=== PATIENT | male | born 1940 | race Caucasian/White ===

== ENCOUNTER 2016-10-14 10:30 | Outpatient (RCR) | payer MEDICARE ==
--- OUTSIDE RECORDS SUMMARY | 2016-07-22 11:11 | XMS REPORT | Continuity of Care Document ---
Author Author [facility] Organization [facility] Address Unknown Phone Unavailable Care Team Providers Care Rodding Anode Worker Name Role Phone Watts, Rosalinda PCP [phone] Source Comments Some departments are not documenting in the electronic medical record. If you do not see the information that you expected, contact Release of Information in the Health Information Management department at [phone] for further assistance in locating additional records.[facility] Active Allergies and Adverse Reactions No Known Allergies Current Medications Prescription Sig. Disp. Refills Start End Date Status Date ondansetron (ZOFRAN) 4 mg Take 1 Tab by mouth every 30 Tab 06/06/20 Active tablet 6 hours as needed for 15 Nausea. rosuvastatin (CRESTOR) 10 Take 1 Tab by mouth 90 Tab 3 06/06/20 Active mg tablet daily. 15 albuterol (VENTOLIN HFA, Inhale 2 Puffs by mouth 3 Inhaler 3 06/06/20 Active PROAIR HFA) 90 every 6 hours as needed 15 mcg/actuation inhaler for Wheezing. fluticasone-salmeterol Inhale 1 Puff by mouth 3 Inhaler 3 06/06/20 Active (ADVAIR DISKUS) 250-50 twice daily. 15 mcg inhalation disk docusate (COLACE) 100 mg Take 1 Cap by mouth daily 180 Cap 3 06/06/20 Active capsule as needed for 15 Constipation. insulin aspart (NOVOLOG) Inject 0-14 Units into 3 box 3 06/06/20 Active 100 unit/mL flexPEN area(s) as directed 15 before meals and at bedtime. melatonin 5 mg tab Take 1 Tab by mouth at 06/06/20 Active bedtime daily. 15 metoclopramide HCl 1 Tab before meals and at 60 Tab 3 08/20/20 Active (REGLAN) 5 mg tablet bedtime. Take 1-2 tabs 15 before meals and at bedtime milk of magnesia (CONC) Take 10 mL by mouth every 06/06/20 Active 2,400 mg/10 mL oral 6 hours as needed. [address](+) Take 1 Cap by mouth twice 90 Cap 3 06/06/20 Active (PRILOSEC) 20 mg capsule daily. 15 polyethylene glycol 3350 Take 17 g by mouth daily 3 Bottle 3 06/06/20 Active (GLYCOLAX; MIRALAX) 17 as needed. 15 gram/dose powder saliva, synthetic Take 1 [place] by mouth or 06/06/20 Active (MOUTHKOTE) spra throat as directed as 15 Needed. sertraline (ZOLOFT) 50 mg Take 1 Tab by mouth at 90 Tab 3 06/06/20 Active tablet bedtime daily. 15 0.9 % SODIUM CHLORIDE Administer 5-20 mL 90 Syringe 0 06/06/20 Active (SODIUM CHLORIDE PF 0.9%) through vein FLUSH TID. 15 0.9 % flush oxyCODONE-acetaminophen Take 1-2 Tabs by mouth 30 Tab 0 06/06/20 Active (PERCOCET; ENDOCET; every 4 hours as needed 15 ROXICET) 5-325 mg tablet for Pain Earliest Fill Date: 06/06/15 insulin lispro(+) Inject 8 Units into Active (HUMALOG) 100 unit/mL area(s) as directed three injection times daily before meals. carvedilol (COREG) 3.125 Take 3.125 mg by mouth Active mg tablet twice daily with meals. lisinopril (PRINIVIL; Take 5 mg by mouth daily. Active ZESTRIL) 5 mg tablet terbinafine(+) (LAMISIL Apply to top of skin as Active AT) 1 % topical cream directed twice daily. methylphenidate (RITALIN; Take 5 mg by mouth twice Active METHYLIN) 5 mg tablet daily before meals mirtazapine (REMERON) 15 Take 15 mg by mouth at Active mg tablet bedtime daily. dronabinol (MARINOL) 2.5 Take 2.5 mg by mouth Active mg capsule twice daily. trimethoprim-sulfamethoxa Take 1 Tab by mouth three 12 Tab 3 07/05/20 Active zole (BACTRIM DS) 160-800 times weekly. 15 mg tablet acyclovir (ZOVIRAX) 200 Take 1 Cap by mouth 30 Cap 2 07/05/20 Active mg capsule daily. 15 methotrexate 2.5 mg Take 7 Tabs by mouth 21 Tab 0 07/09/20 Active tablet every Wednesday. 15 mercaptopurine Take 1.5 Tabs by mouth 20 Tab 0 07/06/20 Active (PURINETHOL) 50 mg tablet every 48 hours. 15 CYTOTOXIC Take on an empty stomach, at least 1 hour before or 2 hours after food. insulin glargine (LANTUS Inject 10 Units into 3 box 3 07/06/20 Active SOLOSTAR) 100 unit/mL (3 area(s) as directed at 15 mL) injection PEN bedtime daily. Restart 10 units Lantus on 07/06 Active Problems Problem Noted Date Cardiomyopathy (HCC) 07/02/2015 CKD (chronic kidney disease) 07/02/2015 Essential hypertension 07/02/2015 COPD (chronic obstructive pulmonary disease) ([facility]) 07/02/2015 ALL (acute lymphoblastic leukemia) ([facility]) 07/01/2015 Hypokalemia 05/18/2015 DIC (disseminated intravascular coagulation) ([facility]) 05/15/2015 IDDM (insulin dependent diabetes mellitus) ([facility]) 05/15/2015 Hypomagnesemia 05/15/2015 GERD (gastroesophageal reflux disease) 05/15/2015 Constipation 05/15/2015 Admission for antineoplastic chemotherapy 05/15/2015 Bilateral edema of lower extremity 05/15/2015 Acute leukemia ([facility]) 05/09/2015 Anemia 05/09/2015 Resolved Problems Problem Noted Date Resolved Date Pancytopenia ([facility]) 05/09/2015 07/02/2015 Social History Tobacco Use Types Packs/Day Years Used Date Former Smoker Cigarettes Quit: 10/18/1974 Smokeless Tobacco: Never Used Alcohol Use Drinks/Week oz/Week Comments Yes moderate Last Filed Vital Signs Vital Sign Reading Time Taken Blood Pressure 108/58 07/05/2015 11:15 AM CDT Pulse 74 07/05/2015 11:15 AM CDT Temperature 36.6 C (97.8 F) 07/05/2015 11:15 AM CDT Respiratory Rate - - Height 1.803 m (5' 10.98") 07/01/2015 4:33 PM CDT Weight 64.411 kg (142 lb) 07/05/2015 3:00 AM CDT Body Mass Index 19.81 07/05/2015 3:00 AM CDT Oxygen Saturation 99% 07/05/2015 11:15 AM CDT Plan of Care Health Maintenance Due Date Last Done Comments Physical (Comprehensive) 1947 Exam Pertussis Vaccine 1951 Tetanus Vaccine 1957 Colorectal Cancer 1990 Screening Shingles Vaccine 2000 Prevnar/Pneumovax (#1) 2005 Influenza Vaccine 06/18/2016 Results from Last 3 Months Not on file
[2016-07-22 11:55] LABS: BASOPHILS % (AUTO) 0 % (0-10); EOSINOPHILS # (AUTO) 0.1 10^3/uL (0.0-0.3); EOSINOPHILS % (AUTO) 1 % (0-10); LYMPHOCYTES # (AUTO) 0.8 X 10^3 (1.0-4.0); LYMPHOCYTES % (AUTO) 15 % (12-44); MEAN CORPUSCULAR HEMOGLOBIN 34 PG (25-34); MEAN CORPUSCULAR HGB CONC 35 G/DL (32-36); MEAN CORPUSCULAR VOLUME 97 FL (80-99); MEAN PLATELET VOLUME 8.6 FL (7.4-10.4); MONOCYTES # (AUTO) 0.8 X 10^3 (0.0-1.0); MONOCYTES % (AUTO) 17 % (0-12); NEUTROPHILS # (AUTO) 3.3 X 10^3 (1.8-7.8); NEUTROPHILS % (AUTO) 66 % (42-75); PLATELET COUNT 151 10^3/uL (130-400); RED BLOOD COUNT 3.46 10^6/uL (4.35-5.85); RED CELL DISTRIBUTION WIDTH 15.2 % (10.0-14.5)
[2016-07-22 12:29] LABS: ANION GAP 12 MMOL/L (5-14); BLOOD UREA NITROGEN 17 MG/DL (7-18); BUN/CREATININE RATIO 16; CARBON DIOXIDE 21 MMOL/L (21-32); CHLORIDE 105 MMOL/L (98-107); CREATININE SERUM 1.07 MG/DL (0.60-1.30); GFR ESTIMATED > 60; GLUCOSE 175 MG/DL (70-105); POTASSIUM 4.4 MMOL/L (3.6-5.0); SODIUM 138 MMOL/L (135-145)
[2016-07-29 09:21] LABS: BASOPHILS % (AUTO) 0 % (0-10); EOSINOPHILS # (AUTO) 0.1 10^3/uL (0.0-0.3); EOSINOPHILS % (AUTO) 2 % (0-10); LYMPHOCYTES # (AUTO) 0.8 X 10^3 (1.0-4.0); LYMPHOCYTES % (AUTO) 21 % (12-44); MEAN CORPUSCULAR HEMOGLOBIN 34 PG (25-34); MEAN CORPUSCULAR HGB CONC 35 G/DL (32-36); MEAN CORPUSCULAR VOLUME 97 FL (80-99); MEAN PLATELET VOLUME 9.3 FL (7.4-10.4); MONOCYTES # (AUTO) 0.7 X 10^3 (0.0-1.0); MONOCYTES % (AUTO) 19 % (0-12); NEUTROPHILS # (AUTO) 2.2 X 10^3 (1.8-7.8); NEUTROPHILS % (AUTO) 58 % (42-75); PLATELET COUNT 156 10^3/uL (130-400); RED BLOOD COUNT 3.46 10^6/uL (4.35-5.85); RED CELL DISTRIBUTION WIDTH 14.9 % (10.0-14.5); WHITE BLOOD COUNT 3.8 10^3/uL (4.3-11.0)
[2016-07-29 09:38] LABS: ALANINE AMINOTRANSFERASE 18 U/L (0-55); ALBUMIN 3.9 G/DL (3.2-4.5); ANION GAP 13 MMOL/L (5-14); ASPARTATE AMINO TRANSFERASE 15 U/L (5-34); BILIRUBIN,TOTAL 0.5 MG/DL (0.1-1.0); BLOOD UREA NITROGEN 16 MG/DL (7-18); BUN/CREATININE RATIO 14; CALCIUM 8.8 MG/DL (8.5-10.1); CARBON DIOXIDE 19 MMOL/L (21-32); CHLORIDE 104 MMOL/L (98-107); CREATININE SERUM 1.12 MG/DL (0.60-1.30); GFR ESTIMATED > 60; GLUCOSE 279 MG/DL (70-105); LACTATE DEHYDROGENASE 178 U/L (125-220); POTASSIUM 4.2 MMOL/L (3.6-5.0); SODIUM 136 MMOL/L (135-145); TOTAL PROTEIN 5.8 G/DL (6.4-8.2)
[2016-08-05 10:11] LABS: BASOPHILS % (AUTO) 0 % (0-10); EOSINOPHILS # (AUTO) 0.1 10^3/uL (0.0-0.3); EOSINOPHILS % (AUTO) 2 % (0-10); LYMPHOCYTES # (AUTO) 0.8 X 10^3 (1.0-4.0); LYMPHOCYTES % (AUTO) 11 % (12-44); MEAN CORPUSCULAR HEMOGLOBIN 34 PG (25-34); MEAN CORPUSCULAR HGB CONC 35 G/DL (32-36); MEAN CORPUSCULAR VOLUME 97 FL (80-99); MEAN PLATELET VOLUME 9.2 FL (7.4-10.4); MONOCYTES # (AUTO) 1.2 X 10^3 (0.0-1.0); MONOCYTES % (AUTO) 17 % (0-12); NEUTROPHILS # (AUTO) 4.8 X 10^3 (1.8-7.8); NEUTROPHILS % (AUTO) 70 % (42-75); PLATELET COUNT 175 10^3/uL (130-400); RED BLOOD COUNT 3.49 10^6/uL (4.35-5.85); WHITE BLOOD COUNT 6.8 10^3/uL (4.3-11.0)
[2016-08-05 11:17] LABS: ANION GAP 4 MMOL/L (5-14); BLOOD UREA NITROGEN 21 MG/DL (7-18); BUN/CREATININE RATIO 19; CALCIUM 8.5 MG/DL (8.5-10.1); CARBON DIOXIDE 30 MMOL/L (21-32); CHLORIDE 102 MMOL/L (98-107); GFR ESTIMATED > 60; GLUCOSE 309 MG/DL (70-105); POTASSIUM 4.6 MMOL/L (3.6-5.0); SODIUM 136 MMOL/L (135-145)
[2016-08-12 10:15] LABS: BASOPHILS % (AUTO) 0 % (0-10); EOSINOPHILS # (AUTO) 0.1 10^3/uL (0.0-0.3); EOSINOPHILS % (AUTO) 1 % (0-10); LYMPHOCYTES # (AUTO) 0.9 X 10^3 (1.0-4.0); LYMPHOCYTES % (AUTO) 14 % (12-44); MEAN CORPUSCULAR HEMOGLOBIN 34 PG (25-34); MEAN CORPUSCULAR HGB CONC 35 G/DL (32-36); MEAN CORPUSCULAR VOLUME 97 FL (80-99); MONOCYTES % (AUTO) 16 % (0-12); NEUTROPHILS # (AUTO) 4.5 X 10^3 (1.8-7.8); NEUTROPHILS % (AUTO) 69 % (42-75); PLATELET COUNT 157 10^3/uL (130-400); RED BLOOD COUNT 3.49 10^6/uL (4.35-5.85); RED CELL DISTRIBUTION WIDTH 15.1 % (10.0-14.5); WHITE BLOOD COUNT 6.4 10^3/uL (4.3-11.0)
[2016-08-12 10:43] LABS: ANION GAP 9 MMOL/L (5-14); BLOOD UREA NITROGEN 16 MG/DL (7-18); BUN/CREATININE RATIO 15; CALCIUM 8.8 MG/DL (8.5-10.1); CARBON DIOXIDE 26 MMOL/L (21-32); CHLORIDE 104 MMOL/L (98-107); CREATININE SERUM 1.08 MG/DL (0.60-1.30); GFR ESTIMATED > 60; GLUCOSE 258 MG/DL (70-105); POTASSIUM 4.6 MMOL/L (3.6-5.0); SODIUM 139 MMOL/L (135-145)
[2016-08-19 10:46] LABS: BASOPHILS % (AUTO) 0 % (0-10); EOSINOPHILS # (AUTO) 0.1 10^3/uL (0.0-0.3); EOSINOPHILS % (AUTO) 1 % (0-10); LYMPHOCYTES % (AUTO) 18 % (12-44); MEAN CORPUSCULAR HEMOGLOBIN 34 PG (25-34); MEAN CORPUSCULAR HGB CONC 35 G/DL (32-36); MEAN CORPUSCULAR VOLUME 97 FL (80-99); MEAN PLATELET VOLUME 8.7 FL (7.4-10.4); MONOCYTES % (AUTO) 17 % (0-12); NEUTROPHILS # (AUTO) 3.6 X 10^3 (1.8-7.8); NEUTROPHILS % (AUTO) 64 % (42-75); PLATELET COUNT 163 10^3/uL (130-400); RED BLOOD COUNT 3.51 10^6/uL (4.35-5.85); RED CELL DISTRIBUTION WIDTH 15.1 % (10.0-14.5); WHITE BLOOD COUNT 5.6 10^3/uL (4.3-11.0)
[2016-08-19 11:19] LABS: ANION GAP 6 MMOL/L (5-14); BLOOD UREA NITROGEN 19 MG/DL (7-18); BUN/CREATININE RATIO 17; CALCIUM 8.8 MG/DL (8.5-10.1); CARBON DIOXIDE 27 MMOL/L (21-32); CHLORIDE 106 MMOL/L (98-107); GFR ESTIMATED > 60; GLUCOSE 151 MG/DL (70-105); POTASSIUM 4.6 MMOL/L (3.6-5.0); SODIUM 139 MMOL/L (135-145)
[2016-08-26 14:34] LABS: BASOPHILS % (AUTO) 0 % (0-10); EOSINOPHILS # (AUTO) 0.1 10^3/uL (0.0-0.3); EOSINOPHILS % (AUTO) 3 % (0-10); LYMPHOCYTES # (AUTO) 1.1 X 10^3 (1.0-4.0); LYMPHOCYTES % (AUTO) 19 % (12-44); MEAN CORPUSCULAR HEMOGLOBIN 34 PG (25-34); MEAN CORPUSCULAR HGB CONC 35 G/DL (32-36); MEAN CORPUSCULAR VOLUME 96 FL (80-99); MEAN PLATELET VOLUME 9.1 FL (7.4-10.4); MONOCYTES # (AUTO) 0.8 X 10^3 (0.0-1.0); MONOCYTES % (AUTO) 14 % (0-12); NEUTROPHILS # (AUTO) 3.4 X 10^3 (1.8-7.8); NEUTROPHILS % (AUTO) 64 % (42-75); PLATELET COUNT 174 10^3/uL (130-400); RED BLOOD COUNT 3.34 10^6/uL (4.35-5.85); WHITE BLOOD COUNT 5.4 10^3/uL (4.3-11.0)
[2016-08-26 15:08] LABS: ALANINE AMINOTRANSFERASE 21 U/L (0-55); ANION GAP 9 MMOL/L (5-14); ASPARTATE AMINO TRANSFERASE 19 U/L (5-34); BILIRUBIN,TOTAL 0.5 MG/DL (0.1-1.0); BLOOD UREA NITROGEN 17 MG/DL (7-18); BUN/CREATININE RATIO 17; CALCIUM 8.5 MG/DL (8.5-10.1); CARBON DIOXIDE 25 MMOL/L (21-32); CHLORIDE 105 MMOL/L (98-107); GFR ESTIMATED > 60; GLUCOSE 109 MG/DL (70-105); LACTATE DEHYDROGENASE 203 U/L (125-220); POTASSIUM 4.1 MMOL/L (3.6-5.0); SODIUM 139 MMOL/L (135-145); TOTAL PROTEIN 6.2 G/DL (6.4-8.2)
[2016-09-02 10:26] LABS: BASOPHILS % (AUTO) 0 % (0-10); EOSINOPHILS # (AUTO) 0.1 10^3/uL (0.0-0.3); EOSINOPHILS % (AUTO) 2 % (0-10); LYMPHOCYTES # (AUTO) 0.7 X 10^3 (1.0-4.0); LYMPHOCYTES % (AUTO) 9 % (12-44); MEAN CORPUSCULAR HEMOGLOBIN 34 PG (25-34); MEAN CORPUSCULAR HGB CONC 36 G/DL (32-36); MEAN CORPUSCULAR VOLUME 95 FL (80-99); MEAN PLATELET VOLUME 8.7 FL (7.4-10.4); MONOCYTES % (AUTO) 14 % (0-12); NEUTROPHILS # (AUTO) 5.2 X 10^3 (1.8-7.8); NEUTROPHILS % (AUTO) 75 % (42-75); PLATELET COUNT 196 10^3/uL (130-400); RED BLOOD COUNT 3.48 10^6/uL (4.35-5.85); RED CELL DISTRIBUTION WIDTH 14.7 % (10.0-14.5)
[2016-09-02 10:50] LABS: ANION GAP 11 MMOL/L (5-14); BLOOD UREA NITROGEN 14 MG/DL (7-18); BUN/CREATININE RATIO 14; CALCIUM 9.1 MG/DL (8.5-10.1); CARBON DIOXIDE 24 MMOL/L (21-32); CHLORIDE 103 MMOL/L (98-107); CREATININE SERUM 1.02 MG/DL (0.60-1.30); GFR ESTIMATED > 60; GLUCOSE 198 MG/DL (70-105); POTASSIUM 4.2 MMOL/L (3.6-5.0); SODIUM 138 MMOL/L (135-145)
[2016-09-09 10:15] LABS: BASOPHILS % (AUTO) 0 % (0-10); EOSINOPHILS % (AUTO) 1 % (0-10); LYMPHOCYTES # (AUTO) 0.6 X 10^3 (1.0-4.0); LYMPHOCYTES % (AUTO) 15 % (12-44); MEAN CORPUSCULAR HEMOGLOBIN 33 PG (25-34); MEAN CORPUSCULAR HGB CONC 34 G/DL (32-36); MEAN CORPUSCULAR VOLUME 97 FL (80-99); MEAN PLATELET VOLUME 8.6 FL (7.4-10.4); MONOCYTES # (AUTO) 0.8 X 10^3 (0.0-1.0); MONOCYTES % (AUTO) 21 % (0-12); NEUTROPHILS # (AUTO) 2.4 X 10^3 (1.8-7.8); NEUTROPHILS % (AUTO) 63 % (42-75); PLATELET COUNT 154 10^3/uL (130-400); RED BLOOD COUNT 3.37 10^6/uL (4.35-5.85); RED CELL DISTRIBUTION WIDTH 15.1 % (10.0-14.5); WHITE BLOOD COUNT 3.9 10^3/uL (4.3-11.0)
[2016-09-09 10:36] LABS: CALCIUM 8.9 MG/DL (8.5-10.1); CREATININE SERUM 1.18 MG/DL (0.60-1.30); POTASSIUM 3.9 MMOL/L (3.6-5.0)
[2016-09-23 11:11] LABS: BASOPHILS % (AUTO) 0 % (0-10); EOSINOPHILS # (AUTO) 0.1 10^3/uL (0.0-0.3); EOSINOPHILS % (AUTO) 2 % (0-10); LYMPHOCYTES # (AUTO) 0.5 X 10^3 (1.0-4.0); LYMPHOCYTES % (AUTO) 9 % (12-44); MEAN CORPUSCULAR HEMOGLOBIN 33 PG (25-34); MEAN CORPUSCULAR HGB CONC 35 G/DL (32-36); MEAN CORPUSCULAR VOLUME 96 FL (80-99); MEAN PLATELET VOLUME 8.5 FL (7.4-10.4); MONOCYTES # (AUTO) 0.7 X 10^3 (0.0-1.0); MONOCYTES % (AUTO) 12 % (0-12); NEUTROPHILS # (AUTO) 4.7 X 10^3 (1.8-7.8); NEUTROPHILS % (AUTO) 77 % (42-75); PLATELET COUNT 210 10^3/uL (130-400); RED BLOOD COUNT 3.19 10^6/uL (4.35-5.85); WHITE BLOOD COUNT 6.1 10^3/uL (4.3-11.0)
[2016-09-23 11:43] LABS: ALANINE AMINOTRANSFERASE 20 U/L (0-55); ALBUMIN 3.9 G/DL (3.2-4.5); ANION GAP 8 MMOL/L (5-14); ASPARTATE AMINO TRANSFERASE 17 U/L (5-34); BILIRUBIN,TOTAL 0.4 MG/DL (0.1-1.0); BLOOD UREA NITROGEN 11 MG/DL (7-18); BUN/CREATININE RATIO 12; CALCIUM 8.6 MG/DL (8.5-10.1); CARBON DIOXIDE 21 MMOL/L (21-32); CHLORIDE 107 MMOL/L (98-107); CREATININE SERUM 0.92 MG/DL (0.60-1.30); GFR ESTIMATED > 60; GLUCOSE 224 MG/DL (70-105); LACTATE DEHYDROGENASE 220 U/L (125-220); POTASSIUM 4.2 MMOL/L (3.6-5.0); SODIUM 136 MMOL/L (135-145); TOTAL PROTEIN 5.8 G/DL (6.4-8.2)
[2016-09-29 10:29] LABS: BASOPHILS % (AUTO) 0 % (0-10); EOSINOPHILS # (AUTO) 0.1 10^3/uL (0.0-0.3); EOSINOPHILS % (AUTO) 1 % (0-10); LYMPHOCYTES # (AUTO) 0.7 X 10^3 (1.0-4.0); LYMPHOCYTES % (AUTO) 10 % (12-44); MEAN CORPUSCULAR HEMOGLOBIN 33 PG (25-34); MEAN CORPUSCULAR HGB CONC 35 G/DL (32-36); MEAN CORPUSCULAR VOLUME 96 FL (80-99); MONOCYTES % (AUTO) 14 % (0-12); NEUTROPHILS # (AUTO) 5.5 X 10^3 (1.8-7.8); NEUTROPHILS % (AUTO) 75 % (42-75); PLATELET COUNT 198 10^3/uL (130-400); RED BLOOD COUNT 3.36 10^6/uL (4.35-5.85); RED CELL DISTRIBUTION WIDTH 14.5 % (10.0-14.5); WHITE BLOOD COUNT 7.3 10^3/uL (4.3-11.0)
[2016-09-29 11:43] LABS: ANION GAP 9 MMOL/L (5-14); BLOOD UREA NITROGEN 20 MG/DL (7-18); BUN/CREATININE RATIO 20; CALCIUM 8.6 MG/DL (8.5-10.1); CARBON DIOXIDE 24 MMOL/L (21-32); CHLORIDE 102 MMOL/L (98-107); GFR ESTIMATED > 60; GLUCOSE 306 MG/DL (70-105); POTASSIUM 4.3 MMOL/L (3.6-5.0); SODIUM 135 MMOL/L (135-145)
[2016-10-07 14:02] LABS: BASOPHILS % (AUTO) 0 % (0-10); EOSINOPHILS # (AUTO) 0.1 10^3/uL (0.0-0.3); EOSINOPHILS % (AUTO) 1 % (0-10); LYMPHOCYTES % (AUTO) 13 % (12-44); MEAN CORPUSCULAR HEMOGLOBIN 33 PG (25-34); MEAN CORPUSCULAR HGB CONC 34 G/DL (32-36); MEAN CORPUSCULAR VOLUME 97 FL (80-99); MONOCYTES # (AUTO) 0.8 X 10^3 (0.0-1.0); MONOCYTES % (AUTO) 10 % (0-12); NEUTROPHILS # (AUTO) 5.7 X 10^3 (1.8-7.8); NEUTROPHILS % (AUTO) 75 % (42-75); PLATELET COUNT 156 10^3/uL (130-400); RED BLOOD COUNT 3.43 10^6/uL (4.35-5.85); RED CELL DISTRIBUTION WIDTH 15.3 % (10.0-14.5); WHITE BLOOD COUNT 7.6 10^3/uL (4.3-11.0)
[2016-10-07 14:59] LABS: ANION GAP 9 MMOL/L (5-14); BLOOD UREA NITROGEN 15 MG/DL (7-18); BUN/CREATININE RATIO 14; CALCIUM 8.8 MG/DL (8.5-10.1); CARBON DIOXIDE 24 MMOL/L (21-32); CHLORIDE 104 MMOL/L (98-107); CREATININE SERUM 1.07 MG/DL (0.60-1.30); GFR ESTIMATED > 60; GLUCOSE 197 MG/DL (70-105); POTASSIUM 4.7 MMOL/L (3.6-5.0); SODIUM 137 MMOL/L (135-145)
[~2016-10-14] VITALS: Ht 180.3 cm; Wt 81.2 kg
[~2016-10-14 10:30] MED LIST: ACYC200C PO; ADV1DS IH; ALBU0.632 IH; ASP325TEC PO; ASP81TEC PO; ASPI-892 PO; ASPI-983 PO; ATOR10TA66 PO; CARV3.12 PO; CARV3.122 PO; CARV6.252 PO; CHOL10003 PO; DOCU-143 PO; DRON2.5C10 PO; FERR-57 PO; FERR256T PO; FEXO-46 PO; FLUT12AE4 IH; FLUT1DIS26 IH; FLUT1DIS3 IH; GABA-486 PO; GUAI473L8 PO; HYDR-34 PO; INSASP10V SQ; INSU100C7 SQ; INSU100I10 SQ; INSU100I14 SQ; INSU100I23 SQ; INSU100V16 SC; INSU100V6 SQ; IPRA3AMP IH; Insulin Human Lispro SC; LISI-556 PO; LOSA25TA21 PO; LYTE60SP MM; MAGN800O PO; MELA1TAB15 PO; MELO-195 PO; MENT71OI TOP; MERC50TA PO; METF-380 PO; METF1000 PO; METH2.5T PO; METH5TAB4 PO; METH5TAB86 PO; METO5TAB2 PO; METO5TAB79 PO; MIRT15TA8 PO; MONT10TA24 PO; MUPI22OI TP; MUPI22OI29 TOP; NF-METANX PO; NFIPRATRNS NSEACH; NORM2DIS3 IV; NORM2DIS3 IVF; NS (IVPB) CANCER CENTER 250 ML IV SCH; NS IV 1000 ML 1,000 ML ONE; NS IV SCH; OMEG1CAP PO; OMEP20CA12 PO; OMEP40CA36 PO; ONDA4TAB11 PO; ONDA4TAB8 PO; ONDN4T PO; OXYC-197 PO; Oxycodone Hcl/Acetaminophen PO; PANT40TA3 PO; POLY17PO6 PO; PRD20T PO; RAMI10CA PO; RMP5C PO; ROSU10TA PO; ROSU10TA12 PO; RT-ALBUINH IH; SERT100T8 PO; SERT50TA9 PO; SUCR1TAB PO; SULF-222 PO; Sertraline Hcl PO; TERB12CR3 TP; TICA90TA PO; Ticagrelor PO; VANCOMYCIN PO; VINCRISTINE SULFATE IV SCH; ZLP5T PO; Zolpidem Tartrate PO
[2016-10-14 11:12] LABS: BASOPHILS % (AUTO) 0 % (0-10); EOSINOPHILS # (AUTO) 0.1 10^3/uL (0.0-0.3); EOSINOPHILS % (AUTO) 2 % (0-10); LYMPHOCYTES # (AUTO) 0.7 X 10^3 (1.0-4.0); LYMPHOCYTES % (AUTO) 13 % (12-44); MEAN CORPUSCULAR HEMOGLOBIN 33 PG (25-34); MEAN CORPUSCULAR HGB CONC 34 G/DL (32-36); MEAN CORPUSCULAR VOLUME 98 FL (80-99); MEAN PLATELET VOLUME 8.4 FL (7.4-10.4); MONOCYTES % (AUTO) 17 % (0-12); NEUTROPHILS # (AUTO) 3.9 X 10^3 (1.8-7.8); NEUTROPHILS % (AUTO) 69 % (42-75); PLATELET COUNT 176 10^3/uL (130-400); RED BLOOD COUNT 3.36 10^6/uL (4.35-5.85); RED CELL DISTRIBUTION WIDTH 15.5 % (10.0-14.5); WHITE BLOOD COUNT 5.6 10^3/uL (4.3-11.0)
[2016-10-14 12:12] LABS: ANION GAP 10 MMOL/L (5-14); BLOOD UREA NITROGEN 12 MG/DL (7-18); BUN/CREATININE RATIO 12; CALCIUM 8.5 MG/DL (8.5-10.1); CARBON DIOXIDE 23 MMOL/L (21-32); CHLORIDE 102 MMOL/L (98-107); CREATININE SERUM 1.01 MG/DL (0.60-1.30); GFR ESTIMATED > 60; GLUCOSE 197 MG/DL (70-105); POTASSIUM 4.4 MMOL/L (3.6-5.0); SODIUM 135 MMOL/L (135-145)
[2016-12-10] MEDS ORDERED: CHOL4PAC3 PO (10:06)
[2016-12-10] MEDS ORDERED: CEFD300C3 PO (10:06)
== END 2016-10-20 | disposition home or self-care (01) ==
LOC: ONC 10:30
PROVIDERS: ATTEND Internal Medicine Hematology & Oncology
DX: Z51.11 Encounter for antineoplastic chemotherapy (principal); C91.00 Acute lymphoblastic leukemia not having achieved remission; D50.9 Iron deficiency anemia, unspecified; Z79.899 Other long term (current) drug therapy
CPT/HCPCS: 36415; 36591; 80048; 80053; 80061; 82043; 83036; 83615; 84439; 84443; 85025; 96409; 99213

== ENCOUNTER 2016-12-03 11:03 | Observation (INO) | payer MEDICARE ==
[~2016-12-03] VITALS: Ht 180.3 cm; Wt 77.1 kg
[~2016-12-03 11:03] MED LIST changes: -NS (IVPB) CANCER CENTER 250 ML IV SCH; -NS IV 1000 ML 1,000 ML ONE; -NS IV SCH; -VINCRISTINE SULFATE IV SCH
[2016-12-03 11:10] VITALS: BP 131/69
--- NOTE | 2016-12-03 11:11 | Short Stay Summary-Hospitalist ---
HPI History of Present Illness: HPI/Chief Complaint CC: Severe cough with wheezing HPI: This is a 76-year-old white male with past medical history of CAD previous bypass and 2004, acute leukemia managed by [facility] nava and Dr. Perez in remission since June 2016 and diabetes mellitus insulin-dependent with COPD the presents to the hospital as a direct admission due to severe coughing and fatigue from the constant cough along with wheezing. He began feeling an upper respiratory illness last Wednesday accompanied with low-grade fever and cough but overall was feeling well except for progressive weakness that resulted in a few falls at home without injury. He was assessed to have mild hypotension likely causing orthostasis along with slight wheezing on exam. He was placed on Advair twice daily along with nebulizer treatments 4 times a day and encouraged by mouth intake to prevent dehydration. He denies any shortness of breath and denied any chest pain. 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) Smoking Status: Former Smoker Former smoker/When Quit: Jul 26, 1985 Recent Hopitalizations: No Immunizations Up To Date Tetanus Booster (TDap): Less than 5yrs Date of Pneumonia Vaccine: Apr 18, 2013 Date of Influenza Vaccine: Jul 29, 2016 Seasonal Allergies Seasonal Allergies: No Surgeries HX Surgeries: Yes (TRIPLE BYPASS, HEART ABLATION, HERNIA REPAIR 05/01 strangulated, LYMPHECTOMY) Surgeries: Abdominal, CABG, Gallbladder, Open Heart Surgery Respiratory Hx Respiratory Disorders: Yes (COPD mild) Respiratory Disorders: COPD, Pneumonia Cardiovascular Hx Cardiovascular Disorders: Yes (CABG, ABLATION, TRPL BYPASS) Cardiac Disorders: Atrial Fibrillation, Coronary Artery Disease, Heart Attack, High Cholesterol, Hypertension Neurological Hx Neurological Disorders: Yes Neurological Disorders: Neuropathy Reproductive System Hx Reproductive Disorders: No Sexually Transmitted Disease: No HIV/AIDS: No Genitourinary Hx Genitourinary Disorders: Yes Genitourinary Disorders: Prostate Problems, Renal Failure Gastrointestinal Hx Gastrointestinal Disorders: Yes Gastrointestinal Disorders: Gastroesophageal Reflux, Gastrointestinal Bleed Musculoskeletal Hx Musculoskeletal Disorders: Yes Musculoskeletal Disorders: Degenerate Disk Disease, Arthritis Endocrine Hx Endocrine Disorders: Yes Endocrine Disorders: Diabetes, Insulin dep HEENT HX ENT Disorders: No Cancer Hx Cancer: Yes (ALL RECEIVED CHEMO AT [facility] -3 WEEKS AGO LAST ONE) Cancer: Leukemia, Skin Psychosocial Hx Psychiatric Problems: No Integumentary HX Skin/Integumentary Disorder: Yes (SKIN CANCER REMOVED) Blood Transfusions Hx Blood Disorders: Yes (LEUKEMIA) Adverse Reaction to a Blood Tr: No Family Medical History Significant Family History: Heart Disease, CAD Over 55 Years Old, Diabetes, Hypertension, Vascular Disease Family Hx: Cardiovascular disease G8 BROTHER Diabetes mellitus 19 MOTHER G8 BROTHER Hypertension 19 MOTHER Review of Systems Constitutional: see HPI malaise weakness EENTM: no symptoms reported Respiratory: cough wheezing Cardiovascular: no symptoms reported Gastrointestinal: no symptoms reported Genitourinary: no symptoms reported Musculoskeletal: no symptoms reported Skin: no symptoms reported Psychiatric/Neurological: No Symptoms Reported All Other Systems Reviewed Negative Unless Noted: Yes Physical Exam Physical Exam Vital Signs Vital Sign - Last 12Hours 12/03/16 11:46 Pulse Ox 92 O2 Flow Rate 1.00 Capillary Refill : General Appearance: No Apparent Distress WD/WN Chronically ill Thin Eyes: Bilateral Eye Normal Inspection, Bilateral Eye PERRL HEENT: PERRL/EOMI Normal ENT Inspection Pharynx Normal Neck: Full Range of Motion Normal Inspection Non Tender Supple Carotid Bruit Respiratory: Chest Non Tender No Accessory Muscle Use No Respiratory Distress Decreased Breath Sounds Wheezing (bilateral lower lobes) Cardiovascular: Regular Rate, Rhythm No Edema No Gallop No JVD No Murmur Normal Peripheral Pulses Gastrointestinal: Normal Bowel Sounds No Organomegaly No Pulsatile Mass Non Tender Soft Back: Normal Inspection No CVA Tenderness No Vertebral Tenderness Extremity: Normal Capillary Refill Normal Inspection Normal Range of Motion Non Tender No Calf Tenderness No Pedal Edema Neurologic/Psychiatric: Alert Oriented x3 No Motor/Sensory Deficits Normal Mood/Affect Skin: Normal Color Warm/Dry Lymphatic: No Adenopathy Short Stay Diagnosis Discharge Diagnosis-Short Stay Admission Diagnosis Assessment: Exacerbation of COPD with wheezing and constant cough with resultant fatigue and weakness Mild hypotension due to dehydration much improved today Acute leukemia in remission since June [address] Perez and [facility] CAD previous bypass and [address] Foreman Diabetes mellitus insulin-dependent out of control due to steroid use currently Hypertension Hyperlipidemia History of skin cancer Final Discharge Diagnosis Assessment: Exacerbation of COPD with wheezing and constant cough with resultant fatigue and weakness Mild hypotension due to dehydration much improved today Acute leukemia in remission since June [address] Perez and [facility] CAD previous bypass and [address] Foreman Diabetes mellitus insulin-dependent out of control due to steroid use currently Hypertension Hyperlipidemia History of skin cancer Conclusion Plan Check chest x-ray IV steroids Insulin Check labs including troponin and BNP Monitor closely Nebulizer treatments Oxygen supplementation ROSALINDA ARENAS DO Dec 03, 2016 11:11
[2016-12-03] MEDS: RT-BUDESONIDE NEBS 0.5 MG/2ML (PULMICORT) AMP INH SCH ×2 (11:15→19:01)
[2016-12-03] MEDS ORDERED: BENZONATATE 100 MG (TESSALON) CAPSULE PO SCH ×2 (11:15→13:00)
--- OUTSIDE RECORDS SUMMARY | 2016-12-03 11:21 | XMS REPORT | Continuity of Care Document ---
Author Author [facility] Organization [facility] Address Unknown Phone Unavailable Care Team Providers Care Breaker Machine Tender Name Role Phone Watts, Rosalinda PCP [phone] Source Comments Some departments are not documenting in the electronic medical record. If you do not see the information that you expected, contact Release of Information in the Health Information Management department at [phone] for further assistance in locating additional records.[facility] Active Allergies and Adverse Reactions No Known [...] 15 gram/dose powder saliva, synthetic Take 1 [place] by mouth or 06/06/20 Active (MOUTHKOTE) spra [...] hypertension 07/02/2015 COPD (chronic obstructive pulmonary disease) ([facility]) 07/02/2015 ALL (acute lymphoblastic leukemia) ([facility]) 07/01/2015 Hypokalemia 05/18/2015 DIC (disseminated intravascular coagulation) ([facility]) 05/15/2015 IDDM (insulin dependent diabetes mellitus) ([facility]) 05/15/2015 Hypomagnesemia 05/15/2015 GERD (gastroesophageal reflux disease) 05/15/2015 Constipation 05/15/2015 Admission for antineoplastic chemotherapy 05/15/2015 Bilateral edema of lower extremity 05/15/2015 Acute leukemia ([facility]) 05/09/2015 Anemia 05/09/2015 Resolved Problems Problem Noted Date Resolved Date Pancytopenia ([facility]) 05/09/2015 07/02/2015 Social History Tobacco Use [...]
[2016-12-03] MEDS: RT-ALBUTEROL/IPRATROPIUM 3 ML (DUONEB) VIAL INH SCH ×4 (11:41→22:47)
[2016-12-03] MEDS ORDERED: methylPREDNISolone 40 MG/ML (Solu-MEDROL) VIAL IV SCH (12:00)
[2016-12-03] MEDS: OSELTAMIVIR 75 MG (TAMIFLU) BOX OF 10 PO SCH ×2 (12:31→21:15)
[2016-12-03 12:42] LABS: BASOPHILS % (AUTO) 0 % (0-10); EOSINOPHILS % (AUTO) 0 % (0-10); LYMPHOCYTES # (AUTO) 0.5 X 10^3 (1.0-4.0); LYMPHOCYTES % (AUTO) 8 % (12-44); MEAN CORPUSCULAR HEMOGLOBIN 34 PG (25-34); MEAN CORPUSCULAR HGB CONC 35 G/DL (32-36); MEAN CORPUSCULAR VOLUME 96 FL (80-99); MEAN PLATELET VOLUME 9.5 FL (7.4-10.4); MONOCYTES # (AUTO) 0.2 X 10^3 (0.0-1.0); MONOCYTES % (AUTO) 3 % (0-12); NEUTROPHILS # (AUTO) 5.1 X 10^3 (1.8-7.8); NEUTROPHILS % (AUTO) 89 % (42-75); PLATELET COUNT 113 10^3/uL (130-400); RED BLOOD COUNT 3.15 10^6/uL (4.35-5.85); RED CELL DISTRIBUTION WIDTH 14.7 % (10.0-14.5); WHITE BLOOD COUNT 5.7 10^3/uL (4.3-11.0)
[2016-12-03] MEDS ORDERED: ONDANSETRON 4 MG (ZOFRAN) ORAL DISSOLVE TAB PO PRN (12:45)
[2016-12-03] MEDS ORDERED: methylPREDNISolone 125 MG (Solu-MEDROL) VIAL IV SCH (12:45)
[2016-12-03 12:59] LABS: ALANINE AMINOTRANSFERASE 40 U/L (0-55); ALBUMIN 3.7 G/DL (3.2-4.5); ANION GAP 13 MMOL/L (5-14); ASPARTATE AMINO TRANSFERASE 28 U/L (5-34); BILIRUBIN,TOTAL 0.8 MG/DL (0.1-1.0); BLOOD UREA NITROGEN 17 MG/DL (7-18); BUN/CREATININE RATIO 16; CALCIUM 8.2 MG/DL (8.5-10.1); CARBON DIOXIDE 20 MMOL/L (21-32); CHLORIDE 100 MMOL/L (98-107); CREATININE SERUM 1.08 MG/DL (0.60-1.30); GFR ESTIMATED > 60; POTASSIUM 4.2 MMOL/L (3.6-5.0); SODIUM 133 MMOL/L (135-145); TOTAL PROTEIN 5.8 G/DL (6.4-8.2)
[2016-12-03 13:00] LABS: ANISOCYTOSIS SLIGHT; BAND NEUTROPHILS 13 %; BASOPHILS % (MANUAL) 1 %; EOSINOPHILS % (MANUAL) 0 %; LYMPHOCYTES % (MANUAL) 5 %; NEUTROPHILS % (MANUAL) 79 %
[2016-12-03 13:02] LABS: GLUCOSE 415 MG/DL (70-105)
[2016-12-03 13:04] LABS: TROPONIN I < 0.30 NG/ML (<0.30)
[2016-12-03] MEDS: inSUlin ASPART (NovoLOG) 1 UNIT/0.01 ML (CHARGE PER UNIT) SC SCH ×2 (13:48→18:23)
--- NOTE | 2016-12-03 14:24 | Pulmonary Consultation ---
History of Present Illness History of Present Illness Date of Consultation 12/03/16 14:18 Date of Admission History of Present Illness 76yo with hx of CAD, acute leukemia (follows with Dr. Perez and [facility]) currently in remission since 07/03 presented as direct admission secondary to worsening, cough, fatigue, wheezing. He has had progressive weakness and did fall at home. After admission pt tested positive for influenza A Allergies and Home Medications Allergies Coded Allergies: No Known Drug Allergies (Verified , 09/19/08) Home Medications Acyclovir 200 Mg Capsule 200 MG PO DAILY (Reported) Aspirin 81 Mg Tablet.dr 30Days 81 MG PO DAILY Prescribed by: ADALBERTO ARENAS on 08/29/16 0624 Atorvastatin Calcium 10 Mg Tablet 10 MG PO DAILY (Reported) Carvedilol 3.125 Mg Tablet 3.125 MG PO BID (Reported) Dronabinol 2.5 Mg Capsule 2.5-5 MG PO BID (Reported) TAKES 1-2 (2.5 MG) CAPSULES Fexofenadine HCl 180 Mg Tablet 180 MG PO DAILY (Reported) Fluticasone/Salmeterol 1 Each Blst.w.dev 1 PUFF IH Q6H PRN PRN SHORTNESS OF BREATH (Reported) Gabapentin 100 Mg Capsule 200 MG PO DAILY (Reported) TAKES 2 (100 MG) CAPSULES Gabapentin 100 Mg Capsule 300 MG PO BID (Reported) TAKES 3 (100 MG) CAPSULES IN THE EVENING AND HS Guaifenesin/Codeine Phosphate 473 Ml Liquid 5 ML PO Q4H PRN PRN CONGESTION ( Reported) Insulin Glargine,Hum.rec.anlog 100 Unit/1 Ml Vial 25 UNITS SQ HS (Reported) Insulin Lispro 100 Unit/1 Ml Insuln.pen 25 UNITS SQ AC (Reported) Ipratropium Remlap 15 Ml Naspr 2 SPRAYS NSEACH TID PRN PRN ALLERGIC RHINITIS ( Reported) Ipratropium/Albuterol Sulfate 3 Ml Ampul.neb 3 ML IH TID PRN PRN SHORTNESS OF BREATH (Reported) Losartan Potassium 25 Mg Tablet 25 MG PO DAILY (Reported) Mercaptopurine 50 Mg Tablet 75 MG PO Q 48 HOURS (Reported) TAKE 1 & 1/2 OF A (50 MG) TABLET Methotrexate Sodium 2.5 Mg Tablet 17.5 MG PO Tu (Reported) TAKES 7 (2.5 MG) TABLETS Methylphenidate HCl 5 Mg Tablet 5 MG PO BID (Reported) Omeprazole 40 Mg Capsule.dr 40 MG PO BID (Reported) Ondansetron 4 Mg Tab.rapdis 4 MG PO Q8H PRN PRN NAUSEA/VOMITING (Reported) Prednisone 20 Mg Tab 100 MG PO UD (Reported) TAKES 5 (20 MG) TABLETS ONCE DAILY AFTER CHEMOTHERAPY Sertraline HCl 100 Mg Tablet 100 MG PO DAILY (Reported) Sucralfate 1 Gm Tablet 1 GM PO QID (Reported) Sulfamethoxazole/Trimethoprim 1 Each Tablet 1 TAB PO MoWeFr (Reported) Past Rjvzsor-Sdwqwf-Fsbswu Hx Patient Social History Smoking Status: Former Smoker Former Smoker/When Quit: Jul 26, 1985 Recent Hopitalizations: No Immunizations Up To Date Tetanus Booster (TDap): Less than 5yrs PED Vaccines UTD: No Date of Pneumonia Vaccine: Apr 18, 2013 Date of Influenza Vaccine: Jul 29, 2016 Seasonal Allergies Seasonal Allergies: No Surgeries HX Surgeries: Yes (TRIPLE BYPASS, HEART ABLATION, HERNIA REPAIR 05/01 strangulated, LYMPHECTOMY) Surgeries: Abdominal, CABG, Gallbladder, Open Heart Surgery Respiratory Hx Respiratory Disorders: Yes (COPD mild) Respiratory Disorders: COPD Cardiovascular Hx Cardiac Disorders: Yes (CABG, ABLATION, TRPL BYPASS) Cardiac Disorders: Atrial Fibrillation, Coronary Artery Disease, Heart Attack, High Cholesterol, Hypertension Neurological Hx Neurological Disorders: Yes Neurological Disorders: Neuropathy Reproductive System Hx Reproductive Disorders: No Sexually Transmitted Disease: No HIV/AIDS: No Genitourinary Hx Genitourinary Disorders: Yes Genitourinary Disorders: Prostate Problems, Renal Failure Gastrointestinal Hx Gastrointestinal Disorders: Yes Gastrointestinal Disorders: Gastroesophageal Reflux, Gastrointestinal Bleed Musculoskeletal Hx Musculoskeletal Disorders: Yes Musculoskeletal Disorders: Degenerate Disk Disease, Arthritis Endocrine Hx Endocrine Disorders: Yes Endocrine Disorders: Diabetes, Insulin dep HEENT HX ENT Disorders: No Cancer Hx Cancer: Yes (ALL RECEIVED CHEMO AT [facility] -3 WEEKS AGO LAST ONE) Cancer: Leukemia, Skin Psychosocial Hx Psychiatric Problems: No Integumentary HX Skin/Integumentary Disorder: Yes (SKIN CANCER REMOVED) Blood Transfusions Hx Blood Disorders: Yes (LEUKEMIA) Adverse Reaction to a Blood Tr: No Family Medical History Significant Family History: Heart Disease, CAD Over 55 Years Old, Diabetes, Hypertension, Vascular Disease Family Medial History: Cardiovascular disease G8 BROTHER Diabetes mellitus 19 MOTHER G8 BROTHER Hypertension 19 MOTHER Exam Exam Vital Signs Date Time Temp Pulse Resp B/P Pulse Ox O2 Delivery O2 Flow Rate FiO2 12/03/16 12:32 94 12/03/16 11:46 92 1.00 General Appearance: No Apparent Distress WD/WN Chronically ill Thin HEENT: PERRL/EOMI Normal ENT Inspection Pharynx Normal Neck: Full Range of Motion Normal Inspection Non Tender Supple Carotid Bruit Respiratory: Chest Non Tender No Accessory Muscle Use No Respiratory Distress Decreased Breath Sounds Wheezing (bilateral lower lobes) Cardiovascular: Regular Rate, Rhythm No Edema No Gallop No JVD No Murmur Normal Peripheral Pulses Extremity: Normal Capillary Refill Normal Inspection Normal Range of Motion Non Tender No Calf Tenderness No Pedal Edema Neurologic/Psychiatric: Alert Oriented x3 No Motor/Sensory Deficits Normal Mood/Affect Skin: Normal Color Warm/Dry Lymphatic: No Adenopathy Results Lab Laboratory Tests 12/03/16 12:31 Assessment/Plan Assessment/Plan Influenza A -Tamiflu COPDAE -Solumedrol, SVNS Dehydration with hypotension ELLE CORMIER DO Dec 03, 2016 14:24
--- NOTE | 2016-12-03 15:34 | Progress Note-Standard ---
Standard Progress Note Progress Notes/Assess & Plan Progress/Assessment & Plan 76-year-old male with history of ALL, status post chemotherapy with the course A of hyper CVAD regimen complicated by deconditioning and heart failure but with a complete response. Patient is on maintenance treatment with modified POMP regimen since the last 18 months. He is admitted to observation today with the increased cough, wheezing, shortness of breath and fatigue since the last few days. Admission screen was positive for influenza A. Patient was started on Tamiflu, inhaled beta agonist and steroids with improvement in his symptoms. No wheezing at the time of evaluation. Continue current therapy. May hold chemotherapy for a few days until his symptoms improve. CBC showing mild thrombocytopenia probably related to the viral infection. We will follow this on an outpatient basis. Keep the regularly scheduled appointment at the cancer center. We will follow patient with you. JORGE CARDENAS Dec 03, 2016 15:34
[2016-12-03] MEDS ORDERED: inSUlin ASPART (NovoLOG) 1 UNIT/0.01 ML (CHARGE PER UNIT) SC SCH (16:00)
--- NOTE | 2016-12-03 16:35 | Diagnostic Imaging Report ---
EXAM: PA and lateral views of the chest. INDICATION: Cough. FINDINGS: The lungs appear clear. The heart size is normal. There is no effusion or pneumothorax. The mediastinum and cornell appear unremarkable. There is an infusion port with the tip at the lower SVC level. The sternotomy wires and post-CABG changes are seen. IMPRESSION: No acute process. Dictated by: Dictated on workstation # [id number]
[2016-12-03 17:23] VITALS: BP 125/78
[2016-12-03] MEDS: methylPREDNISolone 125 MG (Solu-MEDROL) VIAL IV SCH (18:24)
[2016-12-03] MEDS ORDERED: guaiFENesin/CODEINE (ROBITUSSIN AC) 10ML UDC PO PRN (19:00)
[2016-12-03] MEDS ORDERED: inSUlin DETERMIR 1 UNIT/0.01 ML (LEVEMIR) CHARGE PER UNIT SQ SCH (21:00)
[2016-12-03 21:12] VITALS: BP 114/52
[2016-12-03] MEDS: BENZONATATE 100 MG (TESSALON) CAPSULE PO SCH (21:14)
[2016-12-03] MEDS: CARVEDILOL 3.125 MG (COREG) TABLET PO SCH (21:15)
[2016-12-03 23:58] VITALS: BP 139/82
[2016-12-04] MEDS: methylPREDNISolone 125 MG (Solu-MEDROL) VIAL IV SCH
[2016-12-04] MEDS: RT-ALBUTEROL/IPRATROPIUM 3 ML (DUONEB) VIAL INH SCH ×2 (02:14→06:19)
[2016-12-04 03:45] VITALS: BP 120/69
[2016-12-04 04:04] LABS: BASOPHILS % (AUTO) 0 % (0-10); EOSINOPHILS % (AUTO) 0 % (0-10); LYMPHOCYTES # (AUTO) 0.2 X 10^3 (1.0-4.0); LYMPHOCYTES % (AUTO) 5 % (12-44); MEAN CORPUSCULAR HEMOGLOBIN 33 PG (25-34); MEAN CORPUSCULAR HGB CONC 35 G/DL (32-36); MEAN CORPUSCULAR VOLUME 95 FL (80-99); MEAN PLATELET VOLUME 9.4 FL (7.4-10.4); MONOCYTES # (AUTO) 0.1 X 10^3 (0.0-1.0); MONOCYTES % (AUTO) 3 % (0-12); NEUTROPHILS # (AUTO) 3.2 X 10^3 (1.8-7.8); NEUTROPHILS % (AUTO) 92 % (42-75); PLATELET COUNT 125 10^3/uL (130-400); RED BLOOD COUNT 3.06 10^6/uL (4.35-5.85); RED CELL DISTRIBUTION WIDTH 14.4 % (10.0-14.5); WHITE BLOOD COUNT 3.5 10^3/uL (4.3-11.0)
[2016-12-04 04:52] LABS: ALANINE AMINOTRANSFERASE 37 U/L (0-55); ALBUMIN 3.6 G/DL (3.2-4.5); ANION GAP 13 MMOL/L (5-14); ASPARTATE AMINO TRANSFERASE 24 U/L (5-34); BILIRUBIN,TOTAL 0.7 MG/DL (0.1-1.0); BLOOD UREA NITROGEN 18 MG/DL (7-18); BUN/CREATININE RATIO 19; CALCIUM 8.4 MG/DL (8.5-10.1); CARBON DIOXIDE 21 MMOL/L (21-32); CHLORIDE 102 MMOL/L (98-107); CREATININE SERUM 0.97 MG/DL (0.60-1.30); GFR ESTIMATED > 60; GLUCOSE 295 MG/DL (70-105); SODIUM 136 MMOL/L (135-145); TOTAL PROTEIN 5.5 G/DL (6.4-8.2)
[2016-12-04] MEDS: RT-BUDESONIDE NEBS 0.5 MG/2ML (PULMICORT) AMP INH SCH (06:19)
--- NOTE | 2016-12-04 06:34 | Pulmonary Progress Note ---
Subjective Subjective/Events-last exam Pt is feeling much improved today. Exam Exam Vital Signs Date Time Temp Pulse Resp B/P Pulse Ox O2 Delivery O2 Flow Rate FiO2 12/04/16 04:00 1.00 12/04/16 03:45 97.7 85 18 120/69 97 Nasal Cannula 1.00 12/04/16 02:15 96 1.00 12/04/16 00:00 1.00 12/03/16 23:58 98.0 98 20 139/82 98 Nasal Cannula 1.00 12/03/16 22:47 100 1.00 12/03/16 21:12 95 20 114/52 95 Nasal Cannula 1.00 12/03/16 21:00 Nasal Cannula 1.00 12/03/16 20:00 1.00 12/03/16 19:12 100 1.00 12/03/16 19:01 97 1.00 12/03/16 17:23 97.9 71 18 125/78 97 Nasal Cannula 1.00 12/03/16 16:00 1.00 12/03/16 12:32 94 12/03/16 11:46 92 1.00 12/03/16 11:10 98.0 80 18 131/69 94 Room Air 12/03/16 11:10 94 Room Air I & O 12/04/16 07:00 Intake Total 490 ml Balance 490 ml General Appearance: No Apparent Distress WD/WN Chronically ill Thin HEENT: PERRL/EOMI Normal ENT Inspection Pharynx Normal Neck: Full Range of Motion Normal Inspection Non Tender Supple Carotid Bruit Respiratory: Chest Non Tender No Accessory Muscle Use No Respiratory Distress Decreased Breath Sounds Wheezing (bilateral lower lobes) Cardiovascular: Regular Rate, Rhythm No Edema No Gallop No JVD No Murmur Normal Peripheral Pulses Extremity: Normal Capillary Refill Normal Inspection Normal Range of Motion Non Tender No Calf Tenderness No Pedal Edema Neurologic/Psychiatric: Alert Oriented x3 No Motor/Sensory Deficits Normal Mood/Affect Skin: Normal Color Warm/Dry Lymphatic: No Adenopathy Results Lab Laboratory Tests 12/03/16 12:31 12/04/16 03:55 Assessment/Plan Assessment/Plan Influenza A -Tamiflu COPDAE -Solumedrol change to prednisone taper , SVNS Dehydration with hypotension Clinical Quality Measures DVT/VTE Risk/Contraindication: Risk Factor Score Per Nursin RFS Level Per Nursing on Admit: 2=Moderate ELLE CORMIER DO Dec 04, 2016 06:34
[2016-12-04] MEDS: inSUlin ASPART (NovoLOG) 1 UNIT/0.01 ML (CHARGE PER UNIT) SC SCH (06:39)
[2016-12-04] MEDS ORDERED: PANTOPRAZOLE 40 MG (PROTONIX) TAB PO SCH (07:00)
[2016-12-04] MEDS ORDERED: predniSONE 10 MG TAB PO SCH (07:00)
[2016-12-04 08:00] VITALS: BP 118/68
[2016-12-04] MEDS ORDERED: OSLT75C PO (08:06)
[2016-12-04] MEDS ORDERED: GFCD10B PO (08:06)
[2016-12-04] MEDS ORDERED: BENZ100C23 PO (08:06)
[2016-12-04] MEDS ORDERED: PRED10TA22 PO (08:08)
--- NOTE | 2016-12-04 08:14 | Discharge Instructions ---
Discharge Instructions Discharge Medications New, Converted or Re-Newed RX: Transmitted to Pharmacy New Medications: Prednisone (Prednisone) 10 Mg Tab.ds.pk 10 MG PO DAILY Take 6 tabs(60mg)daily,decrease by 1 tab(10MG)daily. #21 PKG Benzonatate (Benzonatate) 100 Mg Capsule 200 MG PO TID #30 CAP Guaifenesin/Codeine (Guaifenesin-Codeine Syrup) 10 Ml Syrp 10 ML PO Q4H PRN COUGH #6 TSP Oseltamivir Phosphate (Tamiflu) 75 Mg Cap 0 EACH PO BID Days 4 CAP Continued Medications: Acyclovir (Acyclovir) 200 Mg Capsule 200 MG PO DAILY CAP Aspirin (Aspirin EC) 81 Mg Tablet.dr 81 MG PO DAILY Days 30 TAB Atorvastatin Calcium (Atorvastatin Calcium) 10 Mg Tablet 10 MG PO DAILY Carvedilol (Carvedilol) 3.125 Mg Tablet 3.125 MG PO BID TAB Dronabinol (Dronabinol) 2.5 Mg Capsule 2.5-5 MG PO BID TAKES 1-2 (2.5 MG) CAPSULES CAP Fexofenadine HCl (Fexofenadine HCl) 180 Mg Tablet 180 MG PO DAILY TAB Fluticasone/Salmeterol (Advair 250-50 Diskus) 1 Each Blst.w.dev 1 PUFF IH Q6H PRN SHORTNESS OF BREATH Gabapentin (Gabapentin) 100 Mg Capsule 200 MG PO DAILY TAKES 2 (100 MG) CAPSULES Gabapentin (Gabapentin) 100 Mg Capsule 300 MG PO BID TAKES 3 (100 MG) CAPSULES IN THE EVENING AND HS CAP Guaifenesin/Codeine Phosphate (Iophen-C Nr Liquid) 473 Ml Liquid 5 ML PO Q4H PRN CONGESTION EA Insulin Glargine,Hum.rec.anlog (Lantus) 100 Unit/1 Ml Vial 25 UNITS SQ HS VIAL Insulin Lispro (Humalog Kwikpen) 100 Unit/1 Ml Insuln.pen 25 UNITS SQ AC EA Ipratropium [place] (Ipratropium [place]) 15 Ml Naspr 2 SPRAYS NSEACH TID PRN ALLERGIC RHINITIS Ipratropium/Albuterol Sulfate (Iprat-Albut 0.5-3(2.5) mg/3 ml) 3 Ml Ampul.neb 3 ML IH TID PRN SHORTNESS OF BREATH EACH Losartan Potassium (Losartan Potassium) 25 Mg Tablet 25 MG PO DAILY Mercaptopurine (Mercaptopurine) 50 Mg Tablet 75 MG PO Q 48 HOURS TAKE 1 & 1/2 OF A (50 MG) TABLET TAB Methotrexate Sodium (Methotrexate) 2.5 Mg Tablet 17.5 MG PO Tu TAKES 7 (2.5 MG) TABLETS TAB Methylphenidate HCl (Ritalin) 5 Mg Tablet 5 MG PO BID TAB Omeprazole (Omeprazole) 40 Mg Capsule.dr 40 MG PO BID Ondansetron (Ondansetron Odt) 4 Mg Tab.rapdis 4 MG PO Q8H PRN NAUSEA/VOMITING TAB Prednisone (Prednisone) 20 Mg Tab 100 MG PO UD TAKES 5 (20 MG) TABLETS ONCE DAILY AFTER CHEMOTHERAPY Sertraline HCl (Sertraline HCl) 100 Mg Tablet 100 MG PO DAILY TAB Sucralfate (Sucralfate) 1 Gm Tablet 1 GM PO QID TAB Sulfamethoxazole/Trimethoprim (Sulfamethoxazole-Tmp Ds Tablet) 1 Each Tablet 1 TAB PO MoWeFr TAB Patient Instructions Goal/Follow Up Appt: PCP in 1 week Activity & Diet Discharge Diet: ADA Diet Activity as Tolerated: Yes ADALBERTO ARENAS DO Dec 04, 2016 08:14
[2016-12-04] MEDS: CARVEDILOL 3.125 MG (COREG) TABLET PO SCH (08:41)
[2016-12-04] MEDS: BENZONATATE 100 MG (TESSALON) CAPSULE PO SCH (08:42)
[2016-12-04] MEDS: OSELTAMIVIR 75 MG (TAMIFLU) BOX OF 10 PO SCH (08:42)
[2016-12-04 08:55] VITALS: BP 118/68
[2016-12-04] MEDS ORDERED: SERTRALINE 100 MG (ZOLOFT) TAB PO SCH (09:00)
[2016-12-04] MEDS ORDERED: ATORVASTATIN 10 MG (LIPITOR) TABLET PO SCH (09:00)
[2016-12-04] MEDS ORDERED: ACYCLOVIR 200 MG CAP (ZOVIRAX) PO SCH (09:00)
[2016-12-04] MEDS ORDERED: ASPIRIN E.C. 81 MG (ECOTRIN) TAB PO SCH (09:00)
--- NOTE | 2016-12-04 10:22 | Discharge Summary-Hospitalist ---
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 Perez and ISRA nava CAD previous bypass and [address] 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 Perez and ISRA nava CAD previous bypass and [address] Foreman Diabetes mellitus insulin-dependent out of control due to steroid use currently Hypertension Hyperlipidemia History of skin cancer Check chest x-ray IV steroids Insulin Check labs including troponin and BNP Monitor closely Nebulizer treatments Oxygen supplementation Reason Hospital Visit/Course CC: Severe cough with wheezing HPI: This is a 76-year-old white male with past medical history of CAD previous bypass and 2003, acute leukemia managed by ISRA nava and Dr. Perez in remission since June 2016 and diabetes mellitus insulin-dependent with COPD the presents to the hospital as a direct admission due to severe coughing and fatigue from the constant cough along with wheezing. He began feeling an upper respiratory illness last Wednesday accompanied with low-grade fever and cough but overall was feeling well except for progressive weakness that resulted in a few falls at home without injury. He was assessed to have mild hypotension likely causing orthostasis along with slight wheezing on exam. He was placed on Advair twice daily along with nebulizer treatments 4 times a day and encouraged by mouth intake to prevent dehydration. He denies any shortness of breath and denied any chest pain. Hospital course: Patient had an uneventful hospital course he was placed in the ICU due to overflow bed shortage but he was started on Tamiflu when influenza a return back positive and he was maintain on IV steroids nebulizer treatments oxygen and cardiology, pulmonology, oncology consultations evaluate the case see no evidence of any more testing that was needed. He felt well enough to be discharged home on prednisone taper dose and he will have close follow-up with primary care provider. Discharge Summary Discharge Physical Examination Allergies: Coded Allergies: No Known Drug Allergies (Verified , 09/19/08) Vitals & I&Os Vital Signs Date Time Temp Pulse Resp B/P Pulse Ox O2 Delivery O2 Flow Rate FiO2 12/04/16 08:55 82 18 118/68 97 12/04/16 08:30 Room Air 12/04/16 08:00 97.2 12/04/16 04:00 1.00 Hospital Course Labs (last 24 hrs) Laboratory Tests 12/03/16 12:31: Alanine Aminotransferase (ALT/SGPT) 40, Albumin 3.7, Alkaline Phosphatase 65, Anion Gap 13, Anisocytosis SLIGHT, Aspartate Amino Transf (AST/SGOT) 28, B-Type Natriuretic Peptide 184.8H, BUN/Creatinine Ratio 16, Band Neutrophils 13, Basophils # (Auto) 0.0, Basophils % (Manual) 1, Basophils (%) (Auto) 0, Blood Urea Nitrogen 17, Calcium Level 8.2L, Carbon Dioxide Level 20L, Chloride Level 100, Creatinine 1.08, Elliptocytes SLIGHT, Eosinophils # (Auto) 0.0, Eosinophils % (Manual) 0, Eosinophils (%) (Auto) 0, Estimat Glomerular Filtration Rate > 60, Glucose Level 415*H, Hematocrit 30L, Hemoglobin 10.6L, Lymphocytes # (Auto) 0.5L, Lymphocytes % (Manual) 5, Lymphocytes (%) (Auto) 8L, Mean Corpuscular Hemoglobin 34, Mean Corpuscular Hemoglobin Concent 35, Mean Corpuscular Volume 96, Mean Platelet Volume 9.5, Monocytes # (Auto) 0.2, Monocytes % (Manual) 2, Monocytes (%) (Auto) 3, Neutrophils # (Auto) 5.1, Neutrophils % (Manual) 79, Neutrophils (%) (Auto) 89H, Platelet Count 113L, Potassium Level 4.2, Red Blood Count 3.15L, Red Cell Distribution Width 14.7H, Sodium Level 133L, Total Bilirubin 0.8, Total Protein 5.8L, Troponin I < 0.30, White Blood Count 5.7 12/03/16 21:10: Glucometer 351H 12/04/16 03:55: Alanine Aminotransferase (ALT/SGPT) 37, Albumin 3.6, Alkaline Phosphatase 60, Anion Gap 13, Aspartate Amino Transf (AST/SGOT) 24, BUN/Creatinine Ratio 19, Basophils # (Auto) 0.0, Basophils (%) (Auto) 0, Blood Urea Nitrogen 18, Calcium Level 8.4L, Carbon Dioxide Level 21, Chloride Level 102, Creatinine 0.97, Eosinophils # (Auto) 0.0, Eosinophils (%) (Auto) 0, Estimat Glomerular Filtration Rate > 60, Glucose Level 295H, Hematocrit 29L, Hemoglobin 10.2L, Lymphocytes # (Auto) 0.2L, Lymphocytes (%) (Auto) 5L, Mean Corpuscular Hemoglobin 33, Mean Corpuscular Hemoglobin Concent 35, Mean Corpuscular Volume 95, Mean Platelet Volume 9.4, Monocytes # (Auto) 0.1, Monocytes (%) (Auto) 3, Neutrophils # (Auto) 3.2, Neutrophils (%) (Auto) 92H, Platelet Count 125L, Potassium Level 4.0, Red Blood Count 3.06L, Red Cell Distribution Width 14.4, Sodium Level 136, Total Bilirubin 0.7, Total Protein 5.5L, White Blood Count 3.5L Microbiology 12/03/16 Influenza Types A,B Antigen (ROSENDA) - Final, Complete Pending Labs Laboratory Tests 12/04/16 03:55: Alanine Aminotransferase (ALT/SGPT) 37, Albumin 3.6, Alkaline Phosphatase 60, Anion Gap 13, Aspartate Amino Transf (AST/SGOT) 24, BUN/Creatinine Ratio 19, Basophils # (Auto) 0.0, Basophils (%) (Auto) 0, Blood Urea Nitrogen 18, Calcium Level 8.4, Carbon Dioxide Level 21, Chloride Level 102, Creatinine 0.97, Eosinophils # (Auto) 0.0, Eosinophils (%) (Auto) 0, Estimat Glomerular Filtration Rate > 60, Glucose Level 295, Hematocrit 29, Hemoglobin 10.2, Lymphocytes # (Auto) 0.2, Lymphocytes (%) (Auto) 5, Mean Corpuscular Hemoglobin 33, Mean Corpuscular Hemoglobin Concent 35, Mean Corpuscular Volume 95, Mean Platelet Volume 9.4, Monocytes # (Auto) 0.1, Monocytes (%) (Auto) 3, Neutrophils # (Auto) 3.2, Neutrophils (%) (Auto) 92, Platelet Count 125, Potassium Level 4.0, Red Blood Count 3.06, Red Cell Distribution Width 14.4, Sodium Level 136, Total Bilirubin 0.7, Total Protein 5.5, White Blood Count 3.5 Discharge Home Medications: Active Scripts Active Prednisone 10 Mg Tab.ds.pk 10 Mg PO DAILY Take 6 tabs(60mg)daily,decrease by 1 tab(10MG)daily. Guaifenesin-Codeine Syrup (Guaifenesin/Codeine) 10 Ml Syrp 10 Ml PO Q4H PRN Benzonatate 100 Mg Capsule 200 Mg PO TID Tamiflu (Oseltamivir Phosphate) 75 Mg Cap 0 Each PO BID 4 Days Aspirin EC (Aspirin) 81 Mg Tablet.dr 81 Mg PO DAILY 30 Days Reported Losartan Potassium 25 Mg Tablet 25 Mg PO DAILY Gabapentin 100 Mg Capsule 300 Mg PO BID TAKES 3 (100 MG) CAPSULES IN THE EVENING AND HS Sucralfate 1 Gm Tablet 1 Gm PO QID Iprat-Albut 0.5-3(2.5) mg/3 ml (Ipratropium/Albuterol Sulfate) 3 Ml Ampul.neb 3 Ml IH TID PRN Ondansetron Odt (Ondansetron) 4 Mg Tab.rapdis 4 Mg PO Q8H PRN Fexofenadine HCl 180 Mg Tablet 180 Mg PO DAILY Iophen-C Nr Liquid (Guaifenesin/Codeine Phosphate) 473 Ml Liquid 5 Ml PO Q4H PRN Ipratropium [place] 15 Ml Naspr 2 Sprays NSEACH TID PRN Advair 250-50 Diskus (Fluticasone/Salmeterol) 1 Each Blst.w.dev 1 Puff IH Q6H PRN Atorvastatin Calcium 10 Mg Tablet 10 Mg PO DAILY Prednisone 20 Mg Tab 100 Mg PO UD TAKES 5 (20 MG) TABLETS ONCE DAILY AFTER CHEMOTHERAPY Omeprazole 40 Mg Capsule.dr 40 Mg PO BID Gabapentin 100 Mg Capsule 200 Mg PO DAILY TAKES 2 (100 MG) CAPSULES Sertraline HCl 100 Mg Tablet 100 Mg PO DAILY Carvedilol 3.125 Mg Tablet 3.125 Mg PO BID Dronabinol 2.5 Mg Capsule 2.5-5 Mg PO BID TAKES 1-2 (2.5 MG) CAPSULES Sulfamethoxazole-Tmp Ds Tablet (Sulfamethoxazole/Trimethoprim) 1 Each Tablet 1 Tab PO MOWEFR Ritalin (Methylphenidate HCl) 5 Mg Tablet 5 Mg PO BID Mercaptopurine 50 Mg Tablet 75 Mg PO Q 48 HOURS TAKE 1 & 1/2 OF A (50 MG) TABLET Methotrexate (Methotrexate Sodium) 2.5 Mg Tablet 17.5 Mg PO TU TAKES 7 (2.5 MG) TABLETS Acyclovir 200 Mg Capsule 200 Mg PO DAILY Lantus (Insulin Glargine,Hum.rec.anlog) 100 Unit/1 Ml Vial 25 Units SQ HS Humalog Kwikpen (Insulin Lispro) 100 Unit/1 Ml Insuln.pen 25 Units SQ AC Instructions to patient/family Please see electonic discharge instructions given to patient. Clinical Quality Measures DVT/VTE Risk/Contraindication: Risk Factor Score Per Nursin RFS Level Per Nursing on Admit: 2=Moderate ADALBERTO ARENAS DO Dec 04, 2016 10:21
[2016-12-10] MEDS ORDERED: CHOL4PAC3 PO (10:06)
[2016-12-10] MEDS ORDERED: CEFD300C3 PO (10:06)
== END 2016-12-04 08:07 | disposition home or self-care (01) ==
LOC: ICU 11:10 → INTOOBSV 11:11 → UNDOADMOB 11:11 → ICU 11:11 → UNDODISOB 12-04 08:55
PROVIDERS: ADMIT Internal Medicine; ATTEND Internal Medicine
DX: J11.1 Influenza due to unidentified influenza virus with other respiratory manifestations (principal); J44.1 Chronic obstructive pulmonary disease with (acute) exacerbation; E86.0 Dehydration; I95.9 Hypotension, unspecified; E11.65 Type 2 diabetes mellitus with hyperglycemia; I25.10 Atherosclerotic heart disease of native coronary artery without angina pectoris; I10 Essential (primary) hypertension; C95.01 Acute leukemia of unspecified cell type, in remission; E78.5 Hyperlipidemia, unspecified; Z79.4 Long term (current) use of insulin; Z95.1 Presence of aortocoronary bypass graft; T38.0X5A Adverse effect of glucocorticoids and synthetic analogues, initial encounter
CPT/HCPCS: 36415; 71020; 80053; 82962; 83880; 84484; 85007; 85025; 85027; 87804; 94640; 94760; 99211; G0378

== ENCOUNTER 2016-12-07 12:39 | Inpatient (IN) | payer MEDICARE ==
[~2016-12-07] VITALS: Ht 180.3 cm; Wt 75.3 kg
[~2016-12-07 12:39] MED LIST changes: +BENZ100C23 PO; +GFCD10B PO; +OSLT75C PO; +PRED10TA22 PO
[2016-12-07] MEDS ORDERED: NS IV 1000 ML 1,000 ML IV SCH (12:46)
[2016-12-07] MEDS ORDERED: RT-LEVALBUTEROL (XOPENEX) 1.25 MG/3 ML NEB NON-FORMULARY INH PRN (13:00)
[2016-12-07] MEDS ORDERED: guaiFENesin/CODEINE (ROBITUSSIN AC) 10ML UDC PO PRN ×2 (13:00→18:15)
[2016-12-07 13:30] VITALS: BP 113/66
--- OUTSIDE RECORDS SUMMARY | 2016-12-07 13:39 | XMS REPORT | Continuity of Care Document ---
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 If you do not see the information that you expected, contact Release of Information in the Health Information Management department at [phone] for further assistance in locating additional records.[facility] Active Allergies and Adverse Reactions No [...] 15 gram/dose powder saliva, synthetic Take 1 [place] by mouth or 06/06/20 Active ([place]) spra [...] hypertension 07/02/2015 COPD (chronic obstructive pulmonary disease) ([facility]) 07/02/2015 ALL (acute lymphoblastic leukemia) ([facility]) 07/01/2015 Hypokalemia 05/18/2015 DIC (disseminated intravascular coagulation) ([facility]) 05/15/2015 IDDM (insulin dependent diabetes mellitus) ([facility]) 05/15/2015 Hypomagnesemia 05/15/2015 GERD (gastroesophageal reflux disease) 05/15/2015 Constipation 05/15/2015 Admission for antineoplastic chemotherapy 05/15/2015 Bilateral edema of lower extremity 05/15/2015 Acute leukemia ([facility]) 05/09/2015 Anemia 05/09/2015 Resolved Problems Problem Noted Date Resolved Date Pancytopenia ([facility]) 05/09/2015 07/02/2015 Social History Tobacco Use Types [...]
[2016-12-07] MEDS ORDERED: RT-ALBUTEROL SULF 2.5 MG/3 ML PRE-MIX VIAL INH PRN (13:45)
[2016-12-07 14:47] LABS: BASOPHILS % (AUTO) 0 % (0-10); EOSINOPHILS % (AUTO) 0 % (0-10); LYMPHOCYTES # (AUTO) 0.3 X 10^3 (1.0-4.0); LYMPHOCYTES % (AUTO) 3 % (12-44); MEAN CORPUSCULAR HEMOGLOBIN 33 PG (25-34); MEAN CORPUSCULAR HGB CONC 35 G/DL (32-36); MEAN CORPUSCULAR VOLUME 96 FL (80-99); MEAN PLATELET VOLUME 9.6 FL (7.4-10.4); MONOCYTES # (AUTO) 0.4 X 10^3 (0.0-1.0); MONOCYTES % (AUTO) 4 % (0-12); NEUTROPHILS # (AUTO) 8.1 X 10^3 (1.8-7.8); NEUTROPHILS % (AUTO) 93 % (42-75); PLATELET COUNT 149 10^3/uL (130-400); RED BLOOD COUNT 3.13 10^6/uL (4.35-5.85); RED CELL DISTRIBUTION WIDTH 14.8 % (10.0-14.5); WHITE BLOOD COUNT 8.7 10^3/uL (4.3-11.0)
[2016-12-07] MEDS: AA 4.25% W/LYTES IN D5W IV SOL 1,000 ML IV SCH ×2 (14:58→23:00)
[2016-12-07 15:17] LABS: ALANINE AMINOTRANSFERASE 30 U/L (0-55); ALBUMIN 3.3 G/DL (3.2-4.5); ANION GAP 13 MMOL/L (5-14); ASPARTATE AMINO TRANSFERASE 13 U/L (5-34); BILIRUBIN,TOTAL 1.3 MG/DL (0.1-1.0); BLOOD UREA NITROGEN 18 MG/DL (7-18); BUN/CREATININE RATIO 16; CALCIUM 8.2 MG/DL (8.5-10.1); CARBON DIOXIDE 23 MMOL/L (21-32); CHLORIDE 96 MMOL/L (98-107); CREATININE SERUM 1.11 MG/DL (0.60-1.30); GFR ESTIMATED > 60; POTASSIUM 3.8 MMOL/L (3.6-5.0); SODIUM 132 MMOL/L (135-145); TOTAL PROTEIN 5.1 G/DL (6.4-8.2)
[2016-12-07 15:19] LABS: GLUCOSE 429 MG/DL (70-105)
[2016-12-07 15:20] LABS: BAND NEUTROPHILS 3 %; LYMPHOCYTES % (MANUAL) 4 %; NEUTROPHILS % (MANUAL) 90 %
[2016-12-07 15:30] LABS: TROPONIN I < 0.30 NG/ML (<0.30)
[2016-12-07] MEDS ORDERED: NS IV 1000 ML 1,000 ML IV ONE (15:45)
--- NOTE | 2016-12-07 16:05 | Diagnostic Imaging Report ---
INDICATION: Cough and dyspnea. PA and lateral views of the chest are obtained with comparison made to study of 12/03/2016. FINDINGS: Heart size and pulmonary vascularity are within normal limits. There has been development of increased density in left parahilar and left basilar regions. There is also probable infiltrate in the right lung base. No pneumothorax identified. Right anterior chest wall port is in stable position. There is no pneumothorax. IMPRESSION: Bilateral airspace disease, greater on the left. This is likely due to bronchopneumonia or pneumonitis. Clinical correlation and radiographic followup are suggested. Dictated by: Dictated on workstation # [id number]
--- NOTE | 2016-12-07 16:16 | Consultation-Cardiology ---
HPI-Cardiology Cardiology Consultation Date of Consultation 12/07/16 Date of Admission Indication: shortness of breath HPI 76-year-old gentleman with history of coronary artery disease, leukemia. Patient presented last week for increasing shortness of breath and cough, diagnosed with influenza A, treated and had mild improvement, discharged to continue his treatment as an outpatient. Return to the hospital at this time for persistent shortness of breath and cough, generalized weakness, fatigue and loss of energy. Denied any chest pain. Denied any palpitation, syncope or near syncopal episodes. Had low-grade fever Home Medications & Allergies Allergies: Coded Allergies: No Known Drug Allergies (Verified , 09/19/08) Home Medication List Reviewed: Yes [id number] Hx Patient Social History Marital Status: Employed/Student: employed Former smoker/When Quit: Jul 26, 1985 Recent Hopitalizations: No Immunizations Up To Date Tetanus Booster (TDap): Less than 5yrs Date of Pneumonia Vaccine: Apr 18, 2013 Date of Influenza Vaccine: Jul 29, 2016 Past Medical History past medical history as discussed below Family Medical History Significant Family History: Heart Disease, CAD Over 55 Years Old, Diabetes, Hypertension, Vascular Disease Family History: 19 MOTHER Diabetes mellitus Hypertension G8 BROTHER Cardiovascular disease Diabetes mellitus Constitutional: see HPI fever malaise weakness EENTM: no symptoms reported see HPI Respiratory: see HPI cough dyspnea on exertionNo hemoptysis, No orthopnea, phlegm short of breathNo stridor, No wheezing, No other Cardiovascular: see HPINo chest pain, edemaNo Hx of Intervention, No palpitations, No syncope, No vascular heart diseas, No other Gastrointestinal: no symptoms reported see HPI Genitourinary: no symptoms reported see HPI Musculoskeletal: no symptoms reported see HPI Skin: no symptoms reported see HPI Psychiatric/Neurological: No Symptoms Reported See HPI Reviewed Test Results Reviewed Test Results Lab Laboratory Tests Test 12/07/16 14:36 Range/Units Alanine Aminotransferase (ALT/SGPT) 30 0-55 U/L Albumin 3.3 3.2-4.5 G/DL Alkaline Phosphatase 59 40-136 U/L Anion Gap 13 5-14 MMOL/L Aspartate Amino Transf (AST/SGOT) 13 5-34 U/L B-Type Natriuretic Peptide 383.0 H <100.0 PG/ML BUN/Creatinine Ratio 16 Band Neutrophils 3 % Basophils # (Auto) 0.0 0.0-0.1 10^3/uL Basophils (%) (Auto) 0 0-10 % Blood Morphology Comment NORMAL Blood Urea Nitrogen 18 7-18 MG/DL Calcium Level 8.2 L 8.5-10.1 MG/DL Carbon Dioxide Level 23 21-32 MMOL/L Chloride Level 96 L 98-107 MMOL/L Creatinine 1.11 0.60-1.30 MG/DL Eosinophils # (Auto) 0.0 0.0-0.3 10^3/uL Eosinophils (%) (Auto) 0 0-10 % Estimat Glomerular Filtration Rate > 60 Glucose Level 429 *H 70-105 MG/DL Hematocrit 30 L 40-54 % Hemoglobin 10.4 L 13.3-17.7 G/DL Lactic Acid Level 4.2 *H 0.5-2.0 MMOL/L Lymphocytes # (Auto) 0.3 L 1.0-4.0 X 10^3 Lymphocytes % (Manual) 4 % Lymphocytes (%) (Auto) 3 L 12-44 % Mean Corpuscular Hemoglobin 33 25-34 PG Mean Corpuscular Hemoglobin Concent 35 32-36 G/DL Mean Corpuscular Volume 96 80-99 FL Mean Platelet Volume 9.6 7.4-10.4 FL Monocytes # (Auto) 0.4 0.0-1.0 X 10^3 Monocytes % (Manual) 3 % Monocytes (%) (Auto) 4 0-12 % Neutrophils # (Auto) 8.1 H 1.8-7.8 X 10^3 Neutrophils % (Manual) 90 % Neutrophils (%) (Auto) 93 H 42-75 % Platelet Count 149 130-400 10^3/uL Potassium Level 3.8 3.6-5.0 MMOL/L Red Blood Count 3.13 L 4.35-5.85 10^6/uL Red Cell Distribution Width 14.8 H 10.0-14.5 % Sodium Level 132 L 135-145 MMOL/L Total Bilirubin 1.3 H 0.1-1.0 MG/DL Total Protein 5.1 L 6.4-8.2 G/DL Troponin I < 0.30 <0.30 NG/ML White Blood Count 8.7 4.3-11.0 10^3/uL Physical Exam Vital Signs Capillary Refill : General Appearance: No Apparent Distress WD/WN Eyes: Bilateral Eye EOMI, Bilateral Eye Normal Inspection, Bilateral Eye PERRL HEENT: PERRL/EOMI TMs Normal Normal ENT Inspection Pharynx Normal Neck: Full Range of Motion Normal Inspection Non Tender Supple Carotid Bruit Respiratory: Chest Non Tender Normal Breath Sounds No Accessory Muscle Use No Respiratory Distress Crackles Cardiovascular: No Edema No Gallop No JVD Normal Peripheral Pulses Systolic Murmur Tachycardia Gastrointestinal: Normal Bowel Sounds No Organomegaly No Pulsatile Mass Non Tender Soft Back: Normal Inspection No CVA Tenderness No Vertebral Tenderness Extremity: Normal Capillary Refill Normal Inspection Normal Range of Motion Non Tender No Calf Tenderness No Pedal Edema Neurologic/Psychiatric: Alert Oriented x3 No Motor/Sensory Deficits Normal Mood/Affect Skin: Normal Color Warm/Dry Lymphatic: No Adenopathy A/P-Cardiology Admission Diagnosis Shortness of breath Coronary artery disease Congestive heart failure, chronic left ventricular systolic dysfunction, ejection fraction 30 percent, ischemic cardiomyopathy Anemia Acute leukemia Assessment/Plan Shortness of breath, cough, worsening, treated for influenza A last week, readmitted for worsening symptoms at this time, managed by primary care physician Dr. Alvarado. Coronary artery disease status post CABG x3 in 2004, patient was hospitalized in April 2014 with non-ST elevation myocardial infarction, underwent cardiac catheterization which showed patent bypass grafts with small vessel disease distally mainly in the LAD system that was receiving retrograde collateral, treated conservatively. Cardiac catheterization was done on November 07, 2014 showing small vessel disease, patent MAHONEY to LAD, vein graft to the circumflex artery and vein graft to the right coronary artery, repeat cardiac catheterization was done in August 2016 showing patent MAHONEY to LAD, vein graft to the obtuse marginal branch with sluggish flow in the [place] circumflex artery, patent vein graft to the right coronary artery, the proximal [place] coronary arteries appear slightly worse with occlusion of the left main, the LAD and diagonal artery are getting collaterals from the right system, EKG showed sinus rhythm with right bundle branch block, small Q wave in V1 and V2, nonspecific T wave abnormality, no significant changes compared to the EKG of August 2016. Continue to monitor at this time. 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 Manzanares , reporting improvement. 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 Congestive heart failure, chronic compensated left ventricle systolic dysfunction, ejection fraction 30 percent. Secondary to coronary artery disease and chemotherapy, mildly elevated BMP, restart home medication and monitor blood pressure closely. Monitor intake and output. Generalized weakness, had influenza A, managed by Dr. Watts Anemia, followed by Dr. Watts and Dr. Perez. 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 Nettles. Hypertension, continue on current medication monitor blood pressure Hyperlipidemia, continue to monitor lipids. Managed by Dr. Watts. Diabetes mellitus, managed and followed by primary care physician. History of atrial flutter status post ablation in 2004, currently in sinus rhythm. Continue to monitor Mild bilateral carotid artery stenosis-most recent carotid duplex done April 2016. Continue to monitor. CHRISTOPHER TANG MD Dec 07, 2016 16:16
[2016-12-07 16:29] VITALS: BP 113/69
[2016-12-07] MEDS: inSUlin ASPART (NovoLOG) 1 UNIT/0.01 ML (CHARGE PER UNIT) SC SCH ×2 (16:30→21:54)
[2016-12-07 16:36] LABS: BILIRUBIN,URINE NEGATIVE (NEGATIVE); KETONES,URINE NEGATIVE (NEGATIVE); LEUKOCYTE ESTERASE ,URINE NEGATIVE (NEGATIVE); NITRITE,URINE NEGATIVE (NEGATIVE); PH,URINE 6.5 (5-9); PROTEIN,URINE 2+ (NEGATIVE); UROBILINOGEN,URINE NORMAL (NORMAL)
--- NOTE | 2016-12-07 16:58 | Pulmonary Consultation ---
History of Present Illness History of Present Illness Date of Consultation 12/07/16 16:56 Date of Admission Reason for Visit: shortness of breath History of Present Illness 76yo presented secondary to CAD, leukemia, and worsening SOB. He was diagnosed with influenza A while in hospital and discharged however he returned to hospital secondary to worsening SOB, weakness, and loss of energy. I am consulted for pulmonary management. Allergies and Home Medications Allergies Coded Allergies: No Known Drug Allergies (Verified , 09/19/08) Home Medications Acyclovir 200 Mg Capsule, 200 MG PO DAILY, (Reported) Aspirin 81 Mg Tablet.dr, 81 MG PO DAILY for 30 Days Prescribed by: ADALBERTO ARENAS on 08/29/16 0624 Atorvastatin Calcium 10 Mg Tablet, 10 MG PO DAILY, (Reported) Benzonatate 100 Mg Capsule, 200 MG PO TID, #30 Prescribed by: ADALBERTO ARENAS on 12/04/16 0806 Carvedilol 3.125 Mg Tablet, 3.125 MG PO BID, (Reported) Cefdinir 300 Mg Capsule, 300 MG PO BID, #12 Prescribed by: ADALBERTO ARENAS on 12/10/16 1006 Cholestyramine/Aspartame 4 Gm Powd.pack, 4 GM PO QID@08,11,16,22, #60 Prescribed by: ADALBERTO ARENAS on 12/10/16 1006 Dronabinol 2.5 Mg Capsule, 2.5-5 MG PO BID, (Reported) TAKES 1-2 (2.5 MG) CAPSULES Fexofenadine HCl 180 Mg Tablet, 180 MG PO DAILY, (Reported) Fluticasone/Salmeterol 1 Each Blst.w.dev, 1 PUFF IH Q6H PRN for SHORTNESS OF BREATH, (Reported) Guaifenesin/Codeine 10 Ml Syrp, 10 ML PO Q4H PRN for COUGH, #6 Prescribed by: ADALBERTO ARENAS on 12/04/16 0806 Insulin Glargine,Hum.rec.anlog 100 Unit/1 Ml Vial, 25 UNITS SQ HS, (Reported) Insulin Lispro 100 Unit/1 Ml Insuln.pen, 25 UNITS SQ AC, (Reported) Ipratropium [place] 15 Ml Naspr, 2 SPRAYS NSEACH TID PRN for ALLERGIC RHINITIS, (Reported) Ipratropium/Albuterol Sulfate 3 Ml Ampul.neb, 3 ML IH TID PRN for SHORTNESS OF BREATH, (Reported) Methylphenidate HCl 5 Mg Tablet, 5 MG PO BID, (Reported) Omeprazole 40 Mg Capsule.dr, 40 MG PO BID, (Reported) Ondansetron 4 Mg Tab.rapdis, 4 MG PO Q8H PRN for NAUSEA/VOMITING, (Reported) Sertraline HCl 100 Mg Tablet, 100 MG PO DAILY, (Reported) Sucralfate 1 Gm Tablet, 1 GM PO QID, (Reported) Past Wxypuus-Btovjk-Aefixz Hx Patient Social History Former Smoker/When Quit: Jul 26, 1985 Recent Hopitalizations: No Immunizations Up To Date Tetanus Booster (TDap): Less than 5yrs PED Vaccines UTD: No Date of Pneumonia Vaccine: Apr 18, 2013 Date of Influenza Vaccine: Jul 29, 2016 Seasonal Allergies Seasonal Allergies: No Surgeries HX Surgeries: Yes (TRIPLE BYPASS, HEART ABLATION, HERNIA REPAIR 05/01 strangulated, LYMPHECTOMY) Surgeries: Abdominal, CABG, Gallbladder, Open Heart Surgery Respiratory Hx Respiratory Disorders: Yes (COPD mild) Respiratory Disorders: COPD Cardiovascular Hx Cardiac Disorders: Yes (CABG, ABLATION, TRPL BYPASS) Cardiac Disorders: Atrial Fibrillation, Coronary Artery Disease, Heart Attack, High Cholesterol, Hypertension Neurological Hx Neurological Disorders: Yes Neurological Disorders: Neuropathy Reproductive System Hx Reproductive Disorders: No Sexually Transmitted Disease: No HIV/AIDS: No Genitourinary Hx Genitourinary Disorders: Yes Genitourinary Disorders: Renal Failure Gastrointestinal Hx Gastrointestinal Disorders: Yes Gastrointestinal Disorders: Gastroesophageal Reflux, Gastrointestinal Bleed Musculoskeletal Hx Musculoskeletal Disorders: Yes Musculoskeletal Disorders: Arthritis Endocrine Hx Endocrine Disorders: Yes Endocrine Disorders: Diabetes, Insulin dep HEENT HX ENT Disorders: No HEENT Disorders: Cataract Cancer Hx Cancer: Yes (ALL RECEIVED CHEMO AT [facility] -3 WEEKS AGO LAST ONE) Cancer: Leukemia, Skin Psychosocial Hx Psychiatric Problems: No Integumentary HX Skin/Integumentary Disorder: Yes (SKIN CANCER REMOVED) Blood Transfusions Hx Blood Disorders: Yes (LEUKEMIA) Adverse Reaction to a Blood Tr: No Family Medical History Significant Family History: Heart Disease, CAD Over 55 Years Old, Diabetes, Hypertension, Vascular Disease Family Medial History: Cardiovascular disease G8 BROTHER Diabetes mellitus 19 MOTHER G8 BROTHER Hypertension 19 MOTHER Review of Systems Constitutional: Chills, Fever, Malaise, Sweats, Weakness Eyes: No: Conjunctivae inflammation, Eyelid inflammation, Other, Pain, Redness , Vision change ENT: No: Ear discharge, Ear pain, Mouth pain, Mouth swelling, Nose congestion, Nose discharge, Nose pain, Other, Throat pain, Throat swelling Respiratory: Cough, Dry, Shortness of breath, Wheezing Cardiovascular: Lt Headedness Neurological: Weakness Exam Exam Vital Signs Date Time Temp Pulse Resp B/P Pulse Ox O2 Delivery O2 Flow Rate FiO2 12/07/16 16:29 99.5 90 22 113/69 95 Nasal Cannula 2.00 General Appearance: No Apparent Distress, WD/WN HEENT: PERRL/EOMI, TMs Normal, Normal ENT Inspection, Pharynx Normal Neck: Full Range of Motion, Normal Inspection, Non Tender, Supple, Carotid Bruit Respiratory: Chest Non Tender, Normal Breath Sounds, No Accessory Muscle Use, No Respiratory Distress, Crackles Cardiovascular: No Edema, No Gallop, No JVD, Normal Peripheral Pulses, Systolic Murmur, Tachycardia Extremity: Normal Capillary Refill, Normal Inspection, Normal Range of Motion, Non Tender, No Calf Tenderness, No Pedal Edema Neurologic/Psychiatric: Alert, Oriented x3, No Motor/Sensory Deficits, Normal Mood/Affect Skin: Normal Color, Warm/Dry Lymphatic: No Adenopathy Results Lab Laboratory Tests 12/07/16 14:36 Assessment/Plan Assessment/Plan -PNA -Add Vanco and zosyn -Summers culture recent influenza -S/P tamiflu Chronic loose stools/diarrhea with hx of Cdiff -Check Cdiff toxin Metabolic acidosis -IVF -monitor ELLE CORMIER DO Dec 07, 2016 16:58
[2016-12-07] MEDS ORDERED: PHARMACY TO DOSE IV SCH (17:00)
[2016-12-07] MEDS ORDERED: PIPERACILLIN/TAZOBACTAM 4.5 GM/NS 100 ML IV NR ×2 (17:00)
[2016-12-07] MEDS ORDERED: PIPERACILLIN/TAZO 4.5 GM VIAL (ZOSYN) IV ONE (17:24)
[2016-12-07] MEDS ORDERED: NS (IVPB) 100 ML ONE (17:24)
[2016-12-07] MEDS ORDERED: VANCOMYCIN 1500 MG/NS 500 ML IVPB IV NR ×2 (17:30)
[2016-12-07] MEDS: methylPREDNISolone 40 MG/ML (Solu-MEDROL) VIAL IV SCH ×2 (17:42→23:55)
[2016-12-07] MEDS: RT-ADVAIR HFA 115/21 MCG PER PUFF IH SCH ×2 (18:04→20:50)
--- NOTE | 2016-12-07 18:11 | History & Physical-Hospitalist ---
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 Molina weir, coronary artery disease previous bypass under Dr. Foreman's care, COPD, diabetes mellitus insulin requiring and recent influenza diagnosis that prompted an observation stay last week on the presents to the stepdown unit with complaints of continuous cough and overall fatigue. He reports these having more diarrhea today and just overall feeling weaker and weaker by the day. He reports appetite loss and low-grade fever. 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 He had almost completed Tamiflu regimen and had been on Advair twice a day along with prednisone taper for wheezing on lung exam noted with the influenza illness. He is currently running a fever and chest x-ray shows bilateral airspace disease consistent with pneumonia with elevated lactic acid of 4.2. He does have a history of multiple outs of C. difficile colitis any time he hasn't antibiotic so antibiotics have been judiciously managed and has not had requirement for the last year and a half. He does have C. difficile colitis history that required vancomycin long taper in May 2015. Cardiology, pulmonology, oncology assistance is much appreciated. 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 smoker/When Quit: Jul 26, 1985 Recent Hopitalizations: No Immunizations Up To Date Tetanus Booster (TDap): Less than 5yrs Date of Pneumonia Vaccine: Apr 18, 2013 Date of Influenza Vaccine: Jul 29, 2016 Seasonal Allergies Seasonal Allergies: No Surgeries HX Surgeries: Yes (TRIPLE BYPASS, HEART ABLATION, HERNIA REPAIR 05/01 strangulated, LYMPHECTOMY) Surgeries: Abdominal, CABG, Gallbladder, Open Heart Surgery Respiratory Hx Respiratory Disorders: Yes (COPD mild) Respiratory Disorders: COPD, Pneumonia Cardiovascular Hx Cardiovascular Disorders: Yes (CABG, ABLATION, TRPL BYPASS) Cardiac Disorders: Atrial Fibrillation, Coronary Artery Disease, Heart Attack, High Cholesterol, Hypertension Neurological Hx Neurological Disorders: Yes Neurological Disorders: Neuropathy Reproductive System Hx Reproductive Disorders: No Sexually Transmitted Disease: No HIV/AIDS: No Genitourinary Hx Genitourinary Disorders: Yes Genitourinary Disorders: Renal Failure Gastrointestinal Hx Gastrointestinal Disorders: Yes Gastrointestinal Disorders: Gastroesophageal Reflux, Gastrointestinal Bleed Musculoskeletal Hx Musculoskeletal Disorders: Yes Musculoskeletal Disorders: Arthritis Endocrine Hx Endocrine Disorders: Yes Endocrine Disorders: Diabetes, Insulin dep HEENT HX ENT Disorders: No HEENT Disorders: Cataract Cancer Hx Cancer: Yes (ALL RECEIVED CHEMO AT [facility] -3 WEEKS AGO LAST ONE) Cancer: Leukemia, Skin Psychosocial Hx Psychiatric Problems: No Integumentary HX Skin/Integumentary Disorder: Yes (SKIN CANCER REMOVED) Blood Transfusions Hx Blood Disorders: Yes (LEUKEMIA) Adverse Reaction to a Blood Tr: No Family Medical History Significant Family History: Heart Disease, CAD Over 55 Years Old, Diabetes, Hypertension, Vascular Disease Family Hx: Cardiovascular disease G8 BROTHER Diabetes mellitus 19 MOTHER G8 BROTHER Hypertension 19 MOTHER Review of Systems Constitutional: see HPI chills dizziness fever malaise weight loss EENTM: no symptoms reported Respiratory: cough dyspnea on exertion short of breath Cardiovascular: no symptoms reported Gastrointestinal: diarrhea loss of appetite nausea vomiting Genitourinary: no symptoms reported Musculoskeletal: no symptoms reported Skin: no symptoms reported Psychiatric/Neurological: No Symptoms Reported All Other Systems Reviewed Negative Unless Noted: Yes Physical Exam Physical Exam Vital Signs Vital Sign - Last 12Hours 12/07/16 12/07/16 13:30 16:00 Temp 100.7 Pulse 65 Resp 18 B/P 113/66 Pulse Ox 92 O2 Delivery Room Air O2 Flow Rate 2.00 Capillary Refill : General Appearance: No Apparent Distress WD/WN Chronically ill Thin Eyes: Bilateral Eye Normal Inspection, Bilateral Eye PERRL HEENT: PERRL/EOMI Normal ENT Inspection Pharynx Normal Neck: Full Range of Motion Normal Inspection Non Tender Supple Carotid Bruit Respiratory: Chest Non Tender No Accessory Muscle Use No Respiratory Distress Crackles Decreased Breath Sounds Wheezing Cardiovascular: Regular Rate, Rhythm No Edema No Gallop No JVD No Murmur Normal Peripheral Pulses Gastrointestinal: Normal Bowel Sounds No Organomegaly No Pulsatile Mass Non Tender Soft Back: Normal Inspection No CVA Tenderness No Vertebral Tenderness Extremity: Normal Capillary Refill Normal Inspection Normal Range of Motion Non Tender No Calf Tenderness No Pedal Edema Neurologic/Psychiatric: Alert Oriented x3 No Motor/Sensory Deficits Normal Mood/Affect Skin: Normal Color Warm/Dry Lymphatic: No Adenopathy Results Results/Procedures Lab Laboratory Tests 12/07/16 14:36 Assessment/Plan Admission Diagnosis Assessment: Bilateral pneumonia in acute leukemia patient with recent influenza infection a with sepsis and elevated lactic acid of 4.2 with fever Overall weakness and debility CAD previous bypass History of atrial flutter status post ablation History of duodenal ulcer bleed Diabetes mellitus insulin requiring chronic anemia GERD History of C. difficile colitis life threatening requiring vancomycin by mouth Neuropathy due to diabetes Hypertension Hyperlipidemia COPD with recent exacerbation requiring steroids Assessment and Plan Antibiotics per Dr. Alvarado Nebulizer treatments Steroids Gentle IV fluids Cardiology consult Luminary consult Oncology consult SCDs Hold chemotherapy Monitor closely due to frail status ROSALINDA ARENAS DO Dec 07, 2016 18:11
[2016-12-07] MEDS ORDERED: NON-FORMULARY MEDICATION 1 EA EA (Fluticasone/Salmeterol (Advair 250-50 Diskus) 1 PUFF) IH PRN (18:15)
[2016-12-07] MEDS ORDERED: ONDANSETRON 4 MG (ZOFRAN) ORAL DISSOLVE TAB PO PRN (18:15)
[2016-12-07] MEDS ORDERED: RT-ADVAIR HFA 115/21 MCG PER PUFF IH PRN (18:45)
[2016-12-07 20:00] VITALS: BP 117/74
[2016-12-07] MEDS ORDERED: NON-FORMULARY MEDICATION 1 EA EA (Omeprazole 40 MG) PO SCH (21:00)
[2016-12-07] MEDS ORDERED: INSULIN GLARGINE HUM REC ANLOG 25 UNIT SQ SCH (21:00)
[2016-12-07] MEDS: BENZONATATE 100 MG (TESSALON) CAPSULE PO SCH (21:53)
[2016-12-07] MEDS: SUCRALFATE 1 GM (CARAFATE) TAB PO SCH (21:53)
[2016-12-07] MEDS: DRONABINOL 2.5 MG (MARINOL) CAP PO SCH (21:54)
[2016-12-07] MEDS: CARVEDILOL 3.125 MG (COREG) TABLET PO SCH (21:54)
[2016-12-07] MEDS: inSUlin DETERMIR 1 UNIT/0.01 ML (LEVEMIR) CHARGE PER UNIT SQ SCH (21:54)
[2016-12-07] MEDS: OSELTAMIVIR 75 MG (TAMIFLU) BOX OF 10 PO SCH (21:54)
[2016-12-07] MEDS: PANTOPRAZOLE 40 MG (PROTONIX) TAB PO SCH (21:54)
[2016-12-07] MEDS: PIPERACILLIN SODIUM/TAZOBACTAM 4.5 GM in NS (IVPB) 100 ML IV SCH (23:55)
[2016-12-08] VITALS (7 sets, daily range): BP systolic 105–124; BP diastolic 46–78
[2016-12-08] MEDS: methylPREDNISolone 40 MG/ML (Solu-MEDROL) VIAL IV SCH ×3 (05:30→21:10)
[2016-12-08] MEDS: VANCOMYCIN 1 GM/NS 250 ML IVPB IV SCH ×4 (05:30→18:40)
[2016-12-08 05:45] LABS: BASOPHILS % (AUTO) 0 % (0-10); EOSINOPHILS % (AUTO) 0 % (0-10); LYMPHOCYTES # (AUTO) 0.2 X 10^3 (1.0-4.0); LYMPHOCYTES % (AUTO) 3 % (12-44); MEAN CORPUSCULAR HEMOGLOBIN 34 PG (25-34); MEAN CORPUSCULAR HGB CONC 36 G/DL (32-36); MEAN CORPUSCULAR VOLUME 96 FL (80-99); MEAN PLATELET VOLUME 9.9 FL (7.4-10.4); MONOCYTES # (AUTO) 0.3 X 10^3 (0.0-1.0); MONOCYTES % (AUTO) 4 % (0-12); NEUTROPHILS % (AUTO) 93 % (42-75); PLATELET COUNT 119 10^3/uL (130-400); RED BLOOD COUNT 2.92 10^6/uL (4.35-5.85); RED CELL DISTRIBUTION WIDTH 14.4 % (10.0-14.5); WHITE BLOOD COUNT 6.4 10^3/uL (4.3-11.0)
[2016-12-08] MEDS ORDERED: INSULIN LISPRO 25 UNIT SQ SCH (06:00)
[2016-12-08 06:05] LABS: ALANINE AMINOTRANSFERASE 28 U/L (0-55); ALBUMIN 2.8 G/DL (3.2-4.5); ANION GAP 9 MMOL/L (5-14); ASPARTATE AMINO TRANSFERASE 14 U/L (5-34); BILIRUBIN,TOTAL 1.1 MG/DL (0.1-1.0); BLOOD UREA NITROGEN 19 MG/DL (7-18); BUN/CREATININE RATIO 21; CALCIUM 8.3 MG/DL (8.5-10.1); CARBON DIOXIDE 25 MMOL/L (21-32); CHLORIDE 101 MMOL/L (98-107); GFR ESTIMATED > 60; GLUCOSE 365 MG/DL (70-105); POTASSIUM 4.3 MMOL/L (3.6-5.0); SODIUM 135 MMOL/L (135-145); TOTAL PROTEIN 4.9 G/DL (6.4-8.2)
[2016-12-08] MEDS: PIPERACILLIN SODIUM/TAZOBACTAM 4.5 GM in NS (IVPB) 100 ML IV SCH ×3 (06:45→23:07)
[2016-12-08] MEDS: PANTOPRAZOLE 40 MG (PROTONIX) TAB PO SCH ×2 (06:52→21:04)
[2016-12-08] MEDS: AA 4.25% W/LYTES IN D5W IV SOL 1,000 ML IV SCH (06:52)
[2016-12-08] MEDS: METHYLPHENIDATE 5 MG (RITALIN) TAB PO SCH ×2 (06:52→15:07)
[2016-12-08] MEDS: LACTOBACILLUS Acidoph/Bulgar (LACTINEX/FLORANEX) TAB PO SCH ×3 (06:53→15:07)
[2016-12-08] MEDS ORDERED: ADVAIR HFA 115/21 MCG INHALER 8 GM IH PRN ×2 (07:30)
--- NOTE | 2016-12-08 07:55 | Pulmonary Progress Note ---
Subjective Subjective/Events-last exam Pt is doing well. No complications noted. Exam Exam Vital Signs Date Time Temp Pulse Resp B/P Pulse Ox O2 Delivery O2 Flow Rate FiO2 12/08/16 07:00 69 12/08/16 04:00 97.0 69 120/68 93 Nasal Cannula 2.00 12/08/16 04:00 95 2.00 12/08/16 01:00 70 12/08/16 00:00 95 2.00 12/08/16 00:00 98.1 79 105/46 97 Nasal Cannula 2.00 12/07/16 21:00 95 Nasal Cannula 2.00 12/07/16 20:52 92 2.00 12/07/16 20:00 99.7 12/07/16 20:00 95 117/74 93 Nasal Cannula 2.00 12/07/16 20:00 95 2.00 12/07/16 19:00 95 12/07/16 16:29 99.5 90 22 113/69 95 Nasal Cannula 2.00 12/07/16 16:00 2.00 12/07/16 13:30 100.7 65 18 113/66 92 Room Air 12/07/16 13:30 Room Air I & O 12/08/16 07:00 Intake Total 3665 ml Output Total 1800 ml Balance 1865 ml General Appearance: No Apparent Distress WD/WN Chronically ill Thin HEENT: PERRL/EOMI Normal ENT Inspection Pharynx Normal Neck: Full Range of Motion Normal Inspection Non Tender Supple Carotid Bruit Respiratory: Chest Non Tender No Accessory Muscle Use No Respiratory Distress Crackles Decreased Breath Sounds Wheezing Cardiovascular: Regular Rate, Rhythm No Edema No Gallop No JVD No Murmur Normal Peripheral Pulses Extremity: Normal Capillary Refill Normal Inspection Normal Range of Motion Non Tender No Calf Tenderness No Pedal Edema Neurologic/Psychiatric: Alert Oriented x3 No Motor/Sensory Deficits Normal Mood/Affect Skin: Normal Color Warm/Dry Lymphatic: No Adenopathy Results Lab Laboratory Tests 12/07/16 14:36 12/08/16 05:30 Assessment/Plan Assessment/Plan -PNA -Vanco and zosyn -Summers culture recent influenza -S/P tamiflu Chronic loose stools/diarrhea with hx of Cdiff -Check Cdiff toxin Metabolic acidosis -IVF -monitor Pt is ok for transfer to 4th floor. Clinical Quality Measures DVT/VTE Risk/Contraindication: Risk Factor Score Per Nursin RFS Level Per Nursing on Admit: 4+=Very High ELLE CORMIER DO Dec 08, 2016 07:55
[2016-12-08] MEDS: ACYCLOVIR 200 MG CAP (ZOVIRAX) PO SCH (09:23)
[2016-12-08] MEDS: ASPIRIN E.C. 81 MG (ECOTRIN) TAB PO SCH (09:23)
[2016-12-08] MEDS: DRONABINOL 2.5 MG (MARINOL) CAP PO SCH ×2 (09:23→21:04)
[2016-12-08] MEDS: BENZONATATE 100 MG (TESSALON) CAPSULE PO SCH ×3 (09:23→21:04)
[2016-12-08] MEDS: CARVEDILOL 3.125 MG (COREG) TABLET PO SCH ×2 (09:23→21:04)
[2016-12-08] MEDS: ATORVASTATIN 10 MG (LIPITOR) TABLET PO SCH (09:23)
[2016-12-08] MEDS: SUCRALFATE 1 GM (CARAFATE) TAB PO SCH ×4 (09:24→21:04)
[2016-12-08] MEDS: inSUlin ASPART (NovoLOG) 1 UNIT/0.01 ML (CHARGE PER UNIT) SC SCH ×7 (09:24→21:00)
[2016-12-08] MEDS: SERTRALINE 100 MG (ZOLOFT) TAB PO SCH (09:24)
[2016-12-08] MEDS: OSELTAMIVIR 75 MG (TAMIFLU) BOX OF 10 PO SCH (09:25)
[2016-12-08] MEDS: ADVAIR HFA 115/21 MCG INHALER 8 GM IH SCH ×2 (09:47→19:49)
--- NOTE | 2016-12-08 10:08 | Progress Note-Hospitalist ---
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 Molina weir, coronary artery disease previous bypass under Dr. Foreman's care, COPD, diabetes mellitus insulin requiring and recent influenza diagnosis that prompted an observation stay last week on the presents to the stepdown unit with complaints of continuous cough and overall fatigue. He reports these having more diarrhea today and just overall feeling weaker and weaker by the day. He reports appetite loss and low-grade fever. 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 He had almost completed Tamiflu regimen and had been on Advair twice a day along with prednisone taper for wheezing on lung exam noted with the influenza illness. He is currently running a fever and chest x-ray shows bilateral airspace disease consistent with pneumonia with elevated lactic acid of 4.2. He does have a history of multiple outs of C. difficile colitis any time he hasn't antibiotic so antibiotics have been judiciously managed and has not had requirement for the last year and a half. He does have C. difficile colitis history that required vancomycin long taper in May 2015. Cardiology, pulmonology, oncology assistance is much appreciated. Progress Notes/Assess & Plan Date Seen 12/08/16 Admission Dx/Process Assessment: Bilateral pneumonia in acute leukemia patient with recent influenza infection a with sepsis and elevated lactic acid of 4.2 with fever Overall weakness and debility CAD previous bypass History of atrial flutter status post ablation History of duodenal ulcer bleed Diabetes mellitus insulin requiring chronic anemia GERD History of C. difficile colitis life threatening requiring vancomycin by mouth Neuropathy due to diabetes Hypertension Hyperlipidemia COPD with recent exacerbation requiring steroids Diagonsis/Assessment & Plan Patient doing much better and breathing better Minimal cough Lactic acid now normal after IV fluids Will help lock fluids completely since he is eating and drinking better Will initiate physical therapy to get out of bed Will have home O2 evaluation Blood sugars high due to steroids Nebulizer treatments tolerated Micro called me about strep in blood cultures No fever, vitals stable, pleasant, oriented 3 Regular rate and rhythm, clear to auscultation bilaterally but mild wheezing is noted in the end expiratory phase in the bases but no tachypnea No edema and normal ROM Laboratory Tests 12/07/16 14:36 12/08/16 05:30 Assessment: Bilateral pneumonia in acute leukemia patient with recent influenza infection a with sepsis and elevated lactic acid of 4.2 with fever now with Strep in BCx Overall weakness and debility CAD previous bypass History of atrial flutter status post ablation History of duodenal ulcer bleed Diabetes mellitus insulin requiring chronic anemia GERD History of C. difficile colitis life threatening requiring vancomycin by mouth Neuropathy due to diabetes Hypertension Hyperlipidemia COPD with recent exacerbation requiring steroids Plan: Antibiotics per Dr. Alvarado Nebulizer treatments Steroids HLIV fluids Cardiology consult Pulmonary consult Oncology consult SCDs Hold chemotherapy Monitor closely due to frail status PT/OT ADALBERTO ARENAS DO Dec 08, 2016 10:08
--- NOTE | 2016-12-08 10:54 | CONSULTATION REPORT ---
DATE OF CONSULTATION: 12/07/2016 The patient is admitted to ICU bed one. PHYSICIAN REQUESTING CONSULTATION: Rosalinda Watts D.O. IMPRESSION: 1. Increasing cough, shortness of breath and fatigue. 2. Bilateral pneumonia by chest x-ray. 3. Recent history of influenza A which was being treated on an outpatient basis. 4. 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 Currently on maintenance treatment with POMP regimen since the last 19 months. 5. History of coronary artery disease and congestive heart failure in the past. RECOMMENDATIONS: 1. Agree with morris cultures including sputum prior to starting antibiotics. 2. Agree with broad spectrum antibiotic coverage because secondary pneumonia and immunocompromised status. 3. Hold chemotherapy until the patient has recovered from the pneumonia. 4. Agree with pulmonary and cardiology consultation for concurrent follow-up. 5. I will follow the patient with you. BRIEF HISTORY: Mr. Watts was admitted to the hospital with worsening cough, shortness of breath and fatigue over the last few days. Last week he was in the hospital under observation for a day and diagnosed with influenza A. He was started on treatment with Tamiflu and discharged home. As his symptoms continued to worsen he was admitted to the hospital today for further evaluation and management. Admission chest x-ray showed new bilateral infiltrates consistent with bronchopneumonia. PAST MEDICAL HISTORY: 1. Significant for recent diagnosis of influenza A as mentioned above. 2. He has a history of acute lymphoblastic leukemia diagnosed in 04/2015 and treated with course A of CVAD regimen. This was complicated by significant deconditioning and heart failure as well as decline in cardiac function. A follow-up bone marrow showed a complete response and he did not proceed with course B but was started on maintenance regimen POMP regimen with 50% dose reduction and has been continuing this for the last 19 months. 3. Other significant medical history includes: Diabetes melitis type II. 4. Coronary artery disease with CABG in 2004. 5. Congestive heart failure with ejection fraction of 30% level. 6. History of thrombosis of the right subclavian vein and unable to tolerate anticoagulation at that time and on observation. 7. Hyperlipidemia. 8. Mild peripheral arterial disease. SOCIAL HISTORY: The patient is and lives in [place], [place]. 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 He has a remote history of tobacco use and quit in 1984. Does not use alcohol now but used alcohol socially. No history of recreational drug use. FAMILY HISTORY: Family history is significant for coronary artery disease in his brother, diabetes mellitus and hypertension in his mother and coronary artery disease in his father. PHYSICAL EXAMINATION: Today showed an elderly male, weak appearing, awake, and oriented and in mild respiratory distress at the time of evaluation. His temperature was 99.5, pulse rate of 90, respirations 22, blood pressure 113/69 with a 95% oxygen saturation on 2 liters of oxygen by nasal cannula. HEENT: Normocephalic, with the slight male pattern baldness. Extraocular muscles intact. Conjunctivae pink, oral mucosa is moist. NECK: Supple with no JVD. No cervical, supraclavicular, or axillary lymphadenopathy palpable. CHEST: Chest who was symmetrical. LUNGS: With fair scattered wheezes bilaterally. No rales heard. CARDIOVASCULAR EXAM: Regular in rate and rhythm. No murmurs or gallops heard. ABDOMEN: Soft, nontender, with no hepatosplenomegaly or other masses palpable. EXTREMITIES: Showed no edema or petechiae. NEUROLOGICAL EXAM: Showed no focal motor deficits. LABORATORY: CBC done today showed WBC 8.7, hemoglobin 10.4 with platelet count of 149,000 and neutrophil count of 8.1 with a lymphocyte count of 0.3. Chemistry panel showed sodium level of 132. The rest of the electrolytes were relatively normal. BUN was 18 and creatinine 1.11 with GFR more than 60 mL per minute. Nonfasting glucose was 429. Total bilirubin was 1.3, with the rest of the liver function studies were within normal limits. BNP was slightly elevated at 383. Lactic acid level was elevated at 4.2. Urinalysis was unremarkable, except for 4+ glucose, 2+ RBC, and 2+ protein. Chest x-ray done today showed bilateral air space disease, greater on the left likely due to bronchopneumonia pneumonitis. Thank you for allowing me to participate in this patient's care. I will follow the patient with you and make appropriate recommendations. Job ID: [id number] Dictated Date: 12/07/2016 17:19:47 Manager Export Date: 12/08/2016 10:31:26/maxim KOROMA
--- NOTE | 2016-12-08 11:36 | Physical Therapy Evaluation ---
PT Evaluation-General Medical Diagnosis Admission Date Dec 07, 2016 at 13:30 Medical Diagnosis: pneumonia Onset Date: Dec 07, 2016 Therapy Diagnosis Therapy Diagnosis: debility Height/Weight Height (Feet): 5 Height (Inches): 11.00 Weight (Pounds): 174 Weight (Ounces): 0.0 Precautions Precautions/Isolations: Standard Precautions, Contact/Enteric Isolation Referral Physician: Mac Reason for Referral: Evaluation/Treatment Medical History Pertinent Medical History: Arthritis, CABG, CAD, COPD, DM, GERD, HTN, ND Additional Medical History pacemaker Current History recent influenza A Reviewed History: Yes Social History Home: Single Level Current Living Status: Spouse Prior/Core FIM Prior Level of Function Functional [place] Measure 0=Not Assessed/NA 4=Minimal Assistance 1=Total Assistance 5=Supervision or Setup 2=Maximal Assistance 6=Modified [place] 3=Moderate Assistance 7=Complete [place] Bed Mobility: 7 Transfers (B,C,W/C) (FIM): 7 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 Pain Numeric Pain Scale: 0-No Pain Location: No Pain Reported Objective Patient Orientation: Normal For Age ROM/Strength ROM Lower Extremities bilateral LE WFL Strenght Lower Extremities right knee flexion/extension 4+/5; hip flexion 4+/5 left knee flexion/extension 4+/5; hip flexion 4+/5 Integumentary/Posture Integumentary refer to nursing notes Bowel Incontinence: No Bladder Incontinence: No Posture WNL Neuromuscular (Tone, Coordination, Reflexes) grossly intact Sensory Vision: Wears Glasses Hearing: Functional Sensation Right Lower Extremit: Impaired Sensation Left Lower Extremity: Impaired Transfers Functional [place] Measure 0=Not Assessed/NA 4=Minimal Assistance 1=Total Assistance 5=Supervision or Setup 2=Maximal Assistance 6=Modified [place] 3=Moderate Assistance 7=Complete [place] Transfers (B, C, W/C) (FIM): 6 Scootin Rollin Supine to/from Sit: 6 Sit to/from Stand: 6 Gait Mode of Locomotion: Walk Anticipated Mode of Locomotion: Walk Gait (FIM): 6 Distance (FIM): 3=150 ft Distance: >600' Gait Level of Assist: 6 Gait Assistive Device: FWW Comments/Gait Description safe and functional Balance Sitting Static: Normal Sitting Dynamic: Normal Standing Static: Normal Standing Dynamic: Normal Assessment/Needs 76 y.o. male, will be seen x 2-3 sessions to assess functional mobility. Patient has had a recent hospital stay, return to home and readmit due to influenza A. Rehab Potential: Good PT Short Term Goals Short Term Goals Time Frame: Dec 11, 2016 Transfers (B,C,W/C) (FIM): 7 Gait (FIM): 7 Distance (FIM): 3=150 ft Gait Level of Assist: 7 Gait Assistive Device: None, FWW PT Plan Treatment/Plan Treatment Plan: Continue Plan of Care Treatment Plan: Education, Functional Activity Tessie, Gait, Therapeutic Exercise Treatment Duration: Dec 11, 2016 # of days/week 4 Visits Per Week: 2-4 Pt/Family Agrees w/Plan: Yes Time/GCodes Time In: 1051 Time Out: 1111 Total Billed Treatment Time: 20 Total Billed Treatment 1 visit EVModC 20 min LUIS CHAPPELL PT Dec 08, 2016 11:36
--- NOTE | 2016-12-08 11:57 | Occupational Therapy Eval ---
OT Evaluation-General/PLF Medical Diagnosis Admission Date Dec 07, 2016 at 13:30 Medical Diagnosis: pneumonia Onset Date: Dec 07, 2016 Therapy Diagnosis Therapy Diagnosis: decreased self care Height/Weight Height (Feet): 5 Height (Inches): 11.00 Weight (Pounds): 174 Weight (Ounces): 0.0 Precautions Precautions/Isolations: Standard Precautions, Contact/Enteric Isolation Safety Interventions: None Referral Physician: Mac Referral Reason: Evaluation/Treatment Medical History Pertinent Medical History: Atrial Fib, Arthritis, CABG, CAD, COPD, DM, GERD, HTN, [place], Neuropathy, Renal Insufficiency Additional Medical History 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 Diarrhea, weakness Reviewed History: Yes Social History Home: Single Level Current Living Status: Spouse ADL-Prior Level of Function ADL PLOF Comments Pt reported he is able to manage all of his basic ADLs at home. 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 No pain mentioned. Appearance Alert, cooperative Mental Status/Objective Patient Orientation: Person, Place, Time, Situation Attachments: IV, Telemetry Current Glasses/Contacts: Yes Upper Extremity ROM Grossly WFL bilat Upper Extremity Strength grossly 5/5 bilat ADL-Treatment Functional [place] Measure 0=Not Assessed/NA 4=Minimal Assistance 1=Total Assistance 5=Supervision or Setup 2=Maximal Assistance 6=Modified [place] 3=Moderate Assistance 7=Complete IndependenceIRFPAI Quality Coding Scale 6 Independent with activity with or without an assistive device 5 Patient requires set up or clean up by helper. Patient completes activity by themselves 4 Supervision or touching assist (CGA). [place] provide cues , steadying assist 3 The helper provides less than half the effort to complete the activity 2 The helper provides more than half the effort to complete the activity 1 Dependent. The helper does all the effort to complete an activity 7 Patient refused to complete or attempt activity 9 The patient did not perform the activity before the current illness or injury 88 Not attempted due to Medical conditions or safety concerns Eating (FIM): 6 (Pt report) Lower Body Dressing (FIM): 6 (Able to doff and don socks and tennis shoes, including tying laces) Toileting (FIM): 6 (Pt reported he has been toileting himself in his room) Toilet/Commode Transfer (FIM): 6 (Pt report) Education OT Patient Education: Purpose of tx/functional activities, Rehab process OT Short Term Goals Short Term Goals Transfers (B,C,W/C) (FIM): 7 OT Education/Plan Problem List/Assessment Assessment: No Skilled OT Needs ID'd Pt has full bila UE strength and is up ad cceilia in his room, managing his basic ADLs. No skilled OT needs identified Discharge Recommendations Plan/Recommendations: Discontinue OT Treatment Plan/Plan of Care No skilled OT needs identified. DC OT. Rehab Potential: Good Time/GCodes Start Time: 11:30 Stop Time: 11:40 Total Time Billed (hr/min): 10 Billed Treatment Time visit, 10 minutes RICHY Tracy OT Dec 08, 2016 11:56
[2016-12-08] MEDS ORDERED: TROUGH ORDER-PHARMACY XX NR (17:00)
--- NOTE | 2016-12-08 17:10 | Progress Note-Standard ---
Standard Progress Note Progress Notes/Assess & Plan Progress/Assessment & Plan 76 year old male admitted with cough and fatigue and diagnosed with bilateral pneumonia. Blood cultures growing G+ cocci probably strep. Pt is on Vancomycin and Zosyn. He is feeling better today. No diarrhea. Eating slightly better. Blood sugars elevated due to steroids. On sliding scale insulin. Vital Sign - Last 12Hours Date Time Temp Pulse Resp B/P Pulse Ox O2 Delivery O2 Flow Rate FiO2 12/08/16 14:00 96.8 78 20 117/58 97 Room Air 12/08/16 11:17 2.00 No JVD. Lungs with better aeration. No wheezes or rales. Rest of the exam stable. Laboratory Tests 12/08/16 05:30 A/P: 1. G+ sepsis probably strep. Currently on Vancomycin and Zosyn. Continue until final culture and sensitivity results available. 2. ALL in remission, Currently on maintanence chemotherapy with POMP regimen. Hold treatment until recovered from sepsis. 3. Thrombocytopenia most likely due to sepsis and treatment. Monitor serially. 4. Continue rest of care as you are doing. JORGE CARDENAS Dec 08, 2016 17:10
[2016-12-08] MEDS: inSUlin DETERMIR 1 UNIT/0.01 ML (LEVEMIR) CHARGE PER UNIT SQ SCH (21:00)
[2016-12-09 00:40] VITALS: BP 102/61
[2016-12-09 04:30] VITALS: BP 119/81
[2016-12-09] MEDS: methylPREDNISolone 40 MG/ML (Solu-MEDROL) VIAL IV SCH ×3 (05:29→21:03)
[2016-12-09] MEDS: VANCOMYCIN 1 GM/NS 250 ML IVPB IV SCH ×2 (05:29)
[2016-12-09 06:00] LABS: BASOPHILS % (AUTO) 0 % (0-10); EOSINOPHILS % (AUTO) 0 % (0-10); LYMPHOCYTES # (AUTO) 0.2 X 10^3 (1.0-4.0); LYMPHOCYTES % (AUTO) 3 % (12-44); MEAN CORPUSCULAR HEMOGLOBIN 33 PG (25-34); MEAN CORPUSCULAR HGB CONC 35 G/DL (32-36); MEAN CORPUSCULAR VOLUME 95 FL (80-99); MEAN PLATELET VOLUME 9.8 FL (7.4-10.4); MONOCYTES # (AUTO) 0.4 X 10^3 (0.0-1.0); MONOCYTES % (AUTO) 4 % (0-12); NEUTROPHILS # (AUTO) 8.1 X 10^3 (1.8-7.8); NEUTROPHILS % (AUTO) 93 % (42-75); PLATELET COUNT 167 10^3/uL (130-400); RED BLOOD COUNT 2.91 10^6/uL (4.35-5.85); RED CELL DISTRIBUTION WIDTH 14.5 % (10.0-14.5); WHITE BLOOD COUNT 8.7 10^3/uL (4.3-11.0)
[2016-12-09] MEDS: inSUlin ASPART (NovoLOG) 1 UNIT/0.01 ML (CHARGE PER UNIT) SC SCH ×6 (06:00→21:05)
[2016-12-09 06:28] LABS: ALANINE AMINOTRANSFERASE 33 U/L (0-55); ALBUMIN 2.8 G/DL (3.2-4.5); ANION GAP 12 MMOL/L (5-14); ASPARTATE AMINO TRANSFERASE 22 U/L (5-34); BILIRUBIN,TOTAL 0.6 MG/DL (0.1-1.0); BLOOD UREA NITROGEN 25 MG/DL (7-18); BUN/CREATININE RATIO 30; CALCIUM 8.2 MG/DL (8.5-10.1); CARBON DIOXIDE 22 MMOL/L (21-32); CHLORIDE 104 MMOL/L (98-107); CREATININE SERUM 0.82 MG/DL (0.60-1.30); GFR ESTIMATED > 60; GLUCOSE 202 MG/DL (70-105); POTASSIUM 3.4 MMOL/L (3.6-5.0); SODIUM 138 MMOL/L (135-145); TOTAL PROTEIN 4.9 G/DL (6.4-8.2)
[2016-12-09] MEDS: METHYLPHENIDATE 5 MG (RITALIN) TAB PO SCH ×2 (06:43→14:32)
[2016-12-09] MEDS: PIPERACILLIN SODIUM/TAZOBACTAM 4.5 GM in NS (IVPB) 100 ML IV SCH (06:44)
[2016-12-09] MEDS: LACTOBACILLUS Acidoph/Bulgar (LACTINEX/FLORANEX) TAB PO SCH ×3 (06:44→16:37)
[2016-12-09] MEDS: PANTOPRAZOLE 40 MG (PROTONIX) TAB PO SCH ×2 (06:44→21:03)
[2016-12-09] MEDS: ADVAIR HFA 115/21 MCG INHALER 8 GM IH SCH ×2 (06:57→19:27)
[2016-12-09 07:55] VITALS: BP 112/61
[2016-12-09] MEDS: ASPIRIN E.C. 81 MG (ECOTRIN) TAB PO SCH (08:22)
[2016-12-09] MEDS: SUCRALFATE 1 GM (CARAFATE) TAB PO SCH ×4 (08:22→21:04)
[2016-12-09] MEDS: CARVEDILOL 3.125 MG (COREG) TABLET PO SCH ×2 (08:22→21:04)
[2016-12-09] MEDS: ACYCLOVIR 200 MG CAP (ZOVIRAX) PO SCH (08:22)
[2016-12-09] MEDS: SERTRALINE 100 MG (ZOLOFT) TAB PO SCH (08:22)
[2016-12-09] MEDS: DRONABINOL 2.5 MG (MARINOL) CAP PO SCH ×2 (08:22→21:04)
[2016-12-09] MEDS: BENZONATATE 100 MG (TESSALON) CAPSULE PO SCH ×3 (08:22→21:03)
[2016-12-09] MEDS: ATORVASTATIN 10 MG (LIPITOR) TABLET PO SCH (08:22)
--- NOTE | 2016-12-09 09:25 | Physical Therapy Daily Note ---
PT Daily Note-Current Subjective Pt visited x 2 this am. Pt in BR upon arrival 1st visit and says "not today". Revisited to encourage participation. Pt agreeable to ther ex in bed. Pt denies pain but says he has diarrhea and does not want to have an accident in the hallway. Mental Status Patient Orientation: Person, Place, Situation Transfers Functional [place] Measure 0=Not Assessed/NA 4=Minimal Assistance 1=Total Assistance 5=Supervision or Setup 2=Maximal Assistance 6=Modified [place] 3=Moderate Assistance 7=Complete IndependenceIRFPAI Quality Coding Scale 6 Independent with activity with or without an assistive device 5 Patient requires set up or clean up by helper. Patient completes activity by themselves 4 Supervision or touching assist (CGA). [place] provide cues , steadying assist 3 The helper provides less than half the effort to complete the activity 2 The helper provides more than half the effort to complete the activity 1 Dependent. The helper does all the effort to complete an activity 7 Patient refused to complete or attempt activity 9 The patient did not perform the activity before the current illness or injury 88 Not attempted due to Medical conditions or safety concerns Exercises Supine Ex: Ankle pumps, Quad Set, Heel Slides, Short Arc Quads, Hip abd/add Supine Reps: 20 Treatments Pt seen for LE ther ex in bed. Assessment Current Status: Fair Progress Pt matthias ther ex well. Pt unable to walk in hallway due to diarrhea at this time. Pt in bed with breakfast and all needs met. Call light in reach. Will increase pt activity level as he tolerates. PT Short Term Goals Short Term Goals Time Frame: Dec 11, 2016 Transfers (B,C,W/C) (FIM): 7 Gait (FIM): 7 Distance (FIM): 3=150 ft Gait Level of Assist: 7 Gait Assistive Device: None, FWW PT Plan Treatment/Plan Treatment Plan: Continue Plan of Care Treatment Plan: Education, Functional Activity Tessie, Gait, Therapeutic Exercise Treatment Duration: Dec 11, 2016 Visits Per Week: 2-4 Time/GCodes Time In: 845 Time Out: 905 Total Billed Treatment Time: 20 Total Billed Treatment 1, ther ex 20 min CHARLETTE GORDILLO CPTA Dec 09, 2016 09:25
--- NOTE | 2016-12-09 10:28 | Cardiology Progress Note ---
Subjective Subjective/Events-last exam Patient is sitting in bed reading. NAD. Denies any CP or dyspnea at this time. Review of Systems General: No Night Sweats, No Fatigue, No Malaise HEENT: No Visual Changes, No Dysphasia, No Sore Throat Pulmonary: Dyspnea Cough Cardiovascular: No: Chest Pain, Palpitations Gastrointestinal: No: Abdominal Pain, Nausea, Vomiting Genitourinary: No Dysuria, No Frequency Musculoskeletal: No: back pain, neck pain Neurological: No: Change in speech, Confusion, Numbness, Weakness Objective-Cardiology Exam Last Set of Vital Signs Vital Signs 12/08/16 12/09/16 12/09/16 12/09/16 11:17 04:30 06:58 08:12 Temp 97.5 Pulse 71 Resp 20 B/P 119/81 Pulse Ox 92 O2 Delivery Room Air O2 Flow Rate 2.00 Capillary Refill : I&O Intake and Output 12/09/16 00:00 Intake Total 3925 ml Output Total 1150 ml Balance 2775 ml Intake Oral 1325 ml IV Total 2600 ml Output Urine Total 1150 ml # Voids 3 # Bowel Movements 3 General: Alert, Oriented X3, Cooperative HEENT: Atraumatic, PERRLA Neck: Supple, No JVD, No Thyromegaly Lungs: Other (exp. wheezing) Heart: Regular Rate, Normal S1, Normal S2 Abdomen: Normal Bowel Sounds, Soft Extremities: No Clubbing, No Cyanosis, No Edema Neuro: Normal Speech, Cranial Nerves 3-12 NL Psych/Mental Status: Mental Status NL, Mood NL Results Lab Laboratory Tests 12/09/16 05:38 A/P-Cardiology Admission Diagnosis Shortness of breath Coronary artery disease Congestive heart failure, chronic left ventricular systolic dysfunction, ejection fraction 30 percent, ischemic cardiomyopathy Anemia Acute leukemia Assessment/Plan Shortness of breath, cough, treated for influenza A last week, readmitted for worsening symptoms at this time, managed by primary care physician Dr. Alvarado. Patient is reporting some improvement at this time. Coronary artery disease status post CABG x3 in 2004, patient was hospitalized in April 2014 with non-ST elevation myocardial infarction, underwent cardiac catheterization which showed patent bypass grafts with small vessel disease distally mainly in the LAD system that was receiving retrograde collateral, treated conservatively. Cardiac catheterization was done on November 07, 2014 showing small vessel disease, patent MAHONEY to LAD, vein graft to the circumflex artery and vein graft to the right coronary artery, repeat cardiac catheterization was done in August 2016 showing patent MAHONEY to LAD, vein graft to the obtuse marginal branch with sluggish flow in the [place] circumflex artery, patent vein graft to the right coronary artery, the proximal [place] coronary arteries appear slightly worse with occlusion of the left main, the LAD and diagonal artery are getting collaterals from the right system, EKG showed sinus rhythm with right bundle branch block, small Q wave in V1 and V2, nonspecific T wave abnormality, no significant changes compared to the EKG of August 2016. Continue to monitor at this time. 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 Manzanares , reporting improvement. 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 Congestive heart failure, chronic compensated left ventricle systolic dysfunction, ejection fraction 30 percent. Secondary to coronary artery disease and chemotherapy, mildly elevated BNP,continue current medications and continue to monitor. Generalized weakness, had influenza A, managed by Dr. Watts Anemia, followed by Dr. Watts and Dr. Perez. 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 Nettles. Hypertension, continue on current medication monitor blood pressure Hyperlipidemia, continue to monitor lipids. Managed by Dr. Watts. Diabetes mellitus, managed and followed by primary care physician. History of atrial flutter status post ablation in 2004, currently in sinus rhythm. Continue to monitor Mild bilateral carotid artery stenosis-most recent carotid duplex done April 2016. Continue to monitor. Clinical Quality Measures DVT/VTE Risk/Contraindication: Risk Factor Score Per Nursin RFS Level Per Nursing on Admit: 4+=Very High BASSAM GRECO Dec 09, 2016 10:28
[2016-12-09] MEDS: cefTRIAXone INJECTION 1,000 MG in NS (IVPB) 50 ML IV SCH (10:39)
--- NOTE | 2016-12-09 11:15 | Progress Note-Hospitalist ---
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 Molina weir, coronary artery disease previous bypass under Dr. Foreman's care, COPD, diabetes mellitus insulin requiring and recent influenza diagnosis that prompted an observation stay last week on the presents to the stepdown unit with complaints of continuous cough and overall fatigue. He reports these having more diarrhea today and just overall feeling weaker and weaker by the day. He reports appetite loss and low-grade fever. 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 He had almost completed Tamiflu regimen and had been on Advair twice a day along with prednisone taper for wheezing on lung exam noted with the influenza illness. He is currently running a fever and chest x-ray shows bilateral airspace disease consistent with pneumonia with elevated lactic acid of 4.2. He does have a history of multiple outs of C. difficile colitis any time he hasn't antibiotic so antibiotics have been judiciously managed and has not had requirement for the last year and a half. He does have C. difficile colitis history that required vancomycin long taper in May 2015. Cardiology, pulmonology, oncology assistance is much appreciated. Progress Notes/Assess & Plan Date Seen 12/09/16 Admission Dx/Process Assessment: Bilateral pneumonia in acute leukemia patient with recent influenza infection a with sepsis and elevated lactic acid of 4.2 with fever Overall weakness and debility CAD previous bypass History of atrial flutter status post ablation History of duodenal ulcer bleed Diabetes mellitus insulin requiring chronic anemia GERD History of C. 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 Pt has little appetite. Pt received 6 units on sliding scale this morning. Patient Interview: Pt states that he has had diarrhea. Dr. Arenas informs pt that his antibiotics have been adjusted. Physical exam stable. Dr. Arenas informs pt that bloodwork is improved. Pt took a shower this morning, and will begin ambulating today. No fever, vitals stable, pleasant, oriented 3 Regular rate and rhythm, clear to auscultation bilaterally but mild wheezing is noted in the end expiratory phase in the bases but no tachypnea No edema and normal ROM Laboratory Tests 12/09/16 05:38 Assessment: Bilateral pneumonia in acute leukemia patient with recent influenza infection a with sepsis and elevated lactic acid of 4.2 with fever now with Strep in BCx now on Rocephin Overall weakness and debility ordered walker use CAD previous bypass History of atrial flutter status post ablation History of duodenal ulcer bleed Diabetes mellitus insulin requiring chronic anemia GERD History of C. difficile colitis life threatening requiring vancomycin by mouth Neuropathy due to diabetes Hypertension Hyperlipidemia COPD with recent exacerbation requiring steroids Plan: Adjust Levemir to 8 units at night with sliding scale Maintain Rocephin Home O2 eval Lactinex Questran 4g QID Nebulizer treatments Steroids HLIV fluids Cardiology consult Pulmonary consult Oncology consult SCDs Hold chemotherapy Monitor closely due to frail status PT/OT Scribed by Maximino Szymanski under the direct supervision of Dr. Arenas. ADALBERTO ARENAS DO Dec 09, 2016 11:15 ADALBERTO ARENAS DO Dec 09, 2016 11:15
--- NOTE | 2016-12-09 11:22 | Pulmonary Progress Note ---
Subjective Subjective/Events-last exam No complications noted. Exam Exam Vital Signs Date Time Temp Pulse Resp B/P Pulse Ox O2 Delivery O2 Flow Rate FiO2 12/09/16 08:12 Room Air 12/09/16 06:58 92 12/09/16 04:30 97.5 71 20 119/81 94 Room Air 12/09/16 00:40 97.8 64 18 102/61 93 Room Air 12/08/16 19:50 97.6 69 19 123/68 93 Room Air 12/08/16 19:49 92 12/08/16 19:40 Room Air 12/08/16 19:00 77 12/08/16 16:15 98.2 73 20 109/63 92 Room Air 12/08/16 14:00 96.8 78 20 117/58 97 Room Air 12/08/16 13:00 74 12/08/16 12:00 97.9 76 20 120/78 94 Room Air I & O 12/09/16 07:00 Intake Total 2975 ml Balance 2975 ml General Appearance: No Apparent Distress WD/WN Chronically ill Thin HEENT: PERRL/EOMI Normal ENT Inspection Pharynx Normal Neck: Full Range of Motion Normal Inspection Non Tender Supple Carotid Bruit Respiratory: Chest Non Tender No Accessory Muscle Use No Respiratory Distress Crackles Decreased Breath Sounds Wheezing Cardiovascular: Regular Rate, Rhythm No Edema No Gallop No JVD No Murmur Normal Peripheral Pulses Extremity: Normal Capillary Refill Normal Inspection Normal Range of Motion Non Tender No Calf Tenderness No Pedal Edema Neurologic/Psychiatric: Alert Oriented x3 No Motor/Sensory Deficits Normal Mood/Affect Skin: Normal Color Warm/Dry Lymphatic: No Adenopathy Results Lab Laboratory Tests 12/07/16 14:36 12/08/16 05:30 12/09/16 05:38 Assessment/Plan Assessment/Plan -PNA- with strep bacteremia -agree with rocephin recent influenza -S/P tamiflu Chronic loose stools/diarrhea with hx of Cdiff -Check Cdiff toxin Metabolic acidosis -IVF -monitor Clinical Quality Measures DVT/VTE Risk/Contraindication: Risk Factor Score Per Nursin RFS Level Per Nursing on Admit: 4+=Very High ELLE CORMIER DO Dec 09, 2016 11:22
[2016-12-09] MEDS: CHOLESTYRAMINE 4 GM (QUESTRAN LITE, PREVALITE) PKT PO SCH ×3 (11:51→21:03)
--- NOTE | 2016-12-09 11:57 | Cardiology Progress Note ---
Subjective Subjective/Events-last exam patient is in bed, feeling better, no chest pain, recovering slowly Review of Systems General: No Chills, No Night Sweats, No Fatigue, No Malaise, No Appetite, No Other HEENT: No Head Aches, No Visual Changes, No Eye Pain, No Ear Pain, No Dysphasia , No Sinus Congestion, No Post Nasal Drip, No Sore Throat, No Other Pulmonary: DyspneaNo Cough, No Pleuritic Chest Pain, No Other Cardiovascular: No: Chest Pain, Edema, Lt Headedness, Orthopnea, Other, Palpitations, Paroxysmal Noc. Dyspnea Objective-Cardiology Exam Last Set of Vital Signs Vital Signs 12/08/16 12/09/16 12/09/16 12/09/16 11:17 04:30 06:58 08:12 Temp 97.5 Pulse 71 Resp 20 B/P 119/81 Pulse Ox 92 O2 Delivery Room Air O2 Flow Rate 2.00 Capillary Refill : I&O Intake and Output 12/09/16 00:00 Intake Total 3925 ml Output Total 1150 ml Balance 2775 ml Intake Oral 1325 ml IV Total 2600 ml Output Urine Total 1150 ml # Voids 3 # Bowel Movements 3 General: Alert, Oriented X3, Cooperative HEENT: Atraumatic, PERRLA Neck: Supple, No JVD, No Thyromegaly Lungs: Other (exp. wheezing) Heart: Regular Rate, Normal S1, Normal S2 Abdomen: Normal Bowel Sounds, Soft Extremities: No Clubbing, No Cyanosis, No Edema Neuro: Normal Speech, Cranial Nerves 3-12 NL Psych/Mental Status: Mental Status NL, Mood NL Results Lab Laboratory Tests 12/09/16 05:38 A/P-Cardiology Admission Diagnosis Shortness of breath Coronary artery disease Congestive heart failure, chronic left ventricular systolic dysfunction, ejection fraction 30 percent, ischemic cardiomyopathy Anemia Acute leukemia Assessment/Plan Shortness of breath, cough, treated for influenza A last week, being treated for pneumonia, improving, managed by Dr Alvarado Coronary artery disease status post CABG x3 in 2004, patient was hospitalized in April 2014 with non-ST elevation myocardial infarction, underwent cardiac catheterization which showed patent bypass grafts with small vessel disease distally mainly in the LAD system that was receiving retrograde collateral, treated conservatively. Cardiac catheterization was done on November 07, 2014 showing small vessel disease, patent MAHONEY to LAD, vein graft to the circumflex artery and vein graft to the right coronary artery, repeat cardiac catheterization was done in August 2016 showing patent MAHONEY to LAD, vein graft to the obtuse marginal branch with sluggish flow in the [place] circumflex artery, patent vein graft to the right coronary artery, the proximal [place] coronary arteries appear slightly worse with occlusion of the left main, the LAD and diagonal artery are getting collaterals from the right system, EKG showed sinus rhythm with right bundle branch block, small Q wave in V1 and V2, nonspecific T wave abnormality, no significant changes compared to the EKG of August 2016. Continue to monitor at this time. 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 Manzanares , reporting improvement. 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 Congestive heart failure, chronic compensated left ventricle systolic dysfunction, ejection fraction 30 percent. Secondary to coronary artery disease and chemotherapy, mildly elevated BNP,continue current medications and continue to monitor. Generalized weakness, had influenza A, managed by Dr. Watts Anemia, followed by Dr. Watts and Dr. Perez. 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 Nettles. Hypertension, continue on current medication monitor blood pressure Hyperlipidemia, continue to monitor lipids. Managed by Dr. Watts. Diabetes mellitus, managed and followed by primary care physician. History of atrial flutter status post ablation in 2004, currently in sinus rhythm. Continue to monitor Mild bilateral carotid artery stenosis-most recent carotid duplex done April 2016. Continue to monitor. Clinical Quality Measures DVT/VTE Risk/Contraindication: Risk Factor Score Per Nursin RFS Level Per Nursing on Admit: 4+=Very High CHRISTOPHER TANG MD Dec 09, 2016 11:57
[2016-12-09 12:00] VITALS: BP 102/64
[2016-12-09 16:00] VITALS: BP 120/67
[2016-12-09 20:00] VITALS: BP 133/61
[2016-12-09] MEDS ORDERED: inSUlin DETERMIR 1 UNIT/0.01 ML (LEVEMIR) CHARGE PER UNIT SQ ONE (20:45)
[2016-12-09] MEDS ORDERED: inSUlin DETERMIR 1 UNIT/0.01 ML (LEVEMIR) CHARGE PER UNIT SQ SCH (21:00)
[2016-12-10] VITALS: BP 126/58
[2016-12-10 04:00] VITALS: BP 131/65
[2016-12-10] MEDS: CARVEDILOL 3.125 MG (COREG) TABLET PO SCH (06:30)
[2016-12-10] MEDS: METHYLPHENIDATE 5 MG (RITALIN) TAB PO SCH (06:30)
[2016-12-10] MEDS: PANTOPRAZOLE 40 MG (PROTONIX) TAB PO SCH (06:30)
[2016-12-10] MEDS: DRONABINOL 2.5 MG (MARINOL) CAP PO SCH (06:30)
[2016-12-10] MEDS: LACTOBACILLUS Acidoph/Bulgar (LACTINEX/FLORANEX) TAB PO SCH ×2 (06:30→11:18)
[2016-12-10] MEDS: SUCRALFATE 1 GM (CARAFATE) TAB PO SCH ×2 (06:30→11:18)
[2016-12-10] MEDS: methylPREDNISolone 40 MG/ML (Solu-MEDROL) VIAL IV SCH (06:31)
[2016-12-10] MEDS: BENZONATATE 100 MG (TESSALON) CAPSULE PO SCH (06:31)
[2016-12-10] MEDS: inSUlin ASPART (NovoLOG) 1 UNIT/0.01 ML (CHARGE PER UNIT) SC SCH ×2 (06:31→11:14)
[2016-12-10] MEDS ORDERED: SERTRALINE 100 MG (ZOLOFT) TAB PO SCH (07:00)
[2016-12-10] MEDS ORDERED: ASPIRIN E.C. 81 MG (ECOTRIN) TAB PO SCH (07:00)
[2016-12-10] MEDS ORDERED: ACYCLOVIR 200 MG CAP (ZOVIRAX) PO SCH (07:00)
[2016-12-10] MEDS ORDERED: ATORVASTATIN 10 MG (LIPITOR) TABLET PO SCH (07:00)
--- NOTE | 2016-12-10 07:17 | Cardiology Progress Note ---
Subjective Subjective/Events-last exam Patient is sitting in a chair, feeling better, no new complaint Review of Systems General: No Chills, No Night Sweats, No Fatigue, No Malaise, No Appetite, No Other HEENT: No Head Aches, No Visual Changes, No Eye Pain, No Ear Pain, No Dysphasia , No Sinus Congestion, No Post Nasal Drip, No Sore Throat, No Other Pulmonary: No Dyspnea, No Cough, No Pleuritic Chest Pain, No Other Cardiovascular: No: Chest Pain, Edema, Lt Headedness, Orthopnea, Other, Palpitations, Paroxysmal Noc. Dyspnea Objective-Cardiology Exam Last Set of Vital Signs Vital Signs 12/08/16 12/10/16 11:17 04:00 Temp 97.7 Pulse 66 Resp 18 B/P 131/65 Pulse Ox 94 O2 Delivery Room Air O2 Flow Rate 2.00 Capillary Refill : I&O Intake and Output 12/10/16 00:00 Intake Total 1810 ml Balance 1810 ml Intake Oral 1310 ml IV Total 500 ml # Voids 4 # Bowel Movements 3 General: Alert, Oriented X3, Cooperative HEENT: Atraumatic, PERRLA Neck: Supple, No JVD, No Thyromegaly Lungs: Other (exp. wheezing) Heart: Regular Rate, Normal S1, Normal S2 Abdomen: Normal Bowel Sounds, Soft Extremities: No Clubbing, No Cyanosis, No Edema Neuro: Normal Speech, Cranial Nerves 3-12 NL Psych/Mental Status: Mental Status NL, Mood NL Results Lab Laboratory Tests Test 12/09/16 08:36 12/09/16 11:28 12/09/16 16:39 12/09/16 20:26 Range/Units Glucometer 217 H 282 H 365 H 438 *H 70-110 MG/DL Test 12/10/16 05:47 Range/Units Glucometer 279 H 70-110 MG/DL A/P-Cardiology Admission Diagnosis Shortness of breath Coronary artery disease Congestive heart failure, chronic left ventricular systolic dysfunction, ejection fraction 30 percent, ischemic cardiomyopathy Anemia Acute leukemia Assessment/Plan Shortness of breath, cough, treated for influenza A last week, being treated for pneumonia, improving, managed by Dr Alvarado Coronary artery disease status post CABG x3 in 2004, patient was hospitalized in April 2014 with non-ST elevation myocardial infarction, underwent cardiac catheterization which showed patent bypass grafts with small vessel disease distally mainly in the LAD system that was receiving retrograde collateral, treated conservatively. Cardiac catheterization was done on November 07, 2014 showing small vessel disease, patent MAHONEY to LAD, vein graft to the circumflex artery and vein graft to the right coronary artery, repeat cardiac catheterization was done in August 2016 showing patent MAHONEY to LAD, vein graft to the obtuse marginal branch with sluggish flow in the [place] circumflex artery, patent vein graft to the right coronary artery, the proximal [place] coronary arteries appear slightly worse with occlusion of the left main, the LAD and diagonal artery are getting collaterals from the right system, EKG showed sinus rhythm with right bundle branch block, small Q wave in V1 and V2, nonspecific T wave abnormality, no significant changes compared to the EKG of August 2016. Continue to monitor at this time. 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 Manzanares , reporting improvement. 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 Congestive heart failure, chronic compensated left ventricle systolic dysfunction, ejection fraction 30 percent. Secondary to coronary artery disease and chemotherapy, mildly elevated BNP,continue current medications and continue to monitor. Generalized weakness, had influenza A, managed by Dr. Watts Anemia, followed by Dr. Watts and Dr. Perez. 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 Nettles. Hypertension, continue on current medication monitor blood pressure Hyperlipidemia, continue to monitor lipids. Managed by Dr. Watts. Diabetes mellitus, hyperglycemia, managed and followed by primary care physician. History of atrial flutter status post ablation in 2004, currently in sinus rhythm. Continue to monitor Mild bilateral carotid artery stenosis-most recent carotid duplex done April 2016. Continue to monitor. Clinical Quality Measures DVT/VTE Risk/Contraindication: Risk Factor Score Per Nursin RFS Level Per Nursing on Admit: 4+=Very High CHRISTOPHER TANG MD Dec 10, 2016 07:17
[2016-12-10 07:31] LABS: BASOPHILS % (AUTO) 0 % (0-10); EOSINOPHILS % (AUTO) 0 % (0-10); LYMPHOCYTES # (AUTO) 0.3 X 10^3 (1.0-4.0); LYMPHOCYTES % (AUTO) 4 % (12-44); MEAN CORPUSCULAR HEMOGLOBIN 33 PG (25-34); MEAN CORPUSCULAR HGB CONC 34 G/DL (32-36); MEAN CORPUSCULAR VOLUME 95 FL (80-99); MEAN PLATELET VOLUME 9.7 FL (7.4-10.4); MONOCYTES # (AUTO) 0.5 X 10^3 (0.0-1.0); MONOCYTES % (AUTO) 7 % (0-12); NEUTROPHILS # (AUTO) 6.5 X 10^3 (1.8-7.8); NEUTROPHILS % (AUTO) 89 % (42-75); PLATELET COUNT 205 10^3/uL (130-400); RED CELL DISTRIBUTION WIDTH 14.5 % (10.0-14.5); WHITE BLOOD COUNT 7.3 10^3/uL (4.3-11.0)
[2016-12-10 07:56] LABS: ALANINE AMINOTRANSFERASE 38 U/L (0-55); ALBUMIN 2.7 G/DL (3.2-4.5); ANION GAP 9 MMOL/L (5-14); ASPARTATE AMINO TRANSFERASE 15 U/L (5-34); BILIRUBIN,TOTAL 0.4 MG/DL (0.1-1.0); BLOOD UREA NITROGEN 25 MG/DL (7-18); BUN/CREATININE RATIO 29; CALCIUM 8.3 MG/DL (8.5-10.1); CARBON DIOXIDE 23 MMOL/L (21-32); CHLORIDE 106 MMOL/L (98-107); CREATININE SERUM 0.87 MG/DL (0.60-1.30); GFR ESTIMATED > 60; GLUCOSE 282 MG/DL (70-105); POTASSIUM 3.9 MMOL/L (3.6-5.0); SODIUM 138 MMOL/L (135-145); TOTAL PROTEIN 4.9 G/DL (6.4-8.2)
[2016-12-10 08:00] VITALS: BP 119/61
[2016-12-10] MEDS: cefTRIAXone INJECTION 1,000 MG in NS (IVPB) 50 ML IV SCH (08:20)
[2016-12-10] MEDS: CHOLESTYRAMINE 4 GM (QUESTRAN LITE, PREVALITE) PKT PO SCH ×2 (08:27→11:18)
--- NOTE | 2016-12-10 08:34 | Pulmonary Progress Note ---
Subjective Subjective/Events-last exam Pt is doing well. No complications noted. Exam Exam Vital Signs Date Time Temp Pulse Resp B/P Pulse Ox O2 Delivery O2 Flow Rate FiO2 12/10/16 04:00 97.7 66 18 131/65 94 Room Air 12/10/16 00:00 96.7 70 18 126/58 95 Room Air 12/09/16 20:00 96.9 81 16 133/61 95 Room Air 12/09/16 20:00 Room Air 12/09/16 16:00 97.4 76 20 120/67 93 Room Air 12/09/16 12:00 98.2 71 20 102/64 92 Room Air I & O 12/10/16 07:00 Intake Total 1410 ml Balance 1410 ml General Appearance: No Apparent Distress WD/WN Chronically ill Thin HEENT: PERRL/EOMI Normal ENT Inspection Pharynx Normal Neck: Full Range of Motion Normal Inspection Non Tender Supple Carotid Bruit Respiratory: Chest Non Tender No Accessory Muscle Use No Respiratory Distress Crackles Decreased Breath Sounds Wheezing Cardiovascular: Regular Rate, Rhythm No Edema No Gallop No JVD No Murmur Normal Peripheral Pulses Extremity: Normal Capillary Refill Normal Inspection Normal Range of Motion Non Tender No Calf Tenderness No Pedal Edema Neurologic/Psychiatric: Alert Oriented x3 No Motor/Sensory Deficits Normal Mood/Affect Skin: Normal Color Warm/Dry Lymphatic: No Adenopathy Results Lab Laboratory Tests 12/09/16 05:38 12/10/16 05:50 Assessment/Plan Assessment/Plan -PNA- with strep bacteremia -change rocephin to omnicef x 6-7days recent influenza -S/P tamiflu Metabolic acidosis -IVF -monitor Pt is ok for discharge from pulm standpoint Clinical Quality Measures DVT/VTE Risk/Contraindication: Risk Factor Score Per Nursin RFS Level Per Nursing on Admit: 4+=Very High ELLE CORMIER DO Dec 10, 2016 08:34
[2016-12-10] MEDS: ADVAIR HFA 115/21 MCG INHALER 8 GM IH SCH (08:56)
[2016-12-10] MEDS ORDERED: CEFD300C3 PO (10:06)
[2016-12-10] MEDS ORDERED: CHOL4PAC3 PO (10:06)
--- NOTE | 2016-12-10 10:52 | Physical Therapy Progress Note ---
Therapy Progress Note Patient is up ad cecilia in [facility] with [facility] ambulating. PT consulted with Dr. Watts and agrees to dismiss patient from services at this time due to patient at [facility]. LUIS CHAPPELL PT Dec 10, 2016 10:52
--- NOTE | 2016-12-10 11:36 | Discharge Summary-Hospitalist ---
Diagnosis/Chief Complaint Date of Admission Dec 07, 2016 at 13:30 Date of Discharge Discharge Date: Dec 10, 2016 Admission Diagnosis Assessment: Bilateral pneumonia in acute leukemia patient with recent influenza infection a with sepsis and elevated lactic acid of 4.2 with fever Overall weakness and debility CAD previous bypass History of atrial flutter status post ablation History of duodenal ulcer bleed Diabetes mellitus insulin requiring chronic anemia GERD History of C. difficile colitis life threatening requiring vancomycin by mouth Neuropathy due to diabetes Hypertension Hyperlipidemia COPD with recent exacerbation requiring steroids Discharge Diagnosis Assessment: Bilateral pneumonia in acute leukemia patient with recent influenza infection a with sepsis and elevated lactic acid of 4.2 with fever now with Strep in BCx now on Rocephin Overall weakness and debility ordered walker use CAD previous bypass History of atrial flutter status post ablation History of duodenal ulcer bleed Diabetes mellitus insulin requiring chronic anemia GERD History of C. 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 Pt has little appetite. Pt received 6 units on sliding scale this morning. Patient Interview: Pt states that he has had diarrhea. Dr. Arenas informs pt that his antibiotics have been adjusted. Physical exam stable. Dr. Arenas informs pt that bloodwork is improved. Pt took a shower this morning, and will begin ambulating today. No fever, vitals stable, pleasant, oriented 3 Regular rate and rhythm, clear to auscultation bilaterally but mild wheezing is noted in the end expiratory phase in the bases but no tachypnea No edema and normal ROM Laboratory Tests 12/09/16 05:38 Assessment: Bilateral pneumonia in acute leukemia patient with recent influenza infection a with sepsis and elevated lactic acid of 4.2 with fever now with Strep in BCx now on Rocephin Overall weakness and debility ordered walker use CAD previous bypass History of atrial flutter status post ablation History of duodenal ulcer bleed Diabetes mellitus insulin requiring chronic anemia GERD History of C. difficile colitis life threatening requiring vancomycin by mouth Neuropathy due to diabetes Hypertension Hyperlipidemia COPD with recent exacerbation requiring steroids Plan: Adjust Levemir to 8 units at night with sliding scale Maintain Rocephin Home O2 eval Lactinex Questran 4g QID Nebulizer treatments Steroids HLIV fluids Cardiology consult Pulmonary consult Oncology consult SCDs Hold chemotherapy Monitor closely due to frail status PT/OT Scribed by Maximino Szymanski under the direct supervision of Dr. Arenas. Reason Hospital Visit/Course CC: cough with fatigue HPI: This is a 76-year-old white male known to me with a history of acute leukemia in remission since June [address] Molina weir, coronary artery disease previous bypass under Dr. Foreman's care, COPD, diabetes mellitus insulin requiring and recent influenza diagnosis that prompted an observation stay last week on the presents to the stepdown unit with complaints of continuous cough and overall fatigue. He reports these having more diarrhea today and just overall feeling weaker and weaker by the day. He reports appetite loss and low-grade fever. 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 He had almost completed Tamiflu regimen and had been on Advair twice a day along with prednisone taper for wheezing on lung exam noted with the influenza illness. He is currently running a fever and chest x-ray shows bilateral airspace disease consistent with pneumonia with elevated lactic acid of 4.2. He does have a history of multiple outs of C. difficile colitis any time he hasn't antibiotic so antibiotics have been judiciously managed and has not had requirement for the last year and a half. He does have C. difficile colitis history that required vancomycin long taper in May 2015. Cardiology, pulmonology, oncology assistance is much appreciated. Notes from 12/10/2016: Chart Review: No fever O2 94% on room air did not qualify for home O2 WBC 7.3 Hgb 9.8 Platelets 205 K+ 3.9 Creat 0.87 Ua normal Patient Interview: Dr. Arenas informs pt that he will be stable for DC today, and will DC with antibiotics and Questran. Dr. Arenas informs pt that he will not take the Vanc unless he acquires C. diff. AFVSS, pleasant, O x 3, improved RRR, CTAB except mild wheezing at the bases, much improved Plan: DC with 6 more days of Omnicef BID for a total of 10 days Vanc po Questran continued upon DC Scribed by Maximino Szymanski under the direct supervision of Dr. Arenas. Hospital course: Patient was admitted directly for shortness of breath and wheezing workup ensued revealing bilateral pneumonia with elevated lactic acid of 4.2 dehydration. Pulmonary and cardiology and oncology services were consulted who provided additional input and management which was greatly appreciated. Overall his labs return back to normal with gentle IV fluids and nebulizer treatments and oxygen supplementation along with antibiotic empiric treatment. Overall he improved enough for discharge to home and did not even require home oxygen supplementation but he will have close follow-up and monitor closely and resuming chemotherapy for leukemia Dr. Auguste direction. Discharge Summary Discharge Physical Examination Allergies: Coded Allergies: No Known Drug Allergies (Verified , 09/19/08) Vitals & I&Os Vital Signs Date Time Temp Pulse Resp B/P Pulse Ox O2 Delivery O2 Flow Rate FiO2 12/10/16 11:46 63 16 119/61 94 2.00 12/10/16 08:00 Room Air 12/10/16 08:00 96.5 Hospital Course Labs (last 24 hrs) Microbiology 12/07/16 Blood Culture - Preliminary, Resulted No growth 12/07/16 C. difficile [facility]DH Antigen & Toxins - Final, Complete Pending Labs Discharge Home Medications: Active Scripts Active Cefdinir 300 Mg Capsule 300 Mg PO BID Prevalite Packet (Cholestyramine/Aspartame) 4 Gm Powd.pack 4 Gm PO QID@08,11,16, 22 Prednisone 10 Mg Tab.ds.pk 10 Mg PO DAILY Take 6 tabs(60mg)daily,decrease by 1 tab(10MG)daily. Guaifenesin-Codeine Syrup (Guaifenesin/Codeine) 10 Ml Syrp 10 Ml PO Q4H PRN Benzonatate 100 Mg Capsule 200 Mg PO TID Aspirin EC (Aspirin) 81 Mg Tablet.dr 81 Mg PO DAILY 30 Days Reported Sucralfate 1 Gm Tablet 1 Gm PO QID Iprat-Albut 0.5-3(2.5) mg/3 ml (Ipratropium/Albuterol Sulfate) 3 Ml Ampul.neb 3 Ml IH TID PRN Ondansetron Odt (Ondansetron) 4 Mg Tab.rapdis 4 Mg PO Q8H PRN Fexofenadine HCl 180 Mg Tablet 180 Mg PO DAILY Ipratropium Pinch 15 Ml Naspr 2 Sprays NSEACH TID PRN Advair 250-50 Diskus (Fluticasone/Salmeterol) 1 Each Blst.w.dev 1 Puff IH Q6H PRN Atorvastatin Calcium 10 Mg Tablet 10 Mg PO DAILY Omeprazole 40 Mg Capsule.dr 40 Mg PO BID Sertraline HCl 100 Mg Tablet 100 Mg PO DAILY Carvedilol 3.125 Mg Tablet 3.125 Mg PO BID Dronabinol 2.5 Mg Capsule 2.5-5 Mg PO BID TAKES 1-2 (2.5 MG) CAPSULES Ritalin (Methylphenidate HCl) 5 Mg Tablet 5 Mg PO BID Acyclovir 200 Mg Capsule 200 Mg PO DAILY Lantus (Insulin Glargine,Hum.rec.anlog) 100 Unit/1 Ml Vial 25 Units SQ HS Humalog Kwikpen (Insulin Lispro) 100 Unit/1 Ml Insuln.pen 25 Units SQ AC Instructions to patient/family Please see electonic discharge instructions given to patient. Clinical Quality Measures DVT/VTE Risk/Contraindication: Risk Factor Score Per Nursin RFS Level Per Nursing on Admit: 4+=Very High ADALBERTO ARENAS DO Dec 10, 2016 11:36 Risk Factor Score Per Nursin RFS Level Per Nursing on Admit: 4+=Very High ADALBERTO ARENAS DO Dec 10, 2016 11:36
[2016-12-10 11:46] VITALS: BP 119/61
[2016-12-10] MEDS ORDERED: VANCOMYCIN ORAL 250 MG/5 ML 60 ML PO SCH ×2 (12:00)
== END 2016-12-10 11:41 | disposition home or self-care (01) | DRG 871 ==
LOC: ICU 13:30 → 4TH 12-08 13:55
PROVIDERS: ADMIT Internal Medicine; ATTEND Internal Medicine
DX: A40.9 Streptococcal sepsis, unspecified (principal); J44.0 Chronic obstructive pulmonary disease with (acute) lower respiratory infection; J15.4 Pneumonia due to other streptococci; C91.01 Acute lymphoblastic leukemia, in remission; I11.0 Hypertensive heart disease with heart failure; I50.22 Chronic systolic (congestive) heart failure; E87.2 Acidosis; T45.1X5A Adverse effect of antineoplastic and immunosuppressive drugs, initial encounter; I25.5 Ischemic cardiomyopathy; I25.10 Atherosclerotic heart disease of native coronary artery without angina pectoris; E11.40 Type 2 diabetes mellitus with diabetic neuropathy, unspecified; R19.7 Diarrhea, unspecified; R63.0 Anorexia; I48.91 Unspecified atrial fibrillation; I25.2 Old myocardial infarction; E78.00 Pure hypercholesterolemia, unspecified; K21.9 Gastro-esophageal reflux disease without esophagitis; D64.9 Anemia, unspecified; Z79.4 Long term (current) use of insulin; Z95.1 Presence of aortocoronary bypass graft; Z87.891 Personal history of nicotine dependence; Z86.19 Personal history of other infectious and parasitic diseases; Z86.73 Personal history of transient ischemic attack (TIA), and cerebral infarction without residual deficits; Z86.718 Personal history of other venous thrombosis and embolism; E78.5 Hyperlipidemia, unspecified; D69.6 Thrombocytopenia, unspecified
CPT/HCPCS: 36415; 71020; 80053; 80202; 81000; 82962; 83605; 83880; 84484; 85007; 85025; 85027; 87040; 87324; 87449; 93005; 94640; 94760; 94761

== ENCOUNTER 2017-01-14 14:14 | Outpatient (RCR) | payer MEDICARE ==
--- OUTSIDE RECORDS SUMMARY | 2016-10-21 14:57 | XMS REPORT | Continuity of Care Document ---
Author Author [facility] Organization [facility] Address Unknown Phone Unavailable Care Team Providers Care Microsoft Dynamics Ax Consultant Name Role Phone Watts, Rosalinda PCP [phone] Source Comments Some departments are not documenting in the electronic medical record. If you do not see the information that you expected, contact Release of Information in the Health Information Management department at [phone] for further assistance in locating additional records.[facility] Active Allergies and Adverse Reactions No Known [...] 15 gram/dose powder saliva, synthetic Take 1 [place] by mouth or 06/06/20 Active (MOUTHKOTE) spra [...] hypertension 07/02/2015 COPD (chronic obstructive pulmonary disease) ([facility]) 07/02/2015 ALL (acute lymphoblastic leukemia) ([facility]) 07/01/2015 Hypokalemia 05/18/2015 DIC (disseminated intravascular coagulation) ([facility]) 05/15/2015 IDDM (insulin dependent diabetes mellitus) ([facility]) 05/15/2015 Hypomagnesemia 05/15/2015 GERD (gastroesophageal reflux disease) 05/15/2015 Constipation 05/15/2015 Admission for antineoplastic chemotherapy 05/15/2015 Bilateral edema of lower extremity 05/15/2015 Acute leukemia ([facility]) 05/09/2015 Anemia 05/09/2015 Resolved Problems Problem Noted Date Resolved Date Pancytopenia ([facility]) 05/09/2015 07/02/2015 Social History Tobacco Use Types [...]
[2016-10-21 15:34] LABS: BASOPHILS % (AUTO) 0 % (0-10); EOSINOPHILS % (AUTO) 1 % (0-10); LYMPHOCYTES # (AUTO) 0.4 X 10^3 (1.0-4.0); LYMPHOCYTES % (AUTO) 10 % (12-44); MEAN CORPUSCULAR HEMOGLOBIN 34 PG (25-34); MEAN CORPUSCULAR HGB CONC 35 G/DL (32-36); MEAN CORPUSCULAR VOLUME 97 FL (80-99); MEAN PLATELET VOLUME 9.4 FL (7.4-10.4); MONOCYTES # (AUTO) 0.2 X 10^3 (0.0-1.0); MONOCYTES % (AUTO) 5 % (0-12); NEUTROPHILS # (AUTO) 3.4 X 10^3 (1.8-7.8); NEUTROPHILS % (AUTO) 85 % (42-75); PLATELET COUNT 174 10^3/uL (130-400); RED BLOOD COUNT 3.34 10^6/uL (4.35-5.85)
[2016-10-21 15:50] LABS: ALBUMIN 4.1 G/DL (3.2-4.5); BILIRUBIN,TOTAL 0.4 MG/DL (0.1-1.0); CALCIUM 8.8 MG/DL (8.5-10.1); CREATININE SERUM 1.33 MG/DL (0.60-1.30); POTASSIUM 4.5 MMOL/L (3.6-5.0); TOTAL PROTEIN 6.3 G/DL (6.4-8.2)
[2016-10-28 10:38] LABS: BASOPHILS % (AUTO) 0 % (0-10); EOSINOPHILS # (AUTO) 0.1 10^3/uL (0.0-0.3); EOSINOPHILS % (AUTO) 1 % (0-10); LYMPHOCYTES # (AUTO) 0.7 X 10^3 (1.0-4.0); LYMPHOCYTES % (AUTO) 9 % (12-44); MEAN CORPUSCULAR HEMOGLOBIN 34 PG (25-34); MEAN CORPUSCULAR HGB CONC 35 G/DL (32-36); MEAN CORPUSCULAR VOLUME 97 FL (80-99); MEAN PLATELET VOLUME 9.1 FL (7.4-10.4); MONOCYTES # (AUTO) 1.1 X 10^3 (0.0-1.0); MONOCYTES % (AUTO) 15 % (0-12); NEUTROPHILS # (AUTO) 5.6 X 10^3 (1.8-7.8); NEUTROPHILS % (AUTO) 75 % (42-75); PLATELET COUNT 190 10^3/uL (130-400); RED BLOOD COUNT 3.26 10^6/uL (4.35-5.85); RED CELL DISTRIBUTION WIDTH 15.2 % (10.0-14.5); WHITE BLOOD COUNT 7.5 10^3/uL (4.3-11.0)
[2016-10-28 12:07] LABS: ANION GAP 8 MMOL/L (5-14); BLOOD UREA NITROGEN 20 MG/DL (7-18); BUN/CREATININE RATIO 20; CALCIUM 8.3 MG/DL (8.5-10.1); CARBON DIOXIDE 24 MMOL/L (21-32); CHLORIDE 103 MMOL/L (98-107); GFR ESTIMATED > 60; GLUCOSE 275 MG/DL (70-105); POTASSIUM 4.1 MMOL/L (3.6-5.0); SODIUM 135 MMOL/L (135-145)
[2016-11-04 10:54] LABS: BASOPHILS % (AUTO) 0 % (0-10); EOSINOPHILS % (AUTO) 0 % (0-10); LYMPHOCYTES # (AUTO) 0.6 X 10^3 (1.0-4.0); LYMPHOCYTES % (AUTO) 10 % (12-44); MEAN CORPUSCULAR HEMOGLOBIN 34 PG (25-34); MEAN CORPUSCULAR HGB CONC 34 G/DL (32-36); MEAN CORPUSCULAR VOLUME 98 FL (80-99); MONOCYTES # (AUTO) 1.2 X 10^3 (0.0-1.0); MONOCYTES % (AUTO) 18 % (0-12); NEUTROPHILS # (AUTO) 4.7 X 10^3 (1.8-7.8); NEUTROPHILS % (AUTO) 72 % (42-75); PLATELET COUNT 156 10^3/uL (130-400); RED BLOOD COUNT 3.34 10^6/uL (4.35-5.85); RED CELL DISTRIBUTION WIDTH 15.3 % (10.0-14.5); WHITE BLOOD COUNT 6.5 10^3/uL (4.3-11.0)
[2016-11-04 11:20] LABS: ANION GAP 10 MMOL/L (5-14); BLOOD UREA NITROGEN 16 MG/DL (7-18); BUN/CREATININE RATIO 15; CALCIUM 9.1 MG/DL (8.5-10.1); CARBON DIOXIDE 25 MMOL/L (21-32); CHLORIDE 105 MMOL/L (98-107); GFR ESTIMATED > 60; GLUCOSE 268 MG/DL (70-105); POTASSIUM 4.7 MMOL/L (3.6-5.0); SODIUM 140 MMOL/L (135-145)
[2016-11-11 10:36] LABS: BASOPHILS % (AUTO) 0 % (0-10); EOSINOPHILS # (AUTO) 0.1 10^3/uL (0.0-0.3); EOSINOPHILS % (AUTO) 1 % (0-10); LYMPHOCYTES # (AUTO) 0.9 X 10^3 (1.0-4.0); LYMPHOCYTES % (AUTO) 17 % (12-44); MEAN CORPUSCULAR HEMOGLOBIN 34 PG (25-34); MEAN CORPUSCULAR HGB CONC 35 G/DL (32-36); MEAN CORPUSCULAR VOLUME 97 FL (80-99); MEAN PLATELET VOLUME 8.6 FL (7.4-10.4); MONOCYTES # (AUTO) 0.9 X 10^3 (0.0-1.0); MONOCYTES % (AUTO) 17 % (0-12); NEUTROPHILS # (AUTO) 3.5 X 10^3 (1.8-7.8); NEUTROPHILS % (AUTO) 65 % (42-75); PLATELET COUNT 171 10^3/uL (130-400); RED BLOOD COUNT 3.27 10^6/uL (4.35-5.85); RED CELL DISTRIBUTION WIDTH 15.2 % (10.0-14.5); WHITE BLOOD COUNT 5.4 10^3/uL (4.3-11.0)
[2016-11-11 11:19] LABS: ANION GAP 8 MMOL/L (5-14); BLOOD UREA NITROGEN 21 MG/DL (7-18); BUN/CREATININE RATIO 22; CARBON DIOXIDE 25 MMOL/L (21-32); CHLORIDE 105 MMOL/L (98-107); CREATININE SERUM 0.94 MG/DL (0.60-1.30); GFR ESTIMATED > 60; GLUCOSE 137 MG/DL (70-105); POTASSIUM 4.4 MMOL/L (3.6-5.0); SODIUM 138 MMOL/L (135-145)
[2016-11-19 12:54] LABS: BASOPHILS % (AUTO) 0 % (0-10); EOSINOPHILS # (AUTO) 0.1 10^3/uL (0.0-0.3); EOSINOPHILS % (AUTO) 2 % (0-10); LYMPHOCYTES # (AUTO) 0.8 X 10^3 (1.0-4.0); LYMPHOCYTES % (AUTO) 17 % (12-44); MEAN CORPUSCULAR HEMOGLOBIN 34 PG (25-34); MEAN CORPUSCULAR HGB CONC 34 G/DL (32-36); MEAN CORPUSCULAR VOLUME 98 FL (80-99); MEAN PLATELET VOLUME 9.3 FL (7.4-10.4); MONOCYTES # (AUTO) 0.6 X 10^3 (0.0-1.0); MONOCYTES % (AUTO) 14 % (0-12); NEUTROPHILS % (AUTO) 67 % (42-75); PLATELET COUNT 163 10^3/uL (130-400); RED BLOOD COUNT 3.37 10^6/uL (4.35-5.85); RED CELL DISTRIBUTION WIDTH 14.9 % (10.0-14.5); WHITE BLOOD COUNT 4.4 10^3/uL (4.3-11.0)
[2016-11-19 13:13] LABS: ALANINE AMINOTRANSFERASE 26 U/L (0-55); ANION GAP 9 MMOL/L (5-14); ASPARTATE AMINO TRANSFERASE 19 U/L (5-34); BILIRUBIN,TOTAL 0.6 MG/DL (0.1-1.0); BLOOD UREA NITROGEN 17 MG/DL (7-18); BUN/CREATININE RATIO 17; CALCIUM 8.5 MG/DL (8.5-10.1); CARBON DIOXIDE 24 MMOL/L (21-32); CHLORIDE 103 MMOL/L (98-107); CREATININE SERUM 0.99 MG/DL (0.60-1.30); GFR ESTIMATED > 60; GLUCOSE 237 MG/DL (70-105); LACTATE DEHYDROGENASE 208 U/L (125-220); SODIUM 136 MMOL/L (135-145)
[2016-12-17 14:10] LABS: BASOPHILS % (AUTO) 0 % (0-10); EOSINOPHILS % (AUTO) 1 % (0-10); LYMPHOCYTES # (AUTO) 0.5 X 10^3 (1.0-4.0); LYMPHOCYTES % (AUTO) 9 % (12-44); MEAN CORPUSCULAR HEMOGLOBIN 33 PG (25-34); MEAN CORPUSCULAR HGB CONC 34 G/DL (32-36); MEAN CORPUSCULAR VOLUME 96 FL (80-99); MEAN PLATELET VOLUME 8.8 FL (7.4-10.4); MONOCYTES # (AUTO) 0.5 X 10^3 (0.0-1.0); MONOCYTES % (AUTO) 8 % (0-12); NEUTROPHILS # (AUTO) 4.6 X 10^3 (1.8-7.8); NEUTROPHILS % (AUTO) 82 % (42-75); PLATELET COUNT 269 10^3/uL (130-400); RED BLOOD COUNT 3.39 10^6/uL (4.35-5.85); RED CELL DISTRIBUTION WIDTH 15.1 % (10.0-14.5); WHITE BLOOD COUNT 5.7 10^3/uL (4.3-11.0)
[2016-12-17 14:44] LABS: ALANINE AMINOTRANSFERASE 47 U/L (0-55); ALBUMIN 3.4 G/DL (3.2-4.5); ANION GAP 11 MMOL/L (5-14); ASPARTATE AMINO TRANSFERASE 34 U/L (5-34); BILIRUBIN,TOTAL 0.7 MG/DL (0.1-1.0); BLOOD UREA NITROGEN 20 MG/DL (7-18); BUN/CREATININE RATIO 19; CALCIUM 8.5 MG/DL (8.5-10.1); CARBON DIOXIDE 21 MMOL/L (21-32); CHLORIDE 104 MMOL/L (98-107); CREATININE SERUM 1.08 MG/DL (0.60-1.30); GFR ESTIMATED > 60; GLUCOSE 165 MG/DL (70-105); LACTATE DEHYDROGENASE 251 U/L (125-220); POTASSIUM 4.3 MMOL/L (3.6-5.0); SODIUM 136 MMOL/L (135-145); TOTAL PROTEIN 5.7 G/DL (6.4-8.2)
[~2017-01-14 14:14] MED LIST changes: +CEFD300C3 PO; +CHOL4PAC3 PO; +NS (IVPB) CANCER CENTER 250 ML IV SCH; +NS IV SCH; +VINCRISTINE SULFATE IV SCH
[2017-01-14 14:38] LABS: BASOPHILS % (AUTO) 1 % (0-10); EOSINOPHILS % (AUTO) 1 % (0-10); LYMPHOCYTES # (AUTO) 0.7 X 10^3 (1.0-4.0); LYMPHOCYTES % (AUTO) 24 % (12-44); MEAN CORPUSCULAR HGB CONC 34 G/DL (32-36); MEAN CORPUSCULAR VOLUME 97 FL (80-99); MEAN PLATELET VOLUME 8.6 FL (7.4-10.4); MONOCYTES # (AUTO) 0.7 X 10^3 (0.0-1.0); MONOCYTES % (AUTO) 22 % (0-12); NEUTROPHILS # (AUTO) 1.7 X 10^3 (1.8-7.8); NEUTROPHILS % (AUTO) 53 % (42-75); PLATELET COUNT 162 10^3/uL (130-400); RED BLOOD COUNT 3.02 10^6/uL (4.35-5.85); RED CELL DISTRIBUTION WIDTH 17.3 % (10.0-14.5); WHITE BLOOD COUNT 3.1 10^3/uL (4.3-11.0)
[2017-01-14 14:39] LABS: MEAN CORPUSCULAR HEMOGLOBIN 32 PG (25-34)
[2017-01-14 15:01] LABS: ALANINE AMINOTRANSFERASE 25 U/L (0-55); ALBUMIN 3.7 G/DL (3.2-4.5); ANION GAP 10 MMOL/L (5-14); ASPARTATE AMINO TRANSFERASE 21 U/L (5-34); BILIRUBIN,TOTAL 0.6 MG/DL (0.1-1.0); BLOOD UREA NITROGEN 12 MG/DL (7-18); BUN/CREATININE RATIO 13; CALCIUM 8.3 MG/DL (8.5-10.1); CARBON DIOXIDE 22 MMOL/L (21-32); CHLORIDE 106 MMOL/L (98-107); CREATININE SERUM 0.95 MG/DL (0.60-1.30); GFR ESTIMATED > 60; GLUCOSE 266 MG/DL (70-105); LACTATE DEHYDROGENASE 248 U/L (125-220); POTASSIUM 3.9 MMOL/L (3.6-5.0); SODIUM 138 MMOL/L (135-145); TOTAL PROTEIN 5.7 G/DL (6.4-8.2)
[2017-01-14] MEDS ORDERED: NS IV SCH (15:30)
[2017-01-14] MEDS ORDERED: VINCRISTINE SULFATE IV SCH (15:30)
== END 2017-01-19 | disposition home or self-care (01) ==
LOC: ONC 14:14
PROVIDERS: ATTEND Internal Medicine Hematology & Oncology
DX: Z51.11 Encounter for antineoplastic chemotherapy (principal); C91.00 Acute lymphoblastic leukemia not having achieved remission; D50.9 Iron deficiency anemia, unspecified; Z79.899 Other long term (current) drug therapy
CPT/HCPCS: 36415; 36591; 80048; 80053; 83615; 85025; 96409; 99213

== ENCOUNTER 2017-04-08 14:56 | Outpatient (RCR) | payer MEDICARE ==
[2017-01-21 10:30] LABS: BASOPHILS % (AUTO) 0 % (0-10); EOSINOPHILS % (AUTO) 0 % (0-10); LYMPHOCYTES # (AUTO) 0.7 X 10^3 (1.0-4.0); LYMPHOCYTES % (AUTO) 10 % (12-44); MEAN CORPUSCULAR HEMOGLOBIN 33 PG (25-34); MEAN CORPUSCULAR HGB CONC 35 G/DL (32-36); MEAN CORPUSCULAR VOLUME 96 FL (80-99); MEAN PLATELET VOLUME 9.1 FL (7.4-10.4); MONOCYTES # (AUTO) 0.9 X 10^3 (0.0-1.0); MONOCYTES % (AUTO) 13 % (0-12); NEUTROPHILS # (AUTO) 4.9 X 10^3 (1.8-7.8); NEUTROPHILS % (AUTO) 76 % (42-75); PLATELET COUNT 174 10^3/uL (130-400); RED BLOOD COUNT 3.44 10^6/uL (4.35-5.85); RED CELL DISTRIBUTION WIDTH 17.4 % (10.0-14.5); WHITE BLOOD COUNT 6.5 10^3/uL (4.3-11.0)
[2017-01-21 11:02] LABS: ANION GAP 7 MMOL/L (5-14); BLOOD UREA NITROGEN 18 MG/DL (7-18); BUN/CREATININE RATIO 19; CALCIUM 8.7 MG/DL (8.5-10.1); CARBON DIOXIDE 28 MMOL/L (21-32); CHLORIDE 102 MMOL/L (98-107); CREATININE SERUM 0.95 MG/DL (0.60-1.30); GFR ESTIMATED > 60; GLUCOSE 198 MG/DL (70-105); POTASSIUM 4.5 MMOL/L (3.6-5.0); SODIUM 137 MMOL/L (135-145)
[2017-01-28 10:36] LABS: BASOPHILS % (AUTO) 0 % (0-10); EOSINOPHILS % (AUTO) 0 % (0-10); LYMPHOCYTES # (AUTO) 0.8 X 10^3 (1.0-4.0); LYMPHOCYTES % (AUTO) 10 % (12-44); MEAN CORPUSCULAR HEMOGLOBIN 33 PG (25-34); MEAN CORPUSCULAR HGB CONC 34 G/DL (32-36); MEAN CORPUSCULAR VOLUME 98 FL (80-99); MEAN PLATELET VOLUME 8.6 FL (7.4-10.4); MONOCYTES % (AUTO) 12 % (0-12); NEUTROPHILS # (AUTO) 6.1 X 10^3 (1.8-7.8); NEUTROPHILS % (AUTO) 77 % (42-75); PLATELET COUNT 149 10^3/uL (130-400); RED BLOOD COUNT 3.31 10^6/uL (4.35-5.85); WHITE BLOOD COUNT 7.9 10^3/uL (4.3-11.0)
[2017-01-28 11:05] LABS: ANION GAP 9 MMOL/L (5-14); BLOOD UREA NITROGEN 15 MG/DL (7-18); BUN/CREATININE RATIO 15; CARBON DIOXIDE 27 MMOL/L (21-32); CHLORIDE 103 MMOL/L (98-107); CREATININE SERUM 0.99 MG/DL (0.60-1.30); GFR ESTIMATED > 60; GLUCOSE 114 MG/DL (70-105); POTASSIUM 4.6 MMOL/L (3.6-5.0); SODIUM 139 MMOL/L (135-145)
[2017-02-04 09:56] LABS: BASOPHILS % (AUTO) 0 % (0-10); EOSINOPHILS # (AUTO) 0.1 10^3/uL (0.0-0.3); EOSINOPHILS % (AUTO) 1 % (0-10); LYMPHOCYTES # (AUTO) 0.7 X 10^3 (1.0-4.0); LYMPHOCYTES % (AUTO) 15 % (12-44); MEAN CORPUSCULAR HEMOGLOBIN 33 PG (25-34); MEAN CORPUSCULAR HGB CONC 34 G/DL (32-36); MEAN CORPUSCULAR VOLUME 98 FL (80-99); MEAN PLATELET VOLUME 8.6 FL (7.4-10.4); MONOCYTES # (AUTO) 0.6 X 10^3 (0.0-1.0); MONOCYTES % (AUTO) 13 % (0-12); NEUTROPHILS # (AUTO) 3.2 X 10^3 (1.8-7.8); NEUTROPHILS % (AUTO) 71 % (42-75); PLATELET COUNT 150 10^3/uL (130-400); RED BLOOD COUNT 3.13 10^6/uL (4.35-5.85); RED CELL DISTRIBUTION WIDTH 16.8 % (10.0-14.5); WHITE BLOOD COUNT 4.5 10^3/uL (4.3-11.0)
[2017-02-04 10:59] LABS: ANION GAP 7 MMOL/L (5-14); BLOOD UREA NITROGEN 20 MG/DL (7-18); BUN/CREATININE RATIO 18; CALCIUM 8.3 MG/DL (8.5-10.1); CARBON DIOXIDE 25 MMOL/L (21-32); CHLORIDE 103 MMOL/L (98-107); GFR ESTIMATED > 60; GLUCOSE 349 MG/DL (70-105); POTASSIUM 4.4 MMOL/L (3.6-5.0); SODIUM 135 MMOL/L (135-145)
[2017-02-11 15:13] LABS: BASOPHILS % (AUTO) 0 % (0-10); EOSINOPHILS # (AUTO) 0.1 10^3/uL (0.0-0.3); EOSINOPHILS % (AUTO) 2 % (0-10); LYMPHOCYTES # (AUTO) 0.8 X 10^3 (1.0-4.0); LYMPHOCYTES % (AUTO) 19 % (12-44); MEAN CORPUSCULAR HEMOGLOBIN 33 PG (25-34); MEAN CORPUSCULAR HGB CONC 34 G/DL (32-36); MEAN CORPUSCULAR VOLUME 98 FL (80-99); MEAN PLATELET VOLUME 9.6 FL (7.4-10.4); MONOCYTES # (AUTO) 0.6 X 10^3 (0.0-1.0); MONOCYTES % (AUTO) 16 % (0-12); NEUTROPHILS # (AUTO) 2.4 X 10^3 (1.8-7.8); NEUTROPHILS % (AUTO) 62 % (42-75); PLATELET COUNT 141 10^3/uL (130-400); RED BLOOD COUNT 3.17 10^6/uL (4.35-5.85); RED CELL DISTRIBUTION WIDTH 16.2 % (10.0-14.5); WHITE BLOOD COUNT 3.9 10^3/uL (4.3-11.0)
[2017-02-11 15:27] LABS: ALANINE AMINOTRANSFERASE 28 U/L (0-55); ALBUMIN 3.6 G/DL (3.2-4.5); ANION GAP 10 MMOL/L (5-14); ASPARTATE AMINO TRANSFERASE 20 U/L (5-34); BILIRUBIN,TOTAL 0.5 MG/DL (0.1-1.0); BLOOD UREA NITROGEN 14 MG/DL (7-18); BUN/CREATININE RATIO 18; CALCIUM 8.1 MG/DL (8.5-10.1); CARBON DIOXIDE 22 MMOL/L (21-32); CHLORIDE 107 MMOL/L (98-107); CREATININE SERUM 0.78 MG/DL (0.60-1.30); GFR ESTIMATED > 60; GLUCOSE 196 MG/DL (70-105); POTASSIUM 3.7 MMOL/L (3.6-5.0); SODIUM 139 MMOL/L (135-145); TOTAL PROTEIN 5.2 G/DL (6.4-8.2)
[2017-02-25 11:06] LABS: BASOPHILS % (AUTO) 0 % (0-10); EOSINOPHILS # (AUTO) 0.1 10^3/uL (0.0-0.3); EOSINOPHILS % (AUTO) 1 % (0-10); LYMPHOCYTES # (AUTO) 0.7 X 10^3 (1.0-4.0); LYMPHOCYTES % (AUTO) 12 % (12-44); MEAN CORPUSCULAR HEMOGLOBIN 33 PG (25-34); MEAN CORPUSCULAR HGB CONC 34 G/DL (32-36); MEAN CORPUSCULAR VOLUME 98 FL (80-99); MEAN PLATELET VOLUME 8.9 FL (7.4-10.4); MONOCYTES # (AUTO) 0.8 X 10^3 (0.0-1.0); MONOCYTES % (AUTO) 14 % (0-12); NEUTROPHILS # (AUTO) 4.2 X 10^3 (1.8-7.8); NEUTROPHILS % (AUTO) 72 % (42-75); PLATELET COUNT 148 10^3/uL (130-400); RED BLOOD COUNT 3.26 10^6/uL (4.35-5.85); RED CELL DISTRIBUTION WIDTH 16.1 % (10.0-14.5); WHITE BLOOD COUNT 5.8 10^3/uL (4.3-11.0)
[2017-02-25 12:08] LABS: ANION GAP 8 MMOL/L (5-14); BLOOD UREA NITROGEN 11 MG/DL (7-18); BUN/CREATININE RATIO 11; CALCIUM 8.9 MG/DL (8.5-10.1); CARBON DIOXIDE 26 MMOL/L (21-32); CHLORIDE 103 MMOL/L (98-107); CREATININE SERUM 1.03 MG/DL (0.60-1.30); GFR ESTIMATED > 60; GLUCOSE 264 MG/DL (70-105); POTASSIUM 4.2 MMOL/L (3.6-5.0); SODIUM 137 MMOL/L (135-145)
[2017-03-11 15:14] LABS: BASOPHILS % (AUTO) 0 % (0-10); EOSINOPHILS # (AUTO) 0.1 10^3/uL (0.0-0.3); EOSINOPHILS % (AUTO) 2 % (0-10); LYMPHOCYTES # (AUTO) 0.8 X 10^3 (1.0-4.0); LYMPHOCYTES % (AUTO) 21 % (12-44); MEAN CORPUSCULAR HEMOGLOBIN 33 PG (25-34); MEAN CORPUSCULAR HGB CONC 34 G/DL (32-36); MEAN CORPUSCULAR VOLUME 98 FL (80-99); MEAN PLATELET VOLUME 9.4 FL (7.4-10.4); MONOCYTES # (AUTO) 0.6 X 10^3 (0.0-1.0); MONOCYTES % (AUTO) 14 % (0-12); NEUTROPHILS # (AUTO) 2.6 X 10^3 (1.8-7.8); NEUTROPHILS % (AUTO) 64 % (42-75); PLATELET COUNT 145 10^3/uL (130-400); RED CELL DISTRIBUTION WIDTH 15.4 % (10.0-14.5)
[2017-03-11 15:36] LABS: ALANINE AMINOTRANSFERASE 34 U/L (0-55); ANION GAP 9 MMOL/L (5-14); ASPARTATE AMINO TRANSFERASE 28 U/L (5-34); BILIRUBIN,TOTAL 0.6 MG/DL (0.1-1.0); BLOOD UREA NITROGEN 15 MG/DL (7-18); BUN/CREATININE RATIO 14; CALCIUM 8.9 MG/DL (8.5-10.1); CARBON DIOXIDE 24 MMOL/L (21-32); CHLORIDE 105 MMOL/L (98-107); CREATININE SERUM 1.07 MG/DL (0.60-1.30); GFR ESTIMATED > 60; GLUCOSE 230 MG/DL (70-105); LACTATE DEHYDROGENASE 254 U/L (125-220); POTASSIUM 4.1 MMOL/L (3.6-5.0); SODIUM 138 MMOL/L (135-145)
[2017-03-25 10:10] LABS: BASOPHILS % (AUTO) 0 % (0-10); EOSINOPHILS % (AUTO) 1 % (0-10); LYMPHOCYTES # (AUTO) 0.6 X 10^3 (1.0-4.0); LYMPHOCYTES % (AUTO) 11 % (12-44); MEAN CORPUSCULAR HEMOGLOBIN 34 PG (25-34); MEAN CORPUSCULAR HGB CONC 35 G/DL (32-36); MEAN CORPUSCULAR VOLUME 98 FL (80-99); MONOCYTES # (AUTO) 0.8 X 10^3 (0.0-1.0); MONOCYTES % (AUTO) 16 % (0-12); NEUTROPHILS # (AUTO) 3.9 X 10^3 (1.8-7.8); NEUTROPHILS % (AUTO) 73 % (42-75); PLATELET COUNT 135 10^3/uL (130-400); RED BLOOD COUNT 3.36 10^6/uL (4.35-5.85); RED CELL DISTRIBUTION WIDTH 15.6 % (10.0-14.5); WHITE BLOOD COUNT 5.4 10^3/uL (4.3-11.0)
[2017-04-08 15:16] LABS: BASOPHILS % (AUTO) 0 % (0-10); EOSINOPHILS # (AUTO) 0.1 10^3/uL (0.0-0.3); EOSINOPHILS % (AUTO) 1 % (0-10); LYMPHOCYTES # (AUTO) 0.5 X 10^3 (1.0-4.0); LYMPHOCYTES % (AUTO) 14 % (12-44); MEAN CORPUSCULAR HEMOGLOBIN 33 PG (25-34); MEAN CORPUSCULAR HGB CONC 34 G/DL (32-36); MEAN CORPUSCULAR VOLUME 97 FL (80-99); MEAN PLATELET VOLUME 9.2 FL (7.4-10.4); MONOCYTES # (AUTO) 0.2 X 10^3 (0.0-1.0); MONOCYTES % (AUTO) 6 % (0-12); NEUTROPHILS # (AUTO) 2.9 X 10^3 (1.8-7.8); NEUTROPHILS % (AUTO) 78 % (42-75); PLATELET COUNT 150 10^3/uL (130-400); RED BLOOD COUNT 3.45 10^6/uL (4.35-5.85); RED CELL DISTRIBUTION WIDTH 15.1 % (10.0-14.5); WHITE BLOOD COUNT 3.7 10^3/uL (4.3-11.0)
[2017-04-08 15:45] LABS: ALANINE AMINOTRANSFERASE 27 U/L (0-55); ANION GAP 9 MMOL/L (5-14); ASPARTATE AMINO TRANSFERASE 20 U/L (5-34); BILIRUBIN,TOTAL 0.6 MG/DL (0.1-1.0); BLOOD UREA NITROGEN 15 MG/DL (7-18); BUN/CREATININE RATIO 15 (0-20); CALCIUM 9.1 MG/DL (8.5-10.1); CARBON DIOXIDE 26 MMOL/L (21-32); CHLORIDE 101 MMOL/L (98-107); CREATININE SERUM 0.99 MG/DL (0.60-1.30); GFR ESTIMATED > 60; GLUCOSE 267 MG/DL (70-105); HEMOLYSIS 25 (-100-29); ICTERUS 1.1 (-100-1.9); LACTATE DEHYDROGENASE 222 U/L (125-220); LIPEMIA 9 (-100-49); POTASSIUM 4.2 MMOL/L (3.6-5.0); SODIUM 136 MMOL/L (135-145); TOTAL PROTEIN 6.3 GM/DL (6.4-8.2)
[2017-04-16] MEDS ORDERED: ATOR10TA66 PO (15:31)
[2017-04-16] MEDS ORDERED: ACYC200C PO (15:31)
[2017-04-17] MEDS ORDERED: CEFD300C3 PO ×2 (12:12→12:42)
[2017-04-17] MEDS ORDERED: PRED10TA22 PO ×2 (12:13→12:42)
== END 2017-04-21 | disposition home or self-care (01) ==
LOC: ONC 14:56
PROVIDERS: ATTEND Internal Medicine Hematology & Oncology
DX: C91.00 Acute lymphoblastic leukemia not having achieved remission (principal); D50.9 Iron deficiency anemia, unspecified; Z79.899 Other long term (current) drug therapy
CPT/HCPCS: 36415; 36591; 80048; 80053; 83615; 85025; 96409; 99213

== ENCOUNTER 2017-04-16 11:57 | Observation (INO) | payer MEDICARE ==
[~2017-04-16] VITALS: Ht 180.3 cm; Wt 75.6 kg
[~2017-04-16 11:57] MED LIST changes: -NS (IVPB) CANCER CENTER 250 ML IV SCH; -NS IV SCH; -VINCRISTINE SULFATE IV SCH
--- OUTSIDE RECORDS SUMMARY | 2017-04-16 12:42 | XMS REPORT | Continuity of Care Document ---
Author Author [facility] Organization [facility] Address Unknown Phone Unavailable Care Team Providers Care Women'S Activities Adviser Name Role Phone Watts, Rosalinda PCP [phone] Source Comments Some departments are not documenting in the electronic medical record. If you do not see the information that you expected, contact Release of Information in the Health Information Management department at [phone] for further assistance in locating additional records.[facility] Active Allergies and Adverse Reactions No Known [...] 15 gram/dose powder saliva, synthetic Take 1 [place] by mouth or 06/06/20 Active ([place]) spra [...] hypertension 07/02/2015 COPD (chronic obstructive pulmonary disease) ([facility]) 07/02/2015 ALL (acute lymphoblastic leukemia) ([facility]) 07/01/2015 Hypokalemia 05/18/2015 DIC (disseminated intravascular coagulation) ([facility]) 05/15/2015 IDDM (insulin dependent diabetes mellitus) ([facility]) 05/15/2015 Hypomagnesemia 05/15/2015 GERD (gastroesophageal reflux disease) 05/15/2015 Constipation 05/15/2015 Admission for antineoplastic chemotherapy 05/15/2015 Bilateral edema of lower extremity 05/15/2015 Acute leukemia ([facility]) 05/09/2015 Anemia 05/09/2015 Resolved Problems Problem Noted Date Resolved Date Pancytopenia ([facility]) 05/09/2015 07/02/2015 Social History Tobacco Use Types [...] Exam Pertussis Vaccine 1951 Tetanus Vaccine 1957 Shingles Vaccine 2000 Prevnar/Pneumovax (#1) 2005 Influenza Vaccine 06/18/2017 Results from Last 3 Months Not on file
[2017-04-16] MEDS ORDERED: NS IV 1000 ML 1,000 ML ONE (12:43)
[2017-04-16] MEDS ORDERED: NS IV 1000 ML 1,000 ML IV SCH (12:45)
[2017-04-16 13:01] LABS: BASOPHILS % (AUTO) 0 % (0-10); EOSINOPHILS # (AUTO) 0.1 10^3/uL (0.0-0.3); EOSINOPHILS % (AUTO) 1 % (0-10); LYMPHOCYTES # (AUTO) 0.6 X 10^3 (1.0-4.0); LYMPHOCYTES % (AUTO) 6 % (12-44); MEAN CORPUSCULAR HEMOGLOBIN 34 PG (25-34); MEAN CORPUSCULAR HGB CONC 35 G/DL (32-36); MEAN CORPUSCULAR VOLUME 97 FL (80-99); MEAN PLATELET VOLUME 9.3 FL (7.4-10.4); MONOCYTES # (AUTO) 1.5 X 10^3 (0.0-1.0); MONOCYTES % (AUTO) 15 % (0-12); NEUTROPHILS # (AUTO) 7.6 X 10^3 (1.8-7.8); NEUTROPHILS % (AUTO) 78 % (42-75); PLATELET COUNT 140 10^3/uL (130-400); RED BLOOD COUNT 3.37 10^6/uL (4.35-5.85); RED CELL DISTRIBUTION WIDTH 15.3 % (10.0-14.5); WHITE BLOOD COUNT 9.8 10^3/uL (4.3-11.0)
--- OUTSIDE RECORDS SUMMARY | 2017-04-16 13:10 | XMS REPORT | Clinical Summary ---
Author Author User, [employer] Organization [facility] [place] Address Unknown Phone Unavailable Allergies, Adverse Reactions, Alerts Allergy Name Reaction Description Start Date Severity Status Provider No Known Allergies Ciera Main Conditions or Problems Problem Name Problem Code Onset Date Status Entry Date Provider Comment Standard Description Annotate DIABETES MELLITUS, TYPE II, ON INSULIN 250.00 1988 Active Rosalinda Watts Diabetes mellitus without mention of complication, type II or unspecified type, not stated as uncontrolled HYPERTENSION, BENIGN ESSENTIAL 401.1 Inactive Rosailnda Watts Benign essential hypertension HYPERLIPIDEMIA, MILD 272.4 Active Rosalinda Watts Other and unspecified hyperlipidemia 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 Rosalinda Watts Displacement of lumbar intervertebral disc without myelopathy DERMATITIS, SEBORRHEIC 690.10 Resolved Rosalinda Watts Seborheic dermatitis, unspecified History of DIARRHEA, ANTIBIOTIC ASSOCIATED 008.45 Correction Rosalinda Watts Intestinal infection due to clostridium difficile GASTROESOPHAGEAL REFLUX DISEASE, CHRONIC 530.81 Active Rosalinda Watts Esophageal reflux HEMORRHOIDS 455.6 Active Rosalinda Watts Unspecified hemorrhoids without mention of complication TINEA PEDIS 110.4 Resolved Rosalinda Watts Dermatophytosis of foot History of HYPOGLYCEMIA, HX OF V12.2 Correction Rosalinda Watts Personal history of endocrine, metabolic, and immunity disorders HYPERTENSION, BENIGN ESSENTIAL, UNCONTROLLED 401.1 Correction Rosalinda Watts Benign essential hypertension HYPERTENSION, BENIGN ESSENTIAL, CONTROLLED 401.1 Active Rosalinda Watts Benign essential hypertension POSTNASAL DRIP SYNDROME 473.9 Resolved Rosalinda Watts Unspecified sinusitis (chronic) HOARSENESS 784.49 Resolved Rosalinda Watts Other voice and resonance disorders COUGH 786.2 Resolved Rosalinda Watts Cough INGROWING NAIL 703.0 Resolved Rosalinda Watts Ingrowing nail b/l 2nd toes CERUMEN IMPACTION, BILATERAL 380.4 Resolved Rosalinda Watts Impacted cerumen PHARYNGITIS, ACUTE 462 Resolved Rosalinda Watts Acute pharyngitis SINUS CONGESTION 478.1 Resolved Rosalinda Watts Other diseases of nasal cavity and sinuses ACTINIC KERATOSIS 702.0 Active Rosalinda Watts Actinic keratosis left side of face DERMATOPHYTOSIS, FOOT 110.4 Resolved Rosalinda Watts Dermatophytosis of foot COUGH 786.2 Resolved Rosalinda Watts Cough DERMATOPHYTOSIS, BODY 110.5 Resolved Rosalinda Watts Dermatophytosis of the body CORONARY ARTERY DISEASE 414.00 Active Rosalinda Watts Coronary atherosclerosis of unspecified type of vessel, hoopa or graft DUODENAL ULCER, ACUTE, HEMORRHAGE 532.00 Resolved Rosalinda Watts Acute duodenal ulcer with hemorrhage, without mention of obstruction ATRIAL FLUTTER, PAROXYSMAL 427.32 Resolved Rosalinda Watts Atrial flutter ATRIAL FIBRILLATION, PAROXYSMAL 427.31 Resolved Rosalinda Watts Atrial fibrillation PROSTATITIS, ACUTE 601.0 Resolved Rosalinda Watts Acute prostatitis EDEMA 782.3 Resolved Rosalinda Watts Edema ABDOMINAL PAIN, EPIGASTRIC 789.06 Resolved Rosalinda Watts Abdominal pain, epigastric CERUMEN IMPACTION, LEFT 380.4 Resolved Rosalinda Watts Impacted cerumen NAUSEA AND VOMITING 787.01 Resolved Rosalinda Watts Nausea with vomiting ANEMIA, IRON DEFICIENCY NEC 280.8 Active Rosalinda Watts Other specified iron deficiency anemias ABDOMINAL PAIN, ACUTE 789.00 Resolved Rosalinda Watts Abdominal pain, unspecified site DIARRHEA, ACUTE 787.91 Resolved Rosalinda Watts Diarrhea ORCHITIS 604.90 Resolved Rosalinda Watts Orchitis and epididymitis, unspecified PHARYNGITIS, ACUTE 462 Resolved Rosalinda Watts Acute pharyngitis URI 465.9 Resolved Rosalinda Watts Acute upper respiratory infections of unspecified site WHEEZING 786.07 Resolved Rosalinda Watts Wheezing DERMATITIS, CONTACT, DUE TO PLANTS 692.6 Resolved Rosalinda Watts Contact dermatitis and other eczema due to plants [ except food] VACCINE AGAINST INFLUENZA V04.81 Resolved Rosalinda Watts Need for prophylactic vaccination and inoculation against influenza NAUSEA AND VOMITING 787.01 Resolved Rosalinda Watts Nausea with vomiting 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 Rosalinda Watts Other testicular hypofunction VACCINE AGAINST STREPTOCOCCUS PNEUMONIAE V03.82 Resolved Rosalinda Watts Need for prophylactic vaccination against Streptococcus pneumoniae [pneumococcus] OTHER SYMPTOMS INVOLVING DIGESTIVE SYSTEM OTHER 787.99 Resolved Rosalinda Watts Other symptoms involving digestive system ENCOUNTER FOR LONG-TERM USE OF OTHER MEDICATIONS V58.69 Resolved Rosalinda Watts Long-term (current) use of other medications COUGH 786.2 Active Rosalinda Watts Cough SINUSITIS, SPHENOIDAL, ACUTE 461.3 Inactive Rosalinda Watts Acute sphenoidal sinusitis Medication List Medication Instructions Start Date Stop Date Generic Name NDC Status Provider Patient Instruction DOXYCYCLINE HYCLATE 100 MG CAP 1 PO BID X 14 DAYS DOXYCYCLINE HYCLATE 77184095584 Active Florina Zambrano ALBUTEROL SULFATE 0.083 % NEBU SOLN 1 treatment QID prn wheezing ALBUTEROL SULFATE 74918042788 No Longer Active Rosalinda Watts SINGULAIR 10 MG TABS 1 PO AT HS MONTELUKAST SODIUM 78214998489 No Longer Active Rosalinda Watts VITAMIN D 1000 UNIT TABS 1 PO Daily CHOLECALCIFEROL 91744039725 No Longer Active Rosalinda Watts ADVAIR DISKUS 250-50 MCG/DOSE AEPB 1 puff BID FLUTICASONE- SALMETEROL 63438951701 Active Rosalinda Watts OXYCODONE-ACETAMINOPHEN 5-325 MG TABS 1 PO Q 4 HRS PRN PAIN 05/06 OXYCODONE-ACETAMINOPHEN 26594760210 No Longer Active Rosalinda Watts METANX 3-90.314-2-35 MG CAPS 1 PO BID L-METHYLFOLATE- [id number] 18529253604 No Longer Active Rosalinda Watts MOBIC 15 MG TABS 1 PO daily MELOXICAM 10616891611 No Longer Active Rosalinda Watts FERROUS SULFATE CR 325 MG TBCR 1 PO QAM w/meals FERROUS SULFATE No Longer Active Rosalinda Estella Watts REGLAN 5 MG TABS 1-2 PO 30 minutes before meals and QHS METOCLOPRAMIDE HCL 68134141511 No Longer Active Rosalinda Estella Watts CRESTOR 10 MG TABS 1 PO daily ROSUVASTATIN CALCIUM 98395964632 No Longer Active Rosalinda Estella Watts ALTACE 10 MG CAP 1 PO daily RAMIPRIL 53597457924 No Longer Active Rosalinda Estella Watts COREG 6.25 MG TABS 1 PO BID CARVEDILOL 57669085358 No Longer Active Rosalinda Estella Watts METFORMIN HCL 1000 MG TABS 1 PO BID METFORMIN HCL 98966834010 No Longer Active Rosalinda Estella Watts HUMALOG 100 U/ML SOLN 15 units before meals INSULIN LISPRO (HUMAN) 86865998064 Active Rosalinda Estella Watts LANTUS 100 UNIT/ML SOLN 20 units at HS INSULIN GLARGINE 16710631639 Active Rosalinda Estella Watts BACTROBAN 2 % CREAM apply to affected area BID for 7 days MUPIROCIN CALCIUM 17182732142 No Longer Active Rosalinda Estella Watts AMBIEN 5 MG TABS 1 PO Q HS ZOLPIDEM TARTRATE 04927147332 Active Rosalinda Estella Watts ZOLOFT 50 MG TABS 1 PO DAILY SERTRALINE HCL 16678097572 Active Rosalinda Estella Watts BRILINTA 90 MG TABS 1 po BID TICAGRELOR 98533746383 No Longer Active Rosalinda Estella Watts LEVSIN 0.125 MG TAB 1 PO before meals HYOSCYAMINE SULFATE 97920489949 No Longer Active Rosalinda Estella Watts TESSALON PERLES 100 MG CAPS 1 PO TID prn cough BENZONATATE 49151979579 No Longer Active Rosalinda Estella Watts MUCINEX 600 MG TB12 1 PO BID as directed GUAIFENESIN 74704046811 No Longer Active Rosalinda Estella Watts ROBITUSSIN A-C 10-100 MG/5ML SYRUP 1 teaspoon PO Q 4-6 hr prn ROBITUSSIN A-C 10-100 MG/5ML SYRUP No Longer Active Rosalinda Estella Watts PREDNISONE 10 MG TAB 6 PO AT ONE TIME DIRECTED UNTIL FURTHER NOTICE 01/22 PREDNISONE 25027358977 No Longer Active Rosalinda Estella Watts IMODIUM A-D 2 MG TABS 1 po after first diarrheal stool then 1 PO after every subsequent loose stool till max 8 pills a day LOPERAMIDE HCL 07940144640 No Longer Active Rosalinda Estella Watts PREDNISONE 20 MG TABS 2 PO DAILY X 2 DAYS, 1 PO DAILY X 2 DAYS PREDNISONE 39747591659 No Longer Active Rosalinda Estella Watts PREDNISONE 10 MG TAB 4 pills at once one time daily for 2 days then decrease by one pill every two days PREDNISONE 40228223818 No Longer Active Rosalinda Estella Watts CEFDINIR 300 MG CAPS 1 PO BID CEFDINIR 49277494501 No Longer Active Rosalinda Estella Watts LEVAQUIN 500 MG TAB 1 PO QD LEVOFLOXACIN 20819976717 No Longer Active Rosalinda Estella Watts CEFDINIR 300 MG CAPS 1 PO BID CEFDINIR 60564986219 No Longer Active Rosalinda Estella Watts PREDNISONE 10 MG TAB 3 po at one time for 2 days then 2 po at one time for 2 days then 1 po daily for 2 days PREDNISONE 12053957040 No Longer Active Rosalinda Estella Watts BRILINTA 90 MG TABS 1 PO BID TICAGRELOR 07792574653 No Longer Active Rosalinda Estella Watts IMDUR 30 MG TAB CR 1 PO daily ISOSORBIDE MONONITRATE 69604827097 No Longer Active Rosalinda Estella Watts MOBIC 15 MG TABS 1 PO daily MELOXICAM 60505176485 No Longer Active Rosalinda Estella Watts IMDUR 30 MG [id number] 1 PO daily ISOSORBIDE MONONITRATE 56529959240 No Longer Active Rosalinda Estella Watts RANEXA 500 MG [id number] 1 PO daily for 1 week then increase to 2 PO daily RANOLAZINE 77042104416 No Longer Active Rosalinda Estella Watts LOVAZA 1 GM CAPS 1 po daily [id number] ETHYL ESTERS 01848624501 No Longer Active Rosalinda Estella Watts FERROUS GLUCONATE IRON 246 (28 FE) MG TABS 1 PO daily FERROUS GLUCONATE 52311403210 No Longer Active Rosalinda Estella Watts FLETCHER 180 MG TABS 1 PO BID FEXOFENADINE HCL No Longer Active Rosalinda Estella Watts IBUPROFEN 200 MG TAB 2 PO TID prn IBUPROFEN 15162834024 No Longer Active Rosalinda Estella Watts SUDAFED 30 MG TAB 1 PO TID PSEUDOEPHEDRINE HCL 72467087763 No Longer Active Rosalinda Estella Watts NITROSTAT 0.4 MG SL TAB 1 pill under tongue at onset of pain 2013 NITROGLYCERIN 31648100240 No Longer Active Rosalinda Estella Watts LEVAQUIN 750 MG TABS 1 PO daily LEVOFLOXACIN 73747587572 No Longer Active Rosalinda Estella Watts ATROVENT 0.06 % SOLN 2 puffs each nostril TID prn runny nose 2013 IPRATROPIUM BROMIDE 31025397167 No Longer Active Rosalinda Estella Watts ROBITUSSIN A-C 10-100 MG/5ML SYRUP 1 teaspoon PO Q 4-6 hr prn ROBITUSSIN A-C 10-100 MG/5ML SYRUP No Longer Active Rosalindacayden Watts OMEPRAZOLE 20 MG CPDR 1 PO twice daily OMEPRAZOLE 76685620127 Active Rosalinda Estella Watts BIAXIN 500 MG TAB 1 PO BID CLARITHROMYCIN 87928397800 No Longer Active Rosalinda Estella Watts HUMALOG KWIKPEN 100 UNIT/ML SOLN 6-10 units before meals INSULIN LISPRO (HUMAN) 24240116152 No Longer Active Rosalinda Estella Watts PROMETHAZINE-CODEINE 6.25-10 MG/5ML SYRP 1 tsp po q4hrs prn 05/04 PROMETHAZINE-CODEINE 85590121059 No Longer Active Rosalinda Estella Watts CEFTIN 250 MG TABS 1 po BID CEFUROXIME AXETIL 97654560483 No Longer Active Rosalinda Estella Watts PREDNISONE 10 MG TAB 2 po daily for 3 days then 1 po daily for 5 days PREDNISONE 04300034552 No Longer Active Rosalinda Watts ASPIRIN 81 MG TAB 1 PO daily ASPIRIN 41066331491 Active Rosalinda Estella Watts ROBITUSSIN A-C 10-100 MG/5ML SYRUP 1 teaspoon PO Q 4-6 hr prn ROBITUSSIN A-C 10-100 MG/5ML SYRUP No Longer Active Florina Zambrano ATROVENT 0.06 % SOLN 2 puffs each nostril TID prn runny nose 2013 IPRATROPIUM BROMIDE 39352987563 No Longer Active Rosalinda Estella Watts PREDNISONE 10 MG TAB 2 PO BID for 2 days then 1 PO BID for 2 days, then one PO daily for 5 days PREDNISONE 19031807894 No Longer Active Rosalindacayden Watts ITRACONAZOLE 100 MG SOLUTION IRRIGATE 20 ML EACH NOSTRIL DAILY FOR 3 WEEKS ITRACONAZOLE 100 MG SOLUTION No Longer Active Rosalinda Watts ROBITUSSIN A-C 10-100 MG/5ML SYRUP 1 teaspoon PO Q 4-6 hr prn ROBITUSSIN A-C 10-100 MG/5ML SYRUP No Longer Active Florina WANG'Juliette NASAL SPRAY (DEXAMETHASONE, GENTAMICIN, SALINE) 2 puffs each nostril TID for [address] BASURTO NASAL SPRAY ( DEXAMETHASONE, GENTAMICIN, SALINE) No Longer Active Rosalinda Watts CEFTIN 250 MG TABS 1 PO BID for ten days CEFUROXIME AXETIL 06077626427 No Longer Active Rosalinda Watts PEN NEEDLES /16" 31G X 8 MM MISC as directed INSULIN PEN NEEDLE 67596915545 No Longer Active Rosalinda Watts IMIQUIMOD 5 % CREA apply to affected area daily as directed 12/19 IMIQUIMOD 81968042127 No Longer Active Rosalinda Watts VALTREX 1 GM TAB 1 PO BID VALACYCLOVIR HCL 15703093160 No Longer Active Rosalinda Watts CEFTIN 250 MG TABS 1 PO BID for 7 days CEFUROXIME AXETIL 16401396492 No Longer Active Rosalinda Watts METANX 2.8-25-2 MG TABS 1 PO BID [id number] No Longer Active Florina Zambrano SOLARAZE 3 % GEL apply to face BID DICLOFENAC SODIUM 16967190993 No Longer Active Rosalinda Watts HUMALOG 100 U/ML SOLN 10 units before meals INSULIN LISPRO (HUMAN) 95919119339 No Longer Active Rosalinda Watts CLINDAMYCIN HCL 150 MG CAPS 1 po TID for 3 weeks CLINDAMYCIN HCL 65184329418 No Longer Active Rosalinda Watts ITRACONAZOLE 100 MG IRRIGATE 20 ML EACH NOSTRIL DAILY FOR 3 WEEKS ITRACONAZOLE 100 MG No Longer Active Rosalinda Watts LACTINEX CHEW 2 chews PO TID LACTOBACILLUS 11920021601 No Longer Active Rosalindacayden Watts SPORANOX SOLN Irrigate 20ml each nostril daily for 3 weeks 01/24 ITRACONAZOLE SOLN 94133261266 No Longer Active Rosalinda Watts ROBITUSSIN A-C 10-100 MG/5ML SYRUP 1 teaspoon PO Q 4-6 hr prn ROBITUSSIN A-C 10-100 MG/5ML SYRUP No Longer Active Rosalinda Watts FLETCHER 180 MG TABS 1 PO BID FEXOFENADINE HCL No Longer Active Florina Zambrano MUCINEX 600 MG TB12 1 PO BID for 5 days GUAIFENESIN 34703777118 No Longer Active Florina Zambrano TESSALON 200 MG CAPS 1 PO TID prn cough BENZONATATE 67596680276 No Longer Active Rosalinda Watts ROBITUSSIN A-C 10-100 MG/5ML SYRUP 1 teaspoon PO Q 4-6 hr prn ROBITUSSIN A-C 10-100 MG/5ML SYRUP No Longer Active Rosalinda WANG'Juliette NASAL SPRAY (DEXAMETHASONE, GENTAMICIN, SALINE) 2 puffs each nostril TID for [address] WANG'S NASAL SPRAY ( DEXAMETHASONE, GENTAMICIN, SALINE) No Longer Active Rosalinda Watts CEFTIN 500 MG TABS 1 PO BID CEFUROXIME AXETIL 55151914826 No Longer Active Rosalinda Watts ATROVENT 0.06 % SOLN 2 puffs each nostril TID prn runny nose 2011 IPRATROPIUM BROMIDE 75992796545 No Longer Active Loan Fantasma ATROVENT 0.06 % SOLN 2 puffs each nostril TID prn runny nose 2010 IPRATROPIUM BROMIDE 90087010987 No Longer Active Rosalinda Estella Watts CICLOPIROX 0.77 % GEL apply to affected areas BID CICLOPIROX 02914348013 No Longer Active Rosalinda Estella Watts GENTAK 0.3 % OINT Apply BID x 10 days GENTAMICIN SULFATE 26119513872 No Longer Active Rosalinda Estella Watts BACTROBAN 2 % OINT apply to affected areas BID MUPIROCIN 14563785626 No Longer Active Rosalinda Estella Watts DIFFERIN 0.3 % GEL apply to affected areas BID ADAPALENE 18483016250 No Longer Active Rosalindacayden Watts DOXYCYCLINE HYCLATE 100 MG CAP 1 po BID DOXYCYCLINE HYCLATE 59023105993 No Longer Active Rosalinda Estella Watts TESSALON 200 MG CAPS 1 PO TID prn cough BENZONATATE 65760179688 No Longer Active Rosalindacayden Watts ROBITUSSIN A-C 10-100 MG/5ML SYRUP 1 teaspoon PO Q 4-6 hr prn ROBITUSSIN A-C 10-100 MG/5ML SYRUP No Longer Active Rosalindacayden Watts CEFTIN 500 MG TABS 1 PO BID for 10 days CEFUROXIME AXETIL 48013125580 No Longer Active Rosalindacayden WANG'S NASAL SPRAY (DEXAMETHASONE, GENTAMICIN, SALINE) 2 puffs each nostril TID for [address] WANG'S NASAL SPRAY ( DEXAMETHASONE, GENTAMICIN, SALINE) No Longer Active Rosalinda Estella Watts TESSALON 200 MG CAPS 1 PO TID prn cough BENZONATATE 05700989759 No Longer Active Rosalinda Estella Watts ROBITUSSIN A-C 10-100 MG/5ML SYRUP 1 teaspoon PO Q 4-6 hr prn ROBITUSSIN A-C 10-100 MG/5ML SYRUP No Longer Active Rosalinda Estella Watts FLETCHER 180 MG TABS 1 PO BID FEXOFENADINE HCL 32116054397 No Longer Active Rosalinda Estella Watts FLETCHER 180 MG TABS 1 PO BID for 2 weeks FEXOFENADINE HCL 41740884769 No Longer Active Rosalinda Estella Watts ROBITUSSIN A-C 10-100 MG/5ML SYRUP 1 teaspoon PO Q 4-6 hr prn ROBITUSSIN A-C 10-100 MG/5ML SYRUP No Longer Active Rosalinda Estella Watts ATROVENT 0.06 % SOLN 2 puffs each nostril TID runny nose IPRATROPIUM BROMIDE 55133257429 No Longer Active Rosalinda Estella Watts HUMALOG 100 UNIT/ML SOLN 5 units before lunch and dinner INSULIN LISPRO (HUMAN) 72772931803 No Longer Active Rosalinda Estella Watts CIPRO 250 MG TABS 1 PO BID CIPROFLOXACIN HCL 21086546242 No Longer Active Rosalinda Estella Watts KENALOG 0.1 % CREA apply to affected areas BID prn rash TRIAMCINOLONE ACETONIDE No Longer Active Rosalinda Estella Watts BACTROBAN 2 % CREA as directed MUPIROCIN CALCIUM 27629467329 No Longer Active Rosalinda Estella Watts ERTACZO 2 % CREA as directed SERTACONAZOLE NITRATE 36130913493 No Longer Active Rosalinda Estella Watts ALUMINUM ACETATE SOLN apply wet dressings to affected areas TID ALUMINUM ACETATE 76815759837 No Longer Active Rosalinda Estella Watts NITROSTAT 0.4 MG SL TAB 1 pill under tongue prn chest pain 03/07 NITROGLYCERIN 52144319426 No Longer Active Rosalinda Estella Watts FERROUS GLUCONATE IRON 246 (28 FE) MG TABS 1 PO Daily FERROUS GLUCONATE 94511609806 No Longer Active Rosalinda Estella Watts ROBITUSSIN A-C 10-100 MG/5ML SYRUP 1 teaspoon PO Q 4-6 hr prn ROBITUSSIN A-C 10-100 MG/5ML SYRUP No Longer Active Rosalinda Estella Watts TESSALON 200 MG CAPS 1 PO TID prn cough BENZONATATE 92824086747 No Longer Active Rosalinda Estella Watts AUGMENTIN 500-125 MG TAB 1 PO BID AMOXICILLIN-POT CLAVULANATE 42332619887 No Longer Active Rosalinda WANG'S NASAL SPRAY (DEXAMETHASONE, GENTAMICIN, SALINE) 2 puffs each nostril TID for [address] WANG'S NASAL SPRAY ( DEXAMETHASONE, GENTAMICIN, SALINE) No Longer Active Rosalinda Watts ZITHROMAX 250 MG TAB 2 PO once then 1 PO daily AZITHROMYCIN 26228073919 No Longer Active Rosalindacayden Watts ROBITUSSIN A-C 10-100 MG/5ML SYRUP 1 teaspoon PO Q 4-6 hr prn ROBITUSSIN A-C 10-100 MG/5ML SYRUP No Longer Active Florina Zambrano TESSALON 200 MG CAPS 1 PO TID prn cough BENZONATATE 02046234144 No Longer Active Florina Zambrano DOXYCYCLINE HYCLATE 100 MG CAP 1 po BID x 2 weeks DOXYCYCLINE HYCLATE 32885365467 No Longer Active Rosalinda Estella Watts LAMISIL 250 MG TAB 1 PO daily TERBINAFINE HCL 43364759254 No Longer Active Rosalinda Estella Watts DIFFERIN 0.3 % GEL apply to affected area daily ADAPALENE 38154175037 No Longer Active Rosalinda Estella Watts VIAGRA 50 MG TABS DIRECTED SILDENAFIL CITRATE 44659784034 No Longer Active Rosalinda Estella Watts ZOCOR 20 MG TABS 1 PO daily SIMVASTATIN 45748619511 No Longer Active Florina Paul [place]s VYTORIN 10-20 MG TABS 1 po daily EZETIMIBE-SIMVASTATIN 80664939265 No Longer Active Florina Paul [place] ZOCOR 20 MG TAB 1 PO daily SIMVASTATIN 17221194937 No Longer Active Rosalinda Estella Watts KEFLEX 500 MG CAP 1 PO TID for 7 days for nose CEPHALEXIN 29209369640 No Longer Active Rosalinda Estella Watts TESSALON 200 MG CAPS 1 PO TID prn BENZONATATE 26375382588 No Longer Active Rosalinda Estella Watts ROBITUSSIN A-C 10-100 MG/5ML SYRUP 1 teaspoon PO Q 4-6 hr prn ROBITUSSIN A-C 10-100 MG/5ML SYRUP 84732128789 No Longer Active Rosalinda Estella Watts BIAXIN XL PAC 500 MG TB24 2 pills at same time daily for 7 days CLARITHROMYCIN 38636495236 No Longer Active Rosalinda Estella Watts PROMETHEGAN 12.5 MG SUPP 1 KS Q6hrs prn PROMETHAZINE HCL 78924149220 No Longer Active Rosalinda Estella Watts FLETCHER 180 MG TABS 1 PO QD FEXOFENADINE HCL 82114737645 No Longer Active Rosalinda Estella Watts ROBITUSSIN A-C 10-100 MG/5ML SYRUP 5cc PO Q 4-6 hr prn ROBITUSSIN A-C 10-100 MG/5ML SYRUP 41847169307 No Longer Active Rosalindacayden Watts ATROVENT 0.06 % SOLN 2 puffs each nostril TID prn runny nose 2006 IPRATROPIUM BROMIDE 01892061681 No Longer Active Rosalinda Estella Watts LORTAB 5 5-500 MG TABS 1 to 2 PO Q6hrs prn ACETAMINOPHEN-HYDROCODONE 39012148118 No Longer Active Rosalinda Estella Watts TRIAMCINOLONE ACETONIDE 0.5 % OINT Apply to affected areas BID for 7 days TRIAMCINOLONE ACETONIDE 85517548440 No Longer Active Rosalindacayden Watts DOXY-CAPS 100 MG CAPS 1 PO BID for 3 weeks DOXYCYCLINE HYCLATE 66640808606 No Longer Active Rosalindacayden Watts FLETCHER-D TB12 1 PO BID prn FEXOFENADINE- PSEUDOEPHEDRINE TB12 58685645694 No Longer Active Rosalindacayden Watts AUGMENTIN 500-125 MG TABS 1 po BID x 7 days AMOXICILLIN-POT CLAVULANATE 82965437610 No Longer Active Rosalinda WANG'Juliette NASAL SPRAY 2 puffs each nostril TID x [address] WANG'S NASAL SPRAY No Longer Active Rosalinda Watts FERROUS GLUCONATE 27 MG. 1 po BID FERROUS GLUCONATE 27 MG. No Longer Active Rosalinda Watts NEXIUM 40 MG CPDR 1 po daily ESOMEPRAZOLE MAGNESIUM 88242571327 No Longer Active Rosalinda Estella Watts AMOXICILLIN 500 MG CAPS 1 po BID x 7 days AMOXICILLIN 36258945215 No Longer Active Rosalindacayden Watts PREDNISONE 20 MG TAB 3 PO daily for 1 day then 2 PO daily for 2 days, 12/13 PREDNISONE 65704562881 No Longer Active Rosalindacayden Watts ALBUTEROL SULFATE 0.083 % NEBU SOLN 1 treatment 4 times daily ALBUTEROL SULFATE 42667564889 No Longer Active Rosalinda Estella Watts AFRIN NASAL SPRAY 0.05 % SOLN 2 puffs each nostril TID for 2 days only 12/06 OXYMETAZOLINE HCL 65498608191 No Longer Active Rosalinda Estella Watts BIAXIN 500 MG TABS 1 PO BID for 7 days. Do not take Vytorin while on this medication. CLARITHROMYCIN 92913285667 No Longer Active Rosalinda Estella Watts MUCINEX 600 MG TB12 1 po BID GUAIFENESIN 86425401985 No Longer Active Rosalinda Estella Watts TESSALON 200 MG CAPS 1 PO TID prn cough BENZONATATE 23408490111 No Longer Active Rosalinda Estella Watts NOVOLOG FLEXPEN 100 UNIT/ML SOLN Take 3 units before lunch 10/04 INSULIN ASPART 32438499720 No Longer Active Rosalinda Estella Watts CHLORPHENIRAMINE MALEATE 4 MG TABS 1 PO Q6hrs prn for cold 09/21 CHLORPHENIRAMINE MALEATE 24636651734 No Longer Active Rosalinda Estella Watts ATROVENT 0.06 % SOLN 2 puffs each nostril BID for 7 days IPRATROPIUM BROMIDE 05261747396 No Longer Active Rosalinda Estella Watts ROBITUSSIN A-C 10-100 MG/5ML SYRUP 5cc PO Q 4-6 hr prn ROBITUSSIN A-C 10-100 MG/5ML SYRUP 21922065231 No Longer Active Rosalinda Estella Watts CHLORPHENIRAMINE MALEATE 4 MG TABS 1 PO Q6hrs prn for cold 08/27 CHLORPHENIRAMINE MALEATE 33101701266 No Longer Active Rosalinda Estella Watts AUGMENTIN 500-125 MG TAB 1 PO BID for 7 days AMOXICILLIN-POT CLAVULANATE 34619907629 No Longer Active Rosalinda Estella Watts HUMALOG PEN 100 UNIT/ML SOLN 3 units SQ before lunch INSULIN LISPRO ( HUMAN) 08238025985 No Longer Active Rosalinda Estella Watts CENTRUM SILVER TABS 1 PO daily MULTIPLE VITAMINS- MINERALS 79939187943 No Longer Active Rosalinda Estella Watts LANTUS 100 U/ML SOLN 21 units SQ QHS INSULIN GLARGINE 82326753230 No Longer Active Rosalinda Estella Watts AVANDAMET 4-1000 MG TABS 1 po BID ROSIGLITAZONE-METFORMIN 66104027218 No Longer Active Rosalinda Estella Watts METFORMIN HCL 1000 MG TABS 1 po BID METFORMIN HCL 20438706200 No Longer Active Florina Zambrano AVANDIA 4 MG TABS 1 po BID ROSIGLITAZONE MALEATE 38524938621 No Longer Active Florina Zambrano LANTUS PEN 21 units QHS LANTUS PEN No Longer Active Rosalinda Estella Watts LORTAB 5 5-500 MG TABS 1 to 2 PO Q6hrs prn ACETAMINOPHEN-HYDROCODONE 37154754789 No Longer Active Rosalinda Estella Watts CIPRO 500 MG TAB 1 PO BID CIPROFLOXACIN HCL 64534127164 No Longer Active Rosalinda Estella Watts LEVSIN 0.125 MG TAB 1 PO Q6hrs prn cramping HYOSCYAMINE SULFATE 76649992801 No Longer Active Rosalinda Estella Watts OMEGA-3 1000 MG CAPS 1 PO QD OMEGA-3 FATTY ACIDS 18597061484 No Longer Active Rosalinda Estella Watts QUESTRAN LIGHT 4 GM PACK 1 packet in water TID CHOLESTYRAMINE LIGHT 15844885425 No Longer Active Rosalinda Estella Watts PRILOSEC OTC 20 MG TBEC 1 PO daily OMEPRAZOLE MAGNESIUM 43162763934 No Longer Active Rosalinda Estella Watts DOCUSATE SODIUM 50 MG/15ML SYRP 3 drops left ear. Let stand for 15 min. then rinse out with ball suction. Repeat daily. DOCUSATE SODIUM 15069817700 No Longer Active Rosalinda Estella Watts BENICAR 20 MG TABS [address] of Altace while cough is assessed 2005 OLMESARTAN MEDOXOMIL 68950914054 No Longer Active Rosalinda Estella Watts VYTORIN 10-20 MG TABS 1 PO daily EZETIMIBE-SIMVASTATIN 75125652762 No Longer Active Rosalinda Estella Watts PROTONIX 40 MG SOLR 1 po daily PANTOPRAZOLE SODIUM 08378068137 No Longer Active Rosalinda Estella Watts AVANDAMET 4-1000 MG TABS 1 po BID ROSIGLITAZONE-METFORMIN [id number] No Longer Active Warner Moreno FERROUS GLUCONATE 325 MG TABS 1 PO daily FERROUS GLUCONATE [id number] No Longer Active Rosalinda Estella Watts PROTONIX 20 MG TBEC 1 po daily PANTOPRAZOLE SODIUM 55700507990 No Longer Active Rosalinda Estella Watts CARDIZEM CD 180 MG CP24 1 daily DILTIAZEM HCL COATED BEADS 15598257117 No Longer Active Rosalinda Estella Watts PREVACID SOLUTAB 30 MG TBDP 1 PO QD LANSOPRAZOLE 15245154291 No Longer Active Rosalinda Estella Watts DIGOXIN 0.25 MG TABS 1 po daily DIGOXIN [id number] No Longer Active Rosalinda Estella Watts COREG 3.125 MG TABS 2 PO BID CARVEDILOL 52251826805 No Longer Active Rosalinda Estella Watts NOVOLOG FLEXPEN 100 U/ML SOLN INSULIN ASPART 92937468435 No Longer Active Rosalinda Estella Watts COUMADIN 3 MG TABS 1 PO odd days and 2 PO even days at 6pm 07/01 WARFARIN SODIUM [id number] No Longer Active Rosalinda Estella Watts CODICLEAR DH 5-100 MG/5ML SYRP 5 cc Po Q4-6prn HYDROCODONE-GUAIFENESIN [id number] No Longer Active Rosalinda Estella Watts ATROVENT 0.06 % SOLN 2 puffs BID IPRATROPIUM BROMIDE 18518695105 No Longer Active Rosalinda Estella Watts AMOXIL 875 MG TABS 1 PO BID AMOXICILLIN 37551612326 No Longer Active Rosalinda Estella Watts LORTAB 5 5-500 MG TABS 1 PO Q4-6hrs prn ACETAMINOPHEN -HYDROCODONE 85424165956 No Longer Active Rosalinda Estella Watts ACETAMINOPHEN 650 MG SUPP 1 KS Q6hrs prn ACETAMINOPHEN 17959470936 No Longer Active Rosalinda Estella Watts TYLENOL 325 MG TABS 2 PO Q6hrs prn ACETAMINOPHEN 18110404986 No Longer Active Rosalinda Estella Watts PHENERGAN 12.5 MG SUPP 1 [place] Q6hrs prn PROMETHAZINE HCL 83589026385 No Longer Active Rosalinda Estella Watts AMIODARONE HCL 200 MG TABS 1 tab po TID x one week, then 1 tab po daily 04/17 AMIODARONE HCL 97229485951 No Longer Active Rosalinda Estella Watts CIPRO XR 500 MG TB24 2 PO QD CIPROFLOX HCL-CIPRO BETAINE 69142258353 No Longer Active Rosalinda Estella Watts NIFEREX-150 FORTE CAPS 1 daily (Dr Avalos) FE BISGLY- FE [id number] No Longer Active Rosalinda Estella Watts NEXIUM 40 MG CPDR 1 PO QD ESOMEPRAZOLE MAGNESIUM 08788804470 No Longer Active Rosalinda Estella Watts AVANDIA 4 MG TABS 1 daily ROSIGLITAZONE MALEATE 84084529888 No Longer Active Rosalinda Estella Watts DARVOCET-N 100 650-100 MG TABS 1 Q3-4 hrs prn (Dr vAalos) PROPOXYPHENE N-APAP 74031470226 No Longer Active Rosalinda Estella Watts PLAVIX 75 MG TABS 1 daily (Dr Avalos) CLOPIDOGREL BISULFATE 88728644205 No Longer Active Rosalinda Estella Watts ASPIRIN 325 MG TAB 1 PO QAM ASPIRIN 61091881180 No Longer Active Rosalinda Estella Watts PROTONIX 40 MG TBEC 1 PO BID PANTOPRAZOLE SODIUM 53775576121 No Longer Active Rosalinda Estella Watts ALCORTIN 1-2-1 % GEL apply 3-4 times a day to affected areas 2004 [id number] POLYSACCH [id number] No Longer Active Rosalinda Estella Watts LIPITOR 20 MG TAB 1 PO QD ATORVASTATIN CALCIUM 39188775400 No Longer Active Rosalinda Estella Watts MULTIVITAMINS TABS 1 daily (Dr Avalso) MULTIPLE VITAMIN 15116004171 No Longer Active Rosalinda Estella Watts LOTREL 5-20 MG CAPS 1 daily AMLODIPINE BESY- BENAZEPRIL HCL 26678721894 No Longer Active Rosalinda Estella Watts HYCODAN 1.5-5 MG TABS 1 every 6hrs as needed HYDROCODONE-HOMATROPINE 36527037806 No Longer Active Rosalinda Estella Watts ZITHROMAX 500 MG TABS 1 daily for 6 days AZITHROMYCIN 88396075079 No Longer Active Rosalinda Estella Watts FLETCHER 180 MG TABS 1 daily FEXOFENADINE HCL 57357453210 No Longer Active Rosalinda Estella Watts ASTELIN 137 MCG/SPRAY SOLN 1 puff each nostril twice daily 09/19 AZELASTINE HCL 27384676065 No Longer Active Rosalinda Estella Watts PROTONIX 40 MG TBEC 1 po qd PANTOPRAZOLE SODIUM 11661074659 No Longer Active Rosalinda Estella Watts ATROVENT 0.06 % SOLN 2 puffs q nostril TID IPRATROPIUM BROMIDE 42018904038 No Longer Active Rosalinda Estella Watts FLONASE 50 MCG/DOSE INHALANT 1 puff each nostril BID FLONASE 50 MCG/DOSE INHALANT 00918634420 No Longer Active Rosalinda Estella Watts ZYRTEC 10 MG TAB 1 PO QD CETIRIZINE HCL 63606674796 No Longer Active Rosalinda Estella Watts OXISTAT 1 % CREA Apply BID x 7 days OXICONAZOLE NITRATE 58053626940 No Longer Active Rosalinda Esetlla Watts TESSALON 200 MG CAPS 1 PO TID prn BENZONATATE 86923978047 No Longer Active Rosalinda Estella Watts PNEUMOVAX 23 25 MCG/0.5ML INJ Received from [facility] [id number] PNEUMOCOCCAL VAC POLYVALENT [id number] No Longer Active Rosalinda Estella Watts AVANDAMET 4-1000 MG TABS 1 PO BID ROSIGLITAZONE-METFORMIN 64000949768 No Longer Active Rosalinda Estella Watts LIPITOR 20 MG TAB 1 PO QD ATORVASTATIN CALCIUM 72296684549 No Longer Active Rosalinda Estella Watts LIPITOR 20 MG TAB 1 PO QD ATORVASTATIN CALCIUM 72378332429 No Longer Active Rosalinda Estella Watts AVANDIA 4 MG TABS 1 tab po BID ROSIGLITAZONE MALEATE 68444685233 No Longer Active Rosalinda Estella Watts AVANDAMET 4-1000 MG TABS 1 PO BID ROSIGLITAZONE- METFORMIN 57907108885 No Longer Active Rosalinda Estella Mac ATROVENT 0.06 % SOLUTION 2 puffs q nostril Q6hrs prn IPRATROPIUM BROMIDE 52511361349 No Longer Active Rosalinda Estella Watts CLARINEX 5 MG TABS 1 PO QD DESLORATADINE 26901272090 No Longer Active Rosalinda Estella Watts ROBITUSSIN A-C 10-100 MG/5ML SYRUP 5cc. q 4-6 hrs. prn ROBITUSSIN A-C 10-100 MG/5ML SYRUP 70347927804 No Longer Active Rosalinda Estella Watts COZAAR 25 MG TAB 1 tab qd LOSARTAN POTASSIUM 17445344578 No Longer Active Rosalinda Estella Watts LANTUS 100 U/ML SOLN 20 units QHS INSULIN GLARGINE 58903836390 No Longer Active Rosalinda Estella Watts METFORMIN HCL 1000 MG TABS 1 tab po BID METFORMIN HCL 87697035003 No Longer Active Rosalinda Watts Immunizations Vaccine Administration Date Value Standard Description Influenza vaccine given done influenza virus vaccine, unspecified formulation Influenza vaccine given Done influenza virus vaccine, unspecified formulation pneumococcal immunization administered Given by Dr. Watts pneumococcal polysaccharide vaccine, 23 valent Comvax, combined Hemophilus influenza B and Hepatitis B virus vaccine 07/21 Haemophilus influenzae type b conjugate and Hepatitis B vaccine Vital Signs Date Name Value Unit Range Description pulse rate E&M - 8867-4 72 /min Heart rate respiratory rate E&M - 9279-1 16 /min Resp rate weight E&M - 3141-9 175 [lb_av] Weight Measured blood pressure, diastolic - 8462-4 78 mm[Hg] BP rehman blood pressure, systolic - 8480-6 120 mm[Hg] BP sys pulse rate E&M - 8867-4 80 /min Heart rate respiratory rate E&M - 9279-1 14 /min Resp rate temperature E&M 97.6 [degF] Body temperature blood pressure, diastolic - 8462-4 72 mm[Hg] BP rehman blood pressure, systolic - 8480-6 118 mm[Hg] BP sys pulse rate E&M - 8867-4 60 /min Heart rate respiratory rate E&M - 9279-1 14 /min Resp rate temperature E&M 97.6 [degF] Body temperature Diagnostic Results Date Name Value Unit Range Description Clinical Lists Update: CBC - Chemistry bilirubin, serum, total 1.0 mg/dL alkaline phosphatase, serum 60 U/L urea nitrogen, blood 23 mg/dL calcium, serum 9.0 mg/dL chloride, serum 97 mmol/L carbon dioxide, venous blood 23 mmol/L creatinine, serum 0.69 mg/dL Estimated Glomerular Filtration Rate (calc) >60 mL/min/1.73m2 glucose, plasma fasting 171 mg/dL anion gap, serum 8 sodium, serum 128 mmol/L albumin, serum 3.9 g/dL alanine aminotransferase (SGPT), serum 57 U/L aspartate aminotransferase (SGOT), serum 23 U/L protein, total, serum 6.3 g/dL potassium, serum 4.3 mmol/L Clinical Lists Update: CBC - Hematology hematocrit, blood 27.9 % hemoglobin, blood 10.5 g/dL platelet count 177 10*3/mm3 erythrocyte (RBC) count 3.14 10*6/mm3 leukocyte count, blood 3.1 10*3/mm3 mean corpuscular volume, RBC 88.9 fL red blood cell distribution width 15.6 % Clinical Lists Update: CBC,CMP - Chemistry Estimated Glomerular Filtration Rate (calc) >60 mL/min/1.73m2 glucose, plasma fasting 251 mg/dL albumin, serum 3.2 g/dL alkaline phosphatase, serum 107 U/L urea nitrogen, blood 11 mg/dL calcium, serum 8.4 mg/dL chloride, serum 101 mmol/L carbon dioxide, venous blood 26 mmol/L sodium, serum 135 mmol/L bilirubin, serum, total 0.9 mg/dL alanine aminotransferase (SGPT), serum 46 U/L aspartate aminotransferase (SGOT), serum 27 U/L protein, total, serum 6.1 g/dL potassium, serum 3.9 mmol/L creatinine, serum 0.75 mg/dL Clinical Lists Update: CBC,[facility] - Hematology platelet count 174 10*3/mm3 erythrocyte (RBC) count 2.92 10*6/mm3 leukocyte count, blood 1.0 10*3/mm3 mean corpuscular volume, RBC 88 fL red blood cell distribution width 14.0 % hemoglobin, blood 8.8 g/dL hematocrit, blood 26 % Clinical Lists Update: CBC,CMP,CHOL,TRIG,FERRITIN,HGA1C - Chemistry aspartate aminotransferase (SGOT), serum 19 U/L Estimated Glomerular Filtration Rate (calc) >60 mL/min/1.73m2 potassium, serum 3.7 mmol/L hemoglobin A1C, blood, as % of total hemoglobin 8.5 % ferritin, serum 178 ng/mL creatinine, serum 0.70 mg/dL carbon dioxide, venous blood 26 mmol/L cholesterol, serum 136 mg/dL chloride, serum 102 mmol/L calcium, serum 9.0 mg/dL urea nitrogen, blood 13 mg/dL alkaline phosphatase, serum 59 U/L albumin, serum 4.2 g/dL alanine aminotransferase (SGPT), serum 27 U/L bilirubin, serum, total 0.9 mg/dL triglyceride, serum, fasting 94 mg/dL sodium, serum 138 mmol/L anion gap, serum 10 glucose, plasma fasting 153 mg/dL protein, total, serum 6.6 g/dL Clinical Lists Update: CBC,CMP,CHOL,TRIG,FERRITIN,HGA1C - Hematology red blood cell distribution width 14.8 % hematocrit, blood 36.3 % hemoglobin, blood 13.2 g/dL platelet count 148 10*3/mm3 erythrocyte (RBC) count 4.06 10*6/mm3 leukocyte count, blood 4.0 10*3/mm3 mean corpuscular volume, RBC 89.4 fL Clinical Lists Update: CBC,CMP,ESR - Chemistry albumin, serum 3.5 g/dL potassium, serum 4.1 mmol/L Estimated Glomerular Filtration Rate (calc) >60 mL/min/1.73m2 alkaline phosphatase, serum 81 U/L chloride, serum 109 mmol/L calcium, serum 9.0 mg/dL urea nitrogen, blood 10 mg/dL Estimated Glomerular Filtration Rate (calc) >60 mL/min/1.73m2 glucose, plasma fasting 203 mg/dL sodium, serum 138 mmol/L bilirubin, serum, total 0.8 mg/dL alanine aminotransferase (SGPT), serum 37 U/L aspartate aminotransferase (SGOT), serum 29 U/L protein, total, serum 6.5 g/dL potassium, serum 4.0 mmol/L creatinine, serum 0.81 mg/dL carbon dioxide, venous blood 20 mmol/L protein, total, serum 6.1 g/dL aspartate aminotransferase (SGOT), serum 17 U/L alanine aminotransferase (SGPT), serum 27 U/L bilirubin, serum, total 1.2 mg/dL sodium, serum 132 mmol/L glucose, plasma fasting 289 mg/dL alkaline phosphatase, serum 81 U/L urea nitrogen, blood 10 mg/dL calcium, serum 8.9 mg/dL chloride, serum 100 mmol/L carbon dioxide, venous blood 25 mmol/L creatinine, serum 0.82 mg/dL albumin, serum 3.8 g/dL Clinical Lists Update: CBC,CMP,ESR - Hematology red blood cell distribution width 13.8 % mean corpuscular volume, RBC 91 fL leukocyte count, blood 6.6 10*3/mm3 erythrocyte (RBC) count 4.11 10*6/mm3 platelet count 160 10*3/mm3 hemoglobin, blood 13.4 g/dL hematocrit, blood 37 % erythrocyte sedimentation rate 10 mm/h red blood cell distribution width 15.2 % mean corpuscular volume, RBC 93 fL leukocyte count, blood 3.4 10*3/mm3 erythrocyte (RBC) count 3.22 10*6/mm3 platelet count 190 10*3/mm3 hemoglobin, blood 10.4 g/dL hematocrit, blood 30 % erythrocyte sedimentation rate 33 mm/h Clinical Lists Update: CBC,CMP,ESR,UA - Chemistry alkaline phosphatase, serum 76 U/L carbon dioxide, venous blood 25 mmol/L calcium, serum 8.5 mg/dL chloride, serum 96 mmol/L carbon dioxide, venous blood 23 mmol/L creatinine, serum 1.13 mg/dL potassium, serum 4.5 mmol/L protein, total, serum 6.6 g/dL aspartate aminotransferase (SGOT), serum 23 U/L alanine aminotransferase (SGPT), serum 46 U/L bilirubin, serum, total 2.0 mg/dL sodium, serum 129 mmol/L glucose, plasma fasting 450 mg/dL Estimated Glomerular Filtration Rate (calc) >60 mL/min/1.73m2 chloride, serum 104 mmol/L calcium, serum 7.9 mg/dL urea nitrogen, blood 8 mg/dL alkaline phosphatase, serum 61 U/L albumin, serum 3.0 g/dL albumin, serum 3.9 g/dL Estimated Glomerular Filtration Rate (calc) >60 mL/min/1.73m2 glucose, plasma fasting 259 mg/dL sodium, serum 135 mmol/L bilirubin, serum, total 0.8 mg/dL alanine aminotransferase (SGPT), serum 27 U/L aspartate aminotransferase (SGOT), serum 16 U/L protein, total, serum 5.2 g/dL potassium, serum 3.8 mmol/L creatinine, serum 0.71 mg/dL urea nitrogen, blood 24 mg/dL Clinical Lists Update: CBC,CMP,ESR,UA - Hematology erythrocyte sedimentation rate 35 mm/h hematocrit, blood 34 % hemoglobin, blood 12.5 g/dL platelet count 119 10*3/mm3 erythrocyte (RBC) count 3.71 10*6/mm3 leukocyte count, blood 5.6 10*3/mm3 mean corpuscular volume, RBC 91 fL red blood cell distribution width 16.9 % erythrocyte sedimentation rate 45 mm/h hematocrit, blood 21 % hemoglobin, blood 7.1 g/dL platelet count 278 10*3/mm3 erythrocyte (RBC) count 2.18 10*6/mm3 leukocyte count, blood 2.3 10*3/mm3 red blood cell distribution width 15.1 % mean corpuscular volume, RBC 94 fL Clinical Lists Update: CBC,CMP,ESR,UA - Urinalysis appearance, urine Clear Yellow urobilinogen, urine, semiquantitative (dipstick) 4 specific gravity, urine 1.020 pH, urine, semiquantitative 5 nitrite, urine, semiquantitative neg ketones, urine, by test strip 1+ bilirubin, urine neg glucose, urine, semiquantitative 3+ protein, urine, semiquantitative (dipstick) 1+ blood in urine (hemoglobin) by dipstick 2+ mucus on urinalysis neg epithelial cells, urine 2-5 /[LPF] hyaline casts, urine none /[LPF] bacteria, urine microscopy neg RBC urine by microscopy none WBC urine on microscopy 0-2 {Cells}/[HPF] appearance, urine Clear Yellow urobilinogen, urine, semiquantitative (dipstick) 1 specific gravity, urine 1.010 pH, urine, semiquantitative 5 nitrite, urine, semiquantitative neg ketones, urine, by test strip neg bilirubin, urine neg glucose, urine, semiquantitative 4+ protein, urine, semiquantitative (dipstick) 1+ blood in urine (hemoglobin) by dipstick neg mucus on urinalysis neg hyaline casts, urine present /[LPF] bacteria, urine microscopy moderate RBC urine by microscopy none WBC urine on microscopy none {Cells}/[HPF] Clinical Lists Update: CBC,CMP,FERRITIN DR [facility] - Chemistry Estimated Glomerular Filtration Rate (calc) >60 mL/min/1.73m2 albumin, serum 4.0 g/dL sodium, serum 140 mmol/L bilirubin, serum, total 0.7 mg/dL alanine aminotransferase (SGPT), serum 20 U/L aspartate aminotransferase (SGOT), serum 22 U/L protein, total, serum 7.0 g/dL potassium, serum 3.9 mmol/L ferritin, serum 72 ng/mL creatinine, serum 0.75 mg/dL carbon dioxide, venous blood 24 mmol/L chloride, serum 107 mmol/L calcium, serum 9.5 mg/dL urea nitrogen, blood 11 mg/dL alkaline phosphatase, serum 73 U/L glucose, plasma fasting 79 mg/dL Clinical Lists Update: CBC,CMP,FLP,FERRITIN,HGA1C,TSH - Chemistry Estimated Glomerular Filtration Rate (calc) >60 mL/min/1.73m2 glucose, plasma fasting 122 mg/dL cholesterol/HDL ratio, serum, percent 2.65 anion gap, serum 6 sodium, serum 137 mmol/L triglyceride, serum, fasting 98 mg/dL bilirubin, serum, total 1.0 mg/dL alanine aminotransferase (SGPT), serum 18 U/L aspartate aminotransferase (SGOT), serum 17 U/L protein, total, serum 7.1 g/dL potassium, serum 3.4 mmol/L LDL cholesterol, serum 52 mg/dL thyroid stimulating hormone, serum 1.513 u[iU]/mL hemoglobin A1C, blood, as % of total hemoglobin 7.7 % HDL cholesterol, serum 44 mg/dL ferritin, serum 255 ng/mL creatinine, serum 0.80 mg/dL carbon dioxide, venous blood 28 mmol/L cholesterol, serum 116 mg/dL chloride, serum 103 mmol/L calcium, serum 9.3 mg/dL urea nitrogen, blood 7 mg/dL alkaline phosphatase, serum 54 U/L albumin, serum 4.3 g/dL Clinical Lists Update: CBC,CMP,FLP,FERRITIN,HGA1C,TSH - Hematology red blood cell distribution width 13.7 % mean corpuscular volume, RBC 90.6 fL leukocyte count, blood 5.5 10*3/mm3 erythrocyte (RBC) count 3.82 10*6/mm3 platelet count 196 10*3/mm3 hemoglobin, blood 12.2 g/dL hematocrit, blood 34.6 % Clinical Lists Update: CBC,CMP,FLP,HgA1c,ESR - Chemistry Estimated Glomerular Filtration Rate (calc) >60 mL/min/1.73m2 alkaline phosphatase, serum 73 U/L urea nitrogen, blood 9 mg/dL calcium, serum 9.2 mg/dL chloride, serum 106 mmol/L carbon dioxide, venous blood 24 mmol/L creatinine, serum 0.82 mg/dL hemoglobin A1C, blood, as % of total hemoglobin 7.6 % albumin, serum 4.1 g/dL glucose, plasma fasting 166 mg/dL sodium, serum 140 mmol/L bilirubin, serum, total 1.0 mg/dL alanine aminotransferase (SGPT), serum 31 U/L aspartate aminotransferase (SGOT), serum 27 U/L protein, total, serum 6.8 g/dL potassium, serum 4.1 mmol/L Clinical Lists Update: CBC,CMP,FLP,HgA1c,ESR - Hematology erythrocyte sedimentation rate 7 mm/h hematocrit, blood 40 % hemoglobin, blood 14.3 g/dL platelet count 173 10*3/mm3 erythrocyte (RBC) count 4.44 10*6/mm3 leukocyte count, blood 5.5 10*3/mm3 mean corpuscular volume, RBC 89 fL red blood cell distribution width 13.0 % Clinical Lists Update: CBC,CMP,UA - Chemistry protein, total, serum 6.1 g/dL potassium, serum 4.3 mmol/L creatinine, serum 0.98 mg/dL carbon dioxide, venous blood 23 mmol/L chloride, serum 98 mmol/L calcium, serum 8.6 mg/dL urea nitrogen, blood 14 mg/dL alkaline phosphatase, serum 78 U/L albumin, serum 3.4 g/dL Estimated Glomerular Filtration Rate (calc) >60 mL/min/1.73m2 glucose, plasma fasting 239 mg/dL sodium, serum 132 mmol/L bilirubin, serum, total 1.2 mg/dL alanine aminotransferase (SGPT), serum 54 U/L aspartate aminotransferase (SGOT), serum 21 U/L protein, total, serum 6.4 g/dL potassium, serum 4.2 mmol/L creatinine, serum 0.86 mg/dL carbon dioxide, venous blood 25 mmol/L chloride, serum 98 mmol/L calcium, serum 8.7 mg/dL urea nitrogen, blood 19 mg/dL alkaline phosphatase, serum 68 U/L albumin, serum 3.8 g/dL Estimated Glomerular Filtration Rate (calc) >60 mL/min/1.73m2 glucose, plasma fasting 431 mg/dL sodium, serum 130 mmol/L bilirubin, serum, total 1.0 mg/dL alanine aminotransferase (SGPT), serum 40 U/L aspartate aminotransferase (SGOT), serum 27 U/L Clinical Lists Update: CBC,CMP,UA - Hematology hemoglobin, blood 10.8 g/dL hematocrit, blood 29 % erythrocyte (RBC) count 3.31 10*6/mm3 leukocyte count, blood 2.3 10*3/mm3 mean corpuscular volume, RBC 86 fL red blood cell distribution width 15.4 % erythrocyte sedimentation rate 36 mm/h hematocrit, blood 25 % hemoglobin, blood 8.8 g/dL platelet count 129 10*3/mm3 erythrocyte (RBC) count 2.74 10*6/mm3 leukocyte count, blood 1.9 10*3/mm3 mean corpuscular volume, RBC 92 fL red blood cell distribution width 14.0 % platelet count 230 10*3/mm3 Clinical Lists Update: CBC,CMP,UA - Urinalysis specific gravity, urine 1.010 pH, urine, semiquantitative 5 nitrite, urine, semiquantitative neg ketones, urine, by test strip neg bilirubin, urine neg glucose, urine, semiquantitative 4+ protein, urine, semiquantitative (dipstick) neg blood in urine (hemoglobin) by dipstick 1+ mucus on urinalysis small epithelial cells, urine rare /[LPF] hyaline casts, urine none /[LPF] bacteria, urine microscopy neg RBC urine by microscopy rare WBC urine on microscopy none {Cells}/[HPF] appearance, urine Clear Yellow urobilinogen, urine, semiquantitative (dipstick) 4 urobilinogen, urine, semiquantitative (dipstick) normal appearance, urine Clear Yellow WBC urine on microscopy rare {Cells}/[HPF] RBC urine by microscopy rare bacteria, urine microscopy neg hyaline casts, urine none /[LPF] epithelial cells, urine rare /[LPF] mucus on urinalysis neg blood in urine (hemoglobin) by dipstick neg protein, urine, semiquantitative (dipstick) 1+ glucose, urine, semiquantitative 4+ bilirubin, urine 1+ ketones, urine, by test strip 2+ nitrite, urine, semiquantitative neg specific gravity, urine 1.020 pH, urine, semiquantitative 5 Clinical Lists Update: Ferritin - Chemistry ferritin, serum 100 ng/mL Clinical Lists Update: Ferritin, Microalbumin - Chemistry ferritin, serum 118 ng/mL Clinical Lists Update: Ferritin, Microalbumin - Urinalysis microalbumin, urine, semiquantitative 9.1 mg/dL Clinical Lists Update: [facility] - Chemistry Estimated Glomerular Filtration Rate (calc) >60 mL/min/1.73m2 glucose, plasma fasting 264 mg/dL sodium, serum 130 mmol/L bilirubin, serum, total 1.2 mg/dL alanine aminotransferase (SGPT), serum 63 U/L aspartate aminotransferase (SGOT), serum 24 U/L protein, total, serum 5.9 g/dL potassium, serum 4.3 mmol/L bilirubin, serum, direct 0.6 mg/dL creatinine, serum 0.79 mg/dL carbon dioxide, venous blood 22 mmol/L chloride, serum 99 mmol/L calcium, serum 8.5 mg/dL urea nitrogen, blood 28 mg/dL alkaline phosphatase, serum 56 U/L albumin, serum 3.5 g/dL very low density lipoproteins 27 mg/dL triglyceride, serum, fasting 133 mg/dL LDL cholesterol, serum 50 mg/dL HDL cholesterol, serum 16 mg/dL cholesterol, serum 89 mg/dL Clinical Lists Update: [facility] - Coagulation international normalized ratio (INR) 1.1 PTT patient 33 s prothrombin time (patient) 13.5 s Clinical Lists Update: [facility] - Hematology hemoglobin, blood 11.0 g/dL platelet count 126 10*3/mm3 erythrocyte (RBC) count 3.31 10*6/mm3 leukocyte count, blood 4.3 10*3/mm3 mean corpuscular volume, RBC 89 fL erythrocyte sedimentation rate 30 mm/h red blood cell distribution width 15.8 % hematocrit, blood 30 % Clinical Lists Update: [facility] - Urinalysis nitrite, urine, semiquantitative neg ketones, urine, by test strip neg bilirubin, urine neg glucose, urine, semiquantitative 4+ pH, urine, semiquantitative 5 specific gravity, urine 1.020 urobilinogen, urine, semiquantitative (dipstick) 1 appearance, urine Clear Loan WBC urine on microscopy rare {Cells}/[HPF] RBC urine by microscopy none bacteria, urine microscopy neg hyaline casts, urine none /[LPF] protein, urine, semiquantitative (dipstick) 1+ mucus on urinalysis moderate blood in urine (hemoglobin) by dipstick 1+ epithelial cells, urine 5-10 /[LPF] Lab Report: A1C HPLC - Chemistry hemoglobin A1C, blood, as % of total hemoglobin 8.5 % 4.0-5.6 hemoglobin A1C, blood, as % of total hemoglobin 7.7 % 4.0-5.6 Lab Report: CBC - Chemistry lymphocytes, absolute, manual 1.58 10E9/L {Cells}/uL 1.00-4.00 polymorphonuclear neutrophils, absolute, manual 2.83 10E9/L { Cells}/uL 1.80-7.80 mean corpuscular hemoglobin concentration, rbc 35.3 g/dL 31.6- 35.5 monocytes, absolute, manual 0.68 10E9/L {Cells}/uL 0.20-1.00 basophils, absolute, manual 0.02 10E9/L {Cells}/uL 0.00-0.20 eosinophils, absolute, manual 0.39 10E9/L {Cells}/uL 0.00-0.45 mean corpuscular hemoglobin concentration, rbc 36.4 g/dL 31.6- 35.5 polymorphonuclear neutrophils, absolute, manual 1.66 10E9/L { Cells}/uL 1.80-7.80 lymphocytes, absolute, manual 2.18 10E9/L {Cells}/uL 1.00-4.00 monocytes, absolute, manual 0.12 10E9/L {Cells}/uL 0.20-1.00 eosinophils, absolute, manual 0.03 10E9/L {Cells}/uL 0.00-0.45 basophils, absolute, manual 0.01 10E9/L {Cells}/uL 0.00-0.20 mean corpuscular hemoglobin concentration, rbc 37.6 g/dL 31.6- 35.5 polymorphonuclear neutrophils, absolute, manual 0.58 10E9/L { Cells}/uL 1.80-7.80 lymphocytes, absolute, manual 2.34 10E9/L {Cells}/uL 1.00-4.00 monocytes, absolute, manual 0.14 10E9/L {Cells}/uL 0.20-1.00 eosinophils, absolute, manual 0.03 10E9/L {Cells}/uL 0.00-0.45 basophils, absolute, manual 0.01 10E9/L {Cells}/uL 0.00-0.20 Lab Report: CBC - Hematology lymphocytes as percent of blood leukocytes, manual count 54.6 % basophils as percent of blood leukocytes, automated count 0.3 % monocytes as percent of blood leukocytes 3.0 % mean corpuscular hemoglobin, RBC 32.5 pg 27.6-33.8 eosinophils as percent of blood leukocytes 0.7 % mean corpuscular volume, RBC 89.4 fL 83.7-99.8 hemoglobin, blood 13.2 g/dL 12.5-17.3 hematocrit, blood 36.3 % 38.3-51.2 platelet count 196 520-066 7110/01/23 basophils as percent of blood leukocytes, automated count 0.4 % neutrophil count, CSF 51.5 % lymphocytes as percent of blood leukocytes, manual count 28.7 % mean platelet volume 9.5 fL 9.5-12.8 monocytes as percent of blood leukocytes 12.3 % mean corpuscular hemoglobin, RBC 31.9 pg 27.6-33.8 eosinophils as percent of blood leukocytes 7.1 % mean corpuscular volume, RBC 90.6 fL 83.7-99.8 hemoglobin, blood 12.2 g/dL 12.5-17.3 hematocrit, blood 34.6 % 38.3-51.2 platelet count [phone] 2648/05/14 neutrophil count, CSF 41.5 % basophils as percent of blood leukocytes, automated count 0.2 % platelet count [phone] 0810/06/25 hematocrit, blood 27.9 % 38.3-51.2 hemoglobin, blood 10.5 g/dL 12.5-17.3 mean corpuscular volume, RBC 88.9 fL 83.7-99.8 eosinophils as percent of blood leukocytes 1.0 % mean corpuscular hemoglobin, RBC 33.4 pg 27.6-33.8 monocytes as percent of blood leukocytes 4.5 % mean platelet volume 9.0 fL 9.5-12.8 lymphocytes as percent of blood leukocytes, manual count 75.6 % neutrophil count, CSF 18.6 % mean platelet volume 9.2 fL 9.5-12.8 Lab Report: CHEM 14 - Chemistry protein total, urine 6.3 GM/DL 6.4-8.1 bicarbonate, serum 23 mmol/L 18-30 chloride, blood 97 mmol/L 96-108 sodium, serum 128 mmol/L [phone]/06/25 bilirubin, serum, total 1.0 mg/dL 0.1-1.3 alanine aminotransferase (SGPT), serum 57 U/L 0-40 aspartate aminotransferase (SGOT), serum 23 U/L 0-40 potassium, serum 4.3 mmol/L 3.5-5.5 calcium, serum 9.0 mg/dL 8.5-10.5 urea nitrogen, blood 23 mg/dL 5-26 blood glucose, random 171 mg/dL 70-100 alkaline phosphatase, serum 60 U/L 43-123 albumin, serum 3.9 g/dL 3.9-4.9 protein total, urine 6.6 GM/DL 6.4-8.1 bicarbonate, serum 26 mmol/L 18-30 chloride, blood 102 mmol/L 96-108 sodium, serum 138 mmol/L 520-044 4900/05/14 bilirubin, serum, total 0.9 mg/dL 0.1-1.3 alanine aminotransferase (SGPT), serum 27 U/L 0-40 aspartate aminotransferase (SGOT), serum 19 U/L 0-40 potassium, serum 3.7 mmol/L 3.5-5.5 calcium, serum 9.0 mg/dL 8.5-10.5 urea nitrogen, blood 13 mg/dL 5- blood glucose, random 153 mg/dL 70-100 alkaline phosphatase, serum 59 U/L 43-123 albumin, serum 4.2 g/dL 3.9-4.9 protein total, urine 7.1 GM/DL 6.4-8.1 bicarbonate, serum 28 mmol/L 18-30 chloride, blood 103 mmol/L 96-108 sodium, serum 137 mmol/L [phone]/01/23 bilirubin, serum, total 1.0 mg/dL 0.1-1.3 alanine aminotransferase (SGPT), serum 18 U/L 0-40 aspartate aminotransferase (SGOT), serum 17 U/L 0-40 potassium, serum 3.4 mmol/L 3.5-5.5 calcium, serum 9.3 mg/dL 8.5-10.5 urea nitrogen, blood 7 mg/dL 5- blood glucose, random 122 mg/dL 70-100 alkaline phosphatase, serum 54 U/L 43-123 albumin, serum 4.3 g/dL 3.9-4.9 Lab Report: CHEM 14 - Lab CREATININE 0.69 0.50-1.70 CREATININE 0.70 0.50-1.70 CREATININE 0.80 0.50-1.70 Lab Report: CHOL - Chemistry cholesterol, serum 136 mg/dL 100-200 Lab Report: FERRITIN - Chemistry ferritin, serum 255 ng/mL 25-300 ferritin, serum 178 ng/mL 25-300 Lab Report: LIPID GRP - Chemistry cholesterol, serum 116 mg/dL [phone]/01/23 triglyceride, serum, random 98 mg/dL 30-150 HDL cholesterol, serum 44 mg/dL 40-125 Lab Report: TRIG - Chemistry triglyceride, serum, random 94 mg/dL 30-150 Lab Report: TSH - Chemistry thyroid stimulating hormone, serum 1.513 u[iU]/mL 0.300-5.000 Encounters Code Encounter Date Provider Facility CPT-08068 Ofc Vst, Est Level II 16:41:43 SAP [employer]OBJ DEVELOPER Rosalinda Watts [facility] CPT-80197 Ofc Vst, Est Level IV 12:42:00 SAP [employer] DEVELOPER Rosalinda Watts [facility] CPT-26543 Ofc Vst, Est Level IV 10:07:46 SAP [employer] DEVELOPER Rosalinda Watts [facility] CPT-03345 Ofc Vst, Est Level IV 19:10:41 CDT Rosalinda Watts [facility] CPT-23616 Ofc Vst, Est Level III 12:37:04 CDT Rosalinda Watts [facility] [place] CPT-23293 Ofc Vst, Est Level III 13:35:40 CDT Rosalinda Watts [facility] [place] CPT-15208 Ofc Vst, Est Level II 08:58:03 SAP [employer] DEVELOPER Rosalinda Watts [facility] [place] CPT-02216 Ofc Vst, Est Level II 08:52:54 SAP [employer] DEVELOPER Rosalinda Watts [facility] [place] CPT-95947 Ofc Vst, Est Level II 14:13:36 SAP BOBJ DEVELOPER Rosalinda aWtts [facility] [place] CPT-02692 Ofc Vst, New Level IV 15:17:35 SAP [employer] DEVELOPER Rosalinda Watts [facility] [place] Procedures Code Procedure Name Date Entry Date Standard Description CPT-91878 Injection 10:49:38 SAP [employer] DEVELOPER CPT-14837 Injection, Pneumovax 10:49:38 SAP [employer] DEVELOPER CPT-14780 Influenza Vaccine 17:07:07 CDT CPT-G0008 Administration Influenza Vaccine 17:07:07 CDT CPT-23805 Cryopathy Skin 19:10:41 CDT CPT-64979 Ear Wax Removal 18:14:22 CDT
--- OUTSIDE RECORDS SUMMARY | 2017-04-16 13:15 | XMS REPORT | Clinical Summary ---
Author Author User, [employer] Organization [facility] [place] Address Unknown Phone Unavailable Allergies, Adverse Reactions, [...] as uncontrolled HYPERTENSION, BENIGN ESSENTIAL 401.1 Inactive Rosalinda Watts Benign essential hypertension HYPERLIPIDEMIA, MILD 272.4 [...] Coronary atherosclerosis of unspecified type of vessel, [place] or graft DUODENAL ULCER, ACUTE, HEMORRHAGE 532.00 [...] PO BID X 14 DAYS DOXYCYCLINE HYCLATE 14083667332 No Longer Active Florina Zambrano ALBUTEROL SULFATE 0.083 % NEBU SOLN 1 treatment QID prn wheezing ALBUTEROL SULFATE 07166524037 No Longer Active Rosalinda Watts SINGULAIR 10 MG TABS 1 PO AT HS MONTELUKAST SODIUM 13829824364 No Longer Active Rosalinda Watts VITAMIN D 1000 UNIT TABS 1 PO Daily CHOLECALCIFEROL 43705053694 No Longer Active Rosalinda Watts ADVAIR DISKUS 250-50 MCG/DOSE AEPB 1 puff BID FLUTICASONE- SALMETEROL 33424097727 Active Rosalinda Watts OXYCODONE-ACETAMINOPHEN 5-325 MG TABS 1 PO Q 4 HRS PRN PAIN 05/06 OXYCODONE-ACETAMINOPHEN 54452244153 No Longer Active Rosalinda Watts METANX 3-90.314-2-35 MG CAPS 1 PO BID L-METHYLFOLATE- [id number] 63414563763 No Longer Active Rosalinda Watts MOBIC 15 MG TABS 1 PO daily MELOXICAM 29571125530 No Longer Active Rosalinda aWtts FERROUS SULFATE CR 325 MG TBCR 1 PO QAM w/meals FERROUS SULFATE No Longer Active Rosalinda Estella Watts REGLAN 5 MG TABS 1-2 PO 30 minutes before meals and QHS METOCLOPRAMIDE HCL 02401354595 No Longer Active Rosalinda Estella Watts CRESTOR 10 MG TABS 1 PO daily ROSUVASTATIN CALCIUM 00554469154 No Longer Active Rosalinda Estella Watts ALTACE 10 MG CAP 1 PO daily RAMIPRIL 71082273729 No Longer Active Rosalinda Estella Watts COREG 6.25 MG TABS 1 PO BID CARVEDILOL 79147024048 No Longer Active Rosalinda Estella Watts METFORMIN HCL 1000 MG TABS 1 PO BID METFORMIN HCL 93061166647 No Longer Active Rosalinda Estella Watts HUMALOG 100 U/ML SOLN 15 units before meals INSULIN LISPRO (HUMAN) 03503358162 Active Rosalinda Estella Watts LANTUS 100 UNIT/ML SOLN 20 units at HS INSULIN GLARGINE 95348078677 Active Rosalinda Estella Watts BACTROBAN 2 % CREAM apply to affected area BID for 7 days MUPIROCIN CALCIUM 21422137304 No Longer Active Rosalinda Estella Watts AMBIEN 5 MG TABS 1 PO Q HS ZOLPIDEM TARTRATE 22295896996 Active Rosalinda Estella Watts ZOLOFT 50 MG TABS 1 PO DAILY SERTRALINE HCL 21083646854 Active Rosalinda Estella Watts BRILINTA 90 MG TABS 1 po BID TICAGRELOR 62951400626 No Longer Active Rosalinda Estella Watts LEVSIN 0.125 MG TAB 1 PO before meals HYOSCYAMINE SULFATE 80323355551 No Longer Active Rosalinda Estella Watts TESSALON PERLES 100 MG CAPS 1 PO TID prn cough BENZONATATE 55686379062 No Longer Active Rosalinda Estella Watts MUCINEX 600 MG TB12 1 PO BID as directed GUAIFENESIN 07737285655 No Longer Active Rosalinda Estella Watts ROBITUSSIN A-C 10-100 MG/5ML SYRUP 1 teaspoon PO Q 4-6 hr prn ROBITUSSIN A-C 10-100 MG/5ML SYRUP No Longer Active Rosalinda Estella Watts PREDNISONE 10 MG TAB 6 PO AT ONE TIME DIRECTED UNTIL FURTHER NOTICE 01/22 PREDNISONE 25694938558 No Longer Active Rosalinda Estella Watts IMODIUM A-D 2 MG TABS 1 po after first diarrheal stool then 1 PO after every subsequent loose stool till max 8 pills a day LOPERAMIDE HCL 63850354217 No Longer Active Rosalinda Estella Watts PREDNISONE 20 MG TABS 2 PO DAILY X 2 DAYS, 1 PO DAILY X 2 DAYS PREDNISONE 83343441168 No Longer Active Rosalinda Estella Watts PREDNISONE 10 MG TAB 4 pills at once one time daily for 2 days then decrease by one pill every two days PREDNISONE 08944457846 No Longer Active Rosalinda Estella Watts CEFDINIR 300 MG CAPS 1 PO BID CEFDINIR 16643661116 No Longer Active Rosalinda Estella Watts LEVAQUIN 500 MG TAB 1 PO QD LEVOFLOXACIN 80650070893 No Longer Active Rosalinda Estlela Watts CEFDINIR 300 MG CAPS 1 PO BID CEFDINIR 52306010761 No Longer Active Rosalinda Estella Watst PREDNISONE 10 MG TAB 3 po at one time for 2 days then 2 po at one time for 2 days then 1 po daily for 2 days PREDNISONE 25701956531 No Longer Active Rosalinda Estella Watts BRILINTA 90 MG TABS 1 PO BID TICAGRELOR 07849881697 No Longer Active Rosalinda Estella Watts IMDUR 30 MG TAB CR 1 PO daily ISOSORBIDE MONONITRATE 04884633021 No Longer Active Rosalinda Estella Watts MOBIC 15 MG TABS 1 PO daily MELOXICAM 51714658325 No Longer Active Rosalinda Estella Watts IMDUR 30 MG [id number] 1 PO daily ISOSORBIDE MONONITRATE 48930009713 No Longer Active Rosalinda Estella Watts RANEXA 500 MG [id number]-CGL 1 PO daily for 1 week then increase to 2 PO daily RANOLAZINE 40161165815 No Longer Active Rosalinda Estella Watts LOVAZA 1 GM CAPS 1 po daily [id number] ETHYL ESTERS 69362716659 No Longer Active Rosalinda Estella Watts FERROUS GLUCONATE IRON 246 (28 FE) MG TABS 1 PO daily FERROUS GLUCONATE 97640854981 No Longer Active Rosalinda Estella Watts FLETCHER 180 MG TABS 1 PO BID FEXOFENADINE HCL No Longer Active Rosalinda Estella Watts IBUPROFEN 200 MG TAB 2 PO TID prn IBUPROFEN 19207443033 No Longer Active Rosalinda Estella Watts SUDAFED 30 MG TAB 1 PO TID PSEUDOEPHEDRINE HCL 73714628809 No Longer Active Rosalinda Estella Watts NITROSTAT 0.4 MG SL TAB 1 pill under tongue at onset of pain 2013 NITROGLYCERIN 46092685558 No Longer Active Rosalinda Estella Watts LEVAQUIN 750 MG TABS 1 PO daily LEVOFLOXACIN 48858857819 No Longer Active Rosalinda Estella Watts ATROVENT 0.06 % SOLN 2 puffs each nostril TID prn runny nose 2013 IPRATROPIUM BROMIDE 99898804109 No Longer Active Rosalinda Estella Watts ROBITUSSIN A-C 10-100 MG/5ML SYRUP 1 teaspoon PO Q 4-6 hr prn ROBITUSSIN A-C 10-100 MG/5ML SYRUP No Longer Active Rosalindacayden Watts OMEPRAZOLE 20 MG CPDR 1 PO twice daily OMEPRAZOLE 58580456226 Active Rosalinda Estella Watts BIAXIN 500 MG TAB 1 PO BID CLARITHROMYCIN 67178783932 No Longer Active Rosalinda Estella Watts HUMALOG KWIKPEN 100 UNIT/ML SOLN 6-10 units before meals INSULIN LISPRO (HUMAN) 16858565802 No Longer Active Rosalinda Estella Watts PROMETHAZINE-CODEINE 6.25-10 MG/5ML SYRP 1 tsp po q4hrs prn 05/04 PROMETHAZINE-CODEINE 10942785051 No Longer Active Rosalinda Estella Watts CEFTIN 250 MG TABS 1 po BID CEFUROXIME AXETIL 71679064033 No Longer Active Rosalinda Estella Watts PREDNISONE 10 MG TAB 2 po daily for 3 days then 1 po daily for 5 days PREDNISONE 97278760081 No Longer Active Rosalinda Watts ASPIRIN 81 MG TAB 1 PO daily ASPIRIN 09096980671 Active Rosalinda Estella Watts ROBITUSSIN A-C 10-100 MG/5ML SYRUP 1 teaspoon PO Q 4-6 hr prn ROBITUSSIN A-C 10-100 MG/5ML SYRUP No Longer Active Florina Zambrano ATROVENT 0.06 % SOLN 2 puffs each nostril TID prn runny nose 2013 IPRATROPIUM BROMIDE 46482609134 No Longer Active Rosalinda Estella Watts PREDNISONE 10 MG TAB 2 PO BID for 2 days then 1 PO BID for 2 days, then one PO daily for 5 days PREDNISONE 33820094871 No Longer Active Rosalindacayden Watts ITRACONAZOLE 100 [...] PO BID for ten days CEFUROXIME AXETIL 72612751837 No Longer Active Rosalinda Watts PEN NEEDLES /16" 31G X 8 MM MISC as directed INSULIN PEN NEEDLE 62827331449 No Longer Active Rosalinda Watts IMIQUIMOD 5 % CREA apply to affected area daily as directed 12/19 IMIQUIMOD 10555977284 No Longer Active Rosalinda Watts VALTREX 1 GM TAB 1 PO BID VALACYCLOVIR HCL 50399156692 No Longer Active Rosalinda Watts CEFTIN 250 MG TABS 1 PO BID for 7 days CEFUROXIME AXETIL 57086223120 No Longer Active Rosalinda Watts METANX 2.8-25-2 MG TABS 1 PO BID [id number] No Longer Active Florina Zambrano SOLARAZE 3 % GEL apply to face BID DICLOFENAC SODIUM 52511341899 No Longer Active Rosalinda Watts HUMALOG 100 U/ML SOLN 10 units before meals INSULIN LISPRO (HUMAN) 42859965945 No Longer Active Rosalinda Watts CLINDAMYCIN HCL 150 MG CAPS 1 po TID for 3 weeks CLINDAMYCIN HCL 22783209110 No Longer Active Rosalinda Watts ITRACONAZOLE 100 MG IRRIGATE 20 ML EACH NOSTRIL DAILY FOR 3 WEEKS ITRACONAZOLE 100 MG No Longer Active Rosalinda Watts LACTINEX CHEW 2 chews PO TID LACTOBACILLUS 68541075924 No Longer Active Rosalindacayden Watts SPORANOX SOLN Irrigate 20ml each nostril daily for 3 weeks 01/24 ITRACONAZOLE SOLN 73315374531 No Longer Active Rosalinda Watts ROBITUSSIN A-C 10-100 MG/5ML SYRUP 1 teaspoon PO Q 4-6 hr prn ROBITUSSIN A-C 10-100 MG/5ML SYRUP No Longer Active Rosalinda Watts FLETCHER 180 MG TABS 1 PO BID FEXOFENADINE HCL No Longer Active Florina Zambrano MUCINEX 600 MG TB12 1 PO BID for 5 days GUAIFENESIN 00370594317 No Longer Active Florina Zambrano TESSALON 200 MG CAPS 1 PO TID prn cough BENZONATATE 65816477985 No Longer Active Rosalinda Watts ROBITUSSIN A-C 10-100 MG/5ML SYRUP 1 teaspoon PO Q 4-6 hr prn ROBITUSSIN A-C 10-100 MG/5ML SYRUP No Longer Active Rosalinda WANG'Juliette NASAL SPRAY (DEXAMETHASONE, GENTAMICIN, SALINE) 2 puffs each nostril TID for [address] WANG'S NASAL SPRAY ( DEXAMETHASONE, GENTAMICIN, SALINE) No Longer Active Rosalinda Watts CEFTIN 500 MG TABS 1 PO BID CEFUROXIME AXETIL 79155640168 No Longer Active Rosalinda Watts ATROVENT 0.06 % SOLN 2 puffs each nostril TID prn runny nose 2011 IPRATROPIUM BROMIDE 40895424542 No Longer Active Loan Fantasma ATROVENT 0.06 % SOLN 2 puffs each nostril TID prn runny nose 2010 IPRATROPIUM BROMIDE 07976993328 No Longer Active Rosalinda Estella Watts CICLOPIROX 0.77 % GEL apply to affected areas BID CICLOPIROX 60131061858 No Longer Active Rosalinda Estella Watts GENTAK 0.3 % OINT Apply BID x 10 days GENTAMICIN SULFATE 40748387926 No Longer Active Rosalinda Estella Watts BACTROBAN 2 % OINT apply to affected areas BID MUPIROCIN 76877407836 No Longer Active Rosalinda Estella Watts DIFFERIN 0.3 % GEL apply to affected areas BID ADAPALENE 38701220538 No Longer Active Rosalindacayden Watts DOXYCYCLINE HYCLATE 100 MG CAP 1 po BID DOXYCYCLINE HYCLATE 67268187877 No Longer Active Rosalinda Estella Watts TESSALON 200 MG CAPS 1 PO TID prn cough BENZONATATE 09216266694 No Longer Active Rosalindacayden Watts ROBITUSSIN A-C 10-100 MG/5ML SYRUP 1 teaspoon PO Q 4-6 hr prn ROBITUSSIN A-C 10-100 MG/5ML SYRUP No Longer Active Rosalindacayden Watts CEFTIN 500 MG TABS 1 PO BID for 10 days CEFUROXIME AXETIL 12609764629 No Longer Active Rosalindacayden WANG'S NASAL SPRAY (DEXAMETHASONE, GENTAMICIN, SALINE) 2 puffs each nostril TID for [address] WANG'S NASAL SPRAY ( DEXAMETHASONE, GENTAMICIN, SALINE) No Longer Active Rosalinda Estella Watts TESSALON 200 MG CAPS 1 PO TID prn cough BENZONATATE 01901158840 No Longer Active Rosalinda Estella Watts ROBITUSSIN A-C 10-100 MG/5ML SYRUP 1 teaspoon PO Q 4-6 hr prn ROBITUSSIN A-C 10-100 MG/5ML SYRUP No Longer Active Rosalinda Estella Watts FLETCHER 180 MG TABS 1 PO BID FEXOFENADINE HCL 90499294221 No Longer Active Rosalinda Estella Watts FLETCHER 180 MG TABS 1 PO BID for 2 weeks FEXOFENADINE HCL 18822274716 No Longer Active Rosalinda Estella Watts ROBITUSSIN A-C 10-100 MG/5ML SYRUP 1 teaspoon PO Q 4-6 hr prn ROBITUSSIN A-C 10-100 MG/5ML SYRUP No Longer Active Rosalinda Estella Watts ATROVENT 0.06 % SOLN 2 puffs each nostril TID runny nose IPRATROPIUM BROMIDE 16620109608 No Longer Active Rosalinda Estella Watts HUMALOG 100 UNIT/ML SOLN 5 units before lunch and dinner INSULIN LISPRO (HUMAN) 78460221453 No Longer Active Rosalinda Estella Watts CIPRO 250 MG TABS 1 PO BID CIPROFLOXACIN HCL 29487274102 No Longer Active Rosalinda Estella Watts KENALOG 0.1 % CREA apply to affected areas BID prn rash TRIAMCINOLONE ACETONIDE No Longer Active Rosalinda Estella Watts BACTROBAN 2 % CREA as directed MUPIROCIN CALCIUM 07022107029 No Longer Active Rosalinda Estella Watts ERTACZO 2 % CREA as directed SERTACONAZOLE NITRATE 97225298849 No Longer Active Rosalinda Estella Watts ALUMINUM ACETATE SOLN apply wet dressings to affected areas TID ALUMINUM ACETATE 19491279024 No Longer Active Rosalinda Estella Watts NITROSTAT 0.4 MG SL TAB 1 pill under tongue prn chest pain 03/07 NITROGLYCERIN 50042564671 No Longer Active Rosalinda Estella Watts FERROUS GLUCONATE IRON 246 (28 FE) MG TABS 1 PO Daily FERROUS GLUCONATE 03630154039 No Longer Active Rosalinda Estella Watts ROBITUSSIN A-C 10-100 MG/5ML SYRUP 1 teaspoon PO Q 4-6 hr prn ROBITUSSIN A-C 10-100 MG/5ML SYRUP No Longer Active Rosalinda Estella Watts TESSALON 200 MG CAPS 1 PO TID prn cough BENZONATATE 03747171334 No Longer Active Rosalinda Estella Watts AUGMENTIN 500-125 MG TAB 1 PO BID AMOXICILLIN-POT CLAVULANATE 10427051843 No Longer Active Rosalinda WANG'S NASAL SPRAY (DEXAMETHASONE, GENTAMICIN, SALINE) 2 puffs each nostril TID for [address] WANG'S NASAL SPRAY ( DEXAMETHASONE, GENTAMICIN, SALINE) No Longer Active Rosalinda Watts ZITHROMAX 250 MG TAB 2 PO once then 1 PO daily AZITHROMYCIN 56342084899 No Longer Active Rosalindacayden Watts ROBITUSSIN A-C 10-100 MG/5ML SYRUP 1 teaspoon PO Q 4-6 hr prn ROBITUSSIN A-C 10-100 MG/5ML SYRUP No Longer Active Florina Zambrano TESSALON 200 MG CAPS 1 PO TID prn cough BENZONATATE 16009188730 No Longer Active Florina Zambrano DOXYCYCLINE HYCLATE 100 MG CAP 1 po BID x 2 weeks DOXYCYCLINE HYCLATE 19327869679 No Longer Active Rosalinda Estella Watts LAMISIL 250 MG TAB 1 PO daily TERBINAFINE HCL 42995504912 No Longer Active Rosalinda Estella Watts DIFFERIN 0.3 % GEL apply to affected area daily ADAPALENE 18804446721 No Longer Active Rosalinda Estella Watts VIAGRA 50 MG TABS DIRECTED SILDENAFIL CITRATE 26278723106 No Longer Active Rosalinda Estella Watts ZOCOR 20 MG TABS 1 PO daily SIMVASTATIN 17324136718 No Longer Active Florina [place] VYTORIN 10-20 MG TABS 1 po daily EZETIMIBE-SIMVASTATIN 50729202147 No Longer Active Florina [place] ZOCOR 20 MG TAB 1 PO daily SIMVASTATIN 22312478641 No Longer Active Rosalinda Estella Watts KEFLEX 500 MG CAP 1 PO TID for 7 days for nose CEPHALEXIN 76271903667 No Longer Active Rosalinda Estella Watts TESSALON 200 MG CAPS 1 PO TID prn BENZONATATE 15750710225 No Longer Active Rosalinda Estella Watts ROBITUSSIN A-C 10-100 MG/5ML SYRUP 1 teaspoon PO Q 4-6 hr prn ROBITUSSIN A-C 10-100 MG/5ML SYRUP 37927269938 No Longer Active Rosalinda Estella Watts BIAXIN XL PAC 500 MG TB24 2 pills at same time daily for 7 days CLARITHROMYCIN 36926262056 No Longer Active Rosalinda Estella Watts PROMETHEGAN 12.5 MG SUPP 1 VA Q6hrs prn PROMETHAZINE HCL 67578501080 No Longer Active Rosalinda Estella Watts FLETCHER 180 MG TABS 1 PO QD FEXOFENADINE HCL 19353667848 No Longer Active Rosalinda Estella Watts ROBITUSSIN A-C 10-100 MG/5ML SYRUP 5cc PO Q 4-6 hr prn ROBITUSSIN A-C 10-100 MG/5ML SYRUP 65036120815 No Longer Active Rosalindacayden Watts ATROVENT 0.06 % SOLN 2 puffs each nostril TID prn runny nose 2006 IPRATROPIUM BROMIDE 02372720249 No Longer Active Rosalinda Estella Watts LORTAB 5 5-500 MG TABS 1 to 2 PO Q6hrs prn ACETAMINOPHEN-HYDROCODONE 74388144716 No Longer Active Rosalinda Estella Watts TRIAMCINOLONE ACETONIDE 0.5 % OINT Apply to affected areas BID for 7 days TRIAMCINOLONE ACETONIDE 42560328356 No Longer Active Rosalindacayden Watts DOXY-CAPS 100 MG CAPS 1 PO BID for 3 weeks DOXYCYCLINE HYCLATE 98564916413 No Longer Active Rosalindacayden Watts FLETCHER-D TB12 1 PO BID prn FEXOFENADINE- PSEUDOEPHEDRINE TB12 97045303047 No Longer Active Rosalindacayden Watts AUGMENTIN 500-125 MG TABS 1 po BID x 7 days AMOXICILLIN-POT CLAVULANATE 00527910834 No Longer Active Rosalinda WANG'Juliette NASAL SPRAY 2 puffs each nostril TID x [address] WANG'S NASAL SPRAY No Longer Active Rosalinda Watts FERROUS GLUCONATE 27 MG. 1 po BID FERROUS GLUCONATE 27 MG. No Longer Active Rosalinda Watts NEXIUM 40 MG CPDR 1 po daily ESOMEPRAZOLE MAGNESIUM 70150226934 No Longer Active Rosalinda Estella Watts AMOXICILLIN 500 MG CAPS 1 po BID x 7 days AMOXICILLIN 91712088691 No Longer Active Rosalindacayden Watts PREDNISONE 20 MG TAB 3 PO daily for 1 day then 2 PO daily for 2 days, 12/13 PREDNISONE 54068826386 No Longer Active Rosalindacayden Watts ALBUTEROL SULFATE 0.083 % NEBU SOLN 1 treatment 4 times daily ALBUTEROL SULFATE 37045133599 No Longer Active Rosalinda Estella Watts AFRIN NASAL SPRAY 0.05 % SOLN 2 puffs each nostril TID for 2 days only 12/06 OXYMETAZOLINE HCL 41397653915 No Longer Active Rosalinda Estella Watts BIAXIN 500 MG TABS 1 PO BID for 7 days. Do not take Vytorin while on this medication. CLARITHROMYCIN 13589718953 No Longer Active Rosalinda Estella Watts MUCINEX 600 MG TB12 1 po BID GUAIFENESIN 91825409178 No Longer Active Rosalinda Estella Watts TESSALON 200 MG CAPS 1 PO TID prn cough BENZONATATE 75809744280 No Longer Active Rosalinda Estella Watts NOVOLOG FLEXPEN 100 UNIT/ML SOLN Take 3 units before lunch 10/04 INSULIN ASPART 61933909354 No Longer Active Rosalinda Estella Watts CHLORPHENIRAMINE MALEATE 4 MG TABS 1 PO Q6hrs prn for cold 09/21 CHLORPHENIRAMINE MALEATE 81386805744 No Longer Active Rosalinda Estella Watts ATROVENT 0.06 % SOLN 2 puffs each nostril BID for 7 days IPRATROPIUM BROMIDE 57111340180 No Longer Active Rosalinda Estella Watts ROBITUSSIN A-C 10-100 MG/5ML SYRUP 5cc PO Q 4-6 hr prn ROBITUSSIN A-C 10-100 MG/5ML SYRUP 48782975760 No Longer Active Rosalinda Estella Watts CHLORPHENIRAMINE MALEATE 4 MG TABS 1 PO Q6hrs prn for cold 08/27 CHLORPHENIRAMINE MALEATE 95478949101 No Longer Active Rosalinda Estella Watts AUGMENTIN 500-125 MG TAB 1 PO BID for 7 days AMOXICILLIN-POT CLAVULANATE 54813339690 No Longer Active Rosalinda Estella Watts HUMALOG PEN 100 UNIT/ML SOLN 3 units SQ before lunch INSULIN LISPRO ( HUMAN) 56505335963 No Longer Active Rosalinda Estella Watts CENTRUM SILVER TABS 1 PO daily MULTIPLE VITAMINS- MINERALS 05269122882 No Longer Active Rosalinda Estella Watts LANTUS 100 U/ML SOLN 21 units SQ QHS INSULIN GLARGINE 20160381594 No Longer Active Rosalinda Estella Watts AVANDAMET 4-1000 MG TABS 1 po BID ROSIGLITAZONE-METFORMIN 76676718646 No Longer Active Rosalinda Estella Watts METFORMIN HCL 1000 MG TABS 1 po BID METFORMIN HCL 89421824082 No Longer Active Florina Zambrano AVANDIA 4 MG TABS 1 po BID ROSIGLITAZONE MALEATE 15623118509 No Longer Active Florina Zambrano LANTUS PEN 21 units QHS LANTUS PEN No Longer Active Rosalinda Estella Watts LORTAB 5 5-500 MG TABS 1 to 2 PO Q6hrs prn ACETAMINOPHEN-HYDROCODONE 98149757696 No Longer Active Rosalinda Estella Watts CIPRO 500 MG TAB 1 PO BID CIPROFLOXACIN HCL 42355965144 No Longer Active Rosalinda Estella Watts LEVSIN 0.125 MG TAB 1 PO Q6hrs prn cramping HYOSCYAMINE SULFATE 60768847923 No Longer Active Rosalinda Estella Watts OMEGA-3 1000 MG CAPS 1 PO QD OMEGA-3 FATTY ACIDS 88126876927 No Longer Active Rosalinda Estella Watts QUESTRAN LIGHT 4 GM PACK 1 packet in water TID CHOLESTYRAMINE LIGHT 03532534716 No Longer Active Rosalinda Estella Watts PRILOSEC OTC 20 MG TBEC 1 PO daily OMEPRAZOLE MAGNESIUM 27954934180 No Longer Active Rosalinda Estella Watts DOCUSATE SODIUM 50 MG/15ML SYRP 3 drops left ear. Let stand for 15 min. then rinse out with ball suction. Repeat daily. DOCUSATE SODIUM 81081918550 No Longer Active Rosalinda Estella Watts BENICAR 20 MG TABS [address] of Altace while cough is assessed 2005 OLMESARTAN MEDOXOMIL 50292918389 No Longer Active Rosalinda Estella Watts VYTORIN 10-20 MG TABS 1 PO daily EZETIMIBE-SIMVASTATIN 24649463863 No Longer Active Rosalinda Estella Watts PROTONIX 40 MG SOLR 1 po daily PANTOPRAZOLE SODIUM 57389430219 No Longer Active Rosalinda Estella Watts AVANDAMET 4-1000 MG TABS 1 po BID ROSIGLITAZONE-METFORMIN 07882187462 No Longer Active Warner Moreno FERROUS GLUCONATE 325 MG TABS 1 PO daily FERROUS GLUCONATE 45785774174 No Longer Active Rosalinda Estella Watts PROTONIX 20 MG TBEC 1 po daily PANTOPRAZOLE SODIUM 48674363108 No Longer Active Rosalinda Estella Watts CARDIZEM CD 180 MG CP24 1 daily DILTIAZEM HCL COATED BEADS 27722875749 No Longer Active Rosalinda Estella Watts PREVACID SOLUTAB 30 MG TBDP 1 PO QD LANSOPRAZOLE 80697957613 No Longer Active Rosalinda Estella Watts DIGOXIN 0.25 MG TABS 1 po daily DIGOXIN 10923207342 No Longer Active Rosalinda Estella Watts COREG 3.125 MG TABS 2 PO BID CARVEDILOL 25013168414 No Longer Active Rosalinda Estella Watts NOVOLOG FLEXPEN 100 U/ML SOLN INSULIN ASPART 56646911390 No Longer Active Rosalinda Estella Watts COUMADIN 3 MG TABS 1 PO odd days and 2 PO even days at 6pm 07/01 WARFARIN SODIUM 88552148751 No Longer Active Rosalinda Estella Watts CODICLEAR DH 5-100 MG/5ML SYRP 5 cc Po Q4-6prn HYDROCODONE-GUAIFENESIN 39644756180 No Longer Active Rosalinda Estella Watts ATROVENT 0.06 % SOLN 2 puffs BID IPRATROPIUM BROMIDE 50361297938 No Longer Active Rosalinda Estella Watts AMOXIL 875 MG TABS 1 PO BID AMOXICILLIN 97172329094 No Longer Active Rosalinda Estella Watts LORTAB 5 5-500 MG TABS 1 PO Q4-6hrs prn ACETAMINOPHEN -HYDROCODONE 65640508631 No Longer Active Rosalinda Estella Watts ACETAMINOPHEN 650 MG SUPP 1 VA Q6hrs prn ACETAMINOPHEN 42867021607 No Longer Active Rosalinda Estella Watts TYLENOL 325 MG TABS 2 PO Q6hrs prn ACETAMINOPHEN 69746202790 No Longer Active Rosalinda Estella Watts PHENERGAN 12.5 MG SUPP 1 VA Q6hrs prn PROMETHAZINE HCL 59517471516 No Longer Active Rosalinda Estella Watts AMIODARONE HCL 200 MG TABS 1 tab po TID x one week, then 1 tab po daily 04/17 AMIODARONE HCL 07922239051 No Longer Active Rosalinda Estella Watts CIPRO XR 500 MG TB24 2 PO QD CIPROFLOX HCL-CIPRO BETAINE 47106715471 No Longer Active Rosalinda Estella Watts NIFEREX-150 FORTE CAPS 1 daily (Dr Avalos) FE BISGLY- FE [id number] 29794777335 No Longer Active Rosalinda Estella Watts NEXIUM 40 MG CPDR 1 PO QD ESOMEPRAZOLE MAGNESIUM 99055950065 No Longer Active Rosalinda Estella Watts AVANDIA 4 MG TABS 1 daily ROSIGLITAZONE MALEATE 56804764867 No Longer Active Rosalinda Estella Watts DARVOCET-N 100 650-100 MG TABS 1 Q3-4 hrs prn (Dr Avalos) PROPOXYPHENE N-APAP 28676226258 No Longer Active Rosalinda Estella Watts PLAVIX 75 MG TABS 1 daily (Dr Avalos) CLOPIDOGREL BISULFATE 57580640334 No Longer Active Rosalinda Estella Watts ASPIRIN 325 MG TAB 1 PO QAM ASPIRIN 14414864614 No Longer Active Rosalinda Estella Watts PROTONIX 40 MG TBEC 1 PO BID PANTOPRAZOLE SODIUM 69469462304 No Longer Active Rosalinda Estella Watts ALCORTIN 1-2-1 % GEL apply 3-4 times a day to affected areas 2004 [id number] POLYSACCH 91231197600 No Longer Active Rosalinda Estella Watts LIPITOR 20 MG TAB 1 PO QD ATORVASTATIN CALCIUM 91653025971 No Longer Active Rosalinda Estella Watts MULTIVITAMINS TABS 1 daily (Dr Avalos) MULTIPLE VITAMIN 73241376753 No Longer Active Rosalinda Estella Watts LOTREL 5-20 MG CAPS 1 daily AMLODIPINE BESY- BENAZEPRIL HCL 32387838704 No Longer Active Rosalinda Estella Watts HYCODAN 1.5-5 MG TABS 1 every 6hrs as needed HYDROCODONE-HOMATROPINE 76751611095 No Longer Active Rosalinda Estella Watts ZITHROMAX 500 MG TABS 1 daily for 6 days AZITHROMYCIN 02175906871 No Longer Active Roslainda Estella Watts FLETCHER 180 MG TABS 1 daily FEXOFENADINE HCL 60122324398 No Longer Active Rosalinda Estella Watts ASTELIN 137 MCG/SPRAY SOLN 1 puff each nostril twice daily 09/19 AZELASTINE HCL 28747996231 No Longer Active Rosalinda Estella Watts PROTONIX 40 MG TBEC 1 po qd PANTOPRAZOLE SODIUM 65330092475 No Longer Active Rosalinda Estella Watts ATROVENT 0.06 % SOLN 2 puffs q nostril TID IPRATROPIUM BROMIDE 00213693326 No Longer Active Rosalinda Estella Watts FLONASE 50 MCG/DOSE INHALANT 1 puff each nostril BID FLONASE 50 MCG/DOSE INHALANT 28710891785 No Longer Active Rosalinda Estella Watts ZYRTEC 10 MG TAB 1 PO QD CETIRIZINE HCL [id number] No Longer Active Rosalinda Estella Wtats OXISTAT 1 % CREA Apply BID x 7 days OXICONAZOLE NITRATE [id number] No Longer Active Rosalinda Estella Watts TESSALON 200 MG CAPS 1 PO TID prn BENZONATATE [id number] No Longer Active Rosalinda Estella Watts PNEUMOVAX 23 25 MCG/0.5ML INJ Received from [facility] [id number] PNEUMOCOCCAL VAC POLYVALENT [id number] No Longer Active Rosalinda Estella Watts AVANDAMET 4-1000 MG TABS 1 PO BID ROSIGLITAZONE-METFORMIN [id number] No Longer Active Rosalinda Estella Watts LIPITOR 20 MG TAB 1 PO QD ATORVASTATIN CALCIUM [id number] No Longer Active Rosalinda Estella Watts LIPITOR 20 MG TAB 1 PO QD ATORVASTATIN CALCIUM [id number] No Longer Active Rosalinda Estella Watts AVANDIA 4 MG TABS 1 tab po BID ROSIGLITAZONE MALEATE [id number] No Longer Active Rosalinda Estella Watts AVANDAMET 4-1000 MG TABS 1 PO BID ROSIGLITAZONE- METFORMIN [id number] No Longer Active Rosalinda Estella Mac ATROVENT 0.06 % SOLUTION 2 puffs q nostril Q6hrs prn IPRATROPIUM BROMIDE [id number] No Longer Active Rosalinda Estella Watts CLARINEX 5 MG TABS 1 PO QD DESLORATADINE [id number] No Longer Active Rosalinda Estella Watts ROBITUSSIN A-C 10-100 MG/5ML SYRUP 5cc. q 4-6 hrs. prn ROBITUSSIN A-C 10-100 MG/5ML SYRUP [id number] No Longer Active Rosalinda Estella Watts COZAAR 25 MG TAB 1 tab qd LOSARTAN POTASSIUM [id number] No Longer Active Rosalinda Estella Watts LANTUS 100 U/ML SOLN 20 units QHS INSULIN GLARGINE [id number] No Longer Active Rosalinda Estella Watts METFORMIN HCL 1000 MG TABS 1 tab po BID METFORMIN HCL [id number] No Longer Active Rosalinda Watts Immunizations Vaccine [...] Description Clinical Lists Update: CBC - Chemistry Estimated Glomerular Filtration Rate (calc) >60 mL/min/1.73m2 glucose, plasma fasting 171 mg/dL albumin, serum 3.9 g/dL alkaline phosphatase, serum 60 U/L urea nitrogen, blood 23 mg/dL calcium, serum 9.0 mg/dL chloride, serum 97 mmol/L carbon dioxide, venous blood 23 mmol/L anion gap, serum 8 sodium, serum 128 mmol/L bilirubin, serum, total 1.0 mg/dL alanine aminotransferase (SGPT), serum 57 U/L aspartate aminotransferase (SGOT), serum 23 U/L protein, total, serum 6.3 g/dL potassium, serum 4.3 mmol/L creatinine, serum 0.69 mg/dL Clinical Lists Update: CBC - Hematology erythrocyte (RBC) count 3.14 10*6/mm3 leukocyte count, blood 3.1 10*3/mm3 mean corpuscular volume, RBC 88.9 fL red blood cell distribution width 15.6 % hemoglobin, blood 10.5 g/dL platelet count 177 10*3/mm3 hematocrit, blood 27.9 % Clinical Lists Update: CBC,CMP - Chemistry albumin, serum 3.2 g/dL carbon dioxide, venous blood 26 mmol/L aspartate aminotransferase (SGOT), serum 27 U/L alanine aminotransferase (SGPT), serum 46 U/L bilirubin, serum, total 0.9 mg/dL sodium, serum 135 mmol/L glucose, plasma fasting 251 mg/dL Estimated Glomerular Filtration Rate (calc) >60 mL/min/1.73m2 potassium, serum 3.9 mmol/L creatinine, serum 0.75 mg/dL protein, total, serum 6.1 g/dL chloride, serum 101 mmol/L calcium, serum 8.4 mg/dL urea nitrogen, blood 11 mg/dL alkaline phosphatase, serum 107 U/L Clinical Lists Update: CBC,CMP - Hematology hematocrit, blood 26 % hemoglobin, blood 8.8 g/dL platelet count 174 10*3/mm3 erythrocyte (RBC) count 2.92 10*6/mm3 leukocyte count, blood 1.0 10*3/mm3 mean corpuscular volume, RBC 88 fL red blood cell distribution width 14.0 % Clinical Lists Update: CBC,CMP,CHOL,TRIG,FERRITIN,HGA1C - Chemistry hemoglobin A1C, blood, as % of total hemoglobin 8.5 % chloride, serum 102 mmol/L potassium, serum 3.7 mmol/L ferritin, serum 178 ng/mL creatinine, serum 0.70 mg/dL bilirubin, serum, total 0.9 mg/dL calcium, serum 9.0 mg/dL urea nitrogen, blood 13 mg/dL alkaline phosphatase, serum 59 U/L triglyceride, serum, fasting 94 mg/dL albumin, serum 4.2 g/dL glucose, plasma fasting 153 mg/dL carbon dioxide, venous blood 26 mmol/L cholesterol, serum 136 mg/dL Estimated Glomerular Filtration Rate (calc) >60 mL/min/1.73m2 alanine aminotransferase (SGPT), serum 27 U/L anion gap, serum 10 aspartate aminotransferase (SGOT), serum 19 U/L sodium, serum 138 mmol/L protein, total, serum 6.6 g/dL Clinical Lists Update: CBC,CMP,CHOL,TRIG,FERRITIN,HGA1C - Hematology red blood cell distribution width 14.8 % erythrocyte (RBC) count 4.06 10*6/mm3 platelet count 148 10*3/mm3 mean corpuscular volume, RBC 89.4 fL hemoglobin, blood 13.2 g/dL leukocyte count, blood 4.0 10*3/mm3 hematocrit, blood 36.3 % Clinical Lists Update: CBC,CMP,ESR - Chemistry potassium, serum 4.1 mmol/L albumin, serum 3.5 g/dL protein, total, serum 6.1 g/dL aspartate aminotransferase (SGOT), serum 17 U/L alanine aminotransferase (SGPT), serum 27 U/L bilirubin, serum, total 1.2 mg/dL sodium, serum 132 mmol/L glucose, plasma fasting 289 mg/dL Estimated Glomerular Filtration Rate (calc) >60 mL/min/1.73m2 alkaline phosphatase, serum 81 U/L urea nitrogen, blood 10 mg/dL calcium, serum 8.9 mg/dL chloride, serum 100 mmol/L carbon dioxide, venous blood 25 mmol/L creatinine, serum 0.82 mg/dL Clinical Lists Update: CBC,CMP,ESR - Hematology platelet count 190 10*3/mm3 erythrocyte (RBC) count 3.22 10*6/mm3 mean corpuscular volume, RBC 93 fL red blood cell distribution width 15.2 % hemoglobin, blood 10.4 g/dL leukocyte count, blood 3.4 10*3/mm3 hematocrit, blood 30 % erythrocyte sedimentation rate 33 mm/h Clinical Lists Update: CBC,CMP,ESR,UA - Chemistry alkaline phosphatase, serum 61 U/L Estimated Glomerular Filtration Rate (calc) >60 mL/min/1.73m2 Estimated Glomerular Filtration Rate (calc) >60 mL/min/1.73m2 glucose, plasma fasting 450 mg/dL glucose, plasma fasting 259 mg/dL sodium, serum 129 mmol/L sodium, serum 135 mmol/L bilirubin, serum, total 2.0 mg/dL bilirubin, serum, total 0.8 mg/dL alanine aminotransferase (SGPT), serum 46 U/L alanine aminotransferase (SGPT), serum 27 U/L aspartate aminotransferase (SGOT), serum 23 U/L aspartate aminotransferase (SGOT), serum 16 U/L protein, total, serum 6.6 g/dL protein, total, serum 5.2 g/dL albumin, serum 3.9 g/dL albumin, serum 3.0 g/dL potassium, serum 4.5 mmol/L potassium, serum 3.8 mmol/L creatinine, serum 1.13 mg/dL creatinine, serum 0.71 mg/dL carbon dioxide, venous blood 23 mmol/L carbon dioxide, venous blood 25 mmol/L chloride, serum 96 mmol/L chloride, serum 104 mmol/L calcium, serum 8.5 mg/dL calcium, serum 7.9 mg/dL urea nitrogen, blood 24 mg/dL urea nitrogen, blood 8 mg/dL alkaline phosphatase, serum 76 U/L Clinical Lists Update: CBC,CMP,ESR,UA - Hematology red blood cell distribution width 16.9 % erythrocyte sedimentation rate 45 mm/h mean corpuscular volume, RBC 91 fL mean corpuscular volume, RBC 94 fL leukocyte count, blood 5.6 10*3/mm3 leukocyte count, blood 2.3 10*3/mm3 erythrocyte (RBC) count 3.71 10*6/mm3 erythrocyte (RBC) count 2.18 10*6/mm3 platelet count 119 10*3/mm3 platelet count 278 10*3/mm3 hemoglobin, blood 12.5 g/dL hemoglobin, blood 7.1 g/dL hematocrit, blood 34 % hematocrit, blood 21 % erythrocyte sedimentation rate 35 mm/h red blood cell distribution width 15.1 % Clinical Lists Update: CBC,CMP,ESR,UA - Urinalysis mucus on urinalysis neg epithelial cells, urine 2-5 /[LPF] hyaline casts, urine none /[LPF] hyaline casts, urine present /[LPF] bacteria, urine microscopy neg bacteria, urine microscopy moderate RBC urine by microscopy none RBC urine by microscopy none WBC urine on microscopy 0-2 {Cells}/[HPF] WBC urine on microscopy none {Cells}/[HPF] appearance, urine Clear Yellow appearance, urine Clear Yellow urobilinogen, urine, semiquantitative (dipstick) 1 urobilinogen, urine, semiquantitative (dipstick) 4 specific gravity, urine 1.010 specific gravity, urine 1.020 pH, urine, semiquantitative 5 pH, urine, semiquantitative 5 nitrite, urine, semiquantitative neg nitrite, urine, semiquantitative neg ketones, urine, by test strip neg ketones, urine, by test strip 1+ bilirubin, urine neg bilirubin, urine neg glucose, urine, semiquantitative 4+ glucose, urine, semiquantitative 3+ protein, urine, semiquantitative (dipstick) 1+ protein, urine, semiquantitative (dipstick) 1+ blood in urine (hemoglobin) by dipstick 2+ blood in urine (hemoglobin) by dipstick neg mucus on urinalysis neg Clinical Lists Update: CBC,CMP,FERRITIN DR LI LABS - Chemistry aspartate aminotransferase (SGOT), serum 22 U/L alanine aminotransferase (SGPT), serum 20 U/L potassium, serum 3.9 mmol/L albumin, serum 4.0 g/dL ferritin, serum 72 ng/mL creatinine, serum 0.75 mg/dL carbon dioxide, venous blood 24 mmol/L chloride, serum 107 mmol/L calcium, serum 9.5 mg/dL urea nitrogen, blood 11 mg/dL alkaline phosphatase, serum 73 U/L Estimated Glomerular Filtration Rate (calc) >60 mL/min/1.73m2 glucose, plasma fasting 79 mg/dL sodium, serum 140 mmol/L bilirubin, serum, total 0.7 mg/dL protein, total, serum 7.0 g/dL Clinical Lists Update: CBC,CMP,FLP,FERRITIN,HGA1C,TSH - Chemistry protein, total, serum 7.1 g/dL potassium, serum 3.4 mmol/L albumin, serum 4.3 g/dL LDL cholesterol, serum 52 mg/dL thyroid stimulating hormone, serum 1.513 u[iU]/mL hemoglobin A1C, blood, as % of total hemoglobin 7.7 % HDL cholesterol, serum 44 mg/dL ferritin, serum 255 ng/mL creatinine, serum 0.80 mg/dL carbon dioxide, venous blood 28 mmol/L cholesterol, serum 116 mg/dL chloride, serum 103 mmol/L calcium, serum 9.3 mg/dL urea nitrogen, blood 7 mg/dL alkaline phosphatase, serum 54 U/L Estimated Glomerular Filtration Rate (calc) >60 mL/min/1.73m2 glucose, plasma fasting 122 mg/dL cholesterol/HDL ratio, serum, percent 2.65 anion gap, serum 6 sodium, serum 137 mmol/L triglyceride, serum, fasting 98 mg/dL bilirubin, serum, total 1.0 mg/dL alanine aminotransferase (SGPT), serum 18 U/L aspartate aminotransferase (SGOT), serum 17 U/L Clinical Lists Update: CBC,CMP,FLP,FERRITIN,HGA1C,TSH - Hematology erythrocyte (RBC) count 3.82 10*6/mm3 leukocyte count, blood 5.5 10*3/mm3 platelet count 196 10*3/mm3 hematocrit, blood 34.6 % red blood cell distribution width 13.7 % hemoglobin, blood 12.2 g/dL mean corpuscular volume, RBC 90.6 fL Clinical Lists Update: CBC,CMP,FLP,HgA1c,ESR - Chemistry albumin, serum 4.1 g/dL aspartate aminotransferase (SGOT), serum 27 U/L protein, total, serum 6.8 g/dL potassium, serum 4.1 mmol/L alanine aminotransferase (SGPT), serum 31 U/L bilirubin, serum, total 1.0 mg/dL sodium, serum 140 mmol/L glucose, plasma fasting 166 mg/dL Estimated Glomerular Filtration Rate (calc) >60 mL/min/1.73m2 alkaline phosphatase, serum 73 U/L urea nitrogen, blood 9 mg/dL hemoglobin A1C, blood, as % of total hemoglobin 7.6 % creatinine, serum 0.82 mg/dL carbon dioxide, venous blood 24 mmol/L chloride, serum 106 mmol/L calcium, serum 9.2 mg/dL Clinical Lists Update: CBC,CMP,FLP,HgA1c,ESR - Hematology erythrocyte sedimentation rate 7 mm/h red blood cell distribution width 13.0 % hematocrit, blood 40 % mean corpuscular volume, RBC 89 fL hemoglobin, blood 14.3 g/dL leukocyte count, blood 5.5 10*3/mm3 platelet count 173 10*3/mm3 erythrocyte (RBC) count 4.44 10*6/mm3 Clinical Lists Update: CBC,CMP,UA - Chemistry Estimated Glomerular Filtration Rate (calc) >60 mL/min/1.73m2 Estimated Glomerular Filtration Rate (calc) >60 mL/min/1.73m2 glucose, plasma fasting 239 mg/dL glucose, plasma fasting 431 mg/dL sodium, serum 132 mmol/L sodium, serum 130 mmol/L bilirubin, serum, total 1.2 mg/dL bilirubin, serum, total 1.0 mg/dL alanine aminotransferase (SGPT), serum 54 U/L alanine aminotransferase (SGPT), serum 40 U/L aspartate aminotransferase (SGOT), serum 21 U/L aspartate aminotransferase (SGOT), serum 27 U/L protein, total, serum 6.4 g/dL protein, total, serum 6.1 g/dL potassium, serum 4.2 mmol/L potassium, serum 4.3 mmol/L creatinine, serum 0.86 mg/dL creatinine, serum 0.98 mg/dL carbon dioxide, venous blood 25 mmol/L carbon dioxide, venous blood 23 mmol/L chloride, serum 98 mmol/L chloride, serum 98 mmol/L calcium, serum 8.7 mg/dL calcium, serum 8.6 mg/dL urea nitrogen, blood 19 mg/dL urea nitrogen, blood 14 mg/dL alkaline phosphatase, serum 68 U/L alkaline phosphatase, serum 78 U/L albumin, serum 3.8 g/dL albumin, serum 3.4 g/dL Clinical Lists Update: CBC,CMP,UA - Hematology red blood cell distribution width 15.4 % hemoglobin, blood 10.8 g/dL platelet count 230 10*3/mm3 erythrocyte (RBC) count 2.74 10*6/mm3 erythrocyte (RBC) count 3.31 10*6/mm3 red blood cell distribution width 14.0 % leukocyte count, blood 1.9 10*3/mm3 leukocyte count, blood 2.3 10*3/mm3 mean corpuscular volume, RBC 92 fL mean corpuscular volume, RBC 86 fL erythrocyte sedimentation rate 36 mm/h hematocrit, blood 25 % hematocrit, blood 29 % hemoglobin, blood 8.8 g/dL platelet count 129 10*3/mm3 Clinical Lists Update: CBC,CMP,UA - Urinalysis hyaline casts, urine none /[LPF] hyaline casts, urine none /[LPF] bacteria, urine microscopy neg bacteria, urine microscopy neg RBC urine by microscopy rare RBC urine by microscopy rare WBC urine on microscopy none {Cells}/[HPF] WBC urine on microscopy rare {Cells}/[HPF] appearance, urine Clear Yellow appearance, urine Clear Yellow urobilinogen, urine, semiquantitative (dipstick) 4 urobilinogen, urine, semiquantitative (dipstick) normal specific gravity, urine 1.020 specific gravity, urine 1.010 pH, urine, semiquantitative 5 pH, urine, semiquantitative 5 epithelial cells, urine rare /[LPF] epithelial cells, urine rare /[LPF] mucus on urinalysis neg mucus on urinalysis small blood in urine (hemoglobin) by dipstick neg blood in urine (hemoglobin) by dipstick 1+ protein, urine, semiquantitative (dipstick) neg protein, urine, semiquantitative (dipstick) 1+ glucose, urine, semiquantitative 4+ glucose, urine, semiquantitative 4+ bilirubin, urine neg bilirubin, urine 1+ ketones, urine, by test strip neg ketones, urine, by test strip 2+ nitrite, urine, semiquantitative neg nitrite, urine, semiquantitative neg Clinical Lists Update: Ferritin, Microalbumin - Chemistry ferritin, serum 118 ng/mL Clinical Lists Update: Ferritin, Microalbumin - Urinalysis microalbumin, urine, semiquantitative 9.1 mg/dL Clinical Lists Update: IN PT LABS - Chemistry Estimated Glomerular Filtration Rate (calc) >60 mL/min/1.73m2 Estimated Glomerular Filtration Rate (calc) 38 mL/min/1.73m2 Estimated Glomerular Filtration Rate (calc) 59 mL/min/1.73m2 glucose, plasma fasting 264 mg/dL glucose, plasma fasting 213 mg/dL glucose, plasma fasting 250 mg/dL very low density lipoproteins 27 mg/dL anion gap, serum 8 anion gap, serum 30 sodium, serum 130 mmol/L sodium, serum 140 mmol/L sodium, serum 136 mmol/L triglyceride, serum, fasting 133 mg/dL bilirubin, serum, total 1.2 mg/dL bilirubin, serum, total 0.9 mg/dL bilirubin, serum, total 0.7 mg/dL alanine aminotransferase (SGPT), serum 63 U/L alanine aminotransferase (SGPT), serum 92 U/L alanine aminotransferase (SGPT), serum 53 U/L aspartate aminotransferase (SGOT), serum 24 U/L aspartate aminotransferase (SGOT), serum 44 U/L aspartate aminotransferase (SGOT), serum 23 U/L protein, total, serum 5.9 g/dL protein, total, serum 4.3 g/dL protein, total, serum 4.8 g/dL potassium, serum 4.3 mmol/L potassium, serum 4.1 mmol/L potassium, serum 3.7 mmol/L LDL cholesterol, serum 50 mg/dL HDL cholesterol, serum 16 mg/dL bilirubin, serum, direct 0.6 mg/dL creatinine, serum 0.79 mg/dL creatinine, serum 1.77 mg/dL creatinine, serum 1.21 mg/dL carbon dioxide, venous blood 22 mmol/L carbon dioxide, venous blood 29 mmol/L carbon dioxide, venous blood 30 mmol/L cholesterol, serum 89 mg/dL chloride, serum 99 mmol/L chloride, serum 103 mmol/L chloride, serum 98 mmol/L calcium, serum 8.5 mg/dL calcium, serum 7.8 mg/dL calcium, serum 8.0 mg/dL urea nitrogen, blood 28 mg/dL urea nitrogen, blood 44 mg/dL urea nitrogen, blood 22 mg/dL alkaline phosphatase, serum 56 U/L alkaline phosphatase, serum 298 U/L alkaline phosphatase, serum 213 U/L albumin, serum 3.5 g/dL albumin, serum 2.1 g/dL albumin, serum 2.5 g/dL Clinical Lists Update: IN PT LABS - Coagulation prothrombin time (patient) 13.5 s PTT patient 33 s international normalized ratio (INR) 1.1 Clinical Lists Update: IN PT LABS - Hematology hematocrit, blood 25 % red blood cell distribution width 14.9 % red blood cell distribution width 14.3 % red blood cell distribution width 15.8 % erythrocyte sedimentation rate 30 mm/h hematocrit, blood 27 % mean corpuscular volume, RBC 89 fL hematocrit, blood 30 % hemoglobin, blood 8.8 g/dL hemoglobin, blood 8.4 g/dL hemoglobin, blood 11.0 g/dL platelet count 220 10*3/mm3 platelet count 161 10*3/mm3 platelet count 126 10*3/mm3 erythrocyte (RBC) count 3.07 10*6/mm3 erythrocyte (RBC) count 2.97 10*6/mm3 mean corpuscular volume, RBC 85 fL mean corpuscular volume, RBC 88 fL leukocyte count, blood 4.3 10*3/mm3 leukocyte count, blood 9.0 10*3/mm3 leukocyte count, blood 12.8 10*3/mm3 erythrocyte (RBC) count 3.31 10*6/mm3 Clinical Lists Update: IN PT LABS - Urinalysis specific gravity, urine 1.020 glucose, urine, semiquantitative 4+ appearance, urine Clear Loan WBC urine on microscopy rare {Cells}/[HPF] RBC urine by microscopy none bacteria, urine microscopy neg hyaline casts, urine none /[LPF] epithelial cells, urine 5-10 /[LPF] mucus on urinalysis moderate blood in urine (hemoglobin) by dipstick 1+ nitrite, urine, semiquantitative neg ketones, urine, by test strip neg bilirubin, urine neg pH, urine, semiquantitative 5 protein, urine, semiquantitative (dipstick) 1+ urobilinogen, urine, semiquantitative (dipstick) 1 Lab Report: A1C HPLC - Chemistry hemoglobin A1C, blood, as % of total hemoglobin 7.7 % 4.0-5.6 hemoglobin A1C, blood, as % of total hemoglobin 8.5 % 4.0-5.6 Lab Report: CBC - Chemistry polymorphonuclear neutrophils, absolute, manual 1.66 10E9/L { Cells}/uL 1.80-7.80 polymorphonuclear neutrophils, absolute, manual 0.58 10E9/L { Cells}/uL 1.80-7.80 polymorphonuclear neutrophils, absolute, manual 2.83 10E9/L { Cells}/uL 1.80-7.80 mean corpuscular hemoglobin concentration, rbc 37.6 g/dL 31.6- 35.5 mean corpuscular hemoglobin concentration, rbc 36.4 g/dL 31.6- 35.5 mean corpuscular hemoglobin concentration, rbc 35.3 g/dL 31.6- 35.5 basophils, absolute, manual 0.01 10E9/L {Cells}/uL 0.00-0.20 basophils, absolute, manual 0.01 10E9/L {Cells}/uL 0.00-0.20 basophils, absolute, manual 0.02 10E9/L {Cells}/uL 0.00-0.20 monocytes, absolute, manual 0.14 10E9/L {Cells}/uL 0.20-1.00 monocytes, absolute, manual 0.12 10E9/L {Cells}/uL 0.20-1.00 monocytes, absolute, manual 0.68 10E9/L {Cells}/uL 0.20-1.00 eosinophils, absolute, manual 0.03 10E9/L {Cells}/uL 0.00-0.45 eosinophils, absolute, manual 0.03 10E9/L {Cells}/uL 0.00-0.45 eosinophils, absolute, manual 0.39 10E9/L {Cells}/uL 0.00-0.45 lymphocytes, absolute, manual 2.34 10E9/L {Cells}/uL 1.00-4.00 lymphocytes, absolute, manual 2.18 10E9/L {Cells}/uL 1.00-4.00 lymphocytes, absolute, manual 1.58 10E9/L {Cells}/uL 1.00-4.00 Lab Report: CBC - Hematology mean platelet volume 9.5 fL 9.5-12.8 basophils as percent of blood leukocytes, automated count 0.4 % mean platelet volume 9.0 fL 9.5-12.8 mean corpuscular volume, RBC 90.6 fL 83.7-99.8 mean corpuscular volume, RBC 89.4 fL 83.7-99.8 mean corpuscular volume, RBC 88.9 fL 83.7-99.8 lymphocytes as percent of blood leukocytes, manual count 28.7 % lymphocytes as percent of blood leukocytes, manual count 54.6 % lymphocytes as percent of blood leukocytes, manual count 75.6 % eosinophils as percent of blood leukocytes 7.1 % eosinophils as percent of blood leukocytes 0.7 % eosinophils as percent of blood leukocytes 1.0 % monocytes as percent of blood leukocytes 12.3 % monocytes as percent of blood leukocytes 3.0 % monocytes as percent of blood leukocytes 4.5 % hemoglobin, blood 10.5 g/dL 12.5-17.3 hemoglobin, blood 13.2 g/dL 12.5-17.3 hemoglobin, blood 12.2 g/dL 12.5-17.3 neutrophil count, CSF 18.6 % neutrophil count, CSF 41.5 % neutrophil count, CSF 51.5 % hematocrit, blood 27.9 % 38.3-51.2 hematocrit, blood 36.3 % 38.3-51.2 hematocrit, blood 34.6 % 38.3-51.2 platelet count 177 922-738 7337/05/14 platelet count 145 100-398 8376/01/23 platelet count 196 740-898 4426/06/25 mean corpuscular hemoglobin, RBC 33.4 pg 27.6-33.8 mean corpuscular hemoglobin, RBC 32.5 pg 27.6-33.8 mean corpuscular hemoglobin, RBC 31.9 pg 27.6-33.8 basophils as percent of blood leukocytes, automated count 0.3 % basophils as percent of blood leukocytes, automated count 0.2 % mean platelet volume 9.2 fL 9.5-12.8 Lab Report: CHEM 14 - Chemistry urea nitrogen, blood 23 mg/dL 5- blood glucose, random 122 mg/dL 70-100 blood glucose, random 153 mg/dL 70-100 blood glucose, random 171 mg/dL 70-100 protein total, urine 7.1 GM/DL 6.4-8.1 protein total, urine 6.6 GM/DL 6.4-8.1 protein total, urine 6.3 GM/DL 6.4-8.1 potassium, serum 3.4 mmol/L 3.5-5.5 potassium, serum 3.7 mmol/L 3.5-5.5 potassium, serum 4.3 mmol/L 3.5-5.5 chloride, blood 103 mmol/L 96-108 chloride, blood 102 mmol/L 96-108 chloride, blood 97 mmol/L 96-108 sodium, serum 137 mmol/L 813-902 2392/05/14 sodium, serum 138 mmol/L 252-247 7766/06/25 sodium, serum 128 mmol/L 802-173 8586/01/23 alanine aminotransferase (SGPT), serum 18 U/L 0-40 alanine aminotransferase (SGPT), serum 27 U/L 0-40 alanine aminotransferase (SGPT), serum 57 U/L 0-40 calcium, serum 9.3 mg/dL 8.5-10.5 calcium, serum 9.0 mg/dL 8.5-10.5 calcium, serum 9.0 mg/dL 8.5-10.5 bilirubin, serum, total 1.0 mg/dL 0.1-1.3 bilirubin, serum, total 0.9 mg/dL 0.1-1.3 bilirubin, serum, total 1.0 mg/dL 0.1-1.3 albumin, serum 4.3 g/dL 3.9-4.9 albumin, serum 4.2 g/dL 3.9-4.9 albumin, serum 3.9 g/dL 3.9-4.9 bicarbonate, serum 28 mmol/L 18-30 bicarbonate, serum 26 mmol/L 18-30 bicarbonate, serum 23 mmol/L 18-30 alkaline phosphatase, serum 54 U/L 43-123 alkaline phosphatase, serum 59 U/L 43-123 alkaline phosphatase, serum 60 U/L 43-123 aspartate aminotransferase (SGOT), serum 17 U/L 0-40 aspartate aminotransferase (SGOT), serum 19 U/L 0-40 aspartate aminotransferase (SGOT), serum 23 U/L 0-40 urea nitrogen, blood 7 mg/dL 5-26 urea nitrogen, blood 13 mg/dL 5- Lab Report: CHEM 14 - Lab CREATININE 0.69 0.50-1.70 CREATININE 0.70 0.50-1.70 CREATININE 0.80 0.50-1.70 Lab Report: CHOL - Chemistry cholesterol, serum 136 mg/dL 100-200 Lab Report: FERRITIN - Chemistry ferritin, serum 255 ng/mL 25-300 ferritin, serum 178 ng/mL 25-300 Lab Report: LIPID GRP - Chemistry HDL cholesterol, serum 44 mg/dL 40-125 triglyceride, serum, random 98 mg/dL 30-150 cholesterol, serum 116 mg/dL 100-200 Lab Report: TRIG - Chemistry triglyceride, serum, random 94 mg/dL 30-150 Lab Report: TSH - Chemistry thyroid stimulating hormone, serum 1.513 u[iU]/mL 0.300-5.000 Encounters Code Encounter Date Provider Facility CPT-10730 Ofc Vst, Est Level II 16:41:43 [employer] Rosalinda Watts [facility] [place] CPT-52391 Ofc Vst, Est Level IV 12:42:00 [employer] Rosalinda Watts [facility] [place] CPT-01499 Ofc Vst, Est Level IV 10:07:46 [employer] Ros[facility]inda [facility] [place] CPT-66663 Ofc Vst, Est Level IV 19:10:41 CDT Rosalinda [facility] [place] CPT-67776 Ofc Vst, Est Level III 12:37:04 CDT Rosalinda Estella Watts [facility] [place] CPT-77374 Ofc Vst, Est Level III 13:35:40 CDT Rosalinda Estella Watts [facility] [place] CPT-41049 Ofc Vst, Est Level II 08:58:03 [employer] Rosalinda [facility] [place] CPT-52541 Ofc Vst, Est Level II 08:52:54 [employer] Rosalinda Watts [facility] [place] CPT-63691 Ofc Vst, Est Level II 14:13:36 [employer] Rosalinda Watts [facility] [place] CPT-97082 Ofc Vst, New Level IV 15:17:35 [employer] Rosalinda Watts [facility] [place] Procedures Code Procedure Name Date Entry Date Standard Description CPT-35270 Injection 10:49:38 [employer] CPT-93697 Injection, Pneumovax 10:49:38 [employer] CPT-14363 Influenza Vaccine 17:07:07 CDT CPT-G0008 Administration Influenza Vaccine 17:07:07 CDT CPT-28057 Cryopathy Skin 19:10:41 CDT CPT-32659 Ear Wax Removal 18:14:22 CDT
[2017-04-16 13:24] LABS: ALANINE AMINOTRANSFERASE 25 U/L (0-55); ALBUMIN 3.7 GM/DL (3.2-4.5); ANION GAP 9 MMOL/L (5-14); ASPARTATE AMINO TRANSFERASE 18 U/L (5-34); BILIRUBIN,TOTAL 1.5 MG/DL (0.1-1.0); BLOOD UREA NITROGEN 12 MG/DL (7-18); BUN/CREATININE RATIO 16; CALCIUM 8.8 MG/DL (8.5-10.1); CARBON DIOXIDE 27 MMOL/L (21-32); CHLORIDE 99 MMOL/L (98-107); CREATININE SERUM 0.77 MG/DL (0.60-1.30); GFR ESTIMATED > 60; GLUCOSE 83 MG/DL (70-105); POTASSIUM 3.5 MMOL/L (3.6-5.0); SODIUM 135 MMOL/L (135-145); TOTAL PROTEIN 5.9 GM/DL (6.4-8.2)
--- OUTSIDE RECORDS SUMMARY | 2017-04-16 13:28 | XMS REPORT | Clinical Summary ---
Author Author User, Ntractive Organization [facility] [place] Address Unknown Phone Unavailable Allergies, Adverse Reactions, [...] Coronary atherosclerosis of unspecified type of vessel, little river or graft DUODENAL ULCER, ACUTE, HEMORRHAGE 532.00 [...] PO BID X 14 DAYS DOXYCYCLINE HYCLATE [id number] No Longer Active Florina Zambrano ALBUTEROL SULFATE 0.083 % NEBU SOLN 1 treatment QID prn wheezing ALBUTEROL SULFATE 35025958622 No Longer Active Rosalinda Watts SINGULAIR 10 MG TABS 1 PO AT HS MONTELUKAST SODIUM 76953288364 No Longer Active Rosalinda Watts VITAMIN D 1000 UNIT TABS 1 PO Daily CHOLECALCIFEROL 80203680220 No Longer Active Rosalinda Watts ADVAIR DISKUS 250-50 MCG/DOSE AEPB 1 puff BID FLUTICASONE- SALMETEROL 17801699423 Active Rosalinda Watts OXYCODONE-ACETAMINOPHEN 5-325 MG TABS 1 PO Q 4 HRS PRN PAIN 05/06 OXYCODONE-ACETAMINOPHEN 61676490570 No Longer Active Rosalinda Watts METANX 3-90.314-2-35 MG CAPS 1 PO BID L-METHYLFOLATE- [id number] 71801558056 No Longer Active Rosalinda Watts MOBIC 15 MG TABS 1 PO daily MELOXICAM 15392763434 No Longer Active Rosalinda Watts FERROUS SULFATE CR 325 MG TBCR 1 PO QAM w/meals FERROUS SULFATE No Longer Active Rosalinda Estella Watts REGLAN 5 MG TABS 1-2 PO 30 minutes before meals and QHS METOCLOPRAMIDE HCL 26470822961 No Longer Active Rosalinda Estella Watts CRESTOR 10 MG TABS 1 PO daily ROSUVASTATIN CALCIUM 89169628701 No Longer Active Rosalinda Estella Watts ALTACE 10 MG CAP 1 PO daily RAMIPRIL 91260352376 No Longer Active Rosalinda Estella Watts COREG 6.25 MG TABS 1 PO BID CARVEDILOL 80497387451 No Longer Active Rosalinda Estella Watts METFORMIN HCL 1000 MG TABS 1 PO BID METFORMIN HCL 20612181121 No Longer Active Rosalinda Estella Watts HUMALOG 100 U/ML SOLN 15 units before meals INSULIN LISPRO (HUMAN) 30226094244 Active Rosalinda Estella Watts LANTUS 100 UNIT/ML SOLN 20 units at HS INSULIN GLARGINE 67989854622 Active Rosalinda Estella Watts BACTROBAN 2 % CREAM apply to affected area BID for 7 days MUPIROCIN CALCIUM 67120097834 No Longer Active Rosalinda Estella Watts AMBIEN 5 MG TABS 1 PO Q HS ZOLPIDEM TARTRATE 75347720711 Active Rosalinda Estella Watts ZOLOFT 50 MG TABS 1 PO DAILY SERTRALINE HCL 36261641749 Active Rosalinda Estella Watts BRILINTA 90 MG TABS 1 po BID TICAGRELOR 57686824079 No Longer Active Rosalinda Estella Watts LEVSIN 0.125 MG TAB 1 PO before meals HYOSCYAMINE SULFATE 56316376856 No Longer Active Rosalinda Estella Watts TESSALON PERLES 100 MG CAPS 1 PO TID prn cough BENZONATATE 72789089301 No Longer Active Rosalinda Estella Watts MUCINEX 600 MG TB12 1 PO BID as directed GUAIFENESIN 87494612947 No Longer Active Rosalinda Estella Watts ROBITUSSIN A-C 10-100 MG/5ML SYRUP 1 teaspoon PO Q 4-6 hr prn ROBITUSSIN A-C 10-100 MG/5ML SYRUP No Longer Active Rosalinda Estella Watts PREDNISONE 10 MG TAB 6 PO AT ONE TIME DIRECTED UNTIL FURTHER NOTICE 01/22 PREDNISONE 04605944645 No Longer Active Rosalinda Estella Watts IMODIUM A-D 2 MG TABS 1 po after first diarrheal stool then 1 PO after every subsequent loose stool till max 8 pills a day LOPERAMIDE HCL 92573227465 No Longer Active Rosalinda Estella Watts PREDNISONE 20 MG TABS 2 PO DAILY X 2 DAYS, 1 PO DAILY X 2 DAYS PREDNISONE 72383307751 No Longer Active Rosalinda Estella Watts PREDNISONE 10 MG TAB 4 pills at once one time daily for 2 days then decrease by one pill every two days PREDNISONE 19638061073 No Longer Active Rosalinda Estella Watts CEFDINIR 300 MG CAPS 1 PO BID CEFDINIR 35028202444 No Longer Active Rosalinda Estella Watts LEVAQUIN 500 MG TAB 1 PO QD LEVOFLOXACIN 95002549092 No Longer Active Rosalinda Estella Watts CEFDINIR 300 MG CAPS 1 PO BID CEFDINIR 74089318468 No Longer Active Rosalinda Estella Watts PREDNISONE 10 MG TAB 3 po at one time for 2 days then 2 po at one time for 2 days then 1 po daily for 2 days PREDNISONE 33429920469 No Longer Active Rosalinda Estella Watts BRILINTA 90 MG TABS 1 PO BID TICAGRELOR 97870846838 No Longer Active Rosalinda Estella Watts IMDUR 30 MG TAB CR 1 PO daily ISOSORBIDE MONONITRATE 58439720516 No Longer Active Rosalinda Estella Watts MOBIC 15 MG TABS 1 PO daily MELOXICAM 43733336392 No Longer Active Rosalinda Estella Watts IMDUR 30 MG [id number] 1 PO daily ISOSORBIDE MONONITRATE 32462540262 No Longer Active Rosalinda Estella Watts RANEXA 500 MG [id number] 1 PO daily for 1 week then increase to 2 PO daily RANOLAZINE 09565453800 No Longer Active Rosalinda Estella Watts LOVAZA 1 GM CAPS 1 po daily [id number] ETHYL ESTERS 85581325001 No Longer Active Rosalinda Estella Watts FERROUS GLUCONATE IRON 246 (28 FE) MG TABS 1 PO daily FERROUS GLUCONATE 83422372390 No Longer Active Rosalinda Estella Watts FLETCHER 180 MG TABS 1 PO BID FEXOFENADINE HCL No Longer Active Rosalinda Estella Watts IBUPROFEN 200 MG TAB 2 PO TID prn IBUPROFEN 97627703070 No Longer Active Rosalinda Estella Watts SUDAFED 30 MG TAB 1 PO TID PSEUDOEPHEDRINE HCL 56201434488 No Longer Active Rosalinda Estella Watts NITROSTAT 0.4 MG SL TAB 1 pill under tongue at onset of pain 2013 NITROGLYCERIN 47402693596 No Longer Active Rosalinda Estella Watts LEVAQUIN 750 MG TABS 1 PO daily LEVOFLOXACIN 07960090099 No Longer Active Rosalinda Estella Watts ATROVENT 0.06 % SOLN 2 puffs each nostril TID prn runny nose 2013 IPRATROPIUM BROMIDE 74470903941 No Longer Active Rosalinda Estella Watts ROBITUSSIN A-C 10-100 MG/5ML SYRUP 1 teaspoon PO Q 4-6 hr prn ROBITUSSIN A-C 10-100 MG/5ML SYRUP No Longer Active Rosalinda Watts OMEPRAZOLE 20 MG CPDR 1 PO twice daily OMEPRAZOLE 10129140129 Active Rosalinda Estella Watts BIAXIN 500 MG TAB 1 PO BID CLARITHROMYCIN 63080832338 No Longer Active Rosalinda Estella Watts HUMALOG KWIKPEN 100 UNIT/ML SOLN 6-10 units before meals INSULIN LISPRO (HUMAN) 89613889828 No Longer Active Rosalinda Estella Watts PROMETHAZINE-CODEINE 6.25-10 MG/5ML SYRP 1 tsp po q4hrs prn 05/04 PROMETHAZINE-CODEINE 53622849212 No Longer Active Rosalindacayden Watts CEFTIN 250 MG TABS 1 po BID CEFUROXIME AXETIL 19417681972 No Longer Active Rosalinda Estella Watts PREDNISONE 10 MG TAB 2 po daily for 3 days then 1 po daily for 5 days PREDNISONE 26124586425 No Longer Active Rosalinda Watts ASPIRIN 81 MG TAB 1 PO daily ASPIRIN 53894708953 Active Rosalinda Estella Watts ROBITUSSIN A-C 10-100 MG/5ML SYRUP 1 teaspoon PO Q 4-6 hr prn ROBITUSSIN A-C 10-100 MG/5ML SYRUP No Longer Active Florina Zambrano ATROVENT 0.06 % SOLN 2 puffs each nostril TID prn runny nose 2013 IPRATROPIUM BROMIDE 56776040656 No Longer Active Rosalindacayden Watts PREDNISONE 10 MG TAB 2 PO BID for 2 days then 1 PO BID for 2 days, then one PO daily for 5 days PREDNISONE 53082513831 No Longer Active Rosalinda Watts ITRACONAZOLE 100 MG SOLUTION IRRIGATE 20 [...] PO BID for ten days CEFUROXIME AXETIL 50834183363 No Longer Active Rosalinda Watts PEN NEEDLES /16" 31G X 8 MM MISC as directed INSULIN PEN NEEDLE 52645627801 No Longer Active Rosalinda Watts IMIQUIMOD 5 % CREA apply to affected area daily as directed 12/19 IMIQUIMOD 21996031891 No Longer Active Rosalinda Watts VALTREX 1 GM TAB 1 PO BID VALACYCLOVIR HCL 20449847549 No Longer Active Rosalinda Watts CEFTIN 250 MG TABS 1 PO BID for 7 days CEFUROXIME AXETIL 13471909202 No Longer Active Rosalinda Watts METANX 2.8-25-2 MG TABS 1 PO BID [id number] No Longer Active Florina Zambrano SOLARAZE 3 % GEL apply to face BID DICLOFENAC SODIUM 32565765469 No Longer Active Rosalinda Watts HUMALOG 100 U/ML SOLN 10 units before meals INSULIN LISPRO (HUMAN) 76528166556 No Longer Active Rosalinda Watts CLINDAMYCIN HCL 150 MG CAPS 1 po TID for 3 weeks CLINDAMYCIN HCL 95057936225 No Longer Active Rosalinda Watts ITRACONAZOLE 100 MG IRRIGATE 20 ML EACH NOSTRIL DAILY FOR 3 WEEKS ITRACONAZOLE 100 MG No Longer Active Rosalinda Estella Watts LACTINEX CHEW 2 chews PO TID LACTOBACILLUS 17296852047 No Longer Active Rosalinda Estella Watts SPORANOX SOLN Irrigate 20ml each nostril daily for 3 weeks 01/24 ITRACONAZOLE SOLN 41181672125 No Longer Active Rosalinda Estella Watts ROBITUSSIN A-C 10-100 MG/5ML SYRUP 1 teaspoon PO Q 4-6 hr prn ROBITUSSIN A-C 10-100 MG/5ML SYRUP No Longer Active Rosalinda Estella Watts FLETCHER 180 MG TABS 1 PO BID FEXOFENADINE HCL No Longer Active Florina Zambrano MUCINEX 600 MG TB12 1 PO BID for 5 days GUAIFENESIN 05544022406 No Longer Active Florina Zambrano TESSALON 200 MG CAPS 1 PO TID prn cough BENZONATATE 50201123699 No Longer Active Rosalinda Estella Watts ROBITUSSIN A-C 10-100 MG/5ML SYRUP 1 teaspoon PO Q 4-6 hr prn ROBITUSSIN A-C 10-100 MG/5ML SYRUP No Longer Active Rosalindacayden WANG'S NASAL SPRAY (DEXAMETHASONE, GENTAMICIN, SALINE) 2 puffs each nostril TID for [address] WANG'S NASAL SPRAY ( DEXAMETHASONE, GENTAMICIN, SALINE) No Longer Active Rosalinda Watts CEFTIN 500 MG TABS 1 PO BID CEFUROXIME AXETIL 18106889605 No Longer Active Rosalinda Estella Watts ATROVENT 0.06 % SOLN 2 puffs each nostril TID prn runny nose 2011 IPRATROPIUM BROMIDE 83250422833 No Longer Active Loan Fantasma ATROVENT 0.06 % SOLN 2 puffs each nostril TID prn runny nose 2010 IPRATROPIUM BROMIDE 88466652047 No Longer Active Rosalindacayden Watts CICLOPIROX 0.77 % GEL apply to affected areas BID CICLOPIROX 53908154042 No Longer Active Rosalinda Estella Watts GENTAK 0.3 % OINT Apply BID x 10 days GENTAMICIN SULFATE 77481044164 No Longer Active Rosalinda Estella Watts BACTROBAN 2 % OINT apply to affected areas BID MUPIROCIN 46778182316 No Longer Active Rosalindacayden Watts DIFFERIN 0.3 % GEL apply to affected areas BID ADAPALENE 97821638733 No Longer Active Rosalindacayden Watts DOXYCYCLINE HYCLATE 100 MG CAP 1 po BID DOXYCYCLINE HYCLATE 91188870077 No Longer Active Rosalinda Estella Watts TESSALON 200 MG CAPS 1 PO TID prn cough BENZONATATE 69965577615 No Longer Active Rosalindacayden Watts ROBITUSSIN A-C 10-100 MG/5ML SYRUP 1 teaspoon PO Q 4-6 hr prn ROBITUSSIN A-C 10-100 MG/5ML SYRUP No Longer Active Rosalindacayden Watts CEFTIN 500 MG TABS 1 PO BID for 10 days CEFUROXIME AXETIL 75296609137 No Longer Active Rosalindacayden WANG'S NASAL SPRAY (DEXAMETHASONE, GENTAMICIN, SALINE) 2 puffs each nostril TID for [address] WANG'S NASAL SPRAY ( DEXAMETHASONE, GENTAMICIN, SALINE) No Longer Active Rosalinda Estella Watts TESSALON 200 MG CAPS 1 PO TID prn cough BENZONATATE 03290652540 No Longer Active Rosalindacayden Watts ROBITUSSIN A-C 10-100 MG/5ML SYRUP 1 teaspoon PO Q 4-6 hr prn ROBITUSSIN A-C 10-100 MG/5ML SYRUP No Longer Active Rosalinda Estella Watts FLETCHER 180 MG TABS 1 PO BID FEXOFENADINE HCL 86972835979 No Longer Active Rosalinda Estella Watts FLETCHER 180 MG TABS 1 PO BID for 2 weeks FEXOFENADINE HCL 48847229561 No Longer Active Rosalinda Estella Watts ROBITUSSIN A-C 10-100 MG/5ML SYRUP 1 teaspoon PO Q 4-6 hr prn ROBITUSSIN A-C 10-100 MG/5ML SYRUP No Longer Active Rosalinda Estella Watts ATROVENT 0.06 % SOLN 2 puffs each nostril TID runny nose IPRATROPIUM BROMIDE 86886206070 No Longer Active Rosalinda Estella Watts HUMALOG 100 UNIT/ML SOLN 5 units before lunch and dinner INSULIN LISPRO (HUMAN) 56879590802 No Longer Active Rosalinda Estella Watts CIPRO 250 MG TABS 1 PO BID CIPROFLOXACIN HCL 51996111073 No Longer Active Rosalinda Estella Watts KENALOG 0.1 % CREA apply to affected areas BID prn rash TRIAMCINOLONE ACETONIDE No Longer Active Rosalinda Estella Watts BACTROBAN 2 % CREA as directed MUPIROCIN CALCIUM 46427075632 No Longer Active Rosalinda Estella Watts ERTACZO 2 % CREA as directed SERTACONAZOLE NITRATE 46591592651 No Longer Active Rosalinda Estella Watts ALUMINUM ACETATE SOLN apply wet dressings to affected areas TID ALUMINUM ACETATE 46412544021 No Longer Active Rosalinda Estella Watts NITROSTAT 0.4 MG SL TAB 1 pill under tongue prn chest pain 03/07 NITROGLYCERIN 32191433337 No Longer Active Rosalindacayden Watts FERROUS GLUCONATE IRON 246 (28 FE) MG TABS 1 PO Daily FERROUS GLUCONATE 58002007682 No Longer Active Rosalinda Estella Watts ROBITUSSIN A-C 10-100 MG/5ML SYRUP 1 teaspoon PO Q 4-6 hr prn ROBITUSSIN A-C 10-100 MG/5ML SYRUP No Longer Active Rosalinda Estella Watts TESSALON 200 MG CAPS 1 PO TID prn cough BENZONATATE 53062133711 No Longer Active Rosalinda Estella Watts AUGMENTIN 500-125 MG TAB 1 PO BID AMOXICILLIN-POT CLAVULANATE 04154861053 No Longer Active Rosalinda WANG'S NASAL SPRAY (DEXAMETHASONE, GENTAMICIN, SALINE) 2 puffs each nostril TID for [address] WANG'S NASAL SPRAY ( DEXAMETHASONE, GENTAMICIN, SALINE) No Longer Active Rosalinda Watts ZITHROMAX 250 MG TAB 2 PO once then 1 PO daily AZITHROMYCIN 44582837218 No Longer Active Rosalindacayden Watts ROBITUSSIN A-C 10-100 MG/5ML SYRUP 1 teaspoon PO Q 4-6 hr prn ROBITUSSIN A-C 10-100 MG/5ML SYRUP No Longer Active Florina Zambrano TESSALON 200 MG CAPS 1 PO TID prn cough BENZONATATE 66341951003 No Longer Active Florina Zambrano DOXYCYCLINE HYCLATE 100 MG CAP 1 po BID x 2 weeks DOXYCYCLINE HYCLATE 94725961230 No Longer Active Rosalinda Estella Watts LAMISIL 250 MG TAB 1 PO daily TERBINAFINE HCL 51268322121 No Longer Active Rosalinda Estella Watts DIFFERIN 0.3 % GEL apply to affected area daily ADAPALENE 23356910000 No Longer Active Rosalinda Estella Watts VIAGRA 50 MG TABS DIRECTED SILDENAFIL CITRATE 78621575099 No Longer Active Rosalinda Estella Watts ZOCOR 20 MG TABS 1 PO daily SIMVASTATIN 40655581121 No Longer Active Florina Vinton VYTORIN 10-20 MG TABS 1 po daily EZETIMIBE-SIMVASTATIN 27335874319 No Longer Active Florina Vinton ZOCOR 20 MG TAB 1 PO daily SIMVASTATIN 44284462312 No Longer Active Rosalinda Estella Watts KEFLEX 500 MG CAP 1 PO TID for 7 days for nose CEPHALEXIN 71994114356 No Longer Active Rosalinda Estella Watts TESSALON 200 MG CAPS 1 PO TID prn BENZONATATE 18580674394 No Longer Active Rosalinda Estella Watts ROBITUSSIN A-C 10-100 MG/5ML SYRUP 1 teaspoon PO Q 4-6 hr prn ROBITUSSIN A-C 10-100 MG/5ML SYRUP 30760558054 No Longer Active Rosalinda Estella Watts BIAXIN XL PAC 500 MG TB24 2 pills at same time daily for 7 days CLARITHROMYCIN 94689072263 No Longer Active Rosalinda Estella Watts PROMETHEGAN 12.5 MG SUPP 1 MA Q6hrs prn PROMETHAZINE HCL 24470849150 No Longer Active Rosalinda Estella Watts FLETCHER 180 MG TABS 1 PO QD FEXOFENADINE HCL 07244442155 No Longer Active Rosalinda Estella Watts ROBITUSSIN A-C 10-100 MG/5ML SYRUP 5cc PO Q 4-6 hr prn ROBITUSSIN A-C 10-100 MG/5ML SYRUP 80429145953 No Longer Active Rosalindacayden Watts ATROVENT 0.06 % SOLN 2 puffs each nostril TID prn runny nose 2006 IPRATROPIUM BROMIDE 50647353641 No Longer Active Rosalinda Estella Watts LORTAB 5 5-500 MG TABS 1 to 2 PO Q6hrs prn ACETAMINOPHEN-HYDROCODONE 83495137802 No Longer Active Rosalinda Estella Watts TRIAMCINOLONE ACETONIDE 0.5 % OINT Apply to affected areas BID for 7 days TRIAMCINOLONE ACETONIDE 03159642501 No Longer Active Rosalindacayden Watts DOXY-CAPS 100 MG CAPS 1 PO BID for 3 weeks DOXYCYCLINE HYCLATE 61402241406 No Longer Active Rosalindacayden Watts FLETCHER-D TB12 1 PO BID prn FEXOFENADINE- PSEUDOEPHEDRINE TB12 38685886932 No Longer Active Rosalindacayden Watts AUGMENTIN 500-125 MG TABS 1 po BID x 7 days AMOXICILLIN-POT CLAVULANATE 44771203067 No Longer Active Rosalinda WANG'Juliette NASAL SPRAY 2 puffs each nostril TID x [address] WANG'S NASAL SPRAY No Longer Active Rosalinda Watts FERROUS GLUCONATE 27 MG. 1 po BID FERROUS GLUCONATE 27 MG. No Longer Active Rosalinda Watts NEXIUM 40 MG CPDR 1 po daily ESOMEPRAZOLE MAGNESIUM 31766903058 No Longer Active Rosalindacayden Watts AMOXICILLIN 500 MG CAPS 1 po BID x 7 days AMOXICILLIN 40798322131 No Longer Active Rosalindacayden Watts PREDNISONE 20 MG TAB 3 PO daily for 1 day then 2 PO daily for 2 days, 12/13 PREDNISONE 66951848325 No Longer Active Rosalindacayden Watts ALBUTEROL SULFATE 0.083 % NEBU SOLN 1 treatment 4 times daily ALBUTEROL SULFATE 17283650687 No Longer Active Rosalinda Estella Watts AFRIN NASAL SPRAY 0.05 % SOLN 2 puffs each nostril TID for 2 days only 12/06 OXYMETAZOLINE HCL 90748363571 No Longer Active Rosalinda Estella Watts BIAXIN 500 MG TABS 1 PO BID for 7 days. Do not take Vytorin while on this medication. CLARITHROMYCIN 27737792094 No Longer Active Rosalinda Estella Watts MUCINEX 600 MG TB12 1 po BID GUAIFENESIN 72353842212 No Longer Active Rosalinda Estella Watts TESSALON 200 MG CAPS 1 PO TID prn cough BENZONATATE 40652449019 No Longer Active Rosalinda Estella Watts NOVOLOG FLEXPEN 100 UNIT/ML SOLN Take 3 units before lunch 10/04 INSULIN ASPART 74849033544 No Longer Active Rosalinda Estella Watts CHLORPHENIRAMINE MALEATE 4 MG TABS 1 PO Q6hrs prn for cold 09/21 CHLORPHENIRAMINE MALEATE 30585763220 No Longer Active Rosalinda Estella Watts ATROVENT 0.06 % SOLN 2 puffs each nostril BID for 7 days IPRATROPIUM BROMIDE 27022573244 No Longer Active Rosalinda Estella Watts ROBITUSSIN A-C 10-100 MG/5ML SYRUP 5cc PO Q 4-6 hr prn ROBITUSSIN A-C 10-100 MG/5ML SYRUP 81843027244 No Longer Active Rosalinda Estella Watts CHLORPHENIRAMINE MALEATE 4 MG TABS 1 PO Q6hrs prn for cold 08/27 CHLORPHENIRAMINE MALEATE 47520771429 No Longer Active Rosalinda Estella Watts AUGMENTIN 500-125 MG TAB 1 PO BID for 7 days AMOXICILLIN-POT CLAVULANATE 12654412804 No Longer Active Rosalinda Estella Watts HUMALOG PEN 100 UNIT/ML SOLN 3 units SQ before lunch INSULIN LISPRO ( HUMAN) 06248790392 No Longer Active Rosalinda Estella Watts CENTRUM SILVER TABS 1 PO daily MULTIPLE VITAMINS- MINERALS 74119708825 No Longer Active Rosalinda Estella Watts LANTUS 100 U/ML SOLN 21 units SQ QHS INSULIN GLARGINE 28624645967 No Longer Active Rosalinda Estella Watts AVANDAMET 4-1000 MG TABS 1 po BID ROSIGLITAZONE-METFORMIN 67941861643 No Longer Active Rosalinda Estella Watts METFORMIN HCL 1000 MG TABS 1 po BID METFORMIN HCL 97854292029 No Longer Active Florina Zambrano AVANDIA 4 MG TABS 1 po BID ROSIGLITAZONE MALEATE 73080178981 No Longer Active Florina Zambrano LANTUS PEN 21 units QHS LANTUS PEN No Longer Active Rosalinda Estella Watts LORTAB 5 5-500 MG TABS 1 to 2 PO Q6hrs prn ACETAMINOPHEN-HYDROCODONE 10992659266 No Longer Active Rosalinda Estella Watts CIPRO 500 MG TAB 1 PO BID CIPROFLOXACIN HCL 77335242412 No Longer Active Rosalinda Estella Watts LEVSIN 0.125 MG TAB 1 PO Q6hrs prn cramping HYOSCYAMINE SULFATE 84047787802 No Longer Active Rosalinda Estella Watts OMEGA-3 1000 MG CAPS 1 PO QD OMEGA-3 FATTY ACIDS 19168864540 No Longer Active Rosalinda Estella Watts QUESTRAN LIGHT 4 GM PACK 1 packet in water TID CHOLESTYRAMINE LIGHT 16767239051 No Longer Active Rosalinda Estella Watts PRILOSEC OTC 20 MG TBEC 1 PO daily OMEPRAZOLE MAGNESIUM 78988868751 No Longer Active Rosalinda Estella Watts DOCUSATE SODIUM 50 MG/15ML SYRP 3 drops left ear. Let stand for 15 min. then rinse out with ball suction. Repeat daily. DOCUSATE SODIUM 08134569571 No Longer Active Rosalinda Estella Watts BENICAR 20 MG TABS [address] of Altace while cough is assessed 2005 OLMESARTAN MEDOXOMIL 01405178784 No Longer Active Rosalinda Estella Watts VYTORIN 10-20 MG TABS 1 PO daily EZETIMIBE-SIMVASTATIN 90950722514 No Longer Active Rosalinda Estella Watts PROTONIX 40 MG SOLR 1 po daily PANTOPRAZOLE SODIUM 06132154360 No Longer Active Rosalinda Estella Watts AVANDAMET 4-1000 MG TABS 1 po BID ROSIGLITAZONE-METFORMIN 68379465546 No Longer Active Warner Moreno FERROUS GLUCONATE 325 MG TABS 1 PO daily FERROUS GLUCONATE 15886565975 No Longer Active Rosalinda Estella Watts PROTONIX 20 MG TBEC 1 po daily PANTOPRAZOLE SODIUM 15252312119 No Longer Active Rosalinda Estella Watts CARDIZEM CD 180 MG CP24 1 daily DILTIAZEM HCL COATED BEADS 81636193327 No Longer Active Rosalinda Estella Watts PREVACID SOLUTAB 30 MG TBDP 1 PO QD LANSOPRAZOLE 26887728290 No Longer Active Rosalinda Estella Watts DIGOXIN 0.25 MG TABS 1 po daily DIGOXIN 42138439626 No Longer Active Rosalinda Estella Watts COREG 3.125 MG TABS 2 PO BID CARVEDILOL 07839050954 No Longer Active Rosalinda Estella Watts NOVOLOG FLEXPEN 100 U/ML SOLN INSULIN ASPART 33674955981 No Longer Active Rosalinda Estella Watts COUMADIN 3 MG TABS 1 PO odd days and 2 PO even days at 6pm 07/01 WARFARIN SODIUM 63557746824 No Longer Active Rosalinda Estella Wtats CODICLEAR DH 5-100 MG/5ML SYRP 5 cc Po Q4-6prn HYDROCODONE-GUAIFENESIN 06469528493 No Longer Active Rosalinda Estella Watts ATROVENT 0.06 % SOLN 2 puffs BID IPRATROPIUM BROMIDE 14290182534 No Longer Active Rosalinda Estella Watts AMOXIL 875 MG TABS 1 PO BID AMOXICILLIN 72122650005 No Longer Active Rosalinda Estella Watts LORTAB 5 5-500 MG TABS 1 PO Q4-6hrs prn ACETAMINOPHEN -HYDROCODONE 49570045773 No Longer Active Rosalinda Estella Watts ACETAMINOPHEN 650 MG SUPP 1 MA Q6hrs prn ACETAMINOPHEN 28735643008 No Longer Active Rosalinda Estella Watts TYLENOL 325 MG TABS 2 PO Q6hrs prn ACETAMINOPHEN 53950874767 No Longer Active Rosalinda Estella Watts PHENERGAN 12.5 MG SUPP 1 MA Q6hrs prn PROMETHAZINE HCL 49501813008 No Longer Active Rosalinda Estella Watts AMIODARONE HCL 200 MG TABS 1 tab po TID x one week, then 1 tab po daily 04/17 AMIODARONE HCL 23298447357 No Longer Active Rosalinda Estella Watts CIPRO XR 500 MG TB24 2 PO QD CIPROFLOX HCL-CIPRO BETAINE 28228235219 No Longer Active Rosalinda Estella Watts NIFEREX-150 FORTE CAPS 1 daily (Dr Avalos) FE BISGLY- FE [id number] 86251011464 No Longer Active Rosalinda Estella Watts NEXIUM 40 MG CPDR 1 PO QD ESOMEPRAZOLE MAGNESIUM 45547840465 No Longer Active Rosalinda Estella Watts AVANDIA 4 MG TABS 1 daily ROSIGLITAZONE MALEATE 24204325530 No Longer Active Rosalinda Estella Watts DARVOCET-N 100 650-100 MG TABS 1 Q3-4 hrs prn (Dr Avalos) PROPOXYPHENE N-APAP 77640625675 No Longer Active Rosalinda Estella Watts PLAVIX 75 MG TABS 1 daily (Dr Avalos) CLOPIDOGREL BISULFATE 55801774980 No Longer Active Rosalinda Estella Watts ASPIRIN 325 MG TAB 1 PO QAM ASPIRIN 43263413943 No Longer Active Rosalinda Estella Watts PROTONIX 40 MG TBEC 1 PO BID PANTOPRAZOLE SODIUM 78565915069 No Longer Active Rosalinda Estella Watts ALCORTIN 1-2-1 % GEL apply 3-4 times a day to affected areas 2004 [id number] POLYSACCH 40101797938 No Longer Active Rosalinda Estella Watts LIPITOR 20 MG TAB 1 PO QD ATORVASTATIN CALCIUM 46010106618 No Longer Active Rosalinda Estella Watts MULTIVITAMINS TABS 1 daily (Dr Avalos) MULTIPLE VITAMIN 31715252206 No Longer Active Rosalinda Estella Watts LOTREL 5-20 MG CAPS 1 daily AMLODIPINE BESY- BENAZEPRIL HCL 25475887067 No Longer Active Rosalinda Estella Watts HYCODAN 1.5-5 MG TABS 1 every 6hrs as needed HYDROCODONE-HOMATROPINE 91689038018 No Longer Active Rosalinda Estella Watts ZITHROMAX 500 MG TABS 1 daily for 6 days AZITHROMYCIN 22212722078 No Longer Active Rosalinda Estella Watts FLETCHER 180 MG TABS 1 daily FEXOFENADINE HCL 71053706720 No Longer Active Rosalinda Estella Watts ASTELIN 137 MCG/SPRAY SOLN 1 puff each nostril twice daily 09/19 AZELASTINE HCL 49610163125 No Longer Active Rosalinda Estella Watts PROTONIX 40 MG TBEC 1 po qd PANTOPRAZOLE SODIUM 29623027953 No Longer Active Rosalinda Estella Watts ATROVENT 0.06 % SOLN 2 puffs q nostril TID IPRATROPIUM BROMIDE 54629703284 No Longer Active Rosalinda Estella Watts FLONASE 50 MCG/DOSE INHALANT 1 puff each nostril BID FLONASE 50 MCG/DOSE INHALANT 56662252981 No Longer Active Rosalinda Estella Watts ZYRTEC 10 MG TAB 1 PO QD CETIRIZINE HCL 47803118361 No Longer Active Rosalinda Estella Watts OXISTAT 1 % CREA Apply BID x 7 days OXICONAZOLE NITRATE [id number] No Longer Active Rosalinda Estella Watts TESSALON 200 MG CAPS 1 PO TID prn BENZONATATE [id number] No Longer Active Rosalinda Estella Watts PNEUMOVAX 23 25 MCG/0.5ML INJ Received from [facility] [id number] PNEUMOCOCCAL VAC POLYVALENT [id number] No Longer Active Rosalinda Estella Watts AVANDAMET 4-1000 MG TABS 1 PO BID ROSIGLITAZONE-METFORMIN [id number] No Longer Active Rosalinda Estella Watts LIPITOR 20 MG TAB 1 PO QD ATORVASTATIN CALCIUM [id number] No Longer Active Rosalinda Estella Watts LIPITOR 20 MG TAB 1 PO QD ATORVASTATIN CALCIUM [id number] No Longer Active Rosalinda Estella Watts AVANDIA 4 MG TABS 1 tab po BID ROSIGLITAZONE MALEATE [id number] No Longer Active Rosalinda Estella Watts AVANDAMET 4-1000 MG TABS 1 PO BID ROSIGLITAZONE- METFORMIN [id number] No Longer Active Rosalinda Estella Watts ATROVENT 0.06 % SOLUTION 2 puffs q nostril Q6hrs prn IPRATROPIUM BROMIDE [id number] No Longer Active Rosalinda Estella Watts CLARINEX 5 MG TABS 1 PO QD DESLORATADINE [id number] No Longer Active Rosalinda Estella Watts ROBITUSSIN A-C 10-100 MG/5ML SYRUP 5cc. q 4-6 hrs. prn ROBITUSSIN A-C 10-100 MG/5ML SYRUP [id number] No Longer Active Rosalinda Estella Watts COZAAR 25 MG TAB 1 tab qd LOSARTAN POTASSIUM [id number] No Longer Active Rosalinda Estella Watts LANTUS 100 U/ML SOLN 20 units QHS INSULIN GLARGINE [id number] No Longer Active Rosalinda Estella Watts METFORMIN HCL 1000 MG TABS 1 tab po BID METFORMIN HCL [id number] No Longer Active Rosalinda Watts Immunizations Vaccine [...] % Clinical Lists Update: CBC,CMP - Chemistry urea nitrogen, blood 11 mg/dL protein, total, serum 6.1 g/dL aspartate aminotransferase (SGOT), serum 27 U/L alanine aminotransferase (SGPT), serum 46 U/L bilirubin, serum, total 0.9 mg/dL sodium, serum 135 mmol/L glucose, plasma fasting 251 mg/dL creatinine, serum 0.75 mg/dL carbon dioxide, venous blood 26 mmol/L chloride, serum 101 mmol/L calcium, serum 8.4 mg/dL potassium, serum 3.9 mmol/L alkaline phosphatase, serum 107 U/L albumin, serum 3.2 g/dL Estimated Glomerular Filtration Rate (calc) >60 mL/min/1.73m2 Clinical Lists Update: CBC,[facility] - Hematology red blood cell distribution width 14.0 % hematocrit, blood 26 % hemoglobin, blood 8.8 g/dL platelet count 174 10*3/mm3 erythrocyte (RBC) count 2.92 10*6/mm3 leukocyte count, blood 1.0 10*3/mm3 mean corpuscular volume, RBC 88 fL Clinical Lists Update: CBC,CMP,CHOL,TRIG,FERRITIN,HGA1C - Chemistry alkaline phosphatase, serum 59 U/L hemoglobin A1C, blood, as % of total hemoglobin 8.5 % glucose, plasma fasting 153 mg/dL anion gap, serum 10 sodium, serum 138 mmol/L urea nitrogen, blood 13 mg/dL triglyceride, serum, fasting 94 mg/dL bilirubin, serum, total 0.9 mg/dL calcium, serum 9.0 mg/dL alanine aminotransferase (SGPT), serum 27 U/L chloride, serum 102 mmol/L aspartate aminotransferase (SGOT), serum 19 U/L cholesterol, serum 136 mg/dL protein, total, serum 6.6 g/dL carbon dioxide, venous blood 26 mmol/L potassium, serum 3.7 mmol/L creatinine, serum 0.70 mg/dL ferritin, serum 178 ng/mL albumin, serum 4.2 g/dL Estimated Glomerular Filtration Rate (calc) >60 mL/min/1.73m2 Clinical Lists Update: CBC,CMP,CHOL,TRIG,FERRITIN,HGA1C - Hematology platelet count 148 10*3/mm3 erythrocyte (RBC) count 4.06 10*6/mm3 leukocyte count, blood 4.0 10*3/mm3 hemoglobin, blood 13.2 g/dL mean corpuscular volume, RBC 89.4 fL red blood cell distribution width 14.8 % hematocrit, blood 36.3 % Clinical Lists Update: CBC,CMP,ESR - Chemistry protein, total, serum 6.1 g/dL urea nitrogen, blood 10 mg/dL potassium, serum 4.1 mmol/L albumin, serum 3.5 g/dL Estimated Glomerular Filtration Rate (calc) >60 mL/min/1.73m2 alkaline phosphatase, serum 81 U/L glucose, plasma fasting 289 mg/dL carbon dioxide, venous blood 25 mmol/L aspartate aminotransferase (SGOT), serum 17 U/L alanine aminotransferase (SGPT), serum 27 U/L chloride, serum 100 mmol/L bilirubin, serum, total 1.2 mg/dL calcium, serum 8.9 mg/dL sodium, serum 132 mmol/L creatinine, serum 0.82 mg/dL Clinical Lists Update: CBC,CMP,ESR - Hematology erythrocyte (RBC) count 3.22 10*6/mm3 hemoglobin, blood 10.4 g/dL red blood cell distribution width 15.2 % mean corpuscular volume, RBC 93 fL leukocyte count, blood 3.4 10*3/mm3 platelet count 190 10*3/mm3 hematocrit, blood 30 % erythrocyte sedimentation rate 33 mm/h Clinical Lists Update: CBC,CMP,ESR,UA - Chemistry Estimated Glomerular Filtration Rate (calc) [...] 6.6 g/dL protein, total, serum 5.2 g/dL potassium, serum 4.5 mmol/L potassium, serum 3.8 mmol/L creatinine, serum 1.13 mg/dL creatinine, serum 0.71 mg/dL carbon dioxide, venous blood 23 mmol/L carbon dioxide, venous blood 25 mmol/L chloride, serum 96 mmol/L chloride, serum 104 mmol/L calcium, serum 8.5 mg/dL calcium, serum 7.9 mg/dL urea nitrogen, blood 24 mg/dL urea nitrogen, blood 8 mg/dL alkaline phosphatase, serum 76 U/L alkaline phosphatase, serum 61 U/L albumin, serum 3.9 g/dL albumin, serum 3.0 g/dL Estimated Glomerular Filtration Rate (calc) >60 mL/min/1.73m2 Clinical Lists Update: CBC,CMP,ESR,UA - Hematology mean corpuscular volume, RBC 91 fL red blood cell distribution width 15.1 % leukocyte count, blood 5.6 10*3/mm3 leukocyte count, blood 2.3 10*3/mm3 erythrocyte (RBC) count 3.71 10*6/mm3 erythrocyte (RBC) count 2.18 10*6/mm3 platelet count 119 10*3/mm3 platelet count 278 10*3/mm3 hemoglobin, blood 12.5 g/dL hemoglobin, blood 7.1 g/dL hematocrit, blood 34 % hematocrit, blood 21 % erythrocyte sedimentation rate 35 mm/h erythrocyte sedimentation rate 45 mm/h red blood cell distribution width 16.9 % mean corpuscular volume, RBC 94 fL Clinical Lists Update: CBC,CMP,ESR,UA - Urinalysis glucose, urine, semiquantitative 4+ glucose, urine, semiquantitative 3+ protein, urine, semiquantitative (dipstick) 1+ protein, urine, semiquantitative (dipstick) 1+ blood in urine (hemoglobin) by dipstick 2+ blood in urine (hemoglobin) by dipstick neg mucus on urinalysis neg mucus on urinalysis neg epithelial cells, urine [...] 1+ bilirubin, urine neg bilirubin, urine neg Clinical Lists Update: CBC,CMP,FERRITIN [facility] - Chemistry albumin, serum 4.0 g/dL aspartate aminotransferase (SGOT), serum 22 U/L carbon dioxide, venous blood 24 mmol/L bilirubin, serum, total 0.7 mg/dL alkaline phosphatase, serum 73 U/L potassium, serum 3.9 mmol/L sodium, serum 140 mmol/L urea nitrogen, blood 11 mg/dL creatinine, serum 0.75 mg/dL calcium, serum 9.5 mg/dL glucose, plasma fasting 79 mg/dL protein, total, serum 7.0 g/dL Estimated Glomerular Filtration Rate (calc) >60 mL/min/1.73m2 chloride, serum 107 mmol/L ferritin, serum 72 ng/mL alanine aminotransferase (SGPT), serum 20 U/L Clinical Lists Update: CBC,CMP,FLP,FERRITIN,HGA1C,TSH - Chemistry cholesterol/HDL ratio, serum, percent 2.65 anion gap, serum 6 sodium, serum 137 mmol/L triglyceride, serum, fasting 98 mg/dL bilirubin, serum, total 1.0 mg/dL alanine aminotransferase (SGPT), serum 18 U/L aspartate aminotransferase (SGOT), serum 17 U/L glucose, plasma fasting 122 mg/dL Estimated Glomerular Filtration Rate (calc) >60 mL/min/1.73m2 HDL cholesterol, serum 44 mg/dL hemoglobin A1C, blood, as % of total hemoglobin 7.7 % albumin, serum 4.3 g/dL alkaline phosphatase, serum 54 U/L urea nitrogen, blood 7 mg/dL calcium, serum 9.3 mg/dL chloride, serum 103 mmol/L cholesterol, serum 116 mg/dL carbon dioxide, venous blood 28 mmol/L creatinine, serum 0.80 mg/dL ferritin, serum 255 ng/mL protein, total, serum 7.1 g/dL potassium, serum 3.4 mmol/L thyroid stimulating hormone, serum 1.513 u[iU]/mL LDL cholesterol, serum 52 mg/dL Clinical Lists Update: CBC,CMP,FLP,FERRITIN,HGA1C,TSH - Hematology mean corpuscular volume, RBC 90.6 fL red blood cell distribution width 13.7 % hematocrit, blood 34.6 % hemoglobin, blood 12.2 g/dL platelet count 196 10*3/mm3 leukocyte count, blood 5.5 10*3/mm3 erythrocyte (RBC) count 3.82 10*6/mm3 Clinical Lists Update: CBC,CMP,FLP,HgA1c,ESR - Chemistry Estimated Glomerular Filtration Rate (calc) >60 mL/min/1.73m2 glucose, plasma fasting 166 mg/dL sodium, serum 140 mmol/L bilirubin, serum, total 1.0 mg/dL alanine aminotransferase (SGPT), serum 31 U/L aspartate aminotransferase (SGOT), serum 27 U/L protein, total, serum 6.8 g/dL potassium, serum 4.1 mmol/L hemoglobin A1C, blood, as % of total hemoglobin 7.6 % creatinine, serum 0.82 mg/dL carbon dioxide, venous blood 24 mmol/L chloride, serum 106 mmol/L calcium, serum 9.2 mg/dL urea nitrogen, blood 9 mg/dL alkaline phosphatase, serum 73 U/L albumin, serum 4.1 g/dL Clinical Lists Update: CBC,CMP,FLP,HgA1c,ESR - Hematology red blood cell distribution width 13.0 % mean corpuscular volume, RBC 89 fL leukocyte count, blood 5.5 10*3/mm3 erythrocyte sedimentation rate 7 mm/h platelet count 173 10*3/mm3 hemoglobin, blood 14.3 g/dL hematocrit, blood 40 % erythrocyte (RBC) count 4.44 10*6/mm3 Clinical Lists Update: CBC,CMP,UA - Chemistry bilirubin, serum, total 1.0 mg/dL alanine aminotransferase [...] serum 3.8 g/dL albumin, serum 3.4 g/dL Estimated Glomerular Filtration Rate (calc) >60 mL/min/1.73m2 Estimated Glomerular Filtration Rate (calc) >60 mL/min/1.73m2 glucose, plasma fasting 239 mg/dL glucose, plasma fasting 431 mg/dL sodium, serum 132 mmol/L sodium, serum 130 mmol/L bilirubin, serum, total 1.2 mg/dL Clinical Lists Update: CBC,CMP,UA - Hematology hemoglobin, blood 10.8 g/dL hemoglobin, blood 8.8 g/dL platelet count 230 10*3/mm3 erythrocyte (RBC) count 2.74 10*6/mm3 erythrocyte (RBC) count 3.31 10*6/mm3 leukocyte count, blood 1.9 10*3/mm3 leukocyte count, blood 2.3 10*3/mm3 mean corpuscular volume, RBC 92 fL mean corpuscular volume, RBC 86 fL red blood cell distribution width 14.0 % red blood cell distribution width 15.4 % erythrocyte sedimentation rate 36 mm/h hematocrit, blood 25 % hematocrit, blood 29 % platelet count 129 10*3/mm3 Clinical Lists Update: CBC,CMP,UA - Urinalysis bilirubin, urine neg glucose, urine, semiquantitative 4+ glucose, urine, semiquantitative 4+ protein, urine, semiquantitative (dipstick) 1+ protein, urine, semiquantitative (dipstick) neg blood in urine (hemoglobin) by dipstick 1+ blood in urine (hemoglobin) by dipstick neg mucus on urinalysis small mucus on urinalysis neg epithelial cells, urine rare /[LPF] epithelial cells, urine rare /[LPF] hyaline casts, urine none /[LPF] hyaline casts, urine none /[LPF] bacteria, urine microscopy neg bacteria, urine microscopy neg RBC urine by microscopy rare bilirubin, urine 1+ ketones, urine, by test strip neg ketones, urine, by test strip 2+ nitrite, urine, semiquantitative neg nitrite, urine, semiquantitative neg pH, urine, semiquantitative 5 pH, urine, semiquantitative 5 specific gravity, urine 1.010 specific gravity, urine 1.020 urobilinogen, urine, semiquantitative (dipstick) normal urobilinogen, urine, semiquantitative (dipstick) 4 appearance, urine Clear Yellow appearance, urine Clear Yellow RBC urine by microscopy rare WBC urine on microscopy none {Cells}/[HPF] WBC urine on microscopy rare {Cells}/[HPF] Clinical Lists Update: Ferritin, Microalbumin - Chemistry ferritin, serum 118 ng/mL Clinical Lists Update: Ferritin, Microalbumin - Urinalysis microalbumin, urine, semiquantitative 9.1 mg/dL Clinical Lists Update: [facility] - Chemistry albumin, serum 3.5 g/dL albumin, serum 2.1 g/dL Estimated Glomerular Filtration Rate (calc) >60 mL/min/1.73m2 Estimated Glomerular Filtration Rate (calc) 38 mL/min/1.73m2 glucose, plasma fasting 264 mg/dL glucose, plasma fasting 213 mg/dL very low density lipoproteins 27 mg/dL anion gap, serum 8 sodium, serum 130 mmol/L sodium, serum 140 mmol/L triglyceride, serum, fasting 133 mg/dL bilirubin, serum, total 1.2 mg/dL bilirubin, serum, total 0.9 mg/dL alanine aminotransferase (SGPT), serum 63 U/L alanine aminotransferase (SGPT), serum 92 U/L aspartate aminotransferase (SGOT), serum 24 U/L aspartate aminotransferase (SGOT), serum 44 U/L protein, total, serum 5.9 g/dL protein, total, serum 4.3 g/dL potassium, serum 4.3 mmol/L potassium, serum 4.1 mmol/L LDL cholesterol, serum 50 mg/dL HDL cholesterol, serum 16 mg/dL bilirubin, serum, direct 0.6 mg/dL creatinine, serum 0.79 mg/dL creatinine, serum 1.77 mg/dL carbon dioxide, venous blood 22 mmol/L carbon dioxide, venous blood 29 mmol/L cholesterol, serum 89 mg/dL chloride, serum 99 mmol/L chloride, serum 103 mmol/L calcium, serum 8.5 mg/dL calcium, serum 7.8 mg/dL urea nitrogen, blood 28 mg/dL urea nitrogen, blood 44 mg/dL alkaline phosphatase, serum 56 U/L alkaline phosphatase, serum 298 U/L Clinical Lists Update: [facility] - Coagulation international normalized ratio (INR) 1.1 PTT patient 33 s prothrombin time (patient) 13.5 s Clinical Lists Update: [facility] - Hematology hematocrit, blood 25 % hematocrit, blood 30 % hemoglobin, blood 8.4 g/dL hemoglobin, blood 11.0 g/dL platelet count 161 10*3/mm3 platelet count 126 10*3/mm3 erythrocyte (RBC) count 2.97 10*6/mm3 erythrocyte (RBC) count 3.31 10*6/mm3 leukocyte count, blood 9.0 10*3/mm3 mean corpuscular volume, RBC 89 fL mean corpuscular volume, RBC 85 fL erythrocyte sedimentation rate 30 mm/h leukocyte count, blood 4.3 10*3/mm3 red blood cell distribution width 14.3 % red blood cell distribution width 15.8 % Clinical Lists Update: [facility] - Urinalysis bacteria, urine microscopy neg hyaline casts, urine none /[LPF] epithelial cells, urine 5-10 /[LPF] mucus on urinalysis moderate blood in urine (hemoglobin) by dipstick 1+ protein, urine, semiquantitative (dipstick) 1+ glucose, urine, semiquantitative 4+ bilirubin, urine neg ketones, urine, by test strip neg nitrite, urine, semiquantitative neg pH, urine, semiquantitative 5 specific gravity, urine 1.020 urobilinogen, urine, semiquantitative (dipstick) 1 RBC urine by microscopy none WBC urine on microscopy rare {Cells}/[HPF] appearance, urine Clear [place] Lab Report: A1C HPLC - Chemistry hemoglobin [...] blood 34.6 % 38.3-51.2 platelet count 177 525-151 2636/05/14 platelet count 145 316-090 2301/01/23 platelet count 196 792-148 7040/06/25 mean corpuscular hemoglobin, RBC 33.4 pg 27.6-33.8 mean corpuscular hemoglobin, RBC 32.5 pg 27.6-33.8 mean corpuscular hemoglobin, RBC 31.9 pg 27.6-33.8 basophils as percent of blood leukocytes, automated count 0.3 % basophils as percent of blood leukocytes, automated count 0.2 % mean platelet volume 9.2 fL 9.5-12.8 Lab Report: CHEM 14 - Chemistry urea nitrogen, blood 23 mg/dL 5-26 blood glucose, random 122 mg/dL 70-100 blood [...] 97 mmol/L 96-108 sodium, serum 137 mmol/L 035-506 0442/05/14 sodium, serum 138 mmol/L 829-692 4413/06/25 sodium, serum 128 mmol/L 414-420 1347/01/23 alanine aminotransferase (SGPT), serum 18 U/L 0-40 [...] mg/dL 5-26 urea nitrogen, blood 13 mg/dL 5-26 Lab Report: CHEM 14 - Lab CREATININE [...] 0.300-5.000 Encounters Code Encounter Date Provider Facility CPT-26349 Ofc Vst, Est Level II 16:41:43 PROJECT BUILDER Rosalinda Watts [facility] [place] CPT-79899 Ofc Vst, Est Level IV 12:42:00 PROJECT BUILDER Rosalinda Watts [facility] [place] CPT-05416 Ofc Vst, Est Level IV 10:07:46 PROJECT BUILDER Rosalinda Watts [facility] [place] CPT-71028 Ofc Vst, Est Level IV 19:10:41 CDT Rosalinda Watts [facility] [place] CPT-09554 Ofc Vst, Est Level III 12:37:[address] [facility] [place] CPT-14284 Ofc Vst, Est Level III 13:35:40 CDT Rosalinda Watts [facility] [place] CPT-99137 Ofc Vst, Est Level II 08:58:03 PRO[employer] [address] [facility] [place] CPT-79858 Ofc Vst, Est Level II 08:52:54 PROJECT BUILDER Rosalinda Watts [facility] [place] CPT-47089 Ofc Vst, Est Level II 14:13:36 PROJECT BUILDER Rosalinda Watts [facility] [place] CPT-53259 Ofc Vst, New Level IV 15:17:35 PROJECT BUILDER Rosalinda Watts [facility] [place] Procedures Code Procedure Name Date Entry Date Standard Description CPT-85024 Injection 10:49:38 PROJECT BUILDER CPT-66036 Injection, Pneumovax 10:49:38 PROJECT BUILDER CPT-86653 Influenza Vaccine 17:07:07 CDT CPT-G0008 Administration Influenza Vaccine 17:07:07 CDT CPT-27082 Cryopathy Skin 19:10:41 CDT CPT-17546 Ear Wax Removal 18:14:22 CDT
[2017-04-16 13:42] LABS: BAND NEUTROPHILS 0 %; BASOPHILS % (MANUAL) 0 %; EOSINOPHILS % (MANUAL) 0 %; LYMPHOCYTES % (MANUAL) 8 %; NEUTROPHILS % (MANUAL) 80 %
--- OUTSIDE RECORDS SUMMARY | 2017-04-16 13:49 | XMS REPORT | Continuity of Care Document ---
Author Author [facility] Organization [facility] Address Unknown Phone Unavailable Allergies Active Description Code Type Severity Reaction Onset Reported/Identified Relationship to Patient Clinical Status Yes No Known Drug Allergies [id number] Drug Allergy Unknown N/ A 09/19/2008 Medications Problems Date Dx Coded Attending Type Code Diagnosis Diagnosed By 09/16/1027 JORGE CARDENAS Ot C91.00 ACUTE LYMPHOBLASTIC LEUKEMIA NOT HAVING 09/16/1027 JORGE CARDENAS Ot D50.9 IRON DEFICIENCY ANEMIA, UNSPECIFIED 09/16/1027 JORGE CARDENAS Ot 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 09/16/1044 DAGOBERTO AMOR ADALBERTO Ot E11.9 TYPE 2 DIABETES MELLITUS WITHOUT COMPLIC 09/16/1044 ADALBERTO WATTS DO Ot E78.5 HYPERLIPIDEMIA, UNSPECIFIED 09/16/1044 DAGOBERTO AMOR ADALBERTO Ot R53.83 OTHER FATIGUE 11/23/2013 DEAN JEAN, AILEEN S Ot 530.11 REFLUX ESOPHAGITIS 11/23/2013 DEAN JEAN, AILEEN S Ot V12.72 PERSONAL HISTORY OF COLONIC POLYPS 11/23/2013 DEAN JEAN, AILEEN S Ot V76.51 SCREEN MAL NEOP-COLON 04/02/2014 JORGE CARDENAS Ot 280.9 IRON DEFIC ANEMIA NOS 05/04/2014 LUCY JEAN, Murphy ROOT Ot 250.00 DIAB MILLIE WO COMPL, TYPE II OR UNSPEC TY 05/04/2014 LUCY JEAN, Murphy ROOT Ot 272.4 HYPERLIPIDEMIA NEC/NOS 05/04/2014 Murphy AYALA MD Ot 275.2 DIS MAGNESIUM METABOLISM 05/04/2014 Murphy AYALA MD Ot 401.9 HYPERTENSION NOS 05/04/2014 Murphy AYALA MD Ot 410.71 AC MYOCARDIAL INFARCT,SUBENDO INFARCT,IN 05/04/2014 Murphy AYALA MD Ot 414.00 CORON ATHEROSCLER NOS TYPE VESSEL, NATIV 05/04/2014 Murphy AYALA MD Ot 491.22 OBSTRUCTIVE CHRONIC BRONCHITIS WITH ACUT 05/04/2014 Murphy AYALA MD Ot 530.81 ESOPHAGEAL REFLUX 05/04/2014 Murphy AYALA MD Ot V45.81 AORTOCORONARY BYPASS 05/04/2014 Murphy AYALA MD Ot V58.67 LONG-TERM (CURRENT) USE OF INSULIN 09/03/2014 ELLE CORMIER DO Ot 496 09/24/2014 ELLE CORMIER DO Ot 496 09/25/2014 ELLE CORMIER DO Ot 496 10/02/2014 ELLE CORMIER DO Ot 496 10/31/2014 ELLE CORMIER DO Ot 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 11/07/2014 CHRISTOPHER TANG MD Ot 250.00 DIAB MILLIE WO COMPL, TYPE II OR UNSPEC TY 11/07/2014 CHRISTOPHER TANG MD Ot 272.4 HYPERLIPIDEMIA NEC/NOS 11/07/2014 CHRISTOPHER TANG MD Ot 401.9 HYPERTENSION NOS 11/07/2014 CHRISTOPHER TANG MD Ot 411.1 INTERMED CORONARY SYND 11/07/2014 CHRISTOPHER TANG MD Ot 414.01 CORONARY ATHEROSCLEROSIS OF [place] CORON 11/07/2014 CHRISTOPHER TANG MD Ot 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 11/07/2014 CHRISTOPHER TANG MD Ot 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 11/07/2014 CHRISTOPHER TANG MD Ot V15.82 HISTORY OF TOBACCO USE 11/07/2014 CHRISTOPHER TANG MD Ot V45.81 AORTOCORONARY BYPASS 11/07/2014 CHRISTOPHER TANG MD Ot V58.69 [facility],CURRENT USE 11/26/2014 WATTS DO, ADALBERTO Ot 250.00 11/26/2014 WATTS DO, ADALBERTO Ot 272.4 11/26/2014 WATTS DO, ADALBERTO Ot 280.8 11/26/2014 WATTS DO, ADALBERTO Ot 401.1 11/26/2014 WATTS DO, ADALBERTO Ot V58.69 11/28/2014 WATTS DO, ADALBERTO Ot 250.00 11/28/2014 WATTS DO, ADALBERTO Ot 272.4 11/28/2014 WATTS DO, ADALBERTO Ot 280.8 11/28/2014 WATTS DO, ADALBERTO Ot 401.1 11/28/2014 WATTS DO, ADALBERTO Ot V58.69 12/06/2014 CLYDE JEAN, CHRISTOPHER [place] Ot 272.4 12/06/2014 CLYDE JEAN, CHRISTOPHER [place] Ot 401.9 12/06/2014 CLYDE JEAN, CHRISTOPHER [place] Ot 414.00 12/06/2014 CLYDE JEAN, CHRISTOPHER [place] Ot 786.50 12/13/2014 CLYDE JEAN, CHRISTOPHER [place] Ot 272.4 12/13/2014 CLYDE JEAN, CHRISTOPHER [place] Ot 401.9 12/13/2014 CLYDE JEAN, CHRISTOPHER [place] Ot 414.00 12/13/2014 CLYDE JEAN, CHRISTOPHER [place] Ot 786.50 01/07/2015 JORGE CARDENAS N Ot 280.9 01/07/2015 JORGE CARDENAS N Ot 280.9 01/08/2015 THERESAJORGE BERNAL N Ot 280.9 01/10/2015 Ot 272.4 01/10/2015 Ot 401.9 01/10/2015 Ot 414.00 01/10/2015 Ot 557.9 01/24/2015 WATTS DO, ADALBERTO Ot 786.2 02/13/2015 THERESAJORGE BERNAL N Ot 280.9 02/19/2015 WATTS DO, ADALBERTO Ot 786.2 03/08/2015 JORGE CARDENAS N Ot 280.9 04/05/2015 WATTS DO, ADALBERTO Ot 786.2 04/07/2015 THERESAJORGE BERNAL N Ot 280.9 IRON DEFIC ANEMIA NOS 04/09/2015 WATTS DO, ADALBERTO Ot 250.02 DIAB MILLIE WO COMPL, TYPE II OR UNSPEC TY 04/09/2015 WATTS DO, ADALBERTO Ot 272.4 HYPERLIPIDEMIA NEC/NOS 04/09/2015 WATTS DO, ADALBERTO Ot 276.51 DEHYDRATION 04/09/2015 WATTS DO, ADALBERTO Ot 280.9 IRON DEFIC ANEMIA NOS 04/09/2015 WATTS DO, ADALBERTO Ot 287.5 THROMBOCYTOPENIA NOS 04/09/2015 WATTS DO, ADALBERTO Ot 401.9 HYPERTENSION NOS 04/09/2015 WATTS DO ADALBERTO Ot 412 OLD MYOCARDIAL INFARCT 04/09/2015 DAGOBERTO DO ADALBERTO Ot 414.01 CORONARY ATHEROSCLEROSIS OF [place] CORON 04/09/2015 DAGOBERTO AMOR ADALBERTO Ot 427.31 ATRIAL FIBRILLATION 04/09/2015 DAGOBERTO AMOR ADALBERTO Ot 443.9 PERIPH VASCULAR DIS NOS 04/09/2015 DAGOBERTO AMOR ADALBERTO Ot 447.4 CELIAC ART COMPRESS SYN 04/09/2015 DAGOBERTO AMOR ADALBERTO Ot 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 04/09/2015 DAGOBERTO AMOR ADALBERTO Ot 530.81 ESOPHAGEAL REFLUX 04/09/2015 DAGOBERTO AMOR ADALBERTO Ot 553.1 UMBILICAL HERNIA 04/09/2015 DAGOBERTO AMOR ADALBERTO Ot 557.1 CHR VASC INSUFF INTEST 04/09/2015 DAGOBERTO AMOR ADALBERTO Ot 786.59 CHEST PAIN NEC 04/09/2015 DAGOBERTO AMOR ADALBERTO Ot 787.91 DIARRHEA 04/09/2015 DAGOBERTO AMOR ADALBERTO Ot 789.06 ABDOMINAL PAIN, EPIGASTRIC 04/09/2015 DAGOBERTO AMOR ADALBERTO Ot V12.61 PERSONAL HISTORY, PNEUMONIA (RECURRENT) 04/09/2015 RACHAEL WATTS DOI Ot V45.81 AORTOCORONARY BYPASS 04/11/2015 DAGOBERTO AMOR ADALBERTO Ot 250.00 04/11/2015 DAGOBERTO AMOR ADALBERTO Ot 272.4 04/11/2015 DAGOBERTO AMOR ADALBERTO Ot 298.9 04/11/2015 DAGOBERTO AMOR ADALBERTO Ot 401.9 04/11/2015 DAGOBERTO AMOR ADALBERTO Ot 414.00 04/11/2015 DAGOBERTO AMOR ADALBERTO Ot 443.9 04/11/2015 DAGOBERTO AMOR ADALBERTO Ot 536.8 04/11/2015 RACHAEL WATTS DOI Ot 789.09 04/12/2015 Ot 280.9 04/12/2015 Ot 414.00 04/12/2015 Ot V45.81 04/12/2015 Ot V58.66 04/12/2015 Ot V58.67 04/12/2015 Ot V58.69 04/12/2015 Ot 397.0 04/12/2015 Ot 401.9 04/12/2015 Ot 414.00 04/12/2015 Ot 424.0 04/12/2015 Ot 401.9 04/12/2015 Ot 414.01 04/12/2015 Ot 426.4 04/12/2015 Ot 280.9 04/12/2015 Ot 414.00 04/12/2015 Ot V45.81 04/12/2015 Ot V58.67 04/12/2015 Ot V58.69 04/12/2015 Ot 786.2 04/12/2015 Ot 473.9 04/12/2015 Ot 786.07 04/12/2015 Ot 272.4 04/12/2015 Ot 401.9 04/12/2015 Ot 414.00 04/12/2015 Ot 280.9 04/12/2015 Ot 414.00 04/12/2015 Ot V45.81 04/12/2015 Ot V58.69 04/12/2015 Ot 280.9 04/12/2015 Ot 414.00 04/12/2015 Ot V12.71 04/12/2015 Ot V45.81 04/12/2015 Ot V58.66 04/12/2015 Ot V58.67 04/12/2015 Ot V58.69 04/12/2015 Ot 250.00 04/12/2015 Ot 280.9 04/12/2015 Ot 414.00 04/12/2015 Ot V12.71 04/12/2015 Ot V45.81 04/12/2015 Ot V58.66 04/12/2015 Ot V58.67 04/12/2015 Ot V58.69 04/12/2015 KAYLEEN LUCAS 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 Ot 250.00 04/12/2015 KAYLEEN LUCAS 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 Ot 280.9 04/12/2015 KAYLEEN LUCAS 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 Ot 414.00 04/12/2015 KAYLEEN LUCAS 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 Ot V12.71 04/12/2015 KAYLEEN LUCAS 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 Ot V45.81 04/12/2015 KAYLEEN LUCAS 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 Ot V58.66 04/12/2015 KAYLEEN LUCAS 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 Ot V58.67 04/12/2015 KAYLEEN LUCAS 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 Ot V58.69 04/12/2015 JORGE CARDENAS Ot 280.9 04/12/2015 DAGOBERTO AOMR ADALBERTO Ot 496 04/12/2015 JORGE CARDENAS Ot 280.9 04/12/2015 AILEEN MORAN MD Ot V72.84 04/12/2015 DAGOBERTO DO, ADALBERTO Ot 250.00 04/12/2015 DAGOBERTO AMOR ADALBERTO Ot 285.9 04/12/2015 DAGOBERTO AMOR ADALBERTO Ot 786.05 04/12/2015 WATTS DO, ADALBERTO Ot 786.50 04/12/2015 WATTS DO, ADALBERTO Ot V58.69 04/12/2015 WATTS DO, ADALBERTO Ot V58.83 04/12/2015 ELLE CORMEIR DO Ot 786.05 04/12/2015 CASA AMOR ELLE M Ot V45.81 04/12/2015 WATTS DO, ADALBERTO Ot 250.00 04/12/2015 WATTS DO, ADALBERTO Ot 272.4 04/12/2015 WATTS DO, ADALBERTO Ot 280.8 04/12/2015 WATTS DO, ADALBERTO Ot 401.1 04/12/2015 WATTS DO, ADALBERTO Ot V58.69 04/12/2015 WATTS DO, ADALBERTO Ot 250.00 04/12/2015 WATTS DO, ADALBERTO Ot 272.4 04/12/2015 WATTS DO, ADALBERTO Ot 280.8 04/12/2015 WATTS DO, ADALBERTO Ot 401.1 04/12/2015 WATTS DO, ADALBERTO Ot 414.00 04/12/2015 ELLE CORMIER DO Ot 496 04/12/2015 ELLE CORMIER DO Ot 496 04/12/2015 CLYDE JEAN, CHRISTOPHER [place] Ot 272.4 04/12/2015 CLYDE JEAN, CHRISTOPHER [place] Ot 401.9 04/12/2015 CLYDE JEAN, CHRISTOPHER [place] Ot 414.00 04/12/2015 CLYDE JEAN, CHRISTOPHER [place] Ot 786.50 04/12/2015 Ot 272.4 04/12/2015 Ot 401.9 04/12/2015 Ot 414.00 04/12/2015 Ot 557.9 04/12/2015 WATTS DO, ADALBERTO Ot 786.2 04/12/2015 WATTS DO, ADALBERTO Ot 250.00 04/12/2015 WATTS DO, ADALBERTO Ot 272.4 04/12/2015 WATTS DO, ADALBERTO Ot 298.9 04/12/2015 WATTS DO, ADALBERTO Ot 401.9 04/12/2015 WATTS DO, ADALBERTO Ot 414.00 04/12/2015 WATTS DO, ADALBERTO Ot 443.9 04/12/2015 WATTS DO, ADALBERTO Ot 536.8 04/12/2015 WATTS DO, ADALBERTO Ot 789.09 04/12/2015 JORGE CARDENAS N Ot 280.9 04/16/2015 DAGOBERTO AMOR, ADALBERTO Ot 250.00 04/16/2015 RACHAEL WATTS DOI Ot 786.2 04/20/2015 DEAN JEAN, AILEEN [place] Ot 250.00 DIAB MILLIE WO COMPL, TYPE II OR UNSPEC TY 04/20/2015 DEAN JEAN, AILEEN [place] Ot 272.4 HYPERLIPIDEMIA NEC/NOS 04/20/2015 AILEEN MORAN MD Ot 276.51 DEHYDRATION 04/20/2015 DEAN JEAN, AILEEN [place] Ot 285.9 ANEMIA NOS 04/20/2015 DEAN JEAN, AILEEN [place] Ot 288.50 LEUKOCYTOPENIA, UNSPECIFIED 04/20/2015 AILEEN MORAN MD Ot 401.9 HYPERTENSION NOS 04/20/2015 DEAN JEAN, AILEEN [place] Ot 412 OLD MYOCARDIAL INFARCT 04/20/2015 DEAN JEAN, AILEEN [place] Ot 414.00 CORON ATHEROSCLER NOS TYPE VESSEL, NATIV 04/20/2015 AILEEN MORAN MD Ot 426.3 LEFT BB BLOCK NEC 04/20/2015 DEAN JEAN, AILEEN [place] Ot 427.31 ATRIAL FIBRILLATION 04/20/2015 DEAN JEAN, AILEEN [place] Ot 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 04/20/2015 AILEEN MORAN MD Ot 530.11 REFLUX ESOPHAGITIS 04/20/2015 AILEEN MORAN MD Ot 553.1 UMBILICAL HERNIA 04/20/2015 DEAN JEAN, AILEEN [place] Ot 716.90 ARTHROPATHY NOS-UNSPEC 04/20/2015 AILEEN MORAN MD Ot 722.6 DISC DEGENERATION NOS 04/20/2015 AILEEN MORAN MD Ot 787.91 DIARRHEA 04/20/2015 AILEEN MORAN MD Ot 790.6 ABN BLOOD CHEMISTRY NEC 04/20/2015 AILEEN MORAN MD Ot V10.83 HX-SKIN MALIGNANCY NEC 04/20/2015 AILEEN MORAN MD Ot V15.1 HX-MAJOR CARDIOVASC SURG 04/20/2015 AILEEN MORAN MD Ot V15.82 HISTORY OF TOBACCO USE 04/20/2015 AILEEN MORAN MD Ot V45.81 AORTOCORONARY BYPASS 04/20/2015 AILEEN MORAN MD Ot V45.86 BARIATRIC SURGERY STATUS 04/20/2015 AILEEN MORAN MD Ot V58.66 LONG-TERM (CURRENT) USE OF ASPIRIN 04/20/2015 AILEEN MORAN MD Ot V58.67 LONG-TERM (CURRENT) USE OF INSULIN 04/24/2015 DEAN JEAN, AILEEN [place] Ot 250.00 DIAB MILLIE WO COMPL, TYPE II OR UNSPEC TY 04/24/2015 DEAN JEAN, AILEEN [place] Ot 552.1 UMBILICAL HERNIA W OBSTR 04/30/2015 DEAN JEAN, AILEEN [place] Ot 553.1 04/30/2015 DEAN JEAN, AILEEN [place] Ot V72.84 04/30/2015 DEAN JEAN, AILEEN [place] Ot V72.84 04/30/2015 DEAN JEAN, AILEEN [place] Ot 553.1 04/30/2015 DEAN JEAN, AILEEN [place] Ot V72.84 04/30/2015 DEAN JEAN, AILEEN [place] Ot V72.84 04/30/2015 WATTS DO, ADALBERTO Ot 250.00 04/30/2015 WATTS DO, ADALBERTO Ot 272.4 04/30/2015 WATTS DO, ADALBERTO Ot 298.9 04/30/2015 WATTS DO, ADALBERTO Ot 401.9 04/30/2015 WATTS DO, ADALBERTO Ot 414.00 04/30/2015 WATTS DO, ADALBERTO Ot 443.9 04/30/2015 WATTS DO, ADALBERTO Ot 536.8 04/30/2015 WATTS DO, ADALBERTO Ot 789.09 05/03/2015 WATTS DO, ADALBERTO Ot 250.00 05/03/2015 WATTS DO, ADALBERTO Ot 272.4 05/03/2015 WATTS DO, ADALBERTO Ot 298.9 05/03/2015 WATTS DO, ADALBERTO Ot 401.9 05/03/2015 WATTS DO, ADALBERTO Ot 414.00 05/03/2015 WATTS DO, ADALBERTO Ot 443.9 05/03/2015 WATTS DO, ADALBERTO Ot 536.8 05/03/2015 WATTS DO, ADALBERTO Ot 789.09 05/06/2015 WATTS DO, ADALBERTO Ot 250.00 DIAB MILLIE WO COMPL, TYPE II OR UNSPEC TY 05/06/2015 WATTS DO, ADALBERTO Ot 272.4 HYPERLIPIDEMIA NEC/NOS 05/06/2015 WATTS DO, ADALBERTO Ot 275.2 DIS MAGNESIUM METABOLISM 05/06/2015 DAGOBERTO AMOR ADALBERTO Ot 276.1 HYPOSMOLALITY 05/06/2015 DAGOBERTO AMOR ADALBERTO Ot 284.19 OTHER PANCYTOPENIA 05/06/2015 DAGOBERTO AMOR ADALBERTO Ot 311 DEPRESSIVE DISORDER NEC 05/06/2015 DAGOBERTO AMOR ADALBERTO Ot 338.18 OTHER ACUTE POSTOPERATIVE PAIN 05/06/2015 DAGOBERTO AMOR ADALBERTO Ot 401.9 HYPERTENSION NOS 05/06/2015 DAGOBERTO AMOR ADALBERTO Ot 414.01 CORONARY ATHEROSCLEROSIS OF [place] CORON 05/06/2015 DAGOBERTO AMOR ADALBERTO Ot 427.31 ATRIAL FIBRILLATION 05/06/2015 DAGOBERTO AMOR ADALBERTO Ot 433.10 CAROTID ARTERY OCCLUSION W O CEREBRAL IN 05/06/2015 DAGOBERTO AMOR ADALBERTO Ot 433.30 MULT BILTRAL ARTERY OCCLUSION WO CEREBRA 05/06/2015 DAGOBERTO AMOR ADALBERTO Ot 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 05/06/2015 DAGOBERTO AMOR ADALBERTO Ot 530.81 ESOPHAGEAL REFLUX 05/06/2015 DAGOBERTO AMOR ADALBERTO Ot 607.2 INFLAM DIS, PENIS NEC 05/06/2015 DAGOBERTO AMOR ADALBERTO Ot 790.6 ABN BLOOD CHEMISTRY NEC 05/06/2015 DAGOBERTO AMOR ADALBERTO Ot 790.99 BLOOD EXAM - OTH NONSPECIFIC FINDINGS 05/06/2015 DAGOBERTO AMOR ADALBERTO Ot V15.82 HISTORY OF TOBACCO USE 05/06/2015 DAGOBERTO AMOR ADALBERTO Ot V45.81 AORTOCORONARY BYPASS 05/06/2015 DAGOBERTO AMOR ADALBERTO Ot V58.67 LONG-TERM (CURRENT) USE OF INSULIN 05/10/2015 DAGOBERTO AMOR ADALBERTO Ot 250.00 05/10/2015 DAGOBEROT AMOR ADALBERTO Ot 786.2 05/16/2015 WATTS DO, ADALBERTO Ot 250.00 05/16/2015 WATTS DO, ADALBERTO Ot 786.2 05/22/2015 WATTS DO, ADALBERTO Ot 250.00 05/22/2015 DAGOBERTO DO ADALBERTO Ot 272.4 05/22/2015 WATTS DO ADALBERTO Ot 280.8 05/22/2015 DAGOBERTO AMOR ADALBERTO Ot 401.1 05/22/2015 DAGOBERTO AMOR ADALBERTO Ot 414.00 05/22/2015 DAGOBERTO AMOR ADALBERTO Ot 455.6 05/22/2015 WATTS DO, ADALBERTO Ot 530.81 05/22/2015 WATTS DO, ADALBERTO Ot 702.0 05/22/2015 WATTS DO, ADALBERTO Ot 722.10 05/22/2015 WATTS DO, ADALBERTO Ot V58.67 05/27/2015 WATTS DO, ADALBERTO Ot 250.00 05/27/2015 WATTS DO, ADALBERTO Ot 272.4 05/27/2015 WATTS DO, ADALBERTO Ot 280.8 05/27/2015 WATTS DO, ADALBERTO Ot 401.1 05/27/2015 WATTS DO, ADALBERTO Ot 414.00 05/27/2015 WATTS DO, ADALBERTO Ot 455.3 05/27/2015 WATTS DO, ADALBERTO Ot 530.81 05/27/2015 WATTS DO, ADALBERTO Ot 702.0 05/27/2015 WATTS DO, ADALBERTO Ot 722.10 05/27/2015 WATTS DO, ADALBERTO Ot 786.2 05/31/2015 WATTS DO, ADALBERTO Ot 250.00 05/31/2015 WATTS DO, ADALBERTO Ot 272.4 05/31/2015 WATTS DO, ADALBERTO Ot 280.8 05/31/2015 WATTS DO, ADALBERTO Ot 401.1 05/31/2015 WATTS DO, ADALBERTO Ot 414.00 05/31/2015 WATTS DO, ADALBERTO Ot 455.6 05/31/2015 WATTS DO, ADALBERTO Ot 530.81 05/31/2015 WATTS DO, ADALBERTO Ot 702.0 05/31/2015 WATTS DO, ADALBERTO Ot 722.10 05/31/2015 WATTS DO, ADALBERTO Ot 786.2 05/31/2015 WATTS DO, ADALBERTO Ot 919.4 05/31/2015 WATTS DO, ADALBERTO Ot E000.8 05/31/2015 WATTS DO, ADALBERTO Ot E906.4 05/31/2015 WATTS DO, ADALBERTO Ot V58.67 06/10/2015 WATTS DO, ADALBERTO Ot 250.00 06/10/2015 WATTS DO, ADALBERTO Ot 272.4 06/10/2015 WATTS DO, ADALBERTO Ot 280.8 06/10/2015 WATTS DO, ADALBERTO Ot 401.1 06/10/2015 WATTS DO, ADALBERTO Ot 414.00 06/10/2015 WATTS DO, ADALBERTO Ot 455.3 06/10/2015 WATTS DO, ADALBERTO Ot 530.81 06/10/2015 WATTS DO, ADALBERTO Ot 702.0 06/10/2015 WATTS DO, ADALBERTO Ot 722.10 06/10/2015 WATTS DO, ADALBERTO Ot 786.2 06/11/2015 WATTS DO, ADALBERTO Ot 204.00 ACUTE LYMPHOID LEUKEMIA W/O MENTION ACHI 06/11/2015 WATTS DO, ADALBERTO Ot 250.82 DIAB W OTH SPEC MANIFEST, TYPE II OR UNS 06/11/2015 WATTS DO, ADALBERTO Ot 263.9 PROTEIN-ALVA MALNUTR NOS 06/11/2015 WATTS DO, ADALBERTO Ot 272.4 HYPERLIPIDEMIA NEC/NOS 06/11/2015 WATTS DO, ADALBERTO Ot 275.2 DIS MAGNESIUM METABOLISM 06/11/2015 WATTS DO, ADALBERTO Ot 276.1 HYPOSMOLALITY 06/11/2015 WATTS DO, ADALBERTO Ot 285.9 ANEMIA NOS 06/11/2015 WATTS DO, ADALBERTO Ot 287.5 THROMBOCYTOPENIA NOS 06/11/2015 WATTS DO, ADALBERTO Ot 401.9 HYPERTENSION NOS 06/11/2015 WATTS DO, ADALBERTO Ot 414.01 CORONARY ATHEROSCLEROSIS OF [place] CORON 06/11/2015 WATTS DO, ADALBERTO Ot 425.4 PRIM CARDIOMYOPATHY NEC 06/11/2015 DAGOBERTO DO, ADALBERTO Ot 427.31 ATRIAL FIBRILLATION 06/11/2015 WATTS DO, ADALBERTO Ot 428.0 CONGESTIVE HEART FAILURE NOS 06/11/2015 WATTS DO, ADALBERTO Ot 428.21 ACUTE SYSTOLIC HEART FAILURE 06/11/2015 DAGOBERTO DO ADALBERTO Ot 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 06/11/2015 WATTS DO, ADALBERTO Ot 530.81 ESOPHAGEAL REFLUX 06/11/2015 WATTS DO, ADALBERTO Ot 584.9 ACUTE RENAL FAILURE, UNSPECIFIED 06/11/2015 WATTS DO, ADALBERTO Ot 707.8 CHRONIC SKIN ULCER NEC 06/11/2015 WATTS DO, ADLABERTO Ot 780.79 OTH MALAISE FATIGUE 06/11/2015 WATTS DO, ADALBERTO Ot 783.21 LOSS OF WEIGHT 06/11/2015 DAGOBERTO DO ADALBERTO Ot 790.6 ABN BLOOD CHEMISTRY NEC 06/11/2015 DAGOBERTO DO ADALBERTO Ot E932.0 ADV EFF CORTICOSTEROIDS 06/11/2015 ADALBERTO WATTS DO Ot V12.51 HX-VENOUS THROMBOSIS EMBOLISM 06/11/2015 ADALBERTO WATTS DO Ot V45.81 AORTOCORONARY BYPASS 06/11/2015 ADALBERTO WATTS DO Ot V57.89 REHABILITATION PROC NEC 06/11/2015 ADALBERTO WATTS DO Ot V58.67 LONG-TERM (CURRENT) USE OF INSULIN 06/14/2015 EDWIN JEAN, ROBERT E Ot 204.00 06/14/2015 EDWIN JEAN, ROBERT E Ot 250.00 06/14/2015 EDWIN JEAN, ROBERT E Ot 263.9 06/14/2015 EDWIN JEAN, ROBERT E Ot 272.4 06/14/2015 EDWIN JEAN, ROBERT E Ot 285.9 06/14/2015 EDWIN JEAN, ROBERT E Ot 287.5 06/14/2015 EDWIN JEAN, ROBERT E Ot 401.9 06/14/2015 EDWIN JEAN, ROBERT E Ot 414.00 06/14/2015 EDWIN JEAN, ROBERT E Ot 425.9 06/14/2015 EDWIN JEAN, ROBERT E Ot 496 06/14/2015 EDWIN JEAN, ROBERT E Ot 584.9 06/14/2015 EDWIN JEAN, ROBERT E Ot 783.21 06/14/2015 EDWIN JEAN, ROBERT E Ot E930.7 06/14/2015 EDWIN JEAN, ROBERT E Ot V45.81 06/14/2015 EDWIN JEAN, ROBERT E Ot V58.69 06/14/2015 EDWIN JEAN, ROBERT E Ot 204.00 ACUTE LYMPHOID LEUKEMIA W/O MENTION ACHI 06/14/2015 EDWIN JEAN, ROBERT E Ot 250.00 DIAB MILLIE WO COMPL, TYPE II OR UNSPEC TY 06/14/2015 EDWIN JEAN, ROBERT E Ot 263.9 PROTEIN-ALVA MALNUTR NOS 06/14/2015 EDWIN JEAN, ROBERT E Ot 272.4 HYPERLIPIDEMIA NEC/NOS 06/14/2015 EDWIN JEAN, ROBERT E Ot 285.9 ANEMIA NOS 06/14/2015 EDWIN JEAN, ROBERT E Ot 287.5 THROMBOCYTOPENIA NOS 06/14/2015 EDWIN JEAN, ROBERT E Ot 401.9 HYPERTENSION NOS 06/14/2015 EDWIN JEAN, ROBERT E Ot 414.00 CORON ATHEROSCLER NOS TYPE VESSEL, NATIV 06/14/2015 EDWIN JEAN, ROBERT E Ot 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 06/14/2015 ROBERT PINEDA MD E Ot 428.0 CONGESTIVE HEART FAILURE NOS 06/14/2015 ROBERT PINEDA MD E Ot 428.20 UNSPEC SYSTOLIC HRT FAILURE 06/14/2015 ROBERT PINEDA MD Ot 433.10 CAROTID ARTERY OCCLUSION W O CEREBRAL IN 06/14/2015 ROBERT PINEDA MD E Ot 433.30 MULT BILTRAL ARTERY OCCLUSION WO CEREBRA 06/14/2015 ROBERT PINEDA MD Ot 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 06/14/2015 ROBERT PINEDA MD E Ot 584.9 ACUTE RENAL FAILURE, UNSPECIFIED 06/14/2015 ROBERT PINEDA MD E Ot 783.21 LOSS OF WEIGHT 06/14/2015 ROBERT PINEDA MD Ot E930.7 06/14/2015 ROBERT PINEDA MD Ot E933.1 ADV EFF ANTINEOPLASTIC 06/14/2015 ROBERT PINEDA MD E Ot V45.81 AORTOCORONARY BYPASS 06/14/2015 ROBERT PINEDA MD E Ot V57.89 REHABILITATION PROC NEC 06/14/2015 ROBERT PINEDA MD E Ot V58.69 06/17/2015 DAGOBERTO AMOR ADALBERTO Ot 204.00 ACUTE LYMPHOID LEUKEMIA W/O MENTION ACHI 06/17/2015 DAGOBERTO AMOR ADALBERTO Ot 250.02 DIAB MILLIE WO COMPL, TYPE II OR UNSPEC TY 06/17/2015 DAGOBERTO AMOR ADALBERTO Ot 262 OTH SEVERE MALNUTRITION 06/17/2015 DAGOBERTO AMOR ADALBERTO Ot 272.0 PURE HYPERCHOLESTEROLEM 06/17/2015 DAGOBERTO AMOR ADALBERTO Ot 311 DEPRESSIVE DISORDER NEC 06/17/2015 DAGOBERTO AMOR ADALBERTO Ot 401.9 HYPERTENSION NOS 06/17/2015 DAGOBERTO AMOR ADALBERTO Ot 412 OLD MYOCARDIAL INFARCT 06/17/2015 DAGOBERTO AMOR ADALBERTO Ot 414.00 CORON ATHEROSCLER NOS TYPE VESSEL, NATIV 06/17/2015 DAGOBERTO AMOR ADALBERTO Ot 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 06/17/2015 DAGOBERTO AMOR ADALBERTO Ot 427.31 ATRIAL FIBRILLATION 06/17/2015 DAGOBERTO AMOR ADALBERTO Ot 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 06/17/2015 DAGOBERTO AMOR ADALBERTO Ot 530.81 ESOPHAGEAL REFLUX 06/17/2015 DAGOBERTO AMOR ADALBERTO Ot 780.79 OTH MALAISE FATIGUE 06/17/2015 DAGOBERTO AMOR ADALBERTO Ot 783.0 ANOREXIA 06/17/2015 ADALBERTO WATTS DO Ot 783.21 LOSS OF WEIGHT 06/17/2015 ADALBERTO WATTS DO Ot 788.41 URINARY FREQUENCY 06/17/2015 ADALBERTO WATTS DO Ot E933.1 ADV EFF ANTINEOPLASTIC 06/17/2015 ADALBERTO WATTS DO Ot V45.81 AORTOCORONARY BYPASS 06/17/2015 ADALBERTO WATTS DO Ot V58.67 LONG-TERM (CURRENT) USE OF INSULIN 06/17/2015 Ot 280.9 06/17/2015 Ot 414.00 06/17/2015 Ot V45.81 06/17/2015 Ot V58.66 06/17/2015 Ot V58.67 06/17/2015 Ot V58.69 06/17/2015 Ot 397.0 06/17/2015 Ot 401.9 06/17/2015 Ot 414.00 06/17/2015 Ot 424.0 06/17/2015 Ot 401.9 06/17/2015 Ot 414.01 06/17/2015 Ot 426.4 06/17/2015 Ot 280.9 06/17/2015 Ot 414.00 06/17/2015 Ot V45.81 06/17/2015 Ot V58.67 06/17/2015 Ot V58.69 06/17/2015 Ot 786.2 06/17/2015 Ot 473.9 06/17/2015 Ot 786.07 06/17/2015 Ot 272.4 06/17/2015 Ot 401.9 06/17/2015 Ot 414.00 06/17/2015 Ot 280.9 06/17/2015 Ot 414.00 06/17/2015 Ot V45.81 06/17/2015 Ot V58.69 06/17/2015 Ot 280.9 06/17/2015 Ot 414.00 06/17/2015 Ot V12.71 06/17/2015 Ot V45.81 06/17/2015 Ot V58.66 06/17/2015 Ot V58.67 06/17/2015 Ot V58.69 06/17/2015 Ot 250.00 06/17/2015 Ot 280.9 06/17/2015 Ot 414.00 06/17/2015 Ot V12.71 06/17/2015 Ot V45.81 06/17/2015 Ot V58.66 06/17/2015 Ot V58.67 06/17/2015 Ot V58.69 06/17/2015 KAYLEEN LUCAS 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 Ot 250.00 06/17/2015 KAYLEEN LUCAS 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 Ot 280.9 06/17/2015 KAYLEEN LUCAS 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 Ot 414.00 06/17/2015 KAYLEEN LUCAS 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 Ot V12.71 06/17/2015 KAYLEEN LUCAS 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 Ot V45.81 06/17/2015 KAYLEEN LUCAS 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 Ot V58.66 06/17/2015 KAYLEEN LUCAS 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 Ot V58.67 06/17/2015 KAYLEEN LUACS 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 Ot V58.69 06/17/2015 JORGE CARDENAS Ot 280.9 06/17/2015 WATTS DO, ADALBERTO Ot 496 06/17/2015 JORGE CARDENAS Ot 280.9 06/17/2015 AILEEN MORAN MD Ot V72.84 06/17/2015 WATTS DO, ADALBERTO Ot 250.00 06/17/2015 WATTS DO, ADALBERTO Ot 285.9 06/17/2015 WATTS DO, ADALBERTO Ot 786.05 06/17/2015 WATTS DO, ADALBERTO Ot 786.50 06/17/2015 WATTS DO, ADALBERTO Ot V58.69 06/17/2015 WATTS DO, ADALBERTO Ot V58.83 06/17/2015 ELLE CORMIER DO Ot 786.05 06/17/2015 ELLE CORMIER DO Ot V45.81 06/17/2015 WATTS DO, ADALBERTO Ot 250.00 06/17/2015 WATTS DO, ADALBERTO Ot 272.4 06/17/2015 WATTS DO, ADALBERTO Ot 280.8 06/17/2015 WATTS DO, ADALBERTO Ot 401.1 06/17/2015 WATTS DO, ADALBERTO Ot V58.69 06/17/2015 WATTS DO, ADALBERTO Ot 250.00 06/17/2015 WATTS DO, ADALBERTO Ot 272.4 06/17/2015 WATTS DO, ADALBERTO Ot 280.8 06/17/2015 WATTS DO, ADALBERTO Ot 401.1 06/17/2015 WATTS DO, ADALBERTO Ot 414.00 06/17/2015 ELLE CORMIER DO Ot 496 06/17/2015 ELLE CORMIER DO M Ot 496 06/17/2015 CLYDE JEAN, CHRISTOPHER Buchanan Ot 272.4 06/17/2015 CLYDE JEAN, CHRISTOPHER Buchanan Ot 401.9 06/17/2015 CLYDE JEAN, CHRISTOPHER J Ot 414.00 06/17/2015 CLYDE JEAN, CHRISTOPHER Buchanan Ot 786.50 06/17/2015 Ot 272.4 06/17/2015 Ot 401.9 06/17/2015 Ot 414.00 06/17/2015 Ot 557.9 06/17/2015 WATTS DO, ADALBERTO Ot 786.2 06/17/2015 WATTS DO, ADALBERTO Ot 250.00 06/17/2015 WATTS DO, ADALBERTO Ot 272.4 06/17/2015 WATTS DO, ADALBERTO Ot 298.9 06/17/2015 WATTS DO, ADALBERTO Ot 401.9 06/17/2015 WATTS DO, ADALBERTO Ot 414.00 06/17/2015 WATTS DO, ADALBERTO Ot 443.9 06/17/2015 WATTS DO, ADALBERTO Ot 536.8 06/17/2015 WATTS DO, ADALBERTO Ot 789.09 06/17/2015 THERESAJORGE BERNAL Fernandez Ot 280.9 06/17/2015 WATTS DO, ADALBERTO Ot 250.00 06/17/2015 WATTS DO, ADALBERTO Ot 786.2 06/17/2015 DEAN JEAN, AILEEN Segovia Ot V72.84 06/17/2015 DEAN JEAN, AILEEN S Ot 553.1 06/17/2015 DEAN JEAN, AILEEN Segovia Ot V72.84 06/17/2015 WATTS DO, ADALBERTO Ot 250.00 06/17/2015 WATTS DO, ADALBERTO Ot 272.4 06/17/2015 WATTS DO, ADALBERTO Ot 280.8 06/17/2015 WATTS DO, ADALBERTO Ot 401.1 06/17/2015 WATTS DO, ADALBERTO Ot 414.00 06/17/2015 WATTS DO, AADLBERTO Ot 455.6 06/17/2015 WATTS DO, ADALBERTO Ot 530.81 06/17/2015 WATTS DO, ADALBERTO Ot 702.0 06/17/2015 WATTS DO, ADALBERTO Ot 722.10 06/17/2015 WATTS DO, ADALBERTO Ot V58.67 06/17/2015 WATTS DO, ADALBERTO Ot 250.00 06/17/2015 WATTS DO, ADALBERTO Ot 272.4 06/17/2015 WATTS DO, ADALBERTO Ot 280.8 06/17/2015 WATTS DO, ADALBERTO Ot 401.1 06/17/2015 WATTS DO, ADALBERTO Ot 414.00 06/17/2015 WATTS DO, ADALBERTO Ot 455.3 06/17/2015 WATTS DO, ADALBERTO Ot 530.81 06/17/2015 WATTS DO, ADALBERTO Ot 702.0 06/17/2015 WATTS DO, ADALBERTO Ot 722.10 06/17/2015 WATTS DO, ADALBERTO Ot 786.2 06/17/2015 WATTS DO, ADALBERTO Ot 250.00 06/17/2015 WATTS DO, ADALBERTO Ot 272.4 06/17/2015 WATTS DO, ADALBERTO Ot 280.8 06/17/2015 WATTS DO, ADALBERTO Ot 401.1 06/17/2015 WATTS DO, ADALBERTO Ot 414.00 06/17/2015 WATTS DO, ADALBERTO Ot 455.6 06/17/2015 WATTS DO, ADALBERTO Ot 530.81 06/17/2015 WATTS DO, ADALBERTO Ot 702.0 06/17/2015 WATTS DO, ADALBERTO Ot 722.10 06/17/2015 WATTS DO, ADALBERTO Ot 786.2 06/17/2015 WATTS DO, ADALBERTO Ot 919.4 06/17/2015 WATTS DO, ADALBERTO Ot E000.8 06/17/2015 WATTS DO, ADALBERTO Ot E906.4 06/17/2015 WATTS DO, ADALBERTO Ot V58.67 06/28/2015 EDWIN JEAN, ROBERT E Ot 200.10 LYMPHOSARCOMA, EXTRANODAL SOLID ORGAN 06/28/2015 EDWIN JEAN, ROBERT E Ot 250.00 DIAB MILLIE WO COMPL, TYPE II OR UNSPEC TY 06/28/2015 EDWIN JEAN, ROBERT E Ot 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 06/28/2015 EDWIN JEAN, ROBERT E Ot 300.4 DYSTHYMIC DISORDER 06/28/2015 EDWIN JEAN, ROBERT E Ot 401.9 HYPERTENSION NOS 06/28/2015 EDWIN JEAN, ROBERT E Ot 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,SUBENDO INFARCT,SUBSE 06/28/2015 ROBERT PINEDA MD E Ot 414.00 CORON ATHEROSCLER NOS TYPE VESSEL, NATIV 06/28/2015 ROBERT PINEDA MD E Ot 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 06/28/2015 ROBERT PINEDA MD E Ot 428.0 CONGESTIVE HEART FAILURE NOS 06/28/2015 ROBERT PINEDA MD E Ot 428.20 UNSPEC SYSTOLIC HRT FAILURE 06/28/2015 ROBERT PINEDA MD Ot 433.10 CAROTID ARTERY OCCLUSION W O CEREBRAL IN 06/28/2015 ROBERT PINEDA MD E Ot 433.30 MULT BILTRAL ARTERY OCCLUSION WO CEREBRA 06/28/2015 ROBERT PINEDA MD E Ot 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 06/28/2015 ROBERT PINEDA MD Ot 453.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 O 06/28/2015 SHREYAS PINEDA MDIC E Ot 481 PNEUMOCOCCAL PNEUMONIA [STREPTOCOCCUS PN 06/28/2015 ROBERT PINEDA MD E Ot 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 06/28/2015 ROBERT PINEDA MD E Ot 593.9 RENAL URETERAL DIS NOS 06/28/2015 ROBERT PINEDA MD E Ot 599.0 URIN TRACT INFECTION NOS 06/28/2015 ROBERT PINEDA MD E Ot 780.79 OTH MALAISE FATIGUE 06/28/2015 ROBERT PINEDA MD E Ot 787.91 DIARRHEA 06/28/2015 ROBERT PINEDA MD E Ot 788.20 RETENTION OF URINE NOS 06/28/2015 ROBERT PINEDA MD E Ot 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 06/28/2015 ROBERT PINEDA MD E Ot E11.9 TYPE 2 DIABETES MELLITUS WITHOUT COMPLIC 06/28/2015 ROBERT PINEDA MD E Ot E933.1 ADV EFF ANTINEOPLASTIC 06/28/2015 ROBERT PINEDA MD E Ot F34.1 DYSTHYMIC DISORDER 06/28/2015 ROBERT PINEDA MD E Ot I10 ESSENTIAL (PRIMARY) HYPERTENSION 06/28/2015 ROBERT PINEDA MD Ot I21.4 NON-ST ELEVATION (NSTEMI) MYOCARDIAL INF 06/28/2015 ROBERT PINEDA MD E Ot I25.10 ATHSCL HEART DISEASE OF [place] CORONARY 06/28/2015 ROBERT PINEDA MD E Ot 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 06/28/2015 ROBERT PINEDA MD E Ot I50.20 UNSPECIFIED SYSTOLIC (CONGESTIVE) HEART 06/28/2015 ROBERT PINEDA MD Ot I50.9 HEART FAILURE, UNSPECIFIED 06/28/2015 ROBERT PINEDA MD Ot I65.29 OCCLUSION AND STENOSIS OF UNSPECIFIED CA 06/28/2015 ROBERT PINEDA MD Ot I65.8 OCCLUSION AND STENOSIS OF OTHER PRECEREB 06/28/2015 ROBERT PINEDA MD Ot I82.A29 CHRONIC EMBOLISM AND THROMBOSIS OF UNSPE 06/28/2015 ROBERT PINEDA MD Ot I82.B29 CHRONIC EMBOLISM AND THROMBOSIS OF UNSP 06/28/2015 ROBERT PINEDA MD Ot J44.9 CHRONIC OBSTRUCTIVE PULMONARY DISEASE, U 06/28/2015 ROBERT PINEDA MD Ot N28.9 DISORDER OF KIDNEY AND URETER, UNSPECIFI 06/28/2015 ROBERT PINEDA MD Ot N39.0 URINARY TRACT INFECTION, SITE NOT SPECIF 06/28/2015 ROBERT PINEDA MD, Ot NoDx 06/28/2015 ROBERT PINEDA MD Ot R33.9 RETENTION OF URINE, UNSPECIFIED 06/28/2015 ROBERT PINEDA MD Ot V09.81 INFECT RES TO DRUGS NEC, W RES TO MULT D 06/28/2015 ROBERT PINEDA MD Ot V45.81 AORTOCORONARY BYPASS 06/28/2015 ROBERT PINEDA MD Ot V57.89 REHABILITATION PROC NEC 06/28/2015 ROBERT PINEDA MD Ot Z16.35 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 06/28/2015 ROBERT PINEDA MD Ot Z51.89 ENCOUNTER FOR OTHER SPECIFIED AFTERCARE 06/28/2015 ROBERT PINEDA MD Ot Z95.1 PRESENCE OF AORTOCORONARY BYPASS GRAFT 07/05/2015 JORGE CARDENAS Ot 280.9 07/09/2015 JORGE CARDENAS Ot 280.9 07/09/2015 JORGE CARDENAS Ot D50.9 07/11/2015 ADALBERTO WATTS DO Ot 250.00 DIAB MILLIE WO COMPL, TYPE II OR UNSPEC TY 07/11/2015 RACHAEL WATTS DOI Ot 786.2 COUGH 07/11/2015 ADALBERTO WATTS DO Ot E11.9 TYPE 2 DIABETES MELLITUS WITHOUT COMPLIC 07/11/2015 ADALBERTO WATTS DO Ot R05 COUGH 07/17/2015 JORGE CARDENAS Ot 280.9 IRON DEFIC ANEMIA NOS 07/26/2015 AILEEN MORAN MD Ot C95.90 LEUKEMIA, UNSPECIFIED NOT HAVING ACHIEVE 07/26/2015 AILEEN MORAN MD Ot E11.9 TYPE 2 DIABETES MELLITUS WITHOUT COMPLIC 07/26/2015 AILEEN MORAN MD Ot E78.5 HYPERLIPIDEMIA, UNSPECIFIED 07/26/2015 AILEEN MORAN MD Ot I10 ESSENTIAL (PRIMARY) HYPERTENSION 07/26/2015 AILEEN MORAN MD Ot K21.9 GASTRO-ESOPHAGEAL REFLUX DISEASE WITHOUT 07/26/2015 AILEEN MORAN MD Ot Z79.4 TANK TRUCK OPERATOR (CURRENT) USE OF INSULIN 07/26/2015 AILEEN MORAN MD Ot Z79.82 SENIOR CARE (CURRENT) USE OF ASPIRIN 07/31/2015 JORGE CARDENAS Ot 280.9 07/31/2015 JORGE CARDENAS Ot D50.9 08/12/2015 NISSA CASTAÑEDA MD Ot L03.114 08/12/2015 NISSA CASTAÑEDA MD Ot L72.3 08/15/2015 CHRISTOPHER TANG MD Ot I10 08/15/2015 CHRISTOPHER TANG MD Ot I25.10 08/15/2015 CHRISTOPHER TANG MD Ot I48.0 08/15/2015 CHRISTOPHER TANG MD Ot I65.23 08/15/2015 DAGOBERTO AMOR, ADALBERTO Ot K75.2 08/20/2015 KAYLEEN LUCASP Ot D50.9 08/23/2015 NISSA CASTAÑEDA MD Ot L03.114 CELLULITIS OF LEFT UPPER LIMB 08/23/2015 NISSA CASTAÑEDA MD Ot L72.3 SEBACEOUS CYST 08/29/2015 AKYLEEN LUCAS 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 Ot D50.9 08/30/2015 WATTS DO, ADALBERTO Ot N39.0 08/30/2015 WATTS DO, ADALBERTO Ot R19.7 09/05/2015 DAGOBERTO DO, ADALBERTO Ot N39.0 09/09/2015 CHRISTOPHER TANG MD Ot I10 09/09/2015 CHRISTOPHER TANG MD Ot I25.10 09/09/2015 CHRISTOPHER TANG MD Ot I48.0 09/09/2015 CHRISTOPHER TANG MD Ot I65.23 09/16/2015 WATTS DO, ADALBERTO Ot N39.0 09/17/2015 CLYDE JEAN, CHRISTOPHER Buchanan Ot I10 09/17/2015 CLYDE JEAN, CHRISTOPHER Buchanan Ot I25.10 09/17/2015 CLYDE JEAN, CHRISTOPHER Buchanan Ot I48.0 09/17/2015 CLYDE JEAN, CHRISTOPHER Buchanan Ot I65.23 09/17/2015 JORGE CARDENAS Ot 280.9 09/17/2015 THERESAJORGE BERNAL Ot D50.9 09/18/2015 WATTS DO, ADALBERTO Ot N39.0 09/18/2015 KAYLEEN LUCAS 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 Ot D50.9 09/19/2015 KAYLEEN LUCAS 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 Ot D50.9 10/22/2015 JORGE CARDENAS Ot D50.9 IRON DEFICIENCY ANEMIA, UNSPECIFIED 10/22/2015 JORGE CARDENAS Ot Z23 ENCOUNTER FOR IMMUNIZATION 10/24/2015 JORGE CARDENAS Ot 280.9 10/24/2015 JORGE CARDENAS Ot D50.9 10/24/2015 THERESAJORGE Ot V05.9 10/24/2015 THERESAJORGE BERNAL Ot Z23 10/25/2015 WATTS DO, ADALBERTO Ot I70.0 10/25/2015 WATTS DO, ADALBERTO Ot I70.209 10/25/2015 WATTS DO, ADALBERTO Ot I71.9 12/11/2015 WATTS DO, ADALBERTO Ot I70.0 12/11/2015 WATTS DO, ADALBERTO Ot I70.209 12/11/2015 WATTS DO, ADALBERTO Ot I71.9 12/13/2015 WATTS DO, ADALBERTO Ot I70.0 12/13/2015 WATTS DO, ADALBERTO Ot I70.209 12/13/2015 WATTS DO, ADALBERTO Ot I71.9 12/13/2015 CLYDE JEAN, CHRISTOPHER Buchanan Ot E78.2 12/13/2015 CLYDE JEAN, CHRISTOPHER Buchanan Ot I10 12/13/2015 CLYDE JEAN, CHRISTOPHER Buchanan Ot I25.10 12/13/2015 CLYDE JEAN, CHRISTOPHER Buchanan Ot I65.23 12/18/2015 JORGE CARDENAS Ot 280.9 12/18/2015 JORGE CARDENAS Fernandez Ot C91.00 12/18/2015 JORGE CARDENAS Fernandez Ot D50.9 12/18/2015 JORGE CARDENAS Fernandez Ot V05.9 12/18/2015 JORGE CARDENAS Fernandez Ot Z79.899 12/19/2015 CLYDE JEAN, CHRISTOPHER Buchanan Ot E78.2 12/19/2015 CLYDE JEAN, CHRISTOPHER Buchanan Ot I10 12/19/2015 CLYDE JEAN, CHRISTOPHER Buchanan Ot I25.10 12/19/2015 CLYDE JEAN, CHRISTOPHER Buchanan Ot I65.23 12/23/2015 ADALBERTO WATTS DO Ot C91.01 ACUTE LYMPHOBLASTIC LEUKEMIA, IN REMISSI 12/23/2015 ADALBERTO WATTS DO Ot E11.65 TYPE 2 DIABETES MELLITUS WITH HYPERGLYCE 12/23/2015 ADALBERTO WATTS DO Ot E78.5 HYPERLIPIDEMIA, UNSPECIFIED 12/23/2015 ADALBERTO WATTS DO Ot E86.0 DEHYDRATION 12/23/2015 ADALBERTO WATTS DO Ot I10 ESSENTIAL (PRIMARY) HYPERTENSION 12/23/2015 ADALBERTO WATTS DO Ot I25.10 ATHSCL HEART DISEASE OF [place] CORONARY 12/23/2015 ADALBERTO WATTS DO Ot I51.9 HEART DISEASE, UNSPECIFIED 12/23/2015 ADALBERTO WATTS DO Ot J44.9 CHRONIC OBSTRUCTIVE PULMONARY DISEASE, U 12/23/2015 ADALBERTO WATTS DO Ot K52.9 NONINFECTIVE GASTROENTERITIS AND COLITIS 12/23/2015 ADALBERTO WATTS DO Ot T38.0X5A ADVERSE EFFECT OF GLUCOCORT/SYNTH ANALOG 12/23/2015 ADALBERTO WATTS DO Ot T45.1X5A ADVERSE EFFECT OF ANTINEOPLASTIC AND IMM 12/23/2015 ADALBERTO WATTS DO Ot Z79.4 SENIOR CARE (CURRENT) USE OF INSULIN 12/23/2015 ADALBERTO WATTS DO Ot Z95.1 PRESENCE OF AORTOCORONARY BYPASS GRAFT 12/23/2015 ADALBERTO WATTS DO Ot C91.01 12/23/2015 ADALBERTO WATTS DO Ot E11.65 12/23/2015 ADALBERTO WATTS DO Ot E78.5 12/23/2015 ADALBERTO WATTS DO Ot E86.0 12/23/2015 ADALBERTO WATTS DO Ot I10 12/23/2015 WATTS DO, ADALBERTO Ot I25.10 12/23/2015 WATTS DO, ADALBERTO Ot I51.9 12/23/2015 WATTS DO, ADALBERTO Ot J44.9 12/23/2015 WATTS DO, ADALBERTO Ot K52.9 12/23/2015 WATTS DO, ADALBERTO Ot T38.0X5A 12/23/2015 WATTS DO, ADALBERTO Ot T45.1X5A 12/23/2015 WATTS DO, ADALBERTO Ot Z79.4 12/23/2015 WATTS DO, ADALBERTO Ot Z95.1 01/03/2016 THERESA, BOBAN N Ot 280.9 01/03/2016 THERESA, BOBAN N Ot C91.00 01/03/2016 THERESA, BOBAN N Ot D50.9 01/03/2016 THERESA, BOBAN N Ot V05.9 01/03/2016 THERESA, BOBAN N Ot Z79.899 01/13/2016 THERESA, BOBAN N Ot 280.9 01/13/2016 THERESA, BOBAN N Ot C91.00 01/13/2016 THERESA, BOBAN N Ot D50.9 01/13/2016 THERESA, BOBAN N Ot V05.9 01/13/2016 THERESA, BOBAN N Ot Z79.899 01/21/2016 THERESA, BOBAN N Ot C91.00 ACUTE LYMPHOBLASTIC LEUKEMIA NOT HAVING 01/21/2016 THERESA, BOBAN N Ot D50.9 IRON DEFICIENCY ANEMIA, UNSPECIFIED 01/21/2016 THERESA, BOBAN N Ot Z79.899 OTHER SENIOR CARE (CURRENT) DRUG THERAPY 01/23/2016 THERESA, BOBAN N Ot C91.00 01/23/2016 THERESA, BOBAN N Ot D50.9 01/23/2016 THERESA, BOBAN N Ot Z79.899 01/24/2016 THERESA, BOBAN N Ot C91.00 01/24/2016 THERESA, BOBAN N Ot D50.9 01/24/2016 THERESA, BOBAN N Ot Z79.899 02/18/2016 KAYLEEN LUCAS 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 Ot C91.00 ACUTE LYMPHOBLASTIC LEUKEMIA NOT HAVING 02/18/2016 KAYLEEN LUCAS 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 Ot Z79.899 OTHER SENIOR CARE (CURRENT) DRUG THERAPY 02/18/2016 KAYLEEN LUCAS 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 Ot C91.00 ACUTE LYMPHOBLASTIC LEUKEMIA NOT HAVING 02/18/2016 KAYLEEN LUCAS 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 Ot Z79.899 OTHER SENIOR CARE (CURRENT) DRUG THERAPY 04/03/2016 THERESA, BOBAN N Ot C91.00 ACUTE LYMPHOBLASTIC LEUKEMIA NOT HAVING 04/03/2016 THERESA, BOBAN N Ot D50.9 IRON DEFICIENCY ANEMIA, UNSPECIFIED 04/03/2016 THERESA, BOBAN N Ot Z79.899 OTHER SENIOR CARE (CURRENT) DRUG THERAPY 04/08/2016 THERESA, BOBAN N Ot C91.00 ACUTE LYMPHOBLASTIC LEUKEMIA NOT HAVING 04/08/2016 THERESA, BOBAN N Ot D50.9 IRON DEFICIENCY ANEMIA, UNSPECIFIED 04/08/2016 THERESA, BOBAN N Ot 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 04/10/2016 KAYLEEN LUCAS 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 Ot C91.00 ACUTE LYMPHOBLASTIC LEUKEMIA NOT HAVING 04/10/2016 KAYLEEN LUCAS 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 Ot D50.9 IRON DEFICIENCY ANEMIA, UNSPECIFIED 04/10/2016 KAYLEEN LUCAS 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 Ot 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 04/22/2016 THERESA, BOBAN N Ot C91.00 ACUTE LYMPHOBLASTIC LEUKEMIA NOT HAVING 04/22/2016 THERESA, BOBAN N Ot D50.9 IRON DEFICIENCY ANEMIA, UNSPECIFIED 04/22/2016 THERESA, BOBAN N Ot 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 04/23/2016 THERESA, BOBAN N Ot C91.00 ACUTE LYMPHOBLASTIC LEUKEMIA NOT HAVING 04/23/2016 THERESA, BOBAN N Ot D50.9 IRON DEFICIENCY ANEMIA, UNSPECIFIED 04/23/2016 THERESA, BOBAN N Ot 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 04/24/2016 THERESA, BOBAN N Ot C91.00 ACUTE LYMPHOBLASTIC LEUKEMIA NOT HAVING 04/24/2016 THERESA, BOBAN N Ot D50.9 IRON DEFICIENCY ANEMIA, UNSPECIFIED 04/24/2016 THERESA, BOBAN N Ot Z79.899 OTHER SENIOR CARE (CURRENT) DRUG THERAPY 04/29/2016 KAYLEEN LUCAS S 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 Ot C91.00 ACUTE LYMPHOBLASTIC LEUKEMIA NOT HAVING 04/29/2016 KAYLEEN LUCAS S 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 Ot D50.9 IRON DEFICIENCY ANEMIA, UNSPECIFIED 04/29/2016 KAYLEEN LUCAS 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 Ot Z79.899 OTHER SENIOR CARE (CURRENT) DRUG THERAPY 05/19/2016 KAYLEEN LUCAS Ot C91.00 ACUTE LYMPHOBLASTIC LEUKEMIA NOT HAVING 05/19/2016 KAYLEEN LUCAS Ot D50.9 IRON DEFICIENCY ANEMIA, UNSPECIFIED 05/19/2016 KAYLEEN LUCASP Ot 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 05/20/2016 BASSAM FISCHER Ot I25.10 ATHSCL HEART DISEASE OF [place] CORONARY 05/20/2016 BASSAM FISCHER Ot I25.10 ATHSCL HEART DISEASE OF [place] CORONARY 05/20/2016 BASSAM FISCHER Ot I25.10 ATHSCL HEART DISEASE OF [place] CORONARY 05/21/2016 BASSAM FISCHER K Ot E78.2 MIXED HYPERLIPIDEMIA 05/21/2016 BASSAM FISCHER K Ot I10 ESSENTIAL (PRIMARY) HYPERTENSION 05/21/2016 BASSAM FISCHER K Ot I25.10 ATHSCL HEART DISEASE OF [place] CORONARY 05/21/2016 BASSAM FISCHER Ot I65.23 OCCLUSION AND STENOSIS OF BILATERAL [place] 05/21/2016 BASSAM FISCHER Ot E78.2 MIXED HYPERLIPIDEMIA 05/21/2016 BRANDI FISCHERTH K Ot I10 ESSENTIAL (PRIMARY) HYPERTENSION 05/21/2016 BASSAM FISCHER K Ot I25.10 ATHSCL HEART DISEASE OF [place] CORONARY 05/21/2016 BASSAM FISCHER K Ot I65.23 OCCLUSION AND STENOSIS OF BILATERAL [place] 06/02/2016 KAYLEEN LUCASP Ot C91.00 ACUTE LYMPHOBLASTIC LEUKEMIA NOT HAVING 06/02/2016 KAYLEEN LUCAS Ot D50.9 IRON DEFICIENCY ANEMIA, UNSPECIFIED 06/02/2016 KAYLEEN LUCASP Ot Z79.899 OTHER SENIOR CARE (CURRENT) DRUG THERAPY 06/04/2016 KAYLEEN LUCASP Ot C91.00 ACUTE LYMPHOBLASTIC LEUKEMIA NOT HAVING 06/04/2016 KAYLEEN LUCAS Ot D50.9 IRON DEFICIENCY ANEMIA, UNSPECIFIED 06/04/2016 KAYLEEN LUCAS Ot Z79.899 OTHER SENIOR CARE (CURRENT) DRUG THERAPY 06/12/2016 THERESA, JORGE Presley Ot C91.00 ACUTE LYMPHOBLASTIC LEUKEMIA NOT HAVING 06/12/2016 JORGE CARDENAS Ot D50.9 IRON DEFICIENCY ANEMIA, UNSPECIFIED 06/12/2016 JORGE CARDENAS Ot Z79.899 OTHER SENIOR CARE (CURRENT) DRUG THERAPY 06/12/2016 BASSAM FISCHER Ot E78.2 MIXED HYPERLIPIDEMIA 06/12/2016 BASSAM FISCHER Ot I10 ESSENTIAL (PRIMARY) HYPERTENSION 06/12/2016 BASSAM FISCHER Ot I25.10 ATHSCL HEART DISEASE OF [place] CORONARY 06/12/2016 BASSAM FISCHER Ot I65.23 OCCLUSION AND STENOSIS OF BILATERAL [place] 06/15/2016 AILEEN MORAN MD Ot C95.90 LEUKEMIA, UNSPECIFIED NOT HAVING ACHIEVE 06/15/2016 AILEEN MORAN MD Ot E11.9 TYPE 2 DIABETES MELLITUS WITHOUT COMPLIC 06/15/2016 AILEEN MORAN MD Ot E78.5 HYPERLIPIDEMIA, UNSPECIFIED 06/15/2016 AILEEN MORAN MD Ot I10 ESSENTIAL (PRIMARY) HYPERTENSION 06/15/2016 AILEEN MORAN MD Ot K21.9 GASTRO-ESOPHAGEAL REFLUX DISEASE WITHOUT 06/15/2016 AILEEN MORAN MD Ot Z79.4 TANK TRUCK OPERATOR (CURRENT) USE OF INSULIN 06/15/2016 AILEEN MORAN MD Ot Z79.82 TANK TRUCK OPERATOR (CURRENT) USE OF ASPIRIN 06/18/2016 JORGE CARDENAS Ot C91.00 ACUTE LYMPHOBLASTIC LEUKEMIA NOT HAVING 06/18/2016 JORGE CARDENAS Ot D50.9 IRON DEFICIENCY ANEMIA, UNSPECIFIED 06/18/2016 JORGE CARDENAS Ot Z79.899 OTHER SENIOR CARE (CURRENT) DRUG THERAPY 06/26/2016 KAYLEEN LUCAS Ot C91.00 ACUTE LYMPHOBLASTIC LEUKEMIA NOT HAVING 06/26/2016 KAYLEEN LUCAS Ot D50.9 IRON DEFICIENCY ANEMIA, UNSPECIFIED 06/26/2016 KAYLEEN LUCAS Ot Z79.899 OTHER SENIOR CARE (CURRENT) DRUG THERAPY 07/07/2016 KAYLEEN LUCAS Ot C91.00 ACUTE LYMPHOBLASTIC LEUKEMIA NOT HAVING 07/07/2016 KAYLEEN LUCAS Ot D50.9 IRON DEFICIENCY ANEMIA, UNSPECIFIED 07/07/2016 KAYLEEN LUCAS Ot 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 07/13/2016 ANGUS DEJESUS, BASSAM Camacho Ot I25.10 ATHSCL HEART DISEASE OF [place] CORONARY 07/13/2016 Ot 786.07 WHEEZING 07/13/2016 Ot 272.4 HYPERLIPIDEMIA NEC/NOS 07/13/2016 Ot 401.9 HYPERTENSION NOS 07/13/2016 Ot 414.00 CORON ATHEROSCLER NOS TYPE VESSEL, NATIV 07/13/2016 Ot 280.9 IRON DEFIC ANEMIA NOS 07/13/2016 Ot 414.00 CORON ATHEROSCLER NOS TYPE VESSEL, NATIV 07/13/2016 Ot V45.81 AORTOCORONARY BYPASS 07/13/2016 Ot V58.69 OTH MED,LT,CURRENT USE 07/13/2016 Ot 280.9 IRON DEFIC ANEMIA NOS 07/13/2016 Ot 414.00 CORON ATHEROSCLER NOS TYPE VESSEL, NATIV 07/13/2016 Ot V12.71 PERSONAL HISTORY OF PEPTIC ULCER DISEASE 07/13/2016 Ot V45.81 AORTOCORONARY BYPASS 07/13/2016 Ot V58.66 LONG-TERM (CURRENT) USE OF ASPIRIN 07/13/2016 Ot V58.67 LONG-TERM (CURRENT) USE OF INSULIN 07/13/2016 Ot V58.69 OTH MED,LT,CURRENT USE 07/13/2016 Ot 250.00 DIAB MILLIE WO COMPL, TYPE II OR UNSPEC TY 07/13/2016 Ot 280.9 IRON DEFIC ANEMIA NOS 07/13/2016 Ot 414.00 CORON ATHEROSCLER NOS TYPE VESSEL, NATIV 07/13/2016 Ot V12.71 PERSONAL HISTORY OF PEPTIC ULCER DISEASE 07/13/2016 Ot V45.81 AORTOCORONARY BYPASS 07/13/2016 Ot V58.66 LONG-TERM (CURRENT) USE OF ASPIRIN 07/13/2016 Ot V58.67 LONG-TERM (CURRENT) USE OF INSULIN 07/13/2016 Ot V58.69 OTH MED,LT,CURRENT USE 07/13/2016 KAYLEEN LUCAS Ot 250.00 DIAB MILLIE WO COMPL, TYPE II OR UNSPEC TY 07/13/2016 KAYLEEN LUCAS 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 Ot 280.9 IRON DEFIC ANEMIA NOS 07/13/2016 KAYLEEN LUCAS 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 Ot 414.00 CORON ATHEROSCLER NOS TYPE VESSEL, NATIV 07/13/2016 KAYLEEN LUCAS 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 Ot V12.71 PERSONAL HISTORY OF PEPTIC ULCER DISEASE 07/13/2016 KAYLEEN LUCAS 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 Ot V45.81 AORTOCORONARY BYPASS 07/13/2016 KAYLEEN LUCAS 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 Ot V58.66 LONG-TERM (CURRENT) USE OF ASPIRIN 07/13/2016 KAYLEEN LUCAS 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 Ot V58.67 LONG-TERM (CURRENT) USE OF INSULIN 07/13/2016 KAYLEEN LUCAS 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 Ot V58.69 OTH MED,LT,CURRENT USE 07/13/2016 JORGE CARDENAS Ot 280.9 IRON DEFIC ANEMIA NOS 07/13/2016 DAGOBERTO AMOR ADALBERTO Ot 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 07/13/2016 JORGE CARDENAS Ot 280.9 IRON DEFIC ANEMIA NOS 07/13/2016 DEAN JEAN, AILEEN S Ot V72.84 EXAM PRE-OPERATIVE NOS 07/13/2016 DAGOBERTO AMOR ADALBERTO Ot 250.00 DIAB MILLIE WO COMPL, TYPE II OR UNSPEC TY 07/13/2016 DAGOBERTO AMOR ADALBERTO Ot 285.9 ANEMIA NOS 07/13/2016 DAGOBERTO AMOR ADALBERTO Ot 786.05 SHORTNESS OF BREATH 07/13/2016 DAGOBERTO AMOR ADALBERTO Ot 786.50 CHEST PAIN NOS 07/13/2016 DAGOBERTO AMOR ADALBERTO Ot V58.69 OTH MED,LT,CURRENT USE 07/13/2016 DAGOBERTO AMOR ADALBERTO Ot V58.83 ENCOUNTER FOR THERAPEUTIC DRUG MONITORIN 07/13/2016 ELLE CORMIER DO Ot 786.05 SHORTNESS OF BREATH 07/13/2016 ELLE CORMIER DO Ot V45.81 AORTOCORONARY BYPASS 07/13/2016 DAGOBERTO AMOR ADALBERTO Ot 250.00 DIAB MILLIE WO COMPL, TYPE II OR UNSPEC TY 07/13/2016 DAGOBERTO DO, ADALBERTO Ot 272.4 HYPERLIPIDEMIA NEC/NOS 07/13/2016 DAGOBERTO AMOR ADALBERTO Ot 280.8 IRON DEFIC ANEMIA NEC 07/13/2016 WATTS DO, ADALBERTO Ot 401.1 BENIGN HYPERTENSION 07/13/2016 WATTS DO, ADALBERTO Ot V58.69 OTH MED,LT,CURRENT USE 07/13/2016 WATTS DO, ADALBERTO Ot 250.00 DIAB MILLIE WO COMPL, TYPE II OR UNSPEC TY 07/13/2016 WATTS DO, ADALBERTO Ot 272.4 HYPERLIPIDEMIA NEC/NOS 07/13/2016 WATTS DO, ADALBERTO Ot 280.8 IRON DEFIC ANEMIA NEC 07/13/2016 WATTS DO, ADALBERTO Ot 401.1 BENIGN HYPERTENSION 07/13/2016 WATTS DO, ADALBERTO Ot 414.00 CORON ATHEROSCLER NOS TYPE VESSEL, NATIV 07/13/2016 ELLE CORMIER DO Ot 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 07/13/2016 ELLE CORMIER DO Ot 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 07/13/2016 CLYDE JEAN, CHRISTOPHER Buchanan Ot 272.4 HYPERLIPIDEMIA NEC/NOS 07/13/2016 CLYDE JEAN, CHRISTOPHER Buchanan Ot 401.9 HYPERTENSION NOS 07/13/2016 CLYDE JEAN, CHRISTOPHER Buchanan Ot 414.00 CORON ATHEROSCLER NOS TYPE VESSEL, NATIV 07/13/2016 CLYDE JEAN, CHRISTOPHER Buchanan Ot 786.50 CHEST PAIN NOS 07/13/2016 Ot 272.4 HYPERLIPIDEMIA NEC/NOS 07/13/2016 Ot 401.9 HYPERTENSION NOS 07/13/2016 Ot 414.00 CORON ATHEROSCLER NOS TYPE VESSEL, NATIV 07/13/2016 Ot 557.9 VASC INSUFF INTEST NOS 07/13/2016 WATTS DO, ADALBERTO Ot 786.2 COUGH 07/13/2016 WATTS DO, ADALBERTO Ot 250.00 DIAB MILLIE WO COMPL, TYPE II OR UNSPEC TY 07/13/2016 WATTS DO, ADALBERTO Ot 272.4 HYPERLIPIDEMIA NEC/NOS 07/13/2016 WATTS DO, ADALBERTO Ot 298.9 PSYCHOSIS NOS 07/13/2016 WATTS DO, ADALBERTO Ot 401.9 HYPERTENSION NOS 07/13/2016 WATTS DO, ADALBERTO Ot 414.00 CORON ATHEROSCLER NOS TYPE VESSEL, NATIV 07/13/2016 WATTS DO, ADALBERTO Ot 443.9 PERIPH VASCULAR DIS NOS 07/13/2016 WATTS DO, ADALBERTO Ot 536.8 STOMACH FUNCTION DIS NEC 07/13/2016 WATTS DO, ADALBERTO Ot 789.09 ABDOMINAL PAIN, OTHER SPECIFIED SITE 07/13/2016 DEAN JEAN, AILEEN [place] Ot V72.84 EXAM PRE-OPERATIVE NOS 07/13/2016 DEAN JEAN, AILEEN [place] Ot 553.1 UMBILICAL HERNIA 07/13/2016 DEAN JEAN, AILEEN [place] Ot V72.84 EXAM PRE-OPERATIVE NOS 07/13/2016 DAGOBERTO AMOR ADALBERTO Ot 250.00 DIAB MILLIE WO COMPL, TYPE II OR UNSPEC TY 07/13/2016 WATTS DO ADALBERTO Ot 272.4 HYPERLIPIDEMIA NEC/NOS 07/13/2016 DAGOBERTO DO ADALBERTO Ot 280.8 IRON DEFIC ANEMIA NEC 07/13/2016 DAGOBERTO DO ADALBERTO Ot 401.1 BENIGN HYPERTENSION 07/13/2016 WATTS DO ADALBERTO Ot 414.00 CORON ATHEROSCLER NOS TYPE VESSEL, NATIV 07/13/2016 DAGOBERTO AMOR ADALBERTO Ot 455.6 HEMORRHOIDS NOS 07/13/2016 DAGOBERTO DO ADALBERTO Ot 530.81 ESOPHAGEAL REFLUX 07/13/2016 DAGOBERTO DO, ADALBERTO Ot 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 07/13/2016 DAGOBERTO AMOR ADALBERTO Ot 722.10 LUMBAR DISC DISPLACEMENT 07/13/2016 DAGOBERTO AMOR ADALBERTO Ot V58.67 LONG-TERM (CURRENT) USE OF INSULIN 07/13/2016 DAGOBERTO DO ADALBERTO Ot 250.00 DIAB MILLIE WO COMPL, TYPE II OR UNSPEC TY 07/13/2016 DAGOBERTO DO ADALBERTO Ot 272.4 HYPERLIPIDEMIA NEC/NOS 07/13/2016 DAGOBERTO DO ADALBERTO Ot 280.8 IRON DEFIC ANEMIA NEC 07/13/2016 DAGOBERTO DO ADALBERTO Ot 401.1 BENIGN HYPERTENSION 07/13/2016 DAGOBERTO DO ADALBERTO Ot 414.00 CORON ATHEROSCLER NOS TYPE VESSEL, NATIV 07/13/2016 DAGOBERTO AMOR ADALBERTO Ot 455.3 EXT HEMORRHOID W/O COMPL 07/13/2016 DAGOBERTO DO ADALBERTO Ot 530.81 ESOPHAGEAL REFLUX 07/13/2016 DAGOBERTO DO ADALBERTO Ot 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 07/13/2016 DAGOBERTO AMOR ADALBERTO Ot 722.10 LUMBAR DISC DISPLACEMENT 07/13/2016 DAGOBERTO AMOR ADALBERTO Ot 786.2 COUGH 07/13/2016 WATTS DO, ADALBERTO Ot 250.00 DIAB MILLIE WO COMPL, TYPE II OR UNSPEC TY 07/13/2016 DAGOBERTO DO ADALBERTO Ot 272.4 HYPERLIPIDEMIA NEC/NOS 07/13/2016 RACHAEL WATTS DOI Ot 280.8 IRON DEFIC ANEMIA NEC 07/13/2016 ADALBERTO WATTS DO Ot 401.1 BENIGN HYPERTENSION 07/13/2016 ADALBERTO WATTS DO Ot 414.00 CORON ATHEROSCLER NOS TYPE VESSEL, NATIV 07/13/2016 RACHAEL WATTS DOI Ot 455.6 HEMORRHOIDS NOS 07/13/2016 RACHAEL WATTS DOI Ot 530.81 ESOPHAGEAL REFLUX 07/13/2016 RACHAEL WATTS DOI Ot 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 07/13/2016 DAGOBERTO AMOR ADALBERTO Ot 722.10 LUMBAR DISC DISPLACEMENT 07/13/2016 RACHAEL WATTS DOI Ot 786.2 COUGH 07/13/2016 ADALBERTO WATTS DO Ot 919.4 INSECT BITE NEC 07/13/2016 ADALBERTO WATTS DO Ot E000.8 OTHER EXTERNAL CAUSE STATUS 07/13/2016 ADALBERTO WATTS DO Ot E906.4 NONVENOM ARTHROPOD BITE 07/13/2016 ADALBERTO WATTS DO Ot V58.67 LONG-TERM (CURRENT) USE OF INSULIN 07/13/2016 AILEEN MORAN MD Ot C95.90 LEUKEMIA, UNSPECIFIED NOT HAVING ACHIEVE 07/13/2016 AILEEN MORAN MD Ot Z01.818 ENCOUNTER FOR OTHER PREPROCEDURAL EXAMIN 07/13/2016 AILEEN MORAN MD Ot Z11.2 ENCOUNTER FOR SCREENING FOR OTHER BACTER 07/13/2016 ADALBERTO WATTS DO Ot 250.00 07/13/2016 ADALBERTO WATTS DO Ot 786.2 07/13/2016 KAYLEEN LUCAS [facility] Ot D50.9 IRON DEFICIENCY ANEMIA, UNSPECIFIED 07/13/2016 ADALBERTO WATTS DO Ot K75.2 NONSPECIFIC REACTIVE HEPATITIS 07/13/2016 CLYDE JEAN, CHRISTOPHER Buchanan Ot I10 ESSENTIAL (PRIMARY) HYPERTENSION 07/13/2016 CHRISTOPHER TANG MD Ot I25.10 ATHSCL HEART DISEASE OF [place] CORONARY 07/13/2016 CHRISTOPHER TANG MD Ot I48.0 PAROXYSMAL ATRIAL FIBRILLATION 07/13/2016 CHRISTOPHER TANG MD Ot I65.23 OCCLUSION AND STENOSIS OF [place]ILATERAL [place] 07/13/2016 ADALBERTO WATTS DO Ot R19.7 DIARRHEA, UNSPECIFIED 07/13/2016 WATTS DO, ADALBERTO Ot N39.0 URINARY TRACT INFECTION, SITE NOT SPECIF 07/13/2016 WATTS DO, ADALBERTO Ot N39.0 URINARY TRACT INFECTION, SITE NOT SPECIF 07/13/2016 KAYLEEN LUCAS 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 Ot D50.9 IRON DEFICIENCY ANEMIA, UNSPECIFIED 07/13/2016 WATTS DO, ADALBERTO Ot N39.0 URINARY TRACT INFECTION, SITE NOT SPECIF 07/13/2016 WATTS DO ADALBERTO Ot I70.0 ATHEROSCLEROSIS OF [place] 07/13/2016 WATTS DO ADALBERTO Ot 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 07/13/2016 WATTS DO ADALBERTO Ot I71.9 AORTIC ANEURYSM OF UNSPECIFIED SITE, WIT 07/13/2016 CLYDE JEAN, CHRISTOPHER Buchanan Ot E78.2 MIXED HYPERLIPIDEMIA 07/13/2016 CHRISTOPHER TANG MD Ot I10 ESSENTIAL (PRIMARY) HYPERTENSION 07/13/2016 CLYDE JEAN, CHRISTOPHER Buchanan Ot I25.10 ATHSCL HEART DISEASE OF [place] CORONARY 07/13/2016 CLYDE JEAN, CHRISTOPHER Buchanan Ot I65.23 OCCLUSION AND STENOSIS OF [place] 07/13/2016 KAYLEEN LUCAS 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 Ot C91.00 ACUTE LYMPHOBLASTIC LEUKEMIA NOT HAVING 07/13/2016 KAYLEEN LUCAS 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 Ot Z79.899 OTHER SENIOR CARE (CURRENT) DRUG THERAPY 07/13/2016 KAYLEEN LUCAS 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 Ot C91.00 ACUTE LYMPHOBLASTIC LEUKEMIA NOT HAVING 07/13/2016 KAYLEEN LUCASP Ot D50.9 IRON DEFICIENCY ANEMIA, UNSPECIFIED 07/13/2016 KAYLEEN LUCAS 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 Ot Z79.899 OTHER SENIOR CARE (CURRENT) DRUG THERAPY 07/13/2016 JORGE CARDENAS Ot C91.00 ACUTE LYMPHOBLASTIC LEUKEMIA NOT HAVING 07/13/2016 JORGE CARDENAS Ot D50.9 IRON DEFICIENCY ANEMIA, UNSPECIFIED 07/13/2016 JORGE CARDENAS Ot Z79.899 OTHER SENIOR CARE (CURRENT) DRUG THERAPY 07/13/2016 BASSAM FISCHER Ot I25.10 ATHSCL HEART DISEASE OF [place] CORONARY 07/13/2016 BASSAM FISCHER Ot E78.2 MIXED HYPERLIPIDEMIA 07/13/2016 FERNANDEZ-DOV PA, BASSAM K Ot I10 ESSENTIAL (PRIMARY) HYPERTENSION 07/13/2016 BASSAM FISCHER Ot I25.10 ATHSCL HEART DISEASE OF [place] CORONARY 07/13/2016 BASSAM FISCHER Ot I65.23 OCCLUSION AND STENOSIS OF [place]AL [place] 07/13/2016 KAYLEEN LUCAS Ot C91.00 ACUTE LYMPHOBLASTIC LEUKEMIA NOT HAVING 07/13/2016 KAYLEEN LUCASP Ot D50.9 IRON DEFICIENCY ANEMIA, UNSPECIFIED 07/13/2016 KAYLEEN LUCAS Ot Z79.899 OTHER SENIOR CARE (CURRENT) DRUG THERAPY 07/14/2016 BASSAM FISCHER Ot E78.2 MIXED HYPERLIPIDEMIA 07/14/2016 BASSAM FISCHER Ot I10 ESSENTIAL (PRIMARY) HYPERTENSION 07/14/2016 BASSAM FISCHER Ot I25.10 ATHSCL HEART DISEASE OF [place] CORONARY 07/14/2016 BASSAM FISCHER Ot I65.23 OCCLUSION AND STENOSIS OF [place] 07/14/2016 Ot 786.07 WHEEZING 07/14/2016 Ot 272.4 HYPERLIPIDEMIA NEC/NOS 07/14/2016 Ot 401.9 HYPERTENSION NOS 07/14/2016 Ot 414.00 CORON ATHEROSCLER NOS TYPE VESSEL, NATIV 07/14/2016 Ot 280.9 IRON DEFIC ANEMIA NOS 07/14/2016 Ot 414.00 CORON ATHEROSCLER NOS TYPE VESSEL, NATIV 07/14/2016 Ot V45.81 AORTOCORONARY BYPASS 07/14/2016 Ot V58.69 OTH MED,LT,CURRENT USE 07/14/2016 Ot 280.9 IRON DEFIC ANEMIA NOS 07/14/2016 Ot 414.00 CORON ATHEROSCLER NOS TYPE VESSEL, NATIV 07/14/2016 Ot V12.71 PERSONAL HISTORY OF PEPTIC ULCER DISEASE 07/14/2016 Ot V45.81 AORTOCORONARY BYPASS 07/14/2016 Ot V58.66 LONG-TERM (CURRENT) USE OF ASPIRIN 07/14/2016 Ot V58.67 LONG-TERM (CURRENT) USE OF INSULIN 07/14/2016 Ot V58.69 OTH MED,LT,CURRENT USE 07/14/2016 Ot 250.00 DIAB MILLIE WO COMPL, TYPE II OR UNSPEC TY 07/14/2016 Ot 280.9 IRON DEFIC ANEMIA NOS 07/14/2016 Ot 414.00 CORON ATHEROSCLER NOS TYPE VESSEL, NATIV 07/14/2016 Ot V12.71 PERSONAL HISTORY OF PEPTIC ULCER DISEASE 07/14/2016 Ot V45.81 AORTOCORONARY BYPASS 07/14/2016 Ot V58.66 LONG-TERM (CURRENT) USE OF ASPIRIN 07/14/2016 Ot V58.67 LONG-TERM (CURRENT) USE OF INSULIN 07/14/2016 Ot V58.69 OTH MED,LT,CURRENT USE 07/14/2016 LUCASKAYLEEN Segovia 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 Ot 250.00 DIAB MILLIE WO COMPL, TYPE II OR UNSPEC TY 07/14/2016 LUCASKAYLEEN Segovia 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 Ot 280.9 IRON DEFIC ANEMIA NOS 07/14/2016 LUCASKAYLEEN Segovia 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 Ot 414.00 CORON ATHEROSCLER NOS TYPE VESSEL, NATIV 07/14/2016 LUCASKAYLEEN Segovia 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 Ot V12.71 PERSONAL HISTORY OF PEPTIC ULCER DISEASE 07/14/2016 LUCASKAYLEEN Segovia 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 Ot V45.81 AORTOCORONARY BYPASS 07/14/2016 LUCASKAYLEEN Segovia 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 Ot V58.66 LONG-TERM (CURRENT) USE OF ASPIRIN 07/14/2016 LUCASKAYLEEN Segovia 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 Ot V58.67 LONG-TERM (CURRENT) USE OF INSULIN 07/14/2016 LUCASKAYLEEN Segovia 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 Ot V58.69 OTH MED,LT,CURRENT USE 07/14/2016 JORGE CARDENAS Ot 280.9 IRON DEFIC ANEMIA NOS 07/14/2016 RACHAEL WATTS DOI Ot 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 07/14/2016 JORGE CARDENAS Ot 280.9 IRON DEFIC ANEMIA NOS 07/14/2016 DEAN JEAN, AILEEN S Ot V72.84 EXAM PRE-OPERATIVE NOS 07/14/2016 DAGOBERTO AMOR ADALBERTO Ot 250.00 DIAB MILLIE WO COMPL, TYPE II OR UNSPEC TY 07/14/2016 RACHAEL WATTS DOI Ot 285.9 ANEMIA NOS 07/14/2016 DAGOBERTO AMOR ADALBERTO Ot 786.05 SHORTNESS OF BREATH 07/14/2016 DAGOBERTO AMOR ADALBERTO Ot 786.50 CHEST PAIN NOS 07/14/2016 RACHAEL WATTS DOI Ot V58.69 OTH MED,LT,CURRENT USE 07/14/2016 ADALBERTO WATTS DO Ot V58.83 ENCOUNTER FOR THERAPEUTIC DRUG MONITORIN 07/14/2016 ELLE CORMIER DO Ot 786.05 SHORTNESS OF BREATH 07/14/2016 ELLE CORMIER DO Ot V45.81 AORTOCORONARY BYPASS 07/14/2016 WATTS DO, ADALBERTO Ot 250.00 DIAB MILLIE WO COMPL, TYPE II OR UNSPEC TY 07/14/2016 WATTS DO, ADALBERTO Ot 272.4 HYPERLIPIDEMIA NEC/NOS 07/14/2016 WATTS DO, ADALBERTO Ot 280.8 IRON DEFIC ANEMIA NEC 07/14/2016 WATTS DO, ADALBERTO Ot 401.1 BENIGN HYPERTENSION 07/14/2016 DAGOBERTO DO ADALBERTO Ot V58.69 OT MED,LT,CURRENT USE 07/14/2016 WATTS DO, ADALBERTO Ot 250.00 DIAB MILLIE WO COMPL, TYPE II OR UNSPEC TY 07/14/2016 WATTS DO, ADALBERTO Ot 272.4 HYPERLIPIDEMIA NEC/NOS 07/14/2016 WATTS DO, ADALBERTO Ot 280.8 IRON DEFIC ANEMIA NEC 07/14/2016 WATTS DO ADALBERTO Ot 401.1 BENIGN HYPERTENSION 07/14/2016 DAGOBERTO AMOR ADALBERTO Ot 414.00 CORON ATHEROSCLER NOS TYPE VESSEL, NATIV 07/14/2016 ELLE CORMIER DO Ot 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 07/14/2016 ELLE CORMIER DO Ot 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 07/14/2016 CLYDE JEAN, CHRISTOPHER Buchanan Ot 272.4 HYPERLIPIDEMIA NEC/NOS 07/14/2016 CHRISTOPHER TANG MD Ot 401.9 HYPERTENSION NOS 07/14/2016 CHRISTOPHER TANG MD Ot 414.00 CORON ATHEROSCLER NOS TYPE VESSEL, NATIV 07/14/2016 CHRISTOPHER TANG MD Ot 786.50 CHEST PAIN NOS 07/14/2016 Ot 272.4 HYPERLIPIDEMIA NEC/NOS 07/14/2016 Ot 401.9 HYPERTENSION NOS 07/14/2016 Ot 414.00 CORON ATHEROSCLER NOS TYPE VESSEL, NATIV 07/14/2016 Ot 557.9 VASC INSUFF INTEST NOS 07/14/2016 DAGOBERTO DO, ADALBERTO Ot 786.2 COUGH 07/14/2016 WATTS DO, ADALBERTO Ot 250.00 DIAB MILLIE WO COMPL, TYPE II OR UNSPEC TY 07/14/2016 WATTS DO, ADALBERTO Ot 272.4 HYPERLIPIDEMIA NEC/NOS 07/14/2016 DAGOBERTO AMOR ADALBERTO Ot 298.9 PSYCHOSIS NOS 07/14/2016 DAGOBERTO AMOR ADALBERTO Ot 401.9 HYPERTENSION NOS 07/14/2016 RACHAEL WATTS DOI Ot 414.00 CORON ATHEROSCLER NOS TYPE VESSEL, NATIV 07/14/2016 RACHAEL WATTS DOI Ot 443.9 PERIPH VASCULAR DIS NOS 07/14/2016 DAGOBERTO AMOR ADALBERTO Ot 536.8 STOMACH FUNCTION DIS NEC 07/14/2016 RACHAEL WATTS DOI Ot 789.09 ABDOMINAL PAIN, OTHER SPECIFIED SITE 07/14/2016 DEAN JEAN, AILEEN S Ot V72.84 EXAM PRE-OPERATIVE NOS 07/14/2016 DEAN JEAN, AILEEN S Ot 553.1 UMBILICAL HERNIA 07/14/2016 DEAN JEAN, AILEEN S Ot V72.84 EXAM PRE-OPERATIVE NOS 07/14/2016 DAGOBERTO AMOR ADALBERTO Ot 250.00 DIAB MILLIE WO COMPL, TYPE II OR UNSPEC TY 07/14/2016 DAGOBERTO AMOR ADALBERTO Ot 272.4 HYPERLIPIDEMIA NEC/NOS 07/14/2016 DAGOBERTO AMOR ADALBERTO Ot 280.8 IRON DEFIC ANEMIA NEC 07/14/2016 DAGOBERTO AMOR ADALBERTO Ot 401.1 BENIGN HYPERTENSION 07/14/2016 DAGOBERTO AMOR ADALBERTO Ot 414.00 CORON ATHEROSCLER NOS TYPE VESSEL, NATIV 07/14/2016 DAGOBERTO AMOR ADALBERTO Ot 455.6 HEMORRHOIDS NOS 07/14/2016 DAGOBERTO AMOR ADALBERTO Ot 530.81 ESOPHAGEAL REFLUX 07/14/2016 DAGOBERTO AMOR ADALBERTO Ot 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 07/14/2016 RACHAEL WATTS DOI Ot 722.10 LUMBAR DISC DISPLACEMENT 07/14/2016 RACHAEL WATTS DOI Ot V58.67 LONG-TERM (CURRENT) USE OF INSULIN 07/14/2016 DAGOBERTO AMOR ADALBERTO Ot 250.00 DIAB MILLIE WO COMPL, TYPE II OR UNSPEC TY 07/14/2016 DAGOBERTO AMOR ADALBERTO Ot 272.4 HYPERLIPIDEMIA NEC/NOS 07/14/2016 DAGOBERTO AMOR ADALBERTO Ot 280.8 IRON DEFIC ANEMIA NEC 07/14/2016 DAGOBERTO AMOR ADALBERTO Ot 401.1 BENIGN HYPERTENSION 07/14/2016 DAGOBERTO AMOR ADALBERTO Ot 414.00 CORON ATHEROSCLER NOS TYPE VESSEL, NATIV 07/14/2016 DAGOBERTO AMOR ADALBERTO Ot 455.3 EXT HEMORRHOID W/O COMPL 07/14/2016 DAGOBERTO DO ADALBERTO Ot 530.81 ESOPHAGEAL REFLUX 07/14/2016 DAGOBERTO DO ADALBERTO Ot 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 07/14/2016 DAGOBERTO DO ADALBERTO Ot 722.10 LUMBAR DISC DISPLACEMENT 07/14/2016 DAGOBERTO DO ADALBERTO Ot 786.2 COUGH 07/14/2016 WATTS DO ADALBERTO Ot 250.00 DIAB MILLIE WO COMPL, TYPE II OR UNSPEC TY 07/14/2016 DAGOBERTO DO ADALBERTO Ot 272.4 HYPERLIPIDEMIA NEC/NOS 07/14/2016 DAGOBERTO DO ADALBERTO Ot 280.8 IRON DEFIC ANEMIA NEC 07/14/2016 DAGOBERTO DO ADALBERTO Ot 401.1 BENIGN HYPERTENSION 07/14/2016 DAGOBERTO AMOR ADALBERTO Ot 414.00 CORON ATHEROSCLER NOS TYPE VESSEL, NATIV 07/14/2016 DAGOBERTO DO ADALBERTO Ot 455.6 HEMORRHOIDS NOS 07/14/2016 DAGOBERTO DO ADALBERTO Ot 530.81 ESOPHAGEAL REFLUX 07/14/2016 DAGOBERTO AMOR ADALBERTO Ot 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2 ENCOUNTER FOR SCREENING FOR OTHER BACTER 07/14/2016 DAGOBERTO AMOR ADALBERTO Ot 250.00 07/14/2016 DAGOBERTO AMOR ADALBERTO Ot 786.2 07/14/2016 KAYLEEN LUCAS Ot D50.9 IRON DEFICIENCY ANEMIA, UNSPECIFIED 07/14/2016 DAGOBERTO AMOR ADALBERTO Ot K75.2 NONSPECIFIC REACTIVE HEPATITIS 07/14/2016 CHRISTOPHER TANG MD Ot I10 ESSENTIAL (PRIMARY) HYPERTENSION 07/14/2016 CHRISTOPHER TANG MD Ot I25.10 ATHSCL HEART DISEASE OF [place] CORONARY 07/14/2016 CHRISTOPHER TANG MD Ot I48.0 PAROXYSMAL ATRIAL FIBRILLATION 07/14/2016 CHRISTOPHER TANG MD Ot I65.23 OCCLUSION AND STENOSIS OF [place] 07/14/2016 WATTS DO, ADALBERTO Ot R19.7 DIARRHEA, UNSPECIFIED 07/14/2016 WATTS DO, ADALBERTO Ot N39.0 URINARY TRACT INFECTION, SITE NOT SPECIF 07/14/2016 WATTS DO, ADALBERTO Ot N39.0 URINARY TRACT INFECTION, SITE NOT SPECIF 07/14/2016 KAYLEEN LUCASP Ot D50.9 IRON DEFICIENCY ANEMIA, UNSPECIFIED 07/14/2016 WATTS DO, ADALBERTO Ot N39.0 URINARY TRACT INFECTION, SITE NOT SPECIF 07/14/2016 WATTS DO, ADALBERTO Ot I70.0 ATHEROSCLEROSIS OF [place] 07/14/2016 WATTS DO, ADALBERTO Ot 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 07/14/2016 WATTS DO, ADALBERTO Ot I71.9 AORTIC ANEURYSM OF UNSPECIFIED SITE, WIT 07/14/2016 CHRISTOPHER TANG MD Ot E78.2 MIXED HYPERLIPIDEMIA 07/14/2016 CHRISTOPHER TANG MD Ot I10 ESSENTIAL (PRIMARY) HYPERTENSION 07/14/2016 CHRISTOPHER TANG MD Ot I25.10 ATHSCL HEART DISEASE OF [place] CORONARY 07/14/2016 CHRISTOPHER TANG MD Ot I65.23 OCCLUSION AND STENOSIS OF [place] 07/14/2016 KAYLEEN LUCASP Ot C91.00 ACUTE LYMPHOBLASTIC LEUKEMIA NOT HAVING 07/14/2016 AKYLEEN LUCASP Ot 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 07/14/2016 KAYLEEN LUCAS Ot C91.00 ACUTE LYMPHOBLASTIC LEUKEMIA NOT HAVING 07/14/2016 KAYLEEN LUCAS 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 Ot D50.9 IRON DEFICIENCY ANEMIA, UNSPECIFIED 07/14/2016 KAYLEEN LUCAS 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 Ot 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 07/14/2016 JORGE CARDENAS Ot C91.00 ACUTE LYMPHOBLASTIC LEUKEMIA NOT HAVING 07/14/2016 JORGE CARDENAS Ot D50.9 IRON DEFICIENCY ANEMIA, UNSPECIFIED 07/14/2016 JORGE CARDENAS Ot Z79.899 OTHER SENIOR CARE (CURRENT) DRUG THERAPY 07/14/2016 BASSAM FISCHER Ot E78.2 MIXED HYPERLIPIDEMIA 07/14/2016 BASSAM FISCHER Ot I10 ESSENTIAL (PRIMARY) HYPERTENSION 07/14/2016 BASSAM FISCHER Ot I25.10 ATHSCL HEART DISEASE OF [place] CORONARY 07/14/2016 BASSAM FISCHER Ot I65.23 OCCLUSION AND STENOSIS OF [place] 07/14/2016 BASSAM FISCHER Ot E78.2 MIXED HYPERLIPIDEMIA 07/14/2016 BASSAM FISCHER Ot I10 ESSENTIAL (PRIMARY) HYPERTENSION 07/14/2016 BASSAM FISCHER Ot I25.10 ATHSCL HEART DISEASE OF [place] CORONARY 07/14/2016 BASSAM FISCHER Ot I65.23 OCCLUSION AND STENOSIS OF [place] 07/14/2016 KAYLEEN LUCAS Ot C91.00 ACUTE LYMPHOBLASTIC LEUKEMIA NOT HAVING 07/14/2016 KAYLEEN LUCAS Ot D50.9 IRON DEFICIENCY ANEMIA, UNSPECIFIED 07/14/2016 KAYLEEN LUCAS Ot Z79.899 OTHER SENIOR CARE (CURRENT) DRUG THERAPY 07/14/2016 BASSAM FISCHER Ot E78.2 MIXED HYPERLIPIDEMIA 07/14/2016 BASSAM FISCHER Ot I10 ESSENTIAL (PRIMARY) HYPERTENSION 07/14/2016 BASSAM FISCHER Ot I25.10 ATHSCL HEART DISEASE OF [place] CORONARY 07/14/2016 BASSAM FISCHER Ot I65.23 OCCLUSION AND STENOSIS OF [place] 07/15/2016 Ot 786.07 WHEEZING 07/15/2016 Ot 272.4 HYPERLIPIDEMIA NEC/NOS 07/15/2016 Ot 401.9 HYPERTENSION NOS 07/15/2016 Ot 414.00 CORON ATHEROSCLER NOS TYPE VESSEL, NATIV 07/15/2016 Ot 280.9 IRON DEFIC ANEMIA NOS 07/15/2016 Ot 414.00 CORON ATHEROSCLER NOS TYPE VESSEL, NATIV 07/15/2016 Ot V45.81 AORTOCORONARY BYPASS 07/15/2016 Ot V58.69 OTH MED,LT,CURRENT USE 07/15/2016 Ot 280.9 IRON DEFIC ANEMIA NOS 07/15/2016 Ot 414.00 CORON ATHEROSCLER NOS TYPE VESSEL, NATIV 07/15/2016 Ot V12.71 PERSONAL HISTORY OF PEPTIC ULCER DISEASE 07/15/2016 Ot V45.81 AORTOCORONARY BYPASS 07/15/2016 Ot V58.66 LONG-TERM (CURRENT) USE OF ASPIRIN 07/15/2016 Ot V58.67 LONG-TERM (CURRENT) USE OF INSULIN 07/15/2016 Ot V58.69 OTH MED,LT,CURRENT USE 07/15/2016 Ot 250.00 DIAB MILLIE WO COMPL, TYPE II OR UNSPEC TY 07/15/2016 Ot 280.9 IRON DEFIC ANEMIA NOS 07/15/2016 Ot 414.00 CORON ATHEROSCLER NOS TYPE VESSEL, NATIV 07/15/2016 Ot V12.71 PERSONAL HISTORY OF PEPTIC ULCER DISEASE 07/15/2016 Ot V45.81 AORTOCORONARY BYPASS 07/15/2016 Ot V58.66 LONG-TERM (CURRENT) USE OF ASPIRIN 07/15/2016 Ot V58.67 LONG-TERM (CURRENT) USE OF INSULIN 07/15/2016 Ot V58.69 OTH MED,LT,CURRENT USE 07/15/2016 KAYLEEN LUCAS 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 Ot 250.00 DIAB MILLIE WO COMPL, TYPE II OR UNSPEC TY 07/15/2016 KAYLEEN LUCAS 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 Ot 280.9 IRON DEFIC ANEMIA NOS 07/15/2016 KAYLEEN LUCAS 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 Ot 414.00 CORON ATHEROSCLER NOS TYPE VESSEL, NATIV 07/15/2016 KAYLEEN LUCAS 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 Ot V12.71 PERSONAL HISTORY OF PEPTIC ULCER DISEASE 07/15/2016 KAYLEEN LUCAS 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 Ot V45.81 AORTOCORONARY BYPASS 07/15/2016 KAYLEEN LUCAS 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 Ot V58.66 LONG-TERM (CURRENT) USE OF ASPIRIN 07/15/2016 KAYLEEN LUCAS 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 Ot V58.67 LONG-TERM (CURRENT) USE OF INSULIN 07/15/2016 KAYLEEN LUCASP Ot V58.69 OTH MED,LT,CURRENT USE 07/15/2016 THERESA, BOBAN N Ot 280.9 IRON DEFIC ANEMIA NOS 07/15/2016 WATTS DO, ADALBERTO Ot 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 07/15/2016 JORGE CARDENAS N Ot 280.9 IRON DEFIC ANEMIA NOS 07/15/2016 DEAN JEAN, AILEEN Segovia Ot V72.84 EXAM PRE-OPERATIVE NOS 07/15/2016 WATTS DO, ADALBERTO Ot 250.00 DIAB MILLIE WO COMPL, TYPE II OR UNSPEC TY 07/15/2016 WATTS DO, ADALBERTO Ot 285.9 ANEMIA NOS 07/15/2016 WATTS DO, ADALBERTO Ot 786.05 SHORTNESS OF BREATH 07/15/2016 WATTS DO, ADALBERTO Ot 786.50 CHEST PAIN NOS 07/15/2016 WATTS DO, ADALBERTO Ot V58.69 OTH MED,LT,CURRENT USE 07/15/2016 WATTS DO, ADALBERTO Ot V58.83 ENCOUNTER FOR THERAPEUTIC DRUG MONITORIN 07/15/2016 ELLE CORMIER DO Ot 786.05 SHORTNESS OF BREATH 07/15/2016 ELLE COMRIER DO Ot V45.81 AORTOCORONARY BYPASS 07/15/2016 WATTS DO, ADALBERTO Ot 250.00 DIAB MILLIE WO COMPL, TYPE II OR UNSPEC TY 07/15/2016 WATTS DO, ADALBERTO Ot 272.4 HYPERLIPIDEMIA NEC/NOS 07/15/2016 WATTS DO, ADALBERTO Ot 280.8 IRON DEFIC ANEMIA NEC 07/15/2016 WATTS DO, ADALBERTO Ot 401.1 BENIGN HYPERTENSION 07/15/2016 WATTS DO, ADALBERTO Ot V58.69 OTH MED,LT,CURRENT USE 07/15/2016 WATTS DO, ADALBERTO Ot 250.00 DIAB MILLIE WO COMPL, TYPE II OR UNSPEC TY 07/15/2016 WATTS DO, ADALBERTO Ot 272.4 HYPERLIPIDEMIA NEC/NOS 07/15/2016 WATTS DO, ADALBERTO Ot 280.8 IRON DEFIC ANEMIA NEC 07/15/2016 WATTS DO, ADALBERTO Ot 401.1 BENIGN HYPERTENSION 07/15/2016 WATTS DO, ADALBERTO Ot 414.00 CORON ATHEROSCLER NOS TYPE VESSEL, NATIV 07/15/2016 ELLE CORMIER DO Ot 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 07/15/2016 ELLE CORMIER DO Ot 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 07/15/2016 CLYDE JEAN, CHRISTOPHER Buchanan Ot 272.4 HYPERLIPIDEMIA NEC/NOS 07/15/2016 CLYDE JEAN, CHRISTOPHER Buchanan Ot 401.9 HYPERTENSION NOS 07/15/2016 CLYDE JEAN, CHRISTOPHER Buchanan Ot 414.00 CORON ATHEROSCLER NOS TYPE VESSEL, NATIV 07/15/2016 CLYDE JEAN, CHRISTOPHER Buchanan Ot 786.50 CHEST PAIN NOS 07/15/2016 Ot 272.4 HYPERLIPIDEMIA NEC/NOS 07/15/2016 Ot 401.9 HYPERTENSION NOS 07/15/2016 Ot 414.00 CORON ATHEROSCLER NOS TYPE VESSEL, NATIV 07/15/2016 Ot 557.9 VASC INSUFF INTEST NOS 07/15/2016 DAGOBERTO DO, ADALBERTO Ot 786.2 COUGH 07/15/2016 WATTS DO, ADALBERTO Ot 250.00 DIAB MILLIE WO COMPL, TYPE II OR UNSPEC TY 07/15/2016 DAGOBERTO DO ADALBERTO Ot 272.4 HYPERLIPIDEMIA NEC/NOS 07/15/2016 DAGOBERTO DO ADALBERTO Ot 298.9 PSYCHOSIS NOS 07/15/2016 WATTS DO, ADALBERTO Ot 401.9 HYPERTENSION NOS 07/15/2016 DAGOBERTO AMOR ADALBERTO Ot 414.00 CORON ATHEROSCLER NOS TYPE VESSEL, NATIV 07/15/2016 DAGOBERTO AMOR ADALBERTO Ot 443.9 PERIPH VASCULAR DIS NOS 07/15/2016 DAGOBERTO DO ADALBERTO Ot 536.8 STOMACH FUNCTION DIS NEC 07/15/2016 DAGOBERTO AMOR ADALBERTO Ot 789.09 ABDOMINAL PAIN, OTHER SPECIFIED SITE 07/15/2016 DEAN JEAN, AILEEN Segovia Ot V72.84 EXAM PRE-OPERATIVE NOS 07/15/2016 DEAN JEAN, AILEEN [place] Ot 553.1 UMBILICAL HERNIA 07/15/2016 DEAN JEAN, AILEEN Segovia Ot V72.84 EXAM PRE-OPERATIVE NOS 07/15/2016 DAGOBERTO AMOR ADALBERTO Ot 250.00 DIAB MILLIE WO COMPL, TYPE II OR UNSPEC TY 07/15/2016 DAGOBERTO DO, ADALBERTO Ot 272.4 HYPERLIPIDEMIA NEC/NOS 07/15/2016 DAGOBERTO AMOR ADALBERTO Ot 280.8 IRON DEFIC ANEMIA NEC 07/15/2016 DAGOBERTO AMOR ADALBERTO Ot 401.1 BENIGN HYPERTENSION 07/15/2016 DAGOBERTO AMOR ADALBERTO Ot 414.00 CORON ATHEROSCLER NOS TYPE VESSEL, NATIV 07/15/2016 DAGOBERTO AMOR ADALBERTO Ot 455.6 HEMORRHOIDS NOS 07/15/2016 DAGOBERTO AMOR ADALBERTO Ot 530.81 ESOPHAGEAL REFLUX 07/15/2016 WATTS DO, ADALBERTO Ot 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 07/15/2016 WATTS DO, ADALBERTO Ot 722.10 LUMBAR DISC DISPLACEMENT 07/15/2016 DAGOBERTO DO ADALBERTO Ot V58.67 LONG-TERM (CURRENT) USE OF INSULIN 07/15/2016 WATTS DO, ADALBERTO Ot 250.00 DIAB MILLIE WO COMPL, TYPE II OR UNSPEC TY 07/15/2016 WATTS DO, ADALBERTO Ot 272.4 HYPERLIPIDEMIA NEC/NOS 07/15/2016 WATTS DO, ADALBERTO Ot 280.8 IRON DEFIC ANEMIA NEC 07/15/2016 WATTS DO, ADALBERTO Ot 401.1 BENIGN HYPERTENSION 07/15/2016 WATTS DO, ADALBERTO Ot 414.00 CORON ATHEROSCLER NOS TYPE VESSEL, NATIV 07/15/2016 WATTS DO ADALBERTO Ot 455.3 EXT HEMORRHOID W/O COMPL 07/15/2016 WATTS DO, ADALBERTO Ot 530.81 ESOPHAGEAL REFLUX 07/15/2016 WATTS DO, ADALBERTO Ot 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 07/15/2016 WATTS DO, ADALBERTO Ot 722.10 LUMBAR DISC DISPLACEMENT 07/15/2016 WATTS DO, ADALBERTO Ot 786.2 COUGH 07/15/2016 WATTS DO, ADALBERTO Ot 250.00 DIAB MILLIE WO COMPL, TYPE II OR UNSPEC TY 07/15/2016 WATTS DO, ADALBERTO Ot 272.4 HYPERLIPIDEMIA NEC/NOS 07/15/2016 WATTS DO, ADALBERTO Ot 280.8 IRON DEFIC ANEMIA NEC 07/15/2016 WATTS DO, ADALBERTO Ot 401.1 BENIGN HYPERTENSION 07/15/2016 WATTS DO, ADALBERTO Ot 414.00 CORON ATHEROSCLER NOS TYPE VESSEL, NATIV 07/15/2016 WATTS DO, ADALBERTO Ot 455.6 HEMORRHOIDS NOS 07/15/2016 WATTS DO, ADALBERTO Ot 530.81 ESOPHAGEAL REFLUX 07/15/2016 WATTS DO, ADALBERTO Ot 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 07/15/2016 WATTS DO, ADALBERTO Ot 722.10 LUMBAR DISC DISPLACEMENT 07/15/2016 WATTS DO, ADALBERTO Ot 786.2 COUGH 07/15/2016 WATTS DO, ADALBERTO Ot 919.4 INSECT BITE NEC 07/15/2016 DAGOBERTO DO ADALBERTO Ot E000.8 OTHER EXTERNAL CAUSE STATUS 07/15/2016 ADALBERTO WATTS DO Ot E906.4 NONVENOM ARTHROPOD BITE 07/15/2016 ADALBERTO WATTS DO Ot V58.67 LONG-TERM (CURRENT) USE OF INSULIN 07/15/2016 AILEEN MORAN MD Ot C95.90 LEUKEMIA, UNSPECIFIED NOT HAVING ACHIEVE 07/15/2016 AILEEN MORAN MD Ot Z01.818 ENCOUNTER FOR OTHER PREPROCEDURAL EXAMIN 07/15/2016 AILEEN MORAN MD Ot Z11.2 ENCOUNTER FOR SCREENING FOR OTHER BACTER 07/15/2016 ADALBERTO WATTS DO Ot 250.00 07/15/2016 ADALBERTO WATTS DO Ot 786.2 07/15/2016 KAYLEEN LUCAS Ot D50.9 IRON DEFICIENCY ANEMIA, UNSPECIFIED 07/15/2016 ADALBERTO WATTS DO Ot K75.2 NONSPECIFIC REACTIVE HEPATITIS 07/15/2016 CHRISTOPHER TANG MD Ot I10 ESSENTIAL (PRIMARY) HYPERTENSION 07/15/2016 CHRISTOPHER TANG MD Ot I25.10 ATHSCL HEART DISEASE OF [place] CORONARY 07/15/2016 CHRISTOPHER TANG MD Ot I48.0 PAROXYSMAL ATRIAL FIBRILLATION 07/15/2016 CHRISTOPHER TANG MD Ot I65.23 OCCLUSION AND STENOSIS OF [place]IL[place]AL [place] 07/15/2016 ADALBERTO WATTS DO Ot R19.7 DIARRHEA, UNSPECIFIED 07/15/2016 DAGOBERTO AMOR ADALBERTO Ot N39.0 URINARY TRACT INFECTION, SITE NOT SPECIF 07/15/2016 RACHAEL WATTS DOI Ot N39.0 URINARY TRACT INFECTION, SITE NOT SPECIF 07/15/2016 KAYLEEN LUCAS Ot D50.9 IRON DEFICIENCY ANEMIA, UNSPECIFIED 07/15/2016 RACHAEL WATTS DOI Ot N39.0 URINARY TRACT INFECTION, SITE NOT SPECIF 07/15/2016 RACHAEL WATTS DOI Ot I70.0 ATHEROSCLEROSIS OF [place] 07/15/2016 ADALBERTO WATTS DO Ot 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 07/15/2016 RACHAEL WATTS DOI Ot I71.9 AORTIC ANEURYSM OF UNSPECIFIED SITE, WIT 07/15/2016 CHRISTOPHER TANG MD Ot E78.2 MIXED HYPERLIPIDEMIA 07/15/2016 CHRISTOPHER TANG MD Ot I10 ESSENTIAL (PRIMARY) HYPERTENSION 07/15/2016 CHRISTOPHER TANG MD Ot I25.10 ATHSCL HEART DISEASE OF [place] CORONARY 07/15/2016 CHRISTOPHER TANG MD Ot I65.23 OCCLUSION AND STENOSIS OF [place] 07/15/2016 KAYLEEN LUCAS 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 Ot C91.00 ACUTE LYMPHOBLASTIC LEUKEMIA NOT HAVING 07/15/2016 LUCASKAYLEEN Segovia S 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 Ot 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 07/15/2016 KAYLEEN LUCAS 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 Ot C91.00 ACUTE LYMPHOBLASTIC LEUKEMIA NOT HAVING 07/15/2016 LUCASKAYLEEN Segovia S 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 Ot D50.9 IRON DEFICIENCY ANEMIA, UNSPECIFIED 07/15/2016 LUCASCORINEAH S 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 Ot Z79.899 OTHER SENIOR CARE (CURRENT) DRUG THERAPY 07/15/2016 JORGE CARDENAS Ot C91.00 ACUTE LYMPHOBLASTIC LEUKEMIA NOT HAVING 07/15/2016 JORGE CARDENAS Ot D50.9 IRON DEFICIENCY ANEMIA, UNSPECIFIED 07/15/2016 JORGE CARDENAS Ot 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 07/15/2016 BASSAM FISCHER Ot E78.2 MIXED HYPERLIPIDEMIA 07/15/2016 BASSAM FISCHER Ot I10 ESSENTIAL (PRIMARY) HYPERTENSION 07/15/2016 BASSAM FISCHER Ot I25.10 ATHSCL HEART DISEASE OF [place] CORONARY 07/15/2016 BASSAM FISCHER Ot I65.23 OCCLUSION AND STENOSIS OF [place] 07/15/2016 BASSAM FISCHER Ot E78.2 MIXED HYPERLIPIDEMIA 07/15/2016 BASSAM FISCHER Ot I10 ESSENTIAL (PRIMARY) HYPERTENSION 07/15/2016 BASSAM FISCHER Ot I25.10 ATHSCL HEART DISEASE OF [place] CORONARY 07/15/2016 BASSAM FISCHER Ot I65.23 OCCLUSION AND STENOSIS OF [place] 07/15/2016 KAYLEEN LUCAS 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 Ot C91.00 ACUTE LYMPHOBLASTIC LEUKEMIA NOT HAVING 07/15/2016 KAYLEEN LUCAS 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 Ot D50.9 IRON DEFICIENCY ANEMIA, UNSPECIFIED 07/15/2016 KAYLEEN LUCAS S 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 Ot 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 07/15/2016 BASSAM FISCHER Ot E78.2 MIXED HYPERLIPIDEMIA 07/15/2016 BASSAM FISCHER Ot I10 ESSENTIAL (PRIMARY) HYPERTENSION 07/15/2016 BASSAM FISCHER Ot I25.10 ATHSCL HEART DISEASE OF [place] CORONARY 07/15/2016 BASSAM FISCHER Ot I65.23 OCCLUSION AND STENOSIS OF [place] 07/20/2016 THERESA, BOBAN N Ot C91.00 ACUTE LYMPHOBLASTIC LEUKEMIA NOT HAVING 07/20/2016 THERESA, BOBAN N Ot D50.9 IRON DEFICIENCY ANEMIA, UNSPECIFIED 07/20/2016 THERESA, BOBAN N Ot Z79.899 OTHER SENIOR CARE (CURRENT) DRUG THERAPY 07/23/2016 THERESA, BOBAN N Ot C91.00 ACUTE LYMPHOBLASTIC LEUKEMIA NOT HAVING 07/23/2016 THERESA, BOBAN N Ot D50.9 IRON DEFICIENCY ANEMIA, UNSPECIFIED 07/23/2016 THERESA, BOBAN N Ot 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 07/29/2016 THERESA, BOBAN N Ot C91.00 ACUTE LYMPHOBLASTIC LEUKEMIA NOT HAVING 07/29/2016 THERESA, BOBAN N Ot D50.9 IRON DEFICIENCY ANEMIA, UNSPECIFIED 07/29/2016 THERESA, BOBAN N Ot Z79.899 OTHER SENIOR CARE (CURRENT) DRUG THERAPY 08/04/2016 BASSAM FISCHER Ot E78.2 MIXED HYPERLIPIDEMIA 08/04/2016 BASSAM FISCHER Ot I10 ESSENTIAL (PRIMARY) HYPERTENSION 08/04/2016 BASSAM FISCHER Ot I25.10 ATHSCL HEART DISEASE OF [place] CORONARY 08/04/2016 BASSAM FISCHER Ot I65.23 OCCLUSION AND STENOSIS OF [place] 08/04/2016 BASSAM FISCHER Ot E78.2 MIXED HYPERLIPIDEMIA 08/04/2016 BASSAM FISCHER Ot I10 ESSENTIAL (PRIMARY) HYPERTENSION 08/04/2016 BASSAM FISCHER Ot I25.10 ATHSCL HEART DISEASE OF [place] CORONARY 08/04/2016 BASSAM FISCHER Ot I65.23 OCCLUSION AND STENOSIS OF BILATERAL [place] 08/12/2016 DAGOBERTO AMOR ADALBERTO Ot E11.9 TYPE 2 DIABETES MELLITUS WITHOUT COMPLIC 08/12/2016 DAGOBERTO AMOR ADALBERTO Ot E78.5 HYPERLIPIDEMIA, UNSPECIFIED 08/13/2016 BASSAM FISCHER Ot E78.2 MIXED HYPERLIPIDEMIA 08/13/2016 BASSAM FISCHER Ot I10 ESSENTIAL (PRIMARY) HYPERTENSION 08/13/2016 BASSAM FISCHER Ot I25.10 ATHSCL HEART DISEASE OF [place] CORONARY 08/13/2016 BASSAM FISCHER Ot I65.23 OCCLUSION AND STENOSIS OF [place]IL[place]AL [place] 08/13/2016 BASSAM FISCHER Ot E78.2 MIXED HYPERLIPIDEMIA 08/13/2016 BASSAM FISCHER Ot I10 ESSENTIAL (PRIMARY) HYPERTENSION 08/13/2016 BASSAM FISCHER Ot I25.10 ATHSCL HEART DISEASE OF [place] CORONARY 08/13/2016 BASSAM FISCHER Ot I65.23 OCCLUSION AND STENOSIS OF [place]IL[place]AL [place] 08/28/2016 DAGOBERTO AMOR ADALBERTO Ot E11.9 TYPE 2 DIABETES MELLITUS WITHOUT COMPLIC 08/28/2016 DAGOBERTO AMOR ADALBERTO Ot E78.5 HYPERLIPIDEMIA, UNSPECIFIED 08/28/2016 DAGOBERTO AMOR ADALBERTO Ot E11.9 TYPE 2 DIABETES MELLITUS WITHOUT COMPLIC 08/28/2016 DAGOBERTO AMOR ADALBERTO Ot E78.5 HYPERLIPIDEMIA, UNSPECIFIED 08/28/2016 DAGOBERTO AMOR ADALBERTO Ot R53.83 OTHER FATIGUE 08/29/2016 DAGOBERTO AMOR ADALBERTO Ot C91.01 ACUTE LYMPHOBLASTIC LEUKEMIA, IN REMISSI 08/29/2016 DAGOBERTO AMOR ADALBERTO Ot E11.42 TYPE 2 DIABETES MELLITUS WITH DIABETIC P 08/29/2016 DAGOBERTO AMOR ADALBERTO Ot E11.65 TYPE 2 DIABETES MELLITUS WITH HYPERGLYCE 08/29/2016 DAGOBERTO AMOR ADALBERTO Ot 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 08/29/2016 DAGOBERTO AMOR ADALBERTO Ot I11.0 HYPERTENSIVE HEART DISEASE WITH HEART FA 08/29/2016 DAGOBERTO AMOR ADALBERTO Ot I21.4 NON-ST ELEVATION (NSTEMI) MYOCARDIAL INF 08/29/2016 DAGOBERTO AMOR ADALBERTO Ot I25.10 ATHSCL HEART DISEASE OF [place] CORONARY 08/29/2016 ADALBERTO WATTS DO Ot I25.2 OLD MYOCARDIAL INFARCTION 08/29/2016 ADALBERTO WATTS DO Ot I25.5 ISCHEMIC CARDIOMYOPATHY 08/29/2016 ADALBERTO WATTS DO Ot I42.9 CARDIOMYOPATHY, UNSPECIFIED 08/29/2016 ADALBERTO WATTS DO Ot I50.22 CHRONIC SYSTOLIC (CONGESTIVE) HEART FAIL 08/29/2016 ADALBERTO WATTS DO Ot I65.23 OCCLUSION AND STENOSIS OF BILATERAL [place] 08/29/2016 ADALBERTO WATTS DO Ot J44.9 CHRONIC OBSTRUCTIVE PULMONARY DISEASE, U 08/29/2016 ADALBERTO WATTS DO Ot K21.9 GASTRO-ESOPHAGEAL REFLUX DISEASE WITHOUT 08/29/2016 ADALBERTO WATTS DO Ot T38.0X5A ADVERSE EFFECT OF GLUCOCORT/SYNTH ANALOG 08/29/2016 ADALBERTO WATTS DO Ot T45.1X5A ADVERSE EFFECT OF ANTINEOPLASTIC AND IMM 08/29/2016 ADALBERTO WATTS DO Ot Z79.4 TANK TRUCK OPERATOR (CURRENT) USE OF INSULIN 08/29/2016 ADALBERTO WATTS DO Ot Z85.828 PERSONAL HISTORY OF OTHER MALIGNANT NEOP 08/29/2016 ADALBERTO WATTS DO Ot Z86.718 PERSONAL HISTORY OF OTHER VENOUS THROMBO 08/29/2016 ADALBERTO WATTS DO Ot Z87.891 PERSONAL HISTORY OF NICOTINE DEPENDENCE 08/29/2016 ADALBERTO WATTS DO Ot Z95.1 PRESENCE OF AORTOCORONARY BYPASS GRAFT 08/29/2016 ADALBERTO WATTS DO Ot C91.01 ACUTE LYMPHOBLASTIC LEUKEMIA, IN REMISSI 08/29/2016 ADALBERTO WATTS DO Ot E11.42 TYPE 2 DIABETES MELLITUS WITH DIABETIC P 08/29/2016 ADALBERTO WATTS DO Ot E11.65 TYPE 2 DIABETES MELLITUS WITH HYPERGLYCE 08/29/2016 ADALBERTO WATTS DO Ot 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 08/29/2016 ADALBERTO WATTS DO Ot I11.0 HYPERTENSIVE HEART DISEASE WITH HEART FA 08/29/2016 ADALBERTO WATTS DO Ot I21.4 NON-ST ELEVATION (NSTEMI) MYOCARDIAL INF 08/29/2016 ADALBERTO WATTS DO Ot I25.10 ATHSCL HEART DISEASE OF [place] CORONARY 08/29/2016 ADALBERTO WATTS DO Ot I25.2 OLD MYOCARDIAL INFARCTION 08/29/2016 ADALBERTO WATTS DO Ot I25.5 ISCHEMIC CARDIOMYOPATHY 08/29/2016 ADALBERTO WATTS DO Ot I42.9 CARDIOMYOPATHY, UNSPECIFIED 08/29/2016 RACHAEL WATTS DOI Ot I50.22 CHRONIC SYSTOLIC (CONGESTIVE) HEART FAIL 08/29/2016 ADALBERTO WATTS DO Ot I65.23 OCCLUSION AND STENOSIS OF BILATERAL [place] 08/29/2016 ADALBERTO WATTS DO Ot J44.9 CHRONIC OBSTRUCTIVE PULMONARY DISEASE, U 08/29/2016 ADALBERTO WATTS DO Ot K21.9 GASTRO-ESOPHAGEAL REFLUX DISEASE WITHOUT 08/29/2016 ADALBERTO WATTS DO Ot T38.0X5A ADVERSE EFFECT OF GLUCOCORT/SYNTH ANALOG 08/29/2016 ADALBERTO WATTS DO Ot T45.1X5A ADVERSE EFFECT OF ANTINEOPLASTIC AND IMM 08/29/2016 ADALBERTO WATTS DO Ot Z79.4 TANK TRUCK OPERATOR (CURRENT) USE OF INSULIN 08/29/2016 ADALBERTO WATTS DO Ot Z85.828 PERSONAL HISTORY OF OTHER MALIGNANT NEOP 08/29/2016 RACHAEL WATTS DOI Ot Z86.718 PERSONAL HISTORY OF OTHER VENOUS THROMBO 08/29/2016 RACHAEL WATTS DOI Ot Z87.891 PERSONAL HISTORY OF NICOTINE DEPENDENCE 08/29/2016 ADALBERTO WATTS DO Ot Z95.1 PRESENCE OF AORTOCORONARY BYPASS GRAFT 09/08/2016 ADALBERTO WATTS DO Ot E11.9 TYPE 2 DIABETES MELLITUS WITHOUT COMPLIC 09/08/2016 RACHAEL WATTS DOI Ot E78.5 HYPERLIPIDEMIA, UNSPECIFIED 09/08/2016 RACHAEL WATTS DOI Ot R53.83 OTHER FATIGUE 09/08/2016 RACHAEL WATTS DOI Ot E11.9 TYPE 2 DIABETES MELLITUS WITHOUT COMPLIC 09/08/2016 RACHAEL WATTS DOI Ot E78.5 HYPERLIPIDEMIA, UNSPECIFIED 09/08/2016 DAGOBERTO AMOR ADALBERTO Ot R53.83 OTHER FATIGUE 09/08/2016 RACHAEL WATTS DOI Ot E11.9 TYPE 2 DIABETES MELLITUS WITHOUT COMPLIC 09/08/2016 RACHAEL WATTS DOI Ot E78.5 HYPERLIPIDEMIA, UNSPECIFIED 09/08/2016 RACHAEL WATTS DOI Ot R53.83 OTHER FATIGUE 09/08/2016 RACHAEL WATTS DOI Ot E11.9 TYPE 2 DIABETES MELLITUS WITHOUT COMPLIC 09/08/2016 WATTS DO, ADALBERTO Ot E78.5 HYPERLIPIDEMIA, UNSPECIFIED 09/08/2016 WATTS DO, ADALBERTO Ot R53.83 OTHER FATIGUE 09/09/2016 WATTS DO, ADALBERTO Ot E11.9 TYPE 2 DIABETES MELLITUS WITHOUT COMPLIC 09/09/2016 WATTS DO, ADALBERTO Ot E78.5 HYPERLIPIDEMIA, UNSPECIFIED 09/09/2016 WATTS DO, ADALBERTO Ot R53.83 OTHER FATIGUE 09/09/2016 WATTS DO ADALBERTO Ot E11.9 TYPE 2 DIABETES MELLITUS WITHOUT COMPLIC 09/09/2016 WATTS DO, ADALBERTO Ot E78.5 HYPERLIPIDEMIA, UNSPECIFIED 09/09/2016 WATTS DO, ADALBERTO Ot R53.83 OTHER FATIGUE 09/16/2016 WATTS DO ADALBERTO Ot C95.91 LEUKEMIA, UNSPECIFIED, IN REMISSION 09/16/2016 WATTS DO ADALBERTO Ot E11.9 TYPE 2 DIABETES MELLITUS WITHOUT COMPLIC 09/16/2016 WATTS DO ADALBERTO Ot E78.5 HYPERLIPIDEMIA, UNSPECIFIED 09/16/2016 DAGOBERTO AMOR ADALBERTO Ot E86.0 DEHYDRATION 09/16/2016 DAGOBERTO DO ADALBERTO Ot I21.4 NON-ST ELEVATION (NSTEMI) MYOCARDIAL INF 09/16/2016 DAGOBERTO AMOR ADALBERTO Ot I25.10 ATHSCL HEART DISEASE OF [place] CORONARY 09/16/2016 DAGOBERTO DO ADALBERTO Ot I48.91 UNSPECIFIED ATRIAL FIBRILLATION 09/16/2016 DAGOBERTO AMOR ADALBERTO Ot J44.9 CHRONIC OBSTRUCTIVE PULMONARY DISEASE, U 09/16/2016 DAGOBERTO AMOR ADALBERTO Ot K21.9 GASTRO-ESOPHAGEAL REFLUX DISEASE WITHOUT 09/16/2016 DAGOBERTO DO ADALBERTO Ot K26.9 DUODENAL ULCER, UNSP ACUTE OR CHRONIC 09/16/2016 DAGOBERTO AMOR ADALBERTO Ot K52.9 NONINFECTIVE GASTROENTERITIS AND COLITIS 09/16/2016 RACHAEL WATTS DOI Ot Z79.4 TANK TRUCK OPERATOR (CURRENT) 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 OF INSULIN 09/16/2016 DAGOBERTO AMOR ADALBERTO Ot Z95.1 PRESENCE OF AORTOCORONARY BYPASS GRAFT 09/16/2016 JORGE CARDENAS Ot C91.00 ACUTE LYMPHOBLASTIC LEUKEMIA NOT HAVING 09/16/2016 JORGE CARDENAS Ot D50.9 IRON DEFICIENCY ANEMIA, UNSPECIFIED 09/16/2016 JORGE CARDENAS Fernandez Ot Z79.899 OTHER SENIOR CARE (CURRENT) DRUG THERAPY 09/16/2016 JORGE CARDENAS Fernandez Ot C91.00 ACUTE LYMPHOBLASTIC LEUKEMIA NOT HAVING 09/16/2016 THERESA, TABBYDUSTIN Fernandez Ot D50.9 IRON DEFICIENCY ANEMIA, UNSPECIFIED 09/16/2016 JORGE CARDENAS Fernandez Ot Z79.899 OTHER SENIOR CARE (CURRENT) DRUG THERAPY 09/16/2016 CHRISTOPHER TANG MD Ot E11.9 TYPE 2 DIABETES MELLITUS WITHOUT COMPLIC 09/16/2016 CHRISTOPHER TANG MD Ot E78.5 HYPERLIPIDEMIA, UNSPECIFIED 09/16/2016 CHRISTOPHER TANG MD Ot I10 ESSENTIAL (PRIMARY) HYPERTENSION 09/16/2016 CHRISTOPHER TANG MD Ot I25.10 ATHSCL HEART DISEASE OF [place] CORONARY 09/16/2016 CHRISTOPHER TANG MD Ot I25.2 OLD MYOCARDIAL INFARCTION 09/16/2016 CHRISTOPHER TANG MD Ot I25.82 CHRONIC TOTAL OCCLUSION OF CORONARY LU[place] A 09/16/2016 CHRISTOPHER TANG MD Ot I50.22 CHRONIC SYSTOLIC (CONGESTIVE) HEART FAIL 09/16/2016 CHRISTOPHER TANG MD Ot 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 09/16/2016 CHRISTOPHER TANG MD Ot Z87.891 PERSONAL HISTORY OF NICOTINE DEPENDENCE 09/16/2016 CHRISTOPHER TANG MD Ot Z92.21 PERSONAL HISTORY OF ANTINEOPLASTIC CHEMO 09/16/2016 CHRISTOPHER TANG MD Ot Z95.1 PRESENCE OF AORTOCORONARY BYPASS GRAFT 10/01/2016 CHRISTOPHER TANG MD Ot E11.9 TYPE 2 DIABETES MELLITUS WITHOUT COMPLIC 10/01/2016 CHRISTOPHER TANG MD Ot E78.5 HYPERLIPIDEMIA, UNSPECIFIED 10/01/2016 CHRISTOPHER TANG MD Ot I10 ESSENTIAL (PRIMARY) HYPERTENSION 10/01/2016 CHRISTOPHER TANG MD Ot I25.10 ATHSCL HEART DISEASE OF [place] CORONARY 10/01/2016 CHRISTOPHER TANG MD Ot I25.2 OLD MYOCARDIAL INFARCTION 10/01/2016 CHRISTOPHER TANG MD Ot I25.82 CHRONIC TOTAL OCCLUSION OF CORONARY [place] A 10/01/2016 CHRISOTPHER TANG MD Ot I50.22 CHRONIC SYSTOLIC (CONGESTIVE) HEART FAIL 10/01/2016 CLYDE JEAN, CHRISTOPHER Buchanan Ot 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 10/01/2016 CHRISTOPHER TANG MD Ot Z87.891 PERSONAL HISTORY OF NICOTINE DEPENDENCE 10/01/2016 CHRISTOPHER TANG MD Ot Z92.21 PERSONAL HISTORY OF ANTINEOPLASTIC CHEMO 10/01/2016 CHRISTOPHER TANG MD Ot Z95.1 PRESENCE OF AORTOCORONARY BYPASS GRAFT 10/20/2016 THERESA TABBYAN N Ot C91.00 ACUTE LYMPHOBLASTIC LEUKEMIA NOT HAVING 10/20/2016 THERESA, BOBAN N Ot D50.9 IRON DEFICIENCY ANEMIA, UNSPECIFIED 10/20/2016 THERESA, BOBAN N Ot 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 10/21/2016 THERESA BOBAN N Ot C91.00 ACUTE LYMPHOBLASTIC LEUKEMIA NOT HAVING 10/21/2016 THERESA, BOBAN N Ot D50.9 IRON DEFICIENCY ANEMIA, UNSPECIFIED 10/21/2016 THERESA, BOBAN N Ot 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 10/22/2016 THERESA, BOBAN N Ot C91.00 ACUTE LYMPHOBLASTIC LEUKEMIA NOT HAVING 10/22/2016 THERESA, BOBAN N Ot D50.9 IRON DEFICIENCY ANEMIA, UNSPECIFIED 10/22/2016 THERESA, BOBAN N Ot Z79.899 OTHER SENIOR CARE (CURRENT) DRUG THERAPY 12/04/2016 ADALBERTO WATTS DO Ot C95.01 ACUTE LEUKEMIA OF UNSPECIFIED CELL TYPE, 12/04/2016 ADALBERTO WATTS DO Ot E11.65 TYPE 2 DIABETES MELLITUS WITH HYPERGLYCE 12/04/2016 ADALBERTO WATTS DO Ot E78.5 HYPERLIPIDEMIA, UNSPECIFIED 12/04/2016 ADALBERTO WATTS DO Ot E86.0 DEHYDRATION 12/04/2016 ADALBERTO WATTS DO Ot I10 ESSENTIAL (PRIMARY) HYPERTENSION 12/04/2016 ADALBERTO WATTS DO Ot I25.10 ATHSCL HEART DISEASE OF [place] CORONARY 12/04/2016 ADALBERTO WATTS DO Ot I95.9 HYPOTENSION, UNSPECIFIED 12/04/2016 ADALBERTO WATTS DO Ot J11.1 FLU DUE TO UNIDENTIFIED INFLUENZA VIRUS 12/04/2016 ADALBERTO WATTS DO Ot J44.1 CHRONIC OBSTRUCTIVE PULMONARY DISEASE W 12/04/2016 ADALBERTO WATTS DO Ot T38.0X5A ADVERSE EFFECT OF GLUCOCORT/SYNTH ANALOG 12/04/2016 ADALBERTO WATTS DO Ot Z79.4 SENIOR CARE (CURRENT) USE OF INSULIN 12/04/2016 ADALBERTO WATTS DO Ot Z95.1 PRESENCE OF AORTOCORONARY BYPASS GRAFT 12/10/2016 ADALBERTO WATTS DO Ot A41.9 SEPSIS, UNSPECIFIED ORGANISM 12/10/2016 ADALBERTO WATTS DO Ot C91.01 ACUTE LYMPHOBLASTIC LEUKEMIA, IN REMISSI 12/10/2016 ADALBERTO WATTS DO Ot D64.9 ANEMIA, UNSPECIFIED 12/10/2016 ADALBERTO WATTS DO Ot E11.40 TYPE 2 DIABETES MELLITUS WITH DIABETIC N 12/10/2016 ADALBERTO WATTS DO Ot E78.00 PURE HYPERCHOLESTEROLEMIA, UNSPECIFIED 12/10/2016 ADALBERTO WATTS DO Ot I11.0 HYPERTENSIVE HEART DISEASE WITH HEART FA 12/10/2016 ADALBERTO WATTS DO Ot I25.10 ATHSCL HEART DISEASE OF [place] CORONARY 12/10/2016 ADALBERTO WATTS DO Ot I25.2 OLD MYOCARDIAL INFARCTION 12/10/2016 ADALBERTO WATTS DO Ot I25.5 ISCHEMIC CARDIOMYOPATHY 12/10/2016 ADALBERTO WATTS DO Ot I48.91 UNSPECIFIED ATRIAL FIBRILLATION 12/10/2016 ADALBERTO WATTS DO Ot I50.22 CHRONIC SYSTOLIC (CONGESTIVE) HEART FAIL 12/10/2016 ADALBERTO WATTS DO Ot J18.9 PNEUMONIA, UNSPECIFIED ORGANISM 12/10/2016 ADALBERTO WATTS DO Ot J44.0 CHRONIC OBSTRUCTIVE PULMON DISEASE W ACU 12/10/2016 ADALBERTO WATTS DO Ot K21.9 GASTRO-ESOPHAGEAL REFLUX DISEASE WITHOUT 12/10/2016 ADALBERTO WATTS DO Ot R19.7 DIARRHEA, UNSPECIFIED 12/10/2016 ADALBERTO WATTS DO Ot R63.0 ANOREXIA 12/10/2016 ADALBERTO WATTS DO Ot T45.1X5A ADVERSE EFFECT OF ANTINEOPLASTIC AND IMM 12/10/2016 ADALBERTO WATTS DO Ot Z79.4 SENIOR CARE (CURRENT) USE OF INSULIN 12/10/2016 ADALBERTO WATTS DO Ot Z86.19 PERSONAL HISTORY OF OTHER INFECTIOUS AND 12/10/2016 ADALBERTO WATTS DO Ot Z87.891 PERSONAL HISTORY OF NICOTINE DEPENDENCE 12/10/2016 ADALBERTO WATTS DO Ot Z95.1 PRESENCE OF AORTOCORONARY BYPASS GRAFT 12/10/2016 ADALBERTO WATTS DO Ot A41.9 SEPSIS, UNSPECIFIED ORGANISM 12/10/2016 ADALBERTO WATTS DO Ot C91.01 ACUTE LYMPHOBLASTIC LEUKEMIA, IN REMISSI 12/10/2016 ADALBERTO WATTS DO Ot D64.9 ANEMIA, UNSPECIFIED 12/10/2016 ADALBERTO WATTS DO Ot E11.40 TYPE 2 DIABETES MELLITUS WITH DIABETIC N 12/10/2016 ADALBERTO WATTS DO Ot E78.00 PURE HYPERCHOLESTEROLEMIA, UNSPECIFIED 12/10/2016 ADALBERTO WATTS DO Ot I11.0 HYPERTENSIVE HEART DISEASE WITH HEART FA 12/10/2016 ADALBERTO WATTS DO Ot I25.10 ATHSCL HEART DISEASE OF [place] CORONARY 12/10/2016 ADALBERTO WATTS DO Ot I25.2 OLD MYOCARDIAL INFARCTION 12/10/2016 ADALBERTO WATTS DO Ot I25.5 ISCHEMIC CARDIOMYOPATHY 12/10/2016 ADALBERTO WATTS DO Ot I48.91 UNSPECIFIED ATRIAL FIBRILLATION 12/10/2016 ADALBERTO WATTS DO Ot I50.22 CHRONIC SYSTOLIC (CONGESTIVE) HEART FAIL 12/10/2016 ADALBERTO WATTS DO Ot J18.9 PNEUMONIA, UNSPECIFIED ORGANISM 12/10/2016 ADALBERTO WATTS DO Ot J44.0 CHRONIC OBSTRUCTIVE PULMON DISEASE W ACU 12/10/2016 ADALBERTO WATTS DO Ot K21.9 GASTRO-ESOPHAGEAL REFLUX DISEASE WITHOUT 12/10/2016 ADALBERTO WATTS DO Ot R19.7 DIARRHEA, UNSPECIFIED 12/10/2016 ADALBERTO WATTS DO Ot R63.0 ANOREXIA 12/10/2016 ADALBERTO WATTS DO Ot T45.1X5A ADVERSE EFFECT OF ANTINEOPLASTIC AND IMM 12/10/2016 ADALBERTO WATTS DO Ot Z79.4 TANK TRUCK OPERATOR (CURRENT) USE OF INSULIN 12/10/2016 ADALBERTO WATTS DO Ot Z86.19 PERSONAL HISTORY OF OTHER INFECTIOUS AND 12/10/2016 ADALBERTO WATTS DO Ot Z87.891 PERSONAL HISTORY OF NICOTINE DEPENDENCE 12/10/2016 ADALBERTO WATTS DO Ot Z95.1 PRESENCE OF AORTOCORONARY BYPASS GRAFT 12/10/2016 ADALBERTO WATTS DO Ot A41.9 SEPSIS, UNSPECIFIED ORGANISM 12/10/2016 ADALBERTO WATTS DO Ot C91.01 ACUTE LYMPHOBLASTIC LEUKEMIA, IN REMISSI 12/10/2016 ADALBERTO WATTS DO Ot D64.9 ANEMIA, UNSPECIFIED 12/10/2016 ADALBERTO WATTS DO Ot E11.40 TYPE 2 DIABETES MELLITUS WITH DIABETIC N 12/10/2016 ADALBERTO WATTS DO Ot E78.00 PURE HYPERCHOLESTEROLEMIA, UNSPECIFIED 12/10/2016 ADALBERTO WATTS DO Ot I11.0 HYPERTENSIVE HEART DISEASE WITH HEART FA 12/10/2016 ADALBERTO WATTS DO Ot I25.10 ATHSCL HEART DISEASE OF [place] CORONARY 12/10/2016 ADALBERTO WATTS DO Ot I25.2 OLD MYOCARDIAL INFARCTION 12/10/2016 ADALBERTO WATTS DO Ot I25.5 ISCHEMIC CARDIOMYOPATHY 12/10/2016 ADALBERTO WATTS DO Ot I48.91 UNSPECIFIED ATRIAL FIBRILLATION 12/10/2016 ADALBERTO WATTS DO Ot I50.22 CHRONIC SYSTOLIC (CONGESTIVE) HEART FAIL 12/10/2016 ADALBERTO WATTS DO Ot J18.9 PNEUMONIA, UNSPECIFIED ORGANISM 12/10/2016 ADALBERTO WATTS DO Ot J44.0 CHRONIC OBSTRUCTIVE PULMON DISEASE W ACU 12/10/2016 ADALBERTO WATTS DO Ot K21.9 GASTRO-ESOPHAGEAL REFLUX DISEASE WITHOUT 12/10/2016 ADALBERTO WATTS DO Ot R19.7 DIARRHEA, UNSPECIFIED 12/10/2016 ADALBERTO WATTS DO Ot R63.0 ANOREXIA 12/10/2016 ADALBERTO WATTS DO Ot T45.1X5A ADVERSE EFFECT OF ANTINEOPLASTIC AND IMM 12/10/2016 ADALBERTO WATTS DO Ot Z79.4 SENIOR CARE (CURRENT) USE OF INSULIN 12/10/2016 ADALBERTO WATTS DO Ot Z86.19 PERSONAL HISTORY OF OTHER INFECTIOUS AND 12/10/2016 ADALBERTO WATTS DO Ot Z87.891 PERSONAL HISTORY OF NICOTINE DEPENDENCE 12/10/2016 ADALBERTO WATTS DO Ot Z95.1 PRESENCE OF AORTOCORONARY BYPASS GRAFT 12/10/2016 ADALBERTO WATTS DO Ot A40.9 STREPTOCOCCAL SEPSIS, UNSPECIFIED 12/10/2016 ADALBERTO WATTS DO Ot A41.9 SEPSIS, UNSPECIFIED ORGANISM 12/10/2016 ADALBERTO WATTS DO Ot C91.01 ACUTE LYMPHOBLASTIC LEUKEMIA, IN REMISSI 12/10/2016 ADALBERTO WATTS DO Ot D64.9 ANEMIA, UNSPECIFIED 12/10/2016 RACHAEL WATTS DOI Ot D69.6 THROMBOCYTOPENIA, UNSPECIFIED 12/10/2016 ADALBERTO WATTS DO Ot E11.40 TYPE 2 DIABETES MELLITUS WITH DIABETIC N 12/10/2016 ADALBERTO WATTS DO Ot E78.00 PURE HYPERCHOLESTEROLEMIA, UNSPECIFIED 12/10/2016 RACHAEL WATTS DOI Ot E78.5 HYPERLIPIDEMIA, UNSPECIFIED 12/10/2016 RACHAEL WATTS DOI Ot E87.2 ACIDOSIS 12/10/2016 RACHAEL WATTS DOI Ot I11.0 HYPERTENSIVE HEART DISEASE WITH HEART FA 12/10/2016 RACHAEL WATTS DOI Ot I25.10 ATHSCL HEART DISEASE OF [place] CORONARY 12/10/2016 ADALBERTO WATTS DO Ot I25.2 OLD MYOCARDIAL INFARCTION 12/10/2016 RACHAEL WATTS DOI Ot I25.5 ISCHEMIC CARDIOMYOPATHY 12/10/2016 RACHAEL WATTS DOI Ot I48.91 UNSPECIFIED ATRIAL FIBRILLATION 12/10/2016 ADALBERTO WATTS DO Ot I50.22 CHRONIC SYSTOLIC (CONGESTIVE) HEART FAIL 12/10/2016 ADALBERTO WATTS DO Ot J15.4 PNEUMONIA DUE TO OTHER STREPTOCOCCI 12/10/2016 RACHAEL WATTS DOI Ot J18.9 PNEUMONIA, UNSPECIFIED ORGANISM 12/10/2016 ADALBERTO WATTS DO Ot J44.0 CHRONIC OBSTRUCTIVE PULMON DISEASE W ACU 12/10/2016 ADALBERTO WATTS DO Ot K21.9 GASTRO-ESOPHAGEAL REFLUX DISEASE WITHOUT 12/10/2016 ADALBERTO WATTS DO Ot R19.7 DIARRHEA, UNSPECIFIED 12/10/2016 ADALBERTO WATTS DO Ot R63.0 ANOREXIA 12/10/2016 ADALBERTO WATTS DO Ot T45.1X5A ADVERSE EFFECT OF ANTINEOPLASTIC AND IMM 12/10/2016 ADALBERTO WATTS DO Ot Z79.4 TANK TRUCK OPERATOR (CURRENT) USE OF INSULIN 12/10/2016 ADALBERTO WATTS DO Ot Z86.19 PERSONAL HISTORY OF OTHER INFECTIOUS AND 12/10/2016 ADALBERTO WATTS DO Ot Z86.718 PERSONAL HISTORY OF OTHER VENOUS THROMBO 12/10/2016 ADALBERTO WATTS DO Ot Z86.73 PRSNL HX OF TIA (TIA), AND CEREB INFRC W 12/10/2016 ADALBERTO WATTS DO Ot Z87.891 PERSONAL HISTORY OF NICOTINE DEPENDENCE 12/10/2016 ADALBERTO WATTS DO Ot Z95.1 PRESENCE OF AORTOCORONARY BYPASS GRAFT 12/10/2016 THERESA, BOBAN N Ot C91.00 ACUTE LYMPHOBLASTIC LEUKEMIA NOT HAVING 12/10/2016 THERESA, BOBAN N Ot D50.9 IRON DEFICIENCY ANEMIA, UNSPECIFIED 12/10/2016 THERESA, BOBAN N Ot Z51.11 ENCOUNTER FOR ANTINEOPLASTIC CHEMOTHERAP 12/10/2016 THERESA, BOBAN N Ot 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 12/17/2016 THERESA, BOBAN N Ot C91.00 ACUTE LYMPHOBLASTIC LEUKEMIA NOT HAVING 12/17/2016 THERESA, BOBAN N Ot D50.9 IRON DEFICIENCY ANEMIA, UNSPECIFIED 12/17/2016 THERESA, BOBAN N Ot Z51.11 ENCOUNTER FOR ANTINEOPLASTIC CHEMOTHERAP 12/17/2016 THERESA, BOBAN N Ot 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 01/19/2017 THERESA, BOBAN N Ot C91.00 ACUTE LYMPHOBLASTIC LEUKEMIA NOT HAVING 01/19/2017 THERESA, BOBAN N Ot D50.9 IRON DEFICIENCY ANEMIA, UNSPECIFIED 01/19/2017 THERESA, BOBAN N Ot Z51.11 ENCOUNTER FOR ANTINEOPLASTIC CHEMOTHERAP 01/19/2017 THERESA, BOBAN N Ot 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 01/22/2017 THERESA, BOBAN N Ot C91.00 ACUTE LYMPHOBLASTIC LEUKEMIA NOT HAVING 01/22/2017 THERESA, BOBAN N Ot D50.9 IRON DEFICIENCY ANEMIA, UNSPECIFIED 01/22/2017 THERESA, BOBAN N Ot Z51.11 ENCOUNTER FOR ANTINEOPLASTIC CHEMOTHERAP 01/22/2017 THERESA, BOBAN N Ot Z79.899 OTHER SENIOR CARE (CURRENT) DRUG THERAPY 02/22/2017 THERESA, BOBAN N Ot C91.00 ACUTE LYMPHOBLASTIC LEUKEMIA NOT HAVING 02/22/2017 THERESA, BOBAN N Ot D50.9 IRON DEFICIENCY ANEMIA, UNSPECIFIED 02/22/2017 THERESA, BOBAN N Ot Z79.899 OTHER SENIOR CARE (CURRENT) DRUG THERAPY 03/12/2017 THERESA, BOBAN N Ot C91.00 ACUTE LYMPHOBLASTIC LEUKEMIA NOT HAVING 03/12/2017 THERESA, BOBAN N Ot D50.9 IRON DEFICIENCY ANEMIA, UNSPECIFIED 03/12/2017 JORGE CARDENAS Ot 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 03/17/2017 JORGE CARDENAS Ot C91.00 ACUTE LYMPHOBLASTIC LEUKEMIA NOT HAVING 03/17/2017 JORGE CARDENAS Ot D50.9 IRON DEFICIENCY ANEMIA, UNSPECIFIED 03/17/2017 JORGE CARDENAS Ot Z79.899 OTHER SENIOR CARE (CURRENT) DRUG THERAPY Procedures Code Description Performed By Performed On 37.22 05/04/2014 88.49 05/04/2014 88.53 05/04/2014 88.56 05/04/2014 45.16 04/18/2015 41.31 05/03/2015 Results Test Result Range Hemoglobin A1c - 08/12/16 10:11 Hemoglobin A1c 8.0 % 4.5-6.2 Lipid 1996 panel - 08/12/16 10:14 Serum or plasma triglyceride measurement (mass/volume) 244 mg/dL <150 Serum or plasma cholesterol measurement (mass/volume) 181 mg /dL < 200 Serum or plasma cholesterol in HDL measurement (mass/volume) 53 mg/dL 40-60 Cholesterol in LDL [mass/volume] in serum or plasma by direct assay 97 mg/dL 1-129 Serum or plasma cholesterol in VLDL measurement (mass/volume) 49 mg/dL 5-40 THYROID STIMULATING HORMONE - 08/12/16 10:14 THYROID STIMULATING HORMONE 1.14 u[iU]/mL 0.35-4.94 Serum or plasma thyroxine (T4) free measurement (mass/volume) - 08/12/16 10:14 Serum or plasma thyroxine (T4) free measurement (mass/volume) 0.94 ng/dL 0.70-1.48 Urine microalbumin measurement by test strip (mass/volume) - 08/12/16 10:14 Urine creatinine measurement (mass/volume) 170 % NRG Microalbumin [mass/volume] in urine 11.1 % 0.0-20.0 Microalbumin/creatinine [ratio] in urine 6.5 mg/g{Cre} 0.0-30.0 Complete blood count (CBC) with automated white blood cell (WBC) differential - 08/28/16 09:21 Blood leukocytes automated count (number/volume) 7.5 10*3/ uL 4.3-11.0 Blood erythrocytes automated count (number/volume) 3.51 10*6 /uL 4.35-5.85 Venous blood hemoglobin measurement (mass/volume) 11.7 g/dL 13.3-17.7 Blood hematocrit (volume fraction) 34 % 40-54 Automated erythrocyte mean corpuscular volume 96 [foz_us] 80-99 Automated erythrocyte mean corpuscular hemoglobin (mass per erythrocyte) 33 pg 25-34 Automated erythrocyte mean corpuscular hemoglobin concentration measurement ( mass/volume) 35 g/dL 32-36 Automated erythrocyte distribution width ratio 14.7 % 10.0-14.5 Automated blood platelet count (count/volume) 187 10*3/uL 130-400 Automated blood platelet mean volume measurement 9.5 [foz_us ] 7.4-10.4 Automated blood neutrophils/100 leukocytes 82 % 42-75 Automated blood lymphocytes/100 leukocytes 10 % 12-44 Blood monocytes/100 leukocytes 8 % 0-12 Automated blood eosinophils/100 leukocytes 0 % 0-10 Automated blood basophils/100 leukocytes 0 % 0-10 Blood neutrophils automated count (number/volume) 6.1 10*3 1.8-7.8 Blood lymphocytes automated count (number/volume) 0.7 10*3 1.0-4.0 Blood monocytes automated count (number/volume) 0.6 10*3 0.0-1.0 Automated eosinophil count 0.0 10*3/uL 0.0-0.3 Automated blood basophil count (count/volume) 0.0 10*3/uL 0.0-0.1 Comprehensive metabolic panel - 08/28/16 09:21 Serum or plasma sodium measurement (moles/volume) 137 mmol/ L 135-145 Serum or plasma potassium measurement (moles/volume) 4.2 mmol/L 3.6-5.0 Serum or plasma chloride measurement (moles/volume) 101 mmol /L 98-107 Carbon dioxide 25 mmol/L 21-32 Serum or plasma anion gap determination (moles/volume) 11 mmol/L 5-14 Serum or plasma urea nitrogen measurement (mass/volume) 26 mg/dL 7-18 Serum or plasma creatinine measurement (mass/volume) 1.15 mg /dL 0.60-1.30 Serum or plasma urea nitrogen/creatinine mass ratio 23 NRG Serum or plasma creatinine measurement with calculation of estimated glomerular filtration rate > NRG Serum or plasma glucose measurement (mass/volume) 338 mg/dL 70-105 Serum or plasma calcium measurement (mass/volume) 9.0 mg/dL 8.5-10.1 Serum or plasma total bilirubin measurement (mass/volume) 0.7 mg/dL 0.1-1.0 Serum or plasma alkaline phosphatase measurement (enzymatic activity/volume) 123 U/L 40-136 Serum or plasma aspartate aminotransferase measurement (enzymatic activity/ volume) 27 U/L 5-34 Serum or plasma alanine aminotransferase measurement (enzymatic activity/volume ) 29 U/L 0-55 Serum or plasma protein measurement (mass/volume) 6.1 g/dL 6.4-8.2 Serum or plasma albumin measurement (mass/volume) 4.3 g/dL 3.2-4.5 Serum or plasma creatine kinase measurement (enzymatic activity/volume) - 08/28 09:21 Serum or plasma creatine kinase measurement (enzymatic activity/volume) 164 U/L 30-200 Serum or plasma troponin i.cardiac measurement (mass/volume) - 08/28/16 09:21 Serum or plasma troponin i.cardiac measurement (mass/volume) 2.71 ng/mL <0.30 Serum or plasma amylase measurement (enzymatic activity/volume) - 08/28/16 09: 21 Serum or plasma amylase measurement (enzymatic activity/volume) 106 U/L 25-125 Serum or plasma lithium measurement (moles/volume) - 08/28/16 09:21 BNP level 409.3 pg/mL <100.0 Lipase - 08/28/16 09:21 Lipase 16 U/L 8-78 Capillary blood glucose measurement by glucometer (mass/volume) - 08/28/16 12: 13 Capillary blood glucose measurement by glucometer (mass/volume) 193 mg/dL 70-110 Capillary blood glucose measurement by glucometer (mass/volume) - 08/28/16 17: 08 Capillary blood glucose measurement by glucometer (mass/volume) 69 mg/dL 70-110 Capillary blood glucose measurement by glucometer (mass/volume) - 08/28/16 21: 02 Capillary blood glucose measurement by glucometer (mass/volume) 206 mg/dL 70-110 Automated blood complete blood count (hemogram) panel - 08/29/16 05:00 Blood leukocytes automated count (number/volume) 4.1 10*3/ uL 4.3-11.0 Blood erythrocytes automated count (number/volume) 3.24 10*6 /uL 4.35-5.85 Venous blood hemoglobin measurement (mass/volume) 10.8 g/dL 13.3-17.7 Blood hematocrit (volume fraction) 31 % 40-54 Automated erythrocyte mean corpuscular volume 96 [foz_us] 80-99 Automated erythrocyte mean corpuscular hemoglobin (mass per erythrocyte) 33 pg 25-34 Automated erythrocyte mean corpuscular hemoglobin concentration measurement ( mass/volume) 35 g/dL 32-36 Automated erythrocyte distribution width ratio 14.6 % 10.0-14.5 Automated blood platelet count (count/volume) 157 10*3/uL 130-400 Automated blood platelet mean volume measurement 9.2 [foz_us ] 7.4-10.4 Comprehensive metabolic panel - 08/29/16 05:00 Serum or plasma sodium measurement (moles/volume) 140 mmol/ L 135-145 Serum or plasma potassium measurement (moles/volume) 3.8 mmol/L 3.6-5.0 Serum or plasma chloride measurement (moles/volume) 104 mmol /L 98-107 Carbon dioxide 25 mmol/L 21-32 Serum or plasma anion gap determination (moles/volume) 11 mmol/L 5-14 Serum or plasma urea nitrogen measurement (mass/volume) 18 mg/dL 7-18 Serum or plasma creatinine measurement (mass/volume) 0.87 mg /dL 0.60-1.30 Serum or plasma urea nitrogen/creatinine mass ratio 21 NRG Serum or plasma creatinine measurement with calculation of estimated glomerular filtration rate > NRG Serum or plasma glucose measurement (mass/volume) 170 mg/dL 70-105 Serum or plasma calcium measurement (mass/volume) 8.7 mg/dL 8.5-10.1 Serum or plasma total bilirubin measurement (mass/volume) 0.7 mg/dL 0.1-1.0 Serum or plasma alkaline phosphatase measurement (enzymatic activity/volume) 76 U/L 40-136 Serum or plasma aspartate aminotransferase measurement (enzymatic activity/ volume) 25 U/L 5-34 Serum or plasma alanine aminotransferase measurement (enzymatic activity/volume ) 21 U/L 0-55 Serum or plasma protein measurement (mass/volume) 5.2 g/dL 6.4-8.2 Serum or plasma albumin measurement (mass/volume) 3.6 g/dL 3.2-4.5 Serum or plasma troponin i.cardiac measurement (mass/volume) - 08/29/16 05:00 Serum or plasma troponin i.cardiac measurement (mass/volume) 3.08 ng/mL <0.30 Serum or plasma lithium measurement (moles/volume) - 08/29/16 05:00 BNP level 281.6 pg/mL <100.0 Lipid 1996 panel - 08/29/16 05:00 Serum or plasma triglyceride measurement (mass/volume) 148 mg/dL <150 Serum or plasma cholesterol measurement (mass/volume) 145 mg /dL < 200 Serum or plasma cholesterol in HDL measurement (mass/volume) 45 mg/dL 40-60 Cholesterol in LDL [mass/volume] in serum or plasma by direct assay 72 mg/dL 1-129 Serum or plasma cholesterol in VLDL measurement (mass/volume) 30 mg/dL 5-40 Complete blood count (CBC) with automated white blood cell (WBC) differential - 09/15/16 12:55 Blood leukocytes automated count (number/volume) 4.7 10*3/ uL 4.3-11.0 Blood erythrocytes automated count (number/volume) 3.48 10*6 /uL 4.35-5.85 Venous blood hemoglobin measurement (mass/volume) 11.6 g/dL 13.3-17.7 Blood hematocrit (volume fraction) 33 % 40-54 Automated erythrocyte mean corpuscular volume 95 [foz_us] 80-99 Automated erythrocyte mean corpuscular hemoglobin (mass per erythrocyte) 33 pg 25-34 Automated erythrocyte mean corpuscular hemoglobin concentration measurement ( mass/volume) 35 g/dL 32-36 Automated erythrocyte distribution width ratio 14.5 % 10.0-14.5 Automated blood platelet count (count/volume) 169 10*3/uL 130-400 Automated blood platelet mean volume measurement 9.3 [foz_us ] 7.4-10.4 Automated blood neutrophils/100 leukocytes 60 % 42-75 Automated blood lymphocytes/100 leukocytes 22 % 12-44 Blood monocytes/100 leukocytes 17 % 0-12 Automated blood eosinophils/100 leukocytes 1 % 0-10 Automated blood basophils/100 leukocytes 0 % 0-10 Blood neutrophils automated count (number/volume) 2.8 10*3 1.8-7.8 Blood lymphocytes automated count (number/volume) 1.0 10*3 1.0-4.0 Blood monocytes automated count (number/volume) 0.8 10*3 0.0-1.0 Automated eosinophil count 0.0 10*3/uL 0.0-0.3 Automated blood basophil count (count/volume) 0.0 10*3/uL 0.0-0.1 Comprehensive metabolic panel - 09/15/16 12:55 Serum or plasma sodium measurement (moles/volume) 138 mmol/ L 135-145 Serum or plasma potassium measurement (moles/volume) 3.6 mmol/L 3.6-5.0 Serum or plasma chloride measurement (moles/volume) 104 mmol /L 98-107 Carbon dioxide 25 mmol/L 21-32 Serum or plasma anion gap determination (moles/volume) 9 mmol/L 5-14 Serum or plasma urea nitrogen measurement (mass/volume) 14 mg/dL 7-18 Serum or plasma creatinine measurement (mass/volume) 1.01 mg /dL 0.60-1.30 Serum or plasma urea nitrogen/creatinine mass ratio 14 NRG Serum or plasma creatinine measurement with calculation of estimated glomerular filtration rate > NRG Serum or plasma glucose measurement (mass/volume) 68 mg/dL 70-105 Serum or plasma calcium measurement (mass/volume) 9.2 mg/dL 8.5-10.1 Serum or plasma total bilirubin measurement (mass/volume) 0.7 mg/dL 0.1-1.0 Serum or plasma alkaline phosphatase measurement (enzymatic activity/volume) 71 U/L 40-136 Serum or plasma aspartate aminotransferase measurement (enzymatic activity/ volume) 21 U/L 5-34 Serum or plasma alanine aminotransferase measurement (enzymatic activity/volume ) 21 U/L 0-55 Serum or plasma protein measurement (mass/volume) 5.9 g/dL 6.4-8.2 Serum or plasma albumin measurement (mass/volume) 4.1 g/dL 3.2-4.5 Serum or plasma troponin i.cardiac measurement (mass/volume) - 09/15/16 12:55 Serum or plasma troponin i.cardiac measurement (mass/volume) < ng/mL <0.30 Serum or plasma lithium measurement (moles/volume) - 09/15/16 12:55 BNP level 189.6 pg/mL <100.0 Capillary blood glucose measurement by glucometer (mass/volume) - 11/29/16 15: 55 Capillary blood glucose measurement by glucometer (mass/volume) 129 mg/dL 70-110 Complete urinalysis with reflex to culture - 09/15/16 17:25 Urine color determination YELLOW NRG Urine clarity determination SLIGHTLY CLOUDY NRG Urine pH measurement by test strip 6 5- 9 Specific gravity of urine by test strip 1.005 1.016-1.022 Urine protein assay by test strip, semi-quantitative NEGATIVE NEGATIVE Urine glucose detection by automated test strip NEGATIVE NEGATIVE Erythrocytes detection in urine sediment by light microscopy NEGATIVE NEGATIVE Urine ketones detection by automated test strip NEGATIVE NEGATIVE Urine nitrite detection by test strip NEGATIVE NEGATIVE Urine total bilirubin detection by test strip NEGATIVE NEGATIVE Urine urobilinogen measurement by automated test strip (mass/volume) NORMAL NORMAL Urine leukocyte esterase detection by dipstick NEGATIVE NEGATIVE Automated urine sediment erythrocyte count by microscopy (number/high power field) RARE NRG Automated urine sediment leukocyte count by microscopy (number/high power field ) [HPF] NRG Bacteria detection in urine sediment by light microscopy NEGATIVE NRG Crystals detection in urine sediment by light microscopy NONE NRG Casts detection in urine sediment by light microscopy NONE NRG Mucus detection in urine sediment by light microscopy NEGATIVE NRG Complete urinalysis with reflex to culture NO NRG Capillary blood glucose measurement by glucometer (mass/volume) - 09/15/16 20: 10 Capillary blood glucose measurement by glucometer (mass/volume) 153 mg/dL 70-110 Capillary blood glucose measurement by glucometer (mass/volume) - 09/16/16 04: 43 Capillary blood glucose measurement by glucometer (mass/volume) 101 mg/dL 70-110 Complete blood count (CBC) with automated white blood cell (WBC) differential - 09/16/16 05:26 Blood leukocytes automated count (number/volume) 4.7 10*3/ uL 4.3-11.0 Blood erythrocytes automated count (number/volume) 3.22 10*6 /uL 4.35-5.85 Venous blood hemoglobin measurement (mass/volume) 10.8 g/dL 13.3-17.7 Blood hematocrit (volume fraction) 31 % 40-54 Automated erythrocyte mean corpuscular volume 96 [foz_us] 80-99 Automated erythrocyte mean corpuscular hemoglobin (mass per erythrocyte) 34 pg 25-34 Automated erythrocyte mean corpuscular hemoglobin concentration measurement ( mass/volume) 35 g/dL 32-36 Automated erythrocyte distribution width ratio 14.5 % 10.0-14.5 Automated blood platelet count (count/volume) 153 10*3/uL 130-400 Automated blood platelet mean volume measurement 9.1 [foz_us ] 7.4-10.4 Automated blood neutrophils/100 leukocytes 63 % 42-75 Automated blood lymphocytes/100 leukocytes 19 % 12-44 Blood monocytes/100 leukocytes 17 % 0-12 Automated blood eosinophils/100 leukocytes 2 % 0-10 Automated blood basophils/100 leukocytes 0 % 0-10 Blood neutrophils automated count (number/volume) 2.9 10*3 1.8-7.8 Blood lymphocytes automated count (number/volume) 0.9 10*3 1.0-4.0 Blood monocytes automated count (number/volume) 0.8 10*3 0.0-1.0 Automated eosinophil count 0.1 10*3/uL 0.0-0.3 Automated blood basophil count (count/volume) 0.0 10*3/uL 0.0-0.1 PT panel in platelet poor plasma by coagulation assay - 09/16/16 05:26 Prothrombin time (PT) in platelet poor plasma by coagulation assay 14.2 s 12.2-14.7 INR in platelet poor plasma or blood by coagulation assay 1.1 0.8-1.4 Activated partial thromboplastin time (aPTT) in platelet poor plasma bycoagulation assay - 09/16/16 05:26 Activated partial thromboplastin time (aPTT) in platelet poor plasma bycoagulation assay 28 s 24-35 Comprehensive metabolic panel - 09/16/16 05:26 Serum or plasma sodium measurement (moles/volume) 141 mmol/ L 135-145 Serum or plasma potassium measurement (moles/volume) 3.8 mmol/L 3.6-5.0 Serum or plasma chloride measurement (moles/volume) 110 mmol /L 98-107 Carbon dioxide 23 mmol/L 21-32 Serum or plasma anion gap determination (moles/volume) 8 mmol/L 5-14 Serum or plasma urea nitrogen measurement (mass/volume) 11 mg/dL 7-18 Serum or plasma creatinine measurement (mass/volume) 0.87 mg /dL 0.60-1.30 Serum or plasma urea nitrogen/creatinine mass ratio 13 NRG Serum or plasma creatinine measurement with calculation of estimated glomerular filtration rate > NRG Serum or plasma glucose measurement (mass/volume) 98 mg/dL 70-105 Serum or plasma calcium measurement (mass/volume) 8.6 mg/dL 8.5-10.1 Serum or plasma total bilirubin measurement (mass/volume) 0.5 mg/dL 0.1-1.0 Serum or plasma alkaline phosphatase measurement (enzymatic activity/volume) 68 U/L 40-136 Serum or plasma aspartate aminotransferase measurement (enzymatic activity/ volume) 18 U/L 5-34 Serum or plasma alanine aminotransferase measurement (enzymatic activity/volume ) 18 U/L 0-55 Serum or plasma protein measurement (mass/volume) 5.4 g/dL 6.4-8.2 Serum or plasma albumin measurement (mass/volume) 3.7 g/dL 3.2-4.5 Lipid 1996 panel - 09/16/16 05:26 Serum or plasma triglyceride measurement (mass/volume) 109 mg/dL <150 Serum or plasma cholesterol measurement (mass/volume) 129 mg /dL < 200 Serum or plasma cholesterol in HDL measurement (mass/volume) 36 mg/dL 40-60 Cholesterol in LDL [mass/volume] in serum or plasma by direct assay 74 mg/dL 1-129 Serum or plasma cholesterol in VLDL measurement (mass/volume) 22 mg/dL 5-40 Influenza virus A and B antigen detection - 12/03/16 11:50 CALL POSITIVES (F1 HELP) CALLED TO NAYA IN ICU AT [address] [facility] FLU RESULT POSITIVE FOR INFLUENZA A ANTIGEN, NEG FOR B ANTIGEN, BY [facility] Complete blood count (CBC) with automated white blood cell (WBC) differential - 12/03/16 12:31 Blood leukocytes automated count (number/volume) 5.7 10*3/ uL 4.3-11.0 Blood erythrocytes automated count (number/volume) 3.15 10*6 /uL 4.35-5.85 Venous blood hemoglobin measurement (mass/volume) 10.6 g/dL 13.3-17.7 Blood hematocrit (volume fraction) 30 % 40-54 Automated erythrocyte mean corpuscular volume 96 [foz_us] 80-99 Automated erythrocyte mean corpuscular hemoglobin (mass per erythrocyte) 34 pg 25-34 Automated erythrocyte mean corpuscular hemoglobin concentration measurement ( mass/volume) 35 g/dL 32-36 Automated erythrocyte distribution width ratio 14.7 % 10.0-14.5 Automated blood platelet count (count/volume) 113 10*3/uL 130-400 Automated blood platelet mean volume measurement 9.5 [foz_us ] 7.4-10.4 Automated blood neutrophils/100 leukocytes 89 % 42-75 Automated blood lymphocytes/100 leukocytes 8 % 12-44 Blood monocytes/100 leukocytes 3 % 0-12 Automated blood eosinophils/100 leukocytes 0 % 0-10 Automated blood basophils/100 leukocytes 0 % 0-10 Blood neutrophils automated count (number/volume) 5.1 10*3 1.8-7.8 Blood lymphocytes automated count (number/volume) 0.5 10*3 1.0-4.0 Blood monocytes automated count (number/volume) 0.2 10*3 0.0-1.0 Automated eosinophil count 0.0 10*3/uL 0.0-0.3 Automated blood basophil count (count/volume) 0.0 10*3/uL 0.0-0.1 Blood manual differential performed detection - 12/03/16 12:31 Blood monocytes/100 leukocytes 2 % NRG Manual blood segmented neutrophils/100 leukocytes 79 % NRG Blood band neutrophils/100 leukocytes 13 % NRG Manual blood lymphocytes/100 leukocytes 5 % NRG Manual eosinophils/100 leukocytes in nose 0 % NRG Manual blood basophils/100 leukocytes 1 % NRG Blood anisocytosis detection by light microscopy SLIGHT NRG Blood ovalocytes detection by light microscopy SLIGHT NRG Comprehensive metabolic panel - 12/03/16 12:31 Serum or plasma sodium measurement (moles/volume) 133 mmol/ L 135-145 Serum or plasma potassium measurement (moles/volume) 4.2 mmol/L 3.6-5.0 Serum or plasma chloride measurement (moles/volume) 100 mmol /L 98-107 Carbon dioxide 20 mmol/L 21-32 Serum or plasma anion gap determination (moles/volume) 13 mmol/L 5-14 Serum or plasma urea nitrogen measurement (mass/volume) 17 mg/dL 7-18 Serum or plasma creatinine measurement (mass/volume) 1.08 mg /dL 0.60-1.30 Serum or plasma urea nitrogen/creatinine mass ratio 16 NRG Serum or plasma creatinine measurement with calculation of estimated glomerular filtration rate > NRG Serum or plasma glucose measurement (mass/volume) 415 mg/dL 70-105 Serum or plasma calcium measurement (mass/volume) 8.2 mg/dL 8.5-10.1 Serum or plasma total bilirubin measurement (mass/volume) 0.8 mg/dL 0.1-1.0 Serum or plasma alkaline phosphatase measurement (enzymatic activity/volume) 65 U/L 40-136 Serum or plasma aspartate aminotransferase measurement (enzymatic activity/ volume) 28 U/L 5-34 Serum or plasma alanine aminotransferase measurement (enzymatic activity/volume ) 40 U/L 0-55 Serum or plasma protein measurement (mass/volume) 5.8 g/dL 6.4-8.2 Serum or plasma albumin measurement (mass/volume) 3.7 g/dL 3.2-4.5 Serum or plasma troponin i.cardiac measurement (mass/volume) - 12/03/16 12:31 Serum or plasma troponin i.cardiac measurement (mass/volume) < ng/mL <0.30 Serum or plasma lithium measurement (moles/volume) - 12/03/16 12:31 BNP level 184.8 pg/mL <100.0 Capillary blood glucose measurement by glucometer (mass/volume) - 12/03/16 21: 10 Capillary blood glucose measurement by glucometer (mass/volume) 351 mg/dL 70-110 Complete blood count (CBC) with automated white blood cell (WBC) differential - 12/04/16 03:55 Blood leukocytes automated count (number/volume) 3.5 10*3/ uL 4.3-11.0 Blood erythrocytes automated count (number/volume) 3.06 10*6 /uL 4.35-5.85 Venous blood hemoglobin measurement (mass/volume) 10.2 g/dL 13.3-17.7 Blood hematocrit (volume fraction) 29 % 40-54 Automated erythrocyte mean corpuscular volume 95 [foz_us] 80-99 Automated erythrocyte mean corpuscular hemoglobin (mass per erythrocyte) 33 pg 25-34 Automated erythrocyte mean corpuscular hemoglobin concentration measurement ( mass/volume) 35 g/dL 32-36 Automated erythrocyte distribution width ratio 14.4 % 10.0-14.5 Automated blood platelet count (count/volume) 125 10*3/uL 130-400 Automated blood platelet mean volume measurement 9.4 [foz_us ] 7.4-10.4 Automated blood neutrophils/100 leukocytes 92 % 42-75 Automated blood lymphocytes/100 leukocytes 5 % 12-44 Blood monocytes/100 leukocytes 3 % 0-12 Automated blood eosinophils/100 leukocytes 0 % 0-10 Automated blood basophils/100 leukocytes 0 % 0-10 Blood neutrophils automated count (number/volume) 3.2 10*3 1.8-7.8 Blood lymphocytes automated count (number/volume) 0.2 10*3 1.0-4.0 Blood monocytes automated count (number/volume) 0.1 10*3 0.0-1.0 Automated eosinophil count 0.0 10*3/uL 0.0-0.3 Automated blood basophil count (count/volume) 0.0 10*3/uL 0.0-0.1 Comprehensive metabolic panel - 12/04/16 03:55 Serum or plasma sodium measurement (moles/volume) 136 mmol/ L 135-145 Serum or plasma potassium measurement (moles/volume) 4.0 mmol/L 3.6-5.0 Serum or plasma chloride measurement (moles/volume) 102 mmol /L 98-107 Carbon dioxide 21 mmol/L 21-32 Serum or plasma anion gap determination (moles/volume) 13 mmol/L 5-14 Serum or plasma urea nitrogen measurement (mass/volume) 18 mg/dL 7-18 Serum or plasma creatinine measurement (mass/volume) 0.97 mg /dL 0.60-1.30 Serum or plasma urea nitrogen/creatinine mass ratio 19 NRG Serum or plasma creatinine measurement with calculation of estimated glomerular filtration rate > NRG Serum or plasma glucose measurement (mass/volume) 295 mg/dL 70-105 Serum or plasma calcium measurement (mass/volume) 8.4 mg/dL 8.5-10.1 Serum or plasma total bilirubin measurement (mass/volume) 0.7 mg/dL 0.1-1.0 Serum or plasma alkaline phosphatase measurement (enzymatic activity/volume) 60 U/L 40-136 Serum or plasma aspartate aminotransferase measurement (enzymatic activity/ volume) 24 U/L 5-34 Serum or plasma alanine aminotransferase measurement (enzymatic activity/volume ) 37 U/L 0-55 Serum or plasma protein measurement (mass/volume) 5.5 g/dL 6.4-8.2 Serum or plasma albumin measurement (mass/volume) 3.6 g/dL 3.2-4.5 Bacterial blood culture - 12/07/16 14:35 FREE TEXT EXTERNAL SEE COMMENTS FOR RML SENSITIVITY NRG QUANTITY OF GROWTH Isolated NRG Bacterial blood culture [id number] NRG Complete blood count (CBC) with automated white blood cell (WBC) differential - 12/07/16 14:36 Blood leukocytes automated count (number/volume) 8.7 10*3/ uL 4.3-11.0 Blood erythrocytes automated count (number/volume) 3.13 10*6 /uL 4.35-5.85 Venous blood hemoglobin measurement (mass/volume) 10.4 g/dL 13.3-17.7 Blood hematocrit (volume fraction) 30 % 40-54 Automated erythrocyte mean corpuscular volume 96 [foz_us] 80-99 Automated erythrocyte mean corpuscular hemoglobin (mass per erythrocyte) 33 pg 25-34 Automated erythrocyte mean corpuscular hemoglobin concentration measurement ( mass/volume) 35 g/dL 32-36 Automated erythrocyte distribution width ratio 14.8 % 10.0-14.5 Automated blood platelet count (count/volume) 149 10*3/uL 130-400 Automated blood platelet mean volume measurement 9.6 [foz_us ] 7.4-10.4 Automated blood neutrophils/100 leukocytes 93 % 42-75 Automated blood lymphocytes/100 leukocytes 3 % 12-44 Blood monocytes/100 leukocytes 4 % 0-12 Automated blood eosinophils/100 leukocytes 0 % 0-10 Automated blood basophils/100 leukocytes 0 % 0-10 Blood neutrophils automated count (number/volume) 8.1 10*3 1.8-7.8 Blood lymphocytes automated count (number/volume) 0.3 10*3 1.0-4.0 Blood monocytes automated count (number/volume) 0.4 10*3 0.0-1.0 Automated eosinophil count 0.0 10*3/uL 0.0-0.3 Automated blood basophil count (count/volume) 0.0 10*3/uL 0.0-0.1 Blood lactic acid measurement (moles/volume) - 12/07/16 14:36 Blood lactic acid measurement (moles/volume) 4.2 mmol/L 0.5-2.0 Comprehensive metabolic panel - 12/07/16 14:36 Serum or plasma sodium measurement (moles/volume) 132 mmol/ L 135-145 Serum or plasma potassium measurement (moles/volume) 3.8 mmol/L 3.6-5.0 Serum or plasma chloride measurement (moles/volume) 96 mmol/ L 98-107 Carbon dioxide 23 mmol/L 21-32 Serum or plasma anion gap determination (moles/volume) 13 mmol/L 5-14 Serum or plasma urea nitrogen measurement (mass/volume) 18 mg/dL 7-18 Serum or plasma creatinine measurement (mass/volume) 1.11 mg /dL 0.60-1.30 Serum or plasma urea nitrogen/creatinine mass ratio 16 NRG Serum or plasma creatinine measurement with calculation of estimated glomerular filtration rate > NRG Serum or plasma glucose measurement (mass/volume) 429 mg/dL 70-105 Serum or plasma calcium measurement (mass/volume) 8.2 mg/dL 8.5-10.1 Serum or plasma total bilirubin measurement (mass/volume) 1.3 mg/dL 0.1-1.0 Serum or plasma alkaline phosphatase measurement (enzymatic activity/volume) 59 U/L 40-136 Serum or plasma aspartate aminotransferase measurement (enzymatic activity/ volume) 13 U/L 5-34 Serum or plasma alanine aminotransferase measurement (enzymatic activity/volume ) 30 U/L 0-55 Serum or plasma protein measurement (mass/volume) 5.1 g/dL 6.4-8.2 Serum or plasma albumin measurement (mass/volume) 3.3 g/dL 3.2-4.5 Blood manual differential performed detection - 12/07/16 14:36 Blood monocytes/100 leukocytes 3 % NRG Manual blood segmented neutrophils/100 leukocytes 90 % NRG Blood band neutrophils/100 leukocytes 3 % NRG Manual blood lymphocytes/100 leukocytes 4 % NRG Blood erythrocyte morphology finding identification NORMAL NRG Serum or plasma lithium measurement (moles/volume) - 12/07/16 14:36 BNP level 383.0 pg/mL <100.0 Serum or plasma troponin i.cardiac measurement (mass/volume) - 12/07/16 14:36 Serum or plasma troponin i.cardiac measurement (mass/volume) < ng/mL <0.30 Bacterial blood culture - 12/07/16 14:36 Bacterial blood culture NG NRG Complete urinalysis with reflex to culture - 12/07/16 16:20 Urine color determination YELLOW NRG Urine clarity determination CLEAR NRG Urine pH measurement by test strip 6.5 5 -9 Specific gravity of urine by test strip 1.010 1.016-1.022 Urine protein assay by test strip, semi-quantitative 2+ NEGATIVE Urine glucose detection by automated test strip 4+ NEGATIVE Erythrocytes detection in urine sediment by light microscopy 2+ NEGATIVE Urine ketones detection by automated test strip NEGATIVE NEGATIVE Urine nitrite detection by test strip NEGATIVE NEGATIVE Urine total bilirubin detection by test strip NEGATIVE NEGATIVE Urine urobilinogen measurement by automated test strip (mass/volume) NORMAL NORMAL Urine leukocyte esterase detection by dipstick NEGATIVE NEGATIVE Automated urine sediment erythrocyte count by microscopy (number/high power field) NONE NRG Automated urine sediment leukocyte count by microscopy (number/high power field ) NONE NRG Bacteria detection in urine sediment by light microscopy NEGATIVE NRG Squamous epithelial cells detection in urine sediment by light microscopy 2-5 NRG Crystals detection in urine sediment by light microscopy NONE NRG Casts detection in urine sediment by light microscopy NONE NRG Mucus detection in urine sediment by light microscopy NEGATIVE NRG Complete urinalysis with reflex to culture NO NRG C DIFFICILE AG + TOXIN A/B. - 12/07/16 21:15 RESULTS NEGATIVE FOR ANTIGEN AND TOXIN A/B NRG Capillary blood glucose measurement by glucometer (mass/volume) - 12/07/16 21: 24 Capillary blood glucose measurement by glucometer (mass/volume) 347 mg/dL 70-110 Serum or plasma lactate measurement (moles/volume) - 12/07/16 22:05 Serum or plasma lactate measurement (moles/volume) 1.6 mmol/ L 0.5-2.0 Complete blood count (CBC) with automated white blood cell (WBC) differential - 12/08/16 05:30 Blood leukocytes automated count (number/volume) 6.4 10*3/ uL 4.3-11.0 Blood erythrocytes automated count (number/volume) 2.92 10*6 /uL 4.35-5.85 Venous blood hemoglobin measurement (mass/volume) 10.0 g/dL 13.3-17.7 Blood hematocrit (volume fraction) 28 % 40-54 Automated erythrocyte mean corpuscular volume 96 [foz_us] 80-99 Automated erythrocyte mean corpuscular hemoglobin (mass per erythrocyte) 34 pg 25-34 Automated erythrocyte mean corpuscular hemoglobin concentration measurement ( mass/volume) 36 g/dL 32-36 Automated erythrocyte distribution width ratio 14.4 % 10.0-14.5 Automated blood platelet count (count/volume) 119 10*3/uL 130-400 Automated blood platelet mean volume measurement 9.9 [foz_us ] 7.4-10.4 Automated blood neutrophils/100 leukocytes 93 % 42-75 Automated blood lymphocytes/100 leukocytes 3 % 12-44 Blood monocytes/100 leukocytes 4 % 0-12 Automated blood eosinophils/100 leukocytes 0 % 0-10 Automated blood basophils/100 leukocytes 0 % 0-10 Blood neutrophils automated count (number/volume) 6.0 10*3 1.8-7.8 Blood lymphocytes automated count (number/volume) 0.2 10*3 1.0-4.0 Blood monocytes automated count (number/volume) 0.3 10*3 0.0-1.0 Automated eosinophil count 0.0 10*3/uL 0.0-0.3 Automated blood basophil count (count/volume) 0.0 10*3/uL 0.0-0.1 Comprehensive metabolic panel - 12/08/16 05:30 Serum or plasma sodium measurement (moles/volume) 135 mmol/ L 135-145 Serum or plasma potassium measurement (moles/volume) 4.3 mmol/L 3.6-5.0 Serum or plasma chloride measurement (moles/volume) 101 mmol /L 98-107 Carbon dioxide 25 mmol/L 21-32 Serum or plasma anion gap determination (moles/volume) 9 mmol/L 5-14 Serum or plasma urea nitrogen measurement (mass/volume) 19 mg/dL 7-18 Serum or plasma creatinine measurement (mass/volume) 0.90 mg /dL 0.60-1.30 Serum or plasma urea nitrogen/creatinine mass ratio 21 NRG Serum or plasma creatinine measurement with calculation of estimated glomerular filtration rate > NRG Serum or plasma glucose measurement (mass/volume) 365 mg/dL 70-105 Serum or plasma calcium measurement (mass/volume) 8.3 mg/dL 8.5-10.1 Serum or plasma total bilirubin measurement (mass/volume) 1.1 mg/dL 0.1-1.0 Serum or plasma alkaline phosphatase measurement (enzymatic activity/volume) 52 U/L 40-136 Serum or plasma aspartate aminotransferase measurement (enzymatic activity/ volume) 14 U/L 5-34 Serum or plasma alanine aminotransferase measurement (enzymatic activity/volume ) 28 U/L 0-55 Serum or plasma protein measurement (mass/volume) 4.9 g/dL 6.4-8.2 Serum or plasma albumin measurement (mass/volume) 2.8 g/dL 3.2-4.5 Capillary blood glucose measurement by glucometer (mass/volume) - 12/08/16 05: 41 Capillary blood glucose measurement by glucometer (mass/volume) 380 mg/dL 70-110 Capillary blood glucose measurement by glucometer (mass/volume) - 12/08/16 10: 51 Capillary blood glucose measurement by glucometer (mass/volume) 397 mg/dL 70-110 Capillary blood glucose measurement by glucometer (mass/volume) - 12/08/16 12: 07 Capillary blood glucose measurement by glucometer (mass/volume) 365 mg/dL 70-110 Capillary blood glucose measurement by glucometer (mass/volume) - 12/08/16 16: 16 Capillary blood glucose measurement by glucometer (mass/volume) 226 mg/dL 70-110 Vancomycin trough - 12/08/16 17:15 Vancomycin trough 12.1 ug/mL 10.0-20.0 Capillary blood glucose measurement by glucometer (mass/volume) - 12/08/16 18: 33 Capillary blood glucose measurement by glucometer (mass/volume) 78 mg/dL 70-110 Capillary blood glucose measurement by glucometer (mass/volume) - 12/08/16 20: 35 Capillary blood glucose measurement by glucometer (mass/volume) 114 mg/dL 70-110 Complete blood count (CBC) with automated white blood cell (WBC) differential - 12/09/16 05:38 Blood leukocytes automated count (number/volume) 8.7 10*3/ uL 4.3-11.0 Blood erythrocytes automated count (number/volume) 2.91 10*6 /uL 4.35-5.85 Venous blood hemoglobin measurement (mass/volume) 9.6 g/dL 13.3-17.7 Blood hematocrit (volume fraction) 28 % 40-54 Automated erythrocyte mean corpuscular volume 95 [foz_us] 80-99 Automated erythrocyte mean corpuscular hemoglobin (mass per erythrocyte) 33 pg 25-34 Automated erythrocyte mean corpuscular hemoglobin concentration measurement ( mass/volume) 35 g/dL 32-36 Automated erythrocyte distribution width ratio 14.5 % 10.0-14.5 Automated blood platelet count (count/volume) 167 10*3/uL 130-400 Automated blood platelet mean volume measurement 9.8 [foz_us ] 7.4-10.4 Automated blood neutrophils/100 leukocytes 93 % 42-75 Automated blood lymphocytes/100 leukocytes 3 % 12-44 Blood monocytes/100 leukocytes 4 % 0-12 Automated blood eosinophils/100 leukocytes 0 % 0-10 Automated blood basophils/100 leukocytes 0 % 0-10 Blood neutrophils automated count (number/volume) 8.1 10*3 1.8-7.8 Blood lymphocytes automated count (number/volume) 0.2 10*3 1.0-4.0 Blood monocytes automated count (number/volume) 0.4 10*3 0.0-1.0 Automated eosinophil count 0.0 10*3/uL 0.0-0.3 Automated blood basophil count (count/volume) 0.0 10*3/uL 0.0-0.1 Comprehensive metabolic panel - 12/09/16 05:38 Serum or plasma sodium measurement (moles/volume) 138 mmol/ L 135-145 Serum or plasma potassium measurement (moles/volume) 3.4 mmol/L 3.6-5.0 Serum or plasma chloride measurement (moles/volume) 104 mmol /L 98-107 Carbon dioxide 22 mmol/L 21-32 Serum or plasma anion gap determination (moles/volume) 12 mmol/L 5-14 Serum or plasma urea nitrogen measurement (mass/volume) 25 mg/dL 7-18 Serum or plasma creatinine measurement (mass/volume) 0.82 mg /dL 0.60-1.30 Serum or plasma urea nitrogen/creatinine mass ratio 30 NRG Serum or plasma creatinine measurement with calculation of estimated glomerular filtration rate > NRG Serum or plasma glucose measurement (mass/volume) 202 mg/dL 70-105 Serum or plasma calcium measurement (mass/volume) 8.2 mg/dL 8.5-10.1 Serum or plasma total bilirubin measurement (mass/volume) 0.6 mg/dL 0.1-1.0 Serum or plasma alkaline phosphatase measurement (enzymatic activity/volume) 47 U/L 40-136 Serum or plasma aspartate aminotransferase measurement (enzymatic activity/ volume) 22 U/L 5-34 Serum or plasma alanine aminotransferase measurement (enzymatic activity/volume ) 33 U/L 0-55 Serum or plasma protein measurement (mass/volume) 4.9 g/dL 6.4-8.2 Serum or plasma albumin measurement (mass/volume) 2.8 g/dL 3.2-4.5 Capillary blood glucose measurement by glucometer (mass/volume) - 12/09/16 08: 36 Capillary blood glucose measurement by glucometer (mass/volume) 217 mg/dL 70-110 Capillary blood glucose measurement by glucometer (mass/volume) - 12/09/16 11: 28 Capillary blood glucose measurement by glucometer (mass/volume) 282 mg/dL 70-110 Capillary blood glucose measurement by glucometer (mass/volume) - 12/09/16 16: 39 Capillary blood glucose measurement by glucometer (mass/volume) 365 mg/dL 70-110 Capillary blood glucose measurement by glucometer (mass/volume) - 12/09/16 20: 26 Capillary blood glucose measurement by glucometer (mass/volume) 438 mg/dL 70-110 Capillary blood glucose measurement by glucometer (mass/volume) - 12/10/16 05: 47 Capillary blood glucose measurement by glucometer (mass/volume) 279 mg/dL 70-110 Complete blood count (CBC) with automated white blood cell (WBC) differential - 12/10/16 05:50 Blood leukocytes automated count (number/volume) 7.3 10*3/ uL 4.3-11.0 Blood erythrocytes automated count (number/volume) 3.00 10*6 /uL 4.35-5.85 Venous blood hemoglobin measurement (mass/volume) 9.8 g/dL 13.3-17.7 Blood hematocrit (volume fraction) 29 % 40-54 Automated erythrocyte mean corpuscular volume 95 [foz_us] 80-99 Automated erythrocyte mean corpuscular hemoglobin (mass per erythrocyte) 33 pg 25-34 Automated erythrocyte mean corpuscular hemoglobin concentration measurement ( mass/volume) 34 g/dL 32-36 Automated erythrocyte distribution width ratio 14.5 % 10.0-14.5 Automated blood platelet count (count/volume) 205 10*3/uL 130-400 Automated blood platelet mean volume measurement 9.7 [foz_us ] 7.4-10.4 Automated blood neutrophils/100 leukocytes 89 % 42-75 Automated blood lymphocytes/100 leukocytes 4 % 12-44 Blood monocytes/100 leukocytes 7 % 0-12 Automated blood eosinophils/100 leukocytes 0 % 0-10 Automated blood basophils/100 leukocytes 0 % 0-10 Blood neutrophils automated count (number/volume) 6.5 10*3 1.8-7.8 Blood lymphocytes automated count (number/volume) 0.3 10*3 1.0-4.0 Blood monocytes automated count (number/volume) 0.5 10*3 0.0-1.0 Automated eosinophil count 0.0 10*3/uL 0.0-0.3 Automated blood basophil count (count/volume) 0.0 10*3/uL 0.0-0.1 Comprehensive metabolic panel - 12/10/16 05:50 Serum or plasma sodium measurement (moles/volume) 138 mmol/ L 135-145 Serum or plasma potassium measurement (moles/volume) 3.9 mmol/L 3.6-5.0 Serum or plasma chloride measurement (moles/volume) 106 mmol /L 98-107 Carbon dioxide 23 mmol/L 21-32 Serum or plasma anion gap determination (moles/volume) 9 mmol/L 5-14 Serum or plasma urea nitrogen measurement (mass/volume) 25 mg/dL 7-18 Serum or plasma creatinine measurement (mass/volume) 0.87 mg /dL 0.60-1.30 Serum or plasma urea nitrogen/creatinine mass ratio 29 NRG Serum or plasma creatinine measurement with calculation of estimated glomerular filtration rate > NRG Serum or plasma glucose measurement (mass/volume) 282 mg/dL 70-105 Serum or plasma calcium measurement (mass/volume) 8.3 mg/dL 8.5-10.1 Serum or plasma total bilirubin measurement (mass/volume) 0.4 mg/dL 0.1-1.0 Serum or plasma alkaline phosphatase measurement (enzymatic activity/volume) 56 U/L 40-136 Serum or plasma aspartate aminotransferase measurement (enzymatic activity/ volume) 15 U/L 5-34 Serum or plasma alanine aminotransferase measurement (enzymatic activity/volume ) 38 U/L 0-55 Serum or plasma protein measurement (mass/volume) 4.9 g/dL 6.4-8.2 Serum or plasma albumin measurement (mass/volume) 2.7 g/dL 3.2-4.5 Capillary blood glucose measurement by glucometer (mass/volume) - 12/10/16 11: 10 Capillary blood glucose measurement by glucometer (mass/volume) 318 mg/dL 70-110 Complete blood count (CBC) with automated white blood cell (WBC) differential - 04/16/17 12:55 Blood leukocytes automated count (number/volume) 9.8 10*3/ uL 4.3-11.0 Blood erythrocytes automated count (number/volume) 3.37 10*6 /uL 4.35-5.85 Venous blood hemoglobin measurement (mass/volume) 11.4 g/dL 13.3-17.7 Blood hematocrit (volume fraction) 33 % 40-54 Automated erythrocyte mean corpuscular volume 97 [foz_us] 80-99 Automated erythrocyte mean corpuscular hemoglobin (mass per erythrocyte) 34 pg 25-34 Automated erythrocyte mean corpuscular hemoglobin concentration measurement ( mass/volume) 35 g/dL 32-36 Automated erythrocyte distribution width ratio 15.3 % 10.0-14.5 Automated blood platelet count (count/volume) 140 10*3/uL 130-400 Automated blood platelet mean volume measurement 9.3 [foz_us ] 7.4-10.4 Automated blood neutrophils/100 leukocytes 78 % 42-75 Automated blood lymphocytes/100 leukocytes 6 % 12-44 Blood monocytes/100 leukocytes 15 % 0-12 Automated blood eosinophils/100 leukocytes 1 % 0-10 Automated blood basophils/100 leukocytes 0 % 0-10 Blood neutrophils automated count (number/volume) 7.6 10*3 1.8-7.8 Blood lymphocytes automated count (number/volume) 0.6 10*3 1.0-4.0 Blood monocytes automated count (number/volume) 1.5 10*3 0.0-1.0 Automated eosinophil count 0.1 10*3/uL 0.0-0.3 Automated blood basophil count (count/volume) 0.0 10*3/uL 0.0-0.1 Encounters ACCT No. Visit Date/Time Discharge Status Pt. Type Provider Facility Loc./Unit Complaint [id number] 06/26/2014 15:09:36 06/26/2014 23: 59:59 [facility] Outpatient Darius Mcmillan
[2017-04-16 14:18] VITALS: BP 136/62
--- NOTE | 2017-04-16 14:37 | Diagnostic Imaging Report ---
INDICATION: Productive cough and dehydration. PA and lateral chest obtained at 1:17 p.m. and compared to 12/07/16. FINDINGS: Heart and mediastinal silhouette appear unremarkable. Patient has had previous sternotomy. Port-A-Cath is unchanged. There are COPD changes with hyperinflation. There is no focal infiltrate or pneumothorax or pleural fluid. IMPRESSION: COPD changes. No focal infiltrate or pneumothorax or pleural fluid. Evidence of previous sternotomy. Dictated by: Dictated on workstation # [id number]
[2017-04-16] MEDS ORDERED: PIPERACILLIN SODIUM/TAZOBACTAM 4.5 GM in NS (IVPB) 100 ML IV NR (14:44)
[2017-04-16] MEDS ORDERED: RT-ALBUTEROL/IPRATROPIUM 3 ML (DUONEB) VIAL INH SCH (14:45)
[2017-04-16] MEDS ORDERED: guaiFENesin/CODEINE (ROBITUSSIN AC) 10ML UDC PO PRN (14:45)
[2017-04-16] MEDS ORDERED: ONDANSETRON 4 MG/2 ML (SDV) Z0FRAN IVP PRN (14:45)
[2017-04-16] MEDS ORDERED: ACETAMINOPHEN 500 MG TAB (TYLENOL) PO PRN (14:45)
--- NOTE | 2017-04-16 14:46 | History & Physical-Hospitalist ---
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 Observation orders were placed and noted fever of 100.2. Pneumonia protocol has been followed in case dehydration is precluding infiltrate appearance on CXR. 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 Currently he reports a cough that is very productive of yellow sputum raising my suspicion for infection of lungs so abx will be started. Source: patient Exam Limitations: no limitations Date Seen 04/16/17 Time Seen by Provider: 14:00 Attending Physician Rosalinda Watts DO PCP Rosalinda Watts DO Referring Physician Date of Admission Apr 16, 2017 at 12:37 Home Medications & Allergies Home Medications Reviewed patient Home Medication Reconciliation Form Allergies Allergies Coded Allergies No Known Drug Allergies (Uoiyuruo15/3/08) Past Kheknto-Ztpefs-Bpmwdr Hx Patient Social History Marrital Status: Employed/Student: employed ([employer] second time worker independent practice) Smoking Status: Former Smoker Former smoker/When Quit: Jul 26, 1985 Recent Hopitalizations: No Immunizations Up To Date Tetanus Booster (TDap): Less than 5yrs Date of Pneumonia Vaccine: Apr 18, 2013 Date of Influenza Vaccine: Jul 29, 2016 Seasonal Allergies Seasonal Allergies: No Surgeries HX Surgeries: Yes (TRIPLE BYPASS, HEART ABLATION, HERNIA REPAIR 05/01 strangulated, LYMPHECTOMY) Surgeries: Abdominal, CABG, Gallbladder, Open Heart Surgery Respiratory Hx Respiratory Disorders: Yes (COPD mild) Respiratory Disorders: COPD, Pneumonia Cardiovascular Hx Cardiovascular Disorders: Yes (CABG, ABLATION, TRPL BYPASS) Cardiac Disorders: Atrial Fibrillation, Coronary Artery Disease, Heart Attack, High Cholesterol, Hypertension Neurological Hx Neurological Disorders: Yes Neurological Disorders: Neuropathy Reproductive System Hx Reproductive Disorders: No Sexually Transmitted Disease: No HIV/AIDS: No Genitourinary Hx Genitourinary Disorders: Yes Genitourinary Disorders: Renal Failure Gastrointestinal Hx Gastrointestinal Disorders: Yes Gastrointestinal Disorders: Gastroesophageal Reflux, Gastrointestinal Bleed Musculoskeletal Hx Musculoskeletal Disorders: Yes Musculoskeletal Disorders: Arthritis Endocrine Hx Endocrine Disorders: Yes Endocrine Disorders: Diabetes, Insulin dep HEENT HX ENT Disorders: No HEENT Disorders: Cataract Cancer Hx Cancer: Yes (ALL RECEIVED CHEMO AT [facility] -3 WEEKS AGO LAST ONE) Cancer: Leukemia, Skin Psychosocial Hx Psychiatric Problems: No Integumentary HX Skin/Integumentary Disorder: Yes (SKIN CANCER REMOVED) Blood Transfusions Hx Blood Disorders: Yes (LEUKEMIA) Adverse Reaction to a Blood Tr: No Family Medical History Significant Family History: Heart Disease, CAD Over 55 Years Old, Diabetes, Hypertension, Vascular Disease Family Hx: Cardiovascular disease G8 BROTHER Diabetes mellitus 19 MOTHER G8 BROTHER Hypertension 19 MOTHER Review of Systems Constitutional: see HPI, dizziness, malaise, weakness, weight loss EENTM: no symptoms reported Respiratory: cough, wheezing Cardiovascular: no symptoms reported Gastrointestinal: loss of appetite, nausea, vomiting Genitourinary: decreased output Musculoskeletal: no symptoms reported Skin: no symptoms reported Psychiatric/Neurological: No Symptoms Reported All Other Systems Reviewed Negative Unless Noted: Yes Physical Exam Physical Exam Vital Signs Vital Sign - Last 12Hours 04/16/17 14:18 Temp 100.2 Pulse 89 Resp 20 B/P (MAP) 136/62 Pulse Ox 96 O2 Delivery Room Air Capillary Refill : General Appearance: No Apparent Distress, WD/WN, Chronically ill Eyes: Bilateral Eye Normal Inspection, Bilateral Eye PERRL HEENT: PERRL/EOMI, Normal ENT Inspection, Pharynx Normal Neck: Full Range of Motion, Normal Inspection, Non Tender, Supple, Carotid Bruit Respiratory: Chest Non Tender, Normal Breath Sounds, No Accessory Muscle Use, No Respiratory Distress, Decreased Breath Sounds, Wheezing (subtle noted LLL) Cardiovascular: Regular Rate, Rhythm, No Edema, No Gallop, No JVD, No Murmur, Normal Peripheral Pulses Gastrointestinal: Normal Bowel Sounds, No Organomegaly, No Pulsatile Mass, Non Tender, Soft Back: Normal Inspection, No CVA Tenderness, No Vertebral Tenderness Extremity: Normal Capillary Refill, Normal Inspection, Normal Range of Motion, Non Tender, No Calf Tenderness, No Pedal Edema Neurologic/Psychiatric: Alert, Oriented x3, No Motor/Sensory Deficits, Normal Mood/Affect Skin: Normal Color, Warm/Dry Lymphatic: No Adenopathy Results Results/Procedures Lab Laboratory Tests 04/16/17 12:55 Assessment/Plan Admission Diagnosis Assessment: Fever w/N/V and crackles on lung exam CXR pending at time of this note Previous bilateral pneumonia 12/04 w/influenza CAD previous bypass History of atrial flutter status post ablation History of duodenal ulcer bleed Diabetes mellitus insulin requiring Chronic anemia GERD History of C. difficile colitis life threatening requiring vancomycin by mouth 2014 Neuropathy due to diabetes Hypertension Hyperlipidemia COPD with exacerbation requiring steroids 12/04 Assessment and Plan Plan: Pneumonia protocol Abx IVF 100cc/hr gentle due to volume overload in the past Hold chemotherapy Accuchecks Check lactic acid and BCx Nebs O2 SCD's Anti-tussives APAP ROSALINDA WATTS DO Apr 16, 2017 14:46
[2017-04-16] MEDS ORDERED: MAGNESIUM 1 GM/100 ML IVPB 100 ML IV NR (15:00)
[2017-04-16] MEDS: POTASSIUM CL 10MEQ/50ML IVPB 50 ML IV SCH ×4 (15:22→18:45)
[2017-04-16] MEDS ORDERED: ACYC200C PO (15:31)
[2017-04-16] MEDS ORDERED: ATOR10TA66 PO (15:31)
[2017-04-16] MEDS ORDERED: PATIENT MAY USE OWN MEDS, ALL MC SCH (15:45)
[2017-04-16] MEDS ORDERED: ONDANSETRON 4 MG (ZOFRAN) ORAL DISSOLVE TAB PO PRN (15:45)
[2017-04-16 15:50] VITALS: BP 119/59
[2017-04-16] MEDS: POTASSIUM CHLORIDE INJ 10 MEQ in NS IV 1000 ML 1,000 ML IV SCH (15:57)
[2017-04-16] MEDS: inSUlin ASPART (NovoLOG) 1 UNIT/0.01 ML (CHARGE PER UNIT) SC SCH ×2 (16:00→22:02)
[2017-04-16] MEDS ORDERED: RT-ALBUTEROL SULF 2.5 MG/3 ML PRE-MIX VIAL IH PRN (17:15)
[2017-04-16] MEDS: methylPREDNISolone 40 MG/ML (Solu-MEDROL) VIAL IV SCH (17:33)
[2017-04-16 18:03] LABS: BILIRUBIN,URINE NEGATIVE (NEGATIVE); KETONES,URINE 1+ (NEGATIVE); LEUKOCYTE ESTERASE ,URINE NEGATIVE (NEGATIVE); NITRITE,URINE NEGATIVE (NEGATIVE); PH,URINE 7 (5-9); PROTEIN,URINE 1+ (NEGATIVE); UROBILINOGEN,URINE NORMAL (NORMAL)
[2017-04-16 18:19] LABS: WBC,URINE RARE /HPF
[2017-04-16] MEDS: Omeprazole 40 MG CAPSULE PO SCH (18:49)
[2017-04-16] MEDS: INSULIN LISPRO SQ SCH (18:55)
[2017-04-16 19:47] VITALS: BP 101/57
[2017-04-16] MEDS: RT-ALBUTEROL SULF 2.5 MG/3 ML PRE-MIX VIAL IH SCH (20:04)
[2017-04-16] MEDS ORDERED: ATORVASTATIN 10 MG (LIPITOR) TABLET PO SCH (21:00)
[2017-04-16] MEDS ORDERED: BENZONATATE 100 MG (TESSALON) CAPSULE PO SCH (21:00)
[2017-04-16] MEDS ORDERED: INSULIN GLARGINE SQ SCH (21:00)
[2017-04-16] MEDS: SUCRALFATE 1 GM (CARAFATE) TAB PO SCH (21:47)
[2017-04-16] MEDS: ACYCLOVIR 200 MG CAP (ZOVIRAX) PO SCH (21:49)
[2017-04-16] MEDS: BENZONATATE 100 MG (TESSALON) CAPSULE PO SCH (21:49)
[2017-04-16 21:51] VITALS: BP 126/66
[2017-04-16] MEDS: CARVEDILOL 3.125 MG (COREG) TABLET PO SCH (21:54)
[2017-04-16] MEDS: PIPERACILLIN SODIUM/TAZOBACTAM 4.5 GM in NS (IVPB) 100 ML IV SCH (22:05)
[2017-04-17] VITALS: BP 105/54
[2017-04-17] MEDS: methylPREDNISolone 40 MG/ML (Solu-MEDROL) VIAL IV SCH ×3 (00:39→13:22)
[2017-04-17] MEDS: POTASSIUM CHLORIDE INJ 10 MEQ in NS IV 1000 ML 1,000 ML IV SCH ×2 (03:14→06:05)
[2017-04-17 04:15] VITALS: BP 110/64
[2017-04-17] MEDS: PIPERACILLIN SODIUM/TAZOBACTAM 4.5 GM in NS (IVPB) 100 ML IV SCH ×2 (06:04→13:22)
[2017-04-17] MEDS: SUCRALFATE 1 GM (CARAFATE) TAB PO SCH ×2 (06:12→10:51)
[2017-04-17] MEDS: Omeprazole 40 MG CAPSULE PO SCH (06:13)
[2017-04-17 06:20] LABS: BASOPHILS % (AUTO) 0 % (0-10); EOSINOPHILS % (AUTO) 0 % (0-10); LYMPHOCYTES # (AUTO) 0.3 X 10^3 (1.0-4.0); LYMPHOCYTES % (AUTO) 3 % (12-44); MEAN CORPUSCULAR HEMOGLOBIN 33 PG (25-34); MEAN CORPUSCULAR HGB CONC 34 G/DL (32-36); MEAN CORPUSCULAR VOLUME 97 FL (80-99); MEAN PLATELET VOLUME 9.7 FL (7.4-10.4); MONOCYTES # (AUTO) 0.3 X 10^3 (0.0-1.0); MONOCYTES % (AUTO) 3 % (0-12); NEUTROPHILS # (AUTO) 8.4 X 10^3 (1.8-7.8); NEUTROPHILS % (AUTO) 94 % (42-75); PLATELET COUNT 132 10^3/uL (130-400); RED BLOOD COUNT 3.44 10^6/uL (4.35-5.85); RED CELL DISTRIBUTION WIDTH 15.2 % (10.0-14.5)
[2017-04-17] MEDS: RT-ALBUTEROL SULF 2.5 MG/3 ML PRE-MIX VIAL IH SCH ×2 (06:24→10:40)
[2017-04-17 06:31] LABS: ALANINE AMINOTRANSFERASE 24 U/L (0-55); ALBUMIN 3.6 GM/DL (3.2-4.5); ANION GAP 13 MMOL/L (5-14); ASPARTATE AMINO TRANSFERASE 16 U/L (5-34); BILIRUBIN,TOTAL 1.2 MG/DL (0.1-1.0); BLOOD UREA NITROGEN 16 MG/DL (7-18); BUN/CREATININE RATIO 17; CALCIUM 8.8 MG/DL (8.5-10.1); CARBON DIOXIDE 21 MMOL/L (21-32); CHLORIDE 103 MMOL/L (98-107); CREATININE SERUM 0.94 MG/DL (0.60-1.30); GFR ESTIMATED > 60; GLUCOSE 310 MG/DL (70-105); POTASSIUM 4.3 MMOL/L (3.6-5.0); SODIUM 137 MMOL/L (135-145); TOTAL PROTEIN 5.9 GM/DL (6.4-8.2)
[2017-04-17] MEDS: INSULIN LISPRO SQ SCH ×2 (06:40→13:22)
[2017-04-17] MEDS: inSUlin ASPART (NovoLOG) 1 UNIT/0.01 ML (CHARGE PER UNIT) SC SCH ×2 (06:52→10:52)
[2017-04-17] MEDS ORDERED: inSUlin ASPART (NovoLOG) 1 UNIT/0.01 ML (CHARGE PER UNIT) SC ONE (07:00)
[2017-04-17] MEDS ORDERED: UMECLIDINIUM BROMIDE (INCRUSE ELLIPTA) 7'S IH SCH (08:00)
[2017-04-17 08:30] VITALS: BP 127/68
[2017-04-17] MEDS ORDERED: SERTRALINE 100 MG (ZOLOFT) TAB PO SCH (09:00)
[2017-04-17] MEDS ORDERED: ASPIRIN E.C. 81 MG (ECOTRIN) TAB PO SCH (09:00)
[2017-04-17] MEDS: CARVEDILOL 3.125 MG (COREG) TABLET PO SCH (09:41)
[2017-04-17] MEDS: ACYCLOVIR 200 MG CAP (ZOVIRAX) PO SCH (09:41)
[2017-04-17] MEDS: BENZONATATE 100 MG (TESSALON) CAPSULE PO SCH ×2 (09:42→13:22)
--- NOTE | 2017-04-17 09:51 | Diagnostic Imaging Report ---
INDICATION: Shortness of breath, COPD. Compared 04/16 FINDINGS: There is no focal infiltrate, effusion, pneumothorax or failure pattern. No acute appearing pathology. Post interventional changes chronic. Clavicular deformity and support apparatus stable. IMPRESSION: Stable chest Dictated by: Dictated on workstation # [id number]
[2017-04-17] MEDS ORDERED: CEFD300C3 PO ×2 (12:12→12:42)
[2017-04-17] MEDS ORDERED: PRED10TA22 PO ×2 (12:13→12:42)
--- NOTE | 2017-04-17 12:28 | Discharge Summary-Hospitalist ---
Diagnosis/Chief Complaint Date of Admission Apr 16, 2017 at 12:37 Date of Discharge Discharge Date: Apr 17, 2017 Admission Diagnosis Assessment: Fever w/N/V and crackles on lung exam CXR pending at time of this note Previous bilateral pneumonia 12/04 w/influenza CAD previous bypass History of atrial flutter status post ablation History of duodenal ulcer bleed Diabetes mellitus insulin requiring Chronic anemia GERD History of C. difficile colitis life threatening requiring vancomycin by mouth 2014 Neuropathy due to diabetes Hypertension Hyperlipidemia COPD with exacerbation requiring steroids 12/04 Discharge Diagnosis Assessment: Fever w/N/V and crackles on lung exam but no infiltrate on CXR initial and repeat day of DC sputum culture pending Previous bilateral pneumonia 12/04 w/influenza CAD previous bypass History of atrial flutter status post ablation History of duodenal ulcer bleed Diabetes mellitus insulin requiring Chronic anemia GERD History of C. 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 Observation orders were placed and noted fever of 100.2. Pneumonia protocol has been followed in case dehydration is precluding infiltrate appearance on CXR. 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 Currently he reports a cough that is very productive of yellow sputum raising my suspicion for infection of lungs so abx will be started. Note from 04/17/17: Patient is doing much better and no infiltrate has appeared since IV fluids were given while on repeat chest x-ray. Patient eating well cough is minimal and ready to go home Blood cultures all no growth to date and sputum cultures pending Blood sugars are elevated due to steroids No fever but MAXIMUM TEMPERATURE was 101, vital signs stable, improved Regular rate and rhythm, clear to all sedation bilaterally except for very subtle crackles in the bases cleared with deep breaths No edema Will proceed on with discharge Diagnosis of bacterial bronchitis with fever so will go home on abx and steroids for AECOPD Discharge Summary Discharge Physical Examination Allergies: Coded Allergies: No Known Drug Allergies (Verified , 09/19/08) Vitals & I&Os Vital Signs Date Time Temp Pulse Resp B/P (MAP) Pulse Ox O2 Delivery O2 Flow Rate FiO2 04/17/17 10:40 94 Room Air 04/17/17 08:30 98.0 83 20 127/68 Hospital Course Labs (last 24 hrs) Laboratory Tests 04/16/17 12:55: White Blood Count 9.8, Red Blood Count 3.37L, Hemoglobin 11.4L, Hematocrit 33L, Mean Corpuscular Volume 97, Mean Corpuscular Hemoglobin 34, Mean Corpuscular Hemoglobin Concent 35, Red Cell Distribution Width 15.3H, Platelet Count 140, Mean Platelet Volume 9.3, Neutrophils (%) (Auto) 78H, Lymphocytes (%) (Auto) 6L , Monocytes (%) (Auto) 15H, Eosinophils (%) (Auto) 1, Basophils (%) (Auto) 0, Neutrophils # (Auto) 7.6, Lymphocytes # (Auto) 0.6L, Monocytes # (Auto) 1.5H, Eosinophils # (Auto) 0.1, Basophils # (Auto) 0.0, Neutrophils % (Manual) 80, Lymphocytes % (Manual) 8, Monocytes % (Manual) 12, Eosinophils % (Manual) 0, Basophils % (Manual) 0, Band Neutrophils 0, Blood Morphology Comment NORMAL, Sodium Level 135, Potassium Level 3.5L, Chloride Level 99, Carbon Dioxide Level 27, Anion Gap 9, Blood Urea Nitrogen 12, Creatinine 0.77, Estimat Glomerular Filtration Rate > 60, BUN/Creatinine Ratio 16, Glucose Level 83, Calcium Level 8.8, Total Bilirubin 1.5H, Aspartate Amino Transf (AST/SGOT) 18, Alanine Aminotransferase (ALT/SGPT) 25, Alkaline Phosphatase 62, Total Protein 5.9L, Albumin 3.7 04/16/17 15:00: Lactic Acid Level 1.09 04/16/17 15:57: Glucometer 211H 04/16/17 17:26: Urine Color YELLOW, Urine Clarity CLEAR, Urine pH 7, Urine Specific [place] 1.010L, Urine Protein 1+H, Urine Glucose (UA) 2+H, Urine Ketones 1+H, Urine Nitrite NEGATIVE, Urine Bilirubin NEGATIVE, Urine Urobilinogen NORMAL, Urine Leukocyte Esterase NEGATIVE, Urine RBC (Auto) NEGATIVE, Urine RBC NONE, Urine WBC RARE, Urine Squamous Epithelial Cells NONE, Urine Crystals NONE, Urine Bacteria NEGATIVE, Urine Casts NONE, Urine Mucus NEGATIVE, Urine Culture Indicated NO 04/16/17 21:27: Glucometer 221H 04/17/17 00:45: Glucometer 242H 04/17/17 05:50: Glucometer 298H 04/17/17 06:00: White Blood Count 9.0, Red Blood Count 3.44L, Hemoglobin 11.5L, Hematocrit 34L, Mean Corpuscular Volume 97, Mean Corpuscular Hemoglobin 33, Mean Corpuscular Hemoglobin Concent 34, Red Cell Distribution Width 15.2H, Platelet Count 132, Mean Platelet Volume 9.7, Neutrophils (%) (Auto) 94H, Lymphocytes (%) (Auto) 3L , Monocytes (%) (Auto) 3, Eosinophils (%) (Auto) 0, Basophils (%) (Auto) 0, Neutrophils # (Auto) 8.4H, Lymphocytes # (Auto) 0.3L, Monocytes # (Auto) 0.3, Eosinophils # (Auto) 0.0, Basophils # (Auto) 0.0, Sodium Level 137, Potassium Level 4.3, Chloride Level 103, Carbon Dioxide Level 21, Anion Gap 13, Blood Urea Nitrogen 16, Creatinine 0.94, Estimat Glomerular Filtration Rate > 60, BUN/ Creatinine Ratio 17, Glucose Level 310H, Calcium Level 8.8, Total Bilirubin 1.2H , Aspartate Amino Transf (AST/SGOT) 16, Alanine Aminotransferase (ALT/SGPT) 24, Alkaline Phosphatase 73, Total Protein 5.9L, Albumin 3.6 04/17/17 10:43: Glucometer 341H Microbiology 04/16/17 Gram Stain - Final, Resulted 04/16/17 Sputum Culture - Preliminary, Resulted Results To Follow Pending Labs Laboratory Tests 04/17/17 05:50: Glucometer 298 04/17/17 06:00: White Blood Count 9.0, Red Blood Count 3.44, Hemoglobin 11.5, Hematocrit 34, Mean Corpuscular Volume 97, Mean Corpuscular Hemoglobin 33, Mean Corpuscular Hemoglobin Concent 34, Red Cell Distribution Width 15.2, Platelet Count 132, Mean Platelet Volume 9.7, Neutrophils (%) (Auto) 94, Lymphocytes (%) (Auto) 3, Monocytes (%) (Auto) 3, Eosinophils (%) (Auto) 0, Basophils (%) (Auto) 0, Neutrophils # (Auto) 8.4, Lymphocytes # (Auto) 0.3, Monocytes # (Auto) 0.3, Eosinophils # (Auto) 0.0, Basophils # (Auto) 0.0, Sodium Level 137, Potassium Level 4.3, Chloride Level 103, Carbon Dioxide Level 21, Anion Gap 13, Blood Urea Nitrogen 16, Creatinine 0.94, Estimat Glomerular Filtration Rate > 60, BUN/ Creatinine Ratio 17, Glucose Level 310, Calcium Level 8.8, Total Bilirubin 1.2, Aspartate Amino Transf (AST/SGOT) 16, Alanine Aminotransferase (ALT/SGPT) 24, Alkaline Phosphatase 73, Total Protein 5.9, Albumin 3.6 04/17/17 10:43: Glucometer 341 Discharge Home Medications: Active Scripts Active Prednisone 10 Mg Tab.ds.pk 20 Mg PO DAILY 5 Days Cefdinir 300 Mg Capsule 300 Mg PO BID Atorvastatin Calcium 10 Mg Tablet 10 Mg PO HS 30 Days Acyclovir 200 Mg Capsule 200 Mg PO BID 30 Days Guaifenesin-Codeine Syrup (Guaifenesin/Codeine) 10 Ml Syrp 10 Ml PO Q4H PRN Benzonatate 100 Mg Capsule 200 Mg PO TID Aspirin EC (Aspirin) 81 Mg Tablet.dr 81 Mg PO DAILY 30 Days Reported Sucralfate 1 Gm Tablet 1 Gm PO QID Iprat-Albut 0.5-3(2.5) mg/3 ml (Ipratropium/Albuterol Sulfate) 3 Ml Ampul.neb 3 Ml IH TID PRN Ondansetron Odt (Ondansetron) 4 Mg Tab.rapdis 4 Mg PO Q8H PRN Fexofenadine HCl 180 Mg Tablet 180 Mg PO DAILY Ipratropium [place] 15 Ml Naspr 2 Sprays NSEACH TID PRN Advair 250-50 Diskus (Fluticasone/Salmeterol) 1 Each Blst.w.dev 1 Puff IH Q6H PRN Omeprazole 40 Mg Capsule.dr 40 Mg PO BID Sertraline HCl 100 Mg Tablet 100 Mg PO DAILY Carvedilol 3.125 Mg Tablet 3.125 Mg PO BID Dronabinol 2.5 Mg Capsule 2.5-5 Mg PO BID TAKES 1-2 (2.5 MG) CAPSULES Ritalin (Methylphenidate HCl) 5 Mg Tablet 5 Mg PO BID Lantus (Insulin Glargine,Hum.rec.anlog) 100 Unit/1 Ml Vial 25 Units SQ HS Humalog Kwikpen (Insulin Lispro) 100 Unit/1 Ml Insuln.pen 25 Units SQ AC Instructions to patient/family Please see electonic discharge instructions given to patient. Clinical Quality Measures DVT/VTE Risk/Contraindication: Risk Factor Score Per Nursin RFS Level Per Nursing on Admit: 4+=Very High ADALBERTO ARENAS DO Apr 17, 2017 12:28
== END 2017-04-17 12:13 | disposition home or self-care (01) ==
LOC: 4TH 12:37 → UNDOADMOB 12:37 → 4TH 13:00 → UNDODISOB 04-17 13:50
PROVIDERS: ADMIT Internal Medicine; ATTEND Internal Medicine
DX: R11.2 Nausea with vomiting, unspecified (principal); R50.9 Fever, unspecified; C91.00 Acute lymphoblastic leukemia not having achieved remission; E11.40 Type 2 diabetes mellitus with diabetic neuropathy, unspecified; I25.10 Atherosclerotic heart disease of native coronary artery without angina pectoris; I10 Essential (primary) hypertension; E78.5 Hyperlipidemia, unspecified; K21.9 Gastro-esophageal reflux disease without esophagitis; D64.9 Anemia, unspecified; J44.9 Chronic obstructive pulmonary disease, unspecified; Z79.4 Long term (current) use of insulin; Z79.899 Other long term (current) drug therapy; Z95.1 Presence of aortocoronary bypass graft; Z87.01 Personal history of pneumonia (recurrent); Z87.891 Personal history of nicotine dependence; Z87.19 Personal history of other diseases of the digestive system
CPT/HCPCS: 36415; 71020; 80053; 81000; 82962; 83605; 85007; 85025; 85027; 87040; 87070; 87205; 94640; 94760

== ENCOUNTER 2017-05-21 12:16 | Observation (INO) | payer MEDICARE ==
[~2017-05-21] VITALS: Ht 180.3 cm; Wt 77.8 kg
[2017-05-21] MEDS ORDERED: OMEP40CA36 PO (12:45)
[2017-05-21] MEDS ORDERED: ONDANSETRON 4 MG/2 ML (SDV) Z0FRAN IVP PRN (12:45)
[2017-05-21] MEDS ORDERED: fentaNYL INJECTION 100 MCG/2 ML AMP IVP PRN (12:45)
[2017-05-21] MEDS ORDERED: LORazepam INJ 2 MG/ML (ATIVAN) VIAL IVP PRN (12:45)
[2017-05-21 13:06] VITALS: BP 125/60
--- NOTE | 2017-05-21 13:58 | Short Stay Summary-Hospitalist ---
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 Sunday Avalos at [facility], diabetes mellitus insulin-dependent for the past 20 years, and COPD that presents to the hospital as a direct admission due to incapacitating sciatica causing radiculopathy and severe pain. He reports that he was trimming bushes but sitting down but somehow became incapacitated the following day initially responded to very low dose Valium for muscle relaxants but today was once again incapacitated so he was admitted for MRI evaluation and spine surgery consultation. He denies any bowel or bladder dysfunction and he did take prednisone 40 mg a couple of hours before admission to see if that would help as an anti-inflammatory. 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) Alcohol Use: Occasionally Uses Smoking Status: Former Smoker (quit 1975) Former smoker/When Quit: Jul 26, 1985 Recent Foreign Travel: No Contact w/other who traveled: No Recent Hopitalizations: No Recent Infectious Disease Expo: No Immunizations Up To Date Tetanus Booster (TDap): Less than 5yrs Date of Pneumonia Vaccine: Apr 18, 2013 Date of Influenza Vaccine: Jul 29, 2016 Seasonal Allergies Seasonal Allergies: No Surgeries HX Surgeries: Yes (TRIPLE BYPASS, HEART ABLATION, HERNIA REPAIR 05/01 strangulated, LYMPHECTOMY) Surgeries: Abdominal (hernia 04/01 Dr Brady umbilical), CABG (2004), Gallbladder, Open Heart Surgery Respiratory Hx Respiratory Disorders: Yes (COPD mild) Respiratory Disorders: COPD, Pneumonia Cardiovascular Hx Cardiovascular Disorders: Yes (CABG, ABLATION, TRPL BYPASS) Cardiac Disorders: Atrial Fibrillation, Coronary Artery Disease, Heart Attack, High Cholesterol, Hypertension Neurological Hx Neurological Disorders: Yes Neurological Disorders: Neuropathy Reproductive System Hx Reproductive Disorders: No Sexually Transmitted Disease: No HIV/AIDS: No Genitourinary Hx Genitourinary Disorders: Yes Genitourinary Disorders: Renal Failure Gastrointestinal Hx Gastrointestinal Disorders: Yes Gastrointestinal Disorders: Gastroesophageal Reflux, Gastrointestinal Bleed Musculoskeletal Hx Musculoskeletal Disorders: Yes Musculoskeletal Disorders: Arthritis Endocrine Hx Endocrine Disorders: Yes Endocrine Disorders: Diabetes, Insulin dep HEENT HX ENT Disorders: No HEENT Disorders: Cataract Cancer Hx Cancer: Yes (ALL RECEIVED CHEMO AT [facility] -3 WEEKS AGO LAST ONE) 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), Skin Psychosocial Hx Psychiatric Problems: No Integumentary HX Skin/Integumentary Disorder: Yes (SKIN CANCER REMOVED) Blood Transfusions Hx Blood Disorders: Yes (LEUKEMIA) Adverse Reaction to a Blood Tr: No Family Medical History Significant Family History: Heart Disease, CAD Over 55 Years Old, Diabetes, Hypertension, Vascular Disease Family Hx: Cardiovascular disease G8 BROTHER Diabetes mellitus 19 MOTHER G8 BROTHER Hypertension 19 MOTHER Review of Systems Constitutional: see HPI EENTM: no symptoms reported Respiratory: no symptoms reported Cardiovascular: no symptoms reported Gastrointestinal: no symptoms reported Genitourinary: no symptoms reported Musculoskeletal: back pain Skin: no symptoms reported Psychiatric/Neurological: No Symptoms Reported All Other Systems Reviewed Negative Unless Noted: Yes Physical Exam Physical Exam Vital Signs Vital Sign - Last 12Hours 05/21/17 13:06 Temp 97.6 Pulse 59 Resp 20 B/P (MAP) 125/60 Pulse Ox 98 O2 Delivery Room Air Capillary Refill : General Appearance: No Apparent Distress, WD/WN, Chronically ill, Thin Eyes: Bilateral Eye Normal Inspection, Bilateral Eye PERRL HEENT: PERRL/EOMI, Normal ENT Inspection, Pharynx Normal Neck: Full Range of Motion, Normal Inspection, Non Tender, Supple, Carotid Bruit Respiratory: Chest Non Tender, Lungs Clear, Normal Breath Sounds, No Accessory Muscle Use, No Respiratory Distress Cardiovascular: Regular Rate, Rhythm, No Edema, No Gallop, No JVD, No Murmur, Normal Peripheral Pulses Gastrointestinal: Normal Bowel Sounds, No Organomegaly, No Pulsatile Mass, Non Tender, Soft Back: Normal Inspection, No CVA Tenderness, No Vertebral Tenderness, Decreased Range of Motion Extremity: Normal Capillary Refill, Normal Inspection, Normal Range of Motion, Non Tender, No Calf Tenderness, No Pedal Edema Neurologic/Psychiatric: Alert, Oriented x3, No Motor/Sensory Deficits, Normal Mood/Affect Skin: Normal Color, Warm/Dry Lymphatic: No Adenopathy Short Stay Diagnosis Discharge Diagnosis-Short Stay Admission Diagnosis Assessment: Severe sciatica radiculopathy difficult to ascertain which side is worse causing incapacity due to pain unrelieved with prednisone 40mg and Valium 0.5mg PO TID ALL 05/[address] Nettles's care Previous bilateral pneumonia 12/04 w/influenza CAD previous bypass History of atrial flutter status post ablation History of duodenal ulcer bleed Diabetes mellitus insulin requiring Chronic anemia GERD History of C. difficile colitis life threatening requiring vancomycin PO 2014 Neuropathy due to diabetes Hypertension Hyperlipidemia COPD with exacerbation requiring steroids 12/04 Final Discharge Diagnosis Assessment: Severe sciatica radiculopathy difficult to ascertain which side is worse causing incapacity due to pain unrelieved with prednisone 40mg and Valium 0.5mg PO TID MRI pending consulting Dr Avalos ALL 05/[address] Nettles's care Previous bilateral pneumonia 12/04 w/influenza CAD previous bypass History of atrial flutter status post ablation History of duodenal ulcer bleed Diabetes mellitus insulin requiring Chronic anemia GERD History of C. difficile colitis life threatening requiring vancomycin PO 2014 Neuropathy due to diabetes Hypertension Hyperlipidemia COPD with exacerbation requiring steroids 12/04 Conclusion Plan Plan: MRI lumbar spine Confer with Dr Avalos whom I appreciate his expertise Reconciled home meds Steroids empirically Ativan for muscle relaxant if needed Clinical Quality Measures DVT/VTE Risk/Contraindication: Other: may need surgery ROSALINDA ARENAS DO May 21, 2017 13:58
[2017-05-21] MEDS ORDERED: PATIENT MAY USE OWN MEDS, ALL MC SCH (14:15)
--- NOTE | 2017-05-21 14:32 | Diagnostic Imaging Report ---
PROCEDURE: MRI lumbar spine. TECHNIQUE: Multiplanar, multisequence MRI of the lumbar spine was performed without contrast. INDICATION: Back pain. COMPARISON: There are no prior studies available for comparison. FINDINGS: The T2 parasagittal images reveal that there is desiccation of the disc at every level and that there is narrowing of the disc spaces at each level with the exception of L2-3. At the L1-2 level, there is a focal disc protrusion eccentric to the right. The disc compresses the right ventral aspect of the thecal sac and does produce spinal stenosis. The disc material is also in close proximity to the exiting right nerve root at this level and may encroach upon the nerve root. At the L1-2 level, there is a slight disc bulge centrally. The disc compresses the ventral aspect of the thecal sac and narrows the AP diameter to 10.7 mm. There is no significant neural foraminal narrowing at this level. At the L3-4 level, there is a disc bulge eccentric to the left. The disc flattens the left ventral aspect of the thecal sac and narrows the AP diameter to 10.5 mm. There is also moderate narrowing of the neural foramen on the left and mild narrowing of the neural foramen on the right at this level. At the L4-5 level, there is also a disc bulge eccentric to the left. The AP diameter of the thecal sac is narrowed to 10.7 mm. There is moderate narrowing of the neural foramen on the left at this level and mild narrowing on the right. At the L5-S1 level, there is no evidence for spinal stenosis or nerve root encroachment. There is no abnormal signal arising from the cord or the vertebral bodies to indicate an acute abnormality. There is no sign of a paraspinal mass. IMPRESSION: 1. There is a prominent disc protrusion to the right at L1-2. This compresses the right ventral aspect of the thecal sac resulting in spinal stenosis. The disc material is also in close proximity to the exiting right nerve root at this level, and there may be encroachment of the nerve root. 2. There is borderline trefoil stenosis at L2-3, L3-4, and L4-5 with narrowing of the neural foramina bilaterally at these levels. 3. There is no evidence for spinal stenosis or nerve root encroachment at L5-S1. 4. There is no sign of an acute bony abnormality or of a cord lesion. Dictated by: Dictated on workstation # [id number]
[2017-05-21 15:26] VITALS: BP 112/57
[2017-05-21] MEDS ORDERED: SUCRALFATE 1 GM (CARAFATE) TAB PO SCH (16:00)
[2017-05-21] MEDS ORDERED: inSUlin ASPART (NovoLOG) 1 UNIT/0.01 ML (CHARGE PER UNIT) SC SCH (16:00)
--- NOTE | 2017-05-21 17:16 | Consultation ---
History of Present Illness History of Present Illness Patient Consulted On(vivien/time) 05/21/17 17:10 Date Seen by Provider: May 21, 2017 Time Seen by Provider: 17:10 Reason for Visit: R leg pain History of Present Illness Mr Watts is a very pleasant and sharp 76 yr old gentleman with a long history of recurrent episodes of sciatica. He presented today to [facility] for pain control for his back and RLE radiating pain. He was placed on IV steroids and within hours his pain is much improved. He did get an MRI that shows multilevel mild foraminal stenosis with a right L1-2 paracentral disc protrusion causing moderate/severe stenosis at that level. the pain currently is located in the right buttock and anterolateral proximal thigh. He denies any bowel or bladder involvement. Allergies and Home Medications Allergies Coded Allergies: No Known Drug Allergies (Verified , 09/19/08) Home Medications Acyclovir 200 Mg Capsule, 200 MG PO BID for 30 Days Prescribed by: ADALBERTO WATTS on 04/16/17 1531 Aspirin 81 Mg Tablet., 81 MG PO DAILY for 30 Days Prescribed by: ADALBERTO WATTS on 08/29/16 0624 Atorvastatin Calcium 10 Mg Tablet, 10 MG PO HS for 30 Days Prescribed by: ADALBERTO WATTS on 04/16/17 1531 Carvedilol 3.125 Mg Tablet, 3.125 MG PO BID, (Reported) Dronabinol 2.5 Mg Capsule, 2.5-5 MG PO BID, (Reported) TAKES 1-2 (2.5 MG) CAPSULES Fluticasone/Salmeterol 1 Each Blst.w.dev, 1 PUFF IH Q6H PRN for SHORTNESS OF BREATH, (Reported) Insulin Glargine,Hum.rec.anlog 100 Unit/1 Ml Vial, 25 UNITS SQ HS, (Reported) Insulin Lispro 100 Unit/1 Ml Insuln.pen, 25 UNITS SQ AC, (Reported) Ipratropium/Albuterol Sulfate 3 Ml Ampul.neb, 3 ML IH TID PRN for SHORTNESS OF BREATH, (Reported) Methylphenidate HCl 5 Mg Tablet, 5 MG PO BID, (Reported) Omeprazole 40 Mg Capsule., 40 MG PO BID, (Reported) Omeprazole 40 Mg Capsule.dr, 40 MG PO BID for 30 Days Prescribed by: ADALBERTO WATTS on 05/21/17 1245 Ondansetron 4 Mg Tab.rapdis, 4 MG PO Q8H PRN for NAUSEA/VOMITING, (Reported) Sertraline HCl 100 Mg Tablet, 100 MG PO DAILY, (Reported) Sucralfate 1 Gm Tablet, 1 GM PO QID, (Reported) Past Rvbponr-Wapkji-Cmhunf Hx Patient Social History Alcohol Use: Occasionally Uses Recreational Drug Use: No Smoking Status: Former Smoker (quit 1975) Former Smoker/When Quit: Jul 26, 1985 Recent Foreign Travel: No Contact w/Someone Who Travel: No Recent Infectious Disease Expo: No Recent Hopitalizations: No Physical Abuse Screen: No Sexual Abuse: No Immunizations Up To Date Tetanus Booster (TDap): Less than 5yrs PED Vaccines UTD: No Date of Pneumonia Vaccine: Apr 18, 2013 Date of Influenza Vaccine: Jul 29, 2016 Seasonal Allergies Seasonal Allergies: No Surgeries HX Surgeries: Yes (TRIPLE BYPASS, HEART ABLATION, HERNIA REPAIR 05/01 strangulated, LYMPHECTOMY) Surgeries: Abdominal (hernia 04/01 Dr Brady umbilical), CABG (2004), Gallbladder, Open Heart Surgery Respiratory Hx Respiratory Disorders: Yes (COPD mild) Respiratory Disorders: COPD Cardiovascular Hx Cardiac Disorders: Yes (CABG, ABLATION, TRPL BYPASS) Cardiac Disorders: Atrial Fibrillation, Coronary Artery Disease, Heart Attack, High Cholesterol, Hypertension Neurological Hx Neurological Disorders: Yes Neurological Disorders: Neuropathy Reproductive System Hx Reproductive Disorders: No Sexually Transmitted Disease: No HIV/AIDS: No Genitourinary Hx Genitourinary Disorders: Yes Genitourinary Disorders: Renal Failure Gastrointestinal Hx Gastrointestinal Disorders: Yes Gastrointestinal Disorders: Gastroesophageal Reflux, Gastrointestinal Bleed Musculoskeletal Hx Musculoskeletal Disorders: Yes Musculoskeletal Disorders: Arthritis Endocrine Hx Endocrine Disorders: Yes Endocrine Disorders: Diabetes, Insulin dep HEENT HX ENT Disorders: No HEENT Disorders: Cataract Cancer Hx Cancer: Yes (ALL RECEIVED CHEMO AT [facility] -3 WEEKS AGO LAST ONE) Cancer: Leukemia, Skin Psychosocial Hx Psychiatric Problems: No Integumentary HX Skin/Integumentary Disorder: Yes (SKIN CANCER REMOVED) Blood Transfusions Hx Blood Disorders: Yes (LEUKEMIA) Adverse Reaction to a Blood Tr: No Family Medical History Significant Family History: Heart Disease, CAD Over 55 Years Old, Diabetes, Hypertension, Vascular Disease Family Medial History: Cardiovascular disease G8 BROTHER Diabetes mellitus 19 MOTHER G8 BROTHER Hypertension 19 MOTHER Review of Systems-General Constitutional: no symptoms reported Physical Exam-General Problems Physical Exam Vital Signs Vital Sign - Last 12Hours 05/21/17 13:06 Temp 97.6 Pulse 59 Resp 20 B/P (MAP) 125/60 Pulse Ox 98 O2 Delivery Room Air Capillary Refill : Extremities: other (5/5 motor marcial LE including DF, HS, quads, hip flexors, neg SLR bilaterally, SILT all dermatomes) Assessment/Plan Assessment/Plan Admission Diagnosis/Plan ASSESSMENT: R L1-2 paracentral HNP lumbar radiculopathy PLAN: pain management activity modification avoid neurontin and lyrica due to side affects NSAIDs consider Right L1-2 TESI should pain return Clinical Quality Measures DVT/VTE Risk/Contraindication: Risk Factor Score Per Nursin RFS Level Per Nursing on Admit: 2=Moderate Other: may need surgery JACKSON ANTONY DO May 21, 2017 17:16
[2017-05-21] MEDS ORDERED: methylPREDNISolone 40 MG/ML (Solu-MEDROL) VIAL IV SCH (18:00)
[2017-05-21] MEDS ORDERED: NON-FORMULARY MEDICATION 1 EA EA (Omeprazole 40 MG) PO SCH (21:00)
[2017-05-21] MEDS ORDERED: ATORVASTATIN 10 MG (LIPITOR) TABLET PO SCH (21:00)
[2017-05-21] MEDS ORDERED: OMEPRAZOLE 40 MG CAP PO SCH (21:00)
[2017-05-21] MEDS ORDERED: CARVEDILOL 3.125 MG (COREG) TABLET PO SCH (21:00)
[2017-05-21] MEDS ORDERED: ACYCLOVIR 200 MG CAP (ZOVIRAX) PO SCH (21:00)
[2017-05-22] MEDS ORDERED: SERTRALINE 100 MG (ZOLOFT) TAB PO SCH (09:00)
== END 2017-05-21 16:50 | disposition home or self-care (01) ==
LOC: 4TH 12:40
PROVIDERS: ADMIT Internal Medicine; ATTEND Internal Medicine
DX: M51.26 Other intervertebral disc displacement, lumbar region (principal); M48.06 Spinal stenosis, lumbar region; I25.10 Atherosclerotic heart disease of native coronary artery without angina pectoris; E11.40 Type 2 diabetes mellitus with diabetic neuropathy, unspecified; J44.9 Chronic obstructive pulmonary disease, unspecified; I10 Essential (primary) hypertension; I25.2 Old myocardial infarction; E78.5 Hyperlipidemia, unspecified; K21.9 Gastro-esophageal reflux disease without esophagitis; Z79.82 Long term (current) use of aspirin; Z79.4 Long term (current) use of insulin; Z79.899 Other long term (current) drug therapy; Z95.1 Presence of aortocoronary bypass graft; Z87.891 Personal history of nicotine dependence; Z85.831 Personal history of malignant neoplasm of soft tissue
CPT/HCPCS: 72148; 82962; 99211; G0378

== ENCOUNTER 2017-07-08 14:28 | Outpatient (RCR) | payer MEDICARE ==
[2017-04-22 11:59] LABS: BASOPHILS % (AUTO) 0 % (0-10); EOSINOPHILS % (AUTO) 0 % (0-10); LYMPHOCYTES # (AUTO) 0.5 X 10^3 (1.0-4.0); LYMPHOCYTES % (AUTO) 5 % (12-44); MEAN CORPUSCULAR HEMOGLOBIN 34 PG (25-34); MEAN CORPUSCULAR HGB CONC 35 G/DL (32-36); MEAN CORPUSCULAR VOLUME 99 FL (80-99); MEAN PLATELET VOLUME 8.7 FL (7.4-10.4); MONOCYTES # (AUTO) 0.6 X 10^3 (0.0-1.0); MONOCYTES % (AUTO) 7 % (0-12); NEUTROPHILS % (AUTO) 87 % (42-75); PLATELET COUNT 204 10^3/uL (130-400); RED CELL DISTRIBUTION WIDTH 15.7 % (10.0-14.5); WHITE BLOOD COUNT 9.2 10^3/uL (4.3-11.0)
[2017-04-22 12:27] LABS: ANION GAP 8 MMOL/L (5-14); BLOOD UREA NITROGEN 17 MG/DL (7-18); BUN/CREATININE RATIO 17; CALCIUM 9.2 MG/DL (8.5-10.1); CARBON DIOXIDE 25 MMOL/L (21-32); CHLORIDE 101 MMOL/L (98-107); CREATININE SERUM 1.03 MG/DL (0.60-1.30); GFR ESTIMATED > 60; GLUCOSE 388 MG/DL (70-105); POTASSIUM 5.3 MMOL/L (3.6-5.0); SODIUM 134 MMOL/L (135-145)
[2017-05-06 15:55] LABS: BASOPHILS % (AUTO) 0 % (0-10); EOSINOPHILS # (AUTO) 0.1 10^3/uL (0.0-0.3); EOSINOPHILS % (AUTO) 2 % (0-10); LYMPHOCYTES # (AUTO) 0.7 X 10^3 (1.0-4.0); LYMPHOCYTES % (AUTO) 16 % (12-44); MEAN CORPUSCULAR HEMOGLOBIN 34 PG (25-34); MEAN CORPUSCULAR HGB CONC 34 G/DL (32-36); MEAN CORPUSCULAR VOLUME 98 FL (80-99); MEAN PLATELET VOLUME 8.9 FL (7.4-10.4); MONOCYTES # (AUTO) 0.5 X 10^3 (0.0-1.0); MONOCYTES % (AUTO) 11 % (0-12); NEUTROPHILS # (AUTO) 3.2 X 10^3 (1.8-7.8); NEUTROPHILS % (AUTO) 71 % (42-75); PLATELET COUNT 144 10^3/uL (130-400); RED BLOOD COUNT 3.23 10^6/uL (4.35-5.85); RED CELL DISTRIBUTION WIDTH 15.5 % (10.0-14.5); WHITE BLOOD COUNT 4.5 10^3/uL (4.3-11.0)
[2017-05-06 16:17] LABS: ALANINE AMINOTRANSFERASE 26 U/L (0-55); ALBUMIN 3.7 GM/DL (3.2-4.5); ANION GAP 10 MMOL/L (5-14); ASPARTATE AMINO TRANSFERASE 20 U/L (5-34); BILIRUBIN,TOTAL 0.9 MG/DL (0.1-1.0); BLOOD UREA NITROGEN 16 MG/DL (7-18); BUN/CREATININE RATIO 16; CALCIUM 8.4 MG/DL (8.5-10.1); CARBON DIOXIDE 23 MMOL/L (21-32); CHLORIDE 104 MMOL/L (98-107); CREATININE SERUM 0.99 MG/DL (0.60-1.30); GFR ESTIMATED > 60; GLUCOSE 239 MG/DL (70-105); LACTATE DEHYDROGENASE 222 U/L (125-220); POTASSIUM 4.1 MMOL/L (3.6-5.0); SODIUM 137 MMOL/L (135-145); TOTAL PROTEIN 6.1 GM/DL (6.4-8.2)
[2017-06-02 15:48] LABS: BASOPHILS % (AUTO) 0 % (0-10); EOSINOPHILS % (AUTO) 1 % (0-10); LYMPHOCYTES # (AUTO) 0.3 X 10^3 (1.0-4.0); LYMPHOCYTES % (AUTO) 8 % (12-44); MEAN CORPUSCULAR HEMOGLOBIN 34 PG (25-34); MEAN CORPUSCULAR HGB CONC 34 G/DL (32-36); MEAN CORPUSCULAR VOLUME 99 FL (80-99); MEAN PLATELET VOLUME 9.1 FL (7.4-10.4); MONOCYTES # (AUTO) 0.2 X 10^3 (0.0-1.0); MONOCYTES % (AUTO) 4 % (0-12); NEUTROPHILS # (AUTO) 3.5 X 10^3 (1.8-7.8); NEUTROPHILS % (AUTO) 88 % (42-75); PLATELET COUNT 133 10^3/uL (130-400); RED BLOOD COUNT 3.14 10^6/uL (4.35-5.85); RED CELL DISTRIBUTION WIDTH 16.2 % (10.0-14.5)
[2017-06-02 16:17] LABS: ALANINE AMINOTRANSFERASE 29 U/L (0-55); ALBUMIN 3.9 GM/DL (3.2-4.5); ANION GAP 8 MMOL/L (5-14); ASPARTATE AMINO TRANSFERASE 19 U/L (5-34); BILIRUBIN,TOTAL 0.8 MG/DL (0.1-1.0); BLOOD UREA NITROGEN 16 MG/DL (7-18); BUN/CREATININE RATIO 15; CALCIUM 8.8 MG/DL (8.5-10.1); CARBON DIOXIDE 23 MMOL/L (21-32); CHLORIDE 103 MMOL/L (98-107); CREATININE SERUM 1.05 MG/DL (0.60-1.30); GFR ESTIMATED > 60; LACTATE DEHYDROGENASE 276 U/L (125-220); POTASSIUM 4.2 MMOL/L (3.6-5.0); SODIUM 134 MMOL/L (135-145); TOTAL PROTEIN 6.1 GM/DL (6.4-8.2)
[2017-06-02 16:24] LABS: GLUCOSE 430 MG/DL (70-105)
[2017-06-22 11:13] LABS: BASOPHILS % (AUTO) 1 % (0-10); EOSINOPHILS # (AUTO) 0.1 10^3/uL (0.0-0.3); EOSINOPHILS % (AUTO) 1 % (0-10); LYMPHOCYTES # (AUTO) 2.2 X 10^3 (1.0-4.0); LYMPHOCYTES % (AUTO) 36 % (12-44); MEAN CORPUSCULAR HEMOGLOBIN 34 PG (25-34); MEAN CORPUSCULAR HGB CONC 35 G/DL (32-36); MEAN CORPUSCULAR VOLUME 98 FL (80-99); MEAN PLATELET VOLUME 9.4 FL (7.4-10.4); MONOCYTES % (AUTO) 16 % (0-12); NEUTROPHILS # (AUTO) 2.9 X 10^3 (1.8-7.8); NEUTROPHILS % (AUTO) 47 % (42-75); PLATELET COUNT 170 10^3/uL (130-400); RED BLOOD COUNT 3.61 10^6/uL (4.35-5.85); RED CELL DISTRIBUTION WIDTH 14.3 % (10.0-14.5); WHITE BLOOD COUNT 6.3 10^3/uL (4.3-11.0)
[2017-06-22 11:36] LABS: ALANINE AMINOTRANSFERASE 19 U/L (0-55); ALBUMIN 3.9 GM/DL (3.2-4.5); ANION GAP 11 MMOL/L (5-14); ASPARTATE AMINO TRANSFERASE 21 U/L (5-34); BILIRUBIN,TOTAL 0.7 MG/DL (0.1-1.0); BLOOD UREA NITROGEN 13 MG/DL (7-18); BUN/CREATININE RATIO 13; CALCIUM 8.8 MG/DL (8.5-10.1); CARBON DIOXIDE 23 MMOL/L (21-32); CHLORIDE 102 MMOL/L (98-107); CREATININE SERUM 1.04 MG/DL (0.60-1.30); GFR ESTIMATED > 60; GLUCOSE 330 MG/DL (70-105); LACTATE DEHYDROGENASE 277 U/L (125-220); POTASSIUM 4.7 MMOL/L (3.6-5.0); SODIUM 136 MMOL/L (135-145); TOTAL PROTEIN 6.5 GM/DL (6.4-8.2)
[2017-06-22 12:10] LABS: RETICULOCYTE % 2.68 % (0.50-2.40)
[2017-06-22 12:29] LABS: NEUTROPHILS % (MANUAL) 46 %
[2017-06-22 12:30] LABS: LYMPHOCYTES % (MANUAL) 28 %; REACTIVE LYMPHOCYTES 12 %
[~2017-07-08 14:28] MED LIST changes: +NS (IVPB) CANCER CENTER 250 ML IV SCH; +NS IV SCH; +VINCRISTINE SULFATE IV SCH
[2017-07-08 14:56] LABS: BASOPHILS % (AUTO) 0 % (0-10); EOSINOPHILS # (AUTO) 0.1 10^3/uL (0.0-0.3); EOSINOPHILS % (AUTO) 1 % (0-10); LYMPHOCYTES # (AUTO) 2.5 X 10^3 (1.0-4.0); LYMPHOCYTES % (AUTO) 37 % (12-44); MEAN CORPUSCULAR HEMOGLOBIN 32 PG (25-34); MEAN CORPUSCULAR HGB CONC 34 G/DL (32-36); MEAN CORPUSCULAR VOLUME 96 FL (80-99); MEAN PLATELET VOLUME 9.2 FL (7.4-10.4); MONOCYTES % (AUTO) 14 % (0-12); NEUTROPHILS # (AUTO) 3.3 X 10^3 (1.8-7.8); NEUTROPHILS % (AUTO) 48 % (42-75); PLATELET COUNT 149 10^3/uL (130-400); RED BLOOD COUNT 3.62 10^6/uL (4.35-5.85); RED CELL DISTRIBUTION WIDTH 13.3 % (10.0-14.5); WHITE BLOOD COUNT 6.9 10^3/uL (4.3-11.0)
[2017-07-08 15:12] LABS: ALANINE AMINOTRANSFERASE 15 U/L (0-55); ALBUMIN 3.6 GM/DL (3.2-4.5); ANION GAP 9 MMOL/L (5-14); ASPARTATE AMINO TRANSFERASE 14 U/L (5-34); BILIRUBIN,TOTAL 0.5 MG/DL (0.1-1.0); BLOOD UREA NITROGEN 20 MG/DL (7-18); BUN/CREATININE RATIO 23; CALCIUM 8.4 MG/DL (8.5-10.1); CARBON DIOXIDE 24 MMOL/L (21-32); CHLORIDE 105 MMOL/L (98-107); CREATININE SERUM 0.87 MG/DL (0.60-1.30); GFR ESTIMATED > 60; GLUCOSE 257 MG/DL (70-105); LACTATE DEHYDROGENASE 192 U/L (125-220); POTASSIUM 3.9 MMOL/L (3.6-5.0); SODIUM 138 MMOL/L (135-145)
== END 2017-07-17 | disposition home or self-care (01) ==
LOC: ONC 14:28
PROVIDERS: ATTEND Internal Medicine Hematology & Oncology
DX: C91.00 Acute lymphoblastic leukemia not having achieved remission (principal); D50.9 Iron deficiency anemia, unspecified; R29.898 Other symptoms and signs involving the musculoskeletal system; I25.10 Atherosclerotic heart disease of native coronary artery without angina pectoris; I10 Essential (primary) hypertension; E11.43 Type 2 diabetes mellitus with diabetic autonomic (poly)neuropathy; E78.5 Hyperlipidemia, unspecified; E83.42 Hypomagnesemia; K12.30 Oral mucositis (ulcerative), unspecified; Z79.4 Long term (current) use of insulin; Z79.899 Other long term (current) drug therapy
CPT/HCPCS: 36415; 36591; 38221; 80048; 80053; 83615; 85007; 85025; 85027; 85045; 88184; 88185; 88237; 88264; 88280; 88305; 88311; 88313; 88368; 88369; 96409

== ENCOUNTER → 2017-07-30 | Outpatient (CLI) | payer MEDICARE ==
[~2017-07-30] MED LIST changes: -NS (IVPB) CANCER CENTER 250 ML IV SCH; -NS IV SCH; -VINCRISTINE SULFATE IV SCH
== END ==
LOC: CARD 10:39
PROVIDERS: ATTEND Internal Medicine Cardiovascular Disease
DX: I25.10 Atherosclerotic heart disease of native coronary artery without angina pectoris (principal); R07.9 Chest pain, unspecified; I48.91 Unspecified atrial fibrillation; I10 Essential (primary) hypertension; E78.2 Mixed hyperlipidemia
CPT/HCPCS: 93306

== ENCOUNTER 2017-09-14 14:12 | Outpatient (RCR) | payer MEDICARE ==
[~2017-09-14 14:12] MED LIST changes: +BENZ-36 PO; -BENZ100C23 PO
[2017-09-14 14:33] LABS: BASOPHILS % (AUTO) 0 % (0-10); EOSINOPHILS # (AUTO) 0.3 10^3/uL (0.0-0.3); EOSINOPHILS % (AUTO) 4 % (0-10); HEMATOCRIT 34 % (40-54); HEMOGLOBIN 11.8 G/DL (13.3-17.7); LYMPHOCYTES # (AUTO) 1.6 X 10^3 (1.0-4.0); LYMPHOCYTES % (AUTO) 23 % (12-44); MEAN CORPUSCULAR HEMOGLOBIN 31 PG (25-34); MEAN CORPUSCULAR HGB CONC 35 G/DL (32-36); MEAN CORPUSCULAR VOLUME 89 FL (80-99); MONOCYTES # (AUTO) 0.7 X 10^3 (0.0-1.0); MONOCYTES % (AUTO) 10 % (0-12); NEUTROPHILS # (AUTO) 4.3 X 10^3 (1.8-7.8); NEUTROPHILS % (AUTO) 62 % (42-75); PLATELET COUNT 192 10^3/uL (130-400); RED BLOOD COUNT 3.78 10^6/uL (4.35-5.85); RED CELL DISTRIBUTION WIDTH 13.8 % (10.0-14.5)
[2017-09-14 14:53] LABS: ALANINE AMINOTRANSFERASE 22 U/L (0-55); ALBUMIN 3.4 GM/DL (3.2-4.5); ALKALINE PHOSPHATASE 113 U/L (40-136); BILIRUBIN,TOTAL 0.4 MG/DL (0.1-1.0); BUN/CREATININE RATIO 17; CALCIUM 8.7 MG/DL (8.5-10.1); CARBON DIOXIDE 25 MMOL/L (21-32); CHLORIDE 103 MMOL/L (98-107); CREATININE SERUM 1.02 MG/DL (0.60-1.30); GFR ESTIMATED > 60; GLUCOSE 215 MG/DL (70-105); POTASSIUM 3.7 MMOL/L (3.6-5.0); SODIUM 137 MMOL/L (135-145); TOTAL PROTEIN 6.9 GM/DL (6.4-8.2)
== END 2017-11-08 11:44 | disposition home or self-care (01) ==
LOC: ONC 14:12
PROVIDERS: ATTEND Internal Medicine Hematology & Oncology
DX: C91.00 Acute lymphoblastic leukemia not having achieved remission (principal); D50.9 Iron deficiency anemia, unspecified; Z79.899 Other long term (current) drug therapy; Z45.2 Encounter for adjustment and management of vascular access device
CPT/HCPCS: 36415; 36591; 80053; 83615; 85025; 96523

== ENCOUNTER → 2017-10-28 | Outpatient (CLI) | payer MEDICARE ==
--- NOTE | 2017-10-28 12:44 | Diagnostic Imaging Report ---
EXAMINATION: Left foot at 12:04 p.m. INDICATION: Foot pain. FINDINGS: Three views were obtained. There are no prior studies available for comparison. There is no fracture, dislocation, or acute bony abnormality evident. There is at least moderate degenerative disease of the PIP and DIP joints of the digits. Vascular calcifications are also seen. The soft tissues are otherwise unremarkable. IMPRESSION: There is no evidence for an acute bony abnormality. Dictated by: Dictated on workstation # [id number]
== END ==
LOC: RAD 11:32
PROVIDERS: ATTEND Internal Medicine
DX: M79.672 Pain in left foot (principal)
CPT/HCPCS: 73630

== ENCOUNTER → 2017-11-02 | Outpatient (CLI) | payer MEDICARE | LOC: WOUNDCARE 13:00 | PROVIDERS: ATTEND Surgery | DX: E11.621 Type 2 diabetes mellitus with foot ulcer (principal); E11.42 Type 2 diabetes mellitus with diabetic polyneuropathy; L97.521 Non-pressure chronic ulcer of other part of left foot limited to breakdown of skin; L03.115 Cellulitis of right lower limb | CPT/HCPCS: 97597 ==

== ENCOUNTER → 2017-11-08 | Outpatient (CLI) | payer MEDICARE | LOC: WOUNDCARE 14:29 | PROVIDERS: ATTEND Surgery | DX: E11.621 Type 2 diabetes mellitus with foot ulcer (principal); L97.521 Non-pressure chronic ulcer of other part of left foot limited to breakdown of skin; L03.115 Cellulitis of right lower limb; E11.42 Type 2 diabetes mellitus with diabetic polyneuropathy | CPT/HCPCS: 99212 ==

== ENCOUNTER → 2018-02-16 | Outpatient (RCR) | payer MEDICARE | END | disposition home or self-care (01) | LOC: CR3 01-17 06:00 | PROVIDERS: ATTEND Internal Medicine | DX: Z29.8 Encounter for other specified prophylactic measures (principal) ==

== ENCOUNTER 2018-03-18 06:12 | Outpatient (RCR) | payer MEDICARE | END 2018-03-19 | disposition home or self-care (01) | LOC: CR3 06:12 | PROVIDERS: ATTEND Internal Medicine | DX: Z29.8 Encounter for other specified prophylactic measures (principal) ==

== ENCOUNTER 2018-04-15 06:10 | Outpatient (RCR) | payer MEDICARE ==
[~2018-04-15 06:10] MED LIST changes: -IPRA3AMP IH; +IPRA3AMP31 IH; -METH2.5T PO; +MTX2.5T PO
== END 2018-04-20 | disposition home or self-care (01) ==
LOC: CR3 06:10
PROVIDERS: ATTEND Internal Medicine
DX: Z29.8 Encounter for other specified prophylactic measures (principal)

== ENCOUNTER → 2018-05-17 | Outpatient (CLI) | payer MEDICARE | LOC: LAB 08:39 | PROVIDERS: ATTEND Internal Medicine | DX: R53.83 Other fatigue (principal); E08.621 Diabetes mellitus due to underlying condition with foot ulcer; R73.9 Hyperglycemia, unspecified | CPT/HCPCS: 80061; 82043; 83036; 84443 ==

== ENCOUNTER 2018-05-20 06:23 | Outpatient (RCR) | payer MEDICARE | END 2018-05-22 | disposition home or self-care (01) | LOC: CR3 06:23 | PROVIDERS: ATTEND Internal Medicine | DX: Z29.8 Encounter for other specified prophylactic measures (principal) ==

== ENCOUNTER 2018-06-14 10:06 | Outpatient (RCR) | payer MEDICARE ==
[~2018-06-14 10:06] MED LIST changes: -LOSA25TA21 PO; +LOSA25TA6 PO; -OXYC-197 PO; +OXYC1TAB87 PO
== END 2018-07-07 16:19 | disposition home or self-care (01) ==
LOC: ONC 10:06
PROVIDERS: ATTEND Internal Medicine Hematology & Oncology
DX: C91.00 Acute lymphoblastic leukemia not having achieved remission (principal); D50.9 Iron deficiency anemia, unspecified; I25.10 Atherosclerotic heart disease of native coronary artery without angina pectoris; I10 Essential (primary) hypertension; E11.43 Type 2 diabetes mellitus with diabetic autonomic (poly)neuropathy; E78.5 Hyperlipidemia, unspecified; Z79.4 Long term (current) use of insulin; Z79.899 Other long term (current) drug therapy; Z45.2 Encounter for adjustment and management of vascular access device
CPT/HCPCS: 96523

== ENCOUNTER → 2018-06-22 | Outpatient (RCR) | payer MEDICARE | END | disposition home or self-care (01) | LOC: CR3 05-23 06:51 | PROVIDERS: ATTEND Internal Medicine | DX: Z29.8 Encounter for other specified prophylactic measures (principal) ==

== ENCOUNTER 2018-07-08 11:25 | Outpatient (RCR) | payer MEDICARE ==
[2018-07-08 11:46] LABS: BASOPHILS % (AUTO) 0 % (0-10); EOSINOPHILS # (AUTO) 0.2 10^3/uL (0.0-0.3); EOSINOPHILS % (AUTO) 3 % (0-10); HEMATOCRIT 34 % (40-54); HEMOGLOBIN 11.8 G/DL (13.3-17.7); LYMPHOCYTES # (AUTO) 1.6 X 10^3 (1.0-4.0); LYMPHOCYTES % (AUTO) 24 % (12-44); MEAN CORPUSCULAR HEMOGLOBIN 33 PG (25-34); MEAN CORPUSCULAR HGB CONC 35 G/DL (32-36); MEAN CORPUSCULAR VOLUME 96 FL (80-99); MEAN PLATELET VOLUME 8.6 FL (7.4-10.4); MONOCYTES # (AUTO) 0.9 X 10^3 (0.0-1.0); MONOCYTES % (AUTO) 14 % (0-12); NEUTROPHILS % (AUTO) 60 % (42-75); PLATELET COUNT 145 10^3/uL (130-400); RED BLOOD COUNT 3.53 10^6/uL (4.35-5.85); RED CELL DISTRIBUTION WIDTH 14.2 % (10.0-14.5); WHITE BLOOD COUNT 6.7 10^3/uL (4.3-11.0)
[2018-07-08 12:05] LABS: ALANINE AMINOTRANSFERASE 15 U/L (0-55); ALKALINE PHOSPHATASE 84 U/L (40-136); BILIRUBIN,TOTAL 0.6 MG/DL (0.1-1.0); BUN/CREATININE RATIO 17; CALCIUM 9.1 MG/DL (8.5-10.1); CARBON DIOXIDE 24 MMOL/L (21-32); CHLORIDE 105 MMOL/L (98-107); CREATININE SERUM 0.94 MG/DL (0.60-1.30); GFR ESTIMATED > 60; GLUCOSE 158 MG/DL (70-105); SODIUM 137 MMOL/L (135-145); TOTAL PROTEIN 6.6 GM/DL (6.4-8.2)
== END 2018-07-17 | disposition home or self-care (01) ==
LOC: ONC 11:25
PROVIDERS: ATTEND Internal Medicine Hematology & Oncology
DX: C91.00 Acute lymphoblastic leukemia not having achieved remission (principal); D50.9 Iron deficiency anemia, unspecified; I25.10 Atherosclerotic heart disease of native coronary artery without angina pectoris; I10 Essential (primary) hypertension; E11.43 Type 2 diabetes mellitus with diabetic autonomic (poly)neuropathy; E78.5 Hyperlipidemia, unspecified; Z79.4 Long term (current) use of insulin; Z79.899 Other long term (current) drug therapy; Z45.2 Encounter for adjustment and management of vascular access device
CPT/HCPCS: 36591; 80053; 83615; 85025

== ENCOUNTER → 2018-07-29 | Outpatient (RCR) | payer MEDICARE | END | disposition home or self-care (01) | LOC: CR3 06-29 06:00 | PROVIDERS: ATTEND Internal Medicine | DX: Z29.8 Encounter for other specified prophylactic measures (principal) ==

== ENCOUNTER → 2018-08-22 | Outpatient (CLI) | payer MEDICARE | LOC: CARD 08:56 | PROVIDERS: ATTEND Internal Medicine Cardiovascular Disease | DX: I25.10 Atherosclerotic heart disease of native coronary artery without angina pectoris (principal); I10 Essential (primary) hypertension; E78.5 Hyperlipidemia, unspecified; I34.0 Nonrheumatic mitral (valve) insufficiency | CPT/HCPCS: 93306 ==

== ENCOUNTER → 2018-09-02 | Outpatient (RCR) | payer MEDICARE | END | disposition home or self-care (01) | LOC: CR3 08-03 06:00 | PROVIDERS: ATTEND Internal Medicine | DX: Z29.8 Encounter for other specified prophylactic measures (principal) ==

== ENCOUNTER → 2018-10-05 | Outpatient (RCR) | payer MEDICARE | END | disposition home or self-care (01) | LOC: CR3 09-05 06:00 | PROVIDERS: ATTEND Internal Medicine | DX: Z29.8 Encounter for other specified prophylactic measures (principal) ==

== ENCOUNTER 2018-10-16 21:26 | Inpatient (IN) | payer MEDICARE | END 2018-10-19 14:00 | disposition home or self-care (01) | LOC: 4TH 10-18 11:35 → ICU 21:26 | DX: J44.1 Chronic obstructive pulmonary disease with (acute) exacerbation (principal); J44.0 Chronic obstructive pulmonary disease with (acute) lower respiratory infection; J20.9 Acute bronchitis, unspecified; C91.01 Acute lymphoblastic leukemia, in remission; I42.9 Cardiomyopathy, unspecified; Z95.1 Presence of aortocoronary bypass graft; J32.9 Chronic sinusitis, unspecified; E86.0 Dehydration; D64.9 Anemia, unspecified; I25.10 Atherosclerotic heart disease of native coronary artery without angina pectoris; I25.2 Old myocardial infarction; E78.00 Pure hypercholesterolemia, unspecified; I10 Essential (primary) hypertension; E11.40 Type 2 diabetes mellitus with diabetic neuropathy, unspecified; K21.9 Gastro-esophageal reflux disease without esophagitis; I65.23 Occlusion and stenosis of bilateral carotid arteries; D69.6 Thrombocytopenia, unspecified; K22.4 Dyskinesia of esophagus; M19.91 Primary osteoarthritis, unspecified site; Z87.891 Personal history of nicotine dependence; Z79.4 Long term (current) use of insulin; Z92.21 Personal history of antineoplastic chemotherapy; Z87.11 Personal history of peptic ulcer disease; Z86.79 Personal history of other diseases of the circulatory system; Z86.19 Personal history of other infectious and parasitic diseases; Z86.718 Personal history of other venous thrombosis and embolism; Z85.828 Personal history of other malignant neoplasm of skin ==

== ENCOUNTER → 2018-10-26 | Outpatient (CLI) | payer MEDICARE ==
[~2018-10-26] MED LIST changes: +ACID1GRA2 PO; +ALBU2.5V4 INH; +ATOR10TA PO; +AZIT250T12 PO; +FLUT16SP22 NS; +GALA8TAB PO; +GUAI473L PO; +LORA10TA7 PO; +METF-397 PO; +PRD10T PO; +SACU1TAB PO
--- NOTE | 2018-10-26 14:32 | Diagnostic Imaging Report ---
INDICATION: Cough, lower respiratory infection. PA and lateral chest. FINDINGS: There are postop changes from CABG surgery. Right subclavian Port-A-Cath tip projects over the SVC. Lungs are clear. There are no effusions or pneumothoraces. IMPRESSION: Postsurgical changes. No acute abnormality seen. Dictated by: Dictated on workstation # [id number]
== END ==
LOC: RAD 14:11
PROVIDERS: ATTEND Internal Medicine
DX: J22 Unspecified acute lower respiratory infection (principal); Z95.1 Presence of aortocoronary bypass graft
CPT/HCPCS: 71046

== ENCOUNTER 2018-10-31 09:15 | Outpatient (RCR) | payer MEDICARE ==
[~2018-10-31] VITALS: Ht 180.3 cm; Wt 74.8 kg
[~2018-10-31 09:15] MED LIST changes: +LOSA25TA41 PO; -LOSA25TA6 PO; +MIRT-47 PO; -MIRT15TA8 PO; -ROSU10TA PO; +ROSU10TA22 PO
[2018-10-31 09:21] VITALS: BP 115/55
--- NOTE | 2018-10-31 09:52 | Pulmonary Rehab Eval/Txmt Plan ---
Pulmonary Rehab Initial Eval Information Paper Evaluation Completed: Yes Date: Oct 31, 2018 Therapist: DALLAS LOZA Pulmonary Rehab Treatment Plan Treatment P Treatment Periord: Initial Diagnosis Diagnosis: J44.9 COPD Date: Oct 31, 2018 Assessment/Problems Exercise: Deconditioning Type: AEROBIC Frequency: 2 X WEEK Duration: 1 HR CLASS; EXERCISE PER PT'S TOLERANCE Barriers to Exercise: NONE Aerobic Exercise/Goals Freq: time per week minus HI: 2 MET Level=: 2 Type: Arm Ergometry, Bike, Scifi/Nustep, Treadmill ANITA PINO DO Oct 31, 2018 09:52
== END 2019-01-29 | disposition home or self-care (01) ==
LOC: PULM 09:15
PROVIDERS: ATTEND Internal Medicine
DX: J44.0 Chronic obstructive pulmonary disease with (acute) lower respiratory infection (principal); J20.9 Acute bronchitis, unspecified; J01.10 Acute frontal sinusitis, unspecified

== ENCOUNTER 2018-11-01 14:56 | Outpatient (RCR) | payer MEDICARE ==
[2018-09-01 15:07] LABS: BASOPHILS % (AUTO) 0 % (0-10); EOSINOPHILS # (AUTO) 0.2 10^3/uL (0.0-0.3); EOSINOPHILS % (AUTO) 3 % (0-10); HEMATOCRIT 35 % (40-54); LYMPHOCYTES % (AUTO) 31 % (12-44); MEAN CORPUSCULAR HEMOGLOBIN 32 PG (25-34); MEAN CORPUSCULAR HGB CONC 34 G/DL (32-36); MEAN CORPUSCULAR VOLUME 94 FL (80-99); MONOCYTES # (AUTO) 0.7 X 10^3 (0.0-1.0); MONOCYTES % (AUTO) 10 % (0-12); NEUTROPHILS # (AUTO) 3.7 X 10^3 (1.8-7.8); NEUTROPHILS % (AUTO) 56 % (42-75); PLATELET COUNT 163 10^3/uL (130-400); RED BLOOD COUNT 3.74 10^6/uL (4.35-5.85); RED CELL DISTRIBUTION WIDTH 13.5 % (10.0-14.5); WHITE BLOOD COUNT 6.5 10^3/uL (4.3-11.0)
[2018-09-01 15:26] LABS: ALANINE AMINOTRANSFERASE 15 U/L (0-55); ALBUMIN 4.1 GM/DL (3.2-4.5); ALKALINE PHOSPHATASE 91 U/L (40-136); BILIRUBIN,TOTAL 0.5 MG/DL (0.1-1.0); BUN/CREATININE RATIO 20; CALCIUM 9.1 MG/DL (8.5-10.1); CARBON DIOXIDE 21 MMOL/L (21-32); CHLORIDE 108 MMOL/L (98-107); CREATININE SERUM 0.98 MG/DL (0.60-1.30); GFR ESTIMATED > 60; GLUCOSE 175 MG/DL (70-105); POTASSIUM 4.1 MMOL/L (3.6-5.0); SODIUM 140 MMOL/L (135-145); TOTAL PROTEIN 7.2 GM/DL (6.4-8.2)
[~2018-11-01 14:56] MED LIST changes: -LOSA25TA41 PO; +LOSA25TA6 PO; -MIRT-47 PO; +MIRT15TA8 PO; +ROSU10TA PO; -ROSU10TA22 PO
[2018-11-01 15:22] LABS: BASOPHILS % (AUTO) 0 % (0-10); EOSINOPHILS % (AUTO) 0 % (0-10); HEMATOCRIT 36 % (40-54); HEMOGLOBIN 12.1 G/DL (13.3-17.7); LYMPHOCYTES # (AUTO) 1.6 X 10^3 (1.0-4.0); LYMPHOCYTES % (AUTO) 19 % (12-44); MEAN CORPUSCULAR HEMOGLOBIN 32 PG (25-34); MEAN CORPUSCULAR HGB CONC 34 G/DL (32-36); MEAN CORPUSCULAR VOLUME 94 FL (80-99); MONOCYTES # (AUTO) 0.5 X 10^3 (0.0-1.0); MONOCYTES % (AUTO) 6 % (0-12); NEUTROPHILS # (AUTO) 6.2 X 10^3 (1.8-7.8); NEUTROPHILS % (AUTO) 75 % (42-75); PLATELET COUNT 172 10^3/uL (130-400); RED BLOOD COUNT 3.81 10^6/uL (4.35-5.85); RED CELL DISTRIBUTION WIDTH 14.2 % (10.0-14.5); WHITE BLOOD COUNT 8.2 10^3/uL (4.3-11.0)
[2018-11-01 15:42] LABS: ALANINE AMINOTRANSFERASE 20 U/L (0-55); ALBUMIN 3.8 GM/DL (3.2-4.5); ALKALINE PHOSPHATASE 114 U/L (40-136); BILIRUBIN,TOTAL 0.5 MG/DL (0.1-1.0); BUN/CREATININE RATIO 24; CALCIUM 8.7 MG/DL (8.5-10.1); CARBON DIOXIDE 19 MMOL/L (21-32); CHLORIDE 107 MMOL/L (98-107); CREATININE SERUM 1.15 MG/DL (0.60-1.30); GFR ESTIMATED > 60; GLUCOSE 321 MG/DL (70-105); SODIUM 137 MMOL/L (135-145); TOTAL PROTEIN 6.6 GM/DL (6.4-8.2)
== END 2018-11-02 | disposition home or self-care (01) ==
LOC: ONC 14:56
PROVIDERS: ATTEND Internal Medicine Hematology & Oncology
DX: Z45.2 Encounter for adjustment and management of vascular access device (principal); C91.00 Acute lymphoblastic leukemia not having achieved remission
CPT/HCPCS: 36591; 80053; 83615; 85025; 96523

== ENCOUNTER 2018-11-04 06:27 | Outpatient (RCR) | payer MEDICARE | END 2018-11-06 | disposition home or self-care (01) | LOC: CR3 06:27 | PROVIDERS: ATTEND Internal Medicine | DX: Z29.8 Encounter for other specified prophylactic measures (principal) ==

== ENCOUNTER → 2018-11-29 | Outpatient (CLI) | payer MEDICARE ==
[~2018-11-29] MED LIST changes: +LOSA25TA41 PO; -LOSA25TA6 PO
[2018-11-29 10:04] LABS: BASOPHILS % (AUTO) 0 % (0-10); EOSINOPHILS % (AUTO) 1 % (0-10); HEMATOCRIT 33 % (40-54); HEMOGLOBIN 11.4 G/DL (13.3-17.7); LYMPHOCYTES # (AUTO) 1.5 X 10^3 (1.0-4.0); LYMPHOCYTES % (AUTO) 41 % (12-44); MEAN CORPUSCULAR HEMOGLOBIN 32 PG (25-34); MEAN CORPUSCULAR HGB CONC 35 G/DL (32-36); MEAN CORPUSCULAR VOLUME 91 FL (80-99); MEAN PLATELET VOLUME 9.4 FL (7.4-10.4); MONOCYTES # (AUTO) 0.4 X 10^3 (0.0-1.0); MONOCYTES % (AUTO) 11 % (0-12); NEUTROPHILS # (AUTO) 1.7 X 10^3 (1.8-7.8); NEUTROPHILS % (AUTO) 47 % (42-75); PLATELET COUNT 111 10^3/uL (130-400); WHITE BLOOD COUNT 3.6 10^3/uL (4.3-11.0)
== END ==
LOC: LAB 09:33
PROVIDERS: ATTEND Internal Medicine
DX: E11.9 Type 2 diabetes mellitus without complications (principal); R53.83 Other fatigue; I10 Essential (primary) hypertension
CPT/HCPCS: 36415; 84439; 85025

== ENCOUNTER → 2018-12-09 | Outpatient (RCR) | payer MEDICARE | END | disposition home or self-care (01) | LOC: CR3 11-09 06:00 | PROVIDERS: ATTEND Internal Medicine | DX: Z29.8 Encounter for other specified prophylactic measures (principal) ==

== ENCOUNTER → 2019-01-11 | Outpatient (RCR) | payer MEDICARE ==
[~2019-01-11] MED LIST changes: +MIRT-47 PO; -MIRT15TA8 PO; -ROSU10TA PO; +ROSU10TA22 PO
== END | disposition home or self-care (01) ==
LOC: CR3 12-12 06:00
PROVIDERS: ATTEND Internal Medicine
DX: Z29.8 Encounter for other specified prophylactic measures (principal)

== ENCOUNTER 2019-01-31 12:20 | Outpatient (RCR) | payer MEDICARE ==
[2018-12-13 09:28] LABS: BASOPHILS % (AUTO) 0 % (0-10); EOSINOPHILS # (AUTO) 0.1 10^3/uL (0.0-0.3); EOSINOPHILS % (AUTO) 2 % (0-10); HEMATOCRIT 33 % (40-54); HEMOGLOBIN 11.6 G/DL (13.3-17.7); LYMPHOCYTES # (AUTO) 1.4 X 10^3 (1.0-4.0); LYMPHOCYTES % (AUTO) 31 % (12-44); MEAN CORPUSCULAR HEMOGLOBIN 32 PG (25-34); MEAN CORPUSCULAR HGB CONC 35 G/DL (32-36); MEAN CORPUSCULAR VOLUME 93 FL (80-99); MEAN PLATELET VOLUME 9.1 FL (7.4-10.4); MONOCYTES # (AUTO) 0.5 X 10^3 (0.0-1.0); MONOCYTES % (AUTO) 10 % (0-12); NEUTROPHILS # (AUTO) 2.5 X 10^3 (1.8-7.8); NEUTROPHILS % (AUTO) 57 % (42-75); PLATELET COUNT 176 10^3/uL (130-400); RED CELL DISTRIBUTION WIDTH 14.5 % (10.0-14.5); WHITE BLOOD COUNT 4.5 10^3/uL (4.3-11.0)
[2018-12-13 09:42] LABS: CALCIUM 9.2 MG/DL (8.5-10.1); CREATININE SERUM 1.25 MG/DL (0.60-1.30); POTASSIUM 4.7 MMOL/L (3.6-5.0)
[2019-01-03 15:28] LABS: BASOPHILS % (AUTO) 0 % (0-10); EOSINOPHILS # (AUTO) 0.2 10^3/uL (0.0-0.3); EOSINOPHILS % (AUTO) 3 % (0-10); HEMATOCRIT 35 % (40-54); LYMPHOCYTES # (AUTO) 1.8 X 10^3 (1.0-4.0); LYMPHOCYTES % (AUTO) 30 % (12-44); MEAN CORPUSCULAR HEMOGLOBIN 32 PG (25-34); MEAN CORPUSCULAR HGB CONC 34 G/DL (32-36); MEAN CORPUSCULAR VOLUME 94 FL (80-99); MEAN PLATELET VOLUME 9.1 FL (7.4-10.4); MONOCYTES # (AUTO) 0.7 X 10^3 (0.0-1.0); MONOCYTES % (AUTO) 12 % (0-12); NEUTROPHILS # (AUTO) 3.4 X 10^3 (1.8-7.8); NEUTROPHILS % (AUTO) 56 % (42-75); PLATELET COUNT 168 10^3/uL (130-400); RED CELL DISTRIBUTION WIDTH 13.7 % (10.0-14.5); WHITE BLOOD COUNT 6.2 10^3/uL (4.3-11.0)
[2019-01-03 15:39] LABS: ALANINE AMINOTRANSFERASE 13 U/L (0-55); ALBUMIN 4.1 GM/DL (3.2-4.5); ALKALINE PHOSPHATASE 93 U/L (40-136); BILIRUBIN,TOTAL 0.5 MG/DL (0.1-1.0); BUN/CREATININE RATIO 21; CALCIUM 8.9 MG/DL (8.5-10.1); CARBON DIOXIDE 23 MMOL/L (21-32); CHLORIDE 105 MMOL/L (98-107); CREATININE SERUM 1.15 MG/DL (0.60-1.30); GFR ESTIMATED > 60; GLUCOSE 260 MG/DL (70-105); POTASSIUM 4.3 MMOL/L (3.6-5.0); SODIUM 139 MMOL/L (135-145); TOTAL PROTEIN 6.7 GM/DL (6.4-8.2)
[2019-02-24] MEDS ORDERED: INSU100I10 SC (09:09)
[2019-02-24] MEDS ORDERED: DEXT-319 PO (09:09)
== END 2019-02-27 | disposition home or self-care (01) ==
LOC: ONC 12:20
PROVIDERS: ATTEND Internal Medicine Hematology & Oncology
DX: C91.00 Acute lymphoblastic leukemia not having achieved remission (principal); Z45.2 Encounter for adjustment and management of vascular access device
CPT/HCPCS: 36415; 36591; 80048; 80053; 82784; 83036; 83615; 84439; 84443; 85025; 96523

== ENCOUNTER 2019-02-10 06:23 | Outpatient (RCR) | payer MEDICARE | END 2019-02-12 | disposition home or self-care (01) | LOC: CR3 06:23 | PROVIDERS: ATTEND Internal Medicine | DX: Z29.8 Encounter for other specified prophylactic measures (principal) ==

== ENCOUNTER 2019-02-24 07:03 | Observation (INO) | payer MEDICARE ==
[2019-02-24] MEDS ORDERED: NS IV 1000 ML 1,000 ML IV SCH (07:09)
[2019-02-24] MEDS ORDERED: NS IV 1000 ML 500 ML IV SCH (07:15)
--- OUTSIDE RECORDS SUMMARY | 2019-02-24 07:31 | XMS REPORT | Clinical Summary ---
Author Author [facility] Organization [facility] Address Unknown Phone Unavailable Care Team Providers Care Installation Engineer Name Role Phone Faina Lan RN Unavailable Unavailable Brigid Briggs RN Unavailable Unavailable Primo Ruiz MD Unavailable Priscilla Heaton PHARMD Unavailable Unavailable MauricioSandraPerry DO Unavailable Mac Rosalinda DO PCP Unavailable Kyra Pimentel PHARMD Unavailable Unavailable Source Comments Some departments are not documenting in the electronic medical record. If you do not see the information that you expected, contact Release of Information in the Health Information Management department at [phone] for further assistance in locating additional records.[facility] Allergies No Known Allergies Medications End Date Status Medication Sig Dispensed Refills Start Date Active ondansetron (ZOFRAN) 4 mg Take 1 Tab by 30 Tab 0 tablet mouth every 6 5 hours as needed for Nausea. Active rosuvastatin (CRESTOR) 10 Take 1 Tab by 90 Tab 3 mg tablet mouth daily. 5 Active albuterol (VENTOLIN HFA, Inhale 2 3 Inhaler 3 PROAIR HFA) 90 Puffs by 5 mcg/actuation inhaler mouth every 6 hours as needed for Wheezing. Active fluticasone-salmeterol Inhale 1 Puff 3 Inhaler 3 (ADVAIR DISKUS) 250-50 by mouth 5 mcg inhalation disk twice daily. Active docusate (COLACE) 100 mg Take 1 Cap by 180 Cap 3 capsule mouth daily 5 as needed for Constipation. Active insulin aspart (NOVOLOG) Inject 0-14 3 box 3 100 unit/mL flexPEN Units into 5 area(s) as directed before meals and at bedtime. Active melatonin 5 mg tab Take 1 Tab by 0 mouth at 5 bedtime daily. Active metoclopramide HCl 1 Tab before 60 Tab 3 (REGLAN) 5 mg tablet meals and at 5 bedtime. Take 1-2 tabs before meals and at bedtime Active milk of magnesia (CONC) Take 10 mL by 0 2,400 mg/10 mL oral mouth every 6 5 suspension hours as needed. Active omeprazole DR(+) Take 1 Cap by 90 Cap 3 (PRILOSEC) 20 mg capsule mouth twice 5 daily. Active polyethylene glycol 3350 Take 17 g by 3 Bottle 3 (GLYCOLAX; MIRALAX) 17 mouth daily 5 gram/dose powder as needed. Active saliva, synthetic Take 1 [place] 0 (MOUTHKOTE) spra by mouth or 5 throat as directed as Needed. Active sertraline (ZOLOFT) 50 mg Take 1 Tab by 90 Tab 3 tablet mouth at 5 bedtime daily. Active 0.9 % SODIUM CHLORIDE Administer 90 Syringe 0 (SODIUM CHLORIDE PF 0.9%) 5-20 mL 5 0.9 % flush through vein FLUSH TID. Active oxyCODONE-acetaminophen Take 1-2 Tabs 30 Tab 0 (PERCOCET; ENDOCET; by mouth 5 ROXICET) 5-325 mg tablet every 4 hours as needed for Pain Earliest Fill Date: 06/06/15 Active insulin lispro(+) Inject 8 0 (HUMALOG) 100 unit/mL Units into injection area(s) as directed three times daily before meals. Active carvedilol (COREG) 3.125 Take 3.125 mg 0 mg tablet by mouth twice daily with meals. Active lisinopril (PRINIVIL; Take 5 mg by 0 ZESTRIL) 5 mg tablet mouth daily. Active terbinafine(+) (LAMISIL Apply to top 0 AT) 1 % topical cream of skin as directed twice daily. Active methylphenidate (RITALIN; Take 5 mg by 0 METHYLIN) 5 mg tablet mouth twice daily before meals Active mirtazapine (REMERON) 15 Take 15 mg by 0 mg tablet mouth at bedtime daily. Active dronabinol (MARINOL) 2.5 Take 2.5 mg 0 mg capsule by mouth twice daily. Active trimethoprim-sulfamethoxa Take 1 Tab by 12 Tab 3 zole (BACTRIM DS) 160-800 mouth three 5 mg tablet times weekly. Active acyclovir (ZOVIRAX) 200 Take 1 Cap by 30 Cap 2 mg capsule mouth daily. 5 Active methotrexate 2.5 mg Take 7 Tabs 21 Tab 0 tabletIndications: ALL by mouth 5 (acute lymphoblastic every leukemia) (HCC), Acute Wednesday. leukemia (HCC) Active mercaptopurine Take 1.5 Tabs 20 Tab 0 (PURINETHOL) 50 mg tablet by mouth 5 every 48 hours. CYTOTOXIC Take on an empty stomach, at least 1 hour before or 2 hours after food. Active insulin glargine (LANTUS Inject 10 3 box 3 SOLOSTAR) 100 unit/mL (3 Units into 5 mL) injection PEN area(s) as directed at bedtime daily. 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 Hypokalemia 05/18/2015 DIC (disseminated intravascular coagulation) 05/15/2015 IDDM (insulin dependent diabetes mellitus) 05/15/2015 Hypomagnesemia 05/15/2015 GERD (gastroesophageal reflux disease) 05/15/2015 Constipation 05/15/2015 Admission for antineoplastic chemotherapy 05/15/2015 Bilateral edema of lower extremity 05/15/2015 Acute leukemia 05/09/2015 Anemia 05/09/2015 Resolved Problems Problem Noted Date Resolved Date Pancytopenia 05/09/2015 07/02/2015 Family History Medical History Relation Name Comments Hypertension Father Relation Name Status Comments Father Social History Date Tobacco Use Types Packs/Day Years Used Quit: 10/18/1974 Former Smoker Cigarettes Smokeless Tobacco: Never Used Alcohol Use Drinks/Week oz/Week Comments Yes moderate Sex Assigned at Date Recorded Not on file Industry Job Start Date Occupation Not on file Not on file Not on file Travel End Travel History Travel Start No recent travel history available. Last Filed Vital Signs Time Taken Vital Sign Reading 07/05/2015 11:15 AM CDT Blood Pressure 108/58 07/05/2015 11:15 AM CDT Pulse 74 07/05/2015 11:15 AM CDT Temperature 36.6 C (97.8 F) - Respiratory Rate - 07/05/2015 11:15 AM CDT Oxygen Saturation 99% - Inhaled Oxygen - Concentration 07/05/2015 3:00 AM CDT Weight 64.4 kg (142 lb) 07/01/2015 4:33 PM CDT Height 180.3 cm (5' 10.98") 07/01/2015 4:33 PM CDT Body Mass Index 19.81 Plan of Treatment Health Maintenance Due Date Last Done Comments PHYSICAL (COMPREHENSIVE) 1947 EXAM DTAP/TDAP VACCINES (1 - 1958 Tdap) SHINGLES RECOMBINANT 1990 VACCINE (1 of 2) PNEUMONIA (PCV13/PPSV23) 2005 VACCINES (1 of 2 - PCV13) INFLUENZA VACCINE 07/18/2019 Results Not on filefrom Last 3 Months Insurance Type Payer Benefit Subscriber ID Effective Phone Address Plan / Dates Group Medicare MEDICARE MEDICARE xxxxxxxxxx 2005- PART A AND Present B [id number] SUPPLEMENT resent Advance Directives Patient has advance care planning documents, and code status on file. For more information, please contact: [facility] [address] [place] [address] Date Inactivated Comments Code Status Date Activated 07/05/2015 3:33 PM Full Code 07/01/2015 12:03 PM Provider has discussed Code Status No, more discussion w/Patient or Family? needed 06/06/2015 4:49 PM Full Code 05/10/2015 6:29 AM Provider has discussed Code Status Yes w/Patient or Family? 05/10/2015 6:29 AM Full Code 05/09/2015 4:57 PM Provider has discussed Code Status No, more discussion w/Patient or Family? needed
--- NOTE | 2019-02-24 09:06 | Consultation-Cardiology ---
HPI-Cardiology Cardiology Consultation Date of Consultation 02/24/19 Date of Admission Time Seen by Provider: 09:04 Indication: near syncope HPI 78 years old gentleman with history of coronary artery disease, has been doing well until this morning, went to cardiac rehabilitation, during exercise he became hypotensive, became lethargic, lightheaded, no full syncope was reported , reported to have blood pressure in the 80s systolic. Patient was admitted for observation and started on IV fluid. Upper my evaluation he was feeling better. Denied any chest pain, no dizziness, blood pressure is better. Home Medications & Allergies Allergies: Coded Allergies: No Known Drug Allergies (Verified , 09/19/08) Home Medication List Reviewed: Yes medication list reviewed from office records, did not take his morning medicine yet [id number]-[id number]-[id number] Hx Patient Social History Marital Status: Employed/Student: retired Former smoker/When Quit: Jul 26, 1985 Recent Hopitalizations: No Immunizations Up To Date Tetanus Booster (TDap): Less than 5yrs Date of Pneumonia Vaccine: Aug 29, 2018 Date of Influenza Vaccine: Aug 29, 2018 Past Medical History discussed below Family Medical History Significant Family History: Heart Disease, CAD Over 55 Years Old, Diabetes, Hypertension, Vascular Disease Family History: Cardiovascular disease G8 BROTHER Diabetes mellitus 19 MOTHER G8 BROTHER Hypertension 19 MOTHER Review of Systems Constitutional: see HPI, malaise, weakness EENTM: see HPI, no symptoms reported Respiratory: no symptoms reported, see HPI Cardiovascular: no symptoms reported, see HPI Gastrointestinal: no symptoms reported, see HPI Genitourinary: no symptoms reported, see HPI Musculoskeletal: no symptoms reported, see HPI Skin: no symptoms reported, see HPI Psychiatric/Neurological: No Symptoms Reported, See HPI Physical Exam Vital Signs Capillary Refill : Height, Weight, BMI Height: 5'11.00" Weight: 165lbs. 5.0oz. 74.993418bi; 23.0 BMI Method:Stated General Appearance: No Apparent Distress, WD/WN Eyes: Bilateral Eye Normal Inspection, Bilateral Eye PERRL, Bilateral Eye EOMI HEENT: PERRL/EOMI, TMs Normal, Normal ENT Inspection, Pharynx Normal Neck: Full Range of Motion, Normal Inspection, Non Tender, Supple, Carotid Bruit Respiratory: Chest Non Tender, Lungs Clear, Normal Breath Sounds, No Accessory Muscle Use, No Respiratory Distress Cardiovascular: Regular Rate, Rhythm, No Edema, No Gallop, No JVD, Normal Peripheral Pulses, Systolic Murmur Gastrointestinal: Normal Bowel Sounds, No Organomegaly, No Pulsatile Mass, Non Tender, Soft Back: Normal Inspection, No CVA Tenderness, No Vertebral Tenderness Extremity: Normal Capillary Refill, Normal Inspection, Normal Range of Motion, Non Tender, No Calf Tenderness, No Pedal Edema Neurologic/Psychiatric: Alert, Oriented x3, No Motor/Sensory Deficits, Normal Mood/Affect Skin: Normal Color, Warm/Dry Lymphatic: No Adenopathy A/P-Cardiology Admission Diagnosis Near-syncope Orthostatic hypotension Coronary artery disease Diabetes mellitus Assessment/Plan Orthostatic dizziness, near syncope and hypotension. Admitted to the hospital and started on IV fluid, evaluate CBC and CMP. Monitor blood pressure, currently feeling better. History of mild bilateral carotid stenosis, last ultrasound was done in March 2018. Continue to monitor. Coronary artery disease status post CABG x3 in 2004, cardiac catheterization in April 2014 which showed patent bypass grafts with small vessel disease distally mainly in the LAD system that was receiving retrograde collateral, treated conservatively. Cardiac catheterization was done on November 07, 2014 showing small vessel disease, patent MAHONEY to LAD, vein graft to the circumflex artery and vein graft to the right coronary artery, repeat cardiac catheterization was done in August 2016 showing patent MAHONEY to LAD, vein graft to the obtuse marginal branch with sluggish flow in the [place] circumflex artery, patent vein graft to the right coronary artery, the proximal [place] coronary arteries appear slightly worse with occlusion of the left main, the LAD and diagonal artery are getting collaterals from the right system. He has been asymptomatic. Continue to monitor. History of esophageal spasm, EGD by Dr. Manzanares , reporting improvement. 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 Nettles, continue to monitor. No changes are recommended Congestive heart failure, chronic compensated left ventricle systolic dysfunction, ejection fraction 30 percent. Secondary to coronary artery disease and chemotherapy. Maintained on Entresto. Most recent 2-D echocardiogram done August 2018 showed improvement of EF to 50-55 percent. Continue current medication. Anemia, followed by Dr. Watts and Dr. Perez. 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 Nettles. Hypertension, controlled on current medication, continue to monitor Hyperlipidemia, continue to monitor lipids. Managed by Dr. Watts. Diabetes mellitus, managed and followed by primary care physician. History of atrial flutter status post ablation in 2004, currently in sinus rhythm. Continue to monitor CHRISTOPHER TANG MD February 24, 2019 09:06
[2019-02-24] MEDS ORDERED: INSU100I10 SC (09:09)
[2019-02-24] MEDS ORDERED: DEXT-319 PO (09:09)
[2019-02-24 09:39] LABS: BASOPHILS % (AUTO) 0 % (0-10); EOSINOPHILS # (AUTO) 0.2 10^3/uL (0.0-0.3); EOSINOPHILS % (AUTO) 4 % (0-10); HEMATOCRIT 36 % (40-54); HEMOGLOBIN 12.4 G/DL (13.3-17.7); LYMPHOCYTES # (AUTO) 1.8 X 10^3 (1.0-4.0); LYMPHOCYTES % (AUTO) 37 % (12-44); MEAN CORPUSCULAR HEMOGLOBIN 32 PG (25-34); MEAN CORPUSCULAR HGB CONC 35 G/DL (32-36); MEAN CORPUSCULAR VOLUME 92 FL (80-99); MONOCYTES # (AUTO) 0.6 X 10^3 (0.0-1.0); MONOCYTES % (AUTO) 13 % (0-12); NEUTROPHILS # (AUTO) 2.2 X 10^3 (1.8-7.8); NEUTROPHILS % (AUTO) 46 % (42-75); PLATELET COUNT 146 10^3/uL (130-400); RED CELL DISTRIBUTION WIDTH 13.1 % (10.0-14.5); WHITE BLOOD COUNT 4.8 10^3/uL (4.3-11.0)
[2019-02-24 09:58] LABS: ALANINE AMINOTRANSFERASE 15 U/L (0-55); ALKALINE PHOSPHATASE 87 U/L (40-136); BILIRUBIN,TOTAL 0.5 MG/DL (0.1-1.0); BUN/CREATININE RATIO 19; CALCIUM 9.4 MG/DL (8.5-10.1); CARBON DIOXIDE 22 MMOL/L (21-32); CHLORIDE 108 MMOL/L (98-107); CREATININE SERUM 0.93 MG/DL (0.60-1.30); GFR ESTIMATED > 60; GLUCOSE 208 MG/DL (70-105); MAGNESIUM 1.6 MG/DL (1.8-2.4); POTASSIUM 4.6 MMOL/L (3.6-5.0); SODIUM 139 MMOL/L (135-145); TOTAL PROTEIN 6.5 GM/DL (6.4-8.2)
--- NOTE | 2019-02-24 11:00 | Short Stay Summary-Hospitalist ---
History of Present Illness HPI/Chief Complaint CC: Hypotension HPI: This is a very medically complex 78yoWM who presented to room 422 as a direct admit due to hypotension with dizziness which occurred at cardiac rehab. Patient was admitted and given IVF gently with good results. Dr Foreman was consulted and all labs reviewed revealing no significant finding. Patient was feeling well at time of DC and he was DC 4 hours after admitted. Source: patient Exam Limitations: no limitations Date Seen 02/24/19 Time Seen by a Provider: 09:00 Attending Physician Rosalinda Watts DO PCP Rosalinda Watts DO Referring Physician Date of Admission February 24, 2019 at 07:20 Home Medications & Allergies Home Medications Reviewed patient Home Medication Reconciliation performed by pharmacy medication reconciliations respiratory support technician and/or nursing. Patients Allergies have been reviewed. 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 Alcohol Beverage of Choice: Beer Smoking Status: Former Smoker Former Smoker, Quit: Jul 26, 1985 Recent Hopitalizations: No Immunizations Up To Date Tetanus Booster (TDap): Less than 5yrs Pediatric: No Date of Pneumonia Vaccine: Aug 29, 2018 Date of Influenza Vaccine: Aug 29, 2018 Seasonal Allergies Seasonal Allergies: No Past Medical History Surgeries: Abdominal, CABG, Gallbladder, Open Heart Surgery Respiratory: COPD, Pneumonia Currently Using CPAP: No Currently Using BIPAP: No Cardiac: Atrial Fibrillation, Coronary Artery Disease, Heart Attack, High Cholesterol, Hypertension Neurological: Neuropathy Reproductive: No Sexually Transmitted Disease: No HIV/AIDS: No Genitourinary: Prostate Problems, Renal Failure Gastrointestinal: Gastroesophageal Reflux, Gastrointestinal Bleed Musculoskeletal: Arthritis Endocrine: Diabetes, Insulin dep HEENT: Cataract Cancer: Leukemia, Skin Did You Recieve Any Treatments: Yes What Type of Treatment Did You: Chemotherapy History of Blood Disorders: Yes (LEUKEMIA) Adverse Reaction to Blood Vargas: No Family History Cardiovascular disease G8 BROTHER Diabetes mellitus 19 MOTHER G8 BROTHER Hypertension 19 MOTHER Heart Disease, CAD Over 55 Years Old, Diabetes, Hypertension, Vascular Disease Review of Systems Constitutional: dizziness, malaise, weakness EENTM: no symptoms reported Respiratory: no symptoms reported Cardiovascular: no symptoms reported Gastrointestinal: no symptoms reported Genitourinary: no symptoms reported Musculoskeletal: no symptoms reported Skin: no symptoms reported Psychiatric/Neurological: No Symptoms Reported All Other Systems Reviewed Negative Unless Noted: Yes Physical Exam Physical Exam Vital Signs Vital Signs - First Documented Capillary Refill : Height, Weight, BMI Height: 5'11.00" Weight: 165lbs. 5.0oz. 74.186445dn; 23.0 BMI Method:Stated General Appearance: No Apparent Distress, WD/WN Eyes: Bilateral Eye Normal Inspection, Bilateral Eye PERRL, Bilateral Eye EOMI HEENT: PERRL/EOMI, TMs Normal, Normal ENT Inspection, Pharynx Normal Neck: Full Range of Motion, Normal Inspection, Non Tender, Supple, Carotid Bruit Respiratory: Chest Non Tender, Lungs Clear, Normal Breath Sounds, No Accessory Muscle Use, No Respiratory Distress Cardiovascular: Regular Rate, Rhythm, No Edema, No Gallop, No JVD, Normal Peripheral Pulses, Systolic Murmur Gastrointestinal: Normal Bowel Sounds, No Organomegaly, No Pulsatile Mass, Non Tender, Soft Back: Normal Inspection, No CVA Tenderness, No Vertebral Tenderness Extremity: Normal Capillary Refill, Normal Inspection, Normal Range of Motion, Non Tender, No Calf Tenderness, No Pedal Edema Neurologic/Psychiatric: Alert, Oriented x3, No Motor/Sensory Deficits, Normal Mood/Affect Skin: Normal Color, Warm/Dry Lymphatic: No Adenopathy Results Results/Procedures Labs Laboratory Tests 02/24/19 09:15 Patient resulted labs reviewed. Short Stay Diagnosis Discharge Diagnosis-Short Stay Admission Diagnosis Hypotension Dizziness CAD CABG hx HTN HLP ALL remission Final Discharge Diagnosis Hypotension Dizziness CAD CABG hx HTN HLP ALL remission Elevated BNP in h/o cardiomyopathy Conclusion Plan DC home Monitor BP Diagnosis/Problems Diagnosis/Problems (1) Dehydration, moderate Status: Resolved Resolution Date/Time: 10/18/18 @ 12:41 ROSALINDA WATTS DO February 24, 2019 11:00
== END 2019-02-24 11:22 | disposition home or self-care (01) ==
LOC: 4TH 07:20
PROVIDERS: ADMIT Internal Medicine; ATTEND Internal Medicine
DX: I95.1 Orthostatic hypotension (principal); R42 Dizziness and giddiness; E86.0 Dehydration; I25.10 Atherosclerotic heart disease of native coronary artery without angina pectoris; C91.91 Lymphoid leukemia, unspecified, in remission; I11.0 Hypertensive heart disease with heart failure; I50.22 Chronic systolic (congestive) heart failure; E78.5 Hyperlipidemia, unspecified; J44.9 Chronic obstructive pulmonary disease, unspecified; I48.91 Unspecified atrial fibrillation; E78.00 Pure hypercholesterolemia, unspecified; I25.2 Old myocardial infarction; K21.9 Gastro-esophageal reflux disease without esophagitis; E11.40 Type 2 diabetes mellitus with diabetic neuropathy, unspecified; I65.23 Occlusion and stenosis of bilateral carotid arteries; D64.9 Anemia, unspecified; Z86.718 Personal history of other venous thrombosis and embolism; Z79.4 Long term (current) use of insulin; Z85.828 Personal history of other malignant neoplasm of skin; Z95.1 Presence of aortocoronary bypass graft; Z87.891 Personal history of nicotine dependence; Z92.21 Personal history of antineoplastic chemotherapy; Z87.01 Personal history of pneumonia (recurrent)
CPT/HCPCS: 36415; 80053; 83605; 83735; 83880; 84484; 85025; 87040; 99211; G0378

== ENCOUNTER → 2019-03-15 | Outpatient (RCR) | payer MEDICARE ==
[~2019-03-15] MED LIST changes: +DEXT-319 PO; +INSU100I10 SC
== END | disposition home or self-care (01) ==
LOC: CR3 02-13 06:00
PROVIDERS: ATTEND Internal Medicine
DX: Z29.8 Encounter for other specified prophylactic measures (principal)

== ENCOUNTER 2019-04-12 06:25 | Outpatient (RCR) | payer MEDICARE | END 2019-04-16 | disposition home or self-care (01) | LOC: CR3 06:25 | PROVIDERS: ATTEND Internal Medicine | DX: Z29.8 Encounter for other specified prophylactic measures (principal) ==

== ENCOUNTER 2019-04-26 09:54 | Outpatient (RCR) | payer MEDICARE ==
[2019-03-01 11:12] LABS: BASOPHILS % (AUTO) 0 % (0-10); EOSINOPHILS # (AUTO) 0.2 10^3/uL (0.0-0.3); EOSINOPHILS % (AUTO) 3 % (0-10); HEMATOCRIT 34 % (40-54); HEMOGLOBIN 11.8 G/DL (13.3-17.7); LYMPHOCYTES # (AUTO) 1.9 X 10^3 (1.0-4.0); LYMPHOCYTES % (AUTO) 31 % (12-44); MEAN CORPUSCULAR HEMOGLOBIN 32 PG (25-34); MEAN CORPUSCULAR HGB CONC 35 G/DL (32-36); MEAN CORPUSCULAR VOLUME 92 FL (80-99); MEAN PLATELET VOLUME 8.6 FL (7.4-10.4); MONOCYTES # (AUTO) 0.8 X 10^3 (0.0-1.0); MONOCYTES % (AUTO) 13 % (0-12); NEUTROPHILS # (AUTO) 3.4 X 10^3 (1.8-7.8); NEUTROPHILS % (AUTO) 54 % (42-75); PLATELET COUNT 160 10^3/uL (130-400); RED CELL DISTRIBUTION WIDTH 13.4 % (10.0-14.5); WHITE BLOOD COUNT 6.2 10^3/uL (4.3-11.0)
[2019-03-01 11:35] LABS: ALANINE AMINOTRANSFERASE 17 U/L (0-55); ALKALINE PHOSPHATASE 85 U/L (40-136); BILIRUBIN,TOTAL 0.4 MG/DL (0.1-1.0); BUN/CREATININE RATIO 21; CALCIUM 8.9 MG/DL (8.5-10.1); CARBON DIOXIDE 22 MMOL/L (21-32); CHLORIDE 105 MMOL/L (98-107); CREATININE SERUM 1.03 MG/DL (0.60-1.30); GFR ESTIMATED > 60; GLUCOSE 262 MG/DL (70-105); POTASSIUM 4.5 MMOL/L (3.6-5.0); SODIUM 135 MMOL/L (135-145); TOTAL PROTEIN 6.5 GM/DL (6.4-8.2)
[~2019-04-26 09:54] MED LIST changes: +OMEP20CA13 PO
[2019-04-26 10:10] LABS: BASOPHILS % (AUTO) 0 % (0-10); EOSINOPHILS # (AUTO) 0.3 10^3/uL (0.0-0.3); EOSINOPHILS % (AUTO) 5 % (0-10); HEMATOCRIT 34 % (40-54); HEMOGLOBIN 11.6 G/DL (13.3-17.7); LYMPHOCYTES # (AUTO) 1.7 X 10^3 (1.0-4.0); LYMPHOCYTES % (AUTO) 31 % (12-44); MEAN CORPUSCULAR HEMOGLOBIN 32 PG (25-34); MEAN CORPUSCULAR HGB CONC 34 G/DL (32-36); MEAN CORPUSCULAR VOLUME 93 FL (80-99); MEAN PLATELET VOLUME 8.5 FL (7.4-10.4); MONOCYTES # (AUTO) 0.7 X 10^3 (0.0-1.0); MONOCYTES % (AUTO) 12 % (0-12); NEUTROPHILS # (AUTO) 2.9 X 10^3 (1.8-7.8); NEUTROPHILS % (AUTO) 52 % (42-75); PLATELET COUNT 164 10^3/uL (130-400); RED CELL DISTRIBUTION WIDTH 13.7 % (10.0-14.5); WHITE BLOOD COUNT 5.6 10^3/uL (4.3-11.0)
[2019-04-26 10:31] LABS: ALANINE AMINOTRANSFERASE 13 U/L (0-55); ALBUMIN 4.1 GM/DL (3.2-4.5); ALKALINE PHOSPHATASE 83 U/L (40-136); BILIRUBIN,TOTAL 0.6 MG/DL (0.1-1.0); BUN/CREATININE RATIO 20; CALCIUM 9.1 MG/DL (8.5-10.1); CARBON DIOXIDE 23 MMOL/L (21-32); CHLORIDE 103 MMOL/L (98-107); CREATININE SERUM 1.11 MG/DL (0.60-1.30); GFR ESTIMATED > 60; GLUCOSE 202 MG/DL (70-105); POTASSIUM 4.4 MMOL/L (3.6-5.0); SODIUM 136 MMOL/L (135-145); TOTAL PROTEIN 6.7 GM/DL (6.4-8.2)
== END 2019-05-30 | disposition home or self-care (01) ==
LOC: ONC 09:54
PROVIDERS: ATTEND Internal Medicine Hematology & Oncology
DX: C91.00 Acute lymphoblastic leukemia not having achieved remission (principal); D50.9 Iron deficiency anemia, unspecified; I25.10 Atherosclerotic heart disease of native coronary artery without angina pectoris; I10 Essential (primary) hypertension; E11.43 Type 2 diabetes mellitus with diabetic autonomic (poly)neuropathy; E78.5 Hyperlipidemia, unspecified; Z79.4 Long term (current) use of insulin; Z79.899 Other long term (current) drug therapy
CPT/HCPCS: 36591; 80053; 83615; 85025; 96523

== ENCOUNTER → 2019-05-17 | Outpatient (RCR) | payer MEDICARE ==
[~2019-05-17] MED LIST changes: -OMEP20CA13 PO
== END | disposition home or self-care (01) ==
LOC: CR3 04-17 06:00
PROVIDERS: ATTEND Internal Medicine
DX: Z29.8 Encounter for other specified prophylactic measures (principal)

== ENCOUNTER 2019-06-16 06:37 | Outpatient (RCR) | payer MEDICARE | END 2019-06-18 | disposition home or self-care (01) | LOC: CR3 06:37 | PROVIDERS: ATTEND Internal Medicine | DX: Z29.8 Encounter for other specified prophylactic measures (principal) ==

== ENCOUNTER → 2019-06-16 | Outpatient (CLI) | payer MEDICARE ==
[~2019-06-16] MED LIST changes: +OMEP20CA13 PO
[2019-06-16 08:54] LABS: BASOPHILS % (AUTO) 0 % (0-10); EOSINOPHILS # (AUTO) 0.2 10^3/uL (0.0-0.3); EOSINOPHILS % (AUTO) 3 % (0-10); HEMATOCRIT 35 % (40-54); LYMPHOCYTES # (AUTO) 1.9 X 10^3 (1.0-4.0); LYMPHOCYTES % (AUTO) 35 % (12-44); MEAN CORPUSCULAR HEMOGLOBIN 32 PG (25-34); MEAN CORPUSCULAR HGB CONC 34 G/DL (32-36); MEAN CORPUSCULAR VOLUME 94 FL (80-99); MEAN PLATELET VOLUME 8.9 FL (7.4-10.4); MONOCYTES # (AUTO) 0.6 X 10^3 (0.0-1.0); MONOCYTES % (AUTO) 11 % (0-12); NEUTROPHILS # (AUTO) 2.7 X 10^3 (1.8-7.8); NEUTROPHILS % (AUTO) 50 % (42-75); PLATELET COUNT 154 10^3/uL (130-400); RED CELL DISTRIBUTION WIDTH 13.5 % (10.0-14.5); WHITE BLOOD COUNT 5.5 10^3/uL (4.3-11.0)
[2019-06-16 09:16] LABS: ALANINE AMINOTRANSFERASE 12 U/L (0-55); ALKALINE PHOSPHATASE 76 U/L (40-136); BILIRUBIN,TOTAL 0.5 MG/DL (0.1-1.0); BUN/CREATININE RATIO 17; CALCIUM 8.8 MG/DL (8.5-10.1); CARBON DIOXIDE 20 MMOL/L (21-32); CHLORIDE 105 MMOL/L (98-107); CREATININE SERUM 1.07 MG/DL (0.60-1.30); GFR ESTIMATED > 60; GLUCOSE 177 MG/DL (70-105); POTASSIUM 4.7 MMOL/L (3.6-5.0); SODIUM 138 MMOL/L (135-145); TOTAL PROTEIN 6.7 GM/DL (6.4-8.2)
== END ==
LOC: LAB 08:38
PROVIDERS: ATTEND Internal Medicine
DX: Z00.00 Encounter for general adult medical examination without abnormal findings (principal); N39.0 Urinary tract infection, site not specified; E78.1 Pure hyperglyceridemia; R53.83 Other fatigue
CPT/HCPCS: 36415; 80053; 85025

== ENCOUNTER 2019-06-18 15:52 | Inpatient (IN) | payer MEDICARE ==
[~2019-06-18] VITALS: Ht 180.3 cm; Wt 78.0 kg
[2019-06-18] MEDS ORDERED: NS IV 500 ML 500 ML IV ONE (15:59)
--- NOTE | 2019-06-18 16:11 | ED Fall/Injury ---
General Chief Complaint: Hip/Pelvic Problems Stated Complaint: FALL/L HIP PAIN Source: patient, family (daughter), EMS Exam Limitations: no limitations History of Present Illness Date Seen by Provider: Jun 18, 2019 Time Seen by Provider: 15:50 Initial Comments Patient presents from home by EMS with chief complaint of a fall from the bottom stair of a stairway. He denies striking his head or loss of consciousness. Landed on his left hip and has pain and debility. Not having any pain in his neck or head, chest pain, shortness of breath cough fevers chills nausea vomiting dysuria abdominal pain patient. He has diabetic neuropathy in his feet, his blood sugar is in the 160s this morning which is good for him. He has a history of 3 cardiac bypasses on aspirin but no blood thinner. Allergies and Home Medications Allergies Coded Allergies: No Known Drug Allergies (Verified , 09/19/08) Home Medications Albuterol Sulfate 2.5 Mg/3 Ml Vial.neb, 2.5 MG INH TID Prescribed by: ADALBERTO ARENAS on 10/19/18920 Aspirin 81 Mg Tablet.dr, 81 MG PO DAILY, (Reported) Atorvastatin Calcium 10 Mg Tablet, 10 MG PO DAILY, (Reported) Carvedilol 3.125 Mg Tablet, 3.125 MG PO BID, (Reported) Dextrose 4 Gm Tab.chew, 4 GM PO UD PRN for BS<120, (Reported) Dronabinol 2.5 Mg Capsule, 2.5 MG PO BID, (Reported) Fluticasone Propionate 16 Gm Howard.susp, 2 SPRAY NS DAILY Prescribed by: ADALBERTO ARENAS on 10/19/18920 Fluticasone/Salmeterol 1 Each Blst.w.dev, 1 PUFF IH BID, (Reported) Galantamine HBr 8 Mg Tablet, 4 MG PO BID, (Reported) TAKES 1/2 (8MG) TABLET Insulin Glargine,Hum.rec.anlog 100 Unit/1 Ml Insuln.pen, 15-20 UNITS SC HS, (Reported) Insulin Lispro 100 Unit/1 Ml Insuln.pen, 15-25 UNITS SQ AC, (Reported) L. Acidophilus/Bulgaricus 1 Each Gran.pack, 1 GM PO ACHS Prescribed by: ADALBERTO ARENAS on 10/19/18920 Loratadine 10 Mg Tablet, 10 MG PO DAILY Prescribed by: ADALBERTO ARENAS on 10/19/18920 Metformin HCl 500 Mg Tablet, 500 MG PO DAILY, (Reported) Methylphenidate HCl 5 Mg Tablet, 5 MG PO BID, (Reported) Montelukast Sodium 10 Mg Tablet, 10 MG PO HS Prescribed by: ADALBERTO ARENAS on 10/19/18920 Pantoprazole Sodium 40 Mg Tablet.dr, 40 MG PO DAILY Prescribed by: ADALBERTO ARENAS on 10/19/18920 Sacubitril/Valsartan 1 Each Tablet, 1 TAB PO BID, (Reported) Sertraline HCl 100 Mg Tablet, 100 MG PO DAILY, (Reported) Patient Home Medication List Home Medication List Reviewed: Yes Review of Systems Review of Systems Constitutional: No chills, No diaphoresis Eyes: Denies Blindness, Denies Blurred Vision Ears, Nose, Mouth, Throat: denies ear pain, denies ear discharge, denies nose pain Respiratory: No cough, No hemoptysis Cardiovascular: No chest pain, No edema Gastrointestinal: No abdominal pain, No constipation, No diarrhea Genitourinary: No discharge, No dysuria Musculoskeletal: see HPI; No back pain; joint pain Past Pibhfnf-Vgnpfm-Agwipg Hx Patient Social History Alcohol Beverage of Choice: Beer Former Smoker, Quit: Jul 26, 1985 Recent Hopitalizations: No Immunizations Up To Date Tetanus Booster (TDap): Less than 5yrs PED Vaccines UTD: No Date of Pneumonia Vaccine: Aug 29, 2018 Date of Influenza Vaccine: Aug 29, 2018 Seasonal Allergies Seasonal Allergies: No Past Medical History Surgeries: Yes (TRIPLE BYPASS, HEART ABLATION, HERNIA REPAIR 05/01 strangulated, LYMPHECTOMY) Abdominal, CABG, Gallbladder, Open Heart Surgery Respiratory: Yes (COPD mild) COPD Currently Using CPAP: No Currently Using BIPAP: No Cardiac: Yes (CABG, ABLATION, TRPL BYPASS) Atrial Fibrillation, Coronary Artery Disease, Heart Attack, High Cholesterol, Hypertension Neurological: No Neuropathy Reproductive Disorders: No Sexually Transmitted Disease: No HIV/AIDS: No Genitourinary: Yes Prostate Problems, Renal Failure Gastrointestinal: Yes Gastroesophageal Reflux, Gastrointestinal Bleed Musculoskeletal: Yes Arthritis Endocrine: Yes Diabetes, Insulin dep HEENT: Yes (SMALL CATARACT) Cataract Cancer: Yes Leukemia, Skin Did You Recieve Any Treatments: Yes What Type of Treatment Did You: Chemotherapy Psychosocial: No Integumentary: Yes (SKIN CANCER REMOVED) Blood Disorders: Yes (LEUKEMIA) Adverse Reaction/Blood Tranf: No Family Medical History Cardiovascular disease G8 BROTHER Diabetes mellitus 19 MOTHER G8 BROTHER Hypertension 19 MOTHER Heart Disease, CAD Over 55 Years Old, Diabetes, Hypertension, Vascular Disease Physical Exam Vital Signs Vital Signs - First Documented 06/18/19 16:01 Temp 97.6 Pulse 58 Resp 15 B/P (MAP) 161/74 (103) Pulse Ox 95 O2 Delivery Room Air Capillary Refill : Height, Weight, BMI Height: 5'11.00" Weight: 165lbs. 5.0oz. 74.277630uq; 23.0 BMI Method:Stated General Appearance: WD/WN, no apparent distress HEENT: PERRL/EOMI, normal ENT inspection, pharynx normal Neck: non-tender, full range of motion, normal inspection Cardiovascular: normal peripheral pulses, regular rate, rhythm Respiratory: chest non-tender, lungs clear, normal breath sounds, no respiratory distress, no accessory muscle use Peripheral Pulses: 2+ Radial Pulses (R), 2+ Radial Pulses (L) Gastrointestinal: normal bowel sounds, non tender, soft Extremities: normal range of motion, normal capillary refill, other (left femur tenderness on palpation or movement) Neurologic/Psychiatric: alert, normal mood/affect, oriented x 3 Progress/Results/Core Measures Results/Orders Lab Results Laboratory Tests Test 06/18/19 15:57 Range/Units White Blood Count 6.7 4.3-11.0 10^3/uL Red Blood Count 3.75 L 4.35-5.85 10^6/uL Hemoglobin 12.1 L 13.3-17.7 G/DL Hematocrit 35 L 40-54 % Mean Corpuscular Volume 92 80-99 FL Mean Corpuscular Hemoglobin 32 25-34 PG Mean Corpuscular Hemoglobin Concent 35 32-36 G/DL Red Cell Distribution Width 13.3 10.0-14.5 % Platelet Count 155 130-400 10^3/uL Mean Platelet Volume 9.2 7.4-10.4 FL Neutrophils (%) (Auto) 55 42-75 % Lymphocytes (%) (Auto) 29 12-44 % Monocytes (%) (Auto) 12 0-12 % Eosinophils (%) (Auto) 4 0-10 % Basophils (%) (Auto) 0 0-10 % Neutrophils # (Auto) 3.7 1.8-7.8 X 10^3 Lymphocytes # (Auto) 2.0 1.0-4.0 X 10^3 Monocytes # (Auto) 0.8 0.0-1.0 X 10^3 Eosinophils # (Auto) 0.2 0.0-0.3 10^3/uL Basophils # (Auto) 0.0 0.0-0.1 10^3/uL Prothrombin Time 13.4 12.2-14.7 SEC INR Comment 1.0 0.8-1.4 Activated Partial Thromboplast Time 28 24-35 SEC Sodium Level 140 135-145 MMOL/L Potassium Level 4.8 3.6-5.0 MMOL/L Chloride Level 105 98-107 MMOL/L Carbon Dioxide Level 22 21-32 MMOL/L Anion Gap 13 5-14 MMOL/L Blood Urea Nitrogen 20 H 7-18 MG/DL Creatinine 1.10 0.60-1.30 MG/DL Estimat Glomerular Filtration Rate > 60 BUN/Creatinine Ratio 18 Glucose Level 175 H 70-105 MG/DL Calcium Level 9.4 8.5-10.1 MG/DL Corrected Calcium 9.3 8.5-10.1 MG/DL Total Bilirubin 0.5 0.1-1.0 MG/DL Aspartate Amino Transf (AST/SGOT) 17 5-34 U/L Alanine Aminotransferase (ALT/SGPT) 13 0-55 U/L Alkaline Phosphatase 83 40-136 U/L Troponin I < 0.028 <0.028 NG/ML Total Protein 7.1 6.4-8.2 GM/DL Albumin 4.1 3.2-4.5 GM/DL My Orders Orders - MARCELINO NICHOLS Chest 1 View, Ap/Pa Only (06/18/19 15:59) Hip, Left, 2 Views (06/18/19 15:59) Cbc With Automated Diff (06/18/19 15:59) Comprehensive Metabolic Panel (06/18/19 15:59) Protime With Inr (06/18/19 15:59) Partial Thromboplastin Time (06/18/19 15:59) Ua Culture If Indicated (06/18/19 15:59) Troponin I (06/18/19 15:59) Ed Iv/Invasive Line Start (06/18/19 15:59) Ns Iv 500 Ml (Sodium Chloride 0.9%) (06/18/19 15:59) Ekg Tracing (06/18/19 15:59) Continuous Ekg Monitoring (06/18/19 15:59) Catheter(Urinary) Insert & Ass 03,15 (06/18/19 15:59) Ct Head/Cervical Spine Wo (06/18/19 16:02) Medications Given in ED Current Medications Medications Dose Ordered Sig/[place] Route Start Time Stop Time Status Last Admin Dose Admin Sodium Chloride 500 ml @ 0 mls/hr Q0M ONCE IV 06/18/19 15:59 06/18/19 16:03 DC 06/18/19 16:31 999 MLS/HR Vital Signs/I&O 06/18/19 16:01 Temp 97.6 Pulse 58 Resp 15 B/P (MAP) 161/74 (103) Pulse Ox 95 O2 Delivery Room Air Progress Progress Note #1: Time: 16:[address] head neck, x-ray left hip, chest x-ray EKG labs urinalysis and Garcia catheter. Patient rates his pain as a 7 out of 10 presently but declines anything further for pain. Ultrasound in March 2018 of the carotids shows mild bilateral carotid stenosis. Status post CABG [address] Foreman: cardiac catheterization was done in August 2016 showing patent MAHONEY to LAD, vein graft to the obtuse marginal branch with sluggish flow in the eyak circumflex artery, patent vein graft to the right coronary artery, the proximal ey[place] coronary arteries appear slightly worse with occlusion of the left main, the LAD and diagonal artery are getting collaterals from the right system. ALL with a right port followed by Dr. Auguste Congestive heart failure with a recovered EF of 30%. Last echo in August 2018 showing EF of 50-55% History of atrial flutter status post ablation in 2004. Unable to tolerate anticoagulation due to low platelets Progress Note #2: Time: 18:04 Progress Note Telephone order to nurse Lucila on the floor for a one-time dose of Lovenox 90 mg subcutaneous Initial ECG Impression Date: Jun 18, 2019 Initial ECG Impression Time: 16:36 Initial ECG Rate: 58 Initial ECG Rhythm: Normal Sinus Initial ECG Intervals: QT (460) Initial ECG Impression: Normal, Nonspecific Changes Comment Right bundle-branch block without clinically acute ST elevation or depression. Diagnostic Imaging Diagonstic Imaging: Xray Plain Films/CT/US/NM/MRI: chest (1v) Comments NAME: JUDE ARENAS [facility] REC#: [id number] PT STATUS: REG ER : 1940 PHYSICIAN: MARCELINO NICHOLS MD ADMIT DATE: 06/18/19/ER Signed Date of Exam:06/18/19 CHEST 1 VIEW, AP/PA ONLY INDICATION: Fall. EXAMINATION: Single view of the chest was obtained. FINDINGS: There is cardiomegaly. There has been previous median sternotomy and carotid artery bypass graft. Lungs are clear. There is no pleural effusion or pneumothorax. The mediastinum is unremarkable. IMPRESSION: 1. No acute cardiopulmonary abnormality. 2. Cardiomegaly and coronary artery bypass graft. Dictated by: Dictated on workstation # [id number] Dict: 06/18/19 1630 Trans: 06/18/19 1655 E [id number] Interpreted by: FELECIA ANTONY MD Electronically signed by: FELECIA ANTONY MD 06/18/19 1655 Reviewed: Reviewed by [place] Diagonstic Imaging: CT Plain Films/CT/US/NM/MRI: c-spine, head Comments NAME: JUDE ARENAS [facility] REC#: [id number] PT STATUS: REG ER : 1940 PHYSICIAN: MARCELINO NICHOLS MD ADMIT DATE: 06/18/19/ER Draft Date of Exam:06/18/19 CT HEAD/CERVICAL SPINE WO PROCEDURE: CT head and CT cervical spine without contrast. TECHNIQUE: Multiple contiguous axial images were obtained through the brain and cervical spine without the use of intravenous contrast. Sagittal and coronal reformations through the cervical spine were then performed. Auto Exposure Controls were utilized during the CT exam to meet ALARA standards for radiation dose reduction. DATE: June 18, 2019. COMPARISON: None. INDICATION: 78-year-old male, fall. Head and neck pain. FINDINGS: There is mild proportional prominence of the ventricles and CSF spaces compatible with mild cerebral volume loss. There is no mass effect or midline shift. There is no acute intracranial hemorrhage. There is no abnormal extra-axial fluid collection. The visualized portions of the paranasal sinuses, mastoid air cells and middle ears are well aerated. There is no identified facet joint subluxation or dislocation. There are mild facet degenerative changes of the cervical spine. There is no asymmetric widening of the cervical disc spaces. There is no prominent prevertebral soft tissue swelling. There is chondrocalcinosis. There are multilevel advanced disc degenerative changes of the cervical spine. There are posterior disc osteophyte complexes at C2-C3, C3-C4, C4-C5, C5-C6 and C6-C7. CT is limited for assessment of disc pathology as well as additional non-bony causes of pathology within the spinal canal. There are median sternotomy wires. The visualized portions of the lung apices are clear. There is a right thyroid nodule, measuring 15 mm in size. IMPRESSION: 1. No identified acute intracranial abnormality. 2. No identified acute posttraumatic abnormality of the cervical spine. 3. Multilevel advanced disc and mild facet degenerative changes of the cervical spine. Dictated on workstation # [id number] Dict: 06/18/19 1619 Trans: 06/18/19 163 PJE [id number] Interpreted by: LILLIAN BYERS MD Electronically signed by: Reviewed: Reviewed by [place] Diagonstic Imaging: Xray Plain Films/CT/US/NM/MRI: hip (Left) Comments NAME: JUDE ARENAS [facility] REC#: [id number] PT STATUS: REG ER : 1940 PHYSICIAN: MARCELINO NICHOLS MD ADMIT DATE: 06/18/19/ER Draft Date of Exam:06/18/19 HIP, LEFT, 2 VIEWS EXAMINATION: Left hip radiographs, 2 views. 3 images. COMPARISON: None. HISTORY: 78-year-old male, fall. FINDINGS: There is a comminuted displaced left intertrochanteric femur fracture. The left hip is not dislocated. There are prominent vascular calcifications. There is no pronounced joint space loss of the left hip. IMPRESSION: Comminuted displaced left intertrochanteric femur fracture. Dictated on workstation # [id number] Dict: 06/18/19 1630 Trans: 06/18/19 163 PJE [id number] Interpreted by: LILLIAN BYERS MD Electronically signed by: Reviewed: Reviewed by Me Consults : Consulting Physician: TORI EATON MD Consults Notes Advised trauma surgeon of the situation but as it is an isolated fracture this is an orthopedic case and does not require a admit. He agrees with the plan. Departure Communication (Admissions) Time/Spoke to Admitting Phy: 16:38 Discussed case lab imaging findings with Dr. Arenas and she agrees to admit the patient. Consult cardiology, orthopedic surgery. Time/Spoke to Consulting Phy: 16:50 Discussed the case with Dr. Richards, orthopedic surgery and he would like the patient nothing by mouth at midnight plan to operate possibly tomorrow. Ryan's traction 5 pounds. He would like another view of the pelvis AP times one. Discussed with Dr. Foreman at 1655 and he agrees to consult on the patient. Impression Primary Impression: Fall Qualified Codes: W19.XXXA - Unspecified fall, initial encounter Additional Impression: Fracture of femur, intertrochanteric, left, closed Qualified Codes: S72.145A - Nondisplaced intertrochanteric fracture of left femur, initial encounter for closed fracture Disposition: ADMITTED INPATIENT Condition: Stable Admissions Decision to Admit Reason: Admit from ER (General) Decision to Admit/Date: Jun 18, 2019 Time/Decision to Admit Time: 16:45 Departure-Patient Inst. Referrals: ADALBERTO ARENAS DO (PCP/Family) Primary Care Physician MARCELINO NICHOLS Jun 18, 2019 16:11
[2019-06-18 16:23] LABS: PROTHROMBIN TIME PATIENT 13.4 SEC (12.2-14.7)
[2019-06-18 16:30] LABS: BASOPHILS % (AUTO) 0 % (0-10); EOSINOPHILS % (AUTO) 4 % (0-10); HEMATOCRIT 35 % (40-54); HEMOGLOBIN 12.1 G/DL (13.3-17.7); LYMPHOCYTES % (AUTO) 29 % (12-44); MEAN CORPUSCULAR HEMOGLOBIN 32 PG (25-34); MEAN CORPUSCULAR HGB CONC 35 G/DL (32-36); MEAN CORPUSCULAR VOLUME 92 FL (80-99); MEAN PLATELET VOLUME 9.2 FL (7.4-10.4); MONOCYTES % (AUTO) 12 % (0-12); NEUTROPHILS # (AUTO) 3.7 X 10^3 (1.8-7.8); NEUTROPHILS % (AUTO) 55 % (42-75); PLATELET COUNT 155 10^3/uL (130-400); RED CELL DISTRIBUTION WIDTH 13.3 % (10.0-14.5); WHITE BLOOD COUNT 6.7 10^3/uL (4.3-11.0)
[2019-06-18 16:31] LABS: EOSINOPHILS # (AUTO) 0.2 10^3/uL (0.0-0.3); MONOCYTES # (AUTO) 0.8 X 10^3 (0.0-1.0)
[2019-06-18 16:32] LABS: ALANINE AMINOTRANSFERASE 13 U/L (0-55); ALBUMIN 4.1 GM/DL (3.2-4.5); ALKALINE PHOSPHATASE 83 U/L (40-136); BILIRUBIN,TOTAL 0.5 MG/DL (0.1-1.0); BUN/CREATININE RATIO 18; CALCIUM 9.4 MG/DL (8.5-10.1); CARBON DIOXIDE 22 MMOL/L (21-32); CHLORIDE 105 MMOL/L (98-107); GFR ESTIMATED > 60; GLUCOSE 175 MG/DL (70-105); POTASSIUM 4.8 MMOL/L (3.6-5.0); SODIUM 140 MMOL/L (135-145); TOTAL PROTEIN 7.1 GM/DL (6.4-8.2)
--- NOTE | 2019-06-18 16:32 | Diagnostic Imaging Report ---
PROCEDURE: CT head and CT cervical spine without contrast. TECHNIQUE: Multiple contiguous axial images were obtained through the brain and cervical spine without the use of intravenous contrast. Sagittal and coronal reformations through the cervical spine were then performed. Auto Exposure Controls were utilized during the CT exam to meet ALARA standards for radiation dose reduction. DATE: June 18, 2019. COMPARISON: None. INDICATION: 78-year-old male, fall. Head and neck pain. FINDINGS: There is mild proportional prominence of the ventricles and CSF spaces compatible with mild cerebral volume loss. There is no mass effect or midline shift. There is no acute intracranial hemorrhage. There is no abnormal extra-axial fluid collection. The visualized portions of the paranasal sinuses, mastoid air cells and middle ears are well aerated. There is no identified facet joint subluxation or dislocation. There are mild facet degenerative changes of the cervical spine. There is no asymmetric widening of the cervical disc spaces. There is no prominent prevertebral soft tissue swelling. There is chondrocalcinosis. There are multilevel advanced disc degenerative changes of the cervical spine. There are posterior disc osteophyte complexes at C2-C3, C3-C4, C4-C5, C5-C6 and C6-C7. CT is limited for assessment of disc pathology as well as additional non-bony causes of pathology within the spinal canal. There are median sternotomy wires. The visualized portions of the lung apices are clear. There is a right thyroid nodule, measuring 15 mm in size. IMPRESSION: 1. No identified acute intracranial abnormality. 2. No identified acute posttraumatic abnormality of the cervical spine. 3. Multilevel advanced disc and mild facet degenerative changes of the cervical spine. Dictated by: Dictated on workstation # [id number]
--- NOTE | 2019-06-18 16:34 | Diagnostic Imaging Report ---
INDICATION: Fall. EXAMINATION: Single view of the chest was obtained. FINDINGS: There is cardiomegaly. There has been previous median sternotomy and carotid artery bypass graft. Lungs are clear. There is no pleural effusion or pneumothorax. The mediastinum is unremarkable. IMPRESSION: 1. No acute cardiopulmonary abnormality. 2. Cardiomegaly and coronary artery bypass graft. Dictated by: Dictated on workstation # [id number]
--- NOTE | 2019-06-18 16:35 | Diagnostic Imaging Report ---
EXAMINATION: Left hip radiographs, 2 views. 3 images. COMPARISON: None. HISTORY: 78-year-old male, fall. FINDINGS: There is a comminuted displaced left intertrochanteric femur fracture. The left hip is not dislocated. There are prominent vascular calcifications. There is no pronounced joint space loss of the left hip. IMPRESSION: Comminuted displaced left intertrochanteric femur fracture. Dictated by: Dictated on workstation # [id number]
[2019-06-18 17:12] LABS: BILIRUBIN,URINE NEGATIVE (NEGATIVE); CLARITY,URINE CLEAR; COLOR,URINE YELLOW; GLUCOSE, URINE (UA) NEGATIVE (NEGATIVE); KETONES,URINE NEGATIVE (NEGATIVE); LEUKOCYTE ESTERASE ,URINE NEGATIVE (NEGATIVE); NITRITE,URINE NEGATIVE (NEGATIVE); PH,URINE 6 (5-9); PROTEIN,URINE 1+ (NEGATIVE); UROBILINOGEN,URINE NORMAL (NORMAL)
--- NOTE | 2019-06-18 17:16 | Diagnostic Imaging Report ---
INDICATION: Fall, left hip pain. FINDINGS: Single view of the pelvis shows a lucency through the intertrochanteric region of left hip consistent with an intertrochanteric fracture with no displacement evident on this view. There may be mild impaction. The trochanters are nondisplaced. There is no dislocation. IMPRESSION: There is an intertrochanteric fracture of the left hip. Dictated by: Dictated on workstation # [id number]
[2019-06-18 17:35] VITALS: BP 130/64
[2019-06-18 17:38] LABS: BACTERIA,URINE NEGATIVE /HPF; RBC,URINE RARE /HPF
[2019-06-18 17:39] LABS: SQUAMOUS EPITHELIAL CELL,UR 0-2 /HPF
--- NOTE | 2019-06-18 17:40 | NUR ---
JUDE ARENAS admitted to room 429-1, with an admitting diagnosis of FALL, L FEMUR FX, on 06/18/19 from ER via CART, accompanied by AND FRIENDS.JUDE ARENAS introduced to surroundings, call light, bed controls, phone, TV, temperature control, lights, meal times, smoking policy, visitor policy, side rail policy, bathrooms and showers. Patient Rights given to patient in the handbook. JUDE ARENAS verbalizes understanding that [facility] is not responsible for the loss or damage to any personal effects or valuables that are kept in the patients posession during their hospitalization. The following Patient Care Plans were discussed with the PT: Discharge Planning,PAIN, IMP IMMOBILTY, HIGH RISK INFECTION. JUDE ARENAS verbalizes understanding of Interdisciplinary Patient Education. Patient and/or family were informed about the Rapid Response Team and its purpose. PT CAME TO FLOOR WITH SL IN L HAND FROM ER
--- NOTE | 2019-06-18 17:55 | Consultation-Cardiology ---
HPI-Cardiology Cardiology Consultation Date of Consultation 06/18/19 Date of Admission Time Seen by Provider: 17:53 Indication: Hip fracture HPI 78 years old gentleman with history of coronary artery disease and history of dizziness, sustained a fall on the stairs and landed on his left hip, had left hip fracture, admitted to the hospital and scheduled for surgery. He denied any dizziness, syncope or near syncopal episode, having hip pain. Denied any chest pain, no shortness of breath. No palpitation. Home Medications & Allergies Allergies: Coded Allergies: No Known Drug Allergies (Verified , 09/19/08) Home Medication List Reviewed: Yes HBW-Ixsngp-Ippxuu Hx Patient Social History Marital Status: Employed/Student: retired Alcohol Use: Occasionally Uses Recreational Drug Use: No Smoking Status: Former Smoker Former smoker/When Quit: Jul 26, 1985 2nd Hand Smoke Exposure: No Recent Foreign Travel: No Recent Infectious Disease Expo: No Recent Hopitalizations: No Immunizations Up To Date Tetanus Booster (TDap): Less than 5yrs Date of Pneumonia Vaccine: Aug 29, 2018 Date of Influenza Vaccine: Aug 29, 2018 Past Medical History Discussed below Family Medical History Significant Family History: Heart Disease, CAD Over 55 Years Old, Diabetes, Hypertension, Vascular Disease Family History: Cardiovascular disease G8 BROTHER Diabetes mellitus 19 MOTHER G8 BROTHER Hypertension 19 MOTHER Review of Systems-General Review of Systems Constitutional: No chills, No diaphoresis; malaise EENTM: see HPI Respiratory: see HPI; No cough, No dyspnea on exertion, No hemoptysis, No orthopnea, No phlegm, No short of breath, No stridor, No wheezing, No other Cardiovascular: see HPI; No chest pain, No edema, No Hx of Intervention, No palpitations, No syncope, No vascular heart diseas, No other Gastrointestinal: see HPI; No abdominal pain, No constipation, No diarrhea Genitourinary: No discharge, No dysuria Musculoskeletal: see HPI; No back pain; joint pain, other (Hip fracture) Skin: see HPI Psychiatric/Neurological: See HPI Reviewed Test Results Reviewed Test Results Lab Laboratory Tests Test 06/18/19 15:57 06/18/19 16:58 Range/Units White Blood Count 6.7 4.3-11.0 10^3/uL Red Blood Count 3.75 L 4.35-5.85 10^6/uL Hemoglobin 12.1 L 13.3-17.7 G/DL Hematocrit 35 L 40-54 % Mean Corpuscular Volume 92 80-99 FL Mean Corpuscular Hemoglobin 32 25-34 PG Mean Corpuscular Hemoglobin Concent 35 32-36 G/DL Red Cell Distribution Width 13.3 10.0-14.5 % Platelet Count 155 130-400 10^3/uL Mean Platelet Volume 9.2 7.4-10.4 FL Neutrophils (%) (Auto) 55 42-75 % Lymphocytes (%) (Auto) 29 12-44 % Monocytes (%) (Auto) 12 0-12 % Eosinophils (%) (Auto) 4 0-10 % Basophils (%) (Auto) 0 0-10 % Neutrophils # (Auto) 3.7 1.8-7.8 X 10^3 Lymphocytes # (Auto) 2.0 1.0-4.0 X 10^3 Monocytes # (Auto) 0.8 0.0-1.0 X 10^3 Eosinophils # (Auto) 0.2 0.0-0.3 10^3/uL Basophils # (Auto) 0.0 0.0-0.1 10^3/uL Prothrombin Time 13.4 12.2-14.7 SEC INR Comment 1.0 0.8-1.4 Activated Partial Thromboplast Time 28 24-35 SEC Sodium Level 140 135-145 MMOL/L Potassium Level 4.8 3.6-5.0 MMOL/L Chloride Level 105 98-107 MMOL/L Carbon Dioxide Level 22 21-32 MMOL/L Anion Gap 13 5-14 MMOL/L Blood Urea Nitrogen 20 H 7-18 MG/DL Creatinine 1.10 0.60-1.30 MG/DL Estimat Glomerular Filtration Rate > 60 BUN/Creatinine Ratio 18 Glucose Level 175 H 70-105 MG/DL Calcium Level 9.4 8.5-10.1 MG/DL Corrected Calcium 9.3 8.5-10.1 MG/DL Total Bilirubin 0.5 0.1-1.0 MG/DL Aspartate Amino Transf (AST/SGOT) 17 5-34 U/L Alanine Aminotransferase (ALT/SGPT) 13 0-55 U/L Alkaline Phosphatase 83 40-136 U/L Troponin I < 0.028 <0.028 NG/ML Total Protein 7.1 6.4-8.2 GM/DL Albumin 4.1 3.2-4.5 GM/DL Urine Color YELLOW Urine Clarity CLEAR Urine pH 6 5-9 Urine Specific [place] 1.015 L 1.016-1.022 Urine Protein 1+ H NEGATIVE Urine Glucose (UA) NEGATIVE NEGATIVE Urine Ketones NEGATIVE NEGATIVE Urine Nitrite NEGATIVE NEGATIVE Urine Bilirubin NEGATIVE NEGATIVE Urine Urobilinogen NORMAL NORMAL MG/DL Urine Leukocyte Esterase NEGATIVE NEGATIVE Urine RBC (Auto) NEGATIVE NEGATIVE Urine RBC RARE /HPF Urine WBC NONE /HPF Urine Squamous Epithelial Cells 0-2 /HPF Urine Crystals NONE /LPF Urine Bacteria NEGATIVE /HPF Urine Casts NONE /LPF Urine Mucus NEGATIVE /LPF Urine Culture Indicated NO Physical Exam Physical Exam Vital Signs Vital Signs - First Documented 06/18/19 16:01 Temp 97.6 Pulse 58 Resp 15 B/P (MAP) 161/74 (103) Pulse Ox 95 O2 Delivery Room Air Capillary Refill : Less Than 3 Seconds Height, Weight, BMI Height: 5'11.00" Weight: 172lbs. 5.0oz. [id number]; 23.0 BMI Method:Stated General Appearance: No Apparent Distress, WD/WN Eyes: Bilateral Eye Normal Inspection, Bilateral Eye PERRL, Bilateral Eye EOMI HEENT: PERRL/EOMI, TMs Normal, Normal ENT Inspection, Pharynx Normal, Moist Mucous Membranes Neck: Full Range of Motion, Normal Inspection, Non Tender, Supple, Carotid Bruit Respiratory: Chest Non Tender, Normal Breath Sounds, No Accessory Muscle Use, No Respiratory Distress Cardiovascular: Regular Rate, Rhythm, No Edema, No Gallop, No JVD, No Murmur, Normal Peripheral Pulses Gastrointestinal: Normal Bowel Sounds, No Organomegaly, No Pulsatile Mass, Non Tender, Soft Back: Normal Inspection, No CVA Tenderness, No Vertebral Tenderness Extremity: Normal Capillary Refill, Normal Inspection, No Pedal Edema, Other (Left hip fracture) Neurologic/Psychiatric: Alert, Oriented x3, No Motor/Sensory Deficits, Normal Mood/Affect Skin: Normal Color, Warm/Dry Lymphatic: No Adenopathy A/P-Cardiology Admission Diagnosis Hip fracture Coronary artery disease Carotid stenosis ALL Assessment/Plan Left femur fracture, possible surgical repair tomorrow. History of orthostatic dizziness and hypotension, near-syncope, no current syncopal episodes or dizziness reported. Coronary artery disease status post CABG x3 in 2004, cardiac catheterization in April 2014 which showed patent bypass grafts with small vessel disease distally mainly in the LAD system that was receiving retrograde collateral, treated conservatively. Cardiac catheterization was done on November 07, 2014 showing small vessel disease, patent MAHONEY to LAD, vein graft to the circumflex artery and vein graft to the right coronary artery, repeat cardiac catheterization was done in August 2016 showing patent MAHONEY to LAD, vein graft to the obtuse marginal branch with sluggish flow in the [place] circumflex artery, patent vein graft to the right coronary artery, the proximal [place] coronary arteries appear slightly worse with occlusion of the left main, the LAD and diagonal artery are getting collaterals from the right system. He has been asymptomatic. Continue to monitor. X Mild bilateral carotid stenosis, ultrasound was done in March 2018. Continue to monitor History of esophageal spasm, EGD by Dr. Manzanares , reporting improvement. 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 Nettles, continue to monitor. No changes are recommended Congestive heart failure, resolved. Secondary to coronary artery disease and chemotherapy. Most recent 2-D echocardiogram done August 2018 showed improvement of EF to 50-55 percent. Continue current medication. Anemia, followed by Dr. Watts and Dr. Perez. 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 Nettles. Hypertension, controlled on current medication, continue to monitor Hyperlipidemia, continue to monitor lipids. Managed by Dr. Watts. Diabetes mellitus, managed and followed by primary care physician. History of atrial flutter status post ablation in 2004, currently in sinus rhythm. Continue to monitor Preoperative cardiac evaluation, patient is considered at intermediate to high risk for perioperative cardiovascular complications, decision regarding the surgery, risks versus benefit is deferred to the surgeon CHRISTOPHER TANG MD Jun 18, 2019 17:55
--- NOTE | 2019-06-18 18:00 | NUR ---
PT PLACED IN SNOW TRACTION W/ 5LBS -- AND GRAHAM CATHETER 6 FR TO [place] WAS PLACED -- PT KNOCKED OUT HIS SL AND STAFF SAW HE HAD A POWER PORT --- GOT ORDERS FROM DR ARENAS TO USE THE POWER PORT --
[2019-06-18] MEDS ORDERED: ENOXAPARIN 100 MG/1 ML (LOVENOX) SYR SC ONE (18:15)
[2019-06-18] MEDS ORDERED: ENOXAPARIN 100 MG/1 ML (LOVENOX) SYR ONE (18:26)
--- NOTE | 2019-06-18 19:37 | History & Physical-Hospitalist ---
History of Present Illness HPI/Chief Complaint Chief complaint: Left hip pain after fall History of present illness: This is a 78-year-old white male clinic patient of mine who has a past medical history of ischemic cardiomyopathy maintained on Entresto with impressive recovery of systolic function, CAD previous bypass managed by Dr Dr Foreman, acute lymphocytic leukemia in remission for the past [address] Perez, and diabetes mellitus insulin-dependent who presents to [facility] ER following a fall after he missed the last step down a spiral staircase at his daughter's house without any head injury or loss of consciousness or chest pain. He immediately felt hip pain could not move the leg or straighten the leg and ambulance was called. At this current time patient is received some pain medication and in the process of undergoing labs and x-rays to confirm suspected left femur fracture. Source: patient, family, RN/, old records Exam Limitations: no limitations Date Seen 06/18/19 Time Seen by a Provider: 18:00 Attending Physician Keith Foreman MD PCP Rosalinda Arenas DO Referring Physician TORI EATON MD Date of Admission Jun 18, 2019 at 16:50 Home Medications & Allergies Home Medications Reviewed patient Home Medication Reconciliation performed by pharmacy medication reconciliations medical delivery technician and/or nursing. Patients Allergies have been reviewed. 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 Alcohol Use: Occasionally Uses Number of Drinks Today: AA Alcohol Beverage of Choice: Beer Recreational Drug Use: No Smoking Status: Former Smoker Former Smoker, Quit: Jul 26, 1985 2nd Hand Smoke Exposure: No Physical Abuse Screen: No Sexual Abuse: No Recent Foreign Travel: No Contact w/other who traveled: No Recent Hopitalizations: No Recent Infectious Disease Expo: No Immunizations Up To Date Tetanus Booster (TDap): Less than 5yrs Pediatric: No Date of Pneumonia Vaccine: Aug 29, 2018 Date of Influenza Vaccine: Aug 29, 2018 Seasonal Allergies Seasonal Allergies: No Past Medical History Surgeries: Abdominal, CABG, Gallbladder, Open Heart Surgery Respiratory: COPD, Pneumonia Currently Using CPAP: No Currently Using BIPAP: No Cardiac: Atrial Fibrillation, Coronary Artery Disease, Heart Attack, High Cho lesterol, Hypertension Neurological: Neuropathy Reproductive: No Sexually Transmitted Disease: No HIV/AIDS: No Genitourinary: Prostate Problems, Renal Failure Gastrointestinal: Gastroesophageal Reflux, Gastrointestinal Bleed Musculoskeletal: Arthritis Endocrine: Diabetes, Insulin dep HEENT: Cataract Cancer: Leukemia, Skin Did You Recieve Any Treatments: Yes What Type of Treatment Did You: Chemotherapy History of Blood Disorders: Yes (LEUKEMIA) Adverse Reaction to Blood Vargas: No Family History Cardiovascular disease G8 BROTHER Diabetes mellitus 19 MOTHER G8 BROTHER Hypertension 19 MOTHER Heart Disease, CAD Over 55 Years Old, Diabetes, Hypertension, Vascular Disease Review of Systems Constitutional: see HPI EENTM: no symptoms reported Respiratory: no symptoms reported Cardiovascular: no symptoms reported Gastrointestinal: no symptoms reported Genitourinary: no symptoms reported Musculoskeletal: joint pain (left leg) Psychiatric/Neurological: No Symptoms Reported All Other Systems Reviewed Negative Unless Noted: Yes Physical Exam Physical Exam Vital Signs Vital Signs - First Documented 06/18/19 16:01 Temp 97.6 Pulse 58 Resp 15 B/P (MAP) 161/74 (103) Pulse Ox 95 O2 Delivery Room Air Capillary Refill : Less Than 3 Seconds Height, Weight, BMI Height: 5'11.00" Weight: 172lbs. 0.0oz. [id number]; 24.0 BMI Method:Stated General Appearance: No Apparent Distress, WD/WN, Chronically ill, Thin Eyes: Right Eye Normal Inspection, Right Eye PERRL HEENT: PERRL/EOMI, Normal ENT Inspection, Pharynx Normal, Moist Mucous Membrane s Neck: Full Range of Motion, Normal Inspection, Non Tender Respiratory: Chest Non Tender, Lungs Clear, Normal Breath Sounds, No Accessory Muscle Use, No Respiratory Distress Cardiovascular: Regular Rate, Rhythm, No Edema, No Gallop, No JVD, No Murmur, Normal Peripheral Pulses Gastrointestinal: Normal Bowel Sounds, No Organomegaly, No Pulsatile Mass, Non Tender, Soft Back: Normal Inspection, No CVA Tenderness, No Vertebral Tenderness Extremity: Normal Capillary Refill, Normal Inspection, Normal Range of Motion (except left leg), Non Tender, No Calf Tenderness, No Pedal Edema Neurologic/Psychiatric: Alert, Oriented x3, No Motor/Sensory Deficits, Normal Mood/Affect Skin: Normal Color, Warm/Dry Lymphatic: No Adenopathy Results Results/Procedures Labs Laboratory Tests 9/1/19 15:57 Patient resulted labs reviewed. 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 diff history h/o ARF while at [facility] for ALL induction PUD Remission for acute lymphocytic leukemia for [address] Perez Ischemic cardiomyopathy with improvement in ejection fraction from 30 percent to 55 percent due to Entresto management Plan: Benefits outweigh medical risks and left hip fracture repair should proceed on as planned DVT PPx Monitor for ACS and CHF Appreciate Dr Foreman and Dr Richards Admission Status: Inpatient Order (span 2 midnights) Reason for Inpatient Admission: Left femur fracture Diagnosis/Problems Diagnosis/Problems (1) Fracture of femur, intertrochanteric, left, closed Status: Acute Qualifiers: Encounter type: initial encounter Fracture alignment: nondisplaced Qualified Codes: S72.145A - Nondisplaced intertrochanteric fracture of left femur, initial encounter for closed fracture (2) Fall Status: Acute Qualifiers: Encounter type: initial encounter Qualified Codes: W19.XXXA - Unspecified fall, initial encounter (3) Ischemic cardiomyopathy Status: Chronic (4) Renal insufficiency Status: Chronic (5) Neuropathy Status: Chronic (6) Hx of CABG Status: Chronic (7) COPD (chronic obstructive pulmonary disease) (8) History of Clostridium difficile infection Status: Chronic (9) Hypertension Status: Chronic Qualifiers: Hypertension type: essential hypertension Qualified Codes: I10 - Essential (primary) hypertension (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 (11) CAD (coronary artery disease) Status: Chronic Qualifiers: Coronary Disease-Associated Artery/Lesion type: [place] artery [place] vs. transplanted heart: [place] heart Associated angina: without angina Qualified Codes: I25.10 - Atherosclerotic heart disease of [place] coronary artery without angina pectoris (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 Qualifiers: Laterality: left Qualified Codes: G57.02 - Lesion of sciatic nerve, left lower limb Clinical Quality Measures DVT/VTE Risk/Contraindication: Risk Factor Score Per Nursin RFS Level Per Nursing on Admit: 4+=Very High ROSALINDA ARENAS DO Jun 18, 2019 19:37
--- NOTE | 2019-06-18 19:40 | Consultation - Ortho ---
Consult - Ortho Subjective Date of Exam 06/18/19 Chief Complaint Left hip fracture HPI/Events since last exam The patient is a 78-year-old white male who fell this afternoon coming down some steps landing directly on his left hip. He is the father of Dr. Watts. She was with him at that time. He is brought to the emergency room where he was evaluated and x-rayed and noted to have an intertrochanteric fracture of the left hip. He denied any previous problems with the left hip prior to the fall. He states he has no other injuries. He has no history of back pain. No pain or problems with the right hip. Does not ambulate with a walker or a cane. Medical, Surgical History Reviewed and no additions or changes Social History Reviewed and no additions or changes Family History Reviewed and no additions or changes Review of Systems Reviewed and no additions or changes Allergies: Coded Allergies: No Known Drug Allergies (Verified , 09/19/08) Home Meds Active Scripts Albuterol Sulfate (Albuterol Sulfate) 2.5 Mg/3 Ml Vial.neb, 2.5 MG INH TID, #60 EA Prov:ROSALINDA WATTS DO 10/19/18 L. Acidophilus/Bulgaricus (Floranex Granules Packet) 1 Each Gran.pack, 1 GM PO ACHS, #60 EA Prov:ROSALINDA WATTS DO 10/19/18 Pantoprazole Sodium (Pantoprazole Sodium) 40 Mg Tablet.dr, 40 MG PO DAILY, #30 TAB Prov:ROSALINDA WATTS DO 10/19/18 Fluticasone Propionate (Fluticasone Propionate) 16 Gm [place].susp, 2 SPRAY NS DAILY, #1 SPRAY Prov:ROSALINDA WATTS DO 10/19/18 Montelukast Sodium (Montelukast Sodium) 10 Mg Tablet, 10 MG PO HS, #30 TAB Prov:ROSALINDA WATTS DO 10/19/18 Loratadine (Loratadine) 10 Mg Tablet, 10 MG PO DAILY, #30 TAB Prov:ROSALINDA WATTS DO 10/19/18 Reported Medications Dextrose (Glucose) 4 Gm Tab.chew, 4 GM PO UD PRN for BS<120, TAB 02/24/19 Insulin Glargine,Hum.rec.anlog (Lantus Solostar) 100 Unit/1 Ml Insuln.pen, 15-20 UNITS SC HS, EA 02/24/19 Atorvastatin Calcium (Lipitor) 10 Mg Tablet, 10 MG PO DAILY, TAB 10/17/18 Aspirin (Aspirin EC) 81 Mg Tablet.dr, 81 MG PO DAILY, TAB 10/17/18 Galantamine HBr (Galantamine HBr) 8 Mg Tablet, 4 MG PO BID, TAB TAKES 1/2 (8MG) TABLET 10/17/18 Sacubitril/Valsartan (Entresto 24 mg-26 mg Tablet) 1 Each Tablet, 1 TAB PO BID, TAB 10/17/18 Metformin HCl (Metformin HCl) 500 Mg Tablet, 500 MG PO DAILY, TAB 10/17/18 Fluticasone/Salmeterol (Advair 250-50 Diskus) 1 Each Blst.w.dev, 1 PUFF IH BID, INHALER 08/28/16 Sertraline HCl (Sertraline HCl) 100 Mg Tablet, 100 MG PO DAILY, TAB 08/28/16 Carvedilol (Carvedilol) 3.125 Mg Tablet, 3.125 MG PO BID, TAB 08/28/16 Dronabinol (Dronabinol) 2.5 Mg Capsule, 2.5 MG PO BID, CAP 08/28/16 Methylphenidate HCl (Ritalin) 5 Mg Tablet, 5 MG PO BID, TAB 07/22/15 Insulin Lispro (Humalog Kwikpen) 100 Unit/1 Ml Insuln.pen, 15-25 UNITS SQ AC, EA 07/22/15 Objective Exam Constitutional: [] HEENT: [] Neck: [No pain with palpation or range of motion. He is able to lift his head up off the bed without any pain. No muscle spasms and no pain going out to the shoulders.] Cardiovascular: [] Respiratory: [] Gastrointestinal: [] Genitourinary: [] Skin: [] Back/Spine: [No pain with palpation that thoracic or lumbar spine] Extremities: [Upper extremities have full range of motion with no crepitation or deformity. No pain at the shoulder, elbow, forearm, wrist or hand both upper extremities. Normal sensation to the fingers and thumb with good cap refill and good radial pulse. Lower extremities is pain with palpation and a motion of the left hip. No pain right hip with range of motion. No pain in either knee. No effusion. No skin changes. No calf tenderness and negative Homans. No pain with range of motion of either ankle. No pain in the feet. Normal sensation to the foot and toes with good capillary refill. Symmetrical pulses are noted. Any motion of the left lower extremity causes left hip pain.] Neurologic: [Grossly intact] Psychiatric: [] Hematologic/lymphatic/immunologic: [] Vital Signs Vital Signs Date Time Temp Pulse Resp B/P (MAP) Pulse Ox O2 Delivery O2 Flow Rate FiO2 06/18/19 17:25 66 16 161/74 (103) 99 Room Air 06/18/19 16:01 97.6 58 15 161/74 (103) 95 Room Air Lab Results Laboratory Tests 06/18/19 15:57: White Blood Count 6.7, Red Blood Count 3.75L, Hemoglobin 12.1L, Hematocrit 35L, Mean Corpuscular Volume 92, Mean Corpuscular Hemoglobin 32, Mean Corpuscular Hemoglobin Concent 35, Red Cell Distribution Width 13.3, Platelet Count 155, Mean Platelet Volume 9.2, Neutrophils (%) (Auto) 55, Lymphocytes (%) (Auto) 29, Monocytes (%) (Auto) 12, Eosinophils (%) (Auto) 4, Basophils (%) (Auto) 0, Neutrophils # (Auto) 3.7, Lymphocytes # (Auto) 2.0, Monocytes # (Auto) 0.8, Eosinophils # (Auto) 0.2, Basophils # (Auto) 0.0, Prothrombin Time 13.4, INR Comment 1.0, Activated Partial Thromboplast Time 28, Sodium Level 140, Potassium Level 4.8, Chloride Level 105, Carbon Dioxide Level 22, Anion Gap 13, Blood Urea Nitrogen 20H, Creatinine 1.10, Estimat Glomerular Filtration Rate > 60, BUN/Creatinine Ratio 18, Glucose Level 175H, Calcium Level 9.4, Corrected Calcium 9.3, Total Bilirubin 0.5, Aspartate Amino Transf (AST/SGOT) 17, Alanine Aminotransferase (ALT/SGPT) 13, Alkaline Phosphatase 83, Troponin I < 0.028, Total Protein 7.1, Albumin 4.1 06/18/19 16:58: Urine Color YELLOW, Urine Clarity CLEAR, Urine pH 6, Urine Specific [place] 1.015L, Urine Protein 1+H, Urine Glucose (UA) NEGATIVE, Urine Ketones NEGATIVE, Urine Nitrite NEGATIVE, Urine Bilirubin NEGATIVE, Urine Urobilinogen NORMAL, Urine Leukocyte Esterase NEGATIVE, Urine RBC (Auto) NEGATIVE, Urine RBC RARE, Urine WBC NONE, Urine Squamous Epithelial Cells 0-2, Urine Crystals NONE, Urine Bacteria NEGATIVE, Urine Casts NONE, Urine Mucus NEGATIVE, Urine Culture Indicated NO Assessment and Plan Assessment Intertrochanteric fracture left hip Problem List Reviewed and no additions or changes Plan Treatment options were discussed with the patient and his . I also talked to his daughter Rosalinda. I recommended surgical treatment. Non-operative treatment would require prolonged bed rest with increased risk of skin breakdown and pulmonary issues. He wants proceed with surgical treatment. I recommended a long TFN. I discussed the procedure risk complications and he would like to proceed. We have him scheduled for tomorrow a.m. at approximately 0900. We will treat him pre-and postop with Ancef for antibiotic and also treated him postop with Lovenox for DVT prophylaxis Final Diagonsis Intertrochanteric fracture left hip Level of the visit: Level 3 DAX YOUNG MD Jun 18, 2019 19:40
[2019-06-18 20:00] VITALS: BP 119/62
[2019-06-18] MEDS ORDERED: CALCIUM CARBONATE 500 MG (TUMS) TAB.CHEW PO PRN (20:00)
[2019-06-18] MEDS ORDERED: ONDANSETRON 4 MG (ZOFRAN) ORAL DISSOLVE TAB PO PRN (20:00)
[2019-06-18] MEDS ORDERED: LOPERAMIDE 2 MG (IMODIUM) TABLET PO PRN (20:00)
[2019-06-18] MEDS ORDERED: diphenhydrAMINE 25 MG TAB (BENADRYL) PO PRN (20:00)
[2019-06-18] MEDS ORDERED: ACETAMINOPHEN 500 MG TAB (TYLENOL) PO PRN (20:00)
[2019-06-18] MEDS ORDERED: DOCUSATE SODIUM 100 MG (COLACE) CAP PO PRN (20:00)
[2019-06-18] MEDS: HYDROcodone/APAP 10 MG/325 MG (LORTAB) TAB PO PRN (20:35)
[2019-06-18] MEDS: SENNA W/DOCUSATE (SENOKOT S) TABLET PO SCH (20:35)
[2019-06-18] MEDS: inSUlin ASPART (NovoLOG) 1 UNIT/0.01 ML (CHARGE PER UNIT) SC SCH (22:16)
[2019-06-18] MEDS: fentaNYL INJECTION 100 MCG/2 ML AMP IVP PRN (22:17)
[2019-06-19] VITALS (12 sets, daily range): BP systolic 108–144; BP diastolic 57–98
[2019-06-19] MEDS: MELATONIN 3 MG TABLET PO PRN (00:20)
[2019-06-19] MEDS: ALPRAZolam 0.25 MG (XANAX) TAB PO PRN ×2 (00:23→20:10)
[2019-06-19] MEDS: HYDROcodone/APAP 10 MG/325 MG (LORTAB) TAB PO PRN ×3 (00:24→20:11)
[2019-06-19] MEDS: fentaNYL INJECTION 100 MCG/2 ML AMP IVP PRN ×2 (05:30→13:32)
[2019-06-19 05:51] LABS: BASOPHILS % (AUTO) 0 % (0-10); EOSINOPHILS # (AUTO) 0.2 10^3/uL (0.0-0.3); EOSINOPHILS % (AUTO) 2 % (0-10); HEMATOCRIT 32 % (40-54); HEMOGLOBIN 11.2 G/DL (13.3-17.7); LYMPHOCYTES # (AUTO) 1.4 X 10^3 (1.0-4.0); LYMPHOCYTES % (AUTO) 17 % (12-44); MEAN CORPUSCULAR HEMOGLOBIN 32 PG (25-34); MEAN CORPUSCULAR HGB CONC 35 G/DL (32-36); MEAN CORPUSCULAR VOLUME 92 FL (80-99); MONOCYTES % (AUTO) 12 % (0-12); NEUTROPHILS # (AUTO) 5.7 X 10^3 (1.8-7.8); NEUTROPHILS % (AUTO) 68 % (42-75); PLATELET COUNT 144 10^3/uL (130-400); RED CELL DISTRIBUTION WIDTH 13.3 % (10.0-14.5); WHITE BLOOD COUNT 8.3 10^3/uL (4.3-11.0)
[2019-06-19 06:08] LABS: ALANINE AMINOTRANSFERASE 12 U/L (0-55); ALBUMIN 3.7 GM/DL (3.2-4.5); ALKALINE PHOSPHATASE 79 U/L (40-136); BILIRUBIN,TOTAL 0.7 MG/DL (0.1-1.0); BUN/CREATININE RATIO 16; CALCIUM 8.5 MG/DL (8.5-10.1); CARBON DIOXIDE 24 MMOL/L (21-32); CHLORIDE 105 MMOL/L (98-107); CREATININE SERUM 1.03 MG/DL (0.60-1.30); GFR ESTIMATED > 60; GLUCOSE 245 MG/DL (70-105); POTASSIUM 4.2 MMOL/L (3.6-5.0); SODIUM 138 MMOL/L (135-145); TOTAL PROTEIN 6.3 GM/DL (6.4-8.2)
[2019-06-19] MEDS: inSUlin ASPART (NovoLOG) 1 UNIT/0.01 ML (CHARGE PER UNIT) SC SCH ×4 (06:20→20:00)
--- NOTE | 2019-06-19 07:01 | Pulmonary Consultation ---
History of Present Illness History of Present Illness Date of Consultation 06/19/19 06:56 Time Seen by Provider: 06:56 Date of Admission Reason for Visit: Hip fracture History of Present Illness 78yo with hx of ischemic cardiomyopathy, CAD, ALL (currently in remission), IDDM presented to ED via EMS after falling. Pt complained of hip pain and could not move leg and was found to have a left femur fracture. Pt was admitted to 4th floor with ortho consult. Allergies and Home Medications Allergies Coded Allergies: No Known Drug Allergies (Verified , 09/19/08) Home Medications Albuterol Sulfate 2.5 Mg/3 Ml Vial.neb, 2.5 MG INH TID Prescribed by: ADALBERTO ARENAS on 10/19/18920 Aspirin 81 Mg Tablet.dr, 81 MG PO DAILY, (Reported) Atorvastatin Calcium 10 Mg Tablet, 10 MG PO DAILY, (Reported) Carvedilol 3.125 Mg Tablet, 3.125 MG PO BID, (Reported) Dextrose 4 Gm Tab.chew, 4 GM PO UD PRN for BS<120, (Reported) Dronabinol 2.5 Mg Capsule, 2.5 MG PO BID, (Reported) Fluticasone Propionate 16 Gm Arroyo.susp, 2 SPRAY NS DAILY Prescribed by: ADALBERTO ARENAS on 10/19/18920 Fluticasone/Salmeterol 1 Each Blst.w.dev, 1 PUFF IH BID, (Reported) Galantamine HBr 8 Mg Tablet, 4 MG PO BID, (Reported) TAKES 1/2 (8MG) TABLET Insulin Glargine,Hum.rec.anlog 100 Unit/1 Ml Insuln.pen, 15-20 UNITS SC HS, (Reported) Insulin Lispro 100 Unit/1 Ml Insuln.pen, 15-25 UNITS SQ AC, (Reported) L. Acidophilus/Bulgaricus 1 Each Gran.pack, 1 GM PO ACHS Prescribed by: ADALBERTO ARENAS on 10/19/18920 Loratadine 10 Mg Tablet, 10 MG PO DAILY Prescribed by: ADALBERTO ARENAS on 10/19/18920 Metformin HCl 500 Mg Tablet, 500 MG PO DAILY, (Reported) Methylphenidate HCl 5 Mg Tablet, 5 MG PO BID, (Reported) Montelukast Sodium 10 Mg Tablet, 10 MG PO HS Prescribed by: ADALBERTO ARENAS on 10/19/18920 Pantoprazole Sodium 40 Mg Tablet., 40 MG PO DAILY Prescribed by: ADALBERTO ARENAS on 10/19/18920 Sacubitril/Valsartan 1 Each Tablet, 1 TAB PO BID, (Reported) Sertraline HCl 100 Mg Tablet, 100 MG PO DAILY, (Reported) Past Gsiuehq-Kuenmy-Lwsnzo Hx Past Med/Social Hx: Reviewed Nursing Past Med/Soc Hx, Reviewed and Corrections made Patient Social History Alcohol Use: Occasionally Uses Number of Drinks Today: AA Alcohol Beverage of Choice: Beer Recreational Drug Use: No Smoking Status: Former Smoker Former Smoker, Quit: Jul 26, 1985 2nd Hand Smoke Exposure: No Recent Foreign Travel: No Contact w/Someone Who Travel: No Recent Infectious Disease Expo: No Recent Hopitalizations: No Immunizations Up To Date Tetanus Booster (TDap): Less than 5yrs PED Vaccines UTD: No Date of Pneumonia Vaccine: Aug 29, 2018 Date of Influenza Vaccine: Aug 29, 2018 Seasonal Allergies Seasonal Allergies: No Past Medical History Surgeries: Yes (TRIPLE BYPASS, HEART ABLATION, HERNIA REPAIR 05/01 strangulated, LYMPHECTOMY) Abdominal, CABG, Gallbladder, Open Heart Surgery Respiratory: Yes (COPD mild) COPD Currently Using CPAP: No Currently Using BIPAP: No Cardiac: Yes (CABG, ABLATION, TRPL BYPASS) Atrial Fibrillation, Coronary Artery Disease, Heart Attack, High Cholesterol, Hypertension Neurological: No Neuropathy Reproductive Disorders: No Sexually Transmitted Disease: No HIV/AIDS: No Genitourinary: Yes Prostate Problems, Renal Failure Gastrointestinal: Yes Gastroesophageal Reflux, Gastrointestinal Bleed Musculoskeletal: Yes Arthritis Endocrine: Yes Diabetes, Insulin dep HEENT: Yes (SMALL CATARACT) Cataract Cancer: Yes Leukemia, Skin Did You Recieve Any Treatments: Yes What Type of Treatment Did You: Chemotherapy Psychosocial: No Integumentary: Yes (SKIN CANCER REMOVED) Blood Disorders: Yes (LEUKEMIA) Adverse Reaction/Blood Tranf: No Family Medical History Cardiovascular disease G8 BROTHER Diabetes mellitus 19 MOTHER G8 BROTHER Hypertension 19 MOTHER Heart Disease, CAD Over 55 Years Old, Diabetes, Hypertension, Vascular Disease Review of Systems Time Seen by Provider: 06:58 Sepsis Event Evaluation Height, Weight, BMI Height: 5'11.00" Weight: 172lbs. 0.0oz. 78.098111rl; 24.0 BMI Method:Stated Exam Exam Vital Signs Date Time Temp Pulse Resp B/P (MAP) Pulse Ox O2 Delivery O2 Flow Rate FiO2 06/19/19 03:46 98.6 72 19 110/58 (75) 94 Room Air 06/19/19 00:25 98.2 85 19 110/57 (74) 93 Room Air 06/18/19 20:39 Room Air 06/18/19 20:00 Room Air 06/18/19 20:00 97.7 69 20 119/62 (81) 97 Room Air 06/18/19 17:55 99 Room Air 06/18/19 17:35 98.5 74 20 130/64 (86) 96 Room Air 06/18/19 17:25 66 16 161/74 (103) 99 Room Air 06/18/19 16:01 97.6 58 15 161/74 (103) 95 Room Air I & O 06/19/19 07:00 Intake Total 600 ml Output Total 550 ml Balance 50 ml Height & Weight Height: 5'11.00" Weight: 172lbs. 0.0oz. 78.512248vc; 24.0 BMI Method:Stated General Appearance: No Apparent Distress, WD/WN, Chronically ill, Thin HEENT: PERRL/EOMI, Normal ENT Inspection, Pharynx Normal, Moist Mucous Membranes Neck: Full Range of Motion, Normal Inspection, Non Tender Respiratory: Chest Non Tender, Lungs Clear, Normal Breath Sounds, No Accessory Muscle Use, No Respiratory Distress Cardiovascular: Regular Rate, Rhythm, No Edema, No Gallop, No JVD, No Murmur, Normal Peripheral Pulses Capillary Refill: Less Than 3 Seconds Peripheral Pulses: 2+ Radial Pulses (R), 2+ Radial Pulses (L) Gastrointestinal: normal bowel sounds, non tender, soft Extremity: Normal Capillary Refill, Normal Inspection, Normal Range of Motion (except left leg), Non Tender, No Calf Tenderness, No Pedal Edema Neurologic/Psychiatric: Alert, Oriented x3, No Motor/Sensory Deficits, Normal Mood/Affect Skin: Normal Color, Warm/Dry Lymphatic: No Adenopathy Results Lab Laboratory Tests 06/18/19 15:57 06/19/19 05:45 Assessment/Plan Assessment/Plan Left femur fracture s/p mechanical fall -Plan is for surgical repair today COPD -SVNs -Singulair, claritin DM Neuropathy HTN hx of ALL Ischemic cardiomyopathy hx ELLE CORMIER DO Jun 19, 2019 07:01
[2019-06-19] MEDS ORDERED: proPOfol 200 MG/20 ML (DIPRIVAN) VIAL IV ONE (08:18)
[2019-06-19] MEDS ORDERED: LIDOCAINE PF 2% 5 ML (XYLOCAINE) VIAL ONE (08:18)
[2019-06-19] MEDS ORDERED: ONDANSETRON 4 MG/2 ML (SDV) Z0FRAN ONE (08:18)
[2019-06-19] MEDS ORDERED: ROCURONIUM 10 MG/ML 5 ML SYRINGE IV ONE (08:18)
[2019-06-19] MEDS ORDERED: MIDAZOLAM 2 MG/2 ML (VERSED) VIAL ONE (08:19)
[2019-06-19] MEDS ORDERED: fentaNYL INJECTION 100 MCG/2 ML AMP ONE (08:19)
[2019-06-19] MEDS ORDERED: SEVOFLURANE (ULTANE) 15 ML INHAL SOLN ONE ×4 (08:21→10:06)
[2019-06-19] MEDS ORDERED: NEO/POLY/BAC (NEOSPORIN) OINT 15 GM TUBE ONE (08:29)
[2019-06-19] MEDS ORDERED: ceFAZolin 2 GM/50 ML NS 50 ML IV ONE (08:30)
[2019-06-19] MEDS: SENNA W/DOCUSATE (SENOKOT S) TABLET PO SCH ×2 (09:00→20:09)
--- NOTE | 2019-06-19 09:15 | NUR ---
TAKEN DOWN TO PRE OP W/ PREOP RN -- IV ANCEF 2GM WS SENT DOWN WITH PT
--- NOTE | 2019-06-19 09:38 | Progress Note - Hospitalist ---
Subjective HPI/CC On Admission Date Seen by Provider: Jun 19, 2019 Time Seen by Provider: 09:00 Chief complaint: Left hip pain after fall History of present illness: This is a 78-year-old white male clinic patient of mine who has a past medical history of ischemic cardiomyopathy maintained on Entresto with impressive recovery of systolic function, CAD previous bypass managed by Dr Dr Foreman, acute lymphocytic leukemia in remission for the past [address] Perez, and diabetes mellitus insulin-dependent who pres ents to [facility] ER following a fall after he missed the last step down a spiral staircase at his daughter's house without any head injury or loss of consciousness or chest pain. He immediately felt hip pain could not move the leg or straighten the leg and ambulance was called. At this current time pat ient is received some pain medication and in the process of undergoing labs and x-rays to confirm suspected left femur fracture. Subjective/Events-last exam Patient was seen before surgery and was prepared to undergo the procedure Spoke with Dr. Richards before and after surgery Patient drowsy since he did not sleep at all last night Labs remained stable Blood sugars in the low 200s No concern at this point Check meds and labs Conferred with Dr. Foreman Review of Systems General: Fatigue Musculoskeletal: leg pain Objective Exam Vital Signs Vital Signs Date Time Temp Pulse Resp B/P (MAP) Pulse Ox O2 Delivery O2 Flow Rate FiO2 06/19/19 15:54 99.2 106 20 129/73 (91) 90 Room Air 06/19/19 11:20 1 Capillary Refill : Less Than 3 SecondsLess Than 3 Seconds General Appearance: No Apparent Distress, WD/WN, Chronically ill, Thin, Other (frail) Respiratory: Chest Non Tender, Lungs Clear, Normal Breath Sounds, No Accessory Muscle Use, No Respiratory Distress Cardiovascular: Regular Rate, Rhythm, No Edema, No Gallop, No JVD, No Murmur, Normal Peripheral Pulses Neurologic/Psychiatric: Alert, Oriented x3, No Motor/Sensory Deficits, Normal Mood/Affect Results/Procedures Lab Laboratory Tests 06/19/19 05:45 Patient resulted labs reviewed. 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 diff history h/o ARF while at [facility] for ALL induction PUD Remission for acute lymphocytic leukemia for [address] Perez Ischemic cardiomyopathy with improvement in ejection fraction from 30 percent to 55 percent due to Entresto management Plan: Monitor labs and respiratory status DVT PPx Monitor for ACS and CHF Appreciate Dr Foreman and Dr Richards and Dr Nettles and Dr Alvarado PT/OT IRF Garcia cath DC in future Lovenox Diagnosis/Problems Diagnosis/Problems (1) Fracture of femur, intertrochanteric, left, closed Status: Acute Qualifiers: Encounter type: initial encounter Fracture alignment: nondisplaced Qualified Codes: S72.145A - Nondisplaced intertrochanteric fracture of left femur, initial encounter for closed fracture (2) Fall Status: Acute Qualifiers: Encounter type: initial encounter Qualified Codes: W19.XXXA - Unspecified fall, initial encounter (3) Ischemic cardiomyopathy Status: Chronic (4) Renal insufficiency Status: Chronic (5) Neuropathy Status: Chronic (6) Hx of CABG Status: Chronic (7) COPD (chronic obstructive pulmonary disease) (8) History of Clostridium difficile infection Status: Chronic (9) Hypertension Status: Chronic Qualifiers: Hypertension type: essential hypertension Qualified Codes: I10 - Essential (primary) hypertension (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 (11) CAD (coronary artery disease) Status: Chronic Qualifiers: Coronary Disease-Associated Artery/Lesion type: [place] artery [place] vs. transplanted heart: [place] heart Associated angina: without angina Qualified Codes: I25.10 - Atherosclerotic heart disease of [place] coronary artery without angina pectoris (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 Qualifiers: Laterality: left Qualified Codes: G57.02 - Lesion of sciatic nerve, left lower limb Clinical Quality Measures DVT/VTE Risk/Contraindication: Risk Factor Score Per Nursin RFS Level Per Nursing on Admit: 4+=Very High ADALBERTO ARENAS DO Jun 19, 2019 09:38
[2019-06-19] MEDS ORDERED: GLYCOPYRROLATE 0.2 MG/ML (ROBINUL) 2 ML VIAL ONE (10:18)
[2019-06-19] MEDS ORDERED: NEOSTIGMINE 3 MG/3 ML VIAL ONE (10:18)
[2019-06-19] MEDS ORDERED: LACTATED RINGERS 1,000 ML IV PRN (10:54)
[2019-06-19] MEDS ORDERED: morphine INJ 10 MG/ML 1ML (SYR OR VIAL) IVP ONE (11:00)
[2019-06-19] MEDS ORDERED: MEPERIDINE (DEMEROL) INJ 50 MG/ML IVP ONE (11:00)
[2019-06-19] MEDS ORDERED: ONDANSETRON 4 MG/2 ML (SDV) Z0FRAN IVP PRN (11:00)
--- NOTE | 2019-06-19 11:05 | Operative Report - Ortho ---
Operative Report Surgeon (s)/Load Out Supervisor (s) Surgeon DAX YOUNG MD Load Out Supervisor n/a Pre-Operative Diagnosis two-part intertrochanteric fracture left hip Post-Operative Diagnosis same Operative Report Date of Procedure: Jun 19, 2019 Name of Procedure Performed: Long TFN for two-part intertrochanteric fracture left hip. The IM jeffrey measured 400 mm x 11 mm. The helical blade measured 95 mm Description & Findings The patient was seen in the preoperative area and the left leg was marked. He had no questions or concerns. No change in his history and physical. He was taken to the operating room and after administration of general anesthesia in his hospital bed was placed on the fracture table. The right leg was placed in the well leg rhoades with flexion and adduction of the hip. The left leg was placed in the traction boot with the leg in adduction and internal rotation. The patient was also given 2 g Ancef IV preoperatively. Fluoroscopy was used to visualize the hip and the hip was reduced with traction countertraction in positioning of the leg. This point the left hip and thigh were prepped and draped in the usual sterile manner. An incision was made just proximal to the tip of the greater trochanter. This was taken down through subcutaneous tissue, gluteal fascia to the tip of the greater trochanter. The initial guidewire was inserted at the medial aspect of the tip of the greater trochanter on the AP view and on the lateral view in line with the central portion of the canal. This was verified with image. The proximal femurs and overreamed with the initial reamer using tissue protector. Initial guidewire was removed and a beaded guidewire was placed to the knee. This was measured and a 400 millimeter jeffrey was selected. The 12 mm reamer was placed over the guidewire and no reaming was obtained on advancement. This point the 40 mm x 11 mm long jeffrey was inserted over the guidewire and the guidewire was removed. The jeffrey was positioned for insertion of the guidewire for the helical blade. A guidewire was placed into the central aspect of the neck and head on both AP and lateral views. This was measured and a 95 mm helical blade was selected. The lateral cortex was opened with the cortical reamer and the helical blade was inserted over the guidewire to within approximately 6-8 mm of the articular surface on both AP and lateral views. This was locked into place and compression was applied at the fracture site. Good position was noted on both AP and lateral views and maximum internal and external rotation with no penetration of the femoral head. Good position was noted the jeffrey distally at approximately the proximal pole of the patella. It was felt due to the orientation of the fracture and the stability of the fracture that no locking screw was needed distally. This point the guide was removed. The wounds were irrigated with normal saline. The fascia and iliotibial band were closed with 0 Vicryl. The subjacent tissue with 2-0 Vicryl and the skin with skin clips. The wounds are dressed with antibiotic ointment, Adaptic and 4 x 4's and ABDs which were taped in position. Patient was then transferred to his hospital bed and then to recovery room in good condition he tolerated the procedure well. Approximate blood loss was 150 mL's. No transfusion. No complications. n/a Anesthesia Type Gen. Estimated Blood Loss 150 mL's Packing none. Specimen(s) collected/removed None DAX YOUNG MD Jun 19, 2019 11:05
--- NOTE | 2019-06-19 11:26 | Occ Therapy Progress Note ---
Therapy Progress Note pt scheduled for surgery this date secondary to Intertrochanteric fracture left hip. OT will follow 06/20/19. FATEMEH UP OT Jun 19, 2019 11:26
--- NOTE | 2019-06-19 11:40 | NUR ---
PT BROUGHT BACK TO FLOOR PER PERSONNEL ASSISTANT NORIS -- AND REPORT GIVEN TO THIS RN BY PERSONNEL ASSISTANT -- PT DENIED ANY PAIN OR DISCOMFORT -- FAMILY AT BEDSIDE
--- NOTE | 2019-06-19 11:41 | Diagnostic Imaging Report ---
Indication: Hip nailing Comparison: Imaging from 06/18/2019 Findings: 4 intraoperative images of the left hip and femurs submitted dated 06/19/2019 Intraoperative imaging demonstrates placement of a longstem gamma nail transfixing previously noted left intertrochanteric fracture. Findings and alignment appear slightly improved since the prior examination. No hip dislocation. No new fracture. Scattered vascular calcifications. Impression: Intraoperative imaging demonstrating placement of a longstem gamma nail transfixing previously noted left intertrochanteric femoral fracture with alignment appearing improved. See surgical note for further details. Fluoroscopy time: 83 seconds. Dictated by: Dictated on workstation # [id number]
[2019-06-19] MEDS: LACTATED RINGERS 1,000 ML IV SCH ×2 (12:15→20:09)
--- NOTE | 2019-06-19 13:37 | Cardiology Progress Note ---
Subjective Date Seen by Provider: Jun 19, 2019 Time Seen by Provider: 13:36 Subjective/Events-last exam patient is laying down in bed, had surgery done earlier today and recovering well. Review of Systems General: No Chills, No Night Sweats, No Fatigue, No Malaise, No Appetite, No Other HEENT: No Head Aches, No Visual Changes, No Eye Pain, No Ear Pain, No Dysphasia, No Sinus Congestion, No Post Nasal Drip, No Sore Throat, No Other Pulmonary: No Dyspnea, No Cough, No Pleuritic Chest Pain, No Other Cardiovascular: No: Chest Pain, Palpitations, Orthopnea, Paroxysmal Noc. Dyspnea, Edema, Lt Headedness, Other Objective-Cardiology Exam Last Set of Vital Signs Vital Signs 06/19/19 06/19/19 06/19/19 11:20 11:47 13:32 Temp 97.6 Pulse 77 Resp 20 B/P (MAP) 124/60 (81) Pulse Ox 94 O2 Delivery Room Air O2 Flow Rate 1 Capillary Refill : Less Than 3 SecondsLess Than 3 Seconds I&O Intake and Output 06/19/19 00:00 Intake Total 600 ml Output Total 300 ml Balance 300 ml Intake Oral 100 ml IV Total 500 ml Output Urine Total 300 ml Daily Weight Change No General: Alert, Oriented X3, Cooperative HEENT: Atraumatic, PERRLA Neck: Supple, No JVD, No Thyromegaly Lungs: Clear to Auscultation, Normal Air Movement Heart: Regular Rate, Normal S1, Normal S2, No Murmurs Abdomen: Normal Bowel Sounds, Soft, No Tenderness, No Hepatosplenomegaly, No Masses Extremities: No Clubbing, No Cyanosis, No Edema, Normal Pulses, No Tenderness/Swelling Skin: No Rashes, No Breakdown, No Significant Lesion Neuro: Normal Speech, Normal Tone, Sensation Intact Psych/Mental Status: Mental Status NL, Mood NL Results Lab Laboratory Tests 06/18/19 15:57 06/19/19 05:45 A/P-Cardiology Admission Diagnosis Hip fracture Coronary artery disease Carotid stenosis ALL Assessment/Plan Left femur fracture, post surgical repair done earlier today on June 19, 2019. Continue to monitor History of orthostatic dizziness and hypotension, near-syncope, no current syncopal episodes or dizziness reported. Coronary artery disease status post CABG x3 in 2004, cardiac catheterization in April 2014 which showed patent bypass grafts with small vessel disease distally mainly in the LAD system that was receiving retrograde collateral, treated conservatively. Cardiac catheterization was done on November 07, 2014 showing small vessel disease, patent MAHONEY to LAD, vein graft to the circumflex artery and vein graft to the right coronary artery, repeat cardiac catheterization was done in August 2016 showing patent MAHONEY to LAD, vein graft to the obtuse marginal branch with sluggish flow in the teller circumflex artery, patent vein graft to the right coronary artery, the proximal teller coronary arteries appear slightly worse with occlusion of the left main, the LAD and diagonal artery are getting collaterals from the right system. He has been asymptomatic. Continue to monitor. Mild bilateral carotid stenosis, ultrasound was done in March 2018. Continue to monitor History of esophageal spasm, EGD by Dr. Manzanares , reporting improvement. 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 Nettles, continue to monitor. No changes are recommended Congestive heart failure, resolved. Secondary to coronary artery disease and chemotherapy. Most recent 2-D echocardiogram done August 2018 showed improvement of EF to 50-55 percent. Continue current medication. Anemia, followed by Dr. Watts and Dr. Perez. 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 Nettles. Hypertension, controlled on current medication, continue to monitor Hyperlipidemia, continue to monitor lipids. Managed by Dr. Watts. Diabetes mellitus, managed and followed by primary care physician. History of atrial flutter status post ablation in 2004, currently in sinus rhythm. Continue to monitor Preoperative cardiac evaluation, patient is considered at intermediate to high risk for perioperative cardiovascular complications, decision regarding the surgery, risks versus benefit is deferred to the surgeon Clinical Quality Measures DVT/VTE Risk/Contraindication: Risk Factor Score Per Nursin RFS Level Per Nursing on Admit: 4+=Very High CHRISTOPHER TANG MD Jun 19, 2019 13:37
--- NOTE | 2019-06-19 14:17 | NUR ---
PT TOLERATED CLR LIQ'S -- ON REG DIET FOR DINNER --
[2019-06-19] MEDS: ceFAZolin 2 GM IV Premixed 50 ML IV SCH ×2 (16:32→22:42)
--- NOTE | 2019-06-19 18:14 | NUR ---
PT C/O SORE THROAT CALLED DR ARENAS AND LEFT MESSAGE FOR
[2019-06-19] MEDS ORDERED: CHLORASEPTIC SPRAY 177 ML LIQUID MC PRN (18:30)
[2019-06-19] MEDS ORDERED: CHLORASEPTIC SPRAY 177 ML LIQUID MC ONE (18:35)
[2019-06-19] MEDS: ENOXAPARIN 40 MG/0.4 ML (LOVENOX) SYR SC SCH (22:41)
[2019-06-20] VITALS: BP 132/78
[2019-06-20 03:59] VITALS: BP 106/58
[2019-06-20 05:20] LABS: BASOPHILS % (AUTO) 0 % (0-10); EOSINOPHILS # (AUTO) 0.4 10^3/uL (0.0-0.3); EOSINOPHILS % (AUTO) 4 % (0-10); HEMATOCRIT 27 % (40-54); HEMOGLOBIN 9.3 G/DL (13.3-17.7); LYMPHOCYTES # (AUTO) 1.3 X 10^3 (1.0-4.0); LYMPHOCYTES % (AUTO) 14 % (12-44); MEAN CORPUSCULAR HEMOGLOBIN 32 PG (25-34); MEAN CORPUSCULAR HGB CONC 34 G/DL (32-36); MEAN CORPUSCULAR VOLUME 94 FL (80-99); MEAN PLATELET VOLUME 9.3 FL (7.4-10.4); MONOCYTES # (AUTO) 0.9 X 10^3 (0.0-1.0); MONOCYTES % (AUTO) 10 % (0-12); NEUTROPHILS # (AUTO) 6.4 X 10^3 (1.8-7.8); NEUTROPHILS % (AUTO) 71 % (42-75); PLATELET COUNT 126 10^3/uL (130-400); RED CELL DISTRIBUTION WIDTH 13.4 % (10.0-14.5); WHITE BLOOD COUNT 8.9 10^3/uL (4.3-11.0)
[2019-06-20 05:46] LABS: ALBUMIN 3.5 GM/DL (3.2-4.5); BILIRUBIN,TOTAL 0.6 MG/DL (0.1-1.0); CALCIUM 8.1 MG/DL (8.5-10.1); CREATININE SERUM 1.24 MG/DL (0.60-1.30); POTASSIUM 4.4 MMOL/L (3.6-5.0); TOTAL PROTEIN 5.9 GM/DL (6.4-8.2)
[2019-06-20] MEDS: inSUlin ASPART (NovoLOG) 1 UNIT/0.01 ML (CHARGE PER UNIT) SC SCH ×4 (05:53→20:21)
[2019-06-20] MEDS: ceFAZolin 2 GM IV Premixed 50 ML IV SCH (05:53)
[2019-06-20 08:00] VITALS: BP 112/56
[2019-06-20] MEDS ORDERED: SALINE NASAL SPRAY (OCEAN) 45 ML BTL PRN (08:30)
--- NOTE | 2019-06-20 08:35 | Cardiology Progress Note ---
Subjective Date Seen by Provider: Jun 20, 2019 Time Seen by Provider: 08:33 Subjective/Events-last exam patient is laying down in bed, feeling better today. No new complaint Review of Systems General: No Chills, No Night Sweats, No Fatigue, No Malaise, No Appetite, No Other HEENT: No Head Aches, No Visual Changes, No Eye Pain, No Ear Pain, No Dysphasia, No Sinus Congestion, No Post Nasal Drip, No Sore Throat, No Other Pulmonary: No Dyspnea, No Cough, No Pleuritic Chest Pain, No Other Cardiovascular: No: Chest Pain, Palpitations, Orthopnea, Paroxysmal Noc. Dyspnea, Edema, Lt Headedness, Other Objective-Cardiology Exam Last Set of Vital Signs Vital Signs 06/19/19 06/20/19 20:30 03:59 Temp 98.9 Pulse 77 Resp 18 B/P (MAP) 106/58 (74) Pulse Ox 94 O2 Delivery Room Air O2 Flow Rate 1.00 Capillary Refill : Less Than 3 SecondsLess Than 3 Seconds I&O Intake and Output 06/20/19 00:00 Intake Total 1810 ml Output Total 1165 ml Balance 645 ml Intake Oral 710 ml IV Total 1100 ml Output Urine Total 1165 ml General: Alert, Oriented X3, Cooperative HEENT: Atraumatic, PERRLA Neck: Supple, No JVD, No Thyromegaly Lungs: Clear to Auscultation, Normal Air Movement Heart: Regular Rate, Normal S1, Normal S2, No Murmurs Abdomen: Normal Bowel Sounds, Soft, No Tenderness, No Hepatosplenomegaly, No Masses Extremities: No Clubbing, No Cyanosis, No Edema, Normal Pulses, No Tenderness/Swelling Skin: No Rashes, No Breakdown, No Significant Lesion Neuro: Normal Speech, Normal Tone, Sensation Intact Psych/Mental Status: Mental Status NL, Mood NL Results Lab Laboratory Tests 06/20/19 05:05 A/P-Cardiology Admission Diagnosis Hip fracture Coronary artery disease Carotid stenosis ALL Assessment/Plan Left femur fracture, post surgical repair done on June 19, 2019. Continue to monitor Anemia, mild thrombocytopenia, has been followed by Dr. Watts and Chris. Continue to monitor History of orthostatic dizziness and hypotension, near-syncope, no current syncopal episodes or dizziness reported. Coronary artery disease status post CABG x3 in 2004, cardiac catheterization in April 2014 which showed patent bypass grafts with small vessel disease distally mainly in the LAD system that was receiving retrograde collateral, treated conservatively. Cardiac catheterization was done on November 07, 2014 showing small vessel disease, patent MAHONEY to LAD, vein graft to the circumflex artery and vein graft to the right coronary artery, repeat cardiac catheterization was done in August 2016 showing patent MAHONEY to LAD, vein graft to the obtuse marginal branch with sluggish flow in the [place] circumflex artery, patent vein graft to the right coronary artery, the proximal [place] coronary arteries appear slightly worse with occlusion of the left main, the LAD and diagonal artery are getting collaterals from the right system. He has been asymptomatic. Continue to monitor. Mild bilateral carotid stenosis, ultrasound was done in March 2018. Continue to monitor History of esophageal spasm, EGD by Dr. Manzanares , reporting improvement. 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 Nettles, continue to monitor. No changes are recommended Congestive heart failure, resolved. Secondary to coronary artery disease and chemotherapy. Most recent 2-D echocardiogram done August 2018 showed improvement of EF to 50-55 percent. Continue current medication. 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 Nettles. Hypertension, controlled on current medication, continue to monitor Hyperlipidemia, continue to monitor lipids. Managed by Dr. Watts. Diabetes mellitus, managed and followed by primary care physician. History of atrial flutter status post ablation in 2004, currently in sinus rhythm. Continue to monitor Clinical Quality Measures DVT/VTE Risk/Contraindication: Risk Factor Score Per Nursin RFS Level Per Nursing on Admit: 4+=Very High CHRISTOPHER TANG MD Jun 20, 2019 08:35
--- NOTE | 2019-06-20 08:40 | Occupational Therapy Eval ---
OT Evaluation-General/PLF Medical Diagnosis Admission Date Jun 18, 2019 at 16:50 Medical Diagnosis: FALL, L FEMUR FX, Onset Date: Jun 20, 2019 Therapy Diagnosis Therapy Diagnosis: impaired ADLs and mobility Height/Weight Height (Feet): 5 Height (Inches): 11.00 Weight (Pounds): 172 Weight (Ounces): 0.0 Precautions Precautions/Isolations: Fall Prevention, Standard Precautions Safety Interventions: None Weight Bear Status Weight Bearing Restriction: Weight Bearing/Tolerated Location Restriction: BLANQUITA FEET Referral Referral Reason: Activity Tolerance, Self Care, Evaluation/Treatment, Strengthening/ROM Medical History Pertinent Medical History: Atrial Fib, Arthritis, CABG, CAD, COPD, DM, GERD, HTN, RI, Neuropathy, Renal Insufficiency Additional Medical History per H&P "History of present illness: This is a 78-year-old white male clinic patient of [facility] who has a past medical history of ischemic cardiomyopathy maintained on Entresto with impressive recovery of systolic function, CAD previous bypass managed by Dr Dr Foreman, acute lymphocytic leukemia in remission for the past [address] Perez, and diabetes mellitus insulin- dependent who presents to [facility] ER following a fall after he missed the last step down a spiral staircase at his daughter's house without any head injury or loss of consciousness or chest pain. He immediately felt hip pain could not move the leg or straighten the leg and ambulance was called. At this current time patient is received some pain medication and in the process of undergoing labs and x-rays to confirm suspected left femur fracture." Reviewed History: Yes Social History Home: Single Level Current Living Status: Significant Other Steps Into Home: 2 ADL-Prior Level of Function Therapy Code Descriptions/Definitions Functional Paul Measure: 0=Not Assessed/NA 4=Minimal Assistance 1=Total Assistance 5=Supervision or Setup 2=Maximal Assistance 6=Modified Paul 3=Moderate Assistance 7=Complete Paul Therapy Quality Codes: 6 Independent with activity with or without an assistive device 5 Patient requires set up or clean up by helper. Patient completes activity by themselves 4 Supervision or touching assist (CGA). [place] provide cues , steadying assist 3 The helper provides less than half the effort to complete the activity 2 The helper provides more than half the effort to complete the activity 1 Dependent. The helper does all the effort to complete an activity 7 Patient refused to complete or attempt activity 9 The patient did not perform the activity before the current illness or injury 88 Not attempted due to Medical conditions or safety concerns Functional Abilities and Goals: Independent: Patient completed the activities by him/herself, with or without an assistive device, with no assistance from a helper. Needed Some Help: Patient needed partial assistance from another person to complete activities. Dependent: A helper completed the activities for the patient. Unknown: Not Applicable: ADL PLOF Comments pt stated indep PLOF using no AD Self Care: Independent Functional Cognition: Independent DME/Equipment: Bath Chair, Tub/Shower Drive Self: Yes OT Current Status Subjective pt sitting in recliner chair upon OT arrival. pt agreed to OT session. pt reports no pain. pt pleasant and cooperative to work with Pain Numeric Pain Scale: 0-No Pain Mental Status/Objective Patient Orientation: Person, Confused, Time, Situation, Normal For Age Attachments: IV Current Glasses/Contacts: Yes Hearing Aids: No Dentures/Partials: Yes Hand Dominance: Right Upper Extremity ROM WNL Upper Extremity Coordination WNL finger to nose WNL opposition Upper Extremity Sensation light touch: WNL Upper Extremity Strength 4+/5 MMT ADL-Treatment Therapy Code Descriptions/Definitions Functional Paul Measure: 0=Not Assessed/NA 4=Minimal Assistance 1=Total Assistance 5=Supervision or Setup 2=Maximal Assistance 6=Modified Paul 3=Moderate Assistance 7=Complete Paul Therapy Quality Codes: 6 Independent with activity with or without an assistive device 5 Patient requires set up or clean up by helper. Patient completes activity by themselves 4 Supervision or touching assist (CGA). [place] provide cues , steadying assist 3 The helper provides less than half the effort to complete the activity 2 The helper provides more than half the effort to complete the activity 1 Dependent. The helper does all the effort to complete an activity 7 Patient refused to complete or attempt activity 9 The patient did not perform the activity before the current illness or injury 88 Not attempted due to Medical conditions or safety concerns Eating (FIM): 6 Grooming (FIM): 5 (seated setup ) Lower Body Dressing (FIM): 1 (blanquita socks ) Transfers (B, C, W/C) (FIM): 3 (use of RW sit to stand. ) OT Short Term Goals Short Term Goals Time Frame: Jun 27, 2019 Bathing(FIM): 4 1=Demonstrate adherence to instructed precautions during ADL tasks. 2=Patient will verbalize/demonstrate understanding of assistive devices/modifications for ADL. 3=Patient will improve strength/tolerance for activity to enable patient to perform ADL's. OT Continuous Improvement Coordinator Goals Continuous Improvement Coordinator Goals Time Frame: Jul 04, 2019 Eating (FIM): 6 Grooming(FIM): 6 Bathing(FIM): 6 Upper Body Dressing(FIM): 6 Lower Body Dressing(FIM): 6 Toileting(FIM): 6 Transfers (B,C,W/C) (FIM): 6 Toilet/Commode Transfer(FIM): 6 1=Demonstrate adherence to instructed precautions during ADL tasks. 2=Patient will verbalize/demonstrate understanding of assistive devices/modifications for ADL. 3=Patient will improve strength/tolerance for activity to enable patient to perform ADL's. OT Education/Plan Problem List/Assessment Assessment: Decreased Activ Tolerance, Decreased Safety Aware, Decreased UE Strength, Dependent Transfers, Impaired Bed Mobility, Impaired Coordination, Impaired Funct Balance, Impaired I ADL's, Impaired Self-Care Skills Discharge Recommendations Plan/Recommendations: Continue POC Therapy Discharge Recommendati: Post Acute OT Treatment Plan/Plan of Care Treatment,Training & Education: Yes Patient would benefit from OT for education, treatment and training to promote independence in ADL's, mobility, safety and/or upper extremity function for ADL's. Plan of Care: ADL Retraining, Caregiver Training, Functional Mobility, Group Exercise/Act as Ind, UE Funct Exercise/Act Treatment Duration: Jul 04, 2019 Frequency: 5 times per week Agreement: Yes Rehab Potential: Fair Time/GCodes Start Time: 08:30 Stop Time: 08:40 Billed Treatment Time 10 minutes FATEMEH DOBBINS OT Jun 20, 2019 08:39
--- NOTE | 2019-06-20 09:20 | Anesthesia-General Post-Op ---
General Patient Condition Mental Status/LOC: Same as Preop Cardiovascular: Satisfactory Nausea/Vomiting: Absent Respiratory: Satisfactory Pain: Controlled Complications: Absent Post Op Complications Complications None Follow Up Care/Instructions Patient Instructions None needed. Anesthesia/Patient Condition Patient Condition Patient is doing well, no complaints, stable vital signs, no apparent adverse anesthesia problems. No complications reported per nursing. DEYANIRA CERDA CRNA Jun 20, 2019 09:20
--- NOTE | 2019-06-20 09:26 | Progress Note - Ortho ---
Progress Note Subjective Date of Exam 06/20/19 Chief Complaint Postoperative day number 1-long TFN left hip for two-part intertrochanteric fracture HPI/Events since last exam The patient is up sitting in the chair. He's been up ambulating with a walker taking a few steps. He states he's putting about half his weight on his left leg with moderate amount of pain. He states he was a little lightheaded when up. Other than that no other problems or complaints Review of Systems Reviewed and no additions or changes Allergies: Coded Allergies: No Known Drug Allergies (Verified , 09/19/08) Home Meds Active Scripts Albuterol Sulfate (Albuterol Sulfate) 2.5 Mg/3 Ml Vial.neb, 2.5 MG INH TID, #60 EA Prov:ADALBERTO ARENAS DO 10/19/18 L. Acidophilus/Bulgaricus (Floranex Granules Packet) 1 Each Gran.pack, 1 GM PO ACHS, #60 EA Prov:ADALBERTO ARENAS DO 10/19/18 Pantoprazole Sodium (Pantoprazole Sodium) 40 Mg Tablet.dr, 40 MG PO DAILY, #30 TAB Prov:ADALBERTO ARENAS DO 10/19/18 Fluticasone Propionate (Fluticasone Propionate) 16 Gm [place].susp, 2 SPRAY NS DAILY, #1 SPRAY Prov:ADALBERTO ARENAS DO 10/19/18 Montelukast Sodium (Montelukast Sodium) 10 Mg Tablet, 10 MG PO HS, #30 TAB Prov:ADALBERTO ARENAS DO 10/19/18 Loratadine (Loratadine) 10 Mg Tablet, 10 MG PO DAILY, #30 TAB Prov:ADALBERTO ARENAS DO 10/19/18 Reported Medications Dextrose (Glucose) 4 Gm Tab.chew, 4 GM PO UD PRN for BS<120, TAB 02/24/19 Insulin Glargine,Hum.rec.anlog (Lantus Solostar) 100 Unit/1 Ml Insuln.pen, 15-20 UNITS SC HS, EA 02/24/19 Atorvastatin Calcium (Lipitor) 10 Mg Tablet, 10 MG PO DAILY, TAB 10/17/18 Aspirin (Aspirin EC) 81 Mg Tablet.dr, 81 MG PO DAILY, TAB 10/17/18 Galantamine HBr (Galantamine HBr) 8 Mg Tablet, 4 MG PO BID, TAB TAKES 10/19 (8MG) TABLET 10/17/18 Sacubitril/Valsartan (Entresto 24 mg-26 mg Tablet) 1 Each Tablet, 1 TAB PO BID, TAB 10/17/18 Metformin HCl (Metformin HCl) 500 Mg Tablet, 500 MG PO DAILY, TAB 10/17/18 Fluticasone/Salmeterol (Advair 250-50 Diskus) 1 Each Blst.w.dev, 1 PUFF IH BID, INHALER 08/28/16 Sertraline HCl (Sertraline HCl) 100 Mg Tablet, 100 MG PO DAILY, TAB 08/28/16 Carvedilol (Carvedilol) 3.125 Mg Tablet, 3.125 MG PO BID, TAB 08/28/16 Dronabinol (Dronabinol) 2.5 Mg Capsule, 2.5 MG PO BID, CAP 08/28/16 Methylphenidate HCl (Ritalin) 5 Mg Tablet, 5 MG PO BID, TAB 07/22/15 Insulin Lispro (Humalog Kwikpen) 100 Unit/1 Ml Insuln.pen, 15-25 UNITS SQ AC, EA 07/22/15 Objective Exam Constitutional: [] HEENT: [] Neck: [] Cardiovascular: [] Respiratory: [] Gastrointestinal: [] Genitourinary: [] Skin: [] Back/Spine: [] Extremities: [Dressing is intact. No thigh swelling. No calf tenderness and negative Homans. Normal sensation to the foot and toes with good pulses. No weakness is noted on dorsiflexion or plantarflexion of the foot or toes] Neurologic: [] Psychiatric: [] Hematologic/lymphatic/immunologic: [] Vital Signs Vital Signs Date Time Temp Pulse Resp B/P (MAP) Pulse Ox O2 Delivery O2 Flow Rate FiO2 06/20/19 03:59 98.9 77 18 106/58 (74) 94 06/20/19 00:00 99.0 98 20 132/78 (96) 95 06/19/19 20:40 100.0 06/19/19 20:30 90 Room Air 1.00 06/19/19 20:10 102.0 06/19/19 19:56 102.2 108 20 113/67 (82) 90 Room Air 06/19/19 18:00 Room Air 06/19/19 15:54 99.2 106 20 129/73 (91) 90 Room Air 06/19/19 14:05 97.6 06/19/19 14:05 97.6 06/19/19 13:32 97.6 06/19/19 11:47 97.6 77 20 124/60 (81) 94 Room Air 06/19/19 11:30 Room Air 06/19/19 11:30 98.8 12 93 Room Air 06/19/19 11:20 12 94 OxyMask 1 06/19/19 11:20 OxyMask 1 06/19/19 11:10 OxyMask 3 06/19/19 11:10 12 98 OxyMask 2 06/19/19 11:00 12 99 OxyMask 3 06/19/19 10:55 OxyMask 5 06/19/19 10:50 12 99 OxyMask 5 06/19/19 10:41 97.8 12 98 OxyMask 5 06/19/19 10:41 OxyMask 5 I & O 06/20/19 07:00 Intake Total 2110 ml Output Total 1315 ml Balance 795 ml Lab Results Laboratory Tests 06/19/19 11:04: Glucometer 202H 06/19/19 12:13: Glucometer 218H 06/19/19 15:54: Glucometer 220H 06/19/19 19:54: Glucometer 187H 06/20/19 05:05: White Blood Count 8.9, Red Blood Count 2.87L, Hemoglobin 9.3L, Hematocrit 27L, Mean Corpuscular Volume 94, Mean Corpuscular Hemoglobin 32, Mean Corpuscular Hemoglobin Concent 34, Red Cell Distribution Width 13.4, Platelet Count 126L, Me an Platelet Volume 9.3, Neutrophils (%) (Auto) 71, Lymphocytes (%) (Auto) 14, Monocytes (%) (Auto) 10, Eosinophils (%) (Auto) 4, Basophils (%) (Auto) 0, Neutrophils # (Auto) 6.4, Lymphocytes # (Auto) 1.3, Monocytes # (Auto) 0.9, Eosinophils # (Auto) 0.4H, Basophils # (Auto) 0.0, Sodium Level 135, Potassium Level 4.4, Chloride Level 102, Carbon Dioxide Level 21, Anion Gap 12, Blood Urea Nitrogen 14, Creatinine 1.24, Estimat Glomerular Filtration Rate 56, BUN/Creatinine Ratio 11, Glucose Level 269H, Calcium Level 8.1L, Corrected Calcium 8.5, Total Bilirubin 0.6, Aspartate Amino Transf (AST/SGOT) 15, Alanine Aminotransferase (ALT/SGPT) 9, Alkaline Phosphatase 50, Total Protein 5.9L, Albumin 3.5 Assessment and Plan Assessment POD#1 long TFN left hip for two-part intertrochanteric fracture Problem List No changes Plan Continue out of bed as tolerated. Walker ambulation weightbearing as tolerated on the left Final Diagonsis Status post long TFN left hip for 2 part intertrochanteric fracture Level of the visit: Level 3 Clinical Quality Measures DVT/VTE Risk/Contraindication: Risk Factor Score Per Nursin RFS Level Per Nursing on Admit: 4+=Very High DAX YOUNG MD Jun 20, 2019 09:26
--- NOTE | 2019-06-20 09:54 | Progress Note ---
Subjective Date Seen by a Provider: Jun 20, 2019 Time Seen by a Provider: 10:00 Subjective/Events-last exam Pt had a pretty good night, did sleep a lot better. Having a lot of congestion and flem so Claritin and Singulair were restarted by Dr. Alvarado. Nausea medicine Zofran will be given. Fever of 102 overnight as expected. Using IS. Working with PT but really unable to lift his left leg which is expected. No BM yet. Garcia catheter will be discontinued tomorrow. Dr. Richards thought he was doing very well. Appreciate Dr. Foreman and Dr. Alvarado. Updated Dr. Perez of Hgb of 9.2 and PLT count of 126. Lovenox maintained for DVT prophylaxis. Review of Systems General: Fatigue Gastrointestinal: Nausea Musculoskeletal: leg pain Objective Exam Last Set of Vital Signs Vital Signs Date Time Temp Pulse Resp B/P (MAP) Pulse Ox O2 Delivery O2 Flow Rate FiO2 06/20/19 08:00 95 Room Air 06/20/19 03:59 98.9 77 18 106/58 (74) 06/19/19 20:30 1.00 Capillary Refill : Less Than 3 SecondsLess Than 3 Seconds I&O Intake and Output 06/20/19 00:00 Intake Total 1810 ml Output Total 1165 ml Balance 645 ml Intake Oral 710 ml IV Total 1100 ml Output Urine Total 1165 ml General: Alert, Oriented X3, Cooperative, No Acute Distress HEENT: Atraumatic, PERRLA Lungs: Clear to Auscultation, Normal Air Movement Heart: Regular Rate, Normal S1, Normal S2, No Murmurs Abdomen: Normal Bowel Sounds, Soft, No Tenderness, No Hepatosplenomegaly, No Masses Neuro: Normal Speech, Strength at 5/5 X4 Ext Psych/Mental Status: Mental Status NL, Mood NL Results Lab Laboratory Tests 06/19/19 11:04: Glucometer 202H 06/19/19 12:13: Glucometer 218H 06/19/19 15:54: Glucometer 220H 06/19/19 19:54: Glucometer 187H 06/20/19 05:05: White Blood Count 8.9, Red Blood Count 2.87L, Hemoglobin 9.3L, Hematocrit 27L, Mean Corpuscular Volume 94, Mean Corpuscular Hemoglobin 32, Mean Corpuscular Hemoglobin Concent 34, Red Cell Distribution Width 13.4, Platelet Count 126L, Mean Platelet Volume 9.3, Neutrophils (%) (Auto) 71, Lymphocytes (%) (Auto) 14, Monocytes (%) (Auto) 10, Eosinophils (%) (Auto) 4, Basophils (%) (Auto) 0, Neutrophils # (Auto) 6.4, Lymphocytes # (Auto) 1.3, Monocytes # (Auto) 0.9, Eosinophils # (Auto) 0.4H, Basophils # (Auto) 0.0, Sodium Level 135, Potassium Level 4.4, Chloride Level 102, Carbon Dioxide Level 21, Anion Gap 12, Blood Urea Nitrogen 14, Creatinine 1.24, Estimat Glomerular Filtration Rate 56, BUN/Creatinine Ratio 11, Glucose Level 269H, Calcium Level 8.1L, Corrected Calcium 8.5, Total Bilirubin 0.6, Aspartate Amino Transf (AST/SGOT) 15, Alanine Aminotransferase (ALT/SGPT) 9, Alkaline Phosphatase 50, Total Protein 5.9L, Albumin 3.5 Assessment/Plan Assessment/Plan Assess & Plan/Chief Complaint Assessment: Left femur fracture s/p fall after missed 1 step on stairs Wednesday at 1445 s/p uncomplicated repair POD # [address] Richards COPD on Singulair and Claritin and ICS prn 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 diff history h/o ARF while at [facility] for ALL induction PUD Remission for acute lymphocytic leukemia for [address] Perez Ischemic cardiomyopathy with improvement in ejection fraction from 30 percent to 55 percent due to Entresto management Plan: Monitor labs and respiratory status DVT PPx Monitor for ACS and CHF Appreciate Dr Foreman and Dr Richards and Dr Nettles and Dr Alvarado PT/OT IRF [facility] DC in future Lovenox Diagnosis/Problems Diagnosis/Problems (1) Fracture of femur, intertrochanteric, left, closed Status: Acute Qualifiers: Qualified Codes: S72.145A - Nondisplaced intertrochanteric fracture of left femur, initial encounter for closed fracture (2) Fall Status: Acute Qualifiers: Qualified Codes: W19.XXXA - Unspecified fall, initial encounter (3) Ischemic cardiomyopathy Status: Chronic (4) Renal insufficiency Status: Chronic (5) Neuropathy Status: Chronic (6) Hx of CABG Status: Chronic (7) COPD (chronic obstructive pulmonary disease) (8) History of Clostridium difficile infection Status: Chronic (9) Hypertension Status: Chronic Qualifiers: Qualified Codes: I10 - Essential (primary) hypertension (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 (11) CAD (coronary artery disease) Status: Chronic Qualifiers: Qualified Codes: I25.10 - Atherosclerotic heart disease of [place] coronary artery without angina pectoris (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 Qualifiers: Qualified Codes: G57.02 - Lesion of sciatic nerve, left lower limb Clinical Quality Measures DVT/VTE Risk/Contraindication: Risk Factor Score Per Nursin RFS Level Per Nursing on Admit: 4+=Very High ADALBERTO ARENAS DO Jun 20, 2019 09:54
--- NOTE | 2019-06-20 10:07 | Physical Therapy Evaluation ---
PT Evaluation-General Medical Diagnosis Admission Date Jun 18, 2019 at 16:50 Medical Diagnosis: FALL, L FEMUR FX, Onset Date: Jun 20, 2019 Therapy Diagnosis Therapy Diagnosis: generalized weakness/debility Height/Weight Height (Feet): 5 Height (Inches): 11.00 Weight (Pounds): 172 Weight (Ounces): 0.0 Precautions Precautions/Isolations: Fall Prevention, Standard Precautions Weight Bear Status Right Lower Extremity: Right Weight Bearing/Tolerated Left Lower Extremity: Left Non Weight Bearing Referral Physician: Susie Reason for Referral: Evaluation/Treatment Medical History Pertinent Medical History: Atrial Fib, Arthritis, CABG, CAD, COPD, DM, GERD, HTN, CT, Neuropathy, Renal Insufficiency Current History EMS secondary to missed last step in home landing on left hip resulting in fracture Reviewed History: Yes Social History Home: Single Level Current Living Status: Significant Other PT Steps Into Home: 2 Prior/Core FIM Prior Level of Function Therapy Code Descriptions/Definitions Functional Rapides Measure: 0=Not Assessed/NA 4=Minimal Assistance 1=Total Assistance 5=Supervision or Setup 2=Maximal Assistance 6=Modified Rapides 3=Moderate Assistance 7=Complete Rapides Therapy Quality Codes: 6 Independent with activity with or without an assistive device 5 Patient requires set up or clean up by helper. Patient completes activity by themselves 4 Supervision or touching assist (CGA). [place] provide cues , steadying assist 3 The helper provides less than half the effort to complete the activity 2 The helper provides more than half the effort to complete the activity 1 Dependent. The helper does all the effort to complete an activity 7 Patient refused to complete or attempt activity 9 The patient did not perform the activity before the current illness or injury 88 Not attempted due to Medical conditions or safety concerns Functional Abilities and Goals: Independent: Patient completed the activities by him/herself, with or without an assistive device, with no assistance from a helper. Needed Some Help: Patient needed partial assistance from another person to complete activities. Dependent: A helper completed the activities for the patient. Unknown: Not Applicable: Bed Mobility: 7 Transfers (B,C,W/C) (FIM): 7 Gait: 7 Stairs: 7 Indoor Mobility (Ambulation): Independent Stairs: Independent Prior Devices Use: None PT Evaluation-Current Subjective Patient agrees to PT. No c/o. Pain Numeric Pain Scale: 5-Moderate Pain Location: Left Location Body Site: Hip Pain Description: Acute Objective Patient Orientation: Normal For Age Problem Solving: Fair Attachments: Garcia Catheter, IV ROM/Strength ROM Lower Extremities left LE limited due to pain/right LE WFL Strength Lower Extremities left LE 3-/5 grossly/right LE 4-/5 grossly Integumentary/Posture Integumentary refer to nursing notes Bowel Incontinence: No Bladder Incontinence: Garcia Cath Posture WFL Neuromuscular (Tone, Coordination, Reflexes) grossly intact Sensory Vision: Functional Hearing: Functional Hand Dominance: Right Sensation Right Lower Extremit: Intact Sensation Left Lower Extremity: Intact Transfers Therapy Code Descriptions/Definitions Functional Rapides Measure: 0=Not Assessed/NA 4=Minimal Assistance 1=Total Assistance 5=Supervision or Setup 2=Maximal Assistance 6=Modified Rapides 3=Moderate Assistance 7=Complete Rapides Transfers (B, C, W/C) (FIM): 3 Scootin Rollin Supine to/from Sit: 3 Sit to/from Stand: 3 Gait Mode of Locomotion: Walk Anticipated Mode of Locomotion: Walk Gait (FIM): 1 Distance (FIM): 1=up to 49 ft Distance: 5' Gait Level of Assist: 3 Gait Persons Needed: 1 Gait Assistive Device: FWW Comments/Gait Description slow, antalgic Balance Sitting Static: Normal Sitting Dynamic: Normal Standing Static: Fair Standing Dynamic: Fair Assessment/Needs 78 y.o. male, will benefit from skilled PT to address functional strength and mobility to improve current LOF to safely return to home at maximum LOF. 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 Goals Ch[facility] Goals PT Ch[facility] Goals Time Frame: Jul 15, 2019 Transfers (B,C,W/C) (FIM): 6 Gait (FIM): 6 Gait distance (FIM): 3=150 ft Distance: 175' Gait Level of Assist: 6 Gait Assistive Device: FWW Stairs (FIM): 5 # of Steps: 12 Stairs Level Of Assist: 5 PT Plan Problem List Problem List: Activity Tolerance, Functional Strength, Gait, Bed Mobility Treatment/Plan Treatment Plan: Continue Plan of Care Treatment Plan: Bed Mobility, Education, Functional Activity Tessie, Functional Strength, Gait, Safety, Therapeutic Exercise, Transfers Treatment Duration: Jul 15, 2019 Frequency: 11 times per week Estimated Hrs Per Day: .5 hour per day Patient and/or Family Agrees t: Yes Time/GCodes Time In: 810 Time Out: 829 Total Billed Treatment Time: 19 [facility]PE[facility] PT Jun 20, 2019 10:07
[2019-06-20] MEDS: ONDANSETRON 4 MG/2 ML (SDV) Z0FRAN IVP PRN ×2 (10:11→17:22)
[2019-06-20] MEDS: LACTATED RINGERS 1,000 ML IV SCH ×2 (10:16→23:40)
[2019-06-20 12:00] VITALS: BP 110/58
[2019-06-20] MEDS: FLUTICASONE NASAL SPRAY (FLONASE) 16 GM BTL NS SCH (13:00)
[2019-06-20] MEDS: LORATADINE (CLARITIN) 10 MG TAB PO SCH (13:01)
[2019-06-20] MEDS: SENNA W/DOCUSATE (SENOKOT S) TABLET PO SCH ×2 (13:01→20:20)
--- NOTE | 2019-06-20 13:52 | Physical Therapy Daily Note ---
PT Daily Note-Current Subjective Patient agrees to PT. Pain Numeric Pain Scale: 8 Location: Left Location Body Site: Hip Pain Description: Acute Mental Status Patient Orientation: Normal For Age Attachments: Oxygen, Garcia Catheter, IV Transfers Therapy Code Descriptions/Definitions Functional Jenkins Measure: 0=Not Assessed/NA 4=Minimal Assistance 1=Total Assistance 5=Supervision or Setup 2=Maximal Assistance 6=Modified Jenkins 3=Moderate Assistance 7=Complete Jenkins Therapy Quality Codes: 6 Independent with activity with or without an assistive device 5 Patient requires set up or clean up by helper. Patient completes activity by themselves 4 Supervision or touching assist (CGA). [place] provide cues , steadying assist 3 The helper provides less than half the effort to complete the activity 2 The helper provides more than half the effort to complete the activity 1 Dependent. The helper does all the effort to complete an activity 7 Patient refused to complete or attempt activity 9 The patient did not perform the activity before the current illness or injury 88 Not attempted due to Medical conditions or safety concerns Transfers (B, C, W/C) (FIM): 3 Scootin Supine to/from Sit: 3 Sit to/from Stand: 3 Weight Bearing Right Lower Extremity: Right Weight Bearing/Tolerated Left Lower Extremity: Left Non Weight Bearing Gait Training Gait (FIM): 1 Distance (FIM): 1=up to 49 ft Distance: 25' Gait Level of Assist: 3 Gait Persons Needed: 1 Gait Assistive Device: FWW slow, antalgic gait sequence (impulsive to sit due to pain and weakness) Exercises Supine Ex: Ankle pumps, Quad Set, Heel Slides, Hip abd/add Supine Reps: 15 (AAROM left LE) Seated Therapy Exercises: Long arc quads Seated Reps: 15 Assessment Patient returned to bed after treatment. PT to increase activity as tolerated by patient. PT Fpc Goals Fpc Goals PT Fpc Goals Time Frame: Jul 15, 2019 Transfers (B,C,W/C) (FIM): 6 Gait (FIM): 6 Gait distance (FIM): 3=150 ft Distance: 175' Gait Level of Assist: 6 Gait Assistive Device: FWW Stairs (FIM): 5 # of Steps: 12 Stairs Level Of Assist: 5 PT Plan Treatment/Plan Treatment Plan: Continue Plan of Care Treatment Plan: Bed Mobility, Education, Functional Activity Tessie, Functional Strength, Gait, Safety, Therapeutic Exercise, Transfers Treatment Duration: Jul 15, 2019 Frequency: 11 times per week Estimated Hrs Per Day: .5 hour per day Patient and/or Family Agrees t: Yes Time/GCodes Time In: 1300 Time Out: 1323 Total Billed Treatment Time: 23 Total Billed Treatment 1 visit EX 15 min GT 8 min LUIS CHAPPELL PT Jun 20, 2019 13:52
--- NOTE | 2019-06-20 14:39 | Pulmonary Progress Note ---
Subjective Time Seen by a Provider: 14:38 Subjective/Events-last exam Complains of upper respiratory congestion Sepsis Event Evaluation Height, Weight, BMI Height: 5'11.00" Weight: 172lbs. 0.0oz. 78.587933za; 24.0 BMI Method:Stated Exam Exam Vital Signs Date Time Temp Pulse Resp B/P (MAP) Pulse Ox O2 Delivery O2 Flow Rate FiO2 06/20/19 12:00 98.3 100 20 110/58 (75) 94 Nasal Cannula 2.00 06/20/19 08:00 98.8 100 18 112/56 (74) 93 Room Air 06/20/19 08:00 95 Room Air 06/20/19 03:59 98.9 77 18 106/58 (74) 94 06/20/19 00:00 99.0 98 20 132/78 (96) 95 06/19/19 20:40 100.0 06/19/19 20:30 90 Room Air 1.00 06/19/19 20:10 102.0 06/19/19 19:56 102.2 108 20 113/67 (82) 90 Room Air 06/19/19 18:00 Room Air 06/19/19 15:54 99.2 106 20 129/73 (91) 90 Room Air I & O 06/20/19 07:00 Intake Total 2110 ml Output Total 1315 ml Balance 795 ml Height & Weight Height: 5'11.00" Weight: 172lbs. 0.0oz. 78.940615si; 24.0 BMI Method:Stated General Appearance: No Apparent Distress, WD/WN, Chronically ill, Thin, Other (frail) HEENT: PERRL/EOMI, Normal ENT Inspection, Pharynx Normal, Moist Mucous Membra celestino Neck: Full Range of Motion, Normal Inspection, Non Tender Respiratory: Chest Non Tender, Lungs Clear, Normal Breath Sounds, No Accessory Muscle Use, No Respiratory Distress Cardiovascular: Regular Rate, Rhythm, No Edema, No Gallop, No JVD, No Murmur, Normal Peripheral Pulses Capillary Refill: Less Than 3 Seconds Peripheral Pulses: 2+ Radial Pulses (R), 2+ Radial Pulses (L) Gastrointestinal: normal bowel sounds, non tender, soft Extremity: Normal Capillary Refill, Normal Inspection, Normal Range of Motion (except left leg), Non Tender, No Calf Tenderness, No Pedal Edema Neurologic/Psychiatric: Alert, Oriented x3, No Motor/Sensory Deficits, Normal Mood/Affect Skin: Normal Color, Warm/Dry Lymphatic: No Adenopathy Results Lab Laboratory Tests 06/18/19 15:57 06/19/19 05:45 06/20/19 05:05 Assessment/Plan Assessment/Plan Left femur fracture s/p mechanical fall -Plan is for surgical repair today COPD/Allergic rhinitis -SVNs -Singulair, claritin DM Neuropathy HTN hx of ALL Ischemic cardiomyopathy hx ELLE CORMIER DO Jun 20, 2019 14:39
--- NOTE | 2019-06-20 15:24 | NUR ---
IRF Evaluation Order received to evaluate patient for ARU. Chart review complete and findings discussed with Dr. Watts - patient accepted for admission. Anticipate admission, 06/21. Met with patient to discuss details specific to rehabilitation program. Patient is familiar with program as he has previously been a patient. Patient agreeable to required therapy regimen and admission. Thank you for this referral.
[2019-06-20 15:30] VITALS: BP 116/68
--- NOTE | 2019-06-20 18:48 | CONSULTATION REPORT ---
DATE OF SERVICE: The patient is admitted to room 429. PHYSICIAN REQUESTING CONSULTATION: Rosalinda Watts DO IMPRESSION: 1. 78-year-old male with history of fall and left intertrochanteric fracture, status post surgical repair on 06/19/2019. 2. 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 This was complicated by cardiomyopathy and renal failure. A bone marrow biopsy showed a complete response and he was started on maintenance chemotherapy with POMP regimen for two years and stopped in 06/2017. He has been on surveillance since then without evidence of residual or recurrent ALL. 3. Borderline thrombocytopenia probably related to surgery and/or medications. Continue to monitor serially. 4. History of coronary artery disease with CABG and stent placements in the past. RECOMMENDATIONS: 1. Continue postoperative care as you are doing. 2. Monitor CBC serially and if the thrombocytopenia is worsening or any evidence of bleeding, stop prophylactic Lovenox. Currently, there is no contraindication for Lovenox therapy. 3. Continue with rehabilitation as tolerated and early ambulation. 4. We will follow the patient with you. BRIEF HISTORY: The patient is a 78-year-old male, who had a fall at home and was brought to the emergency room. He was noted to have left intertrochanteric fracture and was admitted to the hospital for further management. He underwent orthopedic surgery with nail placement on 06/19/2019. Today, he complained of postoperative discomfort and moderate pain on weightbearing. He has a previous history of ALL. It was treated as mentioned above and has been in complete remission. He has baseline borderline thrombocytopenia. Because of this, a Hematology consultation was requested. PAST MEDICAL HISTORY: Significant for ALL diagnosed in 04/2015. It was treated with hyper-CVAD cycle A at [facility]. This was complicated by cardiomyopathy, renal failure and significant deconditioning. Because of this, further chemotherapy was discontinued and a followup bone marrow aspiration showed a complete response. He was then started on maintenance treatment with POMP regimen with a dose reduction for his renal function and continued for two years and stopped in 06/2017. He had required dose reduction because of peripheral neuropathy. He has not had any evidence of recurrent ALL and is on surveillance. The patient has had significant thrombocytopenia with any minor infection, but has recovered from this without any intervention other than treatment of the infection and supportive care. Other significant medical history include hypertension and hyperlipidemia. Coronary artery disease requiring CABG x3 in 2004 as well as bilateral mild carotid artery disease. The patient developed congestive heart failure due to cardiomyopathy following chemotherapy as mentioned above. This has improved over time with the most recent echocardiogram from late 2018 showing ejection fraction in the 50 to 55% range. He has diabetes mellitus type 2, which is fairly controlled with medications. Previous history of atrial flutter requiring ablation in 2004. SOCIAL HISTORY: The patient is and lives in [place], [place]. 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 No significant history of tobacco, alcohol or other recreational drug use. PHYSICAL EXAMINATION: GENERAL: Today showed an elderly male, well-developed, well-nourished, awake and oriented, in mild discomfort due to postoperative pain. VITAL SIGNS: His temperature was 99.2, pulse rate of 100, respirations 20, blood pressure 116/68, oxygen saturation of 96% on 2 liters of oxygen by nasal cannula. HEENT: Normocephalic, extraocular muscles intact, conjunctivae pink, oral mucosa moist. NECK: Supple, with no JVD. No cervical, supraclavicular or axillary lymphadenopathy palpable. CHEST: Symmetrical. LUNGS: Fairly clear to auscultation without wheezes or rales. CARDIOVASCULAR: Regular in rate and rhythm. No murmurs or gallops heard. ABDOMEN: Soft, nontender with no hepatosplenomegaly or other masses palpable. EXTREMITIES: Showed postoperative changes of the left hip. No edema of the lower extremities. SCDs present. LABORATORY DATA: CBC done today showed white count of 8.9, hemoglobin 9.3 and platelet count of 126,000 with neutrophil count of 6.4, lymphocyte count 1.3 and monocyte count of 0.9. CBC done at the time of admission had shown white count of 6.7, hemoglobin 12.1 and platelet count of 155,000. Chemistry panel today showed normal electrolytes. BUN was 14 and creatinine 1.24 with GFR 56 mL per minute. Blood sugar was 269. Liver function studies were within normal limits. X-ray of the left hip done on 06/18/2019 at the emergency room showed a comminuted displaced left intertrochanteric femur fracture. Thank you for allowing me to participate in this patient's care. I will follow the patient with you and make appropriate recommendations. Job ID: [id number] DocumentID: [id number] Dictated Date: 06/20/2019 18:03:51 Loss Prevention And Safety Manager Date: 06/20/2019 18:46:35 Dictated By: JORGE CARDENAS MD MTDD
[2019-06-20 19:48] VITALS: BP 112/64
[2019-06-20] MEDS: MELATONIN 3 MG TABLET PO PRN (20:19)
[2019-06-20] MEDS: MONTELUKAST 10 MG (SINGULAIR) TAB PO SCH (20:19)
[2019-06-20] MEDS: ALPRAZolam 0.25 MG (XANAX) TAB PO PRN (20:19)
[2019-06-20] MEDS: HYDROcodone/APAP 10 MG/325 MG (LORTAB) TAB PO PRN (20:21)
[2019-06-20] MEDS: ENOXAPARIN 40 MG/0.4 ML (LOVENOX) SYR SC SCH (20:23)
[2019-06-21] VITALS (22 sets, daily range): BP systolic 68–147; BP diastolic 51–109
[2019-06-21] MEDS: LACTATED RINGERS 1,000 ML IV SCH ×2 (01:58→21:06)
[2019-06-21 05:23] LABS: BASOPHILS % (AUTO) 0 % (0-10); EOSINOPHILS # (AUTO) 0.2 10^3/uL (0.0-0.3); EOSINOPHILS % (AUTO) 3 % (0-10); HEMATOCRIT 22 % (40-54); HEMOGLOBIN 7.5 G/DL (13.3-17.7); LYMPHOCYTES # (AUTO) 1.1 X 10^3 (1.0-4.0); LYMPHOCYTES % (AUTO) 17 % (12-44); MEAN CORPUSCULAR HEMOGLOBIN 32 PG (25-34); MEAN CORPUSCULAR HGB CONC 34 G/DL (32-36); MEAN CORPUSCULAR VOLUME 96 FL (80-99); MEAN PLATELET VOLUME 8.7 FL (7.4-10.4); MONOCYTES # (AUTO) 0.7 X 10^3 (0.0-1.0); MONOCYTES % (AUTO) 11 % (0-12); NEUTROPHILS # (AUTO) 4.3 X 10^3 (1.8-7.8); NEUTROPHILS % (AUTO) 69 % (42-75); PLATELET COUNT 91 10^3/uL (130-400); RED CELL DISTRIBUTION WIDTH 13.5 % (10.0-14.5); WHITE BLOOD COUNT 6.3 10^3/uL (4.3-11.0)
[2019-06-21] MEDS: inSUlin ASPART (NovoLOG) 1 UNIT/0.01 ML (CHARGE PER UNIT) SC SCH ×6 (05:46→21:13)
[2019-06-21 05:56] LABS: ALANINE AMINOTRANSFERASE 9 U/L (0-55); ALBUMIN 3.1 GM/DL (3.2-4.5); ALKALINE PHOSPHATASE 46 U/L (40-136); BILIRUBIN,TOTAL 0.6 MG/DL (0.1-1.0); BUN/CREATININE RATIO 15; CARBON DIOXIDE 23 MMOL/L (21-32); CHLORIDE 104 MMOL/L (98-107); CREATININE SERUM 1.03 MG/DL (0.60-1.30); GFR ESTIMATED > 60; GLUCOSE 194 MG/DL (70-105); SODIUM 138 MMOL/L (135-145); TOTAL PROTEIN 5.5 GM/DL (6.4-8.2)
--- NOTE | 2019-06-21 07:45 | NUR ---
SITTING UP ON SIDE OF BED. SKIN CLAMMY. C/O OF SOA. RESP-20 NW=795/60 AP-130. COLOR PALE. DR. ARENAS NOIFIED. DR. RASHID NOTIFIED. DR. TANG NOTIFIED.
--- NOTE | 2019-06-21 08:00 | NUR ---
TELEMETRY APPLIED. SKIN W/D. PT. STATES FEELING BETTER. BC=744. DRY COUGH AT TIMES. IV FLUIDS SALINE LOCKED PER DR. OSBORN ORDERS.
--- NOTE | 2019-06-21 09:03 | Diagnostic Imaging Report ---
INDICATION: Dyspnea. Upright portable AP view of the chest is obtained with comparison made study of 06/18/2019. FINDINGS: There is bilateral air trapping. Prominent interstitial markings are seen throughout the lungs. There is no evidence of pneumothorax. No consolidation or significant pleural fluid is detected. Right anterior chest wall port remains in stable position. IMPRESSION: Air trapping likely related to emphysema and background COPD. No definite acute abnormality is identified. Dictated by: Dictated on workstation # [id number]
--- NOTE | 2019-06-21 09:09 | Progress Note - Ortho ---
Progress Note Subjective Date of Exam 06/21/19 Chief Complaint POD#2 long TFN intertrochanteric fracture left hip HPI/Events since last exam Mr. Watts is 2 days postop. His temp is 98.8. When I went into the room his daughter Dr. Watts was there. She thought he was little diaphoretic and short of breath. His hemoglobin was 7.5. She talked to Dr. Nettles and a recommend discontinuing Lovenox in transfusing with 2 units of packed red blood cells. He states his hip is doing fairly well with less pain. Review of Systems Reviewed and no additions or changes Allergies: Coded Allergies: No Known Drug Allergies (Verified , 09/19/08) Home Meds Active Scripts Albuterol Sulfate (Albuterol Sulfate) 2.5 Mg/3 Ml Vial.neb, 2.5 MG INH TID, #60 EA Prov:ADALBERTO WATTS DO 10/19/18 L. Acidophilus/Bulgaricus (Floranex Granules Packet) 1 Each Gran.pack, 1 GM PO ACHS, #60 EA Prov:ADALBERTO WATTS DO 10/19/18 Pantoprazole Sodium (Pantoprazole Sodium) 40 Mg Tablet.dr, 40 MG PO DAILY, #30 TAB Prov:ADALBERTO WATTS DO 10/19/18 Fluticasone Propionate (Fluticasone Propionate) 16 Gm [place].susp, 2 SPRAY NS DAILY, #1 SPRAY Prov:ADALBERTO WATTS DO 10/19/18 Montelukast Sodium (Montelukast Sodium) 10 Mg Tablet, 10 MG PO HS, #30 TAB Prov:ADALBERTO WATTS DO 10/19/18 Loratadine (Loratadine) 10 Mg Tablet, 10 MG PO DAILY, #30 TAB Prov:ADALBERTO WATTS DO 10/19/18 Reported Medications Dextrose (Glucose) 4 Gm Tab.chew, 4 GM PO UD PRN for BS<120, TAB 02/24/19 Insulin Glargine,Hum.rec.anlog (Lantus Solostar) 100 Unit/1 Ml Insuln.pen, 15-20 UNITS SC HS, EA 02/24/19 Atorvastatin Calcium (Lipitor) 10 Mg Tablet, 10 MG PO DAILY, TAB 10/17/18 Aspirin (Aspirin EC) 81 Mg Tablet.dr, 81 MG PO DAILY, TAB 10/17/18 Galantamine HBr (Galantamine HBr) 8 Mg Tablet, 4 MG PO BID, TAB TAKES 1/2 (8MG) TABLET 10/17/18 Sacubitril/Valsartan (Entresto 24 mg-26 mg Tablet) 1 Each Tablet, 1 TAB PO BID, TAB 10/17/18 Metformin HCl (Metformin HCl) 500 Mg Tablet, 500 MG PO DAILY, TAB 10/17/18 Fluticasone/Salmeterol (Advair 250-50 Diskus) 1 Each Blst.w.dev, 1 PUFF IH BID, INHALER 08/28/16 Sertraline HCl (Sertraline HCl) 100 Mg Tablet, 100 MG PO DAILY, TAB 08/28/16 Carvedilol (Carvedilol) 3.125 Mg Tablet, 3.125 MG PO BID, TAB 08/28/16 Dronabinol (Dronabinol) 2.5 Mg Capsule, 2.5 MG PO BID, CAP 08/28/16 Methylphenidate HCl (Ritalin) 5 Mg Tablet, 5 MG PO BID, TAB 07/22/15 Insulin Lispro (Humalog Kwikpen) 100 Unit/1 Ml Insuln.pen, 15-25 UNITS SQ AC, EA 07/22/15 Objective Exam Constitutional: [] HEENT: [] Neck: [] Cardiovascular: [] Respiratory: [] Gastrointestinal: [] Genitourinary: [] Skin: [] Back/Spine: [] Extremities: [He has some mild swelling and bruising left proximal thigh. His dressing was removed and his incisions are healing well without redness or drainage. He has no pain at the knee. No calf tenderness and negative Homans. He has good strength on dorsiflexion and plantarflexion of the foot and ankle as well as toes. Normal sensation with good capillary refill and good pulses] Neurologic: [] Psychiatric: [] Hematologic/lymphatic/immunologic: [] Vital Signs Vital Signs Date Time Temp Pulse Resp B/P (MAP) Pulse Ox O2 Delivery O2 Flow Rate FiO2 06/21/19 04:00 98.8 109 16 102/60 (74) 95 Nasal Cannula 2.00 06/21/19 00:00 99.3 112 16 105/59 (74) 91 Nasal Cannula 2.00 06/20/19 20:00 95 Nasal Cannula 2.00 06/20/19 19:48 100.3 106 22 112/64 (80) 95 Nasal Cannula 2.00 06/20/19 15:30 99.2 0 2 116/68 (84) 96 Nasal Cannula 2.00 06/20/19 12:00 98.3 100 20 110/58 (75) 94 Nasal Cannula 2.00 I & O 06/21/19 07:00 Intake Total 1060 ml Output Total 1600 ml Balance -540 ml Lab Results Laboratory Tests 06/20/19 11:05: Glucometer 301H 06/20/19 15:27: Glucometer 237H 06/20/19 19:46: Glucometer 222H 06/21/19 05:14: White Blood Count 6.3, Red Blood Count 2.34L, Hemoglobin 7.5L, Hematocrit 22L, Mean Corpuscular Volume 96, Mean Corpuscular Hemoglobin 32, Mean Corpuscular Hemoglobin Concent 34, Red Cell Distribution Width 13.5, Platelet Count 91L, Mean Platelet Volume 8.7, Neutrophils (%) (Auto) 69, Lymphocytes (%) (Auto) 17, Monocytes (%) (Auto) 11, Eosinophils (%) (Auto) 3, Basophils (%) (Auto) 0, Neutrophils # (Auto) 4.3, Lymphocytes # (Auto) 1.1, Monocytes # (Auto) 0.7, Eosinophils # (Auto) 0.2, Basophils # (Auto) 0.0, Sodium Level 138, Potassium Level 4.0, Chloride Level 104, Carbon Dioxide Level 23, Anion Gap 11, Blood Urea Nitrogen 15, Creatinine 1.03, Estimat Glomerular Filtration Rate > 60, BUN/Creatinine Ratio 15, Glucose Level 194H, Calcium Level 8.0L, Corrected Calcium 8.7, Total Bilirubin 0.6, Aspartate Amino Transf (AST/SGOT) 21, Alanine Aminotransferase (ALT/SGPT) 9, Alkaline Phosphatase 46, Total Protein 5.5L, Albumin 3.1L 06/21/19 05:39: Glucometer 205H 06/21/19 08:21: Glucometer 358H Microbiology 06/18/19 MRSA Screen - Final, Complete MRSA not isolated Assessment and Plan Assessment 2 days postop long TFN left hip Problem List Unchanged except acute blood loss anemia secondary to the hip fracture/surgery and Lovenox pre-and postop Plan For transfusion today, 2 units of packed red blood cells. Hold on therapy. Again the dressing was changed and we'll change every other day. Final Diagonsis Status post long TFN for two-part intertrochanteric fracture left hip Acute blood loss anemia secondary to left hip fracture, surgery and use of Lovenox pre-and postop Level of the visit: Level 3 Clinical Quality Measures DVT/VTE Risk/Contraindication: Risk Factor Score Per Nursin RFS Level Per Nursing on Admit: 4+=Very High DAX YOUNG MD Jun 21, 2019 09:09
[2019-06-21] MEDS: SENNA W/DOCUSATE (SENOKOT S) TABLET PO SCH ×2 (09:42→21:14)
[2019-06-21] MEDS: LORATADINE (CLARITIN) 10 MG TAB PO SCH (09:42)
[2019-06-21] MEDS: FLUTICASONE NASAL SPRAY (FLONASE) 16 GM BTL NS SCH (09:43)
--- NOTE | 2019-06-21 09:44 | PM&R Progress Note ---
Subjective HPI/CC On Admission Date Seen by Provider: Jun 21, 2019 Time Seen by Provider: 09:00 Chief complaint: Left hip pain after fall History of present illness: This is a 78-year-old white male clinic patient of mine who has a past medical history of ischemic cardiomyopathy maintained on Entresto with impressive recovery of systolic function, CAD previous bypass managed by Dr Dr Foreman, acute lymphocytic leukemia in remission for the past [address] Perez, and diabetes mellitus insulin-dependent who pres ents to [facility] ER following a fall after he missed the last step down a spiral staircase at his daughter's house without any head injury or loss of consciousness or chest pain. He immediately felt hip pain could not move the leg or straighten the leg and ambulance was called. At this current time pat ient is received some pain medication and in the process of undergoing labs and x-rays to confirm suspected left femur fracture. Subjective/Events-last exam Pt had an uneventful night but became tachycardic in 130s and desat a bit requiring oxygen Repeat hgb was 7.5 and platelet counts 91 Dr. Nettles updated an he recommended giving two units of blood and stopping the Lovenox Elevated BNP and lactic acid prompted transfer to the ICU Dr. Alvarado consulted and he will start Zosyn, swab him for influenza and Dr. Foreman has been updated on elevated troponin and elevated BNP Ate a good breakfast before all this happened Will initiate PT to atleast not get too far behind Checked meds and labs Conferred with RN Appreciate all consultants help in this very complex medical pt He has become slightly delirious and will monitor closely Review of Systems General: Fatigue Pulmonary: Dyspnea, Cough Musculoskeletal: leg pain Neurological: Confusion Focused Exam Lactate Level 06/21/19 09:20: Lactic Acid Level 2.69*H 06/21/19 14:54: Lactic Acid Level 1.36 Lactic Acid Level Objective Exam Vital Signs Vital Signs Date Time Temp Pulse Resp B/P (MAP) Pulse Ox O2 Delivery O2 Flow Rate FiO2 06/21/19 17:00 108 12 119/78 (92) Room Air 06/21/19 16:08 98.4 06/21/19 16:06 95 2.00 Capillary Refill : Less Than 3 SecondsLess Than 3 Seconds General Appearance: WD/WN, Chronically ill, Mild Distress, Thin, Other (frail) HEENT: PERRL/EOMI, Normal ENT Inspection, Pharynx Normal, Moist Mucous Membranes Neck: Full Range of Motion, Normal Inspection, Non Tender Respiratory: Chest Non Tender, No Accessory Muscle Use, No Respiratory Distress, Decreased Breath Sounds Cardiovascular: Regular Rate, Rhythm, No Edema, No Gallop, No JVD, No Murmur, N ormal Peripheral Pulses Gastrointestinal: Normal Bowel Sounds, No Organomegaly, No Pulsatile Mass, Non Tender, Soft Back: Normal Inspection, No CVA Tenderness, No Vertebral Tenderness Extremity: Normal Capillary Refill, Normal Inspection, Normal Range of Motion (except left leg), Non Tender, No Calf Tenderness, No Pedal Edema Neurologic/Psychiatric: Alert, Oriented x3, No Motor/Sensory Deficits, Normal Mood/Affect, Disoriented Skin: Normal Color, Warm/Dry Lymphatic: No Adenopathy Results/Procedures Lab Laboratory Tests 06/21/19 05:14 Patient resulted labs reviewed. FIM Transfers Therapy Code Descriptions/Definitions Functional [place] Measure: 0=Not Assessed/NA 4=Minimal Assistance 1=Total Assistance 5=Supervision or Setup 2=Maximal Assistance 6=Modified [place] 3=Moderate Assistance 7=Complete [place] Therapy Quality Codes: 6 Independent with activity with or without an assistive device 5 Patient requires set up or clean up by helper. Patient completes activity by themselves 4 Supervision or touching assist (CGA). [place] provide cues , steadying assist 3 The helper provides less than half the effort to complete the activity 2 The helper provides more than half the effort to complete the activity 1 Dependent. The helper does all the effort to complete an activity 7 Patient refused to complete or attempt activity 9 The patient did not perform the activity before the current illness or injury 88 Not attempted due to Medical conditions or safety concerns Transfers (B, C, W/C) (FIM): 3 Scootin Rollin Supine to/from Sit: 3 Sit to/from Stand: 3 Gait Training Gait (FIM): 1 Distance (FIM): 1=up to 49 ft Distance: 25' Gait Level of Assist: 3 Gait Persons Needed: 1 Gait Assistive Device: FWW ADL-Treatment Feedin Groomin (seated setup ) Lower Extremity Dressin (marcial socks ) Assessment/Plan Assessment and Plan Assess & Plan/Chief Complaint Assessment: Left femur fracture s/p fall after missed 1 step on stairs Wednesday at 1445 s/p uncomplicated repair POD # [address] Richards Acute pulmonary edema with elevated BNP, lactic acid and troponin COPD on Singulair and Claritin and ICS prn 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 diff history h/o ARF while at [facility] for ALL induction PUD Remission for acute lymphocytic leukemia for [address] Perez Ischemic cardiomyopathy with improvement in ejection fraction from 30 percent to 55 percent due to Entresto management Plan: Monitor labs and respiratory status Transfer to ICU DVT PPx Monitor for ACS and CHF Appreciate Dr Foreman and Dr Richards and Dr Nettles and Dr Alvarado PT/OT IRF Garcia cath DC in future Lovenox held Give 2 units of blood (1) Fracture of femur, intertrochanteric, left, closed Status: Acute Qualifiers: Encounter type: initial encounter Fracture alignment: nondisplaced Qualified Codes: S72.145A - Nondisplaced intertrochanteric fracture of left femur, initial encounter for closed fracture (2) Fall Status: Acute Qualifiers: Encounter type: initial encounter Qualified Codes: W19.XXXA - Unspecified fall, initial encounter (3) Ischemic cardiomyopathy Status: Chronic (4) Renal insufficiency Status: Chronic (5) Neuropathy Status: Chronic (6) Hx of CABG Status: Chronic (7) COPD (chronic obstructive pulmonary disease) (8) History of Clostridium difficile infection Status: Chronic (9) Hypertension Status: Chronic Qualifiers: Hypertension type: essential hypertension Qualified Codes: I10 - Essential (primary) hypertension (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 (11) CAD (coronary artery disease) Status: Chronic Qualifiers: Coronary Disease-Associated Artery/Lesion type: [place] artery [place] vs. transplanted heart: [place] heart Associated angina: without angina Qualified Codes: I25.10 - Atherosclerotic heart disease of [place] coronary artery without angina pectoris (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 Qualifiers: Laterality: left Qualified Codes: G57.02 - Lesion of sciatic nerve, left lower limb (13) Flash pulmonary edema (14) Sepsis Status: Acute Qualifiers: Sepsis type: sepsis due to unspecified organism Sepsis acute organ d ysfunction status: unspecified Qualified Codes: A41.9 - Sepsis, unspecified organism (15) Elevated lactic acid level Status: Acute (16) Transfusion of blood during current hospitalization Status: Acute (17) Postoperative anemia Status: Acute (18) Troponin level elevated Status: Acute (19) Elevated brain natriuretic peptide (BNP) level Status: Acute ADALBERTO ARENAS DO Jun 21, 2019 09:44
[2019-06-21] MEDS ORDERED: NS IV 500 ML 500 ML IV SCH (09:45)
[2019-06-21 09:56] LABS: MAGNESIUM 1.3 MG/DL (1.6-2.4); PHOSPHORUS 2.8 MG/DL (2.3-4.7)
--- NOTE | 2019-06-21 10:00 | NUR ---
IN BED RESTING QUIETLY. NO DISTRESS NOTED AT THIS TIME
--- NOTE | 2019-06-21 10:08 | Cardiology Progress Note ---
Subjective Date Seen by Provider: Jun 21, 2019 Time Seen by Provider: 10:06 Subjective/Events-last exam patient is laying down in bed, feeling slightly better, had an episode of diaphoresis and shortness of breath earlier. Denied chest pain. Review of Systems General: No Chills, No Night Sweats; Fatigue, Malaise; No Appetite, No Other HEENT: No Head Aches, No Visual Changes, No Eye Pain, No Ear Pain, No Dysphasia, No Sinus Congestion, No Post Nasal Drip, No Sore Throat, No Other Pulmonary: Dyspnea; No Cough, No Pleuritic Chest Pain, No Other Cardiovascular: No: Chest Pain, Palpitations, Orthopnea, Paroxysmal Noc. Dys pnea, Edema, Lt Headedness, Other Focused Exam Lactate Level 06/21/19 09:20: Lactic Acid Level 2.69*H 06/21/19 14:54: Lactic Acid Level Laboratory Tests Test 06/21/19 14:54 Objective-Cardiology Exam Last Set of Vital Signs Vital Signs 06/21/19 14:08 Temp 98.9 Pulse 107 Resp 13 B/P (MAP) 129/109 Pulse Ox 99 O2 Delivery Nasal Cannula O2 Flow Rate 2.00 Capillary Refill : Less Than 3 SecondsLess Than 3 Seconds I&O Intake and Output 06/21/19 00:00 Intake Total 1160 ml Output Total 1600 ml Balance -440 ml Intake Oral 1160 ml Output Urine Total 1600 ml General: Alert, Oriented X3, Cooperative, Moderate Distress HEENT: Atraumatic, PERRLA Neck: Supple, No JVD, No Thyromegaly Lungs: Normal Air Movement, Other (rhonchi) Heart: Regular Rate, Normal S1, Normal S2, No Murmurs Abdomen: Normal Bowel Sounds, Soft, No Tenderness, No Hepatosplenomegaly, No Masses Extremities: No Clubbing, No Cyanosis, No Edema, Normal Pulses, No Tenderness/Swelling Skin: No Rashes, No Breakdown, No Significant Lesion Neuro: Normal Speech, Strength at 5/5 X4 Ext Psych/Mental Status: Mental Status NL, Mood NL Results Lab Laboratory Tests 06/21/19 05:14 A/P-Cardiology Admission Diagnosis Hip fracture Coronary artery disease Carotid stenosis ALL Assessment/Plan Left femur fracture, post surgical repair done on June 19, 2019. Continue to monitor Anemia, mild thrombocytopenia, worse today, receiving blood transfusion, managed by Dr. Perez and Dr. Watts. 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 Coronary artery disease status post CABG x3 in 2004, cardiac catheterization in April 2014 which showed patent bypass grafts with small vessel disease distally mainly in the LAD system that was receiving retrograde collateral, treated conservatively. Cardiac catheterization was done on November 07, 2014 showing small vessel disease, patent MAHONEY to LAD, vein graft to the circumflex artery and vein graft to the right coronary artery, repeat cardiac catheterization was done in August 2016 showing patent MAHONEY to LAD, vein graft to the obtuse marginal branch with sluggish flow in the [place] circumflex artery, patent vein graft to the right coronary artery, the proximal [place] coronary arteries appear slightly worse with occlusion of the left main, the LAD and diagonal artery are getting collaterals from the right system. He has been asymptomatic. Continue to monitor. Mild bilateral carotid stenosis, ultrasound was done in March 2018. Continue to monitor History of esophageal spasm, EGD by Dr. Manzanares , reporting improvement. 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 Nettles, continue to monitor. 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 Nettles. Hypertension, controlled on current medication, continue to monitor Hyperlipidemia, continue to monitor lipids. Managed by Dr. Watts. Diabetes mellitus, managed and followed by primary care physician. History of atrial flutter status post ablation in 2004, currently in sinus rhythm. Continue to monitor Clinical Quality Measures DVT/VTE Risk/Contraindication: Risk Factor Score Per Nursin RFS Level Per Nursing on Admit: 4+=Very High CHRISTOPHER TANG MD Jun 21, 2019 10:08
--- NOTE | 2019-06-21 10:19 | NUR ---
TRANSFERRED FROM 429 TO ICU 9 REPORT GIVEN TO MARTINA BREWSTER.
--- NOTE | 2019-06-21 13:26 | Occ Therapy Progress Note ---
Therapy Progress Note d/c pt at this time due to pt transferring to ICU, secondary to decline in medical status. New orders will be required secondary to pt transferring to ICU. BROOKS PATEL OT Jun 21, 2019 13:25
[2019-06-21] MEDS ORDERED: RT-ALBUTEROL/IPRATROPIUM 3 ML (DUONEB) VIAL ONE (14:24)
[2019-06-21] MEDS ORDERED: RT-ALBUTEROL/IPRATROPIUM 3 ML (DUONEB) VIAL INH PRN (14:30)
[2019-06-21] MEDS ORDERED: PIPERACILLIN/TAZOBACTAM (BULK) 4.5 GM in NS (IVPB) 100 ML IV SCH (14:30)
[2019-06-21] MEDS ORDERED: PIPERACILLIN/TAZO 4.5 GM/NS 100 ML IV NR ×2 (15:00)
[2019-06-21] MEDS ORDERED: FUROSEMIDE 40 MG/4 ML INJ (LASIX) IVP NR (15:15)
--- NOTE | 2019-06-21 15:26 | Occupational Therapy Eval ---
OT Evaluation-General/PLF Medical Diagnosis Admission Date Jun 18, 2019 at 16:50 Medical Diagnosis: FALL, L FEMUR FX, Onset Date: Jun 20, 2019 Therapy Diagnosis Therapy Diagnosis: impaired ADLs and mobility Height/Weight Height (Feet): 5 Height (Inches): 11.00 Weight (Pounds): 172 Weight (Ounces): 0.0 Precautions Precautions/Isolations: Fall Prevention, Standard Precautions Safety Interventions: Bed Exit Alarm Weight Bear Status Weight Bearing Restriction: Weight Bearing/Tolerated Location Restriction: L LE Referral Physician: Susie Referral Reason: Activity Tolerance, Self Care, Evaluation/Treatment, Strengthening/ROM Medical History Pertinent Medical History: Atrial Fib, Arthritis, CABG, CAD, COPD, DM, GERD, HTN, [place], Neuropathy, Renal Insufficiency Current History Per H&P: "This is a 78-[facility] who has a past medical history of ischemic cardiomyopathy maintained on Entresto with impressive recovery of systolic function, CAD previous bypass managed by Dr Dr Foreman, acute lymphocytic leukemia in remission for the past [address] Perez, and diabetes mellitus insulin-dependent who presents to [facility] ER following a fall after he missed the last step down a spiral staircase at his daughter's house without any head injury or loss of consciousness or chest pain. He immediately felt hip pain could not move the leg or straighten the leg and ambulance was called. At this current time patient is received some pain m edication and in the process of undergoing labs and x-rays to confirm suspected left femur fracture." Pt underwent surgery on 06/19/19. Status post long TFN left hip for 2 part intertrochanteric fracture. Pt transferred to ICU on 06/21/19, being re-evaled by OT secondary to transfer to ICU and decline in medical status. Reviewed History: Yes Social History Home: Single Level Current Living Status: Significant Other Entry Into Home: Stairs With Railing Steps Into Home: 2 ADL-Prior Level of Function Therapy Code Descriptions/Definitions Functional [place] Measure: 0=Not Assessed/NA 4=Minimal Assistance 1=Total Assistance 5=Supervision or Setup 2=Maximal Assistance 6=Modified [place] 3=Moderate Assistance 7=Complete [place] Therapy Quality Codes: 6 Independent with activity with or without an assistive device 5 Patient requires set up or clean up by helper. Patient completes activity by themselves 4 Supervision or touching assist (CGA). [place] provide cues , steadying assist 3 The helper provides less than half the effort to complete the activity 2 The helper provides more than half the effort to complete the activity 1 Dependent. The helper does all the effort to complete an activity 7 Patient refused to complete or attempt activity 9 The patient did not perform the activity before the current illness or injury 88 Not attempted due to Medical conditions or safety concerns Functional Abilities and Goals: Independent: Patient completed the activities by him/herself, with or without an assistive device, with no assistance from a helper. Needed Some Help: Patient needed partial assistance from another person to complete activities. Dependent: A helper completed the activities for the patient. Unknown: Not Applicable: ADL PLOF Comments Pt reported he was independent with ADLs prior to hospitalization including bathing, dressing, functional mobility. Self Care: Independent Functional Cognition: Independent DME/Equipment: Bath Chair, Tub/Shower DME/Equipment Comments walker Drive Self: Yes OT Current Status Subjective Pt laying in bed at start of session. Agreed to OT/PT co-evaluation. Pt denies pain while laying in bed. Mental Status/Objective Patient Orientation: Person, Place, Time, Situation Attachments: Garcia Catheter, IV, Oxygen, Telemetry Current Glasses/Contacts: Yes Hearing Aids: No Dentures/Partials: Yes Hand Dominance: Right Upper Extremity ROM WFL, pt able to reach hands behind head. Upper Extremity Coordination WFL finger to nose test and thumb opposition to each finger. Upper Extremity Sensation WNL light touch Upper Extremity Strength 4-/5 MMT ADL-Treatment Therapy Code Descriptions/Definitions Functional [place] Measure: 0=Not Assessed/NA 4=Minimal Assistance 1=Total Assistance 5=Supervision or Setup 2=Maximal Assistance 6=Modified [place] 3=Moderate Assistance 7=Complete [place] Therapy Quality Codes: 6 Independent with activity with or without an assistive device 5 Patient requires set up or clean up by helper. Patient completes activity by themselves 4 Supervision or touching assist (CGA). [place] provide cues , steadying assist 3 The helper provides less than half the effort to complete the activity 2 The helper provides more than half the effort to complete the activity 1 Dependent. The helper does all the effort to complete an activity 7 Patient refused to complete or attempt activity 9 The patient did not perform the activity before the current illness or injury 88 Not attempted due to Medical conditions or safety concerns Grooming (FIM): 5 Lower Body Dressing (FIM): 1 Transfers (B, C, W/C) (FIM): 3 Other Treatments OT co-eval with PT secondary to pt's decline in overall function requiring the skill of 2 disciplines that a rn cardiac rehab could not complete. Pt laying in bed at start of session, pt performed supine to sit with assist of LLE and trunk (max A) transferred to recliner sit to stand with Mod A stand pivot transfer with FWW, noted pt was confused. Post OT session, pt upright in recliner, call light in reach and all needs met. Education OT Patient Education: Correct positioning, Energy conservation, Progress toward Goal/Update tx plan, Purpose of tx/functional activities, Transfer techniques Teaching Recipient: Patient Teaching Methods: Demonstration Response to Teaching: Verbalize Understanding OT Short Term Goals Short Term Goals Time Frame: Jun 28, 2019 Bathing(FIM): 4 1=Demonstrate adherence to instructed precautions during ADL tasks. 2=Patient will verbalize/demonstrate understanding of assistive devices/modifications for ADL. 3=Patient will improve strength/tolerance for activity to enable patient to perform ADL's. OT Qc Chemist Goals Custodial Goals Time Frame: Jul 12, 2019 Eating (FIM): 6 Grooming(FIM): 6 Bathing(FIM): 5 Upper Body Dressing(FIM): 5 Lower Body Dressing(FIM): 5 Toileting(FIM): 5 Transfers (B,C,W/C) (FIM): 5 Toilet/Commode Transfer(FIM): 5 Additional Goals: 1-Demonstrate ADL Tasks, 2-Verbalize Understanding, 3- ImproveStrength/[place] 1=Demonstrate adherence to instructed precautions during ADL tasks. 2=Patient will verbalize/demonstrate understanding of assistive devices /modifications for ADL. 3=Patient will improve strength/tolerance for activity to enable patient to perform ADL's. OT Education/Plan Problem List/Assessment Assessment: Decreased Activ Tolerance, Decreased UE Strength, Impaired Bed Mobility, Impaired Funct Balance, Impaired I ADL's, Impaired Self-Care Skills Pt presents with confusion and impaired ADLs/functional mobility. OT services are appropriate and recommended to increase pt's independence in ADLs and func tional mobility. Pt is not safe to return home at this time secondary to above mentioned deficits. SNF vs Acute rehab Discharge Recommendations Plan/Recommendations: Continue POC Therapy Discharge Recommendati: Post Acute OT Treatment Plan/Plan of Care Treatment,Training & Education: Yes Patient would benefit from OT for education, treatment and training to promote independence in ADL's, mobility, safety and/or upper extremity function for ADL's. Plan of Care: ADL Retraining, Caregiver Training, Functional Mobility, Group Exercise/Act as Ind, UE Funct Exercise/Act Treatment Duration: Jul 12, 2019 Frequency: 5 times per week Estimated Hrs Per Day: .25 hour per day Agreement: Yes Rehab Potential: Fair Time/GCodes Start Time: 14:55 Stop Time: 15:14 Total Time Billed (hr/min): 19 Billed Treatment Time 1, BROOKS DOZIER OT Jun 21, 2019 15:26
--- NOTE | 2019-06-21 15:40 | Physical Therapy Evaluation ---
PT Evaluation-General Medical Diagnosis Admission Date Jun 18, 2019 at 16:50 Medical Diagnosis: FALL, L FEMUR FX, Onset Date: Jun 20, 2019 Therapy Diagnosis Therapy Diagnosis: impaired mobility, strength, endurance, balance Height/Weight Height (Feet): 5 Height (Inches): 11.00 Weight (Pounds): 172 Weight (Ounces): 0.0 Precautions Precautions/Isolations: Fall Prevention, Standard Precautions Weight Bear Status Right Lower Extremity: Right Weight Bearing/Tolerated Left Lower Extremity: Left Weight Bearing/Tolerated Referral Physician: Rosalinda Watts DO Reason for Referral: Evaluation/Treatment Medical History Pertinent Medical History: Atrial Fib, Arthritis, CABG, CAD, COPD, DM, GERD, HTN, [place], Neuropathy, Renal Insufficiency Reviewed History: Yes Social History Home: Single Level Current Living Status: Significant Other Entry Into Home: Stairs With Railing PT Steps Into Home: 2 Prior/Core FIM Prior Level of Function Therapy Code Descriptions/Definitions Functional [place] Measure: 0=Not Assessed/NA 4=Minimal Assistance 1=Total Assistance 5=Supervision or Setup 2=Maximal Assistance 6=Modified [place] 3=Moderate Assistance 7=Complete [place] Therapy Quality Codes: 6 Independent with activity with or without an assistive device 5 Patient requires set up or clean up by helper. Patient completes activity by themselves 4 Supervision or touching assist (CGA). [place] provide cues , steadying assist 3 The helper provides less than half the effort to complete the activity 2 The helper provides more than half the effort to complete the activity 1 Dependent. The helper does all the effort to complete an activity 7 Patient refused to complete or attempt activity 9 The patient did not perform the activity before the current illness or injury 88 Not attempted due to Medical conditions or safety concerns Functional Abilities and Goals: Independent: Patient completed the activities by him/herself, with or without an assistive device, with no assistance from a helper. Needed Some Help: Patient needed partial assistance from another person to com plete activities. Dependent: A helper completed the activities for the patient. Unknown: Not Applicable: Bed Mobility: 7 Transfers (B,C,W/C) (FIM): 7 Gait: 7 Stairs: 7 Indoor Mobility (Ambulation): Independent Stairs: Independent Prior Devices Use: None PT Evaluation-Current Subjective Patient in bed pre tx, agrees to PT, has no complaints of pain at rest. Will be co-treating with OT due to poor patient mobility, strength, endurance, confusion, the need to coordinate UE and LE activity, decline in medical status. Pt/Family Goals to be independent at home Objective Patient Orientation: Person, Confused Attachments: Oxygen, Garcia Catheter, IV Integumentary/Posture Bowel Incontinence: No Bladder Incontinence: Garcia Cath Sensory Vision: Functional Hearing: Functional Hand Dominance: Right Sensation Right Lower Extremit: Intact Sensation Left Lower Extremity: Intact Transfers Therapy Code Descriptions/Definitions Functional [place] Measure: 0=Not Assessed/NA 4=Minimal Assistance 1=Total Assistance 5=Supervision or Setup 2=Maximal Assistance 6=Modified [place] 3=Moderate Assistance 7=Complete [place] Transfers (B, C, W/C) (FIM): 3 Scootin Rollin Supine to/from Sit: 3 Sit to/from Stand: 3 Gait Mode of Locomotion: Both Anticipated Mode of Locomotion: Walk Gait (FIM): 1 Distance: 2' Gait Level of Assist: 3 Gait Persons Needed: 2 Gait Assistive Device: FWW Comments/Gait Description Patient did not bear any weight on his left leg. He took a few steps toward the recliner and sat. Patient needs cues for hand placement and positioning. Balance Sitting Static: Fair Sitting Dynamic: Fair Standing Static: Poor Standing Dynamic: Poor Treatment seated BLE exercises x15 (AP, LAQ) Assessment/Needs Patient has impaired mobility, strength, endurance, balance. He is in recliner post tx with nurse call, in room, has tray and chair alarm on. PT worked on LE exercise, transfers, ambulation, OT worked on UE positioning, safety, assist with transfers. Rehab Potential: Fair PT Short Term Goals Short Term Goals Time Frame: Jun 28, 2019 Transfers (B,C,W/C) (FIM): 4 Gait (FIM): 1 Gait Distance Comment: 20' Gait Level of Assist: 4 Gait Assistive Device: FWW PT Senior Care Goals Senior Care Goals PT Senior Care Goals Time Frame: Jul 15, 2019 Transfers (B,C,W/C) (FIM): 6 Gait (FIM): 6 Gait distance (FIM): 3=150 ft Distance: 175' Gait Level of Assist: 6 Gait Assistive Device: FWW Stairs (FIM): 5 # of Steps: 12 Stairs Level Of Assist: 5 PT Plan Problem List Problem List: Activity Tolerance, Functional Strength, Safety, Balance, Gait, Transfer, Bed Mobility, ROM Treatment/Plan Treatment Plan: Continue Plan of Care Treatment Plan: Bed Mobility, Education, Functional Activity Tessie, Functional Strength, Gait, Safety, Therapeutic Exercise, Transfers Treatment Duration: Jul 15, 2019 Frequency: 11 times per week Estimated Hrs Per Day: .25 hour per day Patient and/or Family Agrees t: Yes Safety Risks/Education Patient Education: Gait Training, Transfer Techniques, Correct Positioning, Safety Issues Teaching Recipient: Patient Teaching Methods: Demonstration, Discussion Response to Teaching: Reinforcement Needed Discharge Recommendations Plan Patient will perform bed mobility and transfer training, balance and endurance training, functional strengthening, stair training, gait training, and education, to improve functional mobility and independence at home. Therapy Discharge Recommendati: Other, See Comments (rehab) Time/GCodes Time In: 1455 Time Out: 1514 Total Billed Treatment Time: 19 Total Billed Treatment 1 visit EVM 19' Co-treated with OT for 19' EMPERATRIZ VERGARA PT Jun 21, 2019 15:40
[2019-06-21] MEDS: RT-ALBUTEROL/IPRATROPIUM 3 ML (DUONEB) VIAL INH SCH (20:30)
[2019-06-21] MEDS ORDERED: NON-FORMULARY MEDICATION 1 EA EA (Carvedilol 3.125 MG) PO SCH (21:00)
[2019-06-21] MEDS: CARVEDILOL 3.125 MG (COREG) TABLET PO SCH (21:06)
[2019-06-21] MEDS: MELATONIN 3 MG TABLET PO PRN (21:06)
[2019-06-21] MEDS: MONTELUKAST 10 MG (SINGULAIR) TAB PO SCH (21:06)
[2019-06-21] MEDS: SACUBITRIL/VALSARTAN 24/26 MG (ENTRESTO) TABLET PO SCH (21:06)
[2019-06-21] MEDS: PIPERACILLIN/TAZO 4.5 GM/NS 100 ML IV SCH ×2 (21:14)
[2019-06-22] VITALS (25 sets, daily range): BP systolic 82–143; BP diastolic 40–102
[2019-06-22] MEDS: HYDROcodone/APAP 10 MG/325 MG (LORTAB) TAB PO PRN ×2 (02:58→07:47)
--- NOTE | 2019-06-22 04:03 | Pulmonary Progress Note ---
Subjective Time Seen by a Provider: 06:39 Subjective/Events-last exam Sitting up in chair. Appears a little confused. RN states patient was having hallucinations last night. Sepsis Event Evaluation Height, Weight, BMI Height: 5'11.00" Weight: 172lbs. 0.0oz. 78.530198kk; 24.0 BMI Method:Stated Focused Exam Lactate Level 06/21/19 09:20: Lactic Acid Level 2.69*H 06/21/19 14:54: Lactic Acid Level 1.36 Exam Exam Vital Signs Date Time Temp Pulse Resp B/P (MAP) Pulse Ox O2 Delivery O2 Flow Rate FiO2 06/22/19 03:07 98.3 105 18 133/71 (91) 91 Room Air 06/22/19 02:13 98.3 98 18 108/74 (85) 100 Room Air 06/22/19 02:00 106 10 143/83 (103) 100 Room Air 06/22/19 01:29 98.3 102 14 111/102 (105) 98 Room Air 06/22/19 01:00 98 06/22/19 00:28 97 Nasal Cannula 2.00 06/21/19 23:52 98.3 98 18 105/56 (72) 100 Room Air 06/21/19 23:00 99 12 104/60 (75) Room Air 06/21/19 22:00 106 10 104/62 (76) Room Air 06/21/19 21:00 123 20 121/72 (88) Room Air 06/21/19 20:35 97 Nasal Cannula 2.00 06/21/19 20:30 98 Room Air 06/21/19 20:00 105 12 142/70 (94) Room Air 06/21/19 19:00 112 06/21/19 19:00 111 20 93/68 (76) Room Air 06/21/19 17:00 108 12 119/78 (92) Room Air 06/21/19 16:08 98.4 06/21/19 16:06 95 Nasal Cannula 2.00 06/21/19 16:00 105 9 147/62 (90) 100 Room Air 06/21/19 15:54 98 Nasal Cannula 1.50 06/21/19 15:46 98.4 99 46 145/69 Nasal Cannula 2.00 06/21/19 15:00 107 10 119/77 (91) 99 Nasal Cannula 3.00 9/4/19 14:08 98.9 107 13 129/109 99 Nasal Cannula 2.00 06/21/19 14:00 103 21 68/51 (57) 97 Nasal Cannula 3.00 06/21/19 13:58 99.1 105 16 132/78 99 Nasal Cannula 2.00 06/21/19 13:22 97.1 99 19 116/53 99 Nasal Cannula 2.00 06/21/19 13:00 100 51 121/69 (86) 99 Nasal Cannula 3.00 06/21/19 13:00 101 06/21/19 12:00 95 Nasal Cannula 2.00 06/21/19 12:00 97 22 116/57 (76) 100 Nasal Cannula 3.00 06/21/19 12:00 99.1 06/21/19 11:37 98.9 96 18 128/60 100 Room Air 06/21/19 11:22 98.0 106 14 126/65 100 Room Air 06/21/19 11:00 101 133/67 (89) 100 Nasal Cannula 3.00 06/21/19 08:44 110 06/21/19 08:00 95 Room Air 3.00 06/21/19 08:00 97.6 130 20 106/60 (75) 99 Nasal Cannula 3.00 I & O 06/22/19 07:00 Intake Total 1140 ml Output Total 2025 ml Balance -885 ml Height & Weight Height: 5'11.00" Weight: 172lbs. 0.0oz. 78.449908kw; 24.0 BMI Method:Stated General Appearance: No Apparent Distress, WD/WN, Chronically ill, Thin, Other (frail) HEENT: PERRL/EOMI, Normal ENT Inspection, Pharynx Normal, Moist Mucous Membranes Neck: Full Range of Motion, Normal Inspection, Non Tender Respiratory: Chest Non Tender, No Accessory Muscle Use, No Respiratory Distress, Decreased Breath Sounds Cardiovascular: Regular Rate, Rhythm, No Edema, No Gallop, No JVD, No Murmur, Normal Peripheral Pulses Capillary Refill: Less Than 3 Seconds Peripheral Pulses: 2+ Radial Pulses (R), 2+ Radial Pulses (L) Gastrointestinal: normal bowel sounds, non tender, soft Extremity: Normal Capillary Refill, Normal Inspection, Normal Range of Motion (except left leg), Non Tender, No Calf Tenderness, No Pedal Edema Neurologic/Psychiatric: Alert, Oriented x3, No Motor/Sensory Deficits, Normal Mood/Affect, Disoriented Skin: Normal Color, Warm/Dry Lymphatic: No Adenopathy Results Lab Laboratory Tests 06/20/19 05:05 06/21/19 05:14 Assessment/Plan Assessment/Plan Left femur fracture s/p mechanical fall -s/p surgical repair COPD/Allergic rhinitis -SVNs -Singulair, claritin Mild ICU psychosis -Will start Risperdal 0.5mg QHS and give 1 dose now. Metabolic lactic acidosis- improved -May need IVF bolus -monitor Sinusitis - zosyn -Continue Flonase, Claritin, Singulair DM -Start Levemir 15 units QHS secondary to hyperglycemia Neuropathy HTN hx of ALL Ischemic cardiomyopathy hx ELLE CORMIER DO Jun 22, 2019 04:03
--- NOTE | 2019-06-22 04:03 | Pulmonary Progress Note ---
Subjective Date Seen by a Provider: Jun 21, 2019 (late note) Time Seen by a Provider: 04:02 Subjective/Events-last exam Complains of productive cough of yellow sputum and sinus congestion. Sepsis Event Evaluation Height, Weight, BMI Height: 5'11.00" Weight: 172lbs. 0.0oz. 78.834309sv; 24.0 BMI Method:Stated Focused Exam Lactate Level 06/21/19 09:20: Lactic Acid Level 2.69*H 06/21/19 14:54: Lactic Acid Level 1.36 Exam Exam Vital Signs Date Time Temp Pulse Resp B/P (MAP) Pulse Ox O2 Delivery O2 Flow Rate FiO2 06/22/19 03:07 98.3 105 18 133/71 (91) 91 Room Air 06/22/19 02:13 98.3 98 18 108/74 (85) 100 Room Air 06/22/19 02:00 106 10 143/83 (103) 100 Room Air 06/22/19 01:29 98.3 102 14 111/102 (105) 98 Room Air 06/22/19 01:00 98 06/22/19 00:28 97 Nasal Cannula 2.00 06/21/19 23:52 98.3 98 18 105/56 (72) 100 Room Air 06/21/19 23:00 99 12 104/60 (75) Room Air 06/21/19 22:00 106 10 104/62 (76) Room Air 06/21/19 21:00 123 20 121/72 (88) Room Air 06/21/19 20:35 97 Nasal Cannula 2.00 06/21/19 20:30 98 Room Air 06/21/19 20:00 105 12 142/70 (94) Room Air 06/21/19 19:00 112 06/21/19 19:00 111 20 93/68 (76) Room Air 06/21/19 17:00 108 12 119/78 (92) Room Air 06/21/19 16:08 98.4 06/21/19 16:06 95 Nasal Cannula 2.00 06/21/19 16:00 105 9 147/62 (90) 100 Room Air 06/21/19 15:54 98 Nasal Cannula 1.50 06/21/19 15:46 98.4 99 46 145/69 Nasal Cannula 2.00 06/21/19 15:00 107 10 119/77 (91) 99 Nasal Cannula 3.00 06/21/19 14:08 98.9 107 13 129/109 99 Nasal Cannula 2.00 06/21/19 14:00 103 21 68/51 (57) 97 Nasal Cannula 3.00 06/21/19 13:58 99.1 105 16 132/78 99 Nasal Cannula 2.00 06/21/19 13:22 97.1 99 19 116/53 99 Nasal Cannula 2.00 06/21/19 13:00 100 51 121/69 (86) 99 Nasal Cannula 3.00 06/21/19 13:00 101 06/21/19 12:00 95 Nasal Cannula 2.00 06/21/19 12:00 97 22 116/57 (76) 100 Nasal Cannula 3.00 06/21/19 12:00 99.1 06/21/19 11:37 98.9 96 18 128/60 100 Room Air 06/21/19 11:22 98.0 106 14 126/65 100 Room Air 06/21/19 11:00 101 133/67 (89) 100 Nasal Cannula 3.00 06/21/19 08:44 110 06/21/19 08:00 95 Room Air 3.00 06/21/19 08:00 97.6 130 20 106/60 (75) 99 Nasal Cannula 3.00 06/21/19 04:00 98.8 109 16 102/60 (74) 95 Nasal Cannula 2.00 I & O 06/22/19 07:00 Intake Total 1140 ml Output Total 2025 ml Balance -885 ml Height & Weight Height: 5'11.00" Weight: 172lbs. 0.0oz. 78.534092os; 24.0 BMI Method:Stated General Appearance: WD/WN, Chronically ill, Mild Distress, Thin, Other (frail) HEENT: PERRL/EOMI, Normal ENT Inspection, Pharynx Normal, Moist Mucous Membranes Neck: Full Range of Motion, Normal Inspection, Non Tender Respiratory: Chest Non Tender, No Accessory Muscle Use, No Respiratory Distress, Decreased Breath Sounds Cardiovascular: Regular Rate, Rhythm, No Edema, No Gallop, No JVD, No Murmur, Normal Peripheral Pulses Capillary Refill: Less Than 3 Seconds Peripheral Pulses: 2+ Radial Pulses (R), 2+ Radial Pulses (L) Gastrointestinal: normal bowel sounds, non tender, soft Extremity: Normal Capillary Refill, Normal Inspection, Normal Range of Motion (except left leg), Non Tender, No Calf Tenderness, No Pedal Edema Neurologic/Psychiatric: Alert, Oriented x3, No Motor/Sensory Deficits, Normal Mood/Affect, Disoriented Skin: Normal Color, Warm/Dry Lymphatic: No Adenopathy Results Lab Laboratory Tests 06/20/19 05:05 06/21/19 05:14 Assessment/Plan Assessment/Plan Left femur fracture s/p mechanical fall -s/p surgical repair COPD/Allergic rhinitis -SVNs -Singulair, claritin Metabolic lactic acidosis -May need IVF bolus -monitor -Transfer to ICU for close monitoring Sinusitis -Start zosyn -Continue Flonase, Claritin, Singulair DM Neuropathy HTN hx of ALL Ischemic cardiomyopathy hx ELLE CORMIER DO Jun 22, 2019 04:03
[2019-06-22] MEDS ORDERED: risperiDONE 0.25 MG (RisperDAL) TAB PO ONE (04:30)
[2019-06-22 04:31] LABS: ALANINE AMINOTRANSFERASE 14 U/L (0-55); ALBUMIN 3.4 GM/DL (3.2-4.5); ALKALINE PHOSPHATASE 48 U/L (40-136); BILIRUBIN,TOTAL 1.3 MG/DL (0.1-1.0); BUN/CREATININE RATIO 18; CARBON DIOXIDE 24 MMOL/L (21-32); CHLORIDE 100 MMOL/L (98-107); CREATININE SERUM 1.06 MG/DL (0.60-1.30); GFR ESTIMATED > 60; GLUCOSE 236 MG/DL (70-105); MAGNESIUM 1.5 MG/DL (1.6-2.4); PHOSPHORUS 2.8 MG/DL (2.3-4.7); POTASSIUM 3.6 MMOL/L (3.6-5.0); SODIUM 136 MMOL/L (135-145); TOTAL PROTEIN 5.8 GM/DL (6.4-8.2)
[2019-06-22] MEDS ORDERED: risperiDONE 0.25 MG (RisperDAL) TAB ONE (04:45)
[2019-06-22] MEDS: KCL 20 MEQ TAB (K-DUR) PO SCH (05:00)
[2019-06-22] MEDS: MAGNESIUM 1 GM/100 ML IVPB 100 ML IV SCH ×3 (05:00→05:43)
[2019-06-22] MEDS: POTASSIUM CL 10MEQ/50ML IVPB 50 ML IV SCH ×5 (05:00→06:07)
[2019-06-22] MEDS: PIPERACILLIN/TAZO 4.5 GM/NS 100 ML IV SCH ×6 (05:00→20:39)
[2019-06-22] MEDS: inSUlin ASPART (NovoLOG) 1 UNIT/0.01 ML (CHARGE PER UNIT) SC SCH ×4 (05:01→20:38)
[2019-06-22 05:03] LABS: BASOPHILS % (AUTO) 0 % (0-10); EOSINOPHILS % (AUTO) 1 % (0-10); HEMATOCRIT 26 % (40-54); HEMOGLOBIN 9.2 G/DL (13.3-17.7); LYMPHOCYTES # (AUTO) 0.9 X 10^3 (1.0-4.0); LYMPHOCYTES % (AUTO) 12 % (12-44); MEAN CORPUSCULAR HEMOGLOBIN 32 PG (25-34); MEAN CORPUSCULAR HGB CONC 35 G/DL (32-36); MEAN CORPUSCULAR VOLUME 92 FL (80-99); MEAN PLATELET VOLUME 9.7 FL (7.4-10.4); MONOCYTES # (AUTO) 0.8 X 10^3 (0.0-1.0); MONOCYTES % (AUTO) 11 % (0-12); NEUTROPHILS # (AUTO) 5.5 X 10^3 (1.8-7.8); NEUTROPHILS % (AUTO) 76 % (42-75); PLATELET COUNT 102 10^3/uL (130-400); RED CELL DISTRIBUTION WIDTH 14.3 % (10.0-14.5); WHITE BLOOD COUNT 7.3 10^3/uL (4.3-11.0)
[2019-06-22 05:04] LABS: EOSINOPHILS # (AUTO) 0.1 10^3/uL (0.0-0.3)
[2019-06-22] MEDS: SENNA W/DOCUSATE (SENOKOT S) TABLET PO SCH ×2 (07:46→20:39)
[2019-06-22] MEDS: SACUBITRIL/VALSARTAN 24/26 MG (ENTRESTO) TABLET PO SCH ×2 (07:46→20:41)
[2019-06-22] MEDS: LORATADINE (CLARITIN) 10 MG TAB PO SCH (07:46)
[2019-06-22] MEDS: CARVEDILOL 3.125 MG (COREG) TABLET PO SCH ×2 (07:46→20:39)
[2019-06-22] MEDS: FUROSEMIDE 40 MG/4 ML INJ (LASIX) IVP SCH (07:46)
[2019-06-22] MEDS: FLUTICASONE NASAL SPRAY (FLONASE) 16 GM BTL NS SCH (07:47)
[2019-06-22] MEDS: RT-ALBUTEROL/IPRATROPIUM 3 ML (DUONEB) VIAL INH SCH ×3 (07:56→23:02)
--- NOTE | 2019-06-22 08:43 | Diagnostic Imaging Report ---
INDICATION: Fluid overload Portable chest 3:23 AM Right subclavian Port-A-Cath tip projects over the SVC. There are postop changes from CABG surgery. Heart size and pulmonary vascularity are normal. There is minimal left basilar atelectasis. Lungs otherwise clear. IMPRESSION: Minimal left basilar atelectasis. Dictated by: Dictated on workstation # [id number]
--- NOTE | 2019-06-22 09:30 | Progress Note - Ortho ---
Progress Note Subjective Date of Exam 06/22/19 Chief Complaint POD#3 long TFN left hip for two-part intertrochanteric fracture HPI/Events since last exam The patient is now in ICU. He was unable to participate in physical or occupational therapy yesterday. He is having some therapy today. He continues with hip pain although it is decreasing. Hemoglobin this morning is 9.2 after transfusion yesterday Review of Systems Reviewed and no additions or changes Allergies: Coded Allergies: No Known Drug Allergies (Verified , 09/19/08) Home Meds Active Scripts Albuterol Sulfate (Albuterol Sulfate) 2.5 Mg/3 Ml Vial.neb, 2.5 MG INH TID, #60 EA Prov:ADALBERTO ARENAS DO 10/19/18 L. Acidophilus/Bulgaricus (Floranex Granules Packet) 1 Each Gran.pack, 1 GM PO ACHS, #60 EA Prov:ADALBERTO ARENAS DO 10/19/18 Pantoprazole Sodium (Pantoprazole Sodium) 40 Mg Tablet.dr, 40 MG PO DAILY, #30 TAB Prov:ADALBERTO ARENAS DO 10/19/18 Fluticasone Propionate (Fluticasone Propionate) 16 Gm [place].susp, 2 SPRAY NS DAILY, #1 SPRAY Prov:ADALBERTO ARENAS DO 10/19/18 Montelukast Sodium (Montelukast Sodium) 10 Mg Tablet, 10 MG PO HS, #30 TAB Prov:ADALBERTO ARENAS DO 10/19/18 Loratadine (Loratadine) 10 Mg Tablet, 10 MG PO DAILY, #30 TAB Prov:ADALBERTO ARENAS DO 10/19/18 Reported Medications Dextrose (Glucose) 4 Gm Tab.chew, 4 GM PO UD PRN for BS<120, TAB 02/24/19 Insulin Glargine,Hum.rec.anlog (Lantus Solostar) 100 Unit/1 Ml Insuln.pen, 15-20 UNITS SC HS, EA 02/24/19 Atorvastatin Calcium (Lipitor) 10 Mg Tablet, 10 MG PO DAILY, TAB 10/17/18 Aspirin (Aspirin EC) 81 Mg Tablet.dr, 81 MG PO DAILY, TAB 10/17/18 Galantamine HBr (Galantamine HBr) 8 Mg Tablet, 4 MG PO BID, TAB TAKES 1/2 (8MG) TABLET 10/17/18 Sacubitril/Valsartan (Entresto 24 mg-26 mg Tablet) 1 Each Tablet, 1 TAB PO BID, TAB 10/17/18 Metformin HCl (Metformin HCl) 500 Mg Tablet, 500 MG PO DAILY, TAB 10/17/18 Fluticasone/Salmeterol (Advair 250-50 Diskus) 1 Each Blst.w.dev, 1 PUFF IH BID, INHALER 08/28/16 Sertraline HCl (Sertraline HCl) 100 Mg Tablet, 100 MG PO DAILY, TAB 08/28/16 Carvedilol (Carvedilol) 3.125 Mg Tablet, 3.125 MG PO BID, TAB 08/28/16 Dronabinol (Dronabinol) 2.5 Mg Capsule, 2.5 MG PO BID, CAP 08/28/16 Methylphenidate HCl (Ritalin) 5 Mg Tablet, 5 MG PO BID, TAB 07/22/15 Insulin Lispro (Humalog Kwikpen) 100 Unit/1 Ml Insuln.pen, 15-25 UNITS SQ AC, EA 07/22/15 Objective Exam Constitutional: [] HEENT: [] Neck: [] Cardiovascular: [] Respiratory: [] Gastrointestinal: [] Genitourinary: [] Skin: [] Back/Spine: [] Extremities: [Dressing is coming off. His incisions are healing well without redness or drainage. He has some increased bruising around the hip as well as some mild swelling. No effusion of the knee. He has good motion knee without pain. With motion and knee has some pain over the distal thigh in the musculature. No calf tenderness and negative Homans. He has good strength on dorsiflexion plantar flexion of foot and ankle as well as her toes. Normal sensation with good capillary refill. Good pulses.] Neurologic: [] Psychiatric: [] Hematologic/lymphatic/immunologic: [] Vital Signs Vital Signs Date Time Temp Pulse Resp B/P (MAP) Pulse Ox O2 Delivery O2 Flow Rate FiO2 06/22/19 07:56 95 Room Air 06/22/19 06:07 100 20 96/59 (71) 96 Room Air 06/22/19 04:42 98 12 113/65 (81) 94 Room Air 06/22/19 04:20 97 Nasal Cannula 2.00 06/22/19 04:00 98 12 113/65 (81) 94 Room Air 06/22/19 03:07 98.3 105 18 133/71 (91) 91 Room Air 06/22/19 02:13 98.3 98 18 108/74 (85) 100 Room Air 06/22/19 02:00 106 10 143/83 (103) 100 Room Air 06/22/19 01:29 98.3 102 14 111/102 (105) 98 Room Air 06/22/19 01:00 98 06/22/19 00:28 97 Nasal Cannula 2.00 06/21/19 23:52 98.3 98 18 105/56 (72) 100 Room Air 06/21/19 23:00 99 12 104/60 (75) Room Air 06/21/19 22:00 106 10 104/62 (76) Room Air 06/21/19 21:00 123 20 121/72 (88) Room Air 06/21/19 20:35 97 Nasal Cannula 2.00 06/21/19 20:30 98 Room Air 06/21/19 20:00 105 12 142/70 (94) Room Air 06/21/19 19:00 112 06/21/19 19:00 111 20 93/68 (76) Room Air 06/21/19 17:00 108 12 119/78 (92) Room Air 06/21/19 16:08 98.4 06/21/19 16:06 95 Nasal Cannula 2.00 06/21/19 16:00 105 9 147/62 (90) 100 Room Air 06/21/19 15:54 98 Nasal Cannula 1.50 06/21/19 15:46 98.4 99 46 145/69 Nasal Cannula 2.00 06/21/19 15:00 107 10 119/77 (91) 99 Nasal Cannula 3.00 06/21/19 14:08 98.9 107 13 129/109 99 Nasal Cannula 2.00 06/21/19 14:00 103 21 68/51 (57) 97 Nasal Cannula 3.00 06/21/19 13:58 99.1 105 16 132/78 99 Nasal Cannula 2.00 06/21/19 13:22 97.1 99 19 116/53 99 Nasal Cannula 2.00 06/21/19 13:00 100 51 121/69 (86) 99 Nasal Cannula 3.00 06/21/19 13:00 101 06/21/19 12:00 95 Nasal Cannula 2.00 06/21/19 12:00 97 22 116/57 (76) 100 Nasal Cannula 3.00 06/21/19 12:00 99.1 06/21/19 11:37 98.9 96 18 128/60 100 Room Air 06/21/19 11:22 98.0 106 14 126/65 100 Room Air 06/21/19 11:00 101 133/67 (89) 100 Nasal Cannula 3.00 I & O 06/22/19 07:00 Intake Total 1550 ml Output Total 2475 ml Balance -925 ml Lab Results Laboratory Tests 06/21/19 12:32: Glucometer 231H 06/21/19 14:54: Lactic Acid Level 1.36 06/21/19 15:51: Glucometer 247H 06/21/19 20:56: Glucometer 291H 06/22/19 04:03: White Blood Count 7.3, Red Blood Count 2.84L, Hemoglobin 9.2L, Hematocrit 26L, Mean Corpuscular Volume 92, Mean Corpuscular Hemoglobin 32, Mean Corpuscular Hemoglobin Concent 35, Red Cell Distribution Width 14.3, Platelet Count 102L, Mean Platelet Volume 9.7, Neutrophils (%) (Auto) 76H, Lymphocytes (%) (Auto) 12, Monocytes (%) (Auto) 11, Eosinophils (%) (Auto) 1, Basophils (%) (Auto) 0, August trophils # (Auto) 5.5, Lymphocytes # (Auto) 0.9L, Monocytes # (Auto) 0.8, Eosinophils # (Auto) 0.1, Basophils # (Auto) 0.0, Sodium Level 136, Potassium Level 3.6, Chloride Level 100, Carbon Dioxide Level 24, Anion Gap 12, Blood Urea Nitrogen 19H, Creatinine 1.06, Estimat Glomerular Filtration Rate > 60, BUN/Creatinine Ratio 18, Glucose Level 236H, Calcium Level 8.0L, Corrected Calcium 8.5, Phosphorus Level 2.8, Magnesium Level 1.5L, Total Bilirubin 1.3H, Aspartate Amino Transf (AST/SGOT) 27, Alanine Aminotransferase (ALT/SGPT) 14, Alkaline Phosphatase 48, Lactate Dehydrogenase 296H, Total Protein 5.8L, Albumin 3.4 06/22/19 04:57: Glucometer 256H Microbiology 06/21/19 Influenza Types A,B Antigen (ROSENDA) - Final, Complete Assessment and Plan Assessment Status post long TFN left hip Hemoglobin 9.2 after 2 units of packed red blood cell for acute blood loss anemia Problem List No additions or changes Plan Continue walker ambulation weightbearing as tolerated on the left. Dressing change as needed Final Diagonsis 3 days postop long TFN left hip for two-part intertrochanteric fracture Level of the visit: Level 3 Focused Exam Lactate Level 06/21/19 09:20: Lactic Acid Level 2.69*H 06/21/19 14:54: Lactic Acid Level 1.36 Clinical Quality Measures DVT/VTE Risk/Contraindication: Risk Factor Score Per Nursin RFS Level Per Nursing on Admit: 4+=Very High DAX YOUNG MD Jun 22, 2019 09:30
--- NOTE | 2019-06-22 09:34 | Progress Note ---
Subjective Date Seen by a Provider: Jun 22, 2019 Time Seen by a Provider: 09:00 Subjective/Events-last exam Pt had a live sitter one-on-one because of the fall risk. Had a lot of hallucinations last night. ICU psychosis will be managed with Risperdal of 0.5 Mg now and 1 Mg at night. No fever. Lungs are crackly and coarse at the bases now, that were not present before because of the pulmonary edema. Blood count looks much better, Hgb 9.7, Platelet count of 101. Pt dramatically improved. Lovenox decision will be made by Dr. Nettles. Dr. Foreman restarted Coreg and Entresto but holding due to hypotension Dr. Alvarado is managing the upper respiratory infection, placed on Zosyn empirically. Nebulizer treatments maintained. Using IS. Confused a bit and talking slowly but this happens every time he is in the hosp ital and ill. No BM yet Senna was given. Eating a lot better. Review of Systems General: Fatigue Musculoskeletal: leg pain Neurological: Confusion Focused Exam Lactate Level 06/21/19 09:20: Lactic Acid Level 2.69*H 06/21/19 14:54: Lactic Acid Level 1.36 Objective Exam Last Set of Vital Signs Vital Signs Date Time Temp Pulse Resp B/P (MAP) Pulse Ox O2 Delivery O2 Flow Rate FiO2 06/22/19 07:56 95 Room Air 06/22/19 06:07 100 20 96/59 (71) 06/22/19 04:20 2.00 06/22/19 03:07 98.3 Capillary Refill : Less Than 3 SecondsLess Than 3 Seconds I&O Intake and Output 06/22/19 00:00 Intake Total 1340 ml Output Total 2425 ml Balance -1085 ml Intake Oral 800 ml Other 540 ml Output Urine Total 2425 ml General: Alert, Oriented X3, Cooperative, No Acute Distress HEENT: Atraumatic, PERRLA Neck: Supple, No JVD, No Thyromegaly Lungs: Other (crackles base) Heart: Regular Rate, Normal S1, Normal S2, No Murmurs Abdomen: Normal Bowel Sounds, Soft, No Tenderness, No Hepatosplenomegaly, No Masses Psych/Mental Status: Other (confused, pleasnt) Results Lab Laboratory Tests 06/21/19 12:32: Glucometer 231H 06/21/19 14:54: Lactic Acid Level 1.36 06/21/19 15:51: Glucometer 247H 06/21/19 20:56: Glucometer 291H 06/22/19 04:03: White Blood Count 7.3, Red Blood Count 2.84L, Hemoglobin 9.2L, Hematocrit 26L, Mean Corpuscular Volume 92, Mean Corpuscular Hemoglobin 32, Mean Corpuscular Hemoglobin Concent 35, Red Cell Distribution Width 14.3, Platelet Count 102L, Mean Platelet Volume 9.7, Neutrophils (%) (Auto) 76H, Lymphocytes (%) (Auto) 12, Monocytes (%) (Auto) 11, Eosinophils (%) (Auto) 1, Basophils (%) (Auto) 0, August trophils # (Auto) 5.5, Lymphocytes # (Auto) 0.9L, Monocytes # (Auto) 0.8, Eosinophils # (Auto) 0.1, Basophils # (Auto) 0.0, Sodium Level 136, Potassium Level 3.6, Chloride Level 100, Carbon Dioxide Level 24, Anion Gap 12, Blood Urea Nitrogen 19H, Creatinine 1.06, Estimat Glomerular Filtration Rate > 60, BUN/Creatinine Ratio 18, Glucose Level 236H, Calcium Level 8.0L, Corrected Calcium 8.5, Phosphorus Level 2.8, Magnesium Level 1.5L, Total Bilirubin 1.3H, Aspartate Amino Transf (AST/SGOT) 27, Alanine Aminotransferase (ALT/SGPT) 14, Alkaline Phosphatase 48, Lactate Dehydrogenase 296H, Total Protein 5.8L, Albumin 3.4 06/22/19 04:57: Glucometer 256H Microbiology 06/21/19 Influenza Types A,B Antigen (ROSENDA) - Final, Complete Assessment/Plan Assessment/Plan Assess & Plan/Chief Complaint Assessment: Left femur fracture s/p fall after missed 1 step on stairs Wednesday at 1445 s/p uncomplicated repair POD # [address] Richards Acute sinusitis with bacterial bronchitis with left sided ATX on CXR COPD on Singulair and Claritin and ICS prn 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 diff history h/o ARF while at [facility] for ALL induction PUD Remission for acute lymphocytic leukemia for [address] Perez Ischemic cardiomyopathy with improvement in ejection fraction from 30 percent to 55 percent due to Entresto management Plan: Monitor labs and respiratory status in ICU DVT PPx Monitor for ACS and CHF Appreciate Dr Foreman and Dr Richards and Dr Nettles and Dr Alvarado PT/OT IRF tomorrow [facility] DC Lovenox held Delirium noted Diagnosis/Problems Diagnosis/Problems (1) Fracture of femur, intertrochanteric, left, closed Status: Acute Qualifiers: Qualified Codes: S72.145A - Nondisplaced intertrochanteric fracture of left femur, initial encounter for closed fracture (2) Fall Status: Acute Qualifiers: Qualified Codes: W19.XXXA - Unspecified fall, initial encounter (3) Ischemic cardiomyopathy Status: Chronic (4) Renal insufficiency Status: Chronic (5) Neuropathy Status: Chronic (6) Hx of CABG Status: Chronic (7) COPD (chronic obstructive pulmonary disease) (8) History of Clostridium difficile infection Status: Chronic (9) Hypertension Status: Chronic Qualifiers: Qualified Codes: I10 - Essential (primary) hypertension (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 (11) CAD (coronary artery disease) Status: Chronic Qualifiers: Qualified Codes: I25.10 - Atherosclerotic heart disease of [place] coronary artery without angina pectoris (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 Qualifiers: Qualified Codes: G57.02 - Lesion of sciatic nerve, left lower limb (13) Flash pulmonary edema (14) Sepsis Status: Acute Qualifiers: Qualified Codes: A41.9 - Sepsis, unspecified organism (15) Elevated lactic acid level Status: Acute (16) Transfusion of blood during current hospitalization Status: Acute (17) Postoperative anemia Status: Acute (18) Troponin level elevated Status: Acute (19) Elevated brain natriuretic peptide (BNP) level Status: Acute (20) Acute delirium Clinical Quality Measures DVT/VTE Risk/Contraindication: Risk Factor Score Per Nursin RFS Level Per Nursing on Admit: 4+=Very High ADALBERTO ARENAS DO Jun 22, 2019 09:34
--- NOTE | 2019-06-22 09:46 | Physical Therapy Daily Note ---
PT Daily Note-Current Subjective Patient is in bed and is pulling on his catheter stating he needed to pee. PT educated patient on catheter use. Pain Numeric Pain Scale: 8 Location: Left Location Body Site: Hip Pain Description: Acute Comment: FLACC Mental Status Patient Orientation: Confused Transfers Therapy Code Descriptions/Definitions Functional [place] Measure: 0=Not Assessed/NA 4=Minimal Assistance 1=Total Assistance 5=Supervision or Setup 2=Maximal Assistance 6=Modified [place] 3=Moderate Assistance 7=Complete [place] Therapy Quality Codes: 6 Independent with activity with or without an assistive device 5 Patient requires set up or clean up by helper. Patient completes activity by themselves 4 Supervision or touching assist (CGA). [place] provide cues , steadying assist 3 The helper provides less than half the effort to complete the activity 2 The helper provides more than half the effort to complete the activity 1 Dependent. The helper does all the effort to complete an activity 7 Patient refused to complete or attempt activity 9 The patient did not perform the activity before the current illness or injury 88 Not attempted due to Medical conditions or safety concerns Transfers (B, C, W/C) (FIM): 2 Scootin Supine to/from Sit: 2 Sit to/from Stand: 2 Bed to/from Chair: 2 patient unable to stand to FWW for transfer bed to recliner requiring PT assist with patient minimally assisting with this task. Weight Bearing Right Lower Extremity: Right Weight Bearing/Tolerated Left Lower Extremity: Left Weight Bearing/Tolerated Exercises Supine Ex: Ankle pumps, Heel Slides Supine Reps: 12 (AAROM) Seated Therapy Exercises: Ankle pumps, Long arc quads Seated Reps: 15 (2 sets AAROM) Assessment Patient having difficulty with following direction for transfers and exercise on this date. PT to increase activity as tolerated by patient. Patient continues to pull at catheter. RN notified. PT Short Term Goals Short Term Goals Time Frame: Jun 28, 2019 Transfers (B,C,W/C) (FIM): 4 Gait (FIM): 1 Gait Distance Comment: 20' Gait Level of Assist: 4 Gait Assistive Device: FWW PT Longterm Goals Distribution Agent Goals PT Distribution Agent Goals Time Frame: Jul 15, 2019 Transfers (B,C,W/C) (FIM): 6 Gait (FIM): 6 Gait distance (FIM): 3=150 ft Distance: 175' Gait Level of Assist: 6 Gait Assistive Device: FWW Stairs (FIM): 5 # of Steps: 12 Stairs Level Of Assist: 5 PT Plan Treatment/Plan Treatment Plan: Continue Plan of Care Treatment Plan: Bed Mobility, Education, Functional Activity Tessie, Functional Strength, Gait, Safety, Therapeutic Exercise, Transfers Treatment Duration: Jul 15, 2019 Frequency: 11 times per week Estimated Hrs Per Day: .25 hour per day Patient and/or Family Agrees t: Yes Time/GCodes Time In: 835 Time Out: 856 Total Billed Treatment Time: 23 Total Billed Treatment 1 visit EX 15 min FA 8 min LUIS CHAPPELL PT Jun 22, 2019 09:46
[2019-06-22] MEDS: HYDROcodone/APAP 5 MG/325 MG (LORTAB) TAB PO PRN ×2 (12:29→19:55)
[2019-06-22] MEDS: LACTATED RINGERS 1,000 ML IV SCH (12:30)
--- NOTE | 2019-06-22 13:01 | Cardiology Progress Note ---
Subjective Date Seen by Provider: Jun 22, 2019 Time Seen by Provider: 12:59 Subjective/Events-last exam Patient is laying down in bed, feeling slightly better. No new complaint Review of Systems General: No Chills, No Night Sweats; Fatigue, Malaise; No Appetite, No Other HEENT: No Head Aches, No Visual Changes, No Eye Pain, No Ear Pain, No Dysphasia, No Sinus Congestion, No Post Nasal Drip, No Sore Throat, No Other Pulmonary: Dyspnea, Cough; No Pleuritic Chest Pain, No Other Cardiovascular: No: Chest Pain, Palpitations, Orthopnea, Paroxysmal Noc. Dyspnea, Edema, Lt Headedness, Other Focused Exam Lactate Level 06/21/19 09:20: Lactic Acid Level 2.69*H 06/21/19 14:54: Lactic Acid Level 1.36 Objective-Cardiology Exam Last Set of Vital Signs Vital Signs 06/22/19 06/22/19 06/22/19 04:20 12:00 12:29 Temp 98.3 Pulse Ox 92 O2 Flow Rate 2.00 Capillary Refill : Less Than 3 SecondsLess Than 3 Seconds I&O Intake and Output 06/22/19 00:00 Intake Total 1340 ml Output Total 2425 ml Balance -1085 ml Intake Oral 800 ml Other 540 ml Output Urine Total 2425 ml General: Alert, Oriented X3, Cooperative, Moderate Distress HEENT: Atraumatic, PERRLA Neck: Supple, No JVD, No Thyromegaly Lungs: Normal Air Movement, Other (rhonchi) Heart: Regular Rate, Normal S1, Normal S2, No Murmurs Abdomen: Normal Bowel Sounds, Soft, No Tenderness, No Hepatosplenomegaly, No Masses Extremities: No Clubbing, No Cyanosis, No Edema, Normal Pulses, No Tenderness/Swelling Skin: No Rashes, No Breakdown, No Significant Lesion Neuro: Normal Speech, Strength at 5/5 X4 Ext Psych/Mental Status: Mental Status NL, Mood NL Results Lab Laboratory Tests 06/22/19 04:03 A/P-Cardiology Admission Diagnosis Hip fracture Coronary artery disease Carotid stenosis ALL Assessment/Plan Left femur fracture, post surgical repair done on June 19, 2019. Continue to monitor Anemia, mild thrombocytopenia, save blood transfusion, managed by Dr. Perez Status post respiratory failure, better, responded to diuretics. Congestive heart failure, acute on chronic left ventricular systolic dysfunction, secondary to chemotherapy and coronary artery disease, ischemic and nonischemic cardiomyopathy, echocardiogram showed ejection fraction 25-30 percent, restarted on Coreg and Entresto. Monitor tolerance and response closely History of orthostatic dizziness and hypotension, near-syncope, no current syncopal episodes or dizziness reported. Coronary artery disease status post CABG x3 in 2004, cardiac catheterization in April 2014 which showed patent bypass grafts with small vessel disease distally mainly in the LAD system that was receiving retrograde collateral, treated conservatively. Cardiac catheterization was done on November 07, 2014 showing small vessel disease, patent MAHONEY to LAD, vein graft to the circumflex artery and vein graft to the right coronary artery, repeat cardiac catheterization was done in August 2016 showing patent MAHONEY to LAD, vein graft to the obtuse marginal branch with sluggish flow in the [place] circumflex artery, patent vein graft to the right coronary artery, the proximal [place] coronary arteries appear slightly worse with occlusion of the left main, the LAD and diagonal artery are getting collaterals from the right system. He has been asymptomatic. Continue to monitor. Mild bilateral carotid stenosis, ultrasound was done in March 2018. Continue to monitor History of esophageal spasm, EGD by Dr. Manzanares , reporting improvement. 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 Nettles, continue to monitor. 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 Nettles. Hypertension, controlled on current medication, continue to monitor Hyperlipidemia, continue to monitor lipids. Managed by Dr. Watts. Diabetes mellitus, managed and followed by primary care physician. History of atrial flutter status post ablation in 2004, currently in sinus rhythm. Continue to monitor Clinical Quality Measures DVT/VTE Risk/Contraindication: Risk Factor Score Per Nursin RFS Level Per Nursing on Admit: 4+=Very High CHRISTOPHER TANG MD Jun 22, 2019 13:01
--- NOTE | 2019-06-22 14:01 | Physical Therapy Daily Note ---
PT Daily Note-Current Subjective Patient continues to be very confused. RN present during treatment session. Mental Status Patient Orientation: Confused Attachments: IV Transfers Therapy Code Descriptions/Definitions Functional [place] Measure: 0=Not Assessed/NA 4=Minimal Assistance 1=Total Assistance 5=Supervision or Setup 2=Maximal Assistance 6=Modified [place] 3=Moderate Assistance 7=Complete [place] Therapy Quality Codes: 6 Independent with activity with or without an assistive device 5 Patient requires set up or clean up by helper. Patient completes activity by themselves 4 Supervision or touching assist (CGA). [place] provide cues , steadying assist 3 The helper provides less than half the effort to complete the activity 2 The helper provides more than half the effort to complete the activity 1 Dependent. The helper does all the effort to complete an activity 7 Patient refused to complete or attempt activity 9 The patient did not perform the activity before the current illness or injury 88 Not attempted due to Medical conditions or safety concerns Transfers (B, C, W/C) (FIM): 2 Scootin Rollin Supine to/from Sit: 2 Sit to/from Stand: 2 Bed to/from Chair: 2 patient was able to take 4 steps with max assist x 2 and FWW use recliner to bed Weight Bearing Right Lower Extremity: Right Weight Bearing/Tolerated Left Lower Extremity: Left Weight Bearing/Tolerated Exercises Supine Ex: Ankle pumps, Heel Slides, Straight leg raise Supine Reps: 15 (AAROM) Seated Therapy Exercises: Long arc quads Seated Reps: 15 Assessment Patient in bed with rails up, bed alarm activated and sitter present for safety. PT to increase activity as tolerated by patient. He is currently unable to tolerate extensive therapies. PT to continue to address goals. PT Short Term Goals Short Term Goals Time Frame: Jun 28, 2019 Transfers (B,C,W/C) (FIM): 4 Gait (FIM): 1 Gait Distance Comment: 20' Gait Level of Assist: 4 Gait Assistive Device: FWW PT Lead Scientist Goals Lead Scientist Goals PT Lead Scientist Goals Time Frame: Jul 15, 2019 Transfers (B,C,W/C) (FIM): 6 Gait (FIM): 6 Gait distance (FIM): 3=150 ft Distance: 175' Gait Level of Assist: 6 Gait Assistive Device: FWW Stairs (FIM): 5 # of Steps: 12 Stairs Level Of Assist: 5 PT Plan Treatment/Plan Treatment Plan: Continue Plan of Care Treatment Plan: Bed Mobility, Education, Functional Activity Tessie, Functional Strength, Gait, Safety, Therapeutic Exercise, Transfers Treatment Duration: Jul 15, 2019 Frequency: 11 times per week Estimated Hrs Per Day: .25 hour per day Patient and/or Family Agrees t: Yes Time/GCodes Time In: 1235 Time Out: 1358 Total Billed Treatment Time: 23 Total Billed Treatment 1 visit EX 13 min FA 10 min LUIS CHAPPELL PT Jun 22, 2019 14:01
[2019-06-22] MEDS: ALPRAZolam 0.25 MG (XANAX) TAB PO PRN (15:32)
--- NOTE | 2019-06-22 16:21 | Occupational Ther Daily Note ---
OT Current Status-Daily Note Subjective No pain reported. Appearance Pt. in general good spirits and alert when therapy entered room. Nursing reports that pt. had just got back to bed via PT. Mental Status/Objective Patient Orientation: Person Therapy Code Descriptions/Definitions Functional [place] Measure: 0=Not Assessed/NA 4=Minimal Assistance 1=Total Assistance 5=Supervision or Setup 2=Maximal Assistance 6=Modified [place] 3=Moderate Assistance 7=Complete [place] Attachments: IV, Oxygen ADL-Treatment Grooming (FIM): 5 (SBA to brush hair and wash face.) Pt. had just returned to bed when therapist entered room. Pt. verbalized warm greeting to this therapist. Agreed to wash face and brush hair. Completed 4 bilateral UE exercises x 15 reps each in all planes to increase overall endurance. Pt. encouraged to not get out of bed on own without notifying nurse. Pt. verbalizes understanding and bed alarm in place. As OT is walking out of room, pt. begins to take off blankets to get up. Pt. reminded to call someone. Pt. smiles and verbalizes understanding. OT offers to assist pt. back out of bed. Pt. declines and reports that he is comfortable. All needs met. Nursing outside of room. Education OT Patient Education: Correct positioning, Exercise program, Modified ADL techniques, Progress toward Goal/Update tx plan, Purpose of tx/functional activities, Reviewed precautions, Rehab process, Transfer techniques Teaching Recipient: Patient Teaching Methods: Demonstration, Discussion Response to Teaching: Verbalize Understanding, Return Demonstration OT Short Term Goals Short Term Goals Time Frame: Jun 28, 2019 Bathing(FIM): 4 Transfers (B,C,W/C) (FIM): 4 1=Demonstrate adherence to instructed precautions during ADL tasks. 2=Patient will verbalize/demonstrate understanding of assistive devices/modifications for ADL. 3=Patient will improve strength/tolerance for activity to enable patient to perform ADL's. OT Front Of House Manager Goals [facility] Goals Time Frame: Jul 12, 2019 Eating (FIM): 6 Grooming(FIM): 6 Bathing(FIM): 5 Upper Body Dressing(FIM): 5 Lower Body Dressing(FIM): 5 Toileting(FIM): 5 Transfers (B,C,W/C) (FIM): 5 Toilet/Commode Transfer(FIM): 5 Additional Goals: 1-Demonstrate ADL Tasks, 2-Verbalize Understanding, 3-ImproveStrength/Tessie 1=Demonstrate adherence to instructed precautions during ADL tasks. 2=Patient will verbalize/demonstrate understanding of assistive devices/modifications for ADL. 3=Patient will improve strength/tolerance for activity to enable patient to perform ADL's. OT Education/Plan Problem List/Assessment Assessment: Decreased Activ Tolerance, Decreased UE Strength, Impaired I ADL's, Impaired Self-Care Skills Discharge Recommendations Plan/Recommendations: Continue POC Treatment Plan/Plan of Care Treatment,Training & Education: Yes Patient would benefit from OT for education, treatment and training to promote independence in ADL's, mobility, safety and/or upper extremity function for ADL's. Plan of Care: ADL Retraining, Caregiver Training, Functional Mobility, Group Exercise/Act as Ind, UE Funct Exercise/Act Treatment Duration: Jul 12, 2019 Frequency: 5 times per week Estimated Hrs Per Day: .25 hour per day Agreement: Yes Rehab Potential: Fair Time/GCodes Start Time: 13:40 Stop Time: 13:55 Total Time Billed (hr/min): 15 Billed Treatment Time 1, EX SO MALONE OT Jun 22, 2019 16:21
--- NOTE | 2019-06-22 17:00 | NUR ---
Dr Auguste here to see pt. request to continue hold on Lovenox at this time. Also is concerned with pt's confusion.
--- NOTE | 2019-06-22 17:51 | Progress Note ---
Standard Progress Note Progress Notes/Assess & Plan Date Seen by a Provider: Jun 22, 2019 Time Seen by a Provider: 17:46 Progress/Assessment & Plan 78 year old male admitted with history of fall and left intertrochanteric fracture, status post surgical fixation on 06/19/2019. Postoperatively he had drop in hemoglobin along with shortness of breath. He was moved to ICU and received 2 units of PRBC transfusion. Hemoglobin 9.2 today. Breathing better. Having significant delirium and not oriented to place or person. No fevers or chills. Probably related to medications. Currently on pain medications, benzodiazepines, Risperdal, melatonin etc. which could worsen his condition. Gradually wean and titrate dose. Platelets improved to 102,000. Continue to hold Lovenox and use SCDs for DVT prophylaxis. Will follow patient with you. Focused Exam Lactate Level 06/21/19 09:20: Lactic Acid Level 2.69*H 06/21/19 14:54: Lactic Acid Level 1.36 JORGE CARDENAS Jun 22, 2019 17:51
[2019-06-22] MEDS: MONTELUKAST 10 MG (SINGULAIR) TAB PO SCH (20:39)
[2019-06-22] MEDS ORDERED: [UNRECOGNIZED DRUG - MIXTURE] PO SCH (21:00)
[2019-06-22] MEDS ORDERED: risperiDONE 1 MG (RisperDAL) TAB PO SCH (21:00)
[2019-06-22] MEDS ORDERED: NON-FORMULARY MEDICATION 1 EA EA (Insulin Glargine,Hum.rec.anlog (Lantus Solostar) 20 UNIT SC SCH (21:00)
[2019-06-22] MEDS ORDERED: NON-FORMULARY MEDICATION 1 EA EA (Fluticasone/Salmeterol (Advair 250-50 Diskus) 1 PUFF) IH SCH (21:00)
[2019-06-22] MEDS ORDERED: RT-ADVAIR HFA 115/21 MCG PER PUFF IH ONE (22:50)
[2019-06-23] VITALS (8 sets, daily range): BP systolic 91–150; BP diastolic 49–75
[2019-06-23 03:29] LABS: BASOPHILS % (AUTO) 0 % (0-10); EOSINOPHILS # (AUTO) 0.3 10^3/uL (0.0-0.3); EOSINOPHILS % (AUTO) 6 % (0-10); HEMATOCRIT 25 % (40-54); HEMOGLOBIN 8.5 G/DL (13.3-17.7); LYMPHOCYTES # (AUTO) 1.2 X 10^3 (1.0-4.0); LYMPHOCYTES % (AUTO) 24 % (12-44); MEAN CORPUSCULAR HEMOGLOBIN 31 PG (25-34); MEAN CORPUSCULAR HGB CONC 34 G/DL (32-36); MEAN CORPUSCULAR VOLUME 93 FL (80-99); MEAN PLATELET VOLUME 8.9 FL (7.4-10.4); MONOCYTES # (AUTO) 0.8 X 10^3 (0.0-1.0); MONOCYTES % (AUTO) 15 % (0-12); NEUTROPHILS # (AUTO) 2.8 X 10^3 (1.8-7.8); NEUTROPHILS % (AUTO) 55 % (42-75); PLATELET COUNT 113 10^3/uL (130-400); WHITE BLOOD COUNT 5.1 10^3/uL (4.3-11.0)
[2019-06-23 03:48] LABS: BUN/CREATININE RATIO 22; CALCIUM 8.1 MG/DL (8.5-10.1); CARBON DIOXIDE 25 MMOL/L (21-32); CHLORIDE 103 MMOL/L (98-107); CREATININE SERUM 1.02 MG/DL (0.60-1.30); GFR ESTIMATED > 60; GLUCOSE 146 MG/DL (70-105); MAGNESIUM 1.9 MG/DL (1.6-2.4); PHOSPHORUS 3.4 MG/DL (2.3-4.7); POTASSIUM 3.5 MMOL/L (3.6-5.0); SODIUM 139 MMOL/L (135-145)
[2019-06-23] MEDS: PIPERACILLIN/TAZO 4.5 GM/NS 100 ML IV SCH ×2 (04:20)
[2019-06-23] MEDS: POTASSIUM CL 10MEQ/50ML IVPB 50 ML IV SCH ×3 (04:20→05:17)
[2019-06-23] MEDS: MAGNESIUM 1 GM/100 ML IVPB 100 ML IV SCH (04:27)
[2019-06-23] MEDS: KCL 20 MEQ TAB (K-DUR) PO SCH (04:27)
[2019-06-23] MEDS: inSUlin ASPART (NovoLOG) 1 UNIT/0.01 ML (CHARGE PER UNIT) SC SCH (04:28)
[2019-06-23] MEDS ORDERED: LACTOBACILLUS Acidoph/Bulgar 1 GM (LACTINEX) PACKET PO SCH (06:00)
--- NOTE | 2019-06-23 06:28 | Pulmonary Progress Note ---
Subjective Time Seen by a Provider: 06:27 Subjective/Events-last exam Pt was confused and having hallucinations last night. Sepsis Event Evaluation Height, Weight, BMI Height: 5'11.00" Weight: 172lbs. 0.0oz. [id number]; 24.0 BMI Method:Stated Focused Exam Lactate Level 06/21/19 09:20: Lactic Acid Level 2.69*H 06/21/19 14:54: Lactic Acid Level 1.36 Exam Exam Vital Signs Date Time Temp Pulse Resp B/P (MAP) Pulse Ox O2 Delivery O2 Flow Rate FiO2 06/23/19 06:00 89 18 150/75 (100) 100 Room Air 06/23/19 05:00 87 19 135/67 (89) 100 Room Air 06/23/19 04:00 88 18 133/67 (89) 96 Room Air 06/23/19 03:10 99 Room Air 06/23/19 03:05 98.6 92 19 131/73 (92) 100 Room Air 06/23/19 03:00 95 19 131/73 (92) 95 Room Air 06/23/19 02:00 90 16 93/49 (64) 99 Room Air 06/23/19 01:00 97 18 109/60 (76) 94 Room Air 06/23/19 00:59 99 06/23/19 00:00 99.0 86 18 91/49 (63) 95 Room Air 06/23/19 00:00 95 Room Air 06/22/19 23:02 96 Room Air 06/22/19 23:00 96 22 100/47 (64) 92 Room Air 06/22/19 22:00 101 16 111/68 (82) 95 Room Air 06/22/19 21:00 105 20 100/54 (69) 100 Room Air 06/22/19 20:00 94 Room Air 06/22/19 20:00 102 16 100/54 (69) 92 Room Air 06/22/19 19:48 98.7 106 18 115/66 (82) 06/22/19 19:40 99.4 107 12 Room Air 06/22/19 19:00 102 22 115/71 (86) 96 Room Air 06/22/19 19:00 108 06/22/19 18:09 94 16 106/40 (62) 92 Room Air 06/22/19 17:00 96 21 104/52 (69) 98 Room Air 06/22/19 16:39 98.9 96 16 114/47 (69) 99 06/22/19 16:13 90 12 114/47 (69) 100 Room Air 06/22/19 16:00 98 Room Air 06/22/19 15:52 99 Room Air 06/22/19 15:08 86 20 99 Room Air 06/22/19 14:00 87 25 99/41 (60) 99 Room Air 06/22/19 13:16 94 06/22/19 13:00 89 31 102/47 (65) 99 Room Air 06/22/19 12:29 98.3 06/22/19 12:00 100 26 98/47 (64) Room Air 06/22/19 12:00 98.3 06/22/19 12:00 92 Room Air 06/22/19 11:00 97 19 111/67 (82) 97 Room Air 06/22/19 10:00 80 12 82/44 (57) 94 Room Air 06/22/19 09:00 106 116/68 (84) 95 Room Air 06/22/19 08:00 89 10 100/56 (71) 100 Room Air 06/22/19 08:00 92 Room Air 06/22/19 07:56 95 Room Air 06/22/19 07:00 97 21 108/57 (74) 95 Room Air 06/22/19 07:00 99.6 98 19 108/64 (79) 91 Room Air 06/22/19 07:00 101 I & O 06/23/19 07:00 Intake Total 2185 ml Output Total 2280 ml Balance -95 ml Height & Weight Height: 5'11.00" Weight: 172lbs. 0.0oz. [id number]; 24.0 BMI Method:Stated General Appearance: No Apparent Distress, WD/WN, Chronically ill, Thin, Other (frail) HEENT: PERRL/EOMI, Normal ENT Inspection, Pharynx Normal, Moist Mucous Membranes Neck: Full Range of Motion, Normal Inspection, Non Tender Respiratory: Chest Non Tender, No Accessory Muscle Use, No Respiratory Distress , Decreased Breath Sounds Cardiovascular: Regular Rate, Rhythm, No Edema, No Gallop, No JVD, No Murmur, Normal Peripheral Pulses Capillary Refill: Less Than 3 Seconds Peripheral Pulses: 2+ Radial Pulses (R), 2+ Radial Pulses (L) Gastrointestinal: normal bowel sounds, non tender, soft Extremity: Normal Capillary Refill, Normal Inspection, Normal Range of Motion (except left leg), Non Tender, No Calf Tenderness, No Pedal Edema Neurologic/Psychiatric: Alert, Oriented x3, No Motor/Sensory Deficits, Normal Mood/Affect, Disoriented Skin: Normal Color, Warm/Dry Lymphatic: No Adenopathy Results Lab Laboratory Tests 06/22/19 04:03 06/23/19 03:20 Assessment/Plan Assessment/Plan Left femur fracture s/p mechanical fall -s/p surgical repair COPD/Allergic rhinitis -SVNs -Singulair, claritin Mild ICU psychosis -RN states pt was still getting confused last night and was wanting to go home. -Increase Risperdal to 1 mg QHS Metabolic lactic acidosis- improved -monitor Sinusitis - zosyn -Continue Flonase, Claritin, Singulair Hypokalemia -replace DM -Monitor Neuropathy HTN hx of ALL Ischemic cardiomyopathy hx To 4th floor when ok with Dr. Watts. ELLE CORMIER DO Jun 23, 2019 06:28
[2019-06-23] MEDS ORDERED: RT-ADVAIR HFA 115/21 MCG PER PUFF IH SCH (08:00)
--- NOTE | 2019-06-23 08:04 | Diagnostic Imaging Report ---
EXAM: CHEST 1 VIEW, AP/PA ONLY INDICATION: Fluid overload. COMPARISON: Chest radiograph 06/22/2019. FINDINGS: Normal heart size and central pulmonary vascularity. Sternotomy. Right subclavian tunneled port CVC tip low SVC. Mild prominence of the interstitium appears chronic in a similar to prior exam. No dense consolidation. No pleural effusion or pneumothorax. No acute osseous findings. IMPRESSION: No acute cardiopulmonary findings. Chronic findings as above. Dictated by: Dictated on workstation # [id number]
--- NOTE | 2019-06-23 08:25 | Discharge Summary ---
Diagnosis/Chief Complaint Date of Admission Jun 18, 2019 at 16:50 Date of Discharge Discharge Date: Jun 23, 2019 Discharge Diagnosis Left hip fracture Delirium Sepsis Pulmonary edema Volume overload CHF systolic type Elevated troponin DM Discharge Summary Discharge Physical Examination Allergies: Coded Allergies: No Known Drug Allergies (Verified , 09/19/08) Vitals & I&Os Vital Signs Date Time Temp Pulse Resp B/P (MAP) Pulse Ox O2 Delivery O2 Flow Rate FiO2 06/23/19 09:05 06/23/19 08:07 99 Room Air 06/23/19 07:59 98.6 06/23/19 06:00 89 18 06/22/19 04:20 2.00 General Appearance: Alert, Oriented X3, Cooperative Respiratory: Other (crackles bases) Neuro: Strength at 5/5 X4 Ext Psych/Mental Status: Mood NL, Other (confused) Hospital Course Was the Problem List Reviewed?: Yes This is a 78[facility]WM clinic pt of [facility] with sever comorbidities who had an uncomplicated left hip fracture repair by Dr. Richards on Wednesday after sustaining a fall at his daughter's house after missing a step on the stairs an subsequently was repaired but had some flash pulmonary edema requiring transfer to the ICU and lactic acid elevation with acute sinusitis requiring Zosyn antibiotics empirically along with IV Lasix with close monitoring and severe delirium requiring a live sitter since he was such a fall risk and received two units of blood with good improvement in Hgb of 7.5 and decreased platelet counts so Dr. Alvarado, Dr Nettles, Dr. Foreman and Dr. Richards agreed with plan to transfer to ICU and he was improving significantly so and delirium was improved to the point to where he was able to DC to inpatient rehab and continue his intensive therapies which may require 15/7 intensity because of the delirium but will try our best to initiate. Weight bearing is tolerated per Dr. Richards and we will monitor bowel function, and bladder function and monitor labs in the meantime. 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 Labs (last 24 hrs) Laboratory Tests 06/18/19 15:57: White Blood Count 6.7, Red Blood Count 3.75L, Hemoglobin 12.1L, Hematocrit 35L, Mean Corpuscular Volume 92, Mean Corpuscular Hemoglobin 32, Mean Corpuscular Hemoglobin Concent 35, Red Cell Distribution Width 13.3, Platelet Count 155, Mean Platelet Volume 9.2, Neutrophils (%) (Auto) 55, Lymphocytes (%) (Auto) 29, Monocytes (%) (Auto) 12, Eosinophils (%) (Auto) 4, Basophils (%) (Auto) 0, Neutrophils # (Auto) 3.7, Lymphocytes # (Auto) 2.0, Monocytes # (Auto) 0.8, Eosinophils # (Auto) 0.2, Basophils # (Auto) 0.0, Prothrombin Time 13.4, INR Comment 1.0, Activated Partial Thromboplast Time 28, Sodium Level 140, Potassium Level 4.8, Chloride Level 105, Carbon Dioxide Level 22, Anion Gap 13, Blood Urea Nitrogen 20H, Creatinine 1.10, Estimat Glomerular Filtration Rate > 60, BUN/Creatinine Ratio 18, Glucose Level 175H, Calcium Level 9.4, Corrected Calcium 9.3, Total Bilirubin 0.5, Aspartate Amino Transf (AST/SGOT) 17, Alanine Aminotransferase (ALT/SGPT) 13, Alkaline Phosphatase 83, Troponin I < 0.028, Total Protein 7.1, Albumin 4.1 06/18/19 16:58: Urine Color YELLOW, Urine Clarity CLEAR, Urine pH 6, Urine Specific [place] 1.015L, Urine Protein 1+H, Urine Glucose (UA) NEGATIVE, Urine Ketones NEGATIVE, Urine Nitrite NEGATIVE, Urine Bilirubin NEGATIVE, Urine Urobilinogen NORMAL, Urine Leukocyte Esterase NEGATIVE, Urine RBC (Auto) NEGATIVE, Urine RBC RARE, Urine WBC NONE, Urine Squamous Epithelial Cells 0-2, Urine Crystals NONE, Urine Bacteria NEGATIVE, Urine Casts NONE, Urine Mucus NEGATIVE, Urine Culture Indicated NO 06/18/19 22:04: Glucometer 214H 06/19/19 05:45: White Blood Count 8.3, Red Blood Count 3.51L, Hemoglobin 11.2L, Hematocrit 32L, Mean Corpuscular Volume 92, Mean Corpuscular Hemoglobin 32, Mean Corpuscular Hemoglobin Concent 35, Red Cell Distribution Width 13.3, Platelet Count 144, Mean Platelet Volume 9.0, Neutrophils (%) (Auto) 68, Lymphocytes (%) (Auto) 17, Monocytes (%) (Auto) 12, Eosinophils (%) (Auto) 2, Basophils (%) (Auto) 0, Neutrophils # (Auto) 5.7, Lymphocytes # (Auto) 1.4, Monocytes # (Auto) 1.0, Eosinophils # (Auto) 0.2, Basophils # (Auto) 0.0, Sodium Level 138, Potassium Level 4.2, Chloride Level 105, Carbon Dioxide Level 24, Anion Gap 9, Blood Urea Nitrogen 16, Creatinine 1.03, Estimat Glomerular Filtration Rate > 60, BUN/Creatinine Ratio 16, Glucose Level 245H, Calcium Level 8.5, Corrected Calcium 8.7, Total Bilirubin 0.7, Aspartate Amino Transf (AST/SGOT) 19, Alanine Aminotransferase (ALT/SGPT) 12, Alkaline Phosphatase 79, Total Protein 6.3L, Alb umin 3.7 06/19/19 11:04: Glucometer 202H 06/19/19 12:13: Glucometer 218H 06/19/19 15:54: Glucometer 220H 06/19/19 19:54: Glucometer 187H 06/20/19 05:05: White Blood Count 8.9, Red Blood Count 2.87L, Hemoglobin 9.3L, Hematocrit 27L, Mean Corpuscular Volume 94, Mean Corpuscular Hemoglobin 32, Mean Corpuscular Hemoglobin Concent 34, Red Cell Distribution Width 13.4, Platelet Count 126L, Mean Platelet Volume 9.3, Neutrophils (%) (Auto) 71, Lymphocytes (%) (Auto) 14, Monocytes (%) (Auto) 10, Eosinophils (%) (Auto) 4, Basophils (%) (Auto) 0, Ne utrophils # (Auto) 6.4, Lymphocytes # (Auto) 1.3, Monocytes # (Auto) 0.9, Eosinophils # (Auto) 0.4H, Basophils # (Auto) 0.0, Sodium Level 135, Potassium Level 4.4, Chloride Level 102, Carbon Dioxide Level 21, Anion Gap 12, Blood Urea Nitrogen 14, Creatinine 1.24, Estimat Glomerular Filtration Rate 56, BUN/Creatinine Ratio 11, Glucose Level 269H, Calcium Level 8.1L, Corrected Calcium 8.5, Total Bilirubin 0.6, Aspartate Amino Transf (AST/SGOT) 15, Alanine Aminotransferase (ALT/SGPT) 9, Alkaline Phosphatase 50, Total Protein 5.9L, Albumin 3.5 06/20/19 11:05: Glucometer 301H 06/20/19 15:27: Glucometer 237H 06/20/19 19:46: Glucometer 222H 06/21/19 05:14: White Blood Count 6.3, Red Blood Count 2.34L, Hemoglobin 7.5L, Hematocrit 22L, Mean Corpuscular Volume 96, Mean Corpuscular Hemoglobin 32, Mean Corpuscular Hemoglobin Concent 34, Red Cell Distribution Width 13.5, Platelet Count 91L, Mean Platelet Volume 8.7, Neutrophils (%) (Auto) 69, Lymphocytes (%) (Auto) 17, Monocytes (%) (Auto) 11, Eosinophils (%) (Auto) 3, Basophils (%) (Auto) 0, Neutrophils # (Auto) 4.3, Lymphocytes # (Auto) 1.1, Monocytes # (Auto) 0.7, Eosinophils # (Auto) 0.2, Basophils # (Auto) 0.0, Sodium Level 138, Potassium Level 4.0, Chloride Level 104, Carbon Dioxide Level 23, Anion Gap 11, Blood Urea Nitrogen 15, Creatinine 1.03, Estimat Glomerular Filtration Rate > 60, BU N/Creatinine Ratio 15, Glucose Level 194H, Calcium Level 8.0L, Corrected Calcium 8.7, Total Bilirubin 0.6, Aspartate Amino Transf (AST/SGOT) 21, Alanine Aminotransferase (ALT/SGPT) 9, Alkaline Phosphatase 46, Total Protein 5.5L, Albumin 3.1L 06/21/19 05:39: Glucometer 205H 06/21/19 08:21: Glucometer 358H 06/21/19 09:20: Lactic Acid Level 2.69*H, Phosphorus Level 2.8, Magnesium Level 1.3L, Troponin I 0.955*H, B-Type Natriuretic Peptide 1011.5H 06/21/19 12:32: Glucometer 231H 06/21/19 14:54: Lactic Acid Level 1.36 06/21/19 15:51: Glucometer 247H 06/21/19 20:56: Glucometer 291H 06/22/19 04:03: White Blood Count 7.3, Red Blood Count 2.84L, Hemoglobin 9.2L, Hematocrit 26L, Mean Corpuscular Volume 92, Mean Corpuscular Hemoglobin 32, Mean Corpuscular Hemoglobin Concent 35, Red Cell Distribution Width 14.3, Platelet Count 102L, Mean Platelet Volume 9.7, Neutrophils (%) (Auto) 76H, Lymphocytes (%) (Auto) 12, Monocytes (%) (Auto) 11, Eosinophils (%) (Auto) 1, Basophils (%) (Auto) 0, Neutrophils # (Auto) 5.5, Lymphocytes # (Auto) 0.9L, Monocytes # (Auto) 0.8, Eosinophils # (Auto) 0.1, Basophils # (Auto) 0.0, Sodium Level 136, Potassium Level 3.6, Chloride Level 100, Carbon Dioxide Level 24, Anion Gap 12, Blood Urea Nitrogen 19H, Creatinine 1.06, Estimat Glomerular Filtration Rate > 60, BUN/Creatinine Ratio 18, Glucose Level 236H, Calcium Level 8.0L, Corrected Calcium 8.5, Phosphorus Level 2.8, Magnesium Level 1.5L, Total Bilirubin 1.3H, Aspartate Amino Transf (AST/SGOT) 27, Alanine Aminotransferase (ALT/SGPT) 14, Alkaline Phosphatase 48, Lactate Dehydrogenase 296H, Total Protein 5.8L, Albumin 3.4 06/22/19 04:57: Glucometer 256H 06/22/19 11:10: Glucometer 349H 06/22/19 14:15: Lab Scanned Report Transfusion Reaction Form 06/22/19 15:23: Glucometer 202H 06/22/19 20:37: Glucometer 155H 06/23/19 03:20: White Blood Count 5.1, Red Blood Count 2.71L, Hemoglobin 8.5L, Hematocrit 25L, Mean Corpuscular Volume 93, Mean Corpuscular Hemoglobin 31, Mean Corpuscular Hemoglobin Concent 34, Red Cell Distribution Width 14.0, Platelet Count 113L, Mean Platelet Volume 8.9, Neutrophils (%) (Auto) 55, Lymphocytes (%) (Auto) 24, Monocytes (%) (Auto) 15H, Eosinophils (%) (Auto) 6, Basophils (%) (Auto) 0, Neutrophils # (Auto) 2.8, Lymphocytes # (Auto) 1.2, Monocytes # (Auto) 0.8, Eosinophils # (Auto) 0.3, Basophils # (Auto) 0.0, Sodium Level 139, Potassium Level 3.5L, Chloride Level 103, Carbon Dioxide Level 25, Anion Gap 11, Blood Urea Nitrogen 22H, Creatinine 1.02, Estimat Glomerular Filtration Rate > 60, BUN/Creatinine Ratio 22, Glucose Level 146H, Calcium Level 8.1L, Phosphorus Level 3.4, Magnesium Level 1.9 06/23/19 11:06: Glucometer 247H Microbiology 06/21/19 Blood Culture - Preliminary, Resulted No growth 06/21/19 MRSA Screen - Final, Complete MRSA not isolated 06/21/19 Urine Culture - Final, Complete NO GROWTH Pending Labs Microbiology Date/Time Source Procedure Growth Status 06/21/19 09:37 Peripheral Rt Ac Blood Culture - Preliminary No growth Resulted 06/21/19 09:20 [place], Nos Blood Culture - Preliminary No growth Resulted 06/21/19 14:22 Nasal MRSA Screen - Final MRSA not isolated Complete 06/21/19 14:20 Nasal Aspirate Influenza Types A,B Antigen (ROSENDA) - Final Complete 06/18/19 20:30 Nasal MRSA Screen - Final MRSA not isolated Complete 06/21/19 14:18 Urine Indwelling Cath (Usp) Urine Culture - Final NO GROWTH Complete Laboratory Tests 06/18/19 15:57: White Blood Count 6.7, Red Blood Count 3.75, Hemoglobin 12.1, Hematocrit 35, Mean Corpuscular Volume 92, Mean Corpuscular Hemoglobin 32, Mean Corpuscular Hemoglobin Concent 35, Red Cell Distribution Width 13.3, Platelet Count 155, Mean Platelet Volume 9.2, Neutrophils (%) (Auto) 55, Lymphocytes (%) (Auto) 29, Monocytes (%) (Auto) 12, Eosinophils (%) (Auto) 4, Basophils (%) (Auto) 0, Neutrophils # (Auto) 3.7, Lymphocytes # (Auto) 2.0, Monocytes # (Auto) 0.8, Eosinophils # (Auto) 0.2, Basophils # (Auto) 0.0, Prothrombin Time 13.4, INR Comment 1.0, Activated Partial Thromboplast Time 28, Sodium Level 140, Potassium Level 4.8, Chloride Level 105, Carbon Dioxide Level 22, Anion Gap 13, Blood Urea Nitrogen 20, Creatinine 1.10, Estimat Glomerular Filtration Rate > 60, BUN/Creatinine Ratio 18, Glucose Level 175, Calcium Level 9.4, Corrected Calcium 9.3, Total Bilirubin 0.5, Aspartate Amino Transf (AST/SGOT) 17, Alanine Aminotransferase (ALT/SGPT) 13, Alkaline Phosphatase 83, Troponin I < 0.028, Total Protein 7.1, Albumin 4.1 06/18/19 16:58: Urine Color YELLOW, Urine Clarity CLEAR, Urine pH 6, Urine Specific [place] 1.015, Urine Protein 1+, Urine Glucose (UA) NEGATIVE, Urine Ketones NEGATIVE, Urine Nitrite NEGATIVE, Urine Bilirubin NEGATIVE, Urine Urobilinogen NORMAL, Urine Leukocyte Esterase NEGATIVE, Urine RBC (Auto) NEGATIVE, Urine RBC RARE, Urine WBC NONE, Urine Squamous Epithelial Cells 0-2, Urine Crystals NONE, Urine Bacteria NEGATIVE, Urine Casts NONE, Urine Mucus NEGATIVE, Urine Culture Indicated NO 06/18/19 22:04: Glucometer 214 06/19/19 05:45: White Blood Count 8.3, Red Blood Count 3.51, Hemoglobin 11.2, Hematocrit 32, M [place] Corpuscular Volume 92, Mean Corpuscular Hemoglobin 32, Mean Corpuscular Hemoglobin Concent 35, Red Cell Distribution Width 13.3, Platelet Count 144, Mean Platelet Volume 9.0, Neutrophils (%) (Auto) 68, Lymphocytes (%) (Auto) 17, Monocytes (%) (Auto) 12, Eosinophils (%) (Auto) 2, Basophils (%) (Auto) 0, Neutrophils # (Auto) 5.7, Lymphocytes # (Auto) 1.4, Monocytes # (Auto) 1.0, Eosinophils # (Auto) 0.2, Basophils # (Auto) 0.0, Sodium Level 138, Potassium Level 4.2, Chloride Level 105, Carbon Dioxide Level 24, Anion Gap 9, Blood Urea Nitrogen 16, Creatinine 1.03, Estimat Glomerular Filtration Rate > 60, BUN/Creatinine Ratio 16, Glucose Level 245, Calcium Level 8.5, Corrected Calcium 8.7, Total Bilirubin 0.7, Aspartate Amino Transf (AST/SGOT) 19, Alanine Am inotransferase (ALT/SGPT) 12, Alkaline Phosphatase 79, Total Protein 6.3, Albumin 3.7 06/19/19 11:04: Glucometer 202 06/19/19 12:13: Glucometer 218 06/19/19 15:54: Glucometer 220 06/19/19 19:54: Glucometer 187 06/20/19 05:05: White Blood Count 8.9, Red Blood Count 2.87, Hemoglobin 9.3, Hematocrit 27, Mean Corpuscular Volume 94, Mean Corpuscular Hemoglobin 32, Mean Corpuscular Hemoglobin Concent 34, Red Cell Distribution Width 13.4, Platelet Count 126, Mean Platelet Volume 9.3, Neutrophils (%) (Auto) 71, Lymphocytes (%) (Auto) 14, Monocytes (%) (Auto) 10, Eosinophils (%) (Auto) 4, Basophils (%) (Auto) 0, Neutrophils # (Auto) 6.4, Lymphocytes # (Auto) 1.3, Monocytes # (Auto) 0.9, Eosinophils # (Auto) 0.4, Basophils # (Auto) 0.0, Sodium Level 135, Potassium Level 4.4, Chloride Level 102, Carbon Dioxide Level 21, Anion Gap 12, Blood Urea Nitrogen 14, Creatinine 1.24, Estimat Glomerular Filtration Rate 56, BUN/Creatinine Ratio 11, Glucose Level 269, Calcium Level 8.1, Corrected Calcium 8.5, Total Bilirubin 0.6, Aspartate Amino Transf (AST/SGOT) 15, Alanine Aminotransferase (ALT/SGPT) 9, Alkaline Phosphatase 50, Total Protein 5.9, Albumin 3.5 06/20/19 11:05: Glucometer 301 06/20/19 15:27: Glucometer 237 06/20/19 19:46: Glucometer 222 06/21/19 05:14: White Blood Count 6.3, Red Blood Count 2.34, Hemoglobin 7.5, Hematocrit 22, Mean Corpuscular Volume 96, Mean Corpuscular Hemoglobin 32, Mean Corpuscular Hemoglobin Concent 34, Red Cell Distribution Width 13.5, Platelet Count 91, Mean Platelet Volume 8.7, Neutrophils (%) (Auto) 69, Lymphocytes (%) (Auto) 17, Monocytes (%) (Auto) 11, Eosinophils (%) (Auto) 3, Basophils (%) (Auto) 0, Neutrophils # (Auto) 4.3, Lymphocytes # (Auto) 1.1, Monocytes # (Auto) 0.7, Eosinophils # (Auto) 0.2, Basophils # (Auto) 0.0, Sodium Level 138, Potassium Level 4.0, Chloride Level 104, Carbon Dioxide Level 23, Anion Gap 11, Blood Urea Nitrogen 15, Creatinine 1.03, Estimat Glomerular Filtration Rate > 60, BUN/Creatinine Ratio 15, Glucose Level 194, Calcium Level 8.0, Corrected Calcium 8.7, Total Bilirubin 0.6, Aspartate Amino Transf (AST/SGOT) 21, Alanine Aminotransferase (ALT/SGPT) 9, Alkaline Phosphatase 46, Total Protein 5.5, Albumin 3.1 06/21/19 05:39: Glucometer 205 06/21/19 08:21: Glucometer 358 06/21/19 09:20: Lactic Acid Level 2.69, Phosphorus Level 2.8, Magnesium Level 1.3, Troponin I 0.955, B-Type Natriuretic Peptide 1011.5 06/21/19 12:32: Glucometer 231 06/21/19 14:54: Lactic Acid Level 1.36 06/21/19 15:51: Glucometer 247 06/21/19 20:56: Glucometer 291 06/22/19 04:03: White Blood Count 7.3, Red Blood Count 2.84, Hemoglobin 9.2, Hematocrit 26, Mean Corpuscular Volume 92, Mean Corpuscular Hemoglobin 32, Mean Corpuscular Hemoglobin Concent 35, Red Cell Distribution Width 14.3, Platelet Count 102, Mean Platelet Volume 9.7, Neutrophils (%) (Auto) 76, Lymphocytes (%) (Auto) 12, Monocytes (%) (Auto) 11, Eosinophils (%) (Auto) 1, Basophils (%) (Auto) 0, Neutrophils # (Auto) 5.5, Lymphocytes # (Auto) 0.9, Monocytes # (Auto) 0.8, E osinophils # (Auto) 0.1, Basophils # (Auto) 0.0, Sodium Level 136, Potassium Level 3.6, Chloride Level 100, Carbon Dioxide Level 24, Anion Gap 12, Blood Urea Nitrogen 19, Creatinine 1.06, Estimat Glomerular Filtration Rate > 60, BUN/Creatinine Ratio 18, Glucose Level 236, Calcium Level 8.0, Corrected Calcium 8.5, Phosphorus Level 2.8, Magnesium Level 1.5, Total Bilirubin 1.3, Aspartate Amino Transf (AST/SGOT) 27, Alanine Aminotransferase (ALT/SGPT) 14, Alkaline Phosphatase 48, Lactate Dehydrogenase 296, Total Protein 5.8, Albumin 3.4 06/22/19 04:57: Glucometer 256 06/22/19 11:10: Glucometer 349 06/22/19 14:15: Lab Scanned Report Transfusion Reaction Form 06/22/19 15:23: Glucometer 202 06/22/19 20:37: Glucometer 155 06/23/19 03:20: White Blood Count 5.1, Red Blood Count 2.71, Hemoglobin 8.5, Hematocrit 25, Mean Corpuscular Volume 93, Mean Corpuscular Hemoglobin 31, Mean Corpuscular Hemoglobin Concent 34, Red Cell Distribution Width 14.0, Platelet Count 113, Mean Platelet Volume 8.9, Neutrophils (%) (Auto) 55, Lymphocytes (%) (Auto) 24, Monocytes (%) (Auto) 15, Eosinophils (%) (Auto) 6, Basophils (%) (Auto) 0, Neutrophils # (Auto) 2.8, Lymphocytes # (Auto) 1.2, Monocytes # (Auto) 0.8, Eosinophils # (Auto) 0.3, Basophils # (Auto) 0.0, Sodium Level 139, Potassium Level 3.5, Chloride Level 103, Carbon Dioxide Level 25, Anion Gap 11, Blood Urea Nitrogen 22, Creatinine 1.02, Estimat Glomerular Filtration Rate > 60, BUN/Creatinine Ratio 22, Glucose Level 146, Calcium Level 8.1, Phosphorus Level 3.4, Magnesium Level 1.9 06/23/19 11:06: Glucometer 247 Discharge Home Medications: Active Scripts Active Albuterol Sulfate 2.5 Mg/3 Ml Vial.neb 2.5 Mg INH TID Floranex Granules Packet (L. Acidophilus/[place]) 1 Each Gran.pack 1 Gm PO ACHS Pantoprazole Sodium 40 Mg Tablet.dr 40 Mg PO DAILY Fluticasone Propionate 16 Gm [place].susp 2 [place] NS DAILY Montelukast Sodium 10 Mg Tablet 10 Mg PO HS Loratadine 10 Mg Tablet 10 Mg PO DAILY Reported Glucose (Dextrose) 4 Gm Tab.chew 4 Gm PO UD PRN Lantus Solostar (Insulin Glargine,Hum.rec.anlog) 100 Unit/1 Ml Insuln.pen 15-20 Units SC HS Lipitor (Atorvastatin Calcium) 10 Mg Tablet 10 Mg PO DAILY Aspirin EC (Aspirin) 81 Mg Tablet.dr 81 Mg PO DAILY Galantamine HBr 8 Mg Tablet 4 Mg PO BID TAKES 1/2 (8MG) TABLET Entresto 24 mg-26 mg Tablet (Sacubitril/Valsartan) 1 Each Tablet 1 Tab PO BID Metformin HCl 500 Mg Tablet 500 Mg PO DAILY Advair 250-50 Diskus (Fluticasone/Salmeterol) 1 Each Blst.w.dev 1 Puff IH BID Sertraline HCl 100 Mg Tablet 100 Mg PO DAILY Carvedilol 3.125 Mg Tablet 3.125 Mg PO BID Dronabinol 2.5 Mg Capsule 2.5 Mg PO BID Ritalin (Methylphenidate HCl) 5 Mg Tablet 5 Mg PO BID Humalog Kwikpen (Insulin Lispro) 100 Unit/1 Ml Insuln.pen 15-25 Units SQ AC Instructions to patient/family Please see electronic discharge instructions given to patient. Diagnosis/Problems Diagnosis/Problems (1) Fracture of femur, intertrochanteric, left, closed Status: Acute Qualifiers: Qualified Codes: S72.145A - Nondisplaced intertrochanteric fracture of left femur, initial encounter for closed fracture (2) Fall Status: Acute Qualifiers: Qualified Codes: W19.XXXA - Unspecified fall, initial encounter (3) Ischemic cardiomyopathy Status: Chronic (4) Renal insufficiency Status: Chronic (5) Neuropathy Status: Chronic (6) Hx of CABG Status: Chronic (7) COPD (chronic obstructive pulmonary disease) (8) History of Clostridium difficile infection Status: Chronic (9) Hypertension Status: Chronic Qualifiers: Qualified Codes: I10 - Essential (primary) hypertension (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 (11) CAD (coronary artery disease) Status: Chronic Qualifiers: Qualified Codes: I25.10 - Atherosclerotic heart disease of [place] coronary artery without angina pectoris (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 Qualifiers: Qualified Codes: G57.02 - Lesion of sciatic nerve, left lower limb (13) Flash pulmonary edema (14) Sepsis Status: Acute Qualifiers: Qualified Codes: A41.9 - Sepsis, unspecified organism (15) Elevated lactic acid level Status: Acute (16) Transfusion of blood during current hospitalization Status: Acute (17) Postoperative anemia Status: Acute (18) Troponin level elevated Status: Acute (19) Elevated brain natriuretic peptide (BNP) level Status: Acute (20) Acute delirium Clinical Quality Measures DVT/VTE Risk/Contraindication: Risk Factor Score Per Nursin RFS Level Per Nursing on Admit: 4+=Very High ADALBERTO ARENAS DO Jun 23, 2019 08:24
[2019-06-23] MEDS: FUROSEMIDE 40 MG/4 ML INJ (LASIX) IVP SCH (08:52)
[2019-06-23] MEDS: SACUBITRIL/VALSARTAN 24/26 MG (ENTRESTO) TABLET PO SCH (08:52)
[2019-06-23] MEDS: SENNA W/DOCUSATE (SENOKOT S) TABLET PO SCH (08:52)
[2019-06-23] MEDS: CARVEDILOL 3.125 MG (COREG) TABLET PO SCH (08:53)
[2019-06-23] MEDS ORDERED: KCL 20 MEQ TAB (K-DUR) PO ONE (09:00)
[2019-06-23] MEDS ORDERED: SERTRALINE 100 MG (ZOLOFT) TAB PO SCH (09:00)
[2019-06-23] MEDS ORDERED: FLUTICASONE NASAL SPRAY (FLONASE) 16 GM BTL NS SCH (09:00)
[2019-06-23] MEDS ORDERED: PANTOPRAZOLE 40 MG (PROTONIX) VIAL IV SCH (09:00)
[2019-06-23] MEDS ORDERED: PANTOPRAZOLE 40 MG (PROTONIX) TAB PO SCH (09:00)
--- NOTE | 2019-06-23 09:05 | NUR ---
Pt transferred with PT via W/C to room 230. Report given to Kari BREWSTER. Personal belongings transported with pt.
--- NOTE | 2019-06-23 09:12 | Progress Note - Ortho ---
Progress Note Subjective Date of Exam 06/23/19 Chief Complaint POD#4 long TFN left hip for 2 part intratrochanteric fracture HPI/Events since last exam The patient continues in ICU. He is doing better. Left hip pain is decreasing. It is rehabilitation has been a little limited due to his medical conditions but he is getting up with a walker still not full weightbearing on the left. The patient remains afebrile Hemoglobin 8.5 this a.m. Review of Systems Reviewed and no additions or changes Allergies: Coded Allergies: No Known Drug Allergies (Verified , 09/19/08) Home Meds Active Scripts Albuterol Sulfate (Albuterol Sulfate) 2.5 Mg/3 Ml Vial.neb, 2.5 MG INH TID, #60 EA Prov:ADALBERTO ARENAS DO 10/19/18 L. Acidophilus/Bulgaricus (Floranex Granules Packet) 1 Each Gran.pack, 1 GM PO ACHS, #60 EA Prov:ADALBERTO ARENAS DO 10/19/18 Pantoprazole Sodium (Pantoprazole Sodium) 40 Mg Tablet.dr, 40 MG PO DAILY, #30 TAB Prov:ADALBERTO ARENAS DO 10/19/18 Fluticasone Propionate (Fluticasone Propionate) 16 Gm [place].susp, 2 SPRAY NS DAILY, #1 SPRAY Prov:ADALBERTO ARENAS DO 10/19/18 Montelukast Sodium (Montelukast Sodium) 10 Mg Tablet, 10 MG PO HS, #30 TAB Prov:ADALBERTO ARENAS DO 10/19/18 Loratadine (Loratadine) 10 Mg Tablet, 10 MG PO DAILY, #30 TAB Prov:ADALBERTO ARENAS DO 10/19/18 Reported Medications Dextrose (Glucose) 4 Gm Tab.chew, 4 GM PO UD PRN for BS<120, TAB 02/24/19 Insulin Glargine,Hum.rec.anlog (Lantus Solostar) 100 Unit/1 Ml Insuln.pen, 15-20 UNITS SC HS, EA 02/24/19 Atorvastatin Calcium (Lipitor) 10 Mg Tablet, 10 MG PO DAILY, TAB 10/17/18 Aspirin (Aspirin EC) 81 Mg Tablet.dr, 81 MG PO DAILY, TAB 10/17/18 Galantamine HBr (Galantamine HBr) 8 Mg Tablet, 4 MG PO BID, TAB TAKES 1/2 (8MG) TABLET 10/17/18 Sacubitril/Valsartan (Entresto 24 mg-26 mg Tablet) 1 Each Tablet, 1 TAB PO BID, TAB 10/17/18 Metformin HCl (Metformin HCl) 500 Mg Tablet, 500 MG PO DAILY, TAB 10/17/18 Fluticasone/Salmeterol (Advair 250-50 Diskus) 1 Each Blst.w.dev, 1 PUFF IH BID, INHALER 08/28/16 Sertraline HCl (Sertraline HCl) 100 Mg Tablet, 100 MG PO DAILY, TAB 08/28/16 Carvedilol (Carvedilol) 3.125 Mg Tablet, 3.125 MG PO BID, TAB 08/28/16 Dronabinol (Dronabinol) 2.5 Mg Capsule, 2.5 MG PO BID, CAP 08/28/16 Methylphenidate HCl (Ritalin) 5 Mg Tablet, 5 MG PO BID, TAB 07/22/15 Insulin Lispro (Humalog Kwikpen) 100 Unit/1 Ml Insuln.pen, 15-25 UNITS SQ AC, EA 07/22/15 Objective Exam Constitutional: [] HEENT: [] Neck: [] Cardiovascular: [] Respiratory: [] Gastrointestinal: [] Genitourinary: [] Skin: [] Back/Spine: [] Extremities: [Bruising left hip. Incisions are healing well without redness or drainage. No calf tenderness and negative Homans. Good strength on dorsiflexion plantar flexes the foot and ankle. Normal sensation his foot and toes with good capillary refill and good pulses. Mild pain with range of motion left hip] Neurologic: [] Psychiatric: [] Hematologic/lymphatic/immunologic: [] Vital Signs Vital Signs Date Time Temp Pulse Resp B/P (MAP) Pulse Ox O2 Delivery O2 Flow Rate FiO2 06/23/19 08:07 99 Room Air 06/23/19 07:59 98.6 06/23/19 06:00 89 18 150/75 (100) 100 Room Air 06/23/19 05:00 87 19 135/67 (89) 100 Room Air 06/23/19 04:00 88 18 133/67 (89) 96 Room Air 06/23/19 03:10 99 Room Air 06/23/19 03:05 98.6 92 19 131/73 (92) 100 Room Air 06/23/19 03:00 95 19 131/73 (92) 95 Room Air 06/23/19 02:00 90 16 93/49 (64) 99 Room Air 06/23/19 01:00 97 18 109/60 (76) 94 Room Air 06/23/19 00:59 99 06/23/19 00:00 99.0 86 18 91/49 (63) 95 Room Air 06/23/19 00:00 95 Room Air 06/22/19 23:02 96 Room Air 06/22/19 23:00 96 22 100/47 (64) 92 Room Air 06/22/19 22:00 101 16 111/68 (82) 95 Room Air 06/22/19 21:00 105 20 100/54 (69) 100 Room Air 06/22/19 20:00 94 Room Air 06/22/19 20:00 102 16 100/54 (69) 92 Room Air 06/22/19 19:48 98.7 106 18 115/66 (82) 06/22/19 19:40 99.4 107 12 Room Air 06/22/19 19:00 102 22 115/71 (86) 96 Room Air 06/22/19 19:00 108 06/22/19 18:09 94 16 106/40 (62) 92 Room Air 06/22/19 17:00 96 21 104/52 (69) 98 Room Air 06/22/19 16:39 98.9 96 16 114/47 (69) 99 06/22/19 16:13 90 12 114/47 (69) 100 Room Air 06/22/19 16:00 98 Room Air 06/22/19 15:52 99 Room Air 06/22/19 15:08 86 20 99 Room Air 06/22/19 14:00 87 25 99/41 (60) 99 Room Air 06/22/19 13:16 94 06/22/19 13:00 89 31 102/47 (65) 99 Room Air 06/22/19 12:29 98.3 06/22/19 12:00 100 26 98/47 (64) Room Air 06/22/19 12:00 98.3 06/22/19 12:00 92 Room Air 06/22/19 11:00 97 19 111/67 (82) 97 Room Air 06/22/19 10:00 80 12 82/44 (57) 94 Room Air I & O 06/23/19 07:00 Intake Total 2235 ml Output Total 2280 ml Balance -45 ml Lab Results Laboratory Tests 06/22/19 11:10: Glucometer 349H 06/22/19 14:15: Lab Scanned Report Transfusion Reaction Form 06/22/19 15:23: Glucometer 202H 06/22/19 20:37: Glucometer 155H 06/23/19 03:20: White Blood Count 5.1, Red Blood Count 2.71L, Hemoglobin 8.5L, Hematocrit 25L, Mean Corpuscular Volume 93, Mean Corpuscular Hemoglobin 31, Mean Corpuscular Hemoglobin Concent 34, Red Cell Distribution Width 14.0, Platelet Count 113L, Mean Platelet Volume 8.9, Neutrophils (%) (Auto) 55, Lymphocytes (%) (Auto) 24, Monocytes (%) (Auto) 15H, Eosinophils (%) (Auto) 6, Basophils (%) (Auto) 0, Neutrophils # (Auto) 2.8, Lymphocytes # (Auto) 1.2, Monocytes # (Auto) 0.8, E osinophils # (Auto) 0.3, Basophils # (Auto) 0.0, Sodium Level 139, Potassium Level 3.5L, Chloride Level 103, Carbon Dioxide Level 25, Anion Gap 11, Blood Urea Nitrogen 22H, Creatinine 1.02, Estimat Glomerular Filtration Rate > 60, BUN/Creatinine Ratio 22, Glucose Level 146H, Calcium Level 8.1L, Phosphorus Level 3.4, Magnesium Level 1.9 Microbiology 06/21/19 Blood Culture - Preliminary, Resulted No growth 06/21/19 MRSA Screen - Final, Complete MRSA not isolated 06/21/19 Urine Culture - Final, Complete NO GROWTH Assessment and Plan Assessment Doing well status post long TFN left hip. Postop day number 4 Problem List Unchanged Plan Continued with physical therapy walker ambulation weightbearing as tolerated on the left. Plan for transfer to rehabilitation today per Dr. Arenas Final Diagonsis Status post long TFN left hip for two-part intertrochanteric fracture Level of the visit: Level 3 Focused Exam Lactate Level 06/21/19 09:20: Lactic Acid Level 2.69*H 06/21/19 14:54: Lactic Acid Level 1.36 Clinical Quality Measures DVT/VTE Risk/Contraindication: Risk Factor Score Per Nursin RFS Level Per Nursing on Admit: 4+=Very High DAX YOUNG MD Jun 23, 2019 09:11
[2019-06-23] MEDS ORDERED: risperiDONE 1 MG (RisperDAL) TAB PO SCH (21:00)
== END 2019-06-23 09:00 | DRG 480 ==
LOC: EDUNIT# 15:52 → ER 15:53 → 4TH 16:50 → ICU 06-21 10:10
PROVIDERS: ADMIT Internal Medicine; ATTEND Internal Medicine Cardiovascular Disease
PROC: 0QS736Z Reposition Left Upper Femur with Intramedullary Internal Fixation Device, Percutaneous Approach (ICD-10-PCS; principal; 2019-06-19 09:22)
DX: S72.145A Nondisplaced intertrochanteric fracture of left femur, initial encounter for closed fracture (principal); E11.42 Type 2 diabetes mellitus with diabetic polyneuropathy; I42.7 Cardiomyopathy due to drug and external agent; C91.01 Acute lymphoblastic leukemia, in remission; I50.23 Acute on chronic systolic (congestive) heart failure; A41.9 Sepsis, unspecified organism; D62 Acute posthemorrhagic anemia; I25.5 Ischemic cardiomyopathy; J40 Bronchitis, not specified as acute or chronic; J01.90 Acute sinusitis, unspecified; I12.9 Hypertensive chronic kidney disease with stage 1 through stage 4 chronic kidney disease, or unspecified chronic kidney disease; N18.9 Chronic kidney disease, unspecified; I25.10 Atherosclerotic heart disease of native coronary artery without angina pectoris; J43.9 Emphysema, unspecified; G57.02 Lesion of sciatic nerve, left lower limb; R41.0 Disorientation, unspecified; I48.91 Unspecified atrial fibrillation; I25.2 Old myocardial infarction; E78.00 Pure hypercholesterolemia, unspecified; K27.9 Peptic ulcer, site unspecified, unspecified as acute or chronic, without hemorrhage or perforation; K21.9 Gastro-esophageal reflux disease without esophagitis; M19.91 Primary osteoarthritis, unspecified site; I65.23 Occlusion and stenosis of bilateral carotid arteries; Z95.1 Presence of aortocoronary bypass graft; Z79.4 Long term (current) use of insulin; Z79.82 Long term (current) use of aspirin; Z87.891 Personal history of nicotine dependence; Z86.718 Personal history of other venous thrombosis and embolism; Y92.009 Unspecified place in unspecified non-institutional (private) residence as the place of occurrence of the external cause; W10.8XXA Fall (on) (from) other stairs and steps, initial encounter
CPT/HCPCS: 36415; 70450; 71045; 72125; 72170; 73502; 80048; 80053; 81000; 82962; 83605; 83615; 83735; 83880; 84100; 84484; 85025; 85610; 85730; 86850; 86900; 86901; 86920; 87040; 87081; 87088; 87804; 93005; 93306; 94640; 94664; 96360

== ENCOUNTER 2019-06-21 15:28 | Inpatient (IN) | payer MEDICARE ==
[~2019-06-21] VITALS: Ht 180.3 cm; Wt 74.1 kg
--- NOTE | 2019-06-21 14:32 | Progress Note ---
Standard Progress Note Progress Notes/Assess & Plan Date Seen by a Provider: Jun 21, 2019 Time Seen by a Provider: 14:25 Progress/Assessment & Plan 78-year-old male admitted with left intertrochanteric fracture following a fall, status post surgical fixation on 06/19/2019. Patient has history of ALL, status post chemotherapy with course A of hyper CVAD regimen complicated by cardiomyopathy, CHF as well as renal failure and further chemotherapy held. Patient went into complete remission with this and was treated with maintenance chemotherapy using POMP regimen 2 years and stopped in June 2017. He has been on surveillance without evidence of recurrence. Patient had increased shortness of breath and tachycardia today morning with a hemoglobin level of 7.5. No obvious bleeding other than bruising in the left thigh. Patient was moved to cardiac stepdown unit and is receiving PRBC transfusion. He is feeling better with pulse rate of 105 and oxygen saturation of 96-98 percent. Platelet count dropped further today. I would recommend discontinuing Lovenox and to use SCDs for DVT prophylaxis. Monitor lab work serially. Will follow patient with you. JORGE CARDENAS Jun 21, 2019 14:32
[2019-06-23 09:15] VITALS: BP 109/67
--- NOTE | 2019-06-23 09:35 | NUR ---
REVIEWED MED REC IT WAS REPORTED UPON ADMISSION TO 4TH FLOOR.
[2019-06-23] MEDS ORDERED: diphenhydrAMINE 25 MG TAB (BENADRYL) PO PRN (09:45)
[2019-06-23] MEDS ORDERED: LOPERAMIDE 2 MG (IMODIUM) TABLET PO PRN (09:45)
[2019-06-23] MEDS ORDERED: ALPRAZolam 0.25 MG (XANAX) TAB PO PRN (09:45)
[2019-06-23] MEDS ORDERED: DOCUSATE SODIUM 100 MG (COLACE) CAP PO PRN (09:45)
[2019-06-23] MEDS ORDERED: fentaNYL INJECTION 100 MCG/2 ML AMP IVP PRN (09:45)
[2019-06-23] MEDS ORDERED: CHLORASEPTIC SPRAY 177 ML LIQUID MC PRN (09:45)
[2019-06-23] MEDS ORDERED: SALINE NASAL SPRAY (OCEAN) 45 ML BTL PRN (09:45)
[2019-06-23] MEDS ORDERED: ONDANSETRON 4 MG/2 ML (SDV) Z0FRAN IVP PRN (09:45)
[2019-06-23] MEDS ORDERED: ONDANSETRON 4 MG (ZOFRAN) ORAL DISSOLVE TAB PO PRN (09:45)
[2019-06-23] MEDS ORDERED: CALCIUM CARBONATE 500 MG (TUMS) TAB.CHEW PO PRN (09:45)
[2019-06-23] MEDS ORDERED: HYDROcodone/APAP 5 MG/325 MG (LORTAB) TAB PO PRN (09:45)
[2019-06-23] MEDS ORDERED: RT-ADVAIR HFA 115/21 MCG PER PUFF IH ONE (09:51)
--- NOTE | 2019-06-23 09:54 | PM&R H&P / Post Admit Assess ---
History of Present Illness HPI/Chief Complaint CC: Debility following left hip fracture HPI: This is a 78yoWM clinic pt of [facility] with sever comorbidities who had an uncomplicated left hip fracture repair by Dr. Richards on Wednesday after sustaining a fall at his daughters office after missing a step on the stairs an subsequently was repaired but had some flash pulmonary edema requiring transfer to the ICU and lactic acid elevation with acute sinusitis requiring Zosyn antibiotics empirically along with IV Lasix with close monitoring and severe delirium requiring a live sitter since he was such a fall risk and received two units of blood with good improvement in Hgb of 7.5 and decreased platelet counts so Dr. Alvarado, Dr Nettles, Dr. Foreman and Dr. Richards agreed with plan to transfer to ICU and he was improving significantly so and delirium was improved to the po int to where he was able to DC to inpatient rehab and continue his intensive therapies which may require 15/7 intensity because of the delirium but will try our best to initiate. Weight bearing is tolerated per Dr. Richards and we will monitor bowel function, and bladder function and monitor labs in the meantime. 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 Source: patient, family, RN/MD, old records Exam Limitations: no limitations Date Seen 06/23/19 Time Seen by a Provider: 10:00 Attending Physician Rosalinda Arenas DO PCP Rosalinda Arenas DO Referring Physician Date of Admission Jun 23, 2019 at 09:22 Home Medications & Allergies Home Medications Reviewed patient Home Medication Reconciliation performed by pharmacy medication reconciliations compliance technician and/or nursing. Patients Allergies have been reviewed. Allergies Allergies Coded Allergies No Known Drug Allergies (Koxtxmfc06/3/08) Past Ztofuzu-Tauuip-Lnowiy Hx Past Med/Social Hx: Reviewed Nursing Past Med/Soc Hx, Reviewed and Corrections made Patient Social History Marrital Status: Employed/Student: employed ([employer]) Alcohol Beverage of Choice: Beer Smoking Status: Former Smoker (quit 1973) Former Smoker, Quit: Jul 26, 1985 2nd Hand Smoke Exposure: No Recent Hopitalizations: No Immunizations Up To Date Tetanus Booster (TDap): Less than 5yrs Pediatric: No Date of Pneumonia Vaccine: Aug 29, 2018 Date of Influenza Vaccine: Aug 29, 2018 Seasonal Allergies Seasonal Allergies: No Past Medical History Surgeries: Abdominal, CABG, Gallbladder, Open Heart Surgery Respiratory: COPD, Pneumonia Currently Using CPAP: No Currently Using BIPAP: No Cardiac: Atrial Fibrillation, Coronary Artery Disease, Heart Attack, High Cholesterol, Hypertension Neurological: Dementia, Neuropathy Reproductive: No Sexually Transmitted Disease: No HIV/AIDS: No Genitourinary: Prostate Problems, Renal Failure Gastrointestinal: Gastroesophageal Reflux, Gastrointestinal Bleed Musculoskeletal: Arthritis Endocrine: Diabetes, Insulin dep HEENT: Cataract Cancer: Leukemia, Skin Did You Recieve Any Treatments: Yes What Type of Treatment Did You: Chemotherapy History of Blood Disorders: Yes (LEUKEMIA) Adverse Reaction to Blood Vargas: No Family History Cardiovascular disease G8 BROTHER Diabetes mellitus 19 MOTHER G8 BROTHER Hypertension 19 MOTHER Heart Disease, CAD Over 55 Years Old, Diabetes, Hypertension, Vascular Disease Review of Systems Constitutional: see HPI, dizziness, malaise, weakness EENTM: no symptoms reported Respiratory: cough, dyspnea on exertion, short of breath Cardiovascular: no symptoms reported Gastrointestinal: no symptoms reported Musculoskeletal: joint pain (left hip) Skin: no symptoms reported Psychiatric/Neurological: Other (confused) Physical Exam Exam Vital Signs Vital Signs Date Time Temp Pulse Resp B/P (MAP) Pulse Ox O2 Delivery O2 Flow Rate FiO2 06/24/19 06:33 Room Air 06/24/19 06:26 92 06/23/19 22:00 101 118/68 (85) 06/23/19 16:05 99.9 16 Capillary Refill : General Appearance: No Apparent Distress, WD/WN, Chronically ill, Thin HEENT: PERRL/EOMI, Normal ENT Inspection, Pharynx Normal, Moist Mucous Membranes Neck: Full Range of Motion, Normal Inspection, Non Tender, Supple Respiratory: Chest Non Tender, Lungs Clear, Normal Breath Sounds, No Accessory Muscle Use, No Respiratory Distress Cardiovascular: Regular Rate, Rhythm, No Edema, No Gallop, No JVD, No Murmur Gastrointestinal: Normal Bowel Sounds, No Organomegaly, No Pulsatile Mass, Non Tender, Soft Back: Normal Inspection, No CVA Tenderness, No Vertebral Tenderness Extremity: Normal Capillary Refill, Normal Inspection, Normal Range of Motion (except left leg), Non Tender, No Calf Tenderness, No Pedal Edema Neurologic/Psychiatric: Alert, Oriented x3, No Motor/Sensory Deficits, Normal Mood/Affect, 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 diff history h/o ARF while at [facility] for ALL induction PUD Remission for acute lymphocytic leukemia for [address] Perez Ischemic cardiomyopathy with improvement in ejection fraction from 30 percent to 55 percent due to Entresto management Plan: IRF DVT PPx per Dr Nettles Monitor for ACS and CHF Appreciate Dr Foreman and Dr Richards and Dr Alvarado and Dr Nettles (1) Fracture of femur, intertrochanteric, left, closed Status: Acute Qualifiers: Encounter type: subsequent encounter (2) Fall Status: Acute Qualifiers: Encounter type: subsequent encounter Qualified Codes: W19.XXXD - Unspecified fall, subsequent encounter (3) Acute delirium Status: Acute (4) Elevated lactic acid level Status: Resolved Resolution Date/Time: 06/24/19 @ 07:04 (5) Transfusion of blood during current hospitalization Status: Resolved Resolution Date/Time: 06/24/19 @ 07:04 (6) Elevated brain natriuretic peptide (BNP) level Status: Resolved Resolution Date/Time: 06/24/19 @ 07:04 (7) Troponin level elevated Status: Resolved Resolution Date/Time: 06/24/19 @ 07:04 (8) Postoperative anemia Status: Acute (9) Sepsis Status: Resolved Resolution Date/Time: 06/24/19 @ 07:04 (10) Flash pulmonary edema Status: Resolved Resolution Date/Time: 06/24/19 @ 07:04 (11) History of Clostridium difficile infection Status: Chronic (12) Ischemic cardiomyopathy Status: Chronic (13) Sciatic neuropathy Status: Chronic (14) Hypertension Status: Chronic Qualifiers: Hypertension type: essential hypertension Qualified Codes: I10 - Essential (primary) hypertension (15) Renal insufficiency Status: Chronic (16) Hx of CABG Status: Chronic (17) Neuropathy Status: Chronic (18) CAD (coronary artery disease) Status: Chronic Qualifiers: Coronary Disease-Associated Artery/Lesion type: [place] artery [place] vs. transplanted heart: [place] heart Associated angina: without angina Qualified Codes: I25.10 - Atherosclerotic heart disease of [place] coronary artery without angina pectoris (19) COPD (chronic obstructive pulmonary disease) Status: Chronic Qualifiers: COPD type: unspecified COPD Qualified Codes: J44.9 - Chronic obstructive pulmonary disease, unspecified (20) ALL (acute lymphocytic leukemia) Status: Chronic (21) COPD with acute exacerbation Status: Resolved Resolution Date/Time: 06/24/19 @ 07:04 (22) Orthostasis Status: Chronic (23) Postoperative pain Status: Acute Post Admission Physician Asses Date seen by provider: Jun 23, 2019 Time seen by provider: 10:00 Admisison Dx: (1) Fracture of femur, intertrochanteric, left, closed Status: Acute The preadmission screen agrees with the post admission assessment that the patient is a good candidate for inpatient rehabilitation. The patient will have a comprehensive program of inpatient rehabilitation with a goal of maximizing level of functional independence prior to discharge home with family. The patient will have PT/OT ninety minutes per day, each discipline, five days a week for gait, strengthening, conditioning, balance, ADLs, any patient/family/caregiver training as necessary. Speech therapy to do cognitive assessment and treat as indicated. Rehabilitation nursing to assist with bowel, bladder, skin, wound care, medication administration, pain management. Food Service Director to assist with discharge planning, community reentry. SCD's for DVT prophylaxis. He appears to be well motivated to participate in three hours of therapy a day. He should be able to tolerate three hours of therapy a day from a medical standpoint. He should benefit from the three hours of therapy a day. He has a reasonable discharge plan, reasonable discharge rehabilitation goals and a supportive family. He has various comorbidities that need to be closely monitored with medications and treatments adjusted on a daily basis as needed. These include: see list Barriers to discharge for this patient who had been independent prior to this are for him to be modified independent to supervision for ADLs and mobility skills prior to discharge home with family, so as to lessen the burden of the caregivers. Risks for this patient include: 1. Fall 2. Fracture 3. DVT 4. Pulmonary embolism 5. Wound infection 6. Skin breakdown 7. Contractures 8. Poorly controlled pain 9. Urinary retention 10. UTI 11. Respiratory infection 12. Aspiration Estimated Length of Stay: 14 days Prognosis: Rehab prognosis appears good for goal of discharge home with family modified independent to supervision for ADLs and mobility skills. ROSALINDA ARENAS DO Jun 23, 2019 09:54
[2019-06-23] MEDS: RT-ALBUTEROL/IPRATROPIUM 3 ML (DUONEB) VIAL INH PRN ×2 (10:00→15:22)
--- NOTE | 2019-06-23 10:11 | Physical Therapy Daily Note ---
PT Daily Note-Current Subjective Agrees to PT. Reports he is tired. Reports his mobility is primarily limited by pain but also weakness. Pain Numeric Pain Scale: 6 Location: Left Location Body Site: Hip Pain Description: Ache (sore) Mental Status Patient Orientation: Person, Place, Time, Situation Transfers Therapy Code Descriptions/Definitions Functional Nobles Measure: 0=Not Assessed/NA 4=Minimal Assistance 1=Total Assistance 5=Supervision or Setup 2=Maximal Assistance 6=Modified Nobles 3=Moderate Assistance 7=Complete Nobles Therapy Quality Codes: 6 Independent with activity with or without an assistive device 5 Patient requires set up or clean up by helper. Patient completes activity by themselves 4 Supervision or touching assist (CGA). [place] provide cues , steadying assist 3 The helper provides less than half the effort to complete the activity 2 The helper provides more than half the effort to complete the activity 1 Dependent. The helper does all the effort to complete an activity 7 Patient refused to complete or attempt activity 9 The patient did not perform the activity before the current illness or injury 88 Not attempted due to Medical conditions or safety concerns Transfers (B, C, W/C) (FIM): 3 Supine to/from Sit: 3 (assist with both legs; pt had poor control of his trunk as he laid down.) Sit to Lying (QC): 3 Sit to Stand (QC): 3 Mod assist to stand up with heavy cues for sequencing, leaning forward and pushing up from the chair. Pt tends to push back during transition, making it more difficult to stand up. Weight Bearing Right Lower Extremity: Right Weight Bearing/Tolerated Left Lower Extremity: Left Non Weight Bearing Gait Training Does the Patient Walk?: Yes Gait (FIM): 2 Distance (FIM): 8=534-12 ft Distance: 50 ft x 4 Gait Level of Assist: 4 Gait Assistive Device: FWW Slow gait; pt is WBAT but limits WB through L LE due to pain; decreased step lauren gth and tends to stay on his toes left. Slow gait and slightly unsteady; requires close CGA for safety. Treatments Functional gait training, bed mobility training and transitional sit to/from stand training. Pt requires cues 75% of the time with bed mobility as well as with sit to/from stand transfers. Pt in recliner post treatment with needs met. Assessment Pt is motivated and cooperative. Fatigued this date. Follows cues well. PT Plan Problem List Problem List: Activity Tolerance, Functional Strength, Safety, Balance, Gait, Transfer, Bed Mobility Treatment/Plan Treatment Plan: Continue Plan of Care Treatment Plan: Bed Mobility, Education, Functional Activity Tessie, Functional Strength, Group Therapy, Gait, Safety, Therapeutic Exercise, Transfers Treatment Duration: Jul 21, 2019 Frequency: At least 5 of 7 days/Wk (IRF) Estimated Hrs Per Day: 1.5 hours per day Patient and/or Family Agrees t: Yes Safety Risks/Education Patient Education: Transfer Techniques, Safety Issues Teaching Recipient: Patient Teaching Methods: Demonstration, Discussion Response to Teaching: Reinforcement Needed Discharge Recommendations Plan Progress functional transfers and gait as patient able. Therapy Discharge Recommendati: Post Acute PT Time/GCodes Time In: 915 Time Out: 1000 Total Billed Treatment Time: 45 Total Billed Treatment visit FA 30 GT 15 DANNA QUESADA PT Jun 23, 2019 10:10
--- NOTE | 2019-06-23 10:44 | NUR ---
Weight bearing status clarified with Dr. Richards. Patient is weight bearing as tolerated BLEs.
--- NOTE | 2019-06-23 11:09 | Physical Therapy Evaluation ---
PT Evaluation-General Medical Diagnosis Admission Date Jun 23, 2019 at 09:22 Medical Diagnosis: left femur fracture Onset Date: Jun 18, 2019 Therapy Diagnosis Therapy Diagnosis: generalized weakness/debility Height/Weight Height (Feet): 5 Height (Inches): 11.00 Weight (Pounds): 179 Weight (Ounces): 10.0 Precautions Precautions/Isolations: Fall Prevention, Standard Precautions Weight Bear Status Right Lower Extremity: Right Weight Bearing/Tolerated Left Lower Extremity: Left Weight Bearing/Tolerated Referral Physician: Mac Reason for Referral: Evaluation/Treatment Medical History Pertinent Medical History: Atrial Fib, Arthritis, CABG, CAD, COPD, DM, GERD, HTN, [place], Neuropathy, Renal Insufficiency Current History fall down last step in home Reviewed History: Yes Social History Home: Single Level Current Living Status: Spouse Prior/Core FIM Prior Level of Function Therapy Code Descriptions/Definitions Functional [place] Measure: 0=Not Assessed/NA 4=Minimal Assistance 1=Total Assistance 5=Supervision or Setup 2=Maximal Assistance 6=Modified [place] 3=Moderate Assistance 7=Complete [place] Therapy Quality Codes: 6 Independent with activity with or without an assistive device 5 Patient requires set up or clean up by helper. Patient completes activity by themselves 4 Supervision or touching assist (CGA). [place] provide cues , steadying assist 3 The helper provides less than half the effort to complete the activity 2 The helper provides more than half the effort to complete the activity 1 Dependent. The helper does all the effort to complete an activity 7 Patient refused to complete or attempt activity 9 The patient did not perform the activity before the current illness or injury 88 Not attempted due to Medical conditions or safety concerns Functional Abilities and Goals: Independent: Patient completed the activities by him/herself, with or without an assistive device, with no assistance from a helper. Needed Some Help: Patient needed partial assistance from another person to complete activities. Dependent: A helper completed the activities for the patient. Unknown: Not Applicable: Bed Mobility: 7 Transfers (B,C,W/C) (FIM): 7 Gait: 7 Stairs: 7 Indoor Mobility (Ambulation): Independent Stairs: Independent Prior Devices Use: None PT Evaluation-Current Subjective Patient is mildly confused, however, answers questions appropriately. Pain Numeric Pain Scale: 5-Moderate Pain Location: Left Location Body Site: Hip Pain Description: Acute Objective Patient Orientation: Person, Time, Situation Problem Solving: Fair ROM/Strength ROM Lower Extremities bilateral LE WFL (left LE slightly limited due to pain) Strenght Lower Extremities left LE 3-/5 grossly/right LE 3+/5 grossly Integumentary/Posture Integumentary refer to nursing notes Bowel Incontinence: No Bladder Incontinence: No Posture slightly kyphotic Neuromuscular (Tone, Coordination, Reflexes) grossly intact Sensory Vision: Wears Glasses Hearing: Impaired Sensation Right Lower Extremit: Intact Sensation Left Lower Extremity: Intact Transfers Therapy Code Descriptions/Definitions Functional [place] Measure: 0=Not Assessed/NA 4=Minimal Assistance 1=Total Assistance 5=Supervision or Setup 2=Maximal Assistance 6=Modified [place] 3=Moderate Assistance 7=Complete [place] Therapy Quality Codes: 6 Independent with activity with or without an assistive device 5 Patient requires set up or clean up by helper. Patient completes activity by themselves 4 Supervision or touching assist (CGA). [place] provide cues , steadying assist 3 The helper provides less than half the effort to complete the activity 2 The helper provides more than half the effort to complete the activity 1 Dependent. The helper does all the effort to complete an activity 7 Patient refused to complete or attempt activity 9 The patient did not perform the activity before the current illness or injury 88 Not attempted due to Medical conditions or safety concerns Transfers (B, C, W/C) (FIM): 3 Scootin Rollin Roll Left to Right (QC): 3 Supine to/from Sit: 3 Sit to/from Stand: 3 bed t/f WC(FIM only if WC use): 3 Sit to Lying (QC): 3 Lying to Sitting/Side of Bed(Q: 3 Sit to Stand (QC): 3 Chair/Onf-di-Fuwpz Xfer(QC): 3 Car Transfer (QC): 3 Gait Does the Patient Walk?: Yes Mode of Locomotion: Both Anticipated Mode of Locomotion: Walk Gait (FIM): 1 Distance (FIM): 1=up to 49 ft Walk 10 feet (QC): 4 Walk 50 ft with 2 Turns(QC): 88 Walk 150 ft (QC): 88 Walking 10ft/uneven surface-QC: 4 Distance: 25' x 3 Gait Level of Assist: 4 Gait Persons Needed: 1 Gait Assistive Device: FWW Comments/Gait Description antalgic, with minimal weight bearing through left LE due to pain Stairs Stairs (FIM): 1 #of Steps: 1 Level of Assist: 3 1 Step (curb) (QC): 3 4 Steps (QC): 88 Assistive Device: Walker 12 Steps (QC): 88 Balance Sitting Static: Normal Sitting Dynamic: Normal Standing Static: Fair Standing Dynamic: Fair Assessment/Needs 78 y.o. male, will benefit from skilled PT to address functional strength and mobility to improve current LOF to safely return to home at maximum LOF. Rehab Potential: Fair PT Short Term Goals Short Term Goals Time Frame: Jul 07, 2019 Transfers (B,C,W/C) (FIM): 4 Gait (FIM): 4 Distance (FIM): 3=150 ft Gait Distance Comment: 150' Gait Level of Assist: 4 Gait Assistive Device: FWW Stairs (FIM): 2 # of Steps: 4 Stairs Level of Assist: 4 PT Wildfire Prevention Specialist Goals Mcfp Goals PT Mcfp Goals Time Frame: Jul 21, 2019 Transfers (B,C,W/C) (FIM): 6 Sit to Lying (QC): 6 Lying-Sitting on Side/Bed(QC): 6 Sit to Stand (QC): 6 Rollin Roll Left to Right (QC): 6 Chair/Wss-eh-Nsmvr Xfer(QC): 6 Car Transfer (QC): 6 Does the Patient Walk: Yes Gait (FIM): 6 Gait distance (FIM): 3=150 ft Distance: 250' Walk 10 feet (QC): 6 Walk 10ft-Uneven Surface(QC): 6 Walk 50ft with 2 Turns (QC): 6 Walk 150 ft (QC): 6 Gait Level of Assist: 6 Gait Assistive Device: FWW Stairs (FIM): 6 # of Steps: 12 1 Step (curb) (QC): 6 4 Steps (QC): 6 12 Steps (QC): 6 Stairs Level Of Assist: 6 Picking up an Object (QC): 6 PT Plan Problem List Problem List: Activity Tolerance, Functional Strength, Safety, Balance, Gait, Transfer, Bed Mobility, ROM Treatment/Plan Treatment Plan: Continue Plan of Care Treatment Plan: Bed Mobility, Education, Functional Activity Tessie, Functional Strength, Group Therapy, Gait, Safety, Therapeutic Exercise, Transfers Treatment Duration: Jul 21, 2019 Frequency: At least 5 of 7 days/Wk (IRF) Estimated Hrs Per Day: 1.5 hours per day Patient and/or Family Agrees t: Yes Time/GCodes Time In: 900 Time Out: 915 Total Billed Treatment Time: 15 Total Billed Treatment 1 visit EVModC 15 min LUIS CHAPPELL PT Jun 23, 2019 11:09
--- NOTE | 2019-06-23 11:13 | Cardiology Progress Note ---
Cardiology SOAP Progress Note Subjective: No cardiac complaints. Sitting very comfortably on the chair. Objective: I&O/Vital Signs 06/23/19 06/23/19 06/23/19 09:15 10:00 10:06 Temp 98.1 Pulse 102 Resp 22 B/P (MAP) 109/67 (81) Pulse Ox 97 92 94 O2 Delivery Room Air Room Air Room Air Weight (Pounds): 179 Weight (Ounces): 10.0 Weight (Calculated Kilograms): 81.596599 Constitutional: No appears stated age; AAO x 3; No apparent distress, No PERRL; well-developed, well-nourished; No other Respiratory: No accessory muscle use, No respiratory distress, No chest tender, No chest expansion is symmetric; chest is bilaterally symmetric; No lungs clear to percussion; lungs clear to auscultation; No crackles, No rhonchi, No rales, No stridor, No wheezing, No pleural rub, No other Cardiovascular: regular rate-rhythm; No irregularly irregular, No extra beats, No parasternal heave is noted, No JVD, No edema, No bradycardia, No tachycardia, No point of maximal impulse, No cardiac thrills are palpable; S1 and S2; No gallop/S3, No gallop/S4, No diastolic murmur, No systolic murmur, No friction rub, No click, No other Gastrointestional: No tender; soft, round; No distended, No pulsatile mass, No organomegaly, No guarding, No rebound, No tenderness, No hernia, No mass; audible bowel sounds; No abnormal bowel sounds, No abdominal bruits, No spleenomegaly, No other Extremities: normal range of motion, non-tender, normal inspection; No pedal edema, No calf tenderness, No normal capillary refill, No pelvis stable, No calf tenderness, No inflammation, No pedal edema, No slow capillary refill, No swelling, No other, No abrasion, No clubbing, No cyanosis, No ecchymosis, No laceration; no lower extremity edema bilateral; No significant edema, No tenderness, No wound Neurologic/Psychiatric: no motor/sensory deficits, alert, normal mood/affect, oriented x 3 Skin: warm/dry A/P: Assessment/Dx: Admission Diagnosis Hip fracture Coronary artery disease Carotid stenosis ALL Plan: Left femur fracture, post surgical repair done on June 19, 2019. Continue to monitor Anemia, mild thrombocytopenia, save blood transfusion, managed by Dr. Perez Status post respiratory failure, better, responded to diuretics. Congestive heart failure, acute on chronic left ventricular systolic dysfunction, secondary to chemotherapy and coronary artery disease, ischemic and nonischemic cardiomyopathy, echocardiogram showed ejection fraction 25-30 percent, restarted on Coreg and Entresto. Monitor tolerance and response closely. May consider life vest for primary prevention of sudden cardiac . History of orthostatic dizziness and hypotension, near-syncope, no current syncopal episodes or dizziness reported. Coronary artery disease status post CABG x3 in 2004, cardiac catheterization in April 2014 which showed patent bypass grafts with small vessel disease distally mainly in the LAD system that was receiving retrograde collateral, treated conservatively. Cardiac catheterization was done on November 07, 2014 showing small vessel disease, patent MAHONEY to LAD, vein graft to the circumflex artery and vein graft to the right coronary artery, repeat cardiac catheterization was done in August 2016 showing patent MAHONEY to LAD, vein graft to the obtuse marginal branch with sluggish flow in the [place] circumflex artery, patent vein graft to the right coronary artery, the proximal [place] coronary arteries appear slightly worse with occlusion of the left main, the LAD and diagonal artery are getting collaterals from the right system. He has been asymptomatic. Continue to monitor. Mild bilateral carotid stenosis, ultrasound was done in March 2018. Continue to monitor History of esophageal spasm, EGD by Dr. Manzanares , reporting improvement. 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 Nettles, continue to monitor. 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 Nettles. Hypertension, controlled on current medication, continue to monitor Hyperlipidemia, continue to monitor lipids. Managed by Dr. Watts. Diabetes mellitus, managed and followed by primary care physician. History of atrial flutter status post ablation in 2004, currently in sinus rhythm. Continue to monitor Thank you for your consultation. Please call me if you have any questions. Bobby Crawford MD, FACP, FACC, FSCAI, FHRS, CCDS Interventional Cardiology Cardiac Electrophysiology Vascular Medicine and Endovascular Interventions Murphy CRAWFORD MD Jun 23, 2019 11:13
[2019-06-23] MEDS: SACUBITRIL/VALSARTAN 24/26 MG (ENTRESTO) TABLET PO SCH ×2 (11:26→22:22)
--- NOTE | 2019-06-23 11:27 | Progress Note ---
Standard Progress Note Progress Notes/Assess & Plan Date Seen by a Provider: Jun 23, 2019 Time Seen by a Provider: 11:23 Progress/Assessment & Plan 78-year-old male admitted with left intertrochanteric fracture following a fall, status post surgical fixation on 06/19/2019. Patient has history of ALL, status post chemotherapy with course A of hyper CVAD regimen complicated by cardiomyopathy, CHF as well as renal failure and further chemotherapy held. Patient went into complete remission with this and was treated with maintenance chemotherapy using POMP regimen 2 years and stopped in June 2017. He has been on surveillance without evidence of recurrence. Patient more alert and oriented this morning. Pain medications have been discontinued. Patient was moved to rehabilitation unit today morning. Hemoglobin 8.5 g/dL today. Maintain more than 8 g/dL and transfuse as needed. Platelets improving to 130,000 range today. Monitor serially. Continue postoperative care and rehabilitation as you're doing. Avoid heparin products and antiplatelet agents because of the risk of bleeding. Continue using SCDs for DVT prophylaxis. Dr. Costa is covering this weekend for any problems. JORGE CARDENAS Jun 23, 2019 11:27
[2019-06-23] MEDS: LACTOBACILLUS Acidoph/Bulgar 1 GM (LACTINEX) PACKET PO SCH ×3 (11:33→22:22)
[2019-06-23] MEDS: PIPERACILLIN/TAZO 4.5 GM/NS 100 ML IV NR ×4 (11:33→12:45)
[2019-06-23] MEDS: inSUlin ASPART (NovoLOG) 1 UNIT/0.01 ML (CHARGE PER UNIT) SC SCH ×3 (11:34→22:23)
--- NOTE | 2019-06-23 12:59 | Occupational Therapy Eval ---
OT Evaluation-General/PLF Medical Diagnosis Admission Date Jun 23, 2019 at 09:22 Medical Diagnosis: left femur fracture Onset Date: Jun 18, 2019 Therapy Diagnosis Therapy Diagnosis: Decreased self care skills Height/Weight Height (Feet): 5 Height (Inches): 11.00 Weight (Pounds): 179 Weight (Ounces): 10.0 Precautions Precautions/Isolations: Fall Prevention, Standard Precautions Weight Bear Status Weight Bearing Restriction: Weight Bearing/Tolerated Referral Physician: Mac Medical History Pertinent Medical History: Atrial Fib, Arthritis, CABG, CAD, COPD, DM, GERD, HTN, [place], Neuropathy, Renal Insufficiency Current History Pt had a fall resulting in left hip fracture. Reviewed History: Yes Social History Home: Single Level Current Living Status: Spouse Entry Into Home: Stairs Without Railing Steps Into Home: 2 ADL-Prior Level of Function Therapy Code Descriptions/Definitions Functional [place] Measure: 0=Not Assessed/NA 4=Minimal Assistance 1=Total Assistance 5=Supervision or Setup 2=Maximal Assistance 6=Modified [place] 3=Moderate Assistance 7=Complete [place] Therapy Quality Codes: 6 Independent with activity with or without an assistive device 5 Patient requires set up or clean up by helper. Patient completes activity by themselves 4 Supervision or touching assist (CGA). [place] provide cues , steadying assist 3 The helper provides less than half the effort to complete the activity 2 The helper provides more than half the effort to complete the activity 1 Dependent. The helper does all the effort to complete an activity 7 Patient refused to complete or attempt activity 9 The patient did not perform the activity before the current illness or injury 88 Not attempted due to Medical conditions or safety concerns Functional Abilities and Goals: Independent: Patient completed the activities by him/herself, with or without an assistive device, with no assistance from a helper. Needed Some Help: Patient needed partial assistance from another person to complete activities. Dependent: A helper completed the activities for the patient. Unknown: Not Applicable: ADL PLOF Comments Pt reports being independent with self care and mobility prior to hospitalization. Self Care: Independent Drive Self: Yes OT Current Status Subjective Pt sitting in chair, agrees to therapy. Pt reports 6/10 pain in left hip. Pt also states he is tired. Mental Status/Objective Patient Orientation: Person, Place Current Glasses/Contacts: Yes Hearing Aids: No Dentures/Partials: Yes (upper ) Hand Dominance: Right Upper Extremity ROM Grossly WFL Upper Extremity Coordination Intact Upper Extremity Sensation Intact per pt report Upper Extremity Strength Grossly 4/5 ADL-Treatment ADL-Current Pt declined shower at this time secondary to fatigue. Agrees to sponge bath. Upper body bathing completed with set up. Pt able to wash bilateral upper legs and can area. Assist to wash lower legs/feet and buttocks. Pt donned pullover shirt with min assist. Pt required assist to thread bilateral LE into pant legs. Sit to stand with mod assist. Pt leans back when standing and requires assist to correct. Pt then requires mod assist to pull pants up over hips. Total assist required to don socks. Grooming tasks completed while seated in chair. Pt combed hair with set up. Oral care completed with SBA. Pt demonstrates ability to perform transfer with mod assist using FWW. Assist to manage walker and cues for safety. Pt requests to sit in commons area after session. Transfer to w/c with mod assist. Pt sitting in commons area with needs met after session. Eating (FIM): 5 Grooming (FIM): 5 Oral Hygiene (QC): 4 Bathing (FIM): 3 Shower/Bathe Self (QC): 3 Upper Body Dressing (FIM): 4 Upper Body Dressing (QC): 3 Lower Body Dressing (FIM): 2 Lower Body Dressing (QC): 2 On/Off Footwear (QC): 1 Toilet/Commode Transfer (FIM): 3 Toilet Transfer (QC): 3 Shower Transfer (FIM): 0 Education OT Patient Education: Rehab process Teaching Recipient: Patient Teaching Methods: Discussion Response to Teaching: Verbalize Understanding OT Short Term Goals Short Term Goals Time Frame: Jul 07, 2019 Bathing(FIM): 4 Upper Body Dressing(FIM): 5 Lower Body Dressing(FIM): 4 Toileting(FIM): 4 Toilet/Commode Transfer(FIM): 4 Additional Short Term Goals: 1-Demonstrate ADL Tasks, 2-Verbalize Understanding, 3-ImproveStrength/Tessie 1=Demonstrate adherence to instructed precautions during ADL tasks. 2=Patient will verbalize/demonstrate understanding of assistive devices/modifications for ADL. 3=Patient will improve strength/tolerance for activity to enable patient to perform ADL's. OT Detention Goals Reformatory Attendant Goals Time Frame: Jul 21, 2019 Eating (FIM): 6 Eating (QC): 6 Groomin Oral Hygiene (QC): 6 Bathing(FIM): 5 Shower/Bathe Self (QC): 5 Upper Body Dressing(FIM): 6 Upper Body Dressing (QC): 6 Lower Body Dressing(FIM): 6 Lower Body Dressing (QC): 6 On/Off Footwear (QC): 6 Toileting(FIM): 6 Toileting Hygiene (QC): 6 Toilet/Commode Transfer(FIM): 6 Toilet/Commode Transfer (QC): 6 Shower Transfer(FIM): 5 Additional Goals: 1-Demonstrate ADL Tasks, 2-Verbalize Understanding, 3- ImproveStrength/Tessie 1=Demonstrate adherence to instructed precautions during ADL tasks. 2=Patient will verbalize/demonstrate understanding of assistive devices/modific ations for ADL. 3=Patient will improve strength/tolerance for activity to enable patient to perform ADL's. Goals established to promote increased functional independence and allow safe discharge home. OT Education/Plan Problem List/Assessment Assessment: Decreased Activ Tolerance, Decreased UE Strength, Dependent Transfers, Impaired Funct Balance, Impaired I ADL's, Impaired Self-Care Skills Pt to benefit from skilled OT intervention for ADL training, transfers, strengthening, and home safety education to increase level of independence and allow safe discharge home. Discharge Recommendations Plan/Recommendations: Continue POC Treatment Plan/Plan of Care Treatment,Training & Education: Yes Patient would benefit from OT for education, treatment and training to promote independence in ADL's, mobility, safety and/or upper extremity function for ADL's. Plan of Care: ADL Retraining, Functional Mobility, Group Exercise/Act as Ind, UE Funct Exercise/Act Treatment Duration: Jul 21, 2019 Frequency: At least 5 of 7 days/Wk (IRF) Estimated Hrs Per Day: 1.5 hours per day Rehab Potential: Fair Time/GCodes Start Time: 10:30 Stop Time: 11:30 Total Time Billed (hr/min): 60 Billed Treatment Time 1 visit, EVM(15minutes), ADLx3(45minutes) CHEYANNE CHACON OT Jun 23, 2019 12:59
--- NOTE | 2019-06-23 14:42 | ST Cognitive Linguistic Eval ---
Speech Evaluation-General Medical Diagnosis left femur fracture Onset Date: Jun 18, 2019 Therapy Diagnosis Therapy Diagnosis: Cognitive-communication Precautions Precautions: Fall Precautions/Isolations: Fall Prevention, Standard Precautions Referral Referring Physician: Dr. Watts Reason for Referral: Evaluation/Treatment Medical History Pertinent Medical History: Atrial Fib, Arthritis, CABG, CAD, COPD, DM, GERD, HTN, [place], Neuropathy, Renal Insufficiency A-Fib, Arthritis, CABG, CAD, GERD, COPD, HTN, DM, [place], Renal Insufficiency, Neuropathy Current History Left Femur Fracture Reviewed History: Yes Social History Home: Single Level Current Living Status: Spouse Speech PLF-Current Status Prior Level of Function The patient lives at home with his and was independent for most of his daily tasks. Subjective The patient was very pleasant and cooperative with the cognitive assessment. Language Eval: Auditory Comprehends Simple Yes/No Ques: Functional Indent/Objects Multiple [place]: Functional Ident/Pics in Multiple [place]: Functional Follows 1-Step Commands: Functional Follows Complex Directions: Mild Follows General Conversations: Functional Language Eval: Verbal Language Completes Spontaneous Greeting: Functional Produces Auto, Serial Info: Functional Imitates Simple Words/Phrases: Functional Word Finding: Mild Requests Basic Needs: Functional States Basic Personal Info: Functional Expresses Complex Ideas: Mild Objective Cognitive Domain Attention: WNL Memory: Moderate Problem Solving: Mild Executive Functions: Mild Visuospatial Skills: WNL Composite Severity Rating: Mild Clock Drawing Severity Rating: WNL Objective Formal/Standardized Tests [facility] Mental Status ([facility]) Results which falls in the dementia range of function Oral Motor/Speech Production Within Functional Limits Impression The patient is a pleasant 78 year old gentleman who was admitted to the ARU s/p fractured hip. The patient was given the SLUMS at bedside with results . His score indicates a range of dementia. The patient will receive skilled cognitive therapy with focus on memory, problem solving and safety awareness. Communication/Social Cognition Comprehension: 6 Expression: 6 Social Interaction: 7 Problem Solvin Memory: 4 Speech Patient Assess Expression of Ideas/Wants: Expression (4) Understanding Verbal Content: Understands (4) Brief Interview-Mental Status: Yes Repetition of Three Words: Three (3) Temporal Orientation: Year: Missed by 1 year (2) Temporal Orientation: Month: Accurate within 5 days(2) Temporal Orientation: Day: Correct (1) Recall : Wear to say "Sock": Yes,after cueing (1) Recall : Color: Yes, after cueing (1) Recall : Bed: No, could not recall (0) Memory/Recall Ability: Current season, That he or she is in a hsp/hsp unit Speech Short Term Goals Short Term Goals Short Term Goals 1) The patient will complete memory tasks with 90% or greater accuracy given minimal cues. 2) The patient will complete problem solving tasks with 90% or greater accuracy given minimal cues. 3) The patient will complete safety awareness tasks with 90% or greater accuracy given minimal cues. Speech Employee Placement Specialist Goals Employee Placement Specialist Goals The patient will improve cognitive function in order to return to his prior living situation safely. Speech-Plan Patient/Family Goals Patient/Family Goals: The patient plans on returning home with his post rehab. Treatment Plan Speech Therapy Treatment Plan: Continue Plan of Care The patient will receive skilled ST services. Treatment Duration: Jun 30, 2019 Frequency: 5 times per week Estimated Hrs Per Day: .5 hour per day Rehab Potential: Fair Barriers to Learning: Patient has dementia range of function Pt/Family Agrees to Plan: Yes Safety Risks/Education Teaching Recipient: Patient Teaching Methods: Discussion Response to Teaching: Verbalize Understanding Education Topics Provided: Safety within his room and communication of wants/needs Time Speech Therapy Time In: 14:15 Speech Therapy Time Out: 14:30 Total Billed Time: 15 Billed Treatment Time 1, CARMEN Strauss Jun 23, 2019 14:42
--- NOTE | 2019-06-23 14:43 | Therapy Group Daily Note ---
Therapy Daily Group Note Patient Education Topic Exercises, Other List Below (benefits of exercise, ARU practices and policies) Exercises LE Seated Exercise, Sit to/from Stand, UE Exercise Session Ratio (pt:therapist): 4:1 Goal of Session: Education on ARU Expectations, UE/LE Strengthing Goal Met for this Session: Yes Pt Benefit of Group: Increased Functional Strength, Socialization, Other Other/Notes Pt. participated in group PT session. Pt. was active participant, pt. is somewhat confused and needed guidance through all of the process Pt. came and went via w/c and required mod assist for TRFs. Pt. shared name, hometown and when asked his favorite fall activity pt. responded " cauliflower". Pts. were educated in ARU practices, requirements, scheduling etc. Education regarding benefits of exercise and activity as well as exercise they can do any time, ie in bed or seated etc. Pts read and demonstrated exercises from illustrations and instructions on cards and lead others in group exercise for U&L extremities. Scooting forward and sit to stand TRFs were focus of TRF education with each participant progressing through to stance with good technique. Pt. to room after with Mod assist TRF to bed, alarm insitu on bed, jeffery at hand all needs met Start Time: 13:00 Stop Time: 14:15 Total Billed Treatment Time: 75 Total Billed Treatment 1,GRP [employer] Jun 23, 2019 14:43
[2019-06-23 16:05] VITALS: BP 116/66
[2019-06-23] MEDS ORDERED: PIPERACILLIN/TAZOBACTAM (BULK) 4.5 GM in NS (IVPB) 100 ML IV SCH (17:00)
[2019-06-23] MEDS ORDERED: risperiDONE 1 MG (RisperDAL) TAB ONE (17:16)
[2019-06-23] MEDS ORDERED: hydrOXYzine (ATARAX) 10 MG TAB PO PRN (17:30)
[2019-06-23] MEDS ORDERED: hydrOXYzine (ATARAX) 10 MG TAB PO NR (17:30)
[2019-06-23] MEDS ORDERED: risperiDONE 1 MG (RisperDAL) TAB PO SCH ×2 (17:30→21:00)
[2019-06-23] MEDS ORDERED: HALOPERIDOL 2 MG (HALDOL) TABLET PO PRN (17:30)
[2019-06-23] MEDS ORDERED: HALOPERIDOL 5 MG/ML (HALDOL) AMP IM PRN (17:45)
[2019-06-23] MEDS: ACETAMINOPHEN 500 MG TAB (TYLENOL) PO PRN (17:49)
[2019-06-23] MEDS ORDERED: OLANZapine 5 MG ODT (ZyPREXA ZYDIS) PO PRN (18:00)
[2019-06-23] MEDS ORDERED: HALOPERIDOL 0.5 MG (HALDOL) TAB PO PRN (18:15)
[2019-06-23] MEDS: PIPERACILLIN/TAZOBACTAM (BULK) 4.5 GM in NS (IVPB) 100 ML IV SCH (18:32)
[2019-06-23] MEDS: RT-ADVAIR HFA 115/21 MCG PER PUFF IH SCH (19:19)
[2019-06-23] MEDS: RT-ALBUTEROL/IPRATROPIUM 3 ML (DUONEB) VIAL INH SCH (19:19)
[2019-06-23] MEDS ORDERED: OLANZapine 5 MG ODT (ZyPREXA ZYDIS) PO SCH (21:00)
[2019-06-23 22:00] VITALS: BP 118/68
[2019-06-23] MEDS: OLANZapine 5 MG ODT (ZyPREXA ZYDIS) PO SCH (22:21)
[2019-06-23] MEDS: MELATONIN 3 MG TABLET PO PRN (22:21)
[2019-06-23] MEDS: SENNA W/DOCUSATE (SENOKOT S) TABLET PO SCH (22:21)
[2019-06-23] MEDS: MONTELUKAST 10 MG (SINGULAIR) TAB PO SCH (22:22)
[2019-06-23] MEDS: CARVEDILOL 3.125 MG (COREG) TABLET PO SCH (22:22)
[2019-06-24] MEDS: PIPERACILLIN/TAZOBACTAM (BULK) 4.5 GM in NS (IVPB) 100 ML IV SCH ×3 (02:52→18:36)
[2019-06-24 05:30] VITALS: BP 117/72
[2019-06-24] MEDS ORDERED: MAGNESIUM 1 GM/100 ML IVPB 100 ML IV SCH (06:00)
[2019-06-24] MEDS: inSUlin ASPART (NovoLOG) 1 UNIT/0.01 ML (CHARGE PER UNIT) SC SCH ×4 (06:19→21:10)
[2019-06-24] MEDS: LACTOBACILLUS Acidoph/Bulgar 1 GM (LACTINEX) PACKET PO SCH ×4 (06:19→21:11)
[2019-06-24] MEDS: RT-ALBUTEROL/IPRATROPIUM 3 ML (DUONEB) VIAL INH SCH ×3 (06:25→19:08)
[2019-06-24] MEDS: RT-ADVAIR HFA 115/21 MCG PER PUFF IH SCH ×2 (06:26→19:08)
[2019-06-24 07:10] LABS: BASOPHILS % (AUTO) 0 % (0-10); EOSINOPHILS # (AUTO) 0.2 10^3/uL (0.0-0.3); EOSINOPHILS % (AUTO) 5 % (0-10); HEMATOCRIT 25 % (40-54); HEMOGLOBIN 8.4 G/DL (13.3-17.7); LYMPHOCYTES # (AUTO) 1.2 X 10^3 (1.0-4.0); LYMPHOCYTES % (AUTO) 27 % (12-44); MEAN CORPUSCULAR HEMOGLOBIN 32 PG (25-34); MEAN CORPUSCULAR HGB CONC 34 G/DL (32-36); MEAN CORPUSCULAR VOLUME 95 FL (80-99); MEAN PLATELET VOLUME 9.1 FL (7.4-10.4); MONOCYTES # (AUTO) 0.6 X 10^3 (0.0-1.0); MONOCYTES % (AUTO) 12 % (0-12); NEUTROPHILS # (AUTO) 2.5 X 10^3 (1.8-7.8); NEUTROPHILS % (AUTO) 56 % (42-75); PLATELET COUNT 132 10^3/uL (130-400); RED CELL DISTRIBUTION WIDTH 13.9 % (10.0-14.5); WHITE BLOOD COUNT 4.5 10^3/uL (4.3-11.0)
[2019-06-24 07:35] LABS: ALANINE AMINOTRANSFERASE 32 U/L (0-55); ALBUMIN 3.1 GM/DL (3.2-4.5); ALKALINE PHOSPHATASE 39 U/L (40-136); BILIRUBIN,TOTAL 1.1 MG/DL (0.1-1.0); BUN/CREATININE RATIO 21; CALCIUM 8.1 MG/DL (8.5-10.1); CARBON DIOXIDE 26 MMOL/L (21-32); CHLORIDE 106 MMOL/L (98-107); CREATININE SERUM 1.06 MG/DL (0.60-1.30); GFR ESTIMATED > 60; GLUCOSE 157 MG/DL (70-105); POTASSIUM 3.6 MMOL/L (3.6-5.0); SODIUM 142 MMOL/L (135-145); TOTAL PROTEIN 5.7 GM/DL (6.4-8.2)
--- NOTE | 2019-06-24 07:44 | NUR ---
magnesium protocol not administered d/t no magnesium lab draw ordered to check level.
--- NOTE | 2019-06-24 08:10 | Individualized Plan of Care ---
Individualized Plan of Care Rehab Nursing IPOC Order Admission Date Jun 23, 2019 at 09:22 Current Orders Orders Admission Order(Inpt,Obs,Sdc) (06/22/19 20:39) Vital Signs: Per Unit Policy ( 08,16,00 (06/22/19 20:39) Business Transformation Manager-Inpt Rehab Con (06/22/19 20:39) Rehab Nursing Orders-Ipoc (06/22/19 20:39) Physical Therapy Rehab Orders (06/22/19 20:39) Occupational Therapy Rehab Ord (06/22/19 20:39) Speech Therapy Rehab Orders (06/22/19 20:39) Intake & Output 06,14,22 (06/22/19 20:39) Precautions (Aru) (06/22/19 20:39) Weekly Weight (Lbs) WEEK (06/22/19 20:39) Rehab-Intensity Of Therapy (06/22/19 20:39) Cho 60g/M 3snack (16-2000 Alfred) (06/23/19 Breakfast) Initiate Admission Nursing Pro .admission (06/22/19 20:39) Initiate Admission Nursing Pro .admission (06/22/19 20:39) Code/Resuscitation (06/23/19 09:43) Accucheck Achs ACHS (06/23/19 09:43) Ambulate 08,12,20 (06/23/19 09:43) Incentive Spirometry (Nursing) Q2H (06/23/19 09:43) Initiate Admission Nursing Pro .admission (06/23/19 09:43) Initiate/Follow Protocol (06/23/19 09:43) Nursing Communication (Order) (06/23/19 09:43) Sequential Compression Device (06/23/19 09:43) General/Regular (06/23/19 Lunch) Alprazolam Tablet (Xanax Tablet) (06/23/19 09:45) Acetaminophen Tablet (Tylenol Tablet) (06/23/19 09:45) Albuterol/Ipra Inhalation Soln (Duoneb I (06/23/19 09:45) Calcium Carbonate Chew Tablet (Antacid C (06/23/19 09:45) Carvedilol Tablet (Coreg Tablet) (06/23/19 21:00) Docusate Sodium Capsule (Colace Capsule) (06/23/19 09:45) Fluticasone Nasal Joy (Flonase Nasal S (06/24/19 09:00) Fluticasone/Salmeterol Common (Advair 11 (06/23/19 20:00) Furosemide Injection (Lasix Injection) (06/24/19 09:00) Hydrocodone/Apap 5/325 Tablet (Lortab 5 (06/23/19 09:45) Lactobacillus/Bulgaricus Granu (Lactinex (06/23/19 11:00) Loperamide Tablet (Imodium Tablet) (06/23/19 09:45) Loratadine Tablet (Claritin Tablet) (06/24/19 09:00) Magnesium 1 Gm/100 Ml Ivpb (Magnesium Diaz (06/24/19 06:00) Melatonin Tablet (Melatonin Tablet) (06/23/19 09:45) Montelukast Tablet (Singulair Tablet) (06/23/19 21:00) Insulin Aspart (Novolog) (Novolog (Charg (06/23/19 11:00) Ondansetron Injection (Zofran Injectio (06/23/19 09:45) Ondansetron Oral Dissolve Tab (Zofran (06/23/19 09:45) Pantoprazole Tablet (Protonix Tablet) (06/24/19 09:00) Phenol Throat Joy (Chloraseptic Joy) (06/23/19 09:45) Piperacillin/Tazobactam (Bulk) (Zosyn In (06/23/19 17:00) Sacubitril/Valsartan 24/26 Mg (Entresto (06/23/19 10:15) Saline Nasal Joy ([place] Nasal Joy) (06/23/19 09:45) Senna S Tablet (Senokot S Tablet) (06/23/19 21:00) Sertraline Tablet (Zoloft Tablet) (06/24/19 09:00) Diphenhydramine Tablet (Benadryl Tablet) (06/23/19 09:45) Fentanyl Injection (Sublimaze Injection (06/23/19 09:45) Insulin Determir (Per Unit) (Levemir (Pe (06/23/19 21:00) Communication For Respiratory (06/23/19 09:43) Consult Cardiology (06/23/19 09:43) Consult Oncology/Hematology (06/23/19 09:43) Consult Orthopedic Surgery (06/23/19 09:43) Consult Pulmonology (06/23/19 09:43) Incentive Spirometry Initial (06/23/19 09:43) Mdi Treatment (06/23/19 09:43) Rt Request For Service (06/23/19 09:43) Request Pt Additional Orders (06/23/19 09:43) Svn Small Volume Nebulizer (06/23/19 09:43) Mdi Treatment (06/23/19 09:43) Incentive Spirometry (Nursing) Q2H (06/23/19 09:43) Fluticasone/Salmeterol Common (Advair 11 (06/23/19 09:51) Piperacillin/Tazobactam (Bulk) (Zosyn In (06/23/19 10:23) Weight Bearing Status (06/23/19 10:40) Ambulate 08,12,20 (06/23/19 11:23) Sequential Compression Device .once (06/23/19 11:23) Dvt/Vte Risk - Notifiy Physici .ONCE (06/23/19 11:23) Patient Visit (06/23/19 ) Pt Eval Moderate Complexity (06/23/19 ) Patient Visit (06/23/19 ) Functional Activities, Ea 15 (06/23/19 ) Gait Training, Ea 15 Min (06/23/19 ) Patient Visit (06/23/19 ) Therapeutic, Group (06/23/19 ) Albuterol/Ipra Inhalation Soln (Duoneb I (06/23/19 21:00) Svn Small Volume Nebulizer (06/23/19 15:19) Patient Visit (06/23/19 ) Speech Sound Lang Comp (06/23/19 ) Piperacillin/Tazobactam (Bulk) (Zosyn In (06/23/19 19:30) Risperidone Tablet (Risperdal Tablet) (06/23/19 17:30) Risperidone Tablet (Risperdal Tablet) (06/23/19 17:16) Haloperidol Tablet (Haldol Tablet) (06/23/19 17:30) Olanzapine Orally Dissolve Tab (Zyprexa (06/23/19 21:00) Hydroxyzine Oral (Atarax Tablet) (06/23/19 17:30) Hydroxyzine Oral (Atarax Tablet) (06/23/19 17:30) Olanzapine Orally Dissolve Tab (Zyprexa (06/23/19 21:00) Haloperidol Injection (Haldol Injectio (06/23/19 17:45) Cbc With Automated Diff (06/24/19 06:00) Comprehensive Metabolic Panel (06/24/19 06:00) Olanzapine Orally Dissolve Tab (Zyprexa (06/23/19 18:00) Haloperidol Tablet (Haldol Tablet) (06/23/19 18:15) Bisacodyl Suppository (Dulcolax Supposit (06/24/19 08:14) Bisacodyl Suppository (Dulcolax Supposit (06/25/19 09:00) Patient Visit (06/24/19 ) Exercise Therap, Ea 15 Min (06/24/19 ) Gait Training, Ea 15 Min (06/24/19 ) Furosemide Tablet (Lasix Tablet) (06/25/19 09:00) Olanzapine Orally Dissolve Tab (Zyprexa (06/25/19 21:00) Cefdinir Capsule (Omnicef Capsule) (06/25/19 21:00) Cbc With Automated Diff (06/26/19 06:00) Comprehensive Metabolic Panel (06/26/19 06:00) Rehab Nursing Orders: Ongoing Assess. of Cognitive Status, Ongoing Assess. of Function Status, Bladder Training, Bowel Management, Disease Management & Educaiton, DVT Prophylaxis, Fall Prevention, Fluid/Electrolyte/Nutrition Mgmt, Infection Prevention, Medication Management & Education, Management of Risks & Complications, Nutrition Management, Pain Management, Patient/Family Support, Safety Management Intensity of Therapy to be met Patient to be seen: Min.3h per day/5 of 7d PT IPOC Problem List: Activity Tolerance, Functional Strength, Safety, Balance, Gait, Transfer, Bed Mobility, ROM Treatment Plan: Continue Plan of Care Bed Mobility, Education, Functional Activity Tessie, Functional Strength, Group Therapy, Gait, Safety, Therapeutic Exercise, Transfers Treatment Duration: Jul 21, 2019 Frequency: At least 5 of 7 days/Wk (IRF) Estimated Hrs Per Day: 1.5 hours per day OT IPOC Problems: Decreased Activ Tolerance, Decreased UE Strength, Dependent Transfers, Impaired Funct Balance, Impaired I ADL's, Impaired Self-Care Skills OT Treatment, Training and Edu: Yes OT Problems Pt to benefit from skilled OT intervention for ADL training, transfers, strengthening, and home safety education to increase level of independence and allow safe discharge home. Plan of Care: ADL Retraining, Functional Mobility, Group Exercise/Act as Ind, UE Funct Exercise/Act Treatment Duration: Jul 21, 2019 Frequency: At least 5 of 7 days/Wk (IRF) Estimated Hrs Per Day: 1.5 hours per day [facility] Speech Therapy Treatment Plan: Continue Plan of Care Treatment Duration: Jun 30, 2019 Frequency: 5 times per week Estimated Hrs Per Day: .5 hour per day Business Transformation Manager/Case Mgmt Business Transformation Manager/Case Managemen: Discharge Planning Dietitian/Correspondence School Teacher Dietitian/Correspondence School Teacher to monitor nutritional status and make changes and/or recommendations as needed and work with speech pathology on dietary upgrades as the occur. Physician IP Medical Issues being managed closely and that require the 24 hour availability of a physician: Recent sepsis and pulmonary edema and decreased systolic function requires close monitoring and IV abx and nebs Brief Synthesis of Preadmission Screen, Post-Admission Evaluation, and Therapy Evaluations: PT will focus on regaining ambulatory skills with use of walker OT will focus on regaining of ADL independence Medical Prognosis: Good Anticipated Length of Stay: 12 days ADALBERTO ARENAS DO Jun 24, 2019 08:10
[2019-06-24] MEDS ORDERED: BISACODYL 10 MG SUPP (DULCOLAX) PR NR (08:14)
[2019-06-24 08:38] VITALS: BP 105/62
[2019-06-24] MEDS: SENNA W/DOCUSATE (SENOKOT S) TABLET PO SCH ×2 (08:39→21:11)
[2019-06-24] MEDS: SACUBITRIL/VALSARTAN 24/26 MG (ENTRESTO) TABLET PO SCH ×2 (08:39→21:11)
[2019-06-24] MEDS: SERTRALINE 100 MG (ZOLOFT) TAB PO SCH (08:39)
[2019-06-24] MEDS: PANTOPRAZOLE 40 MG (PROTONIX) TAB PO SCH (08:39)
[2019-06-24] MEDS: LORATADINE (CLARITIN) 10 MG TAB PO SCH (08:39)
[2019-06-24] MEDS: FLUTICASONE NASAL SPRAY (FLONASE) 16 GM BTL NS SCH (08:42)
--- NOTE | 2019-06-24 08:59 | Progress Note - Ortho ---
Progress Note Subjective Date of Exam 06/24/19 Chief Complaint 5 days postop long TFN left hip for an intertrochanteric fracture HPI/Events since last exam The patient is now in rehabilitation and has no complaints Review of Systems Reviewed and no additions or changes Allergies: Coded Allergies: No Known Drug Allergies (Verified , 09/19/08) Home Meds Active Scripts Albuterol Sulfate (Albuterol Sulfate) 2.5 Mg/3 Ml Vial.neb, 2.5 MG INH TID, #60 EA Prov:ADALBERTO ARENAS DO 10/19/18 L. Acidophilus/Bulgaricus (Floranex Granules Packet) 1 Each Gran.pack, 1 GM PO ACHS, #60 EA Prov:ADALBERTO ARENAS DO 10/19/18 Pantoprazole Sodium (Pantoprazole Sodium) 40 Mg Tablet.dr, 40 MG PO DAILY, #30 TAB Prov:ADALBERTO ARENAS DO 10/19/18 Fluticasone Propionate (Fluticasone Propionate) 16 Gm [place].susp, 2 SPRAY NS DAILY, #1 SPRAY Prov:ADALBERTO ARENAS DO 10/19/18 Montelukast Sodium (Montelukast Sodium) 10 Mg Tablet, 10 MG PO HS, #30 TAB Prov:ADALBERTO ARENAS DO 10/19/18 Loratadine (Loratadine) 10 Mg Tablet, 10 MG PO DAILY, #30 TAB Prov:ADALBERTO ARENAS DO 10/19/18 Reported Medications Dextrose (Glucose) 4 Gm Tab.chew, 4 GM PO UD PRN for BS<120, TAB 02/24/19 Insulin Glargine,Hum.rec.anlog (Lantus Solostar) 100 Unit/1 Ml Insuln.pen, 15-20 UNITS SC HS, EA 02/24/19 Atorvastatin Calcium (Lipitor) 10 Mg Tablet, 10 MG PO DAILY, TAB 10/17/18 Aspirin (Aspirin EC) 81 Mg Tablet.dr, 81 MG PO DAILY, TAB 10/17/18 Galantamine HBr (Galantamine HBr) 8 Mg Tablet, 4 MG PO BID, TAB TAKES 1/2 (8MG) TABLET 10/17/18 Sacubitril/Valsartan (Entresto 24 mg-26 mg Tablet) 1 Each Tablet, 1 TAB PO BID, TAB 10/17/18 Metformin HCl (Metformin HCl) 500 Mg Tablet, 500 MG PO DAILY, TAB 10/17/18 Fluticasone/Salmeterol (Advair 250-50 Diskus) 1 Each Blst.w.dev, 1 PUFF IH BID, INHALER 08/28/16 Sertraline HCl (Sertraline HCl) 100 Mg Tablet, 100 MG PO DAILY, TAB 08/28/16 Carvedilol (Carvedilol) 3.125 Mg Tablet, 3.125 MG PO BID, TAB 08/28/16 Dronabinol (Dronabinol) 2.5 Mg Capsule, 2.5 MG PO BID, CAP 08/28/16 Methylphenidate HCl (Ritalin) 5 Mg Tablet, 5 MG PO BID, TAB 07/22/15 Insulin Lispro (Humalog Kwikpen) 100 Unit/1 Ml Insuln.pen, 15-25 UNITS SQ AC, EA 07/22/15 Objective Exam Constitutional: [] HEENT: [] Neck: [] Cardiovascular: [] Respiratory: [] Gastrointestinal: [] Genitourinary: [] Skin: [] Back/Spine: [] Extremities: [Has a little serous drainage from a left upper wound. No redness. Continues with bruising left hip. No calf tenderness negative Homans. Neurovascularly intact left lower extremity. Good strength on dorsiflexion and plantar flexes foot and ankle.] Neurologic: [] Psychiatric: [] Hematologic/lymphatic/immunologic: [] Vital Signs Vital Signs Date Time Temp Pulse Resp B/P (MAP) Pulse Ox O2 Delivery O2 Flow Rate FiO2 06/24/19 08:38 74 16 105/62 (76) 96 Room Air 06/24/19 06:33 Room Air 06/24/19 06:26 92 Room Air 06/24/19 05:30 97.6 74 14 117/72 (87) 95 Room Air 06/23/19 22:00 101 118/68 (85) 06/23/19 21:00 Room Air 06/23/19 19:26 95 Room Air 06/23/19 19:19 91 Room Air 06/23/19 16:05 99.9 93 16 116/66 (83) 93 Room Air 06/23/19 15:22 93 Room Air 06/23/19 10:06 94 Room Air 06/23/19 10:00 92 Room Air 06/23/19 09:15 98.1 102 22 109/67 (81) 97 Room Air 06/23/19 09:15 Room Air I & O 06/24/19 06:59 Intake Total 1110 ml Output Total 300 ml Balance 810 ml Lab Results Laboratory Tests 06/23/19 16:03: Glucometer 253H 06/23/19 20:51: Glucometer 293H 06/24/19 05:53: Glucometer 185H 06/24/19 07:00: White Blood Count 4.5, Red Blood Count 2.64L, Hemoglobin 8.4L, Hematocrit 25L, Mean Corpuscular Volume 95, Mean Corpuscular Hemoglobin 32, Mean Corpuscular Hemoglobin Concent 34, Red Cell Distribution Width 13.9, Platelet Count 132, Mean Platelet Volume 9.1, Neutrophils (%) (Auto) 56, Lymphocytes (%) (Auto) 27, Monocytes (%) (Auto) 12, Eosinophils (%) (Auto) 5, Basophils (%) (Auto) 0, Neutrophils # (Auto) 2.5, Lymphocytes # (Auto) 1.2, Monocytes # (Auto) 0.6, Eosinophils # (Auto) 0.2, Basophils # (Auto) 0.0, Sodium Level 142, Potassium Level 3.6, Chloride Level 106, Carbon Dioxide Level 26, Anion Gap 10, Blood Urea Nitrogen 22H, Creatinine 1.06, Estimat Glomerular Filtration Rate > 60, BUN/Creatinine Ratio 21, Glucose Level 157H, Calcium Level 8.1L, Corrected Calcium 8.8, Total Bilirubin 1.1H, Aspartate Amino Transf (AST/SGOT) 35H, Alanine Aminotransferase (ALT/SGPT) 32, Alkaline Phosphatase 39L, Total Protein 5.7L, Albumin 3.1L Assessment and Plan Assessment Doing well 5 days postop long TFN left hip for intertrochanteric fracture Problem List No change Plan Continue with physical therapy, walker ambulation weightbearing as tolerated on the left Final Diagonsis 5 days status post long TFN left hip for two-part intertrochanteric fracture Level of the visit: Level 3 Clinical Quality Measures DVT/VTE Risk/Contraindication: Risk Factor Score Per Nursin RFS Level Per Nursing on Admit: 4+=Very High DAX YOUNG MD Jun 24, 2019 08:59
[2019-06-24] MEDS ORDERED: FUROSEMIDE 40 MG/4 ML INJ (LASIX) IVP SCH (09:00)
[2019-06-24 10:06] VITALS: BP 94/54
[2019-06-24] MEDS: CARVEDILOL 3.125 MG (COREG) TABLET PO SCH ×3 (10:16→21:11)
--- NOTE | 2019-06-24 11:59 | NUR ---
Dr. Crawford here to see patient. Informed of BP 94/54 after giving Entresto and Lasix. Ok to give Coreg.
--- NOTE | 2019-06-24 12:11 | Cardiology Progress Note ---
Cardiology SOAP Progress Note Subjective: Improved shortness of breath. However the patient still feels short of breath. Objective: I&O/Vital Signs 06/24/19 06/24/19 06/24/19 06/24/19 05:30 06:26 06:33 08:38 Temp 97.6 Pulse 74 74 Resp 14 16 B/P (MAP) 117/72 (87) 105/62 (76) Pulse Ox 95 92 96 O2 Delivery Room Air Room Air Room Air Room Air 06/24/19 06/24/19 09:59 10:06 Pulse 78 B/P (MAP) 94/54 (67) O2 Delivery Room Air 06/24/19 00:00 Intake Total 790 ml Output Total 300 ml Balance 490 ml Weight (Pounds): 179 Weight (Ounces): 10.0 Weight (Calculated Kilograms): 81.481227 Constitutional: No appears stated age; AAO x 3; No apparent distress, No PERRL; well-developed, well-nourished; No other Respiratory: No accessory muscle use, No respiratory distress, No chest tender, No chest expansion is symmetric; chest is bilaterally symmetric; No lungs clear to percussion; lungs clear to auscultation; No crackles, No rhonchi, No rales, No stridor, No wheezing, No pleural rub, No other Cardiovascular: regular rate-rhythm; No irregularly irregular, No extra beats, No parasternal heave is noted, No JVD, No edema, No bradycardia, No tachycardia, No point of maximal impulse, No cardiac thrills are palpable; S1 and S2; No gallop/S3, No gallop/S4, No diastolic murmur, No systolic murmur, No friction rub, No click, No other Gastrointestional: No tender; soft, round; No distended, No pulsatile mass, No organomegaly, No guarding, No rebound, No tenderness, No hernia, No mass; audible bowel sounds; No abnormal bowel sounds, No abdominal bruits, No spleenomegaly, No other Extremities: normal range of motion, non-tender, normal inspection; No pedal edema, No calf tenderness, No normal capillary refill, No pelvis stable, No calf tenderness, No inflammation, No pedal edema, No slow capillary refill, No swelling, No other, No abrasion, No clubbing, No cyanosis, No ecchymosis, No laceration; no lower extremity edema bilateral; No significant edema, No tenderness, No wound Neurologic/Psychiatric: no motor/sensory deficits, alert, normal mood/affect, oriented x 3 Skin: warm/dry Results/Procedures: Labs Laboratory Tests 06/23/19 16:03: Glucometer 253H 06/23/19 20:51: Glucometer 293H 06/24/19 05:53: Glucometer 185H 06/24/19 07:00: White Blood Count 4.5, Red Blood Count 2.64L, Hemoglobin 8.4L, Hematocrit 25L, Mean Corpuscular Volume 95, Mean Corpuscular Hemoglobin 32, Mean Corpuscular Hemoglobin Concent 34, Red Cell Distribution Width 13.9, Platelet Count 132, Mean Platelet Volume 9.1, Neutrophils (%) (Auto) 56, Lymphocytes (%) (Auto) 27, Monocytes (%) (Auto) 12, Eosinophils (%) (Auto) 5, Basophils (%) (Auto) 0, Neutrophils # (Auto) 2.5, Lymphocytes # (Auto) 1.2, Monocytes # (Auto) 0.6, Eosinophils # (Auto) 0.2, Basophils # (Auto) 0.0, Sodium Level 142, Potassium Level 3.6, Chloride Level 106, Carbon Dioxide Level 26, Anion Gap 10, Blood Urea Nitrogen 22H, Creatinine 1.06, Estimat Glomerular Filtration Rate > 60, BUN/Creatinine Ratio 21, Glucose Level 157H, Calcium Level 8.1L, Corrected Calcium 8.8, Total Bilirubin 1.1H, Aspartate Amino Transf (AST/SGOT) 35H, Alanine Aminotransferase (ALT/SGPT) 32, Alkaline Phosphatase 39L, Total Protein 5.7L, Albumin 3.1L 06/24/19 11:38: Glucometer 192H A/P: Assessment/Dx: Hip fracture Coronary artery disease Carotid stenosis ALL Ischemic cardiomyopathy Plan: Left femur fracture, post surgical repair done on June 19, 2019. Undergoing rehabilitation. Continue to monitor Anemia, mild thrombocytopenia, save blood transfusion, managed by Dr. Perez Status post respiratory failure, better, responded to diuretics. Congestive heart failure, acute on chronic left ventricular systolic dysfunction, secondary to chemotherapy and coronary artery disease, ischemic and nonischemic cardiomyopathy, echocardiogram showed ejection fraction 25-30 perce nt, continue on Coreg and Entresto. Monitor tolerance and response closely. May consider life vest for primary prevention of sudden cardiac . I discussed with the patient today. Defer to Dr. Foreman and Dr. Watts for Wednesday. History of orthostatic dizziness and hypotension, near-syncope, no current syncopal episodes or dizziness reported. Coronary artery disease status post CABG x3 in 2004, cardiac catheterization in April 2014 which showed patent bypass grafts with small vessel disease distally mainly in the LAD system that was receiving retrograde collateral, treated co nservatively. Cardiac catheterization was done on November 07, 2014 showing small vessel disease, patent MAHONEY to LAD, vein graft to the circumflex artery and vein graft to the right coronary artery, repeat cardiac catheterization was done in August 2016 showing patent MAHONEY to LAD, vein graft to the obtuse marginal branch with sluggish flow in the [place] circumflex artery, patent vein graft to the right coronary artery, the proximal [place] coronary arteries appear slightly worse with occlusion of the left main, the LAD and diagonal artery are getting collaterals from the right system. He has been asymptomatic. Continue to monitor. Mild bilateral carotid stenosis, ultrasound was done in March 2018. Continue to monitor History of esophageal spasm, EGD by Dr. Manzanares , reporting improvement. 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 Nettles, continue to monitor. 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 Nettles. Hypertension, controlled on current medication, continue to monitor Hyperlipidemia, continue to monitor lipids. Managed by Dr. Watts. Diabetes mellitus, managed and followed by primary care physician. History of atrial flutter status post ablation in 2004, currently in sinus rhythm. Continue to monitor Thank you for your consultation. Please call me if you have any questions. Bobby Crawford MD, FACP, FACC, FSCAI, FHRS, CCDS Interventional Cardiology Cardiac Electrophysiology Vascular Medicine and Endovascular Interventions Murphy CRAWFORD MD Jun 24, 2019 12:11
--- NOTE | 2019-06-24 12:14 | Physical Therapy Daily Note ---
PT Daily Note-Current Subjective Pt in good spirits. Initially tries to refuse therapy but agrees to participate after therapist explains the importance of activity. Transfers Therapy Code Descriptions/Definitions Functional [place]borne Measure: 0=Not Assessed/NA 4=Minimal Assistance 1=Total Assistance 5=Supervision or Setup 2=Maximal Assistance 6=Modified [place] 3=Moderate Assistance 7=Complete [place]borne Therapy Quality Codes: 6 Independent with activity with or without an assistive device 5 Patient requires set up or clean up by helper. Patient completes activity by themselves 4 Supervision or touching assist (CGA). [place] provide cues , steadying assist 3 The helper provides less than half the effort to complete the activity 2 The helper provides more than half the effort to complete the activity 1 Dependent. The helper does all the effort to complete an activity 7 Patient refused to complete or attempt activity 9 The patient did not perform the activity before the current illness or injury 88 Not attempted due to Medical conditions or safety concerns Sit to/from Stand: 4 Able to stand with CGA and verbal cues for safety. Weight Bearing Right Lower Extremity: Right Weight Bearing/Tolerated Left Lower Extremity: Left Weight Bearing/Tolerated Gait Training Gait (FIM): 2 Gait Assistive Device: FWW Ambulate in parallel bars 5 rounds x 4 trials CGA with intermittent cues for sequence of (L) leg first. Pt reports he feels much more secure in the parallel bars as compared to a walker. Exercises Seated Therapy Exercises: Ankle pumps, Long arc quads, Hip flexion, Kicking activity, Hip abd/add Seated Reps: 15 Assessment Pt showed good stability while standing in parallel bars. He reports it is primarily due to confidence as the bars felt more secure than the walker. Pt progressing and will benefit from continued therapy. PT Short Term Goals Short Term Goals Time Frame: Jul 07, 2019 Gait (FIM): 4 Distance (FIM): 3=150 ft Gait Distance Comment: 150' Gait Level of Assist: 4 Gait Assistive Device: FWW Stairs (FIM): 2 # of Steps: 4 Stairs Level of Assist: 4 PT Alf Goals Alf Goals PT Golf Sales Manager Goals Time Frame: Jul 21, 2019 Transfers (B,C,W/C) (FIM): 6 Sit to Lying (QC): 6 Lying-Sitting on Side/Bed(QC): 6 Sit to Stand (QC): 6 Rollin Roll Left to Right (QC): 6 Chair/Zbb-gu-Wlohm Xfer(QC): 6 Car Transfer (QC): 6 Does the Patient Walk: Yes Gait (FIM): 6 Gait distance (FIM): 3=150 ft Distance: 250' Walk 10 feet (QC): 6 Walk 10ft-Uneven Surface(QC): 6 Walk 50ft with 2 Turns (QC): 6 Walk 150 ft (QC): 6 Gait Level of Assist: 6 Gait Assistive Device: FWW Stairs (FIM): 6 # of Steps: 12 1 Step (curb) (QC): 6 4 Steps (QC): 6 12 Steps (QC): 6 Stairs Level Of Assist: 6 Picking up an Object (QC): 6 PT Plan Treatment/Plan Treatment Plan: Continue Plan of Care (15) Treatment Plan: Bed Mobility, Education, Functional Activity Tessie, Functional Strength, Group Therapy, Gait, Safety, Therapeutic Exercise, Transfers Treatment Duration: Jul 21, 2019 Frequency: At least 5 of 7 days/Wk (IRF) Estimated Hrs Per Day: 1.5 hours per day Patient and/or Family Agrees t: Yes Time/GCodes Time In: 1130 Time Out: 1200 Total Billed Treatment Time: 30 Total Billed Treatment visit, gait 15 min, ex 15 min DAKSHA PARKER PT Jun 24, 2019 12:14
--- NOTE | 2019-06-24 13:40 | NUR ---
Incision X2 to left hip. Cleansed with alcohol pads and covered with 2 Large BAND-AIDS. Incisions are well approximated with stapes intact. Minimal amount of yellow drainage noted.
--- NOTE | 2019-06-24 15:01 | NUR ---
VANE Mag Sulfate replacement protocol per Dr. Watts... And OK to switch to PO Lasix per Dr. Crawford.
--- NOTE | 2019-06-24 15:40 | PM&R Progress Note ---
Subjective HPI/CC On Admission Date Seen by Provider: Jun 24, 2019 Time Seen by Provider: 12:30 CC: Debility following left hip fracture HPI: This is a 78yoWM clinic pt of [facility] with sever comorbidities who had an uncomplicated left hip fracture repair by Dr. Richards on Wednesday after sustaining a fall at his daughters office after missing a step on the stairs an subsequently was repaired but had some flash pulmonary edema requiring transfer to the ICU and lactic acid elevation with acute sinusitis requiring Zosyn antibiotics empirically along with IV Lasix with close monitoring and severe delirium requiring a live sitter since he was such a fall risk and received two units of blood with good improvement in Hgb of 7.5 and decreased platelet counts so Dr. Alvarado, Dr Nettles, Dr. Foreman and Dr. Richards agreed with plan to transfer to ICU and he was improving significantly so and delirium was improved to the point to where he was able to DC to inpatient rehab and continue his intensive therapies which may require 15/7 intensity because of the delirium but will try our best to initiate. Weight bearing is tolerated per Dr. Richards and we will monitor bowel function, and bladder function and monitor labs in the meantime. 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 Subjective/Events-last exam Had a bowel movement after suppository Improved overall LifeVest was discussed by cardiology due to decreased systolic function could pose a risk for arrhythmia Oral Lasix will likely be changed from IV Lasix Blood sugars reviewed Conferred with RN Reviewed therapy notes Check meds and labs Nebulizer treatments are tolerated Pain is controlled Delirium much improved Review of Systems General: Fatigue Pulmonary: Cough Musculoskeletal: leg pain Objective Exam Vital Signs Vital Signs Date Time Temp Pulse Resp B/P (MAP) Pulse Ox O2 Delivery O2 Flow Rate FiO2 06/25/19 14:13 94 Room Air 06/25/19 05:45 98.8 84 18 118/67 (84) Capillary Refill : General Appearance: No Apparent Distress, WD/WN, Chronically ill, Thin HEENT: PERRL/EOMI, Normal ENT Inspection, Pharynx Normal, Moist Mucous Membranes Neck: Full Range of Motion, Normal Inspection, Non Tender, Supple Respiratory: Chest Non Tender, Lungs Clear, Normal Breath Sounds, No Accessory Muscle Use, No Respiratory Distress Cardiovascular: Regular Rate, Rhythm, No Edema, No Gallop, No JVD, No Murmur Gastrointestinal: Normal Bowel Sounds, No Organomegaly, No Pulsatile Mass, Non Tender, Soft Back: Normal Inspection, No CVA Tenderness, No Vertebral Tenderness Extremity: Normal Capillary Refill, Normal Inspection, Normal Range of Motion (except left leg), Non Tender, No Calf Tenderness, No Pedal Edema Neurologic/Psychiatric: Alert, Oriented x3, No Motor/Sensory Deficits, Normal 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 FIM Transfers Therapy Code Descriptions/Definitions Functional [place] Measure: 0=Not Assessed/NA 4=Minimal Assistance 1=Total Assistance 5=Supervision or Setup 2=Maximal Assistance 6=Modified [place] 3=Moderate Assistance 7=Complete [place] Therapy Quality Codes: 6 Independent with activity with or without an assistive device 5 Patient requires set up or clean up by helper. Patient completes activity by themselves 4 Supervision or touching assist (CGA). [place] provide cues , steadying assist 3 The helper provides less than half the effort to complete the activity 2 The helper provides more than half the effort to complete the activity 1 Dependent. The helper does all the effort to complete an activity 7 Patient refused to complete or attempt activity 9 The patient did not perform the activity before the current illness or injury 88 Not attempted due to Medical conditions or safety concerns Transfers (B, C, W/C) (FIM): 3 Scootin Rollin Roll Left to Right (QC): 3 Supine to/from Sit: 3 Sit to/from Stand: 4 Sit to Lying (QC): 3 Sit to Stand (QC): 3 Chair/Wsa-ed-Bpbmv Xfer(QC): 3 Bed to/from Chair: 3 Car Transfer (QC): 3 Gait Training Does the Patient Walk?: Yes Gait (FIM): 2 Distance (FIM): 1=up to 49 ft Distance: 50 ft x 4 Walk 10 feet (QC): 4 Walk 50 ft with 2 Turns(QC): 88 Walk 150 ft (QC): 88 Walking 10ft/uneven surface-QC: 4 Gait Level of Assist: 4 Gait Persons Needed: 1 Gait Assistive Device: FWW Stair Training Stairs (FIM): 1 #of Steps: 1 1 Step (curb) (QC): 3 4 Steps (QC): 88 12 Steps (QC): 88 Level of Assist: 3 Mental Status/Objective Comprehension: 6 Expression: 6 Social Interaction: 7 Problem Solvin Memory: 4 ADL-Treatment Feedin Groomin Oral Hygiene (QC): 4 Bathin Shower/Bathe Self (QC): 3 Upper Extremity Dressin Upper Body Dressing (QC): 3 Lower Extremity Dressin Lower Body Dressing (QC): 2 On/Off Footwear (QC): 1 Toilet/Commode Transfer: 3 Toilet Transfer (QC): 3 Shower: 0 Assessment/Plan Assessment and Plan Assess & Plan/Chief Complaint Assessment: Left femur fracture s/p fall after missed 1 step on stairs s/p repair POD # 6 Acute and severe delirium with severe insomnia x 5 days now resolved with Zyprexa at night Sepsis due to URI and acute sinusitis and bronchitis placed on Zosyn Flash pulmonary edema s/p Lasix IV may need to change to PO CHF EF 30% decreased from 50% on ECHO may need Life vest vs defib s/p post op anemia s/p 2 units of blood in ICU COPD on Singulair and Claritin and ICS prn restarted on home meds and Nebs 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 diff history h/o ARF while at [facility] for ALL induction PUD Remission for acute lymphocytic leukemia for [address] Perez Ischemic cardiomyopathy with improvement in ejection fraction from 30 percent to 55 percent due to Entresto management but now decreased since acute illness so may need life vest and defib Plan: IRF DVT PPx per Dr Nettles Monitor for ACS and CHF Appreciate Dr Foreman and Dr Richards and Dr Alvarado and Dr Nettles Change to PO abx soon (1) Fracture of femur, intertrochanteric, left, closed Status: Acute Qualifiers: Encounter type: subsequent encounter (2) Non-ST elevation myocardial infarction (NSTEMI) Status: Acute (3) Severe anemia Status: Acute (4) Cough Status: Acute (5) Fever Status: Resolved Resolution Date/Time: 10/18/18 @ 12:40 (6) Shortness of breath Status: Resolved Resolution Date/Time: 10/18/18 @ 12:40 (7) Dehydration, moderate Status: Resolved Resolution Date/Time: 10/18/18 @ 12:41 (8) CAD (coronary artery disease) Status: Chronic Qualifiers: Coronary Disease-Associated Artery/Lesion type: [place] artery [place] vs. transplanted heart: [place] heart Associated angina: without angina Qualified Codes: I25.10 - Atherosclerotic heart disease of [place] coronary artery without angina pectoris (9) ALL (acute lymphocytic leukemia) Status: Chronic (10) Neuropathy Status: Chronic (11) Renal insufficiency Status: Chronic (12) Hypertension Status: Chronic Qualifiers: Hypertension type: essential hypertension Qualified Codes: I10 - Essential (primary) hypertension (13) Sciatic neuropathy Status: Chronic (14) Ischemic cardiomyopathy Status: Chronic (15) Postoperative pain Status: Acute (16) Postoperative anemia Status: Acute (17) History of Clostridium difficile infection Status: Chronic (18) COPD (chronic obstructive pulmonary disease) Status: Chronic Qualifiers: COPD type: unspecified COPD Qualified Codes: J44.9 - Chronic obstructive pulmonary disease, unspecified (19) Acute delirium Status: Acute (20) Sepsis Status: Resolved Resolution Date/Time: 06/24/19 @ 07:04 (21) Orthostasis Status: Chronic (22) Flash pulmonary edema Status: Resolved Resolution Date/Time: 06/24/19 @ 07:04 (23) Troponin level elevated Status: Resolved Resolution Date/Time: 06/24/19 @ 07:04 (24) COPD with acute exacerbation Status: Resolved Resolution Date/Time: 06/24/19 @ 07:04 (25) Elevated brain natriuretic peptide (BNP) level Status: Resolved Resolution Date/Time: 06/24/19 @ 07:04 (26) Transfusion of blood during current hospitalization Status: Resolved Resolution Date/Time: 06/24/19 @ 07:04 (27) Elevated lactic acid level Status: Resolved Resolution Date/Time: 06/24/19 @ 07:04 (28) Hx of CABG Status: Chronic ADALBERTO ARENAS DO Jun 24, 2019 15:40
[2019-06-24 17:32] VITALS: BP 110/64
[2019-06-24 21:08] VITALS: BP 113/68
[2019-06-24] MEDS: MONTELUKAST 10 MG (SINGULAIR) TAB PO SCH (21:11)
[2019-06-24] MEDS: OLANZapine 5 MG ODT (ZyPREXA ZYDIS) PO SCH (21:12)
[2019-06-24] MEDS: MELATONIN 3 MG TABLET PO PRN (21:19)
[2019-06-25] MEDS: ACETAMINOPHEN 500 MG TAB (TYLENOL) PO PRN ×3 (01:41→22:25)
[2019-06-25] MEDS: PIPERACILLIN/TAZOBACTAM (BULK) 4.5 GM in NS (IVPB) 100 ML IV SCH ×2 (03:16→12:12)
[2019-06-25 05:45] VITALS: BP 118/67
[2019-06-25] MEDS: inSUlin ASPART (NovoLOG) 1 UNIT/0.01 ML (CHARGE PER UNIT) SC SCH ×4 (06:43→20:41)
[2019-06-25] MEDS: LACTOBACILLUS Acidoph/Bulgar 1 GM (LACTINEX) PACKET PO SCH ×4 (06:44→20:42)
[2019-06-25] MEDS: RT-ADVAIR HFA 115/21 MCG PER PUFF IH SCH ×2 (07:28→20:39)
[2019-06-25] MEDS: RT-ALBUTEROL/IPRATROPIUM 3 ML (DUONEB) VIAL INH SCH ×3 (07:28→20:39)
[2019-06-25 08:00] VITALS: BP 114/62
[2019-06-25] MEDS ORDERED: BISACODYL 10 MG SUPP (DULCOLAX) PR PRN (09:00)
--- NOTE | 2019-06-25 09:07 | Progress Note - Ortho ---
Progress Note Subjective Date of Exam 06/25/19 Chief Complaint 6 days postop long TFN left hip for two-part intertrochanteric fracture HPI/Events since last exam Doing well in rehabilitation with no complaints Review of Systems No additions or changes Allergies: Coded Allergies: No Known Drug Allergies (Verified , 09/19/08) Home Meds Active Scripts Albuterol Sulfate (Albuterol Sulfate) 2.5 Mg/3 Ml Vial.neb, 2.5 MG INH TID, #60 EA Prov:ADALBERTO ARENAS DO 10/19/18 L. Acidophilus/Bulgaricus (Floranex Granules Packet) 1 Each Gran.pack, 1 GM PO ACHS, #60 EA Prov:ADALBERTO ARENAS DO 10/19/18 Pantoprazole Sodium (Pantoprazole Sodium) 40 Mg Tablet.dr, 40 MG PO DAILY, #30 TAB Prov:ADALBERTO ARENAS DO 10/19/18 Fluticasone Propionate (Fluticasone Propionate) 16 Gm [place].susp, 2 SPRAY NS DAILY, #1 SPRAY Prov:ADALBERTO ARENAS DO 10/19/18 Montelukast Sodium (Montelukast Sodium) 10 Mg Tablet, 10 MG PO HS, #30 TAB Prov:ADALBERTO ARENAS DO 10/19/18 Loratadine (Loratadine) 10 Mg Tablet, 10 MG PO DAILY, #30 TAB Prov:ADALBERTO ARENAS DO 10/19/18 Reported Medications Dextrose (Glucose) 4 Gm Tab.chew, 4 GM PO UD PRN for BS<120, TAB 02/24/19 Insulin Glargine,Hum.rec.anlog (Lantus Solostar) 100 Unit/1 Ml Insuln.pen, 15-20 UNITS SC HS, EA 02/24/19 Atorvastatin Calcium (Lipitor) 10 Mg Tablet, 10 MG PO DAILY, TAB 10/17/18 Aspirin (Aspirin EC) 81 Mg Tablet.dr, 81 MG PO DAILY, TAB 10/17/18 Galantamine HBr (Galantamine HBr) 8 Mg Tablet, 4 MG PO BID, TAB TAKES 1/2 (8MG) TABLET 10/17/18 Sacubitril/Valsartan (Entresto 24 mg-26 mg Tablet) 1 Each Tablet, 1 TAB PO BID, TAB 10/17/18 Metformin HCl (Metformin HCl) 500 Mg Tablet, 500 MG PO DAILY, TAB 10/17/18 Fluticasone/Salmeterol (Advair 250-50 Diskus) 1 Each Blst.w.dev, 1 PUFF IH BID, INHALER 08/28/16 Sertraline HCl (Sertraline HCl) 100 Mg Tablet, 100 MG PO DAILY, TAB 08/28/16 Carvedilol (Carvedilol) 3.125 Mg Tablet, 3.125 MG PO BID, TAB 08/28/16 Dronabinol (Dronabinol) 2.5 Mg Capsule, 2.5 MG PO BID, CAP 08/28/16 Methylphenidate HCl (Ritalin) 5 Mg Tablet, 5 MG PO BID, TAB 07/22/15 Insulin Lispro (Humalog Kwikpen) 100 Unit/1 Ml Insuln.pen, 15-25 UNITS SQ AC, EA 07/22/15 Objective Exam Constitutional: [] HEENT: [] Neck: [] Cardiovascular: [] Respiratory: [] Gastrointestinal: [] Genitourinary: [] Skin: [] Back/Spine: [] Extremities: [Bruising unchanged left hip. Band-Aids over wounds. No calf tenderness negative Homans. Neurovascular status intact.] Neurologic: [] Psychiatric: [] Hematologic/lymphatic/immunologic: [] Vital Signs Vital Signs Date Time Temp Pulse Resp B/P (MAP) Pulse Ox O2 Delivery O2 Flow Rate FiO2 06/25/19 07:31 Room Air 06/25/19 07:30 95 Room Air 06/25/19 05:45 98.8 84 18 118/67 (84) 95 Room Air 06/24/19 21:08 93 113/68 (83) 06/24/19 21:00 Room Air 06/24/19 19:08 93 Room Air 06/24/19 19:08 93 Room Air 06/24/19 17:32 98.3 83 20 110/64 (79) 94 Room Air 06/24/19 15:02 92 Room Air 06/24/19 10:06 78 94/54 (67) 06/24/19 09:59 Room Air I & O 06/25/19 07:00 Intake Total 1630 ml Output Total 2200 ml Balance -570 ml Lab Results Laboratory Tests 06/24/19 11:38: Glucometer 192H 06/24/19 15:46: Glucometer 170H 06/24/19 20:26: Glucometer 210H 06/25/19 05:19: Glucometer 196H Assessment and Plan Assessment Doing well postop 6 days since long TFN left hip Problem List No additions or changes Plan Continue with rehabilitation walker ambulation weightbearing as tolerated on the left Final Diagonsis 6 days postop long TFN left hip for two-part intertrochanteric fracture Level of the visit: Level 3 Clinical Quality Measures DVT/VTE Risk/Contraindication: Risk Factor Score Per Nursin RFS Level Per Nursing on Admit: 4+=Very High DAX YOUNG MD Jun 25, 2019 09:07
[2019-06-25] MEDS: FUROSEMIDE 20 MG (LASIX) TAB PO SCH (09:38)
[2019-06-25] MEDS: SACUBITRIL/VALSARTAN 24/26 MG (ENTRESTO) TABLET PO SCH ×2 (09:38→20:42)
[2019-06-25] MEDS: SERTRALINE 100 MG (ZOLOFT) TAB PO SCH (09:38)
[2019-06-25] MEDS: CARVEDILOL 3.125 MG (COREG) TABLET PO SCH ×2 (09:38→20:42)
[2019-06-25] MEDS: LORATADINE (CLARITIN) 10 MG TAB PO SCH (09:39)
[2019-06-25] MEDS: PANTOPRAZOLE 40 MG (PROTONIX) TAB PO SCH (09:39)
[2019-06-25] MEDS: SENNA W/DOCUSATE (SENOKOT S) TABLET PO SCH ×2 (09:40→20:42)
[2019-06-25] MEDS: FLUTICASONE NASAL SPRAY (FLONASE) 16 GM BTL NS SCH (09:40)
--- NOTE | 2019-06-25 11:11 | Cardiology Progress Note ---
Cardiology SOAP Progress Note Subjective: improved symptomatically. Objective: I&O/Vital Signs 06/25/19 06/25/19 06/25/19 05:45 07:30 07:31 Temp 98.8 Pulse 84 Resp 18 B/P (MAP) 118/67 (84) Pulse Ox 95 95 O2 Delivery Room Air Room Air Room Air 06/25/19 00:00 Intake Total 1380 ml Output Total 1400 ml Balance -20 ml Weight (Pounds): 179 Weight (Ounces): 10.0 Weight (Calculated Kilograms): 81.602556 Constitutional: No appears stated age; AAO x 3; No apparent distress, No PERRL; well-developed, well-nourished; No other Respiratory: No accessory muscle use, No respiratory distress, No chest tender, No chest expansion is symmetric; chest is bilaterally symmetric; No lungs clear to percussion; lungs clear to auscultation; No crackles, No rhonchi, No rales, No stridor, No wheezing, No pleural rub, No other Cardiovascular: regular rate-rhythm; No irregularly irregular, No extra beats, No parasternal heave is noted, No JVD, No edema, No bradycardia, No tachycardia, No point of maximal impulse, No cardiac thrills are palpable; S1 and S2; No gal lop/S3, No gallop/S4, No diastolic murmur, No systolic murmur, No friction rub, No click, No other Gastrointestional: No tender; soft, round; No distended, No pulsatile mass, No organomegaly, No guarding, No rebound, No tenderness, No hernia, No mass; audible bowel sounds; No abnormal bowel sounds, No abdominal bruits, No spleenomegaly, No other Extremities: normal range of motion, non-tender, normal inspection; No pedal edema, No calf tenderness, No normal capillary refill, No pelvis stable, No calf tenderness, No inflammation, No pedal edema, No slow capillary refill, No swelling, No other, No abrasion, No clubbing, No cyanosis, No ecchymosis, No laceration; no lower extremity edema bilateral; No significant edema, No tenderness, No wound Neurologic/Psychiatric: no motor/sensory deficits, alert, normal mood/affect, o riented x 3 Skin: warm/dry Results/Procedures: Labs Laboratory Tests 06/24/19 11:38: Glucometer 192H 06/24/19 15:46: Glucometer 170H 06/24/19 20:26: Glucometer 210H 06/25/19 05:19: Glucometer 196H A/P: Assessment/Dx: Hip fracture Coronary artery disease Carotid stenosis ALL Ischemic cardiomyopathy Plan: Left femur fracture, post surgical repair done on June 19, 2019. Undergoing rehabilitation. Continue to monitor Anemia, mild thrombocytopenia, save blood transfusion, managed by Dr. Perez Status post respiratory failure, better, responded to diuretics. Congestive heart failure, acute on chronic left ventricular systolic dysfunction, secondary to chemotherapy and coronary artery disease, ischemic and nonischemic cardiomyopathy, echocardiogram showed ejection fraction 25-30 percent, continue on Coreg and Entresto. Monitor tolerance and response closely. May consider life vest for primary prevention of sudden cardiac . I discussed with the patient on 06/25/2019. Defer to Dr. Foreman and Dr. Watts for Wednesday. History of orthostatic dizziness and hypotension, near-syncope, no current syncopal episodes or dizziness reported. Coronary artery disease status post CABG x3 in 2004, cardiac catheterization in April 2014 which showed patent bypass grafts with small vessel disease distally mainly in the LAD system that was receiving retrograde collateral, treated conservatively. Cardiac catheterization was done on November 07, 2014 showing small vessel disease, patent MAHONEY to LAD, vein graft to the circumflex artery and vein graft to the right coronary artery, repeat cardiac catheterization was done in August 2016 showing patent MAHONEY to LAD, vein graft to the obtuse marginal branch with sluggish flow in the [place] circumflex artery, patent vein graft to the right coronary artery, the proximal [place] coronary arteries appear slightly worse with occlusion of the left main, the LAD and diagonal artery are getting collaterals from the right system. He has been asymptomatic. Continue to monitor. Mild bilateral carotid stenosis, ultrasound was done in March 2018. Continue to monitor History of esophageal spasm, EGD by Dr. Manzanares , reporting improvement. 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 Nettles, continue to monitor. 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 Nettles. Hypertension, controlled on current medication, continue to monitor Hyperlipidemia, continue to monitor lipids. Managed by Dr. Watts. Diabetes mellitus, managed and followed by primary care physician. History of atrial flutter status post ablation in 2004, currently in sinus rhythm. Continue to monitor Thank you for your consultation. Please call me if you have any questions. Bobby Crawford MD, FACP, FACC, FSCAI, FHRS, CCDS Interventional Cardiology Cardiac Electrophysiology Vascular Medicine and Endovascular Interventions Murphy CRAWFORD MD Jun 25, 2019 11:10
--- NOTE | 2019-06-25 12:26 | PM&R Progress Note ---
Subjective HPI/CC On Admission Date Seen by Provider: Jun 25, 2019 Time Seen by Provider: 12:15 CC: Debility following left hip fracture HPI: This is a 78yoWM clinic pt of [facility] with sever comorbidities who had an uncomplicated left hip fracture repair by Dr. Richards on Wednesday after sustaining a fall at his daughters office after missing a step on the stairs an subsequently was repaired but had some flash pulmonary edema requiring transfer to the ICU and lactic acid elevation with acute sinusitis requiring Zosyn antibiotics empirically along with IV Lasix with close monitoring and severe delirium requiring a live sitter since he was such a fall risk and received two units of blood with good improvement in Hgb of 7.5 and decreased platelet counts so Dr. Alvarado, Dr Nettles, Dr. Foreman and Dr. Richards agreed with plan to transfer to ICU and he was improving significantly so and delirium was improved to the point to where he was able to DC to inpatient rehab and continue his intensive therapies which may require 15/7 intensity because of the delirium but will try our best to initiate. Weight bearing is tolerated per Dr. Richards and we will monitor bowel function, and bladder function and monitor labs in the meantime. 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 Objective Exam Vital Signs Vital Signs Date Time Temp Pulse Resp B/P (MAP) Pulse Ox O2 Delivery O2 Flow Rate FiO2 06/25/19 14:13 94 Room Air 06/25/19 05:45 98.8 84 18 118/67 (84) Capillary Refill : General Appearance: No Apparent Distress, WD/WN, Chronically ill, Thin HEENT: PERRL/EOMI, Normal ENT Inspection, Pharynx Normal, Moist Mucous Membranes Neck: Full Range of Motion, Normal Inspection, Non Tender, Supple Respiratory: Chest Non Tender, Lungs Clear, Normal Breath Sounds, No Accessory Muscle Use, No Respiratory Distress Cardiovascular: Regular Rate, Rhythm, No Edema, No Gallop, No JVD, No Murmur Gastrointestinal: Normal Bowel Sounds, No Organomegaly, No Pulsatile Mass, Non Tender, Soft Back: Normal Inspection, No CVA Tenderness, No Vertebral Tenderness Extremity: Normal Capillary Refill, Normal Inspection, Normal Range of Motion (except left leg), Non Tender, No Calf Tenderness, No Pedal Edema Neurologic/Psychiatric: Alert, Oriented x3, No Motor/Sensory Deficits, Normal 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 FIM Transfers Therapy Code Descriptions/Definitions Functional [place] Measure: 0=Not Assessed/NA 4=Minimal Assistance 1=Total Assistance 5=Supervision or Setup 2=Maximal Assistance 6=Modified [place] 3=Moderate Assistance 7=Complete [place] Therapy Quality Codes: 6 Independent with activity with or without an assistive device 5 Patient requires set up or clean up by helper. Patient completes activity by themselves 4 Supervision or touching assist (CGA). [place] provide cues , steadying assist 3 The helper provides less than half the effort to complete the activity 2 The helper provides more than half the effort to complete the activity 1 Dependent. The helper does all the effort to complete an activity 7 Patient refused to complete or attempt activity 9 The patient did not perform the activity before the current illness or injury 88 Not attempted due to Medical conditions or safety concerns Transfers (B, C, W/C) (FIM): 3 Scootin Rollin Roll Left to Right (QC): 3 Supine to/from Sit: 3 Sit to/from Stand: 4 Sit to Lying (QC): 3 Sit to Stand (QC): 3 Chair/Oan-wy-Vmnxb Xfer(QC): 3 Bed to/from Chair: 3 Car Transfer (QC): 3 Gait Training Does the Patient Walk?: Yes Gait (FIM): 2 Distance (FIM): 1=up to 49 ft Distance: 50 ft x 4 Walk 10 feet (QC): 4 Walk 50 ft with 2 Turns(QC): 88 Walk 150 ft (QC): 88 Walking 10ft/uneven surface-QC: 4 Gait Level of Assist: 4 Gait Persons Needed: 1 Gait Assistive Device: FWW Stair Training Stairs (FIM): 1 #of Steps: 1 1 Step (curb) (QC): 3 4 Steps (QC): 88 12 Steps (QC): 88 Level of Assist: 3 Mental Status/Objective Comprehension: 6 Expression: 6 Social Interaction: 7 Problem Solvin Memory: 4 ADL-Treatment Feedin Groomin Oral Hygiene (QC): 4 Bathin Shower/Bathe Self (QC): 3 Upper Extremity Dressin Upper Body Dressing (QC): 3 Lower Extremity Dressin Lower Body Dressing (QC): 2 On/Off Footwear (QC): 1 Toilet/Commode Transfer: 3 Toilet Transfer (QC): 3 Shower: 0 Assessment/Plan Assessment and Plan Assess & Plan/Chief Complaint Assessment: Left femur fracture s/p fall after missed 1 step on stairs s/p repair POD # 7 Acute and severe delirium with severe insomnia x 5 days now resolved with Zyprexa at night will decrease from 5mg at night to 2.5mg to wean off Sepsis due to URI and acute sinusitis and bronchitis placed on Zosyn and changed to PO abx today Flash pulmonary edema s/p Lasix IV may need to change to PO? 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 diff history h/o ARF while at [facility] for ALL induction PUD Remission for acute lymphocytic leukemia for [address] Perez Ischemic cardiomyopathy with improvement in ejection fraction from 30 percent to 55 percent due to Entresto management but now decreased since acute illness so may need life vest and defib Plan: IRF DVT PPx per Dr Nettles Monitor for ACS and CHF Appreciate Dr Foreman and Dr Richards and Dr Alvarado and Dr Nettles Change to PO abx soon Check labs in am (1) Fracture of femur, intertrochanteric, left, closed Status: Acute Qualifiers: Encounter type: subsequent encounter (2) Non-ST elevation myocardial infarction (NSTEMI) Status: Acute (3) CAD (coronary artery disease) Status: Chronic Qualifiers: Coronary Disease-Associated Artery/Lesion type: [place] artery [place] vs. transplanted heart: [place] heart Associated angina: without angina Qualified Codes: I25.10 - Atherosclerotic heart disease of [place] coronary artery without angina pectoris (4) ALL (acute lymphocytic leukemia) Status: Chronic (5) Neuropathy Status: Chronic (6) Renal insufficiency Status: Chronic (7) Hypertension Status: Chronic Qualifiers: Hypertension type: essential hypertension Qualified Codes: I10 - Essential (primary) hypertension (8) Sciatic neuropathy Status: Chronic (9) Ischemic cardiomyopathy Status: Chronic (10) Postoperative pain Status: Acute (11) Postoperative anemia Status: Acute (12) History of Clostridium difficile infection Status: Chronic (13) COPD (chronic obstructive pulmonary disease) Status: Chronic Qualifiers: COPD type: unspecified COPD Qualified Codes: J44.9 - Chronic obstructive pulmonary disease, unspecified (14) Acute delirium Status: Acute (15) Sepsis Status: Resolved Resolution Date/Time: 06/24/19 @ 07:04 (16) Orthostasis Status: Chronic (17) Flash pulmonary edema Status: Resolved Resolution Date/Time: 06/24/19 @ 07:04 (18) Troponin level elevated Status: Resolved Resolution Date/Time: 06/24/19 @ 07:04 (19) COPD with acute exacerbation Status: Resolved Resolution Date/Time: 06/24/19 @ 07:04 (20) Elevated brain natriuretic peptide (BNP) level Status: Resolved Resolution Date/Time: 06/24/19 @ 07:04 (21) Transfusion of blood during current hospitalization Status: Resolved Resolution Date/Time: 06/24/19 @ 07:04 (22) Elevated lactic acid level Status: Resolved Resolution Date/Time: 06/24/19 @ 07:04 (23) Fever Status: Resolved Resolution Date/Time: 10/18/18 @ 12:40 (24) Shortness of breath Status: Resolved Resolution Date/Time: 10/18/18 @ 12:40 (25) Cough Status: Acute (26) Pneumonia Status: Acute (27) Non-ST elevation myocardial infarction (NSTEMI) Status: Acute (28) Dehydration, moderate Status: Resolved Resolution Date/Time: 10/18/18 @ 12:41 (29) Severe anemia Status: Acute ADALBERTO ARENAS DO Jun 25, 2019 12:26
--- NOTE | 2019-06-25 13:00 | NUR ---
STATES COUGHING UP GREEN SPUTUM AND DR. ARENAS AWARE. HAS FELT LAZY THIS MORNING AND NOW AGREEABLE TO GETTING UP IN CHAIR.
--- NOTE | 2019-06-25 13:08 | History & Physical ---
[facility] 06/25/19 1308: History of Present Illness History of Present Illness Reason for visit/HPI Pt is a 78 y.o WM w/ PMH of CAD/CHF, HTN, DM and mild COPD, here s/p repair of uncomplicated L hip fracture by Dr. Richards on 06/19/19 after pt missed and fell down a few stairs at her daughters home. Pts recovery was complicated by an episode of flash pulmonary edema, lactic acidosis, and acute sinusitis for which he was admitted to ICU. Pt was also delirious at the time which required close monitoring. Pts delirium has improved since initial onset; pt is able to answer questions coherently and interact with others. Pt also received 2 units of blood for thrombocytopenia and HgB of 7.5 which has improved to 8.4 on (06/24/19). Doctors Jenny Richards, Kellen, Ty, Mac, and Tho are all aware of pt and coordinate care. Pt tolerates wt bearing on injured extremity and ambulates using a walker and help from PT, though movement is accompanied by pain and exacerbates with increased activity. Pt denies any new problems with urination at this time but denies having BMs at this time. Prior to hospitalization pt ambulated w/o assistance of a walker, cane, wheelchair or person. He was also able to maintain ADLs independently. 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 Pts current EF is 24-35% pt is to be tx with Coreg and Yaakov per Dr. Crawford. No further c.o/ sx reported at this time. Date of Admission Jun 23, 2019 at 09:22 Date Seen by a Provider: Jun 23, 2019 I consulted on this patient on 06/23/19 1400 Attending Physician Rosalinda Arenas DO Admitting Physician Rosalinda Arenas DO Consult Allergies and Home Medications Allergies Coded Allergies: No Known Drug Allergies (Verified , 09/19/08) Home Medications Albuterol Sulfate 2.5 Mg/3 Ml Vial.neb, 2.5 MG INH TID Prescribed by: ROSALINDA ARENAS on 10/19/18 0921 Aspirin 81 Mg Tablet., 81 MG PO DAILY, (Reported) Atorvastatin Calcium 10 Mg Tablet, 10 MG PO DAILY, (Reported) Carvedilol 3.125 Mg Tablet, 3.125 MG PO BID, (Reported) Dextrose 4 Gm Tab.chew, 4 GM PO UD PRN for BS<120, (Reported) Dronabinol 2.5 Mg Capsule, 2.5 MG PO BID, (Reported) Fluticasone Propionate 16 Gm [place].susp, 2 SPRAY NS DAILY Prescribed by: ROSALINDA ARENAS on 10/19/18920 Fluticasone/Salmeterol 1 Each Blst.w.dev, 1 PUFF IH BID, (Reported) Galantamine HBr 8 Mg Tablet, 4 MG PO BID, (Reported) TAKES 1/2 (8MG) TABLET Insulin Glargine,Hum.rec.anlog 100 Unit/1 Ml Insuln.pen, 15-20 UNITS SC HS, (Reported) Insulin Lispro 100 Unit/1 Ml Insuln.pen, 15-25 UNITS SQ AC, (Reported) L. Acidophilus/Bulgaricus 1 Each Gran.pack, 1 GM PO ACHS Prescribed by: ROSALINDA ARENAS on 10/19/18920 Loratadine 10 Mg Tablet, 10 MG PO DAILY Prescribed by: ROSALINDA ARENAS on 10/19/18920 Metformin HCl 500 Mg Tablet, 500 MG PO DAILY, (Reported) Methylphenidate HCl 5 Mg Tablet, 5 MG PO BID, (Reported) Montelukast Sodium 10 Mg Tablet, 10 MG PO HS Prescribed by: ROSALINDA ARENAS on 10/19/18920 Pantoprazole Sodium 40 Mg Tablet.dr, 40 MG PO DAILY Prescribed by: ROSALINDA ARENAS on 10/19/18920 Sacubitril/Valsartan 1 Each Tablet, 1 TAB PO BID, (Reported) Sertraline HCl 100 Mg Tablet, 100 MG PO DAILY, (Reported) Patient Home Medication List Home Medication List Reviewed: Yes Past Bvfxlsj-Lzvsqh-Ikfbkn Hx Patient Social History Marrital Status: 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) Alcohol Use: Occasionally Uses Alcohol Beverage of Choice: Beer Recreational Drug Use: No Smoking Status: Former Smoker (quit 1973) Former Smoker, Quit: Jul 26, 1985 2nd Hand Smoke Exposure: No Physical Abuse Screen: No Sexual Abuse: No Recent Foreign Travel: No Contact w/other who traveled: No Recent Hopitalizations: Yes Recent Infectious Disease Expo: No Immunizations Up To Date Tetanus Booster (TDap): Less than 5yrs Pediatric: No Date of Pneumonia Vaccine: Aug 29, 2018 Date of Influenza Vaccine: Aug 29, 2018 Seasonal Allergies Seasonal Allergies: No Surgeries Yes (TRIPLE BYPASS, HEART ABLATION, HERNIA REPAIR 05/01 strangulated, LYMPHECTOMY) Abdominal, CABG, Gallbladder, Open Heart Surgery Respiratory Yes (COPD mild) COPD, Pneumonia Currently Using CPAP: No Currently Using BIPAP: No Cardiovascular Yes (CABG, ABLATION, TRPL BYPASS) Atrial Fibrillation, Coronary Artery Disease, Heart Attack, High Cholesterol, Hypertension Neurological No Dementia, Neuropathy Reproductive System Hx Reproductive Disorders: No Sexually Transmitted Disease: No HIV/AIDS: No Genitourinary Yes Prostate Problems, Renal Failure Gastrointestinal Yes Gastroesophageal Reflux, Gastrointestinal Bleed Musculoskeletal Yes Arthritis Endocrine History of Endocrine Disorders: Yes Endocrine Disorders: Diabetes, Insulin dep HEENT History of HEENT Disorders: Yes (SMALL CATARACT) HEENT Disorders: Cataract Cancer Yes Leukemia, Skin Did You Recieve Any Treatments: Yes Type of Treatment: Chemotherapy Psychosocial History of Psychiatric Problem: No Integumentary History of Skin or Integumenta: Yes (SKIN CANCER REMOVED) Blood Transfusions History of Blood Disorders: Yes (LEUKEMIA) Adverse Reaction to a Blood Tr: No Family Medical History Significant Family History: Heart Disease, CAD Over 55 Years Old, Diabetes, Hypertension, Vascular Disease Family Hx: Cardiovascular disease G8 BROTHER Diabetes mellitus 19 MOTHER G8 BROTHER Hypertension 19 MOTHER Review of Systems Constitutional: weakness EENTM: no symptoms reported Respiratory: see HPI Cardiovascular: no symptoms reported Gastrointestinal: other (pt is currently to having any BMs) Genitourinary: see HPI Musculoskeletal: other (L hip pain s/p Fx) Skin: no symptoms reported Psychiatric/Neurological: See HPI All Other Systems Reviewed Negative Unless Noted: Yes Physical Exam Vital Signs Vital Signs - First Documented 06/23/19 09:15 Temp 98.1 Pulse 102 Resp 22 B/P (MAP) 109/67 (81) Pulse Ox 97 O2 Delivery Room Air Capillary Refill : Height, Weight, BMI Height: 5'11.00" Weight: 179lbs. 10.0oz. 81.598531mr; 25.1 BMI Method:Stated General Appearance: No Apparent Distress, Thin Eyes: Bilateral Eye Normal Inspection, Bilateral Eye PERRL, Bilateral Eye EOMI HEENT: Moist Mucous Membranes, Pale Conjunctivae (L), Pale Conjunctivae (R) Neck: Normal Inspection Respiratory: Chest Non Tender, Lungs Clear, Normal Breath Sounds, No Accessory Muscle Use, No Respiratory Distress Cardiovascular: Regular Rate, Rhythm, No Edema, No Gallop, No JVD, No Murmur, Normal Peripheral Pulses Extremity: Other (L hip TTP) Neurologic/Psychiatric: Motor Weakness (LLE) Skin: Normal Color, Warm/Dry Lymphatic: No Adenopathy Assessment/Plan Assessment and Plan Uncomplicated L hip fracture with repair Delirium Anemia Constipation General Weakness Hx of CAD and CHF Hx of DM Hx of hyperlipidemia Hx of HTN Hx of Leukemia Continue PT/OT Continue Olanzapine PO @ bedtime and Monitor closely for improvement of delirium Maintain BM regimen Monitor Bowel and bladder function, and labs for improvement Monitor Hgb and platelet count Maintain HTN, DM regimen/meds Continue to use Sequential Compression Device for DVT prophylaxis & monitor lab work serially Continue with diuretics Continue with Carvedilol and Sacubitril-Valsartan and Monitor for tolerance and response closely Problems: (1) Fracture of femur, intertrochanteric, left, closed Status: Acute Qualifiers: Clinical Quality Measures DVT/VTE Risk/Contraindication: Risk Factor Score Per Nursin RFS Level Per Nursing on Admit: 4+=Very High ROSALINDA ARENAS DO 06/25/19 1612: History of Present Illness History of Present Illness Reason for visit/HPI See above Date of Admission 06/23/19 Time Seen by a Provider: 09:00 Allergies and Home Medications Allergies Coded Allergies: No Known Drug Allergies (Verified , 09/19/08) Home Medications Albuterol Sulfate 2.5 Mg/3 Ml Vial.neb, 2.5 MG INH TID Prescribed by: ROSALINDA ARENAS on 10/19/18920 Aspirin 81 Mg Tablet.dr, 81 MG PO DAILY, (Reported) Atorvastatin Calcium 10 Mg Tablet, 10 MG PO DAILY, (Reported) Carvedilol 3.125 Mg Tablet, 3.125 MG PO BID, (Reported) Dextrose 4 Gm Tab.chew, 4 GM PO UD PRN for BS<120, (Reported) Dronabinol 2.5 Mg Capsule, 2.5 MG PO BID, (Reported) Fluticasone Propionate 16 Gm [place].susp, 2 SPRAY NS DAILY Prescribed by: ROSALINDA ARENAS on 10/19/18920 Fluticasone/Salmeterol 1 Each Blst.w.dev, 1 PUFF IH BID, (Reported) Galantamine HBr 8 Mg Tablet, 4 MG PO BID, (Reported) TAKES 1/2 (8MG) TABLET Insulin Glargine,Hum.rec.anlog 100 Unit/1 Ml Insuln.pen, 15-20 UNITS SC HS, (Reported) Insulin Lispro 100 Unit/1 Ml Insuln.pen, 15-25 UNITS SQ AC, (Reported) L. Acidophilus/[place] 1 Each Gran.pack, 1 GM PO ACHS Prescribed by: ROSALINDA ARENAS on 10/19/18920 Loratadine 10 Mg Tablet, 10 MG PO DAILY Prescribed by: ROSALINDA ARENAS on 10/19/18920 Metformin HCl 500 Mg Tablet, 500 MG PO DAILY, (Reported) Methylphenidate HCl 5 Mg Tablet, 5 MG PO BID, (Reported) Montelukast Sodium 10 Mg Tablet, 10 MG PO HS Prescribed by: ROSALINDA ARENAS on 10/19/18920 Pantoprazole Sodium 40 Mg Tablet.dr, 40 MG PO DAILY Prescribed by: ROSALINDA ARENAS on 10/19/18920 Sacubitril/Valsartan 1 Each Tablet, 1 TAB PO BID, (Reported) Sertraline HCl 100 Mg Tablet, 100 MG PO DAILY, (Reported) Patient Home Medication List Home Medication List Reviewed: Yes Past Vbhbxvc-Mfugnq-Qsllep Hx Family Medical History Family Hx: Cardiovascular disease G8 BROTHER Diabetes mellitus 19 MOTHER G8 BROTHER Hypertension 19 MOTHER Review of Systems Constitutional: see HPI Physical Exam General Appearance: Chronically ill Assessment/Plan Admission Diagnosis Admission Status: Inpatient Order (span 2 midnights) Reason for Inpatient Admission: IRF Supervisory-Addendum Brief Verification & Attestation Participated in pt care: history, MDM, physical Personally performed: exam, history, MDM, supervision of care Care discussed with: Medical Student Procedures: n/a Results interpretation: Verified all documentation Verification and Attestation of Medical Student E/M Service A medical student performed and documented this service in my presence. I reviewed and verified all information documented by the medical student and made modifications to such information, when appropriate. I personally performed the physical exam and medical decision making. Rosalinda Arenas Jun 25, 2019,16:12 [facility] Jun 25, 2019 13:08 ROSALINDA ARENAS DO Jun 25, 2019 16:12
[2019-06-25 18:00] VITALS: BP 113/60
--- NOTE | 2019-06-25 18:00 | NUR ---
SHOWERED THIS AFTERNOON. HAS HAD A GOOD DAY AND NO CONFUSION NOTED.
[2019-06-25 20:21] VITALS: BP 130/70
[2019-06-25] MEDS: OLANZapine 5 MG ODT (ZyPREXA ZYDIS) PO SCH (20:42)
[2019-06-25] MEDS: MONTELUKAST 10 MG (SINGULAIR) TAB PO SCH (20:42)
[2019-06-25] MEDS: CEFDINIR 300 MG (OMNICEF) CAP PO SCH (20:42)
[2019-06-25] MEDS: MELATONIN 3 MG TABLET PO PRN (22:26)
[2019-06-26] MEDS: inSUlin ASPART (NovoLOG) 1 UNIT/0.01 ML (CHARGE PER UNIT) SC SCH ×4 (05:47→21:16)
[2019-06-26 06:08] LABS: BASOPHILS % (AUTO) 0 % (0-10); EOSINOPHILS # (AUTO) 0.3 10^3/uL (0.0-0.3); EOSINOPHILS % (AUTO) 5 % (0-10); HEMATOCRIT 27 % (40-54); HEMOGLOBIN 8.9 G/DL (13.3-17.7); LYMPHOCYTES # (AUTO) 1.5 X 10^3 (1.0-4.0); LYMPHOCYTES % (AUTO) 24 % (12-44); MEAN CORPUSCULAR HEMOGLOBIN 32 PG (25-34); MEAN CORPUSCULAR HGB CONC 34 G/DL (32-36); MEAN CORPUSCULAR VOLUME 95 FL (80-99); MEAN PLATELET VOLUME 8.7 FL (7.4-10.4); MONOCYTES # (AUTO) 0.7 X 10^3 (0.0-1.0); MONOCYTES % (AUTO) 10 % (0-12); NEUTROPHILS # (AUTO) 3.8 X 10^3 (1.8-7.8); NEUTROPHILS % (AUTO) 61 % (42-75); PLATELET COUNT 201 10^3/uL (130-400); RED CELL DISTRIBUTION WIDTH 13.8 % (10.0-14.5); WHITE BLOOD COUNT 6.3 10^3/uL (4.3-11.0)
[2019-06-26 06:10] VITALS: BP 133/72
--- NOTE | 2019-06-26 06:17 | Progress Note ---
[facility] 06/26/19 0617: Subjective Date Seen by a Provider: Jun 26, 2019 Time Seen by a Provider: 06:30 Subjective/Events-last exam According to Nurse pt has been falling asleep easily and is easy to arouse, Alert and oriented, improved from 06/23/19 Improved Hgb 8.9 accompanied by improved dizziness Nl chemistry panel this AM Serum Glucose 114 Has been ambulating and participating in PT/OT Improved LE weakness Dr. Crawford discussed CV findings with pt Dr. Crawford discussed considering life vest for primary prevention of sudden card iac on 06/25/2019 Review of Systems General: No Chills, No Night Sweats HEENT: No Head Aches Pulmonary: No Dyspnea, No Cough, No Pleuritic Chest Pain Cardiovascular: No: Chest Pain, Edema Gastrointestinal: No: Nausea, Vomiting Genitourinary: No Dysuria Musculoskeletal: leg pain (Left) Objective Exam Last Set of Vital Signs Vital Signs Date Time Temp Pulse Resp B/P (MAP) Pulse Ox O2 Delivery O2 Flow Rate FiO2 06/25/19 21:00 Room Air 06/25/19 20:39 91 06/25/19 20:21 80 130/70 (90) 06/25/19 18:00 98.2 18 Capillary Refill : I&O Intake and Output 06/26/19 00:00 Intake Total 1370 ml Output Total 1250 ml Balance 120 ml Intake Oral 1250 ml IV Total 120 ml Output Urine Total 1250 ml # Voids 2 # Bowel Movements 1 General: Alert, Oriented X3, Cooperative, No Acute Distress HEENT: Atraumatic Neck: Supple Lungs: Clear to Auscultation, Normal Air Movement Heart: Regular Rate, Normal S1, Normal S2, No Murmurs Extremities: No Clubbing, No Cyanosis, No Edema, Normal Pulses Skin: No Rashes, No Breakdown, No Significant Lesion Neuro: Normal Speech, Sensation Intact Results Lab Laboratory Tests 06/25/19 11:28: Glucometer 201H 06/25/19 16:17: Glucometer 192H 06/25/19 20:30: Glucometer 211H 06/26/19 05:44: Glucometer 119H 06/26/19 05:45: White Blood Count 6.3, Red Blood Count 2.80L, Hemoglobin 8.9L, Hematocrit 27L, Mean Corpuscular Volume 95, Mean Corpuscular Hemoglobin 32, Mean Corpuscular Hemoglobin Concent 34, Red Cell Distribution Width 13.8, Platelet Count 201, Mean Platelet Volume 8.7, Neutrophils (%) (Auto) 61, Lymphocytes (%) (Auto) 24, Monocytes (%) (Auto) 10, Eosinophils (%) (Auto) 5, Basophils (%) (Auto) 0, Neutrophils # (Auto) 3.8, Lymphocytes # (Auto) 1.5, Monocytes # (Auto) 0.7, Eosinophils # (Auto) 0.3, Basophils # (Auto) 0.0 Assessment/Plan Assessment/Plan Assess & Plan/Chief Complaint Continue Coreg and Entresto. Monitor tolerance and response closely. Dr. Foreman and Dr. Arenas to perhaps discuss life vest for primary prevention of sudden cardiac per Dr. Crawford Left femur fracture s/p fall after missed 1 step on stairs s/p repair POD # 7 Acute and severe delirium with severe insomnia x 5 days now resolved with Zyprexa at night will decrease from 5mg at night to 2.5mg to wean off Sepsis due to URI and acute sinusitis and bronchitis placed on Zosyn and changed to PO abx today Flash pulmonary edema s/p Lasix IV may need to change to PO? 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 diff history h/o ARF while at [facility] for ALL induction PUD Remission for acute lymphocytic leukemia for [address] Perez Ischemic cardiomyopathy with improvement in ejection fraction from 30 percent to 55 percent due to Entresto management but now decreased since acute illness so may need life vest and defib Plan: IRF DVT PPx per Dr Nettles Monitor for ACS and CHF Continue to monitor Labs Continue with PT Diagnosis/Problems Diagnosis/Problems (1) Fracture of femur, intertrochanteric, left, closed Status: Acute Qualifiers: Clinical Quality Measures Admission Status Admission Dx Uncomplicated L hip fracture with repair Delirium Anemia Constipation General Weakness Hx of CAD and CHF Hx of DM Hx of hyperlipidemia Hx of HTN Hx of Leukemia Continue PT/OT Continue Olanzapine PO @ bedtime and Monitor closely for improvement of delirium Maintain BM regimen Monitor Bowel and bladder function, and labs for improvement Monitor Hgb and platelet count Maintain HTN, DM regimen/meds Continue to use Sequential Compression Device for DVT prophylaxis & monitor lab work serially Continue with diuretics Continue with Carvedilol and Sacubitril-Valsartan and Monitor for tolerance and response closely DVT/VTE Risk/Contraindication: Risk Factor Score Per Nursin RFS Level Per Nursing on Admit: 4+=Very High ROSALINDA ARENAS DO 06/26/19 2016: Supervisory-Addendum Brief Verification & Attestation Participated in pt care: history, MDM, physical Personally performed: exam, history, MDM, supervision of care Care discussed with: Medical Student Procedures: n/a Results interpretation: Verified all documentation Verification and Attestation of Medical Student E/M Service A medical student performed and documented this service in my presence. I reviewed and verified all information documented by the medical student and made modifications to such information, when appropriate. I personally performed the physical exam and medical decision making. Rosalinda Arenas, Jun 26, 2019,20:16 [facility] Jun 26, 2019 06:17 ROSALINDA ARENAS DO Jun 26, 2019 20:16
[2019-06-26 06:30] LABS: ALANINE AMINOTRANSFERASE 34 U/L (0-55); ALBUMIN 3.2 GM/DL (3.2-4.5); ALKALINE PHOSPHATASE 58 U/L (40-136); BUN/CREATININE RATIO 18; CALCIUM 8.7 MG/DL (8.5-10.1); CARBON DIOXIDE 25 MMOL/L (21-32); CHLORIDE 106 MMOL/L (98-107); CREATININE SERUM 0.84 MG/DL (0.60-1.30); GFR ESTIMATED > 60; GLUCOSE 114 MG/DL (70-105); POTASSIUM 3.5 MMOL/L (3.6-5.0); SODIUM 142 MMOL/L (135-145); TOTAL PROTEIN 5.9 GM/DL (6.4-8.2)
[2019-06-26] MEDS: RT-ALBUTEROL/IPRATROPIUM 3 ML (DUONEB) VIAL INH SCH ×3 (06:43→18:39)
[2019-06-26] MEDS: RT-ADVAIR HFA 115/21 MCG PER PUFF IH SCH ×2 (06:44→18:39)
[2019-06-26] MEDS: LACTOBACILLUS Acidoph/Bulgar 1 GM (LACTINEX) PACKET PO SCH ×4 (07:00→21:00)
--- NOTE | 2019-06-26 09:14 | Progress Note - Ortho ---
Progress Note Subjective Date of Exam 06/26/19 Chief Complaint 7 days postop long TFN left hip for intertrochanteric fracture HPI/Events since last exam The patient is 7 days since his surgery. He has no complaints. He's doing well in rehabilitation. Review of Systems No changes Allergies: Coded Allergies: No Known Drug Allergies (Verified , 09/19/08) Home Meds Active Scripts Albuterol Sulfate (Albuterol Sulfate) 2.5 Mg/3 Ml Vial.neb, 2.5 MG INH TID, #60 EA Prov:ADALBERTO ARENAS DO 10/19/18 L. Acidophilus/Bulgaricus (Floranex Granules Packet) 1 Each Gran.pack, 1 GM PO ACHS, #60 EA Prov:ADALBERTO ARENAS DO 10/19/18 Pantoprazole Sodium (Pantoprazole Sodium) 40 Mg Tablet.dr, 40 MG PO DAILY, #30 TAB Prov:ADALBERTO ARENAS DO 10/19/18 Fluticasone Propionate (Fluticasone Propionate) 16 Gm [place].susp, 2 SPRAY NS DAILY, #1 SPRAY Prov:ADALBERTO ARENAS DO 10/19/18 Montelukast Sodium (Montelukast Sodium) 10 Mg Tablet, 10 MG PO HS, #30 TAB Prov:ADALBERTO ARENAS DO 10/19/18 Loratadine (Loratadine) 10 Mg Tablet, 10 MG PO DAILY, #30 TAB Prov:ADALBERTO ARENAS DO 10/19/18 Reported Medications Dextrose (Glucose) 4 Gm Tab.chew, 4 GM PO UD PRN for BS<120, TAB 02/24/19 Insulin Glargine,Hum.rec.anlog (Lantus Solostar) 100 Unit/1 Ml Insuln.pen, 15-20 UNITS SC HS, EA 02/24/19 Atorvastatin Calcium (Lipitor) 10 Mg Tablet, 10 MG PO DAILY, TAB 10/17/18 Aspirin (Aspirin EC) 81 Mg Tablet.dr, 81 MG PO DAILY, TAB 10/17/18 Galantamine HBr (Galantamine HBr) 8 Mg Tablet, 4 MG PO BID, TAB TAKES 1/2 (8MG) TABLET 10/17/18 Sacubitril/Valsartan (Entresto 24 mg-26 mg Tablet) 1 Each Tablet, 1 TAB PO BID, TAB 10/17/18 Metformin HCl (Metformin HCl) 500 Mg Tablet, 500 MG PO DAILY, TAB 10/17/18 Fluticasone/Salmeterol (Advair 250-50 Diskus) 1 Each Blst.w.dev, 1 PUFF IH BID, INHALER 08/28/16 Sertraline HCl (Sertraline HCl) 100 Mg Tablet, 100 MG PO DAILY, TAB 08/28/16 Carvedilol (Carvedilol) 3.125 Mg Tablet, 3.125 MG PO BID, TAB 08/28/16 Dronabinol (Dronabinol) 2.5 Mg Capsule, 2.5 MG PO BID, CAP 08/28/16 Methylphenidate HCl (Ritalin) 5 Mg Tablet, 5 MG PO BID, TAB 07/22/15 Insulin Lispro (Humalog Kwikpen) 100 Unit/1 Ml Insuln.pen, 15-25 UNITS SQ AC, EA 07/22/15 Objective Exam Constitutional: [] HEENT: [] Neck: [] Cardiovascular: [] Respiratory: [] Gastrointestinal: [] Genitourinary: [] Skin: [] Back/Spine: [] Extremities: [] Neurologic: [] Psychiatric: [] Hematologic/lymphatic/immunologic: [] I was unable to evaluate the patient's left hip as he was in the bathroom at the time that I saw him. I talked to him about his hip and he states he's doing well. He is ambulating with his walker weightbearing as tolerated on the left. I will be leaving town tomorrow morning and if there is any concerns or problems Dr. Warner is available to see my patient's. Otherwise if he is doing well we'll have his fredi removed next Wednesday on 07/03. We'll have him follow- up in the office when I return sometime in the week of 07/10 for reevaluation and re-x-rays of the left hip Vital Signs Vital Signs Date Time Temp Pulse Resp B/P (MAP) Pulse Ox O2 Delivery O2 Flow Rate FiO2 06/26/19 06:44 93 Room Air 06/26/19 06:10 98.3 83 16 133/72 (92) 96 Room Air 06/25/19 21:00 Room Air 06/25/19 20:39 91 Room Air 06/25/19 20:21 80 130/70 (90) 9/8/19 18:00 98.2 87 18 113/60 (77) 95 Room Air 06/25/19 14:13 94 Room Air I & O 06/26/19 06:59 Intake Total 1620 ml Output Total 1650 ml Balance -30 ml Lab Results Laboratory Tests 06/25/19 11:28: Glucometer 201H 06/25/19 16:17: Glucometer 192H 06/25/19 20:30: Glucometer 211H 06/26/19 05:44: Glucometer 119H 06/26/19 05:45: White Blood Count 6.3, Red Blood Count 2.80L, Hemoglobin 8.9L, Hematocrit 27L, Mean Corpuscular Volume 95, Mean Corpuscular Hemoglobin 32, Mean Corpuscular Hemoglobin Concent 34, Red Cell Distribution Width 13.8, Platelet Count 201, Mean Platelet Volume 8.7, Neutrophils (%) (Auto) 61, Lymphocytes (%) (Auto) 24, Monocytes (%) (Auto) 10, Eosinophils (%) (Auto) 5, Basophils (%) (Auto) 0, Neutrophils # (Auto) 3.8, Lymphocytes # (Auto) 1.5, Monocytes # (Auto) 0.7, Eosinophils # (Auto) 0.3, Basophils # (Auto) 0.0, Sodium Level 142, Potassium L evel 3.5L, Chloride Level 106, Carbon Dioxide Level 25, Anion Gap 11, Blood Urea Nitrogen 15, Creatinine 0.84, Estimat Glomerular Filtration Rate > 60, BUN/Creatinine Ratio 18, Glucose Level 114H, Calcium Level 8.7, Corrected Calcium 9.3, Total Bilirubin 1.0, Aspartate Amino Transf (AST/SGOT) 28, Alanine Aminotransferase (ALT/SGPT) 34, Alkaline Phosphatase 58, Total Protein 5.9L, Albumin 3.2 Assessment and Plan Assessment Doing well postop Problem List No changes Plan Continue with rehabilitation walker ambulation weightbearing as tolerated on the left. Suture removal in 07/03. Follow-up in the office sometime the week of Nereyda patient is still in rehabilitation Final Diagonsis Long TFN left hip for two-part instructor fracture Level of the visit: Level 3 Clinical Quality Measures DVT/VTE Risk/Contraindication: Risk Factor Score Per Nursin RFS Level Per Nursing on Admit: 4+=Very High DAX YOUNG MD Jun 26, 2019 09:14
[2019-06-26 10:07] VITALS: BP 132/73
[2019-06-26] MEDS: LORATADINE (CLARITIN) 10 MG TAB PO SCH (10:11)
[2019-06-26] MEDS: SERTRALINE 100 MG (ZOLOFT) TAB PO SCH (10:11)
[2019-06-26] MEDS: PANTOPRAZOLE 40 MG (PROTONIX) TAB PO SCH (10:11)
[2019-06-26] MEDS: CARVEDILOL 3.125 MG (COREG) TABLET PO SCH ×2 (10:11→21:01)
[2019-06-26] MEDS: SACUBITRIL/VALSARTAN 24/26 MG (ENTRESTO) TABLET PO SCH ×2 (10:11→21:00)
[2019-06-26] MEDS: CEFDINIR 300 MG (OMNICEF) CAP PO SCH ×2 (10:12→21:01)
[2019-06-26] MEDS: FUROSEMIDE 20 MG (LASIX) TAB PO SCH (10:12)
[2019-06-26] MEDS: SENNA W/DOCUSATE (SENOKOT S) TABLET PO SCH ×2 (10:12→21:01)
--- NOTE | 2019-06-26 10:13 | Physical Therapy Daily Note ---
PT Daily Note-Current Subjective Patient in therapy gym pre tx, agrees to PT, has 6/10 pain in left leg, states he doesn't need pain meds yet. Appearance Patient BTB post tx with nurse call, phone, tray, bed alarm on. Mental Status Patient Orientation: Person, Confused, Place, Situation Transfers Therapy Code Descriptions/Definitions Functional Angelina Measure: 0=Not Assessed/NA 4=Minimal Assistance 1=Total Assistance 5=Supervision or Setup 2=Maximal Assistance 6=Modified Angelina 3=Moderate Assistance 7=Complete Angelina Therapy Quality Codes: 6 Independent with activity with or without an assistive device 5 Patient requires set up or clean up by helper. Patient completes activity by themselves 4 Supervision or touching assist (CGA). [place] provide cues , steadying assist 3 The helper provides less than half the effort to complete the activity 2 The helper provides more than half the effort to complete the activity 1 Dependent. The helper does all the effort to complete an activity 7 Patient refused to complete or attempt activity 9 The patient did not perform the activity before the current illness or injury 88 Not attempted due to Medical conditions or safety concerns Transfers (B, C, W/C) (FIM): 4 Scootin Rollin Supine to/from Sit: 4 Sit to/from Stand: 4 Bed to/from Chair: 4 Min assist for supine <-> sit, CGA for sit to stand and transfers, cues for hand placement and positioning Weight Bearing Right Lower Extremity: Right Weight Bearing/Tolerated Left Lower Extremity: Left Weight Bearing/Tolerated Gait Training Gait (FIM): 4 Distance: 150', 75'x2 Gait Level of Assist: 4 Gait Persons Needed: 1 Gait Assistive Device: FWW slow, antalgic, CGA, has a step-to gait pattern, cues for step through Exercises LAQ alternating for 5 min NuStep Minutes: 15 NuStep Workload: 4 Treatments bed mobility and transfers, ambulation, LE exercise Assessment Current Status: Fair Progress improving endurance PT Short Term Goals Short Term Goals Time Frame: Jul 07, 2019 Gait (FIM): 4 Distance (FIM): 3=150 ft Gait Distance Comment: 150' Gait Level of Assist: 4 Gait Assistive Device: FWW Stairs (FIM): 2 # of Steps: 4 Stairs Level of Assist: 4 PT Skidder Driver Goals Skidder Driver Goals PT Fdc Goals Time Frame: Jul 21, 2019 Transfers (B,C,W/C) (FIM): 6 Sit to Lying (QC): 6 Lying-Sitting on Side/Bed(QC): 6 Sit to Stand (QC): 6 Rollin Roll Left to Right (QC): 6 Chair/Wrd-ri-Tquyn Xfer(QC): 6 Car Transfer (QC): 6 Does the Patient Walk: Yes Gait (FIM): 6 Gait distance (FIM): 3=150 ft Distance: 250' Walk 10 feet (QC): 6 Walk 10ft-Uneven Surface(QC): 6 Walk 50ft with 2 Turns (QC): 6 Walk 150 ft (QC): 6 Gait Level of Assist: 6 Gait Assistive Device: FWW Stairs (FIM): 6 # of Steps: 12 1 Step (curb) (QC): 6 4 Steps (QC): 6 12 Steps (QC): 6 Stairs Level Of Assist: 6 Picking up an Object (QC): 6 PT Plan Problem List Problem List: Activity Tolerance, Functional Strength, Safety, Balance, Gait, Transfer, Bed Mobility, ROM Treatment/Plan Treatment Plan: Continue Plan of Care Treatment Plan: Bed Mobility, Education, Functional Activity Tessie, Functional Strength, Group Therapy, Gait, Safety, Therapeutic Exercise, Transfers Treatment Duration: Jul 21, 2019 Frequency: At least 5 of 7 days/Wk (IRF) Estimated Hrs Per Day: 1.5 hours per day Patient and/or Family Agrees t: Yes Safety Risks/Education Patient Education: Gait Training, Transfer Techniques, Correct Positioning, Safety Issues Teaching Recipient: Patient Teaching Methods: Demonstration, Discussion Response to Teaching: Reinforcement Needed Time/GCodes Time In: 0930 Time Out: 1015 Total Billed Treatment Time: 45 Total Billed Treatment 1 visit EX 20' FA 10' GT 15' EMPERATRIZ VERGARA PT Jun 26, 2019 10:13
[2019-06-26] MEDS: FLUTICASONE NASAL SPRAY (FLONASE) 16 GM BTL NS SCH (10:14)
[2019-06-26] MEDS: ACETAMINOPHEN 500 MG TAB (TYLENOL) PO PRN ×3 (10:21→23:34)
--- NOTE | 2019-06-26 11:27 | Cardiology Progress Note ---
Cardiology SOAP Progress Note Subjective: no cardiac complaints. Objective: I&O/Vital Signs 06/26/19 06/26/19 06/26/19 06:10 06:44 10:07 Temp 36.33393 36.8 Pulse 83 83 Resp 16 20 B/P (MAP) 133/72 (92) 132/73 Pulse Ox 96 93 97 O2 Delivery Room Air Room Air Room Air 06/26/19 00:00 Intake Total 1000 ml Output Total 450 ml Balance 550 ml Weight (Pounds): 179 Weight (Ounces): 10.0 Weight (Calculated Kilograms): 81.956365 Constitutional: No appears stated age; AAO x 3; No apparent distress, No PERRL; well-developed, well-nourished; No other Respiratory: No accessory muscle use, No respiratory distress, No chest tender, No chest expansion is symmetric; chest is bilaterally symmetric; No lungs clear to percussion; lungs clear to auscultation; No crackles, No rhonchi, No rales, No stridor, No wheezing, No pleural rub, No other Cardiovascular: regular rate-rhythm; No irregularly irregular, No extra beats, No parasternal heave is noted, No JVD, No edema, No bradycardia, No tachycardia, No point of maximal impulse, No cardiac thrills are palpable; S1 and S2; No gallop/S3, No gallop/S4, No diastolic murmur, No systolic murmur, No friction rub, No click, No other Gastrointestional: No tender; soft, round; No distended, No pulsatile mass, No organomegaly, No guarding, No rebound, No tenderness, No hernia, No mass; audible bowel sounds; No abnormal bowel sounds, No abdominal bruits, No spleenomegaly, No other Extremities: normal range of motion, non-tender, normal inspection; No pedal edema, No calf tenderness, No normal capillary refill, No pelvis stable, No calf tenderness, No inflammation, No pedal edema, No slow capillary refill, No swelling, No other, No abrasion, No clubbing, No cyanosis, No ecchymosis, No laceration; no lower extremity edema bilateral; No significant edema, No tenderness, No wound Neurologic/Psychiatric: no motor/sensory deficits, alert, normal mood/affect, oriented x 3 Skin: warm/dry Results/Procedures: Labs Laboratory Tests 06/25/19 11:28: Glucometer 201H 06/25/19 16:17: Glucometer 192H 06/25/19 20:30: Glucometer 211H 06/26/19 05:44: Glucometer 119H 06/26/19 05:45: White Blood Count 6.3, Red Blood Count 2.80L, Hemoglobin 8.9L, Hematocrit 27L, Mean Corpuscular Volume 95, Mean Corpuscular Hemoglobin 32, Mean Corpuscular Hemoglobin Concent 34, Red Cell Distribution Width 13.8, Platelet Count 201, Mean Platelet Volume 8.7, Neutrophils (%) (Auto) 61, Lymphocytes (%) (Auto) 24, Monocytes (%) (Auto) 10, Eosinophils (%) (Auto) 5, Basophils (%) (Auto) 0, Neutrophils # (Auto) 3.8, Lymphocytes # (Auto) 1.5, Monocytes # (Auto) 0.7, Eosinophils # (Auto) 0.3, Basophils # (Auto) 0.0, Sodium Level 142, Potassium Level 3.5L, Chloride Level 106, Carbon Dioxide Level 25, Anion Gap 11, Blood Urea Nitrogen 15, Creatinine 0.84, Estimat Glomerular Filtration Rate > 60, BUN/Creatinine Ratio 18, Glucose Level 114H, Calcium Level 8.7, Corrected Alfred cium 9.3, Total Bilirubin 1.0, Aspartate Amino Transf (AST/SGOT) 28, Alanine Aminotransferase (ALT/SGPT) 34, Alkaline Phosphatase 58, Total Protein 5.9L, Albumin 3.2 06/26/19 10:57: Glucometer 207H A/P: Assessment/Dx: Hip fracture Coronary artery disease Carotid stenosis ALL Ischemic cardiomyopathy Plan: Left femur fracture, post surgical repair done on June 19, 2019. Undergoing rehabilitation. Continue to monitor Anemia, mild thrombocytopenia, save blood transfusion, managed by Dr. Perez Status post respiratory failure, better, responded to diuretics. Congestive heart failure, acute on chronic left ventricular systolic dysfunction, secondary to chemotherapy and coronary artery disease, ischemic and nonischemic cardiomyopathy, echocardiogram showed ejection fraction 25-30 percent, continue on Coreg and Entresto. Monitor tolerance and response closely. May consider life vest for primary prevention of sudden cardiac . I discussed with the patient on 06/25/2019. Defer to Dr. Foreman and Dr. Watts for Wednesday. History of orthostatic dizziness and hypotension, near-syncope, no current syncopal episodes or dizziness reported. Coronary artery disease status post CABG x3 in 2004, cardiac catheterization in April 2014 which showed patent bypass grafts with small vessel disease distally mainly in the LAD system that was receiving retrograde collateral, treated conservatively. Cardiac catheterization was done on November 07, 2014 showing small vessel disease, patent MAHONEY to LAD, vein graft to the circumflex artery and vein graft to the right coronary artery, repeat cardiac catheterization was done in August 2016 showing patent MAHONEY to LAD, vein graft to the obtuse marginal branch with sluggish flow in the [place] circumflex artery, patent vein graft to the right coronary artery, the proximal [place] coronary arteries appear slightly worse with occlusion of the left main, the LAD and diagonal artery are getting collaterals from the right system. He has been asymptomatic. Continue to monitor. Mild bilateral carotid stenosis, ultrasound was done in March 2018. Continue to monitor History of esophageal spasm, EGD by Dr. Manzanares , reporting improvement. 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 Nettles, continue to monitor. 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 Nettles. Hypertension, controlled on current medication, continue to monitor Hyperlipidemia, continue to monitor lipids. Managed by Dr. Watts. Diabetes mellitus, managed and followed by primary care physician. History of atrial flutter status post ablation in 2004, currently in sinus rhythm. Continue to monitor Thank you for your consultation. Please call me if you have any questions. Bobby Crawford MD, FACP, FACC, FSCAI, FHRS, CCDS Interventional Cardiology Cardiac Electrophysiology Vascular Medicine and Endovascular Interventions Murphy CRAWFORD MD Jun 26, 2019 11:27
--- NOTE | 2019-06-26 14:08 | Occupational Ther Daily Note ---
OT Current Status-Daily Note Subjective Pt. reports 5/10 pain in hip but declines pain medication at this time. Appearance Pt. in bed. Agrees to work with therapist. Mental Status/Objective Patient Orientation: Person, Place, Time, Situation Therapy Code Descriptions/Definitions Functional [place] Measure: 0=Not Assessed/NA 4=Minimal Assistance 1=Total Assistance 5=Supervision or Setup 2=Maximal Assistance 6=Modified [place] 3=Moderate Assistance 7=Complete [place] ADL-Treatment Therapy Code Descriptions/Definitions Functional [place] Measure: 0=Not Assessed/NA 4=Minimal Assistance 1=Total Assistance 5=Supervision or Setup 2=Maximal Assistance 6=Modified [place] 3=Moderate Assistance 7=Complete [place] Therapy Quality Codes: 6 Independent with activity with or without an assistive device 5 Patient requires set up or clean up by helper. Patient completes activity by themselves 4 Supervision or touching assist (CGA). [place] provide cues , steadying assist 3 The helper provides less than half the effort to complete the activity 2 The helper provides more than half the effort to complete the activity 1 Dependent. The helper does all the effort to complete an activity 7 Patient refused to complete or attempt activity 9 The patient did not perform the activity before the current illness or injury 88 Not attempted due to Medical conditions or safety concerns Grooming (FIM): 5 Oral Hygiene (QC): 5 Upper Body (FIM): 5 Upper Body Dressing (QC): 5 Lower Body Dressing (FIM): 4 Lower Body Dressing (QC): 4 On/Off Footwear (QC): 4 Toileting (FIM): 4 (CGA in stance.) Toileting Hygiene (QC): 4 Transfers (B, C, W/C) (FIM): 4 Toilet/Commode Transfer (FIM): 4 Toilet Transfer (QC): 4 Pt. agrees to treatment. Declines showering as he had already showered last night. Agrees to ambulate to bathroom and toilet, and then transfer to chair at sink to perform grooming and dressing tasks. Pt. educated and issued AE while in rehab. Able to thread pants with min assist using DS, and able to don socks using sock aide with min assist. Ambulated with CGA and walker to therapy gym. Required several brief rest breaks during treatment. Completed bilateral UE exercises x 15 reps each x 2 lb. dumbbells x 5 exercises in all planes to increase overall strength. All needs met and PT took over after this in therapy gym. Tolerated treatment well. Education OT Patient Education: Correct positioning, Exercise program, Modified ADL techniques, Progress toward Goal/Update tx plan, Purpose of tx/functional activities, Reviewed precautions, Rehab process, Transfer techniques, Use of adapted equipment Teaching Recipient: Patient Teaching Methods: Demonstration, Discussion Response to Teaching: Verbalize Understanding, Return Demonstration OT Short Term Goals Short Term Goals Time Frame: Jul 07, 2019 Bathing(FIM): 4 Upper Body Dressing(FIM): 5 Lower Body Dressing(FIM): 4 Toileting(FIM): 4 Toilet/Commode Transfer(FIM): 4 Additional Short Term Goals: 1-Demonstrate ADL Tasks, 2-Verbalize Understanding, 3-ImproveStrength/Tessie 1=Demonstrate adherence to instructed precautions during ADL tasks. 2=Patient will verbalize/demonstrate understanding of assistive devices/modifications for ADL. 3=Patient will improve strength/tolerance for activity to enable patient to perform ADL's. OT Senior Media Buyer Goals Senior Media Buyer Goals Time Frame: Jul 21, 2019 Eating (FIM): 6 Eating (QC): 6 Groomin Oral Hygiene (QC): 6 Bathing(FIM): 5 Shower/Bathe Self (QC): 5 Upper Body Dressing(FIM): 6 Upper Body Dressing (QC): 6 Lower Body Dressing(FIM): 6 Lower Body Dressing (QC): 6 On/Off Footwear (QC): 6 Toileting(FIM): 6 Toileting Hygiene (QC): 6 Toilet/Commode Transfer(FIM): 6 Toilet/Commode Transfer (QC): 6 Shower Transfer(FIM): 5 Additional Goals: 1-Demonstrate ADL Tasks, 2-Verbalize Understanding, 3-I mproveStrength/Tessie 1=Demonstrate adherence to instructed precautions during ADL tasks. 2=Patient will verbalize/demonstrate understanding of assistive devices/modifications for ADL. 3=Patient will improve strength/tolerance for activity to enable patient to perform ADL's. OT Education/Plan Problem List/Assessment Assessment: Decreased Activ Tolerance, Decreased UE Strength, Dependent Transfers, Impaired Funct Balance, Impaired I ADL's, Impaired Self-Care Skills Pt to benefit from skilled OT intervention for ADL training, transfers, strengthening, and home safety education to increase level of independence and allow safe discharge home. Discharge Recommendations Plan/Recommendations: Continue POC Therapy Discharge Recommendati: Post Acute OT Equpiment Recommendations-D/C: Hip Kit Treatment Plan/Plan of Care Treatment,Training & Education: Yes Patient would benefit from OT for education, treatment and training to promote independence in ADL's, mobility, safety and/or upper extremity function for ADL's. Plan of Care: ADL Retraining, Functional Mobility, Group Exercise/Act as Ind, UE Funct Exercise/Act Treatment Duration: Jul 21, 2019 Frequency: At least 5 of 7 days/Wk (IRF) Estimated Hrs Per Day: 1.5 hours per day Rehab Potential: Good Time/GCodes Start Time: 08:30 Stop Time: 09:30 Total Time Billed (hr/min): 60 Billed Treatment Time 1, ADL x 45minutes, Ex x 15minutes SO MALONE OT Jun 26, 2019 14:08
--- NOTE | 2019-06-26 14:12 | Speech Therapy Daily Note ---
Speech Daily Progress Note Subjective Date Seen by Provider: Jun 26, 2019 Time Seen by Provider: 00:30 The patient was resting in bed when I entered his room. He was awake and alert. Objective The patient completed a series of memory questions of general information with 80% accuracy given min to mod verbal cues. Assessment Assessment Current Status: Good Progress Treatment Plan Continue Plan of Care Communication Comprehension: 6 Expression: 6 Social Cognition Social Interaction: 7 Problem Solvin Memory: 4 Speech Short Term Goals Short Term Goals Short Term Goals 1) The patient will complete memory tasks with 90% or greater accuracy given minimal cues. 2) The patient will complete problem solving tasks with 90% or greater accuracy given minimal cues. 3) The patient will complete safety awareness tasks with 90% or greater accuracy given minimal cues. Speech Commercial Lines Account Executive Goals Commercial Lines Account Executive Goals The patient will improve cognitive function in order to return to his prior living situation safely. Speech-Plan Patient/Family Goals Patient/Family Goals: The patient plans on returning home post rehab. Treatment Plan Speech Therapy Treatment Plan: Continue Plan of Care The patient exhibited improved clarity this date. Treatment Duration: Jun 30, 2019 Frequency: 5 times per week Estimated Hrs Per Day: .5 hour per day Rehab Potential: Fair Barriers to Learning: Patient's SLUMS within the moderate dementia level on 06/23/19. Pt/Family Agrees to Plan: Yes Safety Risks/Education Teaching Recipient: Patient Teaching Methods: Discussion Response to Teaching: Verbalize Understanding Education Topics Provided: Safety within his room and utilization of the call light as needed. Time Speech Therapy Time In: 11:30 Speech Therapy Time Out: 12:00 Total Billed Time: 30 Billed Treatment Time [address] Jun 26, 2019 14:12
--- NOTE | 2019-06-26 14:36 | Occupational Ther Daily Note ---
OT Current Status-Daily Note Subjective Pt. reports 7/10 pain in right hip. Nursing notified. Appearance Pt. up in chair. Agrees to treatment. Mental Status/Objective Patient Orientation: Person, Place Therapy Code Descriptions/Definitions Functional [place] Measure: 0=Not Assessed/NA 4=Minimal Assistance 1=Total Assistance 5=Supervision or Setup 2=Maximal Assistance 6=Modified [place] 3=Moderate Assistance 7=Complete [place] ADL-Treatment Therapy Code Descriptions/Definitions Functional [place] Measure: 0=Not Assessed/NA 4=Minimal Assistance 1=Total Assistance 5=Supervision or Setup 2=Maximal Assistance 6=Modified [place] 3=Moderate Assistance 7=Complete [place] Therapy Quality Codes: 6 Independent with activity with or without an assistive device 5 Patient requires set up or clean up by helper. Patient completes activity by themselves 4 Supervision or touching assist (CGA). [place] provide cues , steadying assist 3 The helper provides less than half the effort to complete the activity 2 The helper provides more than half the effort to complete the activity 1 Dependent. The helper does all the effort to complete an activity 7 Patient refused to complete or attempt activity 9 The patient did not perform the activity before the current illness or injury 88 Not attempted due to Medical conditions or safety concerns Toileting (FIM): 4 (CGA in stance.) Toileting Hygiene (QC): 4 Transfers (B, C, W/C) (FIM): 4 Toilet/Commode Transfer (FIM): 4 Toilet Transfer (QC): 4 Other Treatment Pt. toileted in room and then ambulated to dining area. Requests rest break in chair in dining area, approximately 5 minutes. After rest break, ambulated further to therapy gym. Talked with pt. about goals for discharge home. Pt. verbalizes that he will need to be independent with daily skills using AE. Pt. also encouraged that if he would like to sit in chair at night, to ask nursing assist and they will assist him to chair. Pt. verbalizes that when he lays in bed too long, his pain increases. At this time, PT took over for pt. All needs met. Education OT Patient Education: Correct positioning, Modified ADL techniques, Progress toward Goal/Update tx plan, Purpose of tx/functional activities, Reviewed precautions, Rehab process, Transfer techniques Teaching Recipient: Patient Teaching Methods: Demonstration, Discussion Response to Teaching: Verbalize Understanding, Return Demonstration OT Short Term Goals Short Term Goals Time Frame: Jul 07, 2019 Bathing(FIM): 4 Upper Body Dressing(FIM): 5 Lower Body Dressing(FIM): 4 Toileting(FIM): 4 Toilet/Commode Transfer(FIM): 4 Additional Short Term Goals: 1-Demonstrate ADL Tasks, 2-Verbalize Understanding, 3-ImproveStrength/Tessie 1=Demonstrate adherence to instructed precautions during ADL tasks. 2=Patient will verbalize/demonstrate understanding of assistive devices/modifications for ADL. 3=Patient will improve strength/tolerance for activity to enable patient to perf orm ADL's. OT Dominatrix Goals Snf Goals Time Frame: Jul 21, 2019 Eating (FIM): 6 Eating (QC): 6 Groomin Oral Hygiene (QC): 6 Bathing(FIM): 5 Shower/Bathe Self (QC): 5 Upper Body Dressing(FIM): 6 Upper Body Dressing (QC): 6 Lower Body Dressing(FIM): 6 Lower Body Dressing (QC): 6 On/Off Footwear (QC): 6 Toileting(FIM): 6 Toileting Hygiene (QC): 6 Toilet/Commode Transfer(FIM): 6 Toilet/Commode Transfer (QC): 6 Shower Transfer(FIM): 5 Additional Goals: 1-Demonstrate ADL Tasks, 2-Verbalize Understanding, 3- ImproveStrength/Tessie 1=Demonstrate adherence to instructed precautions during ADL tasks. 2=Patient will verbalize/demonstrate understanding of assistive devices/modifications for ADL. 3=Patient will improve strength/tolerance for activity to enable patient to perform ADL's. OT Education/Plan Problem List/Assessment Assessment: Decreased Activ Tolerance, Impaired I ADL's, Impaired Self-Care Skills Pt to benefit from skilled OT intervention for ADL training, transfers, strengthening, and home safety education to increase level of independence and allow safe discharge home. Discharge Recommendations Plan/Recommendations: Continue POC Equpiment Recommendations-D/C: Hip Kit Treatment Plan/Plan of Care Treatment,Training & Education: Yes Patient would benefit from OT for education, treatment and training to promote independence in ADL's, mobility, safety and/or upper extremity function for ADL's. Plan of Care: ADL Retraining, Functional Mobility, Group Exercise/Act as Ind, UE Funct Exercise/Act Treatment Duration: Jul 21, 2019 Frequency: At least 5 of 7 days/Wk (IRF) Estimated Hrs Per Day: 1.5 hours per day Agreement: Yes Rehab Potential: Good Time/GCodes Start Time: 13:00 Stop Time: 13:30 Total Time Billed (hr/min): 30 Billed Treatment Time 1, ADL x 15minutes, FA x 15minutes SO MALONE OT Jun 26, 2019 14:36
--- NOTE | 2019-06-26 14:43 | Physical Therapy Daily Note ---
PT Daily Note-Current Subjective Agreeable toPT. Reports he is tired this afternoon. Transfers Therapy Code Descriptions/Definitions Functional [place] Measure: 0=Not Assessed/NA 4=Minimal Assistance 1=Total Assistance 5=Supervision or Setup 2=Maximal Assistance 6=Modified [place] 3=Moderate Assistance 7=Complete [place] Therapy Quality Codes: 6 Independent with activity with or without an assistive device 5 Patient requires set up or clean up by helper. Patient completes activity by themselves 4 Supervision or touching assist (CGA). [place] provide cues , steadying a ssist 3 The helper provides less than half the effort to complete the activity 2 The helper provides more than half the effort to complete the activity 1 Dependent. The helper does all the effort to complete an activity 7 Patient refused to complete or attempt activity 9 The patient did not perform the activity before the current illness or injury 88 Not attempted due to Medical conditions or safety concerns Sit to/from Stand: 4 (Cues for sequencing andhand placement. ) Sit to stand x 5 reps to ensure consistency with sequencing. Weight Bearing Right Lower Extremity: Right Weight Bearing/Tolerated Left Lower Extremity: Left Weight Bearing/Tolerated Gait Training Does the Patient Walk?: Yes Gait (FIM): 2 Distance (FIM): 4=820-14 ft Distance: 100 ft x 4 Gait Assistive Device: FWW short, choppy steps with difficulty bearing weight through the left LE; tends to walk on his toes on the left due to painful WB Exercises Seated Therapy Exercises: Ankle pumps, Sit to stand, Long arc quads, Shoulder Abd, Hip abd/add Seated Reps: 12 (To promote LE strength for functional transfer and gait progression) Assessment Current Status: Good Progress Sit to stand transfers have improved since last seen by this therapist. Gait p attern still altered with need for cues for safety. PT Short Term Goals Short Term Goals Time Frame: Jul 07, 2019 Gait (FIM): 4 Distance (FIM): 3=150 ft Gait Distance Comment: 150' Gait Level of Assist: 4 Gait Assistive Device: FWW Stairs (FIM): 2 # of Steps: 4 Stairs Level of Assist: 4 PT Bible Reader Goals Bible Reader Goals PT Bible Reader Goals Time Frame: Jul 21, 2019 Transfers (B,C,W/C) (FIM): 6 Sit to Lying (QC): 6 Lying-Sitting on Side/Bed(QC): 6 Sit to Stand (QC): 6 Rollin Roll Left to Right (QC): 6 Chair/[id number]-Ifhhl Xfer(QC): 6 Car Transfer (QC): 6 Does the Patient Walk: Yes Gait (FIM): 6 Gait distance (FIM): 3=150 ft Distance: 250' Walk 10 feet (QC): 6 Walk 10ft-Uneven Surface(QC): 6 Walk 50ft with 2 Turns (QC): 6 Walk 150 ft (QC): 6 Gait Level of Assist: 6 Gait Assistive Device: FWW Stairs (FIM): 6 # of Steps: 12 1 Step (curb) (QC): 6 4 Steps (QC): 6 12 Steps (QC): 6 Stairs Level Of Assist: 6 Picking up an Object (QC): 6 PT Plan Problem List Problem List: Activity Tolerance, Functional Strength, Safety, Balance, Gait, Transfer, Bed Mobility Treatment/Plan Treatment Plan: Continue Plan of Care Treatment Plan: Bed Mobility, Education, Functional Activity Tessie, Functional Strength, Group Therapy, Gait, Safety, Therapeutic Exercise, Transfers Treatment Duration: Jul 21, 2019 Frequency: At least 5 of 7 days/Wk (IRF) Estimated Hrs Per Day: 1.5 hours per day Patient and/or Family Agrees t: Yes Safety Risks/Education Patient Education: Transfer Techniques, Safety Issues Teaching Recipient: Patient Teaching Methods: Demonstration, Discussion Response to Teaching: Reinforcement Needed Discharge Recommendations Therapy Discharge Recommendati: Post Acute PT Time/GCodes Time In: 1330 Time Out: 1400 Total Billed Treatment Time: 30 Total Billed Treatment visit EX 15 GT 15 DANNA QUESADA PT Jun 26, 2019 14:43
--- NOTE | 2019-06-26 14:52 | NUR ---
Patient sitting in the chair during his SVN BT and tolerated it well; no distress was noted at this time; patient is on RA
[2019-06-26 15:38] VITALS: BP 99/61
--- NOTE | 2019-06-26 16:19 | NUR ---
Initial assessment This worker met with patient to complete initial assessment. Patient admitted to ARU on 06/23/19 with a diagnosis of left hip fracture s/p intramedullary nail by Dr. Richards. Prior to hospitalization the patient was living with his spouse in [place], [place]. Patient reports they live in a single story home with 2 entry steps. He was independent with ADLs and functional mobility. He reports he has a walker at home but was not using it. Patient identifies Laurence Watts (spouse) as he primary contact; phone number is . Patient reports PCP is Dr. Rosalinda Watts. Patient confirmed his primary insurance provider as Medicare with [employer] supplement. Preferred pharmacy is [facility] in [place], [place]. The purpose of the weekly team conference and average LOS on the rehab unit were discussed and patient verbalized understanding. Patient's discharge goal is to return home with his spouse.
--- NOTE | 2019-06-26 20:18 | PM&R Progress Note ---
Subjective HPI/CC On Admission Date Seen by Provider: Jun 26, 2019 Time Seen by Provider: 09:00 CC: Debility following left hip fracture HPI: This is a 78yoWM clinic pt of [facility] with sever comorbidities who had an uncomplicated left hip fracture repair by Dr. Richards on Wednesday after sustaining a fall at his daughters office after missing a step on the stairs an subsequently was repaired but had some flash pulmonary edema requiring transfer to the ICU and lactic acid elevation with acute sinusitis requiring Zosyn antibiotics empirically along with IV Lasix with close monitoring and severe delirium requiring a live sitter since he was such a fall risk and received two units of blood with good improvement in Hgb of 7.5 and decreased platelet counts so Dr. Alvarado, Dr Nettles, Dr. Foreman and Dr. Richards agreed with plan to transfer to ICU and he was improving significantly so and delirium was improved to the point to where he was able to DC to inpatient rehab and continue his intensive therapies which may require 15/7 intensity because of the delirium but will try our best to initiate. Weight bearing is tolerated per Dr. Richards and we will monitor bowel function, and bladder function and monitor labs in the meantime. 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 Subjective/Events-last exam Hgb 8.9 Potassium 3.5 Had a loose BM this morning Bedchair alarm maintain Life vest may be initiated for 90 days and may end up requiring a defibrillator Tylenol given for pain Confused at night a bit more Dizziness is improved Weakness is improved Confusion is clearing Blood sugars reviewed Conferred with RN Reviewed therapy notes Check meds and labs Nebulizer treatments are tolerated Pain is controlled Delirium much improved Review of Systems General: Fatigue Pulmonary: Cough Objective Exam Vital Signs Vital Signs Date Time Temp Pulse Resp B/P (MAP) Pulse Ox O2 Delivery O2 Flow Rate FiO2 06/26/19 18:44 Room Air 06/26/19 18:39 91 06/26/19 15:38 36.2 74 14 99/61 Capillary Refill : General Appearance: No Apparent Distress, WD/WN, Chronically ill HEENT: PERRL/EOMI, Normal ENT Inspection, Pharynx Normal, Moist Mucous Membranes Neck: Full Range of Motion, Normal Inspection, Non Tender, Supple Respiratory: Chest Non Tender, No Accessory Muscle Use, No Respiratory Distress, Crackles (bases), Decreased Breath Sounds Cardiovascular: Regular Rate, Rhythm, No Edema, No Gallop, No JVD, No Murmur Gastrointestinal: Normal Bowel Sounds, No Organomegaly, No Pulsatile Mass, Non Tender, Soft Back: Normal Inspection, No CVA Tenderness, No Vertebral Tenderness Extremity: Normal Capillary Refill, Normal Inspection, Normal Range of Motion (except left leg), Non Tender, No Calf Tenderness, No Pedal Edema Neurologic/Psychiatric: Alert, Oriented x3, No Motor/Sensory Deficits, Normal 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 FIM Transfers Therapy Code Descriptions/Definitions Functional [place] Measure: 0=Not Assessed/NA 4=Minimal Assistance 1=Total Assistance 5=Supervision or Setup 2=Maximal Assistance 6=Modified [place] 3=Moderate Assistance 7=Complete [place] Therapy Quality Codes: 6 Independent with activity with or without an assistive device 5 Patient requires set up or clean up by helper. Patient completes activity by themselves 4 Supervision or touching assist (CGA). [place] provide cues , steadying assist 3 The helper provides less than half the effort to complete the activity 2 The helper provides more than half the effort to complete the activity 1 Dependent. The helper does all the effort to complete an activity 7 Patient refused to complete or attempt activity 9 The patient did not perform the activity before the current illness or injury 88 Not attempted due to Medical conditions or safety concerns Transfers (B, C, W/C) (FIM): 4 Scootin Rollin Roll Left to Right (QC): 3 Supine to/from Sit: 4 Sit to/from Stand: 4 (Cues for sequencing andhand placement. ) Sit to Lying (QC): 3 Sit to Stand (QC): 3 Chair/[id number] Xfer(QC): 3 Bed to/from Chair: 4 Car Transfer (QC): 3 Gait Training Does the Patient Walk?: Yes Gait (FIM): 2 Distance (FIM): 0=502-97 ft Distance: 100 ft x 4 Walk 10 feet (QC): 4 Walk 50 ft with 2 Turns(QC): 88 Walk 150 ft (QC): 88 Walking 10ft/uneven surface-QC: 4 Gait Level of Assist: 4 Gait Persons Needed: 1 Gait Assistive Device: FWW Stair Training Stairs (FIM): 1 #of Steps: 1 1 Step (curb) (QC): 3 4 Steps (QC): 88 12 Steps (QC): 88 Level of Assist: 3 Mental Status/Objective Comprehension: 6 Expression: 6 Social Interaction: 7 Problem Solvin Memory: 4 ADL-Treatment Feedin Groomin Oral Hygiene (QC): 5 Bathin Shower/Bathe Self (QC): 3 Upper Extremity Dressin Upper Body Dressing (QC): 5 Lower Extremity Dressin Lower Body Dressing (QC): 4 On/Off Footwear (QC): 4 Toiletin (CGA in stance.) Toileting Hygiene (QC): 4 Toilet/Commode Transfer: 4 Toilet Transfer (QC): 4 Shower: 0 Assessment/Plan Assessment and Plan Assess & Plan/Chief Complaint Assessment: Left femur fracture s/p fall after missed 1 step on stairs s/p repair POD # 8 Acute and severe delirium with severe insomnia x 5 days now resolved with Zyprexa at night will decrease from 5mg at night to 2.5mg to wean off Sepsis due to URI and acute sinusitis and bronchitis placed on Zosyn and changed to PO abx yesterday Flash pulmonary edema s/p Lasix IV may need to change to PO? 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 diff history h/o ARF while at [facility] for ALL induction PUD Remission for acute lymphocytic leukemia for [address] Perez Ischemic cardiomyopathy with improvement in ejection fraction from 30 percent to 55 percent due to Entresto management but now decreased since acute illness so may need life vest and defib Plan: IRF DVT PPx per Dr Nettles Monitor for ACS and CHF Appreciate Dr Foreman and Dr Richards and Dr Alvarado and Dr Nettles Change to PO abx soon Staple removal next Wednesday (1) Fracture of femur, intertrochanteric, left, closed Status: Acute Qualifiers: Encounter type: subsequent encounter (2) Non-ST elevation myocardial infarction (NSTEMI) Status: Acute (3) CAD (coronary artery disease) Status: Chronic Qualifiers: Coronary Disease-Associated Artery/Lesion type: [place] artery [place] vs. transplanted heart: [place] heart Associated angina: without angina Qualified Codes: I25.10 - Atherosclerotic heart disease of [place] coronary artery without angina pectoris (4) ALL (acute lymphocytic leukemia) Status: Chronic (5) Neuropathy Status: Chronic (6) Renal insufficiency Status: Chronic (7) Hypertension Status: Chronic Qualifiers: Hypertension type: essential hypertension Qualified Codes: I10 - Essential (primary) hypertension (8) Sciatic neuropathy Status: Chronic (9) Ischemic cardiomyopathy Status: Chronic (10) Postoperative pain Status: Acute (11) Postoperative anemia Status: Acute (12) History of Clostridium difficile infection Status: Chronic (13) COPD (chronic obstructive pulmonary disease) Status: Chronic Qualifiers: COPD type: unspecified COPD Qualified Codes: J44.9 - Chronic obstructive pulmonary disease, unspecified (14) Acute delirium Status: Acute (15) Sepsis Status: Resolved Resolution Date/Time: 06/24/19 @ 07:04 (16) Orthostasis Status: Chronic (17) Flash pulmonary edema Status: Resolved Resolution Date/Time: 06/24/19 @ 07:04 (18) Troponin level elevated Status: Resolved Resolution Date/Time: 06/24/19 @ 07:04 (19) COPD with acute exacerbation Status: Resolved Resolution Date/Time: 06/24/19 @ 07:04 (20) Elevated brain natriuretic peptide (BNP) level Status: Resolved Resolution Date/Time: 06/24/19 @ 07:04 (21) Transfusion of blood during current hospitalization Status: Resolved Resolution Date/Time: 06/24/19 @ 07:04 (22) Elevated lactic acid level Status: Resolved Resolution Date/Time: 06/24/19 @ 07:04 (23) Fever Status: Resolved Resolution Date/Time: 10/18/18 @ 12:40 (24) Shortness of breath Status: Resolved Resolution Date/Time: 10/18/18 @ 12:40 (25) Cough Status: Acute (26) Pneumonia Status: Acute (27) Non-ST elevation myocardial infarction (NSTEMI) Status: Acute (28) Dehydration, moderate Status: Resolved Resolution Date/Time: 10/18/18 @ 12:41 (29) Severe anemia Status: Acute ADALBERTO ARENAS DO Jun 26, 2019 20:18
[2019-06-26] MEDS: MONTELUKAST 10 MG (SINGULAIR) TAB PO SCH (21:01)
[2019-06-26] MEDS: MELATONIN 3 MG TABLET PO PRN (21:01)
[2019-06-26] MEDS: OLANZapine 5 MG ODT (ZyPREXA ZYDIS) PO SCH (21:06)
[2019-06-27] MEDS: inSUlin ASPART (NovoLOG) 1 UNIT/0.01 ML (CHARGE PER UNIT) SC SCH ×4 (05:42→22:38)
[2019-06-27 06:17] VITALS: BP 99/61
[2019-06-27] MEDS: LACTOBACILLUS Acidoph/Bulgar 1 GM (LACTINEX) PACKET PO SCH ×4 (06:36→22:39)
[2019-06-27] MEDS: RT-ALBUTEROL/IPRATROPIUM 3 ML (DUONEB) VIAL INH SCH (07:29)
[2019-06-27] MEDS: RT-ADVAIR HFA 115/21 MCG PER PUFF IH SCH ×2 (07:30→21:28)
--- NOTE | 2019-06-27 09:03 | Cardiology Progress Note ---
Subjective Date Seen by Provider: Jun 27, 2019 Time Seen by Provider: 08:20 Subjective/Events-last exam Patient is sitting up in bed, no new complaints. Denies any chest pain or palpitations. Review of Systems General: No Chills, No Night Sweats, No Fatigue, No Malaise, No Appetite, No Other HEENT: No Head Aches, No Visual Changes, No Eye Pain, No Ear Pain, No Dysph trinh, No Sinus Congestion, No Post Nasal Drip, No Sore Throat, No Other Pulmonary: No Dyspnea, No Cough, No Pleuritic Chest Pain, No Other Cardiovascular: No: Chest Pain, Palpitations, Orthopnea, Paroxysmal Noc. Dyspnea, Edema, Lt Headedness, Other Objective-Cardiology Exam Last Set of Vital Signs Vital Signs 06/28/19 06/28/19 05:58 09:30 Temp 36.6 Pulse 87 Resp 20 B/P (MAP) 119/64 Pulse Ox 97 O2 Delivery Room Air Capillary Refill : I&O Intake and Output 06/28/19 00:00 Intake Total 1675 ml Output Total 1750 ml Balance -75 ml Intake Oral 1675 ml Output Urine Total 1750 ml # Voids 1 # Bowel Movements 1 General: Alert, Oriented X3, Cooperative, No Acute Distress HEENT: Atraumatic Neck: Supple Lungs: Clear to Auscultation, Normal Air Movement Heart: Regular Rate, Normal S1, Normal S2, No Murmurs Extremities: No Clubbing, No Cyanosis, No Edema, Normal Pulses Skin: No Rashes, No Breakdown, No Significant Lesion Neuro: Normal Speech, Sensation Intact Results Lab Laboratory Tests 06/28/19 10:26 A/P-Cardiology Admission Diagnosis Left femur fx Anemia CAD CHF Assessment/Plan Left femur fracture, post surgical repair done on June 19, 2019. Undergoing rehabilitation. Continue to monitor Anemia, mild thrombocytopenia, managed by Dr. Perez Status post respiratory failure, better, responded to diuretics. Congestive heart failure, acute on chronic left ventricular systolic dysfunction, secondary to chemotherapy and coronary artery disease, ischemic and nonischemic cardiomyopathy, echocardiogram showed ejection fraction 25-30 percent, continue on Coreg and Entresto. Monitor tolerance and response closely. May consider life vest for primary prevention of sudden cardiac . History of orthostatic dizziness and hypotension, near-syncope, no current syncopal episodes or dizziness reported. Coronary artery disease status post CABG x3 in 2004, cardiac catheterization in April 2014 which showed patent bypass grafts with small vessel disease distally mainly in the LAD system that was receiving retrograde collateral, treated conservatively. Cardiac catheterization was done on November 07, 2014 showing small vessel disease, patent MAHONEY to LAD, vein graft to the circumflex artery and vein graft to the right coronary artery, repeat cardiac catheterization was done in August 2016 showing patent MAHONEY to LAD, vein graft to the obtuse marginal branch with sluggish flow in the [place] circumflex artery, patent vein graft to the right coronary artery, the proximal [place] coronary arteries appear slightly worse with occlusion of the left main, the LAD and diagonal artery are getting collaterals from the right system. He has been asymptomatic. Continue to monitor. Mild bilateral carotid stenosis, ultrasound was done in March 2018. Continue to monitor History of esophageal spasm, EGD by Dr. Manzanares , reporting improvement. 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 Nettles, continue to monitor. 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 Nettles. Hypertension, controlled on current medication, continue to monitor Hyperlipidemia, continue to monitor lipids. Managed by Dr. Watts. Diabetes mellitus, managed and followed by primary care physician. History of atrial flutter status post ablation in 2004, currently in sinus rhythm. Continue to monitor Clinical Quality Measures DVT/VTE Risk/Contraindication: Risk Factor Score Per Nursin RFS Level Per Nursing on Admit: 4+=Very High Supervisory-Addendum Brief Supervisory Addendum Participated in pt care: history, MDM, physical Personally performed: exam, history, MDM Care discussed with: BASSAM OAKES Jun 27, 2019 09:03 CHRISTOPHER TANG MD Jun 28, 2019 11:29
[2019-06-27] MEDS: SENNA W/DOCUSATE (SENOKOT S) TABLET PO SCH ×2 (09:19→22:42)
[2019-06-27 09:22] VITALS: BP_SYST 106; BP_SYST 116; BP_DIAS 57
[2019-06-27] MEDS: ACETAMINOPHEN 500 MG TAB (TYLENOL) PO PRN (09:23)
[2019-06-27] MEDS: SERTRALINE 100 MG (ZOLOFT) TAB PO SCH (09:24)
[2019-06-27] MEDS: LORATADINE (CLARITIN) 10 MG TAB PO SCH (09:24)
[2019-06-27] MEDS: CEFDINIR 300 MG (OMNICEF) CAP PO SCH ×2 (09:24→22:38)
[2019-06-27] MEDS: SACUBITRIL/VALSARTAN 24/26 MG (ENTRESTO) TABLET PO SCH ×2 (09:24→22:38)
[2019-06-27] MEDS: FUROSEMIDE 20 MG (LASIX) TAB PO SCH (09:24)
[2019-06-27] MEDS: CARVEDILOL 3.125 MG (COREG) TABLET PO SCH ×3 (09:24→22:38)
[2019-06-27] MEDS: FLUTICASONE NASAL SPRAY (FLONASE) 16 GM BTL NS SCH (09:25)
[2019-06-27] MEDS: PANTOPRAZOLE 40 MG (PROTONIX) TAB PO SCH (09:25)
--- NOTE | 2019-06-27 09:41 | PM&R Progress Note ---
Subjective HPI/CC On Admission Date Seen by Provider: Jun 27, 2019 Time Seen by Provider: 09:00 CC: Debility following left hip fracture HPI: This is a 78yoWM clinic pt of [facility] with sever comorbidities who had an uncomplicated left hip fracture repair by Dr. Richards on Wednesday after sustaining a fall at his daughters office after missing a step on the stairs an subsequently was repaired but had some flash pulmonary edema requiring transfer to the ICU and lactic acid elevation with acute sinusitis requiring Zosyn antibiotics empirically along with IV Lasix with close monitoring and severe delirium requiring a live sitter since he was such a fall risk and received two units of blood with good improvement in Hgb of 7.5 and decreased platelet counts so Dr. Alvarado, Dr Nettles, Dr. Foreman and Dr. Richards agreed with plan to transfer to ICU and he was improving significantly so and delirium was improved to the point to where he was able to DC to inpatient rehab and continue his intensive therapies which may require 15/7 intensity because of the delirium but will try our best to initiate. Weight bearing is tolerated per Dr. Richards and we will monitor bowel function, and bladder function and monitor labs in the meantime. 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 Subjective/Events-last exam Restless at night and the bed alarm kept going off so we changed that to only have a very low setting instead of the high setting to decrease the interruptions. Set off the alarm a few times last night. Tylenol along with Lortab for pain. BP 99/61 Coreg is set to be given so will touch base with cardiology. Crackles in the lungs still remain, IS maintained. Cefdinir maintained to complete antibiotics for sinusitis and bronchitis. Overall participating pretty well. Dizziness is improved Weakness is improved Confusion is clearing Blood sugars reviewed Conferred with RN Reviewed therapy notes Check meds and labs Nebulizer treatments are tolerated Pain is controlled Delirium much improved Review of Systems General: Fatigue Musculoskeletal: leg pain Objective Exam Vital Signs Vital Signs Date Time Temp Pulse Resp B/P (MAP) Pulse Ox O2 Delivery O2 Flow Rate FiO2 06/27/19 14:42 36.3 73 20 115/65 97 Room Air Capillary Refill : General Appearance: No Apparent Distress, WD/WN, Chronically ill HEENT: PERRL/EOMI, Normal ENT Inspection, Pharynx Normal, Moist Mucous Membranes Neck: Full Range of Motion, Normal Inspection, Non Tender, Supple Respiratory: Chest Non Tender, No Accessory Muscle Use, No Respiratory Distress, Crackles (bases), Decreased Breath Sounds Cardiovascular: Regular Rate, Rhythm, No Edema, No Gallop, No JVD, No Murmur Gastrointestinal: Normal Bowel Sounds, No Organomegaly, No Pulsatile Mass, Non Tender, Soft Back: Normal Inspection, No CVA Tenderness, No Vertebral Tenderness Extremity: Normal Capillary Refill, Normal Inspection, Normal Range of Motion (except left leg), Non Tender, No Calf Tenderness, No Pedal Edema Neurologic/Psychiatric: Alert, Oriented x3, No Motor/Sensory Deficits, Normal 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 FIM Transfers Therapy Code Descriptions/Definitions Functional [place] Measure: 0=Not Assessed/NA 4=Minimal Assistance 1=Total Assistance 5=Supervision or Setup 2=Maximal Assistance 6=Modified [place] 3=Moderate Assistance 7=Complete [place] Therapy Quality Codes: 6 Independent with activity with or without an assistive device 5 Patient requires set up or clean up by helper. Patient completes activity by themselves 4 Supervision or touching assist (CGA). [place] provide cues , steadying assist 3 The helper provides less than half the effort to complete the activity 2 The helper provides more than half the effort to complete the activity 1 Dependent. The helper does all the effort to complete an activity 7 Patient refused to complete or attempt activity 9 The patient did not perform the activity before the current illness or injury 88 Not attempted due to Medical conditions or safety concerns Transfers (B, C, W/C) (FIM): 4 Scootin Rollin Roll Left to Right (QC): 3 Supine to/from Sit: 4 Sit to/from Stand: 4 (Cues for sequencing andhand placement. ) Sit to Lying (QC): 3 Sit to Stand (QC): 3 Chair/[id number]-[id number] Xfer(QC): 3 Bed to/from Chair: 4 Car Transfer (QC): 3 Gait Training Does the Patient Walk?: Yes Gait (FIM): 2 Distance (FIM): 5=541-01 ft Distance: 100 ft x 4 Walk 10 feet (QC): 4 Walk 50 ft with 2 Turns(QC): 88 Walk 150 ft (QC): 88 Walking 10ft/uneven surface-QC: 4 Gait Level of Assist: 4 Gait Persons Needed: 1 Gait Assistive Device: FWW Stair Training Stairs (FIM): 1 #of Steps: 1 1 Step (curb) (QC): 3 4 Steps (QC): 88 12 Steps (QC): 88 Level of Assist: 3 Mental Status/Objective Comprehension: 6 Expression: 6 Social Interaction: 7 Problem Solvin Memory: 4 ADL-Treatment Feedin Groomin Oral Hygiene (QC): 5 Bathin Shower/Bathe Self (QC): 3 Upper Extremity Dressin Upper Body Dressing (QC): 5 Lower Extremity Dressin Lower Body Dressing (QC): 4 On/Off Footwear (QC): 4 Toiletin (CGA in stance.) Toileting Hygiene (QC): 4 Toilet/Commode Transfer: 4 Toilet Transfer (QC): 4 Shower: 0 Assessment/Plan Assessment and Plan Assess & Plan/Chief Complaint Assessment: Left femur fracture s/p fall after missed 1 step on stairs s/p repair POD # 9 Acute and severe delirium with severe insomnia x 5 days now resolved with Zyprexa at night will decrease from 5mg at night to 2.5mg to wean off Sepsis due to URI and acute sinusitis and bronchitis placed on Zosyn and changed to PO abx yesterday Flash pulmonary edema s/p Lasix IV may need to change to PO? 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 diff history h/o ARF while at [facility] for ALL induction PUD Remission for acute lymphocytic leukemia for [address] Perez Ischemic cardiomyopathy with improvement in ejection fraction from 30 percent to 55 percent due to Entresto management but now decreased since acute illness so may need life vest and defib Plan: IRF DVT PPx per Dr Nettles Monitor for ACS and CHF Appreciate Dr Foreman and Dr Richards and Dr Alvarado and Dr Nettles Change to PO abx soon Staple removal next Wednesday Minimize bed alarm interruptions Change Nebs to Albuterol only (1) Fracture of femur, intertrochanteric, left, closed Status: Acute Qualifiers: Encounter type: subsequent encounter (2) Non-ST elevation myocardial infarction (NSTEMI) Status: Acute (3) CAD (coronary artery disease) Status: Chronic Qualifiers: Coronary Disease-Associated Artery/Lesion type: [place] artery [place] vs. transplanted heart: [place] heart Associated angina: without angina Qualified Codes: I25.10 - Atherosclerotic heart disease of [place] coronary artery without angina pectoris (4) ALL (acute lymphocytic leukemia) Status: Chronic (5) Neuropathy Status: Chronic (6) Renal insufficiency Status: Chronic (7) Hypertension Status: Chronic Qualifiers: Hypertension type: essential hypertension Qualified Codes: I10 - Essential (primary) hypertension (8) Sciatic neuropathy Status: Chronic (9) Ischemic cardiomyopathy Status: Chronic (10) Postoperative pain Status: Acute (11) Postoperative anemia Status: Acute (12) History of Clostridium difficile infection Status: Chronic (13) COPD (chronic obstructive pulmonary disease) Status: Chronic Qualifiers: COPD type: unspecified COPD Qualified Codes: J44.9 - Chronic obstructive pulmonary disease, unspecified (14) Acute delirium Status: Acute (15) Sepsis Status: Resolved Resolution Date/Time: 06/24/19 @ 07:04 (16) Orthostasis Status: Chronic (17) Flash pulmonary edema Status: Resolved Resolution Date/Time: 06/24/19 @ 07:04 (18) Troponin level elevated Status: Resolved Resolution Date/Time: 06/24/19 @ 07:04 (19) COPD with acute exacerbation Status: Resolved Resolution Date/Time: 06/24/19 @ 07:04 (20) Elevated brain natriuretic peptide (BNP) level Status: Resolved Resolution Date/Time: 06/24/19 @ 07:04 (21) Transfusion of blood during current hospitalization Status: Resolved Resolution Date/Time: 06/24/19 @ 07:04 (22) Elevated lactic acid level Status: Resolved Resolution Date/Time: 06/24/19 @ 07:04 (23) Fever Status: Resolved Resolution Date/Time: 10/18/18 @ 12:40 (24) Shortness of breath Status: Resolved Resolution Date/Time: 10/18/18 @ 12:40 (25) Cough Status: Acute (26) Pneumonia Status: Acute (27) Non-ST elevation myocardial infarction (NSTEMI) Status: Acute (28) Dehydration, moderate Status: Resolved Resolution Date/Time: 10/18/18 @ 12:41 (29) Severe anemia Status: Acute ADALBERTO ARENAS DO Jun 27, 2019 09:41
--- NOTE | 2019-06-27 10:40 | NUR ---
Pastoral care visit.
[2019-06-27 10:54] VITALS: BP 129/67
--- NOTE | 2019-06-27 10:58 | Physical Therapy Daily Note ---
PT Daily Note-Current Subjective Patient in recliner pre tx, agrees to PT, has 5/10 pain in left leg. Appearance Patient in bed post tx with nurse call, phone, tray, bed alarm on. Mental Status Patient Orientation: Person, Place, Situation Transfers Therapy Code Descriptions/Definitions Functional [place] Measure: 0=Not Assessed/NA 4=Minimal Assistance 1=Total Assistance 5=Supervision or Setup 2=Maximal Assistance 6=Modified [place] 3=Moderate Assistance 7=Complete [place] Therapy Quality Codes: 6 Independent with activity with or without an assistive device 5 Patient requires set up or clean up by helper. Patient completes activity by themselves 4 Supervision or touching assist (CGA). Rule provide cues , steadying assist 3 The helper provides less than half the effort to complete the activity 2 The helper provides more than half the effort to complete the activity 1 Dependent. The helper does all the effort to complete an activity 7 Patient refused to complete or attempt activity 9 The patient did not perform the activity before the current illness or injury 88 Not attempted due to Medical conditions or safety concerns Transfers (B, C, W/C) (FIM): 4 Scootin Rollin Supine to/from Sit: 4 Sit to/from Stand: 5 Bed to/from Chair: 5 min assist for supine <-> sit, cues for hand placement and positioning Weight Bearing Right Lower Extremity: Right Weight Bearing/Tolerated Left Lower Extremity: Left Weight Bearing/Tolerated Gait Training Gait (FIM): 5 Distance: 150'x2 Gait Level of Assist: 5 Gait Persons Needed: 1 Gait Assistive Device: FWW cues for improved step-through, slow, antalgic Exercises Supine Ex: Ankle pumps, Quad Set, Glut sets, Heel Slides Supine Reps: 20 (LLE) NuStep Minutes: 15 NuStep Workload: 4 Treatments LE exercise, ambulation, bed mobility and transfers Assessment Current Status: Fair Progress improving endurance and stability during ambulation PT Short Term Goals Short Term Goals Time Frame: Jul 07, 2019 Gait (FIM): 4 Distance (FIM): 3=150 ft Gait Distance Comment: 150' Gait Level of Assist: 4 Gait Assistive Device: FWW Stairs (FIM): 2 # of Steps: 4 Stairs Level of Assist: 4 PT Assistant Account Manager Goals Assistant Account Manager Goals PT Assistant Account Manager Goals Time Frame: Jul 21, 2019 Transfers (B,C,W/C) (FIM): 6 Sit to Lying (QC): 6 Lying-Sitting on Side/Bed(QC): 6 Sit to Stand (QC): 6 Rollin Roll Left to Right (QC): 6 Chair/Ivr-we-Vtlnv Xfer(QC): 6 Car Transfer (QC): 6 Does the Patient Walk: Yes Gait (FIM): 6 Gait distance (FIM): 3=150 ft Distance: 250' Walk 10 feet (QC): 6 Walk 10ft-Uneven Surface(QC): 6 Walk 50ft with 2 Turns (QC): 6 Walk 150 ft (QC): 6 Gait Level of Assist: 6 Gait Assistive Device: FWW Stairs (FIM): 6 # of Steps: 12 1 Step (curb) (QC): 6 4 Steps (QC): 6 12 Steps (QC): 6 Stairs Level Of Assist: 6 Picking up an Object (QC): 6 PT Plan Problem List Problem List: Activity Tolerance, Functional Strength, Safety, Balance, Gait, Transfer, Bed Mobility, ROM Treatment/Plan Treatment Plan: Continue Plan of Care Treatment Plan: Bed Mobility, Education, Functional Activity Tessie, Functional Strength, Group Therapy, Gait, Safety, Therapeutic Exercise, Transfers Treatment Duration: Jul 21, 2019 Frequency: At least 5 of 7 days/Wk (IRF) Estimated Hrs Per Day: 1.5 hours per day Patient and/or Family Agrees t: Yes Safety Risks/Education Patient Education: Gait Training, Transfer Techniques, Correct Positioning, Safety Issues Teaching Recipient: Patient Teaching Methods: Demonstration, Discussion Response to Teaching: Reinforcement Needed Time/GCodes Time In: 0930 Time Out: 1015 Total Billed Treatment Time: 45 Total Billed Treatment 1 visit EX 25' GT 20' EMPERATRIZ VERGARA PT Jun 27, 2019 10:58
--- NOTE | 2019-06-27 12:26 | Occupational Ther Daily Note ---
OT Current Status-Daily Note Subjective No pain reported. Appearance Pt. in bed. Had just finished breakfast. Agrees to shower. Mental Status/Objective Patient Orientation: Person, Place Therapy Code Descriptions/Definitions Functional [place] Measure: 0=Not Assessed/NA 4=Minimal Assistance 1=Total Assistance 5=Supervision or Setup 2=Maximal Assistance 6=Modified [place] 3=Moderate Assistance 7=Complete [place] ADL-Treatment Therapy Code Descriptions/Definitions Functional [place] Measure: 0=Not Assessed/NA 4=Minimal Assistance 1=Total Assistance 5=Supervision or Setup 2=Maximal Assistance 6=Modified [place] 3=Moderate Assistance 7=Complete [place] Therapy Quality Codes: 6 Independent with activity with or without an assistive device 5 Patient requires set up or clean up by helper. Patient completes activity by themselves 4 Supervision or touching assist (CGA). Happy provide cues , steadying assist 3 The helper provides less than half the effort to complete the activity 2 The helper provides more than half the effort to complete the activity 1 Dependent. The helper does all the effort to complete an activity 7 Patient refused to complete or attempt activity 9 The patient did not perform the activity before the current illness or injury 88 Not attempted due to Medical conditions or safety concerns Eating (FIM): 6 Eating (QC): 6 Grooming (FIM): 5 (SBA at sink.) Oral Hygiene (QC): 4 Bathing (FIM): 5 (SBA in shower. Pt. utilized dressing stick with towel to dry feet thoroughly.) Shower/Bathe Self (QC): 4 Upper Body (FIM): 5 Upper Body Dressing (QC): 4 Lower Body Dressing (FIM): 4 (Min assist to thread pants over feet using DS. SBA in stance to don over hips. Cues to remember how to use sock aide.) Lower Body Dressing (QC): 4 On/Off Footwear (QC): 4 Toileting (FIM): 5 Toileting Hygiene (QC): 4 Transfers (B, C, W/C) (FIM): 5 Toilet/Commode Transfer (FIM): 5 Toilet Transfer (QC): 4 Shower Transfer(FIM): 5 Other Treatment After all ADLs complete in shower, pt. ambulated to therapy dining area. Pt. educated on use of walker basket to increase safety when transporting items from kitchen or other places. OT put a basket for trial use on walker and pt. practiced getting coffee at counter. Pt. put coffee in basket. Due to tello of gait, coffee spilled out while pt. ambulating. Will continue to trial this to see if pt. likes for one at home. Ambulated back to room and all needs met. Education OT Patient Education: Correct positioning, Modified ADL techniques, Progress toward Goal/Update tx plan, Purpose of tx/functional activities, Reviewed precautions, Rehab process, Transfer techniques, Use of adapted equipment Teaching Recipient: Patient Teaching Methods: Demonstration, Discussion Response to Teaching: Verbalize Understanding, Return Demonstration OT Short Term Goals Short Term Goals Time Frame: Jul 07, 2019 Bathing(FIM): 4 Upper Body Dressing(FIM): 5 Lower Body Dressing(FIM): 4 Toileting(FIM): 4 Toilet/Commode Transfer(FIM): 4 Additional Short Term Goals: 1-Demonstrate ADL Tasks, 2-Verbalize Understand ing, 3-ImproveStrength/Tessie 1=Demonstrate adherence to instructed precautions during ADL tasks. 2=Patient will verbalize/demonstrate understanding of assistive devices/modifications for ADL. 3=Patient will improve strength/tolerance for activity to enable patient to perform ADL's. OT Sporting Goods Sales Associate Goals Sporting Goods Sales Associate Goals Time Frame: Jul 21, 2019 Eating (FIM): 6 Eating (QC): 6 Groomin Oral Hygiene (QC): 6 Bathing(FIM): 5 Shower/Bathe Self (QC): 5 Upper Body Dressing(FIM): 6 Upper Body Dressing (QC): 6 Lower Body Dressing(FIM): 6 Lower Body Dressing (QC): 6 On/Off Footwear (QC): 6 Toileting(FIM): 6 Toileting Hygiene (QC): 6 Toilet/Commode Transfer(FIM): 6 Toilet/Commode Transfer (QC): 6 Shower Transfer(FIM): 5 Additional Goals: 1-Demonstrate ADL Tasks, 2-Verbalize Understanding, 3- ImproveStrength/Tessie 1=Demonstrate adherence to instructed precautions during ADL tasks. 2=Patient will verbalize/demonstrate understanding of assistive devices/modifications for ADL. 3=Patient will improve strength/tolerance for activity to enable patient to perform ADL's. OT Education/Plan Problem List/Assessment Assessment: Decreased Activ Tolerance, Dependent Transfers, Impaired Funct Balance, Impaired I ADL's, Impaired Self-Care Skills Pt to benefit from skilled OT intervention for ADL training, transfers, strengthening, and home safety education to increase level of independence and allow safe discharge home. Discharge Recommendations Plan/Recommendations: Continue POC Equpiment Recommendations-D/C: Extended Bath Bench, Hip Kit Comment Pt.educated on use of tub transfer bench for safety when transferring into his shower, as he has tub/shower at home. Pt. verbalizes understanding. Treatment Plan/Plan of Care Treatment,Training & Education: Yes Patient would benefit from OT for education, treatment and training to promote independence in ADL's, mobility, safety and/or upper extremity function for ADL's. Plan of Care: ADL Retraining, Functional Mobility, Group Exercise/Act as Ind, UE Funct Exercise/Act Treatment Duration: Jul 21, 2019 Frequency: At least 5 of 7 days/Wk (IRF) Estimated Hrs Per Day: 1.5 hours per day Agreement: Yes Rehab Potential: Good Time/GCodes Start Time: 08:15 Stop Time: 09:00 Total Time Billed (hr/min): 45 Billed Treatment Time 1, ADL x 3 SO MALONE OT Jun 27, 2019 12:26
--- NOTE | 2019-06-27 14:01 | Speech Therapy Daily Note ---
Speech Daily Progress Note Subjective Date Seen by Provider: Jun 27, 2019 Time Seen by Provider: 00:30 The patient was resting in his bed watching television when I entered his room. He was alert and pleasant during the speech session. Objective The patient completed a series of memory questions of general information: places and people at 75% with moderate verbal cues. Patient completed conversational tasks at 90%. Assessment Assessment Current Status: Good Progress Treatment Plan Continue Plan of Care Communication Comprehension: 6 Expression: 6 Social Cognition Social Interaction: 7 Problem Solvin Memory: 4 Speech Short Term Goals Short Term Goals Short Term Goals 1) The patient will complete memory tasks with 90% or greater accuracy given minimal cues. 2) The patient will complete problem solving tasks with 90% or greater accuracy given minimal cues. 3) The patient will complete safety awareness tasks with 90% or greater accuracy given minimal cues. Speech Fire Technology Instructor Goals Senior Care Goals The patient will improve cognitive function in order to return to his prior living situation safely. Speech-Plan Patient/Family Goals Patient/Family Goals: Patient plans on returning home where he lives with his with other family support as needed. Treatment Plan Speech Therapy Treatment Plan: Continue Plan of Care The patient is progressing well toward cognitive goals. Treatment Duration: Jul 05, 2019 Frequency: 5 times per week Estimated Hrs Per Day: .5 hour per day Rehab Potential: Good Barriers to Learning: Patient has some cognitive deficits, however they appear to be improving. Pt/Family Agrees to Plan: Yes Safety Risks/Education Teaching Recipient: Patient Teaching Methods: Discussion Response to Teaching: Verbalize Understanding Education Topics Provided: Continued safety and communication of wants/needs Time Speech Therapy Time In: 10:15 Speech Therapy Time Out: 10:45 Total Billed Time: 30 Billed Treatment Time 1[address] Jun 27, 2019 14:01
[2019-06-27 14:42] VITALS: BP 115/65
--- NOTE | 2019-06-27 14:50 | Progress Note ---
[facility] 06/27/19 1450: Subjective Date Seen by a Provider: Jun 27, 2019 Time Seen by a Provider: 14:47 Subjective/Events-last exam Hgb 8.9 Potassium 3.5 Had a loose BM this morning Experienced some confusion last night Dizziness is improved Weakness is improved Confusion & delirium have greatly improved Reviewed labs Nebulizer treatments are tolerated Pain is controlled Progressing well with PT/OT/ST Review of Systems General: No Chills, No Night Sweats, No Fatigue HEENT: No Head Aches Pulmonary: No Dyspnea, No Cough, No Pleuritic Chest Pain Cardiovascular: No: Chest Pain, Palpitations Gastrointestinal: No: Nausea, Vomiting Genitourinary: No Dysuria Objective Exam Last Set of Vital Signs Vital Signs Date Time Temp Pulse Resp B/P (MAP) Pulse Ox O2 Delivery O2 Flow Rate FiO2 06/27/19 14:42 36.3 73 20 115/65 97 Room Air Capillary Refill : I&O Intake and Output 06/27/19 00:00 Intake Total 1550 ml Output Total 2300 ml Balance -750 ml Intake Oral 1550 ml Output Urine Total 2300 ml # Voids 2 # Bowel Movements 3 General: Alert, Oriented X3, Cooperative, No Acute Distress HEENT: Atraumatic Neck: Supple Lungs: Clear to Auscultation, Normal Air Movement Heart: Regular Rate, Normal S1, Normal S2, No Murmurs Extremities: No Clubbing, No Cyanosis, No Edema, Normal Pulses, No Tenderness/Swelling Skin: No Rashes Neuro: Normal Speech Results Lab Laboratory Tests 06/26/19 15:35: Glucometer 211H 06/26/19 20:27: Glucometer 216H 06/27/19 05:35: Glucometer 130H 06/27/19 11:55: Glucometer 187H Assessment/Plan Assessment/Plan Assess & Plan/Chief Complaint Continue Coreg and Entresto. Monitor tolerance and response closely. Dr. Foreman and Dr. Arenas to perhaps discuss life vest for primary prevention of sudden cardiac per Dr. Crawford Left femur fracture s/p fall after missed 1 step on stairs s/p repair POD # 7 Acute and severe delirium with severe insomnia x 5 days now resolved with Zyprexa at night will decrease from 5mg at night to 2.5mg to wean off Sepsis due to URI and acute sinusitis and bronchitis placed on Zosyn and changed to PO abx today Flash pulmonary edema s/p Lasix IV may need to change to PO? 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 diff history h/o ARF while at [facility] for ALL induction PUD Remission for acute lymphocytic leukemia for [address] Perez Ischemic cardiomyopathy with improvement in ejection fraction from 30 percent to 55 percent due to Entresto management but now decreased since acute illness so may need life vest and defib Plan: IRF Monitor for ACS and CHF DVT PPx per Dr Nettles Continue on Coreg and Entresto Life vest and later defibrillator may be needed per cardiology Tylenol for pain Monitor Hgb Monitor chemistry Diagnosis/Problems Diagnosis/Problems (1) Fracture of femur, intertrochanteric, left, closed Status: Acute Qualifiers: Clinical Quality Measures Admission Status Admission Dx Uncomplicated L hip fracture with repair Delirium Anemia Constipation General Weakness Hx of CAD and CHF Hx of DM Hx of hyperlipidemia Hx of HTN Hx of Leukemia Continue PT/OT Continue Olanzapine PO @ bedtime and Monitor closely for improvement of delirium Maintain BM regimen Monitor Bowel and bladder function, and labs for improvement Monitor Hgb and platelet count Maintain HTN, DM regimen/meds Continue to use Sequential Compression Device for DVT prophylaxis & monitor lab work serially Continue with diuretics Continue with Carvedilol and Sacubitril-Valsartan and Monitor for tolerance and response closely DVT/VTE Risk/Contraindication: Risk Factor Score Per Nursin RFS Level Per Nursing on Admit: 4+=Very High ROSALINDA ARENAS DO 06/27/19 0075: Supervisory-Addendum Brief Verification & Attestation Participated in pt care: history, MDM, physical Personally performed: exam, history, MDM, supervision of care Care discussed with: Medical Student Procedures: n/a Results interpretation: Verified all documentation Verification and Attestation of Medical Student E/M Service A medical student performed and documented this service in my presence. I reviewed and verified all information documented by the medical student and made modifications to such information, when appropriate. I personally performed the physical exam and medical decision making. Rosalinda Arenas, Jun 27, 2019,16:44 [facility] Jun 27, 2019 14:50 ROSALINDA ARENAS DO Jun 27, 2019 16:45
--- NOTE | 2019-06-27 15:40 | Therapy Group Daily Note ---
Therapy Daily Group Note Patient Education Topic Home Safety Session Ratio (pt:therapist): 4:1 Goal of Session: Home Safety Strategies, Memory Strategies Goal Met for this Session: Yes Pt Benefit of Group: Contributions to Others, F/U Use of Strategies @Home, Increased Functional Safety, Improved Cognition, Recognition of Peers, Socialization Other/Notes Pt ambulated to Group via FWW. Group consisted of introduction (name, where you're from, and home safety question). Pt shared appropriate and was activity listening and engaging with peers. Group therapy with focused on home safety and cognitive trivia. Then participated collectively with group for education regarding home safety strategies, adaptive equipment, and further education on discharge planning. This group also contained trivia pertaining to history, thus engaging in memory and knowledge. Pt ambulated back to room to rest and laying supine in bed post session. call light within reach, all needs met. Start Time: 13:00 Stop Time: 14:15 Total Billed Treatment Time: 75 Total Billed Treatment 1, GRP ANTONIO CASE HEEL PRICKER Jun 27, 2019 15:40
[2019-06-27] MEDS: RT-ALBUTEROL SULF 2.5 MG/3 ML PRE-MIX VIAL INH SCH (21:28)
--- NOTE | 2019-06-27 21:50 | Progress Note - Hospitalist ---
[facility]150: Progress Note Pt is making great progress at this time, however he still has an average FIM score of 4 on most OT and PT criteria. The residential FIM score for PT/OT criteria for this pt is 6; as such, I do not believe pt is a good candidate for d/c at this time. ROSALINDA ARENAS DO 06/28/19 1529: Supervisory-Addendum Brief Verification & Attestation Participated in pt care: history, MDM, physical Personally performed: exam, history, MDM, supervision of care Care discussed with: Medical Student Procedures: n/a Results interpretation: Verified all documentation Verification and Attestation of Medical Student E/M Service A medical student performed and documented this service in my presence. I reviewed and verified all information documented by the medical student and made modifications to such information, when appropriate. I personally performed the physical exam and medical decision making. Rosalinda Arenas, Jun 28, 2019,15:29 [facility] Jun 27, 2019 21:50 ROSALINDA ARENAS DO Jun 28, 2019 15:29
[2019-06-27] MEDS: MONTELUKAST 10 MG (SINGULAIR) TAB PO SCH (22:38)
[2019-06-27] MEDS: OLANZapine 5 MG ODT (ZyPREXA ZYDIS) PO SCH (22:43)
[2019-06-28 05:58] VITALS: BP 131/70
[2019-06-28] MEDS: inSUlin ASPART (NovoLOG) 1 UNIT/0.01 ML (CHARGE PER UNIT) SC SCH ×4 (06:04→21:12)
[2019-06-28] MEDS: LACTOBACILLUS Acidoph/Bulgar 1 GM (LACTINEX) PACKET PO SCH ×4 (06:53→21:13)
[2019-06-28] MEDS: RT-ALBUTEROL SULF 2.5 MG/3 ML PRE-MIX VIAL INH SCH ×2 (07:12→19:16)
[2019-06-28] MEDS: RT-ADVAIR HFA 115/21 MCG PER PUFF IH SCH ×2 (07:14→19:16)
--- NOTE | 2019-06-28 09:02 | Cardiology Progress Note ---
Subjective Date Seen by Provider: Jun 28, 2019 Time Seen by Provider: 09:01 Subjective/Events-last exam Patient with PT, no new complaints. Denies any chest pain or palpitations. Had an episode of hypotension and dizziness this morning Review of Systems General: No Chills, No Night Sweats; Fatigue, Malaise; No Appetite, No Other HEENT: No Head Aches, No Visual Changes, No Eye Pain, No Ear Pain, No Dysphasia, No Sinus Congestion, No Post Nasal Drip, No Sore Throat, No Other Pulmonary: Dyspnea; No Cough, No Pleuritic Chest Pain, No Other Cardiovascular: No: Chest Pain, Palpitations, Orthopnea, Paroxysmal Noc. Dyspnea, Edema, Lt Headedness, Other Objective-Cardiology Exam Last Set of Vital Signs Vital Signs 06/28/19 06/28/19 05:58 09:30 Temp 36.6 Pulse 87 Resp 20 B/P (MAP) 119/64 Pulse Ox 97 O2 Delivery Room Air Capillary Refill : I&O Intake and Output 06/28/19 00:00 Intake Total 1675 ml Output Total 1750 ml Balance -75 ml Intake Oral 1675 ml Output Urine Total 1750 ml # Voids 1 # Bowel Movements 1 General: Alert, Oriented X3, Cooperative, No Acute Distress HEENT: Atraumatic Neck: Supple Lungs: Clear to Auscultation, Normal Air Movement Heart: Regular Rate, Normal S1, Normal S2, No Murmurs Extremities: No Clubbing, No Cyanosis, No Edema, Normal Pulses, No Tenderness/Swelling Skin: No Rashes Neuro: Normal Speech Results Lab Laboratory Tests 06/28/19 10:26 A/P-Cardiology Admission Diagnosis Left femur fx Anemia CAD CHF Assessment/Plan Left femur fracture, post surgical repair done on June 19, 2019. Undergoing rehabilitation. Continue to monitor Anemia, mild thrombocytopenia, managed by Dr. Perez Status post respiratory failure, better, responded to diuretics. Congestive heart failure, acute on chronic left ventricular systolic dysfunc tion, secondary to chemotherapy and coronary artery disease, ischemic and nonischemic cardiomyopathy, echocardiogram showed ejection fraction 25-30 percent, continue on Coreg and Entresto. Monitor tolerance and response closely. Will order a LifeVest Transient hypotension, history of hypertension, I will hold Lasix, continue on Coreg and Entresto and monitor blood pressure History of orthostatic dizziness and hypotension, near-syncope, no current syncopal episodes or dizziness reported. Coronary artery disease status post CABG x3 in 2004, cardiac catheterization in April 2014 which showed patent bypass grafts with small vessel disease distally mainly in the LAD system that was receiving retrograde collateral, treated conservatively. Cardiac catheterization was done on November 07, 2014 showing small vessel disease, patent MAHONEY to LAD, vein graft to the circumflex artery and vein graft to the right coronary artery, repeat cardiac catheterization was done in August 2016 showing patent MAHONEY to LAD, vein graft to the obtuse marginal branch with sluggish flow in the [place] circumflex artery, patent vein graft to the right coronary artery, the proximal [place] coronary arteries appear slightly worse with occlusion of the left main, the LAD and diagonal artery are getting collaterals from the right system. He has been asymptomatic. Continue to monitor. Mild bilateral carotid stenosis, ultrasound was done in March 2018. Continue to monitor History of esophageal spasm, EGD by Dr. Manzanares , reporting improvement. 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 Nettles, continue to monitor. 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 Nettles. Hyperlipidemia, continue to monitor lipids. Managed by Dr. Watts. Diabetes mellitus, managed and followed by primary care physician. History of atrial flutter status post ablation in 2004, currently in sinus rhythm. Continue to monitor Clinical Quality Measures DVT/VTE Risk/Contraindication: Risk Factor Score Per Nursin RFS Level Per Nursing on Admit: 4+=Very High Supervisory-Addendum Brief Supervisory Addendum Participated in pt care: history, MDM, physical Personally performed: exam, history, MDM Care discussed with: OLEG Notes: Patient was seen and evaluated Had transient episode of hypotension, I will hold Lasix for now, continue on Coreg and Entresto and monitor tolerance and response BASASM GRECO Jun 28, 2019 09:02 CHRISTOPHER TANG MD Jun 28, 2019 11:32
[2019-06-28 09:15] VITALS: BP 97/53
[2019-06-28 09:18] VITALS: BP 73/47
[2019-06-28 09:30] VITALS: BP 119/64
--- NOTE | 2019-06-28 09:31 | PM&R Progress Note ---
Subjective HPI/CC On Admission Date Seen by Provider: Jun 28, 2019 Time Seen by Provider: 09:30 CC: Debility following left hip fracture HPI: This is a 78[facility]WM clinic pt of [facility] with sever comorbidities who had an uncomplicated left hip fracture repair by Dr. Richards on Wednesday after sustaining a fall at his daughters office after missing a step on the stairs an subsequently was repaired but had some flash pulmonary edema requiring transfer to the ICU and lactic acid elevation with acute sinusitis requiring Zosyn antibiotics empirically along with IV Lasix with close monitoring and severe delirium requiring a live sitter since he was such a fall risk and received two units of blood with good improvement in Hgb of 7.5 and decreased platelet counts so Dr. Alvarado, Dr Nettles, Dr. Foreman and Dr. Richards agreed with plan to transfer to ICU and he was improving significantly so and delirium was improved to the point to where he was able to DC to inpatient rehab and continue his intensive therapies which may require 15/7 intensity because of the delirium but will try our best to initiate. Weight bearing is tolerated per Dr. Richards and we will monitor bowel function, and bladder function and monitor labs in the meantime. 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 Subjective/Events-last exam Did not set off the alarm last night Awake at 3:00 in the morning, did not sleep well Ate well for breakfast Blood sugar was 103 now 197 when recheck because his BP was 70/40 He is dizzy when he gets up or coughs a lot Will order STAT labs to check Hgb, and BNP and I did update Dr. Foreman SOB when he is exerting himself but John remains stable and that may be related to declined systolic function too Had some loose stools this morning Weakness is improved Confusion is clearing Blood sugars reviewed Conferred with RN Reviewed therapy notes Check meds and labs Nebulizer treatments are tolerated Pain is controlled Delirium much improved Review of Systems General: Fatigue Pulmonary: Dyspnea Musculoskeletal: leg pain Objective Exam Vital Signs Vital Signs Date Time Temp Pulse Resp B/P (MAP) Pulse Ox O2 Delivery O2 Flow Rate FiO2 06/28/19 19:16 92 Room Air 06/28/19 17:06 37.2 87 18 123/69 Capillary Refill : General Appearance: No Apparent Distress, WD/WN, Chronically ill HEENT: PERRL/EOMI, Normal ENT Inspection, Pharynx Normal, Moist Mucous Membranes Neck: Full Range of Motion, Normal Inspection, Non Tender, Supple Respiratory: Chest Non Tender, No Accessory Muscle Use, No Respiratory Distress, Crackles (L>R improved today only subtle finding) Cardiovascular: Regular Rate, Rhythm, No Edema, No Gallop, No JVD, No Murmur Gastrointestinal: Normal Bowel Sounds, No Organomegaly, No Pulsatile Mass, Non Tender, Soft Back: Normal Inspection, No CVA Tenderness, No Vertebral Tenderness Extremity: Normal Capillary Refill, Normal Inspection, Normal Range of Motion (except left leg), Non Tender, No Calf Tenderness, No Pedal Edema Neurologic/Psychiatric: Alert, Oriented x3, No Motor/Sensory Deficits, Normal Mood/Affect, knotter II-XII Norm as Tested, Disoriented Skin: Normal Color, Warm/Dry Lymphatic: No Adenopathy Results/Procedures Lab Laboratory Tests 06/28/19 10:26 Patient resulted labs reviewed. FIM Transfers Therapy Code Descriptions/Definitions Functional [place] Measure: 0=Not Assessed/NA 4=Minimal Assistance 1=Total Assistance 5=Supervision or Setup 2=Maximal Assistance 6=Modified [place] 3=Moderate Assistance 7=Complete [place] Therapy Quality Codes: 6 Independent with activity with or without an assistive device 5 Patient requires set up or clean up by helper. Patient completes activity by themselves 4 Supervision or touching assist (CGA). [place] provide cues , steadying assist 3 The helper provides less than half the effort to complete the activity 2 The helper provides more than half the effort to complete the activity 1 Dependent. The helper does all the effort to complete an activity 7 Patient refused to complete or attempt activity 9 The patient did not perform the activity before the current illness or injury 88 Not attempted due to Medical conditions or safety concerns Transfers (B, C, W/C) (FIM): 5 Scootin Rollin Roll Left to Right (QC): 3 Supine to/from Sit: 4 Sit to/from Stand: 5 Sit to Lying (QC): 3 Sit to Stand (QC): 3 Chair/Nkx-qa-Zcuuo Xfer(QC): 3 Bed to/from Chair: 5 Car Transfer (QC): 3 Gait Training Does the Patient Walk?: Yes Gait (FIM): 5 Distance (FIM): 3=639-10 ft Distance: 150'x2 Walk 10 feet (QC): 4 Walk 50 ft with 2 Turns(QC): 88 Walk 150 ft (QC): 88 Walking 10ft/uneven surface-QC: 4 Gait Level of Assist: 5 Gait Persons Needed: 1 Gait Assistive Device: FWW Stair Training Stairs (FIM): 1 #of Steps: 1 1 Step (curb) (QC): 3 4 Steps (QC): 88 12 Steps (QC): 88 Level of Assist: 3 Mental Status/Objective Comprehension: 6 Expression: 6 Social Interaction: 7 Problem Solvin Memory: 4 ADL-Treatment Feedin Eating (QC): 6 Groomin (SBA at sink.) Oral Hygiene (QC): 4 Bathin (SBA in shower. Pt. utilized dressing stick with towel to dry feet thoroughly.) Shower/Bathe Self (QC): 4 Upper Extremity Dressin Upper Body Dressing (QC): 4 Lower Extremity Dressin (Min assist to thread pants over feet using DS. SBA in stance to don over hips. Cues to remember how to use sock aide.) Lower Body Dressing (QC): 4 On/Off Footwear (QC): 4 Toiletin Toileting Hygiene (QC): 4 Toilet/Commode Transfer: 5 Toilet Transfer (QC): 4 Shower: 5 Assessment/Plan Assessment and Plan Assess & Plan/Chief Complaint Assessment: Left femur fracture s/p fall after missed 1 step on stairs s/p repair POD # 10 Acute and severe delirium with severe insomnia x 5 days now resolved with Zyprexa at night will decrease from 5mg at night to 2.5mg to wean off Sepsis due to URI and acute sinusitis and bronchitis placed on Zosyn and changed to PO abx Flash pulmonary edema s/p Lasix CHF EF 30% decreased from 50% on ECHO will need Life vest for 90 days then possible defib s/p post op anemia s/p 2 units of blood in ICU improved hgb 11 today COPD on Singulair and Claritin and ICS prn restarted on home meds and Nebs 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 diff history h/o ARF while at [facility] for ALL induction PUD Remission for acute lymphocytic leukemia for [address] Perez Ischemic cardiomyopathy with improvement in ejection fraction from 30 percent to 55 percent due to Entresto management but now decreased since acute illness so needs life vest then defib Plan: IRF DVT PPx per Dr Nettles if needed with Lovenox Monitor for ACS and CHF Appreciate Dr Foreman and Dr Richards and Dr Alvarado and Dr Nettles Change to PO abx soon Staple removal next Wednesday Minimize bed alarm interruptions Change Nebs to Albuterol only (1) Fracture of femur, intertrochanteric, left, closed Status: Acute Qualifiers: Encounter type: subsequent encounter (2) Non-ST elevation myocardial infarction (NSTEMI) Status: Acute (3) CAD (coronary artery disease) Status: Chronic Qualifiers: Coronary Disease-Associated Artery/Lesion type: [place] artery [place] vs. transplanted heart: [place] heart Associated angina: without angina Qualified Codes: I25.10 - Atherosclerotic heart disease of [place] coronary artery without angina pectoris (4) ALL (acute lymphocytic leukemia) Status: Chronic (5) Neuropathy Status: Chronic (6) Renal insufficiency Status: Chronic (7) Hypertension Status: Chronic Qualifiers: Hypertension type: essential hypertension Qualified Codes: I10 - Essential (primary) hypertension (8) Sciatic neuropathy Status: Chronic (9) Ischemic cardiomyopathy Status: Chronic (10) Postoperative pain Status: Acute (11) Postoperative anemia Status: Acute (12) History of Clostridium difficile infection Status: Chronic (13) COPD (chronic obstructive pulmonary disease) Status: Chronic Qualifiers: COPD type: unspecified COPD Qualified Codes: J44.9 - Chronic obstructive pulmonary disease, unspecified (14) Acute delirium Status: Acute (15) Sepsis Status: Resolved Resolution Date/Time: 06/24/19 @ 07:04 (16) Orthostasis Status: Chronic (17) Flash pulmonary edema Status: Resolved Resolution Date/Time: 06/24/19 @ 07:04 (18) Troponin level elevated Status: Resolved Resolution Date/Time: 06/24/19 @ 07:04 (19) COPD with acute exacerbation Status: Resolved Resolution Date/Time: 06/24/19 @ 07:04 (20) Elevated brain natriuretic peptide (BNP) level Status: Resolved Resolution Date/Time: 06/24/19 @ 07:04 (21) Transfusion of blood during current hospitalization Status: Resolved Resolution Date/Time: 06/24/19 @ 07:04 (22) Elevated lactic acid level Status: Resolved Resolution Date/Time: 06/24/19 @ 07:04 (23) Fever Status: Resolved Resolution Date/Time: 10/18/18 @ 12:40 (24) Shortness of breath Status: Resolved Resolution Date/Time: 10/18/18 @ 12:40 (25) Cough Status: Acute (26) Pneumonia Status: Acute (27) Non-ST elevation myocardial infarction (NSTEMI) Status: Acute (28) Dehydration, moderate Status: Resolved Resolution Date/Time: 10/18/18 @ 12:41 (29) Severe anemia Status: Acute ADALBERTO ARENAS DO Jun 28, 2019 09:31
[2019-06-28] MEDS: CEFDINIR 300 MG (OMNICEF) CAP PO SCH ×2 (09:36→21:13)
[2019-06-28] MEDS: LORATADINE (CLARITIN) 10 MG TAB PO SCH (09:36)
[2019-06-28] MEDS: PANTOPRAZOLE 40 MG (PROTONIX) TAB PO SCH (09:36)
[2019-06-28] MEDS: FUROSEMIDE 20 MG (LASIX) TAB PO SCH (09:36)
[2019-06-28] MEDS: SERTRALINE 100 MG (ZOLOFT) TAB PO SCH (09:36)
[2019-06-28] MEDS: ACETAMINOPHEN 500 MG TAB (TYLENOL) PO PRN (09:37)
[2019-06-28] MEDS: SENNA W/DOCUSATE (SENOKOT S) TABLET PO SCH ×2 (09:41→21:17)
[2019-06-28] MEDS: FLUTICASONE NASAL SPRAY (FLONASE) 16 GM BTL NS SCH (09:41)
--- NOTE | 2019-06-28 09:46 | NUR ---
Dr. Watts aware of hypotensive episode w therapy this morning, B/P improved now, see v/s. pt resting in bed, working w PT in bed. Notified Dr. Foreman also. Addendum: 06/28/19 at 1140 by BEAN SEARS RN Coreg & Entresto not given d/t hypotension, Dr. Watts aware, & Dr. Foreman notified.
--- NOTE | 2019-06-28 10:13 | Physical Therapy Daily Note ---
PT Daily Note-Current Subjective Pt nurse states pt's BP's have been low this morning, so to "take it easy" with him. Pt reports he does have some lightheadedness sx's with low BP's. Pt agreeable to PT session. Pain Numeric Pain Scale: 6 Comment: left hip, nursing aware Appearance Pt in bed with nursing present upon arrival. nurse present during parts of session, lab present during part of session. Pt sitting up in recliner at end of session, phone, call light and bedside table within reach Mental Status Patient Orientation: Person, Place, Time, Eyes Open, Situation Attachments: Saline Lock Transfers Therapy Code Descriptions/Definitions Functional [place] Measure: 0=Not Assessed/NA 4=Minimal Assistance 1=Total Assistance 5=Supervision or Setup 2=Maximal Assistance 6=Modified [place] 3=Moderate Assistance 7=Complete [place] Therapy Quality Codes: 6 Independent with activity with or without an assistive device 5 Patient requires set up or clean up by helper. Patient completes activity by themselves 4 Supervision or touching assist (CGA). [place] provide cues , steadying assist 3 The helper provides less than half the effort to complete the activity 2 The helper provides more than half the effort to complete the activity 1 Dependent. The helper does all the effort to complete an activity 7 Patient refused to complete or attempt activity 9 The patient did not perform the activity before the current illness or i njury 88 Not attempted due to Medical conditions or safety concerns Transfers (B, C, W/C) (FIM): 4 Scootin Rollin Supine to/from Sit: 4 Sit to/from Stand: 4 Pt able to follow skilled instruction for technique to ease pain and improve safety during transitions Weight Bearing Right Lower Extremity: Right Weight Bearing/Tolerated Left Lower Extremity: Left Weight Bearing/Tolerated Gait Training Does the Patient Walk?: Yes Gait (FIM): 2 Distance (FIM): 8=805-53 ft Distance: 142, 44 Gait Level of Assist: 4 (CGA provided due to reported low blood pressures by OT and nursing as well as pt report of lightheadedness, although did dissipate) Gait Persons Needed: 1 Gait Assistive Device: FWW Decreased step length, height, uneven step lengths, slow pace, antalgic. Pt able to follow skilled instruction to improve normalized gait pattern and decrease feeling of strain in LE Exercises Supine Ex: Ankle pumps (to fatigue), Quad Set, Rolling, Glut sets, Heel Slides, Knee to chest, Short Arc Quads, Scooting, Straight leg raise, Hip abd/add Supine Reps: 20 (LLE began with AAROM with pt improving with ability to perform AROM) Seated Therapy Exercises: Sit to stand, Long arc quads, Hip flexion, Hip abd/add Seated Reps: 20 Treatments Per nsg, earlier BP at 73/47 and just before beginning PT session was 119/64. During PT session was 120/70. Bed mobility, safety, education, transfers, functional mobility, activity tolerance, gait, strength, ROM, balance Assessment Current Status: Good Progress PT Short Term Goals Short Term Goals Time Frame: Jul 07, 2019 Gait (FIM): 4 Distance (FIM): 3=150 ft Gait Distance Comment: 150' Gait Level of Assist: 4 Gait Assistive Device: FWW Stairs (FIM): 2 # of Steps: 4 Stairs Level of Assist: 4 PT Retirement Goals Cement Side Laster Goals PT Cement Side Laster Goals Time Frame: Jul 21, 2019 Transfers (B,C,W/C) (FIM): 6 Sit to Lying (QC): 6 Lying-Sitting on Side/Bed(QC): 6 Sit to Stand (QC): 6 Rollin Roll Left to Right (QC): 6 Chair/Nse-pw-Jifkg Xfer(QC): 6 Car Transfer (QC): 6 Does the Patient Walk: Yes Gait (FIM): 6 Gait distance (FIM): 3=150 ft Distance: 250' Walk 10 feet (QC): 6 Walk 10ft-Uneven Surface(QC): 6 Walk 50ft with 2 Turns (QC): 6 Walk 150 ft (QC): 6 Gait Level of Assist: 6 Gait Assistive Device: FWW Stairs (FIM): 6 # of Steps: 12 1 Step (curb) (QC): 6 4 Steps (QC): 6 12 Steps (QC): 6 Stairs Level Of Assist: 6 Picking up an Object (QC): 6 PT Plan Treatment/Plan Treatment Plan: Continue Plan of Care Treatment Plan: Bed Mobility, Education, Functional Activity Tessie, Functional Strength, Group Therapy, Gait, Safety, Therapeutic Exercise, Transfers Treatment Duration: Jul 21, 2019 Frequency: At least 5 of 7 days/Wk (IRF) Estimated Hrs Per Day: 1.5 hours per day Patient and/or Family Agrees t: Yes Safety Risks/Education Patient Education: Gait Training, Transfer Techniques, Correct Positioning, Saf ety Issues Teaching Recipient: Patient Teaching Methods: Demonstration, Discussion Response to Teaching: Verbalize Understanding, Return Demonstration Time/GCodes Time In: 930 Time Out: 1030 Total Billed Treatment Time: 60 Total Billed Treatment 1 visit, EX x30 min, FA x15 min, GT x15 min WALT FERRIS UPSETTER SETTER UP Jun 28, 2019 10:13
[2019-06-28 10:34] LABS: BASOPHILS % (AUTO) 0 % (0-10); EOSINOPHILS # (AUTO) 0.3 10^3/uL (0.0-0.3); EOSINOPHILS % (AUTO) 3 % (0-10); HEMATOCRIT 33 % (40-54); LYMPHOCYTES # (AUTO) 1.6 X 10^3 (1.0-4.0); LYMPHOCYTES % (AUTO) 17 % (12-44); MEAN CORPUSCULAR HEMOGLOBIN 32 PG (25-34); MEAN CORPUSCULAR HGB CONC 33 G/DL (32-36); MEAN CORPUSCULAR VOLUME 95 FL (80-99); MEAN PLATELET VOLUME 8.3 FL (7.4-10.4); MONOCYTES % (AUTO) 10 % (0-12); NEUTROPHILS # (AUTO) 6.5 X 10^3 (1.8-7.8); NEUTROPHILS % (AUTO) 69 % (42-75); PLATELET COUNT 347 10^3/uL (130-400); RED CELL DISTRIBUTION WIDTH 14.3 % (10.0-14.5); WHITE BLOOD COUNT 9.4 10^3/uL (4.3-11.0)
[2019-06-28 10:51] LABS: ALBUMIN 3.9 GM/DL (3.2-4.5); BILIRUBIN,TOTAL 1.3 MG/DL (0.1-1.0); CALCIUM 9.9 MG/DL (8.5-10.1); CREATININE SERUM 1.26 MG/DL (0.60-1.30); POTASSIUM 3.9 MMOL/L (3.6-5.0); TOTAL PROTEIN 7.4 GM/DL (6.4-8.2)
[2019-06-28] MEDS: CARVEDILOL 3.125 MG (COREG) TABLET PO SCH ×2 (11:35→21:13)
[2019-06-28] MEDS: SACUBITRIL/VALSARTAN 24/26 MG (ENTRESTO) TABLET PO SCH ×2 (11:37→21:13)
--- NOTE | 2019-06-28 12:49 | Speech Therapy Daily Note ---
Speech Daily Progress Note Subjective Date Seen by Provider: Jun 28, 2019 Time Seen by Provider: 00:30 The patient was resting in bed after all of his other therapies. Objective The patient completed general information questions at the intermediate level with 80% accuracy given minimal cues and/or repetitions. Assessment Assessment Current Status: Good Progress Treatment Plan Continue Plan of Care Communication Comprehension: 6 Expression: 6 Social Cognition Social Interaction: 7 Problem Solvin Memory: 4 Speech Short Term Goals Short Term Goals Short Term Goals 1) The patient will complete memory tasks with 90% or greater accuracy given minimal cues. 2) The patient will complete problem solving tasks with 90% or greater accuracy given minimal cues. 3) The patient will complete safety awareness tasks with 90% or greater accuracy given minimal cues. Speech Shelter Goals Fur Polisher Goals The patient will improve cognitive function in order to return to his prior living situation safely. Speech-Plan Patient/Family Goals Patient/Family Goals: The patient plans on returning home with his post rehab. Treatment Plan Speech Therapy Treatment Plan: Continue Plan of Care The patient is exhibiting much more clarity. Treatment Duration: Jul 05, 2019 Frequency: 5 times per week Estimated Hrs Per Day: .5 hour per day Rehab Potential: Good Barriers to Learning: Patient has cognitive deficits, however these appear to be resolving Pt/Family Agrees to Plan: Yes Safety Risks/Education Teaching Recipient: Patient Teaching Methods: Demonstration, Discussion Response to Teaching: Verbalize Understanding, Return Demonstration Education Topics Provided: Safety within his room and communication of his wants and needs. Time Speech Therapy Time In: 11:30 Speech Therapy Time Out: 12:00 Total Billed Time: 30 Billed Treatment Time [address] Jun 28, 2019 12:49
[2019-06-28 13:07] VITALS: BP 125/72
--- NOTE | 2019-06-28 13:10 | Occupational Ther Daily Note ---
OT Current Status-Daily Note Subjective No pain reported. Appearance Pt. in bed this a.m. Agrees to work with OT. Mental Status/Objective Patient Orientation: Person, Place Therapy Code Descriptions/Definitions Functional [place] Measure: 0=Not Assessed/NA 4=Minimal Assistance 1=Total Assistance 5=Supervision or Setup 2=Maximal Assistance 6=Modified [place] 3=Moderate Assistance 7=Complete [place] ADL-Treatment Therapy Code Descriptions/Definitions Functional [place] Measure: 0=Not Assessed/NA 4=Minimal Assistance 1=Total Assistance 5=Supervision or Setup 2=Maximal Assistance 6=Modified [place] 3=Moderate Assistance 7=Complete [place] Therapy Quality Codes: 6 Independent with activity with or without an assistive device 5 Patient requires set up or clean up by helper. Patient completes activity by themselves 4 Supervision or touching assist (CGA). [place] provide cues , steadying assist 3 The helper provides less than half the effort to complete the activity 2 The helper provides more than half the effort to complete the activity 1 Dependent. The helper does all the effort to complete an activity 7 Patient refused to complete or attempt activity 9 The patient did not perform the activity before the current illness or injury 88 Not attempted due to Medical conditions or safety concerns Grooming (FIM): 5 (Set up at sink seated to brush teeth and comb hair.) Oral Hygiene (QC): 5 Bathing (FIM): 4 (CGA in stance in shower. Pt. able to use LH sponge to wash feet.) Shower/Bathe Self (QC): 4 Upper Body (FIM): 5 Upper Body Dressing (QC): 4 Lower Body Dressing (FIM): 4 (Min assist to thread pants over feet. Min assist to rubber covering machine operator hips. Pt. utilizes DS.) Lower Body Dressing (QC): 4 On/Off Footwear (QC): 4 Transfers (B, C, W/C) (FIM): 4 Shower Transfer(FIM): 4 Other Treatment After ADLs, pt. ambulated with CGA to therapy gym. OT took 02 sats before performing arm bike. Sats at 99%. Pt. completed 8 minutes on arm bike at min resistance. Pt. took break and sats at 98%. Completed another 7 minutes. Sats at 97%. Pt. reported that he felt dizzy. Nursing notified and BP taken. BP at 97/53. Pt. rested and BP taken again. It was 73/47. Physician notified and pt. rested for another 5-10minutes. BP taken again and is 90/56. Pt. taken back to room via wheelchair. Transferred to bed with CGA. All needs met. Pt. resting and nursing assessing. Education OT Patient Education: Correct positioning, Exercise program, Modified ADL techniques, Progress toward Goal/Update tx plan, Purpose of tx/functional act ivities, Reviewed precautions, Rehab process, Transfer techniques, Use of adapted equipment Teaching Recipient: Patient Teaching Methods: Demonstration, Discussion Response to Teaching: Verbalize Understanding, Return Demonstration OT Short Term Goals Short Term Goals Time Frame: Jul 07, 2019 Bathing(FIM): 4 Upper Body Dressing(FIM): 5 Lower Body Dressing(FIM): 4 Toileting(FIM): 4 Toilet/Commode Transfer(FIM): 4 Additional Short Term Goals: 1-Demonstrate ADL Tasks, 2-Verbalize Understanding, 3-ImproveStrength/Tessie 1=Demonstrate adherence to instructed precautions during ADL tasks. 2=Patient will verbalize/demonstrate understanding of assistive devices/modifications for ADL. 3=Patient will improve strength/tolerance for activity to enable patient to perform ADL's. OT Sheet Manufacturing Supervisor Goals Sheet Manufacturing Supervisor Goals Time Frame: Jul 21, 2019 Eating (FIM): 6 Eating (QC): 6 Groomin Oral Hygiene (QC): 6 Bathing(FIM): 5 Shower/Bathe Self (QC): 5 Upper Body Dressing(FIM): 6 Upper Body Dressing (QC): 6 Lower Body Dressing(FIM): 6 Lower Body Dressing (QC): 6 On/Off Footwear (QC): 6 Toileting(FIM): 6 Toileting Hygiene (QC): 6 Toilet/Commode Transfer(FIM): 6 Toilet/Commode Transfer (QC): 6 Shower Transfer(FIM): 5 Additional Goals: 1-Demonstrate ADL Tasks, 2-Verbalize Understanding, 3- ImproveStrength/Tessie 1=Demonstrate adherence to instructed precautions during ADL tasks. 2=Patient will verbalize/demonstrate understanding of assistive devices/modifications for ADL. 3=Patient will improve strength/tolerance for activity to enable patient to perform ADL's. OT Education/Plan Problem List/Assessment Assessment: Decreased Activ Tolerance, Impaired Funct Balance, Impaired I ADL's, Impaired Self-Care Skills Pt to benefit from skilled OT intervention for ADL training, transfers, strengthening, and home safety education to increase level of independence and allow safe discharge home. Discharge Recommendations Plan/Recommendations: Continue POC Therapy Discharge Recommendati: Post Acute OT Equpiment Recommendations-D/C: Extended Bath Bench, Hip Kit Treatment Plan/Plan of Care Treatment,Training & Education: Yes Patient would benefit from OT for education, treatment and training to promote independence in ADL's, mobility, safety and/or upper extremity function for ADL's. Plan of Care: ADL Retraining, Functional Mobility, Group Exercise/Act as Ind, UE Funct Exercise/Act Treatment Duration: Jul 21, 2019 Frequency: At least 5 of 7 days/Wk (IRF) Estimated Hrs Per Day: 1.5 hours per day Agreement: Yes Rehab Potential: Good Time/GCodes Start Time: 08:15 Stop Time: 09:30 Total Time Billed (hr/min): 75 Billed Treatment Time 1, ADL x 45minutes, FA x 15minutes, Ex x 15minutes SO MALONE OT Jun 28, 2019 13:09
--- NOTE | 2019-06-28 13:45 | Physical Therapy Daily Note ---
PT Daily Note-Current Subjective Patient in bed pre tx, agrees to PT, has 4/10 pain in left leg. Appearance Patient in bed post tx with nurse call, phone, tray, bed alarm on. Mental Status Patient Orientation: Person, Place, Situation Transfers Therapy Code Descriptions/Definitions Functional [place] Measure: 0=Not Assessed/NA 4=Minimal Assistance 1=Total Assistance 5=Supervision or Setup 2=Maximal Assistance 6=Modified [place] 3=Moderate Assistance 7=Complete [place] Therapy Quality Codes: 6 Independent with activity with or without an assistive device 5 Patient requires set up or clean up by helper. Patient completes activity by themselves 4 Supervision or touching assist (CGA). [place] provide cues , steadying assist 3 The helper provides less than half the effort to complete the activity 2 The helper provides more than half the effort to complete the activity 1 Dependent. The helper does all the effort to complete an activity 7 Patient refused to complete or attempt activity 9 The patient did not perform the activity before the current illness or injury 88 Not attempted due to Medical conditions or safety concerns Transfers (B, C, W/C) (FIM): 4 Scootin Rollin Supine to/from Sit: 4 Sit to/from Stand: 5 Bed to/from Chair: 5 Patient needs min assist getting left leg into and out of bed. Weight Bearing Right Lower Extremity: Right Weight Bearing/Tolerated Left Lower Extremity: Left Weight Bearing/Tolerated Gait Training Gait (FIM): 5 Distance: 150'x2 Gait Level of Assist: 5 Gait Persons Needed: 1 Gait Assistive Device: FWW Decreased stance time on the left leg but improved, improved step-through. Treatments bed mobility and transfers, ambulation Assessment Current Status: Fair Progress improving ambulation PT Short Term Goals Short Term Goals Time Frame: Jul 07, 2019 Gait (FIM): 4 Distance (FIM): 3=150 ft Gait Distance Comment: 150' Gait Level of Assist: 4 Gait Assistive Device: FWW Stairs (FIM): 2 # of Steps: 4 Stairs Level of Assist: 4 PT Assisted Goals Recycling Program Manager Goals PT Assisted Goals Time Frame: Jul 21, 2019 Transfers (B,C,W/C) (FIM): 6 Sit to Lying (QC): 6 Lying-Sitting on Side/Bed(QC): 6 Sit to Stand (QC): 6 Rollin Roll Left to Right (QC): 6 Chair/Mvn-lu-Mplyk Xfer(QC): 6 Car Transfer (QC): 6 Does the Patient Walk: Yes Gait (FIM): 6 Gait distance (FIM): 3=150 ft Distance: 250' Walk 10 feet (QC): 6 Walk 10ft-Uneven Surface(QC): 6 Walk 50ft with 2 Turns (QC): 6 Walk 150 ft (QC): 6 Gait Level of Assist: 6 Gait Assistive Device: FWW Stairs (FIM): 6 # of Steps: 12 1 Step (curb) (QC): 6 4 Steps (QC): 6 12 Steps (QC): 6 Stairs Level Of Assist: 6 Picking up an Object (QC): 6 PT Plan Problem List Problem List: Activity Tolerance, Functional Strength, Safety, Balance, Gait, Transfer, Bed Mobility, ROM Treatment/Plan Treatment Plan: Continue Plan of Care Treatment Plan: Bed Mobility, Education, Functional Activity Tessie, Functional Strength, Group Therapy, Gait, Safety, Therapeutic Exercise, Transfers Treatment Duration: Jul 21, 2019 Frequency: At least 5 of 7 days/Wk (IRF) Estimated Hrs Per Day: 1.5 hours per day Patient and/or Family Agrees t: Yes Safety Risks/Education Patient Education: Gait Training, Transfer Techniques, Correct Positioning, Safety Issues Teaching Recipient: Patient Teaching Methods: Demonstration, Discussion Response to Teaching: Reinforcement Needed Time/GCodes Time In: 1330 Time Out: 1345 Total Billed Treatment Time: 15 Total Billed Treatment 1 visit GT 15' EMPERATRIZ VERGARA PT Jun 28, 2019 13:45
[2019-06-28 17:06] VITALS: BP 123/69
[2019-06-28] MEDS: MONTELUKAST 10 MG (SINGULAIR) TAB PO SCH (21:13)
[2019-06-28] MEDS: MELATONIN 3 MG TABLET PO PRN (21:14)
[2019-06-28] MEDS: OLANZapine 5 MG ODT (ZyPREXA ZYDIS) PO SCH (21:14)
[2019-06-29 05:31] LABS: HEMOGLOBIN 10.2 G/DL (13.3-17.7); MEAN PLATELET VOLUME 8.2 FL (7.4-10.4); RED CELL DISTRIBUTION WIDTH 14.3 % (10.0-14.5); WHITE BLOOD COUNT 8.3 10^3/uL (4.3-11.0)
[2019-06-29] MEDS: inSUlin ASPART (NovoLOG) 1 UNIT/0.01 ML (CHARGE PER UNIT) SC SCH ×4 (05:52→21:48)
[2019-06-29] MEDS: LACTOBACILLUS Acidoph/Bulgar 1 GM (LACTINEX) PACKET PO SCH ×4 (05:55→21:50)
[2019-06-29 06:01] LABS: ALANINE AMINOTRANSFERASE 33 U/L (0-55); ALBUMIN 3.6 GM/DL (3.2-4.5); ALKALINE PHOSPHATASE 74 U/L (40-136); BILIRUBIN,TOTAL 1.1 MG/DL (0.1-1.0); BUN/CREATININE RATIO 22; CALCIUM 9.5 MG/DL (8.5-10.1); CARBON DIOXIDE 24 MMOL/L (21-32); CHLORIDE 104 MMOL/L (98-107); CREATININE SERUM 1.04 MG/DL (0.60-1.30); GFR ESTIMATED > 60; GLUCOSE 102 MG/DL (70-105); MAGNESIUM 1.6 MG/DL (1.6-2.4); POTASSIUM 3.8 MMOL/L (3.6-5.0); SODIUM 141 MMOL/L (135-145); TOTAL PROTEIN 7.1 GM/DL (6.4-8.2)
[2019-06-29 06:30] VITALS: BP 149/69
--- NOTE | 2019-06-29 07:07 | Progress Note ---
[facility] 06/29/19 0707: Subjective Date Seen by a Provider: Jun 29, 2019 Time Seen by a Provider: 07:02 Subjective/Events-last exam did not sleep well last night States he had low blood sugar last night and thats why he couldnt sleep BP high this AM (149/69) Hgb down from 11 yesterday to 10.2 today Still experiencing some dizziness when he rises from seating position Weakness and confusion is improved Pain is controlled Reviewed labs, meds, and notes Review of Systems General: No Chills, No Night Sweats, No Fatigue, No Malaise HEENT: No Head Aches Cardiovascular: No: Chest Pain, Palpitations Gastrointestinal: No: Nausea, Vomiting Objective Exam Last Set of Vital Signs Vital Signs Date Time Temp Pulse Resp B/P (MAP) Pulse Ox O2 Delivery O2 Flow Rate FiO2 06/29/19 06:30 36.8 84 20 149/69 96 Room Air Capillary Refill : I&O Intake and Output 06/29/19 00:00 Intake Total 1050 ml Output Total 2700 ml Balance -1650 ml Intake Oral 1050 ml Output Urine Total 2700 ml # Voids 2 # Bowel Movements 2 General: Alert, No Acute Distress HEENT: Atraumatic Lungs: Clear to Auscultation, Normal Air Movement Heart: Regular Rate, Normal S1, Normal S2, No Murmurs Extremities: No Clubbing, No Cyanosis, No Edema, Normal Pulses Skin: No Rashes Results Lab Laboratory Tests 06/28/19 09:21: Glucometer 197H 06/28/19 10:26: White Blood Count 9.4, Red Blood Count 3.45L, Hemoglobin 11.0#L, Hematocrit 33L, Mean Corpuscular Volume 95, Mean Corpuscular Hemoglobin 32, Mean Corpuscular He moglobin Concent 33, Red Cell Distribution Width 14.3, Platelet Count 347, Mean Platelet Volume 8.3, Neutrophils (%) (Auto) 69, Lymphocytes (%) (Auto) 17, Monocytes (%) (Auto) 10, Eosinophils (%) (Auto) 3, Basophils (%) (Auto) 0, Neutrophils # (Auto) 6.5, Lymphocytes # (Auto) 1.6, Monocytes # (Auto) 1.0, Eosinophils # (Auto) 0.3, Basophils # (Auto) 0.0, Sodium Level 139, Potassium Level 3.9, Chloride Level 101, Carbon Dioxide Level 22, Anion Gap 16H, Blood Urea Nitrogen 20H, Creatinine 1.26, Estimat Glomerular Filtration Rate 55, BUN/Creatinine Ratio 16, Glucose Level 163H, Calcium Level 9.9, Corrected Calcium 10.0, Iron Level 72, Total Bilirubin 1.3H, Aspartate Amino Transf (AST/SGOT) 25, Alanine Aminotransferase (ALT/SGPT) 33, Alkaline Phosphatase 63, B-Type Natriuretic Peptide 421.4H, Total Protein 7.4, Albumin 3.9 06/28/19 10:58: Glucometer 172H 06/29/19 05:25: White Blood Count 8.3, Red Blood Count 3.23L, Hemoglobin 10.2L, Hematocrit 31L, Mean Corpuscular Volume 94, Mean Corpuscular Hemoglobin 32, Mean Corpuscular Hemoglobin Concent 33, Red Cell Distribution Width 14.3, Platelet Count 326, Mean Platelet Volume 8.2, Sodium Level 141, Potassium Level 3.8, Chloride Level 104, Carbon Dioxide Level 24, Anion Gap 13, Blood Urea Nitrogen 23H, Creatinine 1.04, Estimat Glomerular Filtration Rate > 60, BUN/Creatinine Ratio 22, Glucose Level 102, Calcium Level 9.5, Corrected Calcium 9.8, Total Bilirubin 1.1H, Aspartate Amino Transf (AST/SGOT) 30, Alanine Aminotransferase (ALT/SGPT) 33, Alkaline Phosphatase 74, Total Protein 7.1, Albumin 3.6, Magnesium Level 1.6 Assessment/Plan Assessment/Plan Assess & Plan/Chief Complaint Left femur fracture s/p fall after missed 1 step on stairs s/p repair POD # 7 Acute and severe delirium with severe insomnia x 5 days now resolved with Zyprexa at night will decrease from 5mg at night to 2.5mg to wean off Sepsis due to URI and acute sinusitis and bronchitis placed on Zosyn and changed to PO abx today Flash pulmonary edema s/p Lasix IV may need to change to PO? 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 diff history h/o ARF while at [facility] for ALL induction PUD Remission for acute lymphocytic leukemia for [address] Perez Ischemic cardiomyopathy with improvement in ejection fraction from 30 percent to 55 percent due to Entresto management but now decreased since acute illness so may need life vest and defib Plan: IRF Monitor for ACS and CHF DVT PPx per Dr Nettles Continue on Coreg and Entresto Tylenol for pain Monitor Hgb and blood sugar Monitor chemistry (BUN, Cr) Diagnosis/Problems Diagnosis/Problems (1) Fracture of femur, intertrochanteric, left, closed Status: Acute Qualifiers: Clinical Quality Measures Admission Status Admission Dx Uncomplicated L hip fracture with repair Delirium Anemia Constipation General Weakness Hx of CAD and CHF Hx of DM Hx of hyperlipidemia Hx of HTN Hx of Leukemia Continue PT/OT Continue Olanzapine PO @ bedtime and Monitor closely for improvement of delirium Maintain BM regimen Monitor Bowel and bladder function, and labs for improvement Monitor Hgb and platelet count Maintain HTN, DM regimen/meds Continue to use Sequential Compression Device for DVT prophylaxis & monitor lab work serially Continue with diuretics Continue with Carvedilol and Sacubitril-Valsartan and Monitor for tolerance and response closely DVT/VTE Risk/Contraindication: Risk Factor Score Per Nursin RFS Level Per Nursing on Admit: 4+=Very High ROSALINDA ARENAS DO 06/30/19 1539: Supervisory-Addendum Brief Verification & Attestation Participated in pt care: history, MDM, physical Personally performed: exam, history, MDM, supervision of care Care discussed with: Medical Student Procedures: n/a Results interpretation: Verified all documentation Verification and Attestation of Medical Student E/M Service A medical student performed and documented this service in my presence. I reviewed and verified all information documented by the medical student and made modifications to such information, when appropriate. I personally performed the physical exam and medical decision making. Rosalinda Arenas, Jun 30, 2019,15:39 [facility] Jun 29, 2019 07:07 ROSALINDA ARENAS DO Jun 30, 2019 15:39
[2019-06-29] MEDS: RT-ADVAIR HFA 115/21 MCG PER PUFF IH SCH ×2 (07:36→18:53)
[2019-06-29] MEDS: RT-ALBUTEROL SULF 2.5 MG/3 ML PRE-MIX VIAL INH SCH ×2 (07:36→18:53)
[2019-06-29] MEDS: LORATADINE (CLARITIN) 10 MG TAB PO SCH (08:20)
[2019-06-29] MEDS: CARVEDILOL 3.125 MG (COREG) TABLET PO SCH ×2 (08:20→21:48)
[2019-06-29] MEDS: SACUBITRIL/VALSARTAN 24/26 MG (ENTRESTO) TABLET PO SCH ×2 (08:21→21:49)
[2019-06-29] MEDS: SENNA W/DOCUSATE (SENOKOT S) TABLET PO SCH ×2 (08:21→21:50)
[2019-06-29] MEDS: CEFDINIR 300 MG (OMNICEF) CAP PO SCH ×2 (08:21→21:49)
[2019-06-29] MEDS: PANTOPRAZOLE 40 MG (PROTONIX) TAB PO SCH (08:21)
[2019-06-29] MEDS: SERTRALINE 100 MG (ZOLOFT) TAB PO SCH (08:21)
[2019-06-29] MEDS: FLUTICASONE NASAL SPRAY (FLONASE) 16 GM BTL NS SCH (08:21)
--- NOTE | 2019-06-29 08:30 | NUR ---
Per Dr. Watts, decrease Levemir to 10 units SQ HS.
--- NOTE | 2019-06-29 09:20 | Cardiology Progress Note ---
Subjective Date Seen by Provider: Jun 29, 2019 Time Seen by Provider: 08:05 Subjective/Events-last exam Patient is sitting up in bed, no new complaints. Denies any chest pain or dyspnea. Objective-Cardiology Exam Last Set of Vital Signs Vital Signs 06/29/19 06/29/19 06:30 07:51 Temp 36.8 Pulse 84 Resp 20 B/P (MAP) 149/69 Pulse Ox 94 O2 Delivery Room Air Capillary Refill : I&O Intake and Output 06/29/19 00:00 Intake Total 1050 ml Output Total 2700 ml Balance -1650 ml Intake Oral 1050 ml Output Urine Total 2700 ml # Voids 2 # Bowel Movements 2 General: Alert, No Acute Distress HEENT: Atraumatic Neck: Supple Lungs: Clear to Auscultation, Normal Air Movement Heart: Regular Rate, Normal S1, Normal S2, No Murmurs Extremities: No Clubbing, No Cyanosis, No Edema, Normal Pulses Skin: No Rashes Neuro: Normal Speech Results Lab Laboratory Tests 06/28/19 10:26 06/29/19 05:25 A/P-Cardiology Admission Diagnosis Left femur fx Anemia CAD CHF Assessment/Plan Left femur fracture, post surgical repair done on June 19, 2019. Undergoing rehabilitation. Continue to monitor Anemia, mild thrombocytopenia, managed by Dr. Perez Status post respiratory failure, better, responded to diuretics. Congestive heart failure, acute on chronic left ventricular systolic dysfunction, secondary to chemotherapy and coronary artery disease, ischemic and nonischemic cardiomyopathy, echocardiogram showed ejection fraction 25-30 percent, continue on Coreg and Entresto. Monitor tolerance and response closely. Life vest ordered. Transient hypotension, history of hypertension, I will hold Lasix, continue on Coreg and Entresto and monitor blood pressure. Blood pressure better today, continue to monitor. History of orthostatic dizziness and hypotension, near-syncope, no current syncopal episodes or dizziness reported. Coronary artery disease status post CABG x3 in 2004, cardiac catheterization in April 2014 which showed patent bypass grafts with small vessel disease distally mainly in the LAD system that was receiving retrograde collateral, treated conservatively. Cardiac catheterization was done on November 07, 2014 showing small vessel disease, patent MAHONEY to LAD, vein graft to the circumflex artery and vein graft to the right coronary artery, repeat cardiac catheterization was done in August 2016 showing patent MAHONEY to LAD, vein graft to the obtuse marginal branch with sluggish flow in the [place] circumflex artery, patent vein graft to the right coronary artery, the proximal [place] coronary arteries appear slightly worse with occlusion of the left main, the LAD and diagonal artery are getting collaterals from the right system. He has been asymptomatic. Continue to monitor. Mild bilateral carotid stenosis, ultrasound was done in March 2018. Continue to monitor History of esophageal spasm, EGD by Dr. Manzanares , reporting improvement. 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 Nettles, continue to monitor. 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 Nettles. Hyperlipidemia, continue to monitor lipids. Managed by Dr. Watts. Diabetes mellitus, managed and followed by primary care physician. History of atrial flutter status post ablation in 2004, currently in sinus rhythm. Continue to monitor Clinical Quality Measures DVT/VTE Risk/Contraindication: Risk Factor Score Per Nursin RFS Level Per Nursing on Admit: 4+=Very High Supervisory-Addendum Brief Supervisory Addendum Participated in pt care: history, MDM, physical Personally performed: exam, history, MDM Care discussed with: OLEG Notes: Patient was seen and evaluated this morning, was laying down in bed, comfortable, blood pressure is better. I will hold Lasix today, continue to monitor heart rate and blood pressure, continue with physical therapy. Planning for LifeVest BASSAM GRECO Jun 29, 2019 9:20 am CHRISTOPHER TANG MD Jun 29, 2019 9:48 am
--- NOTE | 2019-06-29 09:38 | PM&R Progress Note ---
Subjective HPI/CC On Admission Date Seen by Provider: Jun 29, 2019 Time Seen by Provider: 09:00 CC: Debility following left hip fracture HPI: This is a 78yoWM clinic pt of [facility] with sever comorbidities who had an uncomplicated left hip fracture repair by Dr. Richards on Wednesday after sustaining a fall at his daughters office after missing a step on the stairs an subsequently was repaired but had some flash pulmonary edema requiring transfer to the ICU and lactic acid elevation with acute sinusitis requiring Zosyn antibiotics empirically along with IV Lasix with close monitoring and severe delirium requiring a live sitter since he was such a fall risk and received two units of blood with good improvement in Hgb of 7.5 and decreased platelet counts so Dr. Alvarado, Dr Nettles, Dr. Foreman and Dr. Richards agreed with plan to transfer to ICU and he was improving significantly so and delirium was improved to the point to where he was able to DC to inpatient rehab and continue his intensive therapies which may require 15/7 intensity because of the delirium but will try our best to initiate. Weight bearing is tolerated per Dr. Richards and we will monitor bowel function, and bladder function and monitor labs in the meantime. 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 Subjective/Events-last exam Pt doing well but blood sugar was 67 this morning. Decreased Levemir from 20 units to 10 starting tonight. No bed alarm was set off. Slept a little better but not by too much due to the hypoglycemia. BP 140/67, does get orthostatic. Weakness is improved Confusion is clearing Blood sugars reviewed Conferred with RN Reviewed therapy notes Check meds and labs Nebulizer treatments are tolerated Pain is controlled Delirium much improved Review of Systems General: Fatigue Musculoskeletal: leg pain Objective Exam Vital Signs Vital Signs Date Time Temp Pulse Resp B/P (MAP) Pulse Ox O2 Delivery O2 Flow Rate FiO2 06/30/19 15:56 36.3 70 14 110/66 96 Room Air Capillary Refill : General Appearance: No Apparent Distress, WD/WN, Chronically ill HEENT: PERRL/EOMI, Normal ENT Inspection, Pharynx Normal, Moist Mucous Membranes Neck: Full Range of Motion, Normal Inspection, Non Tender, Supple Respiratory: Chest Non Tender, No Accessory Muscle Use, No Respiratory Distress, Crackles (L>R improved today only subtle finding) Cardiovascular: Regular Rate, Rhythm, No Edema, No Gallop, No JVD, No Murmur Gastrointestinal: Normal Bowel Sounds, No Organomegaly, No Pulsatile Mass, Non Tender, Soft Back: Normal Inspection, No CVA Tenderness, No Vertebral Tenderness Extremity: Normal Capillary Refill, Normal Inspection, Normal Range of Motion (except left leg), Non Tender, No Calf Tenderness, No Pedal Edema Neurologic/Psychiatric: Alert, Oriented x3, No Motor/Sensory Deficits, Normal Mood/Affect, body technician/painter II-XII Norm as Tested, Disoriented Skin: Normal Color, Warm/Dry Lymphatic: No Adenopathy Results/Procedures Lab Patient resulted labs reviewed. FIM Transfers Therapy Code Descriptions/Definitions Functional [place] Measure: 0=Not Assessed/NA 4=Minimal Assistance 1=Total Assistance 5=Supervision or Setup 2=Maximal Assistance 6=Modified [place] 3=Moderate Assistance 7=Complete [place] Therapy Quality Codes: 6 Independent with activity with or without an assistive device 5 Patient requires set up or clean up by helper. Patient completes activity by themselves 4 Supervision or touching assist (CGA). [place] provide cues , steadying assist 3 The helper provides less than half the effort to complete the activity 2 The helper provides more than half the effort to complete the activity 1 Dependent. The helper does all the effort to complete an activity 7 Patient refused to complete or attempt activity 9 The patient did not perform the activity before the current illness or injury 88 Not attempted due to Medical conditions or safety concerns Transfers (B, C, W/C) (FIM): 4 Scootin Rollin Roll Left to Right (QC): 3 Supine to/from Sit: 4 Sit to/from Stand: 5 Sit to Lying (QC): 3 Sit to Stand (QC): 3 Chair/Sod-wt-Frfqg Xfer(QC): 3 Bed to/from Chair: 5 Car Transfer (QC): 3 Gait Training Does the Patient Walk?: Yes Gait (FIM): 5 Distance (FIM): 0=739-09 ft Distance: 150'x2 Walk 10 feet (QC): 4 Walk 50 ft with 2 Turns(QC): 88 Walk 150 ft (QC): 88 Walking 10ft/uneven surface-QC: 4 Gait Level of Assist: 5 Gait Persons Needed: 1 Gait Assistive Device: FWW Wheelchair Training Does the Pt Use a Wheelchair?: No Stair Training Stairs (FIM): 1 #of Steps: 1 1 Step (curb) (QC): 3 4 Steps (QC): 88 12 Steps (QC): 88 Level of Assist: 3 Mental Status/Objective Comprehension: 6 Expression: 6 Social Interaction: 7 Problem Solvin Memory: 4 ADL-Treatment Feedin Eating (QC): 6 Groomin (Set up at sink seated to brush teeth and comb hair.) Oral Hygiene (QC): 5 Bathin (CGA in stance in shower. Pt. able to use LH sponge to wash feet.) Shower/Bathe Self (QC): 4 Upper Extremity Dressin Upper Body Dressing (QC): 4 Lower Extremity Dressin (Min assist to thread pants over feet. 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 Pt. utilizes DS.) Lower Body Dressing (QC): 4 On/Off Footwear (QC): 4 Toiletin Toileting Hygiene (QC): 4 Toilet/Commode Transfer: 5 Toilet Transfer (QC): 4 Shower: 4 Assessment/Plan Assessment and Plan Assess & Plan/Chief Complaint Assessment: Left femur fracture s/p fall after missed 1 step on stairs s/p repair POD # 11 Acute and severe delirium with severe insomnia x 5 days now resolved with Zyprexa at night will decrease from 5mg at night to 2.5mg to wean off Sepsis due to URI and acute sinusitis and bronchitis placed on Zosyn and changed to PO abx Flash pulmonary edema s/p Lasix CHF EF 30% decreased from 50% on ECHO will need Life vest for 90 days then possible defib s/p post op anemia s/p 2 units of blood in ICU improved hgb 11 today COPD on Singulair and Claritin and ICS prn restarted on home meds and Nebs 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 diff history h/o ARF while at [facility] for ALL induction PUD Remission for acute lymphocytic leukemia for [address] Perez Ischemic cardiomyopathy with improvement in ejection fraction from 30 percent to 55 percent due to Entresto management but now decreased since acute illness so needs life vest then defib Plan: IRF DVT PPx per Dr Nettles if needed with Lovenox Monitor for ACS and CHF Appreciate Dr Foreman and Dr Richards and Dr Alvarado and Dr Nettles Change to PO abx soon Staple removal next Wednesday Minimize bed alarm interruptions Change Nebs to Albuterol only (1) Fracture of femur, intertrochanteric, left, closed Status: Acute Qualifiers: Encounter type: subsequent encounter (2) Non-ST elevation myocardial infarction (NSTEMI) Status: Acute (3) CAD (coronary artery disease) Status: Chronic Qualifiers: Coronary Disease-Associated Artery/Lesion type: [place] artery [place] vs. transplanted heart: [place] heart Associated angina: without angina Qualified Codes: I25.10 - Atherosclerotic heart disease of [place] coronary artery without angina pectoris (4) ALL (acute lymphocytic leukemia) Status: Chronic (5) Neuropathy Status: Chronic (6) Renal insufficiency Status: Chronic (7) Hypertension Status: Chronic Qualifiers: Hypertension type: essential hypertension Qualified Codes: I10 - Essential (primary) hypertension (8) Sciatic neuropathy Status: Chronic (9) Ischemic cardiomyopathy Status: Chronic (10) Postoperative pain Status: Acute (11) Postoperative anemia Status: Acute (12) History of Clostridium difficile infection Status: Chronic (13) COPD (chronic obstructive pulmonary disease) Status: Chronic Qualifiers: COPD type: unspecified COPD Qualified Codes: J44.9 - Chronic obstructive pulmonary disease, unspecified (14) Acute delirium Status: Acute (15) Sepsis Status: Resolved Resolution Date/Time: 06/24/19 @ 07:04 (16) Orthostasis Status: Chronic (17) Flash pulmonary edema Status: Resolved Resolution Date/Time: 06/24/19 @ 07:04 (18) Troponin level elevated Status: Resolved Resolution Date/Time: 06/24/19 @ 07:04 (19) COPD with acute exacerbation Status: Resolved Resolution Date/Time: 06/24/19 @ 07:04 (20) Elevated brain natriuretic peptide (BNP) level Status: Resolved Resolution Date/Time: 06/24/19 @ 07:04 (21) Transfusion of blood during current hospitalization Status: Resolved Resolution Date/Time: 06/24/19 @ 07:04 (22) Elevated lactic acid level Status: Resolved Resolution Date/Time: 06/24/19 @ 07:04 (23) Fever Status: Resolved Resolution Date/Time: 10/18/18 @ 12:40 (24) Shortness of breath Status: Resolved Resolution Date/Time: 10/18/18 @ 12:40 (25) Cough Status: Acute (26) Pneumonia Status: Acute (27) Non-ST elevation myocardial infarction (NSTEMI) Status: Acute (28) Dehydration, moderate Status: Resolved Resolution Date/Time: 10/18/18 @ 12:41 (29) Severe anemia Status: Acute ADALBERTO ARENAS DO Jun 29, 2019 09:38
--- NOTE | 2019-06-29 10:52 | Occupational Ther Daily Note ---
OT Current Status-Daily Note Subjective Pt. does not report pain level. Does state that he sweat a lot last night, but was not sure why. Appearance Pt. in bed asleep. Wakes up and agrees to work with OT. Mental Status/Objective Patient Orientation: Person, Place Therapy Code Descriptions/Definitions Functional [place] Measure: 0=Not Assessed/NA 4=Minimal Assistance 1=Total Assistance 5=Supervision or Setup 2=Maximal Assistance 6=Modified [place] 3=Moderate Assistance 7=Complete [place] ADL-Treatment Therapy Code Descriptions/Definitions Functional [place] Measure: 0=Not Assessed/NA 4=Minimal Assistance 1=Total Assistance 5=Supervision or Setup 2=Maximal Assistance 6=Modified [place] 3=Moderate Assistance 7=Complete [place] Therapy Quality Codes: 6 Independent with activity with or without an assistive device 5 Patient requires set up or clean up by helper. Patient completes activity by themselves 4 Supervision or touching assist (CGA). [place] provide cues , steadying assist 3 The helper provides less than half the effort to complete the activity 2 The helper provides more than half the effort to complete the activity 1 Dependent. The helper does all the effort to complete an activity 7 Patient refused to complete or attempt activity 9 The patient did not perform the activity before the current illness or injury 88 Not attempted due to Medical conditions or safety concerns Eating (FIM): 6 Eating (QC): 6 Grooming (FIM): 5 (Set up at sink seated to brush teeth and hair.) Oral Hygiene (QC): 5 Bathing (FIM): 5 (SBA in shower to wash all parts. Pt. utilized LH sponge.) Shower/Bathe Self (QC): 4 Upper Body (FIM): 5 Upper Body Dressing (QC): 5 Lower Body Dressing (FIM): 4 (CGA in stance to don over hips. Min assist to a djust pants on hips.) Lower Body Dressing (QC): 4 On/Off Footwear (QC): 4 (SBA using sock aide ) Toileting (FIM): 5 Toileting Hygiene (QC): 4 Transfers (B, C, W/C) (FIM): 4 (CGA with walker.) Toilet/Commode Transfer (FIM): 4 Toilet Transfer (QC): 4 Shower Transfer(FIM): 4 Other Treatment After ADLs, pt. ambulated to therapy gym. Tolerated pulleys x 5 minutes for increased overall endurance. BP taken before ambulation to therapy gym. It was 115/64, sats at 99%, and HR at 80. After ambulation and pulleys, BP at 94/58. Sat and rested. BP then taken and was 100/59. Rested and then taken again. BP at 91/54. Pt. rested and ambulated back to room with min assist. Physician aware. All needs met. Education OT Patient Education: Correct positioning, Exercise program, Modified ADL techniques, Progress toward Goal/Update tx plan, Purpose of tx/functional activities, Reviewed precautions, Rehab process, Transfer techniques Teaching Recipient: Patient Teaching Methods: Demonstration, Discussion Response to Teaching: Verbalize Understanding, Return Demonstration OT Short Term Goals Short Term Goals Time Frame: Jul 07, 2019 Bathing(FIM): 4 Upper Body Dressing(FIM): 5 Lower Body Dressing(FIM): 4 Toileting(FIM): 4 Toilet/Commode Transfer(FIM): 4 Additional Short Term Goals: 1-Demonstrate ADL Tasks, 2-Verbalize Understanding, 3-ImproveStrength/Tessie 1=Demonstrate adherence to instructed precautions during ADL tasks. 2=Patient will verbalize/demonstrate understanding of assistive devices/modifications for ADL. 3=Patient will improve strength/tolerance for activity to enable patient to perform ADL's. OT Financial Systems Manager Goals Financial Systems Manager Goals Time Frame: Jul 21, 2019 Eating (FIM): 6 Eating (QC): 6 Groomin Oral Hygiene (QC): 6 Bathing(FIM): 5 Shower/Bathe Self (QC): 5 Upper Body Dressing(FIM): 6 Upper Body Dressing (QC): 6 Lower Body Dressing(FIM): 6 Lower Body Dressing (QC): 6 On/Off Footwear (QC): 6 Toileting(FIM): 6 Toileting Hygiene (QC): 6 Toilet/Commode Transfer(FIM): 6 Toilet/Commode Transfer (QC): 6 Shower Transfer(FIM): 5 Additional Goals: 1-Demonstrate ADL Tasks, 2-Verbalize Understanding, 3- ImproveStrength/Tessie 1=Demonstrate adherence to instructed precautions during ADL tasks. 2=Patient will verbalize/demonstrate understanding of assistive devices/modifications for ADL. 3=Patient will improve strength/tolerance for activity to enable patient to perform ADL's. OT Education/Plan Problem List/Assessment Assessment: Decreased Activ Tolerance, Decreased UE Strength, Impaired I ADL's, Impaired Self-Care Skills Pt to benefit from skilled OT intervention for ADL training, transfers, strengthening, and home safety education to increase level of independence and allow safe discharge home. Discharge Recommendations Plan/Recommendations: Continue POC Equpiment Recommendations-D/C: Extended Bath Bench, Hip Kit Treatment Plan/Plan of Care Treatment,Training & Education: Yes Patient would benefit from OT for education, treatment and training to promote independence in ADL's, mobility, safety and/or upper extremity function for ADL's. Plan of Care: ADL Retraining, Functional Mobility, Group Exercise/Act as Ind, UE Funct Exercise/Act Treatment Duration: Jul 21, 2019 Frequency: At least 5 of 7 days/Wk (IRF) Estimated Hrs Per Day: 1.5 hours per day Agreement: Yes Rehab Potential: Good Time/GCodes Start Time: 09:00 Stop Time: 10:00 Total Time Billed (hr/min): 60 Billed Treatment Time 1, ADL x 45minutes, Ex x 15minutes SO MALONE OT Jun 29, 2019 10:52
--- NOTE | 2019-06-29 11:41 | Physical Therapy Daily Note ---
PT Daily Note-Current Subjective Agrees to PT. Reports feeling tired and requested a rest before starting PT. Pt given an additional 30 min rest before therapy. Pain Numeric Pain Scale: 4 Location: Left Location Body Site: Pelvic Pain Description: Ache Comment: with WB or gait. Mental Status Patient Orientation: Person, Place, Time, Situation Transfers Therapy Code Descriptions/Definitions Functional [place] Measure: 0=Not Assessed/NA 4=Minimal Assistance 1=Total Assistance 5=Supervision or Setup 2=Maximal Assistance 6=Modified [place] 3=Moderate Assistance 7=Complete [place] Therapy Quality Codes: 6 Independent with activity with or without an assistive device 5 Patient requires set up or clean up by helper. Patient completes activity by themselves 4 Supervision or touching assist (CGA). [place] provide cues , steadying assist 3 The helper provides less than half the effort to complete the activity 2 The helper provides more than half the effort to complete the activity 1 Dependent. The helper does all the effort to complete an activity 7 Patient refused to complete or attempt activity 9 The patient did not perform the activity before the current illness or injury 88 Not attempted due to Medical conditions or safety concerns Transfers (B, C, W/C) (FIM): 4 Roll Left to Right (QC): 4 Supine to/from Sit: 4 (assist with left LE) Sit to/from Stand: 4 (CGA with skilleed cues for hand placmeent; pt tends to drop in to the chair; needs cues 75% of the time for hand placement. ) Sit to Lying (QC): 3 Sit to Stand (QC): 4 Chair/Xqa-jl-Kebfq Xfer(QC): 4 Weight Bearing Right Lower Extremity: Right Weight Bearing/Tolerated Left Lower Extremity: Left Weight Bearing/Tolerated Gait Training Does the Patient Walk?: Yes Gait (FIM): 4 Distance (FIM): 3=150 ft Distance: 150 ft x 2 with FWW Gait Assistive Device: FWW Pt ambulated with FWW with focus on upright shoulders/head; worked on step through gait with heel strike with FWW as well as in // bars. improved ease in // bars due to additional support they provide. Exercises LE reciprocal ther ex to provide ROM to hip/knee B as well as functional strength in a NWB manner (decreased pain) to promote gait and transfers. Performed x 15 min. Assessment Current Status: Good Progress Pt did well with step through in the // bars with fair carryover in the FWW. Pt cooperative and very motivated. PT Short Term Goals Short Term Goals Time Frame: Jul 07, 2019 Gait (FIM): 4 Distance (FIM): 3=150 ft Gait Distance Comment: 150' Gait Level of Assist: 4 Gait Assistive Device: FWW Stairs (FIM): 2 # of Steps: 4 Stairs Level of Assist: 4 PT Electrophysiology Tech Goals Senior Care Goals PT Senior Care Goals Time Frame: Jul 21, 2019 Transfers (B,C,W/C) (FIM): 6 Sit to Lying (QC): 6 Lying-Sitting on Side/Bed(QC): 6 Sit to Stand (QC): 6 Rollin Roll Left to Right (QC): 6 Chair/Upd-qp-Nadlg Xfer(QC): 6 Car Transfer (QC): 6 Does the Patient Walk: Yes Gait (FIM): 6 Gait distance (FIM): 3=150 ft Distance: 250' Walk 10 feet (QC): 6 Walk 10ft-Uneven Surface(QC): 6 Walk 50ft with 2 Turns (QC): 6 Walk 150 ft (QC): 6 Gait Level of Assist: 6 Gait Assistive Device: FWW Stairs (FIM): 6 # of Steps: 12 1 Step (curb) (QC): 6 4 Steps (QC): 6 12 Steps (QC): 6 Stairs Level Of Assist: 6 Picking up an Object (QC): 6 PT Plan Problem List Problem List: Activity Tolerance, Functional Strength, Safety Treatment/Plan Treatment Plan: Continue Plan of Care Treatment Plan: Bed Mobility, Education, Functional Activity Tessie, Functional Strength, Group Therapy, Gait, Safety, Therapeutic Exercise, Transfers Treatment Duration: Jul 21, 2019 Frequency: At least 5 of 7 days/Wk (IRF) Estimated Hrs Per Day: 1.5 hours per day Patient and/or Family Agrees t: Yes Safety Risks/Education Patient Education: Transfer Techniques, Safety Issues Teaching Recipient: Patient Teaching Methods: Discussion Response to Teaching: Reinforcement Needed Time/GCodes Time In: 1030 Time Out: 1124 Total Billed Treatment Time: 54 Total Billed Treatment visit EX 15 GT 39 DANNA QUESADA PT Jun 29, 2019 11:41
--- NOTE | 2019-06-29 14:39 | Therapy Group Daily Note ---
Therapy Daily Group Note Patient Education Topic Exercises (education on the importance of exercise while here as well as upon discharge. ) Exercises LE Seated Exercise, ROM, UE Exercise Session Ratio (pt:therapist): 4:1 Goal of Session: UE/LE Strengthing Goals of this session are to provide background information/education of importance of strength and how it affects self care and mobility; in addition group therapy provides an opportunity for this patient to see others in similare situations and provide him with opportunity to discuss frusterations or victories. Social interaction also a part of a goal to reduce feelings of isolation in a hospital setting. Goal Met for this Session: Yes Pt Benefit of Group: Contributions to Others, Increased Functional Strength Pt seemed to enjoy laughing and visiting with other patients; in addition, he was given the opportunity to work on functional strength with ther ex and ambulated to/from therapy session. Other/Notes Introductions paired with memories of 06/28; This patient remembered other patients and their names from previous meetings. He then was attentive to education on functional exercise importance. Ther ex performed with patient led exercises; he followed the instructions to complete and exercise and demonstrated it to the group. He counted the reps and effectively showed the other patients how to do his given exercise. Pt came to and exited group via ambulation with a FWW with CGA. Pt in room post treatment with needs met. Start Time: 13:00 Stop Time: 14:10 Total Billed Treatment Time: 70 Total Billed Treatment visit GRP 70 DANNA QUESADA PT Jun 29, 2019 14:39
--- NOTE | 2019-06-29 14:55 | Therapy Group Daily Note ---
Therapy Daily Group Note Patient Education Topic Exercises Exercises LE Seated Exercise, UE Exercise Session Ratio (pt:therapist): 4:1 Goal of Session: UE/LE Strengthing Goal Met for this Session: Yes Pt Benefit of Group: Contributions to Others, Increased Functional Strength, Improved Cognition, Recognition of Peers, Socialization Other/Notes Pt ambulated using FWW to OT/PT group. Group consisted of introduction (name, place living, memory of 06/28), socialization, pt led UE/LE seated exercises and education on the benefits of exercise. Pt introduced self then actively listened to peers. Pt participated in conversations and contributed to educational topics. Pt effectively led exercises and completed each exercise to the best of pt's ability. After therapy, pt lying in bed with call light/phone in reach. All needs met in room. Start Time: 13:00 Stop Time: 14:10 Total Billed Treatment Time: 70 Total Billed Treatment 1-GRP DANNA SINCLAIR Jun 29, 2019 14:55
--- NOTE | 2019-06-29 15:24 | NUR ---
SUPERCHARGE REPAIR SUPERVISOR met with patient to review team conference summary. As patient continues to require min assist for transfers, need for cues for safety and ambulating only short distances with continued struggles with pain, team has recommended patient be reevaluated at next team conference on 918. Patient is agreeable to this.
--- NOTE | 2019-06-29 15:26 | Speech Therapy Daily Note ---
Speech Daily Progress Note Subjective Date Seen by Provider: Jun 29, 2019 Time Seen by Provider: 00:30 The patient was resting in his bed after group this afternoon. Objective The patient completed memory tasks with 80% with minimal cues. Assessment Assessment Current Status: Good Progress Treatment Plan Continue Plan of Care Communication Comprehension: 6 Expression: 6 Social Cognition Social Interaction: 7 Problem Solvin Memory: 4 Speech Short Term Goals Short Term Goals Short Term Goals 1) The patient will complete memory tasks with 90% or greater accuracy given minimal cues. 2) The patient will complete problem solving tasks with 90% or greater accuracy given minimal cues. 3) The patient will complete safety awareness tasks with 90% or greater accuracy given minimal cues. Speech Half-Way Goals Oven Loader Goals The patient will improve cognitive function in order to return to his prior living situation safely. Speech-Plan Patient/Family Goals Patient/Family Goals: The patient will return home with his post rehab. Treatment Plan Speech Therapy Treatment Plan: Continue Plan of Care The patient continues to progress toward meeting cognitive goals. Treatment Duration: Jul 05, 2019 Frequency: 5 times per week Estimated Hrs Per Day: .5 hour per day Rehab Potential: Good Barriers to Learning: Patient has some mild cognitive deficits, which are resolving Pt/Family Agrees to Plan: Yes Safety Risks/Education Teaching Recipient: Patient Teaching Methods: Demonstration, Discussion Response to Teaching: Verbalize Understanding, Return Demonstration Education Topics Provided: Continued safety and communication of his wants/needs. Time Speech Therapy Time In: 14:30 Speech Therapy Time Out: 15:00 Total Billed Time: 30 Billed Treatment Time 1, CARMEN [place] Jun 29, 2019 15:26
[2019-06-29 15:42] VITALS: BP 112/64
[2019-06-29 21:47] VITALS: BP 115/62
[2019-06-29] MEDS: ACETAMINOPHEN 500 MG TAB (TYLENOL) PO PRN (21:49)
[2019-06-29] MEDS: MELATONIN 3 MG TABLET PO PRN (21:49)
[2019-06-29] MEDS: MONTELUKAST 10 MG (SINGULAIR) TAB PO SCH (21:49)
[2019-06-29] MEDS: OLANZapine 5 MG ODT (ZyPREXA ZYDIS) PO SCH (21:50)
[2019-06-30] MEDS: inSUlin ASPART (NovoLOG) 1 UNIT/0.01 ML (CHARGE PER UNIT) SC SCH ×4 (05:40→21:13)
[2019-06-30 06:06] VITALS: BP 123/66
[2019-06-30] MEDS: LACTOBACILLUS Acidoph/Bulgar 1 GM (LACTINEX) PACKET PO SCH ×4 (06:18→21:11)
[2019-06-30] MEDS: RT-ALBUTEROL SULF 2.5 MG/3 ML PRE-MIX VIAL INH SCH ×2 (07:37→20:15)
[2019-06-30] MEDS: RT-ADVAIR HFA 115/21 MCG PER PUFF IH SCH ×2 (07:37→20:15)
[2019-06-30 08:00] VITALS: BP 111/80
--- NOTE | 2019-06-30 08:00 | NUR ---
STATES SLEEPING WELL WITH MELATONIN, BUT STILL TIRED. FEELS PAIN IN LEFT HIP IS MUCH BETTER. CONTINUES TO JUST TAKE TYLENOL FOR PAIN.
[2019-06-30] MEDS: SACUBITRIL/VALSARTAN 24/26 MG (ENTRESTO) TABLET PO SCH ×2 (10:02→21:12)
[2019-06-30] MEDS: CARVEDILOL 3.125 MG (COREG) TABLET PO SCH ×2 (10:03→21:11)
[2019-06-30] MEDS: SERTRALINE 100 MG (ZOLOFT) TAB PO SCH (10:03)
[2019-06-30] MEDS: PANTOPRAZOLE 40 MG (PROTONIX) TAB PO SCH (10:03)
[2019-06-30] MEDS: LORATADINE (CLARITIN) 10 MG TAB PO SCH (10:03)
[2019-06-30] MEDS: CEFDINIR 300 MG (OMNICEF) CAP PO SCH (10:03)
[2019-06-30] MEDS: ACETAMINOPHEN 500 MG TAB (TYLENOL) PO PRN (10:06)
[2019-06-30] MEDS: SENNA W/DOCUSATE (SENOKOT S) TABLET PO SCH ×2 (10:08→21:16)
[2019-06-30] MEDS: FLUTICASONE NASAL SPRAY (FLONASE) 16 GM BTL NS SCH (10:08)
--- NOTE | 2019-06-30 11:04 | Physical Therapy Daily Note ---
PT Daily Note-Current Subjective Pt. agrees to Rx.States his pain is much improved Pain Location: No Pain Reported Mental Status Patient Orientation: Normal For Age Transfers Therapy Code Descriptions/Definitions Functional [place] Measure: 0=Not Assessed/NA 4=Minimal Assistance 1=Total Assistance 5=Supervision or Setup 2=Maximal Assistance 6=Modified [place] 3=Moderate Assistance 7=Complete [place] Therapy Quality Codes: 6 Independent with activity with or without an assistive device 5 Patient requires set up or clean up by helper. Patient completes activity by themselves 4 Supervision or touching assist (CGA). [place] provide cues , steadying assist 3 The helper provides less than half the effort to complete the activity 2 The helper provides more than half the effort to complete the activity 1 Dependent. The helper does all the effort to complete an activity 7 Patient refused to complete or attempt activity 9 The patient did not perform the activity before the current illness or injury 88 Not attempted due to Medical conditions or safety concerns Transfers (B, C, W/C) (FIM): 6 Scootin Rollin Supine to/from Sit: 6 Sit to/from Stand: 6 Weight Bearing Right Lower Extremity: Right Weight Bearing/Tolerated Left Lower Extremity: Left Weight Bearing/Tolerated Gait Training Does the Patient Walk?: Yes Gait (FIM): 5 Distance (FIM): 3=150 ft (200x2) Gait Level of Assist: 5 Gait Persons Needed: 1 Gait Assistive Device: FWW SBA and instruction for step length and heel strike Exercises Supine Ex: Bridging, Ankle pumps, Quad Set, Rolling, Glut sets, Heel Slides, Short Arc Quads, Scooting, Straight leg raise, Hip abd/add Supine Reps: 15 Treatments seated alternating reciprocal U&L extremity exercises x 10min Assessment Current Status: Good Progress PT Short Term Goals Short Term Goals Time Frame: Jul 07, 2019 Gait (FIM): 4 Distance (FIM): 3=150 ft Gait Distance Comment: 150' Gait Level of Assist: 4 Gait Assistive Device: FWW Stairs (FIM): 2 # of Steps: 4 Stairs Level of Assist: 4 PT Intermediate Goals Breaking Machine Operator Goals PT Breaking Machine Operator Goals Time Frame: Jul 21, 2019 Transfers (B,C,W/C) (FIM): 6 Sit to Lying (QC): 6 Lying-Sitting on Side/Bed(QC): 6 Sit to Stand (QC): 6 Rollin Roll Left to Right (QC): 6 Chair/Hqu-hd-Ibjje Xfer(QC): 6 Car Transfer (QC): 6 Does the Patient Walk: Yes Gait (FIM): 6 Gait distance (FIM): 3=150 ft Distance: 250' Walk 10 feet (QC): 6 Walk 10ft-Uneven Surface(QC): 6 Walk 50ft with 2 Turns (QC): 6 Walk 150 ft (QC): 6 Gait Level of Assist: 6 Gait Assistive Device: FWW Stairs (FIM): 6 # of Steps: 12 1 Step (curb) (QC): 6 4 Steps (QC): 6 12 Steps (QC): 6 Stairs Level Of Assist: 6 Picking up an Object (QC): 6 PT Plan Treatment/Plan Treatment Plan: Continue Plan of Care Treatment Plan: Bed Mobility, Education, Functional Activity Tessie, Functional Strength, Group Therapy, Gait, Safety, Therapeutic Exercise, Transfers Treatment Duration: Jul 21, 2019 Frequency: At least 5 of 7 days/Wk (IRF) Estimated Hrs Per Day: 1.5 hours per day Patient and/or Family Agrees t: Yes Safety Risks/Education Patient Education: Gait Training, Transfer Techniques, Correct Positioning, Disease Process, Safety Issues Teaching Recipient: Patient Teaching Methods: Demonstration, Discussion Response to Teaching: Verbalize Understanding, Return Demonstration, Reinforcement Needed Time/GCodes Time In: 1000 Time Out: 1100 Total Billed Treatment Time: 60 Total Billed Treatment 1,GT20m,FA10m,EX30m NICK JOHANSEN AVIONICS TECHNICIAN Jun 30, 2019 11:04
--- NOTE | 2019-06-30 12:13 | Progress Note ---
[facility] 06/30/19 1213: Subjective Date Seen by a Provider: Jun 30, 2019 Time Seen by a Provider: 06:40 Subjective/Events-last exam Pt is sleepy this AM, but easily arousable stable BP Denies any pain Has been progressing well in PT/OT/ST Review of Systems General: No Chills, No Fatigue HEENT: No Head Aches Pulmonary: No Dyspnea, No Cough Cardiovascular: No: Chest Pain, Palpitations Gastrointestinal: No: Nausea, Vomiting Genitourinary: No Dysuria Objective Exam Last Set of Vital Signs Vital Signs Date Time Temp Pulse Resp B/P (MAP) Pulse Ox O2 Delivery O2 Flow Rate FiO2 06/30/19 07:37 94 Room Air 06/30/19 06:06 36.1 74 18 123/66 Capillary Refill : I&O Intake and Output 06/30/19 00:00 Intake Total 1390 ml Balance 1390 ml Intake Oral 1390 ml # Voids 4 # Bowel Movements 1 General: Alert, Oriented X3, Cooperative, No Acute Distress HEENT: Atraumatic Lungs: Clear to Auscultation, Normal Air Movement Heart: Regular Rate, Normal S1, Normal S2, No Murmurs Results Lab Laboratory Tests 06/29/19 15:41: Glucometer 270H 06/29/19 20:41: Glucometer 261H 06/30/19 05:14: Glucometer 168H 06/30/19 11:20: Glucometer 215H Assessment/Plan Assessment/Plan Assess & Plan/Chief Complaint Left femur fracture s/p fall after missed 1 step on stairs s/p repair POD # 7 Acute and severe delirium with severe insomnia x 5 days now resolved with Zyprexa at night will decrease from 5mg at night to 2.5mg to wean off Sepsis due to URI and acute sinusitis and bronchitis placed on Zosyn and changed to PO abx today Flash pulmonary edema s/p Lasix IV may need to change to PO? 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 diff history h/o ARF while at [facility] for ALL induction PUD Remission for acute lymphocytic leukemia for [address] Perez Ischemic cardiomyopathy with improvement in ejection fraction from 30 percent to 55 percent due to Entresto management but now decreased since acute illness so may need life vest and defib Improvement in performing ADLs Plan: IRF Monitor for ACS and CHF DVT PPx per Dr Nettles Continue on Coreg and Entresto Tylenol for pain Monitor Hgb and blood sugar Monitor chemistry (BUN, Cr) Continue with PT/OT/ST Diagnosis/Problems Diagnosis/Problems (1) Fracture of femur, intertrochanteric, left, closed Status: Acute Qualifiers: Clinical Quality Measures Admission Status Admission Dx Uncomplicated L hip fracture with repair Delirium Anemia Constipation General Weakness Hx of CAD and CHF Hx of DM Hx of hyperlipidemia Hx of HTN Hx of Leukemia Continue PT/OT Continue Olanzapine PO @ bedtime and Monitor closely for improvement of delirium Maintain BM regimen Monitor Bowel and bladder function, and labs for improvement Monitor Hgb and platelet count Maintain HTN, DM regimen/meds Continue to use Sequential Compression Device for DVT prophylaxis & monitor lab work serially Continue with diuretics Continue with Carvedilol and Sacubitril-Valsartan and Monitor for tolerance and response closely DVT/VTE Risk/Contraindication: Risk Factor Score Per Nursin RFS Level Per Nursing on Admit: 4+=Very High ROSALINDA ARENAS DO 06/30/19 1540: Supervisory-Addendum Brief Verification & Attestation Participated in pt care: history, MDM, physical Personally performed: exam, history, MDM, supervision of care Care discussed with: Medical Student Procedures: n/a Results interpretation: Verified all documentation Verification and Attestation of Medical Student E/M Service A medical student performed and documented this service in my presence. I reviewed and verified all information documented by the medical student and made modifications to such information, when appropriate. I personally performed the physical exam and medical decision making. Rosalinda Arenas, Jun 30, 2019,15:39 [facility] Jun 30, 2019 12:13 ROSALINDA ARENAS DO Jun 30, 2019 15:40
--- NOTE | 2019-06-30 12:24 | Pulmonary Progress Note ---
Standard Progress Note Progress Notes Date Seen by Provider: Jun 30, 2019 Time Seen by Provider: 11:45 Pt is sitting up in chair and states he is doing great. He is coughing up a lot of white thick phlegm. Assessment & Plan Lungs CTA COPD - stable -pt is not requiring oxygen -medications reviewed: on advair, singulair and claritin -cxr reviewed from 06/23 showing chronic condition (Admission note, pulmonary notes, images, labs, were reviewed from recent hospital stay in order to provide continued care.) IVONNE GUZMAN APRN Jun 30, 2019 12:24
--- NOTE | 2019-06-30 12:45 | Occupational Ther Daily Note ---
OT Current Status-Daily Note Subjective Pt in bed, agrees to therapy. Pt reports 4/10 pain in left hip. Mental Status/Objective Therapy Code Descriptions/Definitions Functional [place] Measure: 0=Not Assessed/NA 4=Minimal Assistance 1=Total Assistance 5=Supervision or Setup 2=Maximal Assistance 6=Modified [place] 3=Moderate Assistance 7=Complete [place] ADL-Treatment Pt supine to sit with supervision. Sit to stand with SBA. Gait to restroom with FWW. Pt sat at sink to complete oral care and shave with modified independence while seated. Transfer to toilet with supervision. Pt able to complete toileting hygiene, manage clothing with supervision. Transfer to walk in shower with SBA. Pt doffed clothing with SBA. Seated bathing completed using hand held shower and long handled sponge. Pt able to wash all areas with SBA. Don pullover shirt with set up. Pt used AE to don underwear and pants. Stood with supervision for balance during pant hike. Pt donned bilateral socks with set up using sock aid. Combed hair with modified independence. Pt transferred to chair with FWW. Performed sit to stand x5 trials to increase strength needed for functional transfers. Pt requires cues for hand placement and safety during sit to stand transfers. Pt sitting in chair with needs met and chair alarm in place after session. Therapy Code Descriptions/Definitions Functional [place] Measure: 0=Not Assessed/NA 4=Minimal Assistance 1=Total Assistance 5=Supervision or Setup 2=Maximal Assistance 6=Modified [place] 3=Moderate Assistance 7=Complete [place] Therapy Quality Codes: 6 Independent with activity with or without an assistive device 5 Patient requires set up or clean up by helper. Patient completes activity by themselves 4 Supervision or touching assist (CGA). [place] provide cues , steadying assist 3 The helper provides less than half the effort to complete the activity 2 The helper provides more than half the effort to complete the activity 1 Dependent. The helper does all the effort to complete an activity 7 Patient refused to complete or attempt activity 9 The patient did not perform the activity before the current illness or injury 88 Not attempted due to Medical conditions or safety concerns Grooming (FIM): 6 Oral Hygiene (QC): 6 Bathing (FIM): 5 Shower/Bathe Self (QC): 4 Upper Body (FIM): 5 Upper Body Dressing (QC): 5 Lower Body Dressing (FIM): 5 Lower Body Dressing (QC): 4 On/Off Footwear (QC): 5 Toileting (FIM): 5 Toilet/Commode Transfer (FIM): 5 Shower Transfer(FIM): 5 OT Short Term Goals Short Term Goals Time Frame: Jul 07, 2019 Bathing(FIM): 4 Upper Body Dressing(FIM): 5 Lower Body Dressing(FIM): 4 Toileting(FIM): 4 Toilet/Commode Transfer(FIM): 4 Additional Short Term Goals: 1-Demonstrate ADL Tasks, 2-Verbalize Understanding, 3-ImproveStrength/Tessie 1=Demonstrate adherence to instructed precautions during ADL tasks. 2=Patient will verbalize/demonstrate understanding of assistive devices/modifications for ADL. 3=Patient will improve strength/tolerance for activity to enable patient to perform ADL's. OT Addiction Nurse Goals Addiction Nurse Goals Time Frame: Jul 21, 2019 Eating (FIM): 6 Eating (QC): 6 Groomin Oral Hygiene (QC): 6 Bathing(FIM): 5 Shower/Bathe Self (QC): 5 Upper Body Dressing(FIM): 6 Upper Body Dressing (QC): 6 Lower Body Dressing(FIM): 6 Lower Body Dressing (QC): 6 On/Off Footwear (QC): 6 Toileting(FIM): 6 Toileting Hygiene (QC): 6 Toilet/Commode Transfer(FIM): 6 Toilet/Commode Transfer (QC): 6 Shower Transfer(FIM): 5 Additional Goals: 1-Demonstrate ADL Tasks, 2-Verbalize Understanding, 3-Im proveStrength/[place] 1=Demonstrate adherence to instructed precautions during ADL tasks. 2=Patient will verbalize/demonstrate understanding of assistive devices/modifications for ADL. 3=Patient will improve strength/tolerance for activity to enable patient to perform ADL's. OT Education/Plan Discharge Recommendations Plan/Recommendations: Continue POC Treatment Plan/Plan of Care Patient would benefit from OT for education, treatment and training to promote independence in ADL's, mobility, safety and/or upper extremity function for ADL's. Plan of Care: ADL Retraining, Functional Mobility, Group Exercise/Act as Ind, UE Funct Exercise/Act Treatment Duration: Jul 21, 2019 Frequency: At least 5 of 7 days/Wk (IRF) Estimated Hrs Per Day: 1.5 hours per day Agreement: Yes Rehab Potential: Good Time/GCodes Start Time: 09:00 Stop Time: 10:00 Total Time Billed (hr/min): 60 Billed Treatment Time 1 visit, ADLx4(60minutes) CHEYANNE CHACON OT Jun 30, 2019 12:45
--- NOTE | 2019-06-30 13:13 | Cardiology Progress Note ---
Cardiology SOAP Progress Note Subjective: no cardiac complaints. Objective: I&O/Vital Signs 07/01/19 07/01/19 07/01/19 06:25 07:14 09:00 Temp 36.4 Pulse 66 Resp 18 B/P (MAP) 132/62 Pulse Ox 97 96 O2 Delivery Room Air Room Air Room Air 06/30/19 23:59 Intake Total 600 ml Balance 600 ml Weight (Pounds): 163 Weight (Ounces): 7.4 Weight (Calculated Kilograms): [id number] Constitutional: No appears stated age; AAO x 3; No apparent distress, No PERRL; well-developed, well-nourished; No other Respiratory: No accessory muscle use, No respiratory distress, No chest tender, No chest expansion is symmetric; chest is bilaterally symmetric; No lungs clear to percussion; lungs clear to auscultation; No crackles, No rhonchi, No rales, No stridor, No wheezing, No pleural rub, No other Cardiovascular: regular rate-rhythm; No irregularly irregular, No extra beats, No parasternal heave is noted, No JVD, No edema, No bradycardia, No tachycardia, No point of maximal impulse, No cardiac thrills are palpable; S1 and S2; No gallop/S3, No gallop/S4, No diastolic murmur, No systolic murmur, No friction rub, No click, No other Gastrointestional: No tender; soft, round; No distended, No pulsatile mass, No organomegaly, No guarding, No rebound, No tenderness, No hernia, No mass; audible bowel sounds; No abnormal bowel sounds, No abdominal bruits, No spleenomegaly, No other Extremities: normal range of motion, non-tender, normal inspection; No pedal edema, No calf tenderness, No normal capillary refill, No pelvis stable, No calf tenderness, No inflammation, No pedal edema, No slow capillary refill, No swelling, No other, No abrasion, No clubbing, No cyanosis, No ecchymosis, No laceration; no lower extremity edema bilateral; No significant edema, No tenderness, No wound Neurologic/Psychiatric: no motor/sensory deficits, alert, normal mood/affect, oriented x 3 Skin: warm/dry Results/Procedures: Labs Laboratory Tests 06/30/19 15:42: Glucometer 114H 06/30/19 20:19: Glucometer 196H 07/01/19 05:29: Glucometer 115H 07/01/19 12:24: Glucometer 207H A/P: Assessment/Dx: Hip fracture Coronary artery disease Carotid stenosis ALL Ischemic cardiomyopathy Plan: Left femur fracture, post surgical repair done on June 19, 2019. Undergoing rehabilitation. Continue to monitor Anemia, mild thrombocytopenia, save blood transfusion, managed by Dr. Perez Status post respiratory failure, better, responded to diuretics. Congestive heart failure, acute on chronic left ventricular systolic dysfunction, secondary to chemotherapy and coronary artery disease, ischemic and nonischemic cardiomyopathy, echocardiogram showed ejection fraction 25-30 percent, continue on Coreg and Entresto. Monitor tolerance and response closely. History of orthostatic dizziness and hypotension, near-syncope, no current syncopal episodes or dizziness reported. Coronary artery disease status post CABG x3 in 2004, cardiac catheterization in April 2014 which showed patent bypass grafts with small vessel disease distally mainly in the LAD system that was receiving retrograde collateral, treated conservatively. Cardiac catheterization was done on November 07, 2014 showing small vessel disease, patent MAHONEY to LAD, vein graft to the circumflex artery and vein graft to the right coronary artery, repeat cardiac catheterization was done in August 2016 showing patent MAHONEY to LAD, vein graft to the obtuse marginal branch with sluggish flow in the [place] circumflex artery, patent vein graft to the right coronary artery, the proximal [place] coronary arteries appear slightly worse with occlusion of the left main, the LAD and diagonal artery are getting collaterals from the right system. He has been asymptomatic. Continue to monitor. Mild bilateral carotid stenosis, ultrasound was done in March 2018. Continue to monitor History of esophageal spasm, EGD by Dr. Manzanares , reporting improvement. 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 Nettles, continue to monitor. 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 Nettles. Hypertension, controlled on current medication, continue to monitor Hyperlipidemia, continue to monitor lipids. Managed by Dr. Watts. Diabetes mellitus, managed and followed by primary care physician. History of atrial flutter status post ablation in 2004, currently in sinus rhythm. Continue to monitor Thank you for your consultation. Please call me if you have any questions. Bobby Crawford MD, FACP, FACC, FSCAI, FHRS, CCDS Interventional Cardiology Cardiac Electrophysiology Vascular Medicine and Endovascular Interventions Murphy CRAWFORD MD Jun 30, 2019 13:13
--- NOTE | 2019-06-30 13:28 | Speech Therapy Daily Note ---
Speech Daily Progress Note Subjective Date Seen by Provider: Jun 30, 2019 Time Seen by Provider: 00:30 The patient was sitting up in his recliner, stated he feels pretty good. Objective The patient completed problem solving questions related to his daily needs at 90% with minimal cues. Assessment Assessment Current Status: Good Progress Treatment Plan Continue Plan of Care Communication Comprehension: 6 Expression: 6 Social Cognition Social Interaction: 7 Problem Solvin Memory: 4 Speech Short Term Goals Short Term Goals Short Term Goals 1) The patient will complete memory tasks with 90% or greater accuracy given minimal cues. 2) The patient will complete problem solving tasks with 90% or greater accuracy given minimal cues. 3) The patient will complete safety awareness tasks with 90% or greater accuracy given minimal cues. Speech Garment Form Assembler Goals Garment Form Assembler Goals The patient will improve cognitive function in order to return to his prior living situation safely. Speech-Plan Patient/Family Goals Patient/Family Goals: The patient plans on returning home where he lives with his when he is discharged. Treatment Plan Speech Therapy Treatment Plan: Continue Plan of Care The patient has made good progress toward meeting ST goals for cognitive function. Treatment Duration: Jul 05, 2019 Frequency: 5 times per week Estimated Hrs Per Day: .5 hour per day Rehab Potential: Good Barriers to Learning: Patient has mild cognitive deficits which appear to be resolving. Pt/Family Agrees to Plan: Yes Safety Risks/Education Teaching Recipient: Patient Teaching Methods: Demonstration, Discussion Response to Teaching: Verbalize Understanding, Return Demonstration Education Topics Provided: Continued safety within his room. Time Speech Therapy Time In: 11:30 Speech Therapy Time Out: 12:00 Total Billed Time: 30 Billed Treatment Time 1, CARMEN [place] Jun 30, 2019 13:28
--- NOTE | 2019-06-30 14:25 | Therapy Group Daily Note ---
Therapy Daily Group Note Patient Education Topic Other List Below (causes of balance issues and ways to manage) Exercises LE Seated Exercise, UE Exercise, Other (core) Session Ratio (pt:therapist): 4:1 Goal of Session: Other (list) (knowledge of causes of balance issues and ways to manage ) Goal Met for this Session: Yes Pt Benefit of Group: Increased Functional Safety, Increased Functional Strength, Socialization Other/Notes Pt. participated in group PT OT session. Pt. ambulated to from with CGA. Pt socialized , introducing himself and sharing . Education consisted of brief explanation of ARU requirements and expectations as well as what the components of balance are and how to improve balance with exercise via strengthening and stretching as well as safety and awareness.. Pts. all participated in seated core exercises as well as LE and UE exercise. Pt. to room after Rx with ball at hand Start Time: 13:00 Stop Time: 14:10 Total Billed Treatment Time: 70 Total Billed Treatment 1,GRP NICK JOHANSEN WARP DYEING TENDER Jun 30, 2019 14:25
--- NOTE | 2019-06-30 15:00 | NUR ---
WAS FITTED FOR LIFT VEST. PATIENT STATES WILL GET VEST ON WEDNESDAY.
--- NOTE | 2019-06-30 15:32 | PM&R Progress Note ---
Subjective HPI/CC On Admission Date Seen by Provider: Jun 30, 2019 Time Seen by Provider: 15:00 CC: Debility following left hip fracture HPI: This is a 78yoWM clinic pt of [facility] with sever comorbidities who had an uncomplicated left hip fracture repair by Dr. Richards on Wednesday after sustaining a fall at his daughters office after missing a step on the stairs an subsequently was repaired but had some flash pulmonary edema requiring transfer to the ICU and lactic acid elevation with acute sinusitis requiring Zosyn antibiotics empirically along with IV Lasix with close monitoring and severe delirium requiring a live sitter since he was such a fall risk and received two units of blood with good improvement in Hgb of 7.5 and decreased platelet counts so Dr. Alvarado, Dr Nettles, Dr. Foreman and Dr. Richards agreed with plan to transfer to ICU and he was improving significantly so and delirium was improved to the point to where he was able to DC to inpatient rehab and continue his intensive therapies which may require 15/7 intensity because of the delirium but will try our best to initiate. Weight bearing is tolerated per Dr. Richards and we will monitor bowel function, and bladder function and monitor labs in the meantime. 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 Subjective/Events-last exam Did not set off the alarm last night Slept better last night after taking melatonin Ate well for breakfast and lunch Blood sugar and blood pressures are much improved LifeVest was fitted in place today Patient feels like he is progressing well Had some loose stools Weakness is improved Confusion is clearing Blood sugars reviewed Conferred with RN Reviewed therapy notes Check meds and labs Nebulizer treatments are tolerated Pain is controlled Delirium much improved Review of Systems General: Fatigue Musculoskeletal: leg pain Objective Exam Vital Signs Vital Signs Date Time Temp Pulse Resp B/P (MAP) Pulse Ox O2 Delivery O2 Flow Rate FiO2 06/30/19 15:56 36.3 70 14 110/66 96 Room Air Capillary Refill : General Appearance: No Apparent Distress, WD/WN, Chronically ill HEENT: PERRL/EOMI, Normal ENT Inspection, Pharynx Normal, Moist Mucous Membranes Neck: Full Range of Motion, Normal Inspection, Non Tender, Supple Respiratory: Chest Non Tender, No Accessory Muscle Use, No Respiratory Distress, Crackles (L>R improved today only subtle finding) Cardiovascular: Regular Rate, Rhythm, No Edema, No Gallop, No JVD, No Murmur Gastrointestinal: Normal Bowel Sounds, No Organomegaly, No Pulsatile Mass, Non Tender, Soft Back: Normal Inspection, No CVA Tenderness, No Vertebral Tenderness Extremity: Normal Capillary Refill, Normal Inspection, Normal Range of Motion (except left leg), Non Tender, No Calf Tenderness, No Pedal Edema Neurologic/Psychiatric: Alert, Oriented x3, No Motor/Sensory Deficits, Normal Mood/Affect, art psychotherapist II-XII Norm as Tested, Disoriented Skin: Normal Color, Warm/Dry Lymphatic: No Adenopathy Results/Procedures Lab Patient resulted labs reviewed. FIM Transfers Therapy Code Descriptions/Definitions Functional [place] Measure: 0=Not Assessed/NA 4=Minimal Assistance 1=Total Assistance 5=Supervision or Setup 2=Maximal Assistance 6=Modified [place] 3=Moderate Assistance 7=Complete [place] Therapy Quality Codes: 6 Independent with activity with or without an assistive device 5 Patient requires set up or clean up by helper. Patient completes activity by themselves 4 Supervision or touching assist (CGA). [place] provide cues , steadying assist 3 The helper provides less than half the effort to complete the activity 2 The helper provides more than half the effort to complete the activity 1 Dependent. The helper does all the effort to complete an activity 7 Patient refused to complete or attempt activity 9 The patient did not perform the activity before the current illness or injury 88 Not attempted due to Medical conditions or safety concerns Transfers (B, C, W/C) (FIM): 6 Scootin Rollin Roll Left to Right (QC): 4 Supine to/from Sit: 6 Sit to/from Stand: 6 Sit to Lying (QC): 3 Sit to Stand (QC): 4 Chair/[id number]-Vnmmr Xfer(QC): 4 Bed to/from Chair: 5 Car Transfer (QC): 3 Gait Training Does the Patient Walk?: Yes Gait (FIM): 5 Distance (FIM): 3=150 ft (200x2) Distance: 150 ft x 2 with FWW Walk 10 feet (QC): 4 Walk 50 ft with 2 Turns(QC): 88 Walk 150 ft (QC): 88 Walking 10ft/uneven surface-QC: 4 Gait Level of Assist: 5 Gait Persons Needed: 1 Gait Assistive Device: FWW Wheelchair Training Does the Pt Use a Wheelchair?: No Stair Training Stairs (FIM): 1 #of Steps: 1 1 Step (curb) (QC): 3 4 Steps (QC): 88 12 Steps (QC): 88 Level of Assist: 3 Mental Status/Objective Comprehension: 6 Expression: 6 Social Interaction: 7 Problem Solvin Memory: 4 ADL-Treatment Feedin Eating (QC): 6 Groomin Oral Hygiene (QC): 6 Bathin Shower/Bathe Self (QC): 4 Upper Extremity Dressin Upper Body Dressing (QC): 5 Lower Extremity Dressin Lower Body Dressing (QC): 4 On/Off Footwear (QC): 5 Toiletin Toileting Hygiene (QC): 4 Toilet/Commode Transfer: 5 Toilet Transfer (QC): 4 Shower: 5 Assessment/Plan Assessment and Plan Assess & Plan/Chief Complaint Assessment: Left femur fracture s/p fall after missed 1 step on stairs s/p repair POD # 12 Acute and severe delirium with severe insomnia x 5 days now resolved with Zyprex a at night will decrease from 5mg at night to 2.5mg to wean off Sepsis due to URI and acute sinusitis and bronchitis placed on Zosyn and changed to PO abx Flash pulmonary edema s/p Lasix CHF EF 30% decreased from 50% on ECHO will need Life vest for 90 days then possible defib s/p post op anemia s/p 2 units of blood in ICU improved hgb 11 today COPD on Singulair and Claritin and ICS prn restarted on home meds and Nebs 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 diff history h/o ARF while at [facility] for ALL induction PUD Remission for acute lymphocytic leukemia for [address] Perez Ischemic cardiomyopathy with improvement in ejection fraction from 30 percent to 55 percent due to Entresto management but now decreased since acute illness so needs life vest then defib Plan: IRF DVT PPx per Dr Nettles if needed with Lovenox Monitor for ACS and CHF Appreciate Dr Foreman and Dr Richards and Dr Alvarado and Dr Nettles DC antibiotics since completed treatment LifeVest maintenance Staple removal next Wednesday Minimize bed alarm interruptions Change Nebs to Albuterol only (1) Fracture of femur, intertrochanteric, left, closed Status: Acute Qualifiers: Encounter type: subsequent encounter (2) Non-ST elevation myocardial infarction (NSTEMI) Status: Acute (3) CAD (coronary artery disease) Status: Chronic Qualifiers: Coronary Disease-Associated Artery/Lesion type: [place] artery [place] vs. transplanted heart: [place] heart Associated angina: without angina Qualified Codes: I25.10 - Atherosclerotic heart disease of [place] coronary artery without angina pectoris (4) ALL (acute lymphocytic leukemia) Status: Chronic (5) Neuropathy Status: Chronic (6) Renal insufficiency Status: Chronic (7) Hypertension Status: Chronic Qualifiers: Hypertension type: essential hypertension Qualified Codes: I10 - Essential (primary) hypertension (8) Sciatic neuropathy Status: Chronic (9) Ischemic cardiomyopathy Status: Chronic (10) Postoperative pain Status: Acute (11) Postoperative anemia Status: Acute (12) History of Clostridium difficile infection Status: Chronic (13) COPD (chronic obstructive pulmonary disease) Status: Chronic Qualifiers: COPD type: unspecified COPD Qualified Codes: J44.9 - Chronic obstructive pulmonary disease, unspecified (14) Acute delirium Status: Acute (15) Sepsis Status: Resolved Resolution Date/Time: 06/24/19 @ 07:04 (16) Orthostasis Status: Chronic (17) Flash pulmonary edema Status: Resolved Resolution Date/Time: 06/24/19 @ 07:04 (18) Troponin level elevated Status: Resolved Resolution Date/Time: 06/24/19 @ 07:04 (19) COPD with acute exacerbation Status: Resolved Resolution Date/Time: 06/24/19 @ 07:04 (20) Elevated brain natriuretic peptide (BNP) level Status: Resolved Resolution Date/Time: 06/24/19 @ 07:04 (21) Transfusion of blood during current hospitalization Status: Resolved Resolution Date/Time: 06/24/19 @ 07:04 (22) Elevated lactic acid level Status: Resolved Resolution Date/Time: 06/24/19 @ 07:04 (23) Fever Status: Resolved Resolution Date/Time: 10/18/18 @ 12:40 (24) Shortness of breath Status: Resolved Resolution Date/Time: 10/18/18 @ 12:40 (25) Cough Status: Acute (26) Pneumonia Status: Acute (27) Non-ST elevation myocardial infarction (NSTEMI) Status: Acute (28) Dehydration, moderate Status: Resolved Resolution Date/Time: 10/18/18 @ 12:41 (29) Severe anemia Status: Acute ADALBERTO ARENAS DO Jun 30, 2019 15:31
[2019-06-30 15:56] VITALS: BP 110/66
[2019-06-30] MEDS: MONTELUKAST 10 MG (SINGULAIR) TAB PO SCH (21:12)
[2019-06-30] MEDS: OLANZapine 5 MG ODT (ZyPREXA ZYDIS) PO SCH (21:12)
[2019-07-01] MEDS: MELATONIN 3 MG TABLET PO PRN ×2 (00:36→20:42)
[2019-07-01] MEDS: inSUlin ASPART (NovoLOG) 1 UNIT/0.01 ML (CHARGE PER UNIT) SC SCH ×4 (05:31→20:20)
[2019-07-01 06:25] VITALS: BP 132/62
[2019-07-01] MEDS: LACTOBACILLUS Acidoph/Bulgar 1 GM (LACTINEX) PACKET PO SCH ×4 (06:35→20:20)
[2019-07-01] MEDS: RT-ALBUTEROL SULF 2.5 MG/3 ML PRE-MIX VIAL INH SCH ×2 (07:14→20:08)
[2019-07-01] MEDS: RT-ADVAIR HFA 115/21 MCG PER PUFF IH SCH ×2 (07:15→20:08)
[2019-07-01 08:00] VITALS: BP 120/61
[2019-07-01] MEDS: SERTRALINE 100 MG (ZOLOFT) TAB PO SCH (08:41)
[2019-07-01] MEDS: SACUBITRIL/VALSARTAN 24/26 MG (ENTRESTO) TABLET PO SCH ×2 (08:41→20:19)
[2019-07-01] MEDS: LORATADINE (CLARITIN) 10 MG TAB PO SCH (08:41)
[2019-07-01] MEDS: PANTOPRAZOLE 40 MG (PROTONIX) TAB PO SCH (08:41)
[2019-07-01] MEDS: CARVEDILOL 3.125 MG (COREG) TABLET PO SCH ×2 (08:41→20:19)
[2019-07-01] MEDS: SENNA W/DOCUSATE (SENOKOT S) TABLET PO SCH ×2 (08:44→20:19)
[2019-07-01] MEDS: FLUTICASONE NASAL SPRAY (FLONASE) 16 GM BTL NS SCH (08:44)
--- NOTE | 2019-07-01 11:28 | Physical Therapy Daily Note ---
PT Daily Note-Current Subjective Pt laying Supine in bed upon arrival. Pt agrees to PT. Pain Location: No Pain Reported Mental Status Patient Orientation: Person, Place, Time, Situation Transfers Therapy Code Descriptions/Definitions Functional [place] Measure: 0=Not Assessed/NA 4=Minimal Assistance 1=Total Assistance 5=Supervision or Setup 2=Maximal Assistance 6=Modified [place] 3=Moderate Assistance 7=Complete [place] Therapy Quality Codes: 6 Independent with activity with or without an assistive device 5 Patient requires set up or clean up by helper. Patient completes activity by themselves 4 Supervision or touching assist (CGA). [place] provide cues , steadying assist 3 The helper provides less than half the effort to complete the activity 2 The helper provides more than half the effort to complete the activity 1 Dependent. The helper does all the effort to complete an activity 7 Patient refused to complete or attempt activity 9 The patient did not perform the activity before the current illness or injury 88 Not attempted due to Medical conditions or safety concerns Scootin Supine to/from Sit: 5 Sit to/from Stand: 5 Sit to Stand (QC): 5 Weight Bearing Right Lower Extremity: Right Weight Bearing/Tolerated Left Lower Extremity: Left Weight Bearing/Tolerated Gait Training Does the Patient Walk?: Yes Gait (FIM): 5 Distance (FIM): 3=150 ft Distance: 200' x2 Walk 10 feet (QC): 5 Walk 50 ft with 2 Turns(QC): 5 Walk 150 ft (QC): 5 Gait Level of Assist: 5 Gait Persons Needed: 1 Gait Assistive Device: FWW Wheelchair Training Does the Pt Use a Wheelchair?: No Treatments Pt ambulates 200' in hallway then takes RB before ambulating again. Pt returns to EOB to rest at end of tx. Pt has all needs met, call light next to pt. Assessment Current Status: Good Progress Pt tolerates tx. well. PT Short Term Goals Short Term Goals Time Frame: Jul 07, 2019 Gait (FIM): 4 Distance (FIM): 3=150 ft Gait Distance Comment: 150' Gait Level of Assist: 4 Gait Assistive Device: FWW Stairs (FIM): 2 # of Steps: 4 Stairs Level of Assist: 4 PT Hospital Staff Pharmacist Goals Hospital Staff Pharmacist Goals PT Residential Goals Time Frame: Jul 21, 2019 Transfers (B,C,W/C) (FIM): 6 Sit to Lying (QC): 6 Lying-Sitting on Side/Bed(QC): 6 Sit to Stand (QC): 6 Rollin Roll Left to Right (QC): 6 Chair/Hqr-gz-Ghjhj Xfer(QC): 6 Car Transfer (QC): 6 Does the Patient Walk: Yes Gait (FIM): 6 Gait distance (FIM): 3=150 ft Distance: 250' Walk 10 feet (QC): 6 Walk 10ft-Uneven Surface(QC): 6 Walk 50ft with 2 Turns (QC): 6 Walk 150 ft (QC): 6 Gait Level of Assist: 6 Gait Assistive Device: FWW Stairs (FIM): 6 # of Steps: 12 1 Step (curb) (QC): 6 4 Steps (QC): 6 12 Steps (QC): 6 Stairs Level Of Assist: 6 Picking up an Object (QC): 6 PT Plan Problem List Problem List: Activity Tolerance Treatment/Plan Treatment Plan: Continue Plan of Care Treatment Plan: Bed Mobility, Education, Functional Activity Tessie, Functional Strength, Group Therapy, Gait, Safety, Therapeutic Exercise, Transfers Treatment Duration: Jul 21, 2019 Frequency: At least 5 of 7 days/Wk (IRF) Estimated Hrs Per Day: 1.5 hours per day Patient and/or Family Agrees t: Yes Safety Risks/Education Patient Education: Gait Training, Transfer Techniques, Correct Positioning, Safety Issues Teaching Recipient: Patient Teaching Methods: Discussion Response to Teaching: Verbalize Understanding Time/GCodes Time In: 1037 Time Out: 1050 Total Billed Treatment Time: 13 Total Billed Treatment 1, GT (13m) ANTONIO CASE ASSOCIATE [employer] Jul 01, 2019 11:28
--- NOTE | 2019-07-01 12:00 | NUR ---
FAMILY VISITING. PLEASANT AND COOPERATIVE AND DENIES COMPLAINTS.
--- NOTE | 2019-07-01 12:24 | PM&R Progress Note ---
Subjective HPI/CC On Admission Date Seen by Provider: Jul 01, 2019 Time Seen by Provider: 11:30 CC: Debility following left hip fracture HPI: This is a 78yoWM clinic pt of [facility] with sever comorbidities who had an uncomplicated left hip fracture repair by Dr. Richards on Wednesday after sustaining a fall at his daughters office after missing a step on the stairs an subsequently was repaired but had some flash pulmonary edema requiring transfer to the ICU and lactic acid elevation with acute sinusitis requiring Zosyn antibiotics empirically along with IV Lasix with close monitoring and severe delirium requiring a live sitter since he was such a fall risk and received two units of blood with good improvement in Hgb of 7.5 and decreased platelet counts so Dr. Alvarado, Dr Nettles, Dr. Foreman and Dr. Richards agreed with plan to transfer to ICU and he was improving significantly so and delirium was improved to the point to where he was able to DC to inpatient rehab and continue his intensive therapies which may require 15/7 intensity because of the delirium but will try our best to initiate. Weight bearing is tolerated per Dr. Richards and we will monitor bowel function, and bladder function and monitor labs in the meantime. 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 Subjective/Events-last exam Pt doing well and sugars are improved Decreased Levemir from 20 units to 10 starting last night to assure he does not have lows anymore No bed alarm was set off the last several nights Slept a little better overall BP 140/67, does get orthostatic at times Weakness is improved Confusion is clearing Conferred with RN Reviewed therapy notes Check meds and labs Nebulizer treatments are tolerated Pain is controlled Delirium much improved Review of Systems General: Fatigue Pulmonary: Cough Musculoskeletal: leg pain Neurological: Confusion Objective Exam Vital Signs Vital Signs Date Time Temp Pulse Resp B/P (MAP) Pulse Ox O2 Delivery O2 Flow Rate FiO2 07/01/19 15:36 37.0 69 16 120/67 97 Room Air Capillary Refill : General Appearance: No Apparent Distress, WD/WN, Chronically ill HEENT: PERRL/EOMI, Normal ENT Inspection, Pharynx Normal, Moist Mucous Membranes Neck: Full Range of Motion, Normal Inspection, Non Tender, Supple Respiratory: Chest Non Tender, Lungs Clear, Normal Breath Sounds, No Accessory Muscle Use, No Respiratory Distress Cardiovascular: Regular Rate, Rhythm, No Edema, No Gallop, No JVD, No Murmur Gastrointestinal: Normal Bowel Sounds, No Organomegaly, No Pulsatile Mass, Non Tender, Soft Back: Normal Inspection, No CVA Tenderness, No Vertebral Tenderness Extremity: Normal Capillary Refill, Normal Inspection, Normal Range of Motion (except left leg), Non Tender, No Calf Tenderness, No Pedal Edema Neurologic/Psychiatric: Alert, Oriented x3, No Motor/Sensory Deficits, Normal Mood/Affect, radio presenter II-XII Norm as Tested, Disoriented Skin: Normal Color, Warm/Dry Lymphatic: No Adenopathy Results/Procedures Lab Patient resulted labs reviewed. FIM Transfers Therapy Code Descriptions/Definitions Functional [place] Measure: 0=Not Assessed/NA 4=Minimal Assistance 1=Total Assistance 5=Supervision or Setup 2=Maximal Assistance 6=Modified [place] 3=Moderate Assistance 7=Complete [place] Therapy Quality Codes: 6 Independent with activity with or without an assistive device 5 Patient requires set up or clean up by helper. Patient completes activity by themselves 4 Supervision or touching assist (CGA). [place] provide cues , steadying assist 3 The helper provides less than half the effort to complete the activity 2 The helper provides more than half the effort to complete the activity 1 Dependent. The helper does all the effort to complete an activity 7 Patient refused to complete or attempt activity 9 The patient did not perform the activity before the current illness or injury 88 Not attempted due to Medical conditions or safety concerns Transfers (B, C, W/C) (FIM): 6 Scootin Rollin Roll Left to Right (QC): 4 Supine to/from Sit: 5 Sit to/from Stand: 5 Sit to Lying (QC): 3 Sit to Stand (QC): 5 Chair/Dls-vz-Hehxj Xfer(QC): 4 Bed to/from Chair: 5 Car Transfer (QC): 3 Gait Training Does the Patient Walk?: Yes Gait (FIM): 5 Distance (FIM): 3=150 ft Distance: 200' x2 Walk 10 feet (QC): 5 Walk 50 ft with 2 Turns(QC): 5 Walk 150 ft (QC): 5 Walking 10ft/uneven surface-QC: 4 Gait Level of Assist: 5 Gait Persons Needed: 1 Gait Assistive Device: FWW Wheelchair Training Does the Pt Use a Wheelchair?: No Stair Training Stairs (FIM): 1 #of Steps: 1 1 Step (curb) (QC): 3 4 Steps (QC): 88 12 Steps (QC): 88 Level of Assist: 3 Mental Status/Objective Comprehension: 6 Expression: 6 Social Interaction: 7 Problem Solvin Memory: 4 ADL-Treatment Feedin Eating (QC): 6 Groomin Oral Hygiene (QC): 6 Bathin Shower/Bathe Self (QC): 4 Upper Extremity Dressin Upper Body Dressing (QC): 5 Lower Extremity Dressin Lower Body Dressing (QC): 4 On/Off Footwear (QC): 5 Toiletin Toileting Hygiene (QC): 4 Toilet/Commode Transfer: 5 Toilet Transfer (QC): 4 Shower: 5 Assessment/Plan Assessment and Plan Assess & Plan/Chief Complaint Assessment: Left femur fracture s/p fall after missed 1 step on stairs s/p repair POD # 12 Acute and severe delirium with severe insomnia x 5 days now resolved with Zyprexa at night will decrease from 5mg at night to 2.5mg to wean off Sepsis due to URI and acute sinusitis and bronchitis placed on Zosyn and changed to PO abx Flash pulmonary edema s/p Lasix CHF EF 30% decreased from 50% on ECHO will need Life vest for 90 days then possible defib s/p post op anemia s/p 2 units of blood in ICU improved hgb 11 today COPD on Singulair and Claritin and ICS prn restarted on home meds and Nebs 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 diff history h/o ARF while at [facility] for ALL induction PUD Remission for acute lymphocytic leukemia for [address] Perez Ischemic cardiomyopathy with improvement in ejection fraction from 30 percent to 55 percent due to Entresto management but now decreased since acute illness so needs life vest then defib Plan: IRF DVT PPx per Dr Nettles if needed with Lovenox Monitor for ACS and CHF Appreciate Dr Foreman and Dr Richards and Dr Alvarado and Dr Nettles Change to PO abx soon Staple removal next Wednesday Minimize bed alarm interruptions Change Nebs to Albuterol only Much improved status, home this week (1) Fracture of femur, intertrochanteric, left, closed Status: Acute Qualifiers: Encounter type: subsequent encounter (2) Non-ST elevation myocardial infarction (NSTEMI) Status: Acute (3) CAD (coronary artery disease) Status: Chronic Qualifiers: Coronary Disease-Associated Artery/Lesion type: [place] artery [place] vs. transplanted heart: [place] heart Associated angina: without angina Qualified Codes: I25.10 - Atherosclerotic heart disease of [place] coronary artery without angina pectoris (4) ALL (acute lymphocytic leukemia) Status: Chronic (5) Neuropathy Status: Chronic (6) Renal insufficiency Status: Chronic (7) Hypertension Status: Chronic Qualifiers: Hypertension type: essential hypertension Qualified Codes: I10 - Essential (primary) hypertension (8) Sciatic neuropathy Status: Chronic (9) Ischemic cardiomyopathy Status: Chronic (10) Postoperative pain Status: Acute (11) Postoperative anemia Status: Acute (12) History of Clostridium difficile infection Status: Chronic (13) COPD (chronic obstructive pulmonary disease) Status: Chronic Qualifiers: COPD type: unspecified COPD Qualified Codes: J44.9 - Chronic obstructive pulmonary disease, unspecified (14) Acute delirium Status: Acute (15) Sepsis Status: Resolved Resolution Date/Time: 06/24/19 @ 07:04 (16) Orthostasis Status: Chronic (17) Flash pulmonary edema Status: Resolved Resolution Date/Time: 06/24/19 @ 07:04 (18) Troponin level elevated Status: Resolved Resolution Date/Time: 06/24/19 @ 07:04 (19) COPD with acute exacerbation Status: Resolved Resolution Date/Time: 06/24/19 @ 07:04 (20) Elevated brain natriuretic peptide (BNP) level Status: Resolved Resolution Date/Time: 06/24/19 @ 07:04 (21) Transfusion of blood during current hospitalization Status: Resolved Resolution Date/Time: 06/24/19 @ 07:04 (22) Elevated lactic acid level Status: Resolved Resolution Date/Time: 06/24/19 @ 07:04 (23) Fever Status: Resolved Resolution Date/Time: 10/18/18 @ 12:40 (24) Shortness of breath Status: Resolved Resolution Date/Time: 10/18/18 @ 12:40 (25) Cough Status: Acute (26) Pneumonia Status: Acute (27) Non-ST elevation myocardial infarction (NSTEMI) Status: Acute (28) Dehydration, moderate Status: Resolved Resolution Date/Time: 10/18/18 @ 12:41 (29) Severe anemia Status: Acute ADALBERTO ARENAS DO Jul 01, 2019 12:24
--- NOTE | 2019-07-01 13:12 | Cardiology Progress Note ---
Cardiology SOAP Progress Note Subjective: denies any cardiac complaints. Objective: I&O/Vital Signs 07/01/19 07/01/19 07/01/19 06:25 07:14 09:00 Temp 36.4 Pulse 66 Resp 18 B/P (MAP) 132/62 Pulse Ox 97 96 O2 Delivery Room Air Room Air Room Air 06/30/19 23:59 Intake Total 600 ml Balance 600 ml Weight (Pounds): 163 Weight (Ounces): 7.4 Weight (Calculated Kilograms): 74.464833 Constitutional: No appears stated age; AAO x 3; No apparent distress, No PERRL; well-developed, well-nourished; No other Respiratory: No accessory muscle use, No respiratory distress, No chest tender, No chest expansion is symmetric; chest is bilaterally symmetric; No lungs clear to percussion; lungs clear to auscultation; No crackles, No rhonchi, No rales, No stridor, No wheezing, No pleural rub, No other Cardiovascular: regular rate-rhythm; No irregularly irregular, No extra beats, No parasternal heave is noted, No JVD, No edema, No bradycardia, No tachycardia, No point of maximal impulse, No cardiac thrills are palpable; S1 and S2; No gallop/S3, No gallop/S4, No diastolic murmur, No systolic murmur, No friction rub, No click, No other Gastrointestional: No tender; soft, round; No distended, No pulsatile mass, No organomegaly, No guarding, No rebound, No tenderness, No hernia, No mass; aud ible bowel sounds; No abnormal bowel sounds, No abdominal bruits, No spleenomegaly, No other Extremities: normal range of motion, non-tender, normal inspection; No pedal edema, No calf tenderness, No normal capillary refill, No pelvis stable, No calf tenderness, No inflammation, No pedal edema, No slow capillary refill, No swelling, No other, No abrasion, No clubbing, No cyanosis, No ecchymosis, No laceration; no lower extremity edema bilateral; No significant edema, No tenderness, No wound Neurologic/Psychiatric: no motor/sensory deficits, alert, normal mood/affect, oriented x 3 Skin: warm/dry Results/Procedures: Labs Laboratory Tests 06/30/19 15:42: Glucometer 114H 06/30/19 20:19: Glucometer 196H 07/01/19 05:29: Glucometer 115H 07/01/19 12:24: Glucometer 207H A/P: Assessment/Dx: Hip fracture Coronary artery disease Carotid stenosis ALL Ischemic cardiomyopathy Plan: Left femur fracture, post surgical repair done on June 19, 2019. Undergoing rehabilitation. Continue to monitor Anemia, mild thrombocytopenia, save blood transfusion, managed by Dr. Perez Status post respiratory failure, better, responded to diuretics.significantly improved. Congestive heart failure, acute on chronic left ventricular systolic dysfunctio n, secondary to chemotherapy and coronary artery disease, ischemic and nonischemic cardiomyopathy, echocardiogram showed ejection fraction 25-30 percent, continue on Coreg and Entresto. Monitor tolerance and response closely. significantly improved. History of orthostatic dizziness and hypotension, near-syncope, no current syncopal episodes or dizziness reported. Coronary artery disease status post CABG x3 in 2004, cardiac catheterization in April 2014 which showed patent bypass grafts with small vessel disease distally mainly in the LAD system that was receiving retrograde collateral, treated cons ervatively. Cardiac catheterization was done on November 07, 2014 showing small vessel disease, patent MAHONEY to LAD, vein graft to the circumflex artery and vein graft to the right coronary artery, repeat cardiac catheterization was done in August 2016 showing patent MAHONEY to LAD, vein graft to the obtuse marginal branch with sluggish flow in the [place] circumflex artery, patent vein graft to the right coronary artery, the proximal [place] coronary arteries appear slightly worse with occlusion of the left main, the LAD and diagonal artery are getting collaterals from the right system. He has been asymptomatic. Continue to monitor. Mild bilateral carotid stenosis, ultrasound was done in March 2018. Continue to monitor History of esophageal spasm, EGD by Dr. Manzanares , reporting improvement. 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 Nettles, continue to monitor. 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 Nettles. Hypertension, controlled on current medication, continue to monitor Hyperlipidemia, continue to monitor lipids. Managed by Dr. Watts. Diabetes mellitus, managed and followed by primary care physician. History of atrial flutter status post ablation in 2005, currently in sinus rhythm. Continue to monitor Thank you for your consultation. Please call me if you have any questions. Bobby Crawford MD, FACP, FACC, FSCAI, FHRS, CCDS Interventional Cardiology Cardiac Electrophysiology Vascular Medicine and Endovascular Interventions Murphy CRAWFORD MD Jul 01, 2019 13:11
[2019-07-01 15:36] VITALS: BP 120/67
[2019-07-01] MEDS ORDERED: CATHETER FLUSH 10 ML SYR IV PRN (19:00)
[2019-07-01] MEDS: MONTELUKAST 10 MG (SINGULAIR) TAB PO SCH (20:19)
[2019-07-01] MEDS: CATHETER FLUSH 10 ML SYR IV SCH (20:21)
[2019-07-01] MEDS: OLANZapine 5 MG ODT (ZyPREXA ZYDIS) PO SCH (20:29)
[2019-07-02] MEDS: inSUlin ASPART (NovoLOG) 1 UNIT/0.01 ML (CHARGE PER UNIT) SC SCH ×4 (05:27→20:37)
[2019-07-02 05:44] VITALS: BP 131/67
[2019-07-02] MEDS: CATHETER FLUSH 10 ML SYR IV SCH ×3 (06:29→20:39)
[2019-07-02] MEDS: LACTOBACILLUS Acidoph/Bulgar 1 GM (LACTINEX) PACKET PO SCH ×4 (06:29→20:36)
[2019-07-02] MEDS: RT-ALBUTEROL SULF 2.5 MG/3 ML PRE-MIX VIAL INH SCH (07:44)
[2019-07-02] MEDS: RT-ADVAIR HFA 115/21 MCG PER PUFF IH SCH ×2 (07:45→19:04)
[2019-07-02 08:33] VITALS: BP 124/65
[2019-07-02] MEDS: LORATADINE (CLARITIN) 10 MG TAB PO SCH (08:35)
[2019-07-02] MEDS: PANTOPRAZOLE 40 MG (PROTONIX) TAB PO SCH (08:35)
[2019-07-02] MEDS: SERTRALINE 100 MG (ZOLOFT) TAB PO SCH (08:35)
[2019-07-02] MEDS: SACUBITRIL/VALSARTAN 24/26 MG (ENTRESTO) TABLET PO SCH ×2 (08:35→20:36)
[2019-07-02] MEDS: CARVEDILOL 3.125 MG (COREG) TABLET PO SCH ×2 (08:35→20:36)
[2019-07-02] MEDS: SENNA W/DOCUSATE (SENOKOT S) TABLET PO SCH ×2 (08:36→19:19)
[2019-07-02] MEDS: FLUTICASONE NASAL SPRAY (FLONASE) 16 GM BTL NS SCH (08:38)
--- NOTE | 2019-07-02 13:15 | Cardiology Progress Note ---
Cardiology SOAP Progress Note Subjective: No cardiac symptoms. Objective: I&O/Vital Signs 07/02/19 07/02/19 07/02/19 07/02/19 05:44 07:45 08:33 09:34 Temp 36.3 Pulse 66 77 Resp 18 B/P (MAP) 131/67 124/65 Pulse Ox 97 97 O2 Delivery Room Air Room Air Room Air 07/02/19 00:00 Intake Total 960 ml Output Total 725 ml Balance 235 ml Weight (Pounds): 163 Weight (Ounces): 7.4 Weight (Calculated Kilograms): 74.598910 Constitutional: No appears stated age; AAO x 3; No apparent distress, No PERRL; well-developed, well-nourished; No other Respiratory: No accessory muscle use, No respiratory distress, No chest tender, No chest expansion is symmetric; chest is bilaterally symmetric; No lungs clear to percussion; lungs clear to auscultation; No crackles, No rhonchi, No rales, No stridor, No wheezing, No pleural rub, No other Cardiovascular: regular rate-rhythm; No irregularly irregular, No extra beats, No parasternal heave is noted, No JVD, No edema, No bradycardia, No tachycardia, No point of maximal impulse, No cardiac thrills are palpable; S1 and S2; No gallop/S3, No gallop/S4, No diastolic murmur, No systolic murmur, No friction rub, No click, No other Gastrointestional: No tender; soft, round; No distended, No pulsatile mass, No organomegaly, No guarding, No rebound, No tenderness, No hernia, No mass; audible bowel sounds; No abnormal bowel sounds, No abdominal bruits, No spleenomegaly, No other Extremities: normal range of motion, non-tender, normal inspection; No pedal edema, No calf tenderness, No normal capillary refill, No pelvis stable, No calf tenderness, No inflammation, No pedal edema, No slow capillary refill, No swelling, No other, No abrasion, No clubbing, No cyanosis, No ecchymosis, No laceration; no lower extremity edema bilateral; No significant edema, No tenderness, No wound Neurologic/Psychiatric: no motor/sensory deficits, alert, normal mood/affect, oriented x 3 Skin: warm/dry Results/Procedures: Labs Laboratory Tests 07/01/19 15:34: Glucometer 190H 07/01/19 20:16: Glucometer 180H 07/02/19 05:26: Glucometer 162H 07/02/19 11:23: Glucometer 206H A/P: Assessment/Dx: Hip fracture Coronary artery disease Carotid stenosis ALL Ischemic cardiomyopathy Plan: Left femur fracture, post surgical repair done on June 19, 2019. Undergoing rehabilitation. Continue to monitor Anemia, mild thrombocytopenia, save blood transfusion, managed by Dr. Perez Status post respiratory failure, better, responded to diuretics.significantly improved. Congestive heart failure, acute on chronic left ventricular systolic dysfunction, secondary to chemotherapy and coronary artery disease, ischemic and nonischemic cardiomyopathy, echocardiogram showed ejection fraction 25-30 percent, continue on Coreg and Entresto. Monitor tolerance and response closely. significantly improved. History of orthostatic dizziness and hypotension, near-syncope, no current syncopal episodes or dizziness reported. Coronary artery disease status post CABG x3 in 2004, cardiac catheterization in April 2014 which showed patent bypass grafts with small vessel disease distally mainly in the LAD system that was receiving retrograde collateral, treated conservatively. Cardiac catheterization was done on November 07, 2014 showing [place] vessel disease, patent MAHONEY to LAD, vein graft to the circumflex artery and vein graft to the right coronary artery, repeat cardiac catheterization was done in August 2016 showing patent MAHONEY to LAD, vein graft to the obtuse marginal branch with sluggish flow in the [place] circumflex artery, patent vein graft to the right coronary artery, the proximal [place] coronary arteries appear slightly worse with occlusion of the left main, the LAD and diagonal artery are getting collaterals from the right system. He has been asymptomatic. Continue to monitor. Mild bilateral carotid stenosis, ultrasound was done in March 2018. Continue to monitor History of esophageal spasm, EGD by Dr. Manzanares , reporting improvement. 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 Nettles, continue to monitor. 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 Nettles. Hypertension, controlled on current medication, continue to monitor Hyperlipidemia, continue to monitor lipids. Managed by Dr. Watts. Diabetes mellitus, managed and followed by primary care physician. History of atrial flutter status post ablation in 2005, currently in sinus rhythm. Continue to monitor Thank you for your consultation. Please call me if you have any questions. Bobby Crawford MD, FACP, FACC, FSCAI, FHRS, CCDS Interventional Cardiology Cardiac Electrophysiology Vascular Medicine and Endovascular Interventions Murphy CRAWFORD MD Jul 02, 2019 13:15
--- NOTE | 2019-07-02 13:57 | PM&R Progress Note ---
Subjective HPI/CC On Admission Date Seen by Provider: Jul 02, 2019 Time Seen by Provider: 13:00 CC: Debility following left hip fracture HPI: This is a 78yoWM clinic pt of [facility] with sever comorbidities who had an uncomplicated left hip fracture repair by Dr. Richards on Wednesday after sustaining a fall at his daughters office after missing a step on the stairs an subsequently was repaired but had some flash pulmonary edema requiring transfer to the ICU and lactic acid elevation with acute sinusitis requiring Zosyn antibiotics empirically along with IV Lasix with close monitoring and severe delirium requiring a live sitter since he was such a fall risk and received two units of blood with good improvement in Hgb of 7.5 and decreased platelet counts so Dr. Alvarado, Dr Nettles, Dr. Foreman and Dr. Richards agreed with plan to transfer to ICU and he was improving significantly so and delirium was improved to the point to where he was able to DC to inpatient rehab and continue his intensive therapies which may require 15/7 intensity because of the delirium but will try our best to initiate. Weight bearing is tolerated per Dr. Richards and we will monitor bowel function, and bladder function and monitor labs in the meantime. 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 Subjective/Events-last exam Pt doing well and sugars are improved Decreased Levemir from 20 units to 10 starting 2 nights ago to assure he does not have lows anymore No bed alarm was set off the last several nights Did not sleep well last night again BP 140/67, does get orthostatic at times Weakness is improved Confusion is clearing Conferred with RN Reviewed therapy notes Check meds and labs Nebulizer treatments will be DC Pain is controlled Delirium much improved Review of Systems General: Fatigue Musculoskeletal: leg pain Objective Exam Vital Signs Vital Signs Date Time Temp Pulse Resp B/P (MAP) Pulse Ox O2 Delivery O2 Flow Rate FiO2 07/02/19 15:55 36.4 76 16 146/70 97 Room Air Capillary Refill : General Appearance: No Apparent Distress, WD/WN, Chronically ill HEENT: PERRL/EOMI, Normal ENT Inspection, Pharynx Normal, Moist Mucous Membranes Neck: Full Range of Motion, Normal Inspection, Non Tender, Supple Respiratory: Chest Non Tender, Lungs Clear, Normal Breath Sounds, No Accessory Muscle Use, No Respiratory Distress Cardiovascular: Regular Rate, Rhythm, No Edema, No Gallop, No JVD, No Murmur Gastrointestinal: Normal Bowel Sounds, No Organomegaly, No Pulsatile Mass, Non Tender, Soft Back: Normal Inspection, No CVA Tenderness, No Vertebral Tenderness Extremity: Normal Capillary Refill, Normal Inspection, Normal Range of Motion (except left leg), Non Tender, No Calf Tenderness, No Pedal Edema Neurologic/Psychiatric: Alert, Oriented x3, No Motor/Sensory Deficits, Normal Mood/Affect, draw hand II-XII Norm as Tested, Disoriented Skin: Normal Color, Warm/Dry Lymphatic: No Adenopathy Results/Procedures Lab Patient resulted labs reviewed. FIM Transfers Therapy Code Descriptions/Definitions Functional [place] Measure: 0=Not Assessed/NA 4=Minimal Assistance 1=Total Assistance 5=Supervision or Setup 2=Maximal Assistance 6=Modified [place] 3=Moderate Assistance 7=Complete [place] Therapy Quality Codes: 6 Independent with activity with or without an assistive device 5 Patient requires set up or clean up by helper. Patient completes activity by themselves 4 Supervision or touching assist (CGA). [place] provide cues , steadying assist 3 The helper provides less than half the effort to complete the activity 2 The helper provides more than half the effort to complete the activity 1 Dependent. The helper does all the effort to complete an activity 7 Patient refused to complete or attempt activity 9 The patient did not perform the activity before the current illness or injury 88 Not attempted due to Medical conditions or safety concerns Transfers (B, C, W/C) (FIM): 6 Scootin Rollin Roll Left to Right (QC): 4 Supine to/from Sit: 5 Sit to/from Stand: 5 Sit to Lying (QC): 3 Sit to Stand (QC): 5 Chair/Fej-qx-Orpko Xfer(QC): 4 Bed to/from Chair: 5 Car Transfer (QC): 3 Gait Training Does the Patient Walk?: Yes Gait (FIM): 5 Distance (FIM): 3=150 ft Distance: 200' x2 Walk 10 feet (QC): 5 Walk 50 ft with 2 Turns(QC): 5 Walk 150 ft (QC): 5 Walking 10ft/uneven surface-QC: 4 Gait Level of Assist: 5 Gait Persons Needed: 1 Gait Assistive Device: FWW Wheelchair Training Does the Pt Use a Wheelchair?: No Stair Training Stairs (FIM): 1 #of Steps: 1 1 Step (curb) (QC): 3 4 Steps (QC): 88 12 Steps (QC): 88 Level of Assist: 3 Mental Status/Objective Comprehension: 6 Expression: 6 Social Interaction: 7 Problem Solvin Memory: 4 ADL-Treatment Feedin Eating (QC): 6 Groomin Oral Hygiene (QC): 6 Bathin Shower/Bathe Self (QC): 4 Upper Extremity Dressin Upper Body Dressing (QC): 5 Lower Extremity Dressin Lower Body Dressing (QC): 4 On/Off Footwear (QC): 5 Toiletin Toileting Hygiene (QC): 4 Toilet/Commode Transfer: 5 Toilet Transfer (QC): 4 Shower: 5 Assessment/Plan Assessment and Plan Assess & Plan/Chief Complaint Assessment: Left femur fracture s/p fall after missed 1 step on stairs s/p repair POD # 13 Acute and severe delirium with severe insomnia x 5 days now resolved with Zyprexa at night will decrease from 5mg at night to 2.5mg to wean off Sepsis due to URI and acute sinusitis and bronchitis placed on Zosyn and changed to PO abx Flash pulmonary edema s/p Lasix CHF EF 30% decreased from 50% on ECHO will need Life vest for 90 days then possible defib s/p post op anemia s/p 2 units of blood in ICU improved hgb 11 today COPD on Singulair and Claritin and ICS prn restarted on home meds and Nebs 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 diff history h/o ARF while at [facility] for ALL induction PUD Remission for acute lymphocytic leukemia for [address] Perez Ischemic cardiomyopathy with improvement in ejection fraction from 30 percent to 55 percent due to Entresto management but now decreased since acute illness so needs life vest then defib Plan: IRF DVT PPx per Dr Nettles if needed with Lovenox Monitor for ACS and CHF Appreciate Dr Foreman and Dr Richards and Dr Alvarado and Dr Nettles Change to PO abx soon Staple removal next Wednesday Minimize bed alarm interruptions Change Nebs to Albuterol only and prn today Much improved status, home this week (1) Fracture of femur, intertrochanteric, left, closed Status: Acute Qualifiers: Encounter type: subsequent encounter (2) Non-ST elevation myocardial infarction (NSTEMI) Status: Acute (3) CAD (coronary artery disease) Status: Chronic Qualifiers: Coronary Disease-Associated Artery/Lesion type: [place] artery [place] vs. transplanted heart: [place] heart Associated angina: without angina Qualified Codes: I25.10 - Atherosclerotic heart disease of [place] coronary artery without angina pectoris (4) ALL (acute lymphocytic leukemia) Status: Chronic (5) Neuropathy Status: Chronic (6) Renal insufficiency Status: Chronic (7) Hypertension Status: Chronic Qualifiers: Hypertension type: essential hypertension Qualified Codes: I10 - Essential (primary) hypertension (8) Sciatic neuropathy Status: Chronic (9) Ischemic cardiomyopathy Status: Chronic (10) Postoperative pain Status: Acute (11) Postoperative anemia Status: Acute (12) History of Clostridium difficile infection Status: Chronic (13) COPD (chronic obstructive pulmonary disease) Status: Chronic Qualifiers: COPD type: unspecified COPD Qualified Codes: J44.9 - Chronic obstructive pulmonary disease, unspecified (14) Acute delirium Status: Acute (15) Sepsis Status: Resolved Resolution Date/Time: 06/24/19 @ 07:04 (16) Orthostasis Status: Chronic (17) Flash pulmonary edema Status: Resolved Resolution Date/Time: 06/24/19 @ 07:04 (18) Troponin level elevated Status: Resolved Resolution Date/Time: 06/24/19 @ 07:04 (19) COPD with acute exacerbation Status: Resolved Resolution Date/Time: 06/24/19 @ 07:04 (20) Elevated brain natriuretic peptide (BNP) level Status: Resolved Resolution Date/Time: 06/24/19 @ 07:04 (21) Transfusion of blood during current hospitalization Status: Resolved Resolution Date/Time: 06/24/19 @ 07:04 (22) Elevated lactic acid level Status: Resolved Resolution Date/Time: 06/24/19 @ 07:04 (23) Fever Status: Resolved Resolution Date/Time: 10/18/18 @ 12:40 (24) Shortness of breath Status: Resolved Resolution Date/Time: 10/18/18 @ 12:40 (25) Cough Status: Acute (26) Pneumonia Status: Acute (27) Non-ST elevation myocardial infarction (NSTEMI) Status: Acute (28) Dehydration, moderate Status: Resolved Resolution Date/Time: 10/18/18 @ 12:41 (29) Severe anemia Status: Acute ADALBERTO ARENAS DO Jul 02, 2019 13:57
[2019-07-02 15:55] VITALS: BP 146/70
[2019-07-02] MEDS ORDERED: RT-ALBUTEROL SULF 2.5 MG/3 ML PRE-MIX VIAL INH PRN (18:15)
[2019-07-02] MEDS: MELATONIN 3 MG TABLET PO PRN (20:36)
[2019-07-02] MEDS: MONTELUKAST 10 MG (SINGULAIR) TAB PO SCH (20:36)
[2019-07-02] MEDS: OLANZapine 5 MG ODT (ZyPREXA ZYDIS) PO SCH (20:38)
[2019-07-03] MEDS: inSUlin ASPART (NovoLOG) 1 UNIT/0.01 ML (CHARGE PER UNIT) SC SCH ×4 (05:44→20:41)
[2019-07-03 05:47] VITALS: BP 134/71
[2019-07-03] MEDS: LACTOBACILLUS Acidoph/Bulgar 1 GM (LACTINEX) PACKET PO SCH ×4 (05:50→20:26)
[2019-07-03 06:00] LABS: BASOPHILS % (AUTO) 0 % (0-10); EOSINOPHILS # (AUTO) 0.2 10^3/uL (0.0-0.3); EOSINOPHILS % (AUTO) 4 % (0-10); HEMATOCRIT 31 % (40-54); HEMOGLOBIN 10.2 G/DL (13.3-17.7); LYMPHOCYTES # (AUTO) 1.6 X 10^3 (1.0-4.0); LYMPHOCYTES % (AUTO) 25 % (12-44); MEAN CORPUSCULAR HGB CONC 33 G/DL (32-36); MEAN CORPUSCULAR VOLUME 94 FL (80-99); MEAN PLATELET VOLUME 8.4 FL (7.4-10.4); MONOCYTES # (AUTO) 0.8 X 10^3 (0.0-1.0); MONOCYTES % (AUTO) 12 % (0-12); NEUTROPHILS # (AUTO) 3.7 X 10^3 (1.8-7.8); NEUTROPHILS % (AUTO) 59 % (42-75); PLATELET COUNT 295 10^3/uL (130-400); RED CELL DISTRIBUTION WIDTH 14.3 % (10.0-14.5); WHITE BLOOD COUNT 6.3 10^3/uL (4.3-11.0)
[2019-07-03 06:02] LABS: MEAN CORPUSCULAR HEMOGLOBIN 31 PG (25-34)
[2019-07-03] MEDS: CATHETER FLUSH 10 ML SYR IV SCH ×3 (06:07→20:44)
[2019-07-03 06:24] LABS: ALANINE AMINOTRANSFERASE 18 U/L (0-55); ALBUMIN 3.7 GM/DL (3.2-4.5); ALKALINE PHOSPHATASE 93 U/L (40-136); BILIRUBIN,TOTAL 0.9 MG/DL (0.1-1.0); BUN/CREATININE RATIO 18; CALCIUM 9.5 MG/DL (8.5-10.1); CARBON DIOXIDE 23 MMOL/L (21-32); CHLORIDE 105 MMOL/L (98-107); CREATININE SERUM 1.06 MG/DL (0.60-1.30); GFR ESTIMATED > 60; GLUCOSE 155 MG/DL (70-105); POTASSIUM 4.2 MMOL/L (3.6-5.0); SODIUM 140 MMOL/L (135-145); TOTAL PROTEIN 6.8 GM/DL (6.4-8.2)
[2019-07-03] MEDS: RT-ADVAIR HFA 115/21 MCG PER PUFF IH SCH ×2 (07:54→19:01)
--- NOTE | 2019-07-03 08:22 | PM&R Progress Note ---
Subjective HPI/CC On Admission Date Seen by Provider: Jul 03, 2019 Time Seen by Provider: 08:30 CC: Debility following left hip fracture HPI: This is a 78yoWM clinic pt of [facility] with sever comorbidities who had an uncomplicated left hip fracture repair by Dr. Richards on Wednesday after sustaining a fall at his daughters office after missing a step on the stairs an subsequently was repaired but had some flash pulmonary edema requiring transfer to the ICU and lactic acid elevation with acute sinusitis requiring Zosyn antibiotics empirically along with IV Lasix with close monitoring and severe delirium requiring a live sitter since he was such a fall risk and received two units of blood with good improvement in Hgb of 7.5 and decreased platelet counts so Dr. Alvarado, Dr Nettles, Dr. Foreman and Dr. Richards agreed with plan to transfer to ICU and he was improving significantly so and delirium was improved to the point to where he was able to DC to inpatient rehab and continue his intensive therapies which may require 15/7 intensity because of the delirium but will try our best to initiate. Weight bearing is tolerated per Dr. Richards and we will monitor bowel function, and bladder function and monitor labs in the meantime. 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 Subjective/Events-last exam Hgb 10.2 Rest of lab are normal Will DC fredi today Colace requested today for stool softening Denies any significant issues over night DIdn't sleep very well but overall he's doing okay Conferred with RN Reviewed therapy notes Check meds and labs Nebulizer treatments will be DC Pain is controlled Delirium much improved Review of Systems General: Fatigue Musculoskeletal: leg pain Objective Exam Vital Signs Vital Signs Date Time Temp Pulse Resp B/P (MAP) Pulse Ox O2 Delivery O2 Flow Rate FiO2 07/03/19 20:25 88 129/74 07/03/19 19:01 95 Room Air 07/03/19 15:45 36.2 16 Capillary Refill : General Appearance: No Apparent Distress, WD/WN, Chronically ill HEENT: PERRL/EOMI, Normal ENT Inspection, Pharynx Normal, Moist Mucous Membranes Neck: Full Range of Motion, Normal Inspection, Non Tender, Supple Respiratory: Chest Non Tender, Lungs Clear, Normal Breath Sounds, No Accessory Muscle Use, No Respiratory Distress Cardiovascular: Regular Rate, Rhythm, No Edema, No Gallop, No JVD, No Murmur Gastrointestinal: Normal Bowel Sounds, No Organomegaly, No Pulsatile Mass, Non Tender, Soft Back: Normal Inspection, No CVA Tenderness, No Vertebral Tenderness Extremity: Normal Capillary Refill, Normal Inspection, Normal Range of Motion (except left leg), Non Tender, No Calf Tenderness, No Pedal Edema Neurologic/Psychiatric: Alert, Oriented x3, No Motor/Sensory Deficits, Normal 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 FIM Transfers Therapy Code Descriptions/Definitions Functional [place] Measure: 0=Not Assessed/NA 4=Minimal Assistance 1=Total Assistance 5=Supervision or Setup 2=Maximal Assistance 6=Modified [place] 3=Moderate Assistance 7=Complete [place] Therapy Quality Codes: 6 Independent with activity with or without an assistive device 5 Patient requires set up or clean up by helper. Patient completes activity by themselves 4 Supervision or touching assist (CGA). [place] provide cues , steadying assist 3 The helper provides less than half the effort to complete the activity 2 The helper provides more than half the effort to complete the activity 1 Dependent. The helper does all the effort to complete an activity 7 Patient refused to complete or attempt activity 9 The patient did not perform the activity before the current illness or injury 88 Not attempted due to Medical conditions or safety concerns Transfers (B, C, W/C) (FIM): 6 Scootin Rollin Roll Left to Right (QC): 4 Supine to/from Sit: 5 Sit to/from Stand: 5 Sit to Lying (QC): 3 Sit to Stand (QC): 5 Chair/Dzf-an-Oteoo Xfer(QC): 4 Bed to/from Chair: 5 Car Transfer (QC): 3 Gait Training Does the Patient Walk?: Yes Gait (FIM): 5 Distance (FIM): 3=150 ft Distance: 200' x2 Walk 10 feet (QC): 5 Walk 50 ft with 2 Turns(QC): 5 Walk 150 ft (QC): 5 Walking 10ft/uneven surface-QC: 4 Gait Level of Assist: 5 Gait Persons Needed: 1 Gait Assistive Device: FWW Wheelchair Training Does the Pt Use a Wheelchair?: No Stair Training Stairs (FIM): 1 #of Steps: 1 1 Step (curb) (QC): 3 4 Steps (QC): 88 12 Steps (QC): 88 Level of Assist: 3 Mental Status/Objective Comprehension: 6 Expression: 6 Social Interaction: 7 Problem Solvin Memory: 4 ADL-Treatment Feedin Eating (QC): 6 Groomin Oral Hygiene (QC): 6 Bathin Shower/Bathe Self (QC): 4 Upper Extremity Dressin Upper Body Dressing (QC): 5 Lower Extremity Dressin Lower Body Dressing (QC): 4 On/Off Footwear (QC): 5 Toiletin Toileting Hygiene (QC): 4 Toilet/Commode Transfer: 5 Toilet Transfer (QC): 4 Shower: 5 Assessment/Plan Assessment and Plan Assess & Plan/Chief Complaint Assessment: Left femur fracture s/p fall after missed 1 step on stairs s/p repair POD # 14 Acute and severe delirium with severe insomnia x 5 days now resolved with Zyprexa at night will decrease from 5mg at night to 2.5mg to wean off Sepsis due to URI and acute sinusitis and bronchitis placed on Zosyn and changed to PO abx Flash pulmonary edema s/p Lasix CHF EF 30% decreased from 50% on ECHO will need Life vest for 90 days then possible defib s/p post op anemia s/p 2 units of blood in ICU improved hgb 11 today COPD on Singulair and Claritin and ICS prn restarted on home meds and Nebs 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 diff history h/o ARF while at [facility] for ALL induction PUD Remission for acute lymphocytic leukemia for [address] Perez Ischemic cardiomyopathy with improvement in ejection fraction from 30 percent to 55 percent due to Entresto management but now decreased since acute illness so needs life vest then defib Plan: IRF DVT PPx per Dr Nettles if needed with Lovenox Monitor for ACS and CHF Appreciate Dr Foreman and Dr Richards and Dr Alvarado and Dr Nettles Change to PO abx soon Staple removal next Wednesday Minimize bed alarm interruptions Change Nebs to Albuterol only and prn today Much improved status, home this week (1) Fracture of femur, intertrochanteric, left, closed Status: Acute Qualifiers: Encounter type: subsequent encounter (2) Non-ST elevation myocardial infarction (NSTEMI) Status: Acute (3) CAD (coronary artery disease) Status: Chronic Qualifiers: Coronary Disease-Associated Artery/Lesion type: [place] artery [place] vs. transplanted heart: [place] heart Associated angina: without angina Qualified Codes: I25.10 - Atherosclerotic heart disease of [place] coronary artery without angina pectoris (4) ALL (acute lymphocytic leukemia) Status: Chronic (5) Neuropathy Status: Chronic (6) Renal insufficiency Status: Chronic (7) Hypertension Status: Chronic Qualifiers: Hypertension type: essential hypertension Qualified Codes: I10 - Essential (primary) hypertension (8) Sciatic neuropathy Status: Chronic (9) Ischemic cardiomyopathy Status: Chronic (10) Postoperative pain Status: Acute (11) Postoperative anemia Status: Acute (12) History of Clostridium difficile infection Status: Chronic (13) COPD (chronic obstructive pulmonary disease) Status: Chronic Qualifiers: COPD type: unspecified COPD Qualified Codes: J44.9 - Chronic obstructive pulmonary disease, unspecified (14) Acute delirium Status: Acute (15) Sepsis Status: Resolved Resolution Date/Time: 06/24/19 @ 07:04 (16) Orthostasis Status: Chronic (17) Flash pulmonary edema Status: Resolved Resolution Date/Time: 06/24/19 @ 07:04 (18) Troponin level elevated Status: Resolved Resolution Date/Time: 06/24/19 @ 07:04 (19) COPD with acute exacerbation Status: Resolved Resolution Date/Time: 06/24/19 @ 07:04 (20) Elevated brain natriuretic peptide (BNP) level Status: Resolved Resolution Date/Time: 06/24/19 @ 07:04 (21) Transfusion of blood during current hospitalization Status: Resolved Resolution Date/Time: 06/24/19 @ 07:04 (22) Elevated lactic acid level Status: Resolved Resolution Date/Time: 06/24/19 @ 07:04 (23) Fever Status: Resolved Resolution Date/Time: 10/18/18 @ 12:40 (24) Shortness of breath Status: Resolved Resolution Date/Time: 10/18/18 @ 12:40 (25) Cough Status: Acute (26) Pneumonia Status: Acute (27) Non-ST elevation myocardial infarction (NSTEMI) Status: Acute (28) Dehydration, moderate Status: Resolved Resolution Date/Time: 10/18/18 @ 12:41 (29) Severe anemia Status: Acute ADALBERTO ARENAS DO Jul 03, 2019 08:21
--- NOTE | 2019-07-03 08:24 | Cardiology Progress Note ---
Subjective Date Seen by Provider: Jul 03, 2019 Time Seen by Provider: 08:23 Subjective/Events-last exam Patient is sitting up in bed, eating breakfast. No new complaints. Denies any chest pain or dyspnea. Objective-Cardiology Exam Last Set of Vital Signs Vital Signs 07/03/19 07/03/19 05:47 07:54 Temp 36.1 Pulse 65 Resp 20 B/P (MAP) 134/71 Pulse Ox 96 O2 Delivery Room Air Capillary Refill : I&O Intake and Output 07/03/19 00:00 Intake Total 1080 ml Output Total 200 ml Balance 880 ml Intake Oral 1080 ml Output Urine Total 200 ml # Voids 6 # Bowel Movements 1 General: Alert, Oriented X3, Cooperative, No Acute Distress HEENT: Atraumatic Neck: Supple Lungs: Clear to Auscultation, Normal Air Movement Heart: Regular Rate, Normal S1, Normal S2, No Murmurs Extremities: No Clubbing, No Cyanosis, No Edema, Normal Pulses Skin: No Rashes Neuro: Normal Speech Results Lab Laboratory Tests 07/03/19 05:50 A/P-Cardiology Admission Diagnosis Left femur fx Anemia CAD CHF Assessment/Plan Left femur fracture, post surgical repair done on June 19, 2019. Undergoing rehabilitation. Continue to monitor Anemia, mild thrombocytopenia, managed by Dr. Perez Status post respiratory failure, better, responded to diuretics. Congestive heart failure, acute on chronic left ventricular systolic dysfunction, secondary to chemotherapy and coronary artery disease, ischemic and nonischemic cardiomyopathy, echocardiogram showed ejection fraction 25-30 percent, continue on Coreg and Entresto. Monitor tolerance and response closely. Life vest ordered. Transient hypotension, history of hypertension, improved. Continue on Coreg and Entresto and monitor blood pressure. Blood pressure better today, continue to monitor. History of orthostatic dizziness and hypotension, near-syncope, no current syncopal episodes or dizziness reported. Coronary artery disease status post CABG x3 in 2004, cardiac catheterization in April 2014 which showed patent bypass grafts with small vessel disease distally mainly in the LAD system that was receiving retrograde collateral, treated conservatively. Cardiac catheterization was done on November 07, 2014 showing small vessel disease, patent [place]Y to LAD, vein graft to the circumflex artery and vein graft to the right coronary artery, repeat cardiac catheterization was done in August 2016 showing patent [place] to LAD, vein graft to the obtuse marginal branch with sluggish flow in the [place] circumflex artery, patent vein graft to the right coronary artery, the proximal [place] coronary arteries appear slightly worse with occlusion of the left main, the LAD and diagonal artery are getting collaterals from the right system. He has been asymptomatic. Continue to monitor. Mild bilateral carotid stenosis, ultrasound was done in March 2018. Continue to monitor History of esophageal spasm, EGD by Dr. Manzanares , reporting improvement. 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 Nettles, continue to monitor. 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 Nettles. Hyperlipidemia, continue to monitor lipids. Managed by Dr. Watts. Diabetes mellitus, managed and followed by primary care physician. History of atrial flutter status post ablation in 2004, currently in sinus rhythm. Continue to monitor Clinical Quality Measures DVT/VTE Risk/Contraindication: Risk Factor Score Per Nursin RFS Level Per Nursing on Admit: 4+=Very High Supervisory-Addendum Brief Supervisory Addendum Participated in pt care: history, MDM, physical Personally performed: exam, history, MDM Care discussed with: OLEG Notes: patient was seen and evaluated, sitting in a chair, feeling good today. On examination lungs are clear to auscultation, heart is regular, no edema. I will continue on current medication, continue to hold Lasix, monitor in and out, monitor blood pressure. BASSAM GRECO Jul 03, 2019 08:24 CHRISTOPHER TANG MD Jul 03, 2019 10:16
[2019-07-03 08:53] VITALS: BP 121/70
[2019-07-03] MEDS: FLUTICASONE NASAL SPRAY (FLONASE) 16 GM BTL NS SCH (09:00)
[2019-07-03] MEDS: CARVEDILOL 3.125 MG (COREG) TABLET PO SCH ×2 (09:08→20:26)
[2019-07-03] MEDS: SACUBITRIL/VALSARTAN 24/26 MG (ENTRESTO) TABLET PO SCH ×2 (09:08→20:26)
[2019-07-03] MEDS: LORATADINE (CLARITIN) 10 MG TAB PO SCH (09:09)
[2019-07-03] MEDS: SERTRALINE 100 MG (ZOLOFT) TAB PO SCH (09:09)
[2019-07-03] MEDS: PANTOPRAZOLE 40 MG (PROTONIX) TAB PO SCH (09:09)
[2019-07-03] MEDS: SENNA W/DOCUSATE (SENOKOT S) TABLET PO SCH ×2 (09:09→20:27)
--- NOTE | 2019-07-03 10:03 | Physical Therapy Daily Note ---
PT Daily Note-Current Subjective Pt. states he hopes he is close to going home. States he has no pain at all. Pain Numeric Pain Scale: 0-No Pain Location: No Pain Reported Mental Status Patient Orientation: Normal For Age Transfers Therapy Code Descriptions/Definitions Functional [place] Measure: 0=Not Assessed/NA 4=Minimal Assistance 1=Total Assistance 5=Supervision or Setup 2=Maximal Assistance 6=Modified [place] 3=Moderate Assistance 7=Complete [place] Therapy Quality Codes: 6 Independent with activity with or without an assistive device 5 Patient requires set up or clean up by helper. Patient completes activity by themselves 4 Supervision or touching assist (CGA). [place] provide cues , steadying assist 3 The helper provides less than half the effort to complete the activity 2 The helper provides more than half the effort to complete the activity 1 Dependent. The helper does all the effort to complete an activity 7 Patient refused to complete or attempt activity 9 The patient did not perform the activity before the current illness or injury 88 Not attempted due to Medical conditions or safety concerns Transfers (B, C, W/C) (FIM): 6 Scootin Rollin Supine to/from Sit: 6 Sit to/from Stand: 6 Bed to/from Chair: 6 Weight Bearing Right Lower Extremity: Right Weight Bearing/Tolerated Left Lower Extremity: Left Weight Bearing/Tolerated Gait Training Does the Patient Walk?: Yes Gait (FIM): 5 Distance (FIM): 3=150 ft (175x2) Gait Level of Assist: 5 Gait Persons Needed: 1 Gait Assistive Device: FWW escort only, near up ad ceiclia Stair Training Stair Training: Handrails/: 2 handrails Stairs (FIM): 2 #of Steps: 4 Stairs: Pattern: Step to Level of Assist: 4 needs instruction in sequence 50% of time Exercises Supine Ex: Ankle pumps, Quad Set, Rolling, Glut sets, Heel Slides, Short Arc Quads, Scooting, Straight leg raise (x 5 only), Hip abd/add Supine Reps: 20 Seated Therapy Exercises: Ankle pumps, Sit to stand, Long arc quads, Hip abd/a dd Seated Reps: 20 Treatments reciprocal U&L extremity seated exercises x 12m Assessment Current Status: Good Progress PT Short Term Goals Short Term Goals Time Frame: Jul 07, 2019 Gait (FIM): 4 Distance (FIM): 3=150 ft Gait Distance Comment: 150' Gait Level of Assist: 4 Gait Assistive Device: FWW Stairs (FIM): 2 # of Steps: 4 Stairs Level of Assist: 4 PT Detention Goals Detention Goals PT Gas Maker Helper Goals Time Frame: Jul 21, 2019 Transfers (B,C,W/C) (FIM): 6 Sit to Lying (QC): 6 Lying-Sitting on Side/Bed(QC): 6 Sit to Stand (QC): 6 Rollin Roll Left to Right (QC): 6 Chair/Yag-pd-Evgro Xfer(QC): 6 Car Transfer (QC): 6 Does the Patient Walk: Yes Gait (FIM): 6 Gait distance (FIM): 3=150 ft Distance: 250' Walk 10 feet (QC): 6 Walk 10ft-Uneven Surface(QC): 6 Walk 50ft with 2 Turns (QC): 6 Walk 150 ft (QC): 6 Gait Level of Assist: 6 Gait Assistive Device: FWW Stairs (FIM): 6 # of Steps: 12 1 Step (curb) (QC): 6 4 Steps (QC): 6 12 Steps (QC): 6 Stairs Level Of Assist: 6 Picking up an Object (QC): 6 PT Plan Treatment/Plan Treatment Plan: Continue Plan of Care Treatment Plan: Bed Mobility, Education, Functional Activity Tessie, Functional Strength, Group Therapy, Gait, Safety, Therapeutic Exercise, Transfers Treatment Duration: Jul 21, 2019 Frequency: At least 5 of 7 days/Wk (IRF) Estimated Hrs Per Day: 1.5 hours per day Patient and/or Family Agrees t: Yes Safety Risks/Education Patient Education: Gait Training, Transfer Techniques, Steps, Correct Positioning, Disease Process, Safety Issues Teaching Recipient: Patient Teaching Methods: Demonstration, Discussion Response to Teaching: Verbalize Understanding, Return Demonstration, Reinforcement Needed Time/GCodes Time In: 9000 Time Out: 1000 Total Billed Treatment Time: 60 Total Billed Treatment 1,GT20m,EX15m,FA25m NICK JOHANSEN AGRICULTURAL EXTENSION EDUCATOR Jul 03, 2019 10:03
--- NOTE | 2019-07-03 12:06 | Occupational Ther Daily Note ---
OT Current Status-Daily Note Subjective No pain reported. Appearance Pt. up in chair. Agrees to work with OT. Mental Status/Objective Patient Orientation: Person, Place, Time, Situation Therapy Code Descriptions/Definitions Functional [place] Measure: 0=Not Assessed/NA 4=Minimal Assistance 1=Total Assistance 5=Supervision or Setup 2=Maximal Assistance 6=Modified [place] 3=Moderate Assistance 7=Complete [place] ADL-Treatment Therapy Code Descriptions/Definitions Functional [place] Measure: 0=Not Assessed/NA 4=Minimal Assistance 1=Total Assistance 5=Supervision or Setup 2=Maximal Assistance 6=Modified [place] 3=Moderate Assistance 7=Complete [place] Therapy Quality Codes: 6 Independent with activity with or without an assistive device 5 Patient requires set up or clean up by helper. Patient completes activity by themselves 4 Supervision or touching assist (CGA). [place] provide cues , steadying assist 3 The helper provides less than half the effort to complete the activity 2 The helper provides more than half the effort to complete the activity 1 Dependent. The helper does all the effort to complete an activity 7 Patient refused to complete or attempt activity 9 The patient did not perform the activity before the current illness or injury 88 Not attempted due to Medical conditions or safety concerns Grooming (FIM): 5 (Set up at sink to brush teeth and hair, shave face.) Oral Hygiene (QC): 5 Bathing (FIM): 4 (CGA in stance.) Shower/Bathe Self (QC): 4 Upper Body (FIM): 5 Upper Body Dressing (QC): 4 Lower Body Dressing (FIM): 4 (With AE.) Lower Body Dressing (QC): 4 On/Off Footwear (QC): 4 Toileting (FIM): 5 Toileting Hygiene (QC): 4 Transfers (B, C, W/C) (FIM): 4 Toilet/Commode Transfer (FIM): 4 Toilet Transfer (QC): 4 Shower Transfer(FIM): 4 Other Treatment After ADLs, pt. ambulated with CGA to therapy gym. Tolerated 15 minutes on arm bike at mod resistance. Worked on increased overall endurance. No SOA noted. No dizziness reported. Ambulated back to room with CGA. Education OT Patient Education: Correct positioning, Exercise program, Modified ADL techniques, Progress toward Goal/Update tx plan, Purpose of tx/functional activities, Reviewed precautions, Rehab process, Transfer techniques, Use of adapted equipment Teaching Recipient: Patient Teaching Methods: Demonstration, Discussion Response to Teaching: Verbalize Understanding, Return Demonstration OT Short Term Goals Short Term Goals Time Frame: Jul 07, 2019 Bathing(FIM): 4 Upper Body Dressing(FIM): 5 Lower Body Dressing(FIM): 4 Toileting(FIM): 4 Toilet/Commode Transfer(FIM): 4 Additional Short Term Goals: 1-Demonstrate ADL Tasks, 2-Verbalize Understanding, 3-ImproveStrength/Tessie 1=Demonstrate adherence to instructed precautions during ADL tasks. 2=Patient will verbalize/demonstrate understanding of assistive devices/modifications for ADL. 3=Patient will improve strength/tolerance for activity to enable patient to perform ADL's. OT Assisted Goals Assisted Goals Time Frame: Jul 21, 2019 Eating (FIM): 6 Eating (QC): 6 Groomin Oral Hygiene (QC): 6 Bathing(FIM): 5 Shower/Bathe Self (QC): 5 Upper Body Dressing(FIM): 6 Upper Body Dressing (QC): 6 Lower Body Dressing(FIM): 6 Lower Body Dressing (QC): 6 On/Off Footwear (QC): 6 Toileting(FIM): 6 Toileting Hygiene (QC): 6 Toilet/Commode Transfer(FIM): 6 Toilet/Commode Transfer (QC): 6 Shower Transfer(FIM): 5 Additional Goals: 1-Demonstrate ADL Tasks, 2-Verbalize Understanding, 3-ImproveStrength/Tessie 1=Demonstrate adherence to instructed precautions during ADL tasks. 2=Patient will verbalize/demonstrate understanding of assistive devices/modifications for ADL. 3=Patient will improve strength/tolerance for activity to enable patient to perform ADL's. OT Education/Plan Problem List/Assessment Assessment: Decreased Activ Tolerance, Impaired I ADL's, Impaired Self-Care Skills Discharge Recommendations Plan/Recommendations: Continue POC Therapy Discharge Recommendati: Post Acute OT Equpiment Recommendations-D/C: Hip Kit Treatment Plan/Plan of Care Treatment,Training & Education: Yes Patient would benefit from OT for education, treatment and training to promote independence in ADL's, mobility, safety and/or upper extremity function for ADL's. Plan of Care: ADL Retraining, Functional Mobility, Group Exercise/Act as Ind, UE Funct Exercise/Act Treatment Duration: Jul 21, 2019 Frequency: At least 5 of 7 days/Wk (IRF) Estimated Hrs Per Day: 1.5 hours per day Agreement: Yes Rehab Potential: Good Time/GCodes Start Time: 10:30 Stop Time: 11:15 Total Time Billed (hr/min): 45 Billed Treatment Time 1, ADL x 30minutes, Ex x 15minutes SO MALONE OT Jul 03, 2019 12:05
[2019-07-03 15:45] VITALS: BP 114/52
--- NOTE | 2019-07-03 15:51 | Therapy Group Daily Note ---
Therapy Daily Group Note Patient Education Topic Energy Cons, Exercises, ADL Exercises LE Seated Exercise, ROM, Stretching, Gross Motor, Fine Motor, UE Exercise Session Ratio (pt:therapist): 3:1 Goal of Session: Education on ARU Expectations, Energy Conservation Tech., UE/ LE Strengthing, Safety with Transfers, Use of Adaptive Equipment Goal Met for this Session: Yes Pt Benefit of Group: Contributions to Others, F/U Use of Strategies @Home, Increased Functional Safety, Increased Functional Strength, Recognition of Peers, Socialization Other/Notes Pt ambulated using FWW and SBA to OT/PT group. Group consisted of introduction (name, place living, favorite school activity), socialization, ARU orientation, UE/LE seated exercises and transfer/bed mobility education. Pt introduced self appropriately and actively listened to peers. Pt contributed to conversations and initiated responses to educational topics. Pt demonstrated understanding of group educational topics with affirmative gestures and verbalizing understanding. Pt completed UE/LE seated exercises and tolerated well. Pt educated on bed mobility and safety during transfers. Pt taken back to room with FWW and SBA All needs met in room, call light in reach. Start Time: 13:00 Stop Time: 14:10 Total Billed Treatment Time: 70 Total Billed Treatment 1 GRP x5 (70) LYDIA AVITIA OTR Jul 03, 2019 15:51
--- NOTE | 2019-07-03 15:53 | Speech Therapy Daily Note ---
Speech Daily Progress Note Subjective Date Seen by Provider: Jul 03, 2019 Time Seen by Provider: 00:30 The patient was resting in his chair when I entered. He stated he had a pretty good weekend. Objective Patient completed questions that were safety awareness related with 95% given minimal verbal cues and/or repetitions. Assessment Assessment Current Status: Good Progress Treatment Plan Continue Plan of Care Communication Comprehension: 6 Expression: 6 Social Cognition Social Interaction: 7 Problem Solvin Memory: 4 Speech Short Term Goals Short Term Goals Short Term Goals 1) The patient will complete memory tasks with 90% or greater accuracy given minimal cues. 2) The patient will complete problem solving tasks with 90% or greater accuracy given minimal cues. 3) The patient will complete safety awareness tasks with 90% or greater accuracy given minimal cues. Speech Crusher Feeder Goals Long-Term Goals The patient will improve cognitive function in order to return to his prior living situation safely. Speech-Plan Patient/Family Goals Patient/Family Goals: The patient plans on returning home where he lives with his post rehab. Treatment Plan Speech Therapy Treatment Plan: Continue Plan of Care The patient is making good progress toward meeting ST goals. Treatment Duration: Jul 05, 2019 Frequency: 5 times per week Estimated Hrs Per Day: .5 hour per day Rehab Potential: Good Barriers to Learning: Patient had cognitive deficits, however these have mostly resolved. Pt/Family Agrees to Plan: Yes Safety Risks/Education Teaching Recipient: Patient Teaching Methods: Demonstration, Discussion Response to Teaching: Verbalize Understanding, Return Demonstration Education Topics Provided: Safety within his room Time Speech Therapy Time In: 11:30 Speech Therapy Time Out: 12:00 Total Billed Time: 30 Billed Treatment Time 1, CARMEN [place] Jul 03, 2019 15:53
--- NOTE | 2019-07-03 15:56 | Pulmonary Progress Note ---
Standard Progress Note Progress Notes Date Seen by Provider: Jul 03, 2019 Time Seen by Provider: 15:54 pt is sitting up in chair, denies pain, denies, cough, reports shortness of breath only when he is working out, does not wear or need oxygen day or night Assessment & Plan Lungs CTA COPD - stable -pt is not requiring oxygen -medications reviewed: on advair, singulair and claritin albuterol BID and prn -cxr reviewed from 06/23 showing chronic condition (Admission note, pulmonary notes, images, labs, were reviewed from recent hospital stay in order to provide continued care.) IVONNE GUZMAN APRN Jul 03, 2019 15:56
[2019-07-03 20:25] VITALS: BP 129/74
[2019-07-03] MEDS: MONTELUKAST 10 MG (SINGULAIR) TAB PO SCH (20:26)
[2019-07-03] MEDS: MELATONIN 3 MG TABLET PO PRN (20:26)
[2019-07-03] MEDS: OLANZapine 5 MG ODT (ZyPREXA ZYDIS) PO SCH (20:28)
[2019-07-04] MEDS: LACTOBACILLUS Acidoph/Bulgar 1 GM (LACTINEX) PACKET PO SCH ×4 (05:47→20:28)
[2019-07-04] MEDS: inSUlin ASPART (NovoLOG) 1 UNIT/0.01 ML (CHARGE PER UNIT) SC SCH ×4 (05:48→21:14)
[2019-07-04] MEDS: CATHETER FLUSH 10 ML SYR IV SCH (05:48)
[2019-07-04 06:25] VITALS: BP 99/56
[2019-07-04] MEDS: RT-ADVAIR HFA 115/21 MCG PER PUFF IH SCH ×2 (07:40→19:38)
[2019-07-04 08:00] VITALS: BP 110/61
--- NOTE | 2019-07-04 08:00 | NUR ---
DENIES PAIN. STATES "SLEPT GOOD FOR BEING IN A HOSPITAL".
--- NOTE | 2019-07-04 08:14 | Cardiology Progress Note ---
Subjective Date Seen by Provider: Jul 04, 2019 Time Seen by Provider: 08:13 Subjective/Events-last exam Patient is sitting up in chair, no new complaints. Denies any chest pain, d yspnea, dizziness or edema. Objective-Cardiology Exam Last Set of Vital Signs Vital Signs 07/04/19 07/04/19 07/04/19 06:25 07:41 09:00 Temp 36.3 Pulse 87 Resp 18 B/P (MAP) 99/56 Pulse Ox 93 O2 Delivery Room Air Capillary Refill : I&O Intake and Output 07/04/19 00:00 Intake Total 1330 ml Balance 1330 ml Intake Oral 1330 ml # Voids 7 # Bowel Movements 1 General: Alert, Oriented X3, Cooperative, No Acute Distress HEENT: Atraumatic Neck: Supple Lungs: Clear to Auscultation, Normal Air Movement Heart: Regular Rate, Normal S1, Normal S2, No Murmurs Extremities: No Clubbing, No Cyanosis, No Edema, Normal Pulses Skin: No Rashes Neuro: Normal Speech A/P-Cardiology Admission Diagnosis Left femur fx Anemia CAD CHF Assessment/Plan Left femur fracture, post surgical repair done on June 19, 2019. Undergoing rehabilitation. Continue to monitor Anemia, mild thrombocytopenia, managed by Dr. Perez Status post respiratory failure, better, responded to diuretics. Congestive heart failure, acute on chronic left ventricular systolic dysfunction, secondary to chemotherapy and coronary artery disease, ischemic and nonischemic cardiomyopathy, echocardiogram showed ejection fraction 25-30 percent, continue on Coreg and Entresto. Monitor tolerance and response closely. Life vest ordered. Transient hypotension, history of hypertension. Continue on Coreg and Entresto. Borderline hypotensive this morning. Continue to monitor. History of orthostatic dizziness and hypotension, near-syncope, no current syncopal episodes or dizziness reported. Coronary artery disease status post CABG x3 in 2004, cardiac catheterization in April 2014 which showed patent bypass grafts with small vessel disease distally mainly in the LAD system that was receiving retrograde collateral, treated conservatively. Cardiac catheterization was done on November 07, 2014 showing small vessel disease, patent MAHONEY to LAD, vein graft to the circumflex artery and vein graft to the right coronary artery, repeat cardiac catheterization was done in August 2016 showing patent MAHONEY to LAD, vein graft to the obtuse marginal branch with sluggish flow in the [place] circumflex artery, patent vein graft to the right coronary artery, the proximal [place] coronary arteries appear slightly worse with occlusion of the left main, the LAD and diagonal artery are getting collaterals from the right system. He has been asymptomatic. Continue to monitor. Mild bilateral carotid stenosis, ultrasound was done in March 2018. Continue to monitor History of esophageal spasm, EGD by Dr. Manzanares , reporting improvement. 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 Nettles, continue to monitor. 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 Nettles. Hyperlipidemia, continue to monitor lipids. Managed by Dr. Watts. Diabetes mellitus, managed and followed by primary care physician. History of atrial flutter status post ablation in 2004, currently in sinus rhythm. Continue to monitor Clinical Quality Measures DVT/VTE Risk/Contraindication: Risk Factor Score Per Nursin RFS Level Per Nursing on Admit: 4+=Very High Supervisory-Addendum Brief Supervisory Addendum Participated in pt care: history, MDM, physical Personally performed: exam, history, MDM Care discussed with: OLEG Notes: patient was seen at bedside, sitting in a chair, comfortable, borderline hypotensive but asymptomatic. On examination lungs were clear to auscultation, no edema. I'll continue to hold Lasix, continue to monitor. BASSAM GRECO Jul 04, 2019 08:14 CHRISTOPHER TANG MD Jul 04, 2019 12:59
--- NOTE | 2019-07-04 08:15 | PM&R Progress Note ---
Subjective HPI/CC On Admission Date Seen by Provider: Jul 04, 2019 Time Seen by Provider: 08:30 CC: Debility following left hip fracture HPI: This is a 78yoWM clinic pt of [facility] with sever comorbidities who had an uncomplicated left hip fracture repair by Dr. Richards on Wednesday after sustaining a fall at his daughters office after missing a step on the stairs an subsequently was repaired but had some flash pulmonary edema requiring transfer to the ICU and lactic acid elevation with acute sinusitis requiring Zosyn antibiotics empirically along with IV Lasix with close monitoring and severe delirium requiring a live sitter since he was such a fall risk and received two units of blood with good improvement in Hgb of 7.5 and decreased platelet counts so Dr. Alvarado, Dr Nettles, Dr. Foreman and Dr. Richards agreed with plan to transfer to ICU and he was improving significantly so and delirium was improved to the point to where he was able to DC to inpatient rehab and continue his intensive therapies which may require 15/7 intensity because of the delirium but will try our best to initiate. Weight bearing is tolerated per Dr. Richards and we will monitor bowel function, and bladder function and monitor labs in the meantime. 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 Subjective/Events-last exam We will de-access his port today. Life vest will be placed on discharge. Getting Pt ready for discharge, likely tomorrow. Denies any significant pain. Didn't really sleep too well last night. No confusion. Conferred with RN Reviewed therapy notes Check meds and labs Nebulizer treatments will be DC Pain is controlled Delirium much improved Review of Systems General: Fatigue Musculoskeletal: leg pain Objective Exam Vital Signs Vital Signs Date Time Temp Pulse Resp B/P (MAP) Pulse Ox O2 Delivery O2 Flow Rate FiO2 07/04/19 19:39 95 Room Air 07/04/19 17:52 36.5 86 18 118/74 (89) Capillary Refill : General Appearance: No Apparent Distress, WD/WN, Chronically ill HEENT: PERRL/EOMI, Normal ENT Inspection, Pharynx Normal, Moist Mucous Membranes Neck: Full Range of Motion, Normal Inspection, Non Tender, Supple Respiratory: Chest Non Tender, Lungs Clear, Normal Breath Sounds, No Accessory Muscle Use, No Respiratory Distress Cardiovascular: Regular Rate, Rhythm, No Edema, No Gallop, No JVD, No Murmur Gastrointestinal: Normal Bowel Sounds, No Organomegaly, No Pulsatile Mass, Non Tender, Soft Back: Normal Inspection, No CVA Tenderness, No Vertebral Tenderness Extremity: Normal Capillary Refill, Normal Inspection, Normal Range of Motion (except left leg), Non Tender, No Calf Tenderness, No Pedal Edema Neurologic/Psychiatric: Alert, Oriented x3, No Motor/Sensory Deficits, Normal Mood/Affect, 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 FIM Transfers Therapy Code Descriptions/Definitions Functional [place] Measure: 0=Not Assessed/NA 4=Minimal Assistance 1=Total Assistance 5=Supervision or Setup 2=Maximal Assistance 6=Modified [place] 3=Moderate Assistance 7=Complete [place] Therapy Quality Codes: 6 Independent with activity with or without an assistive device 5 Patient requires set up or clean up by helper. Patient completes activity by themselves 4 Supervision or touching assist (CGA). [place] provide cues , steadying assist 3 The helper provides less than half the effort to complete the activity 2 The helper provides more than half the effort to complete the activity 1 Dependent. The helper does all the effort to complete an activity 7 Patient refused to complete or attempt activity 9 The patient did not perform the activity before the current illness or injury 88 Not attempted due to Medical conditions or safety concerns Transfers (B, C, W/C) (FIM): 4 Scootin Rollin Roll Left to Right (QC): 4 Supine to/from Sit: 6 Sit to/from Stand: 6 Sit to Lying (QC): 3 Sit to Stand (QC): 5 Chair/Ppz-wn-Npuhd Xfer(QC): 4 Bed to/from Chair: 6 Car Transfer (QC): 3 Gait Training Does the Patient Walk?: Yes Gait (FIM): 5 Distance (FIM): 3=150 ft (175x2) Distance: 200' x2 Walk 10 feet (QC): 5 Walk 50 ft with 2 Turns(QC): 5 Walk 150 ft (QC): 5 Walking 10ft/uneven surface-QC: 4 Gait Level of Assist: 5 Gait Persons Needed: 1 Gait Assistive Device: FWW Wheelchair Training Does the Pt Use a Wheelchair?: No Stair Training Stair Training: Handrails/: 2 handrails Stairs (FIM): 2 #of Steps: 4 1 Step (curb) (QC): 3 4 Steps (QC): 88 12 Steps (QC): 88 Stairs: Pattern: Step to Level of Assist: 4 Mental Status/Objective Comprehension: 6 Expression: 6 Social Interaction: 7 Problem Solvin Memory: 4 ADL-Treatment Feedin Eating (QC): 6 Groomin (Set up at sink to brush teeth and hair, shave face.) Oral Hygiene (QC): 5 Bathin (CGA in stance.) Shower/Bathe Self (QC): 4 Upper Extremity Dressin Upper Body Dressing (QC): 4 Lower Extremity Dressin (With AE.) Lower Body Dressing (QC): 4 On/Off Footwear (QC): 4 Toiletin Toileting Hygiene (QC): 4 Toilet/Commode Transfer: 4 Toilet Transfer (QC): 4 Shower: 4 Assessment/Plan Assessment and Plan Assess & Plan/Chief Complaint Assessment: Left femur fracture s/p fall after missed 1 step on stairs s/p repair POD # 15 Acute and severe delirium with severe insomnia x 5 days now resolved with Zyprexa at night will decrease from 5mg at night to 2.5mg to wean off Sepsis due to URI and acute sinusitis and bronchitis placed on Zosyn and changed to PO abx Flash pulmonary edema s/p Lasix CHF EF 30% decreased from 50% on ECHO will need Life vest for 90 days then possible defib s/p post op anemia s/p 2 units of blood in ICU improved hgb 11 today COPD on Singulair and Claritin and ICS prn restarted on home meds and Nebs 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 diff history h/o ARF while at [facility] for ALL induction PUD Remission for acute lymphocytic leukemia for [address] Perez Ischemic cardiomyopathy with improvement in ejection fraction from 30 percent to 55 percent due to Entresto management but now decreased since acute illness so needs life vest then defib Plan: IRF DVT PPx per Dr Nettles if needed with Lovenox Monitor for ACS and CHF Appreciate Dr Foreman and Dr Richards and Dr Alvarado and Dr Nettles Change to PO abx soon Staple removal next Wednesday Minimize bed alarm interruptions Change Nebs to Albuterol only and prn today Much improved status, home tomorrow (1) Fracture of femur, intertrochanteric, left, closed Status: Acute Qualifiers: Encounter type: subsequent encounter (2) Non-ST elevation myocardial infarction (NSTEMI) Status: Acute (3) CAD (coronary artery disease) Status: Chronic Qualifiers: Coronary Disease-Associated Artery/Lesion type: [place] artery [place] vs. transplanted heart: [place] heart Associated angina: without angina Qualified Codes: I25.10 - Atherosclerotic heart disease of [place] coronary artery without angina pectoris (4) ALL (acute lymphocytic leukemia) Status: Chronic (5) Neuropathy Status: Chronic (6) Renal insufficiency Status: Chronic (7) Hypertension Status: Chronic Qualifiers: Hypertension type: essential hypertension Qualified Codes: I10 - Essential (primary) hypertension (8) Sciatic neuropathy Status: Chronic (9) Ischemic cardiomyopathy Status: Chronic (10) Postoperative pain Status: Acute (11) Postoperative anemia Status: Acute (12) History of Clostridium difficile infection Status: Chronic (13) COPD (chronic obstructive pulmonary disease) Status: Chronic Qualifiers: COPD type: unspecified COPD Qualified Codes: J44.9 - Chronic obstructive pulmonary disease, unspecified (14) Acute delirium Status: Acute (15) Sepsis Status: Resolved Resolution Date/Time: 06/24/19 @ 07:04 (16) Orthostasis Status: Chronic (17) Flash pulmonary edema Status: Resolved Resolution Date/Time: 06/24/19 @ 07:04 (18) Troponin level elevated Status: Resolved Resolution Date/Time: 06/24/19 @ 07:04 (19) COPD with acute exacerbation Status: Resolved Resolution Date/Time: 06/24/19 @ 07:04 (20) Elevated brain natriuretic peptide (BNP) level Status: Resolved Resolution Date/Time: 06/24/19 @ 07:04 (21) Transfusion of blood during current hospitalization Status: Resolved Resolution Date/Time: 06/24/19 @ 07:04 (22) Elevated lactic acid level Status: Resolved Resolution Date/Time: 06/24/19 @ 07:04 (23) Fever Status: Resolved Resolution Date/Time: 10/18/18 @ 12:40 (24) Shortness of breath Status: Resolved Resolution Date/Time: 10/18/18 @ 12:40 (25) Cough Status: Acute (26) Pneumonia Status: Acute (27) Non-ST elevation myocardial infarction (NSTEMI) Status: Acute (28) Dehydration, moderate Status: Resolved Resolution Date/Time: 10/18/18 @ 12:41 (29) Severe anemia Status: Acute ADALBERTO ARENAS DO Jul 04, 2019 08:15
--- NOTE | 2019-07-04 08:59 | Physical Therapy Daily Note ---
PT Daily Note-Current Subjective Pt sitting in recliner upon arrival. Pt agrees to PT for FIM scoring for possible D/C tomorrow (07/05). Pain Location: No Pain Reported Mental Status Patient Orientation: Person, Place, Time, Situation Transfers Therapy Code Descriptions/Definitions Functional [place] Measure: 0=Not Assessed/NA 4=Minimal Assistance 1=Total Assistance 5=Supervision or Setup 2=Maximal Assistance 6=Modified [place] 3=Moderate Assistance 7=Complete [place] Therapy Quality Codes: 6 Independent with activity with or without an assistive device 5 Patient requires set up or clean up by helper. Patient completes activity by themselves 4 Supervision or touching assist (CGA). [place] provide cues , steadying assist 3 The helper provides less than half the effort to complete the activity 2 The helper provides more than half the effort to complete the activity 1 Dependent. The helper does all the effort to complete an activity 7 Patient refused to complete or attempt activity 9 The patient did not perform the activity before the current illness or injury 88 Not attempted due to Medical conditions or safety concerns Transfers (B, C, W/C) (FIM): 6 Scootin Rollin Roll Left to Right (QC): 6 Supine to/from Sit: 7 Sit to/from Stand: 6 Sit to Lying (QC): 7 Sit to Stand (QC): 6 Chair/Blt-ln-Ejiic Xfer(QC): 6 Bed to/from Chair: 6 Car Transfer (QC): 6 Weight Bearing Right Lower Extremity: Right Weight Bearing/Tolerated Left Lower Extremity: Left Weight Bearing/Tolerated Gait Training Does the Patient Walk?: Yes Gait (FIM): 6 Distance (FIM): 3=150 ft Distance: 200' Walk 10 feet (QC): 6 Walk 50 ft with 2 Turns(QC): 6 Walk 150 ft (QC): 6 Walking 10ft/uneven surface-QC: 6 Gait Level of Assist: 6 Gait Persons Needed: 1 Gait Assistive Device: FWW Wheelchair Training Does the Pt Use a Wheelchair?: No Stair Training Stair Training: Handrails/: 2 handrails Stairs (FIM): 2 #of Steps: 4 1 Step (curb) (QC): 6 4 Steps (QC): 6 12 Steps (QC): 88 Stairs: Pattern: Step to Level of Assist: 6 Pt fatigues after 1 set of stairs and advises he only has 2 steps to enter home. Balance Picking up an Object (QC): 4 Special Test Comments Pt has acetone button paster at home. Pt is a little wobbly picking up object from floor. Exercises NuStep Minutes: 15 NuStep Workload: 5 Treatments Pt completes FIM scoring items including: bed mobility, transfers including car transfer, ambulation including across varying surface, 1 set of 4 steps & picking up object from floor. Pt also uses NuStep for 15m at WL 5. Pt returns to room at end of tx to rest, all needs met, call light in hand. Assessment Current Status: Good Progress Pt tolerates tx well, occasionally fatigues needing RB. PT Short Term Goals Short Term Goals Time Frame: Jul 07, 2019 Gait (FIM): 4 Distance (FIM): 3=150 ft Gait Distance Comment: 150' Gait Level of Assist: 4 Gait Assistive Device: FWW Stairs (FIM): 2 # of Steps: 4 Stairs Level of Assist: 4 PT Job Coaching Goals Assisted Goals PT Job Coaching Goals Time Frame: Jul 21, 2019 Transfers (B,C,W/C) (FIM): 6 Sit to Lying (QC): 6 Lying-Sitting on Side/Bed(QC): 6 Sit to Stand (QC): 6 Rollin Roll Left to Right (QC): 6 Chair/Zir-jf-Qwiet Xfer(QC): 6 Car Transfer (QC): 6 Does the Patient Walk: Yes Gait (FIM): 6 Gait distance (FIM): 3=150 ft Distance: 250' Walk 10 feet (QC): 6 Walk 10ft-Uneven Surface(QC): 6 Walk 50ft with 2 Turns (QC): 6 Walk 150 ft (QC): 6 Gait Level of Assist: 6 Gait Assistive Device: FWW Stairs (FIM): 6 # of Steps: 12 1 Step (curb) (QC): 6 4 Steps (QC): 6 12 Steps (QC): 6 Stairs Level Of Assist: 6 Picking up an Object (QC): 6 PT Plan Problem List Problem List: Activity Tolerance Treatment/Plan Treatment Plan: Continue Plan of Care Treatment Plan: Bed Mobility, Education, Functional Activity Tessie, Functional Strength, Group Therapy, Gait, Safety, Therapeutic Exercise, Transfers Treatment Duration: Jul 21, 2019 Frequency: At least 5 of 7 days/Wk (IRF) Estimated Hrs Per Day: 1.5 hours per day Patient and/or Family Agrees t: Yes Safety Risks/Education Patient Education: Gait Training, Transfer Techniques, Steps, Correct Positioning, Safety Issues Teaching Recipient: Patient Teaching Methods: Discussion Response to Teaching: Verbalize Understanding Time/GCodes Time In: 815 Time Out: 900 Total Billed Treatment Time: 45 Total Billed Treatment 1, FA (20m), GT (10m) & EX (15m) ANTONIO CASE ELECTRONIC INDUCTION HARDENER Jul 04, 2019 08:59
[2019-07-04] MEDS: SENNA W/DOCUSATE (SENOKOT S) TABLET PO SCH ×2 (09:16→20:28)
[2019-07-04] MEDS: SERTRALINE 100 MG (ZOLOFT) TAB PO SCH (09:17)
[2019-07-04] MEDS: SACUBITRIL/VALSARTAN 24/26 MG (ENTRESTO) TABLET PO SCH ×2 (09:17→20:28)
[2019-07-04] MEDS: LORATADINE (CLARITIN) 10 MG TAB PO SCH (09:17)
[2019-07-04] MEDS: PANTOPRAZOLE 40 MG (PROTONIX) TAB PO SCH (09:17)
[2019-07-04] MEDS: CARVEDILOL 3.125 MG (COREG) TABLET PO SCH ×2 (09:17→20:28)
[2019-07-04] MEDS: FLUTICASONE NASAL SPRAY (FLONASE) 16 GM BTL NS SCH (09:19)
--- NOTE | 2019-07-04 10:00 | NUR ---
[facility] WILL NOTIFY ELISSA THAT LIFE VEST NEEDS TO BE PUT ON PATIENT TOMORROW PRIOR TO DISCHARGE.
--- NOTE | 2019-07-04 11:30 | NUR ---
RIGHT PORT DE-ACCESSED AFTER FLUSHED WELL WITH SALINE. BANDAID PUT TO SITE.
--- NOTE | 2019-07-04 11:59 | Occupational Ther Daily Note ---
OT Current Status-Daily Note Subjective No pain reported. Pt. reports that he feels he is ready to go home. Appearance Pt. in bed. Agrees to treatment. Mental Status/Objective Patient Orientation: Person, Place, Time, Situation Therapy Code Descriptions/Definitions Functional [place] Measure: 0=Not Assessed/NA 4=Minimal Assistance 1=Total Assistance 5=Supervision or Setup 2=Maximal Assistance 6=Modified [place] 3=Moderate Assistance 7=Complete [place] ADL-Treatment Therapy Code Descriptions/Definitions Functional [place] Measure: 0=Not Assessed/NA 4=Minimal Assistance 1=Total Assistance 5=Supervision or Setup 2=Maximal Assistance 6=Modified [place] 3=Moderate Assistance 7=Complete [place] Therapy Quality Codes: 6 Independent with activity with or without an assistive device 5 Patient requires set up or clean up by helper. Patient completes activity by themselves 4 Supervision or touching assist (CGA). [place] provide cues , steadying assist 3 The helper provides less than half the effort to complete the activity 2 The helper provides more than half the effort to complete the activity 1 Dependent. The helper does all the effort to complete an activity 7 Patient refused to complete or attempt activity 9 The patient did not perform the activity before the current illness or injury 88 Not attempted due to Medical conditions or safety concerns Eating (FIM): 6 Eating (QC): 6 Grooming (FIM): 6 Oral Hygiene (QC): 6 Bathing (FIM): 5 Shower/Bathe Self (QC): 4 Upper Body (FIM): 6 Upper Body Dressing (QC): 6 Lower Body Dressing (FIM): 6 (With AE) Lower Body Dressing (QC): 6 On/Off Footwear (QC): 6 Toileting (FIM): 6 Toileting Hygiene (QC): 6 Transfers (B, C, W/C) (FIM): 6 Toilet/Commode Transfer (FIM): 6 Toilet Transfer (QC): 6 Shower Transfer(FIM): 6 Other Treatment Pt. able to complete shower and dressing using AE with. SBA to shower and Mod I with dressing. After ADLs, pt. ambulated to large bathroom in which he was educated on tub transfer bench, grab bars, and hand held shower hose. Pt. verbalizes understanding of tub transfer bench at home for safety, and states that he also has someone that can install grab bars for him. Pt. educated on sandpaper strips or slip resistant mat in bathroom. Verbalizes understanding. Ambulated to therapy gym and donned 1 lb. wrist weights to complete fine motor coordination tasks/UE strengthening tasks. Ambulated back to room with Mod I and walker. All needs met in room. Education OT Patient Education: Correct positioning, Exercise program, Modified ADL techn iques, Progress toward Goal/Update tx plan, Purpose of tx/functional activities, Reviewed precautions, Rehab process, Transfer techniques, Use of adapted equipment Teaching Recipient: Patient Teaching Methods: Demonstration, Discussion Response to Teaching: Verbalize Understanding, Return Demonstration OT Short Term Goals Short Term Goals Time Frame: Jul 07, 2019 Bathing(FIM): 4 Upper Body Dressing(FIM): 5 Lower Body Dressing(FIM): 4 Toileting(FIM): 4 Toilet/Commode Transfer(FIM): 4 Additional Short Term Goals: 1-Demonstrate ADL Tasks, 2-Verbalize Understanding, 3-ImproveStrength/Tessie 1=Demonstrate adherence to instructed precautions during ADL tasks. 2=Patient will verbalize/demonstrate understanding of assistive devices/modifications for ADL. 3=Patient will improve strength/tolerance for activity to enable patient to perform ADL's. OT Change Over Goals Care Home Goals Time Frame: Jul 21, 2019 Eating (FIM): 6 Eating (QC): 6 Groomin Oral Hygiene (QC): 6 Bathing(FIM): 5 Shower/Bathe Self (QC): 5 Upper Body Dressing(FIM): 6 Upper Body Dressing (QC): 6 Lower Body Dressing(FIM): 6 Lower Body Dressing (QC): 6 On/Off Footwear (QC): 6 Toileting(FIM): 6 Toileting Hygiene (QC): 6 Toilet/Commode Transfer(FIM): 6 Toilet/Commode Transfer (QC): 6 Shower Transfer(FIM): 5 Additional Goals: 1-Demonstrate ADL Tasks, 2-Verbalize Understanding, 3- ImproveStrength/Tessie 1=Demonstrate adherence to instructed precautions during ADL tasks. 2=Patient will verbalize/demonstrate understanding of assistive device s/modifications for ADL. 3=Patient will improve strength/tolerance for activity to enable patient to perform ADL's. OT Education/Plan Discharge Recommendations Plan/Recommendations: Continue POC Therapy Discharge Recommendati: Post Acute OT Equpiment Recommendations-D/C: Extended Bath Bench, Hip Kit Treatment Plan/Plan of Care Treatment,Training & Education: Yes Patient would benefit from OT for education, treatment and training to promote independence in ADL's, mobility, safety and/or upper extremity function for ADL's. Plan of Care: ADL Retraining, Functional Mobility, Group Exercise/Act as Ind, UE Funct Exercise/Act Treatment Duration: Jul 21, 2019 Frequency: At least 5 of 7 days/Wk (IRF) Estimated Hrs Per Day: 1.5 hours per day Agreement: Yes Rehab Potential: Good Time/GCodes Start Time: 10:15 Stop Time: 11:30 Total Time Billed (hr/min): 75 Billed Treatment Time 1, ADL x 45minutes, FA x 30minutes SO MALONE OT Jul 04, 2019 11:59
--- NOTE | 2019-07-04 14:02 | Physical Therapy Daily Note ---
PT Daily Note-Current Subjective Pt sitting in chair in room upon arrival. Pt agrees to PT. Pain Location: No Pain Reported Mental Status Patient Orientation: Person, Place, Time, Situation Transfers Therapy Code Descriptions/Definitions Functional [place] Measure: 0=Not Assessed/NA 4=Minimal Assistance 1=Total Assistance 5=Supervision or Setup 2=Maximal Assistance 6=Modified [place] 3=Moderate Assistance 7=Complete [place] Therapy Quality Codes: 6 Independent with activity with or without an assistive device 5 Patient requires set up or clean up by helper. Patient completes activity by themselves 4 Supervision or touching assist (CGA). [place] provide cues , steadying assist 3 The helper provides less than half the effort to complete the activity 2 The helper provides more than half the effort to complete the activity 1 Dependent. The helper does all the effort to complete an activity 7 Patient refused to complete or attempt activity 9 The patient did not perform the activity before the current illness or injury 88 Not attempted due to Medical conditions or safety concerns Scootin Sit to/from Stand: 6 Sit to Stand (QC): 6 Weight Bearing Right Lower Extremity: Right Weight Bearing/Tolerated Left Lower Extremity: Left Weight Bearing/Tolerated Gait Training Does the Patient Walk?: Yes Gait (FIM): 6 Distance (FIM): 3=150 ft Distance: 150' Walk 10 feet (QC): 6 Walk 50 ft with 2 Turns(QC): 6 Walk 150 ft (QC): 6 Gait Level of Assist: 6 Gait Persons Needed: 1 Gait Assistive Device: FWW Exercises NuStep Minutes: 15 NuStep Workload: 5 Treatments Pt transfers from chair to standing then ambulates in hallway. Pt uses NuStep for 15m at WL 5 as requested for increasing strength and activity tolerance. Pt ambulates in hallway and returns to room to rest at end of tx. Pt has all needs met, call light in hand. Assessment Current Status: Good Progress Pt tolerated tx well. PT Short Term Goals Short Term Goals Time Frame: Jul 07, 2019 Gait (FIM): 4 Distance (FIM): 3=150 ft Gait Distance Comment: 150' Gait Level of Assist: 4 Gait Assistive Device: FWW Stairs (FIM): 2 # of Steps: 4 Stairs Level of Assist: 4 PT Rug Clipper Goals Rug Clipper Goals PT Rug Clipper Goals Time Frame: Jul 21, 2019 Transfers (B,C,W/C) (FIM): 6 Sit to Lying (QC): 6 Lying-Sitting on Side/Bed(QC): 6 Sit to Stand (QC): 6 Rollin Roll Left to Right (QC): 6 Chair/Dbw-dv-Nhgxn Xfer(QC): 6 Car Transfer (QC): 6 Does the Patient Walk: Yes Gait (FIM): 6 Gait distance (FIM): 3=150 ft Distance: 250' Walk 10 feet (QC): 6 Walk 10ft-Uneven Surface(QC): 6 Walk 50ft with 2 Turns (QC): 6 Walk 150 ft (QC): 6 Gait Level of Assist: 6 Gait Assistive Device: FWW Stairs (FIM): 6 # of Steps: 12 1 Step (curb) (QC): 6 4 Steps (QC): 6 12 Steps (QC): 6 Stairs Level Of Assist: 6 Picking up an Object (QC): 6 PT Plan Problem List Problem List: Activity Tolerance Treatment/Plan Treatment Plan: Continue Plan of Care Treatment Plan: Bed Mobility, Education, Functional Activity Tessie, Functional Strength, Group Therapy, Gait, Safety, Therapeutic Exercise, Transfers Treatment Duration: Jul 21, 2019 Frequency: At least 5 of 7 days/Wk (IRF) Estimated Hrs Per Day: 1.5 hours per day Patient and/or Family Agrees t: Yes Safety Risks/Education Patient Education: Correct Positioning, Safety Issues Teaching Recipient: Patient Teaching Methods: Discussion Response to Teaching: Verbalize Understanding Time/GCodes Time In: 1300 Time Out: 1330 Total Billed Treatment Time: 30 Total Billed Treatment 1, GT (15m) & EX (15m) ANTONIO CASE ORGAN GRINDER Jul 04, 2019 14:01
--- NOTE | 2019-07-04 15:32 | Speech Therapy Daily Note ---
Speech Daily Progress Note Subjective Date Seen by Provider: Jul 04, 2019 Time Seen by Provider: 00:30 Patient stated he hopes he is released to return home tomorrow. Objective Patient was re-assessed with the SLUMS with results of which falls in the normal range of function. Assessment Assessment Current Status: Excellent Progress Treatment Plan Continue Plan of Care Communication Comprehension: 6 Expression: 6 Social Cognition Social Interaction: 7 Problem Solvin Memory: 4 Speech Short Term Goals Short Term Goals Short Term Goals 1) The patient will complete memory tasks with 90% or greater accuracy given minimal cues. 2) The patient will complete problem solving tasks with 90% or greater accuracy given minimal cues. 3) The patient will complete safety awareness tasks with 90% or greater accuracy given minimal cues. Speech Halfway Goals Halfway Goals The patient will improve cognitive function in order to return to his prior living situation safely. Speech-Plan Patient/Family Goals Patient/Family Goals: Patient plans on returning home where he lives with his upon discharge. Treatment Plan Speech Therapy Treatment Plan: Continue Plan of Care Patient has made excellent progress with cognitive level of function. Treatment Duration: Jul 05, 2019 Frequency: 5 times per week Estimated Hrs Per Day: .5 hour per day Rehab Potential: Good Pt/Family Agrees to Plan: Yes Safety Risks/Education Teaching Recipient: Patient Teaching Methods: Demonstration, Discussion Response to Teaching: Verbalize Understanding, Return Demonstration Education Topics Provided: Continued safety upon his return home. Time Speech Therapy Time In: 11:30 Speech Therapy Time Out: 12:00 Total Billed Time: 30 Billed Treatment Time [address] Jul 04, 2019 15:32
--- NOTE | 2019-07-04 16:10 | NUR ---
Discharge planning Informed by RN that patient is planning to discharge home tomorrow, 07/05/19. RN reports that patient will receive Life Vest tomorrow morning and then discharge home. Met with patient to discuss discharge plan and he confirms that he plans on discharging home tomorrow after receiving Life Vest. This worker asked about HHC and/or outpatient therapy, but patient states he does not think he needs either. Will confirm with Dr. Watts tomorrow morning. Reviewed IMM with patient, patient verbalized understanding and signed.
[2019-07-04 17:52] VITALS: BP 118/74
[2019-07-04] MEDS: MONTELUKAST 10 MG (SINGULAIR) TAB PO SCH (20:28)
[2019-07-04] MEDS: OLANZapine 5 MG ODT (ZyPREXA ZYDIS) PO SCH (20:31)
[2019-07-04] MEDS: MELATONIN 3 MG TABLET PO PRN (20:31)
[2019-07-05] MEDS: inSUlin ASPART (NovoLOG) 1 UNIT/0.01 ML (CHARGE PER UNIT) SC SCH ×2 (05:13→11:10)
[2019-07-05 05:21] VITALS: BP 106/65
[2019-07-05] MEDS: LACTOBACILLUS Acidoph/Bulgar 1 GM (LACTINEX) PACKET PO SCH ×2 (05:49→11:11)
[2019-07-05] MEDS: RT-ADVAIR HFA 115/21 MCG PER PUFF IH SCH (07:16)
[2019-07-05] MEDS: SERTRALINE 100 MG (ZOLOFT) TAB PO SCH (08:26)
[2019-07-05] MEDS: SACUBITRIL/VALSARTAN 24/26 MG (ENTRESTO) TABLET PO SCH (08:26)
[2019-07-05] MEDS: CARVEDILOL 3.125 MG (COREG) TABLET PO SCH (08:26)
[2019-07-05] MEDS: PANTOPRAZOLE 40 MG (PROTONIX) TAB PO SCH (08:26)
[2019-07-05] MEDS: LORATADINE (CLARITIN) 10 MG TAB PO SCH (08:27)
[2019-07-05] MEDS: SENNA W/DOCUSATE (SENOKOT S) TABLET PO SCH (08:27)
[2019-07-05] MEDS: FLUTICASONE NASAL SPRAY (FLONASE) 16 GM BTL NS SCH (08:28)
--- NOTE | 2019-07-05 08:43 | Cardiology Progress Note ---
Subjective Date Seen by Provider: Jul 05, 2019 Time Seen by Provider: 08:42 Subjective/Events-last exam Patient is asleep in bed, easily awakens to answer questions. Denies any chest pain or dyspnea. Denies any dizziness. Objective-Cardiology Exam Last Set of Vital Signs Vital Signs 07/05/19 07/05/19 05:21 07:17 Temp 36.0 Pulse 72 Resp 18 B/P (MAP) 106/65 (79) Pulse Ox 93 O2 Delivery Room Air Capillary Refill : I&O Intake and Output 07/05/19 00:00 Intake Total 1440 ml Balance 1440 ml Intake Oral 1440 ml # Voids 7 # Bowel Movements 1 General: Alert, Oriented X3, Cooperative, No Acute Distress HEENT: Atraumatic Neck: Supple Lungs: Clear to Auscultation, Normal Air Movement Heart: Regular Rate, Normal S1, Normal S2, No Murmurs Extremities: No Clubbing, No Cyanosis, No Edema, Normal Pulses Skin: No Rashes Neuro: Normal Speech A/P-Cardiology Admission Diagnosis Left femur fx Anemia CAD CHF Assessment/Plan Left femur fracture, post surgical repair done on June 19, 2019. Undergoing rehabilitation. Continue to monitor Anemia, mild thrombocytopenia, managed by Dr. Perez Status post respiratory failure, better, responded to diuretics. Congestive heart failure, acute on chronic left ventricular systolic dysfunction, secondary to chemotherapy and coronary artery disease, ischemic and nonischemic cardiomyopathy, echocardiogram showed ejection fraction 25-30 percent, continue on Coreg and Entresto. Monitor tolerance and response closely. Life vest ordered. Transient hypotension, history of hypertension. Continue on Coreg and Entresto. Continue to monitor. History of orthostatic dizziness and hypotension, near-syncope, no current syncopal episodes or dizziness reported. Coronary artery disease status post CABG x3 in 2004, cardiac catheterization in April 2014 which showed patent bypass grafts with small vessel disease distally mainly in the LAD system that was receiving retrograde collateral, treated conservatively. Cardiac catheterization was done on November 07, 2014 showing s mall vessel disease, patent MAHONEY to LAD, vein graft to the circumflex artery and vein graft to the right coronary artery, repeat cardiac catheterization was done in August 2016 showing patent MAHONEY to LAD, vein graft to the obtuse marginal branch with sluggish flow in the tejon circumflex artery, patent vein graft to the right coronary artery, the proximal tejon coronary arteries appear slightly worse with occlusion of the left main, the LAD and diagonal artery are getting collaterals from the right system. He has been asymptomatic. Continue to monitor. Mild bilateral carotid stenosis, ultrasound was done in March 2018. Continue to monitor History of esophageal spasm, EGD by Dr. Manzanares , reporting improvement. 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 Nettles, continue to monitor. 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 Nettles. Hyperlipidemia, continue to monitor lipids. Managed by Dr. Watts. Diabetes mellitus, managed and followed by primary care physician. History of atrial flutter status post ablation in 2004, currently in sinus rhythm. Continue to monitor Clinical Quality Measures DVT/VTE Risk/Contraindication: Risk Factor Score Per Nursin RFS Level Per Nursing on Admit: 4+=Very High BASSAM GRECO Jul 05, 2019 08:43
[2019-07-05] MEDS ORDERED: ACHD5005 PO (08:57)
--- NOTE | 2019-07-05 08:59 | Discharge Summary ---
Diagnosis/Chief Complaint Date of Admission Jun 23, 2019 at 09:22 Date of Discharge Discharge Date: Jul 05, 2019 Discharge Diagnosis Assessment: Left femur fracture s/p fall after missed 1 step on stairs s/p repair POD # 15 Acute and severe delirium with severe insomnia x 5 days now resolved with Zyprexa at night will decrease from 5mg at night to 2.5mg to wean off Sepsis due to URI and acute sinusitis and bronchitis placed on Zosyn and changed to PO abx Flash pulmonary edema s/p Lasix CHF EF 30% decreased from 50% on ECHO will need Life vest for 90 days then possible defib s/p post op anemia s/p 2 units of blood in ICU improved hgb 11 today COPD on Singulair and Claritin and ICS prn restarted on home meds and Nebs 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 diff history h/o ARF while at [facility] for ALL induction PUD Remission for acute lymphocytic leukemia for [address] Perez Ischemic cardiomyopathy with improvement in ejection fraction from 30 percent to 55 percent due to Entresto management but now decreased since acute illness so needs life vest then defib Plan: IRF DVT PPx per Dr Nettles if needed with Lovenox Monitor for ACS and CHF Appreciate Dr Foreman and Dr Richards and Dr Alvarado and Dr Nettles Change to PO abx soon Staple removal next Wednesday Minimize bed alarm interruptions Change Nebs to Albuterol only and prn today Much improved status, home tomorrow (1) Fracture of femur, intertrochanteric, left, closed Status: Acute Qualifiers: Encounter type: subsequent encounter (2) Non-ST elevation myocardial infarction (NSTEMI) Status: Acute (3) CAD (coronary artery disease) Status: Chronic Qualifiers: Coronary Disease-Associated Artery/Lesion type: [place]rokee artery [place] vs. transplanted heart: cherokee heart Associated angina: without angina Qualified Codes: I25.10 - Atherosclerotic heart disease of cherokee coronary artery without angina pectoris (4) ALL (acute lymphocytic leukemia) Status: Chronic (5) Neuropathy Status: Chronic (6) Renal insufficiency Status: Chronic (7) Hypertension Status: Chronic Qualifiers: Hypertension type: essential hypertension Qualified Codes: I10 - Essential (primary) hypertension (8) Sciatic neuropathy Status: Chronic (9) Ischemic cardiomyopathy Status: Chronic (10) Postoperative pain Status: Acute (11) Postoperative anemia Status: Acute (12) History of Clostridium difficile infection Status: Chronic (13) COPD (chronic obstructive pulmonary disease) Status: Chronic Qualifiers: COPD type: unspecified COPD Qualified Codes: J44.9 - Chronic obstructive pulmonary disease, unspecified (14) Acute delirium Status: Acute (15) Sepsis Status: Resolved Resolution Date/Time: 06/24/19 @ 07:04 (16) Orthostasis Status: Chronic (17) Flash pulmonary edema Status: Resolved Resolution Date/Time: 06/24/19 @ 07:04 (18) Troponin level elevated Status: Resolved Resolution Date/Time: 06/24/19 @ 07:04 (19) COPD with acute exacerbation Status: Resolved Resolution Date/Time: 06/24/19 @ 07:04 (20) Elevated brain natriuretic peptide (BNP) level Status: Resolved Resolution Date/Time: 06/24/19 @ 07:04 (21) Transfusion of blood during current hospitalization Status: Resolved Resolution Date/Time: 06/24/19 @ 07:04 (22) Elevated lactic acid level Status: Resolved Resolution Date/Time: 06/24/19 @ 07:04 (23) Fever Status: Resolved Resolution Date/Time: 10/18/18 @ 12:40 (24) Shortness of breath Status: Resolved Resolution Date/Time: 10/18/18 @ 12:40 (25) Cough Status: Acute (26) Pneumonia Status: Acute (27) Non-ST elevation myocardial infarction (NSTEMI) Status: Acute (28) Dehydration, moderate Status: Resolved Resolution Date/Time: 10/18/18 @ 12:41 (29) Severe anemia Status: Acute Reason Hospital Visit See above Discharge Summary Discharge Physical Examination Allergies: Coded Allergies: No Known Drug Allergies (Verified , 09/19/08) Vitals & I&Os Vital Signs Date Time Temp Pulse Resp B/P (MAP) Pulse Ox O2 Delivery O2 Flow Rate FiO2 07/05/19 13:38 36.0 82 18 125/70 97 Room Air General Appearance: Alert, Oriented X3, Cooperative Respiratory: Clear to Auscultation Cardiovascular: Regular Rate Neuro: Normal Gait, Normal Speech, Strength at 5/5 X4 Ext Hospital Course Was the Problem List Reviewed?: Yes Hospital Course: Pt had a nearly two week hospital course in inpatient rehab. He suffered quite a bit of delirium in the ICU after transfusion and sepsis from upper respiratory illness and sinusitis so he was transition to oral antibiotics. While in inpatient rehab he was able to participate in all therapies and he was fitted for life vest since his ejection fraction was 25- 30%. He was restarted on Entresto and Coreg and cardiology followed him along with pulmonology and overall had good results with intensive rehab and was able to be discharged to home with outpatient PT at [facility] and will be monitored closely in the meantime by PCP, Cardiology, Pulmonology and Dr. Richards. Labs (last 24 hrs) Laboratory Tests 06/23/19 16:03: Glucometer 253H 06/23/19 20:51: Glucometer 293H 06/24/19 05:53: Glucometer 185H 06/24/19 07:00: White Blood Count 4.5, Red Blood Count 2.64L, Hemoglobin 8.4L, Hematocrit 25L, M ilsa Corpuscular Volume 95, Mean Corpuscular Hemoglobin 32, Mean Corpuscular Hemoglobin Concent 34, Red Cell Distribution Width 13.9, Platelet Count 132, Mean Platelet Volume 9.1, Neutrophils (%) (Auto) 56, Lymphocytes (%) (Auto) 27, Monocytes (%) (Auto) 12, Eosinophils (%) (Auto) 5, Basophils (%) (Auto) 0, Neutrophils # (Auto) 2.5, Lymphocytes # (Auto) 1.2, Monocytes # (Auto) 0.6, Eosinophils # (Auto) 0.2, Basophils # (Auto) 0.0, Sodium Level 142, Potassium Level 3.6, Chloride Level 106, Carbon Dioxide Level 26, Anion Gap 10, Blood Urea Nitrogen 22H, Creatinine 1.06, Estimat Glomerular Filtration Rate > 60, BUN/ Creatinine Ratio 21, Glucose Level 157H, Calcium Level 8.1L, Corrected Calcium 8.8, Total Bilirubin 1.1H, Aspartate Amino Transf (AST/SGOT) 35H, Alanine Aminotransferase (ALT/SGPT) 32, Alkaline Phosphatase 39L, Total Protein 5.7L, Albumin 3.1L 06/24/19 11:38: Glucometer 192H 06/24/19 15:46: Glucometer 170H 06/24/19 20:26: Glucometer 210H 06/25/19 05:19: Glucometer 196H 06/25/19 11:28: Glucometer 201H 06/25/19 16:17: Glucometer 192H 06/25/19 20:30: Glucometer 211H 06/26/19 05:44: Glucometer 119H 06/26/19 05:45: White Blood Count 6.3, Red Blood Count 2.80L, Hemoglobin 8.9L, Hematocrit 27L, Mean Corpuscular Volume 95, Mean Corpuscular Hemoglobin 32, Mean Corpuscular Hemoglobin Concent 34, Red Cell Distribution Width 13.8, Platelet Count 201, Mean Platelet Volume 8.7, Neutrophils (%) (Auto) 61, Lymphocytes (%) (Auto) 24, Monocytes (%) (Auto) 10, Eosinophils (%) (Auto) 5, Basophils (%) (Auto) 0, Neutrophils # (Auto) 3.8, Lymphocytes # (Auto) 1.5, Monocytes # (Auto) 0.7, Eosinophils # (Auto) 0.3, Basophils # (Auto) 0.0, Sodium Level 142, Potassium Level 3.5L, Chloride Level 106, Carbon Dioxide Level 25, Anion Gap 11, Blood Urea Nitrogen 15, Creatinine 0.84, Estimat Glomerular Filtration Rate > 60, BUN/Creatinine Ratio 18, Glucose Level 114H, Calcium Level 8.7, Corrected Calcium 9.3, Total Bilirubin 1.0, Aspartate Amino Transf (AST/SGOT) 28, Alanine Aminotransferase (ALT/SGPT) 34, Alkaline Phosphatase 58, Total Protein 5.9L, Albumin 3.2 06/26/19 10:57: Glucometer 207H 06/26/19 15:35: Glucometer 211H 06/26/19 20:27: Glucometer 216H 06/27/19 05:35: Glucometer 130H 06/27/19 11:55: Glucometer 187H 06/27/19 17:29: Glucometer 137H 06/27/19 22:03: Glucometer 213H 06/28/19 05:42: Glucometer 103 06/28/19 09:21: Glucometer 197H 06/28/19 10:26: White Blood Count 9.4, Red Blood Count 3.45L, Hemoglobin 11.0#L, Hematocrit 33L, Mean Corpuscular Volume 95, Mean Corpuscular Hemoglobin 32, Mean Corpuscular Hemoglobin Concent 33, Red Cell Distribution Width 14.3, Platelet Count 347, Mean Platelet Volume 8.3, Neutrophils (%) (Auto) 69, Lymphocytes (%) (Auto) 17, Monocytes (%) (Auto) 10, Eosinophils (%) (Auto) 3, Basophils (%) (Auto) 0, Neutrophils # (Auto) 6.5, Lymphocytes # (Auto) 1.6, Monocytes # (Auto) 1.0, Eosinophils # (Auto) 0.3, Basophils # (Auto) 0.0, Sodium Level 139, Potassium Level 3.9, Chloride Level 101, Carbon Dioxide Level 22, Anion Gap 16H, Blood Urea Nitrogen 20H, Creatinine 1.26, Estimat Glomerular Filtration Rate 55, BUN/Creatinine Ratio 16, Glucose Level 163H, Calcium Level 9.9, Corrected Calci um 10.0, Iron Level 72, Total Bilirubin 1.3H, Aspartate Amino Transf (AST/SGOT) 25, Alanine Aminotransferase (ALT/SGPT) 33, Alkaline Phosphatase 63, B-Type Natriuretic Peptide 421.4H, Total Protein 7.4, Albumin 3.9 06/28/19 10:58: Glucometer 172H 06/28/19 15:34: Glucometer 154H 06/28/19 20:41: Glucometer 250H 06/29/19 02:15: Glucometer 67L 06/29/19 04:04: Glucometer 99 06/29/19 05:25: White Blood Count 8.3, Red Blood Count 3.23L, Hemoglobin 10.2L, Hematocrit 31L, Mean Corpuscular Volume 94, Mean Corpuscular Hemoglobin 32, Mean Corpuscular Hemoglobin Concent 33, Red Cell Distribution Width 14.3, Platelet Count 326, Mean Platelet Volume 8.2, Sodium Level 141, Potassium Level 3.8, Chloride Level 104, Carbon Dioxide Level 24, Anion Gap 13, Blood Urea Nitrogen 23H, Creatinine 1.04, Estimat Glomerular Filtration Rate > 60, BUN/Creatinine Ratio 22, Glucose Level 102, Calcium Level 9.5, Corrected Calcium 9.8, Magnesium Level 1.6, Total Bilirubin 1.1H, Aspartate Amino Transf (AST/SGOT) 30, Alanine Aminotransferase (ALT/SGPT) 33, Alkaline Phosphatase 74, Total Protein 7.1, Albumin 3.6 06/29/19 07:18: Glucometer 178H 06/29/19 11:17: Glucometer 253H 06/29/19 15:41: Glucometer 270H 06/29/19 20:41: Glucometer 261H 06/30/19 05:14: Glucometer 168H 06/30/19 11:20: Glucometer 215H 06/30/19 15:42: Glucometer 114H 06/30/19 20:19: Glucometer 196H 07/01/19 05:29: Glucometer 115H 07/01/19 12:24: Glucometer 207H 07/01/19 15:34: Glucometer 190H 07/01/19 20:16: Glucometer 180H 07/02/19 05:26: Glucometer 162H 07/02/19 11:23: Glucometer 206H 07/02/19 15:38: Glucometer 237H 07/02/19 20:24: Glucometer 208H 07/03/19 05:29: Glucometer 167H 07/03/19 05:50: White Blood Count 6.3, Red Blood Count 3.24L, Hemoglobin 10.2L, Hematocrit 31L, Mean Corpuscular Volume 94, Mean Corpuscular Hemoglobin 31, Mean Corpuscular Hemoglobin Concent 33, Red Cell Distribution Width 14.3, Platelet Count 295, Mean Platelet Volume 8.4, Neutrophils (%) (Auto) 59, Lymphocytes (%) (Auto) 25, Monocytes (%) (Auto) 12, Eosinophils (%) (Auto) 4, Basophils (%) (Auto) 0, Neutrophils # (Auto) 3.7, Lymphocytes # (Auto) 1.6, Monocytes # (Auto) 0.8, Eosinophils # (Auto) 0.2, Basophils # (Auto) 0.0, Sodium Level 140, Potassium Level 4.2, Chloride Level 105, Carbon Dioxide Level 23, Anion Gap 12, Blood Urea Nitrogen 19H, Creatinine 1.06, Estimat Glomerular Filtration Rate > 60, BUN/Creatinine Ratio 18, Glucose Level 155H, Calcium Level 9.5, Corrected Calcium 9.7, Total Bilirubin 0.9, Aspartate Amino Transf (AST/SGOT) 16, Alanine Aminotransferase (ALT/SGPT) 18, Alkaline Phosphatase 93, Total Protein 6.8, Albumin 3.7 07/03/19 11:10: Glucometer 282H 07/03/19 15:35: Glucometer 215H 07/03/19 20:22: Glucometer 191H 07/04/19 05:31: Glucometer 189H 07/04/19 10:54: Glucometer 167H 07/04/19 15:33: Glucometer 207H 07/04/19 20:49: Glucometer 211H 07/05/19 05:08: Glucometer 157H 07/05/19 10:56: Glucometer 221H Pending Labs Laboratory Tests 06/23/19 16:03: Glucometer 253 06/23/19 20:51: Glucometer 293 06/24/19 05:53: Glucometer 185 06/24/19 07:00: White Blood Count 4.5, Red Blood Count 2.64, Hemoglobin 8.4, Hematocrit 25, Mean Corpuscular Volume 95, Mean Corpuscular Hemoglobin 32, Mean Corpuscular Hemoglobin Concent 34, Red Cell Distribution Width 13.9, Platelet Count 132, Mean Platelet Volume 9.1, Neutrophils (%) (Auto) 56, Lymphocytes (%) (Auto) 27, Monocytes (%) (Auto) 12, Eosinophils (%) (Auto) 5, Basophils (%) (Auto) 0, Neutrophils # (Auto) 2.5, Lymphocytes # (Auto) 1.2, Monocytes # (Auto) 0.6, Eosinophils # (Auto) 0.2, Basophils # (Auto) 0.0, Sodium Level 142, Potassium Level 3.6, Chloride Level 106, Carbon Dioxide Level 26, Anion Gap 10, Blood Urea Nitrogen 22, Creatinine 1.06, Estimat Glomerular Filtration Rate > 60, BUN/Creatinine Ratio 21, Glucose Level 157, Calcium Level 8.1, Corrected Calcium 8.8, Total Bilirubin 1.1, Aspartate Amino Transf (AST/SGOT) 35, Alanine Aminotransferase (ALT/SGPT) 32, Alkaline Phosphatase 39, Total Protein 5.7, Albumin 3.1 06/24/19 11:38: Glucometer 192 06/24/19 15:46: Glucometer 170 06/24/19 20:26: Glucometer 210 06/25/19 05:19: Glucometer 196 06/25/19 11:28: Glucometer 201 06/25/19 16:17: Glucometer 192 06/25/19 20:30: Glucometer 211 06/26/19 05:44: Glucometer 119 06/26/19 05:45: White Blood Count 6.3, Red Blood Count 2.80, Hemoglobin 8.9, Hematocrit 27, Mean Corpuscular Volume 95, Mean Corpuscular Hemoglobin 32, Mean Corpuscular Hemoglobin Concent 34, Red Cell Distribution Width 13.8, Platelet Count 201, Mean Platelet Volume 8.7, Neutrophils (%) (Auto) 61, Lymphocytes (%) (Auto) 24, Monocytes (%) (Auto) 10, Eosinophils (%) (Auto) 5, Basophils (%) (Auto) 0, Neutrophils # (Auto) 3.8, Lymphocytes # (Auto) 1.5, Monocytes # (Auto) 0.7, Eosinophils # (Auto) 0.3, Basophils # (Auto) 0.0, Sodium Level 142, Potassium Level 3.5, Chloride Level 106, Carbon Dioxide Level 25, Anion Gap 11, Blood Urea Nitrogen 15, Creatinine 0.84, Estimat Glomerular Filtration Rate > 60, BUN/Creatinine Ratio 18, Glucose Level 114, Calcium Level 8.7, Corrected Calcium 9.3, Total Bilirubin 1.0, Aspartate Amino Transf (AST/SGOT) 28, Alanine Aminotransferase (ALT/SGPT) 34, Alkaline Phosphatase 58, Total Protein 5.9, Albumin 3.2 06/26/19 10:57: Glucometer 207 06/26/19 15:35: Glucometer 211 06/26/19 20:27: Glucometer 216 06/27/19 05:35: Glucometer 130 06/27/19 11:55: Glucometer 187 06/27/19 17:29: Glucometer 137 06/27/19 22:03: Glucometer 213 06/28/19 05:42: Glucometer 103 06/28/19 09:21: Glucometer 197 06/28/19 10:26: White Blood Count 9.4, Red Blood Count 3.45, Hemoglobin 11.0, Hematocrit 33, Mean Corpuscular Volume 95, Mean Corpuscular Hemoglobin 32, Mean Corpuscular Hemoglobin Concent 33, Red Cell Distribution Width 14.3, Platelet Count 347, Mean Platelet Volume 8.3, Neutrophils (%) (Auto) 69, Lymphocytes (%) (Auto) 17, Monocytes (%) (Auto) 10, Eosinophils (%) (Auto) 3, Basophils (%) (Auto) 0, Neutrophils # (Auto) 6.5, Lymphocytes # (Auto) 1.6, Monocytes # (Auto) 1.0, Eosinophils # (Auto) 0.3, Basophils # (Auto) 0.0, Sodium Level 139, Potassium Level 3.9, Chloride Level 101, Carbon Dioxide Level 22, Anion Gap 16, Blood Urea Nitrogen 20, Creatinine 1.26, Estimat Glomerular Filtration Rate 55, BUN/Crea tinine Ratio 16, Glucose Level 163, Calcium Level 9.9, Corrected Calcium 10.0, Iron Level 72, Total Bilirubin 1.3, Aspartate Amino Transf (AST/SGOT) 25, Alanine Aminotransferase (ALT/SGPT) 33, Alkaline Phosphatase 63, B-Type Natriuretic Peptide 421.4, Total Protein 7.4, Albumin 3.9 06/28/19 10:58: Glucometer 172 06/28/19 15:34: Glucometer 154 06/28/19 20:41: Glucometer 250 06/29/19 02:15: Glucometer 67 06/29/19 04:04: Glucometer 99 06/29/19 05:25: White Blood Count 8.3, Red Blood Count 3.23, Hemoglobin 10.2, Hematocrit 31, Mean Corpuscular Volume 94, Mean Corpuscular Hemoglobin 32, Mean Corpuscular Hemoglobin Concent 33, Red Cell Distribution Width 14.3, Platelet Count 326, Mean Platelet Volume 8.2, Sodium Level 141, Potassium Level 3.8, Chloride Level 104, Carbon Dioxide Level 24, Anion Gap 13, Blood Urea Nitrogen 23, Creatinine 1.04, Estimat Glomerular Filtration Rate > 60, BUN/Creatinine Ratio 22, Glucose Level 102, Calcium Level 9.5, Corrected Calcium 9.8, Magnesium Level 1.6, Total Bilirubin 1.1, Aspartate Amino Transf (AST/SGOT) 30, Alanine Aminotransferase (ALT/SGPT) 33, Alkaline Phosphatase 74, Total Protein 7.1, Albumin 3.6 06/29/19 07:18: Glucometer 178 06/29/19 11:17: Glucometer 253 06/29/19 15:41: Glucometer 270 06/29/19 20:41: Glucometer 261 06/30/19 05:14: Glucometer 168 06/30/19 11:20: Glucometer 215 06/30/19 15:42: Glucometer 114 06/30/19 20:19: Glucometer 196 07/01/19 05:29: Glucometer 115 07/01/19 12:24: Glucometer 207 07/01/19 15:34: Glucometer 190 07/01/19 20:16: Glucometer 180 07/02/19 05:26: Glucometer 162 07/02/19 11:23: Glucometer 206 07/02/19 15:38: Glucometer 237 07/02/19 20:24: Glucometer 208 07/03/19 05:29: Glucometer 167 07/03/19 05:50: White Blood Count 6.3, Red Blood Count 3.24, Hemoglobin 10.2, Hematocrit 31, Mean Corpuscular Volume 94, Mean Corpuscular Hemoglobin 31, Mean Corpuscular Hemoglobin Concent 33, Red Cell Distribution Width 14.3, Platelet Count 295, Mean Platelet Volume 8.4, Neutrophils (%) (Auto) 59, Lymphocytes (%) (Auto) 25, Monocytes (%) (Auto) 12, Eosinophils (%) (Auto) 4, Basophils (%) (Auto) 0, Neutrophils # (Auto) 3.7, Lymphocytes # (Auto) 1.6, Monocytes # (Auto) 0.8, Eosinophils # (Auto) 0.2, Basophils # (Auto) 0.0, Sodium Level 140, Potassium Level 4.2, Chloride Level 105, Carbon Dioxide Level 23, Anion Gap 12, Blood Urea Nitrogen 19, Creatinine 1.06, Estimat Glomerular Filtration Rate > 60, BUN/Creatinine Ratio 18, Glucose Level 155, Calcium Level 9.5, Corrected Calcium 9.7, Total Bilirubin 0.9, Aspartate Amino Transf (AST/SGOT) 16, Alanine Aminotransferase (ALT/SGPT) 18, Alkaline Phosphatase 93, Total Protein 6.8, Albumin 3.7 07/03/19 11:10: Glucometer 282 07/03/19 15:35: Glucometer 215 07/03/19 20:22: Glucometer 191 07/04/19 05:31: Glucometer 189 07/04/19 10:54: Glucometer 167 07/04/19 15:33: Glucometer 207 07/04/19 20:49: Glucometer 211 07/05/19 05:08: Glucometer 157 07/05/19 10:56: Glucometer 221 Discharge Home Medications: Active Scripts Active Hydrocodone/Acetaminophen 5/325mg Tablet (Acetaminophen/Hydrocodone Bitart) 1 Tab Tab 1 Tab PO Q4H PRN Albuterol Sulfate 2.5 Mg/3 Ml Vial.neb 2.5 Mg INH TID Floranex Granules Packet (L. Acidophilus/Bulgaricus) 1 Each Gran.pack 1 Gm PO ACHS Pantoprazole Sodium 40 Mg Tablet.dr 40 Mg PO DAILY Fluticasone Propionate 16 Gm Farrell.susp 2 Farrell NS DAILY Montelukast Sodium 10 Mg Tablet 10 Mg PO HS Loratadine 10 Mg Tablet 10 Mg PO DAILY Reported Glucose (Dextrose) 4 Gm Tab.chew 4 Gm PO UD PRN Lantus Solostar (Insulin Glargine,Hum.rec.anlog) 100 Unit/1 Ml Insuln.pen 15-20 Units SC HS Lipitor (Atorvastatin Calcium) 10 Mg Tablet 10 Mg PO DAILY Aspirin EC (Aspirin) 81 Mg Tablet.dr 81 Mg PO DAILY Galantamine HBr 8 Mg Tablet 4 Mg PO BID TAKES 1/2 (8MG) TABLET Entresto 24 mg-26 mg Tablet (Sacubitril/Valsartan) 1 Each Tablet 1 Tab PO BID Advair 250-50 Diskus (Fluticasone/Salmeterol) 1 Each Blst.w.dev 1 Puff IH BID Sertraline HCl 100 Mg Tablet 100 Mg PO DAILY Carvedilol 3.125 Mg Tablet 3.125 Mg PO BID Dronabinol 2.5 Mg Capsule 2.5 Mg PO BID Ritalin (Methylphenidate HCl) 5 Mg Tablet 5 Mg PO BID Humalog Kwikpen (Insulin Lispro) 100 Unit/1 Ml Insuln.pen 15-25 Units SQ AC Instructions to patient/family Please see electronic discharge instructions given to patient. Diagnosis/Problems Diagnosis/Problems (1) Fracture of femur, intertrochanteric, left, closed Status: Acute Qualifiers: (2) Non-ST elevation myocardial infarction (NSTEMI) Status: Acute (3) CAD (coronary artery disease) Status: Chronic Qualifiers: Qualified Codes: I25.10 - Atherosclerotic heart disease of cherokee coronary artery without angina pectoris (4) ALL (acute lymphocytic leukemia) Status: Chronic (5) Neuropathy Status: Chronic (6) Renal insufficiency Status: Chronic (7) Hypertension Status: Chronic Qualifiers: Qualified Codes: I10 - Essential (primary) hypertension (8) Sciatic neuropathy Status: Chronic (9) Ischemic cardiomyopathy Status: Chronic (10) Postoperative pain Status: Acute (11) Postoperative anemia Status: Acute (12) History of Clostridium difficile infection Status: Chronic (13) COPD (chronic obstructive pulmonary disease) Status: Chronic Qualifiers: Qualified Codes: J44.9 - Chronic obstructive pulmonary disease, unspecified (14) Acute delirium Status: Acute (15) Sepsis Status: Resolved Resolution Date/Time: 06/24/19 @ 07:04 (16) Orthostasis Status: Chronic (17) Flash pulmonary edema Status: Resolved Resolution Date/Time: 06/24/19 @ 07:04 (18) Troponin level elevated Status: Resolved Resolution Date/Time: 06/24/19 @ 07:04 (19) COPD with acute exacerbation Status: Resolved Resolution Date/Time: 06/24/19 @ 07:04 (20) Elevated brain natriuretic peptide (BNP) level Status: Resolved Resolution Date/Time: 06/24/19 @ 07:04 (21) Transfusion of blood during current hospitalization Status: Resolved Resolution Date/Time: 06/24/19 @ 07:04 (22) Elevated lactic acid level Status: Resolved Resolution Date/Time: 06/24/19 @ 07:04 (23) Fever Status: Resolved Resolution Date/Time: 10/18/18 @ 12:40 (24) Shortness of breath Status: Resolved Resolution Date/Time: 10/18/18 @ 12:40 (25) Cough Status: Acute (26) Pneumonia Status: Acute (27) Non-ST elevation myocardial infarction (NSTEMI) Status: Acute (28) Dehydration, moderate Status: Resolved Resolution Date/Time: 10/18/18 @ 12:41 (29) Severe anemia Status: Acute Clinical Quality Measures DVT/VTE Risk/Contraindication: Risk Factor Score Per Nursin RFS Level Per Nursing on Admit: 4+=Very High ADALBERTO ARENAS DO Jul 05, 2019 08:59
--- NOTE | 2019-07-05 09:30 | NUR ---
DR. ARENAS REQUESTED DR. YOUNG SEE PATIENT PRIOR TO DISCHARGE, BUT HE IS OUT OF TOWN UNTIL WEDNESDAY. WILL F/U IN OFFICE ON WEDNESDAY.
--- NOTE | 2019-07-05 10:06 | Therapy Team Discharge Summary ---
Therapy Discharge Summary Discharge Recommendations Date of Discharge 07-05-19 Therapy D/C Recommendations: Home w/ Family Support, Occupational Therapy Home Care Occupational Therapy Pt. has been seen by occupational therapy to increase overall strength and independence. Pt. has met most goals with bathing/dressing using AE as needed. Pt. has been educated on walker safety, kitchen safety, and bathroom safety. Verbalizes understanding and has return demonstrated. Pt. is discharging home with family support. Recommend tub transfer bench, walker basket, and hip kit. Follow up home OT for environmental and safety evaluation would also be beneficial. Decreased Activ Tolerance PT Pattern Scratcher Goals Retirement Goals PT Pattern Scratcher Goals Time Frame: Jul 21, 2019 Transfers (B,C,W/C) (FIM): 6 Roll Left to Right (QC): 6 Sit to Lying (QC): 6 Lying-Sitting on Side/Bed(QC): 6 Sit to Stand (QC): 6 Chair/Jqi-pp-Lnwuo Xfer(QC): 6 Car Transfer (QC): 6 Does the Patient Walk: Yes Gait (FIM): 6 Gait distance (FIM): 3=150 ft Distance: 250' Walk 10 feet (QC): 6 Walk 10ft-Uneven Surface(QC): 6 Walk 50ft with 2 Turns (QC): 6 Walk 150 ft (QC): 6 Gait Level of Assist: 6 Gait Assistive Device: FWW Stairs (FIM): 6 # of Steps: 12 1 Step (curb) (QC): 6 4 Steps (QC): 6 12 Steps (QC): 6 Stairs Level Of Assist: 6 Picking up an Object (QC): 6 OT Pattern Scratcher Goals Pattern Scratcher Goals Time Frame: Jul 21, 2019 Eating (FIM): 6 (met) Eating (QC): 6 (met) Oral Hygiene (QC): 6 (met) Grooming(FIM): 6 (met) Bathing(FIM): 5 (met) Shower/Bathe Self (QC): 5 (not met) Upper Body Dressing(FIM): 6 (met) Upper Body Dressing (QC): 6 (met) Lower Body Dressing(FIM): 6 (met) Lower Body Dressing (QC): 6 (met) On/Off Footwear (QC): 6 (met) Toileting(FIM): 6 (met) Toileting Hygiene (QC): 6 (met) Toilet/Commode Transfer(FIM): 6 (met) Toilet/Commode Transfer (QC): 6 (met) Shower Transfer(FIM): 5 (met) Additional Goals: 1-Demonstrate ADL Tasks, 2-Verbalize Understanding, 3- ImproveStrength/Tessie 1=Demonstrate adherence to instructed precautions during ADL tasks. 2=Patient will verbalize/demonstrate understanding of assistive devices/modifications for ADL. 3=Patient will improve strength/tolerance for activity to enable patient to perform ADL's. Speech Pattern Scratcher Goals Pattern Scratcher Goals The patient will improve cognitive function in order to return to his prior living situation safely. SO MALONE OT Jul 05, 2019 10:06
--- NOTE | 2019-07-05 10:54 | NUR ---
Met with patient and daughter to further discuss discharge planning. They requested patient receive outpatient therapy services provided by [facility]. Referral made to [facility], initial appointment scheduled for tomorrow, , July 06 at 9:00am. Patient does not express any concern in regards to today's discharge, home.
--- NOTE | 2019-07-05 11:15 | NUR ---
ELISSA, [facility], HERE TO ASSIST PATIENT IN PUTTING ON LIFE VEST.
--- NOTE | 2019-07-05 11:44 | Therapy Team Discharge Summary ---
Therapy Discharge Summary Discharge Recommendations Date of Discharge Therapy D/C Recommendations: Home w/ Family Support, Occupational Therapy Home Care Physical Therapy Patient came to rehab following a left femur fracture. Upon evaluation patient performed bed mobility and transfers with mod assist, car transfer mod assist, ambulated 25' with a rolling walker with CGA/John (including 10' over an uneven surface), and went up and down 1 steps using a rolling walker with mod assist. Patient has been performing bed mobility and transfer training, balance and endurance training, functional strengthening, stair training, gait training, and education. Patient has made fair progress and has met all of his jail goals except for stairs and distance of ambulation. Now, patient performs bed mobility with mod I, supine <-> sit with mod I, sit <-> stand with mod I, transfers with mod I, car transfer mod I, ambulates 200' with a rolling walker with mod I (including 50' with at least 2 turns of 90 degrees and 10' over an uneven surface), and can go up and down 4 steps using 2 handrails with mod I. Patient is discharging from this facility today and will be discharged from PT at this time. Occupational Therapy Decreased Activ Tolerance PT Detention Goals Branch Service Specialist Goals PT Branch Service Specialist Goals Time Frame: Jul 21, 2019 Transfers (B,C,W/C) (FIM): 6 Roll Left to Right (QC): 6 Sit to Lying (QC): 6 Lying-Sitting on Side/Bed(QC): 6 Sit to Stand (QC): 6 Chair/Emx-if-Ojonw Xfer(QC): 6 Car Transfer (QC): 6 Does the Patient Walk: Yes Gait (FIM): 6 Gait distance (FIM): 3=150 ft Distance: 250' Walk 10 feet (QC): 6 Walk 10ft-Uneven Surface(QC): 6 Walk 50ft with 2 Turns (QC): 6 Walk 150 ft (QC): 6 Gait Level of Assist: 6 Gait Assistive Device: FWW Stairs (FIM): 6 # of Steps: 12 1 Step (curb) (QC): 6 4 Steps (QC): 6 12 Steps (QC): 6 Stairs Level Of Assist: 6 Picking up an Object (QC): 6 OT Branch Service Specialist Goals Detention Goals Time Frame: Jul 21, 2019 Eating (FIM): 6 (met) Eating (QC): 6 (met) Oral Hygiene (QC): 6 (met) Grooming(FIM): 6 (met) Bathing(FIM): 5 (met) Shower/Bathe Self (QC): 5 (not met) Upper Body Dressing(FIM): 6 (met) Upper Body Dressing (QC): 6 (met) Lower Body Dressing(FIM): 6 (met) Lower Body Dressing (QC): 6 (met) On/Off Footwear (QC): 6 (met) Toileting(FIM): 6 (met) Toileting Hygiene (QC): 6 (met) Toilet/Commode Transfer(FIM): 6 (met) Toilet/Commode Transfer (QC): 6 (met) Shower Transfer(FIM): 5 (met) Additional Goals: 1-Demonstrate ADL Tasks, 2-Verbalize Understanding, 3- ImproveStrength/Tessie 1=Demonstrate adherence to instructed precautions during ADL tasks. 2=Patient will verbalize/demonstrate understanding of assistive devices/modifications for ADL. 3=Patient will improve strength/tolerance for activity to enable patient to perform ADL's. Speech Branch Service Specialist Goals Detention Goals The patient will improve cognitive function in order to return to his prior living situation safely. EMPERATRIZ VERGARA PT Jul 05, 2019 11:44
[2019-07-05 13:38] VITALS: BP 125/70
--- NOTE | 2019-07-05 15:01 | Therapy Team Discharge Summary ---
Therapy Discharge Summary Discharge Recommendations Date of Discharge Jul 05, 2019 at 11:30 Therapy D/C Recommendations: Home w/ Family Support, Occupational Therapy Home Care Occupational Therapy Decreased Activ Tolerance Speech-Language Pathology The patient was admitted to the ARU s/p fractured hip. The patient was given the SLUMS with a score in the moderate cognitive deficit level of function. The patient received skilled cognitive therapy and was given the SLUMS again on 07/04/19 with a score in the normal range of function. Patient was discharged to his home today with a discharge from skilled ST as well. PT Nursing Home Goals Nursing Home Goals PT Certified Hearing Instrument Dispenser Goals Time Frame: Jul 21, 2019 Transfers (B,C,W/C) (FIM): 6 Roll Left to Right (QC): 6 Sit to Lying (QC): 6 Lying-Sitting on Side/Bed(QC): 6 Sit to Stand (QC): 6 Chair/Fur-vy-Bqbhy Xfer(QC): 6 Car Transfer (QC): 6 Does the Patient Walk: Yes Gait (FIM): 6 Gait distance (FIM): 3=150 ft Distance: 250' Walk 10 feet (QC): 6 Walk 10ft-Uneven Surface(QC): 6 Walk 50ft with 2 Turns (QC): 6 Walk 150 ft (QC): 6 Gait Level of Assist: 6 Gait Assistive Device: FWW Stairs (FIM): 6 # of Steps: 12 1 Step (curb) (QC): 6 4 Steps (QC): 6 12 Steps (QC): 6 Stairs Level Of Assist: 6 Picking up an Object (QC): 6 OT Nursing Home Goals Certified Hearing Instrument Dispenser Goals Time Frame: Jul 21, 2019 Eating (FIM): 6 (met) Eating (QC): 6 (met) Oral Hygiene (QC): 6 (met) Grooming(FIM): 6 (met) Bathing(FIM): 5 (met) Shower/Bathe Self (QC): 5 (not met) Upper Body Dressing(FIM): 6 (met) Upper Body Dressing (QC): 6 (met) Lower Body Dressing(FIM): 6 (met) Lower Body Dressing (QC): 6 (met) On/Off Footwear (QC): 6 (met) Toileting(FIM): 6 (met) Toileting Hygiene (QC): 6 (met) Toilet/Commode Transfer(FIM): 6 (met) Toilet/Commode Transfer (QC): 6 (met) Shower Transfer(FIM): 5 (met) Additional Goals: 1-Demonstrate ADL Tasks, 2-Verbalize Understanding, 3- ImproveStrength/Tessie 1=Demonstrate adherence to instructed precautions during ADL tasks. 2=Patient will verbalize/demonstrate understanding of assistive devices/modifications for ADL. 3=Patient will improve strength/tolerance for activity to enable patient to perform ADL's. Speech Certified Hearing Instrument Dispenser Goals Certified Hearing Instrument Dispenser Goals The patient will improve cognitive function in order to return to his prior living situation safely. Met CARMEN SCOTT Jul 05, 2019 15:01
== END 2019-07-05 11:30 | disposition home or self-care (01) | DRG 559 ==
PROVIDERS: ADMIT Internal Medicine; ATTEND Internal Medicine
DX: S72.145D Nondisplaced intertrochanteric fracture of left femur, subsequent encounter for closed fracture with routine healing (principal); E11.42 Type 2 diabetes mellitus with diabetic polyneuropathy; C91.01 Acute lymphoblastic leukemia, in remission; I50.23 Acute on chronic systolic (congestive) heart failure; A41.9 Sepsis, unspecified organism; I25.5 Ischemic cardiomyopathy; J40 Bronchitis, not specified as acute or chronic; J01.90 Acute sinusitis, unspecified; I12.9 Hypertensive chronic kidney disease with stage 1 through stage 4 chronic kidney disease, or unspecified chronic kidney disease; N18.9 Chronic kidney disease, unspecified; I25.10 Atherosclerotic heart disease of native coronary artery without angina pectoris; J43.9 Emphysema, unspecified; G57.02 Lesion of sciatic nerve, left lower limb; R41.0 Disorientation, unspecified; I48.91 Unspecified atrial fibrillation; E78.5 Hyperlipidemia, unspecified; K21.9 Gastro-esophageal reflux disease without esophagitis; M19.91 Primary osteoarthritis, unspecified site; F03.90 Unspecified dementia, unspecified severity, without behavioral disturbance, psychotic disturbance, mood disturbance, and anxiety; I65.23 Occlusion and stenosis of bilateral carotid arteries; D64.9 Anemia, unspecified; K27.9 Peptic ulcer, site unspecified, unspecified as acute or chronic, without hemorrhage or perforation; R45.3 Demoralization and apathy; I25.2 Old myocardial infarction; Z95.1 Presence of aortocoronary bypass graft; Z79.4 Long term (current) use of insulin; Z79.82 Long term (current) use of aspirin; Z87.891 Personal history of nicotine dependence; Z86.718 Personal history of other venous thrombosis and embolism; W10.8XXA Fall (on) (from) other stairs and steps, initial encounter
CPT/HCPCS: 36415; 80053; 82962; 83540; 83735; 83880; 85025; 85027; 94640; 94760

== ENCOUNTER → 2019-07-10 | Outpatient (CLI) | payer MEDICARE ==
[~2019-07-10] MED LIST changes: +ACHD5005 PO
--- NOTE | 2019-07-10 16:31 | Diagnostic Imaging Report ---
INDICATION: Left hip fracture, status post surgery. TIME OF EXAM: 11:24 a.m. Correlation is made with prior left hip radiographs from 06/18/2019. FINDINGS: Since prior study, patient has undergone left hip surgery. Intramedullary jeffrey and compression screw transfix the left hip. There is some residual lucency in the region of the greater trochanter. Femoroacetabular alignment is normal. Joint space is fairly well maintained. IMPRESSION: Postsurgical changes to the left hip, as described. Dictated by: Dictated on workstation # [id number]
== END ==
LOC: ORTHO 11:06
PROVIDERS: ATTEND Orthopaedic Surgery
DX: S72.145D Nondisplaced intertrochanteric fracture of left femur, subsequent encounter for closed fracture with routine healing (principal); W10.8XXD Fall (on) (from) other stairs and steps, subsequent encounter
CPT/HCPCS: 73502

== ENCOUNTER → 2019-07-19 | Outpatient (CLI) | payer MEDICARE ==
[2019-07-19 10:12] LABS: BASOPHILS % (AUTO) 0 % (0-10); EOSINOPHILS # (AUTO) 0.1 10^3/uL (0.0-0.3); EOSINOPHILS % (AUTO) 3 % (0-10); HEMATOCRIT 33 % (40-54); HEMOGLOBIN 11.1 G/DL (13.3-17.7); LYMPHOCYTES # (AUTO) 1.5 X 10^3 (1.0-4.0); LYMPHOCYTES % (AUTO) 28 % (12-44); MEAN CORPUSCULAR HEMOGLOBIN 31 PG (25-34); MEAN CORPUSCULAR HGB CONC 34 G/DL (32-36); MEAN CORPUSCULAR VOLUME 92 FL (80-99); MEAN PLATELET VOLUME 9.4 FL (7.4-10.4); MONOCYTES # (AUTO) 0.6 X 10^3 (0.0-1.0); MONOCYTES % (AUTO) 11 % (0-12); NEUTROPHILS # (AUTO) 3.2 X 10^3 (1.8-7.8); NEUTROPHILS % (AUTO) 58 % (42-75); PLATELET COUNT 164 10^3/uL (130-400); RED CELL DISTRIBUTION WIDTH 14.3 % (10.0-14.5); WHITE BLOOD COUNT 5.4 10^3/uL (4.3-11.0)
[2019-07-19 10:28] LABS: ALANINE AMINOTRANSFERASE 12 U/L (0-55); ALKALINE PHOSPHATASE 140 U/L (40-136); BILIRUBIN,TOTAL 0.7 MG/DL (0.1-1.0); BUN/CREATININE RATIO 17; CALCIUM 9.1 MG/DL (8.5-10.1); CARBON DIOXIDE 23 MMOL/L (21-32); CHLORIDE 104 MMOL/L (98-107); CREATININE SERUM 1.11 MG/DL (0.60-1.30); GFR ESTIMATED > 60; GLUCOSE 232 MG/DL (70-105); POTASSIUM 3.7 MMOL/L (3.6-5.0); SODIUM 138 MMOL/L (135-145); TOTAL PROTEIN 7.3 GM/DL (6.4-8.2)
== END ==
LOC: LAB 09:27
PROVIDERS: ATTEND Internal Medicine
DX: D64.9 Anemia, unspecified (principal); E11.9 Type 2 diabetes mellitus without complications; I11.0 Hypertensive heart disease with heart failure; I50.9 Heart failure, unspecified
CPT/HCPCS: 80053; 82728; 83540

== ENCOUNTER → 2019-08-01 | Outpatient (CLI) | payer MEDICARE ==
--- NOTE | 2019-08-01 15:16 | Diagnostic Imaging Report ---
INDICATION: Intertrochanteric fracture, left. TIME OF EXAM: 2:16 p.m. COMPARISON: Correlation is made with prior radiographs from 07/10/2019. FINDINGS: Intramedullary jeffrey and compression screw transfix left hip. Femoroacetabular alignment is maintained. Overall alignment appears to be stable. No new fracture is seen. Fracture line through the greater trochanter is blurring consistent with some healing. IMPRESSION: Satisfactory postop left hip. Dictated by: Dictated on workstation # [id number]
== END ==
LOC: ORTHO 13:50
PROVIDERS: ATTEND Orthopaedic Surgery
DX: S72.142A Displaced intertrochanteric fracture of left femur, initial encounter for closed fracture (principal); Z98.890 Other specified postprocedural states
CPT/HCPCS: 73502

== ENCOUNTER 2019-08-29 14:37 | Outpatient (RCR) | payer MEDICARE ==
[2019-07-19 10:05] LABS: BASOPHILS % (AUTO) 0 % (0-10); EOSINOPHILS # (AUTO) 0.2 10^3/uL (0.0-0.3); EOSINOPHILS % (AUTO) 3 % (0-10); HEMATOCRIT 33 % (40-54); HEMOGLOBIN 11.2 G/DL (13.3-17.7); LYMPHOCYTES # (AUTO) 1.6 X 10^3 (1.0-4.0); LYMPHOCYTES % (AUTO) 30 % (12-44); MEAN CORPUSCULAR HEMOGLOBIN 32 PG (25-34); MEAN CORPUSCULAR HGB CONC 34 G/DL (32-36); MEAN CORPUSCULAR VOLUME 92 FL (80-99); MEAN PLATELET VOLUME 9.1 FL (7.4-10.4); MONOCYTES # (AUTO) 0.6 X 10^3 (0.0-1.0); MONOCYTES % (AUTO) 12 % (0-12); NEUTROPHILS % (AUTO) 56 % (42-75); PLATELET COUNT 173 10^3/uL (130-400); RED CELL DISTRIBUTION WIDTH 14.3 % (10.0-14.5); WHITE BLOOD COUNT 5.4 10^3/uL (4.3-11.0)
[2019-07-19 10:30] LABS: ALANINE AMINOTRANSFERASE 13 U/L (0-55); ALKALINE PHOSPHATASE 138 U/L (40-136); BILIRUBIN,TOTAL 0.7 MG/DL (0.1-1.0); BUN/CREATININE RATIO 17; CALCIUM 9.1 MG/DL (8.5-10.1); CARBON DIOXIDE 24 MMOL/L (21-32); CHLORIDE 105 MMOL/L (98-107); GFR ESTIMATED > 60; GLUCOSE 234 MG/DL (70-105); POTASSIUM 3.7 MMOL/L (3.6-5.0); SODIUM 138 MMOL/L (135-145); TOTAL PROTEIN 7.4 GM/DL (6.4-8.2)
[2019-08-29 15:01] LABS: BASOPHILS % (AUTO) 0 % (0-10); EOSINOPHILS # (AUTO) 0.1 10^3/uL (0.0-0.3); EOSINOPHILS % (AUTO) 2 % (0-10); HEMATOCRIT 33 % (40-54); HEMOGLOBIN 11.4 G/DL (13.3-17.7); LYMPHOCYTES # (AUTO) 1.9 X 10^3 (1.0-4.0); LYMPHOCYTES % (AUTO) 32 % (12-44); MEAN CORPUSCULAR HEMOGLOBIN 32 PG (25-34); MEAN CORPUSCULAR HGB CONC 34 G/DL (32-36); MEAN CORPUSCULAR VOLUME 92 FL (80-99); MEAN PLATELET VOLUME 8.6 FL (7.4-10.4); MONOCYTES # (AUTO) 0.5 X 10^3 (0.0-1.0); MONOCYTES % (AUTO) 9 % (0-12); NEUTROPHILS # (AUTO) 3.5 X 10^3 (1.8-7.8); NEUTROPHILS % (AUTO) 58 % (42-75); PLATELET COUNT 195 10^3/uL (130-400); RED CELL DISTRIBUTION WIDTH 14.2 % (10.0-14.5); WHITE BLOOD COUNT 6.1 10^3/uL (4.3-11.0)
== END 2019-09-05 | disposition home or self-care (01) ==
LOC: ONC 14:37
PROVIDERS: ATTEND Internal Medicine Hematology & Oncology
DX: C91.00 Acute lymphoblastic leukemia not having achieved remission (principal); D50.9 Iron deficiency anemia, unspecified; I25.10 Atherosclerotic heart disease of native coronary artery without angina pectoris; I10 Essential (primary) hypertension; E11.43 Type 2 diabetes mellitus with diabetic autonomic (poly)neuropathy; E78.5 Hyperlipidemia, unspecified; Z79.4 Long term (current) use of insulin; Z79.899 Other long term (current) drug therapy
CPT/HCPCS: 36591; 80053; 83615; 85025; 96523

== ENCOUNTER → 2019-08-29 | Outpatient (CLI) | payer MEDICARE ==
--- NOTE | 2019-08-29 16:17 | Diagnostic Imaging Report ---
INDICATION: Postop intertrochanteric fracture of left hip. AP and lateral views of the left femur are obtained. Hardware is seen in the femoral neck and shaft with anatomic alignment of intertrochanteric fracture of left proximal femur. There are vascular calcifications noted. There is no unexpected foreign body. IMPRESSION: Status post ORIF of intertrochanteric fracture of left proximal femur, with anatomic alignment with hardware in place. There is no new abnormality. Dictated by: Dictated on workstation # [id number]
== END ==
LOC: ORTHO 13:37
PROVIDERS: ATTEND Orthopaedic Surgery
DX: S72.142A Displaced intertrochanteric fracture of left femur, initial encounter for closed fracture (principal); Z98.890 Other specified postprocedural states
CPT/HCPCS: 73552

== ENCOUNTER → 2019-09-15 | Outpatient (CLI) | payer MEDICARE ==
[2019-09-15 08:52] LABS: HEMOGLOBIN 11.3 G/DL (13.3-17.7); MEAN PLATELET VOLUME 9.3 FL (7.4-10.4); RED CELL DISTRIBUTION WIDTH 13.7 % (10.0-14.5); WHITE BLOOD COUNT 5.8 10^3/uL (4.3-11.0)
[2019-09-15 09:17] LABS: ALANINE AMINOTRANSFERASE 14 U/L (0-55); ALBUMIN 3.9 GM/DL (3.2-4.5); ALKALINE PHOSPHATASE 114 U/L (40-136); BILIRUBIN,TOTAL 0.6 MG/DL (0.1-1.0); BUN/CREATININE RATIO 17; CALCIUM 8.2 MG/DL (8.5-10.1); CARBON DIOXIDE 22 MMOL/L (21-32); CHLORIDE 103 MMOL/L (98-107); CREATININE SERUM 1.09 MG/DL (0.60-1.30); GFR ESTIMATED > 60; GLUCOSE 196 MG/DL (70-105); POTASSIUM 4.1 MMOL/L (3.6-5.0); SODIUM 137 MMOL/L (135-145); TOTAL PROTEIN 6.9 GM/DL (6.4-8.2)
== END ==
LOC: LAB 08:34
PROVIDERS: ATTEND Internal Medicine
DX: E86.0 Dehydration (principal); R50.9 Fever, unspecified; R05 Cough
CPT/HCPCS: 36415; 80053; 85027; 86738; 87804

== ENCOUNTER → 2019-10-04 | Outpatient (RCR) | payer MEDICARE | END | disposition home or self-care (01) | PROVIDERS: ATTEND Internal Medicine | DX: S72.145D Nondisplaced intertrochanteric fracture of left femur, subsequent encounter for closed fracture with routine healing (principal); W10.8XXD Fall (on) (from) other stairs and steps, subsequent encounter ==

== ENCOUNTER 2019-11-03 06:14 | Outpatient (RCR) | payer MEDICARE ==
[~2019-11-03 06:14] MED LIST changes: +ENOXAPARIN 40 MG/0.4 ML (LOVENOX) SYR SC SCH; +LACTATED RINGERS 1,000 ML IV PRN; +OMEP-280 PO; -OMEP20CA13 PO; +OMEP40CA27 PO; -OMEP40CA36 PO; -SACU1TAB PO; +SACU1TAB2 PO; +ceFAZolin 2 GM IV Premixed 50 ML IV SCH; +ceFAZolin 2 GM/50 ML NS 50 ML IV ONE
== END 2019-11-05 | disposition home or self-care (01) ==
LOC: CR3 06:14
PROVIDERS: ATTEND Internal Medicine
DX: Z29.8 Encounter for other specified prophylactic measures (principal)

== ENCOUNTER → 2019-12-06 | Outpatient (RCR) | payer MEDICARE ==
[~2019-12-06] MED LIST changes: -ENOXAPARIN 40 MG/0.4 ML (LOVENOX) SYR SC SCH; -LACTATED RINGERS 1,000 ML IV PRN; -ceFAZolin 2 GM IV Premixed 50 ML IV SCH; -ceFAZolin 2 GM/50 ML NS 50 ML IV ONE
== END | disposition home or self-care (01) ==
LOC: CR3 11-06 06:00
PROVIDERS: ATTEND Internal Medicine
DX: Z29.8 Encounter for other specified prophylactic measures (principal)

== ENCOUNTER 2019-12-25 13:49 | Outpatient (RCR) | payer MEDICARE ==
[2019-10-02 11:43] LABS: BASOPHILS % (AUTO) 0 % (0-10); EOSINOPHILS % (AUTO) 0 % (0-10); HEMATOCRIT 35 % (40-54); LYMPHOCYTES # (AUTO) 1.5 X 10^3 (1.0-4.0); LYMPHOCYTES % (AUTO) 18 % (12-44); MEAN CORPUSCULAR HEMOGLOBIN 32 PG (25-34); MEAN CORPUSCULAR HGB CONC 34 G/DL (32-36); MEAN CORPUSCULAR VOLUME 92 FL (80-99); MEAN PLATELET VOLUME 9.6 FL (7.4-10.4); MONOCYTES # (AUTO) 0.4 X 10^3 (0.0-1.0); MONOCYTES % (AUTO) 4 % (0-12); NEUTROPHILS # (AUTO) 6.3 X 10^3 (1.8-7.8); NEUTROPHILS % (AUTO) 78 % (42-75); PLATELET COUNT 179 10^3/uL (130-400); RED CELL DISTRIBUTION WIDTH 14.1 % (10.0-14.5); WHITE BLOOD COUNT 8.1 10^3/uL (4.3-11.0)
[2019-10-02 12:04] LABS: ALBUMIN 3.8 GM/DL (3.2-4.5); BILIRUBIN,TOTAL 0.7 MG/DL (0.1-1.0); CALCIUM 8.7 MG/DL (8.5-10.1); CREATININE SERUM 1.21 MG/DL (0.60-1.30); POTASSIUM 3.9 MMOL/L (3.6-5.0); TOTAL PROTEIN 6.5 GM/DL (6.4-8.2)
[2019-11-13 15:21] LABS: BASOPHILS % (AUTO) 0 % (0-10); EOSINOPHILS # (AUTO) 0.2 10^3/uL (0.0-0.3); EOSINOPHILS % (AUTO) 4 % (0-10); HEMATOCRIT 35 % (40-54); HEMOGLOBIN 11.9 G/DL (13.3-17.7); LYMPHOCYTES # (AUTO) 1.9 X 10^3 (1.0-4.0); LYMPHOCYTES % (AUTO) 31 % (12-44); MEAN CORPUSCULAR HEMOGLOBIN 32 PG (25-34); MEAN CORPUSCULAR HGB CONC 34 G/DL (32-36); MEAN CORPUSCULAR VOLUME 92 FL (80-99); MEAN PLATELET VOLUME 9.1 FL (7.4-10.4); MONOCYTES # (AUTO) 0.6 X 10^3 (0.0-1.0); MONOCYTES % (AUTO) 10 % (0-12); NEUTROPHILS # (AUTO) 3.3 X 10^3 (1.8-7.8); NEUTROPHILS % (AUTO) 54 % (42-75); PLATELET COUNT 156 10^3/uL (130-400); RED CELL DISTRIBUTION WIDTH 13.6 % (10.0-14.5)
[~2019-12-25 13:49] MED LIST changes: -GALA8TAB PO; +GALA8TAB4 PO; -MAGN800O PO; +MOM10U PO; +MONT10TA26 PO; -OMEP-280 PO; +OMEP20CA18 PO
[2019-12-25 14:11] LABS: BASOPHILS % (AUTO) 0 % (0-10); EOSINOPHILS # (AUTO) 0.2 10^3/uL (0.0-0.3); EOSINOPHILS % (AUTO) 4 % (0-10); HEMATOCRIT 34 % (40-54); HEMOGLOBIN 11.9 G/DL (13.3-17.7); LYMPHOCYTES # (AUTO) 1.8 X 10^3 (1.0-4.0); LYMPHOCYTES % (AUTO) 34 % (12-44); MEAN CORPUSCULAR HEMOGLOBIN 32 PG (25-34); MEAN CORPUSCULAR HGB CONC 35 G/DL (32-36); MEAN CORPUSCULAR VOLUME 92 FL (80-99); MEAN PLATELET VOLUME 9.1 FL (7.4-10.4); MONOCYTES # (AUTO) 0.4 X 10^3 (0.0-1.0); MONOCYTES % (AUTO) 8 % (0-12); NEUTROPHILS # (AUTO) 2.8 X 10^3 (1.8-7.8); NEUTROPHILS % (AUTO) 53 % (42-75); PLATELET COUNT 154 10^3/uL (130-400); RED CELL DISTRIBUTION WIDTH 13.2 % (10.0-14.5); WHITE BLOOD COUNT 5.2 10^3/uL (4.3-11.0)
[2019-12-25 14:29] LABS: ALBUMIN 3.9 GM/DL (3.2-4.5); BILIRUBIN,TOTAL 0.7 MG/DL (0.1-1.0); CALCIUM 8.8 MG/DL (8.5-10.1); CREATININE SERUM 1.34 MG/DL (0.60-1.30); POTASSIUM 4.3 MMOL/L (3.6-5.0); TOTAL PROTEIN 6.6 GM/DL (6.4-8.2)
== END 2019-12-31 | disposition home or self-care (01) ==
LOC: ONC 13:49
PROVIDERS: ATTEND Internal Medicine Hematology & Oncology
DX: C91.00 Acute lymphoblastic leukemia not having achieved remission (principal); D50.9 Iron deficiency anemia, unspecified; I25.10 Atherosclerotic heart disease of native coronary artery without angina pectoris; I10 Essential (primary) hypertension; E11.43 Type 2 diabetes mellitus with diabetic autonomic (poly)neuropathy; E78.5 Hyperlipidemia, unspecified; S72.002D Fracture of unspecified part of neck of left femur, subsequent encounter for closed fracture with routine healing; J44.9 Chronic obstructive pulmonary disease, unspecified; Z79.4 Long term (current) use of insulin; Z79.899 Other long term (current) drug therapy; Z92.21 Personal history of antineoplastic chemotherapy
CPT/HCPCS: 36591; 80053; 83615; 85025; 99213

== ENCOUNTER 2020-01-01 06:09 | Outpatient (RCR) | payer MEDICARE | END 2020-01-07 | disposition home or self-care (01) | LOC: CR3 06:09 | PROVIDERS: ATTEND Internal Medicine | DX: Z29.8 Encounter for other specified prophylactic measures (principal) ==

== ENCOUNTER → 2020-03-25 | Outpatient (CLI) | payer MEDICARE ==
[~2020-03-25] MED LIST changes: +IPRA0.2S51 IH; +METR-145 PO; +METR500T PO; +MICO5POW6 MC; +NITR0.4T39 SL; +NITR1PAT81 TD; +PAMI30VI8 SQ; +TERB250T16 PO
[2020-03-25 15:15] LABS: BASOPHILS % (AUTO) 0 % (0-10); EOSINOPHILS # (AUTO) 0.1 10^3/uL (0.0-0.3); EOSINOPHILS % (AUTO) 2 % (0-10); HEMATOCRIT 33 % (40-54); HEMOGLOBIN 11.7 G/DL (13.3-17.7); LYMPHOCYTES # (AUTO) 1.9 X 10^3 (1.0-4.0); LYMPHOCYTES % (AUTO) 32 % (12-44); MEAN CORPUSCULAR HEMOGLOBIN 32 PG (25-34); MEAN CORPUSCULAR HGB CONC 36 G/DL (32-36); MEAN CORPUSCULAR VOLUME 91 FL (80-99); MEAN PLATELET VOLUME 8.9 FL (7.4-10.4); MONOCYTES # (AUTO) 0.6 X 10^3 (0.0-1.0); MONOCYTES % (AUTO) 10 % (0-12); NEUTROPHILS # (AUTO) 3.3 X 10^3 (1.8-7.8); NEUTROPHILS % (AUTO) 56 % (42-75); PLATELET COUNT 152 10^3/uL (130-400); RED CELL DISTRIBUTION WIDTH 13.3 % (10.0-14.5); WHITE BLOOD COUNT 5.9 10^3/uL (4.3-11.0)
[2020-03-25 15:29] LABS: ALBUMIN 4.1 GM/DL (3.2-4.5); POTASSIUM 4.1 MMOL/L (3.6-5.0)
[2020-03-25 15:33] LABS: BILIRUBIN,TOTAL 0.8 MG/DL (0.1-1.0)
[2020-03-25 15:35] LABS: CREATININE SERUM 1.34 MG/DL (0.60-1.30)
== END ==
LOC: LAB 14:54
PROVIDERS: ATTEND Internal Medicine
DX: E11.65 Type 2 diabetes mellitus with hyperglycemia (principal); I10 Essential (primary) hypertension
CPT/HCPCS: 36415; 80053; 83036; 84443; 85025

== ENCOUNTER 2020-03-27 11:48 | Day surgery (SDC) | payer MEDICARE ==
[2020-03-27] VITALS (13 sets, daily range): BP systolic 91–150; BP diastolic 48–71
[~2020-03-27] VITALS: Ht 180.3 cm; Wt 78.6 kg
[~2020-03-27 11:48] MED LIST changes: -IPRA0.2S51 IH; -METR-145 PO; -METR500T PO; -MICO5POW6 MC; -NITR0.4T39 SL; -NITR1PAT81 TD; -PAMI30VI8 SQ; -TERB250T16 PO
[2020-03-27] MEDS ORDERED: HEParin (CATH LAB) 2,000 ML IV ONE (12:06)
[2020-03-27] MEDS ORDERED: LIDOCAINE 1% INJ 20 ML 20 ML VIAL ONE (12:06)
[2020-03-27] MEDS ORDERED: NS IV 1000 ML 1,000 ML ONE (12:06)
[2020-03-27] MEDS ORDERED: NS IV 1000 ML 1,000 ML IV SCH ×2 (12:15→12:16)
--- NOTE | 2020-03-27 12:40 | Diagnostic Imaging Report ---
INDICATION: Coronary artery disease. TECHNIQUE/COMPARISON: A frontal chest was obtained at 12:28 PM and is compared to 06/23/2019. FINDINGS: There is post sternotomy change. The heart is normal in size. There are no focal infiltrates. There is no pneumothorax or pleural fluid. The Port-A-Cath is unchanged with the tip overlying the SVC. IMPRESSION: Post sternotomy changes. No acute infiltrate, pneumothorax, or pleural fluid. Dictated by: Dictated on workstation # [id number]
[2020-03-27 12:42] LABS: HEMOGLOBIN 11.9 G/DL (13.3-17.7); MEAN PLATELET VOLUME 8.7 FL (7.4-10.4); RED CELL DISTRIBUTION WIDTH 13.4 % (10.0-14.5)
--- OUTSIDE RECORDS SUMMARY | 2020-03-27 12:45 | XMS REPORT | Clinical Summary ---
Author Author [facility] Organization [facility] Address Unknown Phone Unavailable Care Team Providers Care Complaint Adjuster Name Role Phone Faina Lan RN Unavailable Unavailable Brigid Briggs RN Unavailable Unavailable Primo Ruiz MD Unavailable Priscilla Heaton PHARMD Unavailable Unavailable Perry Martínez DO Unavailable Rosalinda Watts DO PCP Kyra Pimentel PHARMD Unavailable Unavailable Source Comments Some departments are not documenting in the electronic medical record. If you d o not see the information that you expected, contact Release of Information in Critical access hospital Information Management department at [phone] for further assistan ce in locating additional records.[facility] Allergies No Known Allergies Medications End Date Status Medication Sig Dispensed Refills Start Date Active ondansetron (ZOFRAN) 4 mg Take 1 Tab by 30 Tab 0 tablet mouth every 6 5 hours as needed for Nausea. Active rosuvastatin (CRESTOR) 10 Take 1 Tab by 90 Tab 3 mg tablet mouth daily. 5 Additional Information Patient not taking. Reported on 07/01/2015 2:06 PM Active albuterol (VENTOLIN HFA, Inhale 2 3 Inhaler 3 0 PROAIR HFA) 90 Puffs by 5 mcg/actuation inhaler mouth every 6 hours as needed for Wheezing. Active fluticasone-salmeterol Inhale 1 Puff 3 Inhaler 3 0 (ADVAIR DISKUS) 250-50 by mouth 5 mcg inhalation disk twice daily. Active docusate (COLACE) 100 mg Take 1 Cap by 180 Cap 3 capsule mouth daily 5 as needed for Constipation. Additional Information Patient not taking. Reported on 07/01/2015 2:06 PM Active insulin aspart (NOVOLOG) Inject 0-14 3 box 3 0 100 unit/mL flexPEN Units into 5 area(s) as directed before meals and at bedtime. Active melatonin 5 mg tab Take 1 Tab by 0 mouth at 5 bedtime daily. Additional Information Patient not taking. Reported on 07/01/2015 2:06 PM Active metoclopramide HCl 1 Tab before 60 Tab 3 (REGLAN) 5 mg tablet meals and at 5 bedtime. Take 1-2 tabs before meals and at bedtime Active milk of magnesia (CONC) Take 10 mL by 0 2,400 mg/10 mL oral mouth every 6 5 suspension hours as needed. Additional Information Patient not taking. Reported on 07/01/2015 2:[address](+) Take 1 Cap by 90 Cap 3 01 (PRILOSEC) 20 mg capsule mouth twice 5 daily. Additional Information Patient taking differently: 20 mg Oral DAILY, Reported on 07/01/2015 2:06 PM Active polyethylene glycol 3350 Take 17 g by 3 Bottle 3 (GLYCOLAX; MIRALAX) 17 mouth daily 5 gram/dose powder as needed. Additional Information Patient not taking. Reported on 07/01/2015 2:06 PM Active saliva, synthetic Take 1 [place] 0 (MOUTHKOTE) spra by mouth or 5 throat as directed as Needed. Additional Information Patient not taking. Reported on 07/01/2015 2:06 PM Active sertraline (ZOLOFT) 50 mg Take 1 Tab by 90 Tab 3 tablet mouth at 5 bedtime daily. Additional Information Patient taking differently: 50 mg Oral DAILY, Reported on 07/01/2015 2:06 PM Active 0.9 % SODIUM CHLORIDE Administer 90 Syringe 0 05/19 (SODIUM CHLORIDE PF 0.9%) 5-20 mL 5 0.9 % flush through vein FLUSH TID. Additional Information Patient not taking. Reported on 07/01/2015 2:06 PM Active oxyCODONE-acetaminophen Take 1-2 Tabs 30 Tab 0 (PERCOCET; ENDOCET; by mouth 5 ROXICET) 5-325 mg tablet every 4 hours as needed for Pain Earliest Fill Date: 06/06/15 Additional Information Patient not taking. Reported on 07/01/2015 2:06 PM Active insulin lispro(+) Inject 8 0 (HUMALOG) [...] glargine (LANTUS Inject 10 3 box 3 0 SOLOSTAR) 100 unit/mL (3 Units into 5 mL) injection PEN area(s) as directed at bedtime daily. Restart 10 units Lantus on 07/06 Active Problems Problem Noted Date Cardiomyopathy 07/02/2015 CKD (chronic kidney disease) 07/02/2015 Essential hypertension 07/02/2015 COPD (chronic obstructive pulmonary disease) 015 ALL (acute lymphoblastic leukemia) 07/01/2015 Hypokalemia 05/18/2015 DIC (disseminated intravascular coagulation) 015 IDDM (insulin dependent diabetes mellitus) 5 Hypomagnesemia 05/15/2015 GERD (gastroesophageal reflux disease) 05/15/2015 [...] Former Smoker Cigarettes Smokeless Tobacco: Never Used Drinks/Week oz/Week Comments Alcohol Use moderate Yes Sex Assigned at Date Recorded Not on file Industry Job Start Date Occupation Not on file Not on file Not on file Travel End Travel History Travel Start No recent travel history available. Last Filed Vital Signs Reading Time Taken Comments Vital Sign 108/58 07/05/2015 11:15 AM CDT Blood Pressure 74 07/05/2015 11:15 AM CDT Pulse 36.6 C (97.8 F) 07/05/2015 11:15 AM CDT Temperature - - Respiratory Rate 99% 07/05/2015 11:15 AM CDT Oxygen Saturation - - Inhaled Oxygen Concentration 64.4 kg (142 lb) 07/05/2015 3:00 AM CDT Weight 180.3 cm (5' 10.98") 07/01/2015 4:33 PM CDT Height 19.81 07/01/2015 4:33 PM CDT Body Mass Index Plan of Treatment Health Maintenance Due Date Last Done Comments MEDICARE ANNUAL WELLNESS 1940 VISIT DTAP/TDAP VACCINES (1 - 1958 Tdap) PHYSICAL (COMPREHENSIVE) 1958 EXAM SHINGLES RECOMBINANT 1990 VACCINE (1 of 2) PNEUMONIA (PPSV23) 2005 VACCINE (1 of 1 - PPSV23) INFLUENZA VACCINE 07/18/2020 HEPATITIS C SCREENING Completed 05/09/2015 Results Not on filefrom Last 3 Months Additional Health Concerns Resolved Time Infection Noted Time VRE 07/04/2015 6:31 AM CDT Insurance Type Payer Benefit Subscriber ID Effective Phone Address Plan / Dates Group Medicare MEDICARE MEDICARE xxxxxxxxxx 2005- PART A AND Present B Medicare BCBS BENJA BCBS xxxxxxxxxxxx [id number] SUPPLEMENT resent [id number] Advance Directives Patient [employer] Member Explanation Type Date Recorded Advance 07/01/2015 11:49 AM Directive/DPOA Date Inactivated Comments Code Status Date Activated 07/05/2015 3:33 PM Full Code 07/01/2015 12:03 PM Provider has discussed Code Status No, more discussi on w/Patient or Family? needed 06/06/2015 4:49 PM Full Code 05/10/2015 6:29 AM Provider has discussed Code Status Yes w/Patient or Family? 05/10/2015 6:29 AM Full Code 05/09/2015 4:57 PM Provider has discussed Code Status No, more discussi on w/Patient or Family? needed
[2020-03-27 12:57] LABS: PROTHROMBIN TIME PATIENT 13.7 SEC (12.2-14.7)
--- OUTSIDE RECORDS SUMMARY | 2020-03-27 13:04 | XMS REPORT | Continuity of Care Document ---
Demographics Preferred Language Unknown Marital Status Unknown Congregational Affiliation Unknown Race Unknown Ethnic Group Unknown Author Organization Unknown Address Unknown Phone Unavailable Allergies Active Description Code Type Severity Reaction Onset Reported/Identified Relationship to Patient Clinical Status Yes No Known Drug Allergies [id number] Drug Allergy Unknown N/A 09/19/2008 Medications There is no data. 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 09/16/1044 ARENAS DO, ADALBERTO Ot E11.9 TYPE 2 DIABETES MELLITUS WITHOUT COMPLIC 09/16/1044 DAGOBERTO AMOR ADALBERTO Ot E78.5 HYPERLIPIDEMIA, UNSPECIFIED 09/16/1044 DAGOBERTO AMOR, ADALBERTO Ot R53.83 OTHER FATIGUE 09/16/1618 JORGE CARDENAS N Ot C91.00 ACUTE LYMPHOBLASTIC LEUKEMIA NOT HAVING 09/16/1618 JORGE CARDENAS N Ot D50.9 IRON DEFICIENCY ANEMIA, UNSPECIFIED 09/16/1618 JORGE CARDENAS N Ot E11.43 TYPE 2 DIABETES W DIABETIC AUTONOMIC (PO 09/16/1618 JORGE CARDENAS N Ot E78.5 HYPERLIPIDEMIA, UNSPECIFIED 09/16/1618 JORGE CARDENAS N Ot I10 ESSENTIAL (PRIMARY) HYPERTENSION 09/16/1618 JORGE CARDENAS N Ot I25.10 ATHSCL HEART DISEASE OF [place] CORONARY 09/16/1618 JORGE CARDENAS Ot Z45.2 ENCOUNTER FOR ADJUSTMENT AND MANAGEMENT 09/16/1618 JORGE CARDENAS Ot Z79.4 [facility] (CURRENT) USE OF INSULIN 09/16/1618 JORGE CARDENAS N Ot Z79.899 OTHER [facility] (CURRENT) DRUG THERAPY 11/23/2013 DEAN JEAN, AILEEN Segovia Ot 530.11 REFLUX ESOPHAGITIS 11/23/2013 DEAN JEAN, AILEEN [place] Ot V12.72 PERSONAL HISTORY OF COLONIC POLYPS 11/23/2013 DEAN JEAN, AILEEN [place] Ot V76.51 SCREEN MAL NEOP-COLON 04/02/2014 JORGE CARDENAS Fernandez Ot 280.9 IRON DEFIC ANEMIA NOS 05/04/2014 Murphy AYALA MD Ot 250.00 DIAB MILLIE WO COMPL, TYPE II OR UNSPEC TY 05/04/2014 Murphy AYALA MD Ot 272 .4 HYPERLIPIDEMIA NEC/NOS 05/04/2014 Murphy AYALA MD Ot 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 00 DIAB MILLIE WO COMPL, TYPE II OR UNSPEC TY 11/07/2014 CHRISTOPHER TANG MD Ot 272. 4 HYPERLIPIDEMIA NEC/NOS 11/07/2014 CHRISTOPHER TANG MD Ot 401. 9 HYPERTENSION NOS 11/07/2014 CHRISTOPHER TANG MD Ot 411. 1 INTERMED CORONARY SYND 11/07/2014 CHRISTOPHER TANG MD Ot 414. 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 82 HISTORY OF TOBACCO USE 11/07/2014 CHRISTOPHER TANG MD Ot V45. 81 AORTOCORONARY BYPASS 11/07/2014 CHRISTOPHER TANG MD Ot V58. 69 OT MED,LT,CURRENT USE 11/26/2014 ARENAS DO, ADALBERTO Ot 250.00 11/26/2014 ARENAS DO, ADALBERTO Ot 272.4 11/26/2014 ARENAS DO, ADALBERTO Ot 280.8 11/26/2014 ARENAS DO, ADALBERTO Ot 401.1 11/26/2014 ARENAS DO, ADALBERTO Ot V58.69 11/28/2014 ARENAS DO, ADALBERTO Ot 250.00 11/28/2014 ARENAS DO, ADALBERTO Ot 272.4 11/28/2014 ARENAS DO, ADALBERTO Ot 280.8 11/28/2014 ARENAS DO, ADALBERTO Ot 401.1 11/28/2014 ARENAS DO, ADALBERTO Ot V58.69 12/06/2014 CHRISTOPHER TANG MD Ot 272. 4 12/06/2014 CHRISTOPHER TANG MD Ot 401. 9 12/06/2014 CHRISTOPHER TANG MD Ot 414. 00 12/06/2014 CHRISTOPHER TANG MD Ot 786. 50 12/13/2014 CHRISTOPHER TANG MD Ot 272. 4 12/13/2014 CHRISTOPHER TANG MD Ot 401. 9 12/13/2014 CHRISTOPHER TANG MD Ot 414. 00 12/13/2014 CHRISTOPHER TANG MD Ot 786. 50 01/07/2015 JORGE CARDENAS N Ot 280.9 01/07/2015 JORGE CARDENAS N Ot 280.9 01/08/2015 JORGE CARDENAS Ot 280.9 01/10/2015 Ot 272.4 01/10/2015 Ot 401.9 01/10/2015 Ot 414.00 01/10/2015 Ot 557.9 01/24/2015 DAGOBERTO AMOR, ADALBERTO Ot 786.2 02/13/2015 JORGE CARDENAS N Ot 280.9 02/19/2015 ARENAS DO, ADALBERTO Ot 786.2 03/08/2015 JORGE CARDENAS N Ot 280.9 04/05/2015 ARENAS DO ADALBERTO Ot 786.2 04/07/2015 JORGE CARDENAS N Ot 280.9 IRON DEFIC ANEMIA NOS 04/09/2015 ARENAS DO ADALBERTO Ot 250.02 DIAB MILLIE WO COMPL, TYPE II OR UNSPEC TY 04/09/2015 ARENAS DO ADALBERTO Ot 272.4 HYPERLIPIDEMIA NEC/NOS 04/09/2015 ARENAS DO ADALBERTO Ot 276.51 DEHYDRATION 04/09/2015 ARENAS DO ADALBERTO Ot 280.9 IRON DEFIC ANEMIA NOS 04/09/2015 ARENAS DO ADALBERTO Ot 287.5 THROMBOCYTOPENIA NOS 04/09/2015 ARENAS DO, ADALBERTO Ot 401.9 HYPERTENSION NOS 04/09/2015 DAGOBERTO DO ADALBERTO Ot 412 OLD MYOCARDIAL INFARCT 04/09/2015 DAGOBERTO DO ADALBERTO Ot 414.01 CORONARY ATHEROSCLEROSIS OF [place] CORON 04/09/2015 DAGOBERTO AMOR ADALBERTO Ot 427.31 ATRIAL FIBRILLATION 04/09/2015 DAGOBERTO AMOR ADALBERTO Ot 443.9 PERIPH VASCULAR DIS NOS 04/09/2015 DAGOBERTO AMOR ADALBERTO Ot 447.4 CELIAC ART COMPRESS SYN 04/09/2015 DAGOBERTO DO ADALBERTO Ot 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 04/09/2015 DAGOBERTO DO ADALBERTO Ot 530.81 ESOPHAGEAL REFLUX 04/09/2015 DAGOBERTO DO ADALBERTO Ot 553.1 UMBILICAL HERNIA 04/09/2015 DAGOBERTO DO ADALBERTO Ot 557.1 CHR VASC INSUFF INTEST 04/09/2015 DAGOBERTO DO ADALBERTO Ot 786.59 CHEST PAIN NEC 04/09/2015 DAGOBERTO AMOR ADALBERTO Ot 787.91 DIARRHEA 04/09/2015 DAGOBERTO DO ADALBERTO Ot 789.06 ABDOMINAL PAIN, EPIGASTRIC 04/09/2015 DAGOBERTO AMOR ADALBERTO Ot V12.61 PERSONAL HISTORY, PNEUMONIA (RECURRENT) 04/09/2015 DAGOBERTO DO ADALBERTO Ot V45.81 AORTOCORONARY BYPASS 04/11/2015 DAGOBERTO AMOR ADALBERTO Ot 250.00 04/11/2015 DAGOBERTO DO ADALBERTO Ot 272.4 04/11/2015 ARENAS DO ADALBERTO Ot 298.9 04/11/2015 DAGOBERTO AMOR ADALBERTO Ot 401.9 04/11/2015 DAGOBERTO AMOR ADALBERTO Ot 414.00 04/11/2015 DAGOBERTO DO, ADALBERTO Ot 443.9 04/11/2015 DAGOBERTO AMOR, ADALBERTO Ot 536.8 04/11/2015 DAGOBERTO AMOR, ADALBERTO Ot 789.09 04/12/2015 Ot 280.9 04/12/2015 Ot [...] V58.67 04/12/2015 Ot V58.69 04/12/2015 KAYLEEN LUCAS SOLE LEVELER MACHINE Ot 250.00 04/12/2015 KAYLEEN LUCAS SOLE LEVELER MACHINE Ot 280.9 04/12/2015 KAYLEEN LUCAS SOLE LEVELER MACHINE Ot 414.00 04/12/2015 KAYLEEN LUCAS SOLE LEVELER MACHINE Ot V12.71 04/12/2015 KAYLEEN LUCAS SOLE LEVELER MACHINE Ot V45.81 04/12/2015 KAYLEEN LUCSA SOLE LEVELER MACHINE Ot V58.66 04/12/2015 KAYLEEN LUCAS SOLE LEVELER MACHINE Ot V58.67 04/12/2015 KAYLEEN LUCAS SOLE LEVELER MACHINE Ot V58.69 04/12/2015 JORGE CARDENAS N Ot 280.9 04/12/2015 ARENAS DO, ADALBERTO Ot 496 04/12/2015 JORGE CARDENAS N Ot 280.9 04/12/2015 DEAN JEAN, AILEEN Segovia Ot V72.84 04/12/2015 ARENAS DO, ADALBERTO Ot 250.00 04/12/2015 ARENAS DO, ADALBERTO Ot 285.9 04/12/2015 ARENAS DO, ADALBERTO Ot 786.05 04/12/2015 ARENAS DO, ADALBERTO Ot 786.50 04/12/2015 ARENAS DO, ADALBERTO Ot V58.69 04/12/2015 ARENAS DO, ADALBERTO Ot V58.83 04/12/2015 ELLE CORMIER DO Ot 786. 05 04/12/2015 ELLE CORMIER DO Ot V45. 81 04/12/2015 ARENAS DO, ADALBERTO Ot 250.00 04/12/2015 ARENAS DO, ADALBERTO Ot 272.4 04/12/2015 ARENAS DO, ADALBERTO Ot 280.8 04/12/2015 ARENAS DO, ADALBERTO Ot 401.1 04/12/2015 ARENAS DO, ADALBERTO Ot V58.69 04/12/2015 ARENAS DO, ADALBERTO Ot 250.00 04/12/2015 ARENAS DO, ADALBERTO Ot 272.4 04/12/2015 ARENAS DO, ADALBERTO Ot 280.8 04/12/2015 ARENAS DO, ADALBERTO Ot 401.1 04/12/2015 ARENAS DO, ADALBERTO Ot 414.00 04/12/2015 ELLE CORMIER DO Ot 496 04/12/2015 ELLE CORMIER DO Ot 496 04/12/2015 CLYDE JEAN, CHRISTOPHER Buchanan Ot 272. 4 04/12/2015 CLYDE JEAN, CHRISTOPHER Buchanan Ot 401. 9 04/12/2015 CLYDE JEAN, CHRISTOPHER Buchanan Ot 414. 00 04/12/2015 CLYDE JEAN, CHRISTOPHER Buchanan Ot 786. 50 04/12/2015 Ot 272.4 04/12/2015 Ot 401.9 04/12/2015 Ot 414.00 04/12/2015 Ot 557.9 04/12/2015 ARENAS DO, ADALBERTO Ot 786.2 04/12/2015 ARENAS DO, ADALBETRO Ot 250.00 04/12/2015 ARENAS DO, ADALBERTO Ot 272.4 04/12/2015 ARENAS DO, ADALBERTO Ot 298.9 04/12/2015 ARENAS DO, ADALBERTO Ot 401.9 04/12/2015 ARENAS DO, ADALBERTO Ot 414.00 04/12/2015 ARENAS DO, ADALBERTO Ot 443.9 04/12/2015 ARENAS DO, ADALBERTO Ot 536.8 04/12/2015 ARENAS DO, ADALBERTO Ot 789.09 04/12/2015 JORGE CARDENAS Fernandez Ot 280.9 04/16/2015 ARENAS DO, ADALBERTO Ot 250.00 04/16/2015 ARENAS DO, ADALBERTO Ot 786.2 04/20/2015 DEAN JEAN, AILEEN Segovia Ot 250.00 DIAB MILLIE WO COMPL, TYPE II OR UNSPEC TY 04/20/2015 DEAN JEAN, AILEEN Segovia Ot 272.4 HYPERLIPIDEMIA NEC/NOS 04/20/2015 AILEEN MORAN MD Ot 276.51 DEHYDRATION 04/20/2015 AILEEN MORAN MD Ot 285.9 ANEMIA NOS 04/20/2015 DEAN JEAN, AILEEN Segovia Ot 288.50 LEUKOCYTOPENIA, UNSPECIFIED 04/20/2015 AILEEN MORAN MD Ot 401.9 HYPERTENSION NOS 04/20/2015 DEAN JEAN, AILEEN S Ot 41 2 OLD MYOCARDIAL INFARCT 04/20/2015 DEAN JEAN, AILEEN Segovia Ot 414.00 CORON ATHEROSCLER NOS TYPE VESSEL, NATIV 04/20/2015 AILEEN MORAN MD Ot 426.3 LEFT BB BLOCK NEC 04/20/2015 AILEEN MORAN MD Ot 427.31 ATRIAL FIBRILLATION 04/20/2015 AILEEN MORAN MD Ot 49 6 CHR AIRWAY OBSTRUCT NEC 04/20/2015 AILEEN MORAN [...] V58.67 LONG-TERM (CURRENT) USE OF INSULIN 04/24/2015 AILEEN MORAN MD Ot 250.00 DIAB MILLIE WO COMPL, TYPE II OR UNSPEC TY 04/24/2015 DEAN JEAN, AILEEN Segovia Ot 552.1 UMBILICAL HERNIA W OBSTR 04/30/2015 DEAN JEAN, AILEEN Segovia Ot 553.1 04/30/2015 AILEEN MORAN MD Ot V72.84 04/30/2015 AILEEN MORAN MD Ot V72.84 04/30/2015 AILEEN MORAN MD Ot 553.1 04/30/2015 AILEEN MORAN MD Ot V72.84 04/30/2015 AILEEN MORAN MD Ot V72.84 04/30/2015 ARENAS DO, ADALBERTO Ot 250.00 04/30/2015 ARENAS DO, ADALBERTO Ot 272.4 04/30/2015 ARENAS DO, ADALBERTO Ot 298.9 04/30/2015 ARENAS DO, ADALBERTO Ot 401.9 04/30/2015 ARENAS DO, ADALBERTO Ot 414.00 04/30/2015 ARENAS DO, ADALBERTO Ot 443.9 04/30/2015 ARENAS DO, ADALBERTO Ot 536.8 04/30/2015 ARENAS DO, ADALBERTO Ot 789.09 05/03/2015 ARENAS DO, ADALBERTO Ot 250.00 05/03/2015 ARENAS DO, ADALBRETO Ot 272.4 05/03/2015 ARENAS DO, ADALBERTO Ot 298.9 05/03/2015 ARENAS DO, ADALBERTO Ot 401.9 05/03/2015 ARENAS DO, ADALBERTO Ot 414.00 05/03/2015 ARENAS DO, ADALBERTO Ot 443.9 05/03/2015 ARENAS DO, ADALBERTO Ot 536.8 05/03/2015 ARENAS DO, ADALBERTO Ot 789.09 05/06/2015 ARENAS DO, ADALBERTO Ot 250.00 DIAB MILLIE WO COMPL, TYPE II OR UNSPEC TY 05/06/2015 ARENAS DO, ADALBERTO Ot 272.4 HYPERLIPIDEMIA NEC/NOS 05/06/2015 ARENAS DO, ADALBERTO Ot 275.2 DIS MAGNESIUM METABOLISM 05/06/2015 ARENAS DO, ADALBERTO Ot 276.1 HYPOSMOLALITY 05/06/2015 ARENAS DO, ADALBERTO Ot 284.19 OTHER PANCYTOPENIA 05/06/2015 ARENAS DO, ADALBERTO Ot 311 DEPRESSIVE DISORDER NEC 05/06/2015 ARENAS DO, ADALBERTO Ot 338.18 OTHER ACUTE POSTOPERATIVE PAIN 05/06/2015 ARENAS DO, ADALBERTO Ot 401.9 HYPERTENSION NOS 05/06/2015 ARENAS DO, ADALBERTO Ot 414.01 CORONARY ATHEROSCLEROSIS OF [place] CORON 05/06/2015 ARENAS DO, ADALBERTO Ot 427.31 ATRIAL FIBRILLATION 05/06/2015 DAGOBERTO DO, ADALBERTO Ot 433.10 CAROTID ARTERY OCCLUSION W O CEREBRAL IN 05/06/2015 DAGOBERTO DO, ADALBERTO Ot 433.30 MULT BILTRAL ARTERY OCCLUSION WO CEREBRA 05/06/2015 ARENAS DO, ADALBERTO Ot 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 05/06/2015 ARENAS DO, ADALBERTO Ot 530.81 ESOPHAGEAL REFLUX 05/06/2015 ARENAS DO, ADALBERTO Ot 607.2 INFLAM DIS, PENIS NEC 05/06/2015 ARENAS DO, ADALBERTO Ot 790.6 ABN BLOOD CHEMISTRY NEC 05/06/2015 ARENAS DO, ADALBERTO Ot 790.99 BLOOD EXAM - OTH NONSPECIFIC FINDINGS 05/06/2015 DAGOBERTO DO ADALBERTO Ot V15.82 HISTORY OF TOBACCO USE 05/06/2015 ARENSA DO, ADALBERTO Ot V45.81 AORTOCORONARY BYPASS 05/06/2015 ARENAS DO, ADALBERTO Ot V58.67 LONG-TERM (CURRENT) USE OF INSULIN 05/10/2015 ARENAS DO, ADALBERTO Ot 250.00 05/10/2015 ARENAS DO, ADALBERTO Ot 786.2 05/16/2015 ARENAS DO, ADALBERTO Ot 250.00 05/16/2015 ARENAS DO, ADALBERTO Ot 786.2 05/22/2015 ARENAS DO, ADALBERTO Ot 250.00 05/22/2015 ARENAS DO, ADALBERTO Ot 272.4 05/22/2015 ARENAS DO, ADALBERTO Ot 280.8 05/22/2015 ARENAS DO, ADALBERTO Ot 401.1 05/22/2015 ARENAS DO, ADALBERTO Ot 414.00 05/22/2015 ARENAS DO, ADALBERTO Ot 455.6 05/22/2015 ARENAS DO, ADALBERTO Ot 530.81 05/22/2015 ARENAS DO, ADALBERTO Ot 702.0 05/22/2015 ARENAS DO, ADALBERTO Ot 722.10 05/22/2015 ARENAS DO, ADALBERTO Ot V58.67 05/27/2015 ARENAS DO, ADALBERTO Ot 250.00 05/27/2015 ARENAS DO, ADALBERTO Ot 272.4 05/27/2015 ARENAS DO, ADALBERTO Ot 280.8 05/27/2015 ARENAS DO, ADALBERTO Ot 401.1 05/27/2015 ARENAS DO, ADALBERTO Ot 414.00 05/27/2015 ARENAS DO, ADALBERTO Ot 455.3 05/27/2015 ARENAS DO, ADALBERTO Ot 530.81 05/27/2015 ARENAS DO, ADALBERTO Ot 702.0 05/27/2015 ARENAS DO, ADALBERTO Ot 722.10 05/27/2015 ARENAS DO, ADALBERTO Ot 786.2 05/31/2015 ARENAS DO, ADALBERTO Ot 250.00 05/31/2015 ARENAS DO, ADALBERTO Ot 272.4 05/31/2015 ARENAS DO, ADALBERTO Ot 280.8 05/31/2015 ARENAS DO, ADALBERTO Ot 401.1 05/31/2015 ARENAS DO, ADALBERTO Ot 414.00 05/31/2015 ARENAS DO, ADALBERTO Ot 455.6 05/31/2015 ARENAS DO, ADALBERTO Ot 530.81 05/31/2015 ARENAS DO, ADALBERTO Ot 702.0 05/31/2015 ARENAS DO, ADALBERTO Ot 722.10 05/31/2015 ARENAS DO, ADALBERTO Ot 786.2 05/31/2015 ARENAS DO, ADALBERTO Ot 919.4 05/31/2015 ARENAS DO, ADALBERTO Ot E000.8 05/31/2015 ARENAS DO, ADALBERTO Ot E906.4 05/31/2015 ARENAS DO, ADALBERTO Ot V58.67 06/10/2015 ARENAS DO, ADALBERTO Ot 250.00 06/10/2015 ARENAS DO, ADALBERTO Ot 272.4 06/10/2015 ARENAS DO, ADALBERTO Ot 280.8 06/10/2015 ARENAS DO, ADALBERTO Ot 401.1 06/10/2015 ARENAS DO, ADALBERTO Ot 414.00 06/10/2015 ARENAS DO, ADALBERTO Ot 455.3 06/10/2015 ARENAS DO, ADALBERTO Ot 530.81 06/10/2015 ARENAS DO, ADALBERTO Ot 702.0 06/10/2015 ARENAS DO, ADALBERTO Ot 722.10 06/10/2015 ARENAS DO, ADALBERTO Ot 786.2 06/11/2015 ARENAS DO, ADALBERTO Ot 204.00 ACUTE LYMPHOID LEUKEMIA W/O MENTION ACHI 06/11/2015 ARENAS DO, ADALBERTO Ot 250.82 DIAB W OTH SPEC MANIFEST, TYPE II OR UNS 06/11/2015 ARENAS DO, ADALBERTO Ot 263.9 PROTEIN-ALVA MALNUTR NOS 06/11/2015 ARENAS DO, ADALBERTO Ot 272.4 HYPERLIPIDEMIA NEC/NOS 06/11/2015 ARENAS DO, ADALBERTO Ot 275.2 DIS MAGNESIUM METABOLISM 06/11/2015 ARENAS DO, ADALBERTO Ot 276.1 HYPOSMOLALITY 06/11/2015 ARENAS DO, ADALBERTO Ot 285.9 ANEMIA NOS 06/11/2015 ARENAS DO, ADALBERTO Ot 287.5 THROMBOCYTOPENIA NOS 06/11/2015 ARENAS DO, ADALBERTO Ot 401.9 HYPERTENSION NOS 06/11/2015 ARENAS DO, ADALBERTO Ot 414.01 CORONARY ATHEROSCLEROSIS OF [place] CORON 06/11/2015 ARENAS DO, ADALBERTO Ot 425.4 PRIM CARDIOMYOPATHY NEC 06/11/2015 ARENAS DO, ADALBERTO Ot 427.31 ATRIAL FIBRILLATION 06/11/2015 DAGOBERTO AMOR ADALBERTO Ot 428.0 CONGESTIVE HEART FAILURE NOS 06/11/2015 DAGOBERTO AMOR ADALBERTO Ot 428.21 ACUTE SYSTOLIC HEART FAILURE 06/11/2015 DAGOBERTO AMOR ADALBERTO Ot 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 06/11/2015 DAGOBERTO AMOR ADALBERTO Ot 530.81 ESOPHAGEAL REFLUX 06/11/2015 DAGOBERTO AMOR ADALBERTO Ot 584.9 ACUTE RENAL FAILURE, UNSPECIFIED 06/11/2015 DAGOBERTO AMOR ADALBERTO Ot 707.8 CHRONIC SKIN ULCER NEC 06/11/2015 DAGOBERTO AMOR ADALBERTO Ot 780.79 OTH MALAISE FATIGUE 06/11/2015 DAGOBERTO AMOR ADALBERTO Ot 783.21 LOSS OF WEIGHT 06/11/2015 DAGOBERTO AMOR ADALBERTO Ot 790.6 ABN BLOOD CHEMISTRY NEC 06/11/2015 RACHAEL ARENAS DOI Ot E932.0 ADV EFF CORTICOSTEROIDS 06/11/2015 RACHAEL ARENAS DOI Ot V12.51 HX-VENOUS THROMBOSIS EMBOLISM 06/11/2015 DAGOBERTO AMOR ADALBERTO Ot V45.81 AORTOCORONARY BYPASS 06/11/2015 DAGOBERTO AMOR ADALBERTO Ot V57.89 REHABILITATION PROC NEC 06/11/2015 DAGOBERTO AMOR ADALBERTO Ot V58.67 LONG-TERM (CURRENT) USE OF INSULIN 06/14/2015 EDWIN JEAN, ROBERT E Ot 204.0 0 06/14/2015 EDWIN JEAN, ROBERT E Ot 250.0 0 06/14/2015 EDWIN JEAN, ROBERT E Ot 263.9 06/14/2015 EDWIN JEAN, ROBERT E Ot 272.4 06/14/2015 EDWIN JEAN, ROBERT E Ot 285.9 06/14/2015 EDWIN JEAN, ROBERT E Ot 287.5 06/14/2015 EDWIN JEAN, ROBERT E Ot 401.9 06/14/2015 EDWIN JEAN, ROBERT E Ot 414.0 0 06/14/2015 EDWIN JEAN, ROBERT E Ot 425.9 06/14/2015 EDWIN JEAN, ROBERT E Ot 496 06/14/2015 EDWIN JEAN, ROBERT E Ot 584.9 06/14/2015 EDWIN JEAN, ROBERT E Ot 783.2 1 06/14/2015 EDWIN JEAN, ROBERT E Ot E930. 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 06/14/2015 EDWIN JEAN ROBERT E Ot 272.4 HYPERLIPIDEMIA NEC/NOS 06/14/2015 EDWIN JEAN ROBERT E Ot 285.9 ANEMIA NOS 06/14/2015 EDWIN JEAN ROBERT E Ot 287.5 THROMBOCYTOPENIA NOS 06/14/2015 EDWIN JEAN ROBERT E Ot 401.9 HYPERTENSION NOS 06/14/2015 EDWIN JEAN ROBERT E Ot 414.0 0 CORON ATHEROSCLER NOS TYPE VESSEL, NATIV 06/14/2015 EDWIN JEAN ROBERT E Ot 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 7 06/14/2015 EDWIN JEAN ROBERT E Ot E933. 1 ADV EFF ANTINEOPLASTIC 06/14/2015 EDWIN JEAN ROBERT E Ot V45.8 1 AORTOCORONARY BYPASS 06/14/2015 EDWIN JEAN ROBERT E Ot V57.8 9 REHABILITATION PROC NEC 06/14/2015 EDWIN JEAN ROBERT E Ot V58.6 9 06/17/2015 DAGOBERTO AMOR ADALBERTO Ot 204.00 ACUTE LYMPHOID LEUKEMIA W/O MENTION ACHI 06/17/2015 DAGOBERTO AMOR ADALBERTO Ot 250.02 DIAB MILLIE WO COMPL, TYPE II OR UNSPEC TY 06/17/2015 ADALBERTO ARENAS DO Ot 262 OTH SEVERE MALNUTRITION 06/17/2015 ADALBERTO ARENAS DO Ot 272.0 PURE HYPERCHOLESTEROLEM 06/17/2015 ADALBERTO ARENAS DO Ot 311 DEPRESSIVE DISORDER NEC 06/17/2015 RACHAEL ARENAS DOI Ot 401.9 HYPERTENSION NOS 06/17/2015 ADALBERTO ARENAS DO Ot 412 OLD MYOCARDIAL INFARCT 06/17/2015 ADALBERTO ARENAS DO Ot 414.00 CORON ATHEROSCLER NOS TYPE VESSEL, NATIV 06/17/2015 ADALBERTO ARENAS DO Ot 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 06/17/2015 ADALBERTO ARENAS DO Ot 427.31 ATRIAL FIBRILLATION 06/17/2015 ADALBERTO ARENAS DO Ot 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 06/17/2015 ADALBERTO ARENAS DO Ot 530.81 ESOPHAGEAL REFLUX 06/17/2015 ADALBERTO ARENAS DO Ot 780.79 OTH MALAISE FATIGUE 06/17/2015 ADALBERTO ARENAS DO Ot 783.0 ANOREXIA 06/17/2015 ADALBERTO ARENAS DO Ot 783.21 LOSS OF WEIGHT 06/17/2015 ADALBERTO ARENAS DO Ot 788.41 URINARY FREQUENCY 06/17/2015 ADALBERTO ARENAS DO Ot E933.1 ADV EFF ANTINEOPLASTIC 06/17/2015 ADALBERTO ARENAS DO Ot V45.81 AORTOCORONARY BYPASS 06/17/2015 ADALBERTO ARENAS DO Ot V58.67 LONG-TERM (CURRENT) USE OF [...] V58.67 06/17/2015 Ot V58.69 06/17/2015 KAYLEEN LUCAS SOLE LEVELER MACHINE Ot 250.00 06/17/2015 KAYLEEN LUCAS SOLE LEVELER MACHINE Ot 280.9 06/17/2015 KAYLEEN LUCAS SOLE LEVELER MACHINE Ot 414.00 06/17/2015 KAYLEEN LUCAS SOLE LEVELER MACHINE Ot V12.71 06/17/2015 KAYLEEN LUCAS SOLE LEVELER MACHINE Ot V45.81 06/17/2015 KAYLEEN LUCAS SOLE LEVELER MACHINE Ot V58.66 06/17/2015 KAYLEEN LUCAS SOLE LEVELER MACHINE Ot V58.67 06/17/2015 KAYLEEN LUCAS SOLE LEVELER MACHINE Ot V58.69 06/17/2015 JORGE CARDENAS Ot 280.9 06/17/2015 ARENAS DO, ADALBERTO Ot 496 06/17/2015 JORGE CARDENAS Ot 280.9 06/17/2015 AILEEN MORAN MD Ot V72.84 06/17/2015 ARENAS DO, ADALBERTO Ot 250.00 06/17/2015 ARENAS DO, ADALBERTO Ot 285.9 06/17/2015 ARENAS DO, ADALBERTO Ot 786.05 06/17/2015 ARENAS DO, ADALBERTO Ot 786.50 06/17/2015 ARENAS DO, ADALBERTO Ot V58.69 06/17/2015 ARENAS DO, ADALBERTO Ot V58.83 06/17/2015 ELLE CORMIER DO Ot 786. 05 06/17/2015 ELLE CORMIER DO Ot V45. 81 06/17/2015 ARENAS DO, ADALBERTO Ot 250.00 06/17/2015 ARENAS DO, ADALBERTO Ot 272.4 06/17/2015 ARENAS DO, ADALBERTO Ot 280.8 06/17/2015 ARENAS DO, ADALBERTO Ot 401.1 06/17/2015 ARENAS DO, ADALBERTO Ot V58.69 06/17/2015 ARENAS DO, ADALBERTO Ot 250.00 06/17/2015 ARENAS DO, ADALBERTO Ot 272.4 06/17/2015 ARENAS DO, ADALBERTO Ot 280.8 06/17/2015 ARENAS DO, ADALBERTO Ot 401.1 06/17/2015 ARENAS DO, ADALBERTO Ot 414.00 06/17/2015 ELLE CORMIER DO Ot 496 06/17/2015 ELLE CORMIER DO Ot 496 06/17/2015 CLYDE JEAN, CHRISTOPHER Buchanan Ot 272. 4 06/17/2015 CLYDE JEAN, CHRISTOPHER Buchanan Ot 401. 9 06/17/2015 CLYDE JEAN, CHRISTOPHER Buchanan Ot 414. 00 06/17/2015 CLYDE JEAN, CHRISTOPHER Buchanan Ot 786. 50 06/17/2015 Ot 272.4 06/17/2015 Ot 401.9 06/17/2015 Ot 414.00 06/17/2015 Ot 557.9 06/17/2015 ARENAS DO, ADALBERTO Ot 786.2 06/17/2015 ARENAS DO, ADALBERTO Ot 250.00 06/17/2015 ARENAS DO, ADALBERTO Ot 272.4 06/17/2015 ARENAS DO, ADALBERTO Ot 298.9 06/17/2015 ARENAS DO, ADALBERTO Ot 401.9 06/17/2015 ARENAS DO, ADALBERTO Ot 414.00 06/17/2015 ARENAS DO, ADALBERTO Ot 443.9 06/17/2015 ARENAS DO, ADALBERTO Ot 536.8 06/17/2015 ARENAS DO, ADALBERTO Ot 789.09 06/17/2015 JORGE CARDENAS Ot 280.9 06/17/2015 ARENAS DO, ADALBERTO Ot 250.00 06/17/2015 ARENAS DO, ADALBERTO Ot 786.2 06/17/2015 DEAN JEAN, AILEEN S Ot V72.84 06/17/2015 DEAN JEAN, ALIEEN S Ot 553.1 06/17/2015 DEAN JEAN, AILEEN S Ot V72.84 06/17/2015 ARENAS DO, ADALBERTO Ot 250.00 06/17/2015 ARENAS DO, ADALBERTO Ot 272.4 06/17/2015 ARENAS DO, ADALBERTO Ot 280.8 06/17/2015 ARENAS DO, ADALBERTO Ot 401.1 06/17/2015 ARENAS DO, ADALBERTO Ot 414.00 06/17/2015 ARENAS DO, ADALBERTO Ot 455.6 06/17/2015 ARENAS DO, ADALBERTO Ot 530.81 06/17/2015 ARENAS DO, ADALBERTO Ot 702.0 06/17/2015 ARENAS DO, ADALBERTO Ot 722.10 06/17/2015 ARENAS DO, ADALBERTO Ot V58.67 06/17/2015 ARENAS DO, ADALBERTO Ot 250.00 06/17/2015 ARENAS DO, ADALBERTO Ot 272.4 06/17/2015 ARENAS DO, ADALBERTO Ot 280.8 06/17/2015 ARENAS DO, ADALBETRO Ot 401.1 06/17/2015 ARENAS DO, ADALBERTO Ot 414.00 06/17/2015 ARENAS DO, ADALBERTO Ot 455.3 06/17/2015 ARENAS DO, ADALBERTO Ot 530.81 06/17/2015 ARENAS DO, ADALBERTO Ot 702.0 06/17/2015 ARENAS DO, ADALBERTO Ot 722.10 06/17/2015 ARENAS DO, ADALBERTO Ot 786.2 06/17/2015 ARENAS DO, ADALBERTO Ot 250.00 06/17/2015 ARENAS DO, ADALBERTO Ot 272.4 06/17/2015 ARENAS DO, ADALBERTO Ot 280.8 06/17/2015 ARENAS DO, ADALBERTO Ot 401.1 06/17/2015 ARENAS DO, ADALBERTO Ot 414.00 06/17/2015 ARENAS DO, ADALBERTO Ot 455.6 06/17/2015 ARENAS DO, ADALBERTO Ot 530.81 06/17/2015 ARENAS DO, ADALBERTO Ot 702.0 06/17/2015 ARENAS DO, ADALBERTO Ot 722.10 06/17/2015 ARENSA DO, ADALBERTO Ot 786.2 06/17/2015 ARENAS DO, ADALBERTO Ot 919.4 06/17/2015 ARENAS DO, ADALBERTO Ot E000.8 06/17/2015 ARENAS DO, ADALBERTO Ot E906.4 06/17/2015 ARENAS DO, ADALBERTO Ot V58.67 06/28/2015 EDWIN JEAN, ROBERT E Ot 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, EXTRANODAL SOLID ORGAN 06/28/2015 EDWIN JEAN, ROBERT E Ot 250.0 0 DIAB MILLIE WO COMPL, TYPE II OR UNSPEC TY 06/28/2015 EDWIN JEAN ROBERT E Ot 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 06/28/2015 EDWIN JEAN, ROBERT E Ot 300.4 DYSTHYMIC DISORDER 06/28/2015 EDWIN JEAN, ROBERT E Ot 401.9 HYPERTENSION NOS 06/28/2015 EDWIN JEAN ROBERT E Ot 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,SUBENDO INFARCT,SUBSE 06/28/2015 EDWIN JEAN, ROBERT E Ot 414.0 0 CORON ATHEROSCLER NOS TYPE VESSEL, NATIV 06/28/2015 EDWIN EJAN ROBERT E Ot 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 06/28/2015 EDWIN JEAN, ROBERT E Ot 428.0 CONGESTIVE HEART FAILURE NOS 06/28/2015 EDWIN JEAN, ROBERT E Ot 428.2 0 UNSPEC SYSTOLIC HRT FAILURE 06/28/2015 EDWIN JEAN ROBERT E Ot 433.1 0 CAROTID ARTERY OCCLUSION W O CEREBRAL IN 06/28/2015 EDWIN JEAN ROBERT E Ot 433.3 0 MULT BILTRAL ARTERY OCCLUSION WO CEREBRA 06/28/2015 EDWIN JEAN, ROBERT E Ot 453.7 4 CHRONIC VENOUS EMBOLISM AND THROMBOSIS O 06/28/2015 EDWIN JEAN ROBERT E Ot 453.7 5 CHRONIC VENOUS EMBOLISM AND THROMBOSIS O 06/28/2015 EDWIN JEAN, ROBERT E Ot 481 PNEUMOCOCCAL PNEUMONIA [STREPTOCOCCUS PN 06/28/2015 EDWIN JEAN, ROBERT E Ot 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 06/28/2015 EDWIN JEAN ROBERT E Ot 593.9 RENAL URETERAL DIS NOS 06/28/2015 EDWIN JEAN ROBERT E Ot 599.0 URIN TRACT INFECTION NOS 06/28/2015 EDWIN JEAN ROBERT E Ot 780.7 9 OTH MALAISE FATIGUE 06/28/2015 ROBERT PINEDA MD Ot 787.9 1 DIARRHEA 06/28/2015 ROBERT PINEDA MD Ot 788.2 0 RETENTION OF URINE NOS 06/28/2015 ROBERT PINEDA MD Ot 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 06/28/2015 ROBERT PINEDA MD Ot I50.2 0 UNSPECIFIED SYSTOLIC (CONGESTIVE) HEART 06/28/2015 ROBERT PINEDA MD Ot I50.9 HEART FAILURE, UNSPECIFIED 06/28/2015 ROBERT PINEDA MD Ot I65.2 9 OCCLUSION AND STENOSIS OF UNSPECIFIED CA 06/28/2015 ROBERT PINEDA MD Ot I65.8 OCCLUSION AND STENOSIS OF OTHER PRECEREB 06/28/2015 ROBERT PINEDA MD Ot 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 06/28/2015 ROBERT PINEDA MD Ot 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 06/28/2015 ROBERT PINEDA MD Ot J44.9 CHRONIC OBSTRUCTIVE PULMONARY DISEASE, U 06/28/2015 ROBERT PINEDA MD Ot N28.9 DISORDER OF KIDNEY AND URETER, UNSPECIFI 06/28/2015 ROBERT PINEDA MD Ot N39.0 URINARY TRACT INFECTION, SITE NOT SPECIF 06/28/2015 ROBERT PINEDA MD Ot NoDx 06/28/2015 ROBERT PINEDA MD Ot R33.9 RETENTION OF URINE, UNSPECIFIED 06/28/2015 ROBERT PINEDA MD Ot V09.8 1 INFECT RES TO DRUGS NEC, W RES TO MULT D 06/28/2015 ROBERT PINEDA MD Ot V45.8 1 AORTOCORONARY BYPASS 06/28/2015 ROBERT PINEDA MD, Ot V57.8 9 REHABILITATION PROC NEC 06/28/2015 ROBERT PINEDA MD Ot Z16.3 5 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 06/28/2015 ROBERT PINEDA MD Ot Z51.8 9 ENCOUNTER FOR OTHER SPECIFIED AFTERCARE 06/28/2015 ROBERT PINEDA MD Ot Z95.1 PRESENCE OF AORTOCORONARY BYPASS GRAFT 07/05/2015 JORGE CARDENAS Ot 280.9 07/09/2015 JORGE CARDENAS Ot 280.9 07/09/2015 JORGE CARDENAS Ot D50.9 07/11/2015 ADALBERTO ARENAS DO Ot 250.00 DIAB MILLIE WO COMPL, TYPE II OR UNSPEC TY 07/11/2015 DAGOBERTO DO ADALBERTO Ot 786.2 COUGH 07/11/2015 ADALBERTO ARENAS DO Ot E11.9 TYPE 2 DIABETES MELLITUS WITHOUT COMPLIC 07/11/2015 ADALBERTO ARENAS DO Ot R05 COUGH 07/17/2015 JORGE CARDENAS Ot 280.9 IRON DEFIC ANEMIA NOS 07/26/2015 AILEEN MORAN MD Ot C95.90 LEUKEMIA, UNSPECIFIED NOT HAVING ACHIEVE 07/26/2015 AILEEN MORAN MD Ot E11.9 TYPE 2 DIABETES MELLITUS WITHOUT COMPLIC 07/26/2015 AILEEN MORAN MD Ot E78.5 HYPERLIPIDEMIA, UNSPECIFIED 07/26/2015 AILEEN MORAN MD Ot I1 0 ESSENTIAL (PRIMARY) HYPERTENSION 07/26/2015 AILEEN MORAN MD Ot K21.9 GASTRO-ESOPHAGEAL REFLUX DISEASE WITHOUT 07/26/2015 AILEEN MORAN MD Ot Z79.4 [facility] (CURRENT) USE OF INSULIN 07/26/2015 AILEEN MORAN MD Ot Z79.82 [facility] (CURRENT) USE OF ASPIRIN 07/31/2015 JORGE CARDENAS Ot 280.9 07/31/2015 JORGE CARDENAS Ot D50.9 08/12/2015 NISSA CASTAÑEDA MD Ot L03.114 08/12/2015 NISSA CASTAÑEDA MD Ot L72 .3 08/15/2015 CHRISTOPHER TANG MD Ot I10 08/15/2015 CHRISTOPHER TANG MD Ot I25. 10 08/15/2015 CLYDE JEAN, CHRISTOPHER Buchanan Ot I48. 0 08/15/2015 CLYDE JEAN, CHRISTOPHER Buchanan Ot I65. 23 08/15/2015 DAGOBERTO AMOR, ADALBERTO Ot K75.2 08/20/2015 KAYLEEN LUCAS SOLE LEVELER MACHINE Ot D50.9 08/23/2015 GARRY JEAN, NISSA Lees Ot L03.114 CELLULITIS OF LEFT UPPER LIMB 08/23/2015 GARRY JEAN, NISSA Lees Ot L72 .3 SEBACEOUS CYST 08/29/2015 KAYLEEN LUCAS SOLE LEVELER MACHINE Ot D50.9 08/30/2015 DAGOBERTO DO, ADALBERTO Ot N39.0 08/30/2015 DAGOBERTO AMOR, ADALBERTO Ot R19.7 09/05/2015 DAGOBERTO AMOR, ADALBERTO Ot N39.0 09/09/2015 CLYDE JEAN, CHRISTOPHER Buchanan Ot I10 09/09/2015 CLYDE JEAN, CHRISTOPHER Buchanan Ot I25. 10 09/09/2015 CLYDE JEAN, CHRISTOPHER Buchanan Ot I48. 0 09/09/2015 CLYDE JEAN, CHRISTOPHER Buchanan Ot I65. 23 09/16/2015 DAGOBERTO AMOR, ADALBERTO Ot N39.0 09/17/2015 CLYDE JEAN, CHRISTOPHER Buchanan Ot I10 09/17/2015 CLYDE JEAN, CHRISTOPHER Buchanan Ot I25. 10 09/17/2015 CLYDE JEAN, CHRISTOPHER Buchanan Ot I48. 0 09/17/2015 CHRISTOPHER TANG MD Ot I65. 23 09/17/2015 JORGE CARDENAS Ot 280.9 09/17/2015 JORGE CARDENAS Ot D50.9 09/18/2015 DAGOBERTO AMOR, ADALBERTO Ot N39.0 09/18/2015 KAYLEEN LUCAS SOLE LEVELER MACHINE Ot D50.9 09/19/2015 KAYLEEN LUCASP Ot D50.9 10/22/2015 JORGE CARDENAS Ot D50.9 IRON DEFICIENCY ANEMIA, UNSPECIFIED 10/22/2015 JORGE CARDENAS Ot Z23 ENCOUNTER FOR IMMUNIZATION 10/24/2015 JORGE CARDENAS Ot 280.9 10/24/2015 JORGE CARDENAS Ot D50.9 10/24/2015 JORGE CARDENAS Ot V05.9 10/24/2015 JORGE CARDENAS Ot Z23 10/25/2015 ARENAS DO, ADALBERTO Ot I70.0 10/25/2015 ARENAS DO, ADALBERTO Ot I70.20 9 10/25/2015 ARENAS DO, ADALBERTO Ot I71.9 12/11/2015 ARENAS DO, ADALBERTO Ot I70.0 12/11/2015 ARENAS DO, ADALBERTO Ot I70.20 9 12/11/2015 ARENAS DO, ADALBERTO Ot I71.9 12/13/2015 ARENAS DO, ADALBERTO Ot I70.0 12/13/2015 ARENAS DO, ADALBERTO Ot I70.20 9 12/13/2015 ARENAS DO, ADALBERTO Ot I71.9 12/13/2015 CLYDE JEAN, CHRISTOPHER Buchanan Ot E78. 2 12/13/2015 CLYDE JEAN, CHRISTOPHER Buchanan Ot I10 12/13/2015 CLYDE JEAN, CHRISTOPHER Buchaann Ot I25. 10 12/13/2015 CLYED JEAN, CHRISTOPHER Buchanan Ot I65. 23 12/18/2015 JORGE CARDENAS Ot 280.9 12/18/2015 JORGE CARDENAS Ot C91.00 12/18/2015 JORGE CARDENAS Ot D50.9 12/18/2015 JORGE CARDENAS Ot V05.9 12/18/2015 JORGE CARDENAS Ot Z79.899 12/19/2015 CLYDE JEAN, CHRISTOPHER Buchanan Ot E78. 2 12/19/2015 CLYDE JEAN, CHRISTOPHER Buchanan Ot I10 12/19/2015 CLYDE JEAN, CHRISTOPHER Buchanan Ot I25. 10 12/19/2015 CLYDE JEAN, CHRISTOPHER Buchanan Ot I65. 23 12/23/2015 DAGOBERTO AMOR ADALBERTO Ot C91.01 ACUTE LYMPHOBLASTIC LEUKEMIA, IN REMISSI 12/23/2015 DAGOBERTO DO ADALBERTO Ot E11.65 TYPE 2 DIABETES MELLITUS WITH HYPERGLYCE 12/23/2015 DAGOBERTO AMOR ADALBERTO Ot E78.5 HYPERLIPIDEMIA, UNSPECIFIED 12/23/2015 ARENAS DO ADALBERTO Ot E86.0 DEHYDRATION 12/23/2015 ARENAS DO ADALBERTO Ot I10 ESSENTIAL (PRIMARY) HYPERTENSION 12/23/2015 DAGOBERTO AMOR ADALBERTO Ot I25.10 ATHSCL HEART DISEASE OF [place] CORONARY 12/23/2015 DAGOBERTO AMOR ADALBERTO Ot I51.9 HEART DISEASE, UNSPECIFIED 12/23/2015 RACHAEL ARENAS DOI Ot J44.9 CHRONIC OBSTRUCTIVE PULMONARY DISEASE, U 12/23/2015 RACHAEL ARENAS DOI Ot K52.9 NONINFECTIVE GASTROENTERITIS AND COLITIS 12/23/2015 DAGOBERTO AMOR ADALBERTO Ot T38.0X 5A ADVERSE EFFECT OF GLUCOCORT/SYNTH ANALOG 12/23/2015 DAGOBERTO AMOR ADALBERTO Ot T45.1X 5A ADVERSE EFFECT OF ANTINEOPLASTIC AND IMM 12/23/2015 RACHAEL ARENAS DOI Ot 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 12/23/2015 DAGOBERTO AMOR ADALBERTO Ot Z95.1 PRESENCE OF AORTOCORONARY BYPASS GRAFT 12/23/2015 RACHAEL ARENAS DOI Ot C91.01 12/23/2015 DAGOBERTO MAOR ADALBERTO Ot E11.65 12/23/2015 DAGOBERTO AMOR ADALBERTO Ot E78.5 12/23/2015 DAGOBERTO AMOR ADALBERTO Ot E86.0 12/23/2015 DAGOBERTO DO ADALBERTO Ot I10 12/23/2015 DAGOBERTO DO ADALBERTO Ot I25.10 12/23/2015 DAGOBERTO AMOR ADALBERTO Ot I51.9 12/23/2015 DAGOBERTO AMOR ADALBERTO Ot J44.9 12/23/2015 DAGOBERTO AMOR ADALBERTO Ot K52.9 12/23/2015 DAGOBERTO AMOR ADALBERTO Ot T38.0X 5A 12/23/2015 DAGOBERTO AMOR ADALBERTO Ot T45.1X 5A 12/23/2015 DAGOBERTO AMOR ADALBERTO Ot Z79.4 12/23/2015 DAGOBERTO AMOR ADALBERTO Ot Z95.1 01/03/2016 THERESA, BOBAN N Ot 280.9 01/03/2016 THERESATABBYAN N Ot C91.00 01/03/2016 THERESAJORGE N Ot D50.9 01/03/2016 THERESAJORGE BERNAL N Ot V05.9 01/03/2016 THERESA BOBAN N Ot Z79.899 01/13/2016 THERESATABBY BERNALAN N Ot 280.9 01/13/2016 THERESAJORGE BERNAL N Ot C91.00 01/13/2016 THERESATABBY BERNALAN N Ot D50.9 01/13/2016 JORGE CARDENAS N Ot V05.9 01/13/2016 THERESAJORGE BERNAL N Ot Z79.899 01/21/2016 THERESAJORGE BERNAL N Ot C91.00 ACUTE LYMPHOBLASTIC LEUKEMIA NOT HAVING 01/21/2016 JORGE CARDENAS N Ot D50.9 IRON DEFICIENCY ANEMIA, UNSPECIFIED 01/21/2016 JORGE CARDENAS N Ot Z79.899 OTHER CITIZEN PARTICIPATION SPECIALIST (CURRENT) DRUG THERAPY 01/23/2016 THERESAJORGE BERNAL N Ot C91.00 01/23/2016 THERESAJORGE BERNAL N Ot D50.9 01/23/2016 THERESAJORGE BERNAL N Ot Z79.899 01/24/2016 THERESAJORGE BERNAL N Ot C91.00 01/24/2016 THERESAJORGE BERNAL N Ot D50.9 01/24/2016 THERESAJORGE BERNAL N Ot Z79.899 02/18/2016 KAYLEEN LUCAS SOLE LEVELER MACHINE Ot C91.00 ACUTE LYMPHOBLASTIC LEUKEMIA NOT HAVING 02/18/2016 KAYLEEN LUCAS SOLE LEVELER MACHINE Ot Z79.899 OTHER [facility] (CURRENT) DRUG THERAPY 02/18/2016 KAYLEEN LUCAS SOLE LEVELER MACHINE Ot C91.00 ACUTE LYMPHOBLASTIC LEUKEMIA NOT HAVING 02/18/2016 KAYLEEN LUCAS SOLE LEVELER MACHINE Ot Z79.899 OTHER CITIZEN PARTICIPATION SPECIALIST (CURRENT) DRUG THERAPY 04/03/2016 JORGE CARDENAS N Ot C91.00 ACUTE LYMPHOBLASTIC LEUKEMIA NOT HAVING 04/03/2016 THERESAJORGE BERNAL N Ot D50.9 IRON DEFICIENCY ANEMIA, UNSPECIFIED 04/03/2016 JORGE CARDENAS N Ot Z79.899 OTHER CITIZEN PARTICIPATION SPECIALIST (CURRENT) DRUG THERAPY 04/08/2016 JORGE CARDENAS N Ot C91.00 ACUTE LYMPHOBLASTIC LEUKEMIA NOT HAVING 04/08/2016 THERESAJORGE BERNAL N Ot D50.9 IRON DEFICIENCY ANEMIA, UNSPECIFIED 04/08/2016 THERESAJORGE BERNAL N Ot Z79.899 OTHER [facility] (CURRENT) DRUG THERAPY 04/10/2016 KAYLEEN LUCAS S SOLE LEVELER MACHINE Ot C91.00 ACUTE LYMPHOBLASTIC LEUKEMIA NOT HAVING 04/10/2016 KAYLEEN LUCAS SOLE LEVELER MACHINE Ot D50.9 IRON DEFICIENCY ANEMIA, UNSPECIFIED 04/10/2016 KAYLEEN LUCAS S SOLE LEVELER MACHINE Ot Z79.899 OTHER [facility] (CURRENT) DRUG THERAPY 04/22/2016 THERESAJORGE N Ot C91.00 ACUTE LYMPHOBLASTIC LEUKEMIA NOT HAVING 04/22/2016 THERESAJORGE N Ot D50.9 IRON DEFICIENCY ANEMIA, UNSPECIFIED 04/22/2016 THERESA, BOBAN N Ot Z79.899 OTHER [facility] (CURRENT) DRUG THERAPY 04/23/2016 THERESA, BOBAN N Ot C91.00 ACUTE LYMPHOBLASTIC LEUKEMIA NOT HAVING 04/23/2016 THERESA, BOBAN N Ot D50.9 IRON DEFICIENCY ANEMIA, UNSPECIFIED 04/23/2016 THERESA, BOBAN N Ot Z79.899 OTHER CITIZEN PARTICIPATION SPECIALIST (CURRENT) DRUG THERAPY 04/24/2016 THERESA, BOBAN N Ot C91.00 ACUTE LYMPHOBLASTIC LEUKEMIA NOT HAVING 04/24/2016 THERESA, BOBAN N Ot D50.9 IRON DEFICIENCY ANEMIA, UNSPECIFIED 04/24/2016 THERESAJORGE N Ot Z79.899 OTHER CITIZEN PARTICIPATION SPECIALIST (CURRENT) DRUG THERAPY 04/29/2016 KAYLEEN LUCAS S SOLE LEVELER MACHINE Ot C91.00 ACUTE LYMPHOBLASTIC LEUKEMIA NOT HAVING 04/29/2016 LUCASKAYLEEN S SOLE LEVELER MACHINE Ot D50.9 IRON DEFICIENCY ANEMIA, UNSPECIFIED 04/29/2016 LUCASCORINEAH S SOLE LEVELER MACHINE Ot Z79.899 OTHER CITIZEN PARTICIPATION SPECIALIST (CURRENT) DRUG THERAPY 05/19/2016 KAYLEEN LUCAS SOLE LEVELER MACHINE Ot C91.00 ACUTE LYMPHOBLASTIC LEUKEMIA NOT HAVING 05/19/2016 LUCASKAYLEEN SOLE LEVELER MACHINE Ot D50.9 IRON DEFICIENCY ANEMIA, UNSPECIFIED 05/19/2016 LUCASKAYLEEN S SOLE LEVELER MACHINE Ot Z79.899 OTHER CITIZEN PARTICIPATION SPECIALIST (CURRENT) DRUG THERAPY 05/20/2016 BASSAM FISCHER Ot I25.10 ATHSCL HEART DISEASE OF [place] CORONARY 05/20/2016 BASSAM FISCHER Ot I25.10 ATHSCL HEART DISEASE OF [place] CORONARY 05/20/2016 BASSAM FISCHER Ot I25.10 ATHSCL HEART DISEASE OF [place] CORONARY 05/21/2016 BASSAM FISCHER Ot E78.2 MIXED HYPERLIPIDEMIA 05/21/2016 BASSAM FISCHER Ot I10 ESSENTIAL (PRIMARY) HYPERTENSION 05/21/2016 FERNANDEZ-DOV PA, BASSAM K Ot I25.10 ATHSCL HEART DISEASE OF [place] CORONARY 05/21/2016 BASSAM FISCHER Ot I65.23 OCCLUSION AND STENOSIS OF [place] 05/21/2016 BASSAM FISCHER Ot E78.2 MIXED HYPERLIPIDEMIA 05/21/2016 BASSAM FISCHER Ot I10 ESSENTIAL (PRIMARY) HYPERTENSION 05/21/2016 BASSAM FISCHER Ot I25.10 ATHSCL HEART DISEASE OF [place] CORONARY 05/21/2016 BASSAM FISCHER Ot I65.23 OCCLUSION AND STENOSIS OF [place]AL [place] 06/02/2016 KAYLEEN LUCAS SOLE LEVELER MACHINE Ot C91.00 ACUTE LYMPHOBLASTIC LEUKEMIA NOT HAVING 06/02/2016 LUCASKAYLEEN Segovia SOLE LEVELER MACHINE Ot D50.9 IRON DEFICIENCY ANEMIA, UNSPECIFIED 06/02/2016 LUCASKAYLEEN Segovia SOLE LEVELER MACHINE Ot Z79.899 OTHER [facility] (CURRENT) DRUG THERAPY 06/04/2016 KAYLEEN LUCAS SOLE LEVELER MACHINE Ot C91.00 ACUTE LYMPHOBLASTIC LEUKEMIA NOT HAVING 06/04/2016 LUCASKAYLEEN SOLE LEVELER MACHINE Ot D50.9 IRON DEFICIENCY ANEMIA, UNSPECIFIED 06/04/2016 LUCASKAYLEEN S SOLE LEVELER MACHINE Ot Z79.899 OTHER [facility] (CURRENT) DRUG THERAPY 06/12/2016 THERESAJORGE BERNAL Ot C91.00 ACUTE LYMPHOBLASTIC LEUKEMIA NOT HAVING 06/12/2016 THERESAJORGE BERNAL Ot D50.9 IRON DEFICIENCY ANEMIA, UNSPECIFIED 06/12/2016 THERESAJORGE BERNAL Ot Z79.899 OTHER [facility] (CURRENT) DRUG THERAPY 06/12/2016 BASSAM FISCHER Ot E78.2 MIXED HYPERLIPIDEMIA 06/12/2016 BASSAM FISCHER Ot I10 ESSENTIAL (PRIMARY) HYPERTENSION 06/12/2016 BASSAM FISCHER Ot I25.10 ATHSCL HEART DISEASE OF [place] CORONARY 06/12/2016 BASSAM FISCHER Ot I65.23 OCCLUSION AND STENOSIS OF [place] 06/15/2016 AILEEN MORAN MD Ot C95.90 LEUKEMIA, UNSPECIFIED NOT HAVING ACHIEVE 06/15/2016 AILEEN MORAN MD Ot E11.9 TYPE 2 DIABETES MELLITUS WITHOUT COMPLIC 06/15/2016 DEAN JEAN, AILEEN Segovia Ot E78.5 HYPERLIPIDEMIA, UNSPECIFIED 06/15/2016 AILEEN MORAN MD Ot I1 0 ESSENTIAL (PRIMARY) HYPERTENSION 06/15/2016 AILEEN MORAN MD Ot K21.9 GASTRO-ESOPHAGEAL REFLUX DISEASE WITHOUT 06/15/2016 AILEEN MORAN MD Ot Z79.4 [facility] (CURRENT) USE OF INSULIN 06/15/2016 AILEEN MORAN MD Ot Z79.82 [facility] (CURRENT) USE OF ASPIRIN 06/18/2016 JORGE CARDENAS Ot C91.00 ACUTE LYMPHOBLASTIC LEUKEMIA NOT HAVING 06/18/2016 THERESAJORGE BERNAL Ot D50.9 IRON DEFICIENCY ANEMIA, UNSPECIFIED 06/18/2016 THERESAJORGE BERNAL Ot Z79.899 OTHER [facility] (CURRENT) DRUG THERAPY 06/26/2016 KAYLEEN LUCASP Ot C91.00 ACUTE LYMPHOBLASTIC LEUKEMIA NOT HAVING 06/26/2016 KAYLEEN LUCASP Ot D50.9 IRON DEFICIENCY ANEMIA, UNSPECIFIED 06/26/2016 LUCASKAYLEEN Segovia SOLE LEVELER MACHINE Ot Z79.899 OTHER [facility] (CURRENT) DRUG THERAPY 07/07/2016 LUCASKAYLEEN Segovia SOLE LEVELER MACHINE Ot C91.00 ACUTE LYMPHOBLASTIC LEUKEMIA NOT HAVING 07/07/2016 KAYLEEN LUCAS SOLE LEVELER MACHINE Ot D50.9 IRON DEFICIENCY ANEMIA, UNSPECIFIED 07/07/2016 LUCASKAYLEEN Segovia SOLE LEVELER MACHINE Ot Z79.899 OTHER CITIZEN PARTICIPATION SPECIALIST (CURRENT) DRUG THERAPY 07/13/2016 ANGUS DEJESUS, BASSAM Camacho Ot I25.10 ATHSCL HEART DISEASE OF [place] CORONARY 07/13/2016 Ot 786.07 WHE EZING 07/13/2016 Ot 272.4 HYPE RLIPIDEMIA NEC/NOS 07/13/2016 Ot 401.9 HYPE RTENSION NOS 07/13/2016 Ot 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, NATIV 07/13/2016 Ot 280.9 IRON DEFIC ANEMIA NOS 07/13/2016 Ot 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, NATIV 07/13/2016 Ot V45.81 AOR TOCORONARY BYPASS 07/13/2016 Ot V58.69 OTH MED,LT,CURRENT USE 07/13/2016 Ot 280.9 IRON DEFIC ANEMIA NOS 07/13/2016 Ot 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, NATIV 07/13/2016 Ot V12.71 PER SELIN HISTORY OF PEPTIC ULCER DISEASE 07/13/2016 Ot V45.81 AOR TOCORONARY BYPASS 07/13/2016 Ot V58.66 YARELIS G-TERM (CURRENT) USE OF ASPIRIN 07/13/2016 Ot V58.67 YARELIS G-TERM (CURRENT) USE OF INSULIN 07/13/2016 Ot V58.69 OTH MED,LT,CURRENT USE 07/13/2016 Ot 250.00 VIPIN B MILLIE WO COMPL, TYPE II OR UNSPEC TY 07/13/2016 Ot 280.9 IRON DEFIC ANEMIA NOS 07/13/2016 Ot 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, NATIV 07/13/2016 Ot V12.71 PER SELIN HISTORY OF PEPTIC ULCER DISEASE 07/13/2016 Ot V45.81 AOR TOCORONARY BYPASS 07/13/2016 Ot V58.66 YARELIS G-TERM (CURRENT) USE OF ASPIRIN 07/13/2016 Ot V58.67 YARELIS G-TERM (CURRENT) USE OF INSULIN 07/13/2016 Ot V58.69 OTH MED,LT,CURRENT USE 07/13/2016 KAYLEEN LUCAS SOLE LEVELER MACHINE Ot 250.00 DIAB MILLIE WO COMPL, TYPE II OR UNSPEC TY 07/13/2016 KAYLEEN LUCAS SOLE LEVELER MACHINE Ot 280.9 IRON DEFIC ANEMIA NOS 07/13/2016 KAYLEEN LUCAS SOLE LEVELER MACHINE Ot 414.00 CORON ATHEROSCLER NOS TYPE VESSEL, NATIV 07/13/2016 KAYLEEN LUCAS SOLE LEVELER MACHINE Ot V12.71 PERSONAL HISTORY OF PEPTIC ULCER DISEASE 07/13/2016 KAYLEEN LUCAS SOLE LEVELER MACHINE Ot V45.81 AORTOCORONARY BYPASS 07/13/2016 KAYLEEN LUCAS SOLE LEVELER MACHINE Ot V58.66 LONG-TERM (CURRENT) USE OF ASPIRIN 07/13/2016 KAYLEEN LUCAS SOLE LEVELER MACHINE Ot V58.67 LONG-TERM (CURRENT) USE OF INSULIN 07/13/2016 KAYLEEN LUCAS SOLE LEVELER MACHINE Ot V58.69 OTH MED,LT,CURRENT USE 07/13/2016 JORGE CARDENAS Ot 280.9 IRON DEFIC ANEMIA NOS 07/13/2016 ADALBERTO RAENAS DO Ot 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 07/13/2016 THERESA, BOBAN N Ot 280.9 IRON DEFIC ANEMIA NOS 07/13/2016 DEAN JEAN, AILEEN S Ot V72.84 EXAM PRE-OPERATIVE NOS 07/13/2016 ARENAS DO, ADALBERTO Ot 250.00 DIAB MILLIE WO COMPL, TYPE II OR UNSPEC TY 07/13/2016 ARENAS DO, ADALBERTO Ot 285.9 ANEMIA NOS 07/13/2016 ARENAS DO, ADALBERTO Ot 786.05 SHORTNESS OF BREATH 07/13/2016 ARENASLAYLA AMOR ADALBERTO Ot 786.50 CHEST PAIN NOS 07/13/2016 DAGOBERTO AMOR ADALBERTO Ot V58.69 OT MED,LT,CURRENT USE 07/13/2016 ARENAS DO ADALBERTO Ot V58.83 ENCOUNTER FOR THERAPEUTIC DRUG MONITORIN 07/13/2016 ELLE CORMIER DO Ot 786. 05 SHORTNESS OF BREATH 07/13/2016 ELLE CORMIER DO Ot V45. 81 AORTOCORONARY BYPASS 07/13/2016 ARENAS DO, ADALBERTO Ot 250.00 DIAB MILLIE WO COMPL, TYPE II OR UNSPEC TY 07/13/2016 ARENAS DO, ADALBERTO Ot 272.4 HYPERLIPIDEMIA NEC/NOS 07/13/2016 ARENAS DO, ADALBERTO Ot 280.8 IRON DEFIC ANEMIA NEC 07/13/2016 ARENAS DO, ADALBERTO Ot 401.1 BENIGN HYPERTENSION 07/13/2016 ARENAS DO ADALBERTO Ot V58.69 OT MED,LT,CURRENT USE 07/13/2016 ARENAS DO, ADALBERTO Ot 250.00 DIAB MILLIE WO COMPL, TYPE II OR UNSPEC TY 07/13/2016 ARENAS DO, ADALBERTO Ot 272.4 HYPERLIPIDEMIA NEC/NOS 07/13/2016 ARENAS DO, ADALBERTO Ot 280.8 IRON DEFIC ANEMIA NEC 07/13/2016 ARENAS DO, ADALBERTO Ot 401.1 BENIGN HYPERTENSION 07/13/2016 DAGOBERTO DO, ADALBERTO Ot 414.00 CORON ATHEROSCLER NOS TYPE VESSEL, NATIV 07/13/2016 ELLE CORMIER DO Ot 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 07/13/2016 ELLE CORMIER DO Ot 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 07/13/2016 CHRISTOPHER TANG MD Ot 272. 4 HYPERLIPIDEMIA NEC/NOS 07/13/2016 CHRISTOPHER TANG MD Ot 401. 9 HYPERTENSION NOS 07/13/2016 CHRISTOPHER TANG MD Ot 414. 00 CORON ATHEROSCLER NOS TYPE VESSEL, NATIV 07/13/2016 CLYDE JEAN, CHRISTOPHER Buchanan Ot 786. 50 CHEST PAIN NOS 07/13/2016 Ot 272.4 HYPE RLIPIDEMIA NEC/NOS 07/13/2016 Ot 401.9 HYPE RTENSION NOS 07/13/2016 Ot 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, NATIV 07/13/2016 Ot 557.9 VASC INSUFF INTEST NOS 07/13/2016 ARENAS DO, ADALBERTO Ot 786.2 COUGH 07/13/2016 ARENAS DO, ADALBERTO Ot 250.00 DIAB MILLIE WO COMPL, TYPE II OR UNSPEC TY 07/13/2016 ARENAS DO, ADALBERTO Ot 272.4 HYPERLIPIDEMIA NEC/NOS 07/13/2016 ARENAS DO, ADALBERTO Ot 298.9 PSYCHOSIS NOS 07/13/2016 ARENAS DO, ADALBERTO Ot 401.9 HYPERTENSION NOS 07/13/2016 ARENAS DO, ADALBERTO Ot 414.00 CORON ATHEROSCLER NOS TYPE VESSEL, NATIV 07/13/2016 DAGOBERTO DO ADALBERTO Ot 443.9 PERIPH VASCULAR DIS NOS 07/13/2016 DAGOBERTO DO ADALBERTO Ot 536.8 STOMACH FUNCTION DIS NEC 07/13/2016 DAGOBERTO DO, ADALBERTO Ot 789.09 ABDOMINAL PAIN, OTHER SPECIFIED SITE 07/13/2016 DEAN JEAN, AILEEN Segovia Ot V72.84 EXAM PRE-OPERATIVE NOS 07/13/2016 DEAN JEAN, AILEEN Segovia Ot 553.1 UMBILICAL HERNIA 07/13/2016 DEAN JEAN, AILEEN Segovia Ot V72.84 EXAM PRE-OPERATIVE NOS 07/13/2016 DAGOBERTO DO, ADALBERTO Ot 250.00 DIAB MILLIE WO COMPL, TYPE II OR UNSPEC TY 07/13/2016 ARENAS DO, ADALBERTO Ot 272.4 HYPERLIPIDEMIA NEC/NOS 07/13/2016 ARENAS DO, ADALBERTO Ot 280.8 IRON DEFIC ANEMIA NEC 07/13/2016 ARENAS DO, ADALBERTO Ot 401.1 BENIGN HYPERTENSION 07/13/2016 ARENAS DO, ADALBERTO Ot 414.00 CORON ATHEROSCLER NOS TYPE VESSEL, NATIV 07/13/2016 DAGOBERTO DO, ADALBERTO Ot 455.6 HEMORRHOIDS NOS 07/13/2016 ARENAS DO, ADALBERTO Ot 530.81 ESOPHAGEAL REFLUX 07/13/2016 ARENAS DO, ADALBERTO Ot 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 07/13/2016 ARENAS DO, ADALBERTO Ot 722.10 LUMBAR DISC DISPLACEMENT 07/13/2016 ARENAS DO, ADALBERTO Ot V58.67 LONG-TERM (CURRENT) USE OF INSULIN 07/13/2016 ARENAS DO, ADALBERTO Ot 250.00 DIAB MILLIE WO COMPL, TYPE II OR UNSPEC TY 07/13/2016 ARENAS DO, ADALBERTO Ot 272.4 HYPERLIPIDEMIA NEC/NOS 07/13/2016 ARENAS DO, ADALBERTO Ot 280.8 IRON DEFIC ANEMIA NEC 07/13/2016 ARENAS DO, ADALBERTO Ot 401.1 BENIGN HYPERTENSION 07/13/2016 ARENAS DO, ADALBERTO Ot 414.00 CORON ATHEROSCLER NOS TYPE VESSEL, NATIV 07/13/2016 ARENAS DO, ADALBERTO Ot 455.3 EXT HEMORRHOID W/O COMPL 07/13/2016 ARENAS DO, ADALBERTO Ot 530.81 ESOPHAGEAL REFLUX 07/13/2016 ARENAS DO, ADALBERTO Ot 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 07/13/2016 ARENAS DO, ADALBERTO Ot 722.10 LUMBAR DISC DISPLACEMENT 07/13/2016 ARENAS DO, ADALBERTO Ot 786.2 COUGH 07/13/2016 ARENAS DO, ADALBERTO Ot 250.00 DIAB MILLIE WO COMPL, TYPE II OR UNSPEC TY 07/13/2016 ARENAS DO, ADALBERTO Ot 272.4 HYPERLIPIDEMIA NEC/NOS 07/13/2016 ARENAS DO, ADALBERTO Ot 280.8 IRON DEFIC ANEMIA NEC 07/13/2016 ARENAS DO, ADALBERTO Ot 401.1 BENIGN HYPERTENSION 07/13/2016 ARENAS DO, ADALBERTO Ot 414.00 CORON ATHEROSCLER NOS TYPE VESSEL, NATIV 07/13/2016 ARENAS DO, ADALBERTO Ot 455.6 HEMORRHOIDS NOS 07/13/2016 ARENAS DO, ADALBERTO Ot 530.81 ESOPHAGEAL REFLUX 07/13/2016 ARENAS DO, ADALBERTO Ot 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 07/13/2016 ARENAS DO, ADALBERTO Ot 722.10 LUMBAR DISC DISPLACEMENT 07/13/2016 ARENAS DO, ADALBERTO Ot 786.2 COUGH 07/13/2016 ARENAS DO, ADALBERTO Ot 919.4 INSECT BITE NEC 07/13/2016 ARENAS DO ADALBERTO Ot E000.8 OTHER EXTERNAL CAUSE STATUS 07/13/2016 DAGOBERTO DO ADALBERTO Ot E906.4 NONVENOM ARTHROPOD BITE 07/13/2016 DAGOBERTO AMOR ADALBERTO Ot V58.67 LONG-TERM (CURRENT) USE OF INSULIN 07/13/2016 AILEEN MORAN MD Ot C95.90 LEUKEMIA, UNSPECIFIED NOT HAVING ACHIEVE 07/13/2016 AILEEN MORAN MD Ot Z01.818 ENCOUNTER FOR OTHER PREPROCEDURAL EXAMIN 07/13/2016 AILEEN MORAN MD Ot Z11.2 ENCOUNTER FOR SCREENING FOR OTHER BACTER 07/13/2016 ADALBERTO ARENAS DO Ot 250.00 07/13/2016 ADALBERTO ARENAS DO Ot 786.2 07/13/2016 KAYLEEN LUCASP Ot D50.9 IRON DEFICIENCY ANEMIA, UNSPECIFIED 07/13/2016 ADALBERTO ARENAS DO Ot K75.2 NONSPECIFIC REACTIVE HEPATITIS 07/13/2016 CHRISTOPHER TANG MD, Ot I10 ESSENTIAL (PRIMARY) HYPERTENSION 07/13/2016 CHRISTOPHER TANG MD Ot I25. 10 ATHSCL HEART DISEASE OF [place] CORONARY 07/13/2016 CHRISTOPHER TANG MD Ot I48. 0 PAROXYSMAL ATRIAL FIBRILLATION 07/13/2016 CHRISTOPHER TANG MD Ot I65. 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 2 MIXED HYPERLIPIDEMIA 07/13/2016 CHRISTOPHER TANG MD Ot I10 ESSENTIAL (PRIMARY) HYPERTENSION 07/13/2016 CHRISTOPHER TANG MD Ot I25. 10 ATHSCL HEART DISEASE OF [place] CORONARY 07/13/2016 CHRISTOPHER TANG MD Ot I65. 23 OCCLUSION AND STENOSIS OF [place] 07/13/2016 KAYLEEN LUCAS SOLE LEVELER MACHINE Ot C91.00 ACUTE LYMPHOBLASTIC LEUKEMIA NOT HAVING 07/13/2016 KAYLEEN LUCAS SOLE LEVELER MACHINE Ot Z79.899 OTHER [facility] (CURRENT) DRUG THERAPY 07/13/2016 KAYLEEN LUCASP Ot C91.00 ACUTE LYMPHOBLASTIC LEUKEMIA NOT HAVING 07/13/2016 LUCAS, CORINESHAMAR Juliette SOLE LEVELER MACHINE Ot D50.9 IRON DEFICIENCY ANEMIA, UNSPECIFIED 07/13/2016 KAYLEEN LUCAS SOLE LEVELER MACHINE Ot Z79.899 OTHER CITIZEN PARTICIPATION SPECIALIST (CURRENT) DRUG THERAPY 07/13/2016 JORGE CARDENAS N Ot C91.00 ACUTE LYMPHOBLASTIC LEUKEMIA NOT HAVING 07/13/2016 JORGE CARDENAS Ot D50.9 IRON DEFICIENCY ANEMIA, UNSPECIFIED 07/13/2016 JORGE CARDENAS Ot Z79.899 OTHER CITIZEN PARTICIPATION SPECIALIST (CURRENT) DRUG THERAPY 07/13/2016 BASSAM FISCHER Ot I25.10 ATHSCL HEART DISEASE OF [place] CORONARY 07/13/2016 BASSAM FISCHER Ot E78.2 MIXED HYPERLIPIDEMIA 07/13/2016 BASSAM FISCHER Ot I10 ESSENTIAL (PRIMARY) HYPERTENSION 07/13/2016 BASSAM FISCHER Ot I25.10 ATHSCL HEART DISEASE OF [place] CORONARY 07/13/2016 BASSAM FISCHER Ot I65.23 OCCLUSION AND STENOSIS OF [place] 07/13/2016 CORINE LUCASSHAMAR Juliette SOLE LEVELER MACHINE Ot C91.00 ACUTE LYMPHOBLASTIC LEUKEMIA NOT HAVING 07/13/2016 KAYLEEN LUCAS SOLE LEVELER MACHINE Ot D50.9 IRON DEFICIENCY ANEMIA, UNSPECIFIED 07/13/2016 LANCE KAYLEEN [place] SOLE LEVELER MACHINE Ot Z79.899 OTHER CITIZEN PARTICIPATION SPECIALIST (CURRENT) DRUG THERAPY 07/14/2016 BASSAM FISCHER Ot E78.2 MIXED HYPERLIPIDEMIA 07/14/2016 BASSAM FISCHER Ot I10 ESSENTIAL (PRIMARY) HYPERTENSION 07/14/2016 BASSAM FISCHER Ot I25.10 ATHSCL HEART DISEASE OF [place] CORONARY 07/14/2016 BASSAM FISCHER Ot I65.23 OCCLUSION AND STENOSIS OF [place] 07/14/2016 Ot 786.07 WHE EZING 07/14/2016 Ot 272.4 HYPE RLIPIDEMIA NEC/NOS 07/14/2016 Ot 401.9 HYPE RTENSION NOS 07/14/2016 Ot 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, NATIV 07/14/2016 Ot 280.9 IRON DEFIC ANEMIA NOS 07/14/2016 Ot 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, NATIV 07/14/2016 Ot V45.81 AOR TOCORONARY BYPASS 07/14/2016 Ot V58.69 OTH MED,LT,CURRENT USE 07/14/2016 Ot 280.9 IRON DEFIC ANEMIA NOS 07/14/2016 Ot 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, NATIV 07/14/2016 Ot V12.71 PER SELIN HISTORY OF PEPTIC ULCER DISEASE 07/14/2016 Ot V45.81 AOR TOCORONARY BYPASS 07/14/2016 Ot V58.66 YARELIS G-TERM (CURRENT) USE OF ASPIRIN 07/14/2016 Ot V58.67 YARELIS G-TERM (CURRENT) USE OF INSULIN 07/14/2016 Ot V58.69 OTH MED,LT,CURRENT USE 07/14/2016 Ot 250.00 VIPIN B MILLIE WO COMPL, TYPE II OR UNSPEC TY 07/14/2016 Ot 280.9 IRON DEFIC ANEMIA NOS 07/14/2016 Ot 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, NATIV 07/14/2016 Ot V12.71 PER SELIN HISTORY OF PEPTIC ULCER DISEASE 07/14/2016 Ot V45.81 AOR TOCORONARY BYPASS 07/14/2016 Ot V58.66 YARELIS G-TERM (CURRENT) USE OF ASPIRIN 07/14/2016 Ot V58.67 YARELIS G-TERM (CURRENT) USE OF INSULIN 07/14/2016 Ot V58.69 OTH MED,LT,CURRENT USE 07/14/2016 KAYLEEN LUCAS Ot 250.00 DIAB MILLIE WO COMPL, TYPE II OR UNSPEC TY 07/14/2016 KAYLEEN LUCAS Ot 280.9 IRON DEFIC ANEMIA NOS 07/14/2016 KAYLEEN LUCAS Ot 414.00 CORON ATHEROSCLER NOS TYPE VESSEL, NATIV 07/14/2016 KAYLEEN LUCAS Ot V12.71 PERSONAL HISTORY OF PEPTIC ULCER DISEASE 07/14/2016 KAYLEEN LUCAS Ot V45.81 AORTOCORONARY BYPASS 07/14/2016 CORINE LUCASSHAMAR Juliette SOLE LEVELER MACHINE Ot V58.66 LONG-TERM (CURRENT) USE OF ASPIRIN 07/14/2016 CORINE LUCASSHAMAR Juliette SOLE LEVELER MACHINE Ot V58.67 LONG-TERM (CURRENT) USE OF INSULIN 07/14/2016 LUCASKAYLEEN Segovia SOLE LEVELER MACHINE Ot V58.69 OTH MED,LT,CURRENT USE 07/14/2016 JORGE CARDENAS Ot 280.9 IRON DEFIC ANEMIA NOS 07/14/2016 DAGOBERTO AMOR ADALBERTO Ot 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 07/14/2016 JORGE CARDENAS Ot 280.9 IRON DEFIC ANEMIA NOS 07/14/2016 DEAN JEAN, AILEEN [place] Ot V72.84 EXAM PRE-OPERATIVE NOS 07/14/2016 DAGOBERTO AMOR ADALBERTO Ot 250.00 DIAB MILLIE WO COMPL, TYPE II OR UNSPEC TY 07/14/2016 DAGOBERTO AMOR ADALBERTO Ot 285.9 ANEMIA NOS 07/14/2016 DAGOBERTO AMOR ADALBERTO Ot 786.05 SHORTNESS OF BREATH 07/14/2016 DAGOBERTO AMOR ADALBERTO Ot 786.50 CHEST PAIN NOS 07/14/2016 DAGOBERTO AMOR ADALBERTO Ot V58.69 OTH MED,LT,CURRENT USE 07/14/2016 DAGOBERTO AMOR ADALBERTO Ot V58.83 ENCOUNTER FOR THERAPEUTIC DRUG MONITORIN 07/14/2016 ELLE CORMIER DO Ot 786. 05 SHORTNESS OF BREATH 07/14/2016 ELLE CORMIER DO Ot V45. 81 AORTOCORONARY BYPASS 07/14/2016 DAGOBERTO AMOR ADALBERTO Ot 250.00 DIAB MILLIE WO COMPL, TYPE II OR UNSPEC TY 07/14/2016 DAGOBERTO DO ADALBERTO Ot 272.4 HYPERLIPIDEMIA NEC/NOS 07/14/2016 ARENAS DO, ADALBERTO Ot 280.8 IRON DEFIC ANEMIA NEC 07/14/2016 DAGOBERTO AMOR, ADALBERTO Ot 401.1 BENIGN HYPERTENSION 07/14/2016 DAGOBERTO AMOR ADALBERTO Ot V58.69 OTH MED,LT,CURRENT USE 07/14/2016 DAGOBERTO AMOR ADALBERTO Ot 250.00 DIAB MILLIE WO COMPL, TYPE II OR UNSPEC TY 07/14/2016 ARENASLAYLA AMOR ADALBERTO Ot 272.4 HYPERLIPIDEMIA NEC/NOS 07/14/2016 ARENAS DO, ADALBERTO Ot 280.8 IRON DEFIC ANEMIA NEC 07/14/2016 DAGOBERTO AMOR, ADALBERTO Ot 401.1 BENIGN HYPERTENSION 07/14/2016 DAGOBERTO AMOR ADALBERTO Ot 414.00 CORON ATHEROSCLER NOS TYPE VESSEL, NATIV 07/14/2016 CASA AMOR ELLE M Ot 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 07/14/2016 ELLE CORMIER DO Ot 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 07/14/2016 CLYDE JEAN, CHRISTOPHER Buchanan Ot 272. 4 HYPERLIPIDEMIA NEC/NOS 07/14/2016 CLYDE JEAN, CHRISTOPHER Buchanan Ot 401. 9 HYPERTENSION NOS 07/14/2016 CLYDE JEAN, CHRISTOPHER Buchanan Ot 414. 00 CORON ATHEROSCLER NOS TYPE VESSEL, NATIV 07/14/2016 CLYDE JEAN, CHRISTOPHER Buchanan Ot 786. 50 CHEST PAIN NOS 07/14/2016 Ot 272.4 HYPE RLIPIDEMIA NEC/NOS 07/14/2016 Ot 401.9 HYPE RTENSION NOS 07/14/2016 Ot 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, NATIV 07/14/2016 Ot 557.9 VASC INSUFF INTEST NOS 07/14/2016 DAGOBERTO AMOR, ADALBERTO Ot 786.2 COUGH 07/14/2016 DAGOBERTO DO, ADALBERTO Ot 250.00 DIAB MILLIE WO COMPL, TYPE II OR UNSPEC TY 07/14/2016 DAGOBERTO AMOR ADALBERTO Ot 272.4 HYPERLIPIDEMIA NEC/NOS 07/14/2016 DAGOBERTO AMOR, ADALBERTO Ot 298.9 PSYCHOSIS NOS 07/14/2016 DAGOBERTO AMOR ADALBERTO Ot 401.9 HYPERTENSION NOS 07/14/2016 DAGOBRETO AMOR ADALBERTO Ot 414.00 CORON ATHEROSCLER NOS TYPE VESSEL, NATIV 07/14/2016 DAGOBERTO AMOR ADALBERTO Ot 443.9 PERIPH VASCULAR DIS NOS 07/14/2016 DAGOBERTO AMOR ADALBERTO Ot 536.8 STOMACH FUNCTION DIS NEC 07/14/2016 DAGOBERTO AMOR ADALBERTO Ot 789.09 ABDOMINAL PAIN, OTHER SPECIFIED SITE 07/14/2016 DEAN JEAN, AILEEN [place] Ot V72.84 EXAM PRE-OPERATIVE NOS 07/14/2016 DEAN JEAN, AILEEN [place] Ot 553.1 UMBILICAL HERNIA 07/14/2016 AILEEN MORAN MD Ot V72.84 EXAM PRE-OPERATIVE NOS 07/14/2016 DAGOBERTO AMOR ADALBERTO Ot 250.00 DIAB MILLIE WO COMPL, TYPE II OR UNSPEC TY 07/14/2016 ARENAS DO, ADALBERTO Ot 272.4 HYPERLIPIDEMIA NEC/NOS 07/14/2016 ARENAS DO, ADALBERTO Ot 280.8 IRON DEFIC ANEMIA NEC 07/14/2016 ARENAS DO, ADALBERTO Ot 401.1 BENIGN HYPERTENSION 07/14/2016 ARENAS DO, ADALBERTO Ot 414.00 CORON ATHEROSCLER NOS TYPE VESSEL, NATIV 07/14/2016 ARENAS DO, ADALBERTO Ot 455.6 HEMORRHOIDS NOS 07/14/2016 ARENAS DO, ADALBERTO Ot 530.81 ESOPHAGEAL REFLUX 07/14/2016 ARENAS DO, ADALBERTO Ot 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 07/14/2016 ARENAS DO, ADALBERTO Ot 722.10 LUMBAR DISC DISPLACEMENT 07/14/2016 DAGOBERTO DO ADALBERTO Ot V58.67 LONG-TERM (CURRENT) USE OF INSULIN 07/14/2016 ARENAS DO, ADALBERTO Ot 250.00 DIAB MILLIE WO COMPL, TYPE II OR UNSPEC TY 07/14/2016 ARENAS DO, ADALBERTO Ot 272.4 HYPERLIPIDEMIA NEC/NOS 07/14/2016 ARENAS DO, ADALBERTO Ot 280.8 IRON DEFIC ANEMIA NEC 07/14/2016 ARENAS DO, ADALBERTO Ot 401.1 BENIGN HYPERTENSION 07/14/2016 ARENAS DO, ADALBERTO Ot 414.00 CORON ATHEROSCLER NOS TYPE VESSEL, NATIV 07/14/2016 ARENAS DO, ADALBERTO Ot 455.3 EXT HEMORRHOID W/O COMPL 07/14/2016 ARENAS DO, ADALBERTO Ot 530.81 ESOPHAGEAL REFLUX 07/14/2016 ARENAS DO, ADALBERTO Ot 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 07/14/2016 ARENAS DO, ADALBERTO Ot 722.10 LUMBAR DISC DISPLACEMENT 07/14/2016 ARENAS DO, ADALBERTO Ot 786.2 COUGH 07/14/2016 ARENAS DO, ADALBERTO Ot 250.00 DIAB MILLIE WO COMPL, TYPE II OR UNSPEC TY 07/14/2016 ARENAS DO, ADALBERTO Ot 272.4 HYPERLIPIDEMIA NEC/NOS 07/14/2016 ARENAS DO, ADALBERTO Ot 280.8 IRON DEFIC ANEMIA NEC 07/14/2016 ARENAS DO, ADALBERTO Ot 401.1 BENIGN HYPERTENSION 07/14/2016 ARENAS DO, ADALBERTO Ot 414.00 CORON ATHEROSCLER NOS TYPE VESSEL, NATIV 07/14/2016 ARENAS DO, ADALBERTO Ot 455.6 HEMORRHOIDS NOS 07/14/2016 ADALBERTO ARENAS DO Ot 530.81 ESOPHAGEAL REFLUX 07/14/2016 ADALBERTO ARENAS DO Ot 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 07/14/2016 ADALBERTO ARENAS DO Ot 722.10 LUMBAR DISC DISPLACEMENT 07/14/2016 ADALBERTO ARENAS DO Ot 786.2 COUGH 07/14/2016 ADALBERTO ARENAS DO Ot 919.4 INSECT BITE NEC 07/14/2016 ADALBERTO ARENAS DO Ot E000.8 OTHER EXTERNAL CAUSE STATUS 07/14/2016 ADALBERTO ARENAS DO Ot E906.4 NONVENOM ARTHROPOD BITE 07/14/2016 ADALBERTO ARENAS DO Ot V58.67 LONG-TERM (CURRENT) USE OF INSULIN 07/14/2016 AILEEN MORAN MD Ot C95.90 LEUKEMIA, UNSPECIFIED NOT HAVING ACHIEVE 07/14/2016 AILEEN MORAN MD Ot Z01.818 ENCOUNTER FOR OTHER PREPROCEDURAL EXAMIN 07/14/2016 AILEEN MORAN MD Ot Z11.2 ENCOUNTER FOR SCREENING FOR OTHER BACTER 07/14/2016 ADALBERTO ARENAS DO Ot 250.00 07/14/2016 ADALBERTO ARENAS DO Ot 786.2 07/14/2016 KAYLEEN LUCAS Ot D50.9 IRON DEFICIENCY ANEMIA, UNSPECIFIED 07/14/2016 ADALBERTO ARENAS DO Ot K75.2 NONSPECIFIC REACTIVE HEPATITIS 07/14/2016 CLYDE JEAN, CHRISTOPHER Buchanan Ot I10 ESSENTIAL (PRIMARY) HYPERTENSION 07/14/2016 CHRISTOPHER TANG MD Ot I25. 10 ATHSCL HEART DISEASE OF [place] CORONARY 07/14/2016 CHRISTOPHER TANG MD Ot I48. 0 PAROXYSMAL ATRIAL FIBRILLATION 07/14/2016 CHRISTOPHER TANG MD Ot I65. 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 2 MIXED HYPERLIPIDEMIA 07/14/2016 CHRISTOPHER TANG MD Ot I10 ESSENTIAL (PRIMARY) HYPERTENSION 07/14/2016 CHRISTOPHER TANG MD Ot I25. 10 ATHSCL HEART DISEASE OF [place] CORONARY 07/14/2016 CHRISTOPHER TANG MD Ot I65. 23 OCCLUSION AND STENOSIS OF [place] 07/14/2016 KAYLEEN LUCAS SOLE LEVELER MACHINE Ot C91.00 ACUTE LYMPHOBLASTIC LEUKEMIA NOT HAVING 07/14/2016 KAYLEEN LUCAS SOLE LEVELER MACHINE Ot Z79.899 OTHER [facility] (CURRENT) DRUG THERAPY 07/14/2016 KAYLEEN LUCAS SOLE LEVELER MACHINE Ot C91.00 ACUTE LYMPHOBLASTIC LEUKEMIA NOT HAVING 07/14/2016 KAYLEEN LUCAS SOLE LEVELER MACHINE Ot D50.9 IRON DEFICIENCY ANEMIA, UNSPECIFIED 07/14/2016 KAYLEEN LUCAS SOLE LEVELER MACHINE Ot Z79.899 OTHER [facility] (CURRENT) DRUG THERAPY 07/14/2016 JORGE CARDENAS Ot C91.00 ACUTE LYMPHOBLASTIC LEUKEMIA NOT HAVING 07/14/2016 JORGE CARDENAS Ot D50.9 IRON DEFICIENCY ANEMIA, UNSPECIFIED 07/14/2016 JORGE CARDENAS Ot Z79.899 OTHER [facility] (CURRENT) DRUG THERAPY 07/14/2016 BASSAM FISCHER Ot E78.2 MIXED HYPERLIPIDEMIA 07/14/2016 BASSAM FISCHER Ot I10 ESSENTIAL (PRIMARY) HYPERTENSION 07/14/2016 BASSAM FISCHER Ot I25.10 ATHSCL HEART DISEASE OF [place] CORONARY 07/14/2016 BASSAM FISCHER Ot I65.23 OCCLUSION AND STENOSIS OF [place] 07/14/2016 BASSAM FISCHER Ot E78.2 MIXED HYPERLIPIDEMIA 07/14/2016 BASSAM FISCHER Ot I10 ESSENTIAL (PRIMARY) HYPERTENSION 07/14/2016 BASSAM FISCHER Ot I25.10 ATHSCL HEART DISEASE OF [place] CORONARY 07/14/2016 BASSAM FISCHER Ot I65.23 OCCLUSION AND STENOSIS OF [place] 07/14/2016 KAYLEEN LUCAS Ot C91.00 ACUTE LYMPHOBLASTIC LEUKEMIA NOT HAVING 07/14/2016 KAYLEEN LUCAS Ot D50.9 IRON DEFICIENCY ANEMIA, UNSPECIFIED 07/14/2016 KAYLEEN LUCAS Ot Z79.899 OTHER CITIZEN PARTICIPATION SPECIALIST (CURRENT) DRUG THERAPY 07/14/2016 BASSAM FISCHER Ot E78.2 MIXED HYPERLIPIDEMIA 07/14/2016 BASSAM FISCHER Ot I10 ESSENTIAL (PRIMARY) HYPERTENSION 07/14/2016 BASSAM FISCHER Ot I25.10 ATHSCL HEART DISEASE OF [place] CORONARY 07/14/2016 BASSAM FISCHER Ot I65.23 OCCLUSION AND STENOSIS OF [place] 07/15/2016 Ot 786.07 WHE EZING 07/15/2016 Ot 272.4 HYPE RLIPIDEMIA NEC/NOS 07/15/2016 Ot 401.9 HYPE RTENSION NOS 07/15/2016 Ot 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, NATIV 07/15/2016 Ot 280.9 IRON DEFIC ANEMIA NOS 07/15/2016 Ot 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, NATIV 07/15/2016 Ot V45.81 AOR TOCORONARY BYPASS 07/15/2016 Ot V58.69 OTH MED,LT,CURRENT USE 07/15/2016 Ot 280.9 IRON DEFIC ANEMIA NOS 07/15/2016 Ot 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, NATIV 07/15/2016 Ot V12.71 PER SELIN HISTORY OF PEPTIC ULCER DISEASE 07/15/2016 Ot V45.81 AOR TOCORONARY BYPASS 07/15/2016 Ot V58.66 YARELIS G-TERM (CURRENT) USE OF ASPIRIN 07/15/2016 Ot V58.67 YARELIS G-TERM (CURRENT) USE OF INSULIN 07/15/2016 Ot V58.69 OTH MED,LT,CURRENT USE 07/15/2016 Ot 250.00 VIPIN B MILLIE WO COMPL, TYPE II OR UNSPEC TY 07/15/2016 Ot 280.9 IRON DEFIC ANEMIA NOS 07/15/2016 Ot 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, NATIV 07/15/2016 Ot V12.71 PER SELIN HISTORY OF PEPTIC ULCER DISEASE 07/15/2016 Ot V45.81 AOR TOCORONARY BYPASS 07/15/2016 Ot V58.66 YARELIS G-TERM (CURRENT) USE OF ASPIRIN 07/15/2016 Ot V58.67 YARELIS G-TERM (CURRENT) USE OF INSULIN 07/15/2016 Ot V58.69 OTH MED,LT,CURRENT USE 07/15/2016 KAYLEEN LUCAS SOLE LEVELER MACHINE Ot 250.00 DIAB MILLIE WO COMPL, TYPE II OR UNSPEC TY 07/15/2016 KAYLEEN LUCAS SOLE LEVELER MACHINE Ot 280.9 IRON DEFIC ANEMIA NOS 07/15/2016 KAYLEEN LUCAS SOLE LEVELER MACHINE Ot 414.00 CORON ATHEROSCLER NOS TYPE VESSEL, NATIV 07/15/2016 KAYLEEN LUCAS SOLE LEVELER MACHINE Ot V12.71 PERSONAL HISTORY OF PEPTIC ULCER DISEASE 07/15/2016 KAYLEEN LUCAS SOLE LEVELER MACHINE Ot V45.81 AORTOCORONARY BYPASS 07/15/2016 KAYLEEN LUCAS SOLE LEVELER MACHINE Ot V58.66 LONG-TERM (CURRENT) USE OF ASPIRIN 07/15/2016 KAYLEEN LUCAS SOLE LEVELER MACHINE Ot V58.67 LONG-TERM (CURRENT) USE OF INSULIN 07/15/2016 KAYLEEN LUCASP Ot V58.69 OTH MED,LT,CURRENT USE 07/15/2016 JORGE CARDENAS Ot 280.9 IRON DEFIC ANEMIA NOS 07/15/2016 ADALBERTO ARENAS DO Ot 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 07/15/2016 JORGE CARDENAS Ot 280.9 IRON DEFIC ANEMIA NOS 07/15/2016 DEAN JEAN, AILEEN S Ot V72.84 EXAM PRE-OPERATIVE NOS 07/15/2016 ADALBERTO ARENAS DO Ot 250.00 DIAB MILLIE WO COMPL, TYPE II OR UNSPEC TY 07/15/2016 ADALBERTO ARENAS DO Ot 285.9 ANEMIA NOS 07/15/2016 ADALBERTO ARENAS DO Ot 786.05 SHORTNESS OF BREATH 07/15/2016 ADALBERTO ARENAS DO Ot 786.50 CHEST PAIN NOS 07/15/2016 ADALBERTO ARENAS DO Ot V58.69 OTH MED,LT,CURRENT USE 07/15/2016 RACHAEL ARENAS DOI Ot V58.83 ENCOUNTER FOR THERAPEUTIC DRUG MONITORIN 07/15/2016 ELLE CORMIER DO Ot 786. 05 SHORTNESS OF BREATH 07/15/2016 ELLE CORMIER DO Ot V45. 81 AORTOCORONARY BYPASS 07/15/2016 DAGOBERTO AMOR ADALBERTO Ot 250.00 DIAB MILLIE WO COMPL, TYPE II OR UNSPEC TY 07/15/2016 ARENAS DO, ADALBERTO Ot 272.4 HYPERLIPIDEMIA NEC/NOS 07/15/2016 DAGOBERTO DO ADALBERTO Ot 280.8 IRON DEFIC ANEMIA NEC 07/15/2016 ARENAS DO, ADALBERTO Ot 401.1 BENIGN HYPERTENSION 07/15/2016 ARENAS DO ADALBERTO Ot V58.69 OT MED,LT,CURRENT USE 07/15/2016 DAGOBERTO DO, ADALBERTO Ot 250.00 DIAB MILLIE WO COMPL, TYPE II OR UNSPEC TY 07/15/2016 DAGOBERTO DO ADALBERTO Ot 272.4 HYPERLIPIDEMIA NEC/NOS 07/15/2016 DAGOBERTO DO ADALBERTO Ot 280.8 IRON DEFIC ANEMIA NEC 07/15/2016 DAGOBERTO AMOR ADALBERTO Ot 401.1 BENIGN HYPERTENSION 07/15/2016 DAGOBERTO AMOR ADALBERTO Ot 414.00 CORON ATHEROSCLER NOS TYPE VESSEL, NATIV 07/15/2016 ELLE CORMIER DO Ot 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 07/15/2016 ELLE CORMIER DO Ot 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 07/15/2016 CLYDE JEAN, CHRISTOPHER Buchanan Ot 272. 4 HYPERLIPIDEMIA NEC/NOS 07/15/2016 CLYDE JEAN, CHRISTOPHER Buchanan Ot 401. 9 HYPERTENSION NOS 07/15/2016 CLYDE JEAN, CHRISTOPHER Buchanan Ot 414. 00 CORON ATHEROSCLER NOS TYPE VESSEL, NATIV 07/15/2016 CHRISTOPHER TANG MD Ot 786. 50 CHEST PAIN NOS 07/15/2016 Ot 272.4 HYPE RLIPIDEMIA NEC/NOS 07/15/2016 Ot 401.9 HYPE RTENSION NOS 07/15/2016 Ot 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, NATIV 07/15/2016 Ot 557.9 VASC INSUFF INTEST NOS 07/15/2016 DAGOBERTO DO, ADALBERTO Ot 786.2 COUGH 07/15/2016 ARENAS DO, ADALBERTO Ot 250.00 DIAB MILLIE WO COMPL, TYPE II OR UNSPEC TY 07/15/2016 DAGOBERTO AMOR ADALBERTO Ot 272.4 HYPERLIPIDEMIA NEC/NOS 07/15/2016 ARENAS DO, ADALBERTO Ot 298.9 PSYCHOSIS NOS 07/15/2016 DAGOBERTO DO, ADALBERTO Ot 401.9 HYPERTENSION NOS 07/15/2016 DAGOBERTO DO ADALBERTO Ot 414.00 CORON ATHEROSCLER NOS TYPE VESSEL, NATIV 07/15/2016 DAGOBERTO AMOR ADALBERTO Ot 443.9 PERIPH VASCULAR DIS NOS 07/15/2016 DAGOBERTO AMOR ADALBERTO Ot 536.8 STOMACH FUNCTION DIS NEC 07/15/2016 DAGOBERTO AMOR ADALBERTO Ot 789.09 ABDOMINAL PAIN, OTHER SPECIFIED SITE 07/15/2016 DEAN JEAN, AILEEN S Ot V72.84 EXAM PRE-OPERATIVE NOS 07/15/2016 DEAN JEAN, AILEEN S Ot 553.1 UMBILICAL HERNIA 07/15/2016 DEAN JEAN, AILEEN S Ot V72.84 EXAM PRE-OPERATIVE NOS 07/15/2016 DAGOBERTO AMOR ADALBERTO Ot 250.00 DIAB MILLIE WO COMPL, TYPE II OR UNSPEC TY 07/15/2016 DAGOBERTO AMOR ADALBERTO Ot 272.4 HYPERLIPIDEMIA NEC/NOS 07/15/2016 DAGOBERTO DO ADALBERTO Ot 280.8 IRON DEFIC ANEMIA NEC 07/15/2016 DAGOBERTO DO ADALBERTO Ot 401.1 BENIGN HYPERTENSION 07/15/2016 DAGOBERTO AMOR ADALBERTO Ot 414.00 CORON ATHEROSCLER NOS TYPE VESSEL, NATIV 07/15/2016 DAGOBERTO DO ADALBERTO Ot 455.6 HEMORRHOIDS NOS 07/15/2016 DAGOBERTO AMOR ADALBERTO Ot 530.81 ESOPHAGEAL REFLUX 07/15/2016 DAGOBERTO AMOR ADALBERTO Ot 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 07/15/2016 DAGOBERTO AMOR ADALBERTO Ot 722.10 LUMBAR DISC DISPLACEMENT 07/15/2016 DAGOBERTO AMOR ADALBERTO Ot V58.67 LONG-TERM (CURRENT) USE OF INSULIN 07/15/2016 DAGOBERTO AMOR ADALBERTO Ot 250.00 DIAB MILLIE WO COMPL, TYPE II OR UNSPEC TY 07/15/2016 DAGOBERTO AMOR ADALBERTO Ot 272.4 HYPERLIPIDEMIA NEC/NOS 07/15/2016 DAGOBERTO DO ADALBERTO Ot 280.8 IRON DEFIC ANEMIA NEC 07/15/2016 DAGOBERTO DO ADALBERTO Ot 401.1 BENIGN HYPERTENSION 07/15/2016 DAGOBERTO AMOR ADALBERTO Ot 414.00 CORON ATHEROSCLER NOS TYPE VESSEL, NATIV 07/15/2016 ARENAS DO, ADALBERTO Ot 455.3 EXT HEMORRHOID W/O COMPL 07/15/2016 ARENAS DO, ADALBERTO Ot 530.81 ESOPHAGEAL REFLUX 07/15/2016 ARENAS DO, ADALBERTO Ot 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 07/15/2016 ARENAS DO, ADALBERTO Ot 722.10 LUMBAR DISC DISPLACEMENT 07/15/2016 ARENAS DO ADALBERTO Ot 786.2 COUGH 07/15/2016 ARENAS DO, ADALBERTO Ot 250.00 DIAB MILLIE WO COMPL, TYPE II OR UNSPEC TY 07/15/2016 ARENAS DO, ADALBERTO Ot 272.4 HYPERLIPIDEMIA NEC/NOS 07/15/2016 ARENAS DO, ADALBERTO Ot 280.8 IRON DEFIC ANEMIA NEC 07/15/2016 ARENAS DO ADALBERTO Ot 401.1 BENIGN HYPERTENSION 07/15/2016 ARENAS DO ADALBERTO Ot 414.00 CORON ATHEROSCLER NOS TYPE VESSEL, NATIV 07/15/2016 ARENAS DO ADALBERTO Ot 455.6 HEMORRHOIDS NOS 07/15/2016 DAGOBERTO DO ADALBERTO Ot 530.81 ESOPHAGEAL REFLUX 07/15/2016 ARENAS DO, ADALBERTO Ot 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 07/15/2016 ARENAS DO, ADALBERTO Ot 722.10 LUMBAR DISC DISPLACEMENT 07/15/2016 DAGOBERTO DO ADALBERTO Ot 786.2 COUGH 07/15/2016 DAGOBERTO AMOR ADALBERTO Ot 919.4 INSECT BITE NEC 07/15/2016 DAGOBERTO DO ADALBERTO Ot E000.8 OTHER EXTERNAL CAUSE STATUS 07/15/2016 DAGOBERTO AMOR ADALBERTO Ot E906.4 NONVENOM ARTHROPOD BITE 07/15/2016 DAGOBERTO AMOR ADALBERTO Ot V58.67 LONG-TERM (CURRENT) USE OF INSULIN 07/15/2016 IALEEN MORAN MD Ot C95.90 LEUKEMIA, UNSPECIFIED NOT HAVING ACHIEVE 07/15/2016 AILEEN MORAN MD Ot Z01.818 ENCOUNTER FOR OTHER PREPROCEDURAL EXAMIN 07/15/2016 AILEEN MORAN MD Ot Z11.2 ENCOUNTER FOR SCREENING FOR OTHER BACTER 07/15/2016 DAGOBERTO AMOR ADALBERTO Ot 250.00 07/15/2016 DAGOBERTO AMOR ADALBERTO Ot 786.2 07/15/2016 KAYLEEN LUCAS Ot D50.9 IRON DEFICIENCY ANEMIA, UNSPECIFIED 07/15/2016 ARENASLAYLA AMOR ADALBERTO Ot K75.2 NONSPECIFIC REACTIVE HEPATITIS 07/15/2016 CHRISTOPHER TANG MD Ot I10 ESSENTIAL (PRIMARY) HYPERTENSION 07/15/2016 CHRISTOPHER TANG MD Ot I25. 10 ATHSCL HEART DISEASE OF [place] CORONARY 07/15/2016 CHRISTOPHER TANG MD Ot I48. 0 PAROXYSMAL ATRIAL FIBRILLATION 07/15/2016 CHRISTOPHER TANG MD Ot I65. 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 2 MIXED HYPERLIPIDEMIA 07/15/2016 CHRISTOPHER TANG MD Ot I10 ESSENTIAL (PRIMARY) HYPERTENSION 07/15/2016 CHRISTOPHER TANG MD Ot I25. 10 ATHSCL HEART DISEASE OF [place] CORONARY 07/15/2016 CHRISTOPHER TANG MD Ot I65. 23 OCCLUSION AND STENOSIS OF [place] 07/15/2016 KAYLEEN LUCASP Ot C91.00 ACUTE LYMPHOBLASTIC LEUKEMIA NOT HAVING 07/15/2016 KAYLEEN LUCAS Ot Z79.899 OTHER [facility] (CURRENT) DRUG THERAPY 07/15/2016 KAYLEEN LUCAS Ot C91.00 ACUTE LYMPHOBLASTIC LEUKEMIA NOT HAVING 07/15/2016 KAYLEEN LUCAS SOLE LEVELER MACHINE Ot D50.9 IRON DEFICIENCY ANEMIA, UNSPECIFIED 07/15/2016 KAYLEEN LUCASP Ot Z79.899 OTHER [facility] (CURRENT) DRUG THERAPY 07/15/2016 THERESA JORGE Presley Ot C91.00 ACUTE LYMPHOBLASTIC LEUKEMIA NOT HAVING 07/15/2016 JORGE CARDENAS Ot D50.9 IRON DEFICIENCY ANEMIA, UNSPECIFIED 07/15/2016 JORGE CARDENAS Ot Z79.899 OTHER [facility] (CURRENT) DRUG THERAPY 07/15/2016 ANGUS DEJESUS, BASSAM K Ot E78.2 MIXED HYPERLIPIDEMIA 07/15/2016 ANGUS DEJESUS, BASSAM K Ot I10 ESSENTIAL (PRIMARY) HYPERTENSION 07/15/2016 ANGUS DEJESUS, BASSAM K Ot I25.10 ATHSCL HEART DISEASE OF [place] CORONARY 07/15/2016 JIMDOV DEJESUS, BASSAM K Ot I65.23 OCCLUSION AND STENOSIS OF [place] 07/15/2016 JIMDOV DEJESUS, BASSAM K Ot E78.2 MIXED HYPERLIPIDEMIA 07/15/2016 ANGUS DEJESUS, BASSAM K Ot I10 ESSENTIAL (PRIMARY) HYPERTENSION 07/15/2016 JG FISCHERDITH K Ot I25.10 ATHSCL HEART DISEASE OF [place] CORONARY 07/15/2016 BRANDI FISCHERTH K Ot I65.23 OCCLUSION AND STENOSIS OF [place] 07/15/2016 KAYLEEN LUCAS Ot C91.00 ACUTE LYMPHOBLASTIC LEUKEMIA NOT HAVING 07/15/2016 KAYLEEN LUCAS SOLE LEVELER MACHINE Ot D50.9 IRON DEFICIENCY ANEMIA, UNSPECIFIED 07/15/2016 KAYLEEN LUCAS SOLE LEVELER MACHINE Ot Z79.899 OTHER [facility] (CURRENT) DRUG THERAPY 07/15/2016 BASSAM FISCHER K Ot E78.2 MIXED HYPERLIPIDEMIA 07/15/2016 ANGUS DEJESUS, BASSAM K Ot I10 ESSENTIAL (PRIMARY) HYPERTENSION 07/15/2016 ANGUS DEJESUS BASSAM K Ot I25.10 ATHSCL HEART DISEASE OF [place] CORONARY 07/15/2016 BASSAM FISCHER K Ot I65.23 OCCLUSION AND STENOSIS OF [place] 07/20/2016 JORGE CARDENAS Ot C91.00 ACUTE LYMPHOBLASTIC LEUKEMIA NOT HAVING 07/20/2016 JORGE CARDENAS Ot D50.9 IRON DEFICIENCY ANEMIA, UNSPECIFIED 07/20/2016 JORGE CARDENAS Ot Z79.899 OTHER [facility] (CURRENT) DRUG THERAPY 07/23/2016 JORGE CARDENAS Ot C91.00 ACUTE LYMPHOBLASTIC LEUKEMIA NOT HAVING 07/23/2016 JORGE CARDENAS Ot D50.9 IRON DEFICIENCY ANEMIA, UNSPECIFIED 07/23/2016 JORGE CARDENAS N Ot Z79.899 OTHER [employer] (CURRENT) DRUG THERAPY 07/29/2016 JORGE CARDENAS Ot C91.00 ACUTE LYMPHOBLASTIC LEUKEMIA NOT HAVING 07/29/2016 JORGE CARDENAS N Ot D50.9 IRON DEFICIENCY ANEMIA, UNSPECIFIED 07/29/2016 JORGE CARDENAS Ot Z79.899 OTHER CIT[employer]EN [employer] (CURRENT) DRUG THERAPY 08/04/2016 BASSAM FISCHER Ot E78.2 MIXED HYPERLIPIDEMIA 08/04/2016 BASSAM FISCHER Ot I10 ESSENTIAL (PRIMARY) HYPERTENSION 08/04/2016 BASSAM FISCHER Ot I25.10 ATHSCL HEART DISEASE OF [place] CORONARY 08/04/2016 BASSAM FISCHER Ot I65.23 OCCLUSION AND STENOSIS OF [place] 08/04/2016 BASSAM FISCHER Ot E78.2 MIXED HYPERLIPIDEMIA 08/04/2016 BASSAM FISCHER Ot I10 ESSENTIAL (PRIMARY) HYPERTENSION 08/04/2016 BASSAM FISCHER Ot I25.10 ATHSCL HEART DISEASE OF [place] CORONARY 08/04/2016 BASSAM FISCHER K Ot I65.23 OCCLUSION AND STENOSIS OF [place] 08/12/2016 DAGOBERTO AMOR ADALBERTO Ot E11.9 TYPE 2 DIABETES MELLITUS WITHOUT COMPLIC 08/12/2016 ADALBERTO ARENAS DO Ot E78.5 HYPERLIPIDEMIA, UNSPECIFIED 08/13/2016 BASSAM FISCHER Ot E78.2 MIXED HYPERLIPIDEMIA 08/13/2016 BASSAM FISCHER Ot I10 ESSENTIAL (PRIMARY) HYPERTENSION 08/13/2016 BASSAM FISCHER Ot I25.10 ATHSCL HEART DISEASE OF [place] CORONARY 08/13/2016 BASSAM FISCHER K Ot I65.23 OCCLUSION AND STENOSIS OF [place] 08/13/2016 BASSAM FISCHER Ot E78.2 MIXED HYPERLIPIDEMIA 08/13/2016 BASSAM FISCHER Ot I10 ESSENTIAL (PRIMARY) HYPERTENSION 08/13/2016 BASSAM FISCHER Ot I25.10 ATHSCL HEART DISEASE OF [place] CORONARY 08/13/2016 BASSAM FISCHER Ot I65.23 OCCLUSION AND STENOSIS OF [place] 08/28/2016 DAGOBERTO DO ADALBERTO Ot E11.9 TYPE 2 DIABETES MELLITUS WITHOUT COMPLIC 08/28/2016 ARENAS DO ADALBERTO Ot E78.5 HYPERLIPIDEMIA, UNSPECIFIED 08/28/2016 ARENAS DO ADALBERTO Ot E11.9 TYPE 2 DIABETES MELLITUS WITHOUT COMPLIC 08/28/2016 ARENAS DO ADALBERTO Ot E78.5 HYPERLIPIDEMIA, UNSPECIFIED 08/28/2016 ARENAS DO ADALBERTO Ot R53.83 OTHER FATIGUE 08/29/2016 DAGOBERTO DO ADALBERTO Ot C91.01 ACUTE LYMPHOBLASTIC LEUKEMIA, IN REMISSI 08/29/2016 DAGOBERTO AMOR ADALBERTO Ot E11.42 TYPE 2 DIABETES MELLITUS WITH DIABETIC P 08/29/2016 DAGOBERTO DO ADALBERTO Ot E11.65 TYPE 2 DIABETES MELLITUS WITH HYPERGLYCE 08/29/2016 DAGOBERTO DO ADALBERTO Ot 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 08/29/2016 DAGOBERTO DO ADALBERTO Ot I11.0 HYPERTENSIVE HEART DISEASE WITH HEART FA 08/29/2016 DAGOBERTO DO ADALBERTO Ot I21.4 NON-ST ELEVATION (NSTEMI) MYOCARDIAL INF 08/29/2016 DAGOBERTO AMOR ADALBERTO Ot I25.10 ATHSCL HEART DISEASE OF [place] CORONARY 08/29/2016 DAGOBERTO AMOR ADALBERTO Ot I25.2 OLD MYOCARDIAL INFARCTION 08/29/2016 DAGOBERTO DO ADALBERTO Ot I25.5 ISCHEMIC CARDIOMYOPATHY 08/29/2016 DAGOBERTO DO ADALBERTO Ot I42.9 CARDIOMYOPATHY, UNSPECIFIED 08/29/2016 DAGOBERTO DO ADALBERTO Ot I50.22 CHRONIC SYSTOLIC (CONGESTIVE) HEART FAIL 08/29/2016 DAGOBERTO DO ADALBERTO Ot I65.23 OCCLUSION AND STENOSIS OF BILATERAL [place] 08/29/2016 DAGOBERTO DO ADALBERTO Ot J44.9 CHRONIC OBSTRUCTIVE PULMONARY DISEASE, U 08/29/2016 DAGOBERTO DO ADALBERTO Ot K21.9 GASTRO-ESOPHAGEAL REFLUX DISEASE WITHOUT 08/29/2016 ADALBERTO ARENAS DO Ot T38.0X 5A ADVERSE EFFECT OF GLUCOCORT/SYNTH ANALOG 08/29/2016 ADALBERTO ARENAS DO Ot T45.1X 5A ADVERSE EFFECT OF ANTINEOPLASTIC AND IMM 08/29/2016 ADALBERTO ARENAS DO Ot 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 08/29/2016 ADALBERTO ARENAS DO Ot Z85.82 8 PERSONAL HISTORY OF OTHER MALIGNANT NEOP 08/29/2016 ADALBERTO ARENAS DO Ot Z86.71 8 PERSONAL HISTORY OF OTHER VENOUS THROMBO 08/29/2016 ADALBERTO ARENAS DO Ot Z87.89 1 PERSONAL HISTORY OF NICOTINE DEPENDENCE 08/29/2016 ADALBERTO ARENAS DO Ot Z95.1 PRESENCE OF AORTOCORONARY BYPASS GRAFT 08/29/2016 ADALBERTO ARENAS DO Ot C91.01 ACUTE LYMPHOBLASTIC LEUKEMIA, IN REMISSI 08/29/2016 ADALBERTO ARENAS DO Ot E11.42 TYPE 2 DIABETES MELLITUS WITH DIABETIC P 08/29/2016 ADALBERTO ARENAS DO Ot E11.65 TYPE 2 DIABETES MELLITUS WITH HYPERGLYCE 08/29/2016 ADALBERTO ARENAS DO Ot 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 08/29/2016 ADALBERTO ARENAS DO Ot I11.0 HYPERTENSIVE HEART DISEASE WITH HEART FA 08/29/2016 ADALBERTO ARENAS DO Ot I21.4 NON-ST ELEVATION (NSTEMI) MYOCARDIAL INF 08/29/2016 ADALBERTO ARENAS DO Ot I25.10 ATHSCL HEART DISEASE OF [place] CORONARY 08/29/2016 ADALBERTO ARENAS DO Ot I25.2 OLD MYOCARDIAL INFARCTION 08/29/2016 ADALBERTO ARENAS DO Ot I25.5 ISCHEMIC CARDIOMYOPATHY 08/29/2016 ADALBERTO ARENAS DO Ot I42.9 CARDIOMYOPATHY, UNSPECIFIED 08/29/2016 ADALBERTO ARENAS DO Ot I50.22 CHRONIC SYSTOLIC (CONGESTIVE) HEART FAIL 08/29/2016 ADALBERTO ARENAS DO Ot I65.23 OCCLUSION AND STENOSIS OF BILATERAL [place] 08/29/2016 ADALBERTO ARENAS DO Ot J44.9 CHRONIC OBSTRUCTIVE PULMONARY DISEASE, U 08/29/2016 ADALBERTO ARENAS DO Ot K21.9 GASTRO-ESOPHAGEAL REFLUX DISEASE WITHOUT 08/29/2016 ADALBERTO ARENAS DO Ot T38.0X 5A ADVERSE EFFECT OF GLUCOCORT/SYNTH ANALOG 08/29/2016 DAGOBERTO RACHAEL AMORI Ot T45.1X 5A ADVERSE EFFECT OF ANTINEOPLASTIC AND IMM 08/29/2016 DAGOBERTO RACHAEL AMORI Ot Z79.4 [facility] (CURRENT) USE OF INSULIN 08/29/2016 DAGOBERTO AMOR ADALBERTO Ot Z85.82 8 PERSONAL HISTORY OF OTHER MALIGNANT NEOP 08/29/2016 ARENAS DO ADALBERTO Ot Z86.71 8 PERSONAL HISTORY OF OTHER VENOUS THROMBO 08/29/2016 DAGOBERTO AMOR ADALBERTO Ot Z87.89 1 PERSONAL HISTORY OF NICOTINE DEPENDENCE 08/29/2016 ARENASLAYLA AMOR ADALBERTO Ot Z95.1 PRESENCE OF AORTOCORONARY BYPASS GRAFT 09/08/2016 ARENASLAYLA AMOR ADALBERTO Ot E11.9 TYPE 2 DIABETES MELLITUS WITHOUT COMPLIC 09/08/2016 ARENAS DO ADALBERTO Ot E78.5 HYPERLIPIDEMIA, UNSPECIFIED 09/08/2016 ARENAS DO ADALBERTO Ot R53.83 OTHER FATIGUE 09/08/2016 ARENAS DO ADALBERTO Ot E11.9 TYPE 2 DIABETES MELLITUS WITHOUT COMPLIC 09/08/2016 ARENAS DO ADALBERTO Ot E78.5 HYPERLIPIDEMIA, UNSPECIFIED 09/08/2016 ARENAS DO, ADALBERTO Ot R53.83 OTHER FATIGUE 09/08/2016 ARENAS DO, ADALBERTO Ot E11.9 TYPE 2 DIABETES MELLITUS WITHOUT COMPLIC 09/08/2016 ARENAS DO, ADALBERTO Ot E78.5 HYPERLIPIDEMIA, UNSPECIFIED 09/08/2016 ARENAS DO, ADALBERTO Ot R53.83 OTHER FATIGUE 09/08/2016 ARENAS DO, ADALBERTO Ot E11.9 TYPE 2 DIABETES MELLITUS WITHOUT COMPLIC 09/08/2016 RAENAS DO, ADALBERTO Ot E78.5 HYPERLIPIDEMIA, UNSPECIFIED 09/08/2016 ARENAS DO, ADALBERTO Ot R53.83 OTHER FATIGUE 09/09/2016 ARENAS DO, ADALBERTO Ot E11.9 TYPE 2 DIABETES MELLITUS WITHOUT COMPLIC 09/09/2016 ARENAS DO, ADALBERTO Ot E78.5 HYPERLIPIDEMIA, UNSPECIFIED 09/09/2016 ARENAS DO, ADALBERTO Ot R53.83 OTHER FATIGUE 09/09/2016 ARENAS DO, ADALBERTO Ot E11.9 TYPE 2 DIABETES MELLITUS WITHOUT COMPLIC 09/09/2016 ARENAS DO, ADALBERTO Ot E78.5 HYPERLIPIDEMIA, UNSPECIFIED 09/09/2016 ARENAS DO, ADALBERTO Ot R53.83 OTHER FATIGUE 09/16/2016 ADALBERTO ARENAS DO Ot C95.91 LEUKEMIA, UNSPECIFIED, IN REMISSION 09/16/2016 ADALBERTO ARENAS DO Ot E11.9 TYPE 2 DIABETES MELLITUS WITHOUT COMPLIC 09/16/2016 ADALBERTO ARENAS DO Ot E78.5 HYPERLIPIDEMIA, UNSPECIFIED 09/16/2016 ADALBERTO ARENAS DO Ot E86.0 DEHYDRATION 09/16/2016 ADALBERTO ARENAS DO Ot I21.4 NON-ST ELEVATION (NSTEMI) MYOCARDIAL INF 09/16/2016 ADALBERTO ARENAS DO Ot I25.10 ATHSCL HEART DISEASE OF [place] CORONARY 09/16/2016 ADALBERTO ARENAS DO Ot I48.91 UNSPECIFIED ATRIAL FIBRILLATION 09/16/2016 ADALBERTO ARENAS DO Ot J44.9 CHRONIC OBSTRUCTIVE PULMONARY DISEASE, U 09/16/2016 ADALBERTO ARENAS DO Ot K21.9 GASTRO-ESOPHAGEAL REFLUX DISEASE WITHOUT 09/16/2016 ADALBERTO ARENAS DO Ot K26.9 DUODENAL ULCER, UNSP ACUTE OR CHRONIC 09/16/2016 ADALBERTO ARENAS DO Ot K52.9 NONINFECTIVE GASTROENTERITIS AND COLITIS 09/16/2016 ADALBERTO ARENAS DO Ot Z79.4 [facility] (CURRENT) USE OF INSULIN 09/16/2016 ADALBERTO ARENAS DO Ot Z95.1 PRESENCE OF AORTOCORONARY BYPASS GRAFT 09/16/2016 JORGE CARDENAS Ot C91.00 ACUTE LYMPHOBLASTIC LEUKEMIA NOT HAVING 09/16/2016 JORGE CARDENAS Ot D50.9 IRON DEFICIENCY ANEMIA, UNSPECIFIED 09/16/2016 JORGE CARDENAS Ot Z79.899 OTHER [facility] (CURRENT) DRUG THERAPY 09/16/2016 JORGE CARDENAS Ot C91.00 ACUTE LYMPHOBLASTIC LEUKEMIA NOT HAVING 09/16/2016 JORGE CARDENAS Ot D50.9 IRON DEFICIENCY ANEMIA, UNSPECIFIED 09/16/2016 JORGE CARDENAS Ot Z79.899 OTHER [facility] (CURRENT) DRUG THERAPY 09/16/2016 CHRISTOPHER TANG MD Ot E11. 9 TYPE 2 DIABETES MELLITUS WITHOUT COMPLIC 09/16/2016 CHRISTOPHER TANG MD Ot E78. 5 HYPERLIPIDEMIA, UNSPECIFIED 09/16/2016 CHRISTOPHER TANG MD Ot I10 ESSENTIAL (PRIMARY) HYPERTENSION 09/16/2016 CLYDE MD, BASHAR J Ot I25. 10 ATHSCL HEART DISEASE OF [place] CORONARY 09/16/2016 CHRISTOPHER TANG MD Ot I25. 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 22 CHRONIC SYSTOLIC (CONGESTIVE) HEART FAIL 09/16/2016 CHRISTOPHER TANG MD Ot Z79.899 OTHER CITIZEN PARTICIPATION SPECIALIST (CURRENT) DRUG THERAPY 09/16/2016 CHRISTOPHER TANG MD Ot Z87.891 PERSONAL HISTORY OF NICOTINE DEPENDENCE 09/16/2016 CHRISTOPHER TANG MD Ot Z92. 21 PERSONAL HISTORY OF ANTINEOPLASTIC CHEMO 09/16/2016 CHRISTOPHER TANG MD Ot Z95. 1 PRESENCE OF AORTOCORONARY BYPASS GRAFT 10/01/2016 CHRISTOPHER TANG MD Ot E11. 9 TYPE 2 DIABETES MELLITUS WITHOUT COMPLIC 10/01/2016 CHRISTOPHER TANG MD Ot E78. 5 HYPERLIPIDEMIA, UNSPECIFIED 10/01/2016 CHRISTOPHER TANG MD Ot I10 ESSENTIAL (PRIMARY) HYPERTENSION 10/01/2016 CHRISTOPHER TANG MD Ot I25. 10 ATHSCL HEART DISEASE OF [place] CORONARY 10/01/2016 CHRISTOPHER TANG MD Ot I25. 2 OLD MYOCARDIAL INFARCTION 10/01/2016 CHRISTOPHER TANG MD Ot I25. 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 22 CHRONIC SYSTOLIC (CONGESTIVE) HEART FAIL 10/01/2016 CHRISTOPHER TANG MD Ot Z79.899 OTHER [facility] (CURRENT) DRUG THERAPY 10/01/2016 CHRISTOPHER TANG MD Ot Z87.891 PERSONAL HISTORY OF NICOTINE DEPENDENCE 10/01/2016 CHRISTOPHER TANG MD Ot Z92. 21 PERSONAL HISTORY OF ANTINEOPLASTIC CHEMO 10/01/2016 CHRISTOPHER TANG MD Ot Z95. 1 PRESENCE OF AORTOCORONARY BYPASS GRAFT 10/20/2016 JORGE CARDENAS Ot C91.00 ACUTE LYMPHOBLASTIC LEUKEMIA NOT HAVING 10/20/2016 JORGE CARDENAS Ot D50.9 IRON DEFICIENCY ANEMIA, UNSPECIFIED 10/20/2016 JORGE CARDENAS Ot Z51.11 ENCOUNTER FOR ANTINEOPLASTIC CHEMOTHERAP 10/20/2016 JORGE CARDENAS Ot Z79.899 OTHER CITIZEN PARTICIPATION SPECIALIST (CURRENT) DRUG THERAPY 10/21/2016 JORGE CARDENAS Ot C91.00 ACUTE LYMPHOBLASTIC LEUKEMIA NOT HAVING 10/21/2016 JORGE CARDENAS Ot D50.9 IRON DEFICIENCY ANEMIA, UNSPECIFIED 10/21/2016 JORGE CARDENAS Ot Z79.899 OTHER CITIZEN PARTICIPATION SPECIALIST (CURRENT) DRUG THERAPY 10/22/2016 JORGE CARDENAS Fernandez Ot C91.00 ACUTE LYMPHOBLASTIC LEUKEMIA NOT HAVING 10/22/2016 JORGE CARDENAS Ot D50.9 IRON DEFICIENCY ANEMIA, UNSPECIFIED 10/22/2016 JORGE CARDENAS Ot Z79.899 OTHER [facility] (CURRENT) DRUG THERAPY 12/04/2016 ADALBERTO ARENAS DO Ot C95.01 ACUTE LEUKEMIA OF UNSPECIFIED CELL TYPE, 12/04/2016 ADALBERTO ARENAS DO Ot E11.65 TYPE 2 DIABETES MELLITUS WITH HYPERGLYCE 12/04/2016 ADALBERTO ARENAS DO Ot E78.5 HYPERLIPIDEMIA, UNSPECIFIED 12/04/2016 ADALBERTO ARENAS DO Ot E86.0 DEHYDRATION 12/04/2016 ADALBERTO ARENAS DO Ot I10 ESSENTIAL (PRIMARY) HYPERTENSION 12/04/2016 ADALBERTO ARENAS DO Ot I25.10 ATHSCL HEART DISEASE OF [place] CORONARY 12/04/2016 ADALBERTO ARENAS DO Ot I95.9 HYPOTENSION, UNSPECIFIED 12/04/2016 ADALBERTO ARENAS DO Ot J11.1 FLU DUE TO UNIDENTIFIED INFLUENZA VIRUS 12/04/2016 ADALBERTO ARENAS DO Ot J44.1 CHRONIC OBSTRUCTIVE PULMONARY DISEASE W 12/04/2016 ADALBERTO ARENAS DO Ot T38.0X 5A ADVERSE EFFECT OF GLUCOCORT/SYNTH ANALOG 12/04/2016 ADALBERTO ARENAS DO Ot Z79.4 [facility] (CURRENT) USE OF INSULIN 12/04/2016 ADALBERTO ARENAS DO Ot Z95.1 PRESENCE OF AORTOCORONARY BYPASS GRAFT 12/10/2016 ADALBERTO ARENAS DO Ot A41.9 SEPSIS, UNSPECIFIED ORGANISM 12/10/2016 ADALBERTO AREANS DO Ot C91.01 ACUTE LYMPHOBLASTIC LEUKEMIA, IN REMISSI 12/10/2016 ADALBERTO ARENAS DO Ot D64.9 ANEMIA, UNSPECIFIED 12/10/2016 ARENAS DO, ADALBERTO Ot E11.40 TYPE 2 DIABETES MELLITUS WITH DIABETIC N 12/10/2016 RACHAEL ARENAS DOI Ot E78.00 PURE HYPERCHOLESTEROLEMIA, UNSPECIFIED 12/10/2016 RACHALE ARENAS DOI Ot I11.0 HYPERTENSIVE HEART DISEASE WITH HEART FA 12/10/2016 RACHAEL ARENAS DOI Ot I25.10 ATHSCL HEART DISEASE OF [place] CORONARY 12/10/2016 RACHAEL ARENAS DOI Ot I25.2 OLD MYOCARDIAL INFARCTION 12/10/2016 RACHAEL ARENAS DOI Ot I25.5 ISCHEMIC CARDIOMYOPATHY 12/10/2016 RACHAEL ARENAS DOI Ot I48.91 UNSPECIFIED ATRIAL FIBRILLATION 12/10/2016 RACHAEL ARENAS DOI Ot I50.22 CHRONIC SYSTOLIC (CONGESTIVE) HEART FAIL 12/10/2016 RACHAEL ARENAS DOI Ot J18.9 PNEUMONIA, UNSPECIFIED ORGANISM 12/10/2016 RACHAEL ARENAS DOI Ot J44.0 CHRONIC OBSTRUCTIVE PULMON DISEASE W ACU 12/10/2016 RACHAEL ARENAS DOI Ot K21.9 GASTRO-ESOPHAGEAL REFLUX DISEASE WITHOUT 12/10/2016 ADALBERTO ARENAS DO Ot R19.7 DIARRHEA, UNSPECIFIED 12/10/2016 RACHAEL ARENAS DOI Ot R63.0 ANOREXIA 12/10/2016 ADALBERTO ARENAS DO Ot T45.1X 5A ADVERSE EFFECT OF ANTINEOPLASTIC AND IMM 12/10/2016 ADALBERTO ARENAS DO Ot Z79.4 [facility] (CURRENT) USE OF INSULIN 12/10/2016 RACHAEL ARENAS DOI Ot Z86.19 PERSONAL HISTORY OF OTHER INFECTIOUS AND 12/10/2016 ADALBERTO ARENAS DO Ot Z87.89 1 PERSONAL HISTORY OF NICOTINE DEPENDENCE 12/10/2016 ADALBERTO ARENAS DO Ot Z95.1 PRESENCE OF AORTOCORONARY BYPASS GRAFT 12/10/2016 RACHAEL ARENAS DOI Ot A41.9 SEPSIS, UNSPECIFIED ORGANISM 12/10/2016 ADALBERTO ARENAS DO Ot C91.01 ACUTE LYMPHOBLASTIC LEUKEMIA, IN REMISSI 12/10/2016 RACHAEL ARENAS DOI Ot D64.9 ANEMIA, UNSPECIFIED 12/10/2016 ADALBERTO ARENAS DO Ot E11.40 TYPE 2 DIABETES MELLITUS WITH DIABETIC N 12/10/2016 RACHAEL ARENAS DOI Ot E78.00 PURE HYPERCHOLESTEROLEMIA, UNSPECIFIED 12/10/2016 RACHAEL ARENAS DOI Ot I11.0 HYPERTENSIVE HEART DISEASE WITH HEART FA 12/10/2016 RACHAEL ARENAS DOI Ot I25.10 ATHSCL HEART DISEASE OF [place] CORONARY 12/10/2016 RACHAEL ARENAS DOI Ot I25.2 OLD MYOCARDIAL INFARCTION 12/10/2016 RACHAEL ARENAS DOI Ot I25.5 ISCHEMIC CARDIOMYOPATHY 12/10/2016 RACHAEL ARENAS DOI Ot I48.91 UNSPECIFIED ATRIAL FIBRILLATION 12/10/2016 RACHAEL ARENAS DOI Ot I50.22 CHRONIC SYSTOLIC (CONGESTIVE) HEART FAIL 12/10/2016 RACHAEL ARENAS DOI Ot J18.9 PNEUMONIA, UNSPECIFIED ORGANISM 12/10/2016 RACHAEL ARENAS DOI Ot J44.0 CHRONIC OBSTRUCTIVE PULMON DISEASE W ACU 12/10/2016 RACHAEL ARENAS DOI Ot K21.9 GASTRO-ESOPHAGEAL REFLUX DISEASE WITHOUT 12/10/2016 RACHAEL ARENAS DOI Ot R19.7 DIARRHEA, UNSPECIFIED 12/10/2016 ADALBERTO ARENAS DO Ot R63.0 ANOREXIA 12/10/2016 ADALBERTO ARENAS DO Ot T45.1X 5A ADVERSE EFFECT OF ANTINEOPLASTIC AND IMM 12/10/2016 ADALBERTO ARENAS DO Ot 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 12/10/2016 ADALBERTO ARENAS DO Ot Z86.19 PERSONAL HISTORY OF OTHER INFECTIOUS AND 12/10/2016 ADALBERTO ARENAS DO Ot Z87.89 1 PERSONAL HISTORY OF NICOTINE DEPENDENCE 12/10/2016 ADALBERTO ARENAS DO Ot Z95.1 PRESENCE OF AORTOCORONARY BYPASS GRAFT 12/10/2016 ADALBERTO ARENAS DO Ot A41.9 SEPSIS, UNSPECIFIED ORGANISM 12/10/2016 ADALBERTO ARENAS DO Ot C91.01 ACUTE LYMPHOBLASTIC LEUKEMIA, IN REMISSI 12/10/2016 RACHAEL ARENAS DOI Ot D64.9 ANEMIA, UNSPECIFIED 12/10/2016 ADALBERTO ARENAS DO Ot E11.40 TYPE 2 DIABETES MELLITUS WITH DIABETIC N 12/10/2016 ADALBERTO ARENAS DO Ot E78.00 PURE HYPERCHOLESTEROLEMIA, UNSPECIFIED 12/10/2016 RACHAEL ARENAS DOI Ot I11.0 HYPERTENSIVE HEART DISEASE WITH HEART FA 12/10/2016 RACHAEL ARENAS DOI Ot I25.10 ATHSCL HEART DISEASE OF [place] CORONARY 12/10/2016 RACHAEL ARENAS DOI Ot I25.2 OLD MYOCARDIAL INFARCTION 12/10/2016 ADALBERTO ARENAS DO Ot I25.5 ISCHEMIC CARDIOMYOPATHY 12/10/2016 ADALBERTO ARENAS DO Ot I48.91 UNSPECIFIED ATRIAL FIBRILLATION 12/10/2016 ADALBERTO ARENAS DO Ot I50.22 CHRONIC SYSTOLIC (CONGESTIVE) HEART FAIL 12/10/2016 ADALBERTO ARENAS DO Ot J18.9 PNEUMONIA, UNSPECIFIED ORGANISM 12/10/2016 ADALBERTO ARENAS DO Ot J44.0 CHRONIC OBSTRUCTIVE PULMON DISEASE W ACU 12/10/2016 ADALBERTO ARENAS DO Ot K21.9 GASTRO-ESOPHAGEAL REFLUX DISEASE WITHOUT 12/10/2016 ADALBERTO ARENAS DO Ot R19.7 DIARRHEA, UNSPECIFIED 12/10/2016 ADALBERTO ARENAS DO Ot R63.0 ANOREXIA 12/10/2016 ADALBERTO ARENAS DO Ot T45.1X 5A ADVERSE EFFECT OF ANTINEOPLASTIC AND IMM 12/10/2016 ADALBERTO ARENAS DO Ot Z79.4 [facility] (CURRENT) USE OF INSULIN 12/10/2016 ADALBERTO ARENAS DO Ot Z86.19 PERSONAL HISTORY OF OTHER INFECTIOUS AND 12/10/2016 ADALBERTO ARENAS DO Ot Z87.89 1 PERSONAL HISTORY OF NICOTINE DEPENDENCE 12/10/2016 ADALBERTO ARENAS DO Ot Z95.1 PRESENCE OF AORTOCORONARY BYPASS GRAFT 12/10/2016 ADALBERTO ARENAS DO Ot A40.9 STREPTOCOCCAL SEPSIS, UNSPECIFIED 12/10/2016 ADALBERTO ARENAS DO Ot A41.9 SEPSIS, UNSPECIFIED ORGANISM 12/10/2016 ADALBERTO ARENAS DO Ot C91.01 ACUTE LYMPHOBLASTIC LEUKEMIA, IN REMISSI 12/10/2016 ADALBERTO ARENAS DO Ot D64.9 ANEMIA, UNSPECIFIED 12/10/2016 ADALBERTO ARENAS DO Ot D69.6 THROMBOCYTOPENIA, UNSPECIFIED 12/10/2016 ADALBERTO ARENAS DO Ot E11.40 TYPE 2 DIABETES MELLITUS WITH DIABETIC N 12/10/2016 ADALBERTO ARENAS DO Ot E78.00 PURE HYPERCHOLESTEROLEMIA, UNSPECIFIED 12/10/2016 RACHAEL ARENAS DOI Ot E78.5 HYPERLIPIDEMIA, UNSPECIFIED 12/10/2016 ADALBERTO ARENAS DO Ot E87.2 ACIDOSIS 12/10/2016 ADALBERTO ARENAS DO Ot I11.0 HYPERTENSIVE HEART DISEASE WITH HEART FA 12/10/2016 ADALBERTO ARENAS DO Ot I25.10 ATHSCL HEART DISEASE OF [place] CORONARY 12/10/2016 ADALBERTO ARENAS DO Ot I25.2 OLD MYOCARDIAL INFARCTION 12/10/2016 ADALBERTO ARENAS DO Ot I25.5 ISCHEMIC CARDIOMYOPATHY 12/10/2016 ADALBERTO ARENAS DO Ot I48.91 UNSPECIFIED ATRIAL FIBRILLATION 12/10/2016 RACHAEL ARENSA DOI Ot I50.22 CHRONIC SYSTOLIC (CONGESTIVE) HEART FAIL 12/10/2016 ADALBERTO ARENAS DO Ot J15.4 PNEUMONIA DUE TO OTHER STREPTOCOCCI 12/10/2016 ADALBERTO ARENAS DO Ot J18.9 PNEUMONIA, UNSPECIFIED ORGANISM 12/10/2016 ADALBERTO ARENAS DO Ot J44.0 CHRONIC OBSTRUCTIVE PULMON DISEASE W ACU 12/10/2016 ADALBERTO ARENAS DO Ot K21.9 GASTRO-ESOPHAGEAL REFLUX DISEASE WITHOUT 12/10/2016 ADALBERTO ARENAS DO Ot R19.7 DIARRHEA, UNSPECIFIED 12/10/2016 ADALBERTO ARENAS DO Ot R63.0 ANOREXIA 12/10/2016 ADALBERTO ARENAS DO Ot T45.1X 5A ADVERSE EFFECT OF ANTINEOPLASTIC AND IMM 12/10/2016 ADALBERTO ARENAS DO Ot Z79.4 [facility] (CURRENT) USE OF INSULIN 12/10/2016 ADALBERTO ARENAS DO Ot Z86.19 PERSONAL HISTORY OF OTHER INFECTIOUS AND 12/10/2016 ADALBERTO ARENAS DO Ot Z86.71 8 PERSONAL HISTORY OF OTHER VENOUS THROMBO 12/10/2016 ADALBERTO ARENAS DO Ot Z86.73 PRSNL HX OF TIA (TIA), AND CEREB INFRC W 12/10/2016 ADALBERTO ARENAS DO Ot Z87.89 1 PERSONAL HISTORY OF NICOTINE DEPENDENCE 12/10/2016 ADALBERTO ARENAS DO Ot Z95.1 PRESENCE OF AORTOCORONARY BYPASS GRAFT 12/10/2016 JORGE CARDENAS Ot C91.00 ACUTE LYMPHOBLASTIC LEUKEMIA NOT HAVING 12/10/2016 JORGE CARDENAS Ot D50.9 IRON DEFICIENCY ANEMIA, UNSPECIFIED 12/10/2016 JORGE CARDENAS Ot Z51.11 ENCOUNTER FOR ANTINEOPLASTIC CHEMOTHERAP 12/10/2016 JORGE CARDENAS Ot Z79.899 OTHER CITIZEN PARTICIPATION SPECIALIST (CURRENT) DRUG THERAPY 12/17/2016 THERESA, BOBAN N Ot C91.00 ACUTE LYMPHOBLASTIC LEUKEMIA NOT HAVING 12/17/2016 THREESA, BOBAN N Ot D50.9 IRON DEFICIENCY ANEMIA, UNSPECIFIED 12/17/2016 THERESA, JORGE N Ot Z51.11 ENCOUNTER FOR ANTINEOPLASTIC CHEMOTHERAP 12/17/2016 THERESA, BOBAN N Ot Z79.899 OTHER [facility] (CURRENT) DRUG THERAPY 01/19/2017 THERESA, BOBDUSTIN N Ot C91.00 ACUTE LYMPHOBLASTIC LEUKEMIA NOT HAVING 01/19/2017 THERESA, BOBDUSTIN N Ot D50.9 IRON DEFICIENCY ANEMIA, UNSPECIFIED 01/19/2017 THERESA, BOBAN N Ot Z51.11 ENCOUNTER FOR ANTINEOPLASTIC CHEMOTHERAP 01/19/2017 THERESA, BOBAN N Ot Z79.899 OTHER CITIZEN PARTICIPATION SPECIALIST (CURRENT) DRUG THERAPY 01/22/2017 THERESA, BOBDUSTIN N Ot C91.00 ACUTE LYMPHOBLASTIC LEUKEMIA NOT HAVING 01/22/2017 THERESA, BOBAN N Ot D50.9 IRON DEFICIENCY ANEMIA, UNSPECIFIED 01/22/2017 THERESA, BOBDUSTIN N Ot Z51.11 ENCOUNTER FOR ANTINEOPLASTIC CHEMOTHERAP 01/22/2017 THERESA, BOBAN N Ot Z79.899 OTHER [facility] (CURRENT) DRUG THERAPY 02/22/2017 THERESA, BOBAN N Ot C91.00 ACUTE LYMPHOBLASTIC LEUKEMIA NOT HAVING 02/22/2017 THERESA, BOBAN N Ot D50.9 IRON DEFICIENCY ANEMIA, UNSPECIFIED 02/22/2017 THERESA, BOBAN N Ot Z79.899 OTHER [facility] (CURRENT) DRUG THERAPY 03/12/2017 THERESA, BOBAN N Ot C91.00 ACUTE LYMPHOBLASTIC LEUKEMIA NOT HAVING 03/12/2017 THERESA, BOBAN N Ot D50.9 IRON DEFICIENCY ANEMIA, UNSPECIFIED 03/12/2017 THERESA, BOBAN N Ot Z79.899 OTHER [facility] (CURRENT) DRUG THERAPY 03/17/2017 THERESA, BOBAN N Ot C91.00 ACUTE LYMPHOBLASTIC LEUKEMIA NOT HAVING 03/17/2017 THERESA, BOBAN N Ot D50.9 IRON DEFICIENCY ANEMIA, UNSPECIFIED 03/17/2017 THERESA, BOBAN N Ot Z79.899 OTHER [facility] (CURRENT) DRUG THERAPY 04/17/2017 ARENAS DO, ADALBERTO Ot C91.00 ACUTE LYMPHOBLASTIC LEUKEMIA NOT HAVING 04/17/2017 ARENAS DO ADALBERTO Ot D64.9 ANEMIA, UNSPECIFIED 04/17/2017 DAGOBERTO DO ADALBERTO Ot E11.40 TYPE 2 DIABETES MELLITUS WITH DIABETIC N 04/17/2017 DAGOBERTO DO ADALBERTO Ot E78.5 HYPERLIPIDEMIA, UNSPECIFIED 04/17/2017 DAGOBERTO DO ADALBERTO Ot I10 ESSENTIAL (PRIMARY) HYPERTENSION 04/17/2017 DAGOBERTO AMOR ADALBERTO Ot I25.10 ATHSCL HEART DISEASE OF [place] CORONARY 04/17/2017 DAGOBERTO AMOR ADALBERTO Ot J44.9 CHRONIC OBSTRUCTIVE PULMONARY DISEASE, U 04/17/2017 DAGOBERTO AMOR ADALBERTO Ot K21.9 GASTRO-ESOPHAGEAL REFLUX DISEASE WITHOUT 04/17/2017 DAGOBERTO DO ADALBERTO Ot R11.2 NAUSEA WITH VOMITING, UNSPECIFIED 04/17/2017 RACHAEL ARENAS DOI Ot R50.9 FEVER, UNSPECIFIED 04/17/2017 DAGOBERTO AMOR ADALBERTO Ot Z79.4 [facility] (CURRENT) USE OF INSULIN 04/17/2017 RACHAEL ARENAS DOI Ot Z79.89 9 OTHER [facility] (CURRENT) DRUG THERAPY 04/17/2017 RACHAEL ARENAS DOI Ot Z87.01 PERSONAL HISTORY OF PNEUMONIA (RECURRENT 04/17/2017 DAGOBERTO AMOR ADALBERTO Ot Z87.19 PERSONAL HISTORY OF OTHER DISEASES OF TH 04/17/2017 RACHAEL ARENAS DOI Ot Z87.89 1 PERSONAL HISTORY OF NICOTINE DEPENDENCE 04/17/2017 RACHAEL ARENAS DOI Ot Z95.1 PRESENCE OF AORTOCORONARY BYPASS GRAFT 04/17/2017 DAGOBERTO AMOR ADALBERTO Ot C91.00 ACUTE LYMPHOBLASTIC LEUKEMIA NOT HAVING 04/17/2017 ADALBERTO ARENAS DO Ot D64.9 ANEMIA, UNSPECIFIED 04/17/2017 DAGOBERTO AMOR ADALBERTO Ot E11.40 TYPE 2 DIABETES MELLITUS WITH DIABETIC N 04/17/2017 DAGOBERTO AMOR ADALBERTO Ot E78.5 HYPERLIPIDEMIA, UNSPECIFIED 04/17/2017 DAGOBERTO AMOR ADALBERTO Ot I10 ESSENTIAL (PRIMARY) HYPERTENSION 04/17/2017 DAGOBERTO AMOR ADALBERTO Ot I25.10 ATHSCL HEART DISEASE OF [place] CORONARY 04/17/2017 DAGOBERTO AMOR ADALBERTO Ot J44.9 CHRONIC OBSTRUCTIVE PULMONARY DISEASE, U 04/17/2017 DAGOBERTO AMOR ADALBERTO Ot K21.9 GASTRO-ESOPHAGEAL REFLUX DISEASE WITHOUT 04/17/2017 DAGOBERTO DO ADALBERTO Ot R11.2 NAUSEA WITH VOMITING, UNSPECIFIED 04/17/2017 RACHAEL ARENAS DOI Ot R50.9 FEVER, UNSPECIFIED 04/17/2017 ADALBERTO AREANS DO Ot Z79.4 [facility] (CURRENT) USE OF INSULIN 04/17/2017 RACHAEL ARENAS DOI Ot Z79.89 9 OTHER [facility]EN [employer] [facility] (CURRENT) DRUG THERAPY 04/17/2017 RACHAEL ARENAS DOI Ot Z87.01 PERSONAL HISTORY OF PNEUMONIA (RECURRENT 04/17/2017 RACHAEL ARENAS DOI Ot Z87.19 PERSONAL HISTORY OF OTHER DISEASES OF TH 04/17/2017 RACHAEL ARENAS DOI Ot Z87.89 1 PERSONAL HISTORY OF NICOTINE DEPENDENCE 04/17/2017 RACHAEL ARENAS DOI Ot Z95.1 PRESENCE OF AORTOCORONARY BYPASS GRAFT 04/21/2017 THERESA, TABBYAN N Ot C91.00 ACUTE LYMPHOBLASTIC LEUKEMIA NOT HAVING 04/21/2017 THERESA, BOBAN N Ot D50.9 IRON DEFICIENCY ANEMIA, UNSPECIFIED 04/21/2017 THERESAJORGE N Ot Z79.899 OTHER [facility] (CURRENT) DRUG THERAPY 04/22/2017 THERESA, BOBAN N Ot C91.00 ACUTE LYMPHOBLASTIC LEUKEMIA NOT HAVING 04/22/2017 THERESA, BOBAN N Ot D50.9 IRON DEFICIENCY ANEMIA, UNSPECIFIED 04/22/2017 THERESA, BOBAN N Ot Z79.899 OTHER [facility] (CURRENT) DRUG THERAPY 04/23/2017 THERESA, BOBAN N Ot C91.00 ACUTE LYMPHOBLASTIC LEUKEMIA NOT HAVING 04/23/2017 THERESA, BOBAN N Ot D50.9 IRON DEFICIENCY ANEMIA, UNSPECIFIED 04/23/2017 THERESA, BOBAN N Ot Z79.899 OTHER CIT[facility]EN PARTIC[employer] [facility] (CURRENT) DRUG THERAPY 04/27/2017 THERESA, BOBAN N Ot C91.00 ACUTE LYMPHOBLASTIC LEUKEMIA NOT HAVING 04/27/2017 THERESA, BOBAN N Ot D50.9 IRON DEFICIENCY ANEMIA, UNSPECIFIED 04/27/2017 THERESA, BOBAN N Ot Z79.899 OTHER [facility] (CURRENT) DRUG THERAPY 05/21/2017 RACHAEL ARENAS DOI Ot E11.40 TYPE 2 DIABETES MELLITUS WITH DIABETIC N 05/21/2017 RACHAEL ARENAS DOI Ot E78.5 HYPERLIPIDEMIA, UNSPECIFIED 05/21/2017 RACHAEL ARENAS DOI Ot I10 ESSENTIAL (PRIMARY) HYPERTENSION 05/21/2017 DAGOBERTO AMOR ADALBERTO Ot I25.10 ATHSCL HEART DISEASE OF [place] CORONARY 05/21/2017 RACHAEL ARENAS DOI Ot I25.2 OLD MYOCARDIAL INFARCTION 05/21/2017 RACHAEL ARENAS DOI Ot J44.9 CHRONIC OBSTRUCTIVE PULMONARY DISEASE, U 05/21/2017 DAGOBERTO AMOR ADALBERTO Ot K21.9 GASTRO-ESOPHAGEAL REFLUX DISEASE WITHOUT 05/21/2017 DAGOBERTO AMOR ADALBERTO Ot M48.06 SPINAL STENOSIS, LUMBAR REGION 05/21/2017 DAGOBERTO AMOR ADALBERTO Ot M51.26 OTHER INTERVERTEBRAL DISC DISPLACEMENT, 05/21/2017 DAGOBERTO AMOR ADALBERTO Ot Z79.4 [facility] (CURRENT) USE OF INSULIN 05/21/2017 RACHAEL ARENAS DOI Ot Z79.82 [facility] [employer] (CURRENT) USE OF ASPIRIN 05/21/2017 RACHAEL ARENAS DOI Ot Z79.89 9 OTHER [facility] [facility] (CURRENT) DRUG THERAPY 05/21/2017 RACHAEL ARENAS DOI Ot Z85.83 1 PERSONAL HISTORY OF MALIGNANT NEOPLASM O 05/21/2017 RACHAEL ARENAS DOI Ot Z87.89 1 PERSONAL HISTORY OF NICOTINE DEPENDENCE 05/21/2017 RACHAEL ARENAS DOI Ot Z95.1 PRESENCE OF AORTOCORONARY BYPASS GRAFT 05/21/2017 RACHAEL ARENAS DOI Ot E11.40 TYPE 2 DIABETES MELLITUS WITH DIABETIC N 05/21/2017 RACHAEL ARENAS DOI Ot E78.5 HYPERLIPIDEMIA, UNSPECIFIED 05/21/2017 DAGOBERTO AMOR ADALBERTO Ot I10 ESSENTIAL (PRIMARY) HYPERTENSION 05/21/2017 ADALBERTO ARENAS DO Ot I25.10 ATHSCL HEART DISEASE OF [place] CORONARY 05/21/2017 DAGOBERTO AMOR ADALBERTO Ot I25.2 OLD MYOCARDIAL INFARCTION 05/21/2017 RACHAEL ARENAS DOI Ot J44.9 CHRONIC OBSTRUCTIVE PULMONARY DISEASE, U 05/21/2017 RACHAEL ARENAS DOI Ot K21.9 GASTRO-ESOPHAGEAL REFLUX DISEASE WITHOUT 05/21/2017 DAGOBERTO AMOR ADALBERTO Ot M48.06 SPINAL STENOSIS, LUMBAR REGION 05/21/2017 DAGOBERTO AMOR ADALBERTO Ot M51.26 OTHER INTERVERTEBRAL DISC DISPLACEMENT, 05/21/2017 RACHAEL ARENAS DOI Ot 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 05/21/2017 RACHAEL ARENAS DOI Ot Z79.82 [facility] (CURRENT) USE OF ASPIRIN 05/21/2017 ARENAS DO ADALBERTO Ot Z79.89 9 OTHER CITIZEN PARTICIPATION SPECIALIST (CURRENT) DRUG THERAPY 05/21/2017 ARENAS ADALBERTO Ot Z85.83 1 PERSONAL HISTORY OF MALIGNANT NEOPLASM O 05/21/2017 ARENASADALBERTO RICH DO Ot Z87.89 1 PERSONAL HISTORY OF NICOTINE DEPENDENCE 05/21/2017 ARENASADALBERTO RICH DO Ot Z95.1 PRESENCE OF AORTOCORONARY BYPASS GRAFT 06/15/2017 JORGE CARDENAS Ot C91.00 ACUTE LYMPHOBLASTIC LEUKEMIA NOT HAVING 06/15/2017 JORGE CARDENAS Ot D50.9 IRON DEFICIENCY ANEMIA, UNSPECIFIED 06/15/2017 JORGE CARDENAS Ot Z79.899 OTHER CITIZEN PARTICIPATION SPECIALIST (CURRENT) DRUG THERAPY 06/22/2017 JORGE CARDENAS Ot C91.00 ACUTE LYMPHOBLASTIC LEUKEMIA NOT HAVING 06/22/2017 JORGE CARDENAS Ot D50.9 IRON DEFICIENCY ANEMIA, UNSPECIFIED 06/22/2017 JORGE CARDENAS Ot Z79.899 OTHER CITIZEN PARTICIPATION SPECIALIST (CURRENT) DRUG THERAPY 07/17/2017 JORGE CARDENAS Ot C91.00 ACUTE LYMPHOBLASTIC LEUKEMIA NOT HAVING 07/17/2017 JORGE CARDENAS Ot D50.9 IRON DEFICIENCY ANEMIA, UNSPECIFIED 07/17/2017 JORGE CARDENAS Ot E11.43 TYPE 2 DIABETES W DIABETIC AUTONOMIC (PO 07/17/2017 JORGE CARDENAS Ot E78.5 HYPERLIPIDEMIA, UNSPECIFIED 07/17/2017 JORGE CARDENAS Ot E83.42 HYPOMAGNESEMIA 07/17/2017 JORGE CARDENAS Ot I10 ESSENTIAL (PRIMARY) HYPERTENSION 07/17/2017 JORGE CARDENAS Ot I25.10 ATHSCL HEART DISEASE OF [place] CORONARY 07/17/2017 JORGE CARDENAS Ot K12.30 ORAL MUCOSITIS (ULCERATIVE), UNSPECIFIED 07/17/2017 JORGE CARDENAS Ot R29.898 OTH SYMPTOMS AND SIGNS INVOLVING THE MUS 07/17/2017 JORGE CARDENAS Ot Z79.4 [facility] (CURRENT) USE OF INSULIN 07/17/2017 JORGE CARDENAS Ot Z79.899 OTHER CITIZEN PARTICIPATION SPECIALIST (CURRENT) DRUG THERAPY 08/02/2017 CLYDE JEAN, CHRISTOPHER Buchanan Ot E78. 2 MIXED HYPERLIPIDEMIA 08/02/2017 CHRISTOPHER TANG MD Ot I10 ESSENTIAL (PRIMARY) HYPERTENSION 08/02/2017 CHRISTOPHER TANG MD Ot I25. 10 ATHSCL HEART DISEASE OF [place] CORONARY 08/02/2017 CHRISTOPHER TANG MD Ot I48. 91 UNSPECIFIED ATRIAL FIBRILLATION 08/02/2017 CHRISTOPHER TANG MD Ot R07. 9 CHEST PAIN, UNSPECIFIED 08/13/2017 JORGE CARDENAS Ot C91.00 ACUTE LYMPHOBLASTIC LEUKEMIA NOT HAVING 08/13/2017 THERESAJORGE BERNAL Ot D50.9 IRON DEFICIENCY ANEMIA, UNSPECIFIED 08/13/2017 JORGE CARDENAS Ot Z45.2 ENCOUNTER FOR ADJUSTMENT AND MANAGEMENT 08/13/2017 JORGE CARDENAS Ot Z79.899 OTHER [facility] (CURRENT) DRUG THERAPY 08/20/2017 CHRISTOPHER TANG MD Ot E78. 2 MIXED HYPERLIPIDEMIA 08/20/2017 CHRISTOPHER TANG MD Ot I10 ESSENTIAL (PRIMARY) HYPERTENSION 08/20/2017 CHRISTOPHER TANG MD Ot I25. 10 ATHSCL HEART DISEASE OF [place] CORONARY 08/20/2017 CHRISTOPHER TANG MD Ot I48. 91 UNSPECIFIED ATRIAL FIBRILLATION 08/20/2017 CHRISTOPHER TANG MD Ot R07. 9 CHEST PAIN, UNSPECIFIED 2017 CHRISTOPHER TANG MD Ot E78. 2 MIXED HYPERLIPIDEMIA 2017 CHRISTOPHER TANG MD Ot I10 ESSENTIAL (PRIMARY) HYPERTENSION 2017 CHRISTOPHER TANG MD Ot I25. 10 ATHSCL HEART DISEASE OF [place] CORONARY 2017 CHRISTOPHER TANG MD Ot I48. 91 UNSPECIFIED ATRIAL FIBRILLATION 2017 CHRISTOPHER TANG MD Ot R07. 9 CHEST PAIN, UNSPECIFIED 09/10/2017 JORGE CARDENAS Ot C91.00 ACUTE LYMPHOBLASTIC LEUKEMIA NOT HAVING 09/10/2017 JORGE CARDENAS Ot D50.9 IRON DEFICIENCY ANEMIA, UNSPECIFIED 09/10/2017 JORGE CARDENAS Ot Z45.2 ENCOUNTER FOR ADJUSTMENT AND MANAGEMENT 09/10/2017 JORGE CARDENAS N Ot Z79.899 OTHER [facility] (CURRENT) DRUG THERAPY 09/16/2017 JORGE CARDENAS Ot C91.00 ACUTE LYMPHOBLASTIC LEUKEMIA NOT HAVING 09/16/2017 THERESAJORGE BERNAL Fernandez Ot D50.9 IRON DEFICIENCY ANEMIA, UNSPECIFIED 09/16/2017 JORGE CARDENAS Ot Z45.2 ENCOUNTER FOR ADJUSTMENT AND MANAGEMENT 09/16/2017 JORGE CARDENAS Ot Z79.899 OTHER CITIZEN PARTICIPATION SPECIALIST (CURRENT) DRUG THERAPY 11/03/2017 NISSA CASTAÑEDA MD Ot E11.42 TYPE 2 DIABETES MELLITUS WITH DIABETIC P 11/03/2017 NISSA CASTAÑEDA MD Ot E11.621 TYPE 2 DIABETES MELLITUS WITH FOOT ULCER 11/03/2017 NISSA CASTAÑEDA MD Ot L03.115 CELLULITIS OF RIGHT LOWER LIMB 11/03/2017 NISSA CASTAÑEDA MD, Ot L97.521 NON-PRS CHRONIC ULCER OTH PRT L FOOT MIDDLETON 11/08/2017 JORGE CARDENAS Fernandez Ot C91.00 ACUTE LYMPHOBLASTIC LEUKEMIA NOT HAVING 11/08/2017 THERESAJORGE Fernandez Ot D50.9 IRON DEFICIENCY ANEMIA, UNSPECIFIED 11/08/2017 THERESAJORGE BERNAL Fernandez Ot Z45.2 ENCOUNTER FOR ADJUSTMENT AND MANAGEMENT 11/08/2017 JORGE CARDENAS Fernandez Ot Z79.899 OTHER CITIZEN PARTICIPATION SPECIALIST (CURRENT) DRUG THERAPY 11/08/2017 CLEMENCIA BATISTA MD, Ot C91.00 ACUTE LYMPHOBLASTIC LEUKEMIA NOT HAVING 11/08/2017 CLEMENCIA BATISTA MD, Ot D50.9 IRON DEFICIENCY ANEMIA, UNSPECIFIED 11/08/2017 CLEMENCIA BATISTA MD, Ot Z45.2 ENCOUNTER FOR ADJUSTMENT AND MANAGEMENT 11/08/2017 CLEMENCIA BATISTA MD Ot Z79.899 OTHER [facility] (CURRENT) DRUG THERAPY 11/09/2017 NISSA CASTAÑEDA MD Ot E11.42 TYPE 2 DIABETES MELLITUS WITH DIABETIC P 11/09/2017 NISSA CASTAÑEDA MD Ot E11.621 TYPE 2 DIABETES MELLITUS WITH FOOT ULCER 11/09/2017 NISSA ACSTAÑEDA MD Ot L03.115 CELLULITIS OF RIGHT LOWER LIMB 11/09/2017 NISSA CASTAÑEDA MD, Ot L97.521 NON-PRS CHRONIC ULCER OTH PRT L FOOT MIDDLETON 11/25/2017 CLEMENCIA BATISTA MD, Ot C91.00 ACUTE LYMPHOBLASTIC LEUKEMIA NOT HAVING 11/25/2017 CLEMENCIA BATISTA MD Ot D50.9 IRON DEFICIENCY ANEMIA, UNSPECIFIED 11/25/2017 CLEMENCIA BATISTA MD Ot E11.43 TYPE 2 DIABETES W DIABETIC AUTONOMIC (PO 11/25/2017 CLEMENCIA BATISTA MD Ot E78.5 HYPERLIPIDEMIA, UNSPECIFIED 11/25/2017 CLEMENCIA BATISTA MD Ot I10 ESSENTIAL (PRIMARY) HYPERTENSION 11/25/2017 CLEMENCIA BATISTA MD, Ot I25.10 ATHSCL HEART DISEASE OF [place] CORONARY 11/25/2017 CLEMENCIA BATISTA MD Ot Z79.4 [facility] (CURRENT) USE OF INSULIN 11/25/2017 CLEMENCIA BATISTA MD, Ot Z79.899 OTHER [facility] (CURRENT) DRUG THERAPY 11/26/2017 NISSA CASTAÑEDA MD, Ot E11.42 TYPE 2 DIABETES MELLITUS WITH DIABETIC P 11/26/2017 NISSA CASTAÑEDA MD, Ot E11.621 TYPE 2 DIABETES MELLITUS WITH FOOT ULCER 11/26/2017 NISSA CASTAÑEDA MD, Ot L03.115 CELLULITIS OF RIGHT LOWER LIMB 11/26/2017 NISSA CASTAÑEDA MD, Ot L97.521 NON-PRS CHRONIC ULCER OTH PRT L FOOT MIDDLETON 11/29/2017 ADALBERTO ARENAS DO Ot M79.67 2 PAIN IN LEFT FOOT 11/30/2017 NISSA CASTAÑEDA MD, Ot E11.42 TYPE 2 DIABETES MELLITUS WITH DIABETIC P 11/30/2017 NISSA CASTAÑEDA MD, Ot E11.621 TYPE 2 DIABETES MELLITUS WITH FOOT ULCER 11/30/2017 NISSA CASTAÑEDA MD, Ot L03.115 CELLULITIS OF RIGHT LOWER LIMB 11/30/2017 NISSA CASTAÑEDA MD, Ot L97.521 NON-PRS CHRONIC ULCER OTH PRT L FOOT MIDDLETON 12/01/2017 ADALBERTO ARENAS DO Ot M79.67 2 PAIN IN LEFT FOOT 12/01/2017 NISSA CASTAÑEDA MD, Ot E11.42 TYPE 2 DIABETES MELLITUS WITH DIABETIC P 12/01/2017 NISSA CASTAÑEDA MD, Ot E11.621 TYPE 2 DIABETES MELLITUS WITH FOOT ULCER 12/01/2017 NISSA CASTAÑEDA MD, Ot L03.115 CELLULITIS OF RIGHT LOWER LIMB 12/01/2017 NISSA CASTAÑEDA MD, Ot L97.521 NON-PRS CHRONIC ULCER OTH PRT L FOOT MIDDLETON 12/08/2017 NISSA CASTAÑEDA MD, Ot E11.42 TYPE 2 DIABETES MELLITUS WITH DIABETIC P 12/08/2017 NISSA CASTAÑEDA MD, Ot E11.621 TYPE 2 DIABETES MELLITUS WITH FOOT ULCER 12/08/2017 NISSA CASTAÑEDA MD, Ot L03.115 CELLULITIS OF RIGHT LOWER LIMB 12/08/2017 GARRY JEAN, NISSA Lees Ot L97.521 NON-PRS CHRONIC ULCER OTH PRT L FOOT MIDDLETON 12/15/2017 CLEMENCIA BATISTA MD Ot C91.00 ACUTE LYMPHOBLASTIC LEUKEMIA NOT HAVING 12/15/2017 CLEMENCIA BATISTA MD Ot D50.9 IRON DEFICIENCY ANEMIA, UNSPECIFIED 12/15/2017 CLEMENCIA BATISTA MD Ot E11.43 TYPE 2 DIABETES W DIABETIC AUTONOMIC (PO 12/15/2017 CLEMENCIA BATISTA MD Ot E78.5 HYPERLIPIDEMIA, UNSPECIFIED 12/15/2017 CLEMENCIA BATISTA MD Ot I10 ESSENTIAL (PRIMARY) HYPERTENSION 12/15/2017 CLEMENCIA BATISTA MD Ot I25.10 ATHSCL HEART DISEASE OF [place] CORONARY 12/15/2017 CLEMENCIA BATISTA MD Ot Z79.4 [facility] (CURRENT) USE OF INSULIN 12/15/2017 CLEMENCIA BATISTA MD Ot Z79.899 OTHER [facility] (CURRENT) DRUG THERAPY 12/27/2017 CLMEENCIA BATISTA MD Ot C91.00 ACUTE LYMPHOBLASTIC LEUKEMIA NOT HAVING 12/27/2017 CLEMENCIA BATISTA MD Ot D50.9 IRON DEFICIENCY ANEMIA, UNSPECIFIED 12/27/2017 CLEMENCIA BATISTA MD Ot E11.43 TYPE 2 DIABETES W DIABETIC AUTONOMIC (PO 12/27/2017 CLEMENCIA BATISTA MD Ot E78.5 HYPERLIPIDEMIA, UNSPECIFIED 12/27/2017 CLEMENCIA BATISTA MD Ot I10 ESSENTIAL (PRIMARY) HYPERTENSION 12/27/2017 CLEMENCIA BATISTA MD Ot I25.10 ATHSCL HEART DISEASE OF [place] CORONARY 12/27/2017 CLEMENCIA BATISTA MD Ot Z79.4 [facility] (CURRENT) USE OF INSULIN 12/27/2017 CLEMENCIA BATISTA MD Ot Z79.899 OTHER [facility] (CURRENT) DRUG THERAPY 02/07/2018 CLEMENCIA BATISTA MD Ot C91.00 ACUTE LYMPHOBLASTIC LEUKEMIA NOT HAVING 02/07/2018 CLEMENCIA BATISTA MD Ot D50.9 IRON DEFICIENCY ANEMIA, UNSPECIFIED 02/07/2018 CLEMENCIA BATISTA MD Ot E11.43 TYPE 2 DIABETES W DIABETIC AUTONOMIC (PO 02/07/2018 CLEMENCIA BATISTA MD Ot E78.5 HYPERLIPIDEMIA, UNSPECIFIED 02/07/2018 CLEMENCIA BATISTA MD Ot I10 ESSENTIAL (PRIMARY) HYPERTENSION 02/07/2018 DEJA BATISTA MDNER Ot I25.10 ATHSCL HEART DISEASE OF [place] CORONARY 02/07/2018 CLEMENCIA BATISTA MD Ot Z79.4 [facility] (CURRENT) USE OF INSULIN 02/07/2018 CLEMENCIA BATISTA MD Ot Z79.899 OTHER CITIZEN PARTICIPATION SPECIALIST (CURRENT) DRUG THERAPY 02/08/2018 CLEMENCIA BATISTA MD Ot C91.00 ACUTE LYMPHOBLASTIC LEUKEMIA NOT HAVING 02/08/2018 CLEMENCIA BATISTA MD Ot D50.9 IRON DEFICIENCY ANEMIA, UNSPECIFIED 02/08/2018 CLEMENCIA BATISTA MD Ot E11.43 TYPE 2 DIABETES W DIABETIC AUTONOMIC (PO 02/08/2018 CLEMENCIA BATISTA MD Ot E78.5 HYPERLIPIDEMIA, UNSPECIFIED 02/08/2018 CLEMENCIA BATISTA MD Ot I10 ESSENTIAL (PRIMARY) HYPERTENSION 02/08/2018 CLEMENCIA BATISTA MD Ot I25.10 ATHSCL HEART DISEASE OF [place] CORONARY 02/08/2018 CLEMENCIA BATISTA MD Ot Z79.4 [facility] (CURRENT) USE OF INSULIN 02/08/2018 CLEMENCIA BATISTA MD Ot Z79.899 OTHER CITIZEN PARTICIPATION SPECIALIST (CURRENT) DRUG THERAPY 02/16/2018 ARENAS DO, ADALBERTO Ot Z29.8 ENCOUNTER FOR OTHER SPECIFIED PROPHYLACT 03/19/2018 ARENAS DO, ADALBERTO Ot Z29.8 ENCOUNTER FOR OTHER SPECIFIED PROPHYLACT 04/08/2018 THERESA, BOBAN N Ot C91.00 ACUTE LYMPHOBLASTIC LEUKEMIA NOT HAVING 04/08/2018 THERESAJORGE BERNAL N Ot D50.9 IRON DEFICIENCY ANEMIA, UNSPECIFIED 04/08/2018 THERESA BOBAN N Ot E11.43 TYPE 2 DIABETES W DIABETIC AUTONOMIC (PO 04/08/2018 THERESA, BOBAN N Ot E78.5 HYPERLIPIDEMIA, UNSPECIFIED 04/08/2018 THERESA, BOBAN N Ot I10 ESSENTIAL (PRIMARY) HYPERTENSION 04/08/2018 THERESA BOBAN N Ot I25.10 ATHSCL HEART DISEASE OF [place] CORONARY 04/08/2018 JORGE CARDENAS N Ot Z79.4 [facility] (CURRENT) USE OF INSULIN 04/08/2018 THERESA BOBDUSTIN N Ot Z79.899 OTHER [facility] (CURRENT) DRUG THERAPY 04/13/2018 THERESA, BOBAN N Ot C91.00 ACUTE LYMPHOBLASTIC LEUKEMIA NOT HAVING 04/13/2018 THERESATABBY BERNALAN N Ot D50.9 IRON DEFICIENCY ANEMIA, UNSPECIFIED 04/13/2018 THERESA, BOBAN N Ot E11.43 TYPE 2 DIABETES W DIABETIC AUTONOMIC (PO 04/13/2018 THERESAJORGE BERNAL N Ot E78.5 HYPERLIPIDEMIA, UNSPECIFIED 04/13/2018 THERESATABBY BERNALAN N Ot I10 ESSENTIAL (PRIMARY) HYPERTENSION 04/13/2018 JORGE CARDENAS N Ot I25.10 ATHSCL HEART DISEASE OF [place] CORONARY 04/13/2018 JORGE CARDENAS N Ot Z79.4 [facility] (CURRENT) USE OF INSULIN 04/13/2018 JORGE CARDENAS N Ot Z79.899 OTHER [facility] (CURRENT) DRUG THERAPY 04/20/2018 ARENAS DO, ADALBERTO Ot Z29.8 ENCOUNTER FOR OTHER SPECIFIED PROPHYLACT 04/22/2018 ARENAS DO, ADALBERTO Ot Z29.8 ENCOUNTER FOR OTHER SPECIFIED PROPHYLACT 05/22/2018 ARENAS DO, ADALBERTO Ot Z29.8 ENCOUNTER FOR OTHER SPECIFIED PROPHYLACT 06/07/2018 ARENAS DO, ADALBERTO Ot E08.62 1 DIABETES MELLITUS DUE TO UNDERLYING COND 06/07/2018 ARENAS DO, ADALEBRTO Ot R53.83 OTHER FATIGUE 06/07/2018 ARENAS DO, ADALBERTO Ot R73.9 HYPERGLYCEMIA, UNSPECIFIED 06/08/2018 THERESA BOBAN N Ot C91.00 ACUTE LYMPHOBLASTIC LEUKEMIA NOT HAVING 06/08/2018 THERESATABBY BERNALAN N Ot D50.9 IRON DEFICIENCY ANEMIA, UNSPECIFIED 06/08/2018 THERESA BOBAN N Ot E11.43 TYPE 2 DIABETES W DIABETIC AUTONOMIC (PO 06/08/2018 JORGE CARDENAS N Ot E78.5 HYPERLIPIDEMIA, UNSPECIFIED 06/08/2018 TABBY CARDENASAN N Ot I10 ESSENTIAL (PRIMARY) HYPERTENSION 06/08/2018 JORGE CARDENAS N Ot I25.10 ATHSCL HEART DISEASE OF [place] CORONARY 06/08/2018 JORGE CARDENAS N Ot Z45.2 ENCOUNTER FOR ADJUSTMENT AND MANAGEMENT 06/08/2018 JORGE CARDENAS N Ot Z79.4 [facility] (CURRENT) USE OF INSULIN 06/08/2018 JORGE CARDENAS N Ot Z79.899 OTHER [facility] (CURRENT) DRUG THERAPY 06/09/2018 TABBY CARDENASAN N Ot C91.00 ACUTE LYMPHOBLASTIC LEUKEMIA NOT HAVING 06/09/2018 THERESA BOBAN N Ot D50.9 IRON DEFICIENCY ANEMIA, UNSPECIFIED 06/09/2018 THERESA BOBAN N Ot E11.43 TYPE 2 DIABETES W DIABETIC AUTONOMIC (PO 06/09/2018 THERESA, BOBAN N Ot E78.5 HYPERLIPIDEMIA, UNSPECIFIED 06/09/2018 THERESA, BOBAN N Ot I10 ESSENTIAL (PRIMARY) HYPERTENSION 06/09/2018 THERESA, BOBAN N Ot I25.10 ATHSCL HEART DISEASE OF [place] CORONARY 06/09/2018 THERESA BOBAN N Ot Z45.2 ENCOUNTER FOR ADJUSTMENT AND MANAGEMENT 06/09/2018 THERESA BOBAN N Ot Z79.4 [facility] (CURRENT) USE OF INSULIN 06/09/2018 THERESA, BOBAN N Ot Z79.899 OTHER CITIZEN PARTICIPATION SPECIALIST (CURRENT) DRUG THERAPY 06/15/2018 THERESA, BOBAN N Ot C91.00 ACUTE LYMPHOBLASTIC LEUKEMIA NOT HAVING 06/15/2018 THERESA, BOBAN N Ot D50.9 IRON DEFICIENCY ANEMIA, UNSPECIFIED 06/15/2018 THERESA, BOBAN N Ot E11.43 TYPE 2 DIABETES W DIABETIC AUTONOMIC (PO 06/15/2018 THERESA, BOBAN N Ot E78.5 HYPERLIPIDEMIA, UNSPECIFIED 06/15/2018 THERESA, BOBAN N Ot I10 ESSENTIAL (PRIMARY) HYPERTENSION 06/15/2018 THERESA, BOBAN N Ot I25.10 ATHSCL HEART DISEASE OF [place] CORONARY 06/15/2018 THERESA, TABBYAN N Ot 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 06/15/2018 THERESA, BOBAN N Ot Z79.899 OTHER CITIZEN PARTICIPATION SPECIALIST (CURRENT) DRUG THERAPY 06/22/2018 ARENAS DO, ADALBERTO Ot Z29.8 ENCOUNTER FOR OTHER SPECIFIED PROPHYLACT 06/23/2018 ARENAS DO, ADALBERTO Ot Z29.8 ENCOUNTER FOR OTHER SPECIFIED PROPHYLACT 07/07/2018 THERESA, BOBAN N Ot C91.00 ACUTE LYMPHOBLASTIC LEUKEMIA NOT HAVING 07/07/2018 THERESA, BOBAN N Ot D50.9 IRON DEFICIENCY ANEMIA, UNSPECIFIED 07/07/2018 THERESA, BOBAN N Ot E11.43 TYPE 2 DIABETES W DIABETIC AUTONOMIC (PO 07/07/2018 THERESA, BOBAN N Ot E78.5 HYPERLIPIDEMIA, UNSPECIFIED 07/07/2018 THERESA, BOBAN N Ot I10 ESSENTIAL (PRIMARY) HYPERTENSION 07/07/2018 THERESA, BOBAN N Ot I25.10 ATHSCL HEART DISEASE OF [place] CORONARY 07/07/2018 THERESA, BOBAN N Ot Z45.2 ENCOUNTER FOR ADJUSTMENT AND MANAGEMENT 07/07/2018 JORGE CARDENAS Ot 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 07/07/2018 JORGE CARDENAS Ot Z79.899 OTHER CITIZEN PARTICIPATION SPECIALIST (CURRENT) DRUG THERAPY 07/07/2018 CLEMENCIA BATISTA MD, Ot C91.00 ACUTE LYMPHOBLASTIC LEUKEMIA NOT HAVING 07/07/2018 CLEMENCIA BATISTA MD, Ot D50.9 IRON DEFICIENCY ANEMIA, UNSPECIFIED 07/07/2018 CLEMENCIA BATISTA MD Ot E11.43 TYPE 2 DIABETES W DIABETIC AUTONOMIC (PO 07/07/2018 CLEMENCIA BATISTA MD Ot E78.5 HYPERLIPIDEMIA, UNSPECIFIED 07/07/2018 CLEMENCIA BATISTA MD Ot I10 ESSENTIAL (PRIMARY) HYPERTENSION 07/07/2018 CLEMENCIA BATISTA MD, Ot I25.10 ATHSCL HEART DISEASE OF [place] CORONARY 07/07/2018 CLEMENCIA BATISTA MD, Ot Z45.2 ENCOUNTER FOR ADJUSTMENT AND MANAGEMENT 07/07/2018 CLEMENCIA BATISTA MD, Ot 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 07/07/2018 CLEMENCIA BATISTA MD, Ot Z79.899 OTHER CITIZEN PARTICIPATION SPECIALIST (CURRENT) DRUG THERAPY 07/07/2018 KAYLEEN LUCAS SOLE LEVELER MACHINE Ot 250.00 DIAB MILLIE WO COMPL, TYPE II OR UNSPEC TY 07/07/2018 KAYLEEN LUCAS SOLE LEVELER MACHINE Ot 280.9 IRON DEFIC ANEMIA NOS 07/07/2018 KAYLEEN LUCAS SOLE LEVELER MACHINE Ot 414.00 CORON ATHEROSCLER NOS TYPE VESSEL, NATIV 07/07/2018 KAYLEEN LUCAS SOLE LEVELER MACHINE Ot V12.71 PERSONAL HISTORY OF PEPTIC ULCER DISEASE 07/07/2018 KAYLEEN LUCAS SOLE LEVELER MACHINE Ot V45.81 AORTOCORONARY BYPASS 07/07/2018 KAYLEEN LUCASP Ot V58.66 LONG-TERM (CURRENT) USE OF ASPIRIN 07/07/2018 KAYLEEN LUCASP Ot V58.67 LONG-TERM (CURRENT) USE OF INSULIN 07/07/2018 KAYLEEN LUCASP Ot V58.69 OTH MED,LT,CURRENT USE 07/07/2018 JORGE CARDENAS Ot 280.9 IRON DEFIC ANEMIA NOS 07/07/2018 ADALBERTO ARENAS DO Ot 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 07/07/2018 JORGE CARDENAS Ot 280.9 IRON DEFIC ANEMIA NOS 07/07/2018 DEAN JEAN, AILEEN S Ot V72.84 EXAM PRE-OPERATIVE NOS 07/07/2018 ARENAS DO, ADALBERTO Ot 250.00 DIAB MILLIE WO COMPL, TYPE II OR UNSPEC TY 07/07/2018 ARENAS DO, ADALBERTO Ot 285.9 ANEMIA NOS 07/07/2018 ARENAS DO, ADALBERTO Ot 786.05 SHORTNESS OF BREATH 07/07/2018 ARENAS DO, ADALBERTO Ot 786.50 CHEST PAIN NOS 07/07/2018 ARENAS DO, ADALBERTO Ot V58.69 OT MED,LT,CURRENT USE 07/07/2018 ARENAS DO, ADALBERTO Ot V58.83 ENCOUNTER FOR THERAPEUTIC DRUG MONITORIN 07/07/2018 ELLE CORMIER DO Ot 786. 05 SHORTNESS OF BREATH 07/07/2018 ELLE CORMIER DO Ot V45. 81 AORTOCORONARY BYPASS 07/07/2018 ARENAS DO, ADALBERTO Ot 250.00 DIAB MILLIE WO COMPL, TYPE II OR UNSPEC TY 07/07/2018 ARENAS DO, ADALBERTO Ot 272.4 HYPERLIPIDEMIA NEC/NOS 07/07/2018 ARENAS DO, ADALBERTO Ot 280.8 IRON DEFIC ANEMIA NEC 07/07/2018 ARENAS DO, ADALBERTO Ot 401.1 BENIGN HYPERTENSION 07/07/2018 ARENAS DO, ADALBERTO Ot V58.69 OTH MED,LT,CURRENT USE 07/07/2018 ARENAS DO, ADALBERTO Ot 250.00 DIAB MILLIE WO COMPL, TYPE II OR UNSPEC TY 07/07/2018 ARENAS DO, ADALBERTO Ot 272.4 HYPERLIPIDEMIA NEC/NOS 07/07/2018 ARENAS DO, ADALBERTO Ot 280.8 IRON DEFIC ANEMIA NEC 07/07/2018 ARENAS DO, ADALBERTO Ot 401.1 BENIGN HYPERTENSION 07/07/2018 ARENAS DO, ADALBERTO Ot 414.00 CORON ATHEROSCLER NOS TYPE VESSEL, NATIV 07/07/2018 ELLE CORMIER DO Ot 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 07/07/2018 ELLE CORMIER DO Ot 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 07/07/2018 CHRISTOPHER TANG MD Ot 272. 4 HYPERLIPIDEMIA NEC/NOS 07/07/2018 CHRISTOPHER TANG MD Ot 401. 9 HYPERTENSION NOS 07/07/2018 CHRISTOPHER TANG MD Ot 414. 00 CORON ATHEROSCLER NOS TYPE VESSEL, NATIV 07/07/2018 CLYDE JEAN, CHRISTOPHER Chanel Ot 786. 50 CHEST PAIN NOS 07/07/2018 Ot 272.4 HYPE RLIPIDEMIA NEC/NOS 07/07/2018 Ot 401.9 HYPE RTENSION NOS 07/07/2018 Ot 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, NATIV 07/07/2018 Ot 557.9 VASC INSUFF INTEST NOS 07/07/2018 ARENAS DO, ADALBERTO Ot 786.2 COUGH 07/07/2018 ARENAS DO, ADALBERTO Ot 250.00 DIAB MILLIE WO COMPL, TYPE II OR UNSPEC TY 07/07/2018 ARENAS DO, ADALBERTO Ot 272.4 HYPERLIPIDEMIA NEC/NOS 07/07/2018 ARENAS DO, ADALBERTO Ot 298.9 PSYCHOSIS NOS 07/07/2018 ARENAS DO, ADALBERTO Ot 401.9 HYPERTENSION NOS 07/07/2018 ARENAS DO, ADALBERTO Ot 414.00 CORON ATHEROSCLER NOS TYPE VESSEL, NATIV 07/07/2018 ARENAS DO, ADALBERTO Ot 443.9 PERIPH VASCULAR DIS NOS 07/07/2018 ARENAS DO, ADALBERTO Ot 536.8 STOMACH FUNCTION DIS NEC 07/07/2018 ARENAS DO, ADALBERTO Ot 789.09 ABDOMINAL PAIN, OTHER SPECIFIED SITE 07/07/2018 DEAN JEAN, AILEEN [place] Ot V72.84 EXAM PRE-OPERATIVE NOS 07/07/2018 DEAN JEAN, AILEEN [place] Ot 553.1 UMBILICAL HERNIA 07/07/2018 DEAN JEAN, AILEEN [place] Ot V72.84 EXAM PRE-OPERATIVE NOS 07/07/2018 ARENAS DO, ADALBERTO Ot 250.00 DIAB MILLIE WO COMPL, TYPE II OR UNSPEC TY 07/07/2018 ARENAS DO, ADALBERTO Ot 272.4 HYPERLIPIDEMIA NEC/NOS 07/07/2018 ARENAS DO, ADALBERTO Ot 280.8 IRON DEFIC ANEMIA NEC 07/07/2018 ARENAS DO, ADALBERTO Ot 401.1 BENIGN HYPERTENSION 07/07/2018 ARENAS DO, ADALBERTO Ot 414.00 CORON ATHEROSCLER NOS TYPE VESSEL, NATIV 07/07/2018 ARENAS DO, ADALBERTO Ot 455.6 HEMORRHOIDS NOS 07/07/2018 ARENAS DO, ADALBERTO Ot 530.81 ESOPHAGEAL REFLUX 07/07/2018 ARENAS DO, ADALBERTO Ot 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 07/07/2018 ARENAS DO, ADALBERTO Ot 722.10 LUMBAR DISC DISPLACEMENT 07/07/2018 ARENAS DO, ADALBERTO Ot V58.67 LONG-TERM (CURRENT) USE OF INSULIN 07/07/2018 ARENAS DO, ADALBERTO Ot 250.00 DIAB MILLIE WO COMPL, TYPE II OR UNSPEC TY 07/07/2018 ARENAS DO, ADALBERTO Ot 272.4 HYPERLIPIDEMIA NEC/NOS 07/07/2018 ARENAS DO, ADALBERTO Ot 280.8 IRON DEFIC ANEMIA NEC 07/07/2018 ARENAS DO, ADALBERTO Ot 401.1 BENIGN HYPERTENSION 07/07/2018 ARENAS DO, ADALBERTO Ot 414.00 CORON ATHEROSCLER NOS TYPE VESSEL, NATIV 07/07/2018 ARENAS DO, ADALBERTO Ot 455.3 EXT HEMORRHOID W/O COMPL 07/07/2018 ARENAS DO, ADALBERTO Ot 530.81 ESOPHAGEAL REFLUX 07/07/2018 ARENAS DO, ADALBERTO Ot 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 07/07/2018 ARENAS DO, ADALBERTO Ot 722.10 LUMBAR DISC DISPLACEMENT 07/07/2018 ARENAS DO, ADALBERTO Ot 786.2 COUGH 07/07/2018 ARENAS DO, ADALBERTO Ot 250.00 DIAB MILLIE WO COMPL, TYPE II OR UNSPEC TY 07/07/2018 ARENAS DO, ADALBERTO Ot 272.4 HYPERLIPIDEMIA NEC/NOS 07/07/2018 ARENAS DO, ADALBERTO Ot 280.8 IRON DEFIC ANEMIA NEC 07/07/2018 ARENAS DO, ADALBERTO Ot 401.1 BENIGN HYPERTENSION 07/07/2018 ARENAS DO, ADALBERTO Ot 414.00 CORON ATHEROSCLER NOS TYPE VESSEL, NATIV 07/07/2018 ARENAS DO, ADALBERTO Ot 455.6 HEMORRHOIDS NOS 07/07/2018 ARENAS DO, ADALBERTO Ot 530.81 ESOPHAGEAL REFLUX 07/07/2018 ARENAS DO, ADALBERTO Ot 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 07/07/2018 ARENAS DO, ADALBERTO Ot 722.10 LUMBAR DISC DISPLACEMENT 07/07/2018 ARENAS DO, ADALBERTO Ot 786.2 COUGH 07/07/2018 ARENAS DO, ADALBERTO Ot 919.4 INSECT BITE NEC 07/07/2018 ARENAS DO, ADALBERTO Ot E000.8 OTHER EXTERNAL CAUSE STATUS 07/07/2018 ARENAS DO, ADALBERTO Ot E906.4 NONVENOM ARTHROPOD BITE 07/07/2018 ARENAS DO, ADALBERTO Ot V58.67 LONG-TERM (CURRENT) USE OF INSULIN 07/07/2018 AILEEN MORAN MD Ot C95.90 LEUKEMIA, UNSPECIFIED NOT HAVING ACHIEVE 07/07/2018 AILEEN MORAN MD Ot Z01.818 ENCOUNTER FOR OTHER PREPROCEDURAL EXAMIN 07/07/2018 AILEEN MORAN MD Ot Z11.2 ENCOUNTER FOR SCREENING FOR OTHER BACTER 07/07/2018 RACHAEL ARENAS DOI Ot 250.00 07/07/2018 RACHAEL ARENAS DOI Ot 786.2 07/07/2018 KAYLEEN LUCASP Ot D50.9 IRON DEFICIENCY ANEMIA, UNSPECIFIED 07/07/2018 DAGOBERTO AMOR ADALBERTO Ot K75.2 NONSPECIFIC REACTIVE HEPATITIS 07/07/2018 CHRISTOPHER TANG MD Ot I10 ESSENTIAL (PRIMARY) HYPERTENSION 07/07/2018 CHRISTOPHER TANG MD, Ot I25. 10 ATHSCL HEART DISEASE OF [place] CORONARY 07/07/2018 CHRISTOPHER TANG MD Ot I48. 0 PAROXYSMAL ATRIAL FIBRILLATION 07/07/2018 CHRISTOPHER TANG MD Ot I65. 23 OCCLUSION AND STENOSIS OF [place] 07/07/2018 DAGOBERTO AMOR ADALBERTO Ot R19.7 DIARRHEA, UNSPECIFIED 07/07/2018 DAGOBERTO AMOR ADALBERTO Ot N39.0 URINARY TRACT INFECTION, SITE NOT SPECIF 07/07/2018 DAGOBERTO AMOR ADALBERTO Ot N39.0 URINARY TRACT INFECTION, SITE NOT SPECIF 07/07/2018 KAYLEEN LUCAS SOLE LEVELER MACHINE Ot D50.9 IRON DEFICIENCY ANEMIA, UNSPECIFIED 07/07/2018 DAGOBERTO AMOR DAALBERTO Ot N39.0 URINARY TRACT INFECTION, SITE NOT SPECIF 07/07/2018 DAGOBERTO AMOR ADALBERTO Ot I70.0 ATHEROSCLEROSIS OF [place] 07/07/2018 DAGOBERTO AMOR ADALBERTO Ot I70.20 9 UNSP ATHSCL [place] ARTERIES OF EXTREMITI 07/07/2018 DAGOBERTO AMOR ADALBERTO Ot I71.9 AORTIC ANEURYSM OF UNSPECIFIED SITE, WIT 07/07/2018 CHRISTOPHER TANG MD Ot E78. 2 MIXED HYPERLIPIDEMIA 07/07/2018 CHRISTOPHER TANG MD Ot I10 ESSENTIAL (PRIMARY) HYPERTENSION 07/07/2018 CHRISTOPHER TANG MD Ot I25. 10 ATHSCL HEART DISEASE OF [place] CORONARY 07/07/2018 CHRISTOPHER TANG MD J Ot I65. 23 OCCLUSION AND STENOSIS OF [place] 07/07/2018 KAYLEEN LUCAS SOLE LEVELER MACHINE Ot C91.00 ACUTE LYMPHOBLASTIC LEUKEMIA NOT HAVING 07/07/2018 LUCASKAYLEEN Juliette SOLE LEVELER MACHINE Ot Z79.899 OTHER [facility] (CURRENT) DRUG THERAPY 07/07/2018 KAYLEEN LUCAS SOLE LEVELER MACHINE Ot C91.00 ACUTE LYMPHOBLASTIC LEUKEMIA NOT HAVING 07/07/2018 KAYLEEN LUCAS SOLE LEVELER MACHINE Ot D50.9 IRON DEFICIENCY ANEMIA, UNSPECIFIED 07/07/2018 KAYLEEN LUCAS SOLE LEVELER MACHINE Ot Z79.899 OTHER CITIZEN PARTICIPATION SPECIALIST (CURRENT) DRUG THERAPY 07/07/2018 BASSAM FISCHER Ot E78.2 MIXED HYPERLIPIDEMIA 07/07/2018 ANGUS DEJESUS BASSAM K Ot I10 ESSENTIAL (PRIMARY) HYPERTENSION 07/07/2018 ANGUS DEJESUS BASSAM K Ot I25.10 ATHSCL HEART DISEASE OF [place] CORONARY 07/07/2018 ANGUS DEJESUS BASSAM K Ot I65.23 OCCLUSION AND STENOSIS OF [place]ILATERAL [place] 07/07/2018 ANGUS DEJESUS, BASSAM K Ot E78.2 MIXED HYPERLIPIDEMIA 07/07/2018 ANGUS DEJESUS, BASSAM K Ot I10 ESSENTIAL (PRIMARY) HYPERTENSION 07/07/2018 ANGUS DEJESUS BASSAM K Ot I25.10 ATHSCL HEART DISEASE OF [place] CORONARY 07/07/2018 ANGUS DEJESUS BASSAM K Ot I65.23 OCCLUSION AND STENOSIS OF [place] 07/07/2018 JIM-DOV DEJESUS, BASSAM K Ot E78.2 MIXED HYPERLIPIDEMIA 07/07/2018 ANGUS DEJESUS, BASSAM K Ot I10 ESSENTIAL (PRIMARY) HYPERTENSION 07/07/2018 ANGUS DEJESUS, BASSAM K Ot I25.10 ATHSCL HEART DISEASE OF [place] CORONARY 07/07/2018 JIM-DOV DEJESUS BASSAM K Ot I65.23 OCCLUSION AND STENOSIS OF [place] 07/07/2018 LUCAS CORINESHAMAR Juliette SOLE LEVELER MACHINE Ot C91.00 ACUTE LYMPHOBLASTIC LEUKEMIA NOT HAVING 07/07/2018 CORINE LUCASSHAMAR Juliette SOLE LEVELER MACHINE Ot D50.9 IRON DEFICIENCY ANEMIA, UNSPECIFIED 07/07/2018 CORINE LUCASSHAAMR S SOLE LEVELER MACHINE Ot Z79.899 OTHER CITIZEN PARTICIPATION SPECIALIST (CURRENT) DRUG THERAPY 07/07/2018 CHRISTOPHER TANG MD, Ot E78. 2 MIXED HYPERLIPIDEMIA 07/07/2018 CHRISTOPHER TANG MD, Ot I10 ESSENTIAL (PRIMARY) HYPERTENSION 07/07/2018 CHRISTOPHER TANG MD, Ot I25. 10 ATHSCL HEART DISEASE OF [place] CORONARY 07/07/2018 CHRISTOPHER TANG MD Ot I48. 91 UNSPECIFIED ATRIAL FIBRILLATION 07/07/2018 CHRISTOPHER TANG MD Ot R07. 9 CHEST PAIN, UNSPECIFIED 07/07/2018 ADALBERTO ARENAS DO Ot M79.67 2 PAIN IN LEFT FOOT 07/07/2018 NISSA CASTAÑEDA MD Ot E11.42 TYPE 2 DIABETES MELLITUS WITH DIABETIC P 07/07/2018 NISSA CASTAÑEDA MD, Ot E11.621 TYPE 2 DIABETES MELLITUS WITH FOOT ULCER 07/07/2018 NISSA CASTAÑEDA MD Ot L03.115 CELLULITIS OF RIGHT LOWER LIMB 07/07/2018 NISSA CASTAÑEDA MD, Ot L97.521 NON-PRS CHRONIC ULCER OTH PRT L FOOT [place] 07/07/2018 NISSA CASTAÑEDA MD Ot E11.42 TYPE 2 DIABETES MELLITUS WITH DIABETIC P 07/07/2018 NISSA CASTAÑEDA MD Ot E11.621 TYPE 2 DIABETES MELLITUS WITH FOOT ULCER 07/07/2018 NISSA CASTAÑEDA MD Ot L03.115 CELLULITIS OF RIGHT LOWER LIMB 07/07/2018 NISSA CASTAÑEDA MD, Ot L97.521 NON-PRS CHRONIC ULCER OTH PRT L FOOT [place] 07/07/2018 ADALBERTO ARENAS DO Ot E08.62 1 DIABETES MELLITUS DUE TO UNDERLYING COND 07/07/2018 ADALBERTO ARENAS DO Ot R53.83 OTHER FATIGUE 07/07/2018 ADALBERTO ARENAS DO Ot R73.9 HYPERGLYCEMIA, UNSPECIFIED 07/07/2018 CLEMENCIA BATISTA MD Ot C91.00 ACUTE LYMPHOBLASTIC LEUKEMIA NOT HAVING 07/07/2018 CLEMENCIA BATISTA MD, Ot D50.9 IRON DEFICIENCY ANEMIA, UNSPECIFIED 07/07/2018 CLEMENCIA BATISTA MD Ot E11.43 TYPE 2 DIABETES W DIABETIC AUTONOMIC (PO 07/07/2018 CLEMENCIA BATISTA MD, Ot E78.5 HYPERLIPIDEMIA, UNSPECIFIED 07/07/2018 CLEMENCIA BATISTA MD Ot I10 ESSENTIAL (PRIMARY) HYPERTENSION 07/07/2018 LYNNE MD, KHANNA Ot I25.10 ATHSCL HEART DISEASE OF [place] CORONARY 07/07/2018 CLEMENCIA BATISTA MD Ot Z45.2 ENCOUNTER FOR ADJUSTMENT AND MANAGEMENT 07/07/2018 CLEMENCIA BATISTA MD Ot 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 07/07/2018 CLEMENCIA BATISTA MD Ot Z79.899 OTHER CITIZEN PARTICIPATION SPECIALIST (CURRENT) DRUG THERAPY 07/08/2018 KAYLEEN LUCASP Ot 250.00 DIAB MILLIE WO COMPL, TYPE II OR UNSPEC TY 07/08/2018 KAYLEEN LUCAS SOLE LEVELER MACHINE Ot 280.9 IRON DEFIC ANEMIA NOS 07/08/2018 KAYLEEN LUCAS SOLE LEVELER MACHINE Ot 414.00 CORON ATHEROSCLER NOS TYPE VESSEL, NATIV 07/08/2018 KAYLEEN LUCAS SOLE LEVELER MACHINE Ot V12.71 PERSONAL HISTORY OF PEPTIC ULCER DISEASE 07/08/2018 KAYLEEN LUCAS SOLE LEVELER MACHINE Ot V45.81 AORTOCORONARY BYPASS 07/08/2018 KAYLEEN LUCAS SOLE LEVELER MACHINE Ot V58.66 LONG-TERM (CURRENT) USE OF ASPIRIN 07/08/2018 KAYLEEN LUCAS SOLE LEVELER MACHINE Ot V58.67 LONG-TERM (CURRENT) USE OF INSULIN 07/08/2018 KAYLEEN LUCAS SOLE LEVELER MACHINE Ot V58.69 OTH MED,LT,CURRENT USE 07/08/2018 JORGE CARDENAS Ot 280.9 IRON DEFIC ANEMIA NOS 07/08/2018 RACHAEL ARENAS DOI Ot 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 07/08/2018 JORGE CARDENAS Ot 280.9 IRON DEFIC ANEMIA NOS 07/08/2018 AILEEN MORAN MD S Ot V72.84 EXAM PRE-OPERATIVE NOS 07/08/2018 ADALBERTO ARENAS DO Ot 250.00 DIAB MILLIE WO COMPL, TYPE II OR UNSPEC TY 07/08/2018 RACHAEL ARENAS DOI Ot 285.9 ANEMIA NOS 07/08/2018 ADALBERTO ARENAS DO Ot 786.05 SHORTNESS OF BREATH 07/08/2018 ADALBERTO ARENAS DO Ot 786.50 CHEST PAIN NOS 07/08/2018 ADALBERTO ARENAS DO Ot V58.69 OTH MED,LT,CURRENT USE 07/08/2018 ADALBERTO ARENAS DO Ot V58.83 ENCOUNTER FOR THERAPEUTIC DRUG MONITORIN 07/08/2018 ELLE CORMIER DO Ot 786. 05 SHORTNESS OF BREATH 07/08/2018 ELLE CORMIER DO Ot V45. 81 AORTOCORONARY BYPASS 07/08/2018 ARENAS DO, ADALBERTO Ot 250.00 DIAB MILLIE WO COMPL, TYPE II OR UNSPEC TY 07/08/2018 ARENAS DO, ADALBERTO Ot 272.4 HYPERLIPIDEMIA NEC/NOS 07/08/2018 ARENAS DO, ADALBERTO Ot 280.8 IRON DEFIC ANEMIA NEC 07/08/2018 ARENAS DO, ADALBERTO Ot 401.1 BENIGN HYPERTENSION 07/08/2018 ARENAS DO, ADALBERTO Ot V58.69 OT MED,LT,CURRENT USE 07/08/2018 ARENAS DO, ADALBERTO Ot 250.00 DIAB MILLIE WO COMPL, TYPE II OR UNSPEC TY 07/08/2018 ARENAS DO, ADALBERTO Ot 272.4 HYPERLIPIDEMIA NEC/NOS 07/08/2018 ARENAS DO, ADALBERTO Ot 280.8 IRON DEFIC ANEMIA NEC 07/08/2018 ARENAS DO, ADALBERTO Ot 401.1 BENIGN HYPERTENSION 07/08/2018 ARENAS DO, ADALBERTO Ot 414.00 CORON ATHEROSCLER NOS TYPE VESSEL, NATIV 07/08/2018 ELLE CORMIER DO Ot 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 07/08/2018 ELLE CORMIER DO Ot 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 07/08/2018 CLYDE JEAN, CHRISTOPHER Buchanan Ot 272. 4 HYPERLIPIDEMIA NEC/NOS 07/08/2018 CLYDE JEAN, CHRISTOPHER Buchanan Ot 401. 9 HYPERTENSION NOS 07/08/2018 CLYDE JEAN, CHRISTOPHER Buchanan Ot 414. 00 CORON ATHEROSCLER NOS TYPE VESSEL, NATIV 07/08/2018 CLYDE JEAN, CHRISTOPHER Buchanan Ot 786. 50 CHEST PAIN NOS 07/08/2018 Ot 272.4 HYPE RLIPIDEMIA NEC/NOS 07/08/2018 Ot 401.9 HYPE RTENSION NOS 07/08/2018 Ot 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, NATIV 07/08/2018 Ot 557.9 VASC INSUFF INTEST NOS 07/08/2018 ARENAS DO, ADALBERTO Ot 786.2 COUGH 07/08/2018 ARENAS DO, ADALBERTO Ot 250.00 DIAB MILLIE WO COMPL, TYPE II OR UNSPEC TY 07/08/2018 ARENAS DO, ADALBERTO Ot 272.4 HYPERLIPIDEMIA NEC/NOS 07/08/2018 ARENAS DO, ADALBERTO Ot 298.9 PSYCHOSIS NOS 07/08/2018 DAGOBERTO DO, ADALBERTO Ot 401.9 HYPERTENSION NOS 07/08/2018 ARENAS DO, ADALBERTO Ot 414.00 CORON ATHEROSCLER NOS TYPE VESSEL, NATIV 07/08/2018 DAGOBERTO AMOR ADALBERTO Ot 443.9 PERIPH VASCULAR DIS NOS 07/08/2018 DAGOBERTO DO ADALBERTO Ot 536.8 STOMACH FUNCTION DIS NEC 07/08/2018 DAGOBERTO AMOR ADALBERTO Ot 789.09 ABDOMINAL PAIN, OTHER SPECIFIED SITE 07/08/2018 DEAN JEAN, AILEEN S Ot V72.84 EXAM PRE-OPERATIVE NOS 07/08/2018 DEAN JEAN, AILEEN S Ot 553.1 UMBILICAL HERNIA 07/08/2018 DEAN JEAN, AILEEN [place] Ot V72.84 EXAM PRE-OPERATIVE NOS 07/08/2018 DAGOBERTO DO ADALBERTO Ot 250.00 DIAB MILLIE WO COMPL, TYPE II OR UNSPEC TY 07/08/2018 ARENAS DO, ADALBERTO Ot 272.4 HYPERLIPIDEMIA NEC/NOS 07/08/2018 DAGOBERTO DO, ADALBERTO Ot 280.8 IRON DEFIC ANEMIA NEC 07/08/2018 DAGOBERTO AMOR ADALBERTO Ot 401.1 BENIGN HYPERTENSION 07/08/2018 DAGOBERTO AMOR ADALBERTO Ot 414.00 CORON ATHEROSCLER NOS TYPE VESSEL, NATIV 07/08/2018 DAGOBERTO AMOR ADALBERTO Ot 455.6 HEMORRHOIDS NOS 07/08/2018 DAGOBERTO AMOR ADALBERTO Ot 530.81 ESOPHAGEAL REFLUX 07/08/2018 DAGOBERTO DO ADALBERTO Ot 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 07/08/2018 DAGOBERTO DO ADALBERTO Ot 722.10 LUMBAR DISC DISPLACEMENT 07/08/2018 DAGOBERTO AMOR ADALBERTO Ot V58.67 LONG-TERM (CURRENT) USE OF INSULIN 07/08/2018 DAGOBERTO DO, ADALBERTO Ot 250.00 DIAB MILLIE WO COMPL, TYPE II OR UNSPEC TY 07/08/2018 DAGOBERTO DO, ADALBERTO Ot 272.4 HYPERLIPIDEMIA NEC/NOS 07/08/2018 DAGOBERTO DO, ADALBERTO Ot 280.8 IRON DEFIC ANEMIA NEC 07/08/2018 DAGOBERTO DO, ADALBERTO Ot 401.1 BENIGN HYPERTENSION 07/08/2018 DAGOBERTO DO ADALBERTO Ot 414.00 CORON ATHEROSCLER NOS TYPE VESSEL, NATIV 07/08/2018 DAGOBERTO AMOR ADALBERTO Ot 455.3 EXT HEMORRHOID W/O COMPL 07/08/2018 RAENAS DO, ADALBERTO Ot 530.81 ESOPHAGEAL REFLUX 07/08/2018 ARENAS DO, ADALBERTO Ot 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 07/08/2018 ARENAS DO, ADALBERTO Ot 722.10 LUMBAR DISC DISPLACEMENT 07/08/2018 ARENAS DO, ADALBERTO Ot 786.2 COUGH 07/08/2018 ARENAS DO, ADALBERTO Ot 250.00 DIAB MILLIE WO COMPL, TYPE II OR UNSPEC TY 07/08/2018 ARENAS DO, ADALBERTO Ot 272.4 HYPERLIPIDEMIA NEC/NOS 07/08/2018 ARENAS DO, ADALBERTO Ot 280.8 IRON DEFIC ANEMIA NEC 07/08/2018 ARENAS DO, ADALBERTO Ot 401.1 BENIGN HYPERTENSION 07/08/2018 ARENAS DO, ADALBERTO Ot 414.00 CORON ATHEROSCLER NOS TYPE VESSEL, NATIV 07/08/2018 ARENAS DO, ADALBERTO Ot 455.6 HEMORRHOIDS NOS 07/08/2018 ARENAS DO, ADALBERTO Ot 530.81 ESOPHAGEAL REFLUX 07/08/2018 ARENAS DO, ADALBERTO Ot 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 07/08/2018 ARENAS DO, ADALBERTO Ot 722.10 LUMBAR DISC DISPLACEMENT 07/08/2018 ARENAS DO, ADALBERTO Ot 786.2 COUGH 07/08/2018 ARENAS DO, ADALBERTO Ot 919.4 INSECT BITE NEC 07/08/2018 ARENAS DO, ADALBERTO Ot E000.8 OTHER EXTERNAL CAUSE STATUS 07/08/2018 ARENAS DO, ADALBERTO Ot E906.4 NONVENOM ARTHROPOD BITE 07/08/2018 ARENAS DO, ADALBERTO Ot V58.67 LONG-TERM (CURRENT) USE OF INSULIN 07/08/2018 AILEEN MORAN MD Ot C95.90 LEUKEMIA, UNSPECIFIED NOT HAVING ACHIEVE 07/08/2018 AILEEN MORAN MD Ot Z01.818 ENCOUNTER FOR OTHER PREPROCEDURAL EXAMIN 07/08/2018 AILEEN MORAN MD Ot Z11.2 ENCOUNTER FOR SCREENING FOR OTHER BACTER 07/08/2018 ARENAS DO, ADALBERTO Ot 250.00 07/08/2018 ARENAS DO, ADALBERTO Ot 786.2 07/08/2018 KAYLEEN LUCAS Ot D50.9 IRON DEFICIENCY ANEMIA, UNSPECIFIED 07/08/2018 DAGOBERTO AMOR ADALBERTO Ot K75.2 NONSPECIFIC REACTIVE HEPATITIS 07/08/2018 CHRISTOPHER TANG MD Ot I10 ESSENTIAL (PRIMARY) HYPERTENSION 07/08/2018 CHRISTOPHER TANG MD Ot I25. 10 ATHSCL HEART DISEASE OF [place] CORONARY 07/08/2018 CHRISTOPHER TANG MD Ot I48. 0 PAROXYSMAL ATRIAL FIBRILLATION 07/08/2018 CHRISTOPHER TANG MD Ot I65. 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 2 MIXED HYPERLIPIDEMIA 07/08/2018 CHRISTOPHER TANG MD Ot I10 ESSENTIAL (PRIMARY) HYPERTENSION 07/08/2018 CHRISTOPHER TANG MD Ot I25. 10 ATHSCL HEART DISEASE OF [place] CORONARY 07/08/2018 CHRISTOPHER TANG MD Ot I65. 23 OCCLUSION AND STENOSIS OF [place] 07/08/2018 KAYLEEN LUCASP Ot C91.00 ACUTE LYMPHOBLASTIC LEUKEMIA NOT HAVING 07/08/2018 KAYLEEN LUCASP Ot Z79.899 OTHER CITIZEN PARTICIPATION SPECIALIST (CURRENT) DRUG THERAPY 07/08/2018 KAYLEEN LUCAS Ot C91.00 ACUTE LYMPHOBLASTIC LEUKEMIA NOT HAVING 07/08/2018 KAYLEEN LUCASP Ot D50.9 IRON DEFICIENCY ANEMIA, UNSPECIFIED 07/08/2018 KAYLEEN LUCASP Ot Z79.899 OTHER [facility] (CURRENT) DRUG THERAPY 07/08/2018 BASSAM FISCHER Ot E78.2 MIXED HYPERLIPIDEMIA 07/08/2018 ANGUS DEJESUS, BASSAM K Ot I10 ESSENTIAL (PRIMARY) HYPERTENSION 07/08/2018 ANGUS DEJESUS, BASSAM K Ot I25.10 ATHSCL HEART DISEASE OF [place] CORONARY 07/08/2018 ANGUS PA, BASSAM K Ot I65.23 OCCLUSION AND STENOSIS OF [place] 07/08/2018 ANGUS PA, BASSAM K Ot E78.2 MIXED HYPERLIPIDEMIA 07/08/2018 ANGUS PA, BASSAM K Ot I10 ESSENTIAL (PRIMARY) HYPERTENSION 07/08/2018 ANGUS PA, BASSAM K Ot I25.10 ATHSCL HEART DISEASE OF [place] CORONARY 07/08/2018 ANGUS PA, BASSAM K Ot I65.23 OCCLUSION AND STENOSIS OF [place] 07/08/2018 ANGUS PA, BASSAM K Ot E78.2 MIXED HYPERLIPIDEMIA 07/08/2018 ANGUS PA, BASSAM K Ot I10 ESSENTIAL (PRIMARY) HYPERTENSION 07/08/2018 ANGUS DEJESUS, BASSAM K Ot I25.10 ATHSCL HEART DISEASE OF [place] CORONARY 07/08/2018 ANGUS DEJESUS, BASSAM K Ot I65.23 OCCLUSION AND STENOSIS OF [place] 07/08/2018 KAYLEEN LUCAS SOLE LEVELER MACHINE Ot C91.00 ACUTE LYMPHOBLASTIC LEUKEMIA NOT HAVING 07/08/2018 KAYLEEN LUCAS SOLE LEVELER MACHINE Ot D50.9 IRON DEFICIENCY ANEMIA, UNSPECIFIED 07/08/2018 KAYLEEN LUCAS SOLE LEVELER MACHINE Ot Z79.899 OTHER CITIZEN PARTICIPATION SPECIALIST (CURRENT) DRUG THERAPY 07/08/2018 CHRISTOPHER TANG MD Ot E78. 2 MIXED HYPERLIPIDEMIA 07/08/2018 CHRISTOPHER TANG MD Ot I10 ESSENTIAL (PRIMARY) HYPERTENSION 07/08/2018 CHRISTOPHER TANG MD Ot I25. 10 ATHSCL HEART DISEASE OF [place] CORONARY 07/08/2018 CHRISTOPHER TANG MD Ot I48. 91 UNSPECIFIED ATRIAL FIBRILLATION 07/08/2018 CHRISTOPHER TANG MD Ot R07. 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 07/08/2018 NISSA CASTAÑEDA MD, Ot E11.621 TYPE 2 DIABETES MELLITUS WITH FOOT ULCER 07/08/2018 NISSA CASTAÑEDA MD, Ot L03.115 CELLULITIS OF RIGHT LOWER LIMB 07/08/2018 NISSA CASTAÑEDA MD, Ot L97.521 NON-PRS CHRONIC ULCER OTH PRT L FOOT [place] 07/08/2018 ARENASLAYLA AMOR ADALBERTO Ot E08.62 1 DIABETES MELLITUS DUE TO UNDERLYING COND 07/08/2018 ARENAS DO, ADALBERTO Ot R53.83 OTHER FATIGUE 07/08/2018 ARENAS DO, ADALBERTO Ot R73.9 HYPERGLYCEMIA, UNSPECIFIED 07/08/2018 CLEMENCIA ABTISTA MD Ot C91.00 ACUTE LYMPHOBLASTIC LEUKEMIA NOT HAVING 07/08/2018 CLEMENCIA BATISTA MD Ot D50.9 IRON DEFICIENCY ANEMIA, UNSPECIFIED 07/08/2018 CLEMENCIA BATISTA MD Ot E11.43 TYPE 2 DIABETES W DIABETIC AUTONOMIC (PO 07/08/2018 CLEMENCIA BATISTA MD Ot E78.5 HYPERLIPIDEMIA, UNSPECIFIED 07/08/2018 CLEMENCIA BATISTA MD Ot I10 ESSENTIAL (PRIMARY) HYPERTENSION 07/08/2018 CLEMENCIA BATISTA MD Ot I25.10 ATHSCL HEART DISEASE OF [place] CORONARY 07/08/2018 CLEMENCIA BATISTA MD Ot Z45.2 ENCOUNTER FOR ADJUSTMENT AND MANAGEMENT 07/08/2018 CLEMENCIA BATISTA MD Ot Z79.4 [facility] (CURRENT) USE OF INSULIN 07/08/2018 CLEMENCIA BATISTA MD Ot Z79.899 OTHER CITIZEN PARTICIPATION SPECIALIST (CURRENT) DRUG THERAPY 07/12/2018 CLEMENCIA BATISTA MD Ot C91.00 ACUTE LYMPHOBLASTIC LEUKEMIA NOT HAVING 07/12/2018 CLEMENCIA BATISTA MD Ot D50.9 IRON DEFICIENCY ANEMIA, UNSPECIFIED 07/12/2018 CLEMENCIA BATISTA MD Ot E11.43 TYPE 2 DIABETES W DIABETIC AUTONOMIC (PO 07/12/2018 CLEMENCIA BATISTA MD Ot E78.5 HYPERLIPIDEMIA, UNSPECIFIED 07/12/2018 CLEMENCIA BATISTA MD Ot I10 ESSENTIAL (PRIMARY) HYPERTENSION 07/12/2018 CLEMENCIA BATISTA MD Ot I25.10 ATHSCL HEART DISEASE OF [place] CORONARY 07/12/2018 CLEMENCIA BATISTA MD Ot Z45.2 ENCOUNTER FOR ADJUSTMENT AND MANAGEMENT 07/12/2018 CLEMENCIA BATISTA MD Ot 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 07/12/2018 CLEMENCIA BATISTA MD Ot Z79.899 OTHER CITIZEN PARTICIPATION SPECIALIST (CURRENT) DRUG THERAPY 07/17/2018 CLEMENCIA BATISTA MD Ot C91.00 ACUTE LYMPHOBLASTIC LEUKEMIA NOT HAVING 07/17/2018 CLEMENCIA BATISTA MD Ot D50.9 IRON DEFICIENCY ANEMIA, UNSPECIFIED 07/17/2018 CLEMENCIA BATISTA MD Ot E11.43 TYPE 2 DIABETES W DIABETIC AUTONOMIC (PO 07/17/2018 CLEMENCIA BATISTA MD Ot E78.5 HYPERLIPIDEMIA, UNSPECIFIED 07/17/2018 CLEMENCIA BATISTA MD Ot I10 ESSENTIAL (PRIMARY) HYPERTENSION 07/17/2018 CLEMENCIA BATISTA MD Ot I25.10 ATHSCL HEART DISEASE OF [place] CORONARY 07/17/2018 CLEMENCIA BATISTA MD Ot Z45.2 ENCOUNTER FOR ADJUSTMENT AND MANAGEMENT 07/17/2018 CLEMENCIA BATISTA MD Ot 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 07/17/2018 CLEMENCIA BATISTA MD Ot Z79.899 OTHER [facility] (CURRENT) DRUG THERAPY 07/19/2018 CLEMENCIA BATISTA MD Ot C91.00 ACUTE LYMPHOBLASTIC LEUKEMIA NOT HAVING 07/19/2018 CLEMENCIA BATISTA MD Ot D50.9 IRON DEFICIENCY ANEMIA, UNSPECIFIED 07/19/2018 CLEMENCIA BATISTA MD Ot E11.43 TYPE 2 DIABETES W DIABETIC AUTONOMIC (PO 07/19/2018 CLEMENCIA BATISTA MD Ot E78.5 HYPERLIPIDEMIA, UNSPECIFIED 07/19/2018 CLEMENCIA BATISTA MD Ot I10 ESSENTIAL (PRIMARY) HYPERTENSION 07/19/2018 CLEMENCIA BATISTA MD Ot I25.10 ATHSCL HEART DISEASE OF [place] CORONARY 07/19/2018 CLEMENCIA BATISTA MD Ot Z45.2 ENCOUNTER FOR ADJUSTMENT AND MANAGEMENT 07/19/2018 CLEMENCIA BATISTA MD Ot 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 07/19/2018 CLEMENCIA BATISTA MD Ot Z79.899 OTHER [facility] (CURRENT) DRUG THERAPY 07/29/2018 ADALBERTO ARENAS DO Ot Z29.8 ENCOUNTER FOR OTHER SPECIFIED PROPHYLACT 08/23/2018 CLYDE JEAN, CHRISTOPHER Buchanan Ot E78. 5 HYPERLIPIDEMIA, UNSPECIFIED 08/23/2018 CLYDE JEAN, CHRISTOPHER Buchanan Ot I10 ESSENTIAL (PRIMARY) HYPERTENSION 08/23/2018 CHRISTOPHER TANG MD Ot I25. 10 ATHSCL HEART DISEASE OF [place] CORONARY 08/23/2018 CHRISTOPHER TANG MD Ot I34. 0 NONRHEUMATIC MITRAL (VALVE) INSUFFICIENC 09/02/2018 RACHAEL ARENAS DOI Ot Z29.8 ENCOUNTER FOR OTHER SPECIFIED PROPHYLACT 09/05/2018 RACHAEL ARENAS DOI Ot Z29.8 ENCOUNTER FOR OTHER SPECIFIED PROPHYLACT 09/12/2018 JORGE CARDENAS Ot C91.00 ACUTE LYMPHOBLASTIC LEUKEMIA NOT HAVING 09/12/2018 JORGE CARDENAS Ot Z45.2 ENCOUNTER FOR ADJUSTMENT AND MANAGEMENT 10/05/2018 DAGOBERTO AMOR ADALBERTO Ot Z29.8 ENCOUNTER FOR OTHER SPECIFIED PROPHYLACT 10/06/2018 ADALBERTO ARENAS DO Ot Z01.81 8 ENCOUNTER FOR OTHER PREPROCEDURAL EXAMIN 10/06/2018 RACHAEL ARENAS DOI Ot Z29.8 ENCOUNTER FOR OTHER SPECIFIED PROPHYLACT 10/19/2018 DAGOBERTO AMOR ADALBERTO Ot C91.01 ACUTE LYMPHOBLASTIC LEUKEMIA, IN REMISSI 10/19/2018 RACHAEL ARENAS DOI Ot D64.9 ANEMIA, UNSPECIFIED 10/19/2018 DAGOBERTO AMOR ADALBERTO Ot D69.6 THROMBOCYTOPENIA, UNSPECIFIED 10/19/2018 DAGOBERTO AMOR ADALBERTO Ot E11.40 TYPE 2 DIABETES MELLITUS WITH DIABETIC N 10/19/2018 ADALBERTO ARENAS DO Ot E11.65 TYPE 2 DIABETES MELLITUS WITH HYPERGLYCE 10/19/2018 RACHAEL ARENAS DOI Ot E78.00 PURE HYPERCHOLESTEROLEMIA, UNSPECIFIED 10/19/2018 DAGOBERTO AMOR ADALBERTO Ot E86.0 DEHYDRATION 10/19/2018 ADALBERTO ARENAS DO Ot I10 ESSENTIAL (PRIMARY) HYPERTENSION 10/19/2018 ADALBERTO ARENAS DO Ot I25.10 ATHSCL HEART DISEASE OF [place] CORONARY 10/19/2018 ADALBERTO ARENAS DO Ot I25.2 OLD MYOCARDIAL INFARCTION 10/19/2018 ADALBERTO ARENAS DO Ot I25.5 ISCHEMIC CARDIOMYOPATHY 10/19/2018 ADALBERTO ARENAS DO Ot I42.9 CARDIOMYOPATHY, UNSPECIFIED 10/19/2018 ADALBERTO ARENAS DO Ot I65.23 OCCLUSION AND STENOSIS OF BILATERAL [place] 10/19/2018 ADALBERTO ARENAS DO Ot J18.9 PNEUMONIA, UNSPECIFIED ORGANISM 10/19/2018 ADALBERTO ARENAS DO Ot J20.9 ACUTE BRONCHITIS, UNSPECIFIED 10/19/2018 ADALBERTO ARENAS DO Ot J32.9 CHRONIC SINUSITIS, UNSPECIFIED 10/19/2018 ADALBERTO ARENAS DO Ot J44.0 CHRONIC OBSTRUCTIVE PULMON DISEASE W ACU 10/19/2018 ADALBERTO ARENAS DO Ot J44.1 CHRONIC OBSTRUCTIVE PULMONARY DISEASE W 10/19/2018 ADALBERTO ARENAS DO Ot K21.9 GASTRO-ESOPHAGEAL REFLUX DISEASE WITHOUT 10/19/2018 ADALBERTO ARENAS DO Ot K22.4 DYSKINESIA OF ESOPHAGUS 10/19/2018 ADALBERTO ARENAS DO Ot M19.91 PRIMARY OSTEOARTHRITIS, UNSPECIFIED SITE 10/19/2018 ADALBERTO ARENAS DO Ot T38.0X 5A ADVERSE EFFECT OF GLUCOCORT/SYNTH ANALOG 10/19/2018 ADALBERTO ARENAS DO Ot Z79.4 [facility] (CURRENT) USE OF INSULIN 10/19/2018 ADALBERTO ARENAS DO Ot Z85.82 8 PERSONAL HISTORY OF OTHER MALIGNANT NEOP 10/19/2018 ADALBERTO ARENAS DO Ot Z86.19 PERSONAL HISTORY OF OTHER INFECTIOUS AND 10/19/2018 ADALBERTO ARENAS DO Ot Z86.71 8 PERSONAL HISTORY OF OTHER VENOUS THROMBO 10/19/2018 ADALBERTO ARENAS DO Ot Z86.79 PERSONAL HISTORY OF OTHER DISEASES OF TH 10/19/2018 ADALBERTO ARENAS DO Ot Z87.11 PERSONAL HISTORY OF PEPTIC ULCER DISEASE 10/19/2018 ADALBERTO ARENAS DO Ot Z87.89 1 PERSONAL HISTORY OF NICOTINE DEPENDENCE 10/19/2018 ADALBERTO ARENAS DO Ot Z92.21 PERSONAL HISTORY OF ANTINEOPLASTIC CHEMO 10/19/2018 ADALBERTO ARENAS DO Ot Z95.1 PRESENCE OF AORTOCORONARY BYPASS GRAFT 10/21/2018 JORGE CARDENAS Ot C91.00 ACUTE LYMPHOBLASTIC LEUKEMIA NOT HAVING 10/21/2018 JORGE CARDENAS Ot Z45.2 ENCOUNTER FOR ADJUSTMENT AND MANAGEMENT 10/21/2018 ADALBERTO ARENAS DO Ot C91.01 ACUTE LYMPHOBLASTIC LEUKEMIA, IN REMISSI 10/21/2018 ADALBERTO ARENAS DO Ot D64.9 ANEMIA, UNSPECIFIED 10/21/2018 ADALBERTO ARENAS DO Ot D69.6 THROMBOCYTOPENIA, UNSPECIFIED 10/21/2018 ADALBERTO ARENAS DO Ot E11.40 TYPE 2 DIABETES MELLITUS WITH DIABETIC N 10/21/2018 ADALBERTO ARENAS DO Ot E11.65 TYPE 2 DIABETES MELLITUS WITH HYPERGLYCE 10/21/2018 ADALBERTO ARENAS DO Ot E78.00 PURE HYPERCHOLESTEROLEMIA, UNSPECIFIED 10/21/2018 RACHAEL ARENAS DOI Ot E86.0 DEHYDRATION 10/21/2018 RACHAEL RAENAS DOI Ot I10 ESSENTIAL (PRIMARY) HYPERTENSION 10/21/2018 RACHAEL ARENAS DOI Ot I25.10 ATHSCL HEART DISEASE OF [place] CORONARY 10/21/2018 ADALBERTO ARENAS DO Ot I25.2 OLD MYOCARDIAL INFARCTION 10/21/2018 ADALBERTO ARENAS DO Ot I25.5 ISCHEMIC CARDIOMYOPATHY 10/21/2018 RACHAEL ARENAS DOI Ot I65.23 OCCLUSION AND STENOSIS OF BILATERAL [place] 10/21/2018 ADALBERTO ARENAS DO Ot J18.9 PNEUMONIA, UNSPECIFIED ORGANISM 10/21/2018 ADALBERTO ARENAS DO Ot J32.9 CHRONIC SINUSITIS, UNSPECIFIED 10/21/2018 ADALBERTO ARENAS DO Ot J44.0 CHRONIC OBSTRUCTIVE PULMON DISEASE W ACU 10/21/2018 ADALBERTO ARENAS DO Ot J44.1 CHRONIC OBSTRUCTIVE PULMONARY DISEASE W 10/21/2018 ADALBERTO ARENAS DO Ot K21.9 GASTRO-ESOPHAGEAL REFLUX DISEASE WITHOUT 10/21/2018 ADALBERTO ARENAS DO Ot K22.4 DYSKINESIA OF ESOPHAGUS 10/21/2018 ADALBERTO ARENAS DO Ot M19.91 PRIMARY OSTEOARTHRITIS, UNSPECIFIED SITE 10/21/2018 ADALBERTO ARENAS DO Ot T38.0X 5A ADVERSE EFFECT OF GLUCOCORT/SYNTH ANALOG 10/21/2018 ADALBERTO ARENAS DO Ot Z79.4 [facility] (CURRENT) USE OF INSULIN 10/21/2018 ADALBERTO ARENAS DO Ot Z85.82 8 PERSONAL HISTORY OF OTHER MALIGNANT NEOP 10/21/2018 ADALBERTO ARENAS DO Ot Z86.19 PERSONAL HISTORY OF OTHER INFECTIOUS AND 10/21/2018 ADALBERTO ARENAS DO Ot Z86.71 8 PERSONAL HISTORY OF OTHER VENOUS THROMBO 10/21/2018 ADALBERTO ARENAS DO Ot Z86.79 PERSONAL HISTORY OF OTHER DISEASES OF TH 10/21/2018 ADALBERTO ARENAS DO Ot Z87.11 PERSONAL HISTORY OF PEPTIC ULCER DISEASE 10/21/2018 ADALBERTO ARENAS DO Ot Z87.89 1 PERSONAL HISTORY OF NICOTINE DEPENDENCE 10/21/2018 ADALBERTO ARENAS DO Ot Z92.21 PERSONAL HISTORY OF ANTINEOPLASTIC CHEMO 10/21/2018 ADALBERTO ARENAS DO Ot Z95.1 PRESENCE OF AORTOCORONARY BYPASS GRAFT 10/27/2018 ADALBERTO ARENAS DO Ot J22 UNSPECIFIED ACUTE LOWER RESPIRATORY INFE 10/27/2018 ADALBERTO ARENAS DO Ot Z95.1 PRESENCE OF AORTOCORONARY BYPASS GRAFT 11/02/2018 THERESAJORGE BERNAL N Ot C91.00 ACUTE LYMPHOBLASTIC LEUKEMIA NOT HAVING 11/02/2018 THERESAJORGE Ot Z45.2 ENCOUNTER FOR ADJUSTMENT AND MANAGEMENT 11/03/2018 THERESAJORGE N Ot C91.00 ACUTE LYMPHOBLASTIC LEUKEMIA NOT HAVING 11/03/2018 THERESAJORGE BERNAL Ot Z45.2 ENCOUNTER FOR ADJUSTMENT AND MANAGEMENT 11/06/2018 ADALBERTO ARENAS DO Ot Z29.8 ENCOUNTER FOR OTHER SPECIFIED PROPHYLACT 11/07/2018 ADALBERTO ARENAS DO Ot Z29.8 ENCOUNTER FOR OTHER SPECIFIED PROPHYLACT 11/14/2018 ADALBERTO ARENAS DO Ot J22 UNSPECIFIED ACUTE LOWER RESPIRATORY INFE 11/14/2018 ADALBERTO ARENAS DO Ot Z95.1 PRESENCE OF AORTOCORONARY BYPASS GRAFT 11/16/2018 ADALBERTO ARENAS DO Ot J22 UNSPECIFIED ACUTE LOWER RESPIRATORY INFE 11/16/2018 ADALBERTO ARENAS DO Ot Z95.1 PRESENCE OF AORTOCORONARY BYPASS GRAFT 11/21/2018 W 461.1 ACUT E FRONTAL SINUSITIS 11/21/2018 W 466.0 ACUT E BRONCHITIS 11/21/2018 W 491.20 OBS TRUCTIVE CHRONIC BRONCHITIS, WITHOUT EXACERBATION 11/21/2018 W J01.10 ACU TE FRONTAL SINUSITIS, UNSPECIFIED 11/21/2018 W J20.9 ACUT E BRONCHITIS, UNSPECIFIED 11/21/2018 W J44.9 PARTS DATA WRITER TWAN OBSTRUCTIVE PULMONARY DISEASE, UNSPECIFIED 11/30/2018 ADALBERTO ARENAS DO Ot E11.9 TYPE 2 DIABETES MELLITUS WITHOUT COMPLIC 11/30/2018 ARENAS DO, ADALBERTO Ot I10 ESSENTIAL (PRIMARY) HYPERTENSION 11/30/2018 ARENAS DO, ADALBERTO Ot R53.83 OTHER FATIGUE 12/05/2018 ARENAS DO, ADALBERTO Ot E11.9 TYPE 2 DIABETES MELLITUS WITHOUT COMPLIC 12/05/2018 ARENAS DO, ADALBERTO Ot I10 ESSENTIAL (PRIMARY) HYPERTENSION 12/05/2018 ARENAS DO, ADALBERTO Ot R53.83 OTHER [place]IGUE 12/09/2018 ARENAS DO, ADALBERTO Ot Z29.8 ENCOUNTER FOR OTHER SPECIFIED PROPHYLACT 12/19/2018 ARENAS DO, ADALBERTO Ot Z29.8 ENCOUNTER FOR OTHER SPECIFIED PROPHYLACT 12/20/2018 ARENAS DO, ADALBERTO Ot E11.9 TYPE 2 DIABETES MELLITUS WITHOUT COMPLIC 12/20/2018 ARENAS DO, ADALBERTO Ot I10 ESSENTIAL (PRIMARY) HYPERTENSION 12/20/2018 ARENAS DO, ADALBERTO Ot R53.83 OTHER [place]IGUE 12/21/2018 JORGE CARDENAS Ot C91.00 ACUTE LYMPHOBLASTIC LEUKEMIA NOT HAVING 12/21/2018 JORGE CARDENAS Ot Z45.2 ENCOUNTER FOR ADJUSTMENT AND MANAGEMENT 01/06/2019 JORGE CARDENAS Ot C91.00 ACUTE LYMPHOBLASTIC LEUKEMIA NOT HAVING 01/11/2019 ARENAS DO, ADALBERTO Ot Z29.8 ENCOUNTER FOR OTHER SPECIFIED PROPHYLACT 01/13/2019 ARENAS DO, ADALBERTO Ot Z29.8 ENCOUNTER FOR OTHER SPECIFIED PROPHYLACT 01/29/2019 ARENAS DO, ADALBERTO Ot J01.10 ACUTE FRONTAL SINUSITIS, UNSPECIFIED 01/29/2019 ARENAS DO, ADALBERTO Ot J20.9 ACUTE BRONCHITIS, UNSPECIFIED 01/29/2019 ARENAS DO, ADALBERTO Ot J44.0 CHRONIC OBSTRUCTIVE PULMON DISEASE W ACU 01/30/2019 ARENAS DO, ADALBERTO Ot J01.10 ACUTE FRONTAL SINUSITIS, UNSPECIFIED 01/30/2019 ARENAS DO, ADALBERTO Ot J20.9 ACUTE BRONCHITIS, UNSPECIFIED 01/30/2019 ARENAS DO, ADALBERTO Ot J44.0 CHRONIC OBSTRUCTIVE PULMON DISEASE W ACU 02/12/2019 ARENAS DO, ADALBERTO Ot Z29.8 ENCOUNTER FOR OTHER SPECIFIED PROPHYLACT 02/14/2019 ARENAS DO, ADALBERTO Ot Z29.8 ENCOUNTER FOR OTHER SPECIFIED PROPHYLACT 02/15/2019 JORGE CARDENAS Ot C91.00 ACUTE LYMPHOBLASTIC LEUKEMIA NOT HAVING 02/24/2019 ADALBERTO ARENAS DO Ot C91.91 LYMPHOID LEUKEMIA, UNSPECIFIED, IN REMIS 02/24/2019 ADALBERTO ARENAS DO Ot D64.9 ANEMIA, UNSPECIFIED 02/24/2019 ADALBERTO ARENAS DO Ot E11.40 TYPE 2 DIABETES MELLITUS WITH DIABETIC N 02/24/2019 ADALBERTO ARENAS DO Ot E78.00 PURE HYPERCHOLESTEROLEMIA, UNSPECIFIED 02/24/2019 ADALBERTO ARENAS DO Ot E78.5 HYPERLIPIDEMIA, UNSPECIFIED 02/24/2019 ADALBERTO ARENAS DO Ot E86.0 DEHYDRATION 02/24/2019 ADALBERTO ARENAS DO Ot I11.0 HYPERTENSIVE HEART DISEASE WITH HEART FA 02/24/2019 ADALBERTO ARENAS DO Ot I25.10 ATHSCL HEART DISEASE OF [place] CORONARY 02/24/2019 ADALBERTO ARENAS DO Ot I25.2 OLD MYOCARDIAL INFARCTION 02/24/2019 ADALBERTO ARENAS DO Ot I48.91 UNSPECIFIED ATRIAL FIBRILLATION 02/24/2019 ADALBERTO ARENAS DO Ot I50.22 CHRONIC SYSTOLIC (CONGESTIVE) HEART FAIL 02/24/2019 ADALBERTO ARENAS DO Ot I65.23 OCCLUSION AND STENOSIS OF BILATERAL [place] 02/24/2019 ADALBERTO ARENAS DO Ot I95.1 ORTHOSTATIC HYPOTENSION 02/24/2019 ADALBERTO ARENAS DO Ot J44.9 CHRONIC OBSTRUCTIVE PULMONARY DISEASE, U 02/24/2019 ADALBERTO ARENAS DO Ot K21.9 GASTRO-ESOPHAGEAL REFLUX DISEASE WITHOUT 02/24/2019 ADALBERTO ARENAS DO Ot R42 DIZZINESS AND GIDDINESS 02/24/2019 ADALBERTO ARENAS DO Ot 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 02/24/2019 ADALBERTO ARENAS DO Ot Z85.82 8 PERSONAL HISTORY OF OTHER MALIGNANT NEOP 02/24/2019 ADALBERTO ARENAS DO Ot Z86.71 8 PERSONAL HISTORY OF OTHER VENOUS THROMBO 02/24/2019 ADALBERTO ARENAS DO Ot Z87.01 PERSONAL HISTORY OF PNEUMONIA (RECURRENT 02/24/2019 ADALBERTO ARENAS DO Ot Z87.89 1 PERSONAL HISTORY OF NICOTINE DEPENDENCE 02/24/2019 ADALBERTO ARENAS DO Ot Z92.21 PERSONAL HISTORY OF ANTINEOPLASTIC CHEMO 02/24/2019 ADALBERTO ARENAS DO Ot Z95.1 PRESENCE OF AORTOCORONARY BYPASS GRAFT 02/24/2019 ADALBERTO ARENAS DO Ot C91.91 LYMPHOID LEUKEMIA, UNSPECIFIED, IN REMIS 02/24/2019 ADALBERTO ARENAS DO Ot D64.9 ANEMIA, UNSPECIFIED 02/24/2019 ADALBERTO ARENAS DO Ot E11.40 TYPE 2 DIABETES MELLITUS WITH DIABETIC N 02/24/2019 ADALBERTO ARENAS DO Ot E78.00 PURE HYPERCHOLESTEROLEMIA, UNSPECIFIED 02/24/2019 ADALBERTO ARENAS DO Ot E78.5 HYPERLIPIDEMIA, UNSPECIFIED 02/24/2019 ADALBERTO ARENAS DO Ot E86.0 DEHYDRATION 02/24/2019 ADALBERTO ARENAS DO Ot I11.0 HYPERTENSIVE HEART DISEASE WITH HEART FA 02/24/2019 ADALBERTO ARENAS DO Ot I25.10 ATHSCL HEART DISEASE OF [place] CORONARY 02/24/2019 ADALBERTO ARENAS DO Ot I25.2 OLD MYOCARDIAL INFARCTION 02/24/2019 ADALBERTO ARENAS DO Ot I48.91 UNSPECIFIED ATRIAL FIBRILLATION 02/24/2019 ADALBERTO ARENAS DO Ot I50.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 SYSTOLIC (CONGESTIVE) HEART FAIL 02/24/2019 ADALBERTO ARENAS DO Ot I65.23 OCCLUSION AND STENOSIS OF BILATERAL [place] 02/24/2019 ADALBERTO ARENAS DO Ot I95.1 ORTHOSTATIC HYPOTENSION 02/24/2019 ADALBERTO ARENAS DO Ot J44.9 CHRONIC OBSTRUCTIVE PULMONARY DISEASE, U 02/24/2019 ADALBERTO ARENAS DO Ot K21.9 GASTRO-ESOPHAGEAL REFLUX DISEASE WITHOUT 02/24/2019 ADALBERTO ARENAS DO Ot R42 DIZZINESS AND GIDDINESS 02/24/2019 ADALBERTO ARENAS DO Ot 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 02/24/2019 ADALBERTO ARENAS DO Ot Z85.82 8 PERSONAL HISTORY OF OTHER MALIGNANT NEOP 02/24/2019 ADALBERTO ARENAS DO Ot Z86.71 8 PERSONAL HISTORY OF OTHER VENOUS THROMBO 02/24/2019 ADALBERTO ARENAS DO Ot Z87.01 PERSONAL HISTORY OF PNEUMONIA (RECURRENT 02/24/2019 ADALBERTO ARENAS DO Ot Z87.89 1 PERSONAL HISTORY OF NICOTINE DEPENDENCE 02/24/2019 ADALBERTO ARENAS DO Ot Z92.21 PERSONAL HISTORY OF ANTINEOPLASTIC CHEMO 02/24/2019 ADALBERTO ARENAS DO Ot Z95.1 PRESENCE OF AORTOCORONARY BYPASS GRAFT 02/27/2019 JORGE CARDENAS Fernandez Ot C91.00 ACUTE LYMPHOBLASTIC LEUKEMIA NOT HAVING 02/27/2019 THERESA, JORGE Presley Ot Z45.2 ENCOUNTER FOR ADJUSTMENT AND MANAGEMENT 03/02/2019 THERESA JORGE Presley Ot C91.00 ACUTE LYMPHOBLASTIC LEUKEMIA NOT HAVING 03/15/2019 RACHAEL ARENAS DOI Ot Z29.8 ENCOUNTER FOR OTHER SPECIFIED PROPHYLACT 03/17/2019 RACHAEL ARENAS DOI Ot Z29.8 ENCOUNTER FOR OTHER SPECIFIED PROPHYLACT 04/07/2019 THERESA JORGE Presley Ot C91.00 ACUTE LYMPHOBLASTIC LEUKEMIA NOT HAVING 04/07/2019 JORGE CARDENAS Ot D50.9 IRON DEFICIENCY ANEMIA, UNSPECIFIED 04/07/2019 THERESA JORGE N Ot E11.43 TYPE 2 DIABETES W DIABETIC AUTONOMIC (PO 04/07/2019 THERESAJORGE Ot E78.5 HYPERLIPIDEMIA, UNSPECIFIED 04/07/2019 JORGE CARDENAS N Ot I10 ESSENTIAL (PRIMARY) HYPERTENSION 04/07/2019 JORGE CARDENAS Ot I25.10 ATHSCL HEART DISEASE OF [place] CORONARY 04/07/2019 THERESAJORGE Ot Z79.4 [facility] (CURRENT) USE OF INSULIN 04/07/2019 THERESAJORGE BERNAL Ot Z79.899 OTHER [facility] (CURRENT) DRUG THERAPY 04/11/2019 RACHAEL ARENAS DOI Ot E08.62 1 DIABETES MELLITUS DUE TO UNDERLYING COND 04/11/2019 DAGOBERTO AMOR ADALBERTO Ot E78.00 PURE HYPERCHOLESTEROLEMIA, UNSPECIFIED 04/11/2019 DAGOBERTO AMOR ADALBERTO Ot E78.1 PURE HYPERGLYCERIDEMIA 04/11/2019 RACHAEL ARENAS DOI Ot L97.90 9 NON-PRS CHRONIC ULC UNSP PRT OF UNSP LOW 04/14/2019 JORGE CARDENAS Fernandez Ot C91.00 ACUTE LYMPHOBLASTIC LEUKEMIA NOT HAVING 04/14/2019 JORGE CARDENAS Ot D50.9 IRON DEFICIENCY ANEMIA, UNSPECIFIED 04/14/2019 JORGE CARDENAS N Ot E11.43 TYPE 2 DIABETES W DIABETIC AUTONOMIC (PO 04/14/2019 THERESAJORGE BERNAL Ot E78.5 HYPERLIPIDEMIA, UNSPECIFIED 04/14/2019 JORGE CARDENAS N Ot I10 ESSENTIAL (PRIMARY) HYPERTENSION 04/14/2019 JORGE CARDENAS N Ot I25.10 ATHSCL HEART DISEASE OF [place] CORONARY 04/14/2019 JORGE CARDENAS N Ot 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 04/14/2019 JORGE CARDENAS N Ot Z79.899 OTHER CITIZEN PARTICIPATION SPECIALIST (CURRENT) DRUG THERAPY 04/16/2019 DAGOBERTO AMOR ADALBERTO Ot Z29.8 ENCOUNTER FOR OTHER SPECIFIED PROPHYLACT 04/27/2019 DAGOBERTO DO, ADALBERTO Ot E08.62 1 DIABETES MELLITUS DUE TO UNDERLYING COND 04/27/2019 ARENAS DO, ADALBERTO Ot E78.00 PURE HYPERCHOLESTEROLEMIA, UNSPECIFIED 04/27/2019 ARENAS DO, ADALBERTO Ot E78.1 PURE HYPERGLYCERIDEMIA 04/27/2019 ARENAS DO, ADALBERTO Ot L97.90 9 NON-PRS CHRONIC ULC UNSP PRT OF UNSP LOW 05/17/2019 DAGOBERTO AMOR ADALBERTO Ot Z29.8 ENCOUNTER FOR OTHER SPECIFIED PROPHYLACT 05/30/2019 JORGE CARDENAS N Ot C91.00 ACUTE LYMPHOBLASTIC LEUKEMIA NOT HAVING 05/30/2019 JORGE CARDENAS N Ot D50.9 IRON DEFICIENCY ANEMIA, UNSPECIFIED 05/30/2019 THERESA, BOBAN N Ot E11.43 TYPE 2 DIABETES W DIABETIC AUTONOMIC (PO 05/30/2019 THERESA, BOBAN N Ot E78.5 HYPERLIPIDEMIA, UNSPECIFIED 05/30/2019 THERESA, BOBAN N Ot I10 ESSENTIAL (PRIMARY) HYPERTENSION 05/30/2019 THERESA, BOBAN N Ot I25.10 ATHSCL HEART DISEASE OF [place] CORONARY 05/30/2019 JORGE CARDENAS N Ot Z79.4 [facility] (CURRENT) USE OF INSULIN 05/30/2019 THERESAJORGE N Ot Z79.899 OTHER CITIZEN PARTICIPATION SPECIALIST (CURRENT) DRUG THERAPY 06/06/2019 THERESA BOBAN N Ot C91.00 ACUTE LYMPHOBLASTIC LEUKEMIA NOT HAVING 06/06/2019 THERESA, BOBAN N Ot D50.9 IRON DEFICIENCY ANEMIA, UNSPECIFIED 06/06/2019 THERESA, BOBAN N Ot E11.43 TYPE 2 DIABETES W DIABETIC AUTONOMIC (PO 06/06/2019 THERESA, BOBAN N Ot E78.5 HYPERLIPIDEMIA, UNSPECIFIED 06/06/2019 THERESA, BOBAN N Ot I10 ESSENTIAL (PRIMARY) HYPERTENSION 06/06/2019 THERESA BOBAN N Ot I25.10 ATHSCL HEART DISEASE OF [place] CORONARY 06/06/2019 JORGE CARDENAS Fernandez Ot Z79.4 [facility] (CURRENT) USE OF INSULIN 06/06/2019 JORGE CARDENAS Ot Z79.899 OTHER [facility] (CURRENT) DRUG THERAPY 06/06/2019 JORGE CARDENAS Fernandez Ot C91.00 ACUTE LYMPHOBLASTIC LEUKEMIA NOT HAVING 06/06/2019 JORGE CARDENAS Fernandez Ot D50.9 IRON DEFICIENCY ANEMIA, UNSPECIFIED 06/06/2019 JORGE CARDENAS Fernandez Ot E11.43 TYPE 2 DIABETES W DIABETIC AUTONOMIC (PO 06/06/2019 JORGE CARDENAS Fernandez Ot E78.5 HYPERLIPIDEMIA, UNSPECIFIED 06/06/2019 JORGE CARDENAS Fernandez Ot I10 ESSENTIAL (PRIMARY) HYPERTENSION 06/06/2019 JORGE CARDENAS Fernandez Ot I25.10 ATHSCL HEART DISEASE OF [place] CORONARY 06/06/2019 JORGE CARDENAS Fernandez Ot Z79.4 [facility] (CURRENT) USE OF INSULIN 06/06/2019 JORGE CARDENAS Fernandez Ot Z79.899 OTHER [facility] (CURRENT) DRUG THERAPY 06/18/2019 ARENAS DO ADALBERTO Ot Z29.8 ENCOUNTER FOR OTHER SPECIFIED PROPHYLACT 06/20/2019 ARENAS DO, ADALBERTO Ot Z29.8 ENCOUNTER FOR OTHER SPECIFIED PROPHYLACT 06/21/2019 DAGOBERTO DO ADALBERTO Ot E78.1 PURE HYPERGLYCERIDEMIA 06/21/2019 DAGOBERTO DO ADALBERTO Ot N39.0 URINARY TRACT INFECTION, SITE NOT SPECIF 06/21/2019 ARENAS DO ADALBERTO Ot R53.83 OTHER FATIGUE 06/21/2019 DAGOBERTO DO ADALBERTO Ot Z00.00 ENCNTR FOR GENERAL ADULT MEDICAL EXAM W/ 06/21/2019 CLYDE JEAN, CHRISTOPHER Buchanan Ot C91. 01 ACUTE LYMPHOBLASTIC LEUKEMIA, IN REMISSI 06/21/2019 CLYDE JEAN, CHRISTOPHER Buchanan Ot D64. 9 ANEMIA, UNSPECIFIED 06/21/2019 CHRISTOPHER TANG MD Ot E11. 42 TYPE 2 DIABETES MELLITUS WITH DIABETIC P 06/21/2019 CHRISTOPHER TANG MD Ot E78. 00 PURE HYPERCHOLESTEROLEMIA, UNSPECIFIED 06/21/2019 CHRISTOPHER TANG MD Ot G57. 02 LESION OF SCIATIC NERVE, LEFT LOWER LIMB 06/21/2019 CHRISTOPHER TANG MD Ot I12. 9 HYPERTENSIVE CHRONIC KIDNEY DISEASE W ST 06/21/2019 CHRISTOPHER TANG MD, Ot I25. 10 ATHSCL HEART DISEASE OF [place] CORONARY 06/21/2019 CHRISTOPHER TANG MD, Ot I25. 2 OLD MYOCARDIAL INFARCTION 06/21/2019 CHRISTOPHER TANG MD, Ot I25. 5 ISCHEMIC CARDIOMYOPATHY 06/21/2019 CHRISTOPHER TANG MD, Ot I48. 91 UNSPECIFIED ATRIAL FIBRILLATION 06/21/2019 CHRISTOPHER TANG MD Ot I65. 23 OCCLUSION AND STENOSIS OF BILATERAL [place] 06/21/2019 CHRISTOPHER TANG MD, Ot J44. 9 CHRONIC OBSTRUCTIVE PULMONARY DISEASE, U 06/21/2019 CHRISTOPHER TANG MD, Ot K21. 9 GASTRO-ESOPHAGEAL REFLUX DISEASE WITHOUT 06/21/2019 CHRISTOPHER TANG MD, Ot K27. 9 PEPTIC ULC, SITE [facility], UNS AC OR CHR 06/21/2019 CHRISTOPHER TANG MD, Ot M19. 91 PRIMARY OSTEOARTHRITIS, UNSPECIFIED SITE 06/21/2019 CHRISTOPHER TANG MD, Ot N18. 9 CHRONIC KIDNEY DISEASE, UNSPECIFIED 06/21/2019 CHRISTOPHER TANG MD, Ot S72.145A NONDISPLACED INTERTROCHANTERIC FRACTURE 06/21/2019 CHRISTOPHER TANG MD Ot W10.8XXA FALL (ON) (FROM) OTHER STAIRS AND STEPS, 06/21/2019 CHRISTOPHER TANG MD, Ot Y92.009 [facility] PLACE IN [facility] NON-INSTITUT (PRIVATE 06/21/2019 CHRISTOPHER TANG MD, Ot Z79. 4 [facility] (CURRENT) USE OF INSULIN 06/21/2019 CHRISTOPHER TANG MD, Ot Z79. 82 [facility] (CURRENT) USE OF ASPIRIN 06/21/2019 CHRISTOPHER TANG MD, Ot Z85.828 PERSONAL HISTORY OF OTHER MALIGNANT NEOP 06/21/2019 CHRISTOPHER TANG MD, Ot Z86.718 PERSONAL HISTORY OF OTHER VENOUS THROMBO 06/21/2019 CHRISTOPHER TANG MD, Ot Z87.891 PERSONAL HISTORY OF NICOTINE DEPENDENCE 06/21/2019 CHRISTOPHER TANG MD, Ot Z92. 21 PERSONAL HISTORY OF ANTINEOPLASTIC CHEMO 06/21/2019 CHRISTOPHER TANG MD, Ot Z95. 1 PRESENCE OF AORTOCORONARY BYPASS GRAFT 06/21/2019 CLYDE MD, BASHAR J Ot C91. 01 ACUTE LYMPHOBLASTIC LEUKEMIA, IN REMISSI 06/21/2019 CHRISTOPHER TANG MD Ot D64. 9 ANEMIA, UNSPECIFIED 06/21/2019 CHRISTOPHER TANG MD Ot E11. 42 TYPE 2 DIABETES MELLITUS WITH DIABETIC P 06/21/2019 CHRISTOPHER TANG MD, Ot E78. 00 PURE HYPERCHOLESTEROLEMIA, UNSPECIFIED 06/21/2019 CHRISTOPHER TANG MD Ot G57. 02 LESION OF SCIATIC NERVE, LEFT LOWER LIMB 06/21/2019 CHRISTOPHER TANG MD Ot I12. 9 HYPERTENSIVE CHRONIC KIDNEY DISEASE W ST 06/21/2019 CHRISTOPHER TANG MD, Ot I25. 10 ATHSCL HEART DISEASE OF [place] CORONARY 06/21/2019 CHRISTOPHER TANG MD, Ot I25. 2 OLD MYOCARDIAL INFARCTION 06/21/2019 CHIRSTOPHER TANG MD, Ot I25. 5 ISCHEMIC CARDIOMYOPATHY 06/21/2019 CHRISTOPHER TANG MD Ot I48. 91 UNSPECIFIED ATRIAL FIBRILLATION 06/21/2019 CHRISTOPHER TANG MD Ot I65. 23 OCCLUSION AND STENOSIS OF BILATERAL [place] 06/21/2019 CHRISTOPHER TANG MD, Ot J44. 9 CHRONIC OBSTRUCTIVE PULMONARY DISEASE, U 06/21/2019 CHRISTOPHER TANG MD, Ot K21. 9 GASTRO-ESOPHAGEAL REFLUX DISEASE WITHOUT 06/21/2019 CHRISTOPHER TANG MD, Ot K27. 9 PEPTIC ULC, SITE UNS, UNSP AC OR CHR 06/21/2019 CHRISTOPHER TANG MD Ot M19. 91 PRIMARY OSTEOARTHRITIS, UNSPECIFIED SITE 06/21/2019 CHRISTOPHER TANG MD Ot N18. 9 CHRONIC KIDNEY DISEASE, UNSPECIFIED 06/21/2019 CHRISTOPHER TANG MD Ot S72.145A NONDISPLACED INTERTROCHANTERIC FRACTURE 06/21/2019 CHRISTOPHER TANG MD Ot W10.8XXA FALL (ON) (FROM) OTHER STAIRS AND STEPS, 06/21/2019 CHRISTOPHER TANG MD Ot Y92.[address] IN [facility] NON-INSTITUT (PRIVATE 06/21/2019 CHRISTOPHER TANG MD, Ot Z79. 4 CITIZEN PARTIC[employer]ATION SPECIALIST (CURRENT) USE OF INSULIN 06/21/2019 CHRISTOPHER TANG MD, Ot Z79. 82 CITIZEN PARTIC[employer]ATION SPECIALIST (CURRENT) USE OF ASPIRIN 06/21/2019 CHRISTOPHER TANG MD, Ot Z85.828 PERSONAL HISTORY OF OTHER MALIGNANT NEOP 06/21/2019 CHRISTOPHER TAGN MD, Ot Z86.718 PERSONAL HISTORY OF OTHER VENOUS THROMBO 06/21/2019 CHRISTOPHER TANG MD, Ot Z87.891 PERSONAL HISTORY OF NICOTINE DEPENDENCE 06/21/2019 CHRISTOPHER TANG MD, Ot Z92. 21 PERSONAL HISTORY OF ANTINEOPLASTIC CHEMO 06/21/2019 CHRISTOPHER TANG MD, Ot Z95. 1 PRESENCE OF AORTOCORONARY BYPASS GRAFT 06/23/2019 CHRISTOPHER TANG MD Ot A41. 9 SEPSIS, UNSPECIFIED ORGANISM 06/23/2019 CHRISTOPHER TANG MD, Ot C91. 01 ACUTE LYMPHOBLASTIC LEUKEMIA, IN REMISSI 06/23/2019 CHRISTOPHER TANG MD, Ot D62 ACUTE POSTHEMORRHAGIC ANEMIA 06/23/2019 CHRISTOPHER TANG MD, Ot D64. 9 ANEMIA, UNSPECIFIED 06/23/2019 CHRISTOPHER TANG MD Ot E11. 42 TYPE 2 DIABETES MELLITUS WITH DIABETIC P 06/23/2019 CHRISTOPHER TANG MD Ot E78. 00 PURE HYPERCHOLESTEROLEMIA, UNSPECIFIED 06/23/2019 CHRISTOPHER TANG MD, Ot G57. 02 LESION OF SCIATIC NERVE, LEFT LOWER LIMB 06/23/2019 CHRISTOPHER TANG MD Ot I12. 9 HYPERTENSIVE CHRONIC KIDNEY DISEASE W ST 06/23/2019 CHRISTOPHER TANG MD, Ot I25. 10 ATHSCL HEART DISEASE OF [place] CORONARY 06/23/2019 CHRISTOPHER TANG MD, Ot I25. 2 OLD MYOCARDIAL INFARCTION 06/23/2019 CHRISTOPHER TANG MD, Ot I25. 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 91 UNSPECIFIED ATRIAL FIBRILLATION 06/23/2019 CHRISTOPHER TANG MD Ot I50. 23 ACUTE ON CHRONIC SYSTOLIC (CONGESTIVE) H 06/23/2019 CHRISTOPHER TANG MD Ot I65. 23 OCCLUSION AND STENOSIS OF BILATERAL [place] 06/23/2019 CHRISTOPHER TANG MD Ot J01. 90 ACUTE SINUSITIS, UNSPECIFIED 06/23/2019 CHRISTOPHER TANG MD, Ot J40 BRONCHITIS, NOT SPECIFIED ACUTE OR CH 06/23/2019 CHRISTOPHER TANG MD, Ot J43. 9 EMPHYSEMA, UNSPECIFIED 06/23/2019 CHRISTOPHER TANG MD, Ot J44. 9 CHRONIC OBSTRUCTIVE PULMONARY DISEASE, U 06/23/2019 CHRISTOPHER TANG MD, Ot K21. 9 GASTRO-ESOPHAGEAL REFLUX DISEASE WITHOUT 06/23/2019 CHRISTOPHER TANG MD, Ot K27. 9 PEPTIC ULC, SITE UNSP, UNSP AC OR CHR 06/23/2019 CHRISTOPHER TANG MD Ot M19. 91 PRIMARY OSTEOARTHRITIS, UNSPECIFIED SITE 06/23/2019 CHRISTOPHER TANG MD, Ot N18. 9 CHRONIC KIDNEY DISEASE, UNSPECIFIED 06/23/2019 CHRISTOPHER TANG MD, Ot R41. 0 DISORIENTATION, UNSPECIFIED 06/23/2019 CHRISTOPHER TANG MD, Ot S72.145A NONDISPLACED INTERTROCHANTERIC FRACTURE 06/23/2019 CHRISTOPHER TANG MD Ot W10.8XXA FALL (ON) (FROM) OTHER STAIRS AND STEPS, 06/23/2019 CHRISTOPHER TANG MD Ot Y92.009 [facility] PL[facility] IN [facility] NON-INSTITUT (PRIVATE 06/23/2019 CHRISTOPHER TANG MD, Ot Z79. 4 [employer] (CURRENT) USE OF INSULIN 06/23/2019 CHRISTOPHER TANG MD, Ot Z79. 82 [employer] (CURRENT) USE OF ASPIRIN 06/23/2019 CHRISTOPHER TANG MD, Ot Z85.828 PERSONAL HISTORY OF OTHER MALIGNANT NEOP 06/23/2019 CHRISTOPHER TANG MD, Ot Z86.718 PERSONAL HISTORY OF OTHER VENOUS THROMBO 06/23/2019 CHRISTOPHER TANG MD, Ot Z87.891 PERSONAL HISTORY OF NICOTINE DEPENDENCE 06/23/2019 CHRISTOPHER TANG MD, Ot Z92. 21 PERSONAL HISTORY OF ANTINEOPLASTIC CHEMO 06/23/2019 CHRISTOPHER TANG MD, Ot Z95. 1 PRESENCE OF AORTOCORONARY BYPASS GRAFT 06/29/2019 JORGE CARDENAS Ot C91.00 ACUTE LYMPHOBLASTIC LEUKEMIA NOT HAVING 06/29/2019 JORGE CARDENAS Ot D50.9 IRON DEFICIENCY ANEMIA, UNSPECIFIED 06/29/2019 JORGE CARDENAS Ot E11.43 TYPE 2 DIABETES W DIABETIC AUTONOMIC (PO 06/29/2019 THERESA, BOBAN N Ot E78.5 HYPERLIPIDEMIA, UNSPECIFIED 06/29/2019 JORGE CARDENAS Fernandez Ot I10 ESSENTIAL (PRIMARY) HYPERTENSION 06/29/2019 JORGE CARDENAS Ot I25.10 ATHSCL HEART DISEASE OF [place] CORONARY 06/29/2019 JORGE CARDENAS Ot Z79.4 [facility] (CURRENT) USE OF INSULIN 06/29/2019 JORGE CARDENAS Ot Z79.899 OTHER CITIZEN PARTICIPATION SPECIALIST (CURRENT) DRUG THERAPY 07/05/2019 DAGOBERTO DO ADALBERTO Ot A41.9 SEPSIS, UNSPECIFIED ORGANISM 07/05/2019 DAGOBERTO DO ADALBERTO Ot C91.01 ACUTE LYMPHOBLASTIC LEUKEMIA, IN REMISSI 07/05/2019 DAGOBERTO AMOR ADALBERTO Ot D64.9 ANEMIA, UNSPECIFIED 07/05/2019 DAGOBERTO DO ADALBERTO Ot E11.42 TYPE 2 DIABETES MELLITUS WITH DIABETIC P 07/05/2019 DAGOBERTO DO ADALBERTO Ot E78.5 HYPERLIPIDEMIA, UNSPECIFIED 07/05/2019 DAGOBERTO AMOR ADALBERTO Ot F03.90 UNSPECIFIED DEMENTIA WITHOUT BEHAVIORAL 07/05/2019 DAGOBERTO AMRO ADALBERTO Ot G57.02 LESION OF SCIATIC NERVE, LEFT LOWER LIMB 07/05/2019 DAGOBERTO AMOR ADALBERTO Ot I12.9 HYPERTENSIVE CHRONIC KIDNEY DISEASE W ST 07/05/2019 DAGOBERTO AMOR ADALBERTO Ot I25.10 ATHSCL HEART DISEASE OF [place] CORONARY 07/05/2019 DAGOBERTO AMOR ADALBERTO Ot I25.2 OLD MYOCARDIAL INFARCTION 07/05/2019 DAGOBERTO AMOR ADALBERTO Ot I25.5 ISCHEMIC CARDIOMYOPATHY 07/05/2019 DAGOBERTO AMOR ADALBERTO Ot I48.91 UNSPECIFIED ATRIAL FIBRILLATION 07/05/2019 DAGOBERTO AMOR ADALBERTO Ot I50.23 ACUTE ON CHRONIC SYSTOLIC (CONGESTIVE) H 07/05/2019 DAGOBERTO AMOR ADALBERTO Ot I65.23 OCCLUSION AND STENOSIS OF [place] 07/05/2019 DAGOBERTO AMOR ADALBERTO Ot J01.90 ACUTE SINUSITIS, UNSPECIFIED 07/05/2019 DAGOBERTO AMOR ADALBERTO Ot J40 BRONCHITIS, NOT SPECIFIED ACUTE OR CH 07/05/2019 DAGOBERTO AMOR ADALBERTO Ot J43.9 EMPHYSEMA, UNSPECIFIED 07/05/2019 DAGOBERTO AMOR ADALBERTO Ot K21.9 GASTRO-ESOPHAGEAL REFLUX DISEASE WITHOUT 07/05/2019 DAGOBERTO DO ADALBERTO Ot K27.9 PEPTIC ULC, SITE UNSP, UNSP AC OR CHR 07/05/2019 ARENAS DO AADLBERTO Ot M19.91 PRIMARY OSTEOARTHRITIS, UNSPECIFIED SITE 07/05/2019 DAGOBERTO DO ADALBERTO Ot N18.9 CHRONIC KIDNEY DISEASE, UNSPECIFIED 07/05/2019 ARENAS DO ADALBERTO Ot R41.0 DISORIENTATION, UNSPECIFIED 07/05/2019 DAGOBERTO DO ADALBERTO Ot R45.3 DEMORALIZATION AND APATHY 07/05/2019 DAGOBERTO AMOR ADALBERTO Ot S72.14 5D NONDISP INTERTROCH FX L FEMUR, SUBS FOR 07/05/2019 ARENAS DO ADALBERTO Ot W10.8X XA FALL (ON) (FROM) OTHER STAIRS AND STEPS, 07/05/2019 DAGOBERTO AMOR ADALBERTO Ot Z79.4 [facility] (CURRENT) USE OF INSULIN 07/05/2019 RACHAEL ARENAS DOI Ot Z79.82 CIT[employer]EN PARTICIPATION SPECIALIST (CURRENT) USE OF ASPIRIN 07/05/2019 RACHAEL ARENAS DOI Ot Z86.71 8 PERSONAL HISTORY OF OTHER VENOUS THROMBO 07/05/2019 DAGOBERTO AMOR ADALBERTO Ot Z87.89 1 PERSONAL HISTORY OF NICOTINE DEPENDENCE 07/05/2019 DAGOBERTO AMOR ADALBERTO Ot Z95.1 PRESENCE OF AORTOCORONARY BYPASS GRAFT 07/14/2019 DAX YOUNG MD Ot S72.145D NONDISP INTERTROCH FX L FEMUR, SUBS FOR 07/14/2019 DAX YOUNG MD Ot W10.8XXD FALL (ON) (FROM) OTHER STAIRS AND STEPS, 07/20/2019 JORGE CARDENAS Ot C91.00 ACUTE LYMPHOBLASTIC LEUKEMIA NOT HAVING 07/20/2019 JORGE CARDENAS N Ot D50.9 IRON DEFICIENCY ANEMIA, UNSPECIFIED 07/20/2019 JORGE CARDENAS N Ot E11.43 TYPE 2 DIABETES W DIABETIC AUTONOMIC (PO 07/20/2019 JORGE CARDENAS Ot E78.5 HYPERLIPIDEMIA, UNSPECIFIED 07/20/2019 JORGE CARDENAS Ot I10 ESSENTIAL (PRIMARY) HYPERTENSION 07/20/2019 JORGE CARDENAS N Ot I25.10 ATHSCL HEART DISEASE OF [place] CORONARY 07/20/2019 JORGE CARDENAS Ot Z79.4 [facility] (CURRENT) USE OF INSULIN 07/20/2019 JORGE CARDENAS Ot Z79.899 OTHER [facility] (CURRENT) DRUG THERAPY 07/21/2019 ARENAS DO ADALBERTO Ot D64.9 ANEMIA, UNSPECIFIED 07/21/2019 ARENAS DO ADALBERTO Ot E11.9 TYPE 2 DIABETES MELLITUS WITHOUT COMPLIC 07/21/2019 ARENAS DO ADALBERTO Ot I11.0 HYPERTENSIVE HEART DISEASE WITH HEART FA 07/21/2019 ARENAS DO ADALBERTO Ot I50.9 HEART FAILURE, UNSPECIFIED 08/03/2019 DAX YOUNG MD, Ot S72.142A DISPLACED INTERTROCHANTERIC FRACTURE OF 08/03/2019 DAX YOUNG MD Ot Z98.890 OTHER SPECIFIED POSTPROCEDURAL STATES 08/07/2019 DAX YOUNG MD, Ot S72.142A DISPLACED INTERTROCHANTERIC FRACTURE OF 08/07/2019 DAX YOUNG MD, Ot Z98.890 OTHER SPECIFIED POSTPROCEDURAL STATES 08/09/2019 DAX YOUNG MD, Ot S72.145D NONDISP INTERTROCH FX L FEMUR, SUBS FOR 08/09/2019 DAX YOUNG MD Ot W10.8XXD FALL (ON) (FROM) OTHER STAIRS AND STEPS, 08/10/2019 ARENAS DO ADALBERTO Ot D64.9 ANEMIA, UNSPECIFIED 08/10/2019 ARENAS DO ADALBERTO Ot E11.9 TYPE 2 DIABETES MELLITUS WITHOUT COMPLIC 08/10/2019 ARENAS DO, ADALBERTO Ot I11.0 HYPERTENSIVE HEART DISEASE WITH HEART FA 08/10/2019 ARENAS DO ADALBERTO Ot I50.9 HEART FAILURE, UNSPECIFIED 08/14/2019 ARENAS DO ADALBERTO Ot S72.14 5D NONDISP INTERTROCH FX L FEMUR, SUBS FOR 08/14/2019 ARENAS DO ADALBERTO Ot W10.8X XD FALL (ON) (FROM) OTHER STAIRS AND STEPS, 08/22/2019 DAX YOUNG MD, Ot S72.142A DISPLACED INTERTROCHANTERIC FRACTURE OF 08/22/2019 DAX YOUNG MD Ot Z98.890 OTHER SPECIFIED POSTPROCEDURAL STATES 08/31/2019 DAX YOUNG MD, Ot S72.142A DISPLACED INTERTROCHANTERIC FRACTURE OF 08/31/2019 DAX YOUNG MD Ot Z98.890 OTHER SPECIFIED POSTPROCEDURAL STATES 09/01/2019 DAX YOUNG MD Ot S72.142A DISPLACED INTERTROCHANTERIC FRACTURE OF 09/01/2019 DAX YOUNG MD Ot Z98.890 OTHER SPECIFIED POSTPROCEDURAL STATES 09/05/2019 THERESA, BOBAN N Ot C91.00 ACUTE LYMPHOBLASTIC LEUKEMIA NOT HAVING 09/05/2019 THERESA, BOBAN N Ot D50.9 IRON DEFICIENCY ANEMIA, UNSPECIFIED 09/05/2019 THERESA, BOBAN N Ot E11.43 TYPE 2 DIABETES W DIABETIC AUTONOMIC (PO 09/05/2019 THERESA, BOBAN N Ot E78.5 HYPERLIPIDEMIA, UNSPECIFIED 09/05/2019 THERESA, BOBAN N Ot I10 ESSENTIAL (PRIMARY) HYPERTENSION 09/05/2019 THERESA, BOBAN N Ot I25.10 ATHSCL HEART DISEASE OF [place] CORONARY 09/05/2019 THERESA, BOBAN N Ot 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 09/05/2019 THERESA, BOBAN N Ot Z79.899 OTHER [facility] (CURRENT) DRUG THERAPY 09/06/2019 THERESA, BOBAN N Ot C91.00 ACUTE LYMPHOBLASTIC LEUKEMIA NOT HAVING 09/06/2019 THERESA, BOBAN N Ot D50.9 IRON DEFICIENCY ANEMIA, UNSPECIFIED 09/06/2019 THERESA, BOBAN N Ot E11.43 TYPE 2 DIABETES W DIABETIC AUTONOMIC (PO 09/06/2019 THERESA, BOBAN N Ot E78.5 HYPERLIPIDEMIA, UNSPECIFIED 09/06/2019 THERESA, BOBAN N Ot I10 ESSENTIAL (PRIMARY) HYPERTENSION 09/06/2019 THERESA, BOBAN N Ot I25.10 ATHSCL HEART DISEASE OF [place] CORONARY 09/06/2019 THERESA, BOBAN N Ot 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 09/06/2019 THERESA, BOBAN N Ot Z79.899 OTHER CITIZEN PARTICIPATION SPECIALIST (CURRENT) DRUG THERAPY 09/12/2019 ARENAS DO, ADALBERTO Ot S72.14 5D NONDISP INTERTROCH FX L FEMUR, SUBS FOR 09/12/2019 ARENAS DO ADALBERTO Ot W10.8X XD FALL (ON) (FROM) OTHER STAIRS AND STEPS, 09/13/2019 ARENAS DO ADALBERTO Ot S72.14 5D NONDISP INTERTROCH FX L FEMUR, SUBS FOR 09/13/2019 ARENAS DO, ADALBERTO Ot W10.8X XD FALL (ON) (FROM) OTHER STAIRS AND STEPS, 09/19/2019 ARENAS DO, ADALBERTO Ot E86.0 DEHYDRATION 09/19/2019 ARNEAS DO, ADALBERTO Ot R05 COUGH 09/19/2019 ARENAS DO, ADALBERTO Ot R50.9 FEVER, UNSPECIFIED 09/19/2019 DAX YOUNG MD Ot S72.142A DISPLACED INTERTROCHANTERIC FRACTURE OF 09/19/2019 DAX YOUNG MD Ot Z98.890 OTHER SPECIFIED POSTPROCEDURAL STATES 10/04/2019 ARENAS DO, ADALBERTO Ot S72.14 5D NONDISP INTERTROCH FX L FEMUR, SUBS FOR 10/04/2019 ARENAS DO, ADALBERTO Ot W10.8X XD FALL (ON) (FROM) OTHER STAIRS AND STEPS, 10/06/2019 ARENAS DO, ADALBERTO Ot S72.14 5D NONDISP INTERTROCH FX L FEMUR, SUBS FOR 10/06/2019 ARENAS DO, ADALBERTO Ot W10.8X XD FALL (ON) (FROM) OTHER STAIRS AND STEPS, 10/13/2019 ARENAS DO, ADALBERTO Ot E86.0 DEHYDRATION 10/13/2019 ARENAS DO, ADALBERTO Ot R05 COUGH 10/13/2019 ARENAS DO, ADALBERTO Ot R50.9 FEVER, UNSPECIFIED 10/16/2019 JORGE CARDENAS Ot C91.00 ACUTE LYMPHOBLASTIC LEUKEMIA NOT HAVING 10/16/2019 JORGE CARDENAS Ot D50.9 IRON DEFICIENCY ANEMIA, UNSPECIFIED 10/16/2019 JORGE CARDENAS Ot E11.43 TYPE 2 DIABETES W DIABETIC AUTONOMIC (PO 10/16/2019 JORGE CARDENAS Ot E78.5 HYPERLIPIDEMIA, UNSPECIFIED 10/16/2019 JORGE CARDENAS Ot I10 ESSENTIAL (PRIMARY) HYPERTENSION 10/16/2019 JORGE CARDENAS Ot I25.10 ATHSCL HEART DISEASE OF [place] CORONARY 10/16/2019 JORGE CARDENAS Ot J44.9 CHRONIC OBSTRUCTIVE PULMONARY DISEASE, U 10/16/2019 JORGE CARDENAS Ot S72.002 D FX UNSP PART OF NK OF L FEMR, SUBS FOR C 10/16/2019 JORGE CARDENAS Ot Z79.4 [facility] (CURRENT) USE OF INSULIN 10/16/2019 JORGE CARDNEAS Ot Z79.899 OTHER [facility] (CURRENT) DRUG THERAPY 10/16/2019 JORGE CARDENAS Ot Z92.21 PERSONAL HISTORY OF ANTINEOPLASTIC CHEMO 11/05/2019 ARENAS DO, ADALBERTO Ot Z29.8 ENCOUNTER FOR OTHER SPECIFIED PROPHYLACT 11/07/2019 ARENAS DO, ADALBERTO Ot 250.00 DIAB MILLIE WO COMPL, TYPE II OR UNSPEC TY 11/07/2019 ARENAS DO, ADALBERTO Ot 285.9 ANEMIA NOS 11/07/2019 ARENAS DO, ADALBERTO Ot 786.05 SHORTNESS OF BREATH 11/07/2019 ARENAS DO, ADALBERTO Ot 786.50 CHEST PAIN NOS 11/07/2019 ARENAS DO, ADALBERTO Ot V58.69 OTH MED,LT,CURRENT USE 11/07/2019 ARENAS DO, ADALBERTO Ot V58.83 ENCOUNTER FOR THERAPEUTIC DRUG MONITORIN 11/07/2019 ELLE CORMIER DO Ot 786. 05 SHORTNESS OF BREATH 11/07/2019 ELLE CORMIER DO Ot V45. 81 AORTOCORONARY BYPASS 11/07/2019 ARENAS DO, ADALBERTO Ot 250.00 DIAB MILLIE WO COMPL, TYPE II OR UNSPEC TY 11/07/2019 ARENAS DO, ADALBERTO Ot 272.4 HYPERLIPIDEMIA NEC/NOS 11/07/2019 ARENAS DO, ADALBERTO Ot 280.8 IRON DEFIC ANEMIA NEC 11/07/2019 ARENAS DO, ADALBERTO Ot 401.1 BENIGN HYPERTENSION 11/07/2019 ARENAS DO, ADALBERTO Ot V58.69 OTH MED,LT,CURRENT USE 11/07/2019 ARENAS DO, ADALBERTO Ot 250.00 DIAB MILLIE WO COMPL, TYPE II OR UNSPEC TY 11/07/2019 ARENAS DO, ADALBERTO Ot 272.4 HYPERLIPIDEMIA NEC/NOS 11/07/2019 ARENAS DO, ADALBERTO Ot 280.8 IRON DEFIC ANEMIA NEC 11/07/2019 ARENAS DO, ADALBERTO Ot 401.1 BENIGN HYPERTENSION 11/07/2019 ARENAS DO, ADALBERTO Ot 414.00 CORON ATHEROSCLER NOS TYPE VESSEL, NATIV 11/07/2019 ELLE CORMIER DO Ot 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 11/07/2019 ELLE CORMIER DO Ot 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 11/07/2019 CLYDE JEAN, CHRISTOPHER Buchanan Ot 272. 4 HYPERLIPIDEMIA NEC/NOS 11/07/2019 CLYDE JEAN, CHRISTOPHER Buchanan Ot 401. 9 HYPERTENSION NOS 11/07/2019 CLYDE JEAN, CHRISTOPHER Buchanan Ot 414. 00 CORON ATHEROSCLER NOS TYPE VESSEL, NATIV 11/07/2019 CLYDE JEAN, CHRISTOPHER Buchanan Ot 786. 50 CHEST PAIN NOS 11/07/2019 Ot 272.4 HYPE RLIPIDEMIA NEC/NOS 11/07/2019 Ot 401.9 HYPE RTENSION NOS 11/07/2019 Ot 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, NATIV 11/07/2019 Ot 557.9 VASC INSUFF INTEST NOS 11/07/2019 ARENAS DO, ADALBERTO Ot 786.2 COUGH 11/07/2019 ARENAS DO, ADALBERTO Ot 250.00 DIAB MILLIE WO COMPL, TYPE II OR UNSPEC TY 11/07/2019 ARENAS DO, ADALBERTO Ot 272.4 HYPERLIPIDEMIA NEC/NOS 11/07/2019 ARENAS DO, ADALBERTO Ot 298.9 PSYCHOSIS NOS 11/07/2019 ARENAS DO, ADALBERTO Ot 401.9 HYPERTENSION NOS 11/07/2019 ARENAS DO, ADALBERTO Ot 414.00 CORON ATHEROSCLER NOS TYPE VESSEL, NATIV 11/07/2019 ARENAS DO, ADALBERTO Ot 443.9 PERIPH VASCULAR DIS NOS 11/07/2019 ARENAS DO, ADALBERTO Ot 536.8 STOMACH FUNCTION DIS NEC 11/07/2019 ARENAS DO, ADALBERTO Ot 789.09 ABDOMINAL PAIN, OTHER SPECIFIED SITE 11/07/2019 DEAN JEAN, AILEEN [place]ov[place] Ot V72.84 EXAM PRE-OPERATIVE NOS 11/07/2019 DEAN JEAN, AILEEN [place] Ot 553.1 UMBILICAL HERNIA 11/07/2019 AILEEN MORAN MD Ot V72.84 EXAM PRE-OPERATIVE NOS 11/07/2019 ARENAS DO, ADALBERTO Ot 250.00 DIAB MILLIE WO COMPL, TYPE II OR UNSPEC TY 11/07/2019 ARENAS DO, ADALBERTO Ot 272.4 HYPERLIPIDEMIA NEC/NOS 11/07/2019 ARENAS DO, ADALBERTO Ot 280.8 IRON DEFIC ANEMIA NEC 11/07/2019 ARENAS DO, ADALBERTO Ot 401.1 BENIGN HYPERTENSION 11/07/2019 ARENAS DO, ADALBERTO Ot 414.00 CORON ATHEROSCLER NOS TYPE VESSEL, NATIV 11/07/2019 ARENAS DO, ADALBERTO Ot 455.6 HEMORRHOIDS NOS 11/07/2019 ARENAS DO, ADALBERTO Ot 530.81 ESOPHAGEAL REFLUX 11/07/2019 ARENAS DO, ADALBERTO Ot 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 11/07/2019 ARENAS DO, ADALBERTO Ot 722.10 LUMBAR DISC DISPLACEMENT 11/07/2019 ARENAS DO, ADALBERTO Ot V58.67 LONG-TERM (CURRENT) USE OF INSULIN 11/07/2019 ARENAS DO, ADALBERTO Ot 250.00 DIAB MILLIE WO COMPL, TYPE II OR UNSPEC TY 11/07/2019 ARENAS DO, ADALBERTO Ot 272.4 HYPERLIPIDEMIA NEC/NOS 11/07/2019 ARENAS DO, ADALBERTO Ot 280.8 IRON DEFIC ANEMIA NEC 11/07/2019 ARENAS DO, ADALBERTO Ot 401.1 BENIGN HYPERTENSION 11/07/2019 ARENAS DO, ADALBERTO Ot 414.00 CORON ATHEROSCLER NOS TYPE VESSEL, NATIV 11/07/2019 ARENAS DO, ADALBERTO Ot 455.3 EXT HEMORRHOID W/O COMPL 11/07/2019 ARENAS DO, ADALBERTO Ot 530.81 ESOPHAGEAL REFLUX 11/07/2019 ARENAS DO, ADALBERTO Ot 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 11/07/2019 ARENAS DO, ADALBERTO Ot 722.10 LUMBAR DISC DISPLACEMENT 11/07/2019 ARENAS DO, ADALBERTO Ot 786.2 COUGH 11/07/2019 ARENAS DO, ADALBERTO Ot 250.00 DIAB MILLIE WO COMPL, TYPE II OR UNSPEC TY 11/07/2019 ARENAS DO, ADALBERTO Ot 272.4 HYPERLIPIDEMIA NEC/NOS 11/07/2019 ARENAS DO, ADALBERTO Ot 280.8 IRON DEFIC ANEMIA NEC 11/07/2019 ARENAS DO, ADALBERTO Ot 401.1 BENIGN HYPERTENSION 11/07/2019 ARENAS DO, ADALBERTO Ot 414.00 CORON ATHEROSCLER NOS TYPE VESSEL, NATIV 11/07/2019 ARENAS DO, ADALBERTO Ot 455.6 HEMORRHOIDS NOS 11/07/2019 ARENAS DO, ADALBERTO Ot 530.81 ESOPHAGEAL REFLUX 11/07/2019 ARENAS DO, ADALBERTO Ot 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 11/07/2019 ARENAS DO, ADALBERTO Ot 722.10 LUMBAR DISC DISPLACEMENT 11/07/2019 ARENAS DO, ADALBERTO Ot 786.2 COUGH 11/07/2019 ARENAS DO, ADALBERTO Ot 919.4 INSECT BITE NEC 11/07/2019 DAGOBERTO AMOR ADALBERTO Ot E000.8 OTHER EXTERNAL CAUSE STATUS 11/07/2019 DAGOBERTO AMOR ADALBERTO Ot E906.4 NONVENOM ARTHROPOD BITE 11/07/2019 DAGOBERTO AMOR ADALBERTO Ot V58.67 LONG-TERM (CURRENT) USE OF INSULIN 11/07/2019 AILEEN MORAN MD Ot C95.90 LEUKEMIA, UNSPECIFIED NOT HAVING ACHIEVE 11/07/2019 AILEEN MORAN MD Ot Z01.818 ENCOUNTER FOR OTHER PREPROCEDURAL EXAMIN 11/07/2019 AILEEN MORAN MD Ot Z11.2 ENCOUNTER FOR SCREENING FOR OTHER BACTER 11/07/2019 DAGOBERTO AMOR ADALBERTO Ot 250.00 11/07/2019 DAGOBERTO AMOR ADALBERTO Ot 786.2 11/07/2019 KAYLEEN LUCAS Ot D50.9 IRON DEFICIENCY ANEMIA, UNSPECIFIED 11/07/2019 DAGOBERTO AMOR ADALBERTO Ot 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 10 ATHSCL HEART DISEASE OF [place] CORONARY 11/07/2019 CHRISTOPHER TANG MD Ot I48. 0 PAROXYSMAL ATRIAL FIBRILLATION 11/07/2019 CHRISTOPHER TANG MD Ot I65. 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 2 MIXED HYPERLIPIDEMIA 11/07/2019 CLYDE JEAN, CHRISTOPHER Buchanan Ot I10 ESSENTIAL (PRIMARY) HYPERTENSION 11/07/2019 CLYDE JEAN, CHRISTOPHER Buchanan Ot I25. 10 ATHSCL HEART DISEASE OF [place] CORONARY 11/07/2019 CLYDE JEAN, CHRISTOPHER Buchanan Ot I65. 23 OCCLUSION AND STENOSIS OF [place] 11/07/2019 LUCAS, KAYLEEN S SOLE LEVELER MACHINE Ot C91.00 ACUTE LYMPHOBLASTIC LEUKEMIA NOT HAVING 11/07/2019 LUCAS, HILAH S SOLE LEVELER MACHINE Ot Z79.899 OTHER [facility] (CURRENT) DRUG THERAPY 11/07/2019 LUCAS, HILAH S SOLE LEVELER MACHINE Ot C91.00 ACUTE LYMPHOBLASTIC LEUKEMIA NOT HAVING 11/07/2019 LUACS, HILAH S SOLE LEVELER MACHINE Ot D50.9 IRON DEFICIENCY ANEMIA, UNSPECIFIED 11/07/2019 LUCAS, HILAH S SOLE LEVELER MACHINE Ot Z79.899 OTHER [facility] (CURRENT) DRUG THERAPY 11/07/2019 FERNANDEZ-DOV DEJESUS, BASSAM K Ot E78.2 MIXED HYPERLIPIDEMIA 11/07/2019 FERNANDEZ-DOV PA, BASSAM K Ot I10 ESSENTIAL (PRIMARY) HYPERTENSION 11/07/2019 [facility] Ot I25.10 ATHSCL HEART DISEASE OF [place] CORONARY 11/07/2019 [facility], BASSAM K Ot I65.23 OCCLUSION AND STENOSIS OF [place] 11/07/2019 [facility], BASSAM K Ot E78.2 MIXED HYPERLIPIDEMIA 11/07/2019 FERNANDEZ-DOV PA, BASSAM K Ot I10 ESSENTIAL (PRIMARY) HYPERTENSION 11/07/2019 FERNANDEZ-DOV PA, BASSAM K Ot I25.10 ATHSCL HEART DISEASE OF [place] CORONARY 11/07/2019 [facility], BASSAM K Ot I65.23 OCCLUSION AND STENOSIS OF [place] 11/07/2019 [facility], BASSAM K Ot E78.2 MIXED HYPERLIPIDEMIA 11/07/2019 [facility], BASSAM K Ot I10 ESSENTIAL (PRIMARY) HYPERTENSION 11/07/2019 [facility], BASSAM K Ot I25.10 ATHSCL HEART DISEASE OF [place] CORONARY 11/07/2019 [facility], BASSAM K Ot I65.23 OCCLUSION AND STENOSIS OF [place] 11/07/2019 LUCAS, HILAH S SOLE LEVELER MACHINE Ot C91.00 ACUTE LYMPHOBLASTIC LEUKEMIA NOT HAVING 11/07/2019 KAYLEEN LUCAS SOLE LEVELER MACHINE Ot D50.9 IRON DEFICIENCY ANEMIA, UNSPECIFIED 11/07/2019 KAYLEEN LUCAS SOLE LEVELER MACHINE Ot Z79.899 OTHER CITIZEN PARTICIPATION SPECIALIST (CURRENT) DRUG THERAPY 11/07/2019 CHRISTOPHER TANG MD, Ot E78. 2 MIXED HYPERLIPIDEMIA 11/07/2019 CHRISTOPHER TANG MD, Ot I10 ESSENTIAL (PRIMARY) HYPERTENSION 11/07/2019 CHRISTOPHER TANG MD, Ot I25. 10 ATHSCL HEART DISEASE OF [place] CORONARY 11/07/2019 CHRISTOPHER TANG MD Ot I48. 91 UNSPECIFIED ATRIAL FIBRILLATION 11/07/2019 CHRISTOPHER TANG MD, Ot R07. 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 5 HYPERLIPIDEMIA, UNSPECIFIED 11/07/2019 CHRISTOPHER TANG MD, Ot I10 ESSENTIAL (PRIMARY) HYPERTENSION 11/07/2019 CHRISTOPHER TANG MD, Ot I25. 10 ATHSCL HEART DISEASE OF [place] CORONARY 11/07/2019 CHRISTOPHER TANG MD Ot I34. 0 NONRHEUMATIC MITRAL (VALVE) INSUFFICIENC 11/07/2019 ADALBERTO ARENAS DO Ot E08.62 1 DIABETES MELLITUS DUE TO UNDERLYING COND 11/07/2019 ARENAS DO, ADALBERTO Ot R53.83 OTHER FATIGUE 11/07/2019 ARENAS DO, ADALBERTO Ot R73.9 HYPERGLYCEMIA, UNSPECIFIED 11/07/2019 ARENAS DO, ADALBERTO Ot E08.62 1 DIABETES MELLITUS DUE TO UNDERLYING COND 11/07/2019 ARENAS DO, ADALBERTO Ot J22 UNSPECIFIED ACUTE LOWER RESPIRATORY INFE 11/07/2019 ARENAS DO, ADALBERTO Ot Z95.1 PRESENCE OF AORTOCORONARY BYPASS GRAFT 11/07/2019 ARENAS DO, ADALBERTO Ot E11.9 TYPE 2 DIABETES MELLITUS WITHOUT COMPLIC 11/07/2019 ARENAS DO, ADALBERTO Ot I10 ESSENTIAL (PRIMARY) HYPERTENSION 11/07/2019 ARENAS DO, ADALBERTO Ot R53.83 OTHER FATIGUE 11/07/2019 ARENAS DO, ADALBERTO Ot J01.10 ACUTE FRONTAL SINUSITIS, UNSPECIFIED 11/07/2019 ARENAS DO, ADALBERTO Ot J20.9 ACUTE BRONCHITIS, UNSPECIFIED 11/07/2019 ARENAS DO, ADALBERTO Ot J44.0 CHRONIC OBSTRUCTIVE PULMON DISEASE W ACU 11/07/2019 ARENAS DO, ADALBERTO Ot E08.62 1 DIABETES MELLITUS DUE TO UNDERLYING COND 11/07/2019 ARENAS DO, ADALEBRTO Ot E78.00 PURE HYPERCHOLESTEROLEMIA, UNSPECIFIED 11/07/2019 ARENAS DO, ADALBERTO Ot E78.1 PURE HYPERGLYCERIDEMIA 11/07/2019 ARENAS DO, ADALBERTO Ot L97.90 9 NON-PRS CHRONIC ULC UNSP PRT OF UNSP LOW 11/07/2019 ARENAS DO, ADALBERTO Ot E78.1 PURE HYPERGLYCERIDEMIA 11/07/2019 ARENAS DO, ADALBERTO Ot N39.0 URINARY TRACT INFECTION, SITE NOT SPECIF 11/07/2019 ARENAS DO, ADALBERTO Ot R53.83 OTHER FATIGUE 11/07/2019 ARENAS DO, ADALBERTO Ot Z00.00 ENCNTR FOR GENERAL ADULT MEDICAL EXAM W/ 11/07/2019 DAX YOUNG MD Ot S72.145D NONDISP INTERTROCH FX L FEMUR, SUBS FOR 11/07/2019 DAX YOUNG MD Ot W10.8XXD FALL (ON) (FROM) OTHER STAIRS AND STEPS, 11/07/2019 ARENAS DO, ADALBERTO Ot D64.9 ANEMIA, UNSPECIFIED 11/07/2019 ARENAS DO, ADALBERTO Ot E11.9 TYPE 2 DIABETES MELLITUS WITHOUT COMPLIC 11/07/2019 DAGOBERTO AMOR ADALBERTO Ot I11.0 HYPERTENSIVE HEART DISEASE WITH HEART FA 11/07/2019 DAGOBERTO AMOR ADALBERTO Ot I50.9 HEART FAILURE, UNSPECIFIED 11/07/2019 DAX YOUNG MD Ot S72.142A DISPLACED INTERTROCHANTERIC FRACTURE OF 11/07/2019 DAX YOUNG MD Ot Z98.890 OTHER SPECIFIED POSTPROCEDURAL STATES 11/07/2019 DAX YOUNG MD Ot S72.142A DISPLACED INTERTROCHANTERIC FRACTURE OF 11/07/2019 DAX YOUNG MD, Ot Z98.890 OTHER SPECIFIED POSTPROCEDURAL STATES 11/07/2019 JORGE CARDENAS Ot C91.00 ACUTE LYMPHOBLASTIC LEUKEMIA NOT HAVING 11/07/2019 JORGE CARDENAS Ot D50.9 IRON DEFICIENCY ANEMIA, UNSPECIFIED 11/07/2019 JORGE CARDENAS Ot E11.43 TYPE 2 DIABETES W DIABETIC AUTONOMIC (PO 11/07/2019 JORGE CARDENAS Ot E78.5 HYPERLIPIDEMIA, UNSPECIFIED 11/07/2019 JORGE CARDENAS Ot I10 ESSENTIAL (PRIMARY) HYPERTENSION 11/07/2019 JORGE CARDENAS Ot I25.10 ATHSCL HEART DISEASE OF [place] CORONARY 11/07/2019 JORGE CARDENAS Ot J44.9 CHRONIC OBSTRUCTIVE PULMONARY DISEASE, U 11/07/2019 JORGE CARDENAS Ot S72.002 D FX UNSP PART OF NK OF L FEMR, SUBS FOR C 11/07/2019 JORGE CARDENAS Ot Z79.4 [facility] (CURRENT) USE OF INSULIN 11/07/2019 JORGE CARDENAS Ot Z79.899 OTHER [facility] (CURRENT) DRUG THERAPY 11/07/2019 JORGE CARDENAS Ot Z92.21 PERSONAL HISTORY OF ANTINEOPLASTIC CHEMO 11/07/2019 DAGOBERTO DO ADALBERTO Ot E86.0 DEHYDRATION 11/07/2019 DAGOBERTO DO ADALBERTO Ot R05 COUGH 11/07/2019 DAGOBERTO AMOR ADALBERTO Ot R50.9 FEVER, UNSPECIFIED 11/07/2019 Ot S72.145D N ONDISP INTERTROCH FX L FEMUR, SUBS FOR 11/07/2019 Ot W10.8XXD F ALL (ON) (FROM) OTHER STAIRS AND STEPS, 11/07/2019 ARENAS DO, ADALBERTO Ot Z29.8 ENCOUNTER FOR OTHER SPECIFIED PROPHYLACT 11/08/2019 JORGE CARDENAS Ot C91.00 ACUTE LYMPHOBLASTIC LEUKEMIA NOT HAVING 11/08/2019 JORGE CARDENAS Ot D50.9 IRON DEFICIENCY ANEMIA, UNSPECIFIED 11/08/2019 JORGE CARDENAS Ot E11.43 TYPE 2 DIABETES W DIABETIC AUTONOMIC (PO 11/08/2019 THERESAJORGE Ot E78.5 HYPERLIPIDEMIA, UNSPECIFIED 11/08/2019 THERESAJORGE N Ot I10 ESSENTIAL (PRIMARY) HYPERTENSION 11/08/2019 JORGE CARDENAS N Ot I25.10 ATHSCL HEART DISEASE OF [place] CORONARY 11/08/2019 JORGE CARDENAS Ot J44.9 CHRONIC OBSTRUCTIVE PULMONARY DISEASE, U 11/08/2019 JORGE CARDENAS Ot S72.002 D FX UNSP PART OF NK OF L FEMR, SUBS FOR C 11/08/2019 JORGE CARDENAS Ot Z79.4 [facility] (CURRENT) USE OF INSULIN 11/08/2019 JORGE CARDENAS Ot Z79.899 OTHER [facility] (CURRENT) DRUG THERAPY 11/08/2019 JORGE CARDENAS Ot Z92.21 PERSONAL HISTORY OF ANTINEOPLASTIC CHEMO 11/11/2019 ARENAS DO, ADALBERTO Ot Z29.8 ENCOUNTER FOR OTHER SPECIFIED PROPHYLACT 11/24/2019 ARENAS DO, ADALBERTO Ot Z29.8 ENCOUNTER FOR OTHER SPECIFIED PROPHYLACT 12/06/2019 ARENAS DO, ADALBERTO Ot Z29.8 ENCOUNTER FOR OTHER SPECIFIED PROPHYLACT 12/08/2019 ARENAS DO, ADALBERTO Ot Z29.8 ENCOUNTER FOR OTHER SPECIFIED PROPHYLACT 12/12/2019 JORGE CARDENAS Ot C91.00 ACUTE LYMPHOBLASTIC LEUKEMIA NOT HAVING 12/12/2019 JORGE CARDENAS Ot D50.9 IRON DEFICIENCY ANEMIA, UNSPECIFIED 12/12/2019 JORGE CARDENAS N Ot E11.43 TYPE 2 DIABETES W DIABETIC AUTONOMIC (PO 12/12/2019 JORGE CARDENAS N Ot E78.5 HYPERLIPIDEMIA, UNSPECIFIED 12/12/2019 JORGE CARDENAS N Ot I10 ESSENTIAL (PRIMARY) HYPERTENSION 12/12/2019 JORGE CARDENAS Ot I25.10 ATHSCL HEART DISEASE OF [place] CORONARY 12/12/2019 JORGE CARDENAS N Ot J44.9 CHRONIC OBSTRUCTIVE PULMONARY DISEASE, U 12/12/2019 JORGE CARDENAS N Ot S72.002 D FX UNSP PART OF NK OF L FEMR, SUBS FOR C 12/12/2019 JORGE CARDENAS N Ot 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 12/12/2019 THERESA BOBAN N Ot Z79.899 OTHER [facility] (CURRENT) DRUG THERAPY 12/12/2019 THERESA, BOBAN N Ot Z92.21 PERSONAL HISTORY OF ANTINEOPLASTIC CHEMO 12/14/2019 THERESA, BOBAN N Ot C91.00 ACUTE LYMPHOBLASTIC LEUKEMIA NOT HAVING 12/14/2019 THERESA, BOBAN N Ot D50.9 IRON DEFICIENCY ANEMIA, UNSPECIFIED 12/14/2019 THERESA, BOBAN N Ot E11.43 TYPE 2 DIABETES W DIABETIC AUTONOMIC (PO 12/14/2019 THERESA, BOBAN N Ot E78.5 HYPERLIPIDEMIA, UNSPECIFIED 12/14/2019 THERESA, BOBAN N Ot I10 ESSENTIAL (PRIMARY) HYPERTENSION 12/14/2019 JORGE CARDENAS N Ot I25.10 ATHSCL HEART DISEASE OF [place] CORONARY 12/14/2019 THERESA, JORGE N Ot J44.9 CHRONIC OBSTRUCTIVE PULMONARY DISEASE, U 12/14/2019 JORGE CARDENAS N Ot S72.002 D FX UNSP PART OF NK OF L FEMR, SUBS FOR C 12/14/2019 JORGE CARDENAS N Ot Z79.4 [facility] (CURRENT) USE OF INSULIN 12/14/2019 JORGE CARDENAS N Ot Z79.899 OTHER CITIZEN PARTICIPATION SPECIALIST (CURRENT) DRUG THERAPY 12/14/2019 THERESA, BOBAN N Ot Z92.21 PERSONAL HISTORY OF ANTINEOPLASTIC CHEMO 12/22/2019 ADALBERTO ARENAS DO Ot Z29.8 ENCOUNTER FOR OTHER SPECIFIED PROPHYLACT 12/31/2019 THERESA, BOBAN N Ot C91.00 ACUTE LYMPHOBLASTIC LEUKEMIA NOT HAVING 12/31/2019 THERESA, BOBAN N Ot D50.9 IRON DEFICIENCY ANEMIA, UNSPECIFIED 12/31/2019 THERESA, BOBAN N Ot E11.43 TYPE 2 DIABETES W DIABETIC AUTONOMIC (PO 12/31/2019 THERESA, BOBAN N Ot E78.5 HYPERLIPIDEMIA, UNSPECIFIED 12/31/2019 THERESA, BOBAN N Ot I10 ESSENTIAL (PRIMARY) HYPERTENSION 12/31/2019 THERESATABBY BERNALAN N Ot I25.10 ATHSCL HEART DISEASE OF [place] CORONARY 12/31/2019 JORGE CARDENAS N Ot J44.9 CHRONIC OBSTRUCTIVE PULMONARY DISEASE, U 12/31/2019 JORGE CARDENAS N Ot S72.002 D FX UNSP PART OF NK OF L FEMR, SUBS FOR C 12/31/2019 JORGE CARDENAS N Ot Z79.4 [facility] (CURRENT) USE OF INSULIN 12/31/2019 THERESA, BOBAN N Ot Z79.899 OTHER [facility] (CURRENT) DRUG THERAPY 12/31/2019 THERESA, BOBAN N Ot Z92.21 PERSONAL HISTORY OF ANTINEOPLASTIC CHEMO 01/01/2020 THERESA, BOBAN N Ot C91.00 ACUTE LYMPHOBLASTIC LEUKEMIA NOT HAVING 01/01/2020 THERESA, BOBAN N Ot D50.9 IRON DEFICIENCY ANEMIA, UNSPECIFIED 01/01/2020 THERESA, BOBAN N Ot E11.43 TYPE 2 DIABETES W DIABETIC AUTONOMIC (PO 01/01/2020 THERESA, BOBAN N Ot E78.5 HYPERLIPIDEMIA, UNSPECIFIED 01/01/2020 THERESA, BOBAN N Ot I10 ESSENTIAL (PRIMARY) HYPERTENSION 01/01/2020 THERESA, JORGE N Ot I25.10 ATHSCL HEART DISEASE OF [place] CORONARY 01/01/2020 JORGE CARDENAS N Ot J44.9 CHRONIC OBSTRUCTIVE PULMONARY DISEASE, U 01/01/2020 JORGE CARDENAS N Ot S72.002 D FX UNSP PART OF NK OF L FEMR, SUBS FOR C 01/01/2020 JORGE CARDENAS N Ot 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 01/01/2020 THERESA, BOBAN N Ot Z79.899 OTHER CITIZEN PARTICIPATION SPECIALIST (CURRENT) DRUG THERAPY 01/01/2020 THERESA, BOBAN N Ot Z92.21 PERSONAL HISTORY OF ANTINEOPLASTIC CHEMO 01/06/2020 THERESA, BOBAN N Ot C91.00 ACUTE LYMPHOBLASTIC LEUKEMIA NOT HAVING 01/06/2020 THERESA, BOBAN N Ot D50.9 IRON DEFICIENCY ANEMIA, UNSPECIFIED 01/06/2020 THERESA, BOBAN N Ot E11.43 TYPE 2 DIABETES W DIABETIC AUTONOMIC (PO 01/06/2020 THERESA, BOBAN N Ot E78.5 HYPERLIPIDEMIA, UNSPECIFIED 01/06/2020 THERESA BOBAN N Ot I10 ESSENTIAL (PRIMARY) HYPERTENSION 01/06/2020 THERESA, BOBAN N Ot I25.10 ATHSCL HEART DISEASE OF [place] CORONARY 01/06/2020 THERESAJORGE BERNAL N Ot J44.9 CHRONIC OBSTRUCTIVE PULMONARY DISEASE, U 01/06/2020 THERESA, BOBAN N Ot S72.002 D FX UNSP PART OF NK OF L FEMR, SUBS FOR C 01/06/2020 THERESA BOBAN N Ot Z79.4 [facility] (CURRENT) USE OF INSULIN 01/06/2020 THERESA, BOBAN N Ot Z79.899 OTHER CITIZEN PARTICIPATION SPECIALIST (CURRENT) DRUG THERAPY 01/06/2020 THERESA, BOBAN N Ot Z92.21 PERSONAL HISTORY OF ANTINEOPLASTIC CHEMO 01/08/2020 ADALBERTO ARENAS DO Ot Z29.8 ENCOUNTER FOR OTHER SPECIFIED PROPHYLACT 02/13/2020 THERESA, BOBAN N Ot C91.00 ACUTE LYMPHOBLASTIC LEUKEMIA NOT HAVING 02/13/2020 THERESA, BOBAN N Ot D50.9 IRON DEFICIENCY ANEMIA, UNSPECIFIED 02/13/2020 THERESA, BOBAN N Ot E11.43 TYPE 2 DIABETES W DIABETIC AUTONOMIC (PO 02/13/2020 THERESA, BOBAN N Ot E78.5 HYPERLIPIDEMIA, UNSPECIFIED 02/13/2020 THERESA, BOBAN N Ot I10 ESSENTIAL (PRIMARY) HYPERTENSION 02/13/2020 THERESA, BOBAN N Ot I25.10 ATHSCL HEART DISEASE OF [place] CORONARY 02/13/2020 JORGE CARDENAS N Ot J44.9 CHRONIC OBSTRUCTIVE PULMONARY DISEASE, U 02/13/2020 THERESAJORGE N Ot S72.002 D FX UNSP PART OF NK OF L FEMR, SUBS FOR C 02/13/2020 THERESA, BOBAN N Ot Z79.4 [facility] (CURRENT) USE OF INSULIN 02/13/2020 THERESA, BOBAN N Ot Z79.899 OTHER [facility] (CURRENT) DRUG THERAPY 02/13/2020 THERESA, BOBAN N Ot Z92.21 PERSONAL HISTORY OF ANTINEOPLASTIC CHEMO 03/07/2020 THERESA, BOBAN N Ot C91.00 ACUTE LYMPHOBLASTIC LEUKEMIA NOT HAVING 03/07/2020 THERESA, BOBAN N Ot D50.9 IRON DEFICIENCY ANEMIA, UNSPECIFIED 03/07/2020 THERESA, BOBAN N Ot E11.43 TYPE 2 DIABETES W DIABETIC AUTONOMIC (PO 03/07/2020 JORGE CARDENAS Ot E78.5 HYPERLIPIDEMIA, UNSPECIFIED 03/07/2020 JORGE CARDENAS Fernandez Ot I10 ESSENTIAL (PRIMARY) HYPERTENSION 03/07/2020 JORGE CARDENAS Ot I25.10 ATHSCL HEART DISEASE OF [place] CORONARY 03/07/2020 JORGE CARDENAS Fernandez Ot J44.9 CHRONIC OBSTRUCTIVE PULMONARY DISEASE, U 03/07/2020 JORGE CARDENAS Ot S72.002 D FX UNSP PART OF NK OF L FEMR, SUBS FOR C 03/07/2020 JORGE CARDENAS Fernnadez Ot 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 03/07/2020 JORGE CARDENAS Fernandez Ot Z79.899 OTHER CITIZEN PARTICIPATION SPECIALIST (CURRENT) DRUG THERAPY 03/07/2020 JORGE CARDENAS Fernandez Ot Z92.21 PERSONAL HISTORY OF ANTINEOPLASTIC CHEMO 03/27/2020 ADALBERTO ARENAS DO Ot E11.65 TYPE 2 DIABETES MELLITUS WITH HYPERGLYCE 03/27/2020 ADALBERTO ARENAS DO Ot I10 ESSENTIAL (PRIMARY) HYPERTENSION Procedures Code Description Performed By Per michelle On 37.22 LEFT HEART CARDIAC CATH 05/04/2014 88.49 CONT RAST ARTERIOGRAM NEC 05/04/2014 88.53 LT H EART ANGIOCARDIOGRAM 05/04/2014 88.56 CRYSTAL SALLY ARTERIOGR-2 CATH 05/04/2014 45.16 ESOP HAGOGASTRODUODENOSCOPY [EGD] W/CLOSE 04/18/2015 41.31 BONE MARROW BIOPSY 05/03/2015 [id number] RE POSITION LEFT UPPER FEMUR WITH INTRAME 06/19/2019 Results Test Result Range Hemoglobin A1c - 08/12/16 10:11 Hemoglobin A1c 8.0 % 4.5-6.2 Lipid 1996 panel - 08/12/16 10:14 Serum or plasma triglyceride measurement (mass/volume) 244 mg/dL <150 Serum or plasma cholesterol measurement (mass/volume) 181 mg/dL < 200 Serum or plasma cholesterol in HDL measurement (mass/v olume) 53 mg/dL 40-60 Cholesterol in LDL [mass/volume] in serum or plasma by direct assay 97 mg/dL 1-129 Serum or plasma cholesterol in VLDL measurement (mass/ volume) 49 mg/dL 5-40 THYROID STIMULATING HORMONE - 08/12/16 1 0:14 THYROID STIMULATING HORMONE 1.14 u[iU]/mL 0.35-4.94 Serum or plasma thyroxine (T4) free malena urement (mass/volume) - 08/12/16 10:14 Serum or plasma thyroxine (T4) free measurement (mass/ volume) 0.94 ng/dL 0.70-1.48 Urine microalbumin measurement by test s trip (mass/volume) - 08/12/16 10:14 Urine creatinine measurement (mass/volume) 170 % NRG Microalbumin [mass/volume] in urine 11.1 % 0.0-20.0 Microalbumin/creatinine [ratio] in urine 6.5 mg/g{ Cre} 0.0- 30.0 Complete blood count (CBC) with automate d white blood cell (WBC) differential - 08/28/16 09:21 Blood leukocytes automated count (number/volume) 7.5 10*3/uL 4.3-11.0 Blood erythrocytes automated count (number/volume) 3.51 10*6/uL 4.35-5.85 Venous blood hemoglobin measurement (mass/volume) 11.7 g/dL 13.3-17.7 Blood hematocrit (volume fraction) 34 % 40-54 Automated erythrocyte mean corpuscular volume 96 [ foz_us] 80-99 Automated erythrocyte mean corpuscular h emoglobin (mass per erythrocyte) 33 pg 25-34 Automated erythrocyte mean corpuscular h emoglobin concentration measurement (mass/volume) 35 g/dL 32-36 Automated erythrocyte distribution width ratio 14. 7 % 10.0- 14.5 Automated blood platelet count (count/volume) 187 10*3/uL 130-400 Automated blood platelet mean volume measurement 9.5 [foz_us] 7.4-10.4 Automated blood neutrophils/100 leukocytes 82 % 42-75 Automated blood lymphocytes/100 leukocytes 10 % 12-44 Blood monocytes/100 leukocytes 8 % 0-12 Automated blood eosinophils/100 leukocytes 0 % 0-10 Automated blood basophils/100 leukocytes 0 % 0-10 Blood neutrophils automated count (number/volume) 6.1 10*3 1.8-7.8 Blood lymphocytes automated count (number/volume) 0.7 10*3 1.0-4.0 Blood monocytes automated count (number/volume) 0. 6 10*3 0.0-1.0 Automated eosinophil count 0.0 10*3/uL 0 .0-0.3 Automated blood basophil count (count/volume) 0.0 10*3/uL 0.0-0.1 Comprehensive metabolic panel - 08/28/16 09:21 Serum or plasma sodium measurement (moles/volume) 137 mmol/L 135-145 Serum or plasma potassium measurement (moles/volume) 4.2 mmol/L 3.6-5.0 Serum or plasma chloride measurement (moles/volume) 101 mmol/L 98-107 Carbon dioxide 25 mmol/L 21-32 Serum or plasma anion gap determination (moles/volume) 11 mmol/L 5-14 Serum or plasma urea nitrogen measurement (mass/volume ) 26 mg/dL 7-18 Serum or plasma creatinine measurement (mass/volume) 1.15 mg/dL 0.60-1.30 Serum or plasma urea nitrogen/creatinine mass ratio 23 NRG Serum or plasma creatinine measurement w ith calculation of estimated glomerular filtration rate > NRG Serum or plasma glucose measurement (mass/volume) 338 mg/dL 70-105 Serum or plasma calcium measurement (mass/volume) 9.0 mg/dL 8.5-10.1 Serum or plasma total bilirubin measurement (mass/volu me) 0.7 mg/dL 0.1-1.0 Serum or plasma alkaline phosphatase [place] surement (enzymatic activity/volume) 123 U/L 40-136 Serum or plasma aspartate aminotransfera se measurement (enzymatic activity/volume) 27 U/L 5-34 Serum or plasma alanine aminotransferase measurement (enzymatic activity/volume) 29 U/L 0-55 Serum or plasma protein measurement (mass/volume) 6.1 g/dL 6.4-8.2 Serum or plasma albumin measurement (mass/volume) 4.3 g/dL 3.2-4.5 Serum or plasma creatine kinase measurem ent (enzymatic activity/volume) - 08/28/16 09:21 Serum or plasma creatine kinase measurem ent (enzymatic activity/volume) 164 U/L 30-200 Serum or plasma troponin i.cardiac measu rement (mass/volume) - 08/28/16 09:21 Serum or plasma troponin i.cardiac measurement (mass/v olume) 2.71 ng/mL <0.30 Serum or plasma amylase measurement (enz ymatic activity/volume) - 08/28/16 09:21 Serum or plasma amylase measurement (enzymatic activit y/volume) 106 U/L 25-125 Serum or plasma lithium measurement (mol es/volume) - 08/28/16 09:21 BNP level 409.3 pg/mL <100.0 Lipase - 08/28/16 09:21 Lipase 16 U/L 8-78 Capillary blood glucose measurement by g lucometer (mass/volume) - 08/28/16 12:13 Capillary blood glucose measurement by glucometer (mas s/volume) 193 mg/dL 70-110 Capillary blood glucose measurement by g lucometer (mass/volume) - 08/28/16 17:08 Capillary blood glucose measurement by glucometer (mas s/volume) 69 mg/dL 70-110 Capillary blood glucose measurement by g lucometer (mass/volume) - 08/28/16 21:02 Capillary blood glucose measurement by glucometer (mas s/volume) 206 mg/dL 70-110 Automated blood complete blood count (he mogram) panel - 08/29/16 05:00 Blood leukocytes automated count (number/volume) 4.1 10*3/uL 4.3-11.0 Blood erythrocytes automated count (number/volume) 3.24 10*6/uL 4.35-5.85 Venous blood hemoglobin measurement (mass/volume) 10.8 g/dL 13.3-17.7 Blood hematocrit (volume fraction) 31 % 40-54 Automated erythrocyte mean corpuscular volume 96 [ foz_us] 80-99 Automated erythrocyte mean corpuscular h emoglobin (mass per erythrocyte) 33 pg 25-34 Automated erythrocyte mean corpuscular h emoglobin concentration measurement (mass/volume) 35 g/dL 32-36 Automated erythrocyte distribution width ratio 14. 6 % 10.0- 14.5 Automated blood platelet count (count/volume) 157 10*3/uL 130-400 Automated blood platelet mean volume measurement 9.2 [foz_us] 7.4-10.4 Comprehensive metabolic panel - 08/29/16 05:00 Serum or plasma sodium measurement (moles/volume) 140 mmol/L 135-145 Serum or plasma potassium measurement (moles/volume) 3.8 mmol/L 3.6-5.0 Serum or plasma chloride measurement (moles/volume) 104 mmol/L 98-107 Carbon dioxide 25 mmol/L 21-32 Serum or plasma anion gap determination (moles/volume) 11 mmol/L 5-14 Serum or plasma urea nitrogen measurement (mass/volume ) 18 mg/dL 7-18 Serum or plasma creatinine measurement (mass/volume) 0.87 mg/dL 0.60-1.30 Serum or plasma urea nitrogen/creatinine mass ratio 21 NRG Serum or plasma creatinine measurement w ith calculation of estimated glomerular filtration rate > NRG Serum or plasma glucose measurement (mass/volume) 170 mg/dL 70-105 Serum or plasma calcium measurement (mass/volume) 8.7 mg/dL 8.5-10.1 Serum or plasma total bilirubin measurement (mass/volu me) 0.7 mg/dL 0.1-1.0 Serum or plasma alkaline phosphatase [place] surement (enzymatic activity/volume) 76 U/L 40-136 Serum or plasma aspartate aminotransfera se measurement (enzymatic activity/volume) 25 U/L 5-34 Serum or plasma alanine aminotransferase measurement (enzymatic activity/volume) 21 U/L 0-55 Serum or plasma protein measurement (mass/volume) 5.2 g/dL 6.4-8.2 Serum or plasma albumin measurement (mass/volume) 3.6 g/dL 3.2-4.5 Serum or plasma troponin i.cardiac measu rement (mass/volume) - 08/29/16 05:00 Serum or plasma troponin i.cardiac measurement (mass/v olume) 3.08 ng/mL <0.30 Serum or plasma lithium measurement (mol es/volume) - 08/29/16 05:00 BNP level 281.6 pg/mL <100.0 Lipid 1996 panel - 08/29/16 05:00 Serum or plasma triglyceride measurement (mass/volume) 148 mg/dL <150 Serum or plasma cholesterol measurement (mass/volume) 145 mg/dL < 200 Serum or plasma cholesterol in HDL measurement (mass/v olume) 45 mg/dL 40-60 Cholesterol in LDL [mass/volume] in serum or plasma by direct assay 72 mg/dL 1-129 Serum or plasma cholesterol in VLDL measurement (mass/ volume) 30 mg/dL 5-40 Complete blood count (CBC) with automate d white blood cell (WBC) differential - 09/15/16 12:55 Blood leukocytes automated count (number/volume) 4.7 10*3/uL 4.3-11.0 Blood erythrocytes automated count (number/volume) 3.48 10*6/uL 4.35-5.85 Venous blood hemoglobin measurement (mass/volume) 11.6 g/dL 13.3-17.7 Blood hematocrit (volume fraction) 33 % 40-54 Automated erythrocyte mean corpuscular volume 95 [ foz_us] 80-99 Automated erythrocyte mean corpuscular h emoglobin (mass per erythrocyte) 33 pg 25-34 Automated erythrocyte mean corpuscular h emoglobin concentration measurement (mass/volume) 35 g/dL 32-36 Automated erythrocyte distribution width ratio 14. 5 % 10.0- 14.5 Automated blood platelet count (count/volume) 169 10*3/uL 130-400 Automated blood platelet mean volume measurement 9.3 [foz_us] 7.4-10.4 Automated blood neutrophils/100 leukocytes 60 % 42-75 Automated blood lymphocytes/100 leukocytes 22 % 12-44 Blood monocytes/100 leukocytes 17 % 0-12 Automated blood eosinophils/100 leukocytes 1 % 0-10 Automated blood basophils/100 leukocytes 0 % 0-10 Blood neutrophils automated count (number/volume) 2.8 10*3 1.8-7.8 Blood lymphocytes automated count (number/volume) 1.0 10*3 1.0-4.0 Blood monocytes automated count (number/volume) 0. 8 10*3 0.0-1.0 Automated eosinophil count 0.0 10*3/uL 0 .0-0.3 Automated blood basophil count (count/volume) 0.0 10*3/uL 0.0-0.1 Comprehensive metabolic panel - 09/15/16 12:55 Serum or plasma sodium measurement (moles/volume) 138 mmol/L 135-145 Serum or plasma potassium measurement (moles/volume) 3.6 mmol/L 3.6-5.0 Serum or plasma chloride measurement (moles/volume) 104 mmol/L 98-107 Carbon dioxide 25 mmol/L 21-32 Serum or plasma anion gap determination (moles/volume) 9 mmol/L 5-14 Serum or plasma urea nitrogen measurement (mass/volume ) 14 mg/dL 7-18 Serum or plasma creatinine measurement (mass/volume) 1.01 mg/dL 0.60-1.30 Serum or plasma urea nitrogen/creatinine mass ratio 14 NRG Serum or plasma creatinine measurement w ith calculation of estimated glomerular filtration rate > NRG Serum or plasma glucose measurement (mass/volume) 68 mg/dL 70-105 Serum or plasma calcium measurement (mass/volume) 9.2 mg/dL 8.5-10.1 Serum or plasma total bilirubin measurement (mass/volu me) 0.7 mg/dL 0.1-1.0 Serum or plasma alkaline phosphatase [place] surement (enzymatic activity/volume) 71 U/L 40-136 Serum or plasma aspartate aminotransfera se measurement (enzymatic activity/volume) 21 U/L 5-34 Serum or plasma alanine aminotransferase measurement (enzymatic activity/volume) 21 U/L 0-55 Serum or plasma protein measurement (mass/volume) 5.9 g/dL 6.4-8.2 Serum or plasma albumin measurement (mass/volume) 4.1 g/dL 3.2-4.5 Serum or plasma troponin i.cardiac measu rement (mass/volume) - 09/15/16 12:55 Serum or plasma troponin i.cardiac measurement (mass/v olume) < ng/mL <0.30 Serum or plasma lithium measurement (mol es/volume) - 09/15/16 12:55 BNP level 189.6 pg/mL <100.0 Capillary blood glucose measurement by g lucometer (mass/volume) - 09/15/16 15:55 Capillary blood glucose measurement by glucometer (mas s/volume) 129 mg/dL 70-110 Complete urinalysis with reflex to cultu re - 09/15/16 17:25 Urine color determination YELLOW NRG Urine clarity determination SLIGHTLY CLOUDY NRG Urine pH measurement by test strip 6 5-9 Specific gravity of urine by test strip 1.005 1.016-1.022 Urine protein assay by test strip, semi-quantitative NEGATIVE NEGATIVE Urine glucose detection by automated test strip NE GATIVE NEGATIVE Erythrocytes detection in urine sediment by light micr oscopy NEGATIVE NEGATIVE Urine ketones detection by automated test strip NE GATIVE NEGATIVE Urine nitrite detection by test strip NEGATIVE NEGATIVE Urine total bilirubin detection by test strip NEGA TIVE NEGATIVE Urine urobilinogen measurement by automated test strip (mass/volume) NORMAL NORMAL Urine leukocyte esterase detection by dipstick NEG ATIVE NEGATIVE Automated urine sediment erythrocyte cou nt by microscopy (number/high power field) RARE NRG Automated urine sediment leukocyte count by microscopy (number/high power field) [HPF] NRG Bacteria detection in urine sediment by light microsco py NEGATIVE NRG Crystals detection in urine sediment by light microsco py NONE NRG Casts detection in urine sediment by light microscopy NONE NRG Mucus detection in urine sediment by light microscopy NEGATIVE NRG Complete urinalysis with reflex to culture NO NRG Capillary blood glucose measurement by g lucometer (mass/volume) - 09/15/16 20:10 Capillary blood glucose measurement by glucometer (mas s/volume) 153 mg/dL 70-110 Capillary blood glucose measurement by g lucometer (mass/volume) - 09/16/16 04:43 Capillary blood glucose measurement by glucometer (mas s/volume) 101 mg/dL 70-110 Complete blood count (CBC) with automate d white blood cell (WBC) differential - 09/16/16 05:26 Blood leukocytes automated count (number/volume) 4.7 10*3/uL 4.3-11.0 Blood erythrocytes automated count (number/volume) 3.22 10*6/uL 4.35-5.85 Venous blood hemoglobin measurement (mass/volume) 10.8 g/dL 13.3-17.7 Blood hematocrit (volume fraction) 31 % 40-54 Automated erythrocyte mean corpuscular volume 96 [ foz_us] 80-99 Automated erythrocyte mean corpuscular h emoglobin (mass per erythrocyte) 34 pg 25-34 Automated erythrocyte mean corpuscular h emoglobin concentration measurement (mass/volume) 35 g/dL 32-36 Automated erythrocyte distribution width ratio 14. 5 % 10.0- 14.5 Automated blood platelet count (count/volume) 153 10*3/uL 130-400 Automated blood platelet mean volume measurement 9.1 [foz_us] 7.4-10.4 Automated blood neutrophils/100 leukocytes 63 % 42-75 Automated blood lymphocytes/100 leukocytes 19 % 12-44 Blood monocytes/100 leukocytes 17 % 0-12 Automated blood eosinophils/100 leukocytes 2 % 0-10 Automated blood basophils/100 leukocytes 0 % 0-10 Blood neutrophils automated count (number/volume) 2.9 10*3 1.8-7.8 Blood lymphocytes automated count (number/volume) 0.9 10*3 1.0-4.0 Blood monocytes automated count (number/volume) 0. 8 10*3 0.0-1.0 Automated eosinophil count 0.1 10*3/uL 0 .0-0.3 Automated blood basophil count (count/volume) 0.0 10*3/uL 0.0-0.1 PT panel in platelet poor plasma by coag ulation assay - 09/16/16 05:26 Prothrombin time (PT) in platelet poor plasma by coagu lation assay 14.2 s 12.2-14.7 INR in platelet poor plasma or blood by coagulation as say 1.1 0.8-1.4 Activated partial thromboplastin time (a PTT) in platelet poor plasma bycoagulation assay - 09/16/16 05:26 Activated partial thromboplastin time (a PTT) in platelet poor plasma bycoagulation assay 28 s 24-35 Comprehensive metabolic panel - 09/16/16 05:26 Serum or plasma sodium measurement (moles/volume) 141 mmol/L 135-145 Serum or plasma potassium measurement (moles/volume) 3.8 mmol/L 3.6-5.0 Serum or plasma chloride measurement (moles/volume) 110 mmol/L 98-107 Carbon dioxide 23 mmol/L 21-32 Serum or plasma anion gap determination (moles/volume) 8 mmol/L 5-14 Serum or plasma urea nitrogen measurement (mass/volume ) 11 mg/dL 7-18 Serum or plasma creatinine measurement (mass/volume) 0.87 mg/dL 0.60-1.30 Serum or plasma urea nitrogen/creatinine mass ratio 13 NRG Serum or plasma creatinine measurement w ith calculation of estimated glomerular filtration rate > NRG Serum or plasma glucose measurement (mass/volume) 98 mg/dL 70-105 Serum or plasma calcium measurement (mass/volume) 8.6 mg/dL 8.5-10.1 Serum or plasma total bilirubin measurement (mass/volu me) 0.5 mg/dL 0.1-1.0 Serum or plasma alkaline phosphatase [place] surement (enzymatic activity/volume) 68 U/L 40-136 Serum or plasma aspartate aminotransfera se measurement (enzymatic activity/volume) 18 U/L 5-34 Serum or plasma alanine aminotransferase measurement (enzymatic activity/volume) 18 U/L 0-55 Serum or plasma protein measurement (mass/volume) 5.4 g/dL 6.4-8.2 Serum or plasma albumin measurement (mass/volume) 3.7 g/dL 3.2-4.5 Lipid 1996 panel - 09/16/16 05:26 Serum or plasma triglyceride measurement (mass/volume) 109 mg/dL <150 Serum or plasma cholesterol measurement (mass/volume) 129 mg/dL < 200 Serum or plasma cholesterol in HDL measurement (mass/v olume) 36 mg/dL 40-60 Cholesterol in LDL [mass/volume] in serum or plasma by direct assay 74 mg/dL 1-129 Serum or plasma cholesterol in VLDL measurement (mass/ volume) 22 mg/dL 5-40 Influenza virus A and B antigen detectio n - 12/03/16 11:50 CALL POSITIVES (F1 HELP) CALLED TO NAYA IN ICU AT 1213 NR FLU RESULT POSITIVE FOR INFLUENZA A ANT IGEN, NEG FOR B ANTIGEN, BY IA [facility] Complete blood count (CBC) with automate d white blood cell (WBC) differential - 12/03/16 12:31 Blood leukocytes automated count (number/volume) 5.7 10*3/uL 4.3-11.0 Blood erythrocytes automated count (number/volume) 3.15 10*6/uL 4.35-5.85 Venous blood hemoglobin measurement (mass/volume) 10.6 g/dL 13.3-17.7 Blood hematocrit (volume fraction) 30 % 40-54 Automated erythrocyte mean corpuscular volume 96 [ foz_us] 80-99 Automated erythrocyte mean corpuscular h emoglobin (mass per erythrocyte) 34 pg 25-34 Automated erythrocyte mean corpuscular h emoglobin concentration measurement (mass/volume) 35 g/dL 32-36 Automated erythrocyte distribution width ratio 14. 7 % 10.0- 14.5 Automated blood platelet count (count/volume) 113 10*3/uL 130-400 Automated blood platelet mean volume measurement 9.5 [foz_us] 7.4-10.4 Automated blood neutrophils/100 leukocytes 89 % 42-75 Automated blood lymphocytes/100 leukocytes 8 % 12-44 Blood monocytes/100 leukocytes 3 % 0-12 Automated blood eosinophils/100 leukocytes 0 % 0-10 Automated blood basophils/100 leukocytes 0 % 0-10 Blood neutrophils automated count (number/volume) 5.1 10*3 1.8-7.8 Blood lymphocytes automated count (number/volume) 0.5 10*3 1.0-4.0 Blood monocytes automated count (number/volume) 0. 2 10*3 0.0-1.0 Automated eosinophil count 0.0 10*3/uL 0 .0-0.3 Automated blood basophil count (count/volume) 0.0 10*3/uL 0.0-0.1 Blood manual differential performed dete ction - 12/03/16 12:31 Blood monocytes/100 leukocytes 2 % NRG Manual blood segmented neutrophils/100 leukocytes 79 % NRG Blood band neutrophils/100 leukocytes 13 % NRG Manual blood lymphocytes/100 leukocytes 5 % NRG Manual eosinophils/100 leukocytes in nose 0 % NRG Manual blood basophils/100 leukocytes 1 % NRG Blood anisocytosis detection by light microscopy S LIGHT NRG Blood ovalocytes detection by light microscopy SLI GHT NRG Comprehensive metabolic panel - 12/03/16 12:31 Serum or plasma sodium measurement (moles/volume) 133 mmol/L 135-145 Serum or plasma potassium measurement (moles/volume) 4.2 mmol/L 3.6-5.0 Serum or plasma chloride measurement (moles/volume) 100 mmol/L 98-107 Carbon dioxide 20 mmol/L 21-32 Serum or plasma anion gap determination (moles/volume) 13 mmol/L 5-14 Serum or plasma urea nitrogen measurement (mass/volume ) 17 mg/dL 7-18 Serum or plasma creatinine measurement (mass/volume) 1.08 mg/dL 0.60-1.30 Serum or plasma urea nitrogen/creatinine mass ratio 16 NRG Serum or plasma creatinine measurement w ith calculation of estimated glomerular filtration rate > NRG Serum or plasma glucose measurement (mass/volume) 415 mg/dL 70-105 Serum or plasma calcium measurement (mass/volume) 8.2 mg/dL 8.5-10.1 Serum or plasma total bilirubin measurement (mass/volu me) 0.8 mg/dL 0.1-1.0 Serum or plasma alkaline phosphatase [place] surement (enzymatic activity/volume) 65 U/L 40-136 Serum or plasma aspartate aminotransfera se measurement (enzymatic activity/volume) 28 U/L 5-34 Serum or plasma alanine aminotransferase measurement (enzymatic activity/volume) 40 U/L 0-55 Serum or plasma protein measurement (mass/volume) 5.8 g/dL 6.4-8.2 Serum or plasma albumin measurement (mass/volume) 3.7 g/dL 3.2-4.5 Serum or plasma troponin i.cardiac measu rement (mass/volume) - 12/03/16 12:31 Serum or plasma troponin i.cardiac measurement (mass/v olume) < ng/mL <0.30 Serum or plasma lithium measurement (mol es/volume) - 12/03/16 12:31 BNP level 184.8 pg/mL <100.0 Capillary blood glucose measurement by g lucometer (mass/volume) - 12/03/16 21:10 Capillary blood glucose measurement by glucometer (mas s/volume) 351 mg/dL 70-110 Complete blood count (CBC) with automate d white blood cell (WBC) differential - 12/04/16 03:55 Blood leukocytes automated count (number/volume) 3.5 10*3/uL 4.3-11.0 Blood erythrocytes automated count (number/volume) 3.06 10*6/uL 4.35-5.85 Venous blood hemoglobin measurement (mass/volume) 10.2 g/dL 13.3-17.7 Blood hematocrit (volume fraction) 29 % 40-54 Automated erythrocyte mean corpuscular volume 95 [ foz_us] 80-99 Automated erythrocyte mean corpuscular h emoglobin (mass per erythrocyte) 33 pg 25-34 Automated erythrocyte mean corpuscular h emoglobin concentration measurement (mass/volume) 35 g/dL 32-36 Automated erythrocyte distribution width ratio 14. 4 % 10.0- 14.5 Automated blood platelet count (count/volume) 125 10*3/uL 130-400 Automated blood platelet mean volume measurement 9.4 [foz_us] 7.4-10.4 Automated blood neutrophils/100 leukocytes 92 % 42-75 Automated blood lymphocytes/100 leukocytes 5 % 12-44 Blood monocytes/100 leukocytes 3 % 0-12 Automated blood eosinophils/100 leukocytes 0 % 0-10 Automated blood basophils/100 leukocytes 0 % 0-10 Blood neutrophils automated count (number/volume) 3.2 10*3 1.8-7.8 Blood lymphocytes automated count (number/volume) 0.2 10*3 1.0-4.0 Blood monocytes automated count (number/volume) 0. 1 10*3 0.0-1.0 Automated eosinophil count 0.0 10*3/uL 0 .0-0.3 Automated blood basophil count (count/volume) 0.0 10*3/uL 0.0-0.1 Comprehensive metabolic panel - 12/04/16 03:55 Serum or plasma sodium measurement (moles/volume) 136 mmol/L 135-145 Serum or plasma potassium measurement (moles/volume) 4.0 mmol/L 3.6-5.0 Serum or plasma chloride measurement (moles/volume) 102 mmol/L 98-107 Carbon dioxide 21 mmol/L 21-32 Serum or plasma anion gap determination (moles/volume) 13 mmol/L 5-14 Serum or plasma urea nitrogen measurement (mass/volume ) 18 mg/dL 7-18 Serum or plasma creatinine measurement (mass/volume) 0.97 mg/dL 0.60-1.30 Serum or plasma urea nitrogen/creatinine mass ratio 19 NRG Serum or plasma creatinine measurement w ith calculation of estimated glomerular filtration rate > NRG Serum or plasma glucose measurement (mass/volume) 295 mg/dL 70-105 Serum or plasma calcium measurement (mass/volume) 8.4 mg/dL 8.5-10.1 Serum or plasma total bilirubin measurement (mass/volu me) 0.7 mg/dL 0.1-1.0 Serum or plasma alkaline phosphatase [place] surement (enzymatic activity/volume) 60 U/L 40-136 Serum or plasma aspartate aminotransfera se measurement (enzymatic activity/volume) 24 U/L 5-34 Serum or plasma alanine aminotransferase measurement (enzymatic activity/volume) 37 U/L 0-55 Serum or plasma protein measurement (mass/volume) 5.5 g/dL 6.4-8.2 Serum or plasma albumin measurement (mass/volume) 3.6 g/dL 3.2-4.5 Bacterial blood culture - 12/07/16 14:35 FREE TEXT EXTERNAL SEE COMMENTS FOR RML SENSITIVIT Y NRG QUANTITY OF GROWTH Isolated NR Bacterial blood culture [id number] NRG Complete blood count (CBC) with automate d white blood cell (WBC) differential - 12/07/16 14:36 Blood leukocytes automated count (number/volume) 8.7 10*3/uL 4.3-11.0 Blood erythrocytes automated count (number/volume) 3.13 10*6/uL 4.35-5.85 Venous blood hemoglobin measurement (mass/volume) 10.4 g/dL 13.3-17.7 Blood hematocrit (volume fraction) 30 % 40-54 Automated erythrocyte mean corpuscular volume 96 [ foz_us] 80-99 Automated erythrocyte mean corpuscular h emoglobin (mass per erythrocyte) 33 pg 25-34 Automated erythrocyte mean corpuscular h emoglobin concentration measurement (mass/volume) 35 g/dL 32-36 Automated erythrocyte distribution width ratio 14. 8 % 10.0- 14.5 Automated blood platelet count (count/volume) 149 10*3/uL 130-400 Automated blood platelet mean volume measurement 9.6 [foz_us] 7.4-10.4 Automated blood neutrophils/100 leukocytes 93 % 42-75 Automated blood lymphocytes/100 leukocytes 3 % 12-44 Blood monocytes/100 leukocytes 4 % 0-12 Automated blood eosinophils/100 leukocytes 0 % 0-10 Automated blood basophils/100 leukocytes 0 % 0-10 Blood neutrophils automated count (number/volume) 8.1 10*3 1.8-7.8 Blood lymphocytes automated count (number/volume) 0.3 10*3 1.0-4.0 Blood monocytes automated count (number/volume) 0. 4 10*3 0.0-1.0 Automated eosinophil count 0.0 10*3/uL 0 .0-0.3 Automated blood basophil count (count/volume) 0.0 10*3/uL 0.0-0.1 Blood lactic acid measurement (moles/vol ume) - 12/07/16 14:36 Blood lactic acid measurement (moles/volume) 4.2 m mol/L 0.5- 2.0 Comprehensive metabolic panel - 12/07/16 14:36 Serum or plasma sodium measurement (moles/volume) 132 mmol/L 135-145 Serum or plasma potassium measurement (moles/volume) 3.8 mmol/L 3.6-5.0 Serum or plasma chloride measurement (moles/volume) 96 mmol/L 98-107 Carbon dioxide 23 mmol/L 21-32 Serum or plasma anion gap determination (moles/volume) 13 mmol/L 5-14 Serum or plasma urea nitrogen measurement (mass/volume ) 18 mg/dL 7-18 Serum or plasma creatinine measurement (mass/volume) 1.11 mg/dL 0.60-1.30 Serum or plasma urea nitrogen/creatinine mass ratio 16 NRG Serum or plasma creatinine measurement w ith calculation of estimated glomerular filtration rate > NRG Serum or plasma glucose measurement (mass/volume) 429 mg/dL 70-105 Serum or plasma calcium measurement (mass/volume) 8.2 mg/dL 8.5-10.1 Serum or plasma total bilirubin measurement (mass/volu me) 1.3 mg/dL 0.1-1.0 Serum or plasma alkaline phosphatase [place] surement (enzymatic activity/volume) 59 U/L 40-136 Serum or plasma aspartate aminotransfera se measurement (enzymatic activity/volume) 13 U/L 5-34 Serum or plasma alanine aminotransferase measurement (enzymatic activity/volume) 30 U/L 0-55 Serum or plasma protein measurement (mass/volume) 5.1 g/dL 6.4-8.2 Serum or plasma albumin measurement (mass/volume) 3.3 g/dL 3.2-4.5 Blood manual differential performed dete ction - 12/07/16 14:36 Blood monocytes/100 leukocytes 3 % NRG Manual blood segmented neutrophils/100 leukocytes 90 % NRG Blood band neutrophils/100 leukocytes 3 % NRG Manual blood lymphocytes/100 leukocytes 4 % NRG Blood erythrocyte morphology finding identification NORMAL NRG Serum or plasma lithium measurement (mol es/volume) - 12/07/16 14:36 BNP level 383.0 pg/mL <100.0 Serum or plasma troponin i.cardiac measu rement (mass/volume) - 12/07/16 14:36 Serum or plasma troponin i.cardiac measurement (mass/v olume) < ng/mL <0.30 Bacterial blood culture - 12/07/16 14:36 Bacterial blood culture NG NRG Complete urinalysis with reflex to cultu re - 12/07/16 16:20 Urine color determination YELLOW NRG Urine clarity determination CLEAR NR G Urine pH measurement by test strip 6.5 5-9 Specific gravity of urine by test strip 1.010 1.016-1.022 Urine protein assay by test strip, semi-quantitative 2+ NEGATIVE Urine glucose detection by automated test strip 4+ NEGATIVE Erythrocytes detection in urine sediment by light micr oscopy 2+ NEGATIVE Urine ketones detection by automated test strip NE GATIVE NEGATIVE Urine nitrite detection by test strip NEGATIVE NEGATIVE Urine total bilirubin detection by test strip NEGA TIVE NEGATIVE Urine urobilinogen measurement by automated test strip (mass/volume) NORMAL NORMAL Urine leukocyte esterase detection by dipstick NEG ATIVE NEGATIVE Automated urine sediment erythrocyte cou nt by microscopy (number/high power field) NONE NRG Automated urine sediment leukocyte count by microscopy (number/high power field) NONE NRG Bacteria detection in urine sediment by light microsco py NEGATIVE NRG Squamous epithelial cells detection in u rine sediment by light microscopy 2-5 NRG Crystals detection in urine sediment by light microsco py NONE NRG Casts detection in urine sediment by light microscopy NONE NRG Mucus detection in urine sediment by light microscopy NEGATIVE NRG Complete urinalysis with reflex to culture NO NRG C DIFFICILE AG + TOXIN A/B. - 12/07/16 2 1:15 RESULTS NEGATIVE FOR ANTIGEN AND TOXIN A/B NRG Capillary blood glucose measurement by g lucometer (mass/volume) - 12/07/16 21:24 Capillary blood glucose measurement by glucometer (mas s/volume) 347 mg/dL 70-110 Serum or plasma lactate measurement (mol es/volume) - 12/07/16 22:05 Serum or plasma lactate measurement (moles/volume) 1.6 mmol/L 0.5-2.0 Complete blood count (CBC) with automate d white blood cell (WBC) differential - 12/08/16 05:30 Blood leukocytes automated count (number/volume) 6.4 10*3/uL 4.3-11.0 Blood erythrocytes automated count (number/volume) 2.92 10*6/uL 4.35-5.85 Venous blood hemoglobin measurement (mass/volume) 10.0 g/dL 13.3-17.7 Blood hematocrit (volume fraction) 28 % 40-54 Automated erythrocyte mean corpuscular volume 96 [ foz_us] 80-99 Automated erythrocyte mean corpuscular h emoglobin (mass per erythrocyte) 34 pg 25-34 Automated erythrocyte mean corpuscular h emoglobin concentration measurement (mass/volume) 36 g/dL 32-36 Automated erythrocyte distribution width ratio 14. 4 % 10.0- 14.5 Automated blood platelet count (count/volume) 119 10*3/uL 130-400 Automated blood platelet mean volume measurement 9.9 [foz_us] 7.4-10.4 Automated blood neutrophils/100 leukocytes 93 % 42-75 Automated blood lymphocytes/100 leukocytes 3 % 12-44 Blood monocytes/100 leukocytes 4 % 0-12 Automated blood eosinophils/100 leukocytes 0 % 0-10 Automated blood basophils/100 leukocytes 0 % 0-10 Blood neutrophils automated count (number/volume) 6.0 10*3 1.8-7.8 Blood lymphocytes automated count (number/volume) 0.2 10*3 1.0-4.0 Blood monocytes automated count (number/volume) 0. 3 10*3 0.0-1.0 Automated eosinophil count 0.0 10*3/uL 0 .0-0.3 Automated blood basophil count (count/volume) 0.0 10*3/uL 0.0-0.1 Comprehensive metabolic panel - 12/08/16 05:30 Serum or plasma sodium measurement (moles/volume) 135 mmol/L 135-145 Serum or plasma potassium measurement (moles/volume) 4.3 mmol/L 3.6-5.0 Serum or plasma chloride measurement (moles/volume) 101 mmol/L 98-107 Carbon dioxide 25 mmol/L 21-32 Serum or plasma anion gap determination (moles/volume) 9 mmol/L 5-14 Serum or plasma urea nitrogen measurement (mass/volume ) 19 mg/dL 7-18 Serum or plasma creatinine measurement (mass/volume) 0.90 mg/dL 0.60-1.30 Serum or plasma urea nitrogen/creatinine mass ratio 21 NRG Serum or plasma creatinine measurement w ith calculation of estimated glomerular filtration rate > NRG Serum or plasma glucose measurement (mass/volume) 365 mg/dL 70-105 Serum or plasma calcium measurement (mass/volume) 8.3 mg/dL 8.5-10.1 Serum or plasma total bilirubin measurement (mass/volu me) 1.1 mg/dL 0.1-1.0 Serum or plasma alkaline phosphatase [place] surement (enzymatic activity/volume) 52 U/L 40-136 Serum or plasma aspartate aminotransfera se measurement (enzymatic activity/volume) 14 U/L 5-34 Serum or plasma alanine aminotransferase measurement (enzymatic activity/volume) 28 U/L 0-55 Serum or plasma protein measurement (mass/volume) 4.9 g/dL 6.4-8.2 Serum or plasma albumin measurement (mass/volume) 2.8 g/dL 3.2-4.5 Capillary blood glucose measurement by g lucometer (mass/volume) - 12/08/16 05:41 Capillary blood glucose measurement by glucometer (mas s/volume) 380 mg/dL 70-110 Capillary blood glucose measurement by g lucometer (mass/volume) - 12/08/16 10:51 Capillary blood glucose measurement by glucometer (mas s/volume) 397 mg/dL 70-110 Capillary blood glucose measurement by g lucometer (mass/volume) - 12/08/16 12:07 Capillary blood glucose measurement by glucometer (mas s/volume) 365 mg/dL 70-110 Capillary blood glucose measurement by g lucometer (mass/volume) - 12/08/16 16:16 Capillary blood glucose measurement by glucometer (mas s/volume) 226 mg/dL 70-110 Vancomycin trough - 12/08/16 17:15 Vancomycin trough 12.1 ug/mL 10.0-20.0 Capillary blood glucose measurement by g lucometer (mass/volume) - 12/08/16 18:33 Capillary blood glucose measurement by glucometer (mas s/volume) 78 mg/dL 70-110 Capillary blood glucose measurement by g lucometer (mass/volume) - 12/08/16 20:35 Capillary blood glucose measurement by glucometer (mas s/volume) 114 mg/dL 70-110 Complete blood count (CBC) with automate d white blood cell (WBC) differential - 12/09/16 05:38 Blood leukocytes automated count (number/volume) 8.7 10*3/uL 4.3-11.0 Blood erythrocytes automated count (number/volume) 2.91 10*6/uL 4.35-5.85 Venous blood hemoglobin measurement (mass/volume) 9.6 g/dL 13.3-17.7 Blood hematocrit (volume fraction) 28 % 40-54 Automated erythrocyte mean corpuscular volume 95 [ foz_us] 80-99 Automated erythrocyte mean corpuscular h emoglobin (mass per erythrocyte) 33 pg 25-34 Automated erythrocyte mean corpuscular h emoglobin concentration measurement (mass/volume) 35 g/dL 32-36 Automated erythrocyte distribution width ratio 14. 5 % 10.0- 14.5 Automated blood platelet count (count/volume) 167 10*3/uL 130-400 Automated blood platelet mean volume measurement 9.8 [foz_us] 7.4-10.4 Automated blood neutrophils/100 leukocytes 93 % 42-75 Automated blood lymphocytes/100 leukocytes 3 % 12-44 Blood monocytes/100 leukocytes 4 % 0-12 Automated blood eosinophils/100 leukocytes 0 % 0-10 Automated blood basophils/100 leukocytes 0 % 0-10 Blood neutrophils automated count (number/volume) 8.1 10*3 1.8-7.8 Blood lymphocytes automated count (number/volume) 0.2 10*3 1.0-4.0 Blood monocytes automated count (number/volume) 0. 4 10*3 0.0-1.0 Automated eosinophil count 0.0 10*3/uL 0 .0-0.3 Automated blood basophil count (count/volume) 0.0 10*3/uL 0.0-0.1 Comprehensive metabolic panel - 12/09/16 05:38 Serum or plasma sodium measurement (moles/volume) 138 mmol/L 135-145 Serum or plasma potassium measurement (moles/volume) 3.4 mmol/L 3.6-5.0 Serum or plasma chloride measurement (moles/volume) 104 mmol/L 98-107 Carbon dioxide 22 mmol/L 21-32 Serum or plasma anion gap determination (moles/volume) 12 mmol/L 5-14 Serum or plasma urea nitrogen measurement (mass/volume ) 25 mg/dL 7-18 Serum or plasma creatinine measurement (mass/volume) 0.82 mg/dL 0.60-1.30 Serum or plasma urea nitrogen/creatinine mass ratio 30 NRG Serum or plasma creatinine measurement w ith calculation of estimated glomerular filtration rate > NRG Serum or plasma glucose measurement (mass/volume) 202 mg/dL 70-105 Serum or plasma calcium measurement (mass/volume) 8.2 mg/dL 8.5-10.1 Serum or plasma total bilirubin measurement (mass/volu me) 0.6 mg/dL 0.1-1.0 Serum or plasma alkaline phosphatase [place] surement (enzymatic activity/volume) 47 U/L 40-136 Serum or plasma aspartate aminotransfera se measurement (enzymatic activity/volume) 22 U/L 5-34 Serum or plasma alanine aminotransferase measurement (enzymatic activity/volume) 33 U/L 0-55 Serum or plasma protein measurement (mass/volume) 4.9 g/dL 6.4-8.2 Serum or plasma albumin measurement (mass/volume) 2.8 g/dL 3.2-4.5 Capillary blood glucose measurement by g lucometer (mass/volume) - 12/09/16 08:36 Capillary blood glucose measurement by glucometer (mas s/volume) 217 mg/dL 70-110 Capillary blood glucose measurement by g lucometer (mass/volume) - 12/09/16 11:28 Capillary blood glucose measurement by glucometer (mas s/volume) 282 mg/dL 70-110 Capillary blood glucose measurement by g lucometer (mass/volume) - 12/09/16 16:39 Capillary blood glucose measurement by glucometer (mas s/volume) 365 mg/dL 70-110 Capillary blood glucose measurement by g lucometer (mass/volume) - 12/09/16 20:26 Capillary blood glucose measurement by glucometer (mas s/volume) 438 mg/dL 70-110 Capillary blood glucose measurement by g lucometer (mass/volume) - 12/10/16 05:47 Capillary blood glucose measurement by glucometer (mas s/volume) 279 mg/dL 70-110 Complete blood count (CBC) with automate d white blood cell (WBC) differential - 12/10/16 05:50 Blood leukocytes automated count (number/volume) 7.3 10*3/uL 4.3-11.0 Blood erythrocytes automated count (number/volume) 3.00 10*6/uL 4.35-5.85 Venous blood hemoglobin measurement (mass/volume) 9.8 g/dL 13.3-17.7 Blood hematocrit (volume fraction) 29 % 40-54 Automated erythrocyte mean corpuscular volume 95 [ foz_us] 80-99 Automated erythrocyte mean corpuscular h emoglobin (mass per erythrocyte) 33 pg 25-34 Automated erythrocyte mean corpuscular h emoglobin concentration measurement (mass/volume) 34 g/dL 32-36 Automated erythrocyte distribution width ratio 14. 5 % 10.0- 14.5 Automated blood platelet count (count/volume) 205 10*3/uL 130-400 Automated blood platelet mean volume measurement 9.7 [foz_us] 7.4-10.4 Automated blood neutrophils/100 leukocytes 89 % 42-75 Automated blood lymphocytes/100 leukocytes 4 % 12-44 Blood monocytes/100 leukocytes 7 % 0-12 Automated blood eosinophils/100 leukocytes 0 % 0-10 Automated blood basophils/100 leukocytes 0 % 0-10 Blood neutrophils automated count (number/volume) 6.5 10*3 1.8-7.8 Blood lymphocytes automated count (number/volume) 0.3 10*3 1.0-4.0 Blood monocytes automated count (number/volume) 0. 5 10*3 0.0-1.0 Automated eosinophil count 0.0 10*3/uL 0 .0-0.3 Automated blood basophil count (count/volume) 0.0 10*3/uL 0.0-0.1 Comprehensive metabolic panel - 12/10/16 05:50 Serum or plasma sodium measurement (moles/volume) 138 mmol/L 135-145 Serum or plasma potassium measurement (moles/volume) 3.9 mmol/L 3.6-5.0 Serum or plasma chloride measurement (moles/volume) 106 mmol/L 98-107 Carbon dioxide 23 mmol/L 21-32 Serum or plasma anion gap determination (moles/volume) 9 mmol/L 5-14 Serum or plasma urea nitrogen measurement (mass/volume ) 25 mg/dL 7-18 Serum or plasma creatinine measurement (mass/volume) 0.87 mg/dL 0.60-1.30 Serum or plasma urea nitrogen/creatinine mass ratio 29 NRG Serum or plasma creatinine measurement w ith calculation of estimated glomerular filtration rate > NRG Serum or plasma glucose measurement (mass/volume) 282 mg/dL 70-105 Serum or plasma calcium measurement (mass/volume) 8.3 mg/dL 8.5-10.1 Serum or plasma total bilirubin measurement (mass/volu me) 0.4 mg/dL 0.1-1.0 Serum or plasma alkaline phosphatase [place] surement (enzymatic activity/volume) 56 U/L 40-136 Serum or plasma aspartate aminotransfera se measurement (enzymatic activity/volume) 15 U/L 5-34 Serum or plasma alanine aminotransferase measurement (enzymatic activity/volume) 38 U/L 0-55 Serum or plasma protein measurement (mass/volume) 4.9 g/dL 6.4-8.2 Serum or plasma albumin measurement (mass/volume) 2.7 g/dL 3.2-4.5 Capillary blood glucose measurement by g lucometer (mass/volume) - 12/10/16 11:10 Capillary blood glucose measurement by glucometer (mas s/volume) 318 mg/dL 70-110 Complete blood count (CBC) with automate d white blood cell (WBC) differential - 04/16/17 12:55 Blood leukocytes automated count (number/volume) 9.8 10*3/uL 4.3-11.0 Blood erythrocytes automated count (number/volume) 3.37 10*6/uL 4.35-5.85 Venous blood hemoglobin measurement (mass/volume) 11.4 g/dL 13.3-17.7 Blood hematocrit (volume fraction) 33 % 40-54 Automated erythrocyte mean corpuscular volume 97 [ foz_us] 80-99 Automated erythrocyte mean corpuscular h emoglobin (mass per erythrocyte) 34 pg 25-34 Automated erythrocyte mean corpuscular h emoglobin concentration measurement (mass/volume) 35 g/dL 32-36 Automated erythrocyte distribution width ratio 15. 3 % 10.0- 14.5 Automated blood platelet count (count/volume) 140 10*3/uL 130-400 Automated blood platelet mean volume measurement 9.3 [foz_us] 7.4-10.4 Automated blood neutrophils/100 leukocytes 78 % 42-75 Automated blood lymphocytes/100 leukocytes 6 % 12-44 Blood monocytes/100 leukocytes 15 % 0-12 Automated blood eosinophils/100 leukocytes 1 % 0-10 Automated blood basophils/100 leukocytes 0 % 0-10 Blood neutrophils automated count (number/volume) 7.6 10*3 1.8-7.8 Blood lymphocytes automated count (number/volume) 0.6 10*3 1.0-4.0 Blood monocytes automated count (number/volume) 1. 5 10*3 0.0-1.0 Automated eosinophil count 0.1 10*3/uL 0 .0-0.3 Automated blood basophil count (count/volume) 0.0 10*3/uL 0.0-0.1 Comprehensive metabolic panel - 04/16/17 12:55 Serum or plasma sodium measurement (moles/volume) 135 mmol/L 135-145 Serum or plasma potassium measurement (moles/volume) 3.5 mmol/L 3.6-5.0 Serum or plasma chloride measurement (moles/volume) 99 mmol/L 98-107 Carbon dioxide 27 mmol/L 21-32 Serum or plasma anion gap determination (moles/volume) 9 mmol/L 5-14 Serum or plasma urea nitrogen measurement (mass/volume ) 12 mg/dL 7-18 Serum or plasma creatinine measurement (mass/volume) 0.77 mg/dL 0.60-1.30 Serum or plasma urea nitrogen/creatinine mass ratio 16 NRG Serum or plasma creatinine measurement w ith calculation of estimated glomerular filtration rate > NRG Serum or plasma glucose measurement (mass/volume) 83 mg/dL 70-105 Serum or plasma calcium measurement (mass/volume) 8.8 mg/dL 8.5-10.1 Serum or plasma total bilirubin measurement (mass/volu me) 1.5 mg/dL 0.1-1.0 Serum or plasma alkaline phosphatase [place] surement (enzymatic activity/volume) 62 U/L 40-136 Serum or plasma aspartate aminotransfera se measurement (enzymatic activity/volume) 18 U/L 5-34 Serum or plasma alanine aminotransferase measurement (enzymatic activity/volume) 25 U/L 0-55 Serum or plasma protein measurement (mass/volume) 5.9 g/dL 6.4-8.2 Serum or plasma albumin measurement (mass/volume) 3.7 g/dL 3.2-4.5 Blood manual differential performed dete ction - 04/16/17 12:55 Blood monocytes/100 leukocytes 12 % NRG Manual blood segmented neutrophils/100 leukocytes 80 % NRG Blood band neutrophils/100 leukocytes 0 % NRG Manual blood lymphocytes/100 leukocytes 8 % NRG Manual eosinophils/100 leukocytes in nose 0 % NRG Manual blood basophils/100 leukocytes 0 % NRG Blood erythrocyte morphology finding identification NORMAL NRG Blood lactic acid measurement (moles/vol ume) - 04/16/17 15:00 Blood lactic acid measurement (moles/volume) 1.09 mmol/L 0.50-2.00 Bacterial blood culture - 04/16/17 15:00 Bacterial blood culture NG NRG Bacterial blood culture - 04/16/17 15:07 Bacterial blood culture NG NRG Capillary blood glucose measurement by g lucometer (mass/volume) - 04/16/17 15:57 Capillary blood glucose measurement by glucometer (mas s/volume) 211 mg/dL 70-110 Sputum Gram stain - 04/16/17 17:00 Sputum Gram stain Numerous WBC's, scant mixe d bacterial harvey NRG Bacterial sputum culture - 04/16/17 17:0 0 Bacterial sputum culture NORMAL NRG Complete urinalysis with reflex to cultu re - 04/16/17 17:26 Urine color determination YELLOW NRG Urine clarity determination CLEAR NR G Urine pH measurement by test strip 7 5-9 Specific gravity of urine by test strip 1.010 1.016-1.022 Urine protein assay by test strip, semi-quantitative 1+ NEGATIVE Urine glucose detection by automated test strip 2+ NEGATIVE Erythrocytes detection in urine sediment by light micr oscopy NEGATIVE NEGATIVE Urine ketones detection by automated test strip 1+ NEGATIVE Urine nitrite detection by test strip NEGATIVE NEGATIVE Urine total bilirubin detection by test strip NEGA TIVE NEGATIVE Urine urobilinogen measurement by automated test strip (mass/volume) NORMAL NORMAL Urine leukocyte esterase detection by dipstick NEG ATIVE NEGATIVE Automated urine sediment erythrocyte cou nt by microscopy (number/high power field) NONE NRG Automated urine sediment leukocyte count by microscopy (number/high power field) RARE NRG Bacteria detection in urine sediment by light microsco py NEGATIVE NRG Squamous epithelial cells detection in u rine sediment by light microscopy NONE NRG Crystals detection in urine sediment by light microsco py NONE NRG Casts detection in urine sediment by light microscopy NONE NRG Mucus detection in urine sediment by light microscopy NEGATIVE NRG Complete urinalysis with reflex to culture NO NRG Capillary blood glucose measurement by g lucometer (mass/volume) - 04/16/17 21:27 Capillary blood glucose measurement by glucometer (mas s/volume) 221 mg/dL 70-110 Capillary blood glucose measurement by g lucometer (mass/volume) - 04/17/17 00:45 Capillary blood glucose measurement by glucometer (mas s/volume) 242 mg/dL 70-110 Capillary blood glucose measurement by g lucometer (mass/volume) - 04/17/17 05:50 Capillary blood glucose measurement by glucometer (mas s/volume) 298 mg/dL 70-110 Complete blood count (CBC) with automate d white blood cell (WBC) differential - 04/17/17 06:00 Blood leukocytes automated count (number/volume) 9.0 10*3/uL 4.3-11.0 Blood erythrocytes automated count (number/volume) 3.44 10*6/uL 4.35-5.85 Venous blood hemoglobin measurement (mass/volume) 11.5 g/dL 13.3-17.7 Blood hematocrit (volume fraction) 34 % 40-54 Automated erythrocyte mean corpuscular volume 97 [ foz_us] 80-99 Automated erythrocyte mean corpuscular h emoglobin (mass per erythrocyte) 33 pg 25-34 Automated erythrocyte mean corpuscular h emoglobin concentration measurement (mass/volume) 34 g/dL 32-36 Automated erythrocyte distribution width ratio 15. 2 % 10.0- 14.5 Automated blood platelet count (count/volume) 132 10*3/uL 130-400 Automated blood platelet mean volume measurement 9.7 [foz_us] 7.4-10.4 Automated blood neutrophils/100 leukocytes 94 % 42-75 Automated blood lymphocytes/100 leukocytes 3 % 12-44 Blood monocytes/100 leukocytes 3 % 0-12 Automated blood eosinophils/100 leukocytes 0 % 0-10 Automated blood basophils/100 leukocytes 0 % 0-10 Blood neutrophils automated count (number/volume) 8.4 10*3 1.8-7.8 Blood lymphocytes automated count (number/volume) 0.3 10*3 1.0-4.0 Blood monocytes automated count (number/volume) 0. 3 10*3 0.0-1.0 Automated eosinophil count 0.0 10*3/uL 0 .0-0.3 Automated blood basophil count (count/volume) 0.0 10*3/uL 0.0-0.1 Comprehensive metabolic panel - 04/17/17 06:00 Serum or plasma sodium measurement (moles/volume) 137 mmol/L 135-145 Serum or plasma potassium measurement (moles/volume) 4.3 mmol/L 3.6-5.0 Serum or plasma chloride measurement (moles/volume) 103 mmol/L 98-107 Carbon dioxide 21 mmol/L 21-32 Serum or plasma anion gap determination (moles/volume) 13 mmol/L 5-14 Serum or plasma urea nitrogen measurement (mass/volume ) 16 mg/dL 7-18 Serum or plasma creatinine measurement (mass/volume) 0.94 mg/dL 0.60-1.30 Serum or plasma urea nitrogen/creatinine mass ratio 17 NRG Serum or plasma creatinine measurement w ith calculation of estimated glomerular filtration rate > NRG Serum or plasma glucose measurement (mass/volume) 310 mg/dL 70-105 Serum or plasma calcium measurement (mass/volume) 8.8 mg/dL 8.5-10.1 Serum or plasma total bilirubin measurement (mass/volu me) 1.2 mg/dL 0.1-1.0 Serum or plasma alkaline phosphatase [place] surement (enzymatic activity/volume) 73 U/L 40-136 Serum or plasma aspartate aminotransfera se measurement (enzymatic activity/volume) 16 U/L 5-34 Serum or plasma alanine aminotransferase measurement (enzymatic activity/volume) 24 U/L 0-55 Serum or plasma protein measurement (mass/volume) 5.9 g/dL 6.4-8.2 Serum or plasma albumin measurement (mass/volume) 3.6 g/dL 3.2-4.5 Capillary blood glucose measurement by g lucometer (mass/volume) - 04/17/17 10:43 Capillary blood glucose measurement by glucometer (mas s/volume) 341 mg/dL 70-110 Capillary blood glucose measurement by g lucometer (mass/volume) - 05/21/17 15:32 Capillary blood glucose measurement by glucometer (mas s/volume) 153 mg/dL 70-110 Lipid 1996 panel - 05/17/18 09:15 Serum or plasma triglyceride measurement (mass/volume) 160 mg/dL <150 Serum or plasma cholesterol measurement (mass/volume) 149 mg/dL < 200 Serum or plasma cholesterol in HDL measurement (mass/v olume) 47 mg/dL 40-60 Cholesterol in LDL [mass/volume] in serum or plasma by direct assay 73 mg/dL 1-129 Serum or plasma cholesterol in VLDL measurement (mass/ volume) 32 mg/dL 5-40 THYROID STIMULATING HORMONE - 05/17/18 0 9:15 THYROID STIMULATING HORMONE 1.11 u[iU]/mL 0.35-4.94 Hemoglobin A1c - 05/17/18 09:15 Blood hemoglobin A1C measurement (mass/volume) 9.6 % 4.0-5.6 MEAN BLOOD GLUCOSE 229 % <=126 Urine microalbumin measurement by test s trip (mass/volume) - 05/17/18 09:15 Urine creatinine measurement (mass/volume) 116 % NRG Microalbumin [mass/volume] in urine 25.7 % 0.0-20.0 Microalbumin/creatinine [ratio] in urine 22.2 mg/g {Cre} 0.0- 30.0 Complete blood count (CBC) with automate d white blood cell (WBC) differential - 10/16/18 21:45 Blood leukocytes automated count (number/volume) 8.5 10*3/uL 4.3-11.0 Blood erythrocytes automated count (number/volume) 3.88 10*6/uL 4.35-5.85 Venous blood hemoglobin measurement (mass/volume) 12.4 g/dL 13.3-17.7 Blood hematocrit (volume fraction) 36 % 40-54 Automated erythrocyte mean corpuscular volume 93 [ foz_us] 80-99 Automated erythrocyte mean corpuscular h emoglobin (mass per erythrocyte) 32 pg 25-34 Automated erythrocyte mean corpuscular h emoglobin concentration measurement (mass/volume) 34 g/dL 32-36 Automated erythrocyte distribution width ratio 13. 8 % 10.0- 14.5 Automated blood platelet count (count/volume) 118 10*3/uL 130-400 Automated blood platelet mean volume measurement 8.7 [foz_us] 7.4-10.4 Automated blood neutrophils/100 leukocytes 71 % 42-75 Automated blood lymphocytes/100 leukocytes 15 % 12-44 Blood monocytes/100 leukocytes 14 % 0-12 Automated blood eosinophils/100 leukocytes 0 % 0-10 Automated blood basophils/100 leukocytes 0 % 0-10 Blood neutrophils automated count (number/volume) 6.0 10*3 1.8-7.8 Blood lymphocytes automated count (number/volume) 1.2 10*3 1.0-4.0 Blood monocytes automated count (number/volume) 1. 2 10*3 0.0-1.0 Automated eosinophil count 0.0 10*3/uL 0 .0-0.3 Automated blood basophil count (count/volume) 0.0 10*3/uL 0.0-0.1 Comprehensive metabolic panel - 10/16/18 21:45 Serum or plasma sodium measurement (moles/volume) 135 mmol/L 135-145 Serum or plasma potassium measurement (moles/volume) 3.7 mmol/L 3.6-5.0 Serum or plasma chloride measurement (moles/volume) 101 mmol/L 98-107 Carbon dioxide 20 mmol/L 21-32 Serum or plasma anion gap determination (moles/volume) 14 mmol/L 5-14 Serum or plasma urea nitrogen measurement (mass/volume ) 20 mg/dL 7-18 Serum or plasma creatinine measurement (mass/volume) 1.13 mg/dL 0.60-1.30 Serum or plasma urea nitrogen/creatinine mass ratio 18 NRG Serum or plasma creatinine measurement w ith calculation of estimated glomerular filtration rate > NRG Serum or plasma glucose measurement (mass/volume) 290 mg/dL 70-105 Serum or plasma calcium measurement (mass/volume) 8.6 mg/dL 8.5-10.1 Serum or plasma total bilirubin measurement (mass/volu me) 0.8 mg/dL 0.1-1.0 Serum or plasma alkaline phosphatase [place] surement (enzymatic activity/volume) 103 U/L 40-136 Serum or plasma aspartate aminotransfera se measurement (enzymatic activity/volume) 16 U/L 5-34 Serum or plasma alanine aminotransferase measurement (enzymatic activity/volume) 16 U/L 0-55 Serum or plasma protein measurement (mass/volume) 6.8 g/dL 6.4-8.2 Serum or plasma albumin measurement (mass/volume) 4.0 g/dL 3.2-4.5 CALCIUM CORRECTED 8.6 mg/dL 8.5-10.1 Serum or plasma lithium measurement (mol es/volume) - 10/16/18 21:45 BNP level 172.2 pg/mL <100.0 Blood lactic acid measurement (moles/vol ume) - 10/16/18 21:46 Blood lactic acid measurement (moles/volume) 1.58 mmol/L 0.50-2.00 Bacterial blood culture - 10/16/18 21:46 Bacterial blood culture NG NRG Bacterial blood culture - 10/16/18 21:46 Bacterial blood culture NG NRG Capillary blood glucose measurement by g lucometer (mass/volume) - 10/16/18 22:11 Capillary blood glucose measurement by glucometer (mas s/volume) 288 mg/dL 70-110 Influenza virus A and B antigen detectio n - 10/16/18 22:20 FLU RESULT NEGATIVE FOR INFLUENZA A AND B ANTIGENS BY IA NRG Methicillin resistant Staphylococcus aur eus (MRSA) screening culture - 10/16/18 22:20 Methicillin resistant Staphylococcus aureus (MRSA) scr eening culture NEG NRG Complete blood count (CBC) with automate d white blood cell (WBC) differential - 10/17/18 03:00 Blood leukocytes automated count (number/volume) 9.7 10*3/uL 4.3-11.0 Blood erythrocytes automated count (number/volume) 3.37 10*6/uL 4.35-5.85 Venous blood hemoglobin measurement (mass/volume) 10.9 g/dL 13.3-17.7 Blood hematocrit (volume fraction) 31 % 40-54 Automated erythrocyte mean corpuscular volume 93 [ foz_us] 80-99 Automated erythrocyte mean corpuscular h emoglobin (mass per erythrocyte) 32 pg 25-34 Automated erythrocyte mean corpuscular h emoglobin concentration measurement (mass/volume) 35 g/dL 32-36 Automated erythrocyte distribution width ratio 13. 9 % 10.0- 14.5 Automated blood platelet count (count/volume) 128 10*3/uL 130-400 Automated blood platelet mean volume measurement 8.9 [foz_us] 7.4-10.4 Automated blood neutrophils/100 leukocytes 78 % 42-75 Automated blood lymphocytes/100 leukocytes 14 % 12-44 Blood monocytes/100 leukocytes 8 % 0-12 Automated blood eosinophils/100 leukocytes 0 % 0-10 Automated blood basophils/100 leukocytes 0 % 0-10 Blood neutrophils automated count (number/volume) 7.6 10*3 1.8-7.8 Blood lymphocytes automated count (number/volume) 1.4 10*3 1.0-4.0 Blood monocytes automated count (number/volume) 0. 7 10*3 0.0-1.0 Automated eosinophil count 0.0 10*3/uL 0 .0-0.3 Automated blood basophil count (count/volume) 0.0 10*3/uL 0.0-0.1 Comprehensive metabolic panel - 10/17/18 03:00 Serum or plasma sodium measurement (moles/volume) 135 mmol/L 135-145 Serum or plasma potassium measurement (moles/volume) 4.0 mmol/L 3.6-5.0 Serum or plasma chloride measurement (moles/volume) 103 mmol/L 98-107 Carbon dioxide 20 mmol/L 21-32 Serum or plasma anion gap determination (moles/volume) 12 mmol/L 5-14 Serum or plasma urea nitrogen measurement (mass/volume ) 18 mg/dL 7-18 Serum or plasma creatinine measurement (mass/volume) 1.05 mg/dL 0.60-1.30 Serum or plasma urea nitrogen/creatinine mass ratio 17 NRG Serum or plasma creatinine measurement w ith calculation of estimated glomerular filtration rate > NRG Serum or plasma glucose measurement (mass/volume) 274 mg/dL 70-105 Serum or plasma calcium measurement (mass/volume) 8.3 mg/dL 8.5-10.1 Serum or plasma total bilirubin measurement (mass/volu me) 0.6 mg/dL 0.1-1.0 Serum or plasma alkaline phosphatase [place] surement (enzymatic activity/volume) 95 U/L 40-136 Serum or plasma aspartate aminotransfera se measurement (enzymatic activity/volume) 14 U/L 5-34 Serum or plasma alanine aminotransferase measurement (enzymatic activity/volume) 14 U/L 0-55 Serum or plasma protein measurement (mass/volume) 6.4 g/dL 6.4-8.2 Serum or plasma albumin measurement (mass/volume) 3.7 g/dL 3.2-4.5 CALCIUM CORRECTED 8.5 mg/dL 8.5-10.1 Pathologist review of blood test by blue ent - 10/17/18 03:00 Blood leukocytes automated count (number/volume) 9.7 10*3/uL 4.3-11.0 Blood erythrocytes automated count (number/volume) 3.37 10*6/uL 4.35-5.85 Venous blood hemoglobin measurement (mass/volume) 10.9 g/dL 13.3-17.7 Blood hematocrit (volume fraction) 31 % 40-54 Automated erythrocyte mean corpuscular volume 93 [ foz_us] 80-99 Automated erythrocyte mean corpuscular h emoglobin (mass per erythrocyte) 32 pg 25-34 Automated erythrocyte mean corpuscular h emoglobin concentration measurement (mass/volume) 35 g/dL 32-36 Automated erythrocyte distribution width ratio 14. 0 % 10.0- 14.5 Automated blood platelet count (count/volume) 128 10*3/uL 130-400 Automated blood platelet mean volume measurement 8.9 [foz_us] 7.4-10.4 Automated blood neutrophils/100 leukocytes 78 % 42-75 Automated blood lymphocytes/100 leukocytes 14 % 12-44 Blood monocytes/100 leukocytes 3 % NRG Automated blood eosinophils/100 leukocytes 0 % 0-10 Automated blood basophils/100 leukocytes 0 % 0-10 Blood neutrophils automated count (number/volume) 7.6 10*3 1.8-7.8 Blood lymphocytes automated count (number/volume) 1.4 10*3 1.0-4.0 Blood monocytes automated count (number/volume) 0. 7 10*3 0.0-1.0 Automated eosinophil count 0.0 10*3/uL 0 .0-0.3 Automated blood basophil count (count/volume) 0.0 10*3/uL 0.0-0.1 Manual blood segmented neutrophils/100 leukocytes 88 % NRG Manual blood lymphocytes/100 leukocytes 7 % NRG Blood lymphocytes variant/100 leukocytes 2 % NRG Blood reticulocytes count (number/volume) 39 10*9/ L 24-90 Blood reticulocytes/100 erythrocytes 1.16 % 0.50-2.40 Complete urinalysis with reflex to cultu re - 10/17/18 06:40 Urine color determination YELLOW NRG Urine clarity determination CLEAR NR G Urine pH measurement by test strip 5 5-9 Specific gravity of urine by test strip 1.015 1.016-1.022 Urine protein assay by test strip, semi-quantitative 2+ NEGATIVE Urine glucose detection by automated test strip 4+ NEGATIVE Erythrocytes detection in urine sediment by light micr oscopy NEGATIVE NEGATIVE Urine ketones detection by automated test strip 2+ NEGATIVE Urine nitrite detection by test strip NEGATIVE NEGATIVE Urine total bilirubin detection by test strip NEGA TIVE NEGATIVE Urine urobilinogen measurement by automated test strip (mass/volume) NORMAL NORMAL Urine leukocyte esterase detection by dipstick NEG ATIVE NEGATIVE Automated urine sediment erythrocyte cou nt by microscopy (number/high power field) NONE NRG Automated urine sediment leukocyte count by microscopy (number/high power field) NONE NRG Bacteria detection in urine sediment by light microsco py TRACE NRG Squamous epithelial cells detection in u rine sediment by light microscopy 0-2 NRG Crystals detection in urine sediment by light microsco py NONE NRG Casts detection in urine sediment by light microscopy NONE NRG Mucus detection in urine sediment by light microscopy NEGATIVE NRG Complete urinalysis with reflex to culture NO NRG PT panel in platelet poor plasma by coag ulation assay - 10/17/18 07:40 Prothrombin time (PT) in platelet poor plasma by coagu lation assay 15.2 s 12.2-14.7 INR in platelet poor plasma or blood by coagulation as say 1.2 0.8-1.4 Activated partial thromboplastin time (a PTT) in platelet poor plasma bycoagulation assay - 10/17/18 07:40 Activated partial thromboplastin time (a PTT) in platelet poor plasma bycoagulation assay 33 s 24-35 Capillary blood glucose measurement by g lucometer (mass/volume) - 10/17/18 11:32 Capillary blood glucose measurement by glucometer (mas s/volume) 529 mg/dL 70-110 Capillary blood glucose measurement by g lucometer (mass/volume) - 10/17/18 14:24 Capillary blood glucose measurement by glucometer (mas s/volume) 533 mg/dL 70-110 Capillary blood glucose measurement by g lucometer (mass/volume) - 10/17/18 15:38 Capillary blood glucose measurement by glucometer (mas s/volume) 476 mg/dL 70-110 Capillary blood glucose measurement by g lucometer (mass/volume) - 10/17/18 16:41 Capillary blood glucose measurement by glucometer (mas s/volume) 359 mg/dL 70-110 Capillary blood glucose measurement by g lucometer (mass/volume) - 10/17/18 17:43 Capillary blood glucose measurement by glucometer (mas s/volume) 267 mg/dL 70-110 Capillary blood glucose measurement by g lucometer (mass/volume) - 10/17/18 18:39 Capillary blood glucose measurement by glucometer (mas s/volume) 199 mg/dL 70-110 Capillary blood glucose measurement by g lucometer (mass/volume) - 10/17/18 19:54 Capillary blood glucose measurement by glucometer (mas s/volume) 129 mg/dL 70-110 Capillary blood glucose measurement by g lucometer (mass/volume) - 10/17/18 21:59 Capillary blood glucose measurement by glucometer (mas s/volume) 251 mg/dL 70-110 Capillary blood glucose measurement by g lucometer (mass/volume) - 10/18/18 00:59 Capillary blood glucose measurement by glucometer (mas s/volume) 210 mg/dL 70-110 Complete blood count (CBC) with automate d white blood cell (WBC) differential - 10/18/18 03:23 Blood leukocytes automated count (number/volume) 9.9 10*3/uL 4.3-11.0 Blood erythrocytes automated count (number/volume) 3.02 10*6/uL 4.35-5.85 Venous blood hemoglobin measurement (mass/volume) 9.7 g/dL 13.3-17.7 Blood hematocrit (volume fraction) 28 % 40-54 Automated erythrocyte mean corpuscular volume 94 [ foz_us] 80-99 Automated erythrocyte mean corpuscular h emoglobin (mass per erythrocyte) 32 pg 25-34 Automated erythrocyte mean corpuscular h emoglobin concentration measurement (mass/volume) 34 g/dL 32-36 Automated erythrocyte distribution width ratio 13. 5 % 10.0- 14.5 Automated blood platelet count (count/volume) 128 10*3/uL 130-400 Automated blood platelet mean volume measurement 8.8 [foz_us] 7.4-10.4 Automated blood neutrophils/100 leukocytes 80 % 42-75 Automated blood lymphocytes/100 leukocytes 14 % 12-44 Blood monocytes/100 leukocytes 6 % 0-12 Automated blood eosinophils/100 leukocytes 0 % 0-10 Automated blood basophils/100 leukocytes 0 % 0-10 Blood neutrophils automated count (number/volume) 8.0 10*3 1.8-7.8 Blood lymphocytes automated count (number/volume) 1.4 10*3 1.0-4.0 Blood monocytes automated count (number/volume) 0. 6 10*3 0.0-1.0 Automated eosinophil count 0.0 10*3/uL 0 .0-0.3 Automated blood basophil count (count/volume) 0.0 10*3/uL 0.0-0.1 Comprehensive metabolic panel - 10/18/18 03:23 Serum or plasma sodium measurement (moles/volume) 140 mmol/L 135-145 Serum or plasma potassium measurement (moles/volume) 3.9 mmol/L 3.6-5.0 Serum or plasma chloride measurement (moles/volume) 110 mmol/L 98-107 Carbon dioxide 20 mmol/L 21-32 Serum or plasma anion gap determination (moles/volume) 10 mmol/L 5-14 Serum or plasma urea nitrogen measurement (mass/volume ) 20 mg/dL 7-18 Serum or plasma creatinine measurement (mass/volume) 0.87 mg/dL 0.60-1.30 Serum or plasma urea nitrogen/creatinine mass ratio 23 NRG Serum or plasma creatinine measurement w ith calculation of estimated glomerular filtration rate > NRG Serum or plasma glucose measurement (mass/volume) 137 mg/dL 70-105 Serum or plasma calcium measurement (mass/volume) 7.8 mg/dL 8.5-10.1 Serum or plasma total bilirubin measurement (mass/volu me) 0.3 mg/dL 0.1-1.0 Serum or plasma alkaline phosphatase [place] surement (enzymatic activity/volume) 59 U/L 40-136 Serum or plasma aspartate aminotransfera se measurement (enzymatic activity/volume) 22 U/L 5-34 Serum or plasma alanine aminotransferase measurement (enzymatic activity/volume) 14 U/L 0-55 Serum or plasma protein measurement (mass/volume) 5.8 g/dL 6.4-8.2 Serum or plasma albumin measurement (mass/volume) 3.3 g/dL 3.2-4.5 CALCIUM CORRECTED 8.4 mg/dL 8.5-10.1 Capillary blood glucose measurement by g lucometer (mass/volume) - 10/18/18 15:54 Capillary blood glucose measurement by glucometer (mas s/volume) 187 mg/dL 70-110 Capillary blood glucose measurement by g lucometer (mass/volume) - 10/18/18 20:43 Capillary blood glucose measurement by glucometer (mas s/volume) 171 mg/dL 70-110 Capillary blood glucose measurement by g lucometer (mass/volume) - 10/19/18 00:04 Capillary blood glucose measurement by glucometer (mas s/volume) 94 mg/dL 70-110 Capillary blood glucose measurement by g lucometer (mass/volume) - 10/19/18 04:08 Capillary blood glucose measurement by glucometer (mas s/volume) 122 mg/dL 70-110 Complete blood count (CBC) with automate d white blood cell (WBC) differential - 10/19/18 05:33 Blood leukocytes automated count (number/volume) 9.0 10*3/uL 4.3-11.0 Blood erythrocytes automated count (number/volume) 2.94 10*6/uL 4.35-5.85 Venous blood hemoglobin measurement (mass/volume) 9.4 g/dL 13.3-17.7 Blood hematocrit (volume fraction) 28 % 40-54 Automated erythrocyte mean corpuscular volume 95 [ foz_us] 80-99 Automated erythrocyte mean corpuscular h emoglobin (mass per erythrocyte) 32 pg 25-34 Automated erythrocyte mean corpuscular h emoglobin concentration measurement (mass/volume) 34 g/dL 32-36 Automated erythrocyte distribution width ratio 13. 9 % 10.0- 14.5 Automated blood platelet count (count/volume) 148 10*3/uL 130-400 Automated blood platelet mean volume measurement 8.6 [foz_us] 7.4-10.4 Automated blood neutrophils/100 leukocytes 75 % 42-75 Automated blood lymphocytes/100 leukocytes 18 % 12-44 Blood monocytes/100 leukocytes 8 % 0-12 Automated blood eosinophils/100 leukocytes 0 % 0-10 Automated blood basophils/100 leukocytes 0 % 0-10 Blood neutrophils automated count (number/volume) 6.7 10*3 1.8-7.8 Blood lymphocytes automated count (number/volume) 1.6 10*3 1.0-4.0 Blood monocytes automated count (number/volume) 0. 7 10*3 0.0-1.0 Automated eosinophil count 0.0 10*3/uL 0 .0-0.3 Automated blood basophil count (count/volume) 0.0 10*3/uL 0.0-0.1 Comprehensive metabolic panel - 10/19/18 05:33 Serum or plasma sodium measurement (moles/volume) 141 mmol/L 135-145 Serum or plasma potassium measurement (moles/volume) 3.7 mmol/L 3.6-5.0 Serum or plasma chloride measurement (moles/volume) 110 mmol/L 98-107 Carbon dioxide 21 mmol/L 21-32 Serum or plasma anion gap determination (moles/volume) 10 mmol/L 5-14 Serum or plasma urea nitrogen measurement (mass/volume ) 19 mg/dL 7-18 Serum or plasma creatinine measurement (mass/volume) 0.81 mg/dL 0.60-1.30 Serum or plasma urea nitrogen/creatinine mass ratio 23 NRG Serum or plasma creatinine measurement w ith calculation of estimated glomerular filtration rate > NRG Serum or plasma glucose measurement (mass/volume) 107 mg/dL 70-105 Serum or plasma calcium measurement (mass/volume) 7.9 mg/dL 8.5-10.1 Serum or plasma total bilirubin measurement (mass/volu me) 0.3 mg/dL 0.1-1.0 Serum or plasma alkaline phosphatase [place] surement (enzymatic activity/volume) 50 U/L 40-136 Serum or plasma aspartate aminotransfera se measurement (enzymatic activity/volume) 25 U/L 5-34 Serum or plasma alanine aminotransferase measurement (enzymatic activity/volume) 23 U/L 0-55 Serum or plasma protein measurement (mass/volume) 5.4 g/dL 6.4-8.2 Serum or plasma albumin measurement (mass/volume) 3.1 g/dL 3.2-4.5 CALCIUM CORRECTED 8.6 mg/dL 8.5-10.1 Capillary blood glucose measurement by g lucometer (mass/volume) - 10/19/18 07:52 Capillary blood glucose measurement by glucometer (mas s/volume) 105 mg/dL 70-110 Capillary blood glucose measurement by g lucometer (mass/volume) - 10/19/18 11:45 Capillary blood glucose measurement by glucometer (mas s/volume) 104 mg/dL 70-110 Complete blood count (CBC) with automate d white blood cell (WBC) differential - 11/29/18 09:55 Blood leukocytes automated count (number/volume) 3.6 10*3/uL 4.3-11.0 Blood erythrocytes automated count (number/volume) 3.57 10*6/uL 4.35-5.85 Venous blood hemoglobin measurement (mass/volume) 11.4 g/dL 13.3-17.7 Blood hematocrit (volume fraction) 33 % 40-54 Automated erythrocyte mean corpuscular volume 91 [ foz_us] 80-99 Automated erythrocyte mean corpuscular h emoglobin (mass per erythrocyte) 32 pg 25-34 Automated erythrocyte mean corpuscular h emoglobin concentration measurement (mass/volume) 35 g/dL 32-36 Automated erythrocyte distribution width ratio 14. 0 % 10.0- 14.5 Automated blood platelet count (count/volume) 111 10*3/uL 130-400 Automated blood platelet mean volume measurement 9.4 [foz_us] 7.4-10.4 Automated blood neutrophils/100 leukocytes 47 % 42-75 Automated blood lymphocytes/100 leukocytes 41 % 12-44 Blood monocytes/100 leukocytes 11 % 0-12 Automated blood eosinophils/100 leukocytes 1 % 0-10 Automated blood basophils/100 leukocytes 0 % 0-10 Blood neutrophils automated count (number/volume) 1.7 10*3 1.8-7.8 Blood lymphocytes automated count (number/volume) 1.5 10*3 1.0-4.0 Blood monocytes automated count (number/volume) 0. 4 10*3 0.0-1.0 Automated eosinophil count 0.0 10*3/uL 0 .0-0.3 Automated blood basophil count (count/volume) 0.0 10*3/uL 0.0-0.1 Comprehensive metabolic panel - 11/29/18 09:55 Serum or plasma sodium measurement (moles/volume) 138 mmol/L 135-145 Serum or plasma potassium measurement (moles/volume) 3.9 mmol/L 3.6-5.0 Serum or plasma chloride measurement (moles/volume) 106 mmol/L 98-107 Carbon dioxide 22 mmol/L 21-32 Serum or plasma anion gap determination (moles/volume) 10 mmol/L 5-14 Serum or plasma urea nitrogen measurement (mass/volume ) 30 mg/dL 7-18 Serum or plasma creatinine measurement (mass/volume) 1.08 mg/dL 0.60-1.30 Serum or plasma urea nitrogen/creatinine mass ratio 28 NRG Serum or plasma creatinine measurement w ith calculation of estimated glomerular filtration rate > NRG Serum or plasma glucose measurement (mass/volume) 283 mg/dL 70-105 Serum or plasma calcium measurement (mass/volume) 8.6 mg/dL 8.5-10.1 Serum or plasma total bilirubin measurement (mass/volu me) 0.6 mg/dL 0.1-1.0 Serum or plasma alkaline phosphatase [place] surement (enzymatic activity/volume) 89 U/L 40-136 Serum or plasma aspartate aminotransfera se measurement (enzymatic activity/volume) 19 U/L 5-34 Serum or plasma alanine aminotransferase measurement (enzymatic activity/volume) 16 U/L 0-55 Serum or plasma protein measurement (mass/volume) 6.5 g/dL 6.4-8.2 Serum or plasma albumin measurement (mass/volume) 3.8 g/dL 3.2-4.5 CALCIUM CORRECTED 8.8 mg/dL 8.5-10.1 THYROID STIMULATING HORMONE - 11/29/18 0 9:55 THYROID STIMULATING HORMONE 1.66 u[iU]/mL 0.35-4.94 Serum or plasma thyroxine (T4) free malena urement (mass/volume) - 11/29/18 09:55 Serum or plasma thyroxine (T4) free measurement (mass/ volume) 0.92 ng/dL 0.70-1.48 Hemoglobin A1c - 11/29/18 09:55 Blood hemoglobin A1C measurement (mass/volume) 9.3 % 4.0-5.6 MEAN BLOOD GLUCOSE 220 % <=126 Complete blood count (CBC) with automate d white blood cell (WBC) differential - 02/24/19 09:15 Blood leukocytes automated count (number/volume) 4.8 10*3/uL 4.3-11.0 Blood erythrocytes automated count (number/volume) 3.85 10*6/uL 4.35-5.85 Venous blood hemoglobin measurement (mass/volume) 12.4 g/dL 13.3-17.7 Blood hematocrit (volume fraction) 36 % 40-54 Automated erythrocyte mean corpuscular volume 92 [ foz_us] 80-99 Automated erythrocyte mean corpuscular h emoglobin (mass per erythrocyte) 32 pg 25-34 Automated erythrocyte mean corpuscular h emoglobin concentration measurement (mass/volume) 35 g/dL 32-36 Automated erythrocyte distribution width ratio 13. 1 % 10.0- 14.5 Automated blood platelet count (count/volume) 146 10*3/uL 130-400 Automated blood platelet mean volume measurement 9.0 [foz_us] 7.4-10.4 Automated blood neutrophils/100 leukocytes 46 % 42-75 Automated blood lymphocytes/100 leukocytes 37 % 12-44 Blood monocytes/100 leukocytes 13 % 0-12 Automated blood eosinophils/100 leukocytes 4 % 0-10 Automated blood basophils/100 leukocytes 0 % 0-10 Blood neutrophils automated count (number/volume) 2.2 10*3 1.8-7.8 Blood lymphocytes automated count (number/volume) 1.8 10*3 1.0-4.0 Blood monocytes automated count (number/volume) 0. 6 10*3 0.0-1.0 Automated eosinophil count 0.2 10*3/uL 0 .0-0.3 Automated blood basophil count (count/volume) 0.0 10*3/uL 0.0-0.1 Blood lactic acid measurement (moles/vol ume) - 02/24/19 09:15 Blood lactic acid measurement (moles/volume) 0.88 mmol/L 0.50-2.00 Comprehensive metabolic panel - 02/24/19 09:15 Serum or plasma sodium measurement (moles/volume) 139 mmol/L 135-145 Serum or plasma potassium measurement (moles/volume) 4.6 mmol/L 3.6-5.0 Serum or plasma chloride measurement (moles/volume) 108 mmol/L 98-107 Carbon dioxide 22 mmol/L 21-32 Serum or plasma anion gap determination (moles/volume) 9 mmol/L 5-14 Serum or plasma urea nitrogen measurement (mass/volume ) 18 mg/dL 7-18 Serum or plasma creatinine measurement (mass/volume) 0.93 mg/dL 0.60-1.30 Serum or plasma urea nitrogen/creatinine mass ratio 19 NRG Serum or plasma creatinine measurement w ith calculation of estimated glomerular filtration rate > NRG Serum or plasma glucose measurement (mass/volume) 208 mg/dL 70-105 Serum or plasma calcium measurement (mass/volume) 9.4 mg/dL 8.5-10.1 Serum or plasma total bilirubin measurement (mass/volu me) 0.5 mg/dL 0.1-1.0 Serum or plasma alkaline phosphatase [place] surement (enzymatic activity/volume) 87 U/L 40-136 Serum or plasma aspartate aminotransfera se measurement (enzymatic activity/volume) 15 U/L 5-34 Serum or plasma alanine aminotransferase measurement (enzymatic activity/volume) 15 U/L 0-55 Serum or plasma protein measurement (mass/volume) 6.5 g/dL 6.4-8.2 Serum or plasma albumin measurement (mass/volume) 4.0 g/dL 3.2-4.5 CALCIUM CORRECTED 9.4 mg/dL 8.5-10.1 Magnesium - 02/24/19 09:15 Magnesium 1.6 mg/dL 1.8-2.4 Serum or plasma troponin i.cardiac measu rement (mass/volume) - 02/24/19 09:15 Serum or plasma troponin i.cardiac measurement (mass/v olume) < ng/mL <0.028 Serum or plasma lithium measurement (mol es/volume) - 02/24/19 09:15 BNP level 221.0 pg/mL <100.0 Bacterial blood culture - 02/24/19 09:15 Bacterial blood culture [facility] Bacterial blood culture - 02/24/19 09:30 Bacterial blood culture [facility] Comprehensive metabolic panel - 04/07/19 07:11 Serum or plasma sodium measurement (moles/volume) 138 mmol/L 135-145 Serum or plasma potassium measurement (moles/volume) 4.7 mmol/L 3.6-5.0 Serum or plasma chloride measurement (moles/volume) 103 mmol/L 98-107 Carbon dioxide 24 mmol/L 21-32 Serum or plasma anion gap determination (moles/volume) 11 mmol/L 5-14 Serum or plasma urea nitrogen measurement (mass/volume ) 16 mg/dL 7-18 Serum or plasma creatinine measurement (mass/volume) 1.15 mg/dL 0.60-1.30 Serum or plasma urea nitrogen/creatinine mass ratio 14 NRG Serum or plasma creatinine measurement w ith calculation of estimated glomerular filtration rate > NRG Serum or plasma glucose measurement (mass/volume) 211 mg/dL 70-105 Serum or plasma calcium measurement (mass/volume) 9.2 mg/dL 8.5-10.1 Serum or plasma total bilirubin measurement (mass/volu me) 0.6 mg/dL 0.1-1.0 Serum or plasma alkaline phosphatase [place] surement (enzymatic activity/volume) 93 U/L 40-136 Serum or plasma aspartate aminotransfera se measurement (enzymatic activity/volume) 18 U/L 5-34 Serum or plasma alanine aminotransferase measurement (enzymatic activity/volume) 19 U/L 0-55 Serum or plasma protein measurement (mass/volume) 7.2 g/dL 6.4-8.2 Serum or plasma albumin measurement (mass/volume) 4.3 g/dL 3.2-4.5 CALCIUM CORRECTED 9.0 mg/dL 8.5-10.1 Serum or plasma triglyceride measurement (mass/volume) - 04/07/19 07:11 Serum or plasma triglyceride measurement (mass/volume) 132 mg/dL <150 Serum or plasma cholesterol measurement (mass/volume) - 04/07/19 07:11 Serum or plasma cholesterol measurement (mass/volume) 166 mg/dL < 200 Hemoglobin A1c - 04/07/19 07:11 Blood hemoglobin A1C measurement (mass/volume) 8.0 % 4.0-5.6 MEAN BLOOD GLUCOSE 183 % <=126 Comprehensive metabolic panel - 04/26/19 10:00 Serum or plasma sodium measurement (moles/volume) 136 mmol/L 135-145 Serum or plasma potassium measurement (moles/volume) 4.4 mmol/L 3.6-5.0 Serum or plasma chloride measurement (moles/volume) 103 mmol/L 98-107 Carbon dioxide 23 mmol/L 21-32 Serum or plasma anion gap determination (moles/volume) 10 mmol/L 5-14 Serum or plasma urea nitrogen measurement (mass/volume ) 22 mg/dL 7-18 Serum or plasma creatinine measurement (mass/volume) 1.11 mg/dL 0.60-1.30 Serum or plasma urea nitrogen/creatinine mass ratio 20 NRG Serum or plasma creatinine measurement w ith calculation of estimated glomerular filtration rate > NRG Serum or plasma glucose measurement (mass/volume) 202 mg/dL 70-105 Serum or plasma calcium measurement (mass/volume) 9.1 mg/dL 8.5-10.1 Serum or plasma total bilirubin measurement (mass/volu me) 0.6 mg/dL 0.1-1.0 Serum or plasma alkaline phosphatase [place] surement (enzymatic activity/volume) 83 U/L 40-136 Serum or plasma aspartate aminotransfera se measurement (enzymatic activity/volume) 14 U/L 5-34 Serum or plasma alanine aminotransferase measurement (enzymatic activity/volume) 13 U/L 0-55 Serum or plasma protein measurement (mass/volume) 6.7 g/dL 6.4-8.2 Serum or plasma albumin measurement (mass/volume) 4.1 g/dL 3.2-4.5 CALCIUM CORRECTED 9.0 mg/dL 8.5-10.1 Serum ragweed IgE antibody assay - 04/26 10:00 Serum ragweed IgE antibody assay 181 U/L 125-220 Complete blood count (CBC) with automate d white blood cell (WBC) differential - 04/26/19 10:03 Blood leukocytes automated count (number/volume) 5.6 10*3/uL 4.3-11.0 Blood erythrocytes automated count (number/volume) 3.63 10*6/uL 4.35-5.85 Venous blood hemoglobin measurement (mass/volume) 11.6 g/dL 13.3-17.7 Blood hematocrit (volume fraction) 34 % 40-54 Automated erythrocyte mean corpuscular volume 93 [ foz_us] 80-99 Automated erythrocyte mean corpuscular h emoglobin (mass per erythrocyte) 32 pg 25-34 Automated erythrocyte mean corpuscular h emoglobin concentration measurement (mass/volume) 34 g/dL 32-36 Automated erythrocyte distribution width ratio 13. 7 % 10.0- 14.5 Automated blood platelet count (count/volume) 164 10*3/uL 130-400 Automated blood platelet mean volume measurement 8.5 [foz_us] 7.4-10.4 Automated blood neutrophils/100 leukocytes 52 % 42-75 Automated blood lymphocytes/100 leukocytes 31 % 12-44 Blood monocytes/100 leukocytes 12 % 0-12 Automated blood eosinophils/100 leukocytes 5 % 0-10 Automated blood basophils/100 leukocytes 0 % 0-10 Blood neutrophils automated count (number/volume) 2.9 10*3 1.8-7.8 Blood lymphocytes automated count (number/volume) 1.7 10*3 1.0-4.0 Blood monocytes automated count (number/volume) 0. 7 10*3 0.0-1.0 Automated eosinophil count 0.3 10*3/uL 0 .0-0.3 Automated blood basophil count (count/volume) 0.0 10*3/uL 0.0-0.1 PT panel in platelet poor plasma by coag ulation assay - 06/18/19 15:57 Prothrombin time (PT) in platelet poor plasma by coagu lation assay 13.4 s 12.2-14.7 INR in platelet poor plasma or blood by coagulation as say 1.0 0.8-1.4 Activated partial thromboplastin time (a PTT) in platelet poor plasma bycoagulation assay - 06/18/19 15:57 Activated partial thromboplastin time (a PTT) in platelet poor plasma bycoagulation assay 28 s 24-35 Comprehensive metabolic panel - 06/18/19 15:57 Serum or plasma sodium measurement (moles/volume) 140 mmol/L 135-145 Serum or plasma potassium measurement (moles/volume) 4.8 mmol/L 3.6-5.0 Serum or plasma chloride measurement (moles/volume) 105 mmol/L 98-107 Carbon dioxide 22 mmol/L 21-32 Serum or plasma anion gap determination (moles/volume) 13 mmol/L 5-14 Serum or plasma urea nitrogen measurement (mass/volume ) 20 mg/dL 7-18 Serum or plasma creatinine measurement (mass/volume) 1.10 mg/dL 0.60-1.30 Serum or plasma urea nitrogen/creatinine mass ratio 18 NRG Serum or plasma creatinine measurement w ith calculation of estimated glomerular filtration rate > NRG Serum or plasma glucose measurement (mass/volume) 175 mg/dL 70-105 Serum or plasma calcium measurement (mass/volume) 9.4 mg/dL 8.5-10.1 Serum or plasma total bilirubin measurement (mass/volu me) 0.5 mg/dL 0.1-1.0 Serum or plasma alkaline phosphatase [place] surement (enzymatic activity/volume) 83 U/L 40-136 Serum or plasma aspartate aminotransfera se measurement (enzymatic activity/volume) 17 U/L 5-34 Serum or plasma alanine aminotransferase measurement (enzymatic activity/volume) 13 U/L 0-55 Serum or plasma protein measurement (mass/volume) 7.1 g/dL 6.4-8.2 Serum or plasma albumin measurement (mass/volume) 4.1 g/dL 3.2-4.5 CALCIUM CORRECTED 9.3 mg/dL 8.5-10.1 Complete blood count (CBC) with automate d white blood cell (WBC) differential - 06/18/19 15:57 Blood leukocytes automated count (number/volume) 6.7 10*3/uL 4.3-11.0 Blood erythrocytes automated count (number/volume) 3.75 10*6/uL 4.35-5.85 Venous blood hemoglobin measurement (mass/volume) 12.1 g/dL 13.3-17.7 Blood hematocrit (volume fraction) 35 % 40-54 Automated erythrocyte mean corpuscular volume 92 [ foz_us] 80-99 Automated erythrocyte mean corpuscular h emoglobin (mass per erythrocyte) 32 pg 25-34 Automated erythrocyte mean corpuscular h emoglobin concentration measurement (mass/volume) 35 g/dL 32-36 Automated erythrocyte distribution width ratio 13. 3 % 10.0- 14.5 Automated blood platelet count (count/volume) 155 10*3/uL 130-400 Automated blood platelet mean volume measurement 9.2 [foz_us] 7.4-10.4 Automated blood neutrophils/100 leukocytes 55 % 42-75 Automated blood lymphocytes/100 leukocytes 29 % 12-44 Blood monocytes/100 leukocytes 12 % 0-12 Automated blood eosinophils/100 leukocytes 4 % 0-10 Automated blood basophils/100 leukocytes 0 % 0-10 Blood neutrophils automated count (number/volume) 3.7 10*3 1.8-7.8 Blood lymphocytes automated count (number/volume) 2.0 10*3 1.0-4.0 Blood monocytes automated count (number/volume) 0. 8 10*3 0.0-1.0 Automated eosinophil count 0.2 10*3/uL 0 .0-0.3 Automated blood basophil count (count/volume) 0.0 10*3/uL 0.0-0.1 Serum or plasma troponin i.cardiac measu rement (mass/volume) - 06/18/19 15:57 Serum or plasma troponin i.cardiac measurement (mass/v olume) < ng/mL <0.028 Complete urinalysis with reflex to cultu re - 06/18/19 16:58 Urine color determination YELLOW NRG Urine clarity determination CLEAR NR G Urine pH measurement by test strip 6 5-9 Specific gravity of urine by test strip 1.015 1.016-1.022 Urine protein assay by test strip, semi-quantitative 1+ NEGATIVE Urine glucose detection by automated test strip NE GATIVE NEGATIVE Erythrocytes detection in urine sediment by light micr oscopy NEGATIVE NEGATIVE Urine ketones detection by automated test strip NE GATIVE NEGATIVE Urine nitrite detection by test strip NEGATIVE NEGATIVE Urine total bilirubin detection by test strip NEGA TIVE NEGATIVE Urine urobilinogen measurement by automated test strip (mass/volume) NORMAL NORMAL Urine leukocyte esterase detection by dipstick NEG ATIVE NEGATIVE Automated urine sediment erythrocyte cou nt by microscopy (number/high power field) RARE NRG Automated urine sediment leukocyte count by microscopy (number/high power field) NONE NRG Bacteria detection in urine sediment by light microsco py NEGATIVE NRG Squamous epithelial cells detection in u rine sediment by light microscopy 0-2 NRG Crystals detection in urine sediment by light microsco py NONE NRG Casts detection in urine sediment by light microscopy NONE NRG Mucus detection in urine sediment by light microscopy NEGATIVE NRG Complete urinalysis with reflex to culture NO NRG Methicillin resistant Staphylococcus aur eus (MRSA) screening culture - 06/18/19 20:30 Methicillin resistant Staphylococcus aureus (MRSA) scr eening culture NEG NRG Capillary blood glucose measurement by g lucometer (mass/volume) - 06/18/19 22:04 Capillary blood glucose measurement by glucometer (mas s/volume) 214 mg/dL 70-110 Complete blood count (CBC) with automate d white blood cell (WBC) differential - 06/19/19 05:45 Blood leukocytes automated count (number/volume) 8.3 10*3/uL 4.3-11.0 Blood erythrocytes automated count (number/volume) 3.51 10*6/uL 4.35-5.85 Venous blood hemoglobin measurement (mass/volume) 11.2 g/dL 13.3-17.7 Blood hematocrit (volume fraction) 32 % 40-54 Automated erythrocyte mean corpuscular volume 92 [ foz_us] 80-99 Automated erythrocyte mean corpuscular h emoglobin (mass per erythrocyte) 32 pg 25-34 Automated erythrocyte mean corpuscular h emoglobin concentration measurement (mass/volume) 35 g/dL 32-36 Automated erythrocyte distribution width ratio 13. 3 % 10.0- 14.5 Automated blood platelet count (count/volume) 144 10*3/uL 130-400 Automated blood platelet mean volume measurement 9.0 [foz_us] 7.4-10.4 Automated blood neutrophils/100 leukocytes 68 % 42-75 Automated blood lymphocytes/100 leukocytes 17 % 12-44 Blood monocytes/100 leukocytes 12 % 0-12 Automated blood eosinophils/100 leukocytes 2 % 0-10 Automated blood basophils/100 leukocytes 0 % 0-10 Blood neutrophils automated count (number/volume) 5.7 10*3 1.8-7.8 Blood lymphocytes automated count (number/volume) 1.4 10*3 1.0-4.0 Blood monocytes automated count (number/volume) 1. 0 10*3 0.0-1.0 Automated eosinophil count 0.2 10*3/uL 0 .0-0.3 Automated blood basophil count (count/volume) 0.0 10*3/uL 0.0-0.1 Comprehensive metabolic panel - 06/19/19 05:45 Serum or plasma sodium measurement (moles/volume) 138 mmol/L 135-145 Serum or plasma potassium measurement (moles/volume) 4.2 mmol/L 3.6-5.0 Serum or plasma chloride measurement (moles/volume) 105 mmol/L 98-107 Carbon dioxide 24 mmol/L 21-32 Serum or plasma anion gap determination (moles/volume) 9 mmol/L 5-14 Serum or plasma urea nitrogen measurement (mass/volume ) 16 mg/dL 7-18 Serum or plasma creatinine measurement (mass/volume) 1.03 mg/dL 0.60-1.30 Serum or plasma urea nitrogen/creatinine mass ratio 16 NRG Serum or plasma creatinine measurement w ith calculation of estimated glomerular filtration rate > NRG Serum or plasma glucose measurement (mass/volume) 245 mg/dL 70-105 Serum or plasma calcium measurement (mass/volume) 8.5 mg/dL 8.5-10.1 Serum or plasma total bilirubin measurement (mass/volu me) 0.7 mg/dL 0.1-1.0 Serum or plasma alkaline phosphatase [place] surement (enzymatic activity/volume) 79 U/L 40-136 Serum or plasma aspartate aminotransfera se measurement (enzymatic activity/volume) 19 U/L 5-34 Serum or plasma alanine aminotransferase measurement (enzymatic activity/volume) 12 U/L 0-55 Serum or plasma protein measurement (mass/volume) 6.3 g/dL 6.4-8.2 Serum or plasma albumin measurement (mass/volume) 3.7 g/dL 3.2-4.5 CALCIUM CORRECTED 8.7 mg/dL 8.5-10.1 Capillary blood glucose measurement by g lucometer (mass/volume) - 06/19/19 11:04 Capillary blood glucose measurement by glucometer (mas s/volume) 202 mg/dL 70-110 Capillary blood glucose measurement by g lucometer (mass/volume) - 06/19/19 12:13 Capillary blood glucose measurement by glucometer (mas s/volume) 218 mg/dL 70-110 Capillary blood glucose measurement by g lucometer (mass/volume) - 06/19/19 15:54 Capillary blood glucose measurement by glucometer (mas s/volume) 220 mg/dL 70-110 Capillary blood glucose measurement by g lucometer (mass/volume) - 06/19/19 19:54 Capillary blood glucose measurement by glucometer (mas s/volume) 187 mg/dL 70-110 Complete blood count (CBC) with automate d white blood cell (WBC) differential - 06/20/19 05:05 Blood leukocytes automated count (number/volume) 8.9 10*3/uL 4.3-11.0 Blood erythrocytes automated count (number/volume) 2.87 10*6/uL 4.35-5.85 Venous blood hemoglobin measurement (mass/volume) 9.3 g/dL 13.3-17.7 Blood hematocrit (volume fraction) 27 % 40-54 Automated erythrocyte mean corpuscular volume 94 [ foz_us] 80-99 Automated erythrocyte mean corpuscular h emoglobin (mass per erythrocyte) 32 pg 25-34 Automated erythrocyte mean corpuscular h emoglobin concentration measurement (mass/volume) 34 g/dL 32-36 Automated erythrocyte distribution width ratio 13. 4 % 10.0- 14.5 Automated blood platelet count (count/volume) 126 10*3/uL 130-400 Automated blood platelet mean volume measurement 9.3 [foz_us] 7.4-10.4 Automated blood neutrophils/100 leukocytes 71 % 42-75 Automated blood lymphocytes/100 leukocytes 14 % 12-44 Blood monocytes/100 leukocytes 10 % 0-12 Automated blood eosinophils/100 leukocytes 4 % 0-10 Automated blood basophils/100 leukocytes 0 % 0-10 Blood neutrophils automated count (number/volume) 6.4 10*3 1.8-7.8 Blood lymphocytes automated count (number/volume) 1.3 10*3 1.0-4.0 Blood monocytes automated count (number/volume) 0. 9 10*3 0.0-1.0 Automated eosinophil count 0.4 10*3/uL 0 .0-0.3 Automated blood basophil count (count/volume) 0.0 10*3/uL 0.0-0.1 Comprehensive metabolic panel - 06/20/19 05:05 Serum or plasma sodium measurement (moles/volume) 135 mmol/L 135-145 Serum or plasma potassium measurement (moles/volume) 4.4 mmol/L 3.6-5.0 Serum or plasma chloride measurement (moles/volume) 102 mmol/L 98-107 Carbon dioxide 21 mmol/L 21-32 Serum or plasma anion gap determination (moles/volume) 12 mmol/L 5-14 Serum or plasma urea nitrogen measurement (mass/volume ) 14 mg/dL 7-18 Serum or plasma creatinine measurement (mass/volume) 1.24 mg/dL 0.60-1.30 Serum or plasma urea nitrogen/creatinine mass ratio 11 NRG Serum or plasma creatinine measurement w ith calculation of estimated glomerular filtration rate 56 NRG Serum or plasma glucose measurement (mass/volume) 269 mg/dL 70-105 Serum or plasma calcium measurement (mass/volume) 8.1 mg/dL 8.5-10.1 Serum or plasma total bilirubin measurement (mass/volu me) 0.6 mg/dL 0.1-1.0 Serum or plasma alkaline phosphatase [place] surement (enzymatic activity/volume) 50 U/L 40-136 Serum or plasma aspartate aminotransfera se measurement (enzymatic activity/volume) 15 U/L 5-34 Serum or plasma alanine aminotransferase measurement (enzymatic activity/volume) 9 U/L 0-55 Serum or plasma protein measurement (mass/volume) 5.9 g/dL 6.4-8.2 Serum or plasma albumin measurement (mass/volume) 3.5 g/dL 3.2-4.5 CALCIUM CORRECTED 8.5 mg/dL 8.5-10.1 Capillary blood glucose measurement by g lucometer (mass/volume) - 06/20/19 11:05 Capillary blood glucose measurement by glucometer (mas s/volume) 301 mg/dL 70-110 Capillary blood glucose measurement by g lucometer (mass/volume) - 06/20/19 15:27 Capillary blood glucose measurement by glucometer (mas s/volume) 237 mg/dL 70-110 Capillary blood glucose measurement by g lucometer (mass/volume) - 06/20/19 19:46 Capillary blood glucose measurement by glucometer (mas s/volume) 222 mg/dL 70-110 Complete blood count (CBC) with automate d white blood cell (WBC) differential - 06/21/19 05:14 Blood leukocytes automated count (number/volume) 6.3 10*3/uL 4.3-11.0 Blood erythrocytes automated count (number/volume) 2.34 10*6/uL 4.35-5.85 Venous blood hemoglobin measurement (mass/volume) 7.5 g/dL 13.3-17.7 Blood hematocrit (volume fraction) 22 % 40-54 Automated erythrocyte mean corpuscular volume 96 [ foz_us] 80-99 Automated erythrocyte mean corpuscular h emoglobin (mass per erythrocyte) 32 pg 25-34 Automated erythrocyte mean corpuscular h emoglobin concentration measurement (mass/volume) 34 g/dL 32-36 Automated erythrocyte distribution width ratio 13. 5 % 10.0- 14.5 Automated blood platelet count (count/volume) 91 1 0*3/uL 130-400 Automated blood platelet mean volume measurement 8.7 [foz_us] 7.4-10.4 Automated blood neutrophils/100 leukocytes 69 % 42-75 Automated blood lymphocytes/100 leukocytes 17 % 12-44 Blood monocytes/100 leukocytes 11 % 0-12 Automated blood eosinophils/100 leukocytes 3 % 0-10 Automated blood basophils/100 leukocytes 0 % 0-10 Blood neutrophils automated count (number/volume) 4.3 10*3 1.8-7.8 Blood lymphocytes automated count (number/volume) 1.1 10*3 1.0-4.0 Blood monocytes automated count (number/volume) 0. 7 10*3 0.0-1.0 Automated eosinophil count 0.2 10*3/uL 0 .0-0.3 Automated blood basophil count (count/volume) 0.0 10*3/uL 0.0-0.1 Comprehensive metabolic panel - 06/21/19 05:14 Serum or plasma sodium measurement (moles/volume) 138 mmol/L 135-145 Serum or plasma potassium measurement (moles/volume) 4.0 mmol/L 3.6-5.0 Serum or plasma chloride measurement (moles/volume) 104 mmol/L 98-107 Carbon dioxide 23 mmol/L 21-32 Serum or plasma anion gap determination (moles/volume) 11 mmol/L 5-14 Serum or plasma urea nitrogen measurement (mass/volume ) 15 mg/dL 7-18 Serum or plasma creatinine measurement (mass/volume) 1.03 mg/dL 0.60-1.30 Serum or plasma urea nitrogen/creatinine mass ratio 15 NRG Serum or plasma creatinine measurement w ith calculation of estimated glomerular filtration rate > NRG Serum or plasma glucose measurement (mass/volume) 194 mg/dL 70-105 Serum or plasma calcium measurement (mass/volume) 8.0 mg/dL 8.5-10.1 Serum or plasma total bilirubin measurement (mass/volu me) 0.6 mg/dL 0.1-1.0 Serum or plasma alkaline phosphatase [place] surement (enzymatic activity/volume) 46 U/L 40-136 Serum or plasma aspartate aminotransfera se measurement (enzymatic activity/volume) 21 U/L 5-34 Serum or plasma alanine aminotransferase measurement (enzymatic activity/volume) 9 U/L 0-55 Serum or plasma protein measurement (mass/volume) 5.5 g/dL 6.4-8.2 Serum or plasma albumin measurement (mass/volume) 3.1 g/dL 3.2-4.5 CALCIUM CORRECTED 8.7 mg/dL 8.5-10.1 Capillary blood glucose measurement by g lucometer (mass/volume) - 06/21/19 05:39 Capillary blood glucose measurement by glucometer (mas s/volume) 205 mg/dL 70-110 Capillary blood glucose measurement by g lucometer (mass/volume) - 06/21/19 08:21 Capillary blood glucose measurement by glucometer (mas s/volume) 358 mg/dL 70-110 Serum or plasma phosphate measurement (m ass/volume) - 06/21/19 09:20 Serum or plasma phosphate measurement (mass/volume) 2.8 mg/dL 2.3-4.7 Magnesium - 06/21/19 09:20 Magnesium 1.3 mg/dL 1.6-2.4 Blood lactic acid measurement (moles/vol ume) - 06/21/19 09:20 Blood lactic acid measurement (moles/volume) 2.69 mmol/L 0.50-2.00 RED CELLS LEUKO REDUCED AS1 - 06/21/19 0 9:20 RED CELLS LEUKO REDUCED AS1 T RANSFUSED 06/21/19 1344 NRG Blood type T Indirect antibody screen pa keturah - 06/21/19 09:20 WRISTBAND NUMBER [id number] NRG ABO+Rh group OP NRG Blood group antibody screen NEGATIVE NR G Bacterial blood culture - 06/21/19 09:20 Bacterial blood culture NG NRG Bacterial blood culture - 06/21/19 09:37 Bacterial blood culture NG NRG Capillary blood glucose measurement by g lucometer (mass/volume) - 06/21/19 12:32 Capillary blood glucose measurement by glucometer (mas s/volume) 231 mg/dL 70-110 Bacterial urine culture - 06/21/19 14:18 Bacterial urine culture NG NRG Influenza virus A and B antigen detectio n - 06/21/19 14:20 FLU RESULT NEGATIVE FOR INFLUENZA A AND B ANTIGENS BY IA NRG Methicillin resistant Staphylococcus aur eus (MRSA) screening culture - 06/21/19 14:22 Methicillin resistant Staphylococcus aureus (MRSA) scr eening culture NEG NRG Serum or plasma lactate measurement (mol es/volume) - 06/21/19 14:54 Serum or plasma lactate measurement (moles/volume) 1.36 mmol/L 0.50-2.00 Capillary blood glucose measurement by g lucometer (mass/volume) - 06/21/19 15:51 Capillary blood glucose measurement by glucometer (mas s/volume) 247 mg/dL 70-110 Capillary blood glucose measurement by g lucometer (mass/volume) - 06/21/19 20:56 Capillary blood glucose measurement by glucometer (mas s/volume) 291 mg/dL 70-110 Complete blood count (CBC) with automate d white blood cell (WBC) differential - 06/22/19 04:03 Blood leukocytes automated count (number/volume) 7.3 10*3/uL 4.3-11.0 Blood erythrocytes automated count (number/volume) 2.84 10*6/uL 4.35-5.85 Venous blood hemoglobin measurement (mass/volume) 9.2 g/dL 13.3-17.7 Blood hematocrit (volume fraction) 26 % 40-54 Automated erythrocyte mean corpuscular volume 92 [ foz_us] 80-99 Automated erythrocyte mean corpuscular h emoglobin (mass per erythrocyte) 32 pg 25-34 Automated erythrocyte mean corpuscular h emoglobin concentration measurement (mass/volume) 35 g/dL 32-36 Automated erythrocyte distribution width ratio 14. 3 % 10.0- 14.5 Automated blood platelet count (count/volume) 102 10*3/uL 130-400 Automated blood platelet mean volume measurement 9.7 [foz_us] 7.4-10.4 Automated blood neutrophils/100 leukocytes 76 % 42-75 Automated blood lymphocytes/100 leukocytes 12 % 12-44 Blood monocytes/100 leukocytes 11 % 0-12 Automated blood eosinophils/100 leukocytes 1 % 0-10 Automated blood basophils/100 leukocytes 0 % 0-10 Blood neutrophils automated count (number/volume) 5.5 10*3 1.8-7.8 Blood lymphocytes automated count (number/volume) 0.9 10*3 1.0-4.0 Blood monocytes automated count (number/volume) 0. 8 10*3 0.0-1.0 Automated eosinophil count 0.1 10*3/uL 0 .0-0.3 Automated blood basophil count (count/volume) 0.0 10*3/uL 0.0-0.1 Comprehensive metabolic panel - 06/22/19 04:03 Serum or plasma sodium measurement (moles/volume) 136 mmol/L 135-145 Serum or plasma potassium measurement (moles/volume) 3.6 mmol/L 3.6-5.0 Serum or plasma chloride measurement (moles/volume) 100 mmol/L 98-107 Carbon dioxide 24 mmol/L 21-32 Serum or plasma anion gap determination (moles/volume) 12 mmol/L 5-14 Serum or plasma urea nitrogen measurement (mass/volume ) 19 mg/dL 7-18 Serum or plasma creatinine measurement (mass/volume) 1.06 mg/dL 0.60-1.30 Serum or plasma urea nitrogen/creatinine mass ratio 18 NRG Serum or plasma creatinine measurement w ith calculation of estimated glomerular filtration rate > NRG Serum or plasma glucose measurement (mass/volume) 236 mg/dL 70-105 Serum or plasma calcium measurement (mass/volume) 8.0 mg/dL 8.5-10.1 Serum or plasma total bilirubin measurement (mass/volu me) 1.3 mg/dL 0.1-1.0 Serum or plasma alkaline phosphatase [place] surement (enzymatic activity/volume) 48 U/L 40-136 Serum or plasma aspartate aminotransfera se measurement (enzymatic activity/volume) 27 U/L 5-34 Serum or plasma alanine aminotransferase measurement (enzymatic activity/volume) 14 U/L 0-55 Serum or plasma protein measurement (mass/volume) 5.8 g/dL 6.4-8.2 Serum or plasma albumin measurement (mass/volume) 3.4 g/dL 3.2-4.5 CALCIUM CORRECTED 8.5 mg/dL 8.5-10.1 Serum or plasma phosphate measurement (m ass/volume) - 06/22/19 04:03 Serum or plasma phosphate measurement (mass/volume) 2.8 mg/dL 2.3-4.7 Magnesium - 06/22/19 04:03 Magnesium 1.5 mg/dL 1.6-2.4 Serum ragweed IgE antibody assay - 06/22 04:03 Serum ragweed IgE antibody assay 296 U/L 125-220 Complete blood count (CBC) with automate d white blood cell (WBC) differential - 06/22/19 04:03 Blood leukocytes automated count (number/volume) 7.3 10*3/uL 4.3-11.0 Blood erythrocytes automated count (number/volume) 2.84 10*6/uL 4.35-5.85 Venous blood hemoglobin measurement (mass/volume) 9.2 g/dL 13.3-17.7 Blood hematocrit (volume fraction) 26 % 40-54 Automated erythrocyte mean corpuscular volume 92 [ foz_us] 80-99 Automated erythrocyte mean corpuscular h emoglobin (mass per erythrocyte) 32 pg 25-34 Automated erythrocyte mean corpuscular h emoglobin concentration measurement (mass/volume) 35 g/dL 32-36 Automated erythrocyte distribution width ratio 14. 3 % 10.0- 14.5 Automated blood platelet count (count/volume) 102 10*3/uL 130-400 Automated blood platelet mean volume measurement 9.7 [foz_us] 7.4-10.4 Automated blood neutrophils/100 leukocytes 76 % 42-75 Automated blood lymphocytes/100 leukocytes 12 % 12-44 Blood monocytes/100 leukocytes 11 % 0-12 Automated blood eosinophils/100 leukocytes 1 % 0-10 Automated blood basophils/100 leukocytes 0 % 0-10 Blood neutrophils automated count (number/volume) 5.5 10*3 1.8-7.8 Blood lymphocytes automated count (number/volume) 0.9 10*3 1.0-4.0 Blood monocytes automated count (number/volume) 0. 8 10*3 0.0-1.0 Automated eosinophil count 0.1 10*3/uL 0 .0-0.3 Automated blood basophil count (count/volume) 0.0 10*3/uL 0.0-0.1 Capillary blood glucose measurement by g lucometer (mass/volume) - 06/22/19 04:57 Capillary blood glucose measurement by glucometer (mas s/volume) 256 mg/dL 70-110 Capillary blood glucose measurement by g lucometer (mass/volume) - 06/22/19 11:10 Capillary blood glucose measurement by glucometer (mas s/volume) 349 mg/dL 70-110 Capillary blood glucose measurement by g lucometer (mass/volume) - 06/22/19 15:23 Capillary blood glucose measurement by glucometer (mas s/volume) 202 mg/dL 70-110 Capillary blood glucose measurement by g lucometer (mass/volume) - 06/22/19 20:37 Capillary blood glucose measurement by glucometer (mas s/volume) 155 mg/dL 70-110 Complete blood count (CBC) with automate d white blood cell (WBC) differential - 06/23/19 03:20 Blood leukocytes automated count (number/volume) 5.1 10*3/uL 4.3-11.0 Blood erythrocytes automated count (number/volume) 2.71 10*6/uL 4.35-5.85 Venous blood hemoglobin measurement (mass/volume) 8.5 g/dL 13.3-17.7 Blood hematocrit (volume fraction) 25 % 40-54 Automated erythrocyte mean corpuscular volume 93 [ foz_us] 80-99 Automated erythrocyte mean corpuscular h emoglobin (mass per erythrocyte) 31 pg 25-34 Automated erythrocyte mean corpuscular h emoglobin concentration measurement (mass/volume) 34 g/dL 32-36 Automated erythrocyte distribution width ratio 14. 0 % 10.0- 14.5 Automated blood platelet count (count/volume) 113 10*3/uL 130-400 Automated blood platelet mean volume measurement 8.9 [foz_us] 7.4-10.4 Automated blood neutrophils/100 leukocytes 55 % 42-75 Automated blood lymphocytes/100 leukocytes 24 % 12-44 Blood monocytes/100 leukocytes 15 % 0-12 Automated blood eosinophils/100 leukocytes 6 % 0-10 Automated blood basophils/100 leukocytes 0 % 0-10 Blood neutrophils automated count (number/volume) 2.8 10*3 1.8-7.8 Blood lymphocytes automated count (number/volume) 1.2 10*3 1.0-4.0 Blood monocytes automated count (number/volume) 0. 8 10*3 0.0-1.0 Automated eosinophil count 0.3 10*3/uL 0 .0-0.3 Automated blood basophil count (count/volume) 0.0 10*3/uL 0.0-0.1 Whole blood basic metabolic panel - 04/05 03:20 Serum or plasma sodium measurement (moles/volume) 139 mmol/L 135-145 Serum or plasma potassium measurement (moles/volume) 3.5 mmol/L 3.6-5.0 Serum or plasma chloride measurement (moles/volume) 103 mmol/L 98-107 Carbon dioxide 25 mmol/L 21-32 Serum or plasma anion gap determination (moles/volume) 11 mmol/L 5-14 Serum or plasma urea nitrogen measurement (mass/volume ) 22 mg/dL 7-18 Serum or plasma creatinine measurement (mass/volume) 1.02 mg/dL 0.60-1.30 Serum or plasma urea nitrogen/creatinine mass ratio 22 NRG Serum or plasma creatinine measurement w ith calculation of estimated glomerular filtration rate > NRG Serum or plasma glucose measurement (mass/volume) 146 mg/dL 70-105 Serum or plasma calcium measurement (mass/volume) 8.1 mg/dL 8.5-10.1 Serum or plasma phosphate measurement (m ass/volume) - 06/23/19 03:20 Serum or plasma phosphate measurement (mass/volume) 3.4 mg/dL 2.3-4.7 Magnesium - 06/23/19 03:20 Magnesium 1.9 mg/dL 1.6-2.4 Capillary blood glucose measurement by g lucometer (mass/volume) - 06/23/19 11:06 Capillary blood glucose measurement by glucometer (mas s/volume) 247 mg/dL 70-110 Capillary blood glucose measurement by g lucometer (mass/volume) - 06/23/19 16:03 Capillary blood glucose measurement by glucometer (mas s/volume) 253 mg/dL 70-110 Capillary blood glucose measurement by g lucometer (mass/volume) - 06/23/19 20:51 Capillary blood glucose measurement by glucometer (mas s/volume) 293 mg/dL 70-110 Capillary blood glucose measurement by g lucometer (mass/volume) - 06/24/19 05:53 Capillary blood glucose measurement by glucometer (mas s/volume) 185 mg/dL 70-110 Complete blood count (CBC) with automate d white blood cell (WBC) differential - 06/24/19 07:00 Blood leukocytes automated count (number/volume) 4.5 10*3/uL 4.3-11.0 Blood erythrocytes automated count (number/volume) 2.64 10*6/uL 4.35-5.85 Venous blood hemoglobin measurement (mass/volume) 8.4 g/dL 13.3-17.7 Blood hematocrit (volume fraction) 25 % 40-54 Automated erythrocyte mean corpuscular volume 95 [ foz_us] 80-99 Automated erythrocyte mean corpuscular h emoglobin (mass per erythrocyte) 32 pg 25-34 Automated erythrocyte mean corpuscular h emoglobin concentration measurement (mass/volume) 34 g/dL 32-36 Automated erythrocyte distribution width ratio 13. 9 % 10.0- 14.5 Automated blood platelet count (count/volume) 132 10*3/uL 130-400 Automated blood platelet mean volume measurement 9.1 [foz_us] 7.4-10.4 Automated blood neutrophils/100 leukocytes 56 % 42-75 Automated blood lymphocytes/100 leukocytes 27 % 12-44 Blood monocytes/100 leukocytes 12 % 0-12 Automated blood eosinophils/100 leukocytes 5 % 0-10 Automated blood basophils/100 leukocytes 0 % 0-10 Blood neutrophils automated count (number/volume) 2.5 10*3 1.8-7.8 Blood lymphocytes automated count (number/volume) 1.2 10*3 1.0-4.0 Blood monocytes automated count (number/volume) 0. 6 10*3 0.0-1.0 Automated eosinophil count 0.2 10*3/uL 0 .0-0.3 Automated blood basophil count (count/volume) 0.0 10*3/uL 0.0-0.1 Comprehensive metabolic panel - 06/24/19 07:00 Serum or plasma sodium measurement (moles/volume) 142 mmol/L 135-145 Serum or plasma potassium measurement (moles/volume) 3.6 mmol/L 3.6-5.0 Serum or plasma chloride measurement (moles/volume) 106 mmol/L 98-107 Carbon dioxide 26 mmol/L 21-32 Serum or plasma anion gap determination (moles/volume) 10 mmol/L 5-14 Serum or plasma urea nitrogen measurement (mass/volume ) 22 mg/dL 7-18 Serum or plasma creatinine measurement (mass/volume) 1.06 mg/dL 0.60-1.30 Serum or plasma urea nitrogen/creatinine mass ratio 21 NRG Serum or plasma creatinine measurement w ith calculation of estimated glomerular filtration rate > NRG Serum or plasma glucose measurement (mass/volume) 157 mg/dL 70-105 Serum or plasma calcium measurement (mass/volume) 8.1 mg/dL 8.5-10.1 Serum or plasma total bilirubin measurement (mass/volu me) 1.1 mg/dL 0.1-1.0 Serum or plasma alkaline phosphatase [place] surement (enzymatic activity/volume) 39 U/L 40-136 Serum or plasma aspartate aminotransfera se measurement (enzymatic activity/volume) 35 U/L 5-34 Serum or plasma alanine aminotransferase measurement (enzymatic activity/volume) 32 U/L 0-55 Serum or plasma protein measurement (mass/volume) 5.7 g/dL 6.4-8.2 Serum or plasma albumin measurement (mass/volume) 3.1 g/dL 3.2-4.5 CALCIUM CORRECTED 8.8 mg/dL 8.5-10.1 Capillary blood glucose measurement by g lucometer (mass/volume) - 06/24/19 11:38 Capillary blood glucose measurement by glucometer (mas s/volume) 192 mg/dL 70-110 Capillary blood glucose measurement by g lucometer (mass/volume) - 06/24/19 15:46 Capillary blood glucose measurement by glucometer (mas s/volume) 170 mg/dL 70-110 Capillary blood glucose measurement by g lucometer (mass/volume) - 06/24/19 20:26 Capillary blood glucose measurement by glucometer (mas s/volume) 210 mg/dL 70-110 Capillary blood glucose measurement by g lucometer (mass/volume) - 06/25/19 05:19 Capillary blood glucose measurement by glucometer (mas s/volume) 196 mg/dL 70-110 Capillary blood glucose measurement by g lucometer (mass/volume) - 06/25/19 11:28 Capillary blood glucose measurement by glucometer (mas s/volume) 201 mg/dL 70-110 Capillary blood glucose measurement by g lucometer (mass/volume) - 06/25/19 16:17 Capillary blood glucose measurement by glucometer (mas s/volume) 192 mg/dL 70-110 Capillary blood glucose measurement by g lucometer (mass/volume) - 06/25/19 20:30 Capillary blood glucose measurement by glucometer (mas s/volume) 211 mg/dL 70-110 Capillary blood glucose measurement by g lucometer (mass/volume) - 06/26/19 05:44 Capillary blood glucose measurement by glucometer (mas s/volume) 119 mg/dL 70-110 Complete blood count (CBC) with automate d white blood cell (WBC) differential - 06/26/19 05:45 Blood leukocytes automated count (number/volume) 6.3 10*3/uL 4.3-11.0 Blood erythrocytes automated count (number/volume) 2.80 10*6/uL 4.35-5.85 Venous blood hemoglobin measurement (mass/volume) 8.9 g/dL 13.3-17.7 Blood hematocrit (volume fraction) 27 % 40-54 Automated erythrocyte mean corpuscular volume 95 [ foz_us] 80-99 Automated erythrocyte mean corpuscular h emoglobin (mass per erythrocyte) 32 pg 25-34 Automated erythrocyte mean corpuscular h emoglobin concentration measurement (mass/volume) 34 g/dL 32-36 Automated erythrocyte distribution width ratio 13. 8 % 10.0- 14.5 Automated blood platelet count (count/volume) 201 10*3/uL 130-400 Automated blood platelet mean volume measurement 8.7 [foz_us] 7.4-10.4 Automated blood neutrophils/100 leukocytes 61 % 42-75 Automated blood lymphocytes/100 leukocytes 24 % 12-44 Blood monocytes/100 leukocytes 10 % 0-12 Automated blood eosinophils/100 leukocytes 5 % 0-10 Automated blood basophils/100 leukocytes 0 % 0-10 Blood neutrophils automated count (number/volume) 3.8 10*3 1.8-7.8 Blood lymphocytes automated count (number/volume) 1.5 10*3 1.0-4.0 Blood monocytes automated count (number/volume) 0. 7 10*3 0.0-1.0 Automated eosinophil count 0.3 10*3/uL 0 .0-0.3 Automated blood basophil count (count/volume) 0.0 10*3/uL 0.0-0.1 Comprehensive metabolic panel - 06/26/19 05:45 Serum or plasma sodium measurement (moles/volume) 142 mmol/L 135-145 Serum or plasma potassium measurement (moles/volume) 3.5 mmol/L 3.6-5.0 Serum or plasma chloride measurement (moles/volume) 106 mmol/L 98-107 Carbon dioxide 25 mmol/L 21-32 Serum or plasma anion gap determination (moles/volume) 11 mmol/L 5-14 Serum or plasma urea nitrogen measurement (mass/volume ) 15 mg/dL 7-18 Serum or plasma creatinine measurement (mass/volume) 0.84 mg/dL 0.60-1.30 Serum or plasma urea nitrogen/creatinine mass ratio 18 NRG Serum or plasma creatinine measurement w ith calculation of estimated glomerular filtration rate > NRG Serum or plasma glucose measurement (mass/volume) 114 mg/dL 70-105 Serum or plasma calcium measurement (mass/volume) 8.7 mg/dL 8.5-10.1 Serum or plasma total bilirubin measurement (mass/volu me) 1.0 mg/dL 0.1-1.0 Serum or plasma alkaline phosphatase [place] surement (enzymatic activity/volume) 58 U/L 40-136 Serum or plasma aspartate aminotransfera se measurement (enzymatic activity/volume) 28 U/L 5-34 Serum or plasma alanine aminotransferase measurement (enzymatic activity/volume) 34 U/L 0-55 Serum or plasma protein measurement (mass/volume) 5.9 g/dL 6.4-8.2 Serum or plasma albumin measurement (mass/volume) 3.2 g/dL 3.2-4.5 CALCIUM CORRECTED 9.3 mg/dL 8.5-10.1 Capillary blood glucose measurement by g lucometer (mass/volume) - 06/26/19 10:57 Capillary blood glucose measurement by glucometer (mas s/volume) 207 mg/dL 70-110 Capillary blood glucose measurement by g lucometer (mass/volume) - 06/26/19 15:35 Capillary blood glucose measurement by glucometer (mas s/volume) 211 mg/dL 70-110 Capillary blood glucose measurement by g lucometer (mass/volume) - 06/26/19 20:27 Capillary blood glucose measurement by glucometer (mas s/volume) 216 mg/dL 70-110 Capillary blood glucose measurement by g lucometer (mass/volume) - 06/27/19 05:35 Capillary blood glucose measurement by glucometer (mas s/volume) 130 mg/dL 70-110 Capillary blood glucose measurement by g lucometer (mass/volume) - 06/27/19 11:55 Capillary blood glucose measurement by glucometer (mas s/volume) 187 mg/dL 70-110 Capillary blood glucose measurement by g lucometer (mass/volume) - 06/27/19 17:29 Capillary blood glucose measurement by glucometer (mas s/volume) 137 mg/dL 70-110 Capillary blood glucose measurement by g lucometer (mass/volume) - 06/27/19 22:03 Capillary blood glucose measurement by glucometer (mas s/volume) 213 mg/dL 70-110 Capillary blood glucose measurement by g lucometer (mass/volume) - 06/28/19 05:42 Capillary blood glucose measurement by glucometer (mas s/volume) 103 mg/dL 70-110 Capillary blood glucose measurement by g lucometer (mass/volume) - 06/28/19 09:21 Capillary blood glucose measurement by glucometer (mas s/volume) 197 mg/dL 70-110 Complete blood count (CBC) with automate d white blood cell (WBC) differential - 06/28/19 10:26 Blood leukocytes automated count (number/volume) 9.4 10*3/uL 4.3-11.0 Blood erythrocytes automated count (number/volume) 3.45 10*6/uL 4.35-5.85 Venous blood hemoglobin measurement (mass/volume) 11.0 g/dL 13.3-17.7 Blood hematocrit (volume fraction) 33 % 40-54 Automated erythrocyte mean corpuscular volume 95 [ foz_us] 80-99 Automated erythrocyte mean corpuscular h emoglobin (mass per erythrocyte) 32 pg 25-34 Automated erythrocyte mean corpuscular h emoglobin concentration measurement (mass/volume) 33 g/dL 32-36 Automated erythrocyte distribution width ratio 14. 3 % 10.0- 14.5 Automated blood platelet count (count/volume) 347 10*3/uL 130-400 Automated blood platelet mean volume measurement 8.3 [foz_us] 7.4-10.4 Automated blood neutrophils/100 leukocytes 69 % 42-75 Automated blood lymphocytes/100 leukocytes 17 % 12-44 Blood monocytes/100 leukocytes 10 % 0-12 Automated blood eosinophils/100 leukocytes 3 % 0-10 Automated blood basophils/100 leukocytes 0 % 0-10 Blood neutrophils automated count (number/volume) 6.5 10*3 1.8-7.8 Blood lymphocytes automated count (number/volume) 1.6 10*3 1.0-4.0 Blood monocytes automated count (number/volume) 1. 0 10*3 0.0-1.0 Automated eosinophil count 0.3 10*3/uL 0 .0-0.3 Automated blood basophil count (count/volume) 0.0 10*3/uL 0.0-0.1 Comprehensive metabolic panel - 06/28/19 10:26 Serum or plasma sodium measurement (moles/volume) 139 mmol/L 135-145 Serum or plasma potassium measurement (moles/volume) 3.9 mmol/L 3.6-5.0 Serum or plasma chloride measurement (moles/volume) 101 mmol/L 98-107 Carbon dioxide 22 mmol/L 21-32 Serum or plasma anion gap determination (moles/volume) 16 mmol/L 5-14 Serum or plasma urea nitrogen measurement (mass/volume ) 20 mg/dL 7-18 Serum or plasma creatinine measurement (mass/volume) 1.26 mg/dL 0.60-1.30 Serum or plasma urea nitrogen/creatinine mass ratio 16 NRG Serum or plasma creatinine measurement w ith calculation of estimated glomerular filtration rate 55 NRG Serum or plasma glucose measurement (mass/volume) 163 mg/dL 70-105 Serum or plasma calcium measurement (mass/volume) 9.9 mg/dL 8.5-10.1 Serum or plasma total bilirubin measurement (mass/volu me) 1.3 mg/dL 0.1-1.0 Serum or plasma alkaline phosphatase [place] surement (enzymatic activity/volume) 63 U/L 40-136 Serum or plasma aspartate aminotransfera se measurement (enzymatic activity/volume) 25 U/L 5-34 Serum or plasma alanine aminotransferase measurement (enzymatic activity/volume) 33 U/L 0-55 Serum or plasma protein measurement (mass/volume) 7.4 g/dL 6.4-8.2 Serum or plasma albumin measurement (mass/volume) 3.9 g/dL 3.2-4.5 CALCIUM CORRECTED 10.0 mg/dL 8.5-10.1 Serum or plasma lithium measurement (mol es/volume) - 06/28/19 10:26 BNP PT 421.4 pg/mL <100.0 IRON TEST - 06/28/19 10:26 Serum or plasma iron measurement (mass/volume) 72 % 40-180 Capillary blood glucose measurement by g lucometer (mass/volume) - 06/28/19 10:58 Capillary blood glucose measurement by glucometer (mas s/volume) 172 mg/dL 70-110 Capillary blood glucose measurement by g lucometer (mass/volume) - 06/28/19 15:34 Capillary blood glucose measurement by glucometer (mas s/volume) 154 mg/dL 70-110 Capillary blood glucose measurement by g lucometer (mass/volume) - 06/28/19 20:41 Capillary blood glucose measurement by glucometer (mas s/volume) 250 mg/dL 70-110 Capillary blood glucose measurement by g lucometer (mass/volume) - 06/29/19 02:15 Capillary blood glucose measurement by glucometer (mas s/volume) 67 mg/dL 70-110 Capillary blood glucose measurement by g lucometer (mass/volume) - 06/29/19 04:04 Capillary blood glucose measurement by glucometer (mas s/volume) 99 mg/dL 70-110 Automated blood complete blood count (he mogram) panel - 06/29/19 05:25 Blood leukocytes automated count (number/volume) 8.3 10*3/uL 4.3-11.0 Blood erythrocytes automated count (number/volume) 3.23 10*6/uL 4.35-5.85 Venous blood hemoglobin measurement (mass/volume) 10.2 g/dL 13.3-17.7 Blood hematocrit (volume fraction) 31 % 40-54 Automated erythrocyte mean corpuscular volume 94 [ foz_us] 80-99 Automated erythrocyte mean corpuscular h emoglobin (mass per erythrocyte) 32 pg 25-34 Automated erythrocyte mean corpuscular h emoglobin concentration measurement (mass/volume) 33 g/dL 32-36 Automated erythrocyte distribution width ratio 14. 3 % 10.0- 14.5 Automated blood platelet count (count/volume) 326 10*3/uL 130-400 Automated blood platelet mean volume measurement 8.2 [foz_us] 7.4-10.4 Comprehensive metabolic panel - 06/29/19 05:25 Serum or plasma sodium measurement (moles/volume) 141 mmol/L 135-145 Serum or plasma potassium measurement (moles/volume) 3.8 mmol/L 3.6-5.0 Serum or plasma chloride measurement (moles/volume) 104 mmol/L 98-107 Carbon dioxide 24 mmol/L 21-32 Serum or plasma anion gap determination (moles/volume) 13 mmol/L 5-14 Serum or plasma urea nitrogen measurement (mass/volume ) 23 mg/dL 7-18 Serum or plasma creatinine measurement (mass/volume) 1.04 mg/dL 0.60-1.30 Serum or plasma urea nitrogen/creatinine mass ratio 22 NRG Serum or plasma creatinine measurement w ith calculation of estimated glomerular filtration rate > NRG Serum or plasma glucose measurement (mass/volume) 102 mg/dL 70-105 Serum or plasma calcium measurement (mass/volume) 9.5 mg/dL 8.5-10.1 Serum or plasma total bilirubin measurement (mass/volu me) 1.1 mg/dL 0.1-1.0 Serum or plasma alkaline phosphatase [place] surement (enzymatic activity/volume) 74 U/L 40-136 Serum or plasma aspartate aminotransfera se measurement (enzymatic activity/volume) 30 U/L 5-34 Serum or plasma alanine aminotransferase measurement (enzymatic activity/volume) 33 U/L 0-55 Serum or plasma protein measurement (mass/volume) 7.1 g/dL 6.4-8.2 Serum or plasma albumin measurement (mass/volume) 3.6 g/dL 3.2-4.5 CALCIUM CORRECTED 9.8 mg/dL 8.5-10.1 Magnesium - 06/29/19 05:25 Magnesium 1.6 mg/dL 1.6-2.4 Capillary blood glucose measurement by g lucometer (mass/volume) - 06/29/19 07:18 Capillary blood glucose measurement by glucometer (mas s/volume) 178 mg/dL 70-110 Capillary blood glucose measurement by g lucometer (mass/volume) - 06/29/19 11:17 Capillary blood glucose measurement by glucometer (mas s/volume) 253 mg/dL 70-110 Capillary blood glucose measurement by g lucometer (mass/volume) - 06/29/19 15:41 Capillary blood glucose measurement by glucometer (mas s/volume) 270 mg/dL 70-110 Capillary blood glucose measurement by g lucometer (mass/volume) - 06/29/19 20:41 Capillary blood glucose measurement by glucometer (mas s/volume) 261 mg/dL 70-110 Capillary blood glucose measurement by g lucometer (mass/volume) - 06/30/19 05:14 Capillary blood glucose measurement by glucometer (mas s/volume) 168 mg/dL 70-110 Capillary blood glucose measurement by g lucometer (mass/volume) - 06/30/19 11:20 Capillary blood glucose measurement by glucometer (mas s/volume) 215 mg/dL 70-110 Capillary blood glucose measurement by g lucometer (mass/volume) - 06/30/19 15:42 Capillary blood glucose measurement by glucometer (mas s/volume) 114 mg/dL 70-110 Capillary blood glucose measurement by g lucometer (mass/volume) - 06/30/19 20:19 Capillary blood glucose measurement by glucometer (mas s/volume) 196 mg/dL 70-110 Capillary blood glucose measurement by g lucometer (mass/volume) - 07/01/19 05:29 Capillary blood glucose measurement by glucometer (mas s/volume) 115 mg/dL 70-110 Capillary blood glucose measurement by g lucometer (mass/volume) - 07/01/19 12:24 Capillary blood glucose measurement by glucometer (mas s/volume) 207 mg/dL 70-110 Capillary blood glucose measurement by g lucometer (mass/volume) - 07/01/19 15:34 Capillary blood glucose measurement by glucometer (mas s/volume) 190 mg/dL 70-110 Capillary blood glucose measurement by g lucometer (mass/volume) - 07/01/19 20:16 Capillary blood glucose measurement by glucometer (mas s/volume) 180 mg/dL 70-110 Capillary blood glucose measurement by g lucometer (mass/volume) - 07/02/19 05:26 Capillary blood glucose measurement by glucometer (mas s/volume) 162 mg/dL 70-110 Capillary blood glucose measurement by g lucometer (mass/volume) - 07/02/19 11:23 Capillary blood glucose measurement by glucometer (mas s/volume) 206 mg/dL 70-110 Capillary blood glucose measurement by g lucometer (mass/volume) - 07/02/19 15:38 Capillary blood glucose measurement by glucometer (mas s/volume) 237 mg/dL 70-110 Capillary blood glucose measurement by g lucometer (mass/volume) - 07/02/19 20:24 Capillary blood glucose measurement by glucometer (mas s/volume) 208 mg/dL 70-110 Capillary blood glucose measurement by g lucometer (mass/volume) - 07/03/19 05:29 Capillary blood glucose measurement by glucometer (mas s/volume) 167 mg/dL 70-110 Complete blood count (CBC) with automate d white blood cell (WBC) differential - 07/03/19 05:50 Blood leukocytes automated count (number/volume) 6.3 10*3/uL 4.3-11.0 Blood erythrocytes automated count (number/volume) 3.24 10*6/uL 4.35-5.85 Venous blood hemoglobin measurement (mass/volume) 10.2 g/dL 13.3-17.7 Blood hematocrit (volume fraction) 31 % 40-54 Automated erythrocyte mean corpuscular volume 94 [ foz_us] 80-99 Automated erythrocyte mean corpuscular h emoglobin (mass per erythrocyte) 31 pg 25-34 Automated erythrocyte mean corpuscular h emoglobin concentration measurement (mass/volume) 33 g/dL 32-36 Automated erythrocyte distribution width ratio 14. 3 % 10.0- 14.5 Automated blood platelet count (count/volume) 295 10*3/uL 130-400 Automated blood platelet mean volume measurement 8.4 [foz_us] 7.4-10.4 Automated blood neutrophils/100 leukocytes 59 % 42-75 Automated blood lymphocytes/100 leukocytes 25 % 12-44 Blood monocytes/100 leukocytes 12 % 0-12 Automated blood eosinophils/100 leukocytes 4 % 0-10 Automated blood basophils/100 leukocytes 0 % 0-10 Blood neutrophils automated count (number/volume) 3.7 10*3 1.8-7.8 Blood lymphocytes automated count (number/volume) 1.6 10*3 1.0-4.0 Blood monocytes automated count (number/volume) 0. 8 10*3 0.0-1.0 Automated eosinophil count 0.2 10*3/uL 0 .0-0.3 Automated blood basophil count (count/volume) 0.0 10*3/uL 0.0-0.1 Comprehensive metabolic panel - 07/03/19 05:50 Serum or plasma sodium measurement (moles/volume) 140 mmol/L 135-145 Serum or plasma potassium measurement (moles/volume) 4.2 mmol/L 3.6-5.0 Serum or plasma chloride measurement (moles/volume) 105 mmol/L 98-107 Carbon dioxide 23 mmol/L 21-32 Serum or plasma anion gap determination (moles/volume) 12 mmol/L 5-14 Serum or plasma urea nitrogen measurement (mass/volume ) 19 mg/dL 7-18 Serum or plasma creatinine measurement (mass/volume) 1.06 mg/dL 0.60-1.30 Serum or plasma urea nitrogen/creatinine mass ratio 18 NRG Serum or plasma creatinine measurement w ith calculation of estimated glomerular filtration rate > NRG Serum or plasma glucose measurement (mass/volume) 155 mg/dL 70-105 Serum or plasma calcium measurement (mass/volume) 9.5 mg/dL 8.5-10.1 Serum or plasma total bilirubin measurement (mass/volu me) 0.9 mg/dL 0.1-1.0 Serum or plasma alkaline phosphatase [place] surement (enzymatic activity/volume) 93 U/L 40-136 Serum or plasma aspartate aminotransfera se measurement (enzymatic activity/volume) 16 U/L 5-34 Serum or plasma alanine aminotransferase measurement (enzymatic activity/volume) 18 U/L 0-55 Serum or plasma protein measurement (mass/volume) 6.8 g/dL 6.4-8.2 Serum or plasma albumin measurement (mass/volume) 3.7 g/dL 3.2-4.5 CALCIUM CORRECTED 9.7 mg/dL 8.5-10.1 Capillary blood glucose measurement by g lucometer (mass/volume) - 07/03/19 11:10 Capillary blood glucose measurement by glucometer (mas s/volume) 282 mg/dL 70-110 Capillary blood glucose measurement by g lucometer (mass/volume) - 07/03/19 15:35 Capillary blood glucose measurement by glucometer (mas s/volume) 215 mg/dL 70-110 Capillary blood glucose measurement by g lucometer (mass/volume) - 07/03/19 20:22 Capillary blood glucose measurement by glucometer (mas s/volume) 191 mg/dL 70-110 Capillary blood glucose measurement by g lucometer (mass/volume) - 07/04/19 05:31 Capillary blood glucose measurement by glucometer (mas s/volume) 189 mg/dL 70-110 Capillary blood glucose measurement by g lucometer (mass/volume) - 07/04/19 10:54 Capillary blood glucose measurement by glucometer (mas s/volume) 167 mg/dL 70-110 Capillary blood glucose measurement by g lucometer (mass/volume) - 07/04/19 15:33 Capillary blood glucose measurement by glucometer (mas s/volume) 207 mg/dL 70-110 Capillary blood glucose measurement by g lucometer (mass/volume) - 07/04/19 20:49 Capillary blood glucose measurement by glucometer (mas s/volume) 211 mg/dL 70-110 Capillary blood glucose measurement by g lucometer (mass/volume) - 07/05/19 05:08 Capillary blood glucose measurement by glucometer (mas s/volume) 157 mg/dL 70-110 Capillary blood glucose measurement by g lucometer (mass/volume) - 07/05/19 10:56 Capillary blood glucose measurement by glucometer (mas s/volume) 221 mg/dL 70-110 Comprehensive metabolic panel - 09/15/19 08:40 Serum or plasma sodium measurement (moles/volume) 137 mmol/L 135-145 Serum or plasma potassium measurement (moles/volume) 4.1 mmol/L 3.6-5.0 Serum or plasma chloride measurement (moles/volume) 103 mmol/L 98-107 Carbon dioxide 22 mmol/L 21-32 Serum or plasma anion gap determination (moles/volume) 12 mmol/L 5-14 Serum or plasma urea nitrogen measurement (mass/volume ) 19 mg/dL 7-18 Serum or plasma creatinine measurement (mass/volume) 1.09 mg/dL 0.60-1.30 Serum or plasma urea nitrogen/creatinine mass ratio 17 NRG Serum or plasma creatinine measurement w ith calculation of estimated glomerular filtration rate > NRG Serum or plasma glucose measurement (mass/volume) 196 mg/dL 70-105 Serum or plasma calcium measurement (mass/volume) 8.2 mg/dL 8.5-10.1 Serum or plasma total bilirubin measurement (mass/volu me) 0.6 mg/dL 0.1-1.0 Serum or plasma alkaline phosphatase [place] surement (enzymatic activity/volume) 114 U/L 40-136 Serum or plasma aspartate aminotransfera se measurement (enzymatic activity/volume) 16 U/L 5-34 Serum or plasma alanine aminotransferase measurement (enzymatic activity/volume) 14 U/L 0-55 Serum or plasma protein measurement (mass/volume) 6.9 g/dL 6.4-8.2 Serum or plasma albumin measurement (mass/volume) 3.9 g/dL 3.2-4.5 CALCIUM CORRECTED 8.3 mg/dL 8.5-10.1 Serum Mycoplasma pneumoniae antibody det ection - 09/15/19 08:40 [id number] See Below See Below Pleural fluid Mycoplasma pneumoniae IgG antibody titer by immunofluorescence <1:16 Mycoplasma IgM antibody assay <1:10 <1:10 Influenza virus A and B antigen detectio n - 09/15/19 08:45 FLU RESULT NEGATIVE FOR INFLUENZA A AND B ANTIGENS BY IA NRG Complete blood count (CBC) with automate d white blood cell (WBC) differential - 03/25/20 15:10 Blood leukocytes automated count (number/volume) 5.9 10*3/uL 4.3-11.0 Blood erythrocytes automated count (number/volume) 3.63 10*6/uL 4.35-5.85 Venous blood hemoglobin measurement (mass/volume) 11.7 g/dL 13.3-17.7 Blood hematocrit (volume fraction) 33 % 40-54 Automated erythrocyte mean corpuscular volume 91 [ foz_us] 80-99 Automated erythrocyte mean corpuscular h emoglobin (mass per erythrocyte) 32 pg 25-34 Automated erythrocyte mean corpuscular h emoglobin concentration measurement (mass/volume) 36 g/dL 32-36 Automated erythrocyte distribution width ratio 13. 3 % 10.0- 14.5 Automated blood platelet count (count/volume) 152 10*3/uL 130-400 Automated blood platelet mean volume measurement 8.9 [foz_us] 7.4-10.4 Automated blood neutrophils/100 leukocytes 56 % 42-75 Automated blood lymphocytes/100 leukocytes 32 % 12-44 Blood monocytes/100 leukocytes 10 % 0-12 Automated blood eosinophils/100 leukocytes 2 % 0-10 Automated blood basophils/100 leukocytes 0 % 0-10 Blood neutrophils automated count (number/volume) 3.3 10*3 1.8-7.8 Blood lymphocytes automated count (number/volume) 1.9 10*3 1.0-4.0 Blood monocytes automated count (number/volume) 0. 6 10*3 0.0-1.0 Automated eosinophil count 0.1 10*3/uL 0 .0-0.3 Automated blood basophil count (count/volume) 0.0 10*3/uL 0.0-0.1 Comprehensive metabolic panel - 03/25/20 15:10 Serum or plasma sodium measurement (moles/volume) 139 mmol/L 135-145 Serum or plasma potassium measurement (moles/volume) 4.1 mmol/L 3.6-5.0 Serum or plasma chloride measurement (moles/volume) 105 mmol/L 98-107 Carbon dioxide 22 mmol/L 21-32 Serum or plasma anion gap determination (moles/volume) 12 mmol/L 5-14 Serum or plasma urea nitrogen measurement (mass/volume ) 26 mg/dL 7-18 Serum or plasma creatinine measurement (mass/volume) 1.34 mg/dL 0.60-1.30 Serum or plasma urea nitrogen/creatinine mass ratio 19 NRG Serum or plasma creatinine measurement w ith calculation of estimated glomerular filtration rate 51 NRG Serum or plasma glucose measurement (mass/volume) 290 mg/dL 70-105 Serum or plasma calcium measurement (mass/volume) 9.0 mg/dL 8.5-10.1 Serum or plasma total bilirubin measurement (mass/volu me) 0.8 mg/dL 0.1-1.0 Serum or plasma alkaline phosphatase [place] surement (enzymatic activity/volume) 96 U/L 40-136 Serum or plasma aspartate aminotransfera se measurement (enzymatic activity/volume) 17 U/L 5-34 Serum or plasma alanine aminotransferase measurement (enzymatic activity/volume) 16 U/L 0-55 Serum or plasma protein measurement (mass/volume) 7.0 g/dL 6.4-8.2 Serum or plasma albumin measurement (mass/volume) 4.1 g/dL 3.2-4.5 CALCIUM CORRECTED 8.9 mg/dL 8.5-10.1 THYROID STIMULATING HORMONE - 03/25/20 1 5:10 THYROID STIMULATING HORMONE 1.52 u[iU]/mL 0.35-4.94 Hemoglobin A1c measurement - 03/25/20 15 :10 Blood hemoglobin A1C measurement (mass/volume) 9.0 % 4.0-5.6 MEAN BLOOD GLUCOSE 212 % <=126 Automated blood complete blood count (he mogram) panel - 03/27/20 12:35 Blood leukocytes automated count (number/volume) 5.0 10*3/uL 4.3-11.0 Blood erythrocytes automated count (number/volume) 3.70 10*6/uL 4.35-5.85 Venous blood hemoglobin measurement (mass/volume) 11.9 g/dL 13.3-17.7 Blood hematocrit (volume fraction) 34 % 40-54 Automated erythrocyte mean corpuscular volume 91 [ foz_us] 80-99 Automated erythrocyte mean corpuscular h emoglobin (mass per erythrocyte) 32 pg 25-34 Automated erythrocyte mean corpuscular h emoglobin concentration measurement (mass/volume) 35 g/dL 32-36 Automated erythrocyte distribution width ratio 13. 4 % 10.0- 14.5 Automated blood platelet count (count/volume) 151 10*3/uL 130-400 Automated blood platelet mean volume measurement 8.7 [foz_us] 7.4-10.4 Encounters ACCT No. Visit Date/Time Discharge Status Pt. Type Provider Facility Loc./Unit Complaint [id number] 11/21/2018 09:59:00 Document Registration [id number] 03/29/2018 09:00:10 8 23:59:59 DIS Outpatient Queta Olivier [facility] [id number] 03/18/2020 13:56:00 020 23:59:59 CLS Outpatient JORGE CARDENAS [facility] ONC [id number] 01/01/2020 06:09:00 00:01:00 DIS Outpatient ARENAS DO, ADALBERTO [address] [place] [address] CARDIAC REHAB PHASE 3 [id number] 12/25/2019 13:49:00 23:59:59 CLS Outpatient JORGE CARDENAS Fernandez James ia [facility] ONC [id number] 12/06/2019 06:26:00 00:01:00 DIS Outpatient ARENAS DO, ADALBERTO [address] [place] [address] CARDIAC REHAB PHASE 3 [id number] 11/03/2019 06:14:00 00:01:00 DIS Outpatient ARENAS DO, ADALBERTO [address] [place] [address] CARDIAC REHAB PHASE 3 [id number] 10/04/2019 09:42:00 00:01:00 DIS Outpatient ARENAS DO, ADALBERTO Via [facility] REHAB S/P L HIP FX [id number] 09/15/2019 08:34:00 23:59:59 CLS Outpatient ARENAS DO, ADALBERTO Via [facility] LAB INFLUENZA SWAB [id number] 08/29/2019 14:37:00 00:01:00 DIS Outpatient THERESA JORGE Ramirez surya [facility] ONC [id number] 08/29/2019 13:37:00 23:59:59 CLS Outpatient DAX YOUNG MD Via [facility] ORTHO [id number] 08/01/2019 13:50:00 23:59:59 CLS Outpatient DAX YOUNG MD Via [facility] ORTHO [id number] 07/19/2019 09:27:00 23:59:59 CLS Outpatient ARENAS DO, ADALBERTO Via [facility] LAB [id number] 07/10/2019 11:06:00 23:59:59 CLS Outpatient DAX YOUNG MD Via [facility] ORTHO [id number] 06/23/2019 09:22:00 11:30:00 DIS Inpatient ARENAS DO, ADALBERTO V ia [facility] IRF L HIP FX [id number] 06/18/2019 16:50:00 09:00:00 DIS Inpatient CHRISTOPHER TANG MD Via [facility] ICU FALL L FEMUR FX [id number] 06/16/2019 06:37:00 00:01:00 DIS Outpatient ARENAS DO, ADALBERTO [address] [place] [address] CARDIAC REHAB PHASE 3 [id number] 06/16/2019 08:38:00 23:59:59 CLS Outpatient ARENAS DO, ADALBERTO Via [facility] LAB [id number] 04/26/2019 09:54:00 00:01:00 DIS Outpatient JORGE CARDENAS [facility] ONC [id number] 05/17/2019 06:29:00 00:01:00 DIS Outpatient ARENAS DO, ADALBERTO [address] [place] [address] CARDIAC REHAB PHASE 3 [id number] 04/12/2019 06:25:00 00:01:00 DIS Outpatient ARENAS DO, ADALBERTO [address] [place] [address] CARDIAC REHAB PHASE 3 [id number] 04/07/2019 07:03:00 23:59:59 CLS Outpatient ARENAS DO, ADALBERTO Via [facility] LAB E78.00,E78.1 [id number] 03/15/2019 06:25:00 00:01:00 DIS Outpatient ARENAS DO, ADALBERTO [address] [place] [address] CARDIAC REHAB PHASE 3 [id number] 01/31/2019 12:20:00 00:01:00 DIS Outpatient JORGE CARDENAS [facility] ONC [id number] 02/24/2019 07:20:00 11:22:00 DIS Inpatient ARENAS DO, ADALBERTO V ia [facility] 4TH DEHYDRATION [id number] 02/10/2019 06:23:00 00:01:00 DIS Outpatient ARENAS DO, ADALBERTO [address] [place] [address] CARDIAC REHAB PHASE 3 [id number] 01/30/2019 09:30:00 23:59:59 CLS Preadmit ARENAS DO, ADALBERTO Vi a [facility] PULM ACUTE BRONCHITIS,CHRONI C OBSTRUCTIVE PULM DISEASE [id number] 10/31/2018 09:15:00 00:01:00 DIS Outpatient ARENAS DO, ADALBERTO Via [facility] PUL ACUTE BRONCHITIS,CHRONI C OBSTRUCTIVE PULM DISEASE [id number] 01/11/2019 06:49:00 00:01:00 DIS Outpatient ARENAS DO, ADALBERTO [address] [place] [address] CARDIAC REHAB PHASE 3 [id number] 12/09/2018 06:23:00 00:01:00 DIS Outpatient ARENAS DO, ADALBERTO [address] [place] [address] CARDIAC REHAB PHASE 3 [id number] 11/29/2018 09:33:00 23:59:59 CLS Outpatient ARENAS DO, ADALBERTO Via [facility] LAB [id number] 11/04/2018 06:27:00 00:01:00 DIS Outpatient ARENAS DO, ADALBERTO [address] [place] [address] CARDIAC REHAB PHASE 3 [id number] 11/01/2018 14:56:00 00:01:00 DIS Outpatient JORGE CARDENAS V ia [facility] ONC [id number] 10/26/2018 14:11:00 23:59:59 CLS Outpatient ARENAS DO, ADALBERTO Via [facility] RAD COUGH [id number] 10/26/2018 10:02:00 23:59:59 CLS Preadmit ARENAS DO, ADALBERTO Vi a [facility] LAB [id number] 10/16/2018 21:26:00 019 14:00:00 DIS Inpatient ARENAS DO, ADALBERTO V ia [facility] 4TH DEHYDRATION [id number] 10/05/2018 06:25:00 018 00:01:00 DIS Outpatient ARENAS DO, ADALBERTO Via [facility] CARDIAC REHAB PHASE 3 [id number] 09/02/2018 06:24:00 018 00:01:00 DIS Outpatient ARENAS DO, ADALBERTO [address] [place] [address] CARDIAC REHAB PHASE 3 [id number] 08/22/2018 08:56:00 23:59:59 CLS Outpatient CLYDE JEAN, CHRISTOPHER Buchanan Via [facility] CARD CAD, CAROTID ARTERY HENRY NOSIS,HTN, HYPERLIPIDEMA [id number] 07/29/2018 07:32:00 018 00:01:00 DIS Outpatient ARENAS DO, ADALBERTO [address] [place] [address] CARDIAC REHAB PHASE 3 [id number] 07/08/2018 11:25:00 018 00:01:00 DIS Outpatient LYNNE JEAN, CLEMENCIA [facility] ONC [id number] 06/14/2018 10:06:00 018 16:19:00 DIS Outpatient JORGE CARDENAS [facility] ONC [id number] 06/22/2018 06:42:00 018 00:01:00 DIS Outpatient ARENAS DO, ADALBERTO [address] [place] [address] CARDIAC REHAB PHASE 3 [id number] 05/17/2018 08:44:00 018 23:59:59 CLS Outpatient JORGE CARDENAS [facility] ONC [id number] 05/17/2018 08:39:00 018 23:59:59 CLS Outpatient ARENAS DO, ADALBERTO Via [facility] LAB [id number] 05/16/2018 06:13:00 018 23:59:59 CLS Outpatient ARENAS DO, ADALBERTO [address] [place] [address] CARDIAC REHAB PHASE 3 [id number] 04/15/2018 06:10:00 018 00:01:00 DIS Outpatient ARENAS DO, ADALBERTO [address] [place] [address] CARDIAC REHAB PHASE 3 [id number] 03/18/2018 06:12:00 018 00:01:00 DIS Outpatient ARENAS DO, ADALBERTO [address] [place] [address] CARDIAC REHAB PHASE 3 [id number] 02/16/2018 06:16:00 018 00:01:00 DIS Outpatient ARENAS DO, ADALBERTO [address] [place] [address] CARDIAC REHAB PHASE 3 [id number] 01/04/2018 14:54:00 018 00:01:00 DIS Outpatient CLEMENCIA BATISTA MD, [facility] ONC [id number] 11/08/2017 14:29:00 018 23:59:59 CLS Outpatient NISSA CASTAÑEDA MD Via [facility] WOUNDCARE [id number] 09/14/2017 14:12:00 018 11:44:00 DIS Outpatient JORGE CARDENAS [facility] ONC [id number] 11/02/2017 13:00:00 018 23:59:59 CLS Outpatient NISSA CSATAÑEDA MD Via [facility] WOUNDCARE [id number] 10/28/2017 11:32:00 018 23:59:59 CLS Outpatient ARENAS DO, ADALBERTO Via [facility] RAD M79.672 [id number] 07/30/2017 10:39:00 017 23:59:59 CLS Outpatient CHRISTOPHER TANG MD Via [facility] CARD CAD I25.10 [id number] 07/08/2017 14:28:00 017 00:01:00 DIS Outpatient JORGE CARDENAS [facility] ONC [id number] 05/21/2017 12:40:00 017 17:15:00 DIS Inpatient ARENAS DO, ADALBERTO [facility] 4TH SCIATICA [id number] 04/08/2017 14:56:00 017 00:01:00 DIS Outpatient JORGE CARDENAS [facility] ONC [id number] 04/16/2017 12:37:00 017 13:50:00 DIS Inpatient ARENAS DO ADALBERTO [facility] 4TH DEHYDRATION [id number] 01/14/2017 14:14:00 017 00:01:00 DIS Outpatient JORGE CARDENAS [facility] ONC [id number] 12/07/2016 13:30:00 017 11:41:00 DIS Inpatient ARENAS DO, ADALBERTO [facility] 4TH SHORTNESS OF BREATH [id number] 12/03/2016 11:11:00 017 08:55:00 DIS Inpatient ARENAS DO ADALBERTO [facility] ICU WHEEZING [id number] 10/14/2016 10:30:00 017 00:01:00 DIS Outpatient JORGE CARDENAS [facility] ONC [id number] 09/16/2016 07:59:00 016 14:50:00 DIS Outpatient CLYDE JEAN, CHRISTOPHER Buchanan [facility] CATH ABN STRESS TEST,CP,CAD, HTN,HLP [id number] 09/15/2016 12:35:00 016 07:53:00 DIS Inpatient ARENAS DO, ADALBERTO [facility] 4TH DEHYDRATION [id number] 08/28/2016 09:45:00 016 10:45:00 DIS Outpatient ARENASLAYLA AMOR ADALBERTO Via [facility] LAB [id number] 08/28/2016 10:35:00 016 07:30:00 DIS Inpatient ARENAS DO, ADALBERTO [facility] ICU [place] [id number] 07/15/2016 10:21:00 016 10:28:00 DIS Outpatient JORGE CARDENAS V ia [facility] ONC [id number] 07/14/2016 12:34:00 016 23:59:59 CLS Outpatient JULIA FISCHER Via [facility] CARD CAD,CAROTID ARTERY STENOSIS,HN,HLP [id number] 07/13/2016 08:18:00 016 23:59:59 CLS Outpatient JULIA FISCHER Via [facility] CARD CAD,CAROITD ARTERY STENOSIS,HTN,HLP [id number] 06/03/2016 14:56:00 016 23:59:59 CLS Outpatient KAYLEEN LUCAS Via [facility] ONC [id number] 05/20/2016 08:57:00 016 23:59:59 CLS Outpatient JULIA FISCHER Via [facility] LAB [id number] 04/16/2016 09:54:00 016 00:01:00 DIS Outpatient JORGE CARDENAS [facility] ONC [id number] 04/09/2016 09:06:00 016 23:59:59 CLS Outpatient KAYLEEN LUCAS Via [facility] ONC [id number] 02/13/2016 14:14:00 016 23:59:59 CLS Outpatient KAYLEEN LUCAS 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 LEVELER MACHINE Via [facility] ONC [id number] 01/16/2016 12:43:00 016 00:01:00 DIS Outpatient JORGE CARDENAS [facility] ONC [id number] 12/22/2015 15:14:00 016 10:35:00 DIS Inpatient ADALBERTO ARENAS DO, [facility] 4TH VOMITING,DEHYDRATION [id number] 11/18/2015 12:53:00 016 23:59:59 CLS Outpatient CLYDE JEAN, CHRISTOPHER Buchanan [facility] CARD CAD,MARY,HTN,HLP [id number] 10/23/2015 13:33:00 23:59:59 CLS Outpatient ARENAS DO, ADALBERTO Via [facility] RAD AORTIC ANEURYSM [id number] 10/16/2015 08:44:00 00:01:00 DIS Outpatient JORGE CARDENAS Fernandez Ramirez ia [facility] ONC [id number] 08/28/2015 08:54:00 23:59:59 CLS Outpatient KAYLEEN LUCASP Via [facility] ONC [id number] 08/23/2015 08:53:00 12:00:00 DIS Outpatient NISSA CASTAÑEDA MD Via [facility] WOUNDCARE [id number] 08/21/2015 14:30:00 23:59:59 CLS Outpatient ARENAS DO, ADALBERTO Via [facility] LAB [id number] 08/16/2015 10:45:00 23:59:59 CLS Outpatient ARENAS DO, ADALBERTO Via [facility] LAB UTI [id number] 08/14/2015 10:45:00 23:59:59 CLS Outpatient ARENAS DO, ADALBERTO Via [facility] LAB [id number] 08/13/2015 13:43:00 23:59:59 CLS Outpatient CLYDE JEAN, CHRISTOPHER Buchanan [facility] CARD A-FLUTTER,HTN, [id number] 08/09/2015 09:58:00 23:59:59 CLS Outpatient ARENAS DO, ADALBERTO Via [facility] LAB DIARRHEA [id number] 07/31/2015 09:08:00 23:59:59 CLS Outpatient KAYLEEN LUCASP Via [facility] ONC [id number] 07/26/2015 06:54:00 10:18:00 DIS Outpatient AILEEN MORAN MD Via [facility] SDC LEUKEMIA [id number] 07/24/2015 10:01:00 10/07/2 015 23:59:59 CLS Outpatient ARENAS DO ADALBERTO Via [facility] LAB 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 [id number] 07/22/2015 10:05:00 23:59:59 CLS Outpatient AILEEN MORAN MD Via [facility] PREOP LEUKEMIA [id number] 07/17/2015 09:31:00 015 00:01:00 DIS Outpatient JORGE CARDENAS Fernandez V ia [facility] ONC [id number] 07/12/2015 00:09:00 23:59:59 CLS Preadmit ADALBERTO ARENAS DO Vi a [facility] RAD DIABETES,COUGH,HTN,CAD,ANEMIA,HYPERLIPADEMA [id number] 04/12/2015 11:35:00 015 00:01:00 DIS Outpatient DAGOBERTO AMOR ADALBERTO Via [facility] RAD DIABETES,COUGH,HTN,CAD,ANEMIA,HYPERLIPADEMA [id number] 06/17/2015 12:05:00 015 17:30:00 DIS Inpatient ROBERT PINEDA MD Via [facility] IRF DEBILITY [id number] 06/16/2015 13:28:00 015 10:55:00 DIS Inpatient ADALBERTO ARENAS DO, [facility] 4TH WEAKNESS;ANEMIA [id number] 06/11/2015 11:25:00 015 16:45:00 DIS Inpatient ROBERT PINEDA MD Via [facility] IRF WEAKNESS [id number] 06/06/2015 17:03:00 015 11:25:00 DIS Inpatient ADALBERTO ARENAS DO V [facility] 4TH SWB-SEVERE ANEMIA,WEAKN ESS,S/P SEPSIS,DM,CAD [id number] 05/08/2015 10:16:00 015 23:59:59 CLS Outpatient DAGOBERTO AMOR ADALBERTO Via [facility] LAB DM,HTN,HLP [id number] 05/01/2015 23:04:00 015 16:20:00 DIS Inpatient ADALBERTO ARENAS DO [facility] CSD SEVERE ANEMIA,INTRACTAB LE ABD PAIN [id number] 04/29/2015 10:35:00 015 23:59:59 CLS Outpatient ADALBERTO ARENAS DO Via [facility] LAB COUGH,DM,HTN,HLP,ANEMIA [id number] 04/24/2015 07:18:00 015 12:40:00 DIS Outpatient AILEEN MORAN MD Via [facility] SDC UMBILICAL HERNIA [id number] 04/23/2015 11:45:00 23:59:59 CLS Outpatient ADALBERTO ARENAS DO Via [facility] LAB DMII,HTN,HLPL,CAD [id number] 04/22/2015 05:55:00 23:59:59 CLS Outpatient AILEEN MORAN MD [facility] PREOP UMBILICAL HERNIA [id number] 04/18/2015 10:36:00 015 12:22:00 DIS Inpatient AILEEN MORAN MD Via [facility] CSD GERD [id number] 04/18/2015 10:01:00 015 23:59:59 CLS Preadmit ADALBERTO ARENAS DO GI BLEED [id number] 04/17/2015 06:05:00 23:59:59 CLS Outpatient AILEEN MORAN MD Via [facility] PREOP GERD [id number] 04/08/2015 09:30:00 015 11:40:00 DIS Inpatient ADALBERTO ARENAS DO [facility] CSD CHEST PAIN [id number] 04/07/2015 10:32:00 015 23:59:59 CLS Outpatient ADALBERTO ARENAS DO Via [facility] LAB ACUTE ABDOMINAL PAIN,FL ANK PAIN [id number] 01/14/2015 12:58:00 015 00:01:00 DIS Outpatient JORGE CARDENAS [facility] ONC [id number] 01/22/2015 13:07:00 23:59:59 CLS Outpatient ARENAS DO ADALBERTO Via [facility] RAD COUGH [id number] 11/07/2014 06:55:00 13:35:00 DIS Outpatient CHRISTOPHER TANG MD Via [facility] CATH ABNORMAL STRESS, CAD, CP,HLP,HTN,LVH [id number] 11/06/2014 06:33:00 23:59:59 CLS Outpatient CHRISTOPHER TANG MD Via [facility] CARD CP,CAD,HTN,HLP [id number] 11/01/2014 08:00:00 23:59:59 CLS Preadmit ELLE CORMIER DO Via [facility] PULM COPD [id number] 08/02/2014 08:00:00 00:01:00 DIS Outpatient ELLE CORMIER DO Via [facility] PULM COPD [id number] 08/31/2014 15:59:00 23:59:59 CLS Outpatient ELLE CORMIER DO Via [facility] RT COPD [id number] 07/26/2014 07:27:00 014 23:59:59 CLS Outpatient ELLE CORMIER DO Via [facility] RAD SOB [id number] 07/26/2014 07:24:00 014 23:59:59 CLS Outpatient DAGOBERTO DO ADALBERTO Via [facility] RAD ABD PAIN [id number] 07/25/2014 07:01:00 23:59:59 CLS Outpatient ARENAS DO ADALBERTO Via [facility] LAB DM II,HTN,HLP,CAD,ANEMI A [id number] 06/01/2014 13:51:00 23:59:59 CLS Outpatient ARENAS DO ADALBERTO Via [facility] LAB SOB,CP,MED MONITORING,D M,ANEMIA [id number] 05/03/2014 00:00:00 014 11:15:00 DIS Inpatient LUCY JEAN, Murphy ROOT Via [facility] CSD NON STEMI,EPIGASTRIC PAIN,HTN,HYPOMAGNESIMIA [id number] 01/08/2014 10:59:00 014 00:01:00 DIS Outpatient JORGE CARDENAS V ia [facility] ONC [id number] 11/23/2013 07:52:00 014 10:55:00 DIS Outpatient AILEEN MORAN MD Via [facility] HISTORY OF [place]PS[place] [id number] 11/22/2013 07:30:00 23:59:59 CLS Outpatient AILEEN MORAN MD Via [facility] PREOP HISTORY OF POLYPS;[facility] [place] [id number] 10/16/2013 09:45:00 013 23:59:59 CLS Outpatient JORGE CARDENAS V ia [facility] ONC [id number] 08/08/2013 13:31:00 013 23:59:59 CLS Outpatient ADALBERTO ARENAS DO [facility] RAD WHEEZING [id number] 07/10/2013 14:54:00 23:59:59 CLS Outpatient KAYLEEN LUCAS SOLE LEVELER MACHINE [facility] ONC [id number] 07/06/2013 10:32:00 23:59:59 CLS Outpatient JORGE CARDENAS [facility] ONC [id number] 03/27/2020 11:48:[address] Outpatient CLYDE JEAN, CHRISTOPHER Buchanan [facility] CATH ABN ROSA [id number] 03/25/2020 14:54:[address] Outpatient ADALBERTO ARENAS DO [facility] [place] LAB E11.65,I10 [id number] 10/05/2019 00:00:00 Document Registration [id number] 12/10/2014 14:01:00 Document Registration [id number] 07/07/2012 12:59:00 Document Registration [id number] 12/31/2011 13:57:00 Document Registration [id number] 07/06/2011 12:56:00 Document Registration [id number] 06/08/2011 07:18:00 Document Registration [id number] 03/25/2011 08:24:00 Document Registration [id number] 10/06/2010 07:42:00 Document Registration [id number] 10/03/2010 08:37:00 Document Registration [id number] 07/07/2010 13:26:00 Document Registration [id number] 06/11/2010 06:33:00 Document Registration [id number] 05/14/2010 10:25:00 Document Registration [id number] 01/02/2010 14:42:00 Document Registration [id number] 06/26/2014 15:09:36 06/26/2014 23:59: 59 Darius Mcgrath
[2020-03-27 13:07] LABS: ALBUMIN 4.1 GM/DL (3.2-4.5); BILIRUBIN,TOTAL 0.7 MG/DL (0.1-1.0); CALCIUM 9.1 MG/DL (8.5-10.1); CREATININE SERUM 1.18 MG/DL (0.60-1.30); POTASSIUM 4.3 MMOL/L (3.6-5.0); TOTAL PROTEIN 7.1 GM/DL (6.4-8.2)
[2020-03-27] MEDS ORDERED: NITR0.4T39 SL (13:35)
[2020-03-27] MEDS ORDERED: CEFD300C3 PO (13:35)
[2020-03-27] MEDS ORDERED: PAMI30VI8 SQ (13:35)
[2020-03-27] MEDS ORDERED: TERB250T16 PO (13:35)
[2020-03-27] MEDS ORDERED: METR-145 PO (13:35)
[2020-03-27] MEDS ORDERED: IPRA0.2S51 IH (13:35)
[2020-03-27] MEDS ORDERED: fentaNYL INJECTION 100 MCG/2 ML AMP ONE (13:42)
[2020-03-27] MEDS ORDERED: MIDAZOLAM 5 MG/5 ML (VERSED) VIAL ONE (13:43)
--- NOTE | 2020-03-27 13:43 | Cardiac Procedure Note-CS/ASA ---
Pre-Procedure Note Pre-Op Procedure Note H&P Reviewed The H&P was reviewed, patient examined and no changes noted. Date H&P Reviewed: Mar 27, 2020 Time H&P Reviewed: 13:43 Conscious Sedation Pre-Proced Time 13:43 ASA Score 3 For ASA 3 and 4: Consider anesthesia and medical clearance. Also, for patients with a history of failed moderate sedation consider anesthesia. Airway Lungs Heart ASA score ASA 1: a normal healthy patient ASA 2: a patient with a mild systemic disease (mid diabetes, controlled hypertension, obesity x ASA 3: a patient with a severe systemic disease that limits activity (angina, COPD, prior Myocardial infarction) ASA 4: a patient with an incapacitating disease that is a constant threat to life (CHF, renal failure) ASA 5: a moribund patient not expected to survive 24 hrs. (ruptured aneurysm) ASA 6: a declared brain- patient whose organs are being harvested. For emergent operations, add the letter E after the classification Mallampati Classification Grade 3 Sedation Plan Analgesia, Amnesia, Plan communicated to team members, Discussed options with patient/fam, Discussed risks with patient/fam The patient is an appropriate candidate to undergo the planned procedure, sedation, and anesthesia. The patient immediately re-assessed prior to indication. CHRISTOPHER TANG MD Mar 27, 2020 13:43
[2020-03-27] MEDS ORDERED: NITRO DRIP 25000 MCG/D5W 250 ML IV ONE (14:26)
[2020-03-27] MEDS ORDERED: HEParin 1000 UNIT/ML (10ML VIAL) FOR BOLUS ONE (14:31)
[2020-03-27] MEDS ORDERED: MIDAZOLAM 2 MG/2 ML (VERSED) VIAL ONE (15:05)
[2020-03-27] MEDS ORDERED: PATIENT MAY USE OWN MEDS, ALL PO SCH (15:30)
--- NOTE | 2020-03-27 15:34 | Peripheral Report ---
Peripheral Report Physician (s)/Mammalogy Teacher (s) Physician CHRISTOPHER TANG MD Pre-Procedure Diagnosis Pre-Procedure Diagnosis: Foot ulcer Post-Procedure Note Procedure Start Date: Mar 27, 2020 Name of Procedure: Abdominal aortogram Bilateral lower extremity runoff Third order Additional imaging x2 Findings/Procedure Note PROCEDURE NOTE: 79 years old gentleman with history of diabetes, hypertension, recurrent foot ulcer. Had abnormal ROSA, scheduled for angiogram possible angioplasty After explaining the procedure to the patient, all pros and cons were explained, all questions were answered. The patient signed the consent and then he was placed on the cardiac catheterization laboratory. The patient was placed on the cardiac catheterization laboratory. Groin was prepped SL fashion local anesthesia was used. Sheath placed in the right femoral artery, runoff was done through the right leg, rim catheter advanced to the left iliac artery on runoff to the left leg was done. I noticed very slow flow through followed both lower extremities. 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 I decided to attempt for intervention, patient was given 5000 units of heparin. I put initially 55 6 Sudanese sheath then 70 6 Sudanese sheath, tried with multiple different wires straight catheter and mini catheter, I was unable to advance any wire and the anterior tibial artery. Significant tortuosity I was unable to talk the wire. At that time I decided to abort the procedure angiogram was done showing no complication after removing wire I placed a pigtail catheter in the abdominal aorta and reevaluated the abdominal aorta and no complication noted bifurcation was evaluated. Normal. Closure device was used in the right groin. FINDINGS: 1 Right lower extremity, diffuse atherosclerotic plaque and calcification through followed the SFA. Very slow flow through followed the artery down to the trifurcation 2. Left lower extremity, very slow flow with heavily calcified SFA, nonobstructive disease, anterior tibial artery is occluded, I was unable to advance a wire through it. Posterior tibial artery is occluded. Unable to advance a wire, the peroneal artery is patent and giving collateral filling retrograde the anterior tibial and posterior tibial arteries. CONCLUSIONS: 1. Severe small vessel disease diffusely with slow flow through followed the lower extremities 2. Occluded left anterior tibial artery reconstructed by collateral distally from the peroneal artery, failed attempt for intervention, occluded posterior tibial artery. Receiving collaterals from the peroneal artery DISCUSSION AND RECOMMENDATIONS: Maximize medical therapy at this point. Anesthesia Type: Conscious Sedation Estimated blood loss (mL): 50 ml Contrast Amount: 70 ml Total Radiation Dose: 212 mGy Post-Procedure Diagnosis Post-operative diagnosis: Ischemic foot ulcer Peripheral artery disease Hypertension Hyperlipidemia CHRISTOPHER TANG MD Mar 27, 2020 15:34
[2020-03-27] MEDS: NS IV 1000 ML 1,000 ML IV SCH (16:36)
[2020-03-27] MEDS ORDERED: HYDROcodone/APAP 5 MG/325 MG (LORTAB) TAB PO PRN (16:45)
[2020-03-27] MEDS ORDERED: PATIENT MAY USE OWN MEDS, ALL MC SCH (17:00)
[2020-03-27] MEDS ORDERED: RT-ALBUTEROL SULF 2.5 MG/3 ML PRE-MIX VIAL INH PRN (17:00)
--- NOTE | 2020-03-27 17:13 | Wound Care Assessment ---
Wound Care Assessment Date Seen by Provider: Mar 27, 2020 Time Seen by Provider: 17:08 Chief Complaint Inflamed L 4th toe. HPI The patient is a pleasant 79 year old male known to me from previous wound care episodes with new onset of inflammation of the L 4th toe, which seems to be responding to IV antibiotics. No open area is appreciated, no intertriginous maceration, and no cyanosis. The foot is cool to the touch but pink. No pedal pulse is palpable. Arteriography earlier today as per Dr. Foreman. No specific recommendations at this time. Would continue with present regimen and monitor for changes. Smoking Status: Former Smoker Recreational Drug Use: No Alcohol Use: Denies Use Exam Vital Signs Date Time Temp Pulse Resp B/P (MAP) Pulse Ox O2 Delivery O2 Flow Rate FiO2 03/27/20 16:00 56 8 96/55 (69) 96 Room Air 03/27/20 15:50 36.1 Capillary Refill : Less Than 3 Seconds Results Laboratory Tests 03/27/20 12:35: White Blood Count 5.0, Red Blood Count 3.70L, Hemoglobin 11.9L, Hematocrit 34L, Mean Corpuscular Volume 91, Mean Corpuscular Hemoglobin 32, Mean Corpuscular Hemoglobin Concent 35, Red Cell Distribution Width 13.4, Platelet Count 151, Mean Platelet Volume 8.7, Prothrombin Time 13.7, INR Comment 1.0, Activated Partial Thromboplast Time 30, Sodium Level 137, Potassium Level 4.3, Chloride Level 106, Carbon Dioxide Level 19L, Anion Gap 12, Blood Urea Nitrogen 21H, Creatinine 1.18, Estimat Glomerular Filtration Rate 60, BUN/Creatinine Ratio 18, Glucose Level 196H, Calcium Level 9.1, Corrected Calcium 9.0, Total Bilirubin 0.7, Aspartate Amino Transf (AST/SGOT) 17, Alanine Aminotransferase (ALT/SGPT) 14, Alkaline Phosphatase 83, Total Protein 7.1, Albumin 4.1, Triglycerides Level 93, Cholesterol Level 142, LDL Cholesterol Direct 82, VLDL Cholesterol 19, HDL Cholesterol 50 03/27/20 16:59: Glucometer 156H NISSA CASTAÑEDA MD Mar 27, 2020 17:13
[2020-03-27] MEDS ORDERED: HALOPERIDOL 5 MG/ML (HALDOL) AMP IM PRN (19:00)
[2020-03-27] MEDS: metroNIDAZOLE 500 MG (FLAGYL) TAB PO SCH (19:15)
[2020-03-27] MEDS: inSUlin ASPART (NovoLOG) 1 UNIT/0.01 ML (CHARGE PER UNIT) SC SCH (20:05)
[2020-03-27] MEDS: CEFDINIR 300 MG (OMNICEF) CAP PO SCH (20:05)
[2020-03-27] MEDS: TERBINAFINE 250 MG TABLET PO SCH (20:06)
[2020-03-27] MEDS: CARVEDILOL 3.125 MG (COREG) TABLET PO SCH (20:06)
[2020-03-27] MEDS ORDERED: OLANZapine 5 MG ODT (ZyPREXA ZYDIS) PO SCH (21:00)
[2020-03-27] MEDS ORDERED: RT-ALBUTEROL SULF 2.5 MG/3 ML PRE-MIX VIAL INH SCH (21:00)
[2020-03-27] MEDS ORDERED: MONTELUKAST 10 MG (SINGULAIR) TAB PO SCH (21:00)
[2020-03-27] MEDS ORDERED: GALANTAMINE HBR 4 MG PO SCH (21:00)
[2020-03-28 00:09] VITALS: BP 99/51
[2020-03-28] MEDS: NS IV 1000 ML 1,000 ML IV SCH (01:16)
[2020-03-28 03:00] LABS: BASOPHILS % (AUTO) 0 % (0-10); EOSINOPHILS # (AUTO) 0.1 10^3/uL (0.0-0.3); EOSINOPHILS % (AUTO) 2 % (0-10); HEMATOCRIT 28 % (40-54); HEMOGLOBIN 9.6 G/DL (13.3-17.7); LYMPHOCYTES # (AUTO) 1.3 X 10^3 (1.0-4.0); LYMPHOCYTES % (AUTO) 28 % (12-44); MEAN CORPUSCULAR HEMOGLOBIN 32 PG (25-34); MEAN CORPUSCULAR HGB CONC 35 G/DL (32-36); MEAN CORPUSCULAR VOLUME 92 FL (80-99); MEAN PLATELET VOLUME 8.8 FL (7.4-10.4); MONOCYTES # (AUTO) 0.5 X 10^3 (0.0-1.0); MONOCYTES % (AUTO) 12 % (0-12); NEUTROPHILS # (AUTO) 2.6 X 10^3 (1.8-7.8); NEUTROPHILS % (AUTO) 58 % (42-75); PLATELET COUNT 132 10^3/uL (130-400); RED CELL DISTRIBUTION WIDTH 13.3 % (10.0-14.5); WHITE BLOOD COUNT 4.5 10^3/uL (4.3-11.0)
[2020-03-28 03:18] LABS: ALANINE AMINOTRANSFERASE 11 U/L (0-55); ALBUMIN 3.3 GM/DL (3.2-4.5); ALKALINE PHOSPHATASE 63 U/L (40-136); BILIRUBIN,TOTAL 0.6 MG/DL (0.1-1.0); BUN/CREATININE RATIO 17; CALCIUM 8.2 MG/DL (8.5-10.1); CARBON DIOXIDE 20 MMOL/L (21-32); CHLORIDE 108 MMOL/L (98-107); CREATININE SERUM 1.03 MG/DL (0.60-1.30); GFR ESTIMATED > 60; GLUCOSE 141 MG/DL (70-105); POTASSIUM 3.9 MMOL/L (3.6-5.0); SODIUM 138 MMOL/L (135-145); TOTAL PROTEIN 5.7 GM/DL (6.4-8.2)
[2020-03-28 04:00] VITALS: BP 92/59
[2020-03-28] MEDS: inSUlin ASPART (NovoLOG) 1 UNIT/0.01 ML (CHARGE PER UNIT) SC SCH (05:31)
--- NOTE | 2020-03-28 06:29 | Discharge Inst-Post CATH ---
Discharge Inst-CATH/EP Problems Reviewed?: Yes Post Cardiac Cath/EP D/C Inst Follow Up/Plan Appointment with Dr Foreman in 2-4 weeks <b>CARDIAC CATH/EP PROCEDURE DISCHARGE INSTRUCTIONS</b> ACTIVITY * Go Home directly and rest. * Limit activity of the leg (or wrist if it was used) for 7 days including aerobics, swimming, jogging, bicycling, etc. * Restrict stair-climbing for 7 days if possible, if not, climb up with your non-cath leg, then bring together on the same step. * Avoid lifting, pushing, pulling or excessive movement of the affected extremity for 7 days. * Customary sexual activity may be resumed after 2 days-use caution not to use a position that strains or causes pain to the affected extremity. * No driving for 24 hours. * NO SMOKING. * Avoid straining for bowel movements for 7 days. * Gentle walking on level ground is allowed. * Returning to work will depend on the type of procedure and the results. Your doctor will discuss this with you. CALL YOUR DOCTOR FOR ANY OF THE FOLLOWING: *If bleeding from the puncture site occurs- Apply gentle pressure to site with clean cloth and call your doctor or EMS. * If a knot or lump forms under the skin, increases in size, or causes pain. * If bruising appears to be worsening or moving further down your leg instead of disappearing. * Temperature above 101 F. CARE OF YOUR GROIN INCISION; * Bruising or purple discoloration of the skin near the puncture site is common. * You may shower only, no bathtub bathing for 5 days. Be careful to avoid slipping as your leg may feel stiff. * If a closure device was used on your femoral artery, please see the attached guide regarding care of the device and your leg. * Leave dressing on FOR 24 hours. CARE OF YOUR WRIST INCISION; * Bruising or purple discoloration of the skin near the puncture site is common. * You may shower. * DO NOT submerge wrist. * Leave dressing on FOR 24 hours. CHRISTOPHER FOREMAN MD Mar 28, 2020 06:29
[2020-03-28] MEDS ORDERED: NITR1PAT81 TD (06:31)
[2020-03-28] MEDS ORDERED: NITROGLYCERIN 0.2 MG/PATCH (NITRO-DUR) TD ONE (06:45)
[2020-03-28 07:03] VITALS: BP 107/59
--- NOTE | 2020-03-28 07:07 | NUR ---
pt does not need anything at this time. pt is in no signs of respiratory distress. Addendum: 03/28/20 at 0708 by MORELIA WILLIAMSON RT Amended: Links added.
[2020-03-28] MEDS ORDERED: TERB250T16 PO (07:22)
[2020-03-28] MEDS ORDERED: METR500T PO (07:22)
[2020-03-28] MEDS ORDERED: MICO5POW6 MC (07:22)
[2020-03-28] MEDS: metroNIDAZOLE 500 MG (FLAGYL) TAB PO SCH (07:27)
[2020-03-28] MEDS: CEFDINIR 300 MG (OMNICEF) CAP PO SCH (07:28)
[2020-03-28] MEDS: CARVEDILOL 3.125 MG (COREG) TABLET PO SCH (07:28)
[2020-03-28] MEDS: TERBINAFINE 250 MG TABLET PO SCH (07:28)
--- NOTE | 2020-03-28 08:43 | Cardiology Progress Note ---
Subjective Date Seen by Provider: Mar 28, 2020 Time Seen by Provider: 08:42 Subjective/Events-last exam Patient is feeling well, no new complaint. Groin is healing well Review of Systems General: No Chills, No Night Sweats, No Fatigue, No Malaise, No Appetite, No Other HEENT: No Head Aches, No Visual Changes, No Eye Pain, No Ear Pain, No Dysphasia, No Sinus Congestion, No Post Nasal Drip, No Sore Throat, No Other Pulmonary: No Dyspnea, No Cough, No Pleuritic Chest Pain, No Other Cardiovascular: No: Chest Pain, Palpitations, Orthopnea, Paroxysmal Noc. Dyspnea, Edema, Lt Headedness, Other Objective-Cardiology Exam Last Set of Vital Signs Vital Signs 03/28/20 03/28/20 07:03 07:30 Temp 36.8 Pulse 75 Resp 19 B/P (MAP) 107/59 (75) Pulse Ox 98 O2 Delivery Room Air Capillary Refill : Less Than 3 Seconds I&O Intake and Output 03/28/20 00:00 Intake Total 300 ml Output Total 400 ml Balance -100 ml Intake Oral 300 ml Output Urine Total 400 ml General: Alert, Oriented X3, Cooperative HEENT: Atraumatic, PERRLA Neck: Supple, No JVD, No Thyromegaly Lungs: Clear to Auscultation, Normal Air Movement Heart: Regular Rate, Normal S1, Normal S2, No Murmurs Abdomen: Normal Bowel Sounds, Soft, No Tenderness, No Hepatosplenomegaly, No Masses Extremities: No Clubbing, No Cyanosis, No Edema, Normal Pulses, No Tenderness/Swelling Skin: No Rashes, No Breakdown, No Significant Lesion Neuro: Normal Gait, Normal Speech, Strength at 5/5 X4 Ext, Normal Tone, Sensa tion Intact Psych/Mental Status: Mental Status NL, Mood NL Results Lab Laboratory Tests 03/27/20 12:35 03/28/20 02:51 A/P-Cardiology Admission Diagnosis Peripheral arterial disease Coronary artery disease Hypertension Hyperlipidemia Assessment/Plan Foot ulcer, prefer to disease, conservative management, adding nitroglycerin patch to the leg. Coronary artery disease, clinically stable Hypertension, continue current medication Hyperlipidemia, continue current medication CHRISTOPHER TANG MD Mar 28, 2020 8:43 am
[2020-03-28] MEDS ORDERED: PANTOPRAZOLE 40 MG (PROTONIX) TAB PO SCH (09:00)
[2020-03-28] MEDS ORDERED: ASPIRIN E.C. 81 MG (ECOTRIN) TAB PO SCH (09:00)
[2020-03-28] MEDS ORDERED: LORATADINE (CLARITIN) 10 MG TAB PO SCH (09:00)
--- NOTE | 2020-03-28 09:30 | NUR ---
PT EDUCTED ON DISCHARGE INSTRUCTIONS AND MEDICATION. PT STATED UNDERSTANDING.
[2020-03-28 10:32] VITALS: BP 107/59
--- NOTE | 2020-03-28 11:18 | NUR ---
RD ASSESSMENT PMHx: DM; HTN; MS; CAD; afib; COPD; GERD; CA; CA(skin, leukemia) PT INTERACTION: Pt was awake and pleasant during nutrition assessment. Note pt has dementia, per chart review. Pt states current appetite is good. Pt states following a regular diet at home, and has no issues with chewing/swallowing food. Pt states no recent issues with nausea, vomiting, constipation, or diarrhea, and that his last BM was 6/10. Pt states no recent wt changes. Note unable to determine recent wt hx, per chart review. Pt states current DM management is good. "I've been a diabetic for 30 years, and I've got pretty good control of it." Note presence of wound on left 4th toe, per chart review. ABNORMAL NUTRITION-RELATED LAB VALUES LOW: Ca 8.2; Pro 5.7 HIGH: Cl 108; glu 141 Est. kcal needs: 8147-8694 kcal | 25-30 kcal/kg Est. Pro needs: 94-110 g Pro | 1.2-1.4 g Pro/kg PES STATEMENT: Inadequate protein intake (NI-5.6.1) related to increased protein needs as evidenced by presence of wound (L 4th toe) INTERVENTION: Continue with current diet order of CHO 60g/m 1snack diet. Discussed and provided diet education on DM management. Discussed relationship between DM and wound care. Discussed protein intake, sources, and role of protein in would care. Discussed CHO counting. Pt verbalized understanding of information presented and asked questions for clarification. Will continue to follow and reassess as pt needs, intake, and status change. MONITOR/EVALUATE: PO Intake; Plan of Care; Hydration Status; Weight Status; Lab Values Diamond Lanier, MS, RD, LD
== END 2020-03-28 10:32 | disposition home or self-care (01) ==
LOC: CATH 11:48 → ICU 15:45 → CATH 03-28 10:32
PROVIDERS: ATTEND Internal Medicine Cardiovascular Disease
DX: E11.621 Type 2 diabetes mellitus with foot ulcer (principal); I77.1 Stricture of artery; L97.529 Non-pressure chronic ulcer of other part of left foot with unspecified severity; K55.059 Acute (reversible) ischemia of intestine, part and extent unspecified; L97.519 Non-pressure chronic ulcer of other part of right foot with unspecified severity; E11.51 Type 2 diabetes mellitus with diabetic peripheral angiopathy without gangrene; I48.92 Unspecified atrial flutter; I11.0 Hypertensive heart disease with heart failure; I50.9 Heart failure, unspecified; I25.10 Atherosclerotic heart disease of native coronary artery without angina pectoris; I65.23 Occlusion and stenosis of bilateral carotid arteries; E11.42 Type 2 diabetes mellitus with diabetic polyneuropathy; E78.5 Hyperlipidemia, unspecified; D50.9 Iron deficiency anemia, unspecified; E83.42 Hypomagnesemia; J44.9 Chronic obstructive pulmonary disease, unspecified; Z79.4 Long term (current) use of insulin; Z79.899 Other long term (current) drug therapy; Z79.82 Long term (current) use of aspirin; Z90.49 Acquired absence of other specified parts of digestive tract; Z85.6 Personal history of leukemia; Z87.891 Personal history of nicotine dependence
CPT/HCPCS: 36248; 36415; 71045; 75625; 75716; 80053; 80061; 82962; 85025; 85027; 85610; 85730; 87081; 93005

== ENCOUNTER → 2020-03-28 | Outpatient (CLI) | payer MEDICARE ==
[~2020-03-28] MED LIST changes: +IPRA0.2S51 IH; +METR-145 PO; +METR500T PO; +MICO5POW6 MC; +NITR0.4T39 SL; +NITR1PAT81 TD; +PAMI30VI8 SQ; +TERB250T16 PO
--- NOTE | 2020-03-28 17:16 | Diagnostic Imaging Report ---
INDICATION: Swelling over the upper inner thigh for a week TECHNIQUE: Multiple real time aleman scale sonographic images were obtained of the soft tissues left upper inner thigh. CORRELATION STUDY: None FINDINGS: Ultrasound imaging of the soft tissues of the left upper inner thigh demonstrates no definitive discrete mass lesion. There is a question of a mild amount of edema interposed within the myofascial planes. IMPRESSION: 1. No sonographic evidence for discrete mass at the area imaged, left upper inner thigh. Does appear to be some fluid along the myofascial planes, nonspecific. Dictated by: Dictated on workstation # [id number]
== END ==
LOC: RAD 16:33
PROVIDERS: ATTEND Surgery
DX: R22.42 Localized swelling, mass and lump, left lower limb (principal)
CPT/HCPCS: 76881

== ENCOUNTER → 2020-04-01 | Outpatient (CLI) | payer MEDICARE ==
--- NOTE | 2020-04-01 12:44 | Diagnostic Imaging Report ---
INDICATION: Intertrochanteric fracture. TIME OF EXAM: 9:25 AM. COMPARISON: 08/29/2019. FINDINGS: An intramedullary jeffrey and compression screw transfix the left hip. The alignment appears stable. The femoroacetabular alignment is normal. The hardware is intact. No acute fractures are seen. Vascular calcifications within the femoral system are seen. IMPRESSION: Stable postop changes of the left femur when compared to the exam from 08/29/2019. Dictated by: Dictated on workstation # [id number]
== END ==
LOC: ORTHO 08:37
PROVIDERS: ATTEND Orthopaedic Surgery
DX: S72.142A Displaced intertrochanteric fracture of left femur, initial encounter for closed fracture (principal)
CPT/HCPCS: 73552; G0463; 99213

== ENCOUNTER 2020-04-29 09:27 | Outpatient (RCR) | payer MEDICARE ==
[2020-02-05 10:26] LABS: BASOPHILS % (AUTO) 0 % (0-10); EOSINOPHILS # (AUTO) 0.2 10^3/uL (0.0-0.3); EOSINOPHILS % (AUTO) 3 % (0-10); HEMATOCRIT 35 % (40-54); HEMOGLOBIN 12.1 G/DL (13.3-17.7); LYMPHOCYTES # (AUTO) 1.7 X 10^3 (1.0-4.0); LYMPHOCYTES % (AUTO) 32 % (12-44); MEAN CORPUSCULAR HEMOGLOBIN 32 PG (25-34); MEAN CORPUSCULAR HGB CONC 35 G/DL (32-36); MEAN CORPUSCULAR VOLUME 91 FL (80-99); MEAN PLATELET VOLUME 9.2 FL (7.4-10.4); MONOCYTES # (AUTO) 0.6 X 10^3 (0.0-1.0); MONOCYTES % (AUTO) 12 % (0-12); NEUTROPHILS # (AUTO) 2.8 X 10^3 (1.8-7.8); NEUTROPHILS % (AUTO) 53 % (42-75); PLATELET COUNT 152 10^3/uL (130-400); RED CELL DISTRIBUTION WIDTH 13.2 % (10.0-14.5); WHITE BLOOD COUNT 5.3 10^3/uL (4.3-11.0)
[2020-03-18 14:12] LABS: BASOPHILS % (AUTO) 0 % (0-10); EOSINOPHILS # (AUTO) 0.1 10^3/uL (0.0-0.3); EOSINOPHILS % (AUTO) 2 % (0-10); HEMATOCRIT 34 % (40-54); HEMOGLOBIN 11.9 G/DL (13.3-17.7); LYMPHOCYTES # (AUTO) 2.1 X 10^3 (1.0-4.0); LYMPHOCYTES % (AUTO) 36 % (12-44); MEAN CORPUSCULAR HEMOGLOBIN 32 PG (25-34); MEAN CORPUSCULAR HGB CONC 36 G/DL (32-36); MEAN CORPUSCULAR VOLUME 91 FL (80-99); MONOCYTES # (AUTO) 0.5 X 10^3 (0.0-1.0); MONOCYTES % (AUTO) 10 % (0-12); NEUTROPHILS % (AUTO) 52 % (42-75); PLATELET COUNT 153 10^3/uL (130-400); RED CELL DISTRIBUTION WIDTH 13.3 % (10.0-14.5); WHITE BLOOD COUNT 5.7 10^3/uL (4.3-11.0)
[2020-03-18 14:32] LABS: ALANINE AMINOTRANSFERASE 16 U/L (0-55); ALKALINE PHOSPHATASE 110 U/L (40-136); BILIRUBIN,TOTAL 0.6 MG/DL (0.1-1.0); BUN/CREATININE RATIO 21; CALCIUM 8.7 MG/DL (8.5-10.1); CARBON DIOXIDE 24 MMOL/L (21-32); CHLORIDE 103 MMOL/L (98-107); CREATININE SERUM 1.12 MG/DL (0.60-1.30); GFR ESTIMATED > 60; GLUCOSE 258 MG/DL (70-105); POTASSIUM 4.3 MMOL/L (3.6-5.0); SODIUM 136 MMOL/L (135-145)
[~2020-04-29 09:27] MED LIST changes: -GALA8TAB4 PO; +GALA8TAB8 PO
[2020-04-29 09:46] LABS: BASOPHILS % (AUTO) 0 % (0-10); EOSINOPHILS # (AUTO) 0.1 10^3/uL (0.0-0.3); EOSINOPHILS % (AUTO) 2 % (0-10); HEMATOCRIT 33 % (40-54); HEMOGLOBIN 11.6 G/DL (13.3-17.7); LYMPHOCYTES # (AUTO) 1.6 X 10^3 (1.0-4.0); LYMPHOCYTES % (AUTO) 33 % (12-44); MEAN CORPUSCULAR HEMOGLOBIN 33 PG (25-34); MEAN CORPUSCULAR HGB CONC 35 G/DL (32-36); MEAN CORPUSCULAR VOLUME 94 FL (80-99); MEAN PLATELET VOLUME 8.9 FL (7.4-10.4); MONOCYTES # (AUTO) 0.5 X 10^3 (0.0-1.0); MONOCYTES % (AUTO) 11 % (0-12); NEUTROPHILS # (AUTO) 2.5 X 10^3 (1.8-7.8); NEUTROPHILS % (AUTO) 53 % (42-75); PLATELET COUNT 158 10^3/uL (130-400); RED CELL DISTRIBUTION WIDTH 13.7 % (10.0-14.5); WHITE BLOOD COUNT 4.7 10^3/uL (4.3-11.0)
== END 2020-05-05 | disposition home or self-care (01) ==
LOC: ONC 09:27
PROVIDERS: ATTEND Internal Medicine Hematology & Oncology
DX: C91.00 Acute lymphoblastic leukemia not having achieved remission (principal); D50.9 Iron deficiency anemia, unspecified; I25.10 Atherosclerotic heart disease of native coronary artery without angina pectoris; I10 Essential (primary) hypertension; E11.43 Type 2 diabetes mellitus with diabetic autonomic (poly)neuropathy; E78.5 Hyperlipidemia, unspecified; S72.002D Fracture of unspecified part of neck of left femur, subsequent encounter for closed fracture with routine healing; J44.9 Chronic obstructive pulmonary disease, unspecified; Z79.4 Long term (current) use of insulin; Z79.899 Other long term (current) drug therapy; Z92.21 Personal history of antineoplastic chemotherapy
CPT/HCPCS: 36591; 80053; 83615; 85025

== ENCOUNTER 2020-07-22 08:55 | Outpatient (RCR) | payer MEDICARE ==
[2020-06-10 09:49] LABS: BASOPHILS % (AUTO) 0 % (0-10); EOSINOPHILS # (AUTO) 0.1 10^3/uL (0.0-0.3); EOSINOPHILS % (AUTO) 2 % (0-10); HEMATOCRIT 34 % (40-54); LYMPHOCYTES # (AUTO) 1.6 X 10^3 (1.0-4.0); LYMPHOCYTES % (AUTO) 31 % (12-44); MEAN CORPUSCULAR HEMOGLOBIN 33 PG (25-34); MEAN CORPUSCULAR HGB CONC 35 G/DL (32-36); MEAN CORPUSCULAR VOLUME 92 FL (80-99); MONOCYTES # (AUTO) 0.6 X 10^3 (0.0-1.0); MONOCYTES % (AUTO) 11 % (0-12); NEUTROPHILS # (AUTO) 2.9 X 10^3 (1.8-7.8); NEUTROPHILS % (AUTO) 56 % (42-75); PLATELET COUNT 156 10^3/uL (130-400); WHITE BLOOD COUNT 5.1 10^3/uL (4.3-11.0)
[2020-06-10 10:06] LABS: ALBUMIN 3.9 GM/DL (3.2-4.5); BILIRUBIN,TOTAL 0.7 MG/DL (0.1-1.0); CALCIUM 8.5 MG/DL (8.5-10.1); CREATININE SERUM 1.27 MG/DL (0.60-1.30); POTASSIUM 4.1 MMOL/L (3.6-5.0); TOTAL PROTEIN 6.8 GM/DL (6.4-8.2)
[~2020-07-22 08:55] MED LIST changes: +ASPI-1238 PO; -ASPI-983 PO; -PANT40TA3 PO; +PANT40TA52 PO
== END 2020-09-08 | disposition home or self-care (01) ==
LOC: ONC 08:55
PROVIDERS: ATTEND Internal Medicine Hematology & Oncology
DX: C91.00 Acute lymphoblastic leukemia not having achieved remission (principal); D50.9 Iron deficiency anemia, unspecified; I25.10 Atherosclerotic heart disease of native coronary artery without angina pectoris; I10 Essential (primary) hypertension; E11.43 Type 2 diabetes mellitus with diabetic autonomic (poly)neuropathy; E78.5 Hyperlipidemia, unspecified; S72.002D Fracture of unspecified part of neck of left femur, subsequent encounter for closed fracture with routine healing; J44.9 Chronic obstructive pulmonary disease, unspecified; Z79.4 Long term (current) use of insulin; Z79.899 Other long term (current) drug therapy; Z92.21 Personal history of antineoplastic chemotherapy
CPT/HCPCS: 80053; 83615; 85025; G0463; 36591; 96523

== ENCOUNTER → 2020-09-11 | Outpatient (CLI) | payer MEDICARE ==
[2020-09-11 08:54] LABS: CHLORIDE 105 MMOL/L (98-107); POTASSIUM 4.1 MMOL/L (3.6-5.0); SODIUM 136 MMOL/L (135-145)
[2020-09-11 08:56] LABS: CALCIUM 8.3 MG/DL (8.5-10.1); TRIGLYCERIDES 82 MG/DL (<150)
[2020-09-11 08:57] LABS: GLUCOSE 225 MG/DL (70-105); TOTAL PROTEIN 6.8 GM/DL (6.4-8.2)
[2020-09-11 08:58] LABS: CARBON DIOXIDE 21 MMOL/L (21-32)
[2020-09-11 08:59] LABS: BILIRUBIN,TOTAL 0.7 MG/DL (0.1-1.0)
[2020-09-11 09:00] LABS: ALKALINE PHOSPHATASE 89 U/L (40-136); CREATININE SERUM 1.02 MG/DL (0.60-1.30); GFR ESTIMATED > 60
[2020-09-11 09:01] LABS: BUN/CREATININE RATIO 19; CHOLESTEROL 136 MG/DL (< 200)
[2020-09-11 09:03] LABS: ALANINE AMINOTRANSFERASE 15 U/L (0-55)
== END ==
LOC: LAB 08:16
PROVIDERS: ATTEND Internal Medicine
DX: Z13.6 Encounter for screening for cardiovascular disorders (principal); I10 Essential (primary) hypertension; E11.65 Type 2 diabetes mellitus with hyperglycemia
CPT/HCPCS: 36415; 80053; 82043; 82465; 83036; 84478

== ENCOUNTER 2020-09-18 10:10 | Outpatient (RCR) | payer MEDICARE ==
[~2020-09-18 10:10] MED LIST changes: -MONT10TA26 PO; +MONT10TA97 PO
[2020-09-18 10:23] LABS: BASOPHILS % (AUTO) 1 % (0-10); EOSINOPHILS # (AUTO) 0.1 10^3/uL (0.0-0.3); EOSINOPHILS % (AUTO) 2 % (0-10); HEMATOCRIT 36 % (40-54); HEMOGLOBIN 12.3 g/dL (13.3-17.7); LYMPHOCYTES # (AUTO) 1.8 10^3/uL (1.0-4.0); LYMPHOCYTES % (AUTO) 32 % (12-44); MEAN CORPUSCULAR HEMOGLOBIN 32 pg (25-34); MEAN CORPUSCULAR HGB CONC 34 g/dL (32-36); MEAN CORPUSCULAR VOLUME 95 fL (80-99); MONOCYTES # (AUTO) 0.5 10^3/uL (0.0-1.0); MONOCYTES % (AUTO) 9 % (0-12); NEUTROPHILS # (AUTO) 3.2 10^3/uL (1.8-7.8); NEUTROPHILS % (AUTO) 57 % (42-75); PLATELET COUNT 159 10^3/uL (130-400); WHITE BLOOD COUNT 5.7 10^3/uL (4.3-11.0)
== END 2020-10-24 16:30 | disposition home or self-care (01) ==
LOC: ONC 10:10
PROVIDERS: ATTEND Internal Medicine Hematology & Oncology
DX: C91.00 Acute lymphoblastic leukemia not having achieved remission (principal); D50.9 Iron deficiency anemia, unspecified; I25.10 Atherosclerotic heart disease of native coronary artery without angina pectoris; I10 Essential (primary) hypertension; E11.43 Type 2 diabetes mellitus with diabetic autonomic (poly)neuropathy; E78.5 Hyperlipidemia, unspecified; S72.002D Fracture of unspecified part of neck of left femur, subsequent encounter for closed fracture with routine healing; J44.9 Chronic obstructive pulmonary disease, unspecified; Z79.4 Long term (current) use of insulin; Z79.899 Other long term (current) drug therapy; Z92.21 Personal history of antineoplastic chemotherapy
CPT/HCPCS: 83615; 85025; 96523; G0463

== ENCOUNTER → 2020-12-17 | Outpatient (CLI) | payer MEDICARE ==
[~2020-12-17] MED LIST changes: -LISI-556 PO; +LISI-729 PO; +MONT10TA32 PO; -MONT10TA97 PO; +SERT-413 PO; +SERT-414 PO; -SERT100T8 PO
[2020-12-17 08:19] LABS: BASOPHILS % (AUTO) 0 % (0-10); EOSINOPHILS # (AUTO) 0.1 10^3/uL (0.0-0.3); EOSINOPHILS % (AUTO) 2 % (0-10); HEMATOCRIT 34 % (40-54); HEMOGLOBIN 11.8 g/dL (13.3-17.7); LYMPHOCYTES # (AUTO) 1.6 10^3/uL (1.0-4.0); LYMPHOCYTES % (AUTO) 33 % (12-44); MEAN CORPUSCULAR HEMOGLOBIN 32 pg (25-34); MEAN CORPUSCULAR HGB CONC 35 g/dL (32-36); MEAN CORPUSCULAR VOLUME 92 fL (80-99); MEAN PLATELET VOLUME 8.9 fL (9.0-12.2); MONOCYTES # (AUTO) 0.5 10^3/uL (0.0-1.0); MONOCYTES % (AUTO) 10 % (0-12); NEUTROPHILS # (AUTO) 2.7 10^3/uL (1.8-7.8); NEUTROPHILS % (AUTO) 54 % (42-75); PLATELET COUNT 142 10^3/uL (130-400); WHITE BLOOD COUNT 4.9 10^3/uL (4.3-11.0)
[2020-12-17 08:38] LABS: ALANINE AMINOTRANSFERASE 16 U/L (0-55); ALBUMIN 3.9 GM/DL (3.2-4.5); ALKALINE PHOSPHATASE 85 U/L (40-136); BILIRUBIN,TOTAL 0.6 MG/DL (0.1-1.0); BUN/CREATININE RATIO 13; CALCIUM 8.5 MG/DL (8.5-10.1); CARBON DIOXIDE 21 MMOL/L (21-32); CHLORIDE 107 MMOL/L (98-107); CHOLESTEROL 137 MG/DL (< 200); CREATININE SERUM 1.07 MG/DL (0.60-1.30); GFR ESTIMATED > 60; GLUCOSE 192 MG/DL (70-105); HDL CHOLESTEROL 50 MG/DL (40-60); SODIUM 138 MMOL/L (135-145); TOTAL PROTEIN 6.7 GM/DL (6.4-8.2); TRIGLYCERIDES 104 MG/DL (<150); VLDL CHOLESTEROL 21 MG/DL (5-40)
== END ==
LOC: LAB 07:50
PROVIDERS: ATTEND Internal Medicine
DX: Z13.6 Encounter for screening for cardiovascular disorders (principal); E08.621 Diabetes mellitus due to underlying condition with foot ulcer; I10 Essential (primary) hypertension
CPT/HCPCS: 36415; 80053; 80061; 83036; 84443; 85025

== ENCOUNTER 2021-01-22 09:42 | Outpatient (RCR) | payer MEDICARE ==
[~2021-01-22 09:42] MED LIST changes: +DEXT-157 PO; -DEXT-319 PO
== END 2021-01-28 | disposition home or self-care (01) ==
LOC: ONC 09:42
PROVIDERS: ATTEND Internal Medicine Hematology & Oncology
DX: C91.00 Acute lymphoblastic leukemia not having achieved remission (principal); D50.9 Iron deficiency anemia, unspecified; I25.10 Atherosclerotic heart disease of native coronary artery without angina pectoris; I10 Essential (primary) hypertension; E11.43 Type 2 diabetes mellitus with diabetic autonomic (poly)neuropathy; E78.5 Hyperlipidemia, unspecified; S72.002D Fracture of unspecified part of neck of left femur, subsequent encounter for closed fracture with routine healing; J44.9 Chronic obstructive pulmonary disease, unspecified; Z79.4 Long term (current) use of insulin; Z79.899 Other long term (current) drug therapy; Z92.21 Personal history of antineoplastic chemotherapy
CPT/HCPCS: 96523

== ENCOUNTER 2021-01-24 06:45 | Outpatient (RCR) | payer MEDICARE | END 2021-01-26 | disposition home or self-care (01) | LOC: CR3 06:45 | PROVIDERS: ATTEND Internal Medicine | DX: Z29.8 Encounter for other specified prophylactic measures (principal) ==

== ENCOUNTER → 2021-02-26 | Outpatient (RCR) | payer MEDICARE ==
[~2021-02-26] MED LIST changes: +ACYC-108 PO; -ACYC200C PO
== END | disposition home or self-care (01) ==
LOC: CR3 01-27 06:30
PROVIDERS: ATTEND Internal Medicine
DX: Z29.8 Encounter for other specified prophylactic measures (principal)

== ENCOUNTER 2021-03-28 06:39 | Outpatient (RCR) | payer MEDICARE | END 2021-03-30 | disposition home or self-care (01) | LOC: CR3 06:39 | PROVIDERS: ATTEND Internal Medicine | DX: Z29.8 Encounter for other specified prophylactic measures (principal) ==

== ENCOUNTER → 2021-04-30 | Outpatient (RCR) | payer MEDICARE ==
[~2021-04-30] MED LIST changes: -OMEP40CA27 PO; +OMEP40CA6 PO
== END | disposition home or self-care (01) ==
LOC: CR3 03-31 06:29
PROVIDERS: ATTEND Internal Medicine
DX: Z29.8 Encounter for other specified prophylactic measures (principal)

== ENCOUNTER 2021-05-28 09:34 | Outpatient (RCR) | payer MEDICARE ==
[2021-03-05 10:39] LABS: BASOPHILS % (AUTO) 0 % (0-10); EOSINOPHILS # (AUTO) 0.2 10^3/uL (0.0-0.3); EOSINOPHILS % (AUTO) 3 % (0-10); HEMATOCRIT 33 % (40-54); HEMOGLOBIN 11.6 g/dL (13.3-17.7); LYMPHOCYTES # (AUTO) 1.7 10^3/uL (1.0-4.0); LYMPHOCYTES % (AUTO) 33 % (12-44); MEAN CORPUSCULAR HEMOGLOBIN 33 pg (25-34); MEAN CORPUSCULAR HGB CONC 35 g/dL (32-36); MEAN CORPUSCULAR VOLUME 92 fL (80-99); MEAN PLATELET VOLUME 9.1 fL (9.0-12.2); MONOCYTES # (AUTO) 0.5 10^3/uL (0.0-1.0); MONOCYTES % (AUTO) 9 % (0-12); NEUTROPHILS # (AUTO) 2.7 10^3/uL (1.8-7.8); NEUTROPHILS % (AUTO) 54 % (42-75); PLATELET COUNT 135 10^3/uL (130-400); WHITE BLOOD COUNT 5.1 10^3/uL (4.3-11.0)
[2021-03-05 10:58] LABS: ALBUMIN 3.8 GM/DL (3.2-4.5); BILIRUBIN,TOTAL 0.5 MG/DL (0.1-1.0); CALCIUM 8.4 MG/DL (8.5-10.1); CREATININE SERUM 1.25 MG/DL (0.60-1.30); POTASSIUM 4.7 MMOL/L (3.6-5.0); TOTAL PROTEIN 6.7 GM/DL (6.4-8.2)
[2021-04-16 09:48] LABS: BASOPHILS % (AUTO) 0 % (0-10); MONOCYTES # (AUTO) 0.5 10^3/uL (0.0-1.0); MONOCYTES % (AUTO) 11 % (0-12)
[2021-04-16 09:49] LABS: EOSINOPHILS # (AUTO) 0.1 10^3/uL (0.0-0.3); EOSINOPHILS % (AUTO) 2 % (0-10); HEMATOCRIT 32 % (40-54); HEMOGLOBIN 11.3 g/dL (13.3-17.7); LYMPHOCYTES # (AUTO) 1.7 10^3/uL (1.0-4.0); LYMPHOCYTES % (AUTO) 36 % (12-44); MEAN CORPUSCULAR HEMOGLOBIN 33 pg (25-34); MEAN CORPUSCULAR HGB CONC 35 g/dL (32-36); MEAN CORPUSCULAR VOLUME 93 fL (80-99); MEAN PLATELET VOLUME 9.3 fL (9.0-12.2); NEUTROPHILS # (AUTO) 2.4 10^3/uL (1.8-7.8); NEUTROPHILS % (AUTO) 51 % (42-75); PLATELET COUNT 142 10^3/uL (130-400); WHITE BLOOD COUNT 4.7 10^3/uL (4.3-11.0)
[2021-05-28 10:01] LABS: BASOPHILS % (AUTO) 1 % (0-10); EOSINOPHILS # (AUTO) 0.1 10^3/uL (0.0-0.3); EOSINOPHILS % (AUTO) 2 % (0-10); HEMATOCRIT 32 % (40-54); LYMPHOCYTES # (AUTO) 1.5 10^3/uL (1.0-4.0); LYMPHOCYTES % (AUTO) 34 % (12-44); MEAN CORPUSCULAR HEMOGLOBIN 33 pg (25-34); MEAN CORPUSCULAR HGB CONC 35 g/dL (32-36); MEAN CORPUSCULAR VOLUME 94 fL (80-99); MONOCYTES # (AUTO) 0.4 10^3/uL (0.0-1.0); MONOCYTES % (AUTO) 10 % (0-12); NEUTROPHILS # (AUTO) 2.3 10^3/uL (1.8-7.8); NEUTROPHILS % (AUTO) 53 % (42-75); PLATELET COUNT 134 10^3/uL (130-400); WHITE BLOOD COUNT 4.3 10^3/uL (4.3-11.0)
== END 2021-06-03 | disposition home or self-care (01) ==
LOC: ONC 09:34
PROVIDERS: ATTEND Internal Medicine Hematology & Oncology
DX: C91.00 Acute lymphoblastic leukemia not having achieved remission (principal); D50.9 Iron deficiency anemia, unspecified; I25.10 Atherosclerotic heart disease of native coronary artery without angina pectoris; I10 Essential (primary) hypertension; E11.42 Type 2 diabetes mellitus with diabetic polyneuropathy; E78.5 Hyperlipidemia, unspecified; S72.002D Fracture of unspecified part of neck of left femur, subsequent encounter for closed fracture with routine healing; J44.9 Chronic obstructive pulmonary disease, unspecified; Z79.4 Long term (current) use of insulin; Z79.899 Other long term (current) drug therapy; Z92.21 Personal history of antineoplastic chemotherapy; Z96.642 Presence of left artificial hip joint; Z87.891 Personal history of nicotine dependence; Z79.82 Long term (current) use of aspirin
CPT/HCPCS: 80053; 83615; 85025; G0463; 36591; 82728; 83540; 83550

== ENCOUNTER 2021-05-30 06:32 | Outpatient (RCR) | payer MEDICARE | END 2021-06-01 | disposition home or self-care (01) | LOC: CR3 06:32 | PROVIDERS: ATTEND Internal Medicine | DX: Z29.8 Encounter for other specified prophylactic measures (principal) ==

== ENCOUNTER → 2021-06-12 | Outpatient (CLI) | payer MEDICARE | LOC: CARD 10:00 | PROVIDERS: ATTEND Physician Assistant | DX: I34.0 Nonrheumatic mitral (valve) insufficiency (principal); I51.7 Cardiomegaly; I51.89 Other ill-defined heart diseases; I50.9 Heart failure, unspecified | CPT/HCPCS: 93306 ==

== ENCOUNTER → 2021-06-27 | Outpatient (CLI) | payer MEDICARE ==
--- NOTE | 2021-06-27 10:30 | Diagnostic Imaging Report ---
PROCEDURE: MR imaging of the brain without contrast. TECHNIQUE: Multiplanar, multisequence MR imaging of the brain was performed without contrast. INDICATION: Aphasia; cerebral infarction. COMPARISON: CT head dated 06/18/2019. FINDINGS: Ventricles and sulci are diffusely prominent. There is mild T2 prolongation within the deep white matter of both cerebral hemispheres. There is also a focal region of increased T2 signal in the head of the left caudate nucleus with increased T2 signal in the adjacent white matter. There is, however, no restricted diffusion to indicate an acute infarct. There is a similar tiny focus of T2 signal within the left mid brain without restricted diffusion. Flow voids are seen in the expected locations at the skull base. There is no abnormal mass effect or shift of midline structures. Visualized paranasal sinuses are clear. IMPRESSION: Probable nonacute lacunar infarct in the head of the left caudate nucleus with associated microvascular ischemia in the adjacent white matter. There is no evidence of an acute infarct or other acute intracranial abnormality. Dictated by: Dictated on workstation # [id number]
== END ==
LOC: RAD 09:28
PROVIDERS: ATTEND Internal Medicine
DX: I63.9 Cerebral infarction, unspecified (principal)
CPT/HCPCS: 70551

== ENCOUNTER → 2021-07-02 | Outpatient (RCR) | payer MEDICARE | END | disposition home or self-care (01) | LOC: CR3 06-02 06:35 | PROVIDERS: ATTEND Internal Medicine | DX: Z29.8 Encounter for other specified prophylactic measures (principal) ==

== ENCOUNTER 2021-07-25 06:06 | Outpatient (RCR) | payer MEDICARE | END 2021-08-03 | disposition home or self-care (01) | LOC: CR3 06:06 | PROVIDERS: ATTEND Internal Medicine | DX: Z29.8 Encounter for other specified prophylactic measures (principal) ==

== ENCOUNTER 2021-08-20 19:01 | Observation (INO) | payer MEDICARE ==
[~2021-08-20] VITALS: Ht 180.3 cm; Wt 73.8 kg
[~2021-08-20 19:01] MED LIST changes: -TERB250T16 PO; +TERB250T88 PO
[2021-08-20] MEDS ORDERED: DOCUSATE SODIUM 100 MG (COLACE) CAP PO PRN (19:30)
[2021-08-20] MEDS ORDERED: ONDANSETRON 4 MG (ZOFRAN) ORAL DISSOLVE TAB PO PRN (19:30)
[2021-08-20] MEDS ORDERED: LOPERAMIDE 2 MG (IMODIUM) TABLET PO PRN (19:30)
[2021-08-20] MEDS ORDERED: MELATONIN 3 MG TABLET PO PRN (19:30)
[2021-08-20] MEDS ORDERED: diphenhydrAMINE 25 MG TAB (BENADRYL) PO PRN (19:30)
[2021-08-20] MEDS ORDERED: ONDANSETRON 4 MG/2 ML (SDV) Z0FRAN IVP PRN (19:30)
[2021-08-20] MEDS ORDERED: CALCIUM CARBONATE 500 MG (TUMS) TAB.CHEW PO PRN (19:30)
[2021-08-20] MEDS ORDERED: ACETAMINOPHEN 500 MG TAB (TYLENOL) PO PRN (19:30)
[2021-08-20] MEDS ORDERED: ADVAIR HFA 115/21 MCG INHALER 8 GM IH SCH (19:30)
[2021-08-20] MEDS ORDERED: methylPREDNISolone 125 MG (Solu-MEDROL) VIAL IVP SCH (19:30)
[2021-08-20] MEDS ORDERED: HYDROcodone/APAP 5 MG/325 MG (LORTAB) TAB PO PRN (19:30)
[2021-08-20] MEDS ORDERED: NS IV 1000 ML 1,000 ML IV SCH (19:30)
--- NOTE | 2021-08-20 19:39 | Progress Note ---
Progress Note Direct admit from home due to AECOPD and coughing constantly. 3 weeks ago had episode of bronchitis and AECOPD and completed Omnicef and prednisone. Admitted to [facility] ICU 11 for IV abx, CXR, IV steroids. ADALBERTO ARENAS DO Aug 20, 2021 19:39
[2021-08-20] MEDS ORDERED: RT-ALBUTEROL SULF 2.5 MG/3 ML PRE-MIX VIAL INH NR (19:45)
[2021-08-20] MEDS ORDERED: ACETAMINOPHEN 325 MG TABLET PO PRN (19:45)
[2021-08-20] MEDS ORDERED: inSUlin (REGULAR) HUMAN 1 UNIT/0.01 ML (CHARGE PER UNIT) SC PRN (19:45)
[2021-08-20 20:00] VITALS: BP 136/75
[2021-08-20] MEDS ORDERED: AZITHROMYCIN INJECTION 500 MG in NS (IVPB) 250 ML IV NR (20:00)
--- NOTE | 2021-08-20 20:05 | Diagnostic Imaging Report ---
EXAMINATION: Chest 1 view. HISTORY: COPD. COMPARISON: 03/27/2020. FINDINGS: Median sternotomy wires are aligned. There are coronary artery bypass graft markers. Right port catheter tip terminates in the superior vena cava. Lungs are hyperinflated. No edema or pneumonia. No pleural effusion or pneumothorax. Heart size is normal. IMPRESSION: Hyperinflated but clear lungs. Dictated by: Dictated on workstation # [id number]
[2021-08-20] MEDS ORDERED: CEFEPIME INJECTION 2,000 MG in WATER (STERILE) FOR INJECTION 20 ML IV SCH (21:00)
[2021-08-20] MEDS: RT--FLUTICASONE/SALMETEROL 113-14 (AIRDUO RespiCLICK) IH SCH (21:18)
[2021-08-20] MEDS: BENZONATATE 100 MG (TESSALON) CAPSULE PO SCH (21:28)
[2021-08-20] MEDS: SENNA W/DOCUSATE (SENOKOT S) TABLET PO SCH (21:28)
[2021-08-20] MEDS: CEFEPIME 1,000 MG/SWFI 10 ML IV PUSH IV SCH ×2 (21:28)
[2021-08-20] MEDS: ENOXAPARIN 40 MG/0.4 ML (LOVENOX) SYR SC SCH (21:29)
[2021-08-20] MEDS: HYDROcodone/Chlorpen 10MG/5 ML (TUSSIONEX) 5ML UDC PO SCH ×2 (21:29→22:08)
[2021-08-20] MEDS: inSUlin ASPART (NovoLOG) 1 UNIT/0.01 ML (CHARGE PER UNIT) SC SCH (21:30)
[2021-08-20 21:33] LABS: BASOPHILS % (AUTO) 1 % (0-10); MEAN CORPUSCULAR VOLUME 94 fL (80-99)
[2021-08-20 21:35] LABS: EOSINOPHILS # (AUTO) 0.1 10^3/uL (0.0-0.3); EOSINOPHILS % (AUTO) 2 % (0-10); HEMATOCRIT 31 % (40-54); LYMPHOCYTES # (AUTO) 1.8 10^3/uL (1.0-4.0); LYMPHOCYTES % (AUTO) 30 % (12-44); MEAN CORPUSCULAR HEMOGLOBIN 33 pg (25-34); MEAN CORPUSCULAR HGB CONC 35 g/dL (32-36); MEAN PLATELET VOLUME 9.1 fL (9.0-12.2); MONOCYTES # (AUTO) 0.6 10^3/uL (0.0-1.0); MONOCYTES % (AUTO) 10 % (0-12); NEUTROPHILS # (AUTO) 3.6 10^3/uL (1.8-7.8); NEUTROPHILS % (AUTO) 57 % (42-75); PLATELET COUNT 131 10^3/uL (130-400); WHITE BLOOD COUNT 6.2 10^3/uL (4.3-11.0)
[2021-08-20 21:48] LABS: ALBUMIN 3.6 GM/DL (3.2-4.5); BILIRUBIN,TOTAL 0.6 MG/DL (0.1-1.0); CALCIUM 8.2 MG/DL (8.5-10.1); CREATININE SERUM 1.5 MG/DL (0.60-1.30); POTASSIUM 4.4 MMOL/L (3.6-5.0); TOTAL PROTEIN 6.1 GM/DL (6.4-8.2)
[2021-08-21] VITALS (9 sets, daily range): BP systolic 105–134; BP diastolic 52–76
[2021-08-21] MEDS: methylPREDNISolone 125 MG (Solu-MEDROL) VIAL IVP SCH ×3 (03:55→15:28)
[2021-08-21] MEDS: CEFEPIME 1,000 MG/SWFI 10 ML IV PUSH IV SCH ×8 (03:55→20:55)
[2021-08-21 04:16] LABS: BASOPHILS % (AUTO) 0 % (0-10); EOSINOPHILS % (AUTO) 0 % (0-10); HEMATOCRIT 33 % (40-54); HEMOGLOBIN 11.4 g/dL (13.3-17.7); LYMPHOCYTES # (AUTO) 0.7 10^3/uL (1.0-4.0); LYMPHOCYTES % (AUTO) 12 % (12-44); MEAN CORPUSCULAR HEMOGLOBIN 33 pg (25-34); MEAN CORPUSCULAR HGB CONC 35 g/dL (32-36); MEAN CORPUSCULAR VOLUME 95 fL (80-99); MEAN PLATELET VOLUME 9.3 fL (9.0-12.2); MONOCYTES # (AUTO) 0.1 10^3/uL (0.0-1.0); MONOCYTES % (AUTO) 1 % (0-12); NEUTROPHILS # (AUTO) 4.8 10^3/uL (1.8-7.8); NEUTROPHILS % (AUTO) 86 % (42-75); PLATELET COUNT 115 10^3/uL (130-400); WHITE BLOOD COUNT 5.6 10^3/uL (4.3-11.0)
[2021-08-21 04:39] LABS: ALBUMIN 3.6 GM/DL (3.2-4.5); BILIRUBIN,TOTAL 0.6 MG/DL (0.1-1.0); CALCIUM 8.2 MG/DL (8.5-10.1); CREATININE SERUM 1.24 MG/DL (0.60-1.30); POTASSIUM 4.6 MMOL/L (3.6-5.0); TOTAL PROTEIN 6.2 GM/DL (6.4-8.2)
[2021-08-21] MEDS: inSUlin ASPART (NovoLOG) 1 UNIT/0.01 ML (CHARGE PER UNIT) SC SCH ×3 (05:51→15:44)
[2021-08-21] MEDS: RT-ALBUTEROL SULF 2.5 MG/3 ML PRE-MIX VIAL INH SCH ×5 (06:31→18:38)
[2021-08-21] MEDS: RT--FLUTICASONE/SALMETEROL 113-14 (AIRDUO RespiCLICK) IH SCH ×2 (06:32→18:43)
[2021-08-21] MEDS: BENZONATATE 100 MG (TESSALON) CAPSULE PO SCH ×3 (07:50→20:56)
[2021-08-21] MEDS: SENNA W/DOCUSATE (SENOKOT S) TABLET PO SCH ×2 (07:51→20:56)
[2021-08-21] MEDS: HYDROcodone/Chlorpen 10MG/5 ML (TUSSIONEX) 5ML UDC PO SCH ×2 (07:51→20:56)
[2021-08-21] MEDS: LACTOBACILLUS ACIDOPHILUS (PROBIOTIC) CAPSULE PO SCH ×3 (08:26→18:28)
[2021-08-21] MEDS ORDERED: SACUBITRIL/VALSARTAN 24/26 MG (ENTRESTO) TABLET PO SCH (09:00)
[2021-08-21] MEDS ORDERED: AtorvaSTATin TABLET 10 MG TABLET PO SCH (09:00)
[2021-08-21] MEDS ORDERED: GALANTAMINE 4 MG PO SCH (09:00)
[2021-08-21] MEDS ORDERED: LORATADINE (CLARITIN) 10 MG TAB PO SCH (09:00)
[2021-08-21] MEDS ORDERED: ASPIRIN E.C. 81 MG (ECOTRIN) TAB PO SCH (09:00)
[2021-08-21] MEDS ORDERED: MONT10TA32 PO (09:19)
[2021-08-21] MEDS ORDERED: LORA10TA7 PO (09:20)
[2021-08-21] MEDS ORDERED: ATOR20TA66 PO (09:33)
[2021-08-21] MEDS ORDERED: PATIENT MAY USE OWN MEDS, ALL MC SCH (09:45)
[2021-08-21] MEDS: ASPIRIN E.C. 81 MG (ECOTRIN) TAB PO SCH (10:43)
[2021-08-21] MEDS: LORATADINE (CLARITIN) 10 MG TAB PO SCH (10:44)
[2021-08-21] MEDS: SACUBITRIL/VALSARTAN 24/26 MG (ENTRESTO) TABLET PO SCH ×2 (10:45→20:59)
[2021-08-21] MEDS: GALANTAMINE PO SCH ×2 (10:46→21:00)
--- NOTE | 2021-08-21 13:51 | History & Physical ---
OMAR MARSHALL 08/21/21 1351: History of Present Illness History of Present Illness Reason for visit/HPI CC: Acute exacerbation of COPD HPI: Mr. Arenas is an 80 y/o male who presented to the hospital yesterday with a 3-4 day history of COPD exacerbation after attending the [employer] game. Patient reports that he has had a near constant cough for the last 3-4 days that got worse last night. He said it was a wet, productive cough with an associated runny nose. He denies any pain associated with his cough. He says that nothing he tried improved his cough. He tried cough syrup and nasal sprays to no avail. He reports nothing made it worse. He reports the cough was at a 7/10 severity for the first 3 days and last night it became a 10/10. Patient reports since arriving to the hospital and starting steroids and antibiotics his cough is va stly improved. Throughout the encounter he did not cough once. He says when he does cough occasionally it is a dry tickle. Date of Admission Aug 20, 2021 at 19:21 Date Seen by a Provider: Aug 21, 2021 Time Seen by a Provider: 08:21 I consulted on this patient on 08/21/21 13:44 Attending Physician Rosalinda Arenas DO Admitting Physician Rosalinda Arenas DO Consult Allergies and Home Medications Allergies Coded Allergies: No Known Drug Allergies (Verified , 09/19/08) Patient Home Medication List Aspirin (Aspirin EC) 81 Mg Tablet.dr, 81 MG PO DAILY, (Reported) Entered as Reported by: MARK NAVAS on 10/17/18 1442 Last Action: Reviewed Atorvastatin Calcium (Atorvastatin Calcium) 20 Mg Tablet, 20 MG PO DAILY, (Reported) Entered as Reported by: GIOVANNI HANSON on 08/21/21 0933 Last Action: Reviewed Carvedilol (Carvedilol) 3.125 Mg Tablet, 3.125 MG PO BID, (Reported) Entered as Reported by: MALLORY RODRIGUEZ on 08/28/16 1223 Last Action: Reviewed Fluticasone/Salmeterol (Advair 250-50 Diskus) 1 Each Blst.w.dev, 1 PUFF IH DAILY, (Reported) Entered as Reported by: MALLORY RODRIGUEZ on 08/28/16 1241 Last Action: Reviewed Galantamine HBr (Galantamine HBr) 8 Mg Tablet, 4 MG PO BID, (Reported) Entered as Reported by: MARK NAVAS on 10/17/18 1138 Last Action: Reviewed Loratadine (Loratadine) 10 Mg Tablet, 10 MG PO DAILY, (Reported) Entered as Reported by: GIOVANNI HANSON on 08/21/21919 Last Action: Reviewed Montelukast Sodium (Montelukast Sodium) 10 Mg Tablet, 10 MG PO HS, (Reported) Entered as Reported by: GIOVANNI HANSON on 08/21/21918 Last Action: Reviewed Sacubitril/Valsartan (Entresto 24 mg-26 mg Tablet) 1 Each Tablet, 1 TAB PO BID, (Reported) Entered as Reported by: MARK NAVAS on 10/17/18 112 Last Action: Reviewed Discontinued Medications Albuterol Sulfate (Albuterol Sulfate) 2.5 Mg/3 Ml Vial.neb, 2.5 MG INH TID Discontinued Reason: No Longer Taking Prescribed by: ROSALINDA ARENAS on 10/19/18920 Last Action: Discontinued Atorvastatin Calcium (Lipitor) 10 Mg Tablet, 10 MG PO DAILY, (Reported) Discontinued Reason: Duplicate Order Entered as Reported by: MARK NAVAS on 10/17/18 1442 Last Action: Discontinued Cefdinir (Cefdinir) 300 Mg Capsule, 300 MG PO BID, (Reported) Discontinued Reason: No Longer Taking Entered as Reported by: PEDRO LUIS MONTERO on 03/27/20 1335 Last Action: Discontinued Dextrose (Glucose) 4 Gm Tab.chew, 4 GM PO UD PRN for BS<120, (Reported) Discontinued Reason: No Longer Taking Entered as Reported by: MARK NAVAS on 02/24/19 0909 Last Action: Discontinued Fluticasone Propionate (Fluticasone Propionate) 16 Gm [place].susp, 2 SPRAY NS DAILY Discontinued Reason: No Longer Taking Prescribed by: ROSALINDA ARENAS on 10/19/18920 Last Action: Discontinued Hydrocodone Bit/Acetaminophen (Lortab 5 Mg Tablet) 1 Tab Tab, 1 TAB PO Q4H PRN for PAIN-MODERATE Discontinued Reason: No Longer Taking Prescribed by: ROSALINDA ARENAS on 07/05/19 0857 Last Action: Discontinued Insulin Glargine,Hum.rec.anlog (Lantus Solostar) 100 Unit/1 Ml Insuln.pen, 15 UNITS SC HS, (Reported) Discontinued Reason: No Longer Taking Entered as Reported by: MARK NAVAS on 02/24/19908 Last Action: Discontinued Insulin Lispro (Humalog) 100 Unit/1 Ml Cartridge, 9 UNIT SQ, (Reported) Discontinued Reason: No Longer Taking Entered as Reported by: PEDRO LUIS MONTERO on 03/27/201334 Last Action: Discontinued Ipratropium Oden (Ipratropium Oden) 0.2 Mg/1 Ml Solution, 0.2 MG IH PRN, (Reported) Discontinued Reason: No Longer Taking Entered as Reported by: PEDRO LUIS MONTERO on 03/27/201334 Last Action: Discontinued Loratadine (Loratadine) 10 Mg Tablet, 10 MG PO DAILY Discontinued Reason: No Longer Taking Prescribed by: ROSALINDA ARENAS on 10/19/18920 Last Action: Discontinued Metronidazole (Flagyl) 500 Mg Tablet, 500 MG PO TID Discontinued Reason: No Longer Taking Prescribed by: ROSALINDA ARENAS on 03/28/20721 Last Action: Discontinued Miconazole (Miconazole) 5 Gm Powder, 5 GM MC BID Discontinued Reason: No Longer Taking Prescribed by: ROSALINDA ARENAS on 03/28/20721 Last Action: Discontinued Montelukast Sodium (Montelukast Sodium) 10 Mg Tablet, 10 MG PO HS Discontinued Reason: Duplicate Order Prescribed by: ROSALINDA ARENAS on 10/19/18920 Last Action: Discontinued Nitroglycerin (Nitroglycerin) 0.4 Mg Tab.subl, 0.4 MG SL UD PRN for CHEST PAIN, (Reported) Discontinued Reason: No Longer Taking Entered as Reported by: PEDRO LUIS MONTERO on 03/27/201334 Last Action: Discontinued Pantoprazole Sodium (Pantoprazole Sodium) 40 Mg Tablet.dr, 40 MG PO DAILY Discontinued Reason: No Longer Taking Prescribed by: ROSALINDA ARENAS on 10/19/18920 Last Action: Discontinued Terbinafine HCl (Terbinafine HCl) 250 Mg Tablet, 250 MG PO DAILY Discontinued Reason: No Longer Taking Prescribed by: ROSALINDA ARENAS on 03/28/20721 Last Action: Discontinued Past Kbhsuxu-Umsnuh-Emgkte Hx Patient Social History Tobacco Use?: Yes Smoking Status: Former Smoker (Quit 35 years ago) Smokeless Tobacco Frequency: Never a User Use of E-Cig and/or Vaping dev: No Substance use?: No Alcohol Use?: Yes Alcohol Frequency: Once in a while Pt feels they are or have been: No Immunizations Up To Date Date of Influenza Vaccine: Jul 18, 2021 First/Initial COVID19 Vaccinat: 10/30/20 Second COVID19 Vaccination Henry: 11/29/20 Tetanus Booster (TDap): Unknown Hepatitis A: No Hepatitis B: No PED Vaccines UTD: No Date of Pneumonia Vaccine: Aug 29, 2018 Seasonal Allergies Seasonal Allergies: No Current Status Advance Directives: Yes Advance Directive Location: Home Communicates: Verbally Primary Language: Irish Preferred Spoken Language: Irish Is interpretation needed?: No Sensory deficits: Vision impairment Implanted or Applied Medical D: Port-a-cath Past Medical History Surgeries: Abdominal, CABG, Gallbladder, Open Heart Surgery COPD Currently Using CPAP: No Currently Using BIPAP: No Atrial Fibrillation, Coronary Artery Disease, Heart Attack, High Cholesterol, Hypertension Dementia, Neuropathy Sexually Transmitted Disease: No HIV/AIDS: No Prostate Problems, Renal Failure Gastroesophageal Reflux, Gastrointestinal Bleed Arthritis Diabetes, Insulin dep Cataract Loss of Vision: Denies Hearing Impairment: Denies Leukemia, Skin Did You Recieve Any Treatments: Yes What Type of Treatment Did You: Chemotherapy Blood Disorders: Yes (LEUKEMIA) Adverse Reaction/Blood Tranf: No Family Medical History Cardiovascular disease G8 BROTHER Diabetes mellitus 19 MOTHER G8 BROTHER Hypertension 19 MOTHER Heart Disease, CAD Over 55 Years Old, Diabetes, Hypertension, Vascular Disease Review of Systems Constitutional: No chills, No fever Respiratory: cough (Small, dry cough); No dyspnea on exertion, No wheezing Gastrointestinal: No abdominal pain, No constipation, No diarrhea, No nausea, No vomiting Genitourinary: No dysuria, No frequency Musculoskeletal: No joint pain, No muscle pain Psychiatric/Neurological: Denies Headache, Denies Weakness Physical Exam Vital Signs Vital Signs - First Documented 08/20/21 08/20/21 08/20/21 19:35 19:59 20:00 Temp 36.6 Pulse 63 Resp 12 B/P (MAP) 136/75 (95) Pulse Ox 98 O2 Delivery Room Air Capillary Refill : Height, Weight, BMI Height: 5'11.00" Weight: 163lbs. 7.4oz. 74.128859ex; 22.70 BMI Method:Stated General Appearance: No Apparent Distress (Patient resting comfortably in bed an d able to converse normally), WD/WN HEENT: PERRL/EOMI, Moist Mucous Membranes Neck: Normal Inspection, Non Tender Respiratory: Chest Non Tender, Lungs Clear, Normal Breath Sounds, No Accessory Muscle Use, No Respiratory Distress Cardiovascular: Regular Rate, Rhythm, No Edema, No Murmur, Normal Peripheral Pulses Gastrointestinal: Normal Bowel Sounds, Non Tender, Soft Extremity: Normal Capillary Refill, Normal Inspection, Non Tender, No Calf Tenderness Neurologic/Psychiatric: Alert, Oriented x3, No Motor/Sensory Deficits, Normal Mood/Affect, 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 Continue home medications. Plan observation overnight, plan is to discharge tomorrow. ROSALINDA ARENAS DO 08/22/21 0517: History of Present Illness History of Present Illness Reason for visit/HPI Chief complaint: Exacerbation of COPD with bronchitis History of present illness: This is an 80-year-old white male with a history of ischemic cardiomyopathy and atrial flutter status post ablation remotely followed by Dr. Foreman with a history of insulin-dependent diabetes, chronic renal insufficiency stage II, hyperlipidemia and COPD from remote history of smoking who presents to the ICU stepdown unit from home due to exacerbation of COPD with bronchitis. 3 weeks ago he completed Omnicef and prednisone taper dose with good improvement. He has been fully vaccinated against Covid status post third booster shot 1 month ago. He is also vaccinated against flu. Chest x-ray is clear but bronchitis will be treated with IV antibiotics and he will be giving IV steroids with insulin regimen for hyperglycemia Allergies and Home Medications Allergies Coded Allergies: No Known Drug Allergies (Verified , 09/19/08) Patient Home Medication List Home Medication List Reviewed: Yes Aspirin (Aspirin EC) 81 Mg Tablet, 81 MG PO DAILY, (Reported) Entered as Reported by: MARK NAVAS on 10/17/18 8184 Last Action: Reviewed Atorvastatin Calcium (Atorvastatin Calcium) 20 Mg Tablet, 20 MG PO DAILY, (Reported) Entered as Reported by: GIOVANNI HANSON on 08/21/21 0933 Last Action: Reviewed Carvedilol (Carvedilol) 3.125 Mg Tablet, 3.125 MG PO BID, (Reported) Entered as Reported by: MALLORY RODRIGUEZ on 08/28/16 1223 Last Action: Reviewed Fluticasone/Salmeterol (Advair 250-50 Diskus) 1 Each Blst.w.dev, 1 PUFF IH DAILY, (Reported) Entered as Reported by: MALLORY RODRIUGEZ on 08/28/16 1241 Last Action: Reviewed Galantamine HBr (Galantamine HBr) 8 Mg Tablet, 4 MG PO BID, (Reported) Entered as Reported by: MARK NAVAS on 10/17/18 1138 Last Action: Reviewed Loratadine (Loratadine) 10 Mg Tablet, 10 MG PO DAILY, (Reported) Entered as Reported by: GIOVANNI HANSON on 08/21/21 0920 Last Action: Reviewed Montelukast Sodium (Montelukast Sodium) 10 Mg Tablet, 10 MG PO HS, (Reported) Entered as Reported by: GIOVANNI HANSON on 08/21/2119 Last Action: Reviewed Sacubitril/Valsartan (Entresto 24 mg-26 mg Tablet) 1 Each Tablet, 1 TAB PO BID, (Reported) Entered as Reported by: MARK NAVAS on 10/17/18 1128 Last Action: Reviewed Discontinued Medications Albuterol Sulfate (Albuterol Sulfate) 2.5 Mg/3 Ml Vial.neb, 2.5 MG INH TID Discontinued Reason: No Longer Taking Prescribed by: ROSALINDA ARENAS on 10/19/18 0921 Last Action: Discontinued Atorvastatin Calcium (Lipitor) 10 Mg Tablet, 10 MG PO DAILY, (Reported) Discontinued Reason: Duplicate Order Entered as Reported by: MARK NAVAS on 10/17/18 1442 Last Action: Discontinued Cefdinir (Cefdinir) 300 Mg Capsule, 300 MG PO BID, (Reported) Discontinued Reason: No Longer Taking Entered as Reported by: PEDRO LUIS MONTERO on 03/27/20 1335 Last Action: Discontinued Dextrose (Glucose) 4 Gm Tab.chew, 4 GM PO UD PRN for BS<120, (Reported) Discontinued Reason: No Longer Taking Entered as Reported by: MARK NAVAS on 02/24/19908 Last Action: Discontinued Fluticasone Propionate (Fluticasone Propionate) 16 Gm [place].susp, 2 SPRAY NS DAILY Discontinued Reason: No Longer Taking Prescribed by: ROSALINDA ARENAS on 10/19/18920 Last Action: Discontinued Hydrocodone Bit/Acetaminophen (Lortab 5 Mg Tablet) 1 Tab Tab, 1 TAB PO Q4H PRN for PAIN-MODERATE Discontinued Reason: No Longer Taking Prescribed by: ROSALINDA ARENAS on 07/05/19856 Last Action: Discontinued Insulin Glargine,Hum.rec.anlog (Lantus Solostar) 100 Unit/1 Ml Insuln.pen, 15 UNITS SC HS, (Reported) Discontinued Reason: No Longer Taking Entered as Reported by: MARK NAVAS on 02/24/19908 Last Action: Discontinued Insulin Lispro (Humalog) 100 Unit/1 Ml Cartridge, 9 UNIT SQ, (Reported) Discontinued Reason: No Longer Taking Entered as Reported by: PEDRO LUIS MONTERO on 03/27/201334 Last Action: Discontinued Ipratropium Oden (Ipratropium Oden) 0.2 Mg/1 Ml Solution, 0.2 MG IH PRN, (Reported) Discontinued Reason: No Longer Taking Entered as Reported by: PEDRO LUIS MONTERO on 03/27/201334 Last Action: Discontinued Loratadine (Loratadine) 10 Mg Tablet, 10 MG PO DAILY Discontinued Reason: No Longer Taking Prescribed by: ROSALINDA ARENAS on 10/19/18920 Last Action: Discontinued Metronidazole (Flagyl) 500 Mg Tablet, 500 MG PO TID Discontinued Reason: No Longer Taking Prescribed by: ROSALINDA ARENAS on 03/28/20721 Last Action: Discontinued Miconazole (Miconazole) 5 Gm Powder, 5 GM MC BID Discontinued Reason: No Longer Taking Prescribed by: ROSALIDNA ARENAS on 03/28/20721 Last Action: Discontinued Montelukast Sodium (Montelukast Sodium) 10 Mg Tablet, 10 MG PO HS Discontinued Reason: Duplicate Order Prescribed by: ROSALINDA ARENAS on 10/19/18920 Last Action: Discontinued Nitroglycerin (Nitroglycerin) 0.4 Mg Tab.subl, 0.4 MG SL UD PRN for CHEST PAIN, (Reported) Discontinued Reason: No Longer Taking Entered as Reported by: PEDRO LUIS MONTERO on 03/27/20 1335 Last Action: Discontinued Pantoprazole Sodium (Pantoprazole Sodium) 40 Mg Tablet.dr, 40 MG PO DAILY Discontinued Reason: No Longer Taking Prescribed by: ROSALINDA ARENAS on 10/19/18 0921 Last Action: Discontinued Terbinafine HCl (Terbinafine HCl) 250 Mg Tablet, 250 MG PO DAILY Discontinued Reason: No Longer Taking Prescribed by: ROSALINDA ARENAS on 03/28/20 0722 Last Action: Discontinued Past Ixurvxi-Tnheqs-Sdpsqc Hx Patient Social History Marrital Status: Employed/Student: employed (See [employer]) Smoking Status: Former Smoker (Quit 35 years ago) Past Medical History Surgeries: CABG Pneumonia, COPD Coronary Artery Disease, High Cholesterol, Hypertension Dementia Renal Failure Chronic Back Pain Diabetes, Insulin dep Leukemia What Type of Treatment Did You: Chemotherapy Family Medical History Cardiovascular disease G8 BROTHER Diabetes mellitus 19 MOTHER G8 BROTHER Hypertension 19 MOTHER Review of Systems Constitutional: see HPI, malaise, weakness EENTM: no symptoms reported Respiratory: cough (Small, dry cough) Cardiovascular: no symptoms reported Gastrointestinal: no symptoms reported Genitourinary: no symptoms reported Musculoskeletal: no symptoms reported Skin: no symptoms reported Psychiatric/Neurological: No Symptoms Reported All Other Systems Reviewed Negative Unless Noted: Yes Physical Exam General Appearance: No Apparent Distress, WD/WN, Chronically ill, Thin Eyes: Bilateral Eye Normal Inspection, Bilateral Eye PERRL, Bilateral Eye EOMI HEENT: PERRL/EOMI, Normal ENT Inspection, Pharynx Normal Neck: Full Range of Motion, Normal Inspection, Non Tender, Supple, Carotid Bruit Respiratory: Chest Non Tender, Lungs Clear, No Accessory Muscle Use, No Respiratory Distress, Decreased Breath Sounds Cardiovascular: Regular Rate, Rhythm, No Edema, No Gallop, No JVD, No Murmur, Normal Peripheral Pulses Gastrointestinal: Normal Bowel Sounds, No Organomegaly, No Pulsatile Mass, Non Tender, Soft Back: Normal Inspection, No CVA Tenderness, No Vertebral Tenderness Extremity: Normal Capillary Refill, Normal Inspection, Normal Range of Motion, Non Tender, No Calf Tenderness, No Pedal Edema Neurologic/Psychiatric: Alert, Oriented x3, No Motor/Sensory Deficits, Normal Mood/Affect Skin: Normal Color, Warm/Dry Lymphatic: No Adenopathy Assessment/Plan Assessment and Plan Assessment: Exacerbation of COPD Acute bacterial bronchitis with productive cough Diabetes insulin-dependent History of acute lymphocytic leukemia in remission CAD previous CABG Ischemic cardiomyopathy Chronic kidney disease stage II Hyperlipidemia Hypertension Plan: IV antibiotics IV steroids Moved to floor Problems: (1) COPD with acute exacerbation Status: Resolved Admission Diagnosis Admission Status: Observation Supervisory-Addendum Brief Verification & Attestation Participated in pt care: history, MDM, physical Personally performed: exam, history, MDM, supervision of care Care discussed with: Medical Student Procedures: n/a Results interpretation: Verified all documentation Verification and Attestation of Medical Student E/M Service A medical student performed and documented this service in my presence. I reviewed and verified all information documented by the medical student and made modifications to such information, when appropriate. I personally performed the physical exam and medical decision making. Rosalinda Arenas, Aug 22, 2021,05:17 OMAR MARSHALL Aug 21, 2021 13:51 ROSALINDA ARENAS DO Aug 22, 2021 05:17
[2021-08-21] MEDS ORDERED: AZITHROMYCIN INJECTION 250 MG in NS (IVPB) 250 ML IV SCH (15:00)
[2021-08-21] MEDS: ENOXAPARIN 40 MG/0.4 ML (LOVENOX) SYR SC SCH (20:56)
[2021-08-21] MEDS: inSUlin (REGULAR) HUMAN 1 UNIT/0.01 ML (CHARGE PER UNIT) SC SCH (20:57)
[2021-08-21] MEDS ORDERED: MONTELUKAST 10 MG (SINGULAIR) TAB PO SCH (21:00)
[2021-08-22] MEDS: CEFEPIME 1,000 MG/SWFI 10 ML IV PUSH IV SCH ×4 (03:17→08:13)
[2021-08-22 03:51] VITALS: BP 100/53
[2021-08-22 04:28] LABS: BASOPHILS % (AUTO) 0 % (0-10); EOSINOPHILS % (AUTO) 0 % (0-10); HEMATOCRIT 31 % (40-54); HEMOGLOBIN 10.6 g/dL (13.3-17.7); LYMPHOCYTES # (AUTO) 1.2 10^3/uL (1.0-4.0); LYMPHOCYTES % (AUTO) 11 % (12-44); MEAN CORPUSCULAR HEMOGLOBIN 33 pg (25-34); MEAN CORPUSCULAR HGB CONC 35 g/dL (32-36); MEAN CORPUSCULAR VOLUME 94 fL (80-99); MEAN PLATELET VOLUME 9.2 fL (9.0-12.2); MONOCYTES # (AUTO) 0.6 10^3/uL (0.0-1.0); MONOCYTES % (AUTO) 5 % (0-12); NEUTROPHILS # (AUTO) 8.9 10^3/uL (1.8-7.8); NEUTROPHILS % (AUTO) 83 % (42-75); PLATELET COUNT 141 10^3/uL (130-400); WHITE BLOOD COUNT 10.8 10^3/uL (4.3-11.0)
[2021-08-22 05:05] LABS: ALBUMIN 3.5 GM/DL (3.2-4.5); BILIRUBIN,TOTAL 0.7 MG/DL (0.1-1.0); CALCIUM 8.3 MG/DL (8.5-10.1); CREATININE SERUM 1.19 MG/DL (0.60-1.30); POTASSIUM 4.2 MMOL/L (3.6-5.0); TOTAL PROTEIN 5.9 GM/DL (6.4-8.2)
[2021-08-22] MEDS: inSUlin (REGULAR) HUMAN 1 UNIT/0.01 ML (CHARGE PER UNIT) SC SCH (06:36)
[2021-08-22] MEDS: RT-ALBUTEROL SULF 2.5 MG/3 ML PRE-MIX VIAL INH SCH (06:54)
[2021-08-22] MEDS: RT--FLUTICASONE/SALMETEROL 113-14 (AIRDUO RespiCLICK) IH SCH (06:57)
[2021-08-22] MEDS ORDERED: methylPREDNISolone 40 MG/ML (Solu-MEDROL) VIAL IV SCH (07:00)
[2021-08-22 08:04] VITALS: BP 133/74
[2021-08-22] MEDS: BENZONATATE 100 MG (TESSALON) CAPSULE PO SCH (08:12)
[2021-08-22] MEDS: SENNA W/DOCUSATE (SENOKOT S) TABLET PO SCH (08:12)
[2021-08-22] MEDS: LACTOBACILLUS ACIDOPHILUS (PROBIOTIC) CAPSULE PO SCH (08:13)
[2021-08-22] MEDS: HYDROcodone/Chlorpen 10MG/5 ML (TUSSIONEX) 5ML UDC PO SCH (08:14)
[2021-08-22] MEDS: LORATADINE (CLARITIN) 10 MG TAB PO SCH (09:05)
[2021-08-22] MEDS: GALANTAMINE PO SCH (09:05)
[2021-08-22] MEDS: ASPIRIN E.C. 81 MG (ECOTRIN) TAB PO SCH (09:06)
[2021-08-22] MEDS: SACUBITRIL/VALSARTAN 24/26 MG (ENTRESTO) TABLET PO SCH (09:06)
[2021-08-22] MEDS ORDERED: HYDR473S61 PO (09:15)
[2021-08-22] MEDS ORDERED: AZIT250T12 PO (09:15)
[2021-08-22] MEDS ORDERED: INSU100I14 SQ (09:15)
[2021-08-22] MEDS ORDERED: RISP0.5T21 PO (09:15)
[2021-08-22] MEDS ORDERED: LACT1CAP7 PO (09:15)
[2021-08-22] MEDS ORDERED: INSU100V5 SQ (09:15)
[2021-08-22] MEDS ORDERED: BENZ100C18 PO (09:15)
[2021-08-22] MEDS ORDERED: FLUT1DIS26 IH (09:15)
[2021-08-22] MEDS ORDERED: PRED10TA22 PO (09:15)
[2021-08-22] MEDS ORDERED: ALBU2.5V4 INH (09:15)
[2021-08-22] MEDS ORDERED: OLAN5TAB3 PO (09:15)
--- NOTE | 2021-08-22 09:16 | Discharge Summary ---
Diagnosis/Chief Complaint Date of Admission Aug 20, 2021 at 19:21 Date of Discharge Discharge Date: Aug 22, 2021 Discharge Diagnosis Acute exacerbation of COPD Bacterial bronchitis Delirium from steroids Mild vascular dementia Diabetes insulin requiring CAD previous bypass Acute lymphocytic leukemia in remission Acute kidney injury now resolved Reason Hospital Visit Chief complaint: Exacerbation of COPD with bronchitis History of present illness: This is an 80-year-old white male with a history of ischemic cardiomyopathy and atrial flutter status post ablation remotely followed by Dr. Foreman with a history of insulin-dependent diabetes, chronic renal insufficiency stage II, hyperlipidemia and COPD from remote history of smoking who presents to the ICU stepdown unit from home due to exacerbation of COPD with bronchitis. 3 weeks ago he completed Omnicef and prednisone taper dose with good improvement. He has been fully vaccinated against Covid status post third booster shot 1 month ago. He is also vaccinated against flu. Chest x-ray is clear but bronchitis will be treated with IV antibiotics and he will be giving IV steroids with insulin regimen for hyperglycemia Discharge Summary Discharge Physical Examination Allergies: Coded Allergies: No Known Drug Allergies (Verified , 09/19/08) Vitals & I&Os Vital Signs Date Time Temp Pulse Resp B/P (MAP) Pulse Ox O2 Delivery O2 Flow Rate FiO2 08/22/21 10:20 36.6 91 20 133/74 93 Room Air General Appearance: Alert, Oriented X3, Cooperative Respiratory: Clear to Auscultation Cardiovascular: Regular Rate Neuro: Normal Gait, Normal Speech, Strength at 5/5 X4 Ext Psych/Mental Status: Mental Status NL, Other (Noted patient having mild visual hallucinations) Hospital Course Was the Problem List Reviewed?: Yes Hospital course: Joseph was admitted to ICU on 08/20/21 for acute COPD exacerbation. He reported a productive cough. CXR revealed clear, hyperinflated lungs. Pt was treated with cefepime and methylprednisolone. His cough resolved by the 2nd day and he was transferred to 4th floor. His blood sugars were initially uncontrolled, reaching up to 462 on the 2nd day, but were brought down to 135 by time of discharge through insulin management. In the morning of 08/22/2011, he had accident where he lost balance scraped his R forearm when trying to get out of bed; the scrape was relatively superficial and was dressed by the nurse. No other acute events/issues during his stay. No questions/concerns at time of discharge. RUPA DONG MED STUDENT Labs (last 24 hrs) Laboratory Tests 08/20/21 21:01: Glucometer 227H 08/20/21 21:16: White Blood Count 6.2, Red Blood Count 3.33L, Hemoglobin 11.0L, Hematocrit 31L, Mean Corpuscular Volume 94, Mean Corpuscular Hemoglobin 33, Mean Corpuscular Hemoglobin Concent 35, Red Cell Distribution Width 13.0, Platelet Count 131, Mean Platelet Volume 9.1, Immature Granulocyte % (Auto) 1, Neutrophils (%) (Auto) 57, Lymphocytes (%) (Auto) 30, Monocytes (%) (Auto) 10, Eosinophils (%) (Auto) 2, Basophils (%) (Auto) 1, Neutrophils # (Auto) 3.6, Lymphocytes # (Auto) 1.8, Monocytes # (Auto) 0.6, Eosinophils # (Auto) 0.1, Basophils # (Auto) 0.0, Immature Granulocyte # (Auto) 0.0, Percent Immature Platelet Fraction 1.8, Sodium Level 137, Potassium Level 4.4, Chloride Level 105, Carbon Dioxide Level 22, Anion Gap 10, Blood Urea Nitrogen 25H, Creatinine 1.50H, Estimat Glomerular Filtration Rate 45, BUN/Creatinine Ratio 17, Glucose Level 238H, Lactic Acid Level 0.89, Calcium Level 8.2L, Corrected Calcium 8.5, Total Bilirubin 0.6, Aspartate Amino Transf (AST/SGOT) 13, Alanine Aminotransferase (ALT/SGPT) 10, Alkaline Phosphatase 70, B-Type Natriuretic Peptide 89.7, Total Protein 6.1L, Albumin 3.6, Procalcitonin 0.04 08/21/21 04:00: White Blood Count 5.6, Red Blood Count 3.46L, Hemoglobin 11.4L, Hematocrit 33L, Mean Corpuscular Volume 95, Mean Corpuscular Hemoglobin 33, Mean Corpuscular Hemoglobin Concent 35, Red Cell Distribution Width 12.8, Platelet Count 115L, Mean Platelet Volume 9.3, Immature Granulocyte % (Auto) 1, Neutrophils (%) (Auto) 86H, Lymphocytes (%) (Auto) 12, Monocytes (%) (Auto) 1, Eosinophils (%) (Auto) 0, Basophils (%) (Auto) 0, Neutrophils # (Auto) 4.8, Lymphocytes # (Auto) 0.7L, Monocytes # (Auto) 0.1, Eosinophils # (Auto) 0.0, Basophils # (Auto) 0.0, Immature Granulocyte # (Auto) 0.0, Sodium Level 137, Potassium Level 4.6, Chloride Level 105, Carbon Dioxide Level 19L, Anion Gap 13, Blood Urea Nitrogen 24H, Creatinine 1.24, Estimat Glomerular Filtration Rate 56, BUN/Creatinine Ratio 19, Glucose Level 290H, Calcium Level 8.2L, Corrected Calcium 8.5, Total Bilirubin 0.6, Aspartate Amino Transf (AST/SGOT) 13, Alanine Aminotransferase (ALT/SGPT) 10, Alkaline Phosphatase 62, Total Protein 6.2L, Albumin 3.6 08/21/21 11:21: Glucometer 345H 08/21/21 15:38: Glucometer 462*H 08/21/21 20:02: Glucometer 398H 08/22/21 04:20: White Blood Count 10.8, Red Blood Count 3.24L, Hemoglobin 10.6L, Hematocrit 31L, Mean Corpuscular Volume 94, Mean Corpuscular Hemoglobin 33, Mean Corpuscular Hemoglobin Concent 35, Red Cell Distribution Width 12.8, Platelet Count 141, Mean Platelet Volume 9.2, Immature Granulocyte % (Auto) 1, Neutrophils (%) (Auto) 83H, Lymphocytes (%) (Auto) 11L, Monocytes (%) (Auto) 5, Eosinophils (%) (Auto) 0, Basophils (%) (Auto) 0, Neutrophils # (Auto) 8.9H, Lymphocytes # (Auto) 1.2, Monocytes # (Auto) 0.6, Eosinophils # (Auto) 0.0, Basophils # (Auto) 0.0, Immature Granulocyte # (Auto) 0.1, Sodium Level 138, Potassium Level 4.2, Chloride Level 108H, Carbon Dioxide Level 19L, Anion Gap 11, Blood Urea Nitrogen 33H, Creatinine 1.19, Estimat Glomerular Filtration Rate 59, BUN/Creatinine Rat io 28, Glucose Level 111H, Calcium Level 8.3L, Corrected Calcium 8.7, Total Bilirubin 0.7, Aspartate Amino Transf (AST/SGOT) 14, Alanine Aminotransferase (ALT/SGPT) 10, Alkaline Phosphatase 50, Total Protein 5.9L, Albumin 3.5 08/22/21 05:43: Glucometer 135H Microbiology 08/20/21 Blood Culture - Preliminary, Resulted No growth Pending Labs Microbiology Date/Time Source Procedure Growth Status 08/20/21 21:16 Port Not Otherwise Specified Blood Culture - Preliminary No growth Resulted 08/20/21 21:12 Peripheral Lt Hand Blood Culture - Preliminary No growth Resulted Laboratory Tests 08/20/21 21:01: Glucometer 227 08/20/21 21:16: White Blood Count 6.2, Red Blood Count 3.33, Hemoglobin 11.0, Hematocrit 31, Mean Corpuscular Volume 94, Mean Corpuscular Hemoglobin 33, Mean Corpuscular Hemoglobin Concent 35, Red Cell Distribution Width 13.0, Platelet Count 131, Mean Platelet Volume 9.1, Immature Granulocyte % (Auto) 1, Neutrophils (%) (Auto) 57, Lymphocytes (%) (Auto) 30, Monocytes (%) (Auto) 10, Eosinophils (%) (Auto) 2, Basophils (%) (Auto) 1, Neutrophils # (Auto) 3.6, Lymphocytes # (Auto) 1.8, Monocytes # (Auto) 0.6, Eosinophils # (Auto) 0.1, Basophils # (Auto) 0.0, Immature Granulocyte # (Auto) 0.0, Percent Immature Platelet Fraction 1.8, Sodium Level 137, Potassium Level 4.4, Chloride Level 105, Carbon Dioxide Level 22, Anion Gap 10, Blood Urea Nitrogen 25, Creatinine 1.50, Estimat Glomerular Filtration Rate 45, BUN/Creatinine Ratio 17, Glucose Level 238, Lactic Acid Level 0.89, Calcium Level 8.2, Corrected Calcium 8.5, Total Bilirubin 0.6, Aspartate Amino Transf (AST/SGOT) 13, Alanine Aminotransferase (ALT/SGPT) 10, Alkaline Phosphatase 70, B-Type Natriuretic Peptide 89.7, Total Protein 6.1, Albumin 3.6, Procalcitonin 0.04 08/21/21 04:00: White Blood Count 5.6, Red Blood Count 3.46, Hemoglobin 11.4, Hematocrit 33, Mean Corpuscular Volume 95, Mean Corpuscular Hemoglobin 33, Mean Corpuscular Hemoglobin Concent 35, Red Cell Distribution Width 12.8, Platelet Count 115, Mean Platelet Volume 9.3, Immature Granulocyte % (Auto) 1, Neutrophils (%) (Auto) 86, Lymphocytes (%) (Auto) 12, Monocytes (%) (Auto) 1, Eosinophils (%) (Auto) 0, Basophils (%) (Auto) 0, Neutrophils # (Auto) 4.8, Lymphocytes # (Auto) 0.7, Monocytes # (Auto) 0.1, Eosinophils # (Auto) 0.0, Basophils # (Auto) 0.0, Immature Granulocyte # (Auto) 0.0, Sodium Level 137, Potassium Level 4.6, Chloride Level 105, Carbon Dioxide Level 19, Anion Gap 13, Blood Urea Nitrogen 24, Creatinine 1.24, Estimat Glomerular Filtration Rate 56, BUN/Creatinine Ratio 19, Glucose Level 290, Calcium Level 8.2, Corrected Calcium 8.5, Total Bilirubin 0.6, Aspartate Amino Transf (AST/SGOT) 13, Alanine Aminotransferase (ALT/SGPT) 10, Alkaline Phosphatase 62, Total Protein 6.2, Albumin 3.6 08/21/21 11:21: Glucometer 345 08/21/21 15:38: Glucometer 462 08/21/21 20:02: Glucometer 398 08/22/21 04:20: White Blood Count 10.8, Red Blood Count 3.24, Hemoglobin 10.6, Hematocrit 31, Mean Corpuscular Volume 94, Mean Corpuscular Hemoglobin 33, Mean Corpuscular Hemoglobin Concent 35, Red Cell Distribution Width 12.8, Platelet Count 141, Mean Platelet Volume 9.2, Immature Granulocyte % (Auto) 1, Neutrophils (%) (Auto) 83, Lymphocytes (%) (Auto) 11, Monocytes (%) (Auto) 5, Eosinophils (%) (Auto) 0, Basophils (%) (Auto) 0, Neutrophils # (Auto) 8.9, Lymphocytes # (Auto) 1.2, Monocytes # (Auto) 0.6, Eosinophils # (Auto) 0.0, Basophils # (Auto) 0.0, Immature Granulocyte # (Auto) 0.1, Sodium Level 138, Potassium Level 4.2, Chloride Level 108, Carbon Dioxide Level 19, Anion Gap 11, Blood Urea Nitrogen 33, Creatinine 1.19, Estimat Glomerular Filtration Rate 59, BUN/Creatinine Ratio 28, Glucose Level 111, Calcium Level 8.3, Corrected Calcium 8.7, Total Bilirubin 0.7, Aspartate Amino Transf (AST/SGOT) 14, Alanine Aminotransferase (ALT/SGPT) 10, Alkaline Phosphatase 50, Total Protein 5.9, Albumin 3.5 11/5/21 05:43: Glucometer 135 Discharge Home Medications: Active Scripts Active Tessalon Perles (Benzonatate) 100 Mg Capsule 200 Mg PO TID Zyprexa (Olanzapine) 5 Mg Tablet 5 Mg PO HS Risperdal (Risperidone) 0.5 Mg Tablet 0.5 Mg PO BID PRN Prednisone 10 Mg Tab.ds.pk 10 Mg PO DAILY Take 2 tabs(40mg)daily,decrease by 1 tab(10MG)daily. Azithromycin 250 Mg Tablet 250 Mg PO DAILY Novolog Flexpen (Insulin Aspart) 300 Units/3 Ml Solution 4 Units SQ AC 7 Days Levemir (Insulin Determir) 1,000 Units/10 Ml Soln 15 Unit SQ HS 7 Days Acidophilus-Pectin Capsule (Lactobacillus Acidophilus/Pect) 1 Each Capsule 2 Each PO TIDWM Hydrocodone-Chlorphen ER Susp (Hydrocodone/Chlorphen P-Stirex) 473 Ml Priya.er.12h 5 Ml PO Q12HR Albuterol Sulfate 2.5 Mg/3 Ml Vial.neb 2.5 Mg INH RTQID Advair 250-50 Diskus (Fluticasone/Salmeterol) 1 Each Blst.w.dev 1 Puff IH DAILY Reported Atorvastatin Calcium 20 Mg Tablet 20 Mg PO DAILY Loratadine 10 Mg Tablet 10 Mg PO DAILY Montelukast Sodium 10 Mg Tablet 10 Mg PO HS Aspirin EC (Aspirin) 81 Mg Tablet.dr 81 Mg PO DAILY Galantamine HBr 8 Mg Tablet 4 Mg PO BID TAKES 1/2 (8MG) TABLET Entresto 24 mg-26 mg Tablet (Sacubitril/Valsartan) 1 Each Tablet 1 Tab PO BID Carvedilol 3.125 Mg Tablet 3.125 Mg PO BID Instructions to patient/family Please see electronic discharge instructions given to patient. Diagnosis/Problems Diagnosis/Problems (1) COPD with acute exacerbation Status: Resolved Resolution Date/Time: 06/24/19 @ 07:04 ADALBERTO ARENAS DO Aug 22, 2021 09:16
[2021-08-22 10:20] VITALS: BP 133/74
--- NOTE | 2021-08-22 13:16 | Progress Note ---
RUPA DONG MED STUDENT 08/22/21 1316: Progress Note Hospital course: Joseph was admitted to ICU on 08/20/21 for acute COPD exacerbation. He reported a productive cough. CXR revealed clear, hyperinflated lungs. Pt was treated with cefepime and methylprednisolone. His cough resolved by the 2nd day and he was transferred to 4th floor. His blood sugars were initially uncontrolled, reaching up to 462 on the 2nd day, but were brought down to 135 by time of discharge through insulin management. In the morning of 08/22/2011, he had accident where he lost balance scraped his R forearm when trying to get out of bed; the scrape was relatively superficial and was dressed by the nurse. No other acute events/issues during his stay. No questions/concerns at time of discharge. ROSALINDA ARENAS DO 08/23/21 0550: Supervisory-Addendum Brief Verification & Attestation Participated in pt care: history, MDM, physical Personally performed: exam, history, MDM, supervision of care Care discussed with: Medical Student Procedures: n/a Results interpretation: Verified all documentation Verification and Attestation of Medical Student E/M Service A medical student performed and documented this service in my presence. I reviewed and verified all information documented by the medical student and made modifications to such information, when appropriate. I personally performed the physical exam and medical decision making. Rosalinda Arenas, Aug 23, 2021,05:50 RUPA DONG MED STUDENT Aug 22, 2021 13:16 ROSALINDA ARENAS DO Aug 23, 2021 05:50
== END 2021-08-22 09:57 | disposition home or self-care (01) ==
LOC: ICU 19:21 → 4TH 08-21 15:56
PROVIDERS: ADMIT Internal Medicine; ATTEND Internal Medicine
DX: J44.1 Chronic obstructive pulmonary disease with (acute) exacerbation (principal); J40 Bronchitis, not specified as acute or chronic; I25.10 Atherosclerotic heart disease of native coronary artery without angina pectoris; E78.00 Pure hypercholesterolemia, unspecified; I48.91 Unspecified atrial fibrillation; I12.9 Hypertensive chronic kidney disease with stage 1 through stage 4 chronic kidney disease, or unspecified chronic kidney disease; E11.22 Type 2 diabetes mellitus with diabetic chronic kidney disease; E11.36 Type 2 diabetes mellitus with diabetic cataract; N18.30 Chronic kidney disease, stage 3 unspecified; K21.9 Gastro-esophageal reflux disease without esophagitis; M19.90 Unspecified osteoarthritis, unspecified site; E78.5 Hyperlipidemia, unspecified; I25.5 Ischemic cardiomyopathy; F01.50 Vascular dementia, unspecified severity, without behavioral disturbance, psychotic disturbance, mood disturbance, and anxiety; C91.01 Acute lymphoblastic leukemia, in remission; Z79.899 Other long term (current) drug therapy; Z79.82 Long term (current) use of aspirin; Z87.891 Personal history of nicotine dependence; Z95.1 Presence of aortocoronary bypass graft; Z79.4 Long term (current) use of insulin
CPT/HCPCS: 71045; 80053 ×3; 82947 ×3; 83605; 83880; 84145; 85025 ×3; 87040; 94640 ×6; 94760; G0378; G0379; 36415

== ENCOUNTER → 2021-08-26 | Outpatient (CLI) | payer MEDICARE ==
[~2021-08-26] MED LIST changes: +ATOR20TA66 PO; +BENZ100C18 PO; +HYDR473S61 PO; +INSU100V5 SQ; +LACT1CAP7 PO; +OLAN5TAB3 PO; +RISP0.5T21 PO
== END ==
LOC: WOUNDCARE 13:03
PROVIDERS: ATTEND Family Medicine
DX: S51.801A Unspecified open wound of right forearm, initial encounter (principal); E11.622 Type 2 diabetes mellitus with other skin ulcer; E11.65 Type 2 diabetes mellitus with hyperglycemia
CPT/HCPCS: 99212

== ENCOUNTER → 2021-09-01 | Outpatient (CLI) | payer MEDICARE | LOC: WOUNDCARE 08:44 | PROVIDERS: ATTEND Family Medicine | DX: S51.801A Unspecified open wound of right forearm, initial encounter (principal); E11.622 Type 2 diabetes mellitus with other skin ulcer; E11.65 Type 2 diabetes mellitus with hyperglycemia; E11.52 Type 2 diabetes mellitus with diabetic peripheral angiopathy with gangrene; X58.XXXA Exposure to other specified factors, initial encounter | CPT/HCPCS: 99213 ==

== ENCOUNTER → 2021-09-03 | Outpatient (RCR) | payer MEDICARE | END | disposition home or self-care (01) | LOC: CR3 08-04 14:39 | PROVIDERS: ATTEND Internal Medicine | DX: Z29.8 Encounter for other specified prophylactic measures (principal) ==

== ENCOUNTER → 2021-09-08 | Outpatient (CLI) | payer MEDICARE | LOC: WOUNDCARE 08:51 | PROVIDERS: ATTEND Family Medicine | DX: E11.65 Type 2 diabetes mellitus with hyperglycemia (principal) | CPT/HCPCS: 99212 ==

== ENCOUNTER 2021-10-01 09:20 | Outpatient (RCR) | payer MEDICARE ==
[2021-07-09 10:11] LABS: HEMOGLOBIN 11.1 g/dL (13.3-17.7)
[2021-07-09 10:13] LABS: BASOPHILS % (AUTO) 0 % (0-10); EOSINOPHILS # (AUTO) 0.2 10^3/uL (0.0-0.3); EOSINOPHILS % (AUTO) 4 % (0-10); HEMATOCRIT 32 % (40-54); LYMPHOCYTES # (AUTO) 1.4 10^3/uL (1.0-4.0); LYMPHOCYTES % (AUTO) 31 % (12-44); MEAN CORPUSCULAR HEMOGLOBIN 33 pg (25-34); MEAN CORPUSCULAR HGB CONC 35 g/dL (32-36); MEAN CORPUSCULAR VOLUME 96 fL (80-99); MEAN PLATELET VOLUME 9.3 fL (9.0-12.2); MONOCYTES # (AUTO) 0.4 10^3/uL (0.0-1.0); MONOCYTES % (AUTO) 10 % (0-12); NEUTROPHILS # (AUTO) 2.4 10^3/uL (1.8-7.8); NEUTROPHILS % (AUTO) 54 % (42-75); PLATELET COUNT 144 10^3/uL (130-400); WHITE BLOOD COUNT 4.5 10^3/uL (4.3-11.0)
[2021-08-20 11:17] LABS: ABSOLUTE RETIC # 49 10e9/uL (24-90); BASOPHILS % (AUTO) 0 % (0-10); EOSINOPHILS # (AUTO) 0.1 10^3/uL (0.0-0.3); EOSINOPHILS % (AUTO) 2 % (0-10); HEMATOCRIT 33 % (40-54); HEMOGLOBIN 11.5 g/dL (13.3-17.7); LYMPHOCYTES # (AUTO) 1.9 10^3/uL (1.0-4.0); LYMPHOCYTES % (AUTO) 34 % (12-44); MEAN CORPUSCULAR HEMOGLOBIN 33 pg (25-34); MEAN CORPUSCULAR HGB CONC 35 g/dL (32-36); MEAN CORPUSCULAR VOLUME 95 fL (80-99); MONOCYTES # (AUTO) 0.6 10^3/uL (0.0-1.0); MONOCYTES % (AUTO) 10 % (0-12); NEUTROPHILS # (AUTO) 2.9 10^3/uL (1.8-7.8); NEUTROPHILS % (AUTO) 53 % (42-75); PLATELET COUNT 134 10^3/uL (130-400); RETICULOCYTE % 1.41 % (0.50-2.40); WHITE BLOOD COUNT 5.6 10^3/uL (4.3-11.0)
[2021-08-20 11:39] LABS: ALBUMIN 3.8 GM/DL (3.2-4.5); BILIRUBIN,TOTAL 0.6 MG/DL (0.1-1.0); CALCIUM 8.7 MG/DL (8.5-10.1); CREATININE SERUM 1.17 MG/DL (0.60-1.30); POTASSIUM 4.5 MMOL/L (3.6-5.0); TOTAL PROTEIN 6.7 GM/DL (6.4-8.2)
[~2021-10-01 09:20] MED LIST changes: -LISI-729 PO; +LISI5TAB20 PO; +MONT-40 PO; -MONT10TA32 PO
== END 2021-10-07 | disposition home or self-care (01) ==
LOC: ONC 09:20
PROVIDERS: ATTEND Internal Medicine Hematology & Oncology
DX: Z45.2 Encounter for adjustment and management of vascular access device (principal); C91.00 Acute lymphoblastic leukemia not having achieved remission; I25.10 Atherosclerotic heart disease of native coronary artery without angina pectoris; I10 Essential (primary) hypertension; E11.43 Type 2 diabetes mellitus with diabetic autonomic (poly)neuropathy; E78.5 Hyperlipidemia, unspecified; S72.002D Fracture of unspecified part of neck of left femur, subsequent encounter for closed fracture with routine healing; W19.XXXD Unspecified fall, subsequent encounter; Z79.4 Long term (current) use of insulin; Z79.899 Other long term (current) drug therapy; Z92.21 Personal history of antineoplastic chemotherapy
CPT/HCPCS: 36591; 80053; 82607; 82728; 82746; 83540; 83550; 83615; 85025; 85045; 96523

== ENCOUNTER 2021-10-03 06:18 | Outpatient (RCR) | payer MEDICARE | END 2021-10-05 | disposition home or self-care (01) | LOC: CR3 06:18 | PROVIDERS: ATTEND Internal Medicine | DX: Z29.8 Encounter for other specified prophylactic measures (principal) ==

== ENCOUNTER → 2021-11-13 | Outpatient (CLI) | payer MEDICARE | LOC: EDSTATUS 10-08 10:15 → ONC 10:15 | PROVIDERS: ATTEND Internal Medicine Hematology & Oncology | DX: Z45.2 Encounter for adjustment and management of vascular access device (principal); C91.00 Acute lymphoblastic leukemia not having achieved remission; I25.10 Atherosclerotic heart disease of native coronary artery without angina pectoris; I11.9 Hypertensive heart disease without heart failure; I50.22 Chronic systolic (congestive) heart failure; D50.9 Iron deficiency anemia, unspecified; J44.9 Chronic obstructive pulmonary disease, unspecified; E78.2 Mixed hyperlipidemia; E11.9 Type 2 diabetes mellitus without complications; S72.002D Fracture of unspecified part of neck of left femur, subsequent encounter for closed fracture with routine healing; Z79.4 Long term (current) use of insulin; Z79.899 Other long term (current) drug therapy; Z92.21 Personal history of antineoplastic chemotherapy; W19.XXXD Unspecified fall, subsequent encounter | CPT/HCPCS: 96523 ==

== ENCOUNTER 2021-11-14 06:08 | Outpatient (RCR) | payer MEDICARE | END 2021-11-16 | disposition home or self-care (01) | LOC: CR3 06:08 | PROVIDERS: ATTEND Internal Medicine | DX: Z29.8 Encounter for other specified prophylactic measures (principal) ==

== ENCOUNTER → 2021-12-17 | Outpatient (RCR) | payer MEDICARE | END | disposition home or self-care (01) | LOC: CR3 11-17 06:44 | PROVIDERS: ATTEND Internal Medicine | DX: Z29.8 Encounter for other specified prophylactic measures (principal) ==

== ENCOUNTER 2022-02-13 06:07 | Outpatient (RCR) | payer MEDICARE ==
[~2022-02-13 06:07] MED LIST changes: -FEXO-46 PO; +NF-ALLE180 PO
== END 2022-02-14 | disposition home or self-care (01) ==
LOC: CR3 06:07
PROVIDERS: ATTEND Internal Medicine
DX: Z29.8 Encounter for other specified prophylactic measures (principal)

== ENCOUNTER 2022-04-15 06:15 | Outpatient (RCR) | payer MEDICARE ==
[~2022-04-15 06:15] MED LIST changes: +NF-CRES10T PO; -ROSU10TA22 PO
== END 2022-04-16 | disposition home or self-care (01) ==
LOC: CR3 06:15
PROVIDERS: ATTEND Internal Medicine
DX: Z29.8 Encounter for other specified prophylactic measures (principal)

== ENCOUNTER 2022-06-15 06:09 | Outpatient (RCR) | payer MEDICARE ==
[~2022-06-15 06:09] MED LIST changes: -NORM2DIS3 IV; -NORM2DIS3 IVF; +NORM2DIS8 IV; +NORM2DIS8 IVF
== END 2022-06-16 | disposition home or self-care (01) ==
LOC: CR3 06:09
PROVIDERS: ATTEND Internal Medicine
DX: Z29.8 Encounter for other specified prophylactic measures (principal)

== ENCOUNTER → 2022-07-13 | Outpatient (CLI) | payer MEDICARE ==
[2022-07-13 13:52] LABS: BASOPHILS % (AUTO) 0 % (0-10); EOSINOPHILS # (AUTO) 0.1 10^3/uL (0.0-0.3); EOSINOPHILS % (AUTO) 3 % (0-10); HEMATOCRIT 33 % (40-54); HEMOGLOBIN 11.5 g/dL (13.3-17.7); LYMPHOCYTES # (AUTO) 1.5 10^3/uL (1.0-4.0); LYMPHOCYTES % (AUTO) 29 % (12-44); MEAN CORPUSCULAR HEMOGLOBIN 32 pg (25-34); MEAN CORPUSCULAR HGB CONC 35 g/dL (32-36); MEAN CORPUSCULAR VOLUME 93 fL (80-99); MEAN PLATELET VOLUME 8.9 fL (9.0-12.2); MONOCYTES # (AUTO) 0.5 10^3/uL (0.0-1.0); MONOCYTES % (AUTO) 9 % (0-12); NEUTROPHILS # (AUTO) 2.9 10^3/uL (1.8-7.8); NEUTROPHILS % (AUTO) 58 % (42-75); PLATELET COUNT 149 10^3/uL (130-400)
[2022-07-13 14:02] LABS: ALBUMIN 3.8 GM/DL (3.2-4.5)
[2022-07-13 14:04] LABS: CALCIUM 8.9 MG/DL (8.5-10.1)
[2022-07-13 14:05] LABS: TOTAL PROTEIN 6.5 GM/DL (6.4-8.2)
[2022-07-13 14:07] LABS: BILIRUBIN,TOTAL 0.5 MG/DL (0.1-1.0)
[2022-07-13 14:09] LABS: CREATININE SERUM 1.1 MG/DL (0.60-1.30)
[2022-07-13 14:13] LABS: ERYTHROCYTE SEDIMENTATION RATE 31 MM/HR (0-30)
--- NOTE | 2022-07-13 15:22 | Diagnostic Imaging Report ---
EXAMINATION: Chest 2 view HISTORY: COUGH COMPARISON: 10/26/2018 FINDINGS: Heart size and pulmonary vasculature are normal. Surgical changes from CABG. A right-sided portacatheter is unchanged. The lungs are clear without consolidation, pleural effusion, or pneumothorax. Degenerative changes of the thoracic spine. Osseous structures are otherwise intact. IMPRESSION: 1. No acute radiographic abnormality in the chest. Dictated by: Dictated on workstation # [id number]
== END ==
LOC: RAD 13:20
PROVIDERS: ATTEND Internal Medicine
DX: R05.9 Cough, unspecified (principal)
CPT/HCPCS: 36415; 71046; 80053; 83605; 84145; 85025; 85652; 87636

== ENCOUNTER → 2022-07-17 | Outpatient (RCR) | payer MEDICARE | END | disposition home or self-care (01) | LOC: CR3 06-17 06:11 | PROVIDERS: ATTEND Internal Medicine | DX: Z29.8 Encounter for other specified prophylactic measures (principal) ==

== ENCOUNTER 2022-09-14 06:35 | Outpatient (RCR) | payer MEDICARE | END 2022-09-16 | disposition home or self-care (01) | LOC: CR3 06:35 | PROVIDERS: ATTEND Internal Medicine | DX: Z29.8 Encounter for other specified prophylactic measures (principal) ==

== ENCOUNTER → 2022-09-16 | Outpatient (CLI) | payer MEDICARE | LOC: CARD 09:50 | PROVIDERS: ATTEND Internal Medicine Cardiovascular Disease | DX: I11.9 Hypertensive heart disease without heart failure (principal) | CPT/HCPCS: 93306 ==

== ENCOUNTER → 2022-11-16 | Outpatient (RCR) | payer MEDICARE | END | disposition home or self-care (01) | LOC: CR3 09-18 06:32 | PROVIDERS: ATTEND Internal Medicine | DX: Z29.8 Encounter for other specified prophylactic measures (principal) ==

== ENCOUNTER 2023-01-13 06:16 | Outpatient (RCR) | payer MEDICARE | END 2023-01-14 | disposition home or self-care (01) | LOC: CR3 06:16 | PROVIDERS: ATTEND Internal Medicine | DX: Z29.8 Encounter for other specified prophylactic measures (principal) ==

== ENCOUNTER 2023-02-12 06:52 | Outpatient (RCR) | payer MEDICARE | END 2023-02-14 | disposition home or self-care (01) | LOC: CR3 06:52 | PROVIDERS: ATTEND Internal Medicine | DX: Z29.8 Encounter for other specified prophylactic measures (principal) ==

== ENCOUNTER → 2023-04-16 | Outpatient (RCR) | payer MEDICARE | END | disposition home or self-care (01) | LOC: CR3 02-15 06:52 | PROVIDERS: ATTEND Internal Medicine | DX: Z29.8 Encounter for other specified prophylactic measures (principal) ==

== ENCOUNTER → 2023-06-16 | Outpatient (RCR) | payer MEDICARE | END | disposition home or self-care (01) | LOC: CR3 04-21 06:18 | PROVIDERS: ATTEND Internal Medicine | DX: Z29.8 Encounter for other specified prophylactic measures (principal) ==

== ENCOUNTER → 2023-06-16 | Outpatient (CLI) | payer MEDICARE ==
[~2023-06-16] MED LIST changes: +ALB0.5V INH; +CATHETER FLUSH 10 ML SYR IVP PRN; +INSU100I88 SQ
== END ==
LOC: CARD 11:15
PROVIDERS: ATTEND Physician Assistant
DX: I65.29 Occlusion and stenosis of unspecified carotid artery (principal); Z53.9 Procedure and treatment not carried out, unspecified reason

== ENCOUNTER → 2023-06-23 | Outpatient (CLI) | payer MEDICARE ==
[~2023-06-23] MED LIST changes: -ALB0.5V INH; -INSU100I88 SQ; +REGADENOSON 0.4 MG/5 ML SYR IV ONE
[2023-06-23 13:26] VITALS: BP 146/80
--- NOTE | 2023-06-23 14:51 | Cardiology Stress Test Report ---
Stress Test Report Date of Procedure/Referring: Date of Procedure: Jun 23, 2023 PCP Rosalinda Watts DO Admitting Physician Admitting Physician: Attending Physician: Tavia Tang Indications: CAD Baseline Heart Rate: 59 Baseline Blood Pressure: Blood Pressure Systolic: 146 Blood Pressure Diastolic: 80 Baseline Vitals Vital Signs Date Time Temp Pulse Resp B/P (MAP) Pulse Ox O2 Delivery O2 Flow Rate FiO2 06/23/23 13:26 75 146/80 (102) Baseline EKG: Baseline EKG: RBBB Summary After explaining the procedure to the patient, he signed a consent and then brought to the stress nuclear laboratory. Patient received 0.4 mg Lexiscan for stress test, ECG, heart rate and blood pressure were monitored continuously. Resting and stress dose of radio tracer were injected, imaging was acquired and reviewed in short axis, horizontal long axis and vertical long axis views. TID: 1.19 SSS: 20 SDS: 7 EF: 41 Patient tolerated Lexiscan well Baseline right bundle branch block persisted during test Fixed defect involving the basal to mid anterior wall and anterior lateral wall with reversible ischemia involving the anterior apical segment and apex and inferior apical segment Prominent left ventricle with diffuse hypokinesia more pronounced on the anterior wall and apex, ejection fraction 41% Copy Copies To 1: ROSALINDA WATTS BASHAR J MD Jun 23, 2023 14:51
== END ==
LOC: CARD 11:22
PROVIDERS: ATTEND Physician Assistant
DX: I45.10 Unspecified right bundle-branch block (principal); I25.89 Other forms of chronic ischemic heart disease; I51.89 Other ill-defined heart diseases
CPT/HCPCS: 78452; 93017; A9502

== ENCOUNTER 2023-08-13 06:21 | Outpatient (RCR) | payer MEDICARE ==
[~2023-08-13 06:21] MED LIST changes: +ALB0.5V INH; -CATHETER FLUSH 10 ML SYR IVP PRN; +INSU100I88 SQ; -REGADENOSON 0.4 MG/5 ML SYR IV ONE
== END 2023-08-16 | disposition home or self-care (01) ==
LOC: CR3 06:21
PROVIDERS: ATTEND Internal Medicine
DX: Z01.89 Encounter for other specified special examinations (principal)